=== PATIENT | male | born 1945 | race Caucasian/White ===

== ENCOUNTER → 2017-11-05 | Outpatient (CLI) | payer MEDICARE ==
[2017-11-05 09:14] LABS: Albumin 3.7 g/dL (3.5-5.0); Calcium 9.6 mg/dL (8.4-10.2); Potassium 4.8 mmol/L (3.5-5.1); Total Bilirubin 0.5 mg/dL (0.2-1.3); Total Protein 6.7 g/dL (6.3-8.2)
== END | disposition home or self-care (01) ==
LOC: LABWHC1 08:24
PROVIDERS: ATTEND Nurse Practitioner Family
DX: I50.9 Heart failure, unspecified (principal)
CPT/HCPCS: 36415; 80053; 83880

== ENCOUNTER → 2017-11-05 | Outpatient (CLI) | payer MEDICARE ==
[2017-11-05 09:05] LABS: Anisocytosis Slight; Basophils # (A) 0.1 k/uL (0-0.2); Basophils % (A) 1 %; Eosinophils # (A) 0.2 k/uL (0-0.7); Eosinophils % (A) 3 %; HCT 37.2 % (39.0-53.0); HGB 11.7 gm/dL (13.0-17.5); Hypochromasia Moderate; Lymphocytes # (A) 0.8 k/uL (1.0-4.8); Lymphocytes % (A) 13 %; MCH 28.3 pg (25.0-35.0); MCHC 31.3 g/dL (31.0-37.0); MCV 90.3 fL (80.0-100.0); Mean Platelet Volume 8.5; Monocytes # (A) 0.3 k/uL (0-1.0); Monocytes % (A) 6 %; Neutrophils # (A) 4.3 k/uL (1.3-7.7); Neutrophils % (A) 73 %; Platelet Count 254 k/uL (150-450); RBC 4.12 m/uL (4.30-5.90); RDW 17.9 % (11.5-15.5); WBC 5.8 k/uL (3.8-10.6)
== END | disposition home or self-care (01) ==
LOC: LABPAT 08:27
PROVIDERS: ATTEND Internal Medicine Cardiovascular Disease
DX: Z01.812 Encounter for preprocedural laboratory examination (principal); I50.9 Heart failure, unspecified; E78.2 Mixed hyperlipidemia
CPT/HCPCS: 85025

== ENCOUNTER 2017-11-09 07:42 | Day surgery (SDC) | payer MEDICARE ==
[2017-11-03 13:53] VITALS: BMI 24.0
[~2017-11-09 07:42] MED LIST: ALPRAZolam 0.25 MG TAB PO PRN; ASPIRIN 325 MG TAB PO ONE; SODIUM CHLORIDE 0.9% 1,000 ML in EMPTY BAG 1 BAG IV ONE
[2017-11-09 08:32] LABS: Glucose,Whole Blood 92 mg/dL (75-99)
[2017-11-09 08:34] VITALS: PULSE 94; RESP 20; TEMP 97.6
[2017-11-09] MEDS ORDERED: IV FLUID CONTINUATION 950 ML IV ONE (08:55)
[2017-11-09] MEDS ORDERED: MIDAZOLAM 2 MG/2 ML VIAL IVP ONE (09:20)
[2017-11-09] MEDS ORDERED: LIDOCAINE 1% INJ 10MG/ML (20 ML MDV) SQ ONE (09:21)
[2017-11-09] MEDS ORDERED: IOPAMIDOL-370 125ML BTL INJ ONE (09:39)
[2017-11-09] MEDS ORDERED: RX INFO: IV CONTRAST WAS GIVEN 1 EACH MISC MISCELLANE PRN (10:00)
[2017-11-09] MEDS ORDERED: FUROSEMIDE 10 MG/ML 4 ML VIAL IV STA (10:02)
--- NOTE | 2017-11-09 10:08 | CC ---
CARDIAC CATHETERIZATION REPORT DATE OF SERVICE: 11/09/2017. INDICATION: Ischemic cardiomyopathy with new onset congestive heart failure. PROCEDURE NOTE: After obtaining informed consent, left heart catheterization and coronary angiogram were performed via the right femoral artery using standard Esteban catheters. The patient tolerated the procedure well without any obvious immediate complications. A femoral angiogram was performed and decision was made for manual hemostasis. Patient received moderate conscious sedation and total sedation time was 15 minutes. FINDINGS: 1. HEMODYNAMICS: Left ventricular end-diastolic pressure is 31 mm. There is no significant gradient across the aortic valve. 2. LEFT VENTRICULOGRAM: Left ventriculogram is not performed. 3. ANGIOGRAPHIC DATA: Left main coronary artery: Left main coronary artery appears calcified. There is mild to moderate atherosclerotic plaque in the ostial portion. Divides into left anterior descending coronary artery and circumflex coronary artery. Circumflex coronary artery shows a 95% stenosis in the ostial portion. LAD is totally occluded just off to the origin of the large diagonal branch and the diagonal itself shows a 70% stenosis. Right coronary artery is a large dominant vessel that shows diffuse disease. As it bifurcates into PDA and PLV, there is a 70% stenosis and both the PDA and PLV have significant disease. All the vessels are irregular, ectatic, and in places aneurysmal. CONCLUSIONS: 1. Three-vessel coronary artery disease as described above. 2. Severe left ventricular systolic dysfunction based on the echocardiogram, and mitral regurgitation. PLAN: I am going to ask Dr. Borjas, the cardiothoracic surgeon, to evaluate the angiographic data and advise on bypass surgery. If he is a candidate for surgery, then I am going to perform a transesophageal echo to better evaluate the mitral valve. MMODL / IJN: [id number] /
[2017-11-09] MEDS ORDERED: SODIUM CHLORIDE 0.9% 1,000 ML IV SCH (10:45)
[2017-11-09] MEDS ORDERED: METOPROLOL SUCCINATE (ER) 50 MG TAB.ER.24H PO STA (11:04)
[2017-11-09 11:08] LABS: Glucose,Whole Blood 89 mg/dL (75-99)
[2017-11-09] MEDS ORDERED: ACETAMINOPHEN TAB 325 MG TAB PO STA (16:54)
[2017-11-09 17:41] VITALS: BP 124/82
== END 2017-11-09 17:10 | disposition home or self-care (01) ==
LOC: CATHCVL 07:42
PROVIDERS: ATTEND Internal Medicine Cardiovascular Disease
DX: I25.10 Atherosclerotic heart disease of native coronary artery without angina pectoris (principal); I25.84 Coronary atherosclerosis due to calcified coronary lesion; I25.82 Chronic total occlusion of coronary artery; I25.5 Ischemic cardiomyopathy; I34.0 Nonrheumatic mitral (valve) insufficiency; I50.20 Unspecified systolic (congestive) heart failure; Z87.891 Personal history of nicotine dependence; E78.2 Mixed hyperlipidemia; E13.319 Other specified diabetes mellitus with unspecified diabetic retinopathy without macular edema; H54.7 Unspecified visual loss; Z79.899 Other long term (current) drug therapy; Z88.1 Allergy status to other antibiotic agents
CPT/HCPCS: 93458; C1894; C1769; J2250; J1940; J2001; Q9967

== ENCOUNTER 2017-11-10 08:31 | Day surgery (SDC) | payer MEDICARE ==
[2017-11-10] MEDS ORDERED: IV FLUID CONTINUATION 400 ML IV ONE (09:48)
[2017-11-10] MEDS: BENZOCAINE SPRAY 1 CAN MUCOUS MEM ONE ×2 (09:49→09:54)
[2017-11-10] MEDS ORDERED: fentaNYL (PF) 50 MCG/ML 2 ML AMP IV ONE (09:54)
[2017-11-10] MEDS ORDERED: MIDAZOLAM 2 MG/2 ML VIAL IVP ONE (09:54)
[2017-11-10 10:00] LABS: Glucose,Whole Blood 121 mg/dL (75-99)
[2017-11-10] MEDS ORDERED: SODIUM CHLORIDE 0.9% 1,000 ML IV SCH (10:45)
--- NOTE | 2017-11-10 11:15 | ECHOT ---
TRANSESOPHAGEAL ECHOCARDIOGRAM INDICATION: Mitral regurgitation. PROCEDURE NOTE: After obtaining informed consent, transesophageal echocardiogram was performed in left lateral position using an Omni plane probe. Local and IV sedation were obtained, the Xylocaine spray and 1 mg of Versed and 50 mcg of fentanyl. Patient tolerated the procedure well without any obvious immediate complications. FINDINGS: 1. Mitral valve appears anatomically normal. Mitral anulus is dilated. There is poor coaptation of the mitral leaflets. There is moderate predominantly central mitral regurgitation. 2. Left atrium appears enlarged. 3. Right atrium and right ventricle appear mildly enlarged. 4. There is mild tricuspid regurgitation noted. 5. There is a moderate pulmonary hypertension noted. 6. Left ventricle appears dilated with aneurysmal basal inferior wall, severely hypokinetic inferior wall and the septum with mildly hypokinetic anterior wall, lateral wall is justus well. 7. Aorta shows moderate atherosclerotic changes. 8. Interatrial septum, there is no evidence of vsac-ex-ctmob shunt by color-flow Doppler or bemjq-kh-aymu shunt by agitated saline contrast study. CONCLUSION: 1. Ischemic cardiomyopathy with severe left ventricular systolic dysfunction. Inferior wall and the septum are akinetic. Anterior wall is hypokinetic. Lateral wall is justus normally. 2. Moderate central mitral regurgitation. 3. Moderate pulmonary hypertension. PLAN: I am going to ask Dr. Borajs to see the patient to decide on his bypass surgery with mitral valve repair. MMODL / IJN: [id number] /
[2017-11-10 12:21] VITALS: PULSE 84
[2017-11-10 14:52] LABS: Anisocytosis Slight; Basophils % (A) 0 %; Eosinophils % (A) 0 %; HCT 37.1 % (39.0-53.0); HGB 11.5 gm/dL (13.0-17.5); Hypochromasia Moderate; Lymphocytes # (A) 0.5 k/uL (1.0-4.8); Lymphocytes % (A) 6 %; MCH 27.7 pg (25.0-35.0); MCHC 30.9 g/dL (31.0-37.0); MCV 89.6 fL (80.0-100.0); Mean Platelet Volume 8.8; Monocytes # (A) 0.3 k/uL (0-1.0); Monocytes % (A) 4 %; Neutrophils # (A) 6.8 k/uL (1.3-7.7); Neutrophils % (A) 88 %; Platelet Count 218 k/uL (150-450); RBC 4.14 m/uL (4.30-5.90); RDW 17.8 % (11.5-15.5); WBC 7.8 k/uL (3.8-10.6)
[2017-11-10 14:59] LABS: INR 1.2 (<1.2); Partial Thromboplastin Time 25.2 sec (22.0-30.0); Prothrombin Time 11.4 sec (9.0-12.0)
[2017-11-10 15:10] LABS: ALT 28 U/L (21-72); AST 25 U/L (17-59); Albumin 3.6 g/dL (3.5-5.0); Alkaline Phosphatase 68 U/L (38-126); Anion Gap 9 mmol/L; Blood Urea Nitrogen 26 mg/dL (9-20); Carbon Dioxide 28 mmol/L (22-30); Chloride 103 mmol/L (98-107); Cholesterol 206 mg/dL (<200); Glucose 286 mg/dL (74-99); HDL Cholesterol 58 mg/dL (40-60); LDL Cholesterol,Calculated 136 mg/dL (0-99); Magnesium 1.6 mg/dL (1.6-2.3); Potassium 5.2 mmol/L (3.5-5.1); Sodium 140 mmol/L (137-145); Total Bilirubin 0.5 mg/dL (0.2-1.3); Total Protein 6.5 g/dL (6.3-8.2); Triglycerides 61 mg/dL (<150)
[2017-11-10 16:13] VITALS: BP 117/72
[2017-11-10 16:20] LABS: Appearance,Urine Clear (Clear); Bacteria,Urine Rare /hpf; Bilirubin,Urine Negative (Negative); Blood,Urine Small (Negative); Color,Urine Yellow; Glucose,Urine (UA) 3+ (Negative); Ketones,Urine Negative (Negative); Leukocyte Esterase,Urine Negative (Negative); Mucus,Urine Rare /hpf; Nitrite,Urine Negative (Negative); PH, Urine 5.5 (5.0-8.0); Protein,Urine 2+ (Negative); RBC,Urine 8 /hpf (0-5); Specific Gravity,Urine 1.026 (1.001-1.035); Urobilinogen,Urine <2.0 mg/dL (<2.0); WBC,Urine 2 /hpf (0-5)
--- NOTE | 2017-11-10 17:13 | P.GSCN ---
History of Present Illness Consult date: 11/10/17 Reason for Consult: Severe coronary artery disease, mitral regurgitation, surgical recommendations. Requesting physician: Billy Hogan History of present illness: This is a 72-year-old patient follows with Dr. Spann on an outpatient basis. He has a previous medical history of diabetes, hyperlipidemia, previous tobacco dependence and recent new onset congestive heart failure. He presented to his primary care physician's office with complaints of increasing shortness of breath with exertion which was relieved with rest as well as lower extremity edema. He denied any chest pain, palpitations, syncopal episodes, peripheral artery disease type symptoms, or stroke-like symptoms. This has been going on for approximately the last 6 months but has gotten progressively worse lately. Prior to this this patient was a very active gentleman. He was referred to Dr. Hogan from cardiology [facility] and was recommended to undergo heart catheterization and echocardiography. His catheterization completed yesterday demonstrated left anterior descending artery with total occlusion at the origin of the large diagonal branch with the diagonal artery demonstrating 70% stenosis , circumflex artery with 95% stenosis in the ostial portion, diffuse disease in the right coronary artery with 70% stenosis at the bifurcation of the PDA and PLV, both of which have significant disease. Transesophageal echocardiogram completed this morning demonstrated ischemic cardiomyopathy with severe left ventricular systolic dysfunction, akinetic inferior wall and septum, hypokinetic anterior wall, dilation the mitral annulus with poor coaptation of the mitral leaflets with moderate central mitral regurgitation, and moderate pulmonary hypertension. Due to the patient's symptoms and study results Dr. Borjas from cardiothoracic surgery was consulted regarding surgical recommendations. Review of Systems Review of systems was completed and was negative except as noted. - Cardiovascular Reports dyspnea on exertion, Reports leg edema, Reports paroxysmal nocturnal dyspnea, Reports shortness of breath Past Medical History Past Medical History: Coronary Artery Disease (CAD), Heart Failure, Diabetes Mellitus, Hyperlipidemia, Myocardial Infarction (CO) Last Myocardial Infarction Date:: PER ECHO POSS UNKNOWN DATE -CO History of Any Multi-Drug Resistant Organisms: None Reported Past Surgical History: Orthopedic Surgery Additional Past Surgical History / Comment(s): CORNEAL GRAFT LEFT EYE, LITHOTRIPSY , LEFT KNEE SURGERY-ARTHROSCOPIC Past Anesthesia/Blood Transfusion Reactions: No Reported Reaction Past Psychological History: No Psychological Hx Reported Smoking Status: Former smoker Past Alcohol Use History: None Reported Past Drug Use History: None Reported - Past Family History Mother Family Medical History: No Reported History Medications and Allergies Home Medications Medication Instructions Recorded Confirmed Type Atorvastatin [Lipitor] 10 mg PO DAILY 11/03/17 11/10/17 History Erythromycin Ophth Oint [Romycin 1 applic LEFT EYE HS 11/03/17 11/10/17 History Ophth Oint] Gatifloxacin/Prednisolone 1 drop LEFT EYE HS 11/03/17 11/10/17 History [prednisoLONE 1%-Gatiflox 0.5%] Glucosamine/MSM/Chrond/D3/Bosw 1 each PO DAILY 11/03/17 11/10/17 History [Xvobqspwxhp-Slnhoa-KJI-D3 Cplt] Lisinopril [Zestril] 5 mg PO 1500 11/03/17 11/10/17 History Multivitamin [Men's Multi-Vitamin] 1 each PO DAILY 11/03/17 11/10/17 History Naproxen Sodium [Aleve] 440 mg PO DAILY 11/03/17 11/10/17 History diphenhydrAMINE [Benadryl] 25 mg PO DAILY 11/03/17 11/10/17 History Furosemide [Lasix] 40 mg PO DAILY #30 tablet 11/09/17 11/10/17 Rx Metoprolol Succinate (ER) [Toprol 50 mg PO DAILY #30 tab 11/09/17 11/10/17 Rx Xl] glipiZIDE XL [Glucotrol Xl] 5 mg PO DAILY #2 tab 11/09/17 11/10/17 Rx Allergies Allergy/AdvReac Type Severity Reaction Status Date / Time clindamycin Allergy Rash/Hives Verified 11/03/17 13:27 Surgical - Exam Vital Signs Pulse BP Pulse Ox 97 150/89 95 11/10/17 09:30 11/10/17 09:30 11/10/17 09:30 - General well developed, well nourished, no distress, no pain - Eyes Right pupil round, reactive to light and accommodation. Left eye with corneal graft. normal ocular movement left: surgical pupil - ENT no hearing loss - Neck no masses, no bruits, trachea midline - Respiratory Lungs sounds clear bilaterally. Respirations even, nonlabored. Currently on room air with oxygen saturation 94%. No chest wall deformities. - Cardiovascular S1, S2 present. Regular rate and rhythm, sinus rhythm on telemetry. Palpable peripheral pulses bilaterally. No edema present. No calf pain or tenderness noted. No varicosities. - Abdomen Abdomen: soft, non tender, bowel sounds - Genitourinary Deferred - Rectum Deferred - Integumentary no rash, no growths - Neurologic normal coordination, normal sensation - Musculoskeletal normal gait, normal posture - Psychiatric oriented to time, oriented to person, oriented to place, speech is normal, memory intact Results - Labs 11/10/17 14:36 11/10/17 14:36 Abnormal Lab Results - Last 24 Hours (Table) 11/10/17 11/10/17 11/10/17 Range/Units 09:30 14:36 14:36 RBC 4.14 L (4.30-5.90) m/uL Hgb 11.5 L (13.0-17.5) gm/dL Hct 37.1 L (39.0-53.0) % MCHC 30.9 L (31.0-37.0) g/dL RDW 17.8 H (11.5-15.5) % Lymphocytes # 0.5 L (1.0-4.8) k/uL INR 1.2 H (<1.2) Potassium (3.5-5.1) mmol/L BUN (9-20) mg/dL Glucose (74-99) mg/dL POC Glucose (mg/dL) 121 H (75-99) mg/dL Cholesterol (<200) mg/dL LDL Cholesterol, Calc (0-99) mg/dL Urine Protein (Negative) Urine Glucose (UA) (Negative) Urine Blood (Negative) Urine RBC (0-5) /hpf Urine Bacteria (None) /hpf Urine Mucus (None) /hpf Crossmatch 11/10/17 11/10/17 11/10/17 Range/Units 14:36 14:36 16:00 RBC (4.30-5.90) m/uL Hgb (13.0-17.5) gm/dL Hct (39.0-53.0) % MCHC (31.0-37.0) g/dL RDW (11.5-15.5) % Lymphocytes # (1.0-4.8) k/uL INR (<1.2) Potassium 5.2 H (3.5-5.1) mmol/L BUN 26 H (9-20) mg/dL Glucose 286 H (74-99) mg/dL POC Glucose (mg/dL) (75-99) mg/dL Cholesterol 206 H (<200) mg/dL LDL Cholesterol, Calc 136 H (0-99) mg/dL Urine Protein 2+ H (Negative) Urine Glucose (UA) 3+ H (Negative) Urine Blood Small H (Negative) Urine RBC 8 H (0-5) /hpf Urine Bacteria Rare H (None) /hpf Urine Mucus Rare H (None) /hpf Crossmatch See Detail Diabetes panel 11/10/17 Range/Units 14:36 Sodium 140 (137-145) mmol/L Potassium 5.2 H (3.5-5.1) mmol/L Chloride 103 (98-107) mmol/L Carbon Dioxide 28 (22-30) mmol/L BUN 26 H (9-20) mg/dL Creatinine 0.90 (0.66-1.25) mg/dL Glucose 286 H (74-99) mg/dL Calcium 9.0 (8.4-10.2) mg/dL AST 25 (17-59) U/L ALT 28 (21-72) U/L Alkaline Phosphatase 68 (38-126) U/L Total Protein 6.5 (6.3-8.2) g/dL Albumin 3.6 (3.5-5.0) g/dL Triglycerides 61 (<150) mg/dL HDL Cholesterol 58 (40-60) mg/dL Thyroid panel 11/10/17 Range/Units 14:36 TSH 1.690 (0.465-4.680) mIU/L Calcium panel 11/10/17 Range/Units 14:36 Calcium 9.0 (8.4-10.2) mg/dL Albumin 3.6 (3.5-5.0) g/dL Pituitary panel 11/10/17 Range/Units 14:36 Sodium 140 (137-145) mmol/L Potassium 5.2 H (3.5-5.1) mmol/L Chloride 103 (98-107) mmol/L Carbon Dioxide 28 (22-30) mmol/L BUN 26 H (9-20) mg/dL Creatinine 0.90 (0.66-1.25) mg/dL Glucose 286 H (74-99) mg/dL Calcium 9.0 (8.4-10.2) mg/dL TSH 1.690 (0.465-4.680) mIU/L Adrenal panel 11/10/17 Range/Units 14:36 Sodium 140 (137-145) mmol/L Potassium 5.2 H (3.5-5.1) mmol/L Chloride 103 (98-107) mmol/L Carbon Dioxide 28 (22-30) mmol/L BUN 26 H (9-20) mg/dL Creatinine 0.90 (0.66-1.25) mg/dL Glucose 286 H (74-99) mg/dL Calcium 9.0 (8.4-10.2) mg/dL Total Bilirubin 0.5 (0.2-1.3) mg/dL AST 25 (17-59) U/L ALT 28 (21-72) U/L Alkaline Phosphatase 68 (38-126) U/L Total Protein 6.5 (6.3-8.2) g/dL Albumin 3.6 (3.5-5.0) g/dL - Imaging Chest x-ray: image reviewed Additional studies: Heart catheterization and echocardiogram films reviewed. Assessment and Plan (1) Diabetes mellitus Current Visit: Yes Status: Chronic Code(s): E11.9 - TYPE 2 DIABETES MELLITUS WITHOUT COMPLICATIONS SNOMED Code(s): 47036884 (2) Hyperlipidemia Current Visit: Yes Status: Chronic Code(s): E78.5 - HYPERLIPIDEMIA, UNSPECIFIED SNOMED Code(s): 66437525 (3) Tobacco dependence in remission Current Visit: No Status: Resolved Code(s): F17.201 - NICOTINE DEPENDENCE, UNSPECIFIED, IN REMISSION SNOMED Code(s): 178613791 (4) Coronary artery disease Current Visit: Yes Status: Chronic Code(s): I25.10 - ATHSCL HEART DISEASE OF TRIBE CORONARY ARTERY W/O ANG PCTRS SNOMED Code(s): 02028899 (5) History of myocardial infarction Current Visit: No Status: Resolved Code(s): I25.2 - OLD MYOCARDIAL INFARCTION SNOMED Code(s): 440172730 (6) Mitral regurgitation Current Visit: Yes Status: Chronic Code(s): I34.0 - NONRHEUMATIC MITRAL ( VALVE) INSUFFICIENCY SNOMED Code(s): 35364453 Plan: The patient was seen and examined at the bedside. Chart/diagnostics were reviewed. Heart catheterization films and echocardiogram films reviewed with Dr. Borjas. Preoperative teaching initiated. Preoperative testing initiated. We recommend aspirin, statin, beta michelle with an increase in his statin dose to 40 mg daily. He may to be discharged to home from the extended stay unit. If possible we would like him to obtain dental clearance. Our plan is for coronary artery bypass grafting surgery, mitral valve repair, and exclusion of the left atrial appendage on November 17 pending the outcome of preoperative testing. Patient will be admitted one day prior by cardiology for placement of preoperative intra-aortic balloon pump. This plan was discussed with the patient and his and they are in agreement. All risks and benefits were explained in detail, all questions were answered, and the patient did consent to surgery. Thank you Dr. Hogan for this consult. We look forward to working with you in the care of your patient. Time with Patient: Greater than 30
--- NOTE | 2017-11-10 17:18 | US ---
EXAMINATION TYPE: US carotid duplex BILAT DATE OF EXAM: 11/10/2017 COMPARISON: NONE CLINICAL HISTORY: 72-year-old male preop cardiac surgery. TECHNIQUE: Carotid duplex ultrasound examination. Indirect Doppler criteria is utilized. FINDINGS: EXAM MEASUREMENTS: RIGHT: Peak Systolic Velocity (PSV) cm/sec ----- Right CCA: 65.0 ----- Right ICA: 63.6 ----- Right ECA: 92.1 ICA/CCA ratio: 1.0 RIGHT: End Diastole cm/sec ----- Right CCA: 17.5 ----- Right ICA: 19.8 ----- Right ECA: 6.2 LEFT: Peak Systolic Velocity (PSV) cm/sec ----- Left CCA: 63.0 ----- Left ICA: 57.6 ----- Left ECA: 106.6 ICA/CCA ratio: 1.0 LEFT: End Diastole cm/sec ----- Left CCA: 14.9 ----- Left ICA: 24.5 ----- Left ECA:9.5 VERTEBRALS (direction of flow): Right Vertebral: to-fro flow Left Vertebral: Antegrade Rhythm: Normal Billing Assistant notes: Mild plaque, no significant velocity elevations. IMPRESSION: 1. No hemodynamically significant stenosis appreciated in either internal carotid artery. 2. Note, to and fro flow within the right vertebral artery. This finding has been described as a michela festation of subclavian steal physiology prior to continuous flow reversal. Consider further clinical workup. Criteria for Assigning % of Stenosis / Diameter reduction (Estimation based on the indirect measurements of the internal carotid artery velocities (ICA PSV). 1. Normal (no stenosis)=ICA PSV < 125 cm/s: ratio < 2.0: ICA EDV<40 cm/s. 2. Less than 50% stenosis=ICA PSV < 125 cm/s: ratio < 2.0: ICA EDV<40 cm/s. 3. 50 to 69% stenosis=ICA PSV of 125 to 230 cm/s: ration 2.0 ? 4.0: ICA EDV 40-100 cm/s. 4. Greater than 70% stenosis to near occlusion= ICA PSV > 230 cm/s: ratio > 4.0: ICA EDV > 100 cm/s. 5. Near occlusion= ICA PSV velocities may be low or undetectable: variable ratio and ICA EDV. 6. Total occlusion=unable to detect flow.
[2017-11-10 19:40] LABS: Hepatitis A Antibody IgM Non-Reactive (Non-Reactive); Hepatitis B Core IgM Non-Reactive (Non-Reactive)
[2017-11-10 20:15] LABS: Hemoglobin A1C 6.5 % (4.0-6.0)
[2017-11-10] MEDS ORDERED: MUPIROCIN 2% OINT 22 GM TUBE NASAL SCH (21:00)
--- NOTE | 2017-11-10 23:42 | XR ---
EXAMINATION TYPE: XR chest 2V DATE OF EXAM: 11/10/2017 COMPARISON: NONE HISTORY: Pre open cardiac surgery TECHNIQUE: Frontal and lateral views of the chest are obtained. FINDINGS: There are small to moderate-sized right greater than left pleural effusions with associate d compressive atelectasis. The cardiac silhouette size is difficult to assess due to silhouetting of heart borders but presumed mildly enlarged. The osseous structures are intact. IMPRESSION: Presumed mild cardiomegaly with small to moderate-sized right greater than left pleural effusions and associated compressive atelectasis.
--- NOTE | 2017-11-16 11:21 | P.VSCSTY ---
Greater Saphenous Vein Mapping This is bilateral lower extremity greater saphenous vein mapping. Date of service 11/10/2017 Vein quality and ultrasound appearance some intimal thickening seen throughout on the right. Also noted on the lower leg on the left.. Vein size groin right 6.5 x 5.2 groin left 7.0 x 4.2 High thigh right 5.0 x 3.6 high thigh left 4.8 x 3.4 Mid thigh right 4.7 x 3.4 mid thigh left 4.4 x 3.5 Above-knee right 3.9 x 2.5 above- knee left 4.8 x 3.0 Below knee right 3.2 x 2.3 below-knee left 4.7 x 3.2 Mid calf right 2.7 x 1.9 mid calf left 3.0 x 2.0 Ankle right 2.1 x 1.5 ankle left 2.8 x 2.2 Impression the right leg is usable at the knee and above. Some intimal thickening in both the lower leg on the left and the saphenous vein throughout on the right makes previous phlebitic changes an issue. Decisions will be made on the appearance of the vein at the time of surgery. We'll certainly preferentially use the left thigh..
== END 2017-11-10 17:00 | disposition home or self-care (01) ==
LOC: CATHCVL 08:31
PROVIDERS: ATTEND Internal Medicine Cardiovascular Disease
DX: I25.5 Ischemic cardiomyopathy (principal); I34.0 Nonrheumatic mitral (valve) insufficiency; I50.9 Heart failure, unspecified; I27.20 Pulmonary hypertension, unspecified; J90 Pleural effusion, not elsewhere classified; J98.11 Atelectasis; R06.02 Shortness of breath; I25.10 Atherosclerotic heart disease of native coronary artery without angina pectoris; E78.2 Mixed hyperlipidemia; E11.319 Type 2 diabetes mellitus with unspecified diabetic retinopathy without macular edema; H54.62 Unqualified visual loss, left eye, normal vision right eye; I25.2 Old myocardial infarction; Z79.84 Long term (current) use of oral hypoglycemic drugs; Z79.899 Other long term (current) drug therapy; Z79.1 Long term (current) use of non-steroidal anti-inflammatories (NSAID); Z88.1 Allergy status to other antibiotic agents; Z87.891 Personal history of nicotine dependence
CPT/HCPCS: 94150; 93312; 93320; 93325; 80061; 80053; 80074; 84443; 83735; 85025; 85610; 85730; 81001; 87070; 87086; 83036; 71046; 93970; 93880; J2250; J3010; 86850; 86900; 86901; 86920

== ENCOUNTER 2017-11-16 07:31 | Inpatient (IN) | payer MEDICARE ==
[~2017-11-16 07:31] MED LIST changes: +ALPRAZolam 0.5 MG TAB PO PRN; -ASPIRIN 325 MG TAB PO ONE; +ASPIRIN 325 MG TAB PO STA; +ATORVASTATIN 80 MG TAB PO STA; +NITROGLYCERIN SL TABS 0.4 MG TAB SUBLINGUAL PRN
[2017-11-16 08:00] LABS: Glucose,Whole Blood 83 mg/dL (75-99)
[2017-11-16] MEDS ORDERED: LIDOCAINE 1% INJ 10MG/ML (20 ML MDV) ONE ×2 (08:49→09:40)
[2017-11-16] MEDS ORDERED: MIDAZOLAM 2 MG/2 ML VIAL ONE (08:49)
[2017-11-16] MEDS ORDERED: MIDAZOLAM 2 MG/2 ML VIAL IVP ONE (09:16)
[2017-11-16] MEDS ORDERED: LIDOCAINE 1% INJ 10MG/ML (20 ML MDV) SQ ONE (09:16)
[2017-11-16] MEDS ORDERED: HEPARIN SODIUM 1,000 UN/ML (10ML VL) ONE (09:19)
[2017-11-16] MEDS ORDERED: HEPARIN SOD,PORK IN 0.45% NACL 25,000 UNIT in 0.45% NACL 1 500ML.BAG IV ONE (09:32)
[2017-11-16] MEDS ORDERED: RX INFO: IV CONTRAST WAS GIVEN 1 EACH MISC MISCELLANE PRN (09:49)
[2017-11-16] MEDS: HEPARIN SOD,PORK IN 0.45% NACL 25,000 UNIT in 0.45% NACL 1 500ML.BAG IV SCH (10:15)
[2017-11-16] MEDS ORDERED: HEPARIN SODIUM,PORCINE 5,000 UNIT/ML 1 ML VIAL IV PRN (10:25)
--- NOTE | 2017-11-16 10:47 | PCN ---
PROCEDURE NOTE INTRA-AORTIC BALLOON PUMP PROCEDURE: INDICATION: 1. Ischemic cardiomyopathy with severe LV dysfunction. 2. Three-vessel coronary artery disease, prior to bypass surgery. PROCEDURE NOTE: Patient initially presented to us with ischemic cardiomyopathy with congestive heart failure, underwent cardiac catheterization that revealed 3-vessel coronary artery disease and severe mitral regurgitation. He was evaluated by Dr. Borjas the cardiothoracic surgeon who wanted an intra-aortic balloon pump done electively prior to bypass surgery. The patient and his have been explained of risks, benefits and alternatives, including the risk of vascular injury, stroke, renal failure, and aortic dissection. They have understood and accepted. After obtaining informed consent, intra-aortic balloon pump was done via the right femoral artery. Initially the vascular access was obtained using modified Seldinger technique. We have used a 6-Indonesian and 7-Indonesian dilator and subsequently placed the sheath in. The intra-aortic balloon pump was floated retrogradely under fluoroscopic guidance. The proximal and distal ends of the balloon were appropriately placed under fluoro. Balloon was inflated and was set for one-to-one balloon support. The patient was anticoagulated with intravenous heparin. He will be admitted to ICU and will undergo bypass surgery tomorrow. Patient received moderate conscious sedation. The total sedation time was 19 minutes. KATH / IJN: [id number] /
[2017-11-16] MEDS ORDERED: MD COMMUNICATION TO PHARMACY 1 EACH MISC PO ONE ×4 (10:55)
[2017-11-16 11:15] LABS: INR 1.2 (<1.2); Partial Thromboplastin Time 86.9 sec (22.0-30.0); Prothrombin Time 11.7 sec (9.0-12.0)
[2017-11-16 11:41] LABS: Anisocytosis Slight; HCT 34.4 % (39.0-53.0); HGB 10.7 gm/dL (13.0-17.5); Hypochromasia Slight; MCH 27.9 pg (25.0-35.0); MCHC 31.3 g/dL (31.0-37.0); MCV 89.1 fL (80.0-100.0); Mean Platelet Volume 8.6; Platelet Count 213 k/uL (150-450); RBC 3.86 m/uL (4.30-5.90); RDW 17.3 % (11.5-15.5); WBC 5.2 k/uL (3.8-10.6)
[2017-11-16] MEDS: SODIUM CHLORIDE 0.9% 1,000 ML IV SCH (12:00)
[2017-11-16 12:33] LABS: Lymphocytes # (M) 0.62 k/uL (1.0-4.8); Monocytes # (M) 0.47 k/uL (0-1.0); Neutrophils % (M) 77 %; Nucleated Red Blood Cells 0 /100 WBC (0-0); Total Cells Counted 100
[2017-11-16 12:34] LABS: Ovalocytes Present
[2017-11-16 12:57] LABS: ALT 39 U/L (21-72); AST 37 U/L (17-59); Albumin 3.5 g/dL (3.5-5.0); Alkaline Phosphatase 110 U/L (38-126); Anion Gap 8 mmol/L; Blood Urea Nitrogen 26 mg/dL (9-20); Calcium 8.6 mg/dL (8.4-10.2); Carbon Dioxide 26 mmol/L (22-30); Chloride 108 mmol/L (98-107); Glucose 100 mg/dL (74-99); Potassium 4.4 mmol/L (3.5-5.1); Sodium 142 mmol/L (137-145); Total Bilirubin 0.5 mg/dL (0.2-1.3); Total Protein 6.4 g/dL (6.3-8.2)
[2017-11-16] MEDS: INSULIN ASPART 100 UNIT/ML 1 ML 10 ML VIAL SQ SCH ×3 (13:06→21:16)
[2017-11-16 13:27] LABS: Appearance,Urine Clear (Clear); Bilirubin,Urine Negative (Negative); Blood,Urine Trace (Negative); Color,Urine Yellow; Glucose,Urine (UA) Negative (Negative); Ketones,Urine Trace (Negative); Leukocyte Esterase,Urine Negative (Negative); Mucus,Urine Rare /hpf; Nitrite,Urine Negative (Negative); PH, Urine 6.5 (5.0-8.0); Protein,Urine 2+ (Negative); RBC,Urine 3 /hpf (0-5); Specific Gravity,Urine 1.016 (1.001-1.035); Urobilinogen,Urine <2.0 mg/dL (<2.0); WBC,Urine 2 /hpf (0-5)
[2017-11-16] MEDS: MUPIROCIN 2% OINT 22 GM TUBE NASAL SCH ×2 (14:46→21:14)
[2017-11-16] MEDS: METOPROLOL SUCCINATE (ER) 50 MG TAB.ER.24H PO SCH (14:47)
--- NOTE | 2017-11-16 14:53 | P.CNPUL ---
History of Present Illness Consult date: 11/16/17 Requesting physician: Lanie Borjas Reason for consult: dyspnea Chief complaint: Dyspnea, coronary artery disease, mitral valve regurgitation History of present illness: Mr. Silva is a 72-year-old white male patient of Dr. Wong, who presented today on 11/16/2017 for elective placement of intra-aortic balloon pump in preparation for three-vessel coronary artery bypass graft surgery and mitral valve repair for severe mitral valve insufficiency and ischemic cardiomyopathy with severely impaired systolic dysfunction. Surgery is scheduled for tomorrow 11/17/[address] Borjas. Patient has been having progressive exertional dyspnea for the last 2 years, and last 3 months patient started experiencing severe limitation of his exercise capacity, becoming quite dyspneic while climbing a flight of stairs. Patient denied any chest pain, palpitations, syncopal episodes. Patient started experiencing bilateral lower extremity edema , and he presented to his PCP for evaluation of his symptoms. Patient has been quite active in sports during his lifetime, in swimming and running. 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 Does not have any chronic pulmonary conditions, has a remote history of smoking, quit 40 years ago , smoked a pack a day for about 5 years. No marijuana use, no EtOH, or recreational drugs. 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 Patient had a heart catheterization on 11/09/2017 which showed calcification of left main coronary artery, with mild to moderate atherosclerotic plaque in the ostial portion, circumflex with a 95% stenosis, complete occlusion of the LAD just off to the origin of the large diagonal branch, and 70% stenosis of the diagonal branch. Diffuse disease in the RCA, with a 70% stenosis at the bifurcation into PDA and PLV, and significant disease in the PDA and PLV. All the vessels were noted to be irregular, ectatic and in places aneurysmal. LVEDP was 31 mm, without significant gradient across the aortic valve. PILAR on 11/10/2017 showed ischemic cardiomyopathy with severe left ventricular systolic dysfunction, akinetic inferior wall and the septum, hypokinetic anterior wall. Moderate pulmonary hypertension and moderate mitral regurgitation. Patient was recommended surgical intervention for his symptoms, and he opted for three- vessel coronary artery bypass grafting and mitral valve repair tomorrow. Bedside spirometry was reviewed and showed FEV1 of 1.35 L or 43% of predicted, FVC of 1.65 L or 38% of predicted, consistent with severe restriction. Preop chest x-ray from 11/10/2017 showed mild cardiomegaly with small to moderate- sized right greater than the left pleural effusions and associated compressive atelectasis. Patient is seen in the intensive care, resting in bed, room air pulse ox is 92-97%, he denies any dyspnea, he is afebrile, intra-aortic balloon pump is in place, via right femoral artery. He is currently on 1:1 IABP frequency, with augmented diastolic pressure of 131 mmHg. Distal pulses are intact, sensory status is intact. Fong catheter is in place, patient is nonoliguric. Radial pulses are intact. Patient is on heparin drip at 12 u/kg/ hr. No other drips. He is on oral Lasix at 40 mg daily. Currently resting in bed, in no acute distress. Review of Systems All systems: negative Constitutional: Denies chills, Denies fever Eyes: left decreased vision, denies blurred vision, denies pain Ears, nose, mouth and throat: Denies headache, Denies sore throat Cardiovascular: Denies chest pain, Denies shortness of breath Respiratory: Reports dyspnea, Denies cough Gastrointestinal: Denies abdominal pain, Denies diarrhea, Denies nausea, Denies vomiting Musculoskeletal: Denies myalgias Integumentary: Denies pruritus, Denies rash Neurological: Denies numbness, Denies weakness Psychiatric: Denies anxiety, Denies depression Endocrine: Denies fatigue, Denies weight change Past Medical History Past Medical History: Coronary Artery Disease (CAD), Heart Failure, Diabetes Mellitus, Hyperlipidemia, Myocardial Infarction ([place]) Additional Past Medical History / Comment(s): mitral valve regurgitation Last Myocardial Infarction Date:: PER ECHO POSS UNKNOWN DATE -NM History of Any Multi-Drug Resistant Organisms: None Reported Past Surgical History: Heart Catheterization, Orthopedic Surgery Additional Past Surgical History / Comment(s): CORNEAL GRAFT LEFT EYE, LITHOTRIPSY , LEFT KNEE SURGERY-ARTHROSCOPIC Past Anesthesia/Blood Transfusion Reactions: No Reported Reaction Additional Past Anesthesia/Blood Transfusion Reaction / Comment(s): no hx of blood transfusion Smoking Status: Former smoker - Past Family History Mother Family Medical History: No Reported History Medications and Allergies Home Medications Medication Instructions Recorded Confirmed Type Atorvastatin [Lipitor] 40 mg PO HS 11/03/17 11/16/17 History Erythromycin Ophth Oint [Romycin 1 applic LEFT EYE HS 11/03/17 11/16/17 History Ophth Oint] Gatifloxacin/Prednisolone 1 drop LEFT EYE HS 11/03/17 11/16/17 History [prednisoLONE 1%-Gatiflox 0.5%] Glucosamine/MSM/Chrond/D3/Bosw 1 tab PO DAILY 11/03/17 11/16/17 History [Pbtyjmftttm-Zjuyhz-XYR-D3 Cplt] Lisinopril [Zestril] 5 mg PO DAILY@1500 11/03/17 11/16/17 History Multivitamin [Men's Multi-Vitamin] 1 tab PO DAILY 11/03/17 11/16/17 History Naproxen Sodium [Aleve] 440 mg PO DAILY 11/03/17 11/16/17 History diphenhydrAMINE [Benadryl] 25 mg PO DAILY PRN 11/03/17 11/16/17 History Furosemide [Lasix] 40 mg PO DAILY #30 tablet 11/09/17 11/16/17 Rx Metoprolol Succinate (ER) [Toprol 50 mg PO DAILY@1500 11/15/17 11/16/17 History Xl] Mupirocin 2% Nasal Oint [Bactroban 1 applic NASAL BID 11/15/17 11/16/17 History 2% Nasal Oint] metFORMIN HCL 1,000 mg PO W/SUPPER 11/15/17 11/16/17 History metFORMIN HCL [Glucophage] 500 mg PO BID 11/15/17 11/16/17 History Allergies Allergy/AdvReac Type Severity Reaction Status Date / Time clindamycin Allergy Rash/Hives Verified 11/16/17 10:28 Physical Exam Vitals: Vital Signs Temp Pulse Pulse Pulse Resp BP BP 11/16/17 13:00 84 30 H 131/64 11/16/17 12:30 85 22 145/79 11/16/17 12:00 98.0 F 83 29 H 153/66 11/16/17 11:45 82 24 133/75 11/16/17 11:30 81 22 133/62 11/16/17 11:15 78 27 H 125/75 11/16/17 11:10 81 15 11/16/17 11:00 83 24 127/68 11/16/17 10:45 83 20 139/84 11/16/17 10:30 81 32 H 108/65 11/16/17 10:15 98.2 F 81 11/16/17 08:04 97.6 F 88 18 124/84 BP Pulse Ox 11/16/17 13:00 92 L 11/16/17 12:30 97 11/16/17 12:00 97 11/16/17 11:45 96 11/16/17 11:30 97 11/16/17 11:15 94 L 11/16/17 11:10 11/16/17 11:00 94 L 11/16/17 10:45 96 11/16/17 10:30 91 L 11/16/17 10:15 92 L 11/16/17 08:04 122/78 95 Intake and Output 11/15/17 11/16/17 11/16/17 22:59 06:59 14:59 Intake Total 289 Output Total 175 Balance 114 Intake: IV 289 Heparin Sod,Pork in 0.45% 54 NaCl 25,000 unit In 0.45 % NaCl 1 500ml.bag @ 12 UNITS/KG/HR 18.28 mls/hr IV .Q24H JANNA Rx#: [id number] Sodium Chloride 0.9% 1, 75 000 ml @ 75 mls/hr IV . [id number] JANNA Rx#: [id number] Output: Urine 175 Other: Voiding Method Indwelling Catheter Weight 76.2 kg - Constitutional Pleasant, 72-year-old white male, resting in bed in the intensive care, in no acute distress. General appearance: no acute distress, thin - EENT Eyes: PERRLA ENT: NA/AT, normal oropharynx Ears: bilateral: normal - Neck Neck: no lymphadenopathy, normal ROM Carotids: bilateral: upstroke normal Thyroid: bilateral: normal size - Respiratory Respiratory: bilateral: diminished (At the bases) - Cardiovascular Rhythm: regular Heart sounds: normal: S1, S2 Abnormal Heart Sounds: systolic murmur systolic murmur (1) Location: apex Results - Laboratory Findings CBC and BMP: 11/16/17 10:52 11/16/17 10:52 PT/INR, D-dimer PT 11.7 sec (9.0-12.0) 11/16/17 10:52 INR 1.2 (<1.2) H 11/16/17 10:52 Abnormal lab findings: Abnormal Labs 11/10/17 11/16/17 11/16/17 14:36 10:52 10:52 RBC 3.86 L Hgb 10.7 L Hct 34.4 L RDW 17.3 H Lymphocytes # (Manual) 0.62 L INR 1.2 H APTT 86.9 H Chloride BUN Glucose Urine Protein Urine Ketones Urine Blood Urine Mucus Crossmatch See Detail 11/16/17 11/16/17 10:52 13:00 RBC Hgb Hct RDW Lymphocytes # (Manual) INR APTT Chloride 108 H BUN 26 H Glucose 100 H Urine Protein 2+ H Urine Ketones Trace H Urine Blood Trace H Urine Mucus Rare H Crossmatch
--- NOTE | 2017-11-16 14:59 | P.CNPUL ---
History of Present Illness Consult date: 11/16/17 Requesting physician: Lanie Borjas Reason for consult: dyspnea Chief complaint: Dyspnea, coronary artery disease, mitral valve regurgitation History of present illness: Mr. Silva is a 72-year-old white male patient of Dr. Wong, who presented today on 11/16/2017 for elective placement of intra-aortic balloon pump in preparation for three-vessel coronary artery bypass graft surgery and mitral valve repair for severe mitral valve insufficiency and ischemic cardiomyopathy with severely impaired systolic dysfunction. Surgery is scheduled for tomorrow 11/17/[address] Borjas. Patient has been having progressive exertional dyspnea for the last 2 years, and last 3 months patient started experiencing severe limitation of his exercise capacity, becoming quite dyspneic while climbing a flight of stairs. Patient denied any chest pain, palpitations, syncopal episodes. Patient started experiencing bilateral lower extremity edema , and he presented to his PCP for evaluation of his symptoms. Patient has been quite active in sports during his lifetime, in swimming and running. 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 Does not have any chronic pulmonary conditions, has a remote history of smoking, quit 40 years ago , smoked a pack a day for about 5 years. No marijuana use, no EtOH, or recreational drugs. 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 Patient had a heart catheterization on 11/09/2017 which showed calcification of left main coronary artery, with mild to moderate atherosclerotic plaque in the ostial portion, circumflex with a 95% stenosis, complete occlusion of the LAD just off to the origin of the large diagonal branch, and 70% stenosis of the diagonal branch. Diffuse disease in the RCA, with a 70% stenosis at the bifurcation into PDA and PLV, and significant disease in the PDA and PLV. All the vessels were noted to be irregular, ectatic and in places aneurysmal. LVEDP was 31 mm, without significant gradient across the aortic valve. PILAR on 11/10/2017 showed ischemic cardiomyopathy with severe left ventricular systolic dysfunction, akinetic inferior wall and the septum, hypokinetic anterior wall. Moderate pulmonary hypertension and moderate mitral regurgitation. Patient was recommended surgical intervention for his symptoms, and he opted for three- vessel coronary artery bypass grafting and mitral valve repair tomorrow. Bedside spirometry was reviewed and showed FEV1 of 1.35 L or 43% of predicted, FVC of 1.65 L or 38% of predicted, consistent with severe restriction. Preop chest x-ray from 11/10/2017 showed mild cardiomegaly with small to moderate- sized right greater than the left pleural effusions and associated compressive atelectasis. Patient is seen in the intensive care, resting in bed, room air pulse ox is 92-97%, he denies any dyspnea, he is afebrile, intra-aortic balloon pump is in place, via right femoral artery. He is currently on 1:1 IABP frequency, with augmented diastolic pressure of 131 mmHg. Distal pulses are intact, sensory status is intact. Fong catheter is in place, patient is nonoliguric. Radial pulses are intact. Patient is on heparin drip at 12 u/kg/ hr. No other drips. He is on oral Lasix at 40 mg daily. Currently resting in bed, in no acute distress. Review of Systems All systems: negative Constitutional: Denies chills, Denies fever Eyes: denies blurred vision, denies pain Ears, nose, mouth and throat: Denies headache, Denies sore throat Cardiovascular: Denies chest pain, Denies shortness of breath Respiratory: Reports dyspnea, Denies cough Gastrointestinal: Denies abdominal pain, Denies diarrhea, Denies nausea, Denies vomiting Musculoskeletal: Denies myalgias Integumentary: Denies pruritus, Denies rash Neurological: Denies numbness, Denies weakness Psychiatric: Denies anxiety, Denies depression Endocrine: Denies fatigue, Denies weight change Past Medical History Past Medical History: Coronary Artery Disease (CAD), Heart Failure, Diabetes Mellitus, Hyperlipidemia, Myocardial Infarction ([place]) Additional Past Medical History / Comment(s): mitral valve regurgitation Last Myocardial Infarction Date:: PER ECHO POSS UNKNOWN DATE -IA History of Any Multi-Drug Resistant Organisms: None Reported Past Surgical History: Heart Catheterization, Orthopedic Surgery Additional Past Surgical History / Comment(s): CORNEAL GRAFT LEFT EYE, LITHOTRIPSY , LEFT KNEE SURGERY-ARTHROSCOPIC Past Anesthesia/Blood Transfusion Reactions: No Reported Reaction Additional Past Anesthesia/Blood Transfusion Reaction / Comment(s): no hx of blood transfusion Smoking Status: Former smoker - Past Family History Mother History Unknown: Yes ( at age 86 secondary to traumatic brain concussion bleed) Family Medical History: No Reported History Father Family Medical History: Coronary Artery Disease (CAD) ( at 83) Brother(s) Family Medical History: No Reported History Sister(s) Family Medical History: No Reported History (One brother one sister healthy no children) Medications and Allergies Home Medications Medication Instructions Recorded Confirmed Type Atorvastatin [Lipitor] 40 mg PO HS 11/03/17 11/16/17 History Erythromycin Ophth Oint [Romycin 1 applic LEFT EYE HS 11/03/17 11/16/17 History Ophth Oint] Gatifloxacin/Prednisolone 1 drop LEFT EYE HS 11/03/17 11/16/17 History [prednisoLONE 1%-Gatiflox 0.5%] Glucosamine/MSM/Chrond/D3/Bosw 1 tab PO DAILY 11/03/17 11/16/17 History [Icoospvkcfs-Vylctt-VYA-D3 Cplt] Lisinopril [Zestril] 5 mg PO DAILY@1500 11/03/17 11/16/17 History Multivitamin [Men's Multi-Vitamin] 1 tab PO DAILY 11/03/17 11/16/17 History Naproxen Sodium [Aleve] 440 mg PO DAILY 11/03/17 11/16/17 History diphenhydrAMINE [Benadryl] 25 mg PO DAILY PRN 11/03/17 11/16/17 History Furosemide [Lasix] 40 mg PO DAILY #30 tablet 11/09/17 11/16/17 Rx Metoprolol Succinate (ER) [Toprol 50 mg PO DAILY@1500 11/15/17 11/16/17 History Xl] Mupirocin 2% Nasal Oint [Bactroban 1 applic NASAL BID 11/15/17 11/16/17 History 2% Nasal Oint] metFORMIN HCL 1,000 mg PO W/SUPPER 11/15/17 11/16/17 History metFORMIN HCL [Glucophage] 500 mg PO BID 11/15/17 11/16/17 History Allergies Allergy/AdvReac Type Severity Reaction Status Date / Time clindamycin Allergy Rash/Hives Verified 11/16/17 10:28 Physical Exam Vitals: Vital Signs Temp Pulse Pulse Pulse Resp BP BP 11/16/17 14:30 82 41 H 119/64 11/16/17 14:00 83 21 119/64 11/16/17 13:30 80 25 H 131/64 11/16/17 13:00 84 30 H 131/64 11/16/17 12:30 85 22 145/79 11/16/17 12:00 98.0 F 83 29 H 153/66 11/16/17 11:45 82 24 133/75 11/16/17 11:30 81 22 133/62 11/16/17 11:15 78 27 H 125/75 11/16/17 11:10 81 15 11/16/17 11:00 83 24 127/68 11/16/17 10:45 83 20 139/84 11/16/17 10:30 81 32 H 108/65 11/16/17 10:15 98.2 F 81 11/16/17 08:04 97.6 F 88 18 124/84 BP Pulse Ox 11/16/17 14:30 99 11/16/17 14:00 99 11/16/17 13:30 100 11/16/17 13:00 92 L 11/16/17 12:30 97 11/16/17 12:00 97 11/16/17 11:45 96 11/16/17 11:30 97 11/16/17 11:15 94 L 11/16/17 11:10 11/16/17 11:00 94 L 11/16/17 10:45 96 11/16/17 10:30 91 L 11/16/17 10:15 92 L 11/16/17 08:04 122/78 95 Intake and Output 11/15/17 11/16/17 11/16/17 22:59 06:59 14:59 Intake Total 382 Output Total 425 Balance -43 Intake: IV 382 Heparin Sod,Pork in 0.45% 72 NaCl 25,000 unit In 0.45 % NaCl 1 500ml.bag @ 12 UNITS/KG/HR 18.28 mls/hr IV .Q24H JANNA Rx#: [id number] Sodium Chloride 0.9% 1, 150 000 ml @ 75 mls/hr IV . [id number] JANNA Rx#:[id number] Output: Urine 425 Other: Voiding Method Indwelling Catheter Weight 76.2 kg GENERAL EXAM: Alert, pleasant 72-year-old white male, resting in bed in the intensive care unit, comfortable in no apparent distress. HEAD: Normocephalic/atraumatic. EYES: Normal reaction of pupils, equal size. Conjunctiva pink, sclera white. NOSE: Clear with pink turbinates. THROAT: No erythema or exudates. NECK: No masses, no JVD, no thyroid enlargement, no adenopathy. CHEST: No chest wall deformity. Symmetrical expansion. LUNGS: Equal air entry with no crackles, wheeze, rhonchi or dullness. CVS: Regular rate and rhythm, normal S1 and S2, no gallops, no rubs, systolic murmur at the apex. IABP via right femoral approach present, 1:1 frequency, distal pulses and sensory status intact ABDOMEN: Soft, nontender. No hepatosplenomegaly, normal bowel sounds, no guarding or rigidity. EXTREMITIES: No clubbing, no edema, no cyanosis, 2+ pulses and upper and lower extremities. MUSCULOSKELETAL: Muscle strength and tone normal. SPINE: No scoliosis or deformity SKIN: No rashes CENTRAL NERVOUS SYSTEM: Alert and oriented -3. No focal deficits, tone is normal in all 4 extremities. PSYCHIATRIC: Alert and oriented -3. Appropriate affect. Intact judgment and insight. Results - Laboratory Findings CBC and BMP: 11/16/17 10:52 11/16/17 10:52 PT/INR, D-dimer PT 11.7 sec (9.0-12.0) 11/16/17 10:52 INR 1.2 (<1.2) H 11/16/17 10:52 Abnormal lab findings: Abnormal Labs 11/10/17 11/16/17 11/16/17 14:36 10:52 10:52 RBC 3.86 L Hgb 10.7 L Hct 34.4 L RDW 17.3 H Lymphocytes # (Manual) 0.62 L INR 1.2 H APTT 86.9 H Chloride BUN Glucose Urine Protein Urine Ketones Urine Blood Urine Mucus Crossmatch See Detail 11/16/17 11/16/17 10:52 13:00 RBC Hgb Hct RDW Lymphocytes # (Manual) INR APTT Chloride 108 H BUN 26 H Glucose 100 H Urine Protein 2+ H Urine Ketones Trace H Urine Blood Trace H Urine Mucus Rare H Crossmatch - Diagnostic Findings Chest x-ray: report reviewed, image reviewed Additional studies: PILAR, PFT, carotid Doppler results reviewed Assessment and Plan Plan: Assessment: #1. Symptomatic multivessel coronary artery disease, with total occlusion of the LAD, 70% stenosis of the diagonal artery, 95% stenosis of the circumflex, diffuse disease in the RCA with 70% stenosis at the bifurcation of the PDA and PLV. Patient is scheduled for coronary artery bypass grafting and mitral valve repair on 11/17/2017 #2. Mitral valve regurgitation #3. Ischemic cardiomyopathy, with severe left ventricular systolic dysfunction #4. Progressive dyspnea, with progressive limitation of exercise capacity due to the above #5. Diabetes mellitus type 2 #6. Remote history of nicotine dependence, patient quit 40 years ago, carries 5 -pack-year smoking history #7. History of myocardial infarction #8. Diabetic retinopathy #9. Small to moderate bilateral pleural effusions Plan: Preop bedside PFTs reviewed, shows severe restriction, likely related to small to moderate-sized pleural effusions. Patient denies any distress, denies any chest pain, denies any dyspnea. Currently on room air, the pulse ox at 99%. We 'll continue close hemodynamic monitoring, IABP is in place, currently at 1:1 frequency. Continue monitoring urine output, labs, cardiac rhythm. Patient is scheduled for three-vessel coronary artery bypass grafting and mitral valve repair tomorrow, nothing by mouth after midnight. I performed a history & physical examination of the patient and discussed their management with my nurse practitioner, Bailee Patrick. I reviewed the nurse practitioner's note and agree with the documented findings and plan of care. Lung sounds are clear diminished at bases. The findings and the impression was discussed with the patient. I attest to the documentation by the nurse practitioner. Time with Patient: Greater than 30
[2017-11-16] MEDS ORDERED: LISINOPRIL 5 MG TAB PO SCH (15:00)
--- NOTE | 2017-11-16 15:04 | P.CONS ---
History of Present Illness - Reason for Consult Consult date: 11/16/17 Medical management Requesting physician: Billy Hogan - Chief Complaint Dyspnea found to have triple-vessel disease and severe MR - History of Present Illness This is a pleasant gentleman patient of Dr. Spann, newly established to the office to evaluate shortness of breath, dyspnea on exertion, underwent cardiac cath and found to have ischemic cardiomyopathy with severe LV dysfunction, triple-vessel disease prior to bypass surgery, admitted for bypass surgery and valve repair. He has underlying history of diabetes mellitus type 2, hyperlipidemia, Cardiac cath performed 11/09/2017 shows left main coronary up was calcified, circumflex 95% stenosis in the ostial portion, LAD totally occluded just of to the origin of the large diagonal branch, diagonal branch from the percent stenosis, 70% stenosis in the PDA and PLV severe left ventricle systolic dysfunction and mitral regurgitation He is currently in ICU being prepped for CABG and mitral valve repair on 2017 and has intra-aortic balloon pump done through the right femoral artery. Review of Systems Constitutional: Reports as per HPI, Denies anorexia, Denies chills, Denies chronic headaches, Denies chronic pain, Denies daytime sleepiness, Denies fatigue, Denies fever, Denies lethargy, Denies malaise, Denies night sweats, Denies poor appetite, Denies sweats, Denies weakness, Denies weight gain, Denies weight loss Ears, nose, mouth and throat: Reports as per HPI, Denies ant. neck pain, Denies bleeding gums, Denies dental pain, Denies dysphagia, Denies epistaxis, Denies headache, Denies hoarseness, Denies mouth pain, Denies nasal congestion, Denies nasal discharge, Denies neck fullness/pressure, Denies neck lump, Denies nose pain, Denies odynophagia, Denies post-nasal drip, Denies sinus pain, Denies sinus pressure, Denies swelling in mouth, Denies swelling in throat, Denies sore throat, Denies vertigo, Denies voice changes Cardiovascular: Reports as per HPI, Reports decreased exercise tolerance, Reports dyspnea on exertion, Denies chest pain, Denies claudication, Denies edema, Denies high blood pressure, Denies irregular heart beat, Denies leg edema , Denies lightheadedness, Denies orthopnea, Denies palpitations, Denies paroxysmal nocturnal dyspnea, Denies phlebitis, Denies rapid heart beat, Denies shortness of breath, Denies syncope Respiratory: Reports as per HPI, Denies congestion, Denies cough, Denies cough with sputum, Denies dyspnea, Denies excessive sputum, Denies hemoptysis, Denies home oxygen, Denies pain, Denies pain on inspiration, Denies pleurisy, Denies respiratory infections, Denies sleep apnea, Denies snoring, Denies wheezing Gastrointestinal: Reports as per HPI, Denies abdominal pain, Denies belching, Denies bloating, Denies BRBPR, Denies change in bowel habits, Denies coffee ground emesis, Denies constipation, Denies diarrhea, Denies dyspepsia, Denies early satiety, Denies excessive gas, Denies heartburn, Denies hematemesis, Denies hematochezia, Denies indigestion, Denies jaundice, Denies lactose intolerance, Denies loss of appetite, Denies melena, Denies nausea, Denies vomiting Genitourinary: Reports as per HPI Musculoskeletal: Reports as per HPI Integumentary: Reports as per HPI, Denies acne, Denies boils, Denies brittle nails, Denies change in hair/nails, Denies color changes, Denies darkening of skin, Denies depigmentation, Denies dryness, Denies foot/leg ulcers, Denies growths, Denies hirsutism, Denies lesions, Denies onychomycosis, Denies pruritus , Denies rash, Denies sores, Denies striae, Denies unusual bruising, Denies wounds Neurological: Reports as per HPI, Denies aphasia, Denies ataxia, Denies balance difficulties, Denies burning pain, Denies change in mentation, Denies change in smell/taste, Denies change in speech, Denies confusion, Denies convulsions, Denies double vision, Denies gait dysfunction, Denies head injury, Denies headaches, Denies hearing difficulties, Denies lack of coordination, Denies loss of vision, Denies memory loss, Denies migraines, Denies motor disturbance, Denies numbness, Denies paralysis, Denies paresthesias, Denies seizures, Denies sensory deficit, Denies spasticity, Denies syncope, Denies tic, Denies tingling , Denies transient paralysis, Denies tremors, Denies vertigo, Denies weakness, Denies visual changes Psychiatric: Reports as per HPI, Denies anhedonia, Denies anxiety, Denies anxiety attacks, Denies change in appetite, Denies change in libido, Denies change in sleep habits, Denies confusion, Denies depression, Denies difficulty concentrating, Denies disorientation, Denies hallucinations, Denies hopelessness , Denies hypersomnia, Denies insomnia, Denies irritability, Denies memory loss, Denies mood swings, Denies paranoia, Denies sadness/tearfulness, Denies sleep disturbances, Denies suicidal ideation Endocrine: Reports as per HPI, Denies cold intolerance, Denies deepening of the voice, Denies excessive sweating, Denies excessive thirst, Denies fatigue, Denies flushing, Denies heat intolerance, Denies high blood sugars, Denies increase in ring/shoe/hat size, Denies low blood sugars, Denies nocturia, Denies palpitations, Denies polydipsia, Denies polyphagia, Denies polyuria, Denies proptosis, Denies recent glucocorticoid use, Denies thyroid mass, Denies weight change Hematologic/Lymphatic: Reports as per HPI, Denies easy bleeding, Denies easy bruising, Denies lymphadenopathy, Denies lymphedema, Denies thrombophilia Allergic/Immunologic: Reports as per HPI, Denies allergic rhinitis, Denies anaphylaxis, Denies angioedema, Denies gluten intolerance, Denies persistent infections, Denies seasonal allergies, Denies urticaria, Denies wheezing Past Medical History Past Medical History: Coronary Artery Disease (CAD), Heart Failure, Diabetes Mellitus, Hyperlipidemia, Myocardial Infarction ([place]) Additional Past Medical History / Comment(s): mitral valve regurgitation Last Myocardial Infarction Date:: PER ECHO POSS UNKNOWN DATE -GA History of Any Multi-Drug Resistant Organisms: None Reported Past Surgical History: Heart Catheterization, Orthopedic Surgery Additional Past Surgical History / Comment(s): CORNEAL GRAFT LEFT EYE, LITHOTRIPSY , LEFT KNEE SURGERY-ARTHROSCOPIC Past Anesthesia/Blood Transfusion Reactions: No Reported Reaction Additional Past Anesthesia/Blood Transfusion Reaction / Comm: no hx of blood transfusion Smoking Status: Former smoker - Past Family History Mother History Unknown: Yes ( at age 86 secondary to traumatic brain concussion bleed) Family Medical History: No Reported History Father Family Medical History: Coronary Artery Disease (CAD) ( at 83) Brother(s) Family Medical History: No Reported History Sister(s) Family Medical History: No Reported History (One brother one sister healthy no children) Medications and Allergies Home Medications Medication Instructions Recorded Confirmed Type Atorvastatin [Lipitor] 40 mg PO HS 11/03/17 11/16/17 History Erythromycin Ophth Oint [Romycin 1 applic LEFT EYE HS 11/03/17 11/16/17 History Ophth Oint] Gatifloxacin/Prednisolone 1 drop LEFT EYE HS 11/03/17 11/16/17 History [prednisoLONE 1%-Gatiflox 0.5%] Glucosamine/MSM/Chrond/D3/Bosw 1 tab PO DAILY 11/03/17 11/16/17 History [Raasyzqjkpc-Tzyzpz-HTU-D3 Cplt] Lisinopril [Zestril] 5 mg PO DAILY@1500 11/03/17 11/16/17 History Multivitamin [Men's Multi-Vitamin] 1 tab PO DAILY 11/03/17 11/16/17 History Naproxen Sodium [Aleve] 440 mg PO DAILY 11/03/17 11/16/17 History diphenhydrAMINE [Benadryl] 25 mg PO DAILY PRN 11/03/17 11/16/17 History Furosemide [Lasix] 40 mg PO DAILY #30 tablet 11/09/17 11/16/17 Rx Metoprolol Succinate (ER) [Toprol 50 mg PO DAILY@1500 11/15/17 11/16/17 History Xl] Mupirocin 2% Nasal Oint [Bactroban 1 applic NASAL BID 11/15/17 11/16/17 History 2% Nasal Oint] metFORMIN HCL 1,000 mg PO W/SUPPER 11/15/17 11/16/17 History metFORMIN HCL [Glucophage] 500 mg PO BID 11/15/17 11/16/17 History Allergies Allergy/AdvReac Type Severity Reaction Status Date / Time clindamycin Allergy Rash/Hives Verified 11/16/17 10:28 Physical Exam Vitals: Vital Signs Temp Pulse Pulse Pulse Resp BP BP 11/16/17 13:00 84 30 H 131/64 11/16/17 12:30 85 22 145/79 11/16/17 12:00 98.0 F 83 29 H 153/66 11/16/17 11:45 82 24 133/75 11/16/17 11:30 81 22 133/62 11/16/17 11:15 78 27 H 125/75 11/16/17 11:10 81 15 11/16/17 11:00 83 24 127/68 11/16/17 10:45 83 20 139/84 11/16/17 10:30 81 32 H 108/65 11/16/17 10:15 98.2 F 81 11/16/17 08:04 97.6 F 88 18 124/84 BP Pulse Ox 11/16/17 13:00 92 L 11/16/17 12:30 97 11/16/17 12:00 97 11/16/17 11:45 96 11/16/17 11:30 97 11/16/17 11:15 94 L 11/16/17 11:10 11/16/17 11:00 94 L 11/16/17 10:45 96 11/16/17 10:30 91 L 11/16/17 10:15 92 L 11/16/17 08:04 122/78 95 Intake and Output 11/15/17 11/16/17 11/16/17 22:59 06:59 14:59 Intake Total 289 Output Total 175 Balance 114 Intake: IV 289 Heparin Sod,Pork in 0.45% 54 NaCl 25,000 unit In 0.45 % NaCl 1 500ml.bag @ 12 UNITS/KG/HR 18.28 mls/hr IV .Q24H JANNA Rx#: [id number] Sodium Chloride 0.9% 1, 75 000 ml @ 75 mls/hr IV . [id number] [facility] Rx#: [id number] Output: Urine 175 Other: Voiding Method Indwelling Catheter Weight 76.2 kg - Constitutional General appearance: average body habitus, cooperative, no acute distress - EENT Eyes: anicteric sclerae, EOMI, PERRLA, dentition normal, normal appearance ENT: NA/AT, normal oropharynx - Respiratory Respiratory: bilateral: CTA, negative: diminished, dullness, rales, rhonchi, wheezing - Cardiovascular Rhythm: regular Heart sounds: normal: S1, S2 Abnormal Heart Sounds: no systolic murmur, no diastolic murmur, no rub, no S3 Gallop, no S4 Gallop, no click, no other - Gastrointestinal General gastrointestinal: normal bowel sounds, soft - Integumentary Integumentary: normal, normal turgor - Neurologic Neurologic: CNII-XII intact, focal deficits (None) - Musculoskeletal Musculoskeletal: gait normal, strength equal bilaterally Results CBC & Chem 7: 11/16/17 10:52 11/16/17 10:52 Labs: Abnormal Lab Results - Last 24 Hours (Table) 11/10/17 11/16/17 11/16/17 Range/Units 14:36 10:52 10:52 RBC 3.86 L (4.30-5.90) m/uL Hgb 10.7 L (13.0-17.5) gm/dL Hct 34.4 L (39.0-53.0) % RDW 17.3 H (11.5-15.5) % Lymphocytes # (Manual) 0.62 L (1.0-4.8) k/uL INR 1.2 H (<1.2) APTT 86.9 H (22.0-30.0) sec Chloride (98-107) mmol/L BUN (9-20) mg/dL Glucose (74-99) mg/dL Urine Protein (Negative) Urine Ketones (Negative) Urine Blood (Negative) Urine Mucus (None) /hpf Crossmatch See Detail 11/16/17 11/16/17 Range/Units 10:52 13:00 RBC (4.30-5.90) m/uL Hgb (13.0-17.5) gm/dL Hct (39.0-53.0) % RDW (11.5-15.5) % Lymphocytes # (Manual) (1.0-4.8) k/uL INR (<1.2) APTT (22.0-30.0) sec Chloride 108 H (98-107) mmol/L BUN 26 H (9-20) mg/dL Glucose 100 H (74-99) mg/dL Urine Protein 2+ H (Negative) Urine Ketones Trace H (Negative) Urine Blood Trace H (Negative) Urine Mucus Rare H (None) /hpf Crossmatch Laboratory Results WBC 5.2 k/uL (3.8-10.6) 11/16/17 10:52 RBC 3.86 m/uL (4.30-5.90) L 11/16/17 10:52 Hgb 10.7 gm/dL (13.0-17.5) L 11/16/17 10:52 Hct 34.4 % (39.0-53.0) L 11/16/17 10:52 MCV 89.1 fL (80.0-100.0) 11/16/17 10:52 MCH 27.9 pg (25.0-35.0) 11/16/17 10:52 MCHC 31.3 g/dL (31.0-37.0) 11/16/17 10:52 RDW 17.3 % (11.5-15.5) H 11/16/17 10:52 Plt Count 213 k/uL (150-450) 11/16/17 10:52 Neutrophils % (Manual) 77 % 11/16/17 10:52 Lymphocytes % (Manual) 12 % 11/16/17 10:52 Monocytes % (Manual) 9 % 11/16/17 10:52 Eosinophils % (Manual) 2 % 11/16/17 10:52 Neutrophils # (Manual) 4.00 k/uL (1.3-7.7) 11/16/17 10:52 Lymphocytes # (Manual) 0.62 k/uL (1.0-4.8) L 11/16/17 10:52 Monocytes # (Manual) 0.47 k/uL (0-1.0) 11/16/17 10:52 Eosinophils # (Manual) 0.10 k/uL (0-0.7) 11/16/17 10:52 Nucleated RBCs 0 /100 WBC (0-0) 11/16/17 10:52 Manual Slide Review Performed 11/16/17 10:52 Hypochromasia Slight 11/16/17 10:52 Anisocytosis Slight 11/16/17 10:52 Ovalocytes Present 11/16/17 10:52 PT 11.7 sec (9.0-12.0) 11/16/17 10:52 INR 1.2 (<1.2) H 11/16/17 10:52 APTT 86.9 sec (22.0-30.0) H 11/16/17 10:52 Sodium 142 mmol/L (137-145) 11/16/17 10:52 Potassium 4.4 mmol/L (3.5-5.1) 11/16/17 10:52 Chloride 108 mmol/L (98-107) H 11/16/17 10:52 Carbon Dioxide 26 mmol/L (22-30) 11/16/17 10:52 Anion Gap 8 mmol/L 11/16/17 10:52 BUN 26 mg/dL (9-20) H 11/16/17 10:52 Creatinine 0.96 mg/dL (0.66-1.25) 11/16/17 10:52 Est GFR (CKD-EPI)AfAm >90 (>60 ml/min/1.73 sqM) 11/16/17 10:52 Est GFR (CKD-EPI)NonAf 79 (>60 ml/min/1.73 sqM) 11/16/17 10:52 Glucose 100 mg/dL (74-99) H 11/16/17 10:52 POC Glucose (mg/dL) 83 mg/dL (75-99) 11/16/17 07:53 POC Glu Double Bottom Driver Peri Cameron 11/16/17 07:53 Calcium 8.6 mg/dL (8.4-10.2) 11/16/17 10:52 Total Bilirubin 0.5 mg/dL (0.2-1.3) 11/16/17 10:52 AST 37 U/L (17-59) 11/16/17 10:52 ALT 39 U/L (21-72) 11/16/17 10:52 Alkaline Phosphatase 110 U/L (38-126) 11/16/17 10:52 Total Protein 6.4 g/dL (6.3-8.2) 11/16/17 10:52 Albumin 3.5 g/dL (3.5-5.0) 11/16/17 10:52 TSH 2.410 mIU/L (0.465-4.680) 11/16/17 10:52 Urine Color Yellow 11/16/17 13:00 Urine Appearance Clear (Clear) 11/16/17 13:00 Urine pH 6.5 (5.0-8.0) 11/16/17 13:00 Ur Specific [place] 1.016 (1.001-1.035) 11/16/17 13:00 Urine Protein 2+ (Negative) H 11/16/17 13:00 Urine Glucose (UA) Negative (Negative) 11/16/17 13:00 Urine Ketones Trace (Negative) H 11/16/17 13:00 Urine Blood Trace (Negative) H 11/16/17 13:00 Urine Nitrite Negative (Negative) 11/16/17 13:00 Urine Bilirubin Negative (Negative) 11/16/17 13:00 Urine Urobilinogen <2.0 mg/dL (<2.0) 11/16/17 13:00 Ur Leukocyte Esterase Negative (Negative) 11/16/17 13:00 Urine RBC 3 /hpf (0-5) 11/16/17 13:00 Urine WBC 2 /hpf (0-5) 11/16/17 13:00 Urine Mucus Rare /hpf (None) H 11/16/17 13:00 Blood Type O Positive 11/10/17 14:36 Blood Type Recheck No 11/10/17 14:36 Antibody Screen NEGATIVE 11/10/17 14:36 Crossmatch See Detail 11/10/17 14:36 Transfuse Platelets 11/17/17 11/10/17 14:36 Spec Expiration Date 11/19/2017233511/10/17 14:36 Assessment and Plan (1) Coronary artery disease Narrative/Plan: Triple vessel disease noted on cardiac cath agent to undergo CABG on all 2017. Risk factors to be maximally modified, continue on statin beta blockers Lamine inhibitors and aspirin. Hemoglobin A1c to be obtained, insulin drip therapy. ICU sagger maker Dr. Fajardo consult Current Visit: No Status: Chronic Code(s): I25.10 - ATHSCL HEART DISEASE OF [place] CORONARY ARTERY W/O ANG PCTRS SNOMED Code(s): 03918178 (2) Ischemic cardiomyopathy Narrative/Plan: Has impaired ejection fraction of 38%, along with congestive heart failure, and this will be medically managed as well as surgical intervention for his CABG, a shunt is on aortic alone pump and is being closely followed by cardiology and cardiovascular surgery, anticipate CABG on 11/17/2017, continue on LAMINE inhibitor is in Lasix Current Visit: Yes Status: Acute Code(s): I25.5 - ISCHEMIC CARDIOMYOPATHY SNOMED Code(s): 819563332 (3) Congestive heart failure with cardiomyopathy Narrative/Plan: Mixed type CHF acute on chronic systolic and diastolic dysfunction, also accompanied by mitral valvular regurgitation, continue on Lasix, maximize medical treatment, anticipate CBG with possibility of mitral valve repair in the morning 11/17/2017 Current Visit: Yes Status: Acute Code(s): I50.9 - HEART FAILURE, UNSPECIFIED ; I42.9 - CARDIOMYOPATHY, UNSPECIFIED SNOMED Code(s): 45572598 (4) Hyperlipidemia Narrative/Plan: Patient currently is on statins, and will be titrated to goal of 70 currently on Lipitor 40 mg daily Current Visit: No Status: Chronic Code(s): E78.5 - HYPERLIPIDEMIA, UNSPECIFIED SNOMED Code(s): 29632935 (5) On esomeprazole prophylaxis Current Visit: Yes Status: Acute Code(s): Z79.899 - OTHER GROUP HOME (CURRENT ) DRUG THERAPY SNOMED Code(s): 789085766 (6) DVT prophylaxis Current Visit: Yes Status: Acute Code(s): BZW9761 - SNOMED Code(s): 042016612 (7) Steal syndrome, subclavian Narrative/Plan: Carotid Dopplers 11/10/2017 shows no carotid stenosis however there is to and fro flow within the right vertebral artery could reflect manifestation of subclavian steal physiology prior to with continuous flow reversal. Currently asymptomatic continue to monitor Current Visit: Yes Status: Acute Code(s): G45.8 - OTH TRANSIENT CEREBRAL ISCHEMIC ATTACKS AND RELATED SYND SNOMED Code(s): 86077121 (8) Pulmonary hypertension Narrative/Plan: PILAR on 11/10/2017, moderate pulmonary hypertension also shows intact atrial septum with no evidence of [id number] shunt physiology, unable to locate pressures for right ventricular systolic Current Visit: Yes Status: Acute Code(s): I27.20 - PULMONARY HYPERTENSION, UNSPECIFIED SNOMED Code(s): 17597702
[2017-11-16] MEDS ORDERED: Magnesium Replacement Protocol 1 EACH MISC MISCELLANE PRN (16:18)
[2017-11-16] MEDS: MAGNESIUM SULFATE-D5W PMX 1 GM in DEXTROSE/WATER 1 100ML.BAG IVPB SCH ×2 (17:16→18:30)
[2017-11-16 17:31] LABS: Glucose,Whole Blood 95 mg/dL (75-99)
[2017-11-16 19:33] LABS: Hemoglobin A1C 6.7 % (4.0-6.0)
[2017-11-16 20:32] LABS: Iron Saturation 8.87 (15.00-50.00)
[2017-11-16] MEDS ORDERED: PREDNISOLONE LEFT EYE SCH (21:00)
[2017-11-16] MEDS ORDERED: ATORVASTATIN 40 MG TAB PO SCH (21:00)
[2017-11-16] MEDS ORDERED: ERYTHROMYCIN 5 MG/GM OPHTH OINT 3.5 GM TUBE LEFT EYE SCH (21:00)
[2017-11-16] MEDS ORDERED: GATIFLOXACIN LEFT EYE SCH (21:00)
[2017-11-16 21:19] LABS: Glucose,Whole Blood 160 mg/dL (75-99)
[2017-11-17] MEDS: SODIUM CHLORIDE 0.9% 1,000 ML IV SCH ×2 (01:13→19:17)
[2017-11-17 04:16] LABS: Anisocytosis Slight; Basophils % (A) 1 %; Eosinophils # (A) 0.2 k/uL (0-0.7); Eosinophils % (A) 3 %; HCT 36.3 % (39.0-53.0); HGB 11.1 gm/dL (13.0-17.5); Hypochromasia Slight; Lymphocytes # (A) 0.7 k/uL (1.0-4.8); Lymphocytes % (A) 9 %; MCHC 30.6 g/dL (31.0-37.0); MCV 88.5 fL (80.0-100.0); Mean Platelet Volume 8.7; Monocytes # (A) 0.5 k/uL (0-1.0); Monocytes % (A) 7 %; Neutrophils # (A) 5.8 k/uL (1.3-7.7); Neutrophils % (A) 77 %; Platelet Count 209 k/uL (150-450); RDW 17.5 % (11.5-15.5); WBC 7.5 k/uL (3.8-10.6)
[2017-11-17 04:26] LABS: INR 1.2 (<1.2); Partial Thromboplastin Time 45.8 sec (22.0-30.0); Prothrombin Time 11.3 sec (9.0-12.0)
[2017-11-17 04:38] LABS: ALT 33 U/L (21-72); AST 27 U/L (17-59); Albumin 3.2 g/dL (3.5-5.0); Alkaline Phosphatase 94 U/L (38-126); Anion Gap 7 mmol/L; Blood Urea Nitrogen 19 mg/dL (9-20); Calcium 8.6 mg/dL (8.4-10.2); Carbon Dioxide 27 mmol/L (22-30); Chloride 106 mmol/L (98-107); Glucose 97 mg/dL (74-99); Magnesium 2.1 mg/dL (1.6-2.3); Potassium 4.6 mmol/L (3.5-5.1); Sodium 140 mmol/L (137-145); Total Bilirubin 0.6 mg/dL (0.2-1.3); Total Protein 6.1 g/dL (6.3-8.2)
[2017-11-17] MEDS ORDERED: PHENYLEPHRINE 40 MG in SODIUM CHLORIDE 0.9% 250 ML IV ONE (05:00)
[2017-11-17] MEDS ORDERED: HEPARIN SODIUM,PORCINE 5,000 UNIT in SODIUM CHLORIDE 0.9% 500 ML IV ONE (05:00)
[2017-11-17] MEDS ORDERED: ALBUMIN HUMAN 5% 500 ML in EMPTY BAG 1 BAG IVPB ONE ×6 (05:00)
[2017-11-17] MEDS ORDERED: PHENYLEPHRINE-0.9% NACL SYG 1 MG/10 ML SYRINGE IV ONE ×4 (05:00)
[2017-11-17] MEDS ORDERED: ceFAZolin 2,000 MG in SODIUM CHLORIDE 0.9% 30 ML IVPB ONE (05:00)
[2017-11-17] MEDS ORDERED: INSULIN REGULAR 100 UNIT in SODIUM CHLORIDE 0.9% 100 ML IV ONE (05:00)
[2017-11-17] MEDS ORDERED: TRANEXAMIC ACID 2,000 MG in SODIUM CHLORIDE 0.9% 180 ML IV ONE (05:00)
[2017-11-17] MEDS ORDERED: PROTAMINE SULFATE 250 MG in EMPTY BAG 1 BAG IV ONE (05:00)
[2017-11-17] MEDS ORDERED: PROTAMINE SULFATE 10 MG/ML 25 ML VIAL IV ONE ×2 (05:00→08:50)
[2017-11-17] MEDS ORDERED: MAGNESIUM SULFATE SYG 4.06 MEQ/ML SYRINGE IV ONE (05:00)
[2017-11-17] MEDS ORDERED: CLEVIDIPINE BUTYRATE 25 MG in EMPTY BAG 1 BAG IV ONE (05:00)
[2017-11-17] MEDS ORDERED: DEXTROSE 5% IN WATER 1,000 ML with POTASSIUM CHLORIDE 110 MEQ, MAGNESIUM SULFATE 16 MEQ... IV SCH ×5 (05:00)
[2017-11-17] MEDS ORDERED: ceFAZolin 2 GM in SODIUM CHLORIDE 0.9% 30 ML IVPB ONE (05:00)
[2017-11-17] MEDS ORDERED: CHLORHEXIDINE GLUCONATE 15 ML CUP MUCOUS MEM ONE (05:00)
[2017-11-17] MEDS ORDERED: ASPIRIN 325 MG TAB PO ONE (05:00)
[2017-11-17] MEDS ORDERED: NITROGLYCERIN-D5W PMX 25 MG/250 ML BTL IV ONE (05:00)
[2017-11-17] MEDS ORDERED: ceFAZolin 1,000 MG in SODIUM CHLORIDE 0.9% IRRIGATIO 1,000 ML IRRIGATION ONE (05:00)
[2017-11-17] MEDS ORDERED: NOREPINEPHRIN 4 MG-0.9% NS PMX 4 MG/250 ML ML IV SCH (05:00)
[2017-11-17] MEDS ORDERED: NITROGLYCERIN-D5W PMX 50 MG in DEXTROSE/WATER 1 250ML.BAG IV ONE (05:00)
[2017-11-17] MEDS ORDERED: LACTATED RINGERS 1,000 ML IV SCH (05:00)
[2017-11-17] MEDS ORDERED: ATORVASTATIN 10 MG TAB PO ONE (05:00)
[2017-11-17] MEDS ORDERED: ALBUMIN HUMAN 25% 50 ML in EMPTY BAG 1 BAG IVPB ONE (05:00)
[2017-11-17] MEDS ORDERED: PAPAVERINE 360 MG in SODIUM CHLORIDE 0.9% 90 ML IV ONE ×2 (05:00→11:29)
[2017-11-17] MEDS ORDERED: HEPARIN SODIUM 1,000 UN/ML (10ML VL) IV ONE (05:00)
[2017-11-17] MEDS ORDERED: PROPOFOL 1,000 MG in EMPTY BAG 1 BAG IV ONE (05:00)
[2017-11-17] MEDS ORDERED: MANNITOL 25% 12.5 GM/50 ML VIAL IV ONE ×2 (05:00)
[2017-11-17] MEDS ORDERED: CALCIUM CHLORIDE 100 MG/ML 10 ML SYRINGE IVP ONE (05:00)
[2017-11-17] MEDS ORDERED: METOPROLOL TARTRATE 12.5 MG TAB PO ONE (05:00)
[2017-11-17] MEDS ORDERED: DEXTROSE 5% IN WATER 1,000 ML with POTASSIUM CHLORIDE 25 MEQ, SODIUM CHLORIDE 2.5MEQ/ML... IV SCH ×6 (05:00)
[2017-11-17] MEDS ORDERED: SODIUM BICARB 8.4% 50 ML SYR (1 MEQ/ML) IV ONE (05:55)
--- NOTE | 2017-11-17 08:18 | PN ---
PROGRESS NOTE Mr. Silva is a 72-year-old male with history of coronary artery disease who presented to undergo coronary artery bypass grafting. An elective intra-aortic balloon pump placement was done yesterday by Dr. Hogan who has seen the patient preoperatively. He has not slept well during the night but otherwise denying any symptoms of chest pain. He denies any dizziness. He denies any palpitations. The patient has underwent transesophageal echocardiogram on the 06 of November that revealed evidence of ischemic cardiomyopathy with moderate mitral regurgitation and moderate pulmonary hypertension. His cardiac catheterization that was done on the revealed triple-vessel coronary artery disease. MEDICATIONS: His medications at home prior to admission included metformin, metoprolol succinate 50 mg daily, Zestril 5 mg daily, furosemide 40 mg daily, Lipitor 40 mg daily. PHYSICAL EXAMINATION: Patient has intra-aortic balloon pump and augmentation is 133/70 with the heart rate in the 80s. LUNGS: Clear anteriorly. HEART: Regular rate and rhythm. S1, S2. No S3 with a holosystolic murmur in the apex. ABDOMEN: Soft, nontender. Positive bowel sounds. No organomegaly. EXTREMITIES: No edema. Intra-aortic balloon pump noted in the right femoral artery and clean and dry. LAB DATA: Lab data revealed BUN and creatinine 19 and 0.83. Hemoglobin of 11.1. Potassium 4.6 IMPRESSION: 1. Severe triple-vessel coronary artery disease with ischemic cardiomyopathy and evidence of mitral regurgitation, scheduled for coronary artery bypass grafting and mitral valve repair. 2. Hypertension. 3. Hyperlipidemia. 4. Diabetes mellitus. RECOMMENDATION: We will proceed with the surgical intervention today and depending on his progress, further recommendation will be made. MMODL / IJN: [id number] /
[2017-11-17] MEDS ORDERED: ELECTROLYTE-R (PH 7.4) 1,000 ML IV.SOLN IV ONE (08:50)
[2017-11-17] MEDS ORDERED: PROPOFOL 10 MG/ML 20 ML VIAL IV ONE (08:50)
[2017-11-17] MEDS ORDERED: SODIUM CHLORIDE 0.9% 250 ML BAG ONE (08:50)
[2017-11-17] MEDS ORDERED: LIDOCAINE 1% INJ 10MG/ML (20 ML MDV) ONE (08:50)
[2017-11-17] MEDS ORDERED: TRANEXAMIC ACID 1,000 MG/10 ML VIAL ONE (08:50)
[2017-11-17] MEDS ORDERED: LIDOCAINE 2% SYG (PF) 100 MG/5 ML ONE (08:50)
[2017-11-17] MEDS ORDERED: MAGNESIUM SULFATE 4 MEQ/ML 2 ML VIAL ONE (08:50)
[2017-11-17] MEDS ORDERED: fentaNYL (PF) 50 MCG/ML 2 ML AMP ONE (08:50)
[2017-11-17] MEDS ORDERED: PHENYLEPHRINE-0.9% NACL SYG 1 MG/10 ML SYRINGE ONE (08:50)
[2017-11-17] MEDS ORDERED: CALCIUM CHLORIDE 100 MG/ML 10 ML SYRINGE ONE (08:50)
[2017-11-17] MEDS ORDERED: MIDAZOLAM 2 MG/2 ML VIAL ONE (08:50)
[2017-11-17] MEDS ORDERED: fentaNYL (PF) 50 MCG/ML 50 ML VIAL ONE (08:50)
[2017-11-17] MEDS ORDERED: HEPARIN SODIUM,PORCINE 10,000 UNIT/ML 1 ML VIAL ONE (08:50)
[2017-11-17] MEDS ORDERED: EPINEPHrine 10 ML SYRINGE (0.1 MG/ML) ONE (08:50)
[2017-11-17] MEDS ORDERED: SODIUM CHLORIDE 0.9% IRRIG 1,000 ML BTL IRRIGATION ONE (08:50)
[2017-11-17] MEDS ORDERED: VECURONIUM 10 MG VIAL IV ONE (08:50)
[2017-11-17] MEDS ORDERED: FUROSEMIDE 40 MG TAB PO SCH (09:00)
--- NOTE | 2017-11-17 09:07 | XR ---
EXAMINATION TYPE: XR chest 1V confirm line [facility] DATE OF EXAM: 11/17/2017 CLINICAL HISTORY: Central line placement, pre-cardiac surgery. Intra-aortic balloon pump. TECHNIQUE: Single AP portable upright view of the chest is obtained. COMPARISON: Chest x-ray from November 10, 2017 FINDINGS: There is new right internal jugular [place] catheter terminating centrally at level of t he pulmonary outflow tracts likely projecting into proximal right pulmonary artery. There is new intr a-aortic balloon pump overlying the inferior aspect aortic knob. Both felt satisfactory in position. There is stable cardiomegaly with atherosclerotic thoracic aorta. There is worsening moderate to larg e size right pleural effusion and associated right basilar atelectasis. There is stable smaller left pleural effusion. Mild central vascular congestion remains present. Osseous structures are intact. IMPRESSION: 1. New right internal jugular [place] catheter and intra-aortic balloon pump felt satisfactory in p osition. 2. Cardiomegaly with central vascular congestion and small bilateral pleural effusions all redemonstr ated, worsening moderate to large size right pleural effusion noted.
[2017-11-17 09:26] LABS: ABG Base Excess 0.1 mmol/L; ABG HCO3 24 mmol/L (21-25); ABG PCO2 33 mmHg (35-45); ABG PH 7.46 (7.35-7.45); ABG PO2 266 mmHg (83-108); ABG Potassium Whole Blood 4.3 mmol/L (3.4-4.5); ABG Sodium Whole Blood 139 mmol/L (135-146); ABG TCO2 25 mmol/L (19-24)
[2017-11-17] MEDS ORDERED: SODIUM CHLORIDE 0.9% 99 ML with VASOPRESSIN 20 UNIT IV ONE ×2 (10:00)
[2017-11-17] MEDS ORDERED: SODIUM CHLORIDE 0.9% 500 ML with HEPARIN SODIUM,PORCINE 5,000 UNIT IV ONE ×2 (11:28)
[2017-11-17] MEDS ORDERED: ceFAZolin 1,000 MG in SODIUM CHLORIDE 0.9% 1,000 ML IRRIGATION ONE (11:33)
[2017-11-17 11:40] LABS: ABG Base Excess -1.6 mmol/L; ABG HCO3 23 mmol/L (21-25); ABG Oxygen Saturation 99.9 % (94-97); ABG PCO2 40 mmHg (35-45); ABG PH 7.38 (7.35-7.45); ABG PO2 209 mmHg (83-108); ABG Potassium Whole Blood 4.1 mmol/L (3.4-4.5); ABG Sodium Whole Blood 139 mmol/L (135-146); ABG TCO2 25 mmol/L (19-24)
--- NOTE | 2017-11-17 11:54 | HP ---
HISTORY AND PHYSICAL DATE OF EVALUATION: 11/16/2017 Jerry is a 72-year-old gentleman who was electively brought into hospital for intra- aortic balloon pump prior to bypass surgery. He recently presented to me with new onset congestive heart failure and cardiac catheterization revealed severe [place] 3- vessel coronary artery disease. Patient has severe LV systolic dysfunction secondary to prior extensive inferior wall myocardial infarction. Patient has a 95% ostial stenosis in the circumflex coronary artery. LAD is totally occluded just off the origin of a large diagonal branch and right coronary artery has a 70% stenosis. A transesophageal echo on him showed moderate to severe mitral regurgitation. Patient was evaluated by Dr. Borjas and is to undergo bypass surgery tomorrow and I was asked to put a balloon pump are as a bridge to surgery as part of his surgical preparation given the severe LV dysfunction and congestive heart failure. PAST MEDICAL HISTORY: Significant for zss-eetfybg-kraphtjgn diabetes, hypertension, dyslipidemia, ischemic cardiomyopathy, and congestive heart failure. MEDICATIONS: At home included Glucophage 500 b.i.d., Toprol-XL 50 q. daily, Zestril 5 mg daily, Lasix 40 q. daily, and Lipitor 40 q. daily. ALLERGIES: CLINDAMYCIN. FAMILY HISTORY: Negative for premature coronary artery disease. SOCIAL HISTORY: Negative for current smoking, EtOH abuse, or drug abuse. REVIEW OF SYSTEMS: HEENT is unremarkable. CARDIAC: As described above. RESPIRATORY: Significant for shortness of breath/ GI: Negative. GENITOURINARY: Negative. MUSCULOSKELETAL: Significant for arthritis. PSYCHOSOCIAL: Negative. ENDOCRINE: Negative. HEMATOLOGIC: Negative. DERM: Negative. CONSTITUTIONAL: Negative. PHYSICAL EXAM: Patient is comfortable at rest. Vital signs are stable. Chest exam reveals diminished air entry at the bases. Heart exam reveals first and second heart sounds. Systolic murmur at the apex. Abdomen is soft. Exam of extremities did not reveal edema. Peripheral pulses are felt. LABS: Have been reviewed. ASSESSMENT: 1. [place] 3-vessel coronary artery disease. 2. Ischemic cardiomyopathy with severe left ventricular dysfunction. 3. Moderate to severe mitral regurgitation. 4. Chronic systolic heart failure. PLAN: Patient will undergo an intra-aortic balloon pump today and will undergo bypass surgery tomorrow. MMODL / IJN: [id number] /
[2017-11-17 12:25] LABS: ABG Base Excess -1.4 mmol/L; ABG HCO3 23 mmol/L (21-25); ABG PCO2 34 mmHg (35-45); ABG PH 7.43 (7.35-7.45); ABG Potassium Whole Blood 4.1 mmol/L (3.4-4.5); ABG Sodium Whole Blood 137 mmol/L (135-146); ABG TCO2 24 mmol/L (19-24)
[2017-11-17 13:04] LABS: ABG Base Excess -1.5 mmol/L; ABG HCO3 24 mmol/L (21-25); ABG PCO2 41 mmHg (35-45); ABG PH 7.37 (7.35-7.45); ABG PO2 291 mmHg (83-108); ABG Sodium Whole Blood 137 mmol/L (135-146); ABG TCO2 25 mmol/L (19-24)
[2017-11-17 13:47] LABS: ABG Base Excess -0.8 mmol/L; ABG HCO3 24 mmol/L (21-25); ABG PCO2 38 mmHg (35-45); ABG PH 7.41 (7.35-7.45); ABG PO2 279 mmHg (83-108); ABG Potassium Whole Blood 4.9 mmol/L (3.4-4.5); ABG Sodium Whole Blood 136 mmol/L (135-146); ABG TCO2 25 mmol/L (19-24)
--- NOTE | 2017-11-17 14:26 | P.PN ---
Subjective Progress Note Date: 11/17/17 This is a pleasant gentleman patient of Dr. Spann, newly established to the office to evaluate shortness of breath, dyspnea on exertion, underwent cardiac cath and found to have ischemic cardiomyopathy with severe LV dysfunction, triple-vessel disease prior to bypass surgery, admitted for bypass surgery and valve repair. He has underlying history of diabetes mellitus type 2, hyperlipidemia, Cardiac cath performed 11/09/2017 shows left main coronary up was calcified, circumflex 95% stenosis in the ostial portion, LAD totally occluded just of to the origin of the large diagonal branch, diagonal branch from the percent stenosis, 70% stenosis in the PDA and PLV severe left ventricle systolic dysfunction and mitral regurgitation He is currently in ICU being prepped for CABG and mitral valve repair on 2017 and has intra-aortic balloon pump done through the right femoral artery. 11/17: Patient is having open-heart surgery today. Objective - Vital Signs Vital signs: Vital Signs Temp 98.3 F 11/17/17 04:00 Pulse 84 11/17/17 07:00 Resp 20 11/17/17 07:00 BP 133/71 11/17/17 07:00 Pulse Ox 98 11/17/17 07:00 Intake & Output 11/16/17 11/17/17 11/17/17 18:59 06:59 18:59 Intake Total 3456.282 7278.83 Output Total 685 1200 Balance 795.385 169.83 Weight 76.2 kg 77.7 kg Intake: IV 957.3 1032 Heparin Sod,Pork in 0.45% 147.3 21 NaCl 25,000 unit In 0.45 % NaCl 1 500ml.bag @ 12 UNITS/KG/HR 18.28 mls/hr IV .Q24H [facility] Rx#: [id number] IABP pressure bag 36 Magnesium Sulfate-D5w Pmx 200 1 gm In Dextrose/Water 1 100ml.bag @ 100 mls/hr IVPB Q1H [facility]AN[facility] Rx#: [id number] Sodium Chloride 0.9% 1, 450 975 000 ml @ 75 mls/hr IV . [id number] [facility]ANNA Rx#:[id number] Intake, IV Titration 123.085 237.83 Amount Heparin Sod,Pork in 0.45% 123.085 237.83 NaCl 25,000 unit In 0.45 % NaCl 1 500ml.bag @ 12 UNITS/KG/HR 18.28 mls/hr IV .Q24H [facility] Rx#: [id number] Oral 400 100 Output: Urine 685 1200 Other: Voiding Method Indwelling Catheter Indwelling Catheter - Exam General appearance: average body habitus, cooperative, no acute distress - EENT Eyes: anicteric sclerae, EOMI, PERRLA, dentition normal, normal appearance ENT: NA/AT, normal oropharynx - Respiratory Respiratory: bilateral: CTA, negative: diminished, dullness, rales, rhonchi, wheezing - Cardiovascular Rhythm: regular Heart sounds: normal: S1, S2 Abnormal Heart Sounds: no systolic murmur, no diastolic murmur, no rub, no S3 Gallop, no S4 Gallop, no click, no other - Gastrointestinal General gastrointestinal: normal bowel sounds, soft - Integumentary Integumentary: normal, normal turgor - Neurologic Neurologic: CNII-XII intact, focal deficits (None) - Musculoskeletal Musculoskeletal: gait normal, strength equal bilaterally - Labs CBC & Chem 7: 11/17/17 04:00 11/17/17 04:00 Labs: Abnormal Lab Results - Last 24 Hours (Table) 11/10/17 11/16/17 11/16/17 Range/Units 14:36 10:52 10:52 RBC 3.86 L (4.30-5.90) m/uL Hgb 10.7 L (13.0-17.5) gm/dL Hct 34.4 L (39.0-53.0) % MCHC (31.0-37.0) g/dL RDW 17.3 H (11.5-15.5) % Lymphocytes # (1.0-4.8) k/uL Lymphocytes # (Manual) 0.62 L (1.0-4.8) k/uL INR 1.2 H (<1.2) APTT 86.9 H (22.0-30.0) sec Chloride (98-107) mmol/L BUN (9-20) mg/dL Glucose (74-99) mg/dL POC Glucose (mg/dL) (75-99) mg/dL Hemoglobin A1c (4.0-6.0) % Iron (65-175) ug/dL Iron Saturation (15.00-50.00) Total Protein (6.3-8.2) g/dL Albumin (3.5-5.0) g/dL Urine Protein (Negative) Urine Ketones (Negative) Urine Blood (Negative) Urine Mucus (None) /hpf Crossmatch See Detail 11/16/17 11/16/17 11/16/17 Range/Units 10:52 10:52 10:52 RBC (4.30-5.90) m/uL Hgb (13.0-17.5) gm/dL Hct (39.0-53.0) % MCHC (31.0-37.0) g/dL RDW (11.5-15.5) % Lymphocytes # (1.0-4.8) k/uL Lymphocytes # (Manual) (1.0-4.8) k/uL INR (<1.2) APTT (22.0-30.0) sec Chloride 108 H (98-107) mmol/L BUN 26 H (9-20) mg/dL Glucose 100 H (74-99) mg/dL POC Glucose (mg/dL) (75-99) mg/dL Hemoglobin A1c 6.7 H (4.0-6.0) % Iron 26 L (65-175) ug/dL Iron Saturation 8.87 L (15.00-50.00) Total Protein (6.3-8.2) g/dL Albumin (3.5-5.0) g/dL Urine Protein (Negative) Urine Ketones (Negative) Urine Blood (Negative) Urine Mucus (None) /hpf Crossmatch 11/16/17 11/16/17 11/16/17 Range/Units 13:00 16:22 21:16 RBC (4.30-5.90) m/uL Hgb (13.0-17.5) gm/dL Hct (39.0-53.0) % MCHC (31.0-37.0) g/dL RDW (11.5-15.5) % Lymphocytes # (1.0-4.8) k/uL Lymphocytes # (Manual) (1.0-4.8) k/uL INR (<1.2) APTT 44.0 H (22.0-30.0) sec Chloride (98-107) mmol/L BUN (9-20) mg/dL Glucose (74-99) mg/dL POC Glucose (mg/dL) 160 H (75-99) mg/dL Hemoglobin A1c (4.0-6.0) % Iron (65-175) ug/dL Iron Saturation (15.00-50.00) Total Protein (6.3-8.2) g/dL Albumin (3.5-5.0) g/dL Urine Protein 2+ H (Negative) Urine Ketones Trace H (Negative) Urine Blood Trace H (Negative) Urine Mucus Rare H (None) /hpf Crossmatch 11/16/17 11/17/17 11/17/17 Range/Units 22:56 04:00 04:00 RBC 4.10 L (4.30-5.90) m/uL Hgb 11.1 L (13.0-17.5) gm/dL Hct 36.3 L (39.0-53.0) % MCHC 30.6 L (31.0-37.0) g/dL RDW 17.5 H (11.5-15.5) % Lymphocytes # 0.7 L (1.0-4.8) k/uL Lymphocytes # (Manual) (1.0-4.8) k/uL INR 1.2 H (<1.2) APTT 48.5 H 45.8 H (22.0-30.0) sec Chloride (98-107) mmol/L BUN (9-20) mg/dL Glucose (74-99) mg/dL POC Glucose (mg/dL) (75-99) mg/dL Hemoglobin A1c (4.0-6.0) % Iron (65-175) ug/dL Iron Saturation (15.00-50.00) Total Protein (6.3-8.2) g/dL Albumin (3.5-5.0) g/dL Urine Protein (Negative) Urine Ketones (Negative) Urine Blood (Negative) Urine Mucus (None) /hpf Crossmatch 11/17/17 Range/Units 04:00 RBC (4.30-5.90) m/uL Hgb (13.0-17.5) gm/dL Hct (39.0-53.0) % MCHC (31.0-37.0) g/dL RDW (11.5-15.5) % Lymphocytes # (1.0-4.8) k/uL Lymphocytes # (Manual) (1.0-4.8) k/uL INR (<1.2) APTT (22.0-30.0) sec Chloride (98-107) mmol/L BUN (9-20) mg/dL Glucose (74-99) mg/dL POC Glucose (mg/dL) (75-99) mg/dL Hemoglobin A1c (4.0-6.0) % Iron (65-175) ug/dL Iron Saturation (15.00-50.00) Total Protein 6.1 L (6.3-8.2) g/dL Albumin 3.2 L (3.5-5.0) g/dL Urine Protein (Negative) Urine Ketones (Negative) Urine Blood (Negative) Urine Mucus (None) /hpf Crossmatch Assessment and Plan Plan: (1) Coronary artery disease Triple vessel disease noted on cardiac cath agent to undergo CABG on all 2017. Risk factors to be maximally modified, continue on statin beta blockers Lamine inhibitors and aspirin. Hemoglobin A1c to be obtained, insulin drip therapy. ICU ladies attendant Dr. Fajardo consult (2) Ischemic cardiomyopathy Has impaired ejection fraction of 38%, along with congestive heart failure, and this will be medically managed as well as surgical intervention for his CABG, a shunt is on aortic alone pump and is being closely followed by cardiology and cardiovascular surgery, anticipate CABG on 11/17/2017, continue on LAMINE inhibitor is in Lasix (3) Congestive heart failure with cardiomyopathy Mixed type CHF acute on chronic systolic and diastolic dysfunction, also accompanied by mitral valvular regurgitation, continue on Lasix, maximize medical treatment, anticipate CBG with possibility of mitral valve repair in the morning 11/17/2017 (4) Hyperlipidemia Patient currently is on statins, and will be titrated to goal of 70 currently on Lipitor 40 mg daily (5) On esomeprazole prophylaxis (6) DVT prophylaxis (7) Steal syndrome, subclavian Carotid Dopplers 11/10/2017 shows no carotid stenosis however there is to and fro flow within the right vertebral artery could reflect manifestation of subclavian steal physiology prior to with continuous flow reversal. Currently asymptomatic continue to monitor (8) Pulmonary hypertension PILAR on 11/10/2017, moderate pulmonary hypertension also shows intact atrial septum with no evidence of gwzg-go-wymps shunt physiology, unable to locate pressures for right ventricular systolic Discharge plan: To be determined Impression and plan of care have been directed as dictated by the signing physician. Amy Renteria nurse practitioner acting as scribe for signing physician.
[2017-11-17 14:42] LABS: ABG Base Excess -1.2 mmol/L; ABG HCO3 23 mmol/L (21-25); ABG PCO2 36 mmHg (35-45); ABG PH 7.42 (7.35-7.45); ABG PO2 393 mmHg (83-108); ABG Potassium Whole Blood 5.2 mmol/L (3.4-4.5); ABG Sodium Whole Blood 136 mmol/L (135-146); ABG TCO2 24 mmol/L (19-24)
[2017-11-17 15:15] LABS: ABG Base Excess -2.2 mmol/L; ABG HCO3 23 mmol/L (21-25); ABG PCO2 42 mmHg (35-45); ABG PH 7.35 (7.35-7.45); ABG PO2 327 mmHg (83-108); ABG Potassium Whole Blood 5.2 mmol/L (3.4-4.5); ABG Sodium Whole Blood 136 mmol/L (135-146); ABG TCO2 25 mmol/L (19-24)
[2017-11-17 16:05] LABS: ABG HCO3 20 mmol/L (21-25); ABG Oxygen Saturation 99.8 % (94-97); ABG PCO2 44 mmHg (35-45); ABG PH 7.28 (7.35-7.45); ABG PO2 284 mmHg (83-108); ABG Potassium Whole Blood 4.6 mmol/L (3.4-4.5); ABG Sodium Whole Blood 138 mmol/L (135-146); ABG TCO2 22 mmol/L (19-24)
[2017-11-17 16:23] LABS: ABG Base Excess -2.7 mmol/L; ABG HCO3 19 mmol/L (21-25); ABG Potassium Whole Blood 4.4 mmol/L (3.4-4.5); ABG Sodium Whole Blood 139 mmol/L (135-146); ABG TCO2 19 mmol/L (19-24)
[2017-11-17 16:26] LABS: ABG Base Excess -1.9 mmol/L; ABG HCO3 20 mmol/L (21-25); ABG Potassium Whole Blood 4.3 mmol/L (3.4-4.5); ABG Sodium Whole Blood 139 mmol/L (135-146); ABG TCO2 20 mmol/L (19-24)
[2017-11-17 17:22] LABS: ABG Base Excess -2.5 mmol/L; ABG HCO3 24 mmol/L (21-25); ABG Oxygen Saturation 99.9 % (94-97); ABG PCO2 47 mmHg (35-45); ABG PH 7.31 (7.35-7.45); ABG PO2 295 mmHg (83-108); ABG Potassium Whole Blood 3.8 mmol/L (3.4-4.5); ABG Sodium Whole Blood 142 mmol/L (135-146); ABG TCO2 25 mmol/L (19-24)
[2017-11-17 17:47] LABS: ABG PO2 >420 mmHg (83-108)
[2017-11-17 17:50] LABS: ABG HCO3 23 mmol/L (21-25); ABG Oxygen Saturation 99.4 % (94-97); ABG PCO2 37 mmHg (35-45); ABG PH 7.41 (7.35-7.45); ABG PO2 286 mmHg (83-108); ABG TCO2 2406 mmol/L (19-24)
[2017-11-17 17:51] LABS: ABG Potassium Whole Blood 5.5 mmol/L (3.4-4.5); ABG Sodium Whole Blood 143 mmol/L (135-146)
[2017-11-17 17:56] LABS: ABG PCO2 19 mmHg (35-45); ABG PO2 >420 mmHg (83-108)
[2017-11-17 17:57] LABS: ABG PCO2 20 mmHg (35-45)
[2017-11-17 17:58] LABS: ABG PO2 >420 mmHg (83-108)
[2017-11-17 18:10] LABS: ABG HCO3 22 mmol/L (21-25); ABG Oxygen Saturation 98.9 % (94-97); ABG PCO2 47 mmHg (35-45); ABG PH 7.29 (7.35-7.45); ABG PO2 124 mmHg (83-108); ABG Potassium Whole Blood 4.7 mmol/L (3.4-4.5); ABG Sodium Whole Blood 141 mmol/L (135-146); ABG TCO2 24 mmol/L (19-24)
[2017-11-17] MEDS ORDERED: Magnesium Replacement Protocol 1 EACH MISC MISCELLANE PRN (18:37)
[2017-11-17] MEDS ORDERED: BENZOCAINE/MENTHOL LOZENG 1 EACH LOZENGE MUCOUS MEM PRN (18:37)
[2017-11-17] MEDS ORDERED: METOCLOPRAMIDE 5 MG/ML 2 ML VIAL IVP PRN (18:37)
[2017-11-17] MEDS ORDERED: MORPHINE SULFATE 2 MG/ML SYRINGE IVP PRN (18:37)
[2017-11-17] MEDS ORDERED: Potassium Replacement Protocol 1 EACH MISC MISCELLANE PRN (18:37)
[2017-11-17] MEDS ORDERED: ALBUMIN HUMAN 5% 250 ML in EMPTY BAG 1 BAG IVPB PRN (18:37)
[2017-11-17] MEDS ORDERED: PROPOFOL 1,000 MG in EMPTY BAG 1 BAG IV SCH (18:37)
[2017-11-17] MEDS ORDERED: Phosphorus Replacement Protoco 1 EACH MISC MISCELLANE PRN (18:37)
[2017-11-17] MEDS: LACTATED RINGERS 1,000 ML IV SCH (18:45)
[2017-11-17] MEDS ORDERED: CALCIUM CHLORIDE 1,000 MG in SODIUM CHLORIDE 0.9% 100 ML IV PRN (19:00)
[2017-11-17] MEDS ORDERED: DOPamine DRIP 500 ML IV ONE (19:19)
[2017-11-17 19:20] LABS: Ionized Calcium 4.8 mg/dL (4.5-5.3)
[2017-11-17 19:20] LABS: Glucose,Whole Blood 179 mg/dL (75-99)
[2017-11-17 19:21] LABS: Anisocytosis Slight; Basophils % (A) 0 %; Eosinophils % (A) 0 %; HCT 24.9 % (39.0-53.0); Hypochromasia Slight; Lymphocytes # (A) 0.9 k/uL (1.0-4.8); Lymphocytes % (A) 9 %; MCHC 33.5 g/dL (31.0-37.0); MCV 89.4 fL (80.0-100.0); Mean Platelet Volume 9.1; Monocytes # (A) 0.7 k/uL (0-1.0); Monocytes % (A) 7 %; Neutrophils % (A) 81 %; Platelet Count 114 k/uL (150-450); RBC 2.78 m/uL (4.30-5.90); RDW 16.7 % (11.5-15.5); WBC 9.9 k/uL (3.8-10.6)
[2017-11-17 19:22] LABS: HGB 8.3 gm/dL (13.0-17.5)
[2017-11-17 19:28] LABS: ABG Base Excess -4.8 mmol/L; ABG HCO3 20 mmol/L (21-25); ABG PCO2 34 mmHg (35-45); ABG PH 7.38 (7.35-7.45); ABG PO2 >400 mmHg (83-108); ABG TCO2 21 mmol/L (19-24)
[2017-11-17 19:34] LABS: ALT 29 U/L (21-72); AST 50 U/L (17-59); Albumin 2.7 g/dL (3.5-5.0); Alkaline Phosphatase 48 U/L (38-126); Anion Gap 7 mmol/L; Blood Urea Nitrogen 16 mg/dL (9-20); Calcium 8.2 mg/dL (8.4-10.2); Carbon Dioxide 23 mmol/L (22-30); Chloride 109 mmol/L (98-107); Glucose 161 mg/dL (74-99); Magnesium 2.4 mg/dL (1.6-2.3); Potassium 4.5 mmol/L (3.5-5.1); Sodium 139 mmol/L (137-145); Total Bilirubin 1.6 mg/dL (0.2-1.3); Total Protein 4.4 g/dL (6.3-8.2)
--- NOTE | 2017-11-17 19:36 | XR ---
EXAMINATION: XR chest 1V portable, postoperative DATE AND TIME: 11/17/2017 7:22 PM ORDERING PROVIDER: Meli Malcolm CLINICAL INDICATION: Post Operative Cardiac Surgery TECHNIQUE: AP upright portable COMPARISON: 11/17/2017 at 8:29 AM SUPPORT TUBES, AND LINES, AND CATHETERS: ET tube tip superimposed over the mid trachea, at the level of the upper clavicular heads. NG tube present, with its port superimposed over the expected position of the esophagogastric junctio n with its tip superimposed over the gastric cardia. NG tube may be better placed 7 cm distally. Right IJ Marfa tip superimposed over the MPA. Right mediastinal drain is vertically oriented. Bilatera l chest tubes noted. Sternal sutures, aortic valve prosthesis, and mediastinal clips noted. CLINICAL FINDINGS: Small left-sided pneumothorax, scant right sided pneumothorax. Tiny left-sided pleural effusion is noted. No definite right-sided pleural effusion. The lungs are predominantly clear bilaterally with the exception of a 4 cm zone of groundglass opacit y which can be re-characterized on subsequent radiographs. Cardiac silhouette is moderately enlarged. IMPRESSION: POSTOPERATIVE CHEST X-RAY.
[2017-11-17 19:41] LABS: INR 1.5 (<1.2); Partial Thromboplastin Time 43.1 sec (22.0-30.0); Prothrombin Time 14.1 sec (9.0-12.0)
[2017-11-17] MEDS: SODIUM CHLORIDE 0.9% 99 ML with VASOPRESSIN 20 UNIT IV SCH ×2 (19:45)
[2017-11-17] MEDS ORDERED: IPRATROPIUM-ALBUTEROL 3 ML NEB INHALATION SCH (20:00)
[2017-11-17 20:08] LABS: Glucose,Whole Blood 175 mg/dL (75-99)
[2017-11-17] MEDS: INSULIN REGULAR 100 UNIT in SODIUM CHLORIDE 0.9% 100 ML IV SCH (20:10)
[2017-11-17] MEDS: CLEVIDIPINE BUTYRATE 25 MG in EMPTY BAG 1 BAG IV SCH (20:19)
[2017-11-17] MEDS: NITROGLYCERIN-D5W PMX 50 MG in DEXTROSE/WATER 1 250ML.BAG IV SCH (20:19)
[2017-11-17] MEDS: DOPamine DRIP 800 MG in DEXTROSE/WATER 1 500ML.BAG IV SCH (20:20)
[2017-11-17] MEDS: MILRINONE-D5W PMX 20 MG in DEXTROSE/WATER 1 100ML.BAG IV SCH (20:21)
[2017-11-17] MEDS: ACETAMINOPHEN IV (For NPO) 1,000 MG in EMPTY BAG 1 BAG IVPB SCH (20:22)
--- NOTE | 2017-11-17 20:27 | HP ---
HISTORY AND PHYSICAL DATE OF SURGERY: 11/17/2017. SURGEON: Dr. Lanie Borjas. ASSISTANTS: 1. Jonah Powell. 2. Jaden Tracy. PREOPERATIVE DIAGNOSES: 1. Triple-vessel coronary artery disease. 2. Severe ischemic cardiomyopathy. 3. Moderate mitral valve regurgitation. 4. Mild tricuspid valve regurgitation. 5. Diabetes mellitus. 6. Hyperlipidemia. 7. Moderate to severe restrictive lung disease. POSTOPERATIVE DIAGNOSES: 1. Triple-vessel coronary artery disease. 2. Severe ischemic cardiomyopathy. 3. Moderate mitral valve regurgitation. 4. Mild tricuspid valve regurgitation. 5. Diabetes mellitus. 6. Hyperlipidemia. 7. Moderate to severe restrictive lung disease. 8. Evidence of diffuse calcific coronary artery disease. 9. 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 PROCEDURES: 1. Quadruple coronary artery bypass grafting using the left internal mammary artery to the left anterior descending artery, reverse saphenous vein graft from the aorta to the diagonal artery, reverse saphenous vein graft from the aorta to the first obtuse marginal artery, reverse saphenous vein graft from the aorta to the posterior descending artery. 2. Mitral valve repair using a complete ring annuloplasty with a 30 mm Kapoor IMR ring. 3. Exclusion of the left atrial appendage using the 35 mm AtriClip. 4. Intraoperative transesophageal echocardiogram and epiaortic scanning. 5. Intraoperative graft flow measurements using the [employer] system. INDICATION FOR SURGERY: This patient is a 72-year-old gentleman, worked up for signs and symptoms of heart failure and found to have severe ischemic cardiomyopathy with moderate mitral valve regurgitation. He had evidence of an old inferior myocardial infarction on EKG. His echo showed severe left ventricular dysfunction with akinetic inferior posterior and septal luna and severely hypokinetic anterior wall with mild mitral valve regurgitation, moderate pulmonary hypertension. The patient was considered for high- risk coronary revascularization and mitral valve repair. He was brought into the hospital the day before surgery, where an intra-aortic balloon pump was inserted for procedural support. Plan was for coronary artery bypass grafting and mitral valve repair. The increased STS risk was discussed with him and his . They understood the risks and agreed to proceed. DESCRIPTION OF THE PROCEDURE: Patient in supine position. Right internal jugular Willow-Wendie catheter and right radial arterial line were placed. He subsequently was brought to the operating room. His cardiac index was 2 and PA pressure was 35/20. General endotracheal anesthesia was induced uneventfully. Fong catheter was exchanged to a temperature probe catheter. The patient received 2 grams of cefazolin. The chest, abdomen and both lower extremities were prepped and draped using ChloraPrep. Ioban was used to cover the skin. Transesophageal echocardiogram confirmed the preoperative finding of severe left ventricular dysfunction and moderate mitral valve regurgitation and mild tricuspid valve regurgitation without dilated tricuspid anulus. Midline sternotomy was performed and no bone wax was used. The left hemisternum was elevated and the left internal mammary artery was harvested in a semi- skeletonized fashion. I opened the left pleura and aspirated 1.5 L of a serous left pleural effusion and drained the pleura with a 28-Singaporean chest tube. The right pleura was also opened and I drained a total of 2.5 L of serous right pleural effusion and the cavity was drained with another 28-Singaporean chest tube. After administration of 5000 units of heparin, the mammary artery was clipped distally and transected. It had an excellent pulsatile flow in it and was around 1.75 mm in diameter. In the same setting, the left greater saphenous vein was harvested endoscopically between the groin and ankle level after administration of 1500 units of heparin. The patient's baseline ACT was elevated and his baseline PTT was 45 seconds. The leg incisions were closed over a drain. The vein was prepared and appeared to be of reasonable quality, around 4 mm in diameter. Mediastinal fat was transected between 2 ties and epiaortic scanning revealed concentric intimal thickening but no protruding atheroma in the ascending aorta. Pericardium was opened in an inverted T-fashion and a pericardial cradle was created. Findings included a normal-sized and soft aorta with an enlarged heart and evidence of diffuse calcific coronary artery disease. After placement of respective pledgeted pursestrings and systemic heparinization , aortic cannulation with a 21-[place]an Soft-Flow cannula, direct SVC cannulation with a right angle 28-Singaporean cannula and IVC cannulation at the junction with the right atrium with a 30-Sing[place]an venous cannula was performed. Antegrade as well as retrograde cardioplegia catheters were placed. Cardiopulmonary bypass was initiated, and with the heart empty, we looked at the target. The right coronary artery was totally calcified and the posterior descending artery had diffuse disease in it. There was one spot with soft anterior wall that we picked for bypass in its mid aspect. Looking at the left anterior descending artery, also it was diffusely diseased and we picked a spot in its mid aspect with an eccentric plaque for bypass. The diagonal artery also was diffusely diseased, and there was one soft spot that also was selected for bypass. Looking at the lateral wall, we were able to identify that totally occluded first obtuse marginal artery that appeared to be diffusely diseased, but it was the only potential target at that level, and we picked also a spot in the middle of it for potential bypass. The apical and inferoposterior luna showed umbilication reflecting thinned-out muscles from old myocardial infarction. Aorta was clamped and myocardial protection was achieved with an initial dose of antegrade cold blood cardioplegia followed by a dose of retrograde cold blood cardioplegia. All subsequent doses were given via the retrograde route and via the initially constructed vein graft to the obtuse marginal artery for optimal protection of the lateral wall. So the first distal anastomosis was between a segment of reverse saphenous vein graft and the diffusely diseased first obtuse marginal artery which was around 1.4 mm in diameter using Prolene 7-0 in continuous fashion. That vein was connected to a sidearm under retrograde cardioplegia delivery system. The second distal anastomosis was between another segment of reverse saphenous vein graft of good quality and the mid aspect of the posterior descending artery which was opened. It was large; however, it was diseased. This was accomplished using Prolene 7-0 in continuous fashion. The third distal anastomosis was between another segment of reverse saphenous vein graft and the diagonal artery, which was around 1.5 mm in diameter, diffusely diseased, using Prolene 7-0 in continuous fashion. The fourth and last distal anastomosis was between the left internal mammary artery and the 1.75 mm diffusely diseased left anterior descending artery using Prolene 7-0 in continuous fashion. At this point we excluded the left atrial appendage with a 35 mm AtriClip. Attention was moved to performing the mitral valve part. We used a Shona mitral retractor. Both cava had been encircled, but they were not snared. A standard left atriotomy was performed and exploration of the mitral valve revealed dilated anulus with some calcification at the level of the posterior anulus, but I still thought that the mitral was repairable. A total of 9 sutures of ticron 2-0 non-pledgeted were passed all along the perimeter of the anulus of the mitral valve. The anulus was measured at around 34 mm and I selected a 30 mm Kapoor IMR ETlogix ring, downsizing by 2 sizes. All the sutures were passed symmetrically into the ring, which was seated. The needles were cut and the sutures tied using the Cor-Knot device. Testing of the valve at this point revealed excellent seal. With that, the left atriotomy was closed using Prolene 3-0 pledgeted on each corner and meeting in the midline. CO2 was flowing over the field as long as the left-sided cavities were open. Rewarming was started and we punched out 3 buttons of the ascending aorta and completed the 3 proximal venous anastomoses using Prolene 6-0 in continuous fashion. The intraaortic balloon pump was kept on internal mode during bypass. The patient was loaded with Primacor and received lidocaine and magnesium before unclamping the aorta. He slowly regained spontaneous sinus rhythm and did not require any defibrillation. We started Levophed and low-dose vasopressin in view of his long- standing heart failure over several months. We eventually weaned off cardiopulmonary bypass. We added low-dose epinephrine for optimal hemodynamics, as the hemodynamics were borderline. De-airing was guided by IPLAR. PILAR showed improved right ventricular function and still moderate to severe left ventricular dysfunction. The anterior wall showed improvement in its contraction. There was no mitral valve regurgitation. At this point we proceeded with the graft flow measurements. The graft flow into the mammary artery was around 100 mL/minute, pulsatility index of 1.1, diastolic filling of 77%, showing an excellent graft. The flow into the vein going to the diagonal artery was also excellent at 83 mL/minute, pulsatility index of 2.2, diastolic filling of 62%, showing an excellent graft. The flow into the vein to the obtuse marginal artery was 24 mL/minute, pulsatility index 6.8, diastolic filling of 56%, which we thought is very acceptable in view of the quality of that target. The flow into the posterior descending artery was around 10 mL/minute with high pulsatility index. I was not sure if this was due to the poor target or to a technical problem. I made an opening about 2 cm from the anastomosis and passed a 1 mm probe into the anastomosis, and it went distally with no problem. However, the flow did not improve. For that reason I elected to repeat that distal anastomosis on an empty beating heart. I used the Acrobat stabilizer for that reason, took down the PDA anastomosis, inserted a 1.5 mm shunt and completed it again using Prolene 7-0 in continuous fashion. The vein was de- aired before completing the anastomosis. We weaned off cardiopulmonary bypass again, and measurements did not really improve much, proving that the parameters are due to again a severe coronary artery disease and limited outflow.. Test-dose and full-dose protamine was given. One 32-Singaporean chest tube was placed. A groove was made in the left pleuropericardial fat to accommodate the mammary artery medial to the lung and away from the posterior sternal table. There was not much of mediastinal or pericardial fat to close over the heart. After ensuring adequate hemostasis and hemodynamics and after correct sponge, instrument and needle counts, the sternum was closed using 5 [id number] Pionneer cables after interposing Fibrillar between the sternal edges. Thorough irrigation with cefazolin followed. The rest of the closure proceeded in layers. Skin glue was applied. The patient received 3 units of packed red blood cells, 2 units FFP and 6 units of platelets. He was transferred to the ICU on Primacor, epinephrine, Levophed, vasopressin, and intra-aortic balloon pump with a cardiac index of 3.2, PA pressure of 30/12, CVP of 12 and an EKG showing normal sinus rhythm at around 80. KATH / IJN: [id number] / MTDD
[2017-11-17 21:05] LABS: Glucose,Whole Blood 227 mg/dL (75-99)
[2017-11-17 21:31] LABS: Anisocytosis Slight; Basophils % (A) 0 %; Eosinophils % (A) 0 %; HCT 23.8 % (39.0-53.0); Hypochromasia Slight; Lymphocytes # (A) 0.3 k/uL (1.0-4.8); Lymphocytes % (A) 3 %; MCH 30.1 pg (25.0-35.0); MCHC 33.9 g/dL (31.0-37.0); Mean Platelet Volume 9.3; Monocytes # (A) 0.5 k/uL (0-1.0); Monocytes % (A) 6 %; Neutrophils # (A) 7.4 k/uL (1.3-7.7); Neutrophils % (A) 89 %; RBC 2.67 m/uL (4.30-5.90); RDW 16.7 % (11.5-15.5); WBC 8.4 k/uL (3.8-10.6)
[2017-11-17 21:32] LABS: Platelet Count 84 k/uL (150-450)
[2017-11-17 22:06] LABS: Glucose,Whole Blood 237 mg/dL (75-99)
[2017-11-17] MEDS: MUPIROCIN 2% OINT 22 GM TUBE NASAL SCH (22:30)
[2017-11-17] MEDS ORDERED: DESMOPRESSIN ACETATE 4 MCG/ML VIAL (MDV) IVPB STA (23:14)
[2017-11-17 23:25] LABS: Glucose,Whole Blood 209 mg/dL (75-99)
[2017-11-17] MEDS ORDERED: DESMOPRESSIN INJ 23 MCG in SODIUM CHLORIDE 0.9% 50 ML IVPB ONE (23:30)
[2017-11-18] LABS: Glucose,Whole Blood 197 mg/dL (75-99)
[2017-11-18] MEDS: ceFAZolin IN SWFI 2 GM/20 ML SYRINGE IVP SCH ×3 (00:11→15:56)
[2017-11-18] MEDS: ACETAMINOPHEN IV (For NPO) 1,000 MG in EMPTY BAG 1 BAG IVPB SCH ×4 (00:12→18:27)
[2017-11-18 00:16] LABS: Anisocytosis Slight; HCT 24.3 % (39.0-53.0); HGB 7.9 gm/dL (13.0-17.5); MCH 28.1 pg (25.0-35.0); MCHC 32.4 g/dL (31.0-37.0); MCV 86.8 fL (80.0-100.0); Mean Platelet Volume 8.7; Platelet Count 124 k/uL (150-450); Poikilocytosis Slight; RDW 16.3 % (11.5-15.5); WBC 9.1 k/uL (3.8-10.6)
[2017-11-18] MEDS: HEPARIN SODIUM,PORCINE 5,000 UNIT/ML 1 ML VIAL SQ SCH ×3 (00:19→15:53)
[2017-11-18 01:08] LABS: Glucose,Whole Blood 183 mg/dL (75-99)
[2017-11-18 02:19] LABS: Glucose,Whole Blood 175 mg/dL (75-99)
[2017-11-18] MEDS ORDERED: NOREPINEPHRIN 4 MG-0.9% NS PMX 4 MG/250 ML ML IV ONE (02:42)
[2017-11-18 02:55] LABS: Anisocytosis Slight; HCT 22.1 % (39.0-53.0); HGB 7.3 gm/dL (13.0-17.5); Hypochromasia Slight; MCH 28.8 pg (25.0-35.0); MCHC 32.9 g/dL (31.0-37.0); MCV 87.4 fL (80.0-100.0); Mean Platelet Volume 9.4; Platelet Count 110 k/uL (150-450); Poikilocytosis Slight; RBC 2.53 m/uL (4.30-5.90); RDW 16.4 % (11.5-15.5); WBC 8.8 k/uL (3.8-10.6)
[2017-11-18 03:08] LABS: Glucose,Whole Blood 160 mg/dL (75-99)
[2017-11-18] MEDS: NOREPINEPHRIN 16 MG-0.9%NS PMX 16 MG/250 ML ML IV SCH (03:11)
[2017-11-18] MEDS: IPRATROPIUM-ALBUTEROL 3 ML NEB INHALATION PRN ×2 (03:24→11:32)
[2017-11-18 04:06] LABS: Glucose,Whole Blood 156 mg/dL (75-99)
[2017-11-18] MEDS: MILRINONE-D5W PMX 20 MG in DEXTROSE/WATER 1 100ML.BAG IV SCH ×3 (04:59→21:00)
[2017-11-18 05:05] LABS: Glucose,Whole Blood 137 mg/dL (75-99)
[2017-11-18 05:21] LABS: Anisocytosis Slight; Basophils % (A) 0 %; Eosinophils % (A) 0 %; HCT 21.5 % (39.0-53.0); HGB 7.2 gm/dL (13.0-17.5); Hypochromasia Slight; Ionized Calcium 4.9 mg/dL (4.5-5.3); Lymphocytes # (A) 0.5 k/uL (1.0-4.8); Lymphocytes % (A) 7 %; MCH 29.2 pg (25.0-35.0); MCHC 33.4 g/dL (31.0-37.0); MCV 87.3 fL (80.0-100.0); Mean Platelet Volume 9.1; Monocytes # (A) 0.7 k/uL (0-1.0); Monocytes % (A) 8 %; Neutrophils # (A) 6.8 k/uL (1.3-7.7); Neutrophils % (A) 82 %; Platelet Count 122 k/uL (150-450); Poikilocytosis Slight; RBC 2.46 m/uL (4.30-5.90); RDW 16.6 % (11.5-15.5); WBC 8.3 k/uL (3.8-10.6)
[2017-11-18 05:29] LABS: INR 1.3 (<1.2); Partial Thromboplastin Time 33.4 sec (22.0-30.0); Prothrombin Time 12.2 sec (9.0-12.0)
[2017-11-18 05:30] LABS: ALT 29 U/L (21-72); AST 68 U/L (17-59); Albumin 2.9 g/dL (3.5-5.0); Alkaline Phosphatase 37 U/L (38-126); Anion Gap 7 mmol/L; Blood Urea Nitrogen 19 mg/dL (9-20); Carbon Dioxide 25 mmol/L (22-30); Chloride 107 mmol/L (98-107); Glucose 131 mg/dL (74-99); Magnesium 2.2 mg/dL (1.6-2.3); Potassium 4.2 mmol/L (3.5-5.1); Sodium 139 mmol/L (137-145); Total Bilirubin 0.7 mg/dL (0.2-1.3); Total Protein 4.7 g/dL (6.3-8.2)
[2017-11-18 05:34] LABS: ABG Base Excess -1.2 mmol/L; ABG HCO3 24 mmol/L (21-25); ABG PCO2 40 mmHg (35-45); ABG PH 7.39 (7.35-7.45); ABG PO2 217 mmHg (83-108); ABG TCO2 25 mmol/L (19-24)
[2017-11-18 06:46] LABS: Glucose,Whole Blood 131 mg/dL (75-99)
[2017-11-18 08:00] LABS: Glucose,Whole Blood 112 mg/dL (75-99)
[2017-11-18] MEDS: IPRATROPIUM-ALBUTEROL 3 ML NEB INHALATION SCH ×2 (08:38→20:53)
--- NOTE | 2017-11-18 08:40 | PN ---
PROGRESS NOTE Mr. Silva is a 72-year-old male with a history of ischemic cardiomyopathy, mitral regurgitation, severe triple-vessel coronary artery disease, who underwent coronary artery bypass grafting yesterday after placement of intra-aortic balloon pump. During the night, he had episode of hypotension requiring pressors. He continued to have the intra-aortic balloon pump. He has underwent a [place] to LAD, saphenous vein graft to diagonal branch, saphenous vein graft to the first obtuse marginal branch into the PDA with mitral valve repair and exclusion of the left atrial appendage. His urine output has been stable. He is in sinus mechanism. His sedation has been decreased and he is starting to wake up. He continues to be on Levophed, dopamine, vasopressin and Primacor. PHYSICAL EXAMINATION: Blood pressure 107/50 with a PA pressure systolic 33, pulse in the 80s. LUNGS: No wheezes anteriorly. HEART: Regular rate and rhythm. S1, S2. No rub appreciated. ABDOMEN: Soft. Hypoactive bowel sounds. No organomegaly. EXTREMITIES: No edema noted. LAB DATA: Revealed a hemoglobin of 7.2. His BUN and creatinine 19 and 0.8. His AST is 68, ALT of 29. His chest x-ray showed mild increased markings, but no infiltrates and a small effusion. IMPRESSION: 1. Status post coronary artery bypass grafting and mitral valve repair. 2. Cardiomyopathy. 3. Hyperlipidemia. 4. Hypotension, improving. 5. History of diabetes mellitus. RECOMMENDATION: From the cardiac standpoint, we will continue to wean his pressors gradually. I am hopeful that we can wean him and extubate him today. I will continue the intra-aortic pump to support until he is off his pressors. Depending on his progress, further recommendation will be made. MMODL / IJN: [id number] /
[2017-11-18] MEDS: ASPIRIN 325 MG TAB PO SCH (08:42)
[2017-11-18] MEDS: MUPIROCIN 2% OINT 22 GM TUBE NASAL SCH ×2 (08:42→20:59)
[2017-11-18] MEDS: ATORVASTATIN 40 MG TAB PO SCH (08:42)
[2017-11-18] MEDS: METOPROLOL TARTRATE 12.5 MG TAB PO SCH ×2 (08:42→20:31)
[2017-11-18] MEDS: CLOPIDOGREL 75 MG TAB PO SCH (08:42)
[2017-11-18] MEDS: PANTOPRAZOLE 40 MG/10 ML VIAL IVP SCH (08:43)
--- NOTE | 2017-11-18 08:49 | XR ---
EXAMINATION TYPE: XR chest 1V portable DATE OF EXAM: 11/18/2017 Comparison: 11/17/2017 Clinical History: 72-year-old male Post Operative Cardiac Surgery Findings: Satisfactory ET tube. NG tube courses below the diaphragm. Right IJ sheath is present with [place]-Wendie catheter at the main pulmonary outflow tract. Median sternotomy wires with post-CABG clips. Bilateral chest tubes are present. Suspected trace left apical pneumothorax. Prominent skin folds were present in this region on the prior study. Small pleural effusions with adjacent opacity. Retained epicardia l pacer leads and mediastinal drains. An annuloplasty ring is also noted. Impression: Trace left apical pneumothorax now demonstrated. Small bilateral pleural effusions with adjacent atel ectasis and/or consolidation persists.
[2017-11-18 09:02] LABS: Glucose,Whole Blood 111 mg/dL (75-99)
--- NOTE | 2017-11-18 09:36 | P.PN ---
Subjective Progress Note Date: 11/18/17 Mr. Silva is a 72-year-old white male patient of Dr. Wong, who presented today on 11/16/2017 for elective placement of intra-aortic balloon pump in preparation for three-vessel coronary artery bypass graft surgery and mitral valve repair for severe mitral valve insufficiency and ischemic cardiomyopathy with severely impaired systolic dysfunction. Surgery is scheduled for tomorrow 11/17/[address] Borjas. Patient has been having progressive exertional dyspnea for the last 2 years, and last 3 months patient started experiencing severe limitation of his exercise capacity, becoming quite dyspneic while climbing a flight of stairs. Patient denied any chest pain, palpitations, syncopal episodes. Patient started experiencing bilateral lower extremity edema , and he presented to his PCP for evaluation of his symptoms. Patient has been quite active in sports during his lifetime, in swimming and running. 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 Does not have any chronic pulmonary conditions, has a remote history of smoking, quit 40 years ago , smoked a pack a day for about 5 years. No marijuana use, no EtOH, or recreational drugs. 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 Patient had a heart catheterization on 11/09/2017 which showed calcification of left main coronary artery, with mild to moderate atherosclerotic plaque in the ostial portion, circumflex with a 95% stenosis, complete occlusion of the LAD just off to the origin of the large diagonal branch, and 70% stenosis of the diagonal branch. Diffuse disease in the RCA, with a 70% stenosis at the bifurcation into PDA and PLV, and significant disease in the PDA and PLV. All the vessels were noted to be irregular, ectatic and in places aneurysmal. LVEDP was 31 mm, without significant gradient across the aortic valve. PILAR on 11/10/2017 showed ischemic cardiomyopathy with severe left ventricular systolic dysfunction, akinetic inferior wall and the septum, hypokinetic anterior wall. Moderate pulmonary hypertension and moderate mitral regurgitation. Patient was recommended surgical intervention for his symptoms, and he opted for three- vessel coronary artery bypass grafting and mitral valve repair tomorrow. Bedside spirometry was reviewed and showed FEV1 of 1.35 L or 43% of predicted, FVC of 1.65 L or 38% of predicted, consistent with severe restriction. Preop chest x-ray from 11/10/2017 showed mild cardiomegaly with small to moderate- sized right greater than the left pleural effusions and associated compressive atelectasis. Patient is seen in the intensive care, resting in bed, room air pulse ox is 92-97%, he denies any dyspnea, he is afebrile, intra-aortic balloon pump is in place, via right femoral artery. He is currently on 1:1 IABP frequency, with augmented diastolic pressure of 131 mmHg. Distal pulses are intact, sensory status is intact. Fong catheter is in place, patient is nonoliguric. Radial pulses are intact. Patient is on heparin drip at 12 u/kg/ hr. No other drips. He is on oral Lasix at 40 mg daily. Currently resting in bed, in no acute distress. On 11/18/2017 the patient is being seen for a follow-up. Note that he had a prolonged surgery which involved a 4-vessel bypass surgery and mitral valve repair. The patient arrived to the intensive care unit around 7 PM in the evening. He was on an intra-aortic balloon pump. He was also inotropes. Chest x-ray was reviewed. The patient adequate expansion of both lungs. The patient a mediastinal chest tube in the right and left pleural chest tubes. Output from the chest as was considerably high especially from the mediastinal chest tube. Overnight the patient required a total of 4 units of packed RBCs and 4 units of 4 shows and plasma and 2 units of platelets and he also received DDAVP. He received also IV fluids in the form of crystalloids and colloids. The output from the sun chest gradually improved and earlier this morning it was only putting out 20 mL an hour and currently Dopplers somewhere between 20- 40 mL an hour. As for the right pleural chest tubes output initially was initially low and then picked up and it's up to 60-80 mL an hour. The left pleural chest tube is putting out 50 mL an hour. The patient is currently on norepinephrine infusion at 7 g per KG pigmented minutes. He is also on methadone at 0.3 g per KG pigmented minutes. He is also on vasopressin and dopamine. He is also on intra-aortic balloon pump with one-to-one augmentation. The augmented blood pressure is 91. Attempts to cut down the augmentation through the intra-aortic balloon pump has failed as the patient is pressure urine output. In terms of his respiratory status, the patient is a mechanical ventilator. He is currently on assist control mode of ventilation at the rate of 12 with an FiO2 of 4040% and a PEEP of 5 and FiO2 has been drop down to 40% and tidal volumes of 500. The morning blood gases showed a pH of 7.39 with a pCO2 of 40 and pO2 of 217, and note that this was done and FiO2 of 100%. His current FiO2 is down to 40%. Renal function stable with a creatinine of 0.8. Rest of the electrodes are all within normal limits. Correlation profile is within normal limits. Most recent hemoglobin is at 7.3. The patient was sedated with Diprivan and the patient is currently off Diprivan and when it parameters are being checked. Urine output is in order of 30-40 mL an hour over the past 2 hours. His most recent blood sugar is at 137. Objective - Vital Signs Vital signs: Vital Signs Temp 95.4 F L 11/17/17 22:23 Pulse 88 11/18/17 09:00 Resp 12 11/18/17 04:00 BP 94/43 11/17/17 22:23 Pulse Ox 100 11/18/17 09:00 Intake & Output 11/17/17 11/18/17 11/18/17 18:59 06:59 18:59 Intake Total 1673 3891.403 404.82 Output Total 3577 2828 465 Balance -1904 1063.403 -60.18 Weight 77.2 kg Intake: IV 4 1059.6 393.7 ACETAMINOPHEN IV (For NPO 200 100 ) 1,000 mg In Empty Bag 1 bag @ 400 mls/hr IVPB Q6HR JANNA Rx#:[id number] CO/CI 300 90 Desmopressin Inj 23 mcg 50 In Sodium Chloride 0.9% 50 ml @ 200 mls/hr IVPB ONCE ONE Rx#:[id number] IABP pressure bag 42 9 Lactated Ringers 1,000 ml 175 120 @ 50 mls/hr IV .Q20H JANNA Rx#:[id number] Milrinone-D5w Pmx 20 mg 127.6 20.7 In Dextrose/Water 1 100ml .bag @ 0.3 MCG/KG/MIN 6. 99 mls/hr IV .[id number] JANNA Rx#:[id number] Pressure Bags 90 27 Sodium Chloride 0.9% 99 75 27 ml @ 0.03 UNITS/MIN 9 mls /hr IV .Q11H7M ONE with Vasopressin 20 unit Rx#: [id number] Intake, IV Titration 139.803 11.12 Amount DOPamine DRIP 800 mg In 0.097 Dextrose/Water 1 500ml. bag @ 2 MCG/KG/MIN 5.82 mls/hr IV .Q24H [facility] Rx#: [id number] Insulin Regular 100 unit 39.706 11.12 In Sodium Chloride 0.9% 100 ml @ Per Protocol IV .Q0M [facility] Rx#:[id number] Milrinone-D5w Pmx 20 mg 100 In Dextrose/Water 1 100ml .bag @ 0.3 MCG/KG/MIN 6. 99 mls/hr IV .[id number] [facility] Rx#:[id number] Blood Product 3889 4592 Ffp 24 Cpd Unit 344 [id number] Ffp 24 Cpd Unit 317 [id number] Ffp 24 Cpda Unit 230 [id number] Ffp 24 Cpda Unit 200 [id number] Platelet Pheresis Acda 604 Unit [id number] Platelet Pheresis Acda2 195 Unit [id number] Rc As-1 Unit 310 [id number] Rc As-1 Unit 310 [id number] Rc As-1 Unit 310 [id number] Rc Irr As1 Unit 310 [id number] Output: Chest Tube Drainage 227 1919 360 Chest Tube Mediastinal 37 1054 80 left pleural 30 375 65 right pleural 160 490 215 Drainage 120 Left Calf 120 Urine 350 789 105 Estimated Blood Loss 3000 Other: Voiding Method Indwelling Catheter ABP, PAP, CO, CI - Last Documented Arterial Blood Pressure 109/52 Pulmonary Artery Pressure 36/20 Cardiac Output 5.9 Cardiac Index 3.0 - Exam GENERAL EXAM: Patient is currently intubated on a mechanical ventilator and his still sedated while off Diprivan. Orogastric and orotracheal tube are both in place. The patient is a right IJ Castlewood-Wendie catheter which is in place. HEAD: Normocephalic/atraumatic. The patient is intubated on a mechanical ventilator. EYES: Normal reaction of pupils, equal size. Conjunctiva pink, sclera white. NOSE: Clear with pink turbinates. THROAT: No erythema or exudates. NECK: No masses, no JVD, no thyroid enlargement, no adenopathy. The patient is a right IJ Castle[place]-Wendie catheter. CHEST: No chest wall deformity. Symmetrical expansion. Breath sounds are equal and symmetrical. Sternum stable clean and intact. All of the chest tubes are in place as the patient is a mediastinal chest tube and the right pleural and left pleural chest tube. LUNGS: Equal air entry with no crackles, wheeze, rhonchi or dullness. CVS: Regular rate and rhythm, normal S1 and S2, no gallops, no rubs, systolic murmur at the apex. IABP via right femoral approach present, 1:1 frequency, distal pulses and sensory status intact ABDOMEN: Soft, nontender. No hepatosplenomegaly, normal bowel sounds, no guarding or rigidity. EXTREMITIES: No clubbing, no edema, no cyanosis, 2+ pulses and upper and lower extremities. MUSCULOSKELETAL: Muscle strength and tone normal. SPINE: No scoliosis or deformity SKIN: No rashes CENTRAL NERVOUS SYSTEM: Arousable upon stimulation No focal deficits, tone is normal in all 4 extremities. PSYCHIATRIC: Cannot be assessed - Labs CBC & Chem 7: 11/18/17 05:00 11/18/17 05:00 Labs: Abnormal Lab Results - Last 24 Hours (Table) 11/10/17 11/17/17 11/17/17 Range/Units 14:36 09:28 11:42 RBC (4.30-5.90) m/uL Hgb (13.0-17.5) gm/dL Hct (39.0-53.0) % RDW (11.5-15.5) % Plt Count (150-450) k/uL Neutrophils # (1.3-7.7) k/uL Lymphocytes # (1.0-4.8) k/uL PT (9.0-12.0) sec INR (<1.2) APTT (22.0-30.0) sec ABG pH 7.46 H (7.35-7.45) ABG pCO2 33 L (35-45) mmHg ABG pO2 266 H 209 H (83-108) mmHg ABG HCO3 (21-25) mmol/L ABG Total CO2 25 H 25 H (19-24) mmol/L ABG O2 Saturation 100.0 H 99.9 H (94-97) % ABG Hematocrit 32 L 28 L (34.0-46.0) % ABG Potassium (3.4-4.5) mmol/L ABG Ionized Calcium (4.5-5.3) mg/dL ABG Glucose 100 H 125 H (75-99) mg/dL ABG Lactic Acid (0.5-1.6) mmol/L Hemoglobin 10.3 L 9.2 L (13.0-17.5) gm/dL Chloride (98-107) mmol/L Glucose (74-99) mg/dL POC Glucose (mg/dL) (75-99) mg/dL Calcium (8.4-10.2) mg/dL Magnesium (1.6-2.3) mg/dL Total Bilirubin (0.2-1.3) mg/dL AST (17-59) U/L Alkaline Phosphatase (38-126) U/L Total Protein (6.3-8.2) g/dL Albumin (3.5-5.0) g/dL Arterial Blood Potassium (3.4-4.5) mmol/L Arterial Blood Glucose 100 H 125 H (75-99) mg/dL Crossmatch See Detail 11/17/17 11/17/17 11/17/17 Range/Units 12:27 13:06 13:49 RBC (4.30-5.90) m/uL Hgb (13.0-17.5) gm/dL Hct (39.0-53.0) % RDW (11.5-15.5) % Plt Count (150-450) k/uL Neutrophils # (1.3-7.7) k/uL Lymphocytes # (1.0-4.8) k/uL PT (9.0-12.0) sec INR (<1.2) APTT (22.0-30.0) sec ABG pH (7.35-7.45) ABG pCO2 34 L (35-45) mmHg ABG pO2 >420 H 291 H 279 H (83-108) mmHg ABG HCO3 (21-25) mmol/L ABG Total CO2 25 H 25 H (19-24) mmol/L ABG O2 Saturation 100.0 H 100.0 H 100.0 H (94-97) % ABG Hematocrit 21 L 22 L 22 L (34.0-46.0) % ABG Potassium 5.0 H 4.9 H (3.4-4.5) mmol/L ABG Ionized Calcium 4.1 L 4.2 L 4.2 L (4.5-5.3) mg/dL ABG Glucose 120 H 168 H 180 H (75-99) mg/dL ABG Lactic Acid (0.5-1.6) mmol/L Hemoglobin 6.8 L* 7.1 L 7.0 L* (13.0-17.5) gm/dL Chloride (98-107) mmol/L Glucose (74-99) mg/dL POC Glucose (mg/dL) (75-99) mg/dL Calcium (8.4-10.2) mg/dL Magnesium (1.6-2.3) mg/dL Total Bilirubin (0.2-1.3) mg/dL AST (17-59) U/L Alkaline Phosphatase (38-126) U/L Total Protein (6.3-8.2) g/dL Albumin (3.5-5.0) g/dL Arterial Blood Potassium 5.0 H 4.9 H (3.4-4.5) mmol/L Arterial Blood Glucose 120 H 168 H 180 H (75-99) mg/dL Crossmatch 11/17/17 11/17/17 11/17/17 Range/Units 14:17 14:44 15:17 RBC (4.30-5.90) m/uL Hgb (13.0-17.5) gm/dL Hct (39.0-53.0) % RDW (11.5-15.5) % Plt Count (150-450) k/uL Neutrophils # (1.3-7.7) k/uL Lymphocytes # (1.0-4.8) k/uL PT (9.0-12.0) sec INR (<1.2) APTT (22.0-30.0) sec ABG pH (7.35-7.45) ABG pCO2 (35-45) mmHg ABG pO2 286 H 393 H 327 H (83-108) mmHg ABG HCO3 (21-25) mmol/L ABG Total CO2 2406 H 25 H (19-24) mmol/L ABG O2 Saturation 99.4 H 100.0 H 100.0 H (94-97) % ABG Hematocrit 22 L 21 L 20 L* (34.0-46.0) % ABG Potassium 5.5 H 5.2 H 5.2 H (3.4-4.5) mmol/L ABG Ionized Calcium 4.2 L 4.1 L 4.2 L (4.5-5.3) mg/dL ABG Glucose 190 H 197 H 196 H (75-99) mg/dL ABG Lactic Acid 2.0 H (0.5-1.6) mmol/L Hemoglobin 7.2 L 7.0 L* 6.6 L* (13.0-17.5) gm/dL Chloride (98-107) mmol/L Glucose (74-99) mg/dL POC Glucose (mg/dL) (75-99) mg/dL Calcium (8.4-10.2) mg/dL Magnesium (1.6-2.3) mg/dL Total Bilirubin (0.2-1.3) mg/dL AST (17-59) U/L Alkaline Phosphatase (38-126) U/L Total Protein (6.3-8.2) g/dL Albumin (3.5-5.0) g/dL Arterial Blood Potassium 5.5 H 5.2 H 5.2 H (3.4-4.5) mmol/L Arterial Blood Glucose 190 H 197 H 196 H (75-99) mg/dL Crossmatch 11/17/17 11/17/17 11/17/17 Range/Units 16:07 16:27 16:28 RBC (4.30-5.90) m/uL Hgb (13.0-17.5) gm/dL Hct (39.0-53.0) % RDW (11.5-15.5) % Plt Count (150-450) k/uL Neutrophils # (1.3-7.7) k/uL Lymphocytes # (1.0-4.8) k/uL PT (9.0-12.0) sec INR (<1.2) APTT (22.0-30.0) sec ABG pH 7.28 L 7.60 H* 7.60 H* (7.35-7.45) ABG pCO2 19 L* 20 L* (35-45) mmHg ABG pO2 284 H >420 H >420 H (83-108) mmHg ABG HCO3 20 L 19 L 20 L (21-25) mmol/L ABG Total CO2 (19-24) mmol/L ABG O2 Saturation 99.8 H 100.0 H 100.0 H (94-97) % ABG Hematocrit 23 L 19 L* 19 L* (34.0-46.0) % ABG Potassium 4.6 H (3.4-4.5) mmol/L ABG Ionized Calcium 4.0 L 3.5 L* 3.6 L (4.5-5.3) mg/dL ABG Glucose 198 H 144 H 147 H (75-99) mg/dL ABG Lactic Acid 3.3 H* 2.7 H* 2.8 H* (0.5-1.6) mmol/L Hemoglobin 7.6 L 6.2 L* 6.1 L* (13.0-17.5) gm/dL Chloride (98-107) mmol/L Glucose (74-99) mg/dL POC Glucose (mg/dL) (75-99) mg/dL Calcium (8.4-10.2) mg/dL Magnesium (1.6-2.3) mg/dL Total Bilirubin (0.2-1.3) mg/dL AST (17-59) U/L Alkaline Phosphatase (38-126) U/L Total Protein (6.3-8.2) g/dL Albumin (3.5-5.0) g/dL Arterial Blood Potassium 4.6 H (3.4-4.5) mmol/L Arterial Blood Glucose 198 H 144 H 147 H (75-99) mg/dL Crossmatch 11/17/17 11/17/17 11/17/17 Range/Units 17:23 18:12 19:00 RBC (4.30-5.90) m/uL Hgb (13.0-17.5) gm/dL Hct (39.0-53.0) % RDW (11.5-15.5) % Plt Count (150-450) k/uL Neutrophils # (1.3-7.7) k/uL Lymphocytes # (1.0-4.8) k/uL PT 14.1 H (9.0-12.0) sec INR 1.5 H (<1.2) APTT 43.1 H (22.0-30.0) sec ABG pH 7.31 L 7.29 L (7.35-7.45) ABG pCO2 47 H 47 H (35-45) mmHg ABG pO2 295 H 124 H (83-108) mmHg ABG HCO3 (21-25) mmol/L ABG Total CO2 25 H (19-24) mmol/L ABG O2 Saturation 99.9 H 98.9 H (94-97) % ABG Hematocrit 21 L 24 L (34.0-46.0) % ABG Potassium 4.7 H (3.4-4.5) mmol/L ABG Ionized Calcium 3.8 L (4.5-5.3) mg/dL ABG Glucose 158 H 165 H (75-99) mg/dL ABG Lactic Acid 3.1 H* 3.5 H* (0.5-1.6) mmol/L Hemoglobin 6.7 L* 7.7 L (13.0-17.5) gm/dL Chloride (98-107) mmol/L Glucose (74-99) mg/dL POC Glucose (mg/dL) (75-99) mg/dL Calcium (8.4-10.2) mg/dL Magnesium (1.6-2.3) mg/dL Total Bilirubin (0.2-1.3) mg/dL AST (17-59) U/L Alkaline Phosphatase (38-126) U/L Total Protein (6.3-8.2) g/dL Albumin (3.5-5.0) g/dL Arterial Blood Potassium 4.7 H (3.4-4.5) mmol/L Arterial Blood Glucose 158 H 165 H (75-99) mg/dL Crossmatch 11/17/17 11/17/17 11/17/17 Range/Units 19:00 19:00 19:02 RBC 2.78 L (4.30-5.90) m/uL Hgb 8.3 L D (13.0-17.5) gm/dL Hct 24.9 L (39.0-53.0) % RDW 16.7 H (11.5-15.5) % Plt Count 114 L (150-450) k/uL Neutrophils # 8.0 H (1.3-7.7) k/uL Lymphocytes # 0.9 L (1.0-4.8) k/uL PT (9.0-12.0) sec INR (<1.2) APTT (22.0-30.0) sec ABG pH (7.35-7.45) ABG pCO2 (35-45) mmHg ABG pO2 (83-108) mmHg ABG HCO3 (21-25) mmol/L ABG Total CO2 (19-24) mmol/L ABG O2 Saturation (94-97) % ABG Hematocrit (34.0-46.0) % ABG Potassium (3.4-4.5) mmol/L ABG Ionized Calcium (4.5-5.3) mg/dL ABG Glucose (75-99) mg/dL ABG Lactic Acid (0.5-1.6) mmol/L Hemoglobin (13.0-17.5) gm/dL Chloride 109 H (98-107) mmol/L Glucose 161 H (74-99) mg/dL POC Glucose (mg/dL) 179 H (75-99) mg/dL Calcium 8.2 L (8.4-10.2) mg/dL Magnesium 2.4 H (1.6-2.3) mg/dL Total Bilirubin 1.6 H (0.2-1.3) mg/dL AST (17-59) U/L Alkaline Phosphatase (38-126) U/L Total Protein 4.4 L (6.3-8.2) g/dL Albumin 2.7 L (3.5-5.0) g/dL Arterial Blood Potassium (3.4-4.5) mmol/L Arterial Blood Glucose (75-99) mg/dL Crossmatch 11/17/17 11/17/17 11/17/17 Range/Units 19:23 20:06 21:03 RBC (4.30-5.90) m/uL Hgb (13.0-17.5) gm/dL Hct (39.0-53.0) % RDW (11.5-15.5) % Plt Count (150-450) k/uL Neutrophils # (1.3-7.7) k/uL Lymphocytes # (1.0-4.8) k/uL PT (9.0-12.0) sec INR (<1.2) APTT (22.0-30.0) sec ABG pH (7.35-7.45) ABG pCO2 34 L (35-45) mmHg ABG pO2 >400 H (83-108) mmHg ABG HCO3 20 L (21-25) mmol/L ABG Total CO2 (19-24) mmol/L ABG O2 Saturation 100.0 H (94-97) % ABG Hematocrit (34.0-46.0) % ABG Potassium (3.4-4.5) mmol/L ABG Ionized Calcium (4.5-5.3) mg/dL ABG Glucose (75-99) mg/dL ABG Lactic Acid (0.5-1.6) mmol/L Hemoglobin (13.0-17.5) gm/dL Chloride (98-107) mmol/L Glucose (74-99) mg/dL POC Glucose (mg/dL) 175 H 227 H (75-99) mg/dL Calcium (8.4-10.2) mg/dL Magnesium (1.6-2.3) mg/dL Total Bilirubin (0.2-1.3) mg/dL AST (17-59) U/L Alkaline Phosphatase (38-126) U/L Total Protein (6.3-8.2) g/dL Albumin (3.5-5.0) g/dL Arterial Blood Potassium (3.4-4.5) mmol/L Arterial Blood Glucose (75-99) mg/dL Crossmatch 11/17/17 11/17/17 11/17/17 Range/Units 21:15 22:04 23:23 RBC 2.67 L (4.30-5.90) m/uL Hgb 8.0 L (13.0-17.5) gm/dL Hct 23.8 L (39.0-53.0) % RDW 16.7 H (11.5-15.5) % Plt Count 84 L (150-450) k/uL Neutrophils # (1.3-7.7) k/uL Lymphocytes # 0.3 L (1.0-4.8) k/uL PT (9.0-12.0) sec INR (<1.2) APTT (22.0-30.0) sec ABG pH (7.35-7.45) ABG pCO2 (35-45) mmHg ABG pO2 (83-108) mmHg ABG HCO3 (21-25) mmol/L ABG Total CO2 (19-24) mmol/L ABG O2 Saturation (94-97) % ABG Hematocrit (34.0-46.0) % ABG Potassium (3.4-4.5) mmol/L ABG Ionized Calcium (4.5-5.3) mg/dL ABG Glucose (75-99) mg/dL ABG Lactic Acid (0.5-1.6) mmol/L Hemoglobin (13.0-17.5) gm/dL Chloride (98-107) mmol/L Glucose (74-99) mg/dL POC Glucose (mg/dL) 237 H 209 H (75-99) mg/dL Calcium (8.4-10.2) mg/dL Magnesium (1.6-2.3) mg/dL Total Bilirubin (0.2-1.3) mg/dL AST (17-59) U/L Alkaline Phosphatase (38-126) U/L Total Protein (6.3-8.2) g/dL Albumin (3.5-5.0) g/dL Arterial Blood Potassium (3.4-4.5) mmol/L Arterial Blood Glucose (75-99) mg/dL Crossmatch 11/17/17 11/18/17 11/18/17 Range/Units 23:58 00:00 01:06 RBC 2.80 L (4.30-5.90) m/uL Hgb 7.9 L (13.0-17.5) gm/dL Hct 24.3 L (39.0-53.0) % RDW 16.3 H (11.5-15.5) % Plt Count 124 L (150-450) k/uL Neutrophils # (1.3-7.7) k/uL Lymphocytes # (1.0-4.8) k/uL PT (9.0-12.0) sec INR (<1.2) APTT (22.0-30.0) sec ABG pH (7.35-7.45) ABG pCO2 (35-45) mmHg ABG pO2 (83-108) mmHg ABG HCO3 (21-25) mmol/L ABG Total CO2 (19-24) mmol/L ABG O2 Saturation (94-97) % ABG Hematocrit (34.0-46.0) % ABG Potassium (3.4-4.5) mmol/L ABG Ionized Calcium (4.5-5.3) mg/dL ABG Glucose (75-99) mg/dL ABG Lactic Acid (0.5-1.6) mmol/L Hemoglobin (13.0-17.5) gm/dL Chloride (98-107) mmol/L Glucose (74-99) mg/dL POC Glucose (mg/dL) 197 H 183 H (75-99) mg/dL Calcium (8.4-10.2) mg/dL Magnesium (1.6-2.3) mg/dL Total Bilirubin (0.2-1.3) mg/dL AST (17-59) U/L Alkaline Phosphatase (38-126) U/L Total Protein (6.3-8.2) g/dL Albumin (3.5-5.0) g/dL Arterial Blood Potassium (3.4-4.5) mmol/L Arterial Blood Glucose (75-99) mg/dL Crossmatch 11/18/17 11/18/17 11/18/17 Range/Units 02:17 02:40 03:05 RBC 2.53 L (4.30-5.90) m/uL Hgb 7.3 L (13.0-17.5) gm/dL Hct 22.1 L (39.0-53.0) % RDW 16.4 H (11.5-15.5) % Plt Count 110 L (150-450) k/uL Neutrophils # (1.3-7.7) k/uL Lymphocytes # (1.0-4.8) k/uL PT (9.0-12.0) sec INR (<1.2) APTT (22.0-30.0) sec ABG pH (7.35-7.45) ABG pCO2 (35-45) mmHg ABG pO2 (83-108) mmHg ABG HCO3 (21-25) mmol/L ABG Total CO2 (19-24) mmol/L ABG O2 Saturation (94-97) % ABG Hematocrit (34.0-46.0) % ABG Potassium (3.4-4.5) mmol/L ABG Ionized Calcium (4.5-5.3) mg/dL ABG Glucose (75-99) mg/dL ABG Lactic Acid (0.5-1.6) mmol/L Hemoglobin (13.0-17.5) gm/dL Chloride (98-107) mmol/L Glucose (74-99) mg/dL POC Glucose (mg/dL) 175 H 160 H (75-99) mg/dL Calcium (8.4-10.2) mg/dL Magnesium (1.6-2.3) mg/dL Total Bilirubin (0.2-1.3) mg/dL AST (17-59) U/L Alkaline Phosphatase (38-126) U/L Total Protein (6.3-8.2) g/dL Albumin (3.5-5.0) g/dL Arterial Blood Potassium (3.4-4.5) mmol/L Arterial Blood Glucose (75-99) mg/dL Crossmatch 11/18/17 11/18/17 11/18/17 Range/Units 04:04 05:00 05:00 RBC 2.46 L (4.30-5.90) m/uL Hgb 7.2 L (13.0-17.5) gm/dL Hct 21.5 L (39.0-53.0) % RDW 16.6 H (11.5-15.5) % Plt Count 122 L (150-450) k/uL Neutrophils # (1.3-7.7) k/uL Lymphocytes # 0.5 L (1.0-4.8) k/uL PT 12.2 H (9.0-12.0) sec INR 1.3 H (<1.2) APTT 33.4 H (22.0-30.0) sec ABG pH (7.35-7.45) ABG pCO2 (35-45) mmHg ABG pO2 (83-108) mmHg ABG HCO3 (21-25) mmol/L ABG Total CO2 (19-24) mmol/L ABG O2 Saturation (94-97) % ABG Hematocrit (34.0-46.0) % ABG Potassium (3.4-4.5) mmol/L ABG Ionized Calcium (4.5-5.3) mg/dL ABG Glucose (75-99) mg/dL ABG Lactic Acid (0.5-1.6) mmol/L Hemoglobin (13.0-17.5) gm/dL Chloride (98-107) mmol/L Glucose (74-99) mg/dL POC Glucose (mg/dL) 156 H (75-99) mg/dL Calcium (8.4-10.2) mg/dL Magnesium (1.6-2.3) mg/dL Total Bilirubin (0.2-1.3) mg/dL AST (17-59) U/L Alkaline Phosphatase (38-126) U/L Total Protein (6.3-8.2) g/dL Albumin (3.5-5.0) g/dL Arterial Blood Potassium (3.4-4.5) mmol/L Arterial Blood Glucose (75-99) mg/dL Crossmatch 11/18/17 11/18/17 11/18/17 Range/Units 05:00 05:03 05:31 RBC (4.30-5.90) m/uL Hgb (13.0-17.5) gm/dL Hct (39.0-53.0) % RDW (11.5-15.5) % Plt Count (150-450) k/uL Neutrophils # (1.3-7.7) k/uL Lymphocytes # (1.0-4.8) k/uL PT (9.0-12.0) sec INR (<1.2) APTT (22.0-30.0) sec ABG pH (7.35-7.45) ABG pCO2 (35-45) mmHg ABG pO2 217 H (83-108) mmHg ABG HCO3 (21-25) mmol/L ABG Total CO2 25 H (19-24) mmol/L ABG O2 Saturation 100.0 H (94-97) % ABG Hematocrit (34.0-46.0) % ABG Potassium (3.4-4.5) mmol/L ABG Ionized Calcium (4.5-5.3) mg/dL ABG Glucose (75-99) mg/dL ABG Lactic Acid (0.5-1.6) mmol/L Hemoglobin (13.0-17.5) gm/dL Chloride (98-107) mmol/L Glucose 131 H (74-99) mg/dL POC Glucose (mg/dL) 137 H (75-99) mg/dL Calcium 8.0 L (8.4-10.2) mg/dL Magnesium (1.6-2.3) mg/dL Total Bilirubin (0.2-1.3) mg/dL AST 68 H (17-59) U/L Alkaline Phosphatase 37 L (38-126) U/L Total Protein 4.7 L (6.3-8.2) g/dL Albumin 2.9 L (3.5-5.0) g/dL Arterial Blood Potassium (3.4-4.5) mmol/L Arterial Blood Glucose (75-99) mg/dL Crossmatch 11/18/17 11/18/17 11/18/17 Range/Units 06:45 07:59 09:00 RBC (4.30-5.90) m/uL Hgb (13.0-17.5) gm/dL Hct (39.0-53.0) % RDW (11.5-15.5) % Plt Count (150-450) k/uL Neutrophils # (1.3-7.7) k/uL Lymphocytes # (1.0-4.8) k/uL PT (9.0-12.0) sec INR (<1.2) APTT (22.0-30.0) sec ABG pH (7.35-7.45) ABG pCO2 (35-45) mmHg ABG pO2 (83-108) mmHg ABG HCO3 (21-25) mmol/L ABG Total CO2 (19-24) mmol/L ABG O2 Saturation (94-97) % ABG Hematocrit (34.0-46.0) % ABG Potassium (3.4-4.5) mmol/L ABG Ionized Calcium (4.5-5.3) mg/dL ABG Glucose (75-99) mg/dL ABG Lactic Acid (0.5-1.6) mmol/L Hemoglobin (13.0-17.5) gm/dL Chloride (98-107) mmol/L Glucose (74-99) mg/dL POC Glucose (mg/dL) 131 H 112 H 111 H (75-99) mg/dL Calcium (8.4-10.2) mg/dL Magnesium (1.6-2.3) mg/dL Total Bilirubin (0.2-1.3) mg/dL AST (17-59) U/L Alkaline Phosphatase (38-126) U/L Total Protein (6.3-8.2) g/dL Albumin (3.5-5.0) g/dL Arterial Blood Potassium (3.4-4.5) mmol/L Arterial Blood Glucose (75-99) mg/dL Crossmatch Assessment and Plan Plan: Assessment: #1. Symptomatic multivessel coronary artery disease, with total occlusion of the LAD, 70% stenosis of the diagonal artery, 95% stenosis of the circumflex, diffuse disease in the RCA with 70% stenosis at the bifurcation of the PDA and PLV. Patient is scheduled for coronary artery bypass grafting and mitral valve repair on 11/17/2017 On 11/18/2017, the patient is postop day #1. The patient underwent coronary artery bypass surgery and mitral valve repair. The patient had an intra-aortic balloon pump inserted preoperatively and the balloon pump is still active with one-to-one augmentation. The patient is also on a combination of inotropes including vasopressin, norepinephrine, milrinone, and renal dose dopamine. The urine output is adequate and the blood pressure augmented is around 95. The patient is producing adequate amount of urine output. #2. Mitral valve regurgitation, post mitral valve repair #3. Ischemic cardiomyopathy, with severe left ventricular systolic dysfunction , with significantly impaired preoperative physical ejection fraction #4 postoperative bleeding via chest tubes. The patient was treated with a combination of fresh frozen plasma and platelets and he received packed RBC transfusion. Hemoglobin is stable for now. This is an expected outcome of prolonged bypass surgery. The output from the chest tubes has subsided and is being monitored throughout chest tubes are in place. Chest x-ray was reviewed. #5. Diabetes mellitus type 2, currently on insulin drip for blood sugar control. #6. Remote history of nicotine dependence, patient quit 40 years ago, carries 5 -pack-year smoking history #7. Postoperative anemia with a hemoglobin of 7.3, expected outcome of surgery. In addition to that the patient developed some mild degree of somewhat thrombocytopenia with a platelet count of 110, another expected outcome of surgery. #8. Diabetic retinopathy Plan We will stop the sedation and assess the patient's mental status and his readiness to wean. We'll give the patient sedation holiday. We'll check weaning parameters. If adequate., The patient will be given a spontaneous breathing trial in catheterization for extubation today. Continue the pressors. Continued intra-aortic balloon pump with one-to-one augmentation. Monitor hemoglobin. Monitor the output from the chest tubes. Condition is critical. We'll continue to follow make further recommendations based on his progress. Critically care evaluation, done more than 30 minutes. Time with Patient: Greater than 30
[2017-11-18 10:06] LABS: Glucose,Whole Blood 137 mg/dL (75-99)
--- NOTE | 2017-11-18 10:24 | P.PN ---
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 POD #1 quadruple coronary artery bypass grafting using the left internal mammary artery to the left anterior descending coronary artery, a reverse greater saphenous vein graft from the aorta to the diagonal coronary artery, reverse greater saphenous vein graft from the aorta to the first obtuse marginal coronary artery, a reverse greater saphenous vein graft from the aorta to the posterior descending coronary artery. A mitral valve repair using a complete annuloplasty with a 30 mm Kapoor IMR ring, exclusion of the left atrial appendage using a 35 mm Atriclip, intraoperative transesophageal echocardiogram and epi-aortic scanning, and intraoperative graft flow measurements using the [employer] system. POD #2 placement of intra-aortic balloon pump. Postoperative normochromic anemia, and expected outcome of surgery secondary to cardiopulmonary bypass and hemodilution. The patient remains intubated with mechanical ventilator support. Intra-aortic balloon pump remains in place to 1 and 1 setting. He is sedated on propofol drip at this time, and is following simple commands appropriately. He is moving all 4 extremities. He shakes his head no when asked if having any pain. The patient received 1 unit of PRBCs, 1 unit of platelets, and a dose of DDAVP throughout the night. Objective - Vital Signs Vital signs: Vital Signs Temp 95.4 F L 11/17/17 22:23 Pulse 88 11/18/17 09:00 Resp 12 11/18/17 04:00 BP 94/43 11/17/17 22:23 Pulse Ox 100 11/18/17 09:00 Intake & Output 11/17/17 11/18/17 11/18/17 18:59 06:59 18:59 Intake Total 1673 3891.403 566.271 Output Total 3577 2828 465 Balance -1904 1063.403 101.271 Weight 77.2 kg Intake: IV 4 1059.6 393.7 ACETAMINOPHEN IV (For NPO 200 100 ) 1,000 mg In Empty Bag 1 bag @ 400 mls/hr IVPB Q6HR [facility] Rx#:[id number] CO/CI 300 90 Desmopressin Inj 23 mcg 50 In Sodium Chloride 0.9% 50 ml @ 200 mls/hr IVPB ONCE ONE Rx#:[id number] IABP pressure bag 42 9 Lactated Ringers 1,000 ml 175 120 @ 50 mls/hr IV .Q20H [facility] Rx#:[id number] Milrinone-D5w Pmx 20 mg 127.6 20.7 In Dextrose/Water 1 100ml .bag @ 0.3 MCG/KG/MIN 6. 99 mls/hr IV .[id number] [facility] Rx#:[id number] Pressure Bags 90 27 Sodium Chloride 0.9% 99 75 27 ml @ 0.03 UNITS/MIN 9 mls /hr IV .Q11H7M ONE with Vasopressin 20 unit Rx#: [id number] Intake, IV Titration 139.803 172.571 Amount DOPamine DRIP 800 mg In 0.097 Dextrose/Water 1 500ml. bag @ 2 MCG/KG/MIN 5.82 mls/hr IV .Q24H [facility] Rx#: [id number] Insulin Regular 100 unit 39.706 13.696 In Sodium Chloride 0.9% 100 ml @ Per Protocol IV .Q0M [facility] Rx#:[id number] Milrinone-D5w Pmx 20 mg 100 In Dextrose/Water 1 100ml .bag @ 0.3 MCG/KG/MIN 6. 99 mls/hr IV .[id number] [facility] Rx#:[id number] Norepinephrin 16 mg-0.9% 58.875 Ns Pmx 16 mg In 250 ml @ Titrate IV .Q0M [facility] Rx#: [id number] Propofol 1,000 mg In 100 Empty Bag 1 bag @ Titrate IV .Q0M [facility] Rx#: [id number] Blood Product 0104 9542 Ffp 24 Cpd Unit 344 [id number] Ffp 24 Cpd Unit 317 [id number] Ffp 24 Cpda Unit 230 [id number] Ffp 24 Cpda Unit 200 [id number] Platelet Pheresis Acda 604 Unit [id number] Platelet Pheresis Acda2 195 Unit [id number] Rc As-1 Unit 310 [id number] As-1 Unit 310 [id number] Rc As-1 Unit 310 [id number] Irr As1 Unit 310 [id number] Output: Chest Tube Drainage 227 1919 360 Chest Tube Mediastinal 37 1054 80 left pleural 30 375 65 right pleural 160 490 215 Drainage 120 Left Calf 120 Urine 350 789 105 Estimated Blood Loss 3000 Other: Voiding Method Indwelling Catheter Indwelling Catheter ABP, PAP, CO, CI - Last Documented Arterial Blood Pressure 109/52 Pulmonary Artery Pressure 36/20 Cardiac Output 5.9 Cardiac Index 3.0 - Constitutional Constitutional Comment(s): Remains sedated on propofol drip at 25 mcg/kg/m. General appearance: Present: cooperative, no acute distress - Respiratory Details: Lung sounds essentially clear to his bilateral upper lobes, diminished to his bilateral bases. Respirations are symmetrical and nonlabored with mechanical ventilator support. Current ventilator settings are as follows: Assist control 12, tidal volume 500, FiO2 40%, PEEP of 5. Mediastinal and left and right pleural chest tubes remain in place to low continuous wall suction -20 cm H2O. Draining thin serosanguineous drainage. No air leaks are present. Mediastinal chest tube drained 540 mL output the last 8 hours, 1070 ml output since surgery , left pleural chest tube drained 80 mL in the last 8 hours, 430 mL output since surgery. Right pleural chest tube drained 120 mL in the last 8 hours, 750 mL since surgery. - Cardiovascular Details: Regular rhythm and rate. S1 and S2 present, negative for S3, gallop or murmurs. Sternum is stable. Bedside telemetry showing normal sinus rhythm heart rate 84. Intra-aortic balloon pump remains in place to a 1-1 setting. Current pressures are 74/42 blood pressure, map of 66, diastolic augmented pressure 91 mmHg. Right femoral insertion site clean dry and soft. Dorsalis pedis and posterior tibial pulses present and palpable. Atrial and ventricular epicardial pacemaker wires intact and connected to back up pacemaker generator. Knee-high MERLYN hose and sequential compression devices in place to his bilateral lower extremities. Current cardiac output 6.1, cardiac index 3.1, PA pressures 41/24, CVP 15. No edema present. - Gastrointestinal Gastrointestinal Comment(s): Abdomen is soft, nontender and nondistended. Hypoactive bowel sounds to all 4 abdominal quadrants. No guarding or rigidity. No Organomegaly. - Genitourinary Genitourinary Comment(s): Fong catheter for accurate I&O. Draining clear yellow urine. 300 mL output in the last 8 hours. - Integumentary Integumentary Comment(s): Skin is warm and dry. No clubbing or cyanosis present. No rashes or abnormal pigmentation present. Midline sternal incision clean and dry and approximated. No drainage or redness present. Left leg EVH sites clean dry and intact. No drainage or redness present. Left leg AARON drain intact and draining thin serosanguineous drainage. 80 mL output in the last 8 hours, 120 mL output since surgery. - Neurologic Neurologic Comment(s): Moving all 4 extremities to verbal stimuli. Following simple commands appropriately. - Musculoskeletal Musculoskeletal: Present: strength equal bilaterally - Psychiatric Psychiatric Comment(s): Remains sedated at this time on Diprivan drip at 25 mcg/kg/m. - Allied health notes Allied health notes reviewed: nursing - Labs CBC & Chem 7: 11/18/17 05:00 11/18/17 05:00 Labs: Abnormal Lab Results - Last 24 Hours (Table) 11/10/17 11/17/17 11/17/17 Range/Units 14:36 09:28 11:42 RBC (4.30-5.90) m/uL Hgb (13.0-17.5) gm/dL Hct (39.0-53.0) % RDW (11.5-15.5) % Plt Count (150-450) k/uL Neutrophils # (1.3-7.7) k/uL Lymphocytes # (1.0-4.8) k/uL PT (9.0-12.0) sec INR (<1.2) APTT (22.0-30.0) sec ABG pH 7.46 H (7.35-7.45) ABG pCO2 33 L (35-45) mmHg ABG pO2 266 H 209 H (83-108) mmHg ABG HCO3 (21-25) mmol/L ABG Total CO2 25 H 25 H (19-24) mmol/L ABG O2 Saturation 100.0 H 99.9 H (94-97) % ABG Hematocrit 32 L 28 L (34.0-46.0) % ABG Potassium (3.4-4.5) mmol/L ABG Ionized Calcium (4.5-5.3) mg/dL ABG Glucose 100 H 125 H (75-99) mg/dL ABG Lactic Acid (0.5-1.6) mmol/L Hemoglobin 10.3 L 9.2 L (13.0-17.5) gm/dL Chloride (98-107) mmol/L Glucose (74-99) mg/dL POC Glucose (mg/dL) (75-99) mg/dL Calcium (8.4-10.2) mg/dL Magnesium (1.6-2.3) mg/dL Total Bilirubin (0.2-1.3) mg/dL AST (17-59) U/L Alkaline Phosphatase (38-126) U/L Total Protein (6.3-8.2) g/dL Albumin (3.5-5.0) g/dL Arterial Blood Potassium (3.4-4.5) mmol/L Arterial Blood Glucose 100 H 125 H (75-99) mg/dL Crossmatch See Detail 11/17/17 11/17/17 11/17/17 Range/Units 12:27 13:06 13:49 RBC (4.30-5.90) m/uL Hgb (13.0-17.5) gm/dL Hct (39.0-53.0) % RDW (11.5-15.5) % Plt Count (150-450) k/uL Neutrophils # (1.3-7.7) k/uL Lymphocytes # (1.0-4.8) k/uL PT (9.0-12.0) sec INR (<1.2) APTT (22.0-30.0) sec ABG pH (7.35-7.45) ABG pCO2 34 L (35-45) mmHg ABG pO2 >420 H 291 H 279 H (83-108) mmHg ABG HCO3 (21-25) mmol/L ABG Total CO2 25 H 25 H (19-24) mmol/L ABG O2 Saturation 100.0 H 100.0 H 100.0 H (94-97) % ABG Hematocrit 21 L 22 L 22 L (34.0-46.0) % ABG Potassium 5.0 H 4.9 H (3.4-4.5) mmol/L ABG Ionized Calcium 4.1 L 4.2 L 4.2 L (4.5-5.3) mg/dL ABG Glucose 120 H 168 H 180 H (75-99) mg/dL ABG Lactic Acid (0.5-1.6) mmol/L Hemoglobin 6.8 L* 7.1 L 7.0 L* (13.0-17.5) gm/dL Chloride (98-107) mmol/L Glucose (74-99) mg/dL POC Glucose (mg/dL) (75-99) mg/dL Calcium (8.4-10.2) mg/dL Magnesium (1.6-2.3) mg/dL Total Bilirubin (0.2-1.3) mg/dL AST (17-59) U/L Alkaline Phosphatase (38-126) U/L Total Protein (6.3-8.2) g/dL Albumin (3.5-5.0) g/dL Arterial Blood Potassium 5.0 H 4.9 H (3.4-4.5) mmol/L Arterial Blood Glucose 120 H 168 H 180 H (75-99) mg/dL Crossmatch 11/17/17 11/17/17 11/17/17 Range/Units 14:17 14:44 15:17 RBC (4.30-5.90) m/uL Hgb (13.0-17.5) gm/dL Hct (39.0-53.0) % RDW (11.5-15.5) % Plt Count (150-450) k/uL Neutrophils # (1.3-7.7) k/uL Lymphocytes # (1.0-4.8) k/uL PT (9.0-12.0) sec INR (<1.2) APTT (22.0-30.0) sec ABG pH (7.35-7.45) ABG pCO2 (35-45) mmHg ABG pO2 286 H 393 H 327 H (83-108) mmHg ABG HCO3 (21-25) mmol/L ABG Total CO2 2406 H 25 H (19-24) mmol/L ABG O2 Saturation 99.4 H 100.0 H 100.0 H (94-97) % ABG Hematocrit 22 L 21 L 20 L* (34.0-46.0) % ABG Potassium 5.5 H 5.2 H 5.2 H (3.4-4.5) mmol/L ABG Ionized Calcium 4.2 L 4.1 L 4.2 L (4.5-5.3) mg/dL ABG Glucose 190 H 197 H 196 H (75-99) mg/dL ABG Lactic Acid 2.0 H (0.5-1.6) mmol/L Hemoglobin 7.2 L 7.0 L* 6.6 L* (13.0-17.5) gm/dL Chloride (98-107) mmol/L Glucose (74-99) mg/dL POC Glucose (mg/dL) (75-99) mg/dL Calcium (8.4-10.2) mg/dL Magnesium (1.6-2.3) mg/dL Total Bilirubin (0.2-1.3) mg/dL AST (17-59) U/L Alkaline Phosphatase (38-126) U/L Total Protein (6.3-8.2) g/dL Albumin (3.5-5.0) g/dL Arterial Blood Potassium 5.5 H 5.2 H 5.2 H (3.4-4.5) mmol/L Arterial Blood Glucose 190 H 197 H 196 H (75-99) mg/dL Crossmatch 11/17/17 11/17/17 11/17/17 Range/Units 16:07 16:27 16:28 RBC (4.30-5.90) m/uL Hgb (13.0-17.5) gm/dL Hct (39.0-53.0) % RDW (11.5-15.5) % Plt Count (150-450) k/uL Neutrophils # (1.3-7.7) k/uL Lymphocytes # (1.0-4.8) k/uL PT (9.0-12.0) sec INR (<1.2) APTT (22.0-30.0) sec ABG pH 7.28 L 7.60 H* 7.60 H* (7.35-7.45) ABG pCO2 19 L* 20 L* (35-45) mmHg ABG pO2 284 H >420 H >420 H (83-108) mmHg ABG HCO3 20 L 19 L 20 L (21-25) mmol/L ABG Total CO2 (19-24) mmol/L ABG O2 Saturation 99.8 H 100.0 H 100.0 H (94-97) % ABG Hematocrit 23 L 19 L* 19 L* (34.0-46.0) % ABG Potassium 4.6 H (3.4-4.5) mmol/L ABG Ionized Calcium 4.0 L 3.5 L* 3.6 L (4.5-5.3) mg/dL ABG Glucose 198 H 144 H 147 H (75-99) mg/dL ABG Lactic Acid 3.3 H* 2.7 H* 2.8 H* (0.5-1.6) mmol/L Hemoglobin 7.6 L 6.2 L* 6.1 L* (13.0-17.5) gm/dL Chloride (98-107) mmol/L Glucose (74-99) mg/dL POC Glucose (mg/dL) (75-99) mg/dL Calcium (8.4-10.2) mg/dL Magnesium (1.6-2.3) mg/dL Total Bilirubin (0.2-1.3) mg/dL AST (17-59) U/L Alkaline Phosphatase (38-126) U/L Total Protein (6.3-8.2) g/dL Albumin (3.5-5.0) g/dL Arterial Blood Potassium 4.6 H (3.4-4.5) mmol/L Arterial Blood Glucose 198 H 144 H 147 H (75-99) mg/dL Crossmatch 11/17/17 11/17/17 11/17/17 Range/Units 17:23 18:12 19:00 RBC (4.30-5.90) m/uL Hgb (13.0-17.5) gm/dL Hct (39.0-53.0) % RDW (11.5-15.5) % Plt Count (150-450) k/uL Neutrophils # (1.3-7.7) k/uL Lymphocytes # (1.0-4.8) k/uL PT 14.1 H (9.0-12.0) sec INR 1.5 H (<1.2) APTT 43.1 H (22.0-30.0) sec ABG pH 7.31 L 7.29 L (7.35-7.45) ABG pCO2 47 H 47 H (35-45) mmHg ABG pO2 295 H 124 H (83-108) mmHg ABG HCO3 (21-25) mmol/L ABG Total CO2 25 H (19-24) mmol/L ABG O2 Saturation 99.9 H 98.9 H (94-97) % ABG Hematocrit 21 L 24 L (34.0-46.0) % ABG Potassium 4.7 H (3.4-4.5) mmol/L ABG Ionized Calcium 3.8 L (4.5-5.3) mg/dL ABG Glucose 158 H 165 H (75-99) mg/dL ABG Lactic Acid 3.1 H* 3.5 H* (0.5-1.6) mmol/L Hemoglobin 6.7 L* 7.7 L (13.0-17.5) gm/dL Chloride (98-107) mmol/L Glucose (74-99) mg/dL POC Glucose (mg/dL) (75-99) mg/dL Calcium (8.4-10.2) mg/dL Magnesium (1.6-2.3) mg/dL Total Bilirubin (0.2-1.3) mg/dL AST (17-59) U/L Alkaline Phosphatase (38-126) U/L Total Protein (6.3-8.2) g/dL Albumin (3.5-5.0) g/dL Arterial Blood Potassium 4.7 H (3.4-4.5) mmol/L Arterial Blood Glucose 158 H 165 H (75-99) mg/dL Crossmatch 11/17/17 11/17/17 11/17/17 Range/Units 19:00 19:00 19:02 RBC 2.78 L (4.30-5.90) m/uL Hgb 8.3 L D (13.0-17.5) gm/dL Hct 24.9 L (39.0-53.0) % RDW 16.7 H (11.5-15.5) % Plt Count 114 L (150-450) k/uL Neutrophils # 8.0 H (1.3-7.7) k/uL Lymphocytes # 0.9 L (1.0-4.8) k/uL PT (9.0-12.0) sec INR (<1.2) APTT (22.0-30.0) sec ABG pH (7.35-7.45) ABG pCO2 (35-45) mmHg ABG pO2 (83-108) mmHg ABG HCO3 (21-25) mmol/L ABG Total CO2 (19-24) mmol/L ABG O2 Saturation (94-97) % ABG Hematocrit (34.0-46.0) % ABG Potassium (3.4-4.5) mmol/L ABG Ionized Calcium (4.5-5.3) mg/dL ABG Glucose (75-99) mg/dL ABG Lactic Acid (0.5-1.6) mmol/L Hemoglobin (13.0-17.5) gm/dL Chloride 109 H (98-107) mmol/L Glucose 161 H (74-99) mg/dL POC Glucose (mg/dL) 179 H (75-99) mg/dL Calcium 8.2 L (8.4-10.2) mg/dL Magnesium 2.4 H (1.6-2.3) mg/dL Total Bilirubin 1.6 H (0.2-1.3) mg/dL AST (17-59) U/L Alkaline Phosphatase (38-126) U/L Total Protein 4.4 L (6.3-8.2) g/dL Albumin 2.7 L (3.5-5.0) g/dL Arterial Blood Potassium (3.4-4.5) mmol/L Arterial Blood Glucose (75-99) mg/dL Crossmatch 11/17/17 11/17/17 11/17/17 Range/Units 19:23 20:06 21:03 RBC (4.30-5.90) m/uL Hgb (13.0-17.5) gm/dL Hct (39.0-53.0) % RDW (11.5-15.5) % Plt Count (150-450) k/uL Neutrophils # (1.3-7.7) k/uL Lymphocytes # (1.0-4.8) k/uL PT (9.0-12.0) sec INR (<1.2) APTT (22.0-30.0) sec ABG pH (7.35-7.45) ABG pCO2 34 L (35-45) mmHg ABG pO2 >400 H (83-108) mmHg ABG HCO3 20 L (21-25) mmol/L ABG Total CO2 (19-24) mmol/L ABG O2 Saturation 100.0 H (94-97) % ABG Hematocrit (34.0-46.0) % ABG Potassium (3.4-4.5) mmol/L ABG Ionized Calcium (4.5-5.3) mg/dL ABG Glucose (75-99) mg/dL ABG Lactic Acid (0.5-1.6) mmol/L Hemoglobin (13.0-17.5) gm/dL Chloride (98-107) mmol/L Glucose (74-99) mg/dL POC Glucose (mg/dL) 175 H 227 H (75-99) mg/dL Calcium (8.4-10.2) mg/dL Magnesium (1.6-2.3) mg/dL Total Bilirubin (0.2-1.3) mg/dL AST (17-59) U/L Alkaline Phosphatase (38-126) U/L Total Protein (6.3-8.2) g/dL Albumin (3.5-5.0) g/dL Arterial Blood Potassium (3.4-4.5) mmol/L Arterial Blood Glucose (75-99) mg/dL Crossmatch 11/17/17 11/17/17 11/17/17 Range/Units 21:15 22:04 23:23 RBC 2.67 L (4.30-5.90) m/uL Hgb 8.0 L (13.0-17.5) gm/dL Hct 23.8 L (39.0-53.0) % RDW 16.7 H (11.5-15.5) % Plt Count 84 L (150-450) k/uL Neutrophils # (1.3-7.7) k/uL Lymphocytes # 0.3 L (1.0-4.8) k/uL PT (9.0-12.0) sec INR (<1.2) APTT (22.0-30.0) sec ABG pH (7.35-7.45) ABG pCO2 (35-45) mmHg ABG pO2 (83-108) mmHg ABG HCO3 (21-25) mmol/L ABG Total CO2 (19-24) mmol/L ABG O2 Saturation (94-97) % ABG Hematocrit (34.0-46.0) % ABG Potassium (3.4-4.5) mmol/L ABG Ionized Calcium (4.5-5.3) mg/dL ABG Glucose (75-99) mg/dL ABG Lactic Acid (0.5-1.6) mmol/L Hemoglobin (13.0-17.5) gm/dL Chloride (98-107) mmol/L Glucose (74-99) mg/dL POC Glucose (mg/dL) 237 H 209 H (75-99) mg/dL Calcium (8.4-10.2) mg/dL Magnesium (1.6-2.3) mg/dL Total Bilirubin (0.2-1.3) mg/dL AST (17-59) U/L Alkaline Phosphatase (38-126) U/L Total Protein (6.3-8.2) g/dL Albumin (3.5-5.0) g/dL Arterial Blood Potassium (3.4-4.5) mmol/L Arterial Blood Glucose (75-99) mg/dL Crossmatch 11/17/17 11/18/17 11/18/17 Range/Units 23:58 00:00 01:06 RBC 2.80 L (4.30-5.90) m/uL Hgb 7.9 L (13.0-17.5) gm/dL Hct 24.3 L (39.0-53.0) % RDW 16.3 H (11.5-15.5) % Plt Count 124 L (150-450) k/uL Neutrophils # (1.3-7.7) k/uL Lymphocytes # (1.0-4.8) k/uL PT (9.0-12.0) sec INR (<1.2) APTT (22.0-30.0) sec ABG pH (7.35-7.45) ABG pCO2 (35-45) mmHg ABG pO2 (83-108) mmHg ABG HCO3 (21-25) mmol/L ABG Total CO2 (19-24) mmol/L ABG O2 Saturation (94-97) % ABG Hematocrit (34.0-46.0) % ABG Potassium (3.4-4.5) mmol/L ABG Ionized Calcium (4.5-5.3) mg/dL ABG Glucose (75-99) mg/dL ABG Lactic Acid (0.5-1.6) mmol/L Hemoglobin (13.0-17.5) gm/dL Chloride (98-107) mmol/L Glucose (74-99) mg/dL POC Glucose (mg/dL) 197 H 183 H (75-99) mg/dL Calcium (8.4-10.2) mg/dL Magnesium (1.6-2.3) mg/dL Total Bilirubin (0.2-1.3) mg/dL AST (17-59) U/L Alkaline Phosphatase (38-126) U/L Total Protein (6.3-8.2) g/dL Albumin (3.5-5.0) g/dL Arterial Blood Potassium (3.4-4.5) mmol/L Arterial Blood Glucose (75-99) mg/dL Crossmatch 11/18/17 11/18/17 11/18/17 Range/Units 02:17 02:40 03:05 RBC 2.53 L (4.30-5.90) m/uL Hgb 7.3 L (13.0-17.5) gm/dL Hct 22.1 L (39.0-53.0) % RDW 16.4 H (11.5-15.5) % Plt Count 110 L (150-450) k/uL Neutrophils # (1.3-7.7) k/uL Lymphocytes # (1.0-4.8) k/uL PT (9.0-12.0) sec INR (<1.2) APTT (22.0-30.0) sec ABG pH (7.35-7.45) ABG pCO2 (35-45) mmHg ABG pO2 (83-108) mmHg ABG HCO3 (21-25) mmol/L ABG Total CO2 (19-24) mmol/L ABG O2 Saturation (94-97) % ABG Hematocrit (34.0-46.0) % ABG Potassium (3.4-4.5) mmol/L ABG Ionized Calcium (4.5-5.3) mg/dL ABG Glucose (75-99) mg/dL ABG Lactic Acid (0.5-1.6) mmol/L Hemoglobin (13.0-17.5) gm/dL Chloride (98-107) mmol/L Glucose (74-99) mg/dL POC Glucose (mg/dL) 175 H 160 H (75-99) mg/dL Calcium (8.4-10.2) mg/dL Magnesium (1.6-2.3) mg/dL Total Bilirubin (0.2-1.3) mg/dL AST (17-59) U/L Alkaline Phosphatase (38-126) U/L Total Protein (6.3-8.2) g/dL Albumin (3.5-5.0) g/dL Arterial Blood Potassium (3.4-4.5) mmol/L Arterial Blood Glucose (75-99) mg/dL Crossmatch 11/18/17 11/18/17 11/18/17 Range/Units 04:04 05:00 05:00 RBC 2.46 L (4.30-5.90) m/uL Hgb 7.2 L (13.0-17.5) gm/dL Hct 21.5 L (39.0-53.0) % RDW 16.6 H (11.5-15.5) % Plt Count 122 L (150-450) k/uL Neutrophils # (1.3-7.7) k/uL Lymphocytes # 0.5 L (1.0-4.8) k/uL PT 12.2 H (9.0-12.0) sec INR 1.3 H (<1.2) APTT 33.4 H (22.0-30.0) sec ABG pH (7.35-7.45) ABG pCO2 (35-45) mmHg ABG pO2 (83-108) mmHg ABG HCO3 (21-25) mmol/L ABG Total CO2 (19-24) mmol/L ABG O2 Saturation (94-97) % ABG Hematocrit (34.0-46.0) % ABG Potassium (3.4-4.5) mmol/L ABG Ionized Calcium (4.5-5.3) mg/dL ABG Glucose (75-99) mg/dL ABG Lactic Acid (0.5-1.6) mmol/L Hemoglobin (13.0-17.5) gm/dL Chloride (98-107) mmol/L Glucose (74-99) mg/dL POC Glucose (mg/dL) 156 H (75-99) mg/dL Calcium (8.4-10.2) mg/dL Magnesium (1.6-2.3) mg/dL Total Bilirubin (0.2-1.3) mg/dL AST (17-59) U/L Alkaline Phosphatase (38-126) U/L Total Protein (6.3-8.2) g/dL Albumin (3.5-5.0) g/dL Arterial Blood Potassium (3.4-4.5) mmol/L Arterial Blood Glucose (75-99) mg/dL Crossmatch 11/18/17 11/18/17 11/18/17 Range/Units 05:00 05:03 05:31 RBC (4.30-5.90) m/uL Hgb (13.0-17.5) gm/dL Hct (39.0-53.0) % RDW (11.5-15.5) % Plt Count (150-450) k/uL Neutrophils # (1.3-7.7) k/uL Lymphocytes # (1.0-4.8) k/uL PT (9.0-12.0) sec INR (<1.2) APTT (22.0-30.0) sec ABG pH (7.35-7.45) ABG pCO2 (35-45) mmHg ABG pO2 217 H (83-108) mmHg ABG HCO3 (21-25) mmol/L ABG Total CO2 25 H (19-24) mmol/L ABG O2 Saturation 100.0 H (94-97) % ABG Hematocrit (34.0-46.0) % ABG Potassium (3.4-4.5) mmol/L ABG Ionized Calcium (4.5-5.3) mg/dL ABG Glucose (75-99) mg/dL ABG Lactic Acid (0.5-1.6) mmol/L Hemoglobin (13.0-17.5) gm/dL Chloride (98-107) mmol/L Glucose 131 H (74-99) mg/dL POC Glucose (mg/dL) 137 H (75-99) mg/dL Calcium 8.0 L (8.4-10.2) mg/dL Magnesium (1.6-2.3) mg/dL Total Bilirubin (0.2-1.3) mg/dL AST 68 H (17-59) U/L Alkaline Phosphatase 37 L (38-126) U/L Total Protein 4.7 L (6.3-8.2) g/dL Albumin 2.9 L (3.5-5.0) g/dL Arterial Blood Potassium (3.4-4.5) mmol/L Arterial Blood Glucose (75-99) mg/dL Crossmatch 11/18/17 11/18/17 11/18/17 Range/Units 06:45 07:59 09:00 RBC (4.30-5.90) m/uL Hgb (13.0-17.5) gm/dL Hct (39.0-53.0) % RDW (11.5-15.5) % Plt Count (150-450) k/uL Neutrophils # (1.3-7.7) k/uL Lymphocytes # (1.0-4.8) k/uL PT (9.0-12.0) sec INR (<1.2) APTT (22.0-30.0) sec ABG pH (7.35-7.45) ABG pCO2 (35-45) mmHg ABG pO2 (83-108) mmHg ABG HCO3 (21-25) mmol/L ABG Total CO2 (19-24) mmol/L ABG O2 Saturation (94-97) % ABG Hematocrit (34.0-46.0) % ABG Potassium (3.4-4.5) mmol/L ABG Ionized Calcium (4.5-5.3) mg/dL ABG Glucose (75-99) mg/dL ABG Lactic Acid (0.5-1.6) mmol/L Hemoglobin (13.0-17.5) gm/dL Chloride (98-107) mmol/L Glucose (74-99) mg/dL POC Glucose (mg/dL) 131 H 112 H 111 H (75-99) mg/dL Calcium (8.4-10.2) mg/dL Magnesium (1.6-2.3) mg/dL Total Bilirubin (0.2-1.3) mg/dL AST (17-59) U/L Alkaline Phosphatase (38-126) U/L Total Protein (6.3-8.2) g/dL Albumin (3.5-5.0) g/dL Arterial Blood Potassium (3.4-4.5) mmol/L Arterial Blood Glucose (75-99) mg/dL Crossmatch - Imaging and Cardiology Chest x-ray: report reviewed, image reviewed Assessment and Plan (1) DVT prophylaxis Current Visit: Yes Status: Acute Code(s): [id number] - SNOMED Code(s): 151672181 (2) Ischemic cardiomyopathy Current Visit: Yes Status: Acute Code(s): I25.5 - ISCHEMIC CARDIOMYOPATHY SNOMED Code(s): 419110404 (3) Coronary artery disease Current Visit: No Status: Chronic Code(s): I25.10 - ATHSCL HEART DISEASE OF [place] CORONARY ARTERY W/O ANG PCTRS SNOMED Code(s): 94226007 (4) Diabetes mellitus Current Visit: No Status: Chronic Code(s): E11.9 - TYPE 2 DIABETES MELLITUS WITHOUT COMPLICATIONS SNOMED Code(s): 03189575 (5) Hyperlipidemia Current Visit: No Status: Chronic Code(s): E78.5 - HYPERLIPIDEMIA, UNSPECIFIED SNOMED Code(s): 38814722 (6) Mitral regurgitation Current Visit: No Status: Chronic Code(s): I34.0 - NONRHEUMATIC MITRAL ( VALVE) INSUFFICIENCY SNOMED Code(s): 17042179 (7) History of myocardial infarction Current Visit: No Status: Resolved Code(s): I25.2 - OLD MYOCARDIAL INFARCTION SNOMED Code(s): 743452877 (8) Tobacco dependence in remission Current Visit: No Status: Resolved Code(s): F17.201 - NICOTINE DEPENDENCE, UNSPECIFIED, IN REMISSION SNOMED Code(s): 601642795 Plan: 1. Continue aspirin, statin, Plavix, and subcu heparin. We will hold beta michelle for now. 2. Continue intra-aortic balloon pump on current settings. 3. Decrease Primacor drip to 0.3 mcg/kg/m. We will start to wean the Primacor once extubated. 4. DVT and GI prophylaxis. 5. Pulmonary management recommendations per Dr. Paul. 6. Pain management per when necessary orders. 7. Insulin management per primary care service. 8. We will monitor daily labs and chest x-rays. 9. Maintain Fong catheter for accurate I&O's. 10. Further recommendations to follow based on patient's clinical course. Time with Patient: Greater than 30
[2017-11-18 11:47] LABS: Glucose,Whole Blood 129 mg/dL (75-99)
[2017-11-18 12:12] LABS: Glucose,Whole Blood 143 mg/dL (75-99)
[2017-11-18 12:39] LABS: ABG Base Excess -1.6 mmol/L; ABG HCO3 24 mmol/L (21-25); ABG Oxygen Saturation 99.9 % (94-97); ABG PCO2 42 mmHg (35-45); ABG PH 7.36 (7.35-7.45); ABG PO2 189 mmHg (83-108); ABG TCO2 25 mmol/L (19-24)
[2017-11-18 13:13] LABS: Glucose,Whole Blood 129 mg/dL (75-99)
--- NOTE | 2017-11-18 13:48 | P.PN ---
Subjective Progress Note Date: 11/18/17 This is a pleasant gentleman patient of Dr. Spann, newly established to the office to evaluate shortness of breath, dyspnea on exertion, underwent cardiac cath and found to have ischemic cardiomyopathy with severe LV dysfunction, triple-vessel disease prior to bypass surgery, admitted for bypass surgery and valve repair. He has underlying history of diabetes mellitus type 2, hyperlipidemia, Cardiac cath performed 11/09/2017 shows left main coronary up was calcified, circumflex 95% stenosis in the ostial portion, LAD totally occluded just of to the origin of the large diagonal branch, diagonal branch from the percent stenosis, 70% stenosis in the PDA and PLV severe left ventricle systolic dysfunction and mitral regurgitation He is currently in ICU being prepped for CABG and mitral valve repair on 2017 and has intra-aortic balloon pump done through the right femoral artery. 11/17: Patient is having open-heart surgery today. 11/18: Patient is status post quadruple coronary artery bypass grafting using the left internal mammary artery to the left anterior descending coronary artery, a reverse greater saphenous vein graft from the aorta to the diagonal coronary artery, reverse greater saphenous vein graft from the aorta to the first obtuse marginal coronary artery, a reverse greater saphenous vein graft from the aorta to the posterior descending coronary artery and mitral valve repair. Patient remains in the intensive care unit intubated and on mechanical ventilation currently on CPAP for weaning parameters. He continues to have intra-aortic balloon pump in place which is plan to keep for 1 more day. He has a right, left and mediastinal chest tubes in place draining serosanguineous fluid. Urine output is 50-60 mL per hour. He is also on vasopressors. Hemoglobin A1c is 6.7. Objective - Vital Signs Vital signs: Vital Signs Temp 95.4 F L 11/17/17 22:23 Pulse 91 11/18/17 11:53 Resp 12 11/18/17 04:00 BP 94/43 11/17/17 22:23 Pulse Ox 100 11/18/17 11:00 Intake & Output 11/17/17 11/18/17 11/18/17 18:59 06:59 18:59 Intake Total 1673 3891.403 723.071 Output Total 3577 2828 655 Balance -1904 1063.403 68.071 Weight 77.2 kg Intake: IV 4 1059.6 550.5 ACETAMINOPHEN IV (For NPO 200 100 ) 1,000 mg In Empty Bag 1 bag @ 400 mls/hr IVPB Q6HR [facility] Rx#:[id number] CO/CI 300 120 Desmopressin Inj 23 mcg 50 In Sodium Chloride 0.9% 50 ml @ 200 mls/hr IVPB ONCE ONE Rx#:[id number] IABP pressure bag 42 15 Lactated Ringers 1,000 ml 175 200 @ 50 mls/hr IV .Q20H [facility] Rx#:[id number] Milrinone-D5w Pmx 20 mg 127.6 34.5 In Dextrose/Water 1 100ml .bag @ 0.3 MCG/KG/MIN 6. 99 mls/hr IV .[id number] [facility] Rx#:[id number] Pressure Bags 90 45 Sodium Chloride 0.9% 99 75 36 ml @ 0.03 UNITS/MIN 9 mls /hr IV .Q11H7M ONE with Vasopressin 20 unit Rx#: [id number] Intake, IV Titration 139.803 172.571 Amount DOPamine DRIP 800 mg In 0.097 Dextrose/Water 1 500ml. bag @ 2 MCG/KG/MIN 5.82 mls/hr IV .Q24H [facility] Rx#: [id number] Insulin Regular 100 unit 39.706 13.696 In Sodium Chloride 0.9% 100 ml @ Per Protocol IV .Q0M [facility] Rx#:[id number] Milrinone-D5w Pmx 20 mg 100 In Dextrose/Water 1 100ml .bag @ 0.3 MCG/KG/MIN 6. 99 mls/hr IV .[id number] [facility] Rx#:[id number] Norepinephrin 16 mg-0.9% 58.875 Ns Pmx 16 mg In 250 ml @ Titrate IV .Q0M [facility] Rx#: [id number] Propofol 1,000 mg In 100 Empty Bag 1 bag @ Titrate IV .Q0M [facility] Rx#: [id number] Blood Product 8280 7017 Ffp 24 Cpd Unit 344 [id number] Ffp 24 Cpd Unit 317 [id number] Ffp 24 Cpda Unit 230 [id number] Ffp 24 Cpda Unit 200 [id number] Platelet Pheresis Acda 604 Unit [id number] Platelet Pheresis Acda2 195 Unit [id number] Rc As-1 Unit 310 [id number] Rc As-1 Unit 310 [id number] Rc As-1 Unit 310 [id number] Rc Irr As1 Unit 310 [id number] Output: Chest Tube Drainage 227 1919 440 Chest Tube Mediastinal 37 1054 80 left pleural 30 375 85 right pleural 160 490 275 Drainage 120 Left Calf 120 Urine 350 789 215 Estimated Blood Loss 3000 Other: Voiding Method Indwelling Catheter Indwelling Catheter ABP, PAP, CO, CI - Last Documented Arterial Blood Pressure 96/40 Pulmonary Artery Pressure 34/18 Cardiac Output 5.4 Cardiac Index 2.8 - Exam General appearance: average body habitus, cooperative, no acute distress - EENT Eyes: anicteric sclerae, EOMI, PERRLA, dentition normal, normal appearance ENT: NA/AT, normal oropharynx, oral ET tube - Respiratory Respiratory: bilateral: CTA, negative: diminished, dullness, rales, rhonchi, wheezing, right pleural, left pleural and mediastinal chest tubes in place. - Cardiovascular Rhythm: regular Heart sounds: normal: S1, S2 Abnormal Heart Sounds: no systolic murmur, no diastolic murmur, no rub, no S3 Gallop, no S4 Gallop, no click, no other - Gastrointestinal General gastrointestinal: normal bowel sounds, soft, Fong draining clear marta urine - Integumentary Integumentary: normal, normal turgor - Neurologic Neurologic: Awake, focal deficits (None) - Musculoskeletal Musculoskeletal: gait not assessed, strength equal bilaterally - Labs CBC & Chem 7: 11/18/17 05:00 11/18/17 05:00 Labs: Abnormal Lab Results - Last 24 Hours (Table) 11/10/17 11/17/17 11/17/17 Range/Units 14:36 11:42 12:27 RBC (4.30-5.90) m/uL Hgb (13.0-17.5) gm/dL Hct (39.0-53.0) % RDW (11.5-15.5) % Plt Count (150-450) k/uL Neutrophils # (1.3-7.7) k/uL Lymphocytes # (1.0-4.8) k/uL PT (9.0-12.0) sec INR (<1.2) APTT (22.0-30.0) sec ABG pH (7.35-7.45) ABG pCO2 34 L (35-45) mmHg ABG pO2 209 H >420 H (83-108) mmHg ABG HCO3 (21-25) mmol/L ABG Total CO2 25 H (19-24) mmol/L ABG O2 Saturation 99.9 H 100.0 H (94-97) % ABG Hematocrit 28 L 21 L (34.0-46.0) % ABG Potassium (3.4-4.5) mmol/L ABG Ionized Calcium 4.1 L (4.5-5.3) mg/dL ABG Glucose 125 H 120 H (75-99) mg/dL ABG Lactic Acid (0.5-1.6) mmol/L Hemoglobin 9.2 L 6.8 L* (13.0-17.5) gm/dL Chloride (98-107) mmol/L Glucose (74-99) mg/dL POC Glucose (mg/dL) (75-99) mg/dL Calcium (8.4-10.2) mg/dL Magnesium (1.6-2.3) mg/dL Total Bilirubin (0.2-1.3) mg/dL AST (17-59) U/L Alkaline Phosphatase (38-126) U/L Total Protein (6.3-8.2) g/dL Albumin (3.5-5.0) g/dL Arterial Blood Potassium (3.4-4.5) mmol/L Arterial Blood Glucose 125 H 120 H (75-99) mg/dL Crossmatch See Detail 11/17/17 11/17/17 11/17/17 Range/Units 13:06 13:49 14:17 RBC (4.30-5.90) m/uL Hgb (13.0-17.5) gm/dL Hct (39.0-53.0) % RDW (11.5-15.5) % Plt Count (150-450) k/uL Neutrophils # (1.3-7.7) k/uL Lymphocytes # (1.0-4.8) k/uL PT (9.0-12.0) sec INR (<1.2) APTT (22.0-30.0) sec ABG pH (7.35-7.45) ABG pCO2 (35-45) mmHg ABG pO2 291 H 279 H 286 H (83-108) mmHg ABG HCO3 (21-25) mmol/L ABG Total CO2 25 H 25 H 2406 H (19-24) mmol/L ABG O2 Saturation 100.0 H 100.0 H 99.4 H (94-97) % ABG Hematocrit 22 L 22 L 22 L (34.0-46.0) % ABG Potassium 5.0 H 4.9 H 5.5 H (3.4-4.5) mmol/L ABG Ionized Calcium 4.2 L 4.2 L 4.2 L (4.5-5.3) mg/dL ABG Glucose 168 H 180 H 190 H (75-99) mg/dL ABG Lactic Acid (0.5-1.6) mmol/L Hemoglobin 7.1 L 7.0 L* 7.2 L (13.0-17.5) gm/dL Chloride (98-107) mmol/L Glucose (74-99) mg/dL POC Glucose (mg/dL) (75-99) mg/dL Calcium (8.4-10.2) mg/dL Magnesium (1.6-2.3) mg/dL Total Bilirubin (0.2-1.3) mg/dL AST (17-59) U/L Alkaline Phosphatase (38-126) U/L Total Protein (6.3-8.2) g/dL Albumin (3.5-5.0) g/dL Arterial Blood Potassium 5.0 H 4.9 H 5.5 H (3.4-4.5) mmol/L Arterial Blood Glucose 168 H 180 H 190 H (75-99) mg/dL Crossmatch 11/17/17 11/17/17 11/17/17 Range/Units 14:44 15:17 16:07 RBC (4.30-5.90) m/uL Hgb (13.0-17.5) gm/dL Hct (39.0-53.0) % RDW (11.5-15.5) % Plt Count (150-450) k/uL Neutrophils # (1.3-7.7) k/uL Lymphocytes # (1.0-4.8) k/uL PT (9.0-12.0) sec INR (<1.2) APTT (22.0-30.0) sec ABG pH 7.28 L (7.35-7.45) ABG pCO2 (35-45) mmHg ABG pO2 393 H 327 H 284 H (83-108) mmHg ABG HCO3 20 L (21-25) mmol/L ABG Total CO2 25 H (19-24) mmol/L ABG O2 Saturation 100.0 H 100.0 H 99.8 H (94-97) % ABG Hematocrit 21 L 20 L* 23 L (34.0-46.0) % ABG Potassium 5.2 H 5.2 H 4.6 H (3.4-4.5) mmol/L ABG Ionized Calcium 4.1 L 4.2 L 4.0 L (4.5-5.3) mg/dL ABG Glucose 197 H 196 H 198 H (75-99) mg/dL ABG Lactic Acid 2.0 H 3.3 H* (0.5-1.6) mmol/L Hemoglobin 7.0 L* 6.6 L* 7.6 L (13.0-17.5) gm/dL Chloride (98-107) mmol/L Glucose (74-99) mg/dL POC Glucose (mg/dL) (75-99) mg/dL Calcium (8.4-10.2) mg/dL Magnesium (1.6-2.3) mg/dL Total Bilirubin (0.2-1.3) mg/dL AST (17-59) U/L Alkaline Phosphatase (38-126) U/L Total Protein (6.3-8.2) g/dL Albumin (3.5-5.0) g/dL Arterial Blood Potassium 5.2 H 5.2 H 4.6 H (3.4-4.5) mmol/L Arterial Blood Glucose 197 H 196 H 198 H (75-99) mg/dL Crossmatch 11/17/17 11/17/17 11/17/17 Range/Units 16:27 16:28 17:23 RBC (4.30-5.90) m/uL Hgb (13.0-17.5) gm/dL Hct (39.0-53.0) % RDW (11.5-15.5) % Plt Count (150-450) k/uL Neutrophils # (1.3-7.7) k/uL Lymphocytes # (1.0-4.8) k/uL PT (9.0-12.0) sec INR (<1.2) APTT (22.0-30.0) sec ABG pH 7.60 H* 7.60 H* 7.31 L (7.35-7.45) ABG pCO2 19 L* 20 L* 47 H (35-45) mmHg ABG pO2 >420 H >420 H 295 H (83-108) mmHg ABG HCO3 19 L 20 L (21-25) mmol/L ABG Total CO2 25 H (19-24) mmol/L ABG O2 Saturation 100.0 H 100.0 H 99.9 H (94-97) % ABG Hematocrit 19 L* 19 L* 21 L (34.0-46.0) % ABG Potassium (3.4-4.5) mmol/L ABG Ionized Calcium 3.5 L* 3.6 L 3.8 L (4.5-5.3) mg/dL ABG Glucose 144 H 147 H 158 H (75-99) mg/dL ABG Lactic Acid 2.7 H* 2.8 H* 3.1 H* (0.5-1.6) mmol/L Hemoglobin 6.2 L* 6.1 L* 6.7 L* (13.0-17.5) gm/dL Chloride (98-107) mmol/L Glucose (74-99) mg/dL POC Glucose (mg/dL) (75-99) mg/dL Calcium (8.4-10.2) mg/dL Magnesium (1.6-2.3) mg/dL Total Bilirubin (0.2-1.3) mg/dL AST (17-59) U/L Alkaline Phosphatase (38-126) U/L Total Protein (6.3-8.2) g/dL Albumin (3.5-5.0) g/dL Arterial Blood Potassium (3.4-4.5) mmol/L Arterial Blood Glucose 144 H 147 H 158 H (75-99) mg/dL Crossmatch 11/17/17 11/17/17 11/17/17 Range/Units 18:12 19:00 19:00 RBC 2.78 L (4.30-5.90) m/uL Hgb 8.3 L D (13.0-17.5) gm/dL Hct 24.9 L (39.0-53.0) % RDW 16.7 H (11.5-15.5) % Plt Count 114 L (150-450) k/uL Neutrophils # 8.0 H (1.3-7.7) k/uL Lymphocytes # 0.9 L (1.0-4.8) k/uL PT 14.1 H (9.0-12.0) sec INR 1.5 H (<1.2) APTT 43.1 H (22.0-30.0) sec ABG pH 7.29 L (7.35-7.45) ABG pCO2 47 H (35-45) mmHg ABG pO2 124 H (83-108) mmHg ABG HCO3 (21-25) mmol/L ABG Total CO2 (19-24) mmol/L ABG O2 Saturation 98.9 H (94-97) % ABG Hematocrit 24 L (34.0-46.0) % ABG Potassium 4.7 H (3.4-4.5) mmol/L ABG Ionized Calcium (4.5-5.3) mg/dL ABG Glucose 165 H (75-99) mg/dL ABG Lactic Acid 3.5 H* (0.5-1.6) mmol/L Hemoglobin 7.7 L (13.0-17.5) gm/dL Chloride (98-107) mmol/L Glucose (74-99) mg/dL POC Glucose (mg/dL) (75-99) mg/dL Calcium (8.4-10.2) mg/dL Magnesium (1.6-2.3) mg/dL Total Bilirubin (0.2-1.3) mg/dL AST (17-59) U/L Alkaline Phosphatase (38-126) U/L Total Protein (6.3-8.2) g/dL Albumin (3.5-5.0) g/dL Arterial Blood Potassium 4.7 H (3.4-4.5) mmol/L Arterial Blood Glucose 165 H (75-99) mg/dL Crossmatch 11/17/17 11/17/17 11/17/17 Range/Units 19:00 19:02 19:23 RBC (4.30-5.90) m/uL Hgb (13.0-17.5) gm/dL Hct (39.0-53.0) % RDW (11.5-15.5) % Plt Count (150-450) k/uL Neutrophils # (1.3-7.7) k/uL Lymphocytes # (1.0-4.8) k/uL PT (9.0-12.0) sec INR (<1.2) APTT (22.0-30.0) sec ABG pH (7.35-7.45) ABG pCO2 34 L (35-45) mmHg ABG pO2 >400 H (83-108) mmHg ABG HCO3 20 L (21-25) mmol/L ABG Total CO2 (19-24) mmol/L ABG O2 Saturation 100.0 H (94-97) % ABG Hematocrit (34.0-46.0) % ABG Potassium (3.4-4.5) mmol/L ABG Ionized Calcium (4.5-5.3) mg/dL ABG Glucose (75-99) mg/dL ABG Lactic Acid (0.5-1.6) mmol/L Hemoglobin (13.0-17.5) gm/dL Chloride 109 H (98-107) mmol/L Glucose 161 H (74-99) mg/dL POC Glucose (mg/dL) 179 H (75-99) mg/dL Calcium 8.2 L (8.4-10.2) mg/dL Magnesium 2.4 H (1.6-2.3) mg/dL Total Bilirubin 1.6 H (0.2-1.3) mg/dL AST (17-59) U/L Alkaline Phosphatase (38-126) U/L Total Protein 4.4 L (6.3-8.2) g/dL Albumin 2.7 L (3.5-5.0) g/dL Arterial Blood Potassium (3.4-4.5) mmol/L Arterial Blood Glucose (75-99) mg/dL Crossmatch 11/17/17 11/17/17 11/17/17 Range/Units 20:06 21:03 21:15 RBC 2.67 L (4.30-5.90) m/uL Hgb 8.0 L (13.0-17.5) gm/dL Hct 23.8 L (39.0-53.0) % RDW 16.7 H (11.5-15.5) % Plt Count 84 L (150-450) k/uL Neutrophils # (1.3-7.7) k/uL Lymphocytes # 0.3 L (1.0-4.8) k/uL PT (9.0-12.0) sec INR (<1.2) APTT (22.0-30.0) sec ABG pH (7.35-7.45) ABG pCO2 (35-45) mmHg ABG pO2 (83-108) mmHg ABG HCO3 (21-25) mmol/L ABG Total CO2 (19-24) mmol/L ABG O2 Saturation (94-97) % ABG Hematocrit (34.0-46.0) % ABG Potassium (3.4-4.5) mmol/L ABG Ionized Calcium (4.5-5.3) mg/dL ABG Glucose (75-99) mg/dL ABG Lactic Acid (0.5-1.6) mmol/L Hemoglobin (13.0-17.5) gm/dL Chloride (98-107) mmol/L Glucose (74-99) mg/dL POC Glucose (mg/dL) 175 H 227 H (75-99) mg/dL Calcium (8.4-10.2) mg/dL Magnesium (1.6-2.3) mg/dL Total Bilirubin (0.2-1.3) mg/dL AST (17-59) U/L Alkaline Phosphatase (38-126) U/L Total Protein (6.3-8.2) g/dL Albumin (3.5-5.0) g/dL Arterial Blood Potassium (3.4-4.5) mmol/L Arterial Blood Glucose (75-99) mg/dL Crossmatch 11/17/17 11/17/17 11/17/17 Range/Units 22:04 23:23 23:58 RBC (4.30-5.90) m/uL Hgb (13.0-17.5) gm/dL Hct (39.0-53.0) % RDW (11.5-15.5) % Plt Count (150-450) k/uL Neutrophils # (1.3-7.7) k/uL Lymphocytes # (1.0-4.8) k/uL PT (9.0-12.0) sec INR (<1.2) APTT (22.0-30.0) sec ABG pH (7.35-7.45) ABG pCO2 (35-45) mmHg ABG pO2 (83-108) mmHg ABG HCO3 (21-25) mmol/L ABG Total CO2 (19-24) mmol/L ABG O2 Saturation (94-97) % ABG Hematocrit (34.0-46.0) % ABG Potassium (3.4-4.5) mmol/L ABG Ionized Calcium (4.5-5.3) mg/dL ABG Glucose (75-99) mg/dL ABG Lactic Acid (0.5-1.6) mmol/L Hemoglobin (13.0-17.5) gm/dL Chloride (98-107) mmol/L Glucose (74-99) mg/dL POC Glucose (mg/dL) 237 H 209 H 197 H (75-99) mg/dL Calcium (8.4-10.2) mg/dL Magnesium (1.6-2.3) mg/dL Total Bilirubin (0.2-1.3) mg/dL AST (17-59) U/L Alkaline Phosphatase (38-126) U/L Total Protein (6.3-8.2) g/dL Albumin (3.5-5.0) g/dL Arterial Blood Potassium (3.4-4.5) mmol/L Arterial Blood Glucose (75-99) mg/dL Crossmatch 11/18/17 11/18/17 11/18/17 Range/Units 00:00 01:06 02:17 RBC 2.80 L (4.30-5.90) m/uL Hgb 7.9 L (13.0-17.5) gm/dL Hct 24.3 L (39.0-53.0) % RDW 16.3 H (11.5-15.5) % Plt Count 124 L (150-450) k/uL Neutrophils # (1.3-7.7) k/uL Lymphocytes # (1.0-4.8) k/uL PT (9.0-12.0) sec INR (<1.2) APTT (22.0-30.0) sec ABG pH (7.35-7.45) ABG pCO2 (35-45) mmHg ABG pO2 (83-108) mmHg ABG HCO3 (21-25) mmol/L ABG Total CO2 (19-24) mmol/L ABG O2 Saturation (94-97) % ABG Hematocrit (34.0-46.0) % ABG Potassium (3.4-4.5) mmol/L ABG Ionized Calcium (4.5-5.3) mg/dL ABG Glucose (75-99) mg/dL ABG Lactic Acid (0.5-1.6) mmol/L Hemoglobin (13.0-17.5) gm/dL Chloride (98-107) mmol/L Glucose (74-99) mg/dL POC Glucose (mg/dL) 183 H 175 H (75-99) mg/dL Calcium (8.4-10.2) mg/dL Magnesium (1.6-2.3) mg/dL Total Bilirubin (0.2-1.3) mg/dL AST (17-59) U/L Alkaline Phosphatase (38-126) U/L Total Protein (6.3-8.2) g/dL Albumin (3.5-5.0) g/dL Arterial Blood Potassium (3.4-4.5) mmol/L Arterial Blood Glucose (75-99) mg/dL Crossmatch 11/18/17 11/18/17 11/18/17 Range/Units 02:40 03:05 04:04 RBC 2.53 L (4.30-5.90) m/uL Hgb 7.3 L (13.0-17.5) gm/dL Hct 22.1 L (39.0-53.0) % RDW 16.4 H (11.5-15.5) % Plt Count 110 L (150-450) k/uL Neutrophils # (1.3-7.7) k/uL Lymphocytes # (1.0-4.8) k/uL PT (9.0-12.0) sec INR (<1.2) APTT (22.0-30.0) sec ABG pH (7.35-7.45) ABG pCO2 (35-45) mmHg ABG pO2 (83-108) mmHg ABG HCO3 (21-25) mmol/L ABG Total CO2 (19-24) mmol/L ABG O2 Saturation (94-97) % ABG Hematocrit (34.0-46.0) % ABG Potassium (3.4-4.5) mmol/L ABG Ionized Calcium (4.5-5.3) mg/dL ABG Glucose (75-99) mg/dL ABG Lactic Acid (0.5-1.6) mmol/L Hemoglobin (13.0-17.5) gm/dL Chloride (98-107) mmol/L Glucose (74-99) mg/dL POC Glucose (mg/dL) 160 H 156 H (75-99) mg/dL Calcium (8.4-10.2) mg/dL Magnesium (1.6-2.3) mg/dL Total Bilirubin (0.2-1.3) mg/dL AST (17-59) U/L Alkaline Phosphatase (38-126) U/L Total Protein (6.3-8.2) g/dL Albumin (3.5-5.0) g/dL Arterial Blood Potassium (3.4-4.5) mmol/L Arterial Blood Glucose (75-99) mg/dL Crossmatch 11/18/17 11/18/17 11/18/17 Range/Units 05:00 05:00 05:00 RBC 2.46 L (4.30-5.90) m/uL Hgb 7.2 L (13.0-17.5) gm/dL Hct 21.5 L (39.0-53.0) % RDW 16.6 H (11.5-15.5) % Plt Count 122 L (150-450) k/uL Neutrophils # (1.3-7.7) k/uL Lymphocytes # 0.5 L (1.0-4.8) k/uL PT 12.2 H (9.0-12.0) sec INR 1.3 H (<1.2) APTT 33.4 H (22.0-30.0) sec ABG pH (7.35-7.45) ABG pCO2 (35-45) mmHg ABG pO2 (83-108) mmHg ABG HCO3 (21-25) mmol/L ABG Total CO2 (19-24) mmol/L ABG O2 Saturation (94-97) % ABG Hematocrit (34.0-46.0) % ABG Potassium (3.4-4.5) mmol/L ABG Ionized Calcium (4.5-5.3) mg/dL ABG Glucose (75-99) mg/dL ABG Lactic Acid (0.5-1.6) mmol/L Hemoglobin (13.0-17.5) gm/dL Chloride (98-107) mmol/L Glucose 131 H (74-99) mg/dL POC Glucose (mg/dL) (75-99) mg/dL Calcium 8.0 L (8.4-10.2) mg/dL Magnesium (1.6-2.3) mg/dL Total Bilirubin (0.2-1.3) mg/dL AST 68 H (17-59) U/L Alkaline Phosphatase 37 L (38-126) U/L Total Protein 4.7 L (6.3-8.2) g/dL Albumin 2.9 L (3.5-5.0) g/dL Arterial Blood Potassium (3.4-4.5) mmol/L Arterial Blood Glucose (75-99) mg/dL Crossmatch 11/18/17 11/18/17 11/18/17 Range/Units 05:03 05:31 06:45 RBC (4.30-5.90) m/uL Hgb (13.0-17.5) gm/dL Hct (39.0-53.0) % RDW (11.5-15.5) % Plt Count (150-450) k/uL Neutrophils # (1.3-7.7) k/uL Lymphocytes # (1.0-4.8) k/uL PT (9.0-12.0) sec INR (<1.2) APTT (22.0-30.0) sec ABG pH (7.35-7.45) ABG pCO2 (35-45) mmHg ABG pO2 217 H (83-108) mmHg ABG HCO3 (21-25) mmol/L ABG Total CO2 25 H (19-24) mmol/L ABG O2 Saturation 100.0 H (94-97) % ABG Hematocrit (34.0-46.0) % ABG Potassium (3.4-4.5) mmol/L ABG Ionized Calcium (4.5-5.3) mg/dL ABG Glucose (75-99) mg/dL ABG Lactic Acid (0.5-1.6) mmol/L Hemoglobin (13.0-17.5) gm/dL Chloride (98-107) mmol/L Glucose (74-99) mg/dL POC Glucose (mg/dL) 137 H 131 H (75-99) mg/dL Calcium (8.4-10.2) mg/dL Magnesium (1.6-2.3) mg/dL Total Bilirubin (0.2-1.3) mg/dL AST (17-59) U/L Alkaline Phosphatase (38-126) U/L Total Protein (6.3-8.2) g/dL Albumin (3.5-5.0) g/dL Arterial Blood Potassium (3.4-4.5) mmol/L Arterial Blood Glucose (75-99) mg/dL Crossmatch 11/18/17 11/18/17 11/18/17 Range/Units 07:59 09:00 10:04 RBC (4.30-5.90) m/uL Hgb (13.0-17.5) gm/dL Hct (39.0-53.0) % RDW (11.5-15.5) % Plt Count (150-450) k/uL Neutrophils # (1.3-7.7) k/uL Lymphocytes # (1.0-4.8) k/uL PT (9.0-12.0) sec INR (<1.2) APTT (22.0-30.0) sec ABG pH (7.35-7.45) ABG pCO2 (35-45) mmHg ABG pO2 (83-108) mmHg ABG HCO3 (21-25) mmol/L ABG Total CO2 (19-24) mmol/L ABG O2 Saturation (94-97) % ABG Hematocrit (34.0-46.0) % ABG Potassium (3.4-4.5) mmol/L ABG Ionized Calcium (4.5-5.3) mg/dL ABG Glucose (75-99) mg/dL ABG Lactic Acid (0.5-1.6) mmol/L Hemoglobin (13.0-17.5) gm/dL Chloride (98-107) mmol/L Glucose (74-99) mg/dL POC Glucose (mg/dL) 112 H 111 H 137 H (75-99) mg/dL Calcium (8.4-10.2) mg/dL Magnesium (1.6-2.3) mg/dL Total Bilirubin (0.2-1.3) mg/dL AST (17-59) U/L Alkaline Phosphatase (38-126) U/L Total Protein (6.3-8.2) g/dL Albumin (3.5-5.0) g/dL Arterial Blood Potassium (3.4-4.5) mmol/L Arterial Blood Glucose (75-99) mg/dL Crossmatch 11/18/17 11/18/17 Range/Units 11:12 12:10 RBC (4.30-5.90) m/uL Hgb (13.0-17.5) gm/dL Hct (39.0-53.0) % RDW (11.5-15.5) % Plt Count (150-450) k/uL Neutrophils # (1.3-7.7) k/uL Lymphocytes # (1.0-4.8) k/uL PT (9.0-12.0) sec INR (<1.2) APTT (22.0-30.0) sec ABG pH (7.35-7.45) ABG pCO2 (35-45) mmHg ABG pO2 (83-108) mmHg ABG HCO3 (21-25) mmol/L ABG Total CO2 (19-24) mmol/L ABG O2 Saturation (94-97) % ABG Hematocrit (34.0-46.0) % ABG Potassium (3.4-4.5) mmol/L ABG Ionized Calcium (4.5-5.3) mg/dL ABG Glucose (75-99) mg/dL ABG Lactic Acid (0.5-1.6) mmol/L Hemoglobin (13.0-17.5) gm/dL Chloride (98-107) mmol/L Glucose (74-99) mg/dL POC Glucose (mg/dL) 129 H 143 H (75-99) mg/dL Calcium (8.4-10.2) mg/dL Magnesium (1.6-2.3) mg/dL Total Bilirubin (0.2-1.3) mg/dL AST (17-59) U/L Alkaline Phosphatase (38-126) U/L Total Protein (6.3-8.2) g/dL Albumin (3.5-5.0) g/dL Arterial Blood Potassium (3.4-4.5) mmol/L Arterial Blood Glucose (75-99) mg/dL Crossmatch Assessment and Plan Plan: (1) Coronary artery disease and moderate mitral valve regurgitation Triple vessel disease noted on cardiac cath agent status post CABG and mitral valve repair on all 11/17/2017. Continue on aspirin, Lipitor, metoprolol, Plavix, and aspirin. Hemoglobin A1c 6.7, insulin drip therapy. ICU campus recruiting intern Dr. Fajardo consult. 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, also accompanied by mitral valvular regurgitation, continue on Lasix, maximize medical treatment, anticipate CBG with possibility of mitral valve repair in the morning 11/17/2017 (4) Hyperlipidemia Patient currently is on statins, and will be titrated to goal of 70 currently on Lipitor 40 mg daily (5) On esomeprazole prophylaxis (6) DVT prophylaxis (7) Steal syndrome, subclavian Carotid Dopplers 11/10/2017 shows no carotid stenosis however there is to and fro flow within the right vertebral artery could reflect manifestation of subclavian steal physiology prior to with continuous flow reversal. Currently asymptomatic continue to monitor (8) Pulmonary hypertension PILAR on 11/10/2017, moderate pulmonary hypertension also shows intact atrial septum with no evidence of [id number] shunt physiology, unable to locate pressures for right ventricular systolic Discharge plan: To be determined Impression and plan of care have been directed as dictated by the signing physician. Amy Renteria nurse practitioner acting as scribe for signing physician.
[2017-11-18 14:52] LABS: Glucose,Whole Blood 116 mg/dL (75-99)
[2017-11-18] MEDS: LACTATED RINGERS 1,000 ML IV SCH (15:53)
[2017-11-18 16:02] LABS: Glucose,Whole Blood 115 mg/dL (75-99)
[2017-11-18] MEDS: SODIUM CHLORIDE 0.9% 99 ML with VASOPRESSIN 20 UNIT IV SCH ×2 (16:08)
[2017-11-18 16:20] LABS: Anisocytosis Slight; Basophils % (A) 0 %; Eosinophils % (A) 0 %; HCT 20.3 % (39.0-53.0); Lymphocytes # (A) 0.4 k/uL (1.0-4.8); Lymphocytes % (A) 5 %; MCH 27.6 pg (25.0-35.0); MCHC 32.2 g/dL (31.0-37.0); MCV 85.9 fL (80.0-100.0); Mean Platelet Volume 10.5; Monocytes # (A) 0.5 k/uL (0-1.0); Monocytes % (A) 6 %; Neutrophils # (A) 7.7 k/uL (1.3-7.7); Neutrophils % (A) 87 %; Poikilocytosis Slight; RBC 2.36 m/uL (4.30-5.90); RDW 16.8 % (11.5-15.5); WBC 8.8 k/uL (3.8-10.6)
[2017-11-18 16:22] LABS: HGB 6.5 gm/dL (13.0-17.5)
[2017-11-18 16:39] LABS: Hypochromasia (M) Present; Poikilocytosis (M) Present
[2017-11-18 16:40] LABS: Platelet Count 91 k/uL (150-450)
[2017-11-18 17:11] LABS: Glucose,Whole Blood 111 mg/dL (75-99)
[2017-11-18] MEDS ORDERED: BISACODYL 10 MG SUPP RECTAL PRN (17:12)
[2017-11-18] MEDS ORDERED: MAGNESIUM HYDROXIDE 2,400 MG/10 ML CUP PO PRN (17:12)
[2017-11-18] MEDS: NITROGLYCERIN-D5W PMX 50 MG in DEXTROSE/WATER 1 250ML.BAG IV SCH (17:56)
[2017-11-18] MEDS: CLEVIDIPINE BUTYRATE 25 MG in EMPTY BAG 1 BAG IV SCH (17:56)
[2017-11-18 18:18] LABS: Glucose,Whole Blood 123 mg/dL (75-99)
[2017-11-18] MEDS: HYDROcodone/APAP 5-325MG 1 EACH TAB PO PRN ×2 (18:52→23:12)
[2017-11-18 19:12] LABS: Glucose,Whole Blood 129 mg/dL (75-99)
[2017-11-18 20:10] LABS: Glucose,Whole Blood 121 mg/dL (75-99)
[2017-11-18] MEDS: SENNOSIDES-DOCUSATE SODIUM 1 EACH TAB PO SCH (20:58)
[2017-11-18 21:08] LABS: Glucose,Whole Blood 106 mg/dL (75-99)
[2017-11-18 22:02] LABS: Glucose,Whole Blood 122 mg/dL (75-99)
[2017-11-18 23:07] LABS: Glucose,Whole Blood 121 mg/dL (75-99)
[2017-11-19] MEDS: HEPARIN SODIUM,PORCINE 5,000 UNIT/ML 1 ML VIAL SQ SCH (00:05)
[2017-11-19 00:06] LABS: Glucose,Whole Blood 120 mg/dL (75-99)
[2017-11-19] MEDS: KETOROLAC 30 MG/ML 1 ML VIAL IVP SCH ×4 (00:06→18:28)
[2017-11-19 00:59] LABS: Glucose,Whole Blood 117 mg/dL (75-99)
[2017-11-19 02:09] LABS: Glucose,Whole Blood 109 mg/dL (75-99)
[2017-11-19 03:01] LABS: Glucose,Whole Blood 116 mg/dL (75-99)
[2017-11-19] MEDS: INSULIN REGULAR 100 UNIT in SODIUM CHLORIDE 0.9% 100 ML IV SCH (04:01)
[2017-11-19 04:04] LABS: Glucose,Whole Blood 127 mg/dL (75-99)
[2017-11-19 04:15] LABS: Anisocytosis Slight; Basophils % (A) 0 %; Eosinophils % (A) 0 %; HCT 22.8 % (39.0-53.0); HGB 7.3 gm/dL (13.0-17.5); Lymphocytes # (A) 0.5 k/uL (1.0-4.8); Lymphocytes % (A) 4 %; MCH 28.2 pg (25.0-35.0); MCHC 32.2 g/dL (31.0-37.0); MCV 87.4 fL (80.0-100.0); Mean Platelet Volume 10.5; Monocytes # (A) 0.6 k/uL (0-1.0); Monocytes % (A) 5 %; Neutrophils # (A) 9.2 k/uL (1.3-7.7); Neutrophils % (A) 87 %; Poikilocytosis Slight; RBC 2.61 m/uL (4.30-5.90); RDW 16.4 % (11.5-15.5); WBC 10.5 k/uL (3.8-10.6)
[2017-11-19 04:18] LABS: Platelet Count 76 k/uL (150-450)
[2017-11-19 04:22] LABS: Ionized Calcium 4.6 mg/dL (4.5-5.3)
[2017-11-19 04:34] LABS: ALT 29 U/L (21-72); AST 99 U/L (17-59); Albumin 2.8 g/dL (3.5-5.0); Alkaline Phosphatase 48 U/L (38-126); Anion Gap 7 mmol/L; Blood Urea Nitrogen 24 mg/dL (9-20); Calcium 7.9 mg/dL (8.4-10.2); Carbon Dioxide 25 mmol/L (22-30); Chloride 108 mmol/L (98-107); Glucose 116 mg/dL (74-99); Magnesium 2.2 mg/dL (1.6-2.3); Potassium 4.6 mmol/L (3.5-5.1); Sodium 140 mmol/L (137-145); Total Bilirubin 0.7 mg/dL (0.2-1.3); Total Protein 4.9 g/dL (6.3-8.2)
[2017-11-19 05:04] LABS: Glucose,Whole Blood 127 mg/dL (75-99)
[2017-11-19] MEDS: LACTATED RINGERS 1,000 ML IV SCH (05:15)
[2017-11-19 06:18] LABS: Glucose,Whole Blood 115 mg/dL (75-99)
[2017-11-19 06:58] LABS: Glucose,Whole Blood 104 mg/dL (75-99)
[2017-11-19] MEDS: MILRINONE-D5W PMX 20 MG in DEXTROSE/WATER 1 100ML.BAG IV SCH ×2 (07:02→19:03)
--- NOTE | 2017-11-19 07:17 | P.PN ---
Subjective Progress Note Date: 11/19/17 Mr. Silva is a 72-year-old white male patient of Dr. Wong, who presented today on 11/16/2017 for elective placement of intra-aortic balloon pump in preparation for three-vessel coronary artery bypass graft surgery and mitral valve repair for severe mitral valve insufficiency and ischemic cardiomyopathy with severely impaired systolic dysfunction. Surgery is scheduled for tomorrow 11/17/[address] Borjas. Patient has been having progressive exertional dyspnea for the last 2 years, and last 3 months patient started experiencing severe limitation of his exercise capacity, becoming quite dyspneic while climbing a flight of stairs. Patient denied any chest pain, palpitations, syncopal episodes. Patient started experiencing bilateral lower extremity edema , and he presented to his PCP for evaluation of his symptoms. Patient has been quite active in sports during his lifetime, in swimming and running. 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 Does not have any chronic pulmonary conditions, has a remote history of smoking, quit 40 years ago , smoked a pack a day for about 5 years. No marijuana use, no EtOH, or recreational drugs. 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 Patient had a heart catheterization on 11/09/2017 which showed calcification of left main coronary artery, with mild to moderate atherosclerotic plaque in the ostial portion, circumflex with a 95% stenosis, complete occlusion of the LAD just off to the origin of the large diagonal branch, and 70% stenosis of the diagonal branch. Diffuse disease in the RCA, with a 70% stenosis at the bifurcation into PDA and PLV, and significant disease in the PDA and PLV. All the vessels were noted to be irregular, ectatic and in places aneurysmal. LVEDP was 31 mm, without significant gradient across the aortic valve. PILAR on 11/10/2017 showed ischemic cardiomyopathy with severe left ventricular systolic dysfunction, akinetic inferior wall and the septum, hypokinetic anterior wall. Moderate pulmonary hypertension and moderate mitral regurgitation. Patient was recommended surgical intervention for his symptoms, and he opted for three- vessel coronary artery bypass grafting and mitral valve repair tomorrow. Bedside spirometry was reviewed and showed FEV1 of 1.35 L or 43% of predicted, FVC of 1.65 L or 38% of predicted, consistent with severe restriction. Preop chest x-ray from 11/10/2017 showed mild cardiomegaly with small to moderate- sized right greater than the left pleural effusions and associated compressive atelectasis. Patient is seen in the intensive care, resting in bed, room air pulse ox is 92-97%, he denies any dyspnea, he is afebrile, intra-aortic balloon pump is in place, via right femoral artery. He is currently on 1:1 IABP frequency, with augmented diastolic pressure of 131 mmHg. Distal pulses are intact, sensory status is intact. Fong catheter is in place, patient is nonoliguric. Radial pulses are intact. Patient is on heparin drip at 12 u/kg/ hr. No other drips. He is on oral Lasix at 40 mg daily. Currently resting in bed, in no acute distress. On 11/18/2017 the patient is being seen for a follow-up. Note that he had a prolonged surgery which involved a 4-vessel bypass surgery and mitral valve repair. The patient arrived to the intensive care unit around 7 PM in the evening. He was on an intra-aortic balloon pump. He was also inotropes. Chest x-ray was reviewed. The patient adequate expansion of both lungs. The patient a mediastinal chest tube in the right and left pleural chest tubes. Output from the chest as was considerably high especially from the mediastinal chest tube. Overnight the patient required a total of 4 units of packed RBCs and 4 units of 4 shows and plasma and 2 units of platelets and he also received DDAVP. He received also IV fluids in the form of crystalloids and colloids. The output from the sun chest gradually improved and earlier this morning it was only putting out 20 mL an hour and currently Dopplers somewhere between 20- 40 mL an hour. As for the right pleural chest tubes output initially was initially low and then picked up and it's up to 60-80 mL an hour. The left pleural chest tube is putting out 50 mL an hour. The patient is currently on norepinephrine infusion at 7 g per KG pigmented minutes. He is also on methadone at 0.3 g per KG pigmented minutes. He is also on vasopressin and dopamine. He is also on intra-aortic balloon pump with one-to-one augmentation. The augmented blood pressure is 91. Attempts to cut down the augmentation through the intra-aortic balloon pump has failed as the patient is pressure urine output. In terms of his respiratory status, the patient is a mechanical ventilator. He is currently on assist control mode of ventilation at the rate of 12 with an FiO2 of 4040% and a PEEP of 5 and FiO2 has been drop down to 40% and tidal volumes of 500. The morning blood gases showed a pH of 7.39 with a pCO2 of 40 and pO2 of 217, and note that this was done and FiO2 of 100%. His current FiO2 is down to 40%. Renal function stable with a creatinine of 0.8. Rest of the electrodes are all within normal limits. Correlation profile is within normal limits. Most recent hemoglobin is at 7.3. The patient was sedated with Diprivan and the patient is currently off Diprivan and when it parameters are being checked. Urine output is in order of 30-40 mL an hour over the past 2 hours. His most recent blood sugar is at 137. On 11/19/2017 and seeing this patient for a follow-up. This patient is status post four-vessel bypass surgery and mitral valve replacement. Is postop day # 2. Note that the patient was extubated yesterday without any major difficulties and currently is on oxygen by nasal cannula 2 L/m. The chest x- ray shows adequate expansion of both lungs. There is some pulmonary vessel congestion. The patient has all of these chest tubes in place. The [place] catheter is also in place. As far as his breathing status, is not having any respiratory difficulties. Sternum stable clean and intact. The chest tube output over the past 12 hours was 20 mL from the mediastinum, to 90 mL from the right pleural and for 90 mL from the left poor. His most recent hemodynamic parameters shows a cardiac output of 4.8 with an index of 2.5. He has elevated intra-aortic balloon pump was a one-to-one augmentation throughout the night and currently is down to 1-2 augmentation and his augmented mean arterial blood pressures around 72. He is producing adequate amount of urine output. As far as pressors, the patient is on a combination of Primacor at 0.2 g, norepinephrine which is ranging between 1 and 6 g, dopamine at 2.5 Pedro grams per KG pigmented, and vasopressin at physiologic dose of 0.02 units per hour. He is also on lactated Ringer at 40 mL an hour and the patient is currently off insulin drip. No significant events overnight. Is afebrile. He is awake and alert. Moving all 4 extremities and he has adequate pulses in 4 extremities. Objective - Vital Signs Vital signs: Vital Signs Temp 98.1 F 11/18/17 18:59 Pulse 97 11/19/17 06:00 Resp 23 11/19/17 06:00 BP 111/48 11/18/17 18:59 Pulse Ox 100 11/19/17 06:00 Intake & Output 11/18/17 11/19/17 11/19/17 18:59 06:59 18:59 Intake Total 1943.342 2322.726 6.127 Output Total 1390 1253 Balance 197.540 517.726 6.127 Weight 77.2 kg 76.8 kg Intake: IV 1246.6 1188.4 ACETAMINOPHEN IV (For NPO 200 100 ) 1,000 mg In Empty Bag 1 bag @ 400 mls/hr IVPB Q6HR JANNA Rx#:[id number] CO/CI 250 330 DOPamine DRIP 800 mg In 79.2 Dextrose/Water 1 500ml. bag @ 2 MCG/KG/MIN 5.82 mls/hr IV .Q24H JANNA Rx#: [id number] IABP pressure bag 36 36 Lactated Ringers 1,000 ml 480 480 @ 50 mls/hr IV .Q20H JANNA Rx#:[id number] Milrinone-D5W 32.2 Milrinone-D5w Pmx 20 mg 73.6 23.0 In Dextrose/Water 1 100ml .bag @ 0.2 MCG/KG/MIN 4. 66 mls/hr IV .[id number] JANNA Rx#:[id number] Pressure Bags 108 108 Sodium Chloride 0.9% 99 99 ml @ 0.03 UNITS/MIN 9 mls /hr IV .Q11H7M ONE with Vasopressin 20 unit Rx#: [id number] Intake, IV Titration 340.940 222.326 6.127 Amount Insulin Regular 100 unit 31.221 15.230 6.127 In Sodium Chloride 0.9% 100 ml @ Per Protocol IV .Q0M JANNA Rx#:[id number] Milrinone-D5w Pmx 20 mg 100 159.998 In Dextrose/Water 1 100ml .bag @ 0.2 MCG/KG/MIN 4. 66 mls/hr IV .[id number] JANNA Rx#:[id number] Norepinephrin 16 mg-0.9% 109.719 47.098 Ns Pmx 16 mg In 250 ml @ Titrate IV .Q0M JANNA Rx#: [id number] Propofol 1,000 mg In 100 Empty Bag 1 bag @ Titrate IV .Q0M JANNA Rx#: [id number] Oral 50 Blood Product 0 310 Rc Cpda-1 Unit 0 310 [id number] Output: Chest Tube Drainage 780 760 Chest Tube Mediastinal 100 20 left pleural 285 470 right pleural 395 270 Drainage 10 5 Left Calf 10 5 Urine 600 488 Other: Voiding Method Indwelling Catheter Indwelling Catheter ABP, PAP, CO, CI - Last Documented Arterial Blood Pressure 128/54 Pulmonary Artery Pressure 44/17 Cardiac Output 5.2 Cardiac Index 2.7 - Exam GENERAL EXAM: Patient is currently extubated and currently on 2 L of oxygen by nasal cannula. The patient is a right IJ [place]end[place] catheter which is in place. HEAD: Normocephalic/atraumatic. The patient is intubated on a mechanical ventilator. EYES: Normal reaction of pupils, equal size. Conjunctiva pink, sclera white. NOSE: Clear with pink turbinates. THROAT: No erythema or exudates. NECK: No masses, no JVD, no thyroid enlargement, no adenopathy. The patient is a right IJ [place] catheter. CHEST: No chest wall deformity. Symmetrical expansion. Breath sounds are equal and symmetrical. Sternum stable clean and intact. All of the chest tubes are in place as the patient is a mediastinal chest tube and the right pleural and left pleural chest tube. LUNGS: Equal air entry with no crackles, wheeze, rhonchi or dullness. CVS: Regular rate and rhythm, normal S1 and S2, no gallops, no rubs, systolic murmur at the apex. IABP via right femoral approach present, 1:2 frequency, distal pulses and sensory status intact ABDOMEN: Soft, nontender. No hepatosplenomegaly, normal bowel sounds, no guarding or rigidity. EXTREMITIES: No clubbing, no edema, no cyanosis, 1+ pulses and upper and lower extremities. MUSCULOSKELETAL: Muscle strength and tone normal. SPINE: No scoliosis or deformity SKIN: No rashes CENTRAL NERVOUS SYSTEM: Awake and alert and following commands and answer questions appropriately.. PSYCHIATRIC: Cannot be assessed - Labs CBC & Chem 7: 08/03/18 04:00 11/19/17 04:00 Labs: Abnormal Lab Results - Last 24 Hours (Table) 11/10/17 11/18/17 11/18/17 Range/Units 14:36 07:59 09:00 RBC (4.30-5.90) m/uL Hgb (13.0-17.5) gm/dL Hct (39.0-53.0) % RDW (11.5-15.5) % Plt Count (150-450) k/uL Neutrophils # (1.3-7.7) k/uL Lymphocytes # (1.0-4.8) k/uL ABG pO2 (83-108) mmHg ABG Total CO2 (19-24) mmol/L ABG O2 Saturation (94-97) % Chloride (98-107) mmol/L BUN (9-20) mg/dL Glucose (74-99) mg/dL POC Glucose (mg/dL) 112 H 111 H (75-99) mg/dL Calcium (8.4-10.2) mg/dL AST (17-59) U/L Total Protein (6.3-8.2) g/dL Albumin (3.5-5.0) g/dL Crossmatch See Detail 11/18/17 11/18/17 11/18/17 Range/Units 10:04 11:12 12:10 RBC (4.30-5.90) m/uL Hgb (13.0-17.5) gm/dL Hct (39.0-53.0) % RDW (11.5-15.5) % Plt Count (150-450) k/uL Neutrophils # (1.3-7.7) k/uL Lymphocytes # (1.0-4.8) k/uL ABG pO2 (83-108) mmHg ABG Total CO2 (19-24) mmol/L ABG O2 Saturation (94-97) % Chloride (98-107) mmol/L BUN (9-20) mg/dL Glucose (74-99) mg/dL POC Glucose (mg/dL) 137 H 129 H 143 H (75-99) mg/dL Calcium (8.4-10.2) mg/dL AST (17-59) U/L Total Protein (6.3-8.2) g/dL Albumin (3.5-5.0) g/dL Crossmatch 11/18/17 11/18/17 11/18/17 Range/Units 12:37 13:11 14:49 RBC (4.30-5.90) m/uL Hgb (13.0-17.5) gm/dL Hct (39.0-53.0) % RDW (11.5-15.5) % Plt Count (150-450) k/uL Neutrophils # (1.3-7.7) k/uL Lymphocytes # (1.0-4.8) k/uL ABG pO2 189 H (83-108) mmHg ABG Total CO2 25 H (19-24) mmol/L ABG O2 Saturation 99.9 H (94-97) % Chloride (98-107) mmol/L BUN (9-20) mg/dL Glucose (74-99) mg/dL POC Glucose (mg/dL) 129 H 116 H (75-99) mg/dL Calcium (8.4-10.2) mg/dL AST (17-59) U/L Total Protein (6.3-8.2) g/dL Albumin (3.5-5.0) g/dL Crossmatch 11/18/17 11/18/17 11/18/17 Range/Units 16:00 16:00 17:09 RBC 2.36 L (4.30-5.90) m/uL Hgb 6.5 L* (13.0-17.5) gm/dL Hct 20.3 L (39.0-53.0) % RDW 16.8 H (11.5-15.5) % Plt Count 91 L (150-450) k/uL Neutrophils # (1.3-7.7) k/uL Lymphocytes # 0.4 L (1.0-4.8) k/uL ABG pO2 (83-108) mmHg ABG Total CO2 (19-24) mmol/L ABG O2 Saturation (94-97) % Chloride (98-107) mmol/L BUN (9-20) mg/dL Glucose (74-99) mg/dL POC Glucose (mg/dL) 115 H 111 H (75-99) mg/dL Calcium (8.4-10.2) mg/dL AST (17-59) U/L Total Protein (6.3-8.2) g/dL Albumin (3.5-5.0) g/dL Crossmatch 11/18/17 11/18/17 11/18/17 Range/Units 18:16 19:10 20:08 RBC (4.30-5.90) m/uL Hgb (13.0-17.5) gm/dL Hct (39.0-53.0) % RDW (11.5-15.5) % Plt Count (150-450) k/uL Neutrophils # (1.3-7.7) k/uL Lymphocytes # (1.0-4.8) k/uL ABG pO2 (83-108) mmHg ABG Total CO2 (19-24) mmol/L ABG O2 Saturation (94-97) % Chloride (98-107) mmol/L BUN (9-20) mg/dL Glucose (74-99) mg/dL POC Glucose (mg/dL) 123 H 129 H 121 H (75-99) mg/dL Calcium (8.4-10.2) mg/dL AST (17-59) U/L Total Protein (6.3-8.2) g/dL Albumin (3.5-5.0) g/dL Crossmatch 11/18/17 11/18/17 11/18/17 Range/Units 21:06 21:57 23:01 RBC (4.30-5.90) m/uL Hgb (13.0-17.5) gm/dL Hct (39.0-53.0) % RDW (11.5-15.5) % Plt Count (150-450) k/uL Neutrophils # (1.3-7.7) k/uL Lymphocytes # (1.0-4.8) k/uL ABG pO2 (83-108) mmHg ABG Total CO2 (19-24) mmol/L ABG O2 Saturation (94-97) % Chloride (98-107) mmol/L BUN (9-20) mg/dL Glucose (74-99) mg/dL POC Glucose (mg/dL) 106 H 122 H 121 H (75-99) mg/dL Calcium (8.4-10.2) mg/dL AST (17-59) U/L Total Protein (6.3-8.2) g/dL Albumin (3.5-5.0) g/dL Crossmatch 11/19/17 11/19/17 11/19/17 Range/Units 00:04 00:58 02:07 RBC (4.30-5.90) m/uL Hgb (13.0-17.5) gm/dL Hct (39.0-53.0) % RDW (11.5-15.5) % Plt Count (150-450) k/uL Neutrophils # (1.3-7.7) k/uL Lymphocytes # (1.0-4.8) k/uL ABG pO2 (83-108) mmHg ABG Total CO2 (19-24) mmol/L ABG O2 Saturation (94-97) % Chloride (98-107) mmol/L BUN (9-20) mg/dL Glucose (74-99) mg/dL POC Glucose (mg/dL) 120 H 117 H 109 H (75-99) mg/dL Calcium (8.4-10.2) mg/dL AST (17-59) U/L Total Protein (6.3-8.2) g/dL Albumin (3.5-5.0) g/dL Crossmatch 11/19/17 11/19/17 11/19/17 Range/Units 02:58 03:57 04:00 RBC (4.30-5.90) m/uL Hgb (13.0-17.5) gm/dL Hct (39.0-53.0) % RDW (11.5-15.5) % Plt Count (150-450) k/uL Neutrophils # (1.3-7.7) k/uL Lymphocytes # (1.0-4.8) k/uL ABG pO2 (83-108) mmHg ABG Total CO2 (19-24) mmol/L ABG O2 Saturation (94-97) % Chloride 108 H (98-107) mmol/L BUN 24 H (9-20) mg/dL Glucose 116 H (74-99) mg/dL POC Glucose (mg/dL) 116 H 127 H (75-99) mg/dL Calcium 7.9 L (8.4-10.2) mg/dL AST 99 H (17-59) U/L Total Protein 4.9 L (6.3-8.2) g/dL Albumin 2.8 L (3.5-5.0) g/dL Crossmatch 11/19/17 11/19/17 11/19/17 Range/Units 04:00 05:02 05:58 RBC 2.61 L (4.30-5.90) m/uL Hgb 7.3 L (13.0-17.5) gm/dL Hct 22.8 L (39.0-53.0) % RDW 16.4 H (11.5-15.5) % Plt Count 76 L (150-450) k/uL Neutrophils # 9.2 H (1.3-7.7) k/uL Lymphocytes # 0.5 L (1.0-4.8) k/uL ABG pO2 (83-108) mmHg ABG Total CO2 (19-24) mmol/L ABG O2 Saturation (94-97) % Chloride (98-107) mmol/L BUN (9-20) mg/dL Glucose (74-99) mg/dL POC Glucose (mg/dL) 127 H 115 H (75-99) mg/dL Calcium (8.4-10.2) mg/dL AST (17-59) U/L Total Protein (6.3-8.2) g/dL Albumin (3.5-5.0) g/dL Crossmatch 11/19/17 Range/Units 06:55 RBC (4.30-5.90) m/uL Hgb (13.0-17.5) gm/dL Hct (39.0-53.0) % RDW (11.5-15.5) % Plt Count (150-450) k/uL Neutrophils # (1.3-7.7) k/uL Lymphocytes # (1.0-4.8) k/uL ABG pO2 (83-108) mmHg ABG Total CO2 (19-24) mmol/L ABG O2 Saturation (94-97) % Chloride (98-107) mmol/L BUN (9-20) mg/dL Glucose (74-99) mg/dL POC Glucose (mg/dL) 104 H (75-99) mg/dL Calcium (8.4-10.2) mg/dL AST (17-59) U/L Total Protein (6.3-8.2) g/dL Albumin (3.5-5.0) g/dL Crossmatch Assessment and Plan Plan: Assessment: #1. Symptomatic multivessel coronary artery disease, with total occlusion of the LAD, 70% stenosis of the diagonal artery, 95% stenosis of the circumflex, diffuse disease in the RCA with 70% stenosis at the bifurcation of the PDA and PLV. Patient is scheduled for coronary artery bypass grafting and mitral valve repair on 11/17/2017 On 11/18/2017, the patient is postop day #1. The patient underwent coronary artery bypass surgery and mitral valve repair. The patient had an intra-aortic balloon pump inserted preoperatively and the balloon pump is still active with one-to-one augmentation. The patient is also on a combination of inotropes including vasopressin, norepinephrine, milrinone, and renal dose dopamine. The urine output is adequate and the blood pressure augmented is around 95. The patient is producing adequate amount of urine output. On 11/19/2017, the patient is postop day #2. He has undergone coronary artery bypass surgery with 4 vessels and mitral valve repair. The patient is extubated he is currently on 2 L of oxygen by nasal cannula. Output from the chest tube has dropped considerably although the left pleural is still active. No evidence of any air leaks. Chest x-ray shows adequate expansion of both lungs with small pleural effusions. The patient is oxygenating well. The patient is hemodynamically doing better. Intra-aortic balloon pump is still in place with 1-2 augmentation. Pressors are being titrated and the current combination includes norepinephrine infusion, dopamine infusion, Primacor infusion and vasopressin. Note that the dopamine is at renal dose and there vasopressin is at physiologic dose. Norepinephrine infusion is running between 1 and 6 g per KG pigmented./min #2. Mitral valve regurgitation, post mitral valve repair #3. Ischemic cardiomyopathy, with severe left ventricular systolic dysfunction , with significantly impaired preoperative physical ejection fraction #4 postoperative bleeding via chest tubes. The patient was treated with a combination of fresh frozen plasma and platelets and he received packed RBC transfusion. Hemoglobin is stable for now. This is an expected outcome of prolonged bypass surgery. #5. Diabetes mellitus type 2, currently on insulin drip which is being titrated and this morning he was placed on hold for blood sugar of 104. #6. Remote history of nicotine dependence, patient quit 40 years ago, carries 5 -pack-year smoking history #7. Postoperative anemia with a hemoglobin of 7.3, expected outcome of surgery. In addition to that the patient developed some mild degree of somewhat thrombocytopenia with a platelet count of 76. The patient also dropped his hemoglobin down to 6.5 yesterday and he received a unit of packed RBC. #8. Diabetic retinopathy Plan The patient has good progress. He was extubated. Overall pulmonary status is stable. Hemodynamically still struggling although the augmentation through the intra-aortic balloon pump has been weaned down to 1-2. Continue pressors. Monitor the output from the chest tube. Monitored hemodynamics parameters. Monitor cardiac output and index. Monitor hemoglobin. We'll continue to follow and the goal for today will be weaning him off the intra-aortic balloon pump. He is awake and alert. No focal neurological deficit at this point. No signs of any respiratory distress. She'll be kept in intensive care unit. We' ll continue to follow. Evaluation was done in > 30 min, this is a critically care evaluation. Time with Patient: Greater than 30
[2017-11-19] MEDS ORDERED: CALCIUM CHLORIDE 500 MG in SODIUM CHLORIDE 0.9% 50 ML IVPB ONE (07:39)
[2017-11-19] MEDS: IPRATROPIUM-ALBUTEROL 3 ML NEB INHALATION SCH ×5 (07:58→20:36)
--- NOTE | 2017-11-19 08:14 | XR ---
EXAMINATION TYPE: XR chest 1V portable DATE OF EXAM: 11/19/2017 COMPARISON: 11/18/2017 HISTORY: Post cardiac surgery. Pneumothorax. Follow-up exam. TECHNIQUE: Single frontal view of the chest is obtained. FINDINGS: Endotracheal and enteric tubes have been removed in the interim. Cardiac valvular replacem ent, median sternotomy wires, mediastinal clips, mediastinal drain, and right internal jugular [place]-G anz catheters as well as bilateral thoracostomy tubes are similar to the prior and satisfactory. Left apical pneumothorax is decreased visualization in comparison to the prior given left apical pleural cap thickening from trace fluid or reactive thickening. There is continued blunting of the costophren ic angles and scattered linear opacities, likely multifocal atelectasis. Epicardial pacer lead is als o noted. IMPRESSION: Previously seen left apical pneumothorax is less well visualized due to adjacent left ap ical pleural thickening/pleural reaction or trace left apical pleural effusion. Otherwise the exam is unchanged from the prior trace pleural effusions, multifocal atelectasis and stable lines and tubes.
[2017-11-19 08:19] LABS: Glucose,Whole Blood 122 mg/dL (75-99)
[2017-11-19] MEDS: ATORVASTATIN 40 MG TAB PO SCH (08:38)
[2017-11-19] MEDS: CLOPIDOGREL 75 MG TAB PO SCH (08:38)
[2017-11-19] MEDS: PANTOPRAZOLE 40 MG/10 ML VIAL IVP SCH (08:38)
[2017-11-19] MEDS: MUPIROCIN 2% OINT 22 GM TUBE NASAL SCH ×2 (08:38→21:06)
[2017-11-19] MEDS: ASPIRIN 325 MG TAB PO SCH (08:38)
[2017-11-19] MEDS: FONDAPARINUX 2.5 MG/0.5 ML SYRINGE SQ SCH (08:38)
[2017-11-19] MEDS: DOPamine DRIP 800 MG in DEXTROSE/WATER 1 500ML.BAG IV SCH ×2 (08:51→19:26)
[2017-11-19 09:14] LABS: Glucose,Whole Blood 128 mg/dL (75-99)
[2017-11-19] MEDS: METOPROLOL TARTRATE 12.5 MG TAB PO SCH ×2 (09:38→22:00)
[2017-11-19 09:43] LABS: INR 1.5 (<1.2); Partial Thromboplastin Time 36.7 sec (22.0-30.0); Prothrombin Time 13.7 sec (9.0-12.0)
[2017-11-19 10:41] LABS: Glucose,Whole Blood 123 mg/dL (75-99)
[2017-11-19] MEDS: HYDROcodone/APAP 5-325MG 1 EACH TAB PO PRN ×2 (11:09→19:51)
[2017-11-19 11:33] LABS: Glucose,Whole Blood 127 mg/dL (75-99)
[2017-11-19 13:18] LABS: Glucose,Whole Blood 115 mg/dL (75-99)
--- NOTE | 2017-11-19 14:46 | CDI ---
Last Revision, March 2017 Documentation Clarification Form Date: 11/19/2017 2:34:00 PM From: Yolanda CalvertGARRET, CCDS Admit Date: 11/16/2017 7:31:00 AM Patient Name: Jerry Silva Visit Number: [id number] Discharge Date: ATTENTION: The Clinical Documentation Specialists (CDI) and [facility] Coding Staff appreciate your assistance in clarifying documentation. Please respond to the clarification below the line at the bottom and electronically sign. The CDI & [facility] Coding staff will review the response and follow-up if needed. Please note: Queries are made part of the Legal Health Record. If you have any questions, please contact the author of this message via ITS. Mick Obando MD 72 yo male, admitted for elective CABG with mitral valve repair. Per the Cardiology progress note on 11/18: "During the night, he had episode of hypotension requiring pressors." Patients Admitting Diagnosis: Multivessel CAD with mitral valve insufficiency & ischemic cardiomyopathy with severe left ventricular dysfunction. Post-Operative Diagnosis: Same Procedure performed: CABG x4 with Mitral Valve Repair. History/Risk Factors: Chronic systolic heart failure, DM II w/retinopathy & hyperlipidemia. Clinical Indicators: Admission BP 101/43, down to 92/39 postop requiring vasopressors. Treatment: IV Levophed, Routine postop CABG protocol, blood transfusion: FFP, Platelets & PRBCs. In order to accurately reflect this patients severity of illness, please clarify if the post-operative diagnosis is: An expected post-procedural or post-surgical condition; Integral to the procedure; Inherent to the procedure; An unexpected post-procedural or post-surgical condition related to surgical care; Other, please specify Unable to determine Please include the significance of the hypotension to the patient's postoperative treatment. Please continue to document in your progress notes and discharge summary in order to capture severity of illness and risk of mortality. Include clinical findings that support your diagnosis. MTDD
--- NOTE | 2017-11-19 15:10 | P.PN ---
Subjective Progress Note Date: 11/19/17 This is a pleasant gentleman patient of Dr. Spann, newly established to the office to evaluate shortness of breath, dyspnea on exertion, underwent cardiac cath and found to have ischemic cardiomyopathy with severe LV dysfunction, triple-vessel disease prior to bypass surgery, admitted for bypass surgery and valve repair. He has underlying history of diabetes mellitus type 2, hyperlipidemia, Cardiac cath performed 11/09/2017 shows left main coronary up was calcified, circumflex 95% stenosis in the ostial portion, LAD totally occluded just of to the origin of the large diagonal branch, diagonal branch from the percent stenosis, 70% stenosis in the PDA and PLV severe left ventricle systolic dysfunction and mitral regurgitation He is currently in ICU being prepped for CABG and mitral valve repair on 2017 and has intra-aortic balloon pump done through the right femoral artery. 11/17: Patient is having open-heart surgery today. 11/18: Patient is status post quadruple coronary artery bypass grafting using the left internal mammary artery to the left anterior descending coronary artery, a reverse greater saphenous vein graft from the aorta to the diagonal coronary artery, reverse greater saphenous vein graft from the aorta to the first obtuse marginal coronary artery, a reverse greater saphenous vein graft from the aorta to the posterior descending coronary artery and mitral valve repair. Patient remains in the intensive care unit intubated and on mechanical ventilation currently on CPAP for weaning parameters. He continues to have intra-aortic balloon pump in place which is plan to keep for 1 more day. He has a right, left and mediastinal chest tubes in place draining serosanguineous fluid. Urine output is 50-60 mL per hour. He is also on vasopressors. Hemoglobin A1c is 6.7. 8/3: Patient remains in the intensive care unit. He is currently off oxygen and pulse oxing. He continues to have all [address] Balloon pump was removed. Urine output has been adequate. White count is normal. Hemoglobin 7.3, INR 1.5, creatinine 0.93, blood sugars are running between 104 and 127. He has been afebrile. Heart rate running in the 90s. Blood pressure is stable with current vasopressors. Pulse ox is 9700% on room air. Patient denies having any chest pain. No abdominal pain. No nausea. Objective - Vital Signs Vital signs: Vital Signs Temp 98.1 F 11/18/17 18:59 Pulse 98 11/19/17 09:00 Resp 24 11/19/17 09:00 BP 111/48 11/18/17 18:59 Pulse Ox 98 11/19/17 09:00 Intake & Output 11/18/17 11/19/17 11/19/17 18:59 06:59 18:59 Intake Total 6452.492 0004.726 432.247 Output Total 1390 1253 330 Balance 197.540 517.726 102.247 Weight 77.2 kg 76.8 kg Intake: IV 1246.6 1188.4 160.4 ACETAMINOPHEN IV (For NPO 200 100 ) 1,000 mg In Empty Bag 1 bag @ 400 mls/hr IVPB Q6HR JANNA Rx#:[id number] CO/CI 250 330 80 DOPamine DRIP 800 mg In 79.2 7.2 Dextrose/Water 1 500ml. bag @ 2 MCG/KG/MIN 5.82 mls/hr IV .Q24H JANNA Rx#: [id number] IABP pressure bag 36 36 6 Lactated Ringers 1,000 ml 480 480 40 @ 50 mls/hr IV .Q20H JANNA Rx#:[id number] Milrinone-D5W 32.2 9.2 Milrinone-D5w Pmx 20 mg 73.6 23.0 In Dextrose/Water 1 100ml .bag @ 0.2 MCG/KG/MIN 4. 66 mls/hr IV .[id number] JANNA Rx#:[id number] Pressure Bags 108 108 18 Sodium Chloride 0.9% 99 99 ml @ 0.03 UNITS/MIN 9 mls /hr IV .Q11H7M ONE with Vasopressin 20 unit Rx#: [id number] Intake, IV Titration 340.940 222.326 271.847 Amount DOPamine DRIP 800 mg In 265.72 Dextrose/Water 1 500ml. bag @ 2 MCG/KG/MIN 5.82 mls/hr IV .Q24H JANNA Rx#: [id number] Insulin Regular 100 unit 31.221 15.230 6.127 In Sodium Chloride 0.9% 100 ml @ Per Protocol IV .Q0M JANNA Rx#:[id number] Milrinone-D5w Pmx 20 mg 100 159.998 In Dextrose/Water 1 100ml .bag @ 0.2 MCG/KG/MIN 4. 66 mls/hr IV .[id number] JANNA Rx#:[id number] Norepinephrin 16 mg-0.9% 109.719 47.098 Ns Pmx 16 mg In 250 ml @ Titrate IV .Q0M JANNA Rx#: [id number] Propofol 1,000 mg In 100 Empty Bag 1 bag @ Titrate IV .Q0M JANNA Rx#: [id number] Oral 50 Blood Product 0 310 Rc Cpda-1 Unit 0 310 [id number] Output: Chest Tube Drainage 780 760 240 Chest Tube Mediastinal 100 20 0 left pleural 285 470 170 right pleural 395 270 70 Drainage 10 5 0 Left Calf 10 5 0 Urine 600 488 90 Other: Voiding Method Indwelling Catheter Indwelling Catheter ABP, PAP, CO, CI - Last Documented Arterial Blood Pressure 107/41 Pulmonary Artery Pressure 38/14 Cardiac Output 5.2 Cardiac Index 2.7 - Exam General appearance: average body habitus, cooperative, no acute distress - EENT Eyes: anicteric sclerae, EOMI, PERRLA, dentition normal, normal appearance ENT: NA/AT, normal oropharynx, oral ET tube - Respiratory Respiratory: bilateral: CTA, negative: diminished, dullness, rales, rhonchi, wheezing, right pleural, left pleural and mediastinal chest tubes in place. - Cardiovascular Rhythm: regular Heart sounds: normal: S1, S2 Abnormal Heart Sounds: no systolic murmur, no diastolic murmur, no rub, no S3 Gallop, no S4 Gallop, no click, no other - Gastrointestinal General gastrointestinal: normal bowel sounds, soft, Fong draining clear marta urine - Integumentary Integumentary: normal, normal turgor - Neurologic Neurologic: Awake, focal deficits (None) - Musculoskeletal Musculoskeletal: gait not assessed, strength equal bilaterally - Labs CBC & Chem 7: 11/19/17 04:00 11/19/17 04:00 Labs: Abnormal Lab Results - Last 24 Hours (Table) 11/10/17 11/18/17 11/18/17 Range/Units 14:36 10:04 11:12 RBC (4.30-5.90) m/uL Hgb (13.0-17.5) gm/dL Hct (39.0-53.0) % RDW (11.5-15.5) % Plt Count (150-450) k/uL Neutrophils # (1.3-7.7) k/uL Lymphocytes # (1.0-4.8) k/uL ABG pO2 (83-108) mmHg ABG Total CO2 (19-24) mmol/L ABG O2 Saturation (94-97) % Chloride (98-107) mmol/L BUN (9-20) mg/dL Glucose (74-99) mg/dL POC Glucose (mg/dL) 137 H 129 H (75-99) mg/dL Calcium (8.4-10.2) mg/dL AST (17-59) U/L Total Protein (6.3-8.2) g/dL Albumin (3.5-5.0) g/dL Crossmatch See Detail 11/18/17 11/18/17 11/18/17 Range/Units 12:10 12:37 13:11 RBC (4.30-5.90) m/uL Hgb (13.0-17.5) gm/dL Hct (39.0-53.0) % RDW (11.5-15.5) % Plt Count (150-450) k/uL Neutrophils # (1.3-7.7) k/uL Lymphocytes # (1.0-4.8) k/uL ABG pO2 189 H (83-108) mmHg ABG Total CO2 25 H (19-24) mmol/L ABG O2 Saturation 99.9 H (94-97) % Chloride (98-107) mmol/L BUN (9-20) mg/dL Glucose (74-99) mg/dL POC Glucose (mg/dL) 143 H 129 H (75-99) mg/dL Calcium (8.4-10.2) mg/dL AST (17-59) U/L Total Protein (6.3-8.2) g/dL Albumin (3.5-5.0) g/dL Crossmatch 11/18/17 11/18/17 11/18/17 Range/Units 14:49 16:00 16:00 RBC 2.36 L (4.30-5.90) m/uL Hgb 6.5 L* (13.0-17.5) gm/dL Hct 20.3 L (39.0-53.0) % RDW 16.8 H (11.5-15.5) % Plt Count 91 L (150-450) k/uL Neutrophils # (1.3-7.7) k/uL Lymphocytes # 0.4 L (1.0-4.8) k/uL ABG pO2 (83-108) mmHg ABG Total CO2 (19-24) mmol/L ABG O2 Saturation (94-97) % Chloride (98-107) mmol/L BUN (9-20) mg/dL Glucose (74-99) mg/dL POC Glucose (mg/dL) 116 H 115 H (75-99) mg/dL Calcium (8.4-10.2) mg/dL AST (17-59) U/L Total Protein (6.3-8.2) g/dL Albumin (3.5-5.0) g/dL Crossmatch 11/18/17 11/18/17 11/18/17 Range/Units 17:09 18:16 19:10 RBC (4.30-5.90) m/uL Hgb (13.0-17.5) gm/dL Hct (39.0-53.0) % RDW (11.5-15.5) % Plt Count (150-450) k/uL Neutrophils # (1.3-7.7) k/uL Lymphocytes # (1.0-4.8) k/uL ABG pO2 (83-108) mmHg ABG Total CO2 (19-24) mmol/L ABG O2 Saturation (94-97) % Chloride (98-107) mmol/L BUN (9-20) mg/dL Glucose (74-99) mg/dL POC Glucose (mg/dL) 111 H 123 H 129 H (75-99) mg/dL Calcium (8.4-10.2) mg/dL AST (17-59) U/L Total Protein (6.3-8.2) g/dL Albumin (3.5-5.0) g/dL Crossmatch 11/18/17 11/18/17 11/18/17 Range/Units 20:08 21:06 21:57 RBC (4.30-5.90) m/uL Hgb (13.0-17.5) gm/dL Hct (39.0-53.0) % RDW (11.5-15.5) % Plt Count (150-450) k/uL Neutrophils # (1.3-7.7) k/uL Lymphocytes # (1.0-4.8) k/uL ABG pO2 (83-108) mmHg ABG Total CO2 (19-24) mmol/L ABG O2 Saturation (94-97) % Chloride (98-107) mmol/L BUN (9-20) mg/dL Glucose (74-99) mg/dL POC Glucose (mg/dL) 121 H 106 H 122 H (75-99) mg/dL Calcium (8.4-10.2) mg/dL AST (17-59) U/L Total Protein (6.3-8.2) g/dL Albumin (3.5-5.0) g/dL Crossmatch 11/18/17 11/19/17 11/19/17 Range/Units 23:01 00:04 00:58 RBC (4.30-5.90) m/uL Hgb (13.0-17.5) gm/dL Hct (39.0-53.0) % RDW (11.5-15.5) % Plt Count (150-450) k/uL Neutrophils # (1.3-7.7) k/uL Lymphocytes # (1.0-4.8) k/uL ABG pO2 (83-108) mmHg ABG Total CO2 (19-24) mmol/L ABG O2 Saturation (94-97) % Chloride (98-107) mmol/L BUN (9-20) mg/dL Glucose (74-99) mg/dL POC Glucose (mg/dL) 121 H 120 H 117 H (75-99) mg/dL Calcium (8.4-10.2) mg/dL AST (17-59) U/L Total Protein (6.3-8.2) g/dL Albumin (3.5-5.0) g/dL Crossmatch 11/19/17 11/19/17 11/19/17 Range/Units 02:07 02:58 03:57 RBC (4.30-5.90) m/uL Hgb (13.0-17.5) gm/dL Hct (39.0-53.0) % RDW (11.5-15.5) % Plt Count (150-450) k/uL Neutrophils # (1.3-7.7) k/uL Lymphocytes # (1.0-4.8) k/uL ABG pO2 (83-108) mmHg ABG Total CO2 (19-24) mmol/L ABG O2 Saturation (94-97) % Chloride (98-107) mmol/L BUN (9-20) mg/dL Glucose (74-99) mg/dL POC Glucose (mg/dL) 109 H 116 H 127 H (75-99) mg/dL Calcium (8.4-10.2) mg/dL AST (17-59) U/L Total Protein (6.3-8.2) g/dL Albumin (3.5-5.0) g/dL Crossmatch 11/19/17 11/19/17 11/19/17 Range/Units 04:00 04:00 05:02 RBC 2.61 L (4.30-5.90) m/uL Hgb 7.3 L (13.0-17.5) gm/dL Hct 22.8 L (39.0-53.0) % RDW 16.4 H (11.5-15.5) % Plt Count 76 L (150-450) k/uL Neutrophils # 9.2 H (1.3-7.7) k/uL Lymphocytes # 0.5 L (1.0-4.8) k/uL ABG pO2 (83-108) mmHg ABG Total CO2 (19-24) mmol/L ABG O2 Saturation (94-97) % Chloride 108 H (98-107) mmol/L BUN 24 H (9-20) mg/dL Glucose 116 H (74-99) mg/dL POC Glucose (mg/dL) 127 H (75-99) mg/dL Calcium 7.9 L (8.4-10.2) mg/dL AST 99 H (17-59) U/L Total Protein 4.9 L (6.3-8.2) g/dL Albumin 2.8 L (3.5-5.0) g/dL Crossmatch 11/19/17 11/19/17 11/19/17 Range/Units 05:58 06:55 08:17 RBC (4.30-5.90) m/uL Hgb (13.0-17.5) gm/dL Hct (39.0-53.0) % RDW (11.5-15.5) % Plt Count (150-450) k/uL Neutrophils # (1.3-7.7) k/uL Lymphocytes # (1.0-4.8) k/uL ABG pO2 (83-108) mmHg ABG Total CO2 (19-24) mmol/L ABG O2 Saturation (94-97) % Chloride (98-107) mmol/L BUN (9-20) mg/dL Glucose (74-99) mg/dL POC Glucose (mg/dL) 115 H 104 H 122 H (75-99) mg/dL Calcium (8.4-10.2) mg/dL AST (17-59) U/L Total Protein (6.3-8.2) g/dL Albumin (3.5-5.0) g/dL Crossmatch Assessment and Plan Plan: (1) Coronary artery disease and moderate mitral valve regurgitation Triple vessel disease noted on cardiac cath agent status post CABG and mitral valve repair on all 11/17/2017. Continue on aspirin, Lipitor, metoprolol, Plavix, and aspirin. Hemoglobin A1c 6.7, insulin drip therapy. 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, also accompanied by mitral valvular regurgitation, continue on Lasix, maximize medical treatment, anticipate CBG with possibility of mitral valve repair in the morning 11/17/2017 (4) Hyperlipidemia Patient currently is on statins, and will be titrated to goal of 70 currently on Lipitor 40 mg daily (5) On esomeprazole prophylaxis (6) DVT prophylaxis (7) Steal syndrome, subclavian Carotid Dopplers 11/10/2017 shows no carotid stenosis however there is to and fro flow within the right vertebral artery could reflect manifestation of subclavian steal physiology prior to with continuous flow reversal. Currently asymptomatic continue to monitor (8) Pulmonary hypertension PILAR on 11/10/2017, moderate pulmonary hypertension also shows intact atrial septum with no evidence of [id number] shunt physiology, unable to locate pressures for right ventricular systolic Discharge plan: To be determined Impression and plan of care have been directed as dictated by the signing physician. Amy Renteria nurse practitioner acting as scribe for signing physician.
[2017-11-19 15:20] LABS: Glucose,Whole Blood 112 mg/dL (75-99)
--- NOTE | 2017-11-19 16:15 | P.PCN ---
Date of Procedure: 11/19/17 Preoperative Diagnosis: coronary artery disease with severe ischemic cardiomyopathy, status post CABG with preoperative placement of intra-aortic balloon pump Postoperative Diagnosis: same Procedure(s) Performed: removal of intra-aortic balloon pump Surgeon: Meli Malcolm Indications for Procedure: This is a 72-year-old gentleman who was found to have multivessel coronary artery disease with severe ischemic cardiomyopathy. An intra-aortic balloon pump was placed in the [employer] by Dr. Hogan. He went for coronary artery bypass grafting surgery on November 17 and has done well. This morning he was hemodynamically stable and was no longer in need of intra-aortic balloon pump assistance. Removal of the device was recommended. The risks, benefits, alternatives to this procedure were discussed with the patient. All questions were answered. Consent was obtained. Description of Procedure: The right groin was examined. There was no evidence of hematoma. The balloon pump was turned off. The pre-existing sheath and balloon were removed en arin and the artery was allowed to bleed both antegrade and retrograde for several beats. Direct pressure was held over the site for 40 minutes. There was no residual bleeding or hematoma noted. The groin itself was soft. The right lower extremity appeared warm and well perfused. There were no immediate complications. He remained hemodynamically stable with a good follow-up cardiac index.
[2017-11-19 16:36] LABS: Glucose,Whole Blood 144 mg/dL (75-99)
--- NOTE | 2017-11-19 17:24 | P.PN ---
Subjective Progress Note Date: 11/19/17 Principal diagnosis: Triple-vessel coronary artery disease. Severe ischemic cardiomyopathy. Moderate mitral valve regurgitation. Mild tricuspid valve regurgitation. Diabetes mellitus with preoperative hemoglobin A1c 6.7%. Hyperlipidemia. Moderate to severe restrictive lung disease with preoperative FEV1 43% of predicted. Evidence of diffuse calcific coronary artery disease. 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 Previous tobacco dependence. POD #3 placement of preoperative intra-aortic balloon pump POD #2 quadruple coronary artery bypass grafting using the left internal mammary artery to the left anterior descending artery, reverse saphenous vein graft from the aorta to the diagonal artery, reverse saphenous vein graft from the aorta to the first obtuse marginal artery, reverse saphenous vein graft from the aorta to the posterior descending artery. Mitral valve repair using a complete ring annuloplasty with a 30 mm Kapoor IMR ring. Exclusion of the left atrial appendage using a 35 mm Atriclip. Intraoperative transesophageal echocardiogram and epi-aortic scanning. Intraoperative graft flow measurements using the [employer] system. Post operative normocytic, normochromic anemia, an expected outcome of surgery. Postoperative thrombocytopenia, an expected outcome of surgery. the patient is currently sitting up in a recliner in no acute distress. This morning he was still laying flat in bed with intra-aortic balloon pump in place which was discontinued earlier today. He denies pain or shortness of breath. No new complaints. Mediastinal chest tube was also discontinued earlier today. Objective - Vital Signs Vital signs: Vital Signs Temp 97.9 F 11/19/17 16:00 Pulse 97 11/19/17 16:43 Resp 16 11/19/17 16:00 BP 111/48 11/18/17 18:59 Pulse Ox 83 L 11/19/17 16:00 Intake & Output 11/18/17 11/19/17 11/19/17 18:59 06:59 18:59 Intake Total 3907.400 3987.726 1047.445 Output Total 1390 1253 1175 Balance 197.540 517.726 -127.555 Weight 77.2 kg 76.8 kg 76.8 kg Intake: IV 1246.6 1188.4 739.0 ACETAMINOPHEN IV (For NPO 200 100 ) 1,000 mg In Empty Bag 1 bag @ 400 mls/hr IVPB Q6HR [facility] Rx#:[id number] CO/CI 250 330 140 DOPamine DRIP 800 mg In 79.2 72.0 Dextrose/Water 1 500ml. bag @ 2 MCG/KG/MIN 5.82 mls/hr IV .Q24H [facility] Rx#: [id number] IABP pressure bag 36 36 15 Lactated Ringers 1,000 ml 480 480 400 @ 50 mls/hr IV .Q20H [facility] Rx#:[id number] Milrinone-D5W 32.2 46.0 Milrinone-D5w Pmx 20 mg 73.6 23.0 In Dextrose/Water 1 100ml .bag @ 0.2 MCG/KG/MIN 4. 66 mls/hr IV .[id number] [facility] Rx#:[id number] Pressure Bags 108 108 66 Sodium Chloride 0.9% 99 99 ml @ 0.03 UNITS/MIN 9 mls /hr IV .Q11H7M ONE with Vasopressin 20 unit Rx#: [id number] Intake, IV Titration 340.940 222.326 308.445 Amount DOPamine DRIP 800 mg In 265.72 Dextrose/Water 1 500ml. bag @ 2 MCG/KG/MIN 5.82 mls/hr IV .Q24H [facility] Rx#: [id number] Insulin Regular 100 unit 31.221 15.230 14.583 In Sodium Chloride 0.9% 100 ml @ Per Protocol IV .Q0M [facility] Rx#:[id number] Milrinone-D5w Pmx 20 mg 100 159.998 In Dextrose/Water 1 100ml .bag @ 0.2 MCG/KG/MIN 4. 66 mls/hr IV .[id number] [facility] Rx#:[id number] Norepinephrin 16 mg-0.9% 109.719 47.098 28.142 Ns Pmx 16 mg In 250 ml @ Titrate IV .Q0M [facility] Rx#: [id number] Propofol 1,000 mg In 100 Empty Bag 1 bag @ Titrate IV .Q0M [facility] Rx#: [id number] Oral 50 Blood Product 0 310 Rc Cpda-1 Unit 0 310 [id number] Output: Chest Tube Drainage 780 760 820 Chest Tube Mediastinal 100 20 0 left pleural 285 470 550 right pleural 395 270 270 Drainage 10 5 0 Left Calf 10 5 0 Urine 600 488 355 Other: Voiding Method Indwelling Catheter Indwelling Catheter Indwelling Catheter ABP, PAP, CO, CI - Last Documented Arterial Blood Pressure 107/48 Pulmonary Artery Pressure 41/18 Cardiac Output 4.5 Cardiac Index 2.3 - Constitutional General appearance: Present: cooperative, no acute distress - Respiratory Details: Lungs sounds clear but diminished bilaterally. Respirations even, nonlabored. Currently on room air with oxygen saturation 98%. Able to achieve 750 mL on his incentive spirometry. Mediastinal chest tube to continuous wall suction this morning with 20 mL serosanguineous drainage overnight, 100 mL in 24 hours. Left pleural chest tube to continuous wall suction, 310 mL serosanguineous drainage overnight, 750 mL in 24 hours. Right pleural chest tube to continuous wall suction, 170 mL serosanguineous drainage overnight, 700 mL in 24 hours. No air leaks present. - Cardiovascular Details: S1, S2 present. Regular rate and rhythm, sinus rhythm on monitor. Sternum stable. A/V epicardial pacemaker wires present, grounded. Palpable peripheral pulses bilaterally. No edema present. Right groin soft, nontender after balloon pump pulled earlier today. Right internal jugular [employer], right radial arterial line present. Last cardiac index 2.3 on a touch of levo, Vaso, Primacor, and dopamine. Levo and vaso being weaned as tolerated. Heart hugger in place with patient demonstrating appropriate use. Antiembolism stockings, SCDs present. - Gastrointestinal Gastrointestinal Comment(s): Abdomen soft, nontender, nondistended. Active bowel sounds present 4 quadrants. Tolerating diet. - Genitourinary Genitourinary Comment(s): Fong present draining clear, yellow urine. Urine output 30-40 mL/h overnight. - Integumentary Integumentary Comment(s): Skin warm and dry with evidence of good perfusion. Sternal incision well approximated and covered with dry intact dressing. Left lower extremity EVH site well approximated, AARON drain present with minimal drainage. - Neurologic Neurologic: Present: CNII-XII intact - Musculoskeletal Musculoskeletal: Present: gait normal, strength equal bilaterally - Psychiatric Psychiatric: Present: A&O x's 3, appropriate affect, intact judgment & insight - Allied health notes Allied health notes reviewed: nursing - Labs CBC & Chem 7: 11/19/17 04:00 11/19/17 04:00 Labs: Abnormal Lab Results - Last 24 Hours (Table) 11/10/17 11/18/17 11/18/17 Range/Units 14:36 17:09 18:16 RBC (4.30-5.90) m/uL Hgb (13.0-17.5) gm/dL Hct (39.0-53.0) % RDW (11.5-15.5) % Plt Count (150-450) k/uL Neutrophils # (1.3-7.7) k/uL Lymphocytes # (1.0-4.8) k/uL PT (9.0-12.0) sec INR (<1.2) APTT (22.0-30.0) sec Chloride (98-107) mmol/L BUN (9-20) mg/dL Glucose (74-99) mg/dL POC Glucose (mg/dL) 111 H 123 H (75-99) mg/dL Calcium (8.4-10.2) mg/dL AST (17-59) U/L Total Protein (6.3-8.2) g/dL Albumin (3.5-5.0) g/dL Crossmatch See Detail 11/18/17 11/18/17 11/18/17 Range/Units 19:10 20:08 21:06 RBC (4.30-5.90) m/uL Hgb (13.0-17.5) gm/dL Hct (39.0-53.0) % RDW (11.5-15.5) % Plt Count (150-450) k/uL Neutrophils # (1.3-7.7) k/uL Lymphocytes # (1.0-4.8) k/uL PT (9.0-12.0) sec INR (<1.2) APTT (22.0-30.0) sec Chloride (98-107) mmol/L BUN (9-20) mg/dL Glucose (74-99) mg/dL POC Glucose (mg/dL) 129 H 121 H 106 H (75-99) mg/dL Calcium (8.4-10.2) mg/dL AST (17-59) U/L Total Protein (6.3-8.2) g/dL Albumin (3.5-5.0) g/dL Crossmatch 11/18/17 11/18/17 11/19/17 Range/Units 21:57 23:01 00:04 RBC (4.30-5.90) m/uL Hgb (13.0-17.5) gm/dL Hct (39.0-53.0) % RDW (11.5-15.5) % Plt Count (150-450) k/uL Neutrophils # (1.3-7.7) k/uL Lymphocytes # (1.0-4.8) k/uL PT (9.0-12.0) sec INR (<1.2) APTT (22.0-30.0) sec Chloride (98-107) mmol/L BUN (9-20) mg/dL Glucose (74-99) mg/dL POC Glucose (mg/dL) 122 H 121 H 120 H (75-99) mg/dL Calcium (8.4-10.2) mg/dL AST (17-59) U/L Total Protein (6.3-8.2) g/dL Albumin (3.5-5.0) g/dL Crossmatch 11/19/17 11/19/17 11/19/17 Range/Units 00:58 02:07 02:58 RBC (4.30-5.90) m/uL Hgb (13.0-17.5) gm/dL Hct (39.0-53.0) % RDW (11.5-15.5) % Plt Count (150-450) k/uL Neutrophils # (1.3-7.7) k/uL Lymphocytes # (1.0-4.8) k/uL PT (9.0-12.0) sec INR (<1.2) APTT (22.0-30.0) sec Chloride (98-107) mmol/L BUN (9-20) mg/dL Glucose (74-99) mg/dL POC Glucose (mg/dL) 117 H 109 H 116 H (75-99) mg/dL Calcium (8.4-10.2) mg/dL AST (17-59) U/L Total Protein (6.3-8.2) g/dL Albumin (3.5-5.0) g/dL Crossmatch 11/19/17 11/19/17 11/19/17 Range/Units 03:57 04:00 04:00 RBC 2.61 L (4.30-5.90) m/uL Hgb 7.3 L (13.0-17.5) gm/dL Hct 22.8 L (39.0-53.0) % RDW 16.4 H (11.5-15.5) % Plt Count 76 L (150-450) k/uL Neutrophils # 9.2 H (1.3-7.7) k/uL Lymphocytes # 0.5 L (1.0-4.8) k/uL PT (9.0-12.0) sec INR (<1.2) APTT (22.0-30.0) sec Chloride 108 H (98-107) mmol/L BUN 24 H (9-20) mg/dL Glucose 116 H (74-99) mg/dL POC Glucose (mg/dL) 127 H (75-99) mg/dL Calcium 7.9 L (8.4-10.2) mg/dL AST 99 H (17-59) U/L Total Protein 4.9 L (6.3-8.2) g/dL Albumin 2.8 L (3.5-5.0) g/dL Crossmatch 11/19/17 11/19/17 11/19/17 Range/Units 05:02 05:58 06:55 RBC (4.30-5.90) m/uL Hgb (13.0-17.5) gm/dL Hct (39.0-53.0) % RDW (11.5-15.5) % Plt Count (150-450) k/uL Neutrophils # (1.3-7.7) k/uL Lymphocytes # (1.0-4.8) k/uL PT (9.0-12.0) sec INR (<1.2) APTT (22.0-30.0) sec Chloride (98-107) mmol/L BUN (9-20) mg/dL Glucose (74-99) mg/dL POC Glucose (mg/dL) 127 H 115 H 104 H (75-99) mg/dL Calcium (8.4-10.2) mg/dL AST (17-59) U/L Total Protein (6.3-8.2) g/dL Albumin (3.5-5.0) g/dL Crossmatch 0811/19/17 11/19/17 Range/Units 08:17 09:13 09:22 RBC (4.30-5.90) m/uL Hgb (13.0-17.5) gm/dL Hct (39.0-53.0) % RDW (11.5-15.5) % Plt Count (150-450) k/uL Neutrophils # (1.3-7.7) k/uL Lymphocytes # (1.0-4.8) k/uL PT 13.7 H (9.0-12.0) sec INR 1.5 H (<1.2) APTT 36.7 H (22.0-30.0) sec Chloride (98-107) mmol/L BUN (9-20) mg/dL Glucose (74-99) mg/dL POC Glucose (mg/dL) 122 H 128 H (75-99) mg/dL Calcium (8.4-10.2) mg/dL AST (17-59) U/L Total Protein (6.3-8.2) g/dL Albumin (3.5-5.0) g/dL Crossmatch 11/19/17 11/19/17 11/19/17 Range/Units 10:39 11:31 13:16 RBC (4.30-5.90) m/uL Hgb (13.0-17.5) gm/dL Hct (39.0-53.0) % RDW (11.5-15.5) % Plt Count (150-450) k/uL Neutrophils # (1.3-7.7) k/uL Lymphocytes # (1.0-4.8) k/uL PT (9.0-12.0) sec INR (<1.2) APTT (22.0-30.0) sec Chloride (98-107) mmol/L BUN (9-20) mg/dL Glucose (74-99) mg/dL POC Glucose (mg/dL) 123 H 127 H 115 H (75-99) mg/dL Calcium (8.4-10.2) mg/dL AST (17-59) U/L Total Protein (6.3-8.2) g/dL Albumin (3.5-5.0) g/dL Crossmatch 11/19/17 11/19/17 Range/Units 15:18 16:34 RBC (4.30-5.90) m/uL Hgb (13.0-17.5) gm/dL Hct (39.0-53.0) % RDW (11.5-15.5) % Plt Count (150-450) k/uL Neutrophils # (1.3-7.7) k/uL Lymphocytes # (1.0-4.8) k/uL PT (9.0-12.0) sec INR (<1.2) APTT (22.0-30.0) sec Chloride (98-107) mmol/L BUN (9-20) mg/dL Glucose (74-99) mg/dL POC Glucose (mg/dL) 112 H 144 H (75-99) mg/dL Calcium (8.4-10.2) mg/dL AST (17-59) U/L Total Protein (6.3-8.2) g/dL Albumin (3.5-5.0) g/dL Crossmatch - Imaging and Cardiology Chest x-ray: report reviewed, image reviewed Assessment and Plan (1) Congestive heart failure with cardiomyopathy Current Visit: Yes Status: Chronic Code(s): I50.9 - HEART FAILURE, UNSPECIFIED; I42.9 - CARDIOMYOPATHY, UNSPECIFIED SNOMED Code(s): 49367099 (2) Ischemic cardiomyopathy Current Visit: Yes Status: Chronic Code(s): I25.5 - ISCHEMIC CARDIOMYOPATHY SNOMED Code(s): 964604435 (3) Coronary artery disease Current Visit: Yes Status: Chronic Code(s): I25.10 - ATHSCL HEART DISEASE OF [place] CORONARY ARTERY W/O ANG PCTRS SNOMED Code(s): 41267719 (4) Diabetes mellitus Current Visit: Yes Status: Chronic Code(s): E11.9 - TYPE 2 DIABETES MELLITUS WITHOUT COMPLICATIONS SNOMED Code(s): 39833674 (5) Hyperlipidemia Current Visit: Yes Status: Chronic Code(s): E78.5 - HYPERLIPIDEMIA, UNSPECIFIED SNOMED Code(s): 21441820 (6) Mitral regurgitation Current Visit: Yes Status: Chronic Code(s): I34.0 - NONRHEUMATIC MITRAL ( VALVE) INSUFFICIENCY SNOMED Code(s): 07381653 (7) History of myocardial infarction Current Visit: No Status: Resolved Code(s): I25.2 - OLD MYOCARDIAL INFARCTION SNOMED Code(s): 146071728 (8) Tobacco dependence in remission Current Visit: No Status: Resolved Code(s): F17.201 - NICOTINE DEPENDENCE, UNSPECIFIED, IN REMISSION SNOMED Code(s): 623255918 Plan: 1. Continue aspirin, statin, Plavix, beta michelle. Discontinue subcu heparin, add Arixtra. Will increase beta michelle when able. RN instructed to give despite pressor use to prevent A. fib with RVR. 2. Wean levo, vaso as tolerated. 3. Encourage incentive spirometry use 10 times every hour while awake. 4. Will monitor daily labs and x-rays. No need for further blood products at this time. 5. Pain control with current medication regimen. 6. GI/DVT prophylaxis. 7. Mediastinal chest tube discontinued earlier, patient tolerated well. 8. Bronchodilators per pulmonology. 9. Patient is possibly a candidate for a LifeVest at discharge. Will discuss with cardiology. 10. Diabetic management per primary care service. 11. More recommendations to follow. Time with Patient: Greater than 30
--- NOTE | 2017-11-19 17:47 | PN ---
PROGRESS NOTE Mr. Silva is a 72-year-old male with history of ischemic cardiomyopathy, mitral regurgitation, who underwent coronary bypass grafting and mitral valve repair. He is extubated. The intra-aortic balloon pump is planned to be removed today. He continued to be on pressors. His blood pressure is stable. His urine output is stable. He continued to be in sinus mechanism. He had no evidence of tachycardia or bradycardia. He continues to be on norepinephrine, Milrinone, dopamine. His intra-aortic balloon pump is on 1:2 augmentation. He continues in addition to that on aspirin once a day, Plavix 75 mg daily, metoprolol tartrate 12.5 mg twice a day. PHYSICAL EXAMINATION: Blood pressure running in the 110s-120s with a heart in the 80s. LUNGS: Clear anteriorly. HEART: Regular rate and rhythm. S1, S2. No rub appreciated. ABDOMEN: Soft, nontender. EXTREMITIES: No significant edema. LAB DATA: Revealed BUN and creatinine 24 and 0.93, potassium 4.6. Hemoglobin of 7.3. IMPRESSION: 1. Status post coronary artery bypass grafting and mitral valve repair. 2. Severe ischemic cardiomyopathy. 3. History of hyperlipidemia. 4. History of hypertension. 5. Diabetes mellitus. RECOMMENDATION: Will hopefully remove the intra-aortic pump today, wean the pressors as tolerated. Will start on low-dose metoprolol and adjust the dose as he can tolerate and if he tolerates afterward, then I will add an DARA inhibitor. MMODL / IJN: [id number] /
[2017-11-19 18:26] LABS: Glucose,Whole Blood 129 mg/dL (75-99)
[2017-11-19] MEDS: SODIUM CHLORIDE 0.9% 99 ML with VASOPRESSIN 20 UNIT IV SCH ×4 (19:02→23:48)
[2017-11-19 19:09] LABS: Glucose,Whole Blood 130 mg/dL (75-99)
[2017-11-19] MEDS ORDERED: FUROSEMIDE 10 MG/ML 2 ML VIAL IV ONE (20:01)
[2017-11-19] MEDS: AMIODARONE 450 MG in DEXTROSE 5% IN WATER 250 ML IV SCH ×2 (20:23)
[2017-11-19] MEDS: CLEVIDIPINE BUTYRATE 25 MG in EMPTY BAG 1 BAG IV SCH (21:05)
[2017-11-19 21:20] LABS: Glucose,Whole Blood 128 mg/dL (75-99)
[2017-11-19 22:41] LABS: Glucose,Whole Blood 123 mg/dL (75-99)
[2017-11-19] MEDS: DEXTROSE 5% IN WATER 100 ML with AMIODARONE 150 MG IV PRN (23:24)
[2017-11-19] MEDS ORDERED: FUROSEMIDE 10 MG/ML 4 ML VIAL IV STA (23:25)
[2017-11-19] MEDS: SENNOSIDES-DOCUSATE SODIUM 1 EACH TAB PO SCH (23:48)
[2017-11-20] MEDS: MILRINONE-D5W PMX 20 MG in DEXTROSE/WATER 1 100ML.BAG IV SCH ×3 (00:04→13:50)
[2017-11-20 00:05] LABS: Glucose,Whole Blood 118 mg/dL (75-99)
[2017-11-20] MEDS: KETOROLAC 30 MG/ML 1 ML VIAL IVP SCH (00:13)
[2017-11-20 01:08] LABS: Glucose,Whole Blood 103 mg/dL (75-99)
[2017-11-20 02:32] LABS: Glucose,Whole Blood 119 mg/dL (75-99)
[2017-11-20 03:34] LABS: Glucose,Whole Blood 112 mg/dL (75-99)
[2017-11-20] MEDS: METOPROLOL SUCCINATE (ER) 50 MG TAB.ER.24H PO SCH (03:53)
[2017-11-20] MEDS: HEPARIN SOD,PORK IN 0.45% NACL 25,000 UNIT in 0.45% NACL 1 500ML.BAG IV SCH (03:53)
[2017-11-20] MEDS: INSULIN ASPART 100 UNIT/ML 1 ML 10 ML VIAL SQ SCH ×2 (03:53→03:54)
[2017-11-20] MEDS: MUPIROCIN 2% OINT 22 GM TUBE NASAL SCH ×3 (03:53→20:49)
[2017-11-20 05:12] LABS: Anisocytosis Slight; Basophils % (A) 0 %; Eosinophils % (A) 0 %; HCT 21.3 % (39.0-53.0); Lymphocytes # (A) 0.5 k/uL (1.0-4.8); Lymphocytes % (A) 4 %; MCH 29.3 pg (25.0-35.0); MCV 88.6 fL (80.0-100.0); Mean Platelet Volume 10.5; Monocytes # (A) 0.6 k/uL (0-1.0); Monocytes % (A) 5 %; Neutrophils # (A) 10.8 k/uL (1.3-7.7); Neutrophils % (A) 87 %; Poikilocytosis Slight; RDW 16.6 % (11.5-15.5); WBC 12.4 k/uL (3.8-10.6)
[2017-11-20 05:13] LABS: Platelet Count 76 k/uL (150-450)
[2017-11-20 05:18] LABS: Ionized Calcium 4.7 mg/dL (4.5-5.3)
[2017-11-20] MEDS: AMIODARONE 450 MG in DEXTROSE 5% IN WATER 250 ML IV SCH ×6 (05:19→21:03)
[2017-11-20] MEDS: NOREPINEPHRIN 16 MG-0.9%NS PMX 16 MG/250 ML ML IV SCH (05:21)
[2017-11-20 05:26] LABS: Albumin 2.8 g/dL (3.5-5.0); Calcium 8.1 mg/dL (8.4-10.2); Magnesium 2.3 mg/dL (1.6-2.3); Potassium 4.8 mmol/L (3.5-5.1); Total Bilirubin 1.3 mg/dL (0.2-1.3); Total Protein 4.9 g/dL (6.3-8.2)
[2017-11-20 05:33] LABS: Glucose,Whole Blood 134 mg/dL (75-99)
[2017-11-20] MEDS: IPRATROPIUM-ALBUTEROL 3 ML NEB INHALATION PRN (05:34)
[2017-11-20 06:12] LABS: Glucose,Whole Blood 136 mg/dL (75-99)
[2017-11-20] MEDS: LACTATED RINGERS 1,000 ML IV SCH (06:17)
[2017-11-20 07:00] LABS: Glucose,Whole Blood 133 mg/dL (75-99)
--- NOTE | 2017-11-20 07:05 | XR ---
EXAMINATION TYPE: XR chest 1V portable DATE OF EXAM: 11/20/2017 HISTORY: post cardiac surgery. REFERENCE: Previous study dated 11/19/2017. FINDINGS: There has been a midline sternotomy. There is a [place] catheter in place via a right int ernal jugular approach. Its tip is in the pulmonary outflow tract. There is a left pleural drain in p lace. There is a tiny, left apical pneumothorax. The heart is enlarged. There are small, bilateral ef fusions. There is bibasilar airspace disease. This has improved. IMPRESSION: 1. CARDIOMEGALY. 2. TINY LEFT APICAL PNEUMOTHORAX. 3. IMPROVED AERATION, BOTH LUNGS. 4. SMALL, BILATERAL EFFUSIONS.
[2017-11-20] MEDS: IPRATROPIUM-ALBUTEROL 3 ML NEB INHALATION SCH ×4 (08:03→20:23)
[2017-11-20 08:16] LABS: Glucose,Whole Blood 120 mg/dL (75-99)
[2017-11-20] MEDS: PANTOPRAZOLE 40 MG/10 ML VIAL IVP SCH (08:18)
[2017-11-20] MEDS: ASPIRIN 325 MG TAB PO SCH (08:18)
[2017-11-20] MEDS: METOPROLOL TARTRATE 12.5 MG TAB PO SCH ×2 (08:18→17:50)
[2017-11-20] MEDS: CLOPIDOGREL 75 MG TAB PO SCH (08:19)
[2017-11-20] MEDS: FONDAPARINUX 2.5 MG/0.5 ML SYRINGE SQ SCH (08:19)
--- NOTE | 2017-11-20 08:51 | P.PN ---
Subjective Progress Note Date: 11/20/17 Mr. Silva is a 72-year-old white male patient of Dr. Wong, who presented today on 11/16/2017 for elective placement of intra-aortic balloon pump in preparation for three-vessel coronary artery bypass graft surgery and mitral valve repair for severe mitral valve insufficiency and ischemic cardiomyopathy with severely impaired systolic dysfunction. Surgery is scheduled for tomorrow 11/17/[address] Borjas. Patient has been having progressive exertional dyspnea for the last 2 years, and last 3 months patient started experiencing severe limitation of his exercise capacity, becoming quite dyspneic while climbing a flight of stairs. Patient denied any chest pain, palpitations, syncopal episodes. Patient started experiencing bilateral lower extremity edema , and he presented to his PCP for evaluation of his symptoms. Patient has been quite active in sports during his lifetime, in swimming and running. 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 Does not have any chronic pulmonary conditions, has a remote history of smoking, quit 40 years ago , smoked a pack a day for about 5 years. No marijuana use, no EtOH, or recreational drugs. 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 Patient had a heart catheterization on 11/09/2017 which showed calcification of left main coronary artery, with mild to moderate atherosclerotic plaque in the ostial portion, circumflex with a 95% stenosis, complete occlusion of the LAD just off to the origin of the large diagonal branch, and 70% stenosis of the diagonal branch. Diffuse disease in the RCA, with a 70% stenosis at the bifurcation into PDA and PLV, and significant disease in the PDA and PLV. All the vessels were noted to be irregular, ectatic and in places aneurysmal. LVEDP was 31 mm, without significant gradient across the aortic valve. PILAR on 11/10/2017 showed ischemic cardiomyopathy with severe left ventricular systolic dysfunction, akinetic inferior wall and the septum, hypokinetic anterior wall. Moderate pulmonary hypertension and moderate mitral regurgitation. Patient was recommended surgical intervention for his symptoms, and he opted for three- vessel coronary artery bypass grafting and mitral valve repair tomorrow. Bedside spirometry was reviewed and showed FEV1 of 1.35 L or 43% of predicted, FVC of 1.65 L or 38% of predicted, consistent with severe restriction. Preop chest x-ray from 11/10/2017 showed mild cardiomegaly with small to moderate- sized right greater than the left pleural effusions and associated compressive atelectasis. Patient is seen in the intensive care, resting in bed, room air pulse ox is 92-97%, he denies any dyspnea, he is afebrile, intra-aortic balloon pump is in place, via right femoral artery. He is currently on 1:1 IABP frequency, with augmented diastolic pressure of 131 mmHg. Distal pulses are intact, sensory status is intact. Fong catheter is in place, patient is nonoliguric. Radial pulses are intact. Patient is on heparin drip at 12 u/kg/ hr. No other drips. He is on oral Lasix at 40 mg daily. Currently resting in bed, in no acute distress. On 11/18/2017 the patient is being seen for a follow-up. Note that he had a prolonged surgery which involved a 4-vessel bypass surgery and mitral valve repair. The patient arrived to the intensive care unit around 7 PM in the evening. He was on an intra-aortic balloon pump. He was also inotropes. Chest x-ray was reviewed. The patient adequate expansion of both lungs. The patient a mediastinal chest tube in the right and left pleural chest tubes. Output from the chest as was considerably high especially from the mediastinal chest tube. Overnight the patient required a total of 4 units of packed RBCs and 4 units of 4 shows and plasma and 2 units of platelets and he also received DDAVP. He received also IV fluids in the form of crystalloids and colloids. The output from the sun chest gradually improved and earlier this morning it was only putting out 20 mL an hour and currently Dopplers somewhere between 20- 40 mL an hour. As for the right pleural chest tubes output initially was initially low and then picked up and it's up to 60-80 mL an hour. The left pleural chest tube is putting out 50 mL an hour. The patient is currently on norepinephrine infusion at 7 g per KG pigmented minutes. He is also on methadone at 0.3 g per KG pigmented minutes. He is also on vasopressin and dopamine. He is also on intra-aortic balloon pump with one-to-one augmentation. The augmented blood pressure is 91. Attempts to cut down the augmentation through the intra-aortic balloon pump has failed as the patient is pressure urine output. In terms of his respiratory status, the patient is a mechanical ventilator. He is currently on assist control mode of ventilation at the rate of 12 with an FiO2 of 4040% and a PEEP of 5 and FiO2 has been drop down to 40% and tidal volumes of 500. The morning blood gases showed a pH of 7.39 with a pCO2 of 40 and pO2 of 217, and note that this was done and FiO2 of 100%. His current FiO2 is down to 40%. Renal function stable with a creatinine of 0.8. Rest of the electrodes are all within normal limits. Correlation profile is within normal limits. Most recent hemoglobin is at 7.3. The patient was sedated with Diprivan and the patient is currently off Diprivan and when it parameters are being checked. Urine output is in order of 30-40 mL an hour over the past 2 hours. His most recent blood sugar is at 137. On 11/19/2017 and seeing this patient for a follow-up. This patient is status post four-vessel bypass surgery and mitral valve replacement. Is postop day # 2. Note that the patient was extubated yesterday without any major difficulties and currently is on oxygen by nasal cannula 2 L/m. The chest x- ray shows adequate expansion of both lungs. There is some pulmonary vessel congestion. The patient has all of these chest tubes in place. The [place]end[place] catheter is also in place. As far as his breathing status, is not having any respiratory difficulties. Sternum stable clean and intact. The chest tube output over the past 12 hours was 20 mL from the mediastinum, to 90 mL from the right pleural and for 90 mL from the left poor. His most recent hemodynamic parameters shows a cardiac output of 4.8 with an index of 2.5. He has elevated intra-aortic balloon pump was a one-to-one augmentation throughout the night and currently is down to 1-2 augmentation and his augmented mean arterial blood pressures around 72. He is producing adequate amount of urine output. As far as pressors, the patient is on a combination of Primacor at 0.2 g, norepinephrine which is ranging between 1 and 6 g, dopamine at 2.5 Pedro grams per KG pigmented, and vasopressin at physiologic dose of 0.02 units per hour. He is also on lactated Ringer at 40 mL an hour and the patient is currently off insulin drip. No significant events overnight. Is afebrile. He is awake and alert. Moving all 4 extremities and he has adequate pulses in 4 extremities. On 11/20/2017, the patient is being seen in follow-up. The patient is still in the intensive care unit postop day #3. He has done very well post extubation. The intra-aortic balloon pump was discontinued. Hemodynamically, he still requiring pressors and currently the patient is on levo fed at around 5 g per KG pigmented. He is on milrinone at 0.2 micrograms per KG and he is also on vasopressin at physiologic dose of 0.03 units an hour. The patient is off dopamine. Overall cardiac index is somewhat between 2.2 and 2.3. PA diastolic pressures around 17. Urine output dropped over the past hour down to 50 mL an hour. The patient was receiving a unit of packed RBC. Output from the chest tube has been 700 mL on the left pleural over the past 24 hours is 700 mL on the left pleural 500 mL on the right pleural and there is no mediastinal chest tube that was pulled out yesterday. The patient is still on insulin drip for blood sugar control. He is awake and alert. He is feeling very weak and lethargic. He answers questions and follows commands. Trying to use incentive spirometer. The surgical wound site is dry clean and intact. Hemoglobin today is at 7.0. Rated count is at 76. Creatinine is stable at 1.2. Overnight the patient went into to establish with rapid ventricular response. The patient was given to loading dose of amiodarone. Currently is on a maintenance and eye doctor maintenance down to 0.5 mg/m. Around 1 AM this morning the patient converted back to normal sinus rhythm. Objective - Vital Signs Vital signs: Vital Signs Temp 98.1 F 11/20/17 08:38 Pulse 79 11/20/17 08:38 Resp 18 11/20/17 08:38 BP 93/41 11/19/17 22:30 Pulse Ox 98 11/20/17 08:38 Intake & Output 11/19/17 11/20/17 11/20/17 18:59 06:59 18:59 Intake Total 0327.412 9404.488 98 Output Total 1295 1115 50 Balance -119.384 178.488 48 Weight 76.8 kg 78.3 kg Intake: IV 854.6 720.4 98 CO/CI 140 60 30 DOPamine DRIP 800 mg In 86.4 Dextrose/Water 1 500ml. bag @ 2 MCG/KG/MIN 5.82 mls/hr IV .Q24H [facility] Rx#: [id number] Dextrose 5% in Water 100 200 ml @ 618 mls/hr IV .Q10M PRN with Amiodarone 150 mg Rx#:[id number] IABP pressure bag 15 Lactated Ringers 1,000 ml 480 320 50 @ 50 mls/hr IV .Q20H [facility] Rx#:[id number] Milrinone-D5W 55.2 41.4 Pressure Bags 78 99 9 Sodium Chloride 0.9% 99 9 ml @ 0.02 UNITS/MIN 6 mls /hr IV .[id number] JANNA with Vasopressin 20 unit Rx#: [id number] Intake, IV Titration 321.016 393.088 Amount Amiodarone 450 mg In 250 Dextrose 5% in Water 250 ml @ 1 MG/MIN 33.33 mls/ hr IV .Q7H31M [facility] Rx#: [id number] DOPamine DRIP 800 mg In 265.72 Dextrose/Water 1 500ml. bag @ 2 MCG/KG/MIN 5.82 mls/hr IV .Q24H [facility] Rx#: [id number] Insulin Regular 100 unit 17.175 23.690 In Sodium Chloride 0.9% 100 ml @ Per Protocol IV .Q0M [facility] Rx#:[id number] Milrinone-D5w Pmx 20 mg 79.143 In Dextrose/Water 1 100ml .bag @ 0.2 MCG/KG/MIN 4. 66 mls/hr IV .[id number] [facility] Rx#:[id number] Norepinephrin 16 mg-0.9% 38.121 40.255 Ns Pmx 16 mg In 250 ml @ Titrate IV .Q0M [facility] Rx#: [id number] Oral 180 Blood Product 0 Rc Cpda-1 Unit 0 [id number] Output: Chest Tube Drainage 900 810 40 Chest Tube Mediastinal 0 left pleural 610 360 30 right pleural 290 450 10 Drainage 0 10 Left Calf 0 10 Urine 395 295 10 Other: Voiding Method Indwelling Catheter Indwelling Catheter # Bowel Movements 0 ABP, PAP, CO, CI - Last Documented Arterial Blood Pressure 113/47 Pulmonary Artery Pressure 31/17 Cardiac Output 4.2 Cardiac Index 2.2 - Exam GENERAL EXAM: Patient is currently extubated and currently on 2 L of oxygen by nasal cannula. The patient is a right IJ [place]end[place] catheter which is in place. HEAD: Normocephalic/atraumatic. The patient is intubated on a mechanical ventilator. EYES: Normal reaction of pupils, equal size. Conjunctiva pink, sclera white. NOSE: Clear with pink turbinates. THROAT: No erythema or exudates. NECK: No masses, no JVD, no thyroid enlargement, no adenopathy. The patient is a right IJ [place] catheter. CHEST: No chest wall deformity. Symmetrical expansion. Breath sounds are equal and symmetrical. Sternum stable clean and intact. All of the chest tubes are in place , the mediastinal chest tube is removed and the right pleural and left pleural chest tube. LUNGS: Equal air entry with no crackles, wheeze, rhonchi or dullness. CVS: Regular rate and rhythm, normal S1 and S2, no gallops, no rubs, systolic murmur at the apex. Adequate pulses in the lower extremities bilaterally ABDOMEN: Soft, nontender. No hepatosplenomegaly, normal bowel sounds, no guarding or rigidity. EXTREMITIES: No clubbing, no edema, no cyanosis, 1+ pulses and upper and lower extremities. MUSCULOSKELETAL: Muscle strength and tone normal. SPINE: No scoliosis or deformity SKIN: No rashes CENTRAL NERVOUS SYSTEM: Awake and alert and following commands and answer questions appropriately.. PSYCHIATRIC: Cannot be assessed - Labs CBC & Chem 7: 11/20/17 05:00 11/20/17 05:00 Labs: Abnormal Lab Results - Last 24 Hours (Table) 11/19/17 11/19/17 11/19/17 Range/Units 09:13 09:22 10:39 WBC (3.8-10.6) k/uL RBC (4.30-5.90) m/uL Hgb (13.0-17.5) gm/dL Hct (39.0-53.0) % RDW (11.5-15.5) % Plt Count (150-450) k/uL Neutrophils # (1.3-7.7) k/uL Lymphocytes # (1.0-4.8) k/uL PT 13.7 H (9.0-12.0) sec INR 1.5 H (<1.2) APTT 36.7 H (22.0-30.0) sec BUN (9-20) mg/dL Glucose (74-99) mg/dL POC Glucose (mg/dL) 128 H 123 H (75-99) mg/dL Calcium (8.4-10.2) mg/dL AST (17-59) U/L ALT (21-72) U/L Total Protein (6.3-8.2) g/dL Albumin (3.5-5.0) g/dL Crossmatch 11/19/17 11/19/17 11/19/17 Range/Units 11:31 13:16 15:18 WBC (3.8-10.6) k/uL RBC (4.30-5.90) m/uL Hgb (13.0-17.5) gm/dL Hct (39.0-53.0) % RDW (11.5-15.5) % Plt Count (150-450) k/uL Neutrophils # (1.3-7.7) k/uL Lymphocytes # (1.0-4.8) k/uL PT (9.0-12.0) sec INR (<1.2) APTT (22.0-30.0) sec BUN (9-20) mg/dL Glucose (74-99) mg/dL POC Glucose (mg/dL) 127 H 115 H 112 H (75-99) mg/dL Calcium (8.4-10.2) mg/dL AST (17-59) U/L ALT (21-72) U/L Total Protein (6.3-8.2) g/dL Albumin (3.5-5.0) g/dL Crossmatch 11/19/17 11/19/17 11/19/17 Range/Units 16:34 18:25 19:08 WBC (3.8-10.6) k/uL RBC (4.30-5.90) m/uL Hgb (13.0-17.5) gm/dL Hct (39.0-53.0) % RDW (11.5-15.5) % Plt Count (150-450) k/uL Neutrophils # (1.3-7.7) k/uL Lymphocytes # (1.0-4.8) k/uL PT (9.0-12.0) sec INR (<1.2) APTT (22.0-30.0) sec BUN (9-20) mg/dL Glucose (74-99) mg/dL POC Glucose (mg/dL) 144 H 129 H 130 H (75-99) mg/dL Calcium (8.4-10.2) mg/dL AST (17-59) U/L ALT (21-72) U/L Total Protein (6.3-8.2) g/dL Albumin (3.5-5.0) g/dL Crossmatch 11/19/17 11/19/17 11/20/17 Range/Units 21:18 22:40 00:03 WBC (3.8-10.6) k/uL RBC (4.30-5.90) m/uL Hgb (13.0-17.5) gm/dL Hct (39.0-53.0) % RDW (11.5-15.5) % Plt Count (150-450) k/uL Neutrophils # (1.3-7.7) k/uL Lymphocytes # (1.0-4.8) k/uL PT (9.0-12.0) sec INR (<1.2) APTT (22.0-30.0) sec BUN (9-20) mg/dL Glucose (74-99) mg/dL POC Glucose (mg/dL) 128 H 123 H 118 H (75-99) mg/dL Calcium (8.4-10.2) mg/dL AST (17-59) U/L ALT (21-72) U/L Total Protein (6.3-8.2) g/dL Albumin (3.5-5.0) g/dL Crossmatch 11/20/17 11/20/17 11/20/17 Range/Units 01:06 02:31 03:32 WBC (3.8-10.6) k/uL RBC (4.30-5.90) m/uL Hgb (13.0-17.5) gm/dL Hct (39.0-53.0) % RDW (11.5-15.5) % Plt Count (150-450) k/uL Neutrophils # (1.3-7.7) k/uL Lymphocytes # (1.0-4.8) k/uL PT (9.0-12.0) sec INR (<1.2) APTT (22.0-30.0) sec BUN (9-20) mg/dL Glucose (74-99) mg/dL POC Glucose (mg/dL) 103 H 119 H 112 H (75-99) mg/dL Calcium (8.4-10.2) mg/dL AST (17-59) U/L ALT (21-72) U/L Total Protein (6.3-8.2) g/dL Albumin (3.5-5.0) g/dL Crossmatch 11/20/17 11/20/17 11/20/17 Range/Units 05:00 05:00 05:32 WBC 12.4 H (3.8-10.6) k/uL RBC 2.40 L (4.30-5.90) m/uL Hgb 7.0 L* (13.0-17.5) gm/dL Hct 21.3 L (39.0-53.0) % RDW 16.6 H (11.5-15.5) % Plt Count 76 L (150-450) k/uL Neutrophils # 10.8 H (1.3-7.7) k/uL Lymphocytes # 0.5 L (1.0-4.8) k/uL PT (9.0-12.0) sec INR (<1.2) APTT (22.0-30.0) sec BUN 38 H (9-20) mg/dL Glucose 121 H (74-99) mg/dL POC Glucose (mg/dL) 134 H (75-99) mg/dL Calcium 8.1 L (8.4-10.2) mg/dL AST 681 H (17-59) U/L ALT 245 H (21-72) U/L Total Protein 4.9 L (6.3-8.2) g/dL Albumin 2.8 L (3.5-5.0) g/dL Crossmatch 11/20/17 11/20/17 11/20/17 Range/Units 06:00 06:11 06:58 WBC (3.8-10.6) k/uL RBC (4.30-5.90) m/uL Hgb (13.0-17.5) gm/dL Hct (39.0-53.0) % RDW (11.5-15.5) % Plt Count (150-450) k/uL Neutrophils # (1.3-7.7) k/uL Lymphocytes # (1.0-4.8) k/uL PT (9.0-12.0) sec INR (<1.2) APTT (22.0-30.0) sec BUN (9-20) mg/dL Glucose (74-99) mg/dL POC Glucose (mg/dL) 136 H 133 H (75-99) mg/dL Calcium (8.4-10.2) mg/dL AST (17-59) U/L ALT (21-72) U/L Total Protein (6.3-8.2) g/dL Albumin (3.5-5.0) g/dL Crossmatch See Detail 11/20/17 Range/Units 08:14 WBC (3.8-10.6) k/uL RBC (4.30-5.90) m/uL Hgb (13.0-17.5) gm/dL Hct (39.0-53.0) % RDW (11.5-15.5) % Plt Count (150-450) k/uL Neutrophils # (1.3-7.7) k/uL Lymphocytes # (1.0-4.8) k/uL PT (9.0-12.0) sec INR (<1.2) APTT (22.0-30.0) sec BUN (9-20) mg/dL Glucose (74-99) mg/dL POC Glucose (mg/dL) 120 H (75-99) mg/dL Calcium (8.4-10.2) mg/dL AST (17-59) U/L ALT (21-72) U/L Total Protein (6.3-8.2) g/dL Albumin (3.5-5.0) g/dL Crossmatch Assessment and Plan Plan: Assessment: #1. Symptomatic multivessel coronary artery disease, with total occlusion of the LAD, 70% stenosis of the diagonal artery, 95% stenosis of the circumflex, diffuse disease in the RCA with 70% stenosis at the bifurcation of the PDA and PLV. Patient is scheduled for coronary artery bypass grafting and mitral valve repair on 11/17/2017 On 11/18/2017, the patient is postop day #1. The patient underwent coronary artery bypass surgery and mitral valve repair. The patient had an intra-aortic balloon pump inserted preoperatively and the balloon pump is still active with one-to-one augmentation. The patient is also on a combination of inotropes including vasopressin, norepinephrine, milrinone, and renal dose dopamine. The urine output is adequate and the blood pressure augmented is around 95. The patient is producing adequate amount of urine output. On 11/19/2017, the patient is postop day #2. He has undergone coronary artery bypass surgery with 4 vessels and mitral valve repair. The patient is extubated he is currently on 2 L of oxygen by nasal cannula. Output from the chest tube has dropped considerably although the left pleural is still active. No evidence of any air leaks. Chest x-ray shows adequate expansion of both lungs with small pleural effusions. The patient is oxygenating well. The patient is hemodynamically doing better. Intra-aortic balloon pump is still in place with 1-2 augmentation. Pressors are being titrated and the current combination includes norepinephrine infusion, dopamine infusion, Primacor infusion and vasopressin. Note that the dopamine is at renal dose and there vasopressin is at physiologic dose. Norepinephrine infusion is running between 1 and 6 g per KG pigmented./min On 11/20/2017 the patient is postop day #3. He is looking better. He is off the intra-aortic balloon pump. History requiring pressors. We will given a unit of packed RBC and manages pressors based on his hemodynamic parameters. One concern is a drop in urine output over going to monitor that and this will hopefully improve following the packed RBC transfusion. Continue the milrinone and continue the norepinephrine infusion for now. #2. Mitral valve regurgitation, post mitral valve repair #3. Ischemic cardiomyopathy, with severe left ventricular systolic dysfunction , with significantly impaired preoperative physical ejection fraction #4 postoperative bleeding via chest tubes. The mediastinal chest tube was removed and the patient has a pleural chest tubes in place #5. Diabetes mellitus type 2, currently on insulin drip #6. Remote history of nicotine dependence, patient quit 40 years ago, carries 5 -pack-year smoking history #7. Postoperative anemia with a hemoglobin of of 7.0 and the patient will be receiving units of packed RBC. There is an expected outcome of surgery #8. Diabetic retinopathy #9 new onset atrial fibrillation with rapid ventricular response. The patient was loaded a maintained on amiodarone and subsequently converted back to normal sinus rhythm. Plan The patient has good progress postop. He is extubated. Intra-aortic balloon pump has been removed. Chest x-ray from today shows adequate expansion of both lungs. No significant pleural effusions. Chest tubes are still in place. One concern is this still activity that was sitting in both of the chest tubes. Hemoglobin is down to 7. He'll be receiving units of packed RBC. We'll monitor urine output. Continue the amiodarone loading and subsequently the patient will placed on maintenance amiodarone. We'll continue to follow. He' ll be staying in IC from the 24 hours.
--- NOTE | 2017-11-20 09:06 | P.PN ---
Subjective Progress Note Date: 11/20/17 Principal diagnosis: Triple-vessel coronary artery disease. Severe ischemic cardiomyopathy. Moderate mitral valve regurgitation. Mild tricuspid valve regurgitation. Diabetes mellitus with preoperative hemoglobin A1c 6.7%. Hyperlipidemia. Moderate to severe restrictive lung disease with preoperative FEV1 43% of predicted. Evidence of diffuse calcific coronary artery disease. 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 Previous tobacco dependence. POD #4 placement of preoperative intra-aortic balloon pump POD #3 quadruple coronary artery bypass grafting using the left internal mammary artery to the left anterior descending artery, reverse saphenous vein graft from the aorta to the diagonal artery, reverse saphenous vein graft from the aorta to the first obtuse marginal artery, reverse saphenous vein graft from the aorta to the posterior descending artery. Mitral valve repair using a complete ring annuloplasty with a 30 mm Kapoor IMR ring. Exclusion of the left atrial appendage using a 35 mm Atriclip. Intraoperative transesophageal echocardiogram and epi-aortic scanning. Intraoperative graft flow measurements using the [employer] system. Post operative normocytic, normochromic anemia, an expected outcome of surgery. Postoperative thrombocytopenia, an expected outcome of surgery. Postoperative atrial fibrillation, an expected outcome of surgery. Patient is currently sitting up in bed in no acute distress. States pain is controlled on current medication regimen. Denies shortness of breath. Does complain of some fatigue. Intra-aortic balloon pump and mediastinal chest tubes were discontinued yesterday. Patient's hemoglobin this morning 7.0, urine output has dropped off, and patient still requiring pressor support, he is currently receiving 1 unit packed red blood cells. Objective - Vital Signs Vital signs: Vital Signs Temp 98.1 F 11/20/17 08:38 Pulse 79 11/20/17 08:38 Resp 18 11/20/17 08:38 BP 93/41 11/19/17 22:30 Pulse Ox 98 11/20/17 08:38 Intake & Output 11/19/17 11/20/17 11/20/17 18:59 06:59 18:59 Intake Total 0458.727 9241.488 212.989 Output Total 1295 1115 50 Balance -119.384 178.488 162.989 Weight 76.8 kg 78.3 kg Intake: IV 854.6 720.4 98 CO/CI 140 60 30 DOPamine DRIP 800 mg In 86.4 Dextrose/Water 1 500ml. bag @ 2 MCG/KG/MIN 5.82 mls/hr IV .Q24H [facility] Rx#: [id number] Dextrose 5% in Water 100 200 ml @ 618 mls/hr IV .Q10M PRN with Amiodarone 150 mg Rx#:[id number] IABP pressure bag 15 Lactated Ringers 1,000 ml 480 320 50 @ 50 mls/hr IV .Q20H [facility] Rx#:[id number] Milrinone-D5W 55.2 41.4 Pressure Bags 78 99 9 Sodium Chloride 0.9% 99 9 ml @ 0.02 UNITS/MIN 6 mls /hr IV .[id number] [facility] with Vasopressin 20 unit Rx#: [id number] Intake, IV Titration 321.016 393.088 114.989 Amount Amiodarone 450 mg In 250 114.989 Dextrose 5% in Water 250 ml @ 1 MG/MIN 33.33 mls/ hr IV .Q7H31M [facility] Rx#: [id number] DOPamine DRIP 800 mg In 265.72 Dextrose/Water 1 500ml. bag @ 2 MCG/KG/MIN 5.82 mls/hr IV .Q24H [facility] Rx#: [id number] Insulin Regular 100 unit 17.175 23.690 In Sodium Chloride 0.9% 100 ml @ Per Protocol IV .Q0M [facility] Rx#:[id number] Milrinone-D5w Pmx 20 mg 79.143 In Dextrose/Water 1 100ml .bag @ 0.2 MCG/KG/MIN 4. 66 mls/hr IV .[id number] [facility] Rx#:[id number] Norepinephrin 16 mg-0.9% 38.121 40.255 Ns Pmx 16 mg In 250 ml @ Titrate IV .Q0M [facility] Rx#: [id number] Oral 180 Blood Product 0 Rc Cpda-1 Unit 0 [id number] Output: Chest Tube Drainage 900 810 40 Chest Tube Mediastinal 0 left pleural 610 360 30 right pleural 290 450 10 Drainage 0 10 Left Calf 0 10 Urine 395 295 10 Other: Voiding Method Indwelling Catheter Indwelling Catheter # Bowel Movements 0 ABP, PAP, CO, CI - Last Documented Arterial Blood Pressure 113/47 Pulmonary Artery Pressure 31/17 Cardiac Output 4.2 Cardiac Index 2.2 - Constitutional General appearance: Present: cooperative, no acute distress - Respiratory Details: Lungs sounds clear but diminished bilaterally. Respirations even, nonlabored. Currently on 2 L nasal cannula with oxygen saturation 98%. Able to achieve 750 mL on his incentive spirometry. Left pleural chest tube to continuous wall suction, 160 mL serosanguineous drainage overnight, 700 mL in 24 hours. Right pleural chest tube to continuous wall suction, 170 mL serosanguineous drainage overnight, 500 mL in 24 hours. No air leaks present. - Cardiovascular Details: S1, S2 present. Regular rate and rhythm, sinus rhythm on monitor. Sternum stable. A/V epicardial pacemaker wires present, grounded. Palpable peripheral pulses bilaterally. No edema present. Right groin soft, nontender. Right internal jugular [place]is, right radial arterial line present. Last CO/CI 4.4/2.3 on levo, Vaso, and Primacor. Levo and vaso being weaned as tolerated. Heart hugger in place with patient demonstrating appropriate use. Antiembolism stockings, SCDs present. - Gastrointestinal Gastrointestinal Comment(s): Abdomen soft, nontender, nondistended. Active bowel sounds present 4 quadrants. Tolerating diet - Genitourinary Genitourinary Comment(s): Fong present draining clear, yellow urine. Urine output 20-35 mL/h overnight, with 15 mL output in the last hour. - Integumentary Integumentary Comment(s): Skin warm and dry with evidence of good perfusion. Sternal incision well approximated and covered with dry intact dressing. Left lower extremity EVH site well approximated, AARON drain present with minimal drainage. - Neurologic Neurologic: Present: CNII-XII intact - Musculoskeletal Musculoskeletal: Present: gait normal, generalized weakness, strength equal bilaterally - Psychiatric Psychiatric Comment(s): Patient is a bit impulsive and does attempt to get up without assistance. Psychiatric: Present: A&O x's 3, appropriate affect - Allied health notes Allied health notes reviewed: nursing - Labs CBC & Chem 7: 11/20/17 05:00 11/20/17 05:00 Labs: Abnormal Lab Results - Last 24 Hours (Table) 11/19/17 11/19/17 11/19/17 Range/Units 09:13 09:22 10:39 WBC (3.8-10.6) k/uL RBC (4.30-5.90) m/uL Hgb (13.0-17.5) gm/dL Hct (39.0-53.0) % RDW (11.5-15.5) % Plt Count (150-450) k/uL Neutrophils # (1.3-7.7) k/uL Lymphocytes # (1.0-4.8) k/uL PT 13.7 H (9.0-12.0) sec INR 1.5 H (<1.2) APTT 36.7 H (22.0-30.0) sec BUN (9-20) mg/dL Glucose (74-99) mg/dL POC Glucose (mg/dL) 128 H 123 H (75-99) mg/dL Calcium (8.4-10.2) mg/dL AST (17-59) U/L ALT (21-72) U/L Total Protein (6.3-8.2) g/dL Albumin (3.5-5.0) g/dL Crossmatch 11/19/17 11/19/17 11/19/17 Range/Units 11:31 13:16 15:18 WBC (3.8-10.6) k/uL RBC (4.30-5.90) m/uL Hgb (13.0-17.5) gm/dL Hct (39.0-53.0) % RDW (11.5-15.5) % Plt Count (150-450) k/uL Neutrophils # (1.3-7.7) k/uL Lymphocytes # (1.0-4.8) k/uL PT (9.0-12.0) sec INR (<1.2) APTT (22.0-30.0) sec BUN (9-20) mg/dL Glucose (74-99) mg/dL POC Glucose (mg/dL) 127 H 115 H 112 H (75-99) mg/dL Calcium (8.4-10.2) mg/dL AST (17-59) U/L ALT (21-72) U/L Total Protein (6.3-8.2) g/dL Albumin (3.5-5.0) g/dL Crossmatch 11/19/17 11/19/17 11/19/17 Range/Units 16:34 18:25 19:08 WBC (3.8-10.6) k/uL RBC (4.30-5.90) m/uL Hgb (13.0-17.5) gm/dL Hct (39.0-53.0) % RDW (11.5-15.5) % Plt Count (150-450) k/uL Neutrophils # (1.3-7.7) k/uL Lymphocytes # (1.0-4.8) k/uL PT (9.0-12.0) sec INR (<1.2) APTT (22.0-30.0) sec BUN (9-20) mg/dL Glucose (74-99) mg/dL POC Glucose (mg/dL) 144 H 129 H 130 H (75-99) mg/dL Calcium (8.4-10.2) mg/dL AST (17-59) U/L ALT (21-72) U/L Total Protein (6.3-8.2) g/dL Albumin (3.5-5.0) g/dL Crossmatch 11/19/17 11/19/17 11/20/17 Range/Units 21:18 22:40 00:03 WBC (3.8-10.6) k/uL RBC (4.30-5.90) m/uL Hgb (13.0-17.5) gm/dL Hct (39.0-53.0) % RDW (11.5-15.5) % Plt Count (150-450) k/uL Neutrophils # (1.3-7.7) k/uL Lymphocytes # (1.0-4.8) k/uL PT (9.0-12.0) sec INR (<1.2) APTT (22.0-30.0) sec BUN (9-20) mg/dL Glucose (74-99) mg/dL POC Glucose (mg/dL) 128 H 123 H 118 H (75-99) mg/dL Calcium (8.4-10.2) mg/dL AST (17-59) U/L ALT (21-72) U/L Total Protein (6.3-8.2) g/dL Albumin (3.5-5.0) g/dL Crossmatch 11/20/17 11/20/17 11/20/17 Range/Units 01:06 02:31 03:32 WBC (3.8-10.6) k/uL RBC (4.30-5.90) m/uL Hgb (13.0-17.5) gm/dL Hct (39.0-53.0) % RDW (11.5-15.5) % Plt Count (150-450) k/uL Neutrophils # (1.3-7.7) k/uL Lymphocytes # (1.0-4.8) k/uL PT (9.0-12.0) sec INR (<1.2) APTT (22.0-30.0) sec BUN (9-20) mg/dL Glucose (74-99) mg/dL POC Glucose (mg/dL) 103 H 119 H 112 H (75-99) mg/dL Calcium (8.4-10.2) mg/dL AST (17-59) U/L ALT (21-72) U/L Total Protein (6.3-8.2) g/dL Albumin (3.5-5.0) g/dL Crossmatch 11/20/17 11/20/17 11/20/17 Range/Units 05:00 05:00 05:32 WBC 12.4 H (3.8-10.6) k/uL RBC 2.40 L (4.30-5.90) m/uL Hgb 7.0 L* (13.0-17.5) gm/dL Hct 21.3 L (39.0-53.0) % RDW 16.6 H (11.5-15.5) % Plt Count 76 L (150-450) k/uL Neutrophils # 10.8 H (1.3-7.7) k/uL Lymphocytes # 0.5 L (1.0-4.8) k/uL PT (9.0-12.0) sec INR (<1.2) APTT (22.0-30.0) sec BUN 38 H (9-20) mg/dL Glucose 121 H (74-99) mg/dL POC Glucose (mg/dL) 134 H (75-99) mg/dL Calcium 8.1 L (8.4-10.2) mg/dL AST 681 H (17-59) U/L ALT 245 H (21-72) U/L Total Protein 4.9 L (6.3-8.2) g/dL Albumin 2.8 L (3.5-5.0) g/dL Crossmatch 11/20/17 11/20/17 11/20/17 Range/Units 06:00 06:11 06:58 WBC (3.8-10.6) k/uL RBC (4.30-5.90) m/uL Hgb (13.0-17.5) gm/dL Hct (39.0-53.0) % RDW (11.5-15.5) % Plt Count (150-450) k/uL Neutrophils # (1.3-7.7) k/uL Lymphocytes # (1.0-4.8) k/uL PT (9.0-12.0) sec INR (<1.2) APTT (22.0-30.0) sec BUN (9-20) mg/dL Glucose (74-99) mg/dL POC Glucose (mg/dL) 136 H 133 H (75-99) mg/dL Calcium (8.4-10.2) mg/dL AST (17-59) U/L ALT (21-72) U/L Total Protein (6.3-8.2) g/dL Albumin (3.5-5.0) g/dL Crossmatch See Detail 11/20/17 Range/Units 08:14 WBC (3.8-10.6) k/uL RBC (4.30-5.90) m/uL Hgb (13.0-17.5) gm/dL Hct (39.0-53.0) % RDW (11.5-15.5) % Plt Count (150-450) k/uL Neutrophils # (1.3-7.7) k/uL Lymphocytes # (1.0-4.8) k/uL PT (9.0-12.0) sec INR (<1.2) APTT (22.0-30.0) sec BUN (9-20) mg/dL Glucose (74-99) mg/dL POC Glucose (mg/dL) 120 H (75-99) mg/dL Calcium (8.4-10.2) mg/dL AST (17-59) U/L ALT (21-72) U/L Total Protein (6.3-8.2) g/dL Albumin (3.5-5.0) g/dL Crossmatch - Imaging and Cardiology Chest x-ray: report reviewed, image reviewed Assessment and Plan (1) Congestive heart failure with cardiomyopathy Current Visit: Yes Status: Chronic Code(s): I50.9 - HEART FAILURE, UNSPECIFIED; I42.9 - CARDIOMYOPATHY, UNSPECIFIED SNOMED Code(s): 86295534 (2) Ischemic cardiomyopathy Current Visit: Yes Status: Chronic Code(s): I25.5 - ISCHEMIC CARDIOMYOPATHY SNOMED Code(s): 031298331 (3) Coronary artery disease Current Visit: Yes Status: Chronic Code(s): I25.10 - ATHSCL HEART DISEASE OF [place] CORONARY ARTERY W/O ANG PCTRS SNOMED Code(s): 65363036 (4) Diabetes mellitus Current Visit: Yes Status: Chronic Code(s): E11.9 - TYPE 2 DIABETES MELLITUS WITHOUT COMPLICATIONS SNOMED Code(s): 30990437 (5) Hyperlipidemia Current Visit: Yes Status: Chronic Code(s): E78.5 - HYPERLIPIDEMIA, UNSPECIFIED SNOMED Code(s): 48727327 (6) Mitral regurgitation Current Visit: Yes Status: Chronic Code(s): I34.0 - NONRHEUMATIC MITRAL ( VALVE) INSUFFICIENCY SNOMED Code(s): 80425876 (7) History of myocardial infarction Current Visit: No Status: Resolved Code(s): I25.2 - OLD MYOCARDIAL INFARCTION SNOMED Code(s): 336706166 (8) Tobacco dependence in remission Current Visit: No Status: Resolved Code(s): F17.201 - NICOTINE DEPENDENCE, UNSPECIFIED, IN REMISSION SNOMED Code(s): 390311302 Plan: 1. Continue aspirin, Plavix, Arixtra, beta michelle. Will increase beta michelle when able. RN instructed to give despite pressor use. Statin discontinued secondary to elevated transaminases. Will restart when transaminases returned to normal. 2. Continue amiodarone for A. fib prophylaxis. Will transition to oral amiodarone. No need for anticoagulation unless patient is in atrial fibrillation for longer than 24 hours. 3. Wean levo, vaso as tolerated. 4. Keep Fong catheter for another 24 hours for strict accurate intake and output. 5. Wean O2 as tolerated. Encourage incentive spirometry use 10 times every hour while awake. 6. Will monitor daily labs and x-rays. Patient receiving 1 unit packed red blood cells this morning. 7. Pain control with current medication regimen. 8. GI/DVT prophylaxis. 9. Bronchodilators per pulmonology. 10. Patient is possibly a candidate for a LifeVest at discharge. Will defer to cardiology judgment. 11. Diabetic management per primary care service. 12. Patient to remain in the intensive care unit for another 24 hours. 13. More recommendations to follow. Time with Patient: Greater than 30
[2017-11-20] MEDS: FERROUS SULFATE 325 MG TAB PO SCH ×2 (09:22→17:21)
[2017-11-20] MEDS: ASCORBIC ACID 500 MG TAB PO SCH ×2 (09:22→17:21)
[2017-11-20] MEDS: AMIODARONE 200 MG TAB PO SCH ×2 (09:55→20:49)
[2017-11-20 10:04] LABS: Glucose,Whole Blood 107 mg/dL (75-99)
[2017-11-20] MEDS ORDERED: FUROSEMIDE 10 MG/ML 10 ML VIAL IV SCH (10:30)
[2017-11-20 12:09] LABS: Glucose,Whole Blood 114 mg/dL (75-99)
--- NOTE | 2017-11-20 14:03 | P.PN ---
Subjective Progress Note Date: 11/20/17 This is a pleasant gentleman patient of Dr. Spann, newly established to the office to evaluate shortness of breath, dyspnea on exertion, underwent cardiac cath and found to have ischemic cardiomyopathy with severe LV dysfunction, triple-vessel disease prior to bypass surgery, admitted for bypass surgery and valve repair. He has underlying history of diabetes mellitus type 2, hyperlipidemia, Cardiac cath performed 11/09/2017 shows left main coronary up was calcified, circumflex 95% stenosis in the ostial portion, LAD totally occluded just of to the origin of the large diagonal branch, diagonal branch from the percent stenosis, 70% stenosis in the PDA and PLV severe left ventricle systolic dysfunction and mitral regurgitation He is currently in ICU being prepped for CABG and mitral valve repair on 2017 and has intra-aortic balloon pump done through the right femoral artery. 11/17: Patient is having open-heart surgery today. 11/18: Patient is status post quadruple coronary artery bypass grafting using the left internal mammary artery to the left anterior descending coronary artery, a reverse greater saphenous vein graft from the aorta to the diagonal coronary artery, reverse greater saphenous vein graft from the aorta to the first obtuse marginal coronary artery, a reverse greater saphenous vein graft from the aorta to the posterior descending coronary artery and mitral valve repair. Patient remains in the intensive care unit intubated and on mechanical ventilation currently on CPAP for weaning parameters. He continues to have intra-aortic balloon pump in place which is plan to keep for 1 more day. He has a right, left and mediastinal chest tubes in place draining serosanguineous fluid. Urine output is 50-60 mL per hour. He is also on vasopressors. Hemoglobin A1c is 6.7. 83: Patient remains in the intensive care unit. He is currently off oxygen and pulse oxing. He continues to have all [address] Balloon pump was removed. Urine output has been adequate. White count is normal. Hemoglobin 7.3, INR 1.5, creatinine 0.93, blood sugars are running between 104 and 127. He has been afebrile. Heart rate running in the 90s. Blood pressure is stable with current vasopressors. Pulse ox is 9700% on room air. Patient denies having any chest pain. No abdominal pain. No nausea. H/4. Patient examined the bedside in the ICU. Currently off oxygen. He is not making enough urine output. Creatinine function has worsened from 0.8-1.2. Hemoglobin 7 this morning status post transfusion 1 unit PRBC. Patient is denies any chest pain, shortness of breath is resting comfortably in the chair. He still continues to have [address] with a AARON drain. Blood sugar between 100-125. Objective - Vital Signs Vital signs: Vital Signs Temp 98.2 F 11/20/17 09:21 Pulse 71 11/20/17 13:00 Resp 14 11/20/17 13:00 BP 99/49 11/20/17 12:00 Pulse Ox 99 11/20/17 13:00 Intake & Output 11/19/17 11/20/17 11/20/17 18:59 06:59 18:59 Intake Total 3922.162 1716.488 606.179 Output Total 1295 1115 250 Balance -119.384 178.488 356.179 Weight 76.8 kg 78.3 kg Intake: IV 854.6 720.4 278 CO/CI 140 60 50 DOPamine DRIP 800 mg In 86.4 Dextrose/Water 1 500ml. bag @ 2 MCG/KG/MIN 5.82 mls/hr IV .Q24H [facility] Rx#: [id number] Dextrose 5% in Water 100 200 ml @ 618 mls/hr IV .Q10M PRN with Amiodarone 150 mg Rx#:[id number] IABP pressure bag 15 Lactated Ringers 1,000 ml 480 320 150 @ 20 mls/hr IV .Q24H [facility] Rx#:[id number] Milrinone-D5W 55.2 41.4 Pressure Bags 78 99 54 Sodium Chloride 0.9% 99 24 ml @ 0.02 UNITS/MIN 6 mls /hr IV .[id number] [facility] with Vasopressin 20 unit Rx#: [id number] Intake, IV Titration 321.016 393.088 328.179 Amount Amiodarone 450 mg In 250 199.122 Dextrose 5% in Water 250 ml @ 1 MG/MIN 33.33 mls/ hr IV .Q7H31M [facility] Rx#: [id number] DOPamine DRIP 800 mg In 265.72 Dextrose/Water 1 500ml. bag @ 2 MCG/KG/MIN 5.82 mls/hr IV .Q24H [facility] Rx#: [id number] Insulin Regular 100 unit 17.175 23.690 10.416 In Sodium Chloride 0.9% 100 ml @ Per Protocol IV .Q0M [facility] Rx#:[id number] Milrinone-D5w Pmx 20 mg 79.143 64.153 In Dextrose/Water 1 100ml .bag @ 0.1 MCG/KG/MIN 2. 33 mls/hr IV .Q24H [facility] Rx #:[id number] Norepinephrin 16 mg-0.9% 38.121 40.255 54.488 Ns Pmx 16 mg In 250 ml @ Titrate IV .Q0M [facility] Rx#: [id number] Oral 180 Blood Product 0 Rc Cpda-1 Unit 0 [id number] Output: Chest Tube Drainage 900 810 185 Chest Tube Mediastinal 0 left pleural 610 360 120 right pleural 290 450 65 Drainage 0 10 Left Calf 0 10 Urine 395 295 65 Other: Voiding Method Indwelling Catheter Indwelling Catheter # Bowel Movements 0 ABP, PAP, CO, CI - Last Documented Arterial Blood Pressure 101/41 Pulmonary Artery Pressure 37/16 Cardiac Output 4.1 Cardiac Index 2.1 - Exam - Exam General appearance: average body habitus, cooperative, no acute distress - EENT Eyes: anicteric sclerae, EOMI, PERRLA, dentition normal, normal appearance no vision in the left eye blurring of the cornea with spelling ENT: NA/AT, normal oropharynx, extubated - Respiratory Respiratory: bilateral: CTA, negative: diminished, dullness, rales, rhonchi, wheezing, continues to have right pleural, left pleural chest tubes in place. - Cardiovascular Rhythm: Regularly irregular Heart sounds: normal: S1, S2 Abnormal Heart Sounds: no systolic murmur, no diastolic murmur, no rub, no S3 Gallop, no S4 Gallop, no click, no other - Gastrointestinal General gastrointestinal: normal bowel sounds, soft, Fong draining clear marta urine - Integumentary Integumentary: normal, normal turgor - Neurologic Neurologic: Awake, focal deficits (None) - Musculoskeletal Musculoskeletal: gait not assessed, strength equal bilaterally - Labs CBC & Chem 7: 11/20/17 05:00 11/20/17 05:00 Labs: Abnormal Lab Results - Last 24 Hours (Table) 11/19/17 11/19/17 11/19/17 Range/Units 15:18 16:34 18:25 WBC (3.8-10.6) k/uL RBC (4.30-5.90) m/uL Hgb (13.0-17.5) gm/dL Hct (39.0-53.0) % RDW (11.5-15.5) % Plt Count (150-450) k/uL Neutrophils # (1.3-7.7) k/uL Lymphocytes # (1.0-4.8) k/uL BUN (9-20) mg/dL Glucose (74-99) mg/dL POC Glucose (mg/dL) 112 H 144 H 129 H (75-99) mg/dL Calcium (8.4-10.2) mg/dL AST (17-59) U/L ALT (21-72) U/L Total Protein (6.3-8.2) g/dL Albumin (3.5-5.0) g/dL Crossmatch 11/19/17 11/19/17 11/19/17 Range/Units 19:08 21:18 22:40 WBC (3.8-10.6) k/uL RBC (4.30-5.90) m/uL Hgb (13.0-17.5) gm/dL Hct (39.0-53.0) % RDW (11.5-15.5) % Plt Count (150-450) k/uL Neutrophils # (1.3-7.7) k/uL Lymphocytes # (1.0-4.8) k/uL BUN (9-20) mg/dL Glucose (74-99) mg/dL POC Glucose (mg/dL) 130 H 128 H 123 H (75-99) mg/dL Calcium (8.4-10.2) mg/dL AST (17-59) U/L ALT (21-72) U/L Total Protein (6.3-8.2) g/dL Albumin (3.5-5.0) g/dL Crossmatch 11/20/17 11/20/17 11/20/17 Range/Units 00:03 01:06 02:31 WBC (3.8-10.6) k/uL RBC (4.30-5.90) m/uL Hgb (13.0-17.5) gm/dL Hct (39.0-53.0) % RDW (11.5-15.5) % Plt Count (150-450) k/uL Neutrophils # (1.3-7.7) k/uL Lymphocytes # (1.0-4.8) k/uL BUN (9-20) mg/dL Glucose (74-99) mg/dL POC Glucose (mg/dL) 118 H 103 H 119 H (75-99) mg/dL Calcium (8.4-10.2) mg/dL AST (17-59) U/L ALT (21-72) U/L Total Protein (6.3-8.2) g/dL Albumin (3.5-5.0) g/dL Crossmatch 11/20/17 11/20/17 11/20/17 Range/Units 03:32 05:00 05:00 WBC 12.4 H (3.8-10.6) k/uL RBC 2.40 L (4.30-5.90) m/uL Hgb 7.0 L* (13.0-17.5) gm/dL Hct 21.3 L (39.0-53.0) % RDW 16.6 H (11.5-15.5) % Plt Count 76 L (150-450) k/uL Neutrophils # 10.8 H (1.3-7.7) k/uL Lymphocytes # 0.5 L (1.0-4.8) k/uL BUN 38 H (9-20) mg/dL Glucose 121 H (74-99) mg/dL POC Glucose (mg/dL) 112 H (75-99) mg/dL Calcium 8.1 L (8.4-10.2) mg/dL AST 681 H (17-59) U/L ALT 245 H (21-72) U/L Total Protein 4.9 L (6.3-8.2) g/dL Albumin 2.8 L (3.5-5.0) g/dL Crossmatch 11/20/17 11/20/17 11/20/17 Range/Units 05:32 06:00 06:11 WBC (3.8-10.6) k/uL RBC (4.30-5.90) m/uL Hgb (13.0-17.5) gm/dL Hct (39.0-53.0) % RDW (11.5-15.5) % Plt Count (150-450) k/uL Neutrophils # (1.3-7.7) k/uL Lymphocytes # (1.0-4.8) k/uL BUN (9-20) mg/dL Glucose (74-99) mg/dL POC Glucose (mg/dL) 134 H 136 H (75-99) mg/dL Calcium (8.4-10.2) mg/dL AST (17-59) U/L ALT (21-72) U/L Total Protein (6.3-8.2) g/dL Albumin (3.5-5.0) g/dL Crossmatch See Detail 11/20/17 11/20/17 11/20/17 Range/Units 06:58 08:14 10:02 WBC (3.8-10.6) k/uL RBC (4.30-5.90) m/uL Hgb (13.0-17.5) gm/dL Hct (39.0-53.0) % RDW (11.5-15.5) % Plt Count (150-450) k/uL Neutrophils # (1.3-7.7) k/uL Lymphocytes # (1.0-4.8) k/uL BUN (9-20) mg/dL Glucose (74-99) mg/dL POC Glucose (mg/dL) 133 H 120 H 107 H (75-99) mg/dL Calcium (8.4-10.2) mg/dL AST (17-59) U/L ALT (21-72) U/L Total Protein (6.3-8.2) g/dL Albumin (3.5-5.0) g/dL Crossmatch 11/20/17 Range/Units 12:08 WBC (3.8-10.6) k/uL RBC (4.30-5.90) m/uL Hgb (13.0-17.5) gm/dL Hct (39.0-53.0) % RDW (11.5-15.5) % Plt Count (150-450) k/uL Neutrophils # (1.3-7.7) k/uL Lymphocytes # (1.0-4.8) k/uL BUN (9-20) mg/dL Glucose (74-99) mg/dL POC Glucose (mg/dL) 114 H (75-99) mg/dL Calcium (8.4-10.2) mg/dL AST (17-59) U/L ALT (21-72) U/L Total Protein (6.3-8.2) g/dL Albumin (3.5-5.0) g/dL Crossmatch Assessment and Plan Plan: (1) Coronary artery disease and moderate mitral valve regurgitation Triple vessel disease noted on cardiac cath agent status post CABG and mitral valve repair on all 11/17/2017. Continue on aspirin, Lipitor, metoprolol, Plavix, and aspirin. Hemoglobin A1c 6.7, insulin drip therapy. ICU supervisor metal fabricating Dr. Fajardo consult. 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, also accompanied by mitral valvular regurgitation, continue on Lasix, maximize medical treatment, anticipate CBG with possibility of mitral valve repair in the morning 11/17/2017 (4) Hyperlipidemia Patient currently is on statins, and will be titrated to goal of 70 currently on Lipitor 40 mg daily (5) On esomeprazole prophylaxis (6) DVT prophylaxis (7) Steal syndrome, subclavian Carotid Dopplers 11/10/2017 shows no carotid stenosis however there is to and fro flow within the right vertebral artery could reflect manifestation of subclavian steal physiology prior to with continuous flow reversal. Currently asymptomatic continue to monitor (8) Pulmonary hypertension PILAR on 11/10/2017, moderate pulmonary hypertension also shows intact atrial septum with no evidence of [id number] shunt physiology, unable to locate pressures for right ventricular systolic. (9) his urine output secondary to prerenal etiology. One dose of IV Lasix given urinalysis ordered for evaluation. Discharge plan: To be determined
[2017-11-20 14:15] LABS: Glucose,Whole Blood 137 mg/dL (75-99)
[2017-11-20] MEDS: INSULIN REGULAR 100 UNIT in SODIUM CHLORIDE 0.9% 100 ML IV SCH (14:18)
[2017-11-20 16:13] LABS: Glucose,Whole Blood 137 mg/dL (75-99)
[2017-11-20] MEDS ORDERED: SODIUM CHLORIDE 0.9% IVPB STA (17:16)
[2017-11-20] MEDS ORDERED: ALBUMIN HUMAN 5% 250 ML in EMPTY BAG 1 BAG IVPB STA (17:16)
[2017-11-20] MEDS ORDERED: CALCIUM CHLORIDE IVPB STA (17:16)
[2017-11-20] MEDS: CLEVIDIPINE BUTYRATE 25 MG in EMPTY BAG 1 BAG IV SCH (17:39)
[2017-11-20 17:59] LABS: Glucose,Whole Blood 143 mg/dL (75-99)
[2017-11-20 18:30] LABS: Magnesium 2.4 mg/dL (1.6-2.3); Potassium 4.5 mmol/L (3.5-5.1)
[2017-11-20 20:22] LABS: Glucose,Whole Blood 111 mg/dL (75-99)
[2017-11-20] MEDS: SENNOSIDES-DOCUSATE SODIUM 1 EACH TAB PO SCH (20:49)
--- NOTE | 2017-11-20 20:51 | PN ---
PROGRESS NOTE This patient is status post coronary artery bypass surgery and mitral wall repair. The patient is currently sitting in a reclining seat. He is not in any acute distress. The patient's intra-aortic balloon pump is removed. PHYSICAL EXAMINATION: At present revealed the patient's blood pressure is 100/70 mmHg, jugular venous pressure is elevated. First and second heart sounds are normal. Lungs reveal bilateral basilar rales. The patient's [place]-Wendie catheter shows . Her blood sugars are fairly well-controlled. Patient's hemoglobin is 7.0. Creatinine is 1.2. Patient had a significant rise in the liver enzymes with SGOT 681 and SGPT 245. Chest x-ray is suggestive of congestive cardiac failure. RECOMMENDATIONS: This patient is status post a colon to bypass surgery and mitral valve repair. The patient does have a systolic murmur at the left sternal border, which could be secondary to tricuspid regurgitation. The patient clinically does have evidence of congestive cardiac failure with volume overload. is elevated. Patient has abnormal liver enzymes which could be secondary to hepatic congestion. Patient is currently on hold for 1 week. The patient is getting Lasix 80 mg IV q.12 hourly. The patient was discussed with the nurse practitioner from [facility]. MMODL / IJN: [id number] /
[2017-11-20 22:02] LABS: Glucose,Whole Blood 95 mg/dL (75-99)
[2017-11-20] MEDS: HYDROcodone/APAP 5-325MG 1 EACH TAB PO PRN (23:18)
[2017-11-21 00:34] LABS: Glucose,Whole Blood 120 mg/dL (75-99)
[2017-11-21 01:13] LABS: Glucose,Whole Blood 122 mg/dL (75-99)
[2017-11-21 02:12] LABS: Ionized Calcium 4.7 mg/dL (4.5-5.3)
[2017-11-21 02:21] LABS: Potassium 4.8 mmol/L (3.5-5.1)
[2017-11-21] MEDS: LACTATED RINGERS 1,000 ML IV SCH ×2 (02:57→22:44)
[2017-11-21 02:58] LABS: Glucose,Whole Blood 126 mg/dL (75-99)
[2017-11-21] MEDS: ONDANSETRON 4 MG/2 ML VIAL IVP PRN (03:00)
[2017-11-21] MEDS: DEXTROSE 5% IN WATER 100 ML with AMIODARONE 150 MG IV PRN (03:29)
[2017-11-21] MEDS: HYDROcodone/APAP 5-325MG 1 EACH TAB PO PRN ×3 (04:07→17:34)
[2017-11-21 04:37] LABS: Glucose,Whole Blood 143 mg/dL (75-99)
[2017-11-21 04:52] LABS: Anisocytosis Slight; Basophils % (A) 0 %; Eosinophils % (A) 0 %; HGB 7.7 gm/dL (13.0-17.5); Lymphocytes # (A) 0.5 k/uL (1.0-4.8); Lymphocytes % (A) 4 %; MCH 29.6 pg (25.0-35.0); MCHC 33.5 g/dL (31.0-37.0); MCV 88.4 fL (80.0-100.0); Mean Platelet Volume 10.6; Monocytes # (A) 0.5 k/uL (0-1.0); Monocytes % (A) 4 %; Neutrophils # (A) 10.2 k/uL (1.3-7.7); Neutrophils % (A) 89 %; RDW 16.6 % (11.5-15.5); WBC 11.5 k/uL (3.8-10.6)
[2017-11-21 04:54] LABS: INR 1.7 (<1.2); Prothrombin Time 15.7 sec (9.0-12.0)
[2017-11-21 04:56] LABS: Platelet Count 47 k/uL (150-450)
[2017-11-21 05:07] LABS: Calcium 8.3 mg/dL (8.4-10.2); Magnesium 2.4 mg/dL (1.6-2.3); Phosphorus 4.5 mg/dL (2.5-4.5); Potassium 4.6 mmol/L (3.5-5.1); Total Bilirubin 2.1 mg/dL (0.2-1.3); Total Protein 5.2 g/dL (6.3-8.2)
[2017-11-21] MEDS: AMIODARONE 200 MG TAB PO SCH ×2 (06:13→20:15)
[2017-11-21] MEDS: METOPROLOL TARTRATE 12.5 MG TAB PO SCH ×2 (06:13→20:15)
[2017-11-21 06:27] LABS: Glucose,Whole Blood 129 mg/dL (75-99)
--- NOTE | 2017-11-21 06:41 | XR ---
EXAMINATION TYPE: XR chest 1V portable DATE OF EXAM: 11/21/2017 HISTORY: post cardiac surgery. REFERENCE: Previous study dated 11/20/2017. FINDINGS: There has been a midline sternotomy. A [place]-Wendie catheter remains in place. Its tip is in t he pulmonary outflow tract. Bilateral pleural drains are in place. No pneumothorax is evident on toda y's examination. There is bibasilar airspace disease which is mild. There are small, bilateral effusi ons.. IMPRESSION: RESOLUTION OF THE PATIENT'S LEFT APICAL PNEUMOTHORAX.
[2017-11-21 08:17] LABS: Glucose,Whole Blood 144 mg/dL (75-99)
[2017-11-21] MEDS: IPRATROPIUM-ALBUTEROL 3 ML NEB INHALATION SCH ×4 (08:36→19:52)
[2017-11-21] MEDS: FERROUS SULFATE 325 MG TAB PO SCH ×2 (08:38→17:34)
[2017-11-21] MEDS: FONDAPARINUX 2.5 MG/0.5 ML SYRINGE SQ SCH (08:38)
[2017-11-21] MEDS: PANTOPRAZOLE 40 MG TABLET PO SCH (08:38)
[2017-11-21] MEDS: ASCORBIC ACID 500 MG TAB PO SCH ×2 (08:38→17:34)
[2017-11-21] MEDS ORDERED: CALCIUM CHLORIDE 500 MG in SODIUM CHLORIDE 0.9% 50 ML IVPB ONE (09:12)
--- NOTE | 2017-11-21 09:22 | P.PN ---
Subjective Progress Note Date: 11/21/17 Principal diagnosis: Triple-vessel coronary artery disease. Severe ischemic cardiomyopathy. Moderate mitral valve regurgitation. Mild tricuspid valve regurgitation. Diabetes mellitus with preoperative hemoglobin A1c 6.7%. Hyperlipidemia. Moderate to severe restrictive lung disease with preoperative FEV1 43% of predicted. Evidence of diffuse calcific coronary artery disease. 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 Previous tobacco dependence. POD #5 placement of preoperative intra-aortic balloon pump POD #4 quadruple coronary artery bypass grafting using the left internal mammary artery to the left anterior descending artery, reverse saphenous vein graft from the aorta to the diagonal artery, reverse saphenous vein graft from the aorta to the first obtuse marginal artery, reverse saphenous vein graft from the aorta to the posterior descending artery. Mitral valve repair using a complete ring annuloplasty with a 30 mm Kapoor IMR ring. Exclusion of the left atrial appendage using a 35 mm Atriclip. Intraoperative transesophageal echocardiogram and epi-aortic scanning. Intraoperative graft flow measurements using the [employer] system. Post operative normocytic, normochromic anemia, an expected outcome of surgery. Postoperative thrombocytopenia, an expected outcome of surgery. Postoperative atrial fibrillation, an expected outcome of surgery. Postoperative elevated transaminases, an unexpected outcome of surgery, likely secondary to low flow state post surgery. Patient is currently sitting up in a recliner in no acute distress. States pain is controlled on current medication regimen. Denies shortness of breath. No new complaints. Currently is still on Primacor, and requiring levo for blood pressure support. Patient had IV Lasix yesterday without any increase in urine output, did receive albumin later in the day. He had another episode of A. fib last night and received a bolus of IV amiodarone, remains on oral amiodarone. He did receive 1 unit packed red blood cells just a for a hemoglobin of 7.0, this morning hemoglobin is 7.7. He did drop his platelet count from 76,000 to 47,000 this morning. Transaminases elevated again this morning. Objective - Vital Signs Vital signs: Vital Signs Temp 97.5 F L 11/21/17 04:00 Pulse 69 11/21/17 08:39 Resp 13 11/21/17 08:00 BP 99/49 11/20/17 12:00 Pulse Ox 100 11/21/17 08:00 Intake & Output 11/20/17 11/21/17 11/21/17 18:59 06:59 18:59 Intake Total 4064.976 4522.511 319.498 Output Total 570 762 105 Balance 1128.890 367.511 214.498 Weight 77.3 kg Intake: IV 483 508 78 CO/CI 110 60 20 Dextrose 5% in Water 100 100 ml @ 618 mls/hr IV .Q10M PRN with Amiodarone 150 mg Rx#:[id number] Lactated Ringers 1,000 ml 250 240 40 @ 20 mls/hr IV .Q24H JANNA Rx#:[id number] Pressure Bags 99 108 18 Sodium Chloride 0.9% 99 24 ml @ 0.02 UNITS/MIN 6 mls /hr IV .[id number] JANNA with Vasopressin 20 unit Rx#: [id number] Intake, IV Titration 665.890 81.511 1.498 Amount Albumin Human 5% 250 ml 250 In Empty Bag 1 bag @ 250 mls/hr IVPB ONCE STA Rx#: [id number] Amiodarone 450 mg In 199.122 Dextrose 5% in Water 250 ml @ 1 MG/MIN 33.33 mls/ hr IV .Q7H31M JANNA Rx#: [id number] Calcium Chloride 250 mg 50 In Sodium Chloride 0.9% 50 ml @ 200 mls/hr IVPB ONCE STA Rx#:[id number] Insulin Regular 100 unit 18.016 9.612 1.498 In Sodium Chloride 0.9% 100 ml @ Per Protocol IV .Q0M JANNA Rx#:[id number] Milrinone-D5w Pmx 20 mg 64.153 33.63 In Dextrose/Water 1 100ml .bag @ 0.1 MCG/KG/MIN 2. 33 mls/hr IV .Q24H JANNA Rx #:[id number] Norepinephrin 16 mg-0.9% 84.599 38.269 Ns Pmx 16 mg In 250 ml @ Titrate IV .Q0M JANNA Rx#: [id number] Oral 240 540 240 Blood Product 310 Rc Cpda-1 Unit 310 [id number] Output: Chest Tube Drainage 340 452 70 left pleural 195 272 40 right pleural 145 180 30 Drainage 20 0 Left Calf 20 0 Urine 230 290 35 Other: Voiding Method Indwelling Catheter Indwelling Catheter # Bowel Movements 0 ABP, PAP, CO, CI - Last Documented Arterial Blood Pressure 97/49 Pulmonary Artery Pressure 39/16 Cardiac Output 4.6 Cardiac Index 2.4 - Constitutional General appearance: Present: cooperative, no acute distress - Respiratory Details: Lungs sounds diminished bilaterally with fine crackles in the bases. Respirations even, nonlabored. Currently on 2 L nasal cannula with oxygen saturation 100%. Able to achieve 750-1000 mL on his incentive spirometry. Left pleural chest tube to continuous wall suction, 120 mL serosanguineous drainage overnight, 400 mL in 24 hours. Right pleural chest tube to continuous wall suction, 110 mL serosanguineous drainage overnight, 350 mL in 24 hours. No air leaks present. - Cardiovascular Details: S1, S2 present. Regular rate and rhythm, sinus rhythm on monitor. Sternum stable. A/V epicardial pacemaker wires present, grounded. Palpable peripheral pulses bilaterally. No edema present. Right groin soft, nontender. Right internal jugular Harriet/Cordis, right radial arterial line present. Last CO/CI 5.9/3.0 on levo and Primacor. Levo being weaned as tolerated. Heart hugger in place with patient demonstrating appropriate use. Antiembolism stockings, SCDs present. - Gastrointestinal Gastrointestinal Comment(s): Abdomen soft, nontender, nondistended. Active bowel sounds present 4 quadrants. Tolerating clear liquids. Positive flatus, negative bowel movement. - Genitourinary Genitourinary Comment(s): Fong present draining clear, yellow urine. Urine output 15-30 mL/h overnight, no increase in output with Lasix given yesterday. - Integumentary Integumentary Comment(s): Skin warm and dry with evidence of good perfusion. Sternal incision well approximated and covered with dry intact dressing. Left lower extremity EVH site well approximated, AARON drain present with no drainage overnight. - Neurologic Neurologic: Present: CNII-XII intact - Musculoskeletal Musculoskeletal: Present: generalized weakness, strength equal bilaterally - Psychiatric Psychiatric: Present: A&O x's 3, appropriate affect - Allied health notes Allied health notes reviewed: nursing - Labs CBC & Chem 7: 11/21/17 04:30 11/21/17 04:30 Labs: Abnormal Lab Results - Last 24 Hours (Table) 11/20/17 11/20/17 11/20/17 Range/Units 04:30 06:00 10:02 WBC (3.8-10.6) k/uL RBC (4.30-5.90) m/uL Hgb (13.0-17.5) gm/dL Hct (39.0-53.0) % RDW (11.5-15.5) % Plt Count (150-450) k/uL Neutrophils # (1.3-7.7) k/uL Lymphocytes # (1.0-4.8) k/uL PT 15.7 H (9.0-12.0) sec INR 1.7 H (<1.2) Carbon Dioxide (22-30) mmol/L BUN (9-20) mg/dL Creatinine (0.66-1.25) mg/dL Glucose (74-99) mg/dL POC Glucose (mg/dL) 107 H (75-99) mg/dL Calcium (8.4-10.2) mg/dL Magnesium (1.6-2.3) mg/dL Total Bilirubin (0.2-1.3) mg/dL AST (17-59) U/L ALT (21-72) U/L Total Protein (6.3-8.2) g/dL Albumin (3.5-5.0) g/dL Crossmatch See Detail 11/20/17 11/20/17 11/20/17 Range/Units 12:08 14:13 16:11 WBC (3.8-10.6) k/uL RBC (4.30-5.90) m/uL Hgb (13.0-17.5) gm/dL Hct (39.0-53.0) % RDW (11.5-15.5) % Plt Count (150-450) k/uL Neutrophils # (1.3-7.7) k/uL Lymphocytes # (1.0-4.8) k/uL PT (9.0-12.0) sec INR (<1.2) Carbon Dioxide (22-30) mmol/L BUN (9-20) mg/dL Creatinine (0.66-1.25) mg/dL Glucose (74-99) mg/dL POC Glucose (mg/dL) 114 H 137 H 137 H (75-99) mg/dL Calcium (8.4-10.2) mg/dL Magnesium (1.6-2.3) mg/dL Total Bilirubin (0.2-1.3) mg/dL AST (17-59) U/L ALT (21-72) U/L Total Protein (6.3-8.2) g/dL Albumin (3.5-5.0) g/dL Crossmatch 11/20/17 11/20/17 11/20/17 Range/Units 17:56 18:00 20:20 WBC (3.8-10.6) k/uL RBC (4.30-5.90) m/uL Hgb (13.0-17.5) gm/dL Hct (39.0-53.0) % RDW (11.5-15.5) % Plt Count (150-450) k/uL Neutrophils # (1.3-7.7) k/uL Lymphocytes # (1.0-4.8) k/uL PT (9.0-12.0) sec INR (<1.2) Carbon Dioxide (22-30) mmol/L BUN (9-20) mg/dL Creatinine (0.66-1.25) mg/dL Glucose (74-99) mg/dL POC Glucose (mg/dL) 143 H 111 H (75-99) mg/dL Calcium (8.4-10.2) mg/dL Magnesium 2.4 H (1.6-2.3) mg/dL Total Bilirubin (0.2-1.3) mg/dL AST (17-59) U/L ALT (21-72) U/L Total Protein (6.3-8.2) g/dL Albumin (3.5-5.0) g/dL Crossmatch 11/21/17 11/21/17 11/21/17 Range/Units 00:33 01:11 01:50 WBC (3.8-10.6) k/uL RBC (4.30-5.90) m/uL Hgb (13.0-17.5) gm/dL Hct (39.0-53.0) % RDW (11.5-15.5) % Plt Count (150-450) k/uL Neutrophils # (1.3-7.7) k/uL Lymphocytes # (1.0-4.8) k/uL PT (9.0-12.0) sec INR (<1.2) Carbon Dioxide 20 L (22-30) mmol/L BUN (9-20) mg/dL Creatinine (0.66-1.25) mg/dL Glucose (74-99) mg/dL POC Glucose (mg/dL) 120 H 122 H (75-99) mg/dL Calcium (8.4-10.2) mg/dL Magnesium (1.6-2.3) mg/dL Total Bilirubin (0.2-1.3) mg/dL AST (17-59) U/L ALT (21-72) U/L Total Protein (6.3-8.2) g/dL Albumin (3.5-5.0) g/dL Crossmatch 11/21/17 11/21/17 11/21/17 Range/Units 02:56 04:30 04:30 WBC 11.5 H (3.8-10.6) k/uL RBC 2.60 L (4.30-5.90) m/uL Hgb 7.7 L (13.0-17.5) gm/dL Hct 23.0 L (39.0-53.0) % RDW 16.6 H (11.5-15.5) % Plt Count 47 L* (150-450) k/uL Neutrophils # 10.2 H (1.3-7.7) k/uL Lymphocytes # 0.5 L (1.0-4.8) k/uL PT (9.0-12.0) sec INR (<1.2) Carbon Dioxide 21 L (22-30) mmol/L BUN 53 H (9-20) mg/dL Creatinine 1.80 H (0.66-1.25) mg/dL Glucose 128 H (74-99) mg/dL POC Glucose (mg/dL) 126 H (75-99) mg/dL Calcium 8.3 L (8.4-10.2) mg/dL Magnesium 2.4 H (1.6-2.3) mg/dL Total Bilirubin 2.1 H (0.2-1.3) mg/dL AST 3436 H (17-59) U/L ALT 975 H (21-72) U/L Total Protein 5.2 L (6.3-8.2) g/dL Albumin 3.0 L (3.5-5.0) g/dL Crossmatch 11/21/17 11/21/17 11/21/17 Range/Units 04:36 06:25 08:15 WBC (3.8-10.6) k/uL RBC (4.30-5.90) m/uL Hgb (13.0-17.5) gm/dL Hct (39.0-53.0) % RDW (11.5-15.5) % Plt Count (150-450) k/uL Neutrophils # (1.3-7.7) k/uL Lymphocytes # (1.0-4.8) k/uL PT (9.0-12.0) sec INR (<1.2) Carbon Dioxide (22-30) mmol/L BUN (9-20) mg/dL Creatinine (0.66-1.25) mg/dL Glucose (74-99) mg/dL POC Glucose (mg/dL) 143 H 129 H 144 H (75-99) mg/dL Calcium (8.4-10.2) mg/dL Magnesium (1.6-2.3) mg/dL Total Bilirubin (0.2-1.3) mg/dL AST (17-59) U/L ALT (21-72) U/L Total Protein (6.3-8.2) g/dL Albumin (3.5-5.0) g/dL Crossmatch - Imaging and Cardiology Chest x-ray: report reviewed, image reviewed Assessment and Plan (1) Congestive heart failure with cardiomyopathy Current Visit: Yes Status: Chronic Code(s): I50.9 - HEART FAILURE, UNSPECIFIED; I42.9 - CARDIOMYOPATHY, UNSPECIFIED SNOMED Code(s): 89549500 (2) Ischemic cardiomyopathy Current Visit: Yes Status: Chronic Code(s): I25.5 - ISCHEMIC CARDIOMYOPATHY SNOMED Code(s): 911002180 (3) Coronary artery disease Current Visit: Yes Status: Chronic Code(s): I25.10 - ATHSCL HEART DISEASE OF [place] CORONARY ARTERY W/O ANG PCTRS SNOMED Code(s): 63929857 (4) Diabetes mellitus Current Visit: Yes Status: Chronic Code(s): E11.9 - TYPE 2 DIABETES MELLITUS WITHOUT COMPLICATIONS SNOMED Code(s): 12534446 (5) Hyperlipidemia Current Visit: Yes Status: Chronic Code(s): E78.5 - HYPERLIPIDEMIA, UNSPECIFIED SNOMED Code(s): 28519019 (6) Mitral regurgitation Current Visit: Yes Status: Chronic Code(s): I34.0 - NONRHEUMATIC MITRAL ( VALVE) INSUFFICIENCY SNOMED Code(s): 24553744 (7) History of myocardial infarction Current Visit: No Status: Resolved Code(s): I25.2 - OLD MYOCARDIAL INFARCTION SNOMED Code(s): 946410803 (8) Tobacco dependence in remission Current Visit: No Status: Resolved Code(s): F17.201 - NICOTINE DEPENDENCE, UNSPECIFIED, IN REMISSION SNOMED Code(s): 856198854 Plan: 1. Continue low-dose aspirin, Plavix, Arixtra, beta michelle. Will increase beta michelle when able. RN instructed to give despite pressor use. Statin discontinued secondary to elevated transaminases. Will restart when transaminases returned to normal. 2. Continue amiodarone for A. fib prophylaxis. No need for anticoagulation unless patient is in atrial fibrillation for longer than 24 hours. 3. Wean levo as tolerated. Continue Primacor at 0.1 mcg/kg/min for another 24 hours. 4. Will give half amp calcium chloride today. 5. No Lasix today. 6. Keep Fong catheter for another 24 hours for strict accurate intake and output. 7. Wean O2 as tolerated. Encourage incentive spirometry use 10 times every hour while awake. 8. Will monitor daily labs and x-rays. No blood transfusion today. 9. Pain control with current medication regimen. 10. GI/DVT prophylaxis. 11. Bronchodilators per pulmonology. 12. Patient is possibly a candidate for a LifeVest at discharge. Will defer to cardiology judgment. 13. Diabetic management per primary care service. 14. Patient to remain in the intensive care unit for another 24 hours. 15. More recommendations to follow. Time with Patient: Greater than 30
--- NOTE | 2017-11-21 09:27 | P.PN ---
Subjective Progress Note Date: 11/21/17 Mr. Silva is a 72-year-old white male patient of Dr. Wong, who presented today on 11/16/2017 for elective placement of intra-aortic balloon pump in preparation for three-vessel coronary artery bypass graft surgery and mitral valve repair for severe mitral valve insufficiency and ischemic cardiomyopathy with severely impaired systolic dysfunction. Surgery is scheduled for tomorrow 11/17/[address] Borjas. Patient has been having progressive exertional dyspnea for the last 2 years, and last 3 months patient started experiencing severe limitation of his exercise capacity, becoming quite dyspneic while climbing a flight of stairs. Patient denied any chest pain, palpitations, syncopal episodes. Patient started experiencing bilateral lower extremity edema , and he presented to his PCP for evaluation of his symptoms. Patient has been quite active in sports during his lifetime, in swimming and running. 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 Does not have any chronic pulmonary conditions, has a remote history of smoking, quit 40 years ago , smoked a pack a day for about 5 years. No marijuana use, no EtOH, or recreational drugs. 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 Patient had a heart catheterization on 11/09/2017 which showed calcification of left main coronary artery, with mild to moderate atherosclerotic plaque in the ostial portion, circumflex with a 95% stenosis, complete occlusion of the LAD just off to the origin of the large diagonal branch, and 70% stenosis of the diagonal branch. Diffuse disease in the RCA, with a 70% stenosis at the bifurcation into PDA and PLV, and significant disease in the PDA and PLV. All the vessels were noted to be irregular, ectatic and in places aneurysmal. LVEDP was 31 mm, without significant gradient across the aortic valve. PILAR on 11/10/2017 showed ischemic cardiomyopathy with severe left ventricular systolic dysfunction, akinetic inferior wall and the septum, hypokinetic anterior wall. Moderate pulmonary hypertension and moderate mitral regurgitation. Patient was recommended surgical intervention for his symptoms, and he opted for three- vessel coronary artery bypass grafting and mitral valve repair tomorrow. Bedside spirometry was reviewed and showed FEV1 of 1.35 L or 43% of predicted, FVC of 1.65 L or 38% of predicted, consistent with severe restriction. Preop chest x-ray from 11/10/2017 showed mild cardiomegaly with small to moderate- sized right greater than the left pleural effusions and associated compressive atelectasis. Patient is seen in the intensive care, resting in bed, room air pulse ox is 92-97%, he denies any dyspnea, he is afebrile, intra-aortic balloon pump is in place, via right femoral artery. He is currently on 1:1 IABP frequency, with augmented diastolic pressure of 131 mmHg. Distal pulses are intact, sensory status is intact. Fong catheter is in place, patient is nonoliguric. Radial pulses are intact. Patient is on heparin drip at 12 u/kg/ hr. No other drips. He is on oral Lasix at 40 mg daily. Currently resting in bed, in no acute distress. On 11/18/2017 the patient is being seen for a follow-up. Note that he had a prolonged surgery which involved a 4-vessel bypass surgery and mitral valve repair. The patient arrived to the intensive care unit around 7 PM in the evening. He was on an intra-aortic balloon pump. He was also inotropes. Chest x-ray was reviewed. The patient adequate expansion of both lungs. The patient a mediastinal chest tube in the right and left pleural chest tubes. Output from the chest as was considerably high especially from the mediastinal chest tube. Overnight the patient required a total of 4 units of packed RBCs and 4 units of 4 shows and plasma and 2 units of platelets and he also received DDAVP. He received also IV fluids in the form of crystalloids and colloids. The output from the sun chest gradually improved and earlier this morning it was only putting out 20 mL an hour and currently Dopplers somewhere between 20- 40 mL an hour. As for the right pleural chest tubes output initially was initially low and then picked up and it's up to 60-80 mL an hour. The left pleural chest tube is putting out 50 mL an hour. The patient is currently on norepinephrine infusion at 7 g per KG pigmented minutes. He is also on methadone at 0.3 g per KG pigmented minutes. He is also on vasopressin and dopamine. He is also on intra-aortic balloon pump with one-to-one augmentation. The augmented blood pressure is 91. Attempts to cut down the augmentation through the intra-aortic balloon pump has failed as the patient is pressure urine output. In terms of his respiratory status, the patient is a mechanical ventilator. He is currently on assist control mode of ventilation at the rate of 12 with an FiO2 of 4040% and a PEEP of 5 and FiO2 has been drop down to 40% and tidal volumes of 500. The morning blood gases showed a pH of 7.39 with a pCO2 of 40 and pO2 of 217, and note that this was done and FiO2 of 100%. His current FiO2 is down to 40%. Renal function stable with a creatinine of 0.8. Rest of the electrodes are all within normal limits. Correlation profile is within normal limits. Most recent hemoglobin is at 7.3. The patient was sedated with Diprivan and the patient is currently off Diprivan and when it parameters are being checked. Urine output is in order of 30-40 mL an hour over the past 2 hours. His most recent blood sugar is at 137. On 11/19/2017 and seeing this patient for a follow-up. This patient is status post four-vessel bypass surgery and mitral valve replacement. Is postop day # 2. Note that the patient was extubated yesterday without any major difficulties and currently is on oxygen by nasal cannula 2 L/m. The chest x- ray shows adequate expansion of both lungs. There is some pulmonary vessel congestion. The patient has all of these chest tubes in place. The [place] catheter is also in place. As far as his breathing status, is not having any respiratory difficulties. Sternum stable clean and intact. The chest tube output over the past 12 hours was 20 mL from the mediastinum, to 90 mL from the right pleural and for 90 mL from the left poor. His most recent hemodynamic parameters shows a cardiac output of 4.8 with an index of 2.5. He has elevated intra-aortic balloon pump was a one-to-one augmentation throughout the night and currently is down to 1-2 augmentation and his augmented mean arterial blood pressures around 72. He is producing adequate amount of urine output. As far as pressors, the patient is on a combination of Primacor at 0.2 g, norepinephrine which is ranging between 1 and 6 g, dopamine at 2.5 Pedro grams per KG pigmented, and vasopressin at physiologic dose of 0.02 units per hour. He is also on lactated Ringer at 40 mL an hour and the patient is currently off insulin drip. No significant events overnight. Is afebrile. He is awake and alert. Moving all 4 extremities and he has adequate pulses in 4 extremities. On 11/20/2017, the patient is being seen in follow-up. The patient is still in the intensive care unit postop day #3. He has done very well post extubation. The intra-aortic balloon pump was discontinued. Hemodynamically, he still requiring pressors and currently the patient is on levo fed at around 5 g per KG pigmented. He is on milrinone at 0.2 micrograms per KG and he is also on vasopressin at physiologic dose of 0.03 units an hour. The patient is off dopamine. Overall cardiac index is somewhat between 2.2 and 2.3. PA diastolic pressures around 17. Urine output dropped over the past hour down to 50 mL an hour. The patient was receiving a unit of packed RBC. Output from the chest tube has been 700 mL on the left pleural over the past 24 hours is 700 mL on the left pleural 500 mL on the right pleural and there is no mediastinal chest tube that was pulled out yesterday. The patient is still on insulin drip for blood sugar control. He is awake and alert. He is feeling very weak and lethargic. He answers questions and follows commands. Trying to use incentive spirometer. The surgical wound site is dry clean and intact. Hemoglobin today is at 7.0. Rated count is at 76. Creatinine is stable at 1.2. Overnight the patient went into to establish with rapid ventricular response. The patient was given to loading dose of amiodarone. Currently is on a maintenance and eye doctor maintenance down to 0.5 mg/m. Around 1 AM this morning the patient converted back to normal sinus rhythm. On 11/21/2017, I'm seeing this patient for a follow-up. Is postop day #4. He remains extubated on 2 L of oxygen by nasal cannula. Intra-aortic balloon pump has been discontinued. The patient has the [place] catheter in place. PA pressures are 33/14. The cardiac index is at 2.4. The patient is on milrinone at 0.1. The patient is also on levo fed and the dose varies between 2-50 mics per KG per minute knowing that the patient is a very labile blood pressure. He is having occasional hypotension and subsequent hypertension and based on that the titration of the levo fed is being done. The patient has developed an acute kidney injury. Creatinine is up to 1.8. He also developed an acute liver injury, probably a shock liver due to low flow state. The patient was receiving diuretics yesterday and currently diuretics on hold. He received 2 units of packed RBC yesterday. He also received 5% albumin, 250 mL yesterday. Urine output is no other of 10 mL an hour. He has a pleural chest tube on the right and on the left, the output from the right is 350 over the past 24 hours unless put out 400 mL over the past 24 hours. Overnight, the patient has short runs of paroxysmal atrial fibrillation and current his rhythm is sinus. Amiodarone is at the maintenance of 400 mg by mouth twice a day. The hemoglobin is at 7.7. Chest x-ray shows some mild increase in pulmonary vascular markings. Chest tubes are in good location. There is no evidence of pneumothorax. Limited bibasilar infiltrates seen and small effusions. He is awake. He is alert. Aspirin was kept on 2 baby dose as the patient developed thrombocytopenia. He is still on Plavix. He is on Arixtra for DVT prophylaxis Objective - Vital Signs Vital signs: Vital Signs Temp 97.5 F L 11/21/17 04:00 Pulse 71 11/21/17 09:00 Resp 16 11/21/17 09:00 BP 99/49 11/20/17 12:00 Pulse Ox 99 11/21/17 09:00 Intake & Output 11/20/17 11/21/17 11/21/17 18:59 06:59 18:59 Intake Total 2986.976 4641.511 352.298 Output Total 570 762 155 Balance 1128.890 367.511 197.298 Weight 77.3 kg Intake: IV 483 508 107 CO/CI 110 60 20 Dextrose 5% in Water 100 100 ml @ 618 mls/hr IV .Q10M PRN with Amiodarone 150 mg Rx#:[id number] Lactated Ringers 1,000 ml 250 240 60 @ 20 mls/hr IV .Q24H JANNA Rx#:[id number] Pressure Bags 99 108 27 Sodium Chloride 0.9% 99 24 ml @ 0.02 UNITS/MIN 6 mls /hr IV .[id number] JANNA with Vasopressin 20 unit Rx#: [id number] Intake, IV Titration 665.890 81.511 5.298 Amount Albumin Human 5% 250 ml 250 In Empty Bag 1 bag @ 250 mls/hr IVPB ONCE STA Rx#: [id number] Amiodarone 450 mg In 199.122 Dextrose 5% in Water 250 ml @ 1 MG/MIN 33.33 mls/ hr IV .[id number] JANNA Rx#: [id number] Calcium Chloride 250 mg 50 In Sodium Chloride 0.9% 50 ml @ 200 mls/hr IVPB ONCE STA Rx#:[id number] Insulin Regular 100 unit 18.016 9.612 1.498 In Sodium Chloride 0.9% 100 ml @ Per Protocol IV .Q0M JANNA Rx#:[id number] Milrinone-D5w Pmx 20 mg 64.153 33.63 In Dextrose/Water 1 100ml .bag @ 0.1 MCG/KG/MIN 2. 33 mls/hr IV .Q24H JANNA Rx #:[id number] Norepinephrin 16 mg-0.9% 84.599 38.269 Ns Pmx 16 mg In 250 ml @ Titrate IV .Q0M JANNA Rx#: [id number] Norepinephrine 16 mg In 3.8 Dextrose 5% in Water 250 ml @ Titrate IV .Q0M JANNA Rx#:[id number] Oral 240 540 240 Blood Product 310 Rc Cpda-1 Unit 310 [id number] Output: Chest Tube Drainage 340 452 110 left pleural 195 272 70 right pleural 145 180 40 Drainage 20 0 Left Calf 20 0 Urine 230 290 45 Other: Voiding Method Indwelling Catheter Indwelling Catheter Indwelling Catheter # Bowel Movements 0 ABP, PAP, CO, CI - Last Documented Arterial Blood Pressure 85/41 Pulmonary Artery Pressure 32/14 Cardiac Output 4.6 Cardiac Index 2.4 - Exam GENERAL EXAM: Patient is currently extubated and currently on 2 L of oxygen by nasal cannula. The patient is a right IJ [place] catheter which is in place. HEAD: Normocephalic/atraumatic. The patient is intubated on a mechanical ventilator. EYES: Normal reaction of pupils, equal size. Conjunctiva pink, sclera white. NOSE: Clear with pink turbinates. THROAT: No erythema or exudates. NECK: No masses, no JVD, no thyroid enlargement, no adenopathy. The patient is a right IJ [place] catheter. CHEST: No chest wall deformity. Symmetrical expansion. Breath sounds are equal and symmetrical. Sternum stable clean and intact. All of the chest tubes are in place , the mediastinal chest tube is removed and the right pleural and left pleural chest tube. LUNGS: Equal air entry with no crackles, wheeze, rhonchi or dullness. CVS: Regular rate and rhythm, normal S1 and S2, no gallops, no rubs, systolic murmur at the apex. Adequate pulses in the lower extremities bilaterally ABDOMEN: Soft, nontender. No hepatosplenomegaly, normal bowel sounds, no guarding or rigidity. EXTREMITIES: No clubbing, no edema, no cyanosis, 1+ pulses and upper and lower extremities. MUSCULOSKELETAL: Muscle strength and tone normal. SPINE: No scoliosis or deformity SKIN: No rashes CENTRAL NERVOUS SYSTEM: Awake and alert and following commands and answer questions appropriately.. PSYCHIATRIC: Cannot be assessed - Labs CBC & Chem 7: 11/21/17 04:30 11/21/17 04:30 Labs: Abnormal Lab Results - Last 24 Hours (Table) 11/20/17 11/20/17 11/20/17 Range/Units 04:30 06:00 10:02 WBC (3.8-10.6) k/uL RBC (4.30-5.90) m/uL Hgb (13.0-17.5) gm/dL Hct (39.0-53.0) % RDW (11.5-15.5) % Plt Count (150-450) k/uL Neutrophils # (1.3-7.7) k/uL Lymphocytes # (1.0-4.8) k/uL PT 15.7 H (9.0-12.0) sec INR 1.7 H (<1.2) Carbon Dioxide (22-30) mmol/L BUN (9-20) mg/dL Creatinine (0.66-1.25) mg/dL Glucose (74-99) mg/dL POC Glucose (mg/dL) 107 H (75-99) mg/dL Calcium (8.4-10.2) mg/dL Magnesium (1.6-2.3) mg/dL Total Bilirubin (0.2-1.3) mg/dL AST (17-59) U/L ALT (21-72) U/L Total Protein (6.3-8.2) g/dL Albumin (3.5-5.0) g/dL Crossmatch See Detail 11/20/17 11/20/17 11/20/17 Range/Units 12:08 14:13 16:11 WBC (3.8-10.6) k/uL RBC (4.30-5.90) m/uL Hgb (13.0-17.5) gm/dL Hct (39.0-53.0) % RDW (11.5-15.5) % Plt Count (150-450) k/uL Neutrophils # (1.3-7.7) k/uL Lymphocytes # (1.0-4.8) k/uL PT (9.0-12.0) sec INR (<1.2) Carbon Dioxide (22-30) mmol/L BUN (9-20) mg/dL Creatinine (0.66-1.25) mg/dL Glucose (74-99) mg/dL POC Glucose (mg/dL) 114 H 137 H 137 H (75-99) mg/dL Calcium (8.4-10.2) mg/dL Magnesium (1.6-2.3) mg/dL Total Bilirubin (0.2-1.3) mg/dL AST (17-59) U/L ALT (21-72) U/L Total Protein (6.3-8.2) g/dL Albumin (3.5-5.0) g/dL Crossmatch 11/20/17 11/20/17 11/20/17 Range/Units 17:56 18:00 20:20 WBC (3.8-10.6) k/uL RBC (4.30-5.90) m/uL Hgb (13.0-17.5) gm/dL Hct (39.0-53.0) % RDW (11.5-15.5) % Plt Count (150-450) k/uL Neutrophils # (1.3-7.7) k/uL Lymphocytes # (1.0-4.8) k/uL PT (9.0-12.0) sec INR (<1.2) Carbon Dioxide (22-30) mmol/L BUN (9-20) mg/dL Creatinine (0.66-1.25) mg/dL Glucose (74-99) mg/dL POC Glucose (mg/dL) 143 H 111 H (75-99) mg/dL Calcium (8.4-10.2) mg/dL Magnesium 2.4 H (1.6-2.3) mg/dL Total Bilirubin (0.2-1.3) mg/dL AST (17-59) U/L ALT (21-72) U/L Total Protein (6.3-8.2) g/dL Albumin (3.5-5.0) g/dL Crossmatch 11/21/17 11/21/17 11/21/17 Range/Units 00:33 01:11 01:50 WBC (3.8-10.6) k/uL RBC (4.30-5.90) m/uL Hgb (13.0-17.5) gm/dL Hct (39.0-53.0) % RDW (11.5-15.5) % Plt Count (150-450) k/uL Neutrophils # (1.3-7.7) k/uL Lymphocytes # (1.0-4.8) k/uL PT (9.0-12.0) sec INR (<1.2) Carbon Dioxide 20 L (22-30) mmol/L BUN (9-20) mg/dL Creatinine (0.66-1.25) mg/dL Glucose (74-99) mg/dL POC Glucose (mg/dL) 120 H 122 H (75-99) mg/dL Calcium (8.4-10.2) mg/dL Magnesium (1.6-2.3) mg/dL Total Bilirubin (0.2-1.3) mg/dL AST (17-59) U/L ALT (21-72) U/L Total Protein (6.3-8.2) g/dL Albumin (3.5-5.0) g/dL Crossmatch 11/21/17 11/21/17 11/21/17 Range/Units 02:56 04:30 04:30 WBC 11.5 H (3.8-10.6) k/uL RBC 2.60 L (4.30-5.90) m/uL Hgb 7.7 L (13.0-17.5) gm/dL Hct 23.0 L (39.0-53.0) % RDW 16.6 H (11.5-15.5) % Plt Count 47 L* (150-450) k/uL Neutrophils # 10.2 H (1.3-7.7) k/uL Lymphocytes # 0.5 L (1.0-4.8) k/uL PT (9.0-12.0) sec INR (<1.2) Carbon Dioxide 21 L (22-30) mmol/L BUN 53 H (9-20) mg/dL Creatinine 1.80 H (0.66-1.25) mg/dL Glucose 128 H (74-99) mg/dL POC Glucose (mg/dL) 126 H (75-99) mg/dL Calcium 8.3 L (8.4-10.2) mg/dL Magnesium 2.4 H (1.6-2.3) mg/dL Total Bilirubin 2.1 H (0.2-1.3) mg/dL AST 3436 H (17-59) U/L ALT 975 H (21-72) U/L Total Protein 5.2 L (6.3-8.2) g/dL Albumin 3.0 L (3.5-5.0) g/dL Crossmatch 11/21/17 11/21/17 11/21/17 Range/Units 04:36 06:25 08:15 WBC (3.8-10.6) k/uL RBC (4.30-5.90) m/uL Hgb (13.0-17.5) gm/dL Hct (39.0-53.0) % RDW (11.5-15.5) % Plt Count (150-450) k/uL Neutrophils # (1.3-7.7) k/uL Lymphocytes # (1.0-4.8) k/uL PT (9.0-12.0) sec INR (<1.2) Carbon Dioxide (22-30) mmol/L BUN (9-20) mg/dL Creatinine (0.66-1.25) mg/dL Glucose (74-99) mg/dL POC Glucose (mg/dL) 143 H 129 H 144 H (75-99) mg/dL Calcium (8.4-10.2) mg/dL Magnesium (1.6-2.3) mg/dL Total Bilirubin (0.2-1.3) mg/dL AST (17-59) U/L ALT (21-72) U/L Total Protein (6.3-8.2) g/dL Albumin (3.5-5.0) g/dL Crossmatch Assessment and Plan Plan: Assessment: #1. Symptomatic multivessel coronary artery disease, with total occlusion of the LAD, 70% stenosis of the diagonal artery, 95% stenosis of the circumflex, diffuse disease in the RCA with 70% stenosis at the bifurcation of the PDA and PLV. Patient is scheduled for coronary artery bypass grafting and mitral valve repair on 11/17/2017 On 11/18/2017, the patient is postop day #1. The patient underwent coronary artery bypass surgery and mitral valve repair. The patient had an intra-aortic balloon pump inserted preoperatively and the balloon pump is still active with one-to-one augmentation. The patient is also on a combination of inotropes including vasopressin, norepinephrine, milrinone, and renal dose dopamine. The urine output is adequate and the blood pressure augmented is around 95. The patient is producing adequate amount of urine output. On 11/19/2017, the patient is postop day #2. He has undergone coronary artery bypass surgery with 4 vessels and mitral valve repair. The patient is extubated he is currently on 2 L of oxygen by nasal cannula. Output from the chest tube has dropped considerably although the left pleural is still active. No evidence of any air leaks. Chest x-ray shows adequate expansion of both lungs with small pleural effusions. The patient is oxygenating well. The patient is hemodynamically doing better. Intra-aortic balloon pump is still in place with 1-2 augmentation. Pressors are being titrated and the current combination includes norepinephrine infusion, dopamine infusion, Primacor infusion and vasopressin. Note that the dopamine is at renal dose and there vasopressin is at physiologic dose. Norepinephrine infusion is running between 1 and 6 g per KG pigmented./min On 11/20/2017 the patient is postop day #3. He is looking better. He is off the intra-aortic balloon pump. History requiring pressors. We will given a unit of packed RBC and manages pressors based on his hemodynamic parameters. One concern is a drop in urine output over going to monitor that and this will hopefully improve following the packed RBC transfusion. Continue the milrinone and continue the norepinephrine infusion for now. On 11/21/2017 the patient is postop day #4. He is extubated. He is still having issues with his hemodynamics. He is requiring pressors. There is a labile blood pressure. The patient was diuresed yesterday and currently he is in a low output state with diminished urine output and hypotension and he has also developed an acute kidney injury with acute shock liver type of picture. He is having paroxysmal atrial fibrillation currently on amiodarone maintenance and current rhythm is sinus mechanism. #2. Mitral valve regurgitation, post mitral valve repair #3. Ischemic cardiomyopathy, with severe left ventricular systolic dysfunction , with significantly impaired preoperative physical ejection fraction #4 postoperative bleeding via chest tubes. The mediastinal chest tube was removed and the patient has a pleural chest tubes in place #5. Diabetes mellitus type 2, currently on insulin drip #6. Remote history of nicotine dependence, patient quit 40 years ago, carries 5 -pack-year smoking history #7. Postoperative anemia with a hemoglobin of of 7.0 and the patient will be receiving units of packed RBC. There is an expected outcome of surgery #8. Diabetic retinopathy #9 new onset atrial fibrillation with rapid ventricular response. The patient was loaded a maintained on amiodarone and subsequently converted back to normal sinus rhythm. Plan Pulmonary status is stable however there is concern about his kidney function, liver function and hemodynamics in general. My opinion is that the patient would benefit from volume. His PA diastolic is low. His urine output is low. No signs of any fluid overload at this point in time. I would say he would easily handle more fluids to improve his urine output and renal function. I will discuss this with the surgeon and with cardiology. Hold diuretics. Monitor platelet count. Monitor renal function. Monitor the output from the chest tubes. Keep the chest tubes in place for today. Keep the patient ICU. We'll continue to follow. Monitor liver function tests and renal function tests. This is a critically care evaluation was done more than 30 minutes. Time with Patient: Greater than 30
[2017-11-21] MEDS: ASPIRIN 81 MG PO SCH (09:28)
[2017-11-21] MEDS: CLOPIDOGREL 75 MG TAB PO SCH (09:28)
[2017-11-21 09:50] LABS: INR 1.8 (<1.2); Partial Thromboplastin Time 34.3 sec (22.0-30.0); Prothrombin Time 16.3 sec (9.0-12.0)
[2017-11-21] MEDS: NOREPINEPHRINE 16 MG in DEXTROSE 5% IN WATER 250 ML IV SCH ×2 (10:28)
[2017-11-21 10:29] LABS: Glucose,Whole Blood 128 mg/dL (75-99)
[2017-11-21] MEDS ORDERED: ALBUMIN HUMAN 5% 250 ML IVPB ONE (11:10)
[2017-11-21] MEDS ORDERED: ALBUMIN HUMAN 5% 250 ML in EMPTY BAG 1 BAG IVPB ONE (11:55)
[2017-11-21 12:24] LABS: Glucose,Whole Blood 129 mg/dL (75-99)
[2017-11-21] MEDS: MIDODRINE 5 MG TAB PO SCH ×2 (12:27→17:34)
[2017-11-21] MEDS: MILRINONE-D5W PMX 20 MG in DEXTROSE/WATER 1 100ML.BAG IV SCH (13:15)
[2017-11-21] MEDS: INSULIN REGULAR 100 UNIT in SODIUM CHLORIDE 0.9% 100 ML IV SCH (14:10)
[2017-11-21 14:14] LABS: Glucose,Whole Blood 127 mg/dL (75-99)
--- NOTE | 2017-11-21 14:27 | P.PN ---
Subjective Progress Note Date: 11/21/17 This is a pleasant gentleman patient of Dr. Spann, newly established to the office to evaluate shortness of breath, dyspnea on exertion, underwent cardiac cath and found to have ischemic cardiomyopathy with severe LV dysfunction, triple-vessel disease prior to bypass surgery, admitted for bypass surgery and valve repair. He has underlying history of diabetes mellitus type 2, hyperlipidemia, Cardiac cath performed 11/09/2017 shows left main coronary up was calcified, circumflex 95% stenosis in the ostial portion, LAD totally occluded just of to the origin of the large diagonal branch, diagonal branch from the percent stenosis, 70% stenosis in the PDA and PLV severe left ventricle systolic dysfunction and mitral regurgitation He is currently in ICU being prepped for CABG and mitral valve repair on 2017 and has intra-aortic balloon pump done through the right femoral artery. 11/17: Patient is having open-heart surgery today. 11/18: Patient is status post quadruple coronary artery bypass grafting using the left internal mammary artery to the left anterior descending coronary artery, a reverse greater saphenous vein graft from the aorta to the diagonal coronary artery, reverse greater saphenous vein graft from the aorta to the first obtuse marginal coronary artery, a reverse greater saphenous vein graft from the aorta to the posterior descending coronary artery and mitral valve repair. Patient remains in the intensive care unit intubated and on mechanical ventilation currently on CPAP for weaning parameters. He continues to have intra-aortic balloon pump in place which is plan to keep for 1 more day. He has a right, left and mediastinal chest tubes in place draining serosanguineous fluid. Urine output is 50-60 mL per hour. He is also on vasopressors. Hemoglobin A1c is 6.7. 8: Patient remains in the intensive care unit. He is currently off oxygen and pulse oxing. He continues to have all [address] Balloon pump was removed. Urine output has been adequate. White count is normal. Hemoglobin 7.3, INR 1.5, creatinine 0.93, blood sugars are running between 104 and 127. He has been afebrile. Heart rate running in the 90s. Blood pressure is stable with current vasopressors. Pulse ox is 9700% on room air. Patient denies having any chest pain. No abdominal pain. No nausea. H/4. Patient examined the bedside in the ICU. Currently off oxygen. He is not making enough urine output. Creatinine function has worsened from 0.8-1.2. Hemoglobin 7 this morning status post transfusion 1 unit PRBC. Patient is denies any chest pain, shortness of breath is resting comfortably in the chair. He still continues to have [address] with a AARON drain. Blood sugar between 100-125. 8/5 patient examined bedside in the ICU. Brief episode of atrial fibrillation last night and one dose of IV amiodarone given followed by a maintenance dose Afinitor on 400 mg twice a day. Creatinine increased to 1.8 today. Patient is having minimal urine output with less than 10 mL per hour. Patient may benefit from IV fluids as he has minimal oral intake and has minimal urine output. One bag of 250 mg abdomen given today. Patient received 2 units of PRBCs C yesterday. No bowel movements for the past 3 days. Patient is passing gas. Continue with bowel regimen Objective - Vital Signs Vital signs: Vital Signs Temp 97.5 F L 11/21/17 04:00 Pulse 115 H 11/21/17 14:00 Resp 16 11/21/17 14:00 BP 99/49 11/20/17 12:00 Pulse Ox 100 11/21/17 14:00 Intake & Output 11/20/17 11/21/17 11/21/17 18:59 06:59 18:59 Intake Total 8758.855 0412.511 1142.996 Output Total 570 762 315 Balance 1128.890 367.511 827.996 Weight 77.3 kg Intake: IV 483 508 292 CO/CI 110 60 60 Dextrose 5% in Water 100 100 ml @ 618 mls/hr IV .Q10M PRN with Amiodarone 150 mg Rx#:[id number] Lactated Ringers 1,000 ml 250 240 160 @ 20 mls/hr IV .Q24H JANNA Rx#:[id number] Pressure Bags 99 108 72 Sodium Chloride 0.9% 99 24 ml @ 0.02 UNITS/MIN 6 mls /hr IV .[id number] JANNA with Vasopressin 20 unit Rx#: [id number] Intake, IV Titration 665.890 81.511 610.996 Amount Albumin Human 5% 250 ml 500 In Empty Bag 1 bag @ 250 mls/hr IVPB ONCE ONE Rx#: [id number] Albumin Human 5% 250 ml 250 In Empty Bag 1 bag @ 250 mls/hr IVPB ONCE STA Rx#: [id number] Amiodarone 450 mg In 199.122 Dextrose 5% in Water 250 ml @ 1 MG/MIN 33.33 mls/ hr IV .Q7H31M [facility] Rx#: [id number] Calcium Chloride 250 mg 50 In Sodium Chloride 0.9% 50 ml @ 200 mls/hr IVPB ONCE STA Rx#:[id number] Calcium Chloride 500 mg 50 In Sodium Chloride 0.9% 50 ml @ 200 mls/hr IVPB ONCE ONE Rx#:[id number] Insulin Regular 100 unit 18.016 9.612 8.462 In Sodium Chloride 0.9% 100 ml @ Per Protocol IV .Q0M [facility] Rx#:[id number] Milrinone-D5w Pmx 20 mg 64.153 33.63 37.746 In Dextrose/Water 1 100ml .bag @ 0.1 MCG/KG/MIN 2. 33 mls/hr IV .Q24H [facility] Rx #:[id number] Norepinephrin 16 mg-0.9% 84.599 38.269 Ns Pmx 16 mg In 250 ml @ Titrate IV .Q0M [facility] Rx#: [id number] Norepinephrine 16 mg In 14.788 Dextrose 5% in Water 250 ml @ Titrate IV .Q0M [facility] Rx#:[id number] Oral 240 540 240 Blood Product 310 Rc Cpda-1 Unit 310 [id number] Output: Chest Tube Drainage 340 452 220 left pleural 195 272 130 right pleural 145 180 90 Drainage 20 0 Left Calf 20 0 Urine 230 290 95 Other: Voiding Method Indwelling Catheter Indwelling Catheter Indwelling Catheter # Bowel Movements 0 ABP, PAP, CO, CI - Last Documented Arterial Blood Pressure 121/63 Pulmonary Artery Pressure 51/26 Cardiac Output 4.3 Cardiac Index 2.2 - Exam - Exam General appearance: average body habitus, cooperative, no acute distress - EENT Eyes: anicteric sclerae, EOMI, PERRLA, dentition normal, normal appearance no vision in the left eye blurring of the cornea with spelling ENT: NA/AT, normal oropharynx, extubated - Respiratory Respiratory: bilateral: CTA, negative: diminished, dullness, rales, rhonchi, wheezing, continues to have right pleural, left pleural chest tubes in place. - Cardiovascular Rhythm: Regularly irregular Heart sounds: normal: S1, S2 Abnormal Heart Sounds: no systolic murmur, no diastolic murmur, no rub, no S3 Gallop, no S4 Gallop, no click, no other - Gastrointestinal General gastrointestinal: normal bowel sounds, soft, Fong draining clear marta urine - Integumentary Integumentary: normal, normal turgor - Neurologic Neurologic: Awake, focal deficits (None) - Musculoskeletal Musculoskeletal: gait not assessed, strength equal bilaterally - Labs CBC & Chem 7: 11/21/17 04:30 11/21/17 04:30 Labs: Abnormal Lab Results - Last 24 Hours (Table) 11/20/17 11/20/17 11/20/17 Range/Units 04:30 06:00 16:11 WBC (3.8-10.6) k/uL RBC (4.30-5.90) m/uL Hgb (13.0-17.5) gm/dL Hct (39.0-53.0) % RDW (11.5-15.5) % Plt Count (150-450) k/uL Neutrophils # (1.3-7.7) k/uL Lymphocytes # (1.0-4.8) k/uL PT 15.7 H (9.0-12.0) sec INR 1.7 H (<1.2) APTT (22.0-30.0) sec Carbon Dioxide (22-30) mmol/L BUN (9-20) mg/dL Creatinine (0.66-1.25) mg/dL Glucose (74-99) mg/dL POC Glucose (mg/dL) 137 H (75-99) mg/dL Calcium (8.4-10.2) mg/dL Magnesium (1.6-2.3) mg/dL Total Bilirubin (0.2-1.3) mg/dL AST (17-59) U/L ALT (21-72) U/L Total Protein (6.3-8.2) g/dL Albumin (3.5-5.0) g/dL Crossmatch See Detail 11/20/17 11/20/17 11/20/17 Range/Units 17:56 18:00 20:20 WBC (3.8-10.6) k/uL RBC (4.30-5.90) m/uL Hgb (13.0-17.5) gm/dL Hct (39.0-53.0) % RDW (11.5-15.5) % Plt Count (150-450) k/uL Neutrophils # (1.3-7.7) k/uL Lymphocytes # (1.0-4.8) k/uL PT (9.0-12.0) sec INR (<1.2) APTT (22.0-30.0) sec Carbon Dioxide (22-30) mmol/L BUN (9-20) mg/dL Creatinine (0.66-1.25) mg/dL Glucose (74-99) mg/dL POC Glucose (mg/dL) 143 H 111 H (75-99) mg/dL Calcium (8.4-10.2) mg/dL Magnesium 2.4 H (1.6-2.3) mg/dL Total Bilirubin (0.2-1.3) mg/dL AST (17-59) U/L ALT (21-72) U/L Total Protein (6.3-8.2) g/dL Albumin (3.5-5.0) g/dL Crossmatch 11/21/17 11/21/17 11/21/17 Range/Units 00:33 01:11 01:50 WBC (3.8-10.6) k/uL RBC (4.30-5.90) m/uL Hgb (13.0-17.5) gm/dL Hct (39.0-53.0) % RDW (11.5-15.5) % Plt Count (150-450) k/uL Neutrophils # (1.3-7.7) k/uL Lymphocytes # (1.0-4.8) k/uL PT (9.0-12.0) sec INR (<1.2) APTT (22.0-30.0) sec Carbon Dioxide 20 L (22-30) mmol/L BUN (9-20) mg/dL Creatinine (0.66-1.25) mg/dL Glucose (74-99) mg/dL POC Glucose (mg/dL) 120 H 122 H (75-99) mg/dL Calcium (8.4-10.2) mg/dL Magnesium (1.6-2.3) mg/dL Total Bilirubin (0.2-1.3) mg/dL AST (17-59) U/L ALT (21-72) U/L Total Protein (6.3-8.2) g/dL Albumin (3.5-5.0) g/dL Crossmatch 11/21/17 11/21/17 11/21/17 Range/Units 02:56 04:30 04:30 WBC 11.5 H (3.8-10.6) k/uL RBC 2.60 L (4.30-5.90) m/uL Hgb 7.7 L (13.0-17.5) gm/dL Hct 23.0 L (39.0-53.0) % RDW 16.6 H (11.5-15.5) % Plt Count 47 L* (150-450) k/uL Neutrophils # 10.2 H (1.3-7.7) k/uL Lymphocytes # 0.5 L (1.0-4.8) k/uL PT (9.0-12.0) sec INR (<1.2) APTT (22.0-30.0) sec Carbon Dioxide 21 L (22-30) mmol/L BUN 53 H (9-20) mg/dL Creatinine 1.80 H (0.66-1.25) mg/dL Glucose 128 H (74-99) mg/dL POC Glucose (mg/dL) 126 H (75-99) mg/dL Calcium 8.3 L (8.4-10.2) mg/dL Magnesium 2.4 H (1.6-2.3) mg/dL Total Bilirubin 2.1 H (0.2-1.3) mg/dL AST 3436 H (17-59) U/L ALT 975 H (21-72) U/L Total Protein 5.2 L (6.3-8.2) g/dL Albumin 3.0 L (3.5-5.0) g/dL Crossmatch 11/21/17 11/21/17 11/21/17 Range/Units 04:36 06:25 08:15 WBC (3.8-10.6) k/uL RBC (4.30-5.90) m/uL Hgb (13.0-17.5) gm/dL Hct (39.0-53.0) % RDW (11.5-15.5) % Plt Count (150-450) k/uL Neutrophils # (1.3-7.7) k/uL Lymphocytes # (1.0-4.8) k/uL PT (9.0-12.0) sec INR (<1.2) APTT (22.0-30.0) sec Carbon Dioxide (22-30) mmol/L BUN (9-20) mg/dL Creatinine (0.66-1.25) mg/dL Glucose (74-99) mg/dL POC Glucose (mg/dL) 143 H 129 H 144 H (75-99) mg/dL Calcium (8.4-10.2) mg/dL Magnesium (1.6-2.3) mg/dL Total Bilirubin (0.2-1.3) mg/dL AST (17-59) U/L ALT (21-72) U/L Total Protein (6.3-8.2) g/dL Albumin (3.5-5.0) g/dL Crossmatch 11/21/17 11/21/17 11/21/17 Range/Units 09:30 10:25 12:22 WBC (3.8-10.6) k/uL RBC (4.30-5.90) m/uL Hgb (13.0-17.5) gm/dL Hct (39.0-53.0) % RDW (11.5-15.5) % Plt Count (150-450) k/uL Neutrophils # (1.3-7.7) k/uL Lymphocytes # (1.0-4.8) k/uL PT 16.3 H (9.0-12.0) sec INR 1.8 H (<1.2) APTT 34.3 H (22.0-30.0) sec Carbon Dioxide (22-30) mmol/L BUN (9-20) mg/dL Creatinine (0.66-1.25) mg/dL Glucose (74-99) mg/dL POC Glucose (mg/dL) 128 H 129 H (75-99) mg/dL Calcium (8.4-10.2) mg/dL Magnesium (1.6-2.3) mg/dL Total Bilirubin (0.2-1.3) mg/dL AST (17-59) U/L ALT (21-72) U/L Total Protein (6.3-8.2) g/dL Albumin (3.5-5.0) g/dL Crossmatch 11/21/17 Range/Units 14:12 WBC (3.8-10.6) k/uL RBC (4.30-5.90) m/uL Hgb (13.0-17.5) gm/dL Hct (39.0-53.0) % RDW (11.5-15.5) % Plt Count (150-450) k/uL Neutrophils # (1.3-7.7) k/uL Lymphocytes # (1.0-4.8) k/uL PT (9.0-12.0) sec INR (<1.2) APTT (22.0-30.0) sec Carbon Dioxide (22-30) mmol/L BUN (9-20) mg/dL Creatinine (0.66-1.25) mg/dL Glucose (74-99) mg/dL POC Glucose (mg/dL) 127 H (75-99) mg/dL Calcium (8.4-10.2) mg/dL Magnesium (1.6-2.3) mg/dL Total Bilirubin (0.2-1.3) mg/dL AST (17-59) U/L ALT (21-72) U/L Total Protein (6.3-8.2) g/dL Albumin (3.5-5.0) g/dL Crossmatch Assessment and Plan Plan: (1) Coronary artery disease and moderate mitral valve regurgitation Triple vessel disease noted on cardiac cath agent status post CABG and mitral valve repair on all 11/17/2017. Continue on aspirin, Lipitor, metoprolol, Plavix, and aspirin. Hemoglobin A1c 6.7, insulin drip therapy. ICU track walker Dr. Fajardo consult. 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, also accompanied by mitral valvular regurgitation, continue on Lasix, maximize medical treatment, anticipate CBG with possibility of mitral valve repair in the morning 11/17/2017 (4) Hyperlipidemia Patient currently is on statins, and will be titrated to goal of 70 currently on Lipitor 40 mg daily (5) On esomeprazole prophylaxis (6) DVT prophylaxis (7) Steal syndrome, subclavian Carotid Dopplers 11/10/2017 shows no carotid stenosis however there is to and fro flow within the right vertebral artery could reflect manifestation of subclavian steal physiology prior to with continuous flow reversal. Currently asymptomatic continue to monitor (8) Pulmonary hypertension PILAR on 11/10/2017, moderate pulmonary hypertension also shows intact atrial septum with no evidence of [id number] shunt physiology, unable to locate pressures for right ventricular systolic. (9) his urine output secondary to prerenal etiology. One dose of IV Lasix given urinalysis ordered for evaluation.avoid diuretics. Patient may benefit from IV fluids. Further decision will be made by surgeon. Discharge plan: To be determined
[2017-11-21 16:44] LABS: Glucose,Whole Blood 122 mg/dL (75-99)
[2017-11-21 17:28] LABS: Glucose,Whole Blood 112 mg/dL (75-99)
[2017-11-21 20:14] LABS: Glucose,Whole Blood 130 mg/dL (75-99)
[2017-11-21] MEDS: SENNOSIDES-DOCUSATE SODIUM 1 EACH TAB PO SCH (20:15)
[2017-11-21] MEDS ORDERED: ATORVASTATIN 40 MG TAB PO SCH (21:00)
[2017-11-21 22:10] LABS: Glucose,Whole Blood 139 mg/dL (75-99)
[2017-11-21 23:56] LABS: Glucose,Whole Blood 145 mg/dL (75-99)
[2017-11-22] MEDS: HYDROcodone/APAP 5-325MG 1 EACH TAB PO PRN ×2 (00:13→19:09)
[2017-11-22] MEDS: DEXTROSE 5% IN WATER 100 ML with AMIODARONE 150 MG IV PRN ×2 (00:51→23:25)
[2017-11-22 02:02] LABS: Glucose,Whole Blood 155 mg/dL (75-99)
[2017-11-22 04:17] LABS: Anisocytosis Slight; HGB 7.4 gm/dL (13.0-17.5); MCH 27.3 pg (25.0-35.0); MCV 88.1 fL (80.0-100.0); Mean Platelet Volume 11.7; RBC 2.72 m/uL (4.30-5.90); RDW 16.5 % (11.5-15.5); WBC 8.6 k/uL (3.8-10.6)
[2017-11-22 04:18] LABS: Glucose,Whole Blood 135 mg/dL (75-99); Platelet Count 27 k/uL (150-450)
[2017-11-22 04:32] LABS: Ionized Calcium 4.7 mg/dL (4.5-5.3)
[2017-11-22 04:42] LABS: Albumin 3.1 g/dL (3.5-5.0); Magnesium 2.5 mg/dL (1.6-2.3); Phosphorus 5.1 mg/dL (2.5-4.5); Total Bilirubin 2.5 mg/dL (0.2-1.3); Total Protein 5.4 g/dL (6.3-8.2)
[2017-11-22 05:18] LABS: Lymphocytes # (M) 0.77 k/uL (1.0-4.8); Monocytes # (M) 0.86 k/uL (0-1.0); Neutrophils # (M) 6.97 k/uL (1.3-7.7); Neutrophils % (M) 81 %; Nucleated Red Blood Cells 0 /100 WBC (0-0); Total Cells Counted 100
[2017-11-22 06:25] LABS: Glucose,Whole Blood 123 mg/dL (75-99)
[2017-11-22] MEDS: IPRATROPIUM-ALBUTEROL 3 ML NEB INHALATION SCH ×4 (07:23→19:45)
[2017-11-22] MEDS ORDERED: CALCIUM CHLORIDE 500 MG in SODIUM CHLORIDE 0.9% 50 ML IVPB ONE (07:33)
[2017-11-22] MEDS: FERROUS SULFATE 325 MG TAB PO SCH ×2 (08:25→17:35)
[2017-11-22] MEDS: ASCORBIC ACID 500 MG TAB PO SCH ×2 (08:25→17:35)
[2017-11-22] MEDS: PANTOPRAZOLE 40 MG TABLET PO SCH (08:25)
[2017-11-22] MEDS: AMIODARONE 200 MG TAB PO SCH ×2 (08:25→18:22)
[2017-11-22] MEDS: ASPIRIN 81 MG PO SCH (08:25)
[2017-11-22] MEDS: CLOPIDOGREL 75 MG TAB PO SCH (08:25)
[2017-11-22] MEDS: METOPROLOL TARTRATE 12.5 MG TAB PO SCH ×2 (08:26→18:22)
[2017-11-22] MEDS: FONDAPARINUX 2.5 MG/0.5 ML SYRINGE SQ SCH (08:26)
--- NOTE | 2017-11-22 08:32 | CONS ---
CONSULTATION This patient's medical records, vital signs, and the lab tests over the last 24 hours reviewed. This patient is status post coronary artery bypass surgery with a mitral valve repair. It is a postop day 4. The patient remains without any significant shortness of breath, orthopnea or PND. The patient is on Primacor and Levophed at present to maintain his blood pressure. The patient's hemodynamics Jefferson-Wendie catheter shows right atrial pressure was 15 and the pulmonary artery diastolic pressure is 16-18 mmHg. Chest x-ray does not show any significant congestive cardiac failure. Patient has received 2 units of packed cells yesterday and hemoglobin is 7.1. The patient's blood pressure at present is 99/49 mmHg, pulse is 70, temp is afebrile. HEENT examination is negative. Neck is supple. Jugular venous pressure is elevated. First and second heart sounds are normal. Lungs reveal bilateral diminished air entry at the bases. Abdomen is soft. Liver is palpable about 2 fingerbreadths below the right subcostal margin. The patient's creatinine is increased to 1.8. The hemoglobin is 7.7. The patient's liver enzymes have increased as compared to yesterday. FINAL IMPRESSION: This patient is status post coronary artery bypass surgery, mitral valve repair. Condition remains guarded. The patient requires supports without inotropic agents to maintain his blood pressure and urine output is borderline. Patient is developing acute on chronic renal failure and creatinine is increased to 1.8. The patient's right atrial pressure and PA diastolic pressure is 17 mmHg and it is not suggestive that the patient is significantly hypovolemic. The patient is currently getting albumin infusion to replace the volume. I would recommend to continue that. There is no significant improvement in urine output. We should consider giving the patient diuretic. The liver enzymes rise could be secondary to congested liver. We will repeat the echo and Doppler study tomorrow to assess the left ventricular systolic function as well as mitral regurgitation. MMODL / IJN: [id number] /
--- NOTE | 2017-11-22 08:38 | P.PN ---
Subjective Progress Note Date: 11/22/17 Principal diagnosis: Triple-vessel coronary artery disease. Severe ischemic cardiomyopathy. Moderate mitral valve regurgitation. Mild tricuspid valve regurgitation. Diabetes mellitus with preoperative hemoglobin A1c 6.7%. Hyperlipidemia. Moderate to severe restrictive lung disease with preoperative FEV1 43% of predicted. Evidence of diffuse calcific coronary artery disease. 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 Previous tobacco dependence. POD #6 placement of preoperative intra-aortic balloon pump POD #5 quadruple coronary artery bypass grafting using the left internal mammary artery to the left anterior descending artery, reverse saphenous vein graft from the aorta to the diagonal artery, reverse saphenous vein graft from the aorta to the first obtuse marginal artery, reverse saphenous vein graft from the aorta to the posterior descending artery. Mitral valve repair using a complete ring annuloplasty with a 30 mm Kapoor IMR ring. Exclusion of the left atrial appendage using a 35 mm Atriclip. Intraoperative transesophageal echocardiogram and epi-aortic scanning. Intraoperative graft flow measurements using the [id number] system. Post operative normocytic, normochromic anemia, an expected outcome of surgery. Postoperative thrombocytopenia, an expected outcome of surgery. Postoperative atrial fibrillation, an expected outcome of surgery. Postoperative elevated transaminases, an unexpected outcome of surgery, likely secondary to low flow state post surgery. Postoperative acute kidney injury, an unexpected outcome of surgery, likely secondary to low flow state post surgery. Patient is currently sitting up in a recliner in no acute distress. States pain is controlled on current medication regimen. Denies shortness of breath. No new complaints. Currently is still on Primacor, and requiring levo for blood pressure support. He had another episode of A. fib last night and received a fourth bolus of IV amiodarone, remains on oral amiodarone. His platelet count dropped even further this morning, kidney function is worsening, liver function has improved. Echo just completed at the bedside. Objective - Vital Signs Vital signs: Vital Signs Temp 97.2 F L 11/21/17 16:00 Pulse 77 11/22/17 07:36 Resp 20 11/22/17 07:00 BP 99/49 11/20/17 12:00 Pulse Ox 100 11/22/17 07:00 Intake & Output 11/21/17 11/22/17 11/22/17 18:59 06:59 18:59 Intake Total 1515.693 801.754 31.3 Output Total 540 590 82 Balance 975.693 211.754 -50.7 Weight 77.8 kg Intake: IV 410 544.3 31.3 CO/CI 80 180 Lactated Ringers 1,000 ml 240 240 20 @ 20 mls/hr IV .Q24H [facility] Rx#:[id number] Pressure Bags 90 99 9 Primacor 0.1 mcg/kg/min 25.3 2.3 Intake, IV Titration 625.693 57.454 Amount Albumin Human 5% 250 ml 500 In Empty Bag 1 bag @ 250 mls/hr IVPB ONCE ONE Rx#: [id number] Calcium Chloride 500 mg 50 In Sodium Chloride 0.9% 50 ml @ 200 mls/hr IVPB ONCE ONE Rx#:[id number] Insulin Regular 100 unit 11.845 9.616 In Sodium Chloride 0.9% 100 ml @ Per Protocol IV .Q0M [facility] Rx#:[id number] Milrinone-D5w Pmx 20 mg 37.746 In Dextrose/Water 1 100ml .bag @ 0.1 MCG/KG/MIN 2. 33 mls/hr IV .Q24H [facility] Rx #:[id number] Norepinephrine 16 mg In 26.102 47.838 Dextrose 5% in Water 250 ml @ Titrate IV .Q0M [facility] Rx#:[id number] Oral 480 200 Output: Chest Tube Drainage 370 390 60 left pleural 230 120 20 right pleural 140 270 40 Drainage 0 25 10 Left Calf 0 25 10 Urine 170 175 12 Other: Voiding Method Indwelling Catheter Indwelling Catheter ABP, PAP, CO, CI - Last Documented Arterial Blood Pressure 116/47 Pulmonary Artery Pressure 38/11 Cardiac Output 5.7 Cardiac Index 2.9 - Constitutional General appearance: Present: cooperative, no acute distress - Respiratory Details: Lungs sounds diminished bilaterally with fine crackles in the bases, left greater than right. Respirations even, nonlabored. Currently on 2 L nasal cannula with oxygen saturation 98%. Able to achieve 1000 mL on his incentive spirometry. Left pleural chest tube to continuous wall suction, 80 mL serosanguineous drainage overnight, 350 mL in 24 hours. Right pleural chest tube to continuous wall suction, 220 mL serosanguineous drainage overnight, 400 mL in 24 hours. No air leaks present. - Cardiovascular Details: S1, S2 present. Regular rate and rhythm, sinus rhythm on monitor, patient does have occasional short bursts of A. fib RVR but converts quickly. Sternum stable. A/V epicardial pacemaker wires present, grounded. Palpable peripheral pulses bilaterally. Bilateral thigh, scrotal edema present. Right internal jugular [place]/Cordis, right radial arterial line present. Last CO/CI 5.7/2.9 on levo and Primacor. Levo being weaned as tolerated, lift pressure very labile with levo dose anywhere from 2-14 g/kg. Heart hugger in place with patient demonstrating appropriate use. Antiembolism stockings, SCDs present. - Gastrointestinal Gastrointestinal Comment(s): Abdomen soft, nontender, nondistended. Active bowel sounds present 4 quadrants. Tolerating clear liquids. Positive flatus, negative bowel movement. - Genitourinary Genitourinary Comment(s): Fong present draining clear, yellow urine. Urine output 8-25 mL/h overnight, mostly around 10 mL/h. - Integumentary Integumentary Comment(s): Skin warm and dry with evidence of good perfusion. Sternal incision well approximated and covered with dry intact dressing. Left lower extremity EVH site well approximated, AARON drain present with no drainage overnight. - Neurologic Neurologic: Present: CNII-XII intact - Musculoskeletal Musculoskeletal: Present: generalized weakness, strength equal bilaterally - Psychiatric Psychiatric: Present: A&O x's 3, appropriate affect - Allied health notes Allied health notes reviewed: nursing - Labs CBC & Chem 7: 11/22/17 04:08 11/22/17 04:08 Labs: Abnormal Lab Results - Last 24 Hours (Table) 11/21/17 11/21/17 11/21/17 Range/Units 09:30 10:25 12:22 RBC (4.30-5.90) m/uL Hgb (13.0-17.5) gm/dL Hct (39.0-53.0) % RDW (11.5-15.5) % Plt Count (150-450) k/uL Lymphocytes # (Manual) (1.0-4.8) k/uL PT 16.3 H (9.0-12.0) sec INR 1.8 H (<1.2) APTT 34.3 H (22.0-30.0) sec Carbon Dioxide (22-30) mmol/L BUN (9-20) mg/dL Creatinine (0.66-1.25) mg/dL Glucose (74-99) mg/dL POC Glucose (mg/dL) 128 H 129 H (75-99) mg/dL Calcium (8.4-10.2) mg/dL Phosphorus (2.5-4.5) mg/dL Magnesium (1.6-2.3) mg/dL Total Bilirubin (0.2-1.3) mg/dL AST (17-59) U/L ALT (21-72) U/L Total Protein (6.3-8.2) g/dL Albumin (3.5-5.0) g/dL 11/21/17 11/21/17 11/21/17 Range/Units 14:12 16:43 17:26 RBC (4.30-5.90) m/uL Hgb (13.0-17.5) gm/dL Hct (39.0-53.0) % RDW (11.5-15.5) % Plt Count (150-450) k/uL Lymphocytes # (Manual) (1.0-4.8) k/uL PT (9.0-12.0) sec INR (<1.2) APTT (22.0-30.0) sec Carbon Dioxide (22-30) mmol/L BUN (9-20) mg/dL Creatinine (0.66-1.25) mg/dL Glucose (74-99) mg/dL POC Glucose (mg/dL) 127 H 122 H 112 H (75-99) mg/dL Calcium (8.4-10.2) mg/dL Phosphorus (2.5-4.5) mg/dL Magnesium (1.6-2.3) mg/dL Total Bilirubin (0.2-1.3) mg/dL AST (17-59) U/L ALT (21-72) U/L Total Protein (6.3-8.2) g/dL Albumin (3.5-5.0) g/dL 11/21/17 11/21/17 11/21/17 Range/Units 20:12 22:07 23:54 RBC (4.30-5.90) m/uL Hgb (13.0-17.5) gm/dL Hct (39.0-53.0) % RDW (11.5-15.5) % Plt Count (150-450) k/uL Lymphocytes # (Manual) (1.0-4.8) k/uL PT (9.0-12.0) sec INR (<1.2) APTT (22.0-30.0) sec Carbon Dioxide (22-30) mmol/L BUN (9-20) mg/dL Creatinine (0.66-1.25) mg/dL Glucose (74-99) mg/dL POC Glucose (mg/dL) 130 H 139 H 145 H (75-99) mg/dL Calcium (8.4-10.2) mg/dL Phosphorus (2.5-4.5) mg/dL Magnesium (1.6-2.3) mg/dL Total Bilirubin (0.2-1.3) mg/dL AST (17-59) U/L ALT (21-72) U/L Total Protein (6.3-8.2) g/dL Albumin (3.5-5.0) g/dL 11/22/17 11/22/17 11/22/17 Range/Units 01:58 04:08 04:08 RBC 2.72 L (4.30-5.90) m/uL Hgb 7.4 L (13.0-17.5) gm/dL Hct 24.0 L (39.0-53.0) % RDW 16.5 H (11.5-15.5) % Plt Count 27 L* (150-450) k/uL Lymphocytes # (Manual) 0.77 L (1.0-4.8) k/uL PT (9.0-12.0) sec INR (<1.2) APTT (22.0-30.0) sec Carbon Dioxide 21 L (22-30) mmol/L BUN 66 H (9-20) mg/dL Creatinine 2.22 H (0.66-1.25) mg/dL Glucose 118 H (74-99) mg/dL POC Glucose (mg/dL) 155 H (75-99) mg/dL Calcium 8.0 L (8.4-10.2) mg/dL Phosphorus 5.1 H (2.5-4.5) mg/dL Magnesium 2.5 H (1.6-2.3) mg/dL Total Bilirubin 2.5 H (0.2-1.3) mg/dL AST 2202 H (17-59) U/L ALT 751 H (21-72) U/L Total Protein 5.4 L (6.3-8.2) g/dL Albumin 3.1 L (3.5-5.0) g/dL 18 11/22/17 Range/Units 04:08 06:18 RBC (4.30-5.90) m/uL Hgb (13.0-17.5) gm/dL Hct (39.0-53.0) % RDW (11.5-15.5) % Plt Count (150-450) k/uL Lymphocytes # (Manual) (1.0-4.8) k/uL PT (9.0-12.0) sec INR (<1.2) APTT (22.0-30.0) sec Carbon Dioxide (22-30) mmol/L BUN (9-20) mg/dL Creatinine (0.66-1.25) mg/dL Glucose (74-99) mg/dL POC Glucose (mg/dL) 135 H 123 H (75-99) mg/dL Calcium (8.4-10.2) mg/dL Phosphorus (2.5-4.5) mg/dL Magnesium (1.6-2.3) mg/dL Total Bilirubin (0.2-1.3) mg/dL AST (17-59) U/L ALT (21-72) U/L Total Protein (6.3-8.2) g/dL Albumin (3.5-5.0) g/dL - Imaging and Cardiology Chest x-ray: image reviewed Assessment and Plan (1) Congestive heart failure with cardiomyopathy Current Visit: Yes Status: Chronic Code(s): I50.9 - HEART FAILURE, UNSPECIFIED; I42.9 - CARDIOMYOPATHY, UNSPECIFIED SNOMED Code(s): 64439174 (2) Ischemic cardiomyopathy Current Visit: Yes Status: Chronic Code(s): I25.5 - ISCHEMIC CARDIOMYOPATHY SNOMED Code(s): 870969825 (3) Coronary artery disease Current Visit: Yes Status: Chronic Code(s): I25.10 - ATHSCL HEART DISEASE OF [place] CORONARY ARTERY W/O ANG PCTRS SNOMED Code(s): 32816435 (4) Diabetes mellitus Current Visit: Yes Status: Chronic Code(s): E11.9 - TYPE 2 DIABETES MELLITUS WITHOUT COMPLICATIONS SNOMED Code(s): 83435185 (5) Hyperlipidemia Current Visit: Yes Status: Chronic Code(s): E78.5 - HYPERLIPIDEMIA, UNSPECIFIED SNOMED Code(s): 57487981 (6) Mitral regurgitation Current Visit: Yes Status: Chronic Code(s): I34.0 - NONRHEUMATIC MITRAL ( VALVE) INSUFFICIENCY SNOMED Code(s): 27789927 (7) History of myocardial infarction Current Visit: No Status: Resolved Code(s): I25.2 - OLD MYOCARDIAL INFARCTION SNOMED Code(s): 301941592 (8) Tobacco dependence in remission Current Visit: No Status: Resolved Code(s): F17.201 - NICOTINE DEPENDENCE, UNSPECIFIED, IN REMISSION SNOMED Code(s): 375454858 Plan: 1. Hold low-dose aspirin, Plavix, and Arixtra. Will obtain urgent hematology consult related to significant thrombocytopenia. Monitor patient for bleeding. 2. Continue beta michelle. Will increase beta michelle when able. RN instructed to give despite pressor use. 3. Statin discontinued secondary to elevated transaminases. Will restart when transaminases return to normal. 4. Continue amiodarone for A. fib prophylaxis. 5. Wean levo as tolerated. Continue Primacor at 0.1 mcg/kg/min. 6. Will give half amp calcium chloride today. 7. No Lasix. Nephrology consulted for acute kidney injury. Midodrin added yesterday and increased today. 8. Keep Fong catheter for strict accurate intake and output. 9. Wean O2 as tolerated. Encourage incentive spirometry use 10 times every hour while awake. 10. Will monitor daily labs and x-rays. HIT panel sent. 11. Pain control with current medication regimen. Will add Tylenol so patient doesn't have to take narcotics. 12. GI/DVT prophylaxis. 13. PICC line to be placed today. Will discontinue [place]/Cordis once PICC line obtained. 14. Bronchodilators per pulmonology. 15. Patient is possibly a candidate for a LifeVest at discharge. Will defer to cardiology judgment. 16. Diabetic management per primary care service. 17. Patient to remain in the intensive care unit. 18. More recommendations to follow. Time with Patient: Greater than 30
[2017-11-22] MEDS ORDERED: ACETAMINOPHEN TAB 325 MG TAB PO PRN (08:40)
--- NOTE | 2017-11-22 08:52 | XR ---
EXAMINATION TYPE: XR chest 1V portable DATE OF EXAM: 11/22/2017 COMPARISON: 11/21/2017 HISTORY: Status post cardiac surgery. Follow-up exam. TECHNIQUE: Single frontal view of the chest is obtained. FINDINGS: Again the previously seen left apical pneumothorax is no longer visualized. Bilateral thor acostomy tubes are similar in position to the prior. Right-sided internal jugular [place] catheter, cardiac valvular linear replacement, closure device, mediastinal clips, and median sternotomy wires as well as epicardial pacer leads are similar to the prior. There remains a trace right pleural effus ion blunting the right costophrenic angle and scattered bibasilar linear atelectasis. No overt pulmon josue vascular congestion. Mild generalized osseous demineralization is seen. Cardiomegaly persists. IMPRESSION: Stable lines and tubes. No residual pneumothorax. Scattered atelectasis with no new foca l consolidation.
--- NOTE | 2017-11-22 11:14 | ECHOF ---
Referral Reason:post open heart MEASUREMENTS -------- HEIGHT: 177.8 cm WEIGHT: 77.6 kg BP: 120/45 RVIDd: 3.7 cm (< 3.3) IVSd: 1.5 cm (0.6 - 1.1) LVIDd: 3.3 cm (3.9 - 5.3) LVPWd: 1.6 cm (0.6 - 1.1) IVSs: 1.9 cm LVIDs: 2.9 cm LVPWs: 2.2 cm LA Diam: 3.9 cm (2.7 - 3.8) Ao Diam: 3.4 cm (2.0 - 3.7) AV Cusp: 2.5 cm (1.5 - 2.6) MV EXCURSION: 15.618 mm (> 18.000) MV EF SLOPE: 57 mm/s (70 - 150) EPSS: 1.4 cm RAP: 5.00 mmHg RVSP: 37.58 mmHg FINDINGS -------- Sinus rhythm. This was a technically adequate study. The left ventricular size is normal. There is moderate concentric left ventricular hypertrophy. O verall left ventricular systolic function is moderate-severely impaired with, an EF between 30 - 35 % . Basal inferoseptal LV wall motion is hypokinetic. Mid inferoseptal LV wall motion is hypokinet ic. Apical septum LV wall motion is hypokinetic. The right ventricle is mild to moderately enlarged. The left atrial size is normal. The right atrium is normal in size. There is mild aortic valve sclerosis. The mitral valve leaflets are mildly thickened. Mild mitral annular calcification present. There is trace mitral regurgitation. Moderate to severe tricuspid regurgitation present. There is mild pulmonary hypertension. The rig ht ventricular systolic pressure, as measured by Doppler, is 37.58mmHg. There is no pulmonic regurgitation present. The aortic root size is normal. There is no pericardial effusion. CONCLUSIONS -------- 1. Sinus rhythm. 2. This was a technically adequate study. 3. The left ventricular size is normal. 4. There is moderate concentric left ventricular hypertrophy. 5. Overall left ventricular systolic function is moderate-severely impaired with, an EF between 30 - 35 %. 6. Basal inferoseptal LV wall motion is hypokinetic. 7. Mid inferoseptal LV wall motion is hypokinetic. 8. Apical septum LV wall motion is hypokinetic. 9. The right ventricle is mild to moderately enlarged. 10. The left atrial size is normal. 11. The right atrium is normal in size. 12. There is mild aortic valve sclerosis. 13. The mitral valve leaflets are mildly thickened. 14. Mild mitral annular calcification present. 15. There is trace mitral regurgitation. 16. Moderate to severe tricuspid regurgitation present. 17. There is mild pulmonary hypertension. 18. The right ventricular systolic pressure, as measured by Doppler, is 37.58mmHg. 19. There is no pulmonic regurgitation present. 20. The aortic root size is normal. 21. There is no pericardial effusion. STATE'S ATTORNEY: Shanelle Moss RDCS
[2017-11-22] MEDS ORDERED: PHYTONADIONE 5 MG in SODIUM CHLORIDE 0.9% 50 ML IVPB STA (11:46)
--- NOTE | 2017-11-22 12:33 | P.PN ---
Subjective Progress Note Date: 11/22/17 Principal diagnosis: Status post CABG and mitral valve repair, postoperative day #5 Mr. Silva is a 72-year-old white male patient of Dr. Wong, who presented today on 11/16/2017 for elective placement of intra-aortic balloon pump in preparation for three-vessel coronary artery bypass graft surgery and mitral valve repair for severe mitral valve insufficiency and ischemic cardiomyopathy with severely impaired systolic dysfunction. Surgery is scheduled for tomorrow 11/17/[address] Borjas. Patient has been having progressive exertional dyspnea for the last 2 years, and last 3 months patient started experiencing severe limitation of his exercise capacity, becoming quite dyspneic while climbing a flight of stairs. Patient denied any chest pain, palpitations, syncopal episodes. Patient started experiencing bilateral lower extremity edema , and he presented to his PCP for evaluation of his symptoms. Patient has been quite active in sports during his lifetime, in swimming and running. 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 Does not have any chronic pulmonary conditions, has a remote history of smoking, quit 40 years ago , smoked a pack a day for about 5 years. No marijuana use, no EtOH, or recreational drugs. 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 Patient had a heart catheterization on 11/09/2017 which showed calcification of left main coronary artery, with mild to moderate atherosclerotic plaque in the ostial portion, circumflex with a 95% stenosis, complete occlusion of the LAD just off to the origin of the large diagonal branch, and 70% stenosis of the diagonal branch. Diffuse disease in the RCA, with a 70% stenosis at the bifurcation into PDA and PLV, and significant disease in the PDA and PLV. All the vessels were noted to be irregular, ectatic and in places aneurysmal. LVEDP was 31 mm, without significant gradient across the aortic valve. PILAR on 11/10/2017 showed ischemic cardiomyopathy with severe left ventricular systolic dysfunction, akinetic inferior wall and the septum, hypokinetic anterior wall. Moderate pulmonary hypertension and moderate mitral regurgitation. Patient was recommended surgical intervention for his symptoms, and he opted for three- vessel coronary artery bypass grafting and mitral valve repair tomorrow. Bedside spirometry was reviewed and showed FEV1 of 1.35 L or 43% of predicted, FVC of 1.65 L or 38% of predicted, consistent with severe restriction. Preop chest x-ray from 11/10/2017 showed mild cardiomegaly with small to moderate- sized right greater than the left pleural effusions and associated compressive atelectasis. Patient is seen in the intensive care, resting in bed, room air pulse ox is 92-97%, he denies any dyspnea, he is afebrile, intra-aortic balloon pump is in place, via right femoral artery. He is currently on 1:1 IABP frequency, with augmented diastolic pressure of 131 mmHg. Distal pulses are intact, sensory status is intact. Fong catheter is in place, patient is nonoliguric. Radial pulses are intact. Patient is on heparin drip at 12 u/kg/ hr. No other drips. He is on oral Lasix at 40 mg daily. Currently resting in bed, in no acute distress. On 11/18/2017 the patient is being seen for a follow-up. Note that he had a prolonged surgery which involved a 4-vessel bypass surgery and mitral valve repair. The patient arrived to the intensive care unit around 7 PM in the evening. He was on an intra-aortic balloon pump. He was also inotropes. Chest x-ray was reviewed. The patient adequate expansion of both lungs. The patient a mediastinal chest tube in the right and left pleural chest tubes. Output from the chest as was considerably high especially from the mediastinal chest tube. Overnight the patient required a total of 4 units of packed RBCs and 4 units of 4 shows and plasma and 2 units of platelets and he also received DDAVP. He received also IV fluids in the form of crystalloids and colloids. The output from the sun chest gradually improved and earlier this morning it was only putting out 20 mL an hour and currently Dopplers somewhere between 20- 40 mL an hour. As for the right pleural chest tubes output initially was initially low and then picked up and it's up to 60-80 mL an hour. The left pleural chest tube is putting out 50 mL an hour. The patient is currently on norepinephrine infusion at 7 g per KG pigmented minutes. He is also on methadone at 0.3 g per KG pigmented minutes. He is also on vasopressin and dopamine. He is also on intra-aortic balloon pump with one-to-one augmentation. The augmented blood pressure is 91. Attempts to cut down the augmentation through the intra-aortic balloon pump has failed as the patient is pressure urine output. In terms of his respiratory status, the patient is a mechanical ventilator. He is currently on assist control mode of ventilation at the rate of 12 with an FiO2 of 4040% and a PEEP of 5 and FiO2 has been drop down to 40% and tidal volumes of 500. The morning blood gases showed a pH of 7.39 with a pCO2 of 40 and pO2 of 217, and note that this was done and FiO2 of 100%. His current FiO2 is down to 40%. Renal function stable with a creatinine of 0.8. Rest of the electrodes are all within normal limits. Correlation profile is within normal limits. Most recent hemoglobin is at 7.3. The patient was sedated with Diprivan and the patient is currently off Diprivan and when it parameters are being checked. Urine output is in order of 30-40 mL an hour over the past 2 hours. His most recent blood sugar is at 137. On 11/19/2017 and seeing this patient for a follow-up. This patient is status post four-vessel bypass surgery and mitral valve replacement. Is postop day # 2. Note that the patient was extubated yesterday without any major difficulties and currently is on oxygen by nasal cannula 2 L/m. The chest x- ray shows adequate expansion of both lungs. There is some pulmonary vessel congestion. The patient has all of these chest tubes in place. The [place] catheter is also in place. As far as his breathing status, is not having any respiratory difficulties. Sternum stable clean and intact. The chest tube output over the past 12 hours was 20 mL from the mediastinum, to 90 mL from the right pleural and for 90 mL from the left poor. His most recent hemodynamic parameters shows a cardiac output of 4.8 with an index of 2.5. He has elevated intra-aortic balloon pump was a one-to-one augmentation throughout the night and currently is down to 1-2 augmentation and his augmented mean arterial blood pressures around 72. He is producing adequate amount of urine output. As far as pressors, the patient is on a combination of Primacor at 0.2 g, norepinephrine which is ranging between 1 and 6 g, dopamine at 2.5 Pedro grams per KG pigmented, and vasopressin at physiologic dose of 0.02 units per hour. He is also on lactated Ringer at 40 mL an hour and the patient is currently off insulin drip. No significant events overnight. Is afebrile. He is awake and alert. Moving all 4 extremities and he has adequate pulses in 4 extremities. On 11/20/2017, the patient is being seen in follow-up. The patient is still in the intensive care unit postop day #3. He has done very well post extubation. The intra-aortic balloon pump was discontinued. Hemodynamically, he still requiring pressors and currently the patient is on levo fed at around 5 g per KG pigmented. He is on milrinone at 0.2 micrograms per KG and he is also on vasopressin at physiologic dose of 0.03 units an hour. The patient is off dopamine. Overall cardiac index is somewhat between 2.2 and 2.3. PA diastolic pressures around 17. Urine output dropped over the past hour down to 50 mL an hour. The patient was receiving a unit of packed RBC. Output from the chest tube has been 700 mL on the left pleural over the past 24 hours is 700 mL on the left pleural 500 mL on the right pleural and there is no mediastinal chest tube that was pulled out yesterday. The patient is still on insulin drip for blood sugar control. He is awake and alert. He is feeling very weak and lethargic. He answers questions and follows commands. Trying to use incentive spirometer. The surgical wound site is dry clean and intact. Hemoglobin today is at 7.0. Rated count is at 76. Creatinine is stable at 1.2. Overnight the patient went into to establish with rapid ventricular response. The patient was given to loading dose of amiodarone. Currently is on a maintenance and eye doctor maintenance down to 0.5 mg/m. Around 1 AM this morning the patient converted back to normal sinus rhythm. On 11/21/2017, I'm seeing this patient for a follow-up. Is postop day #4. He remains extubated on 2 L of oxygen by nasal cannula. Intra-aortic balloon pump has been discontinued. The patient has the [place] catheter in place. PA pressures are 33/14. The cardiac index is at 2.4. The patient is on milrinone at 0.1. The patient is also on levo fed and the dose varies between 2-50 mics per KG per minute knowing that the patient is a very labile blood pressure. He is having occasional hypotension and subsequent hypertension and based on that the titration of the levo fed is being done. The patient has developed an acute kidney injury. Creatinine is up to 1.8. He also developed an acute liver injury, probably a shock liver due to low flow state. The patient was receiving diuretics yesterday and currently diuretics on hold. He received 2 units of packed RBC yesterday. He also received 5% albumin, 250 mL yesterday. Urine output is no other of 10 mL an hour. He has a pleural chest tube on the right and on the left, the output from the right is 350 over the past 24 hours unless put out 400 mL over the past 24 hours. Overnight, the patient has short runs of paroxysmal atrial fibrillation and current his rhythm is sinus. Amiodarone is at the maintenance of 400 mg by mouth twice a day. The hemoglobin is at 7.7. Chest x-ray shows some mild increase in pulmonary vascular markings. Chest tubes are in good location. There is no evidence of pneumothorax. Limited bibasilar infiltrates seen and small effusions. He is awake. He is alert. Aspirin was kept on 2 baby dose as the patient developed thrombocytopenia. He is still on Plavix. He is on Arixtra for DVT prophylaxis Reevaluated on 11/22/2017, patient is postoperative day #5, remains on nasal cannula at 2 L, in atrial flutter, receiving amiodarone to control his atrial flutter and possibly convert him. patient is on norepinephrine, being titrated to possibly discontinue if possible. His blood pressure seems to be labile, but at least at present seems to be stable. Renal functioning is getting worse , patient is to be seen by nephrology on consultation. Labs today showed hemoglobin of 7.4 WBC count of 8.6 platelets are low at 27,000. BUN is 66 creatinine 2.22. Liver enzymes were also noted to be elevated, however improving in the last 24 hours but remain elevated. Chest x-ray showed minimal atelectasis no evidence of pneumothorax. Objective - Vital Signs Vital signs: Vital Signs Temp 97.2 F L 11/21/17 16:00 Pulse 78 11/22/17 11:17 Resp 16 11/22/17 11:00 BP 99/49 11/20/17 12:00 Pulse Ox 99 11/22/17 11:00 Intake & Output 11/21/17 11/22/17 11/22/17 18:59 06:59 18:59 Intake Total 1515.693 801.754 248.921 Output Total 540 590 197 Balance 975.693 211.754 51.921 Weight 77.8 kg Intake: IV 410 544.3 145.2 CO/CI 80 180 20 Lactated Ringers 1,000 ml 240 240 80 @ 20 mls/hr IV .Q24H [facility] Rx#:[id number] Pressure Bags 90 99 36 Primacor 0.1 mcg/kg/min 25.3 9.2 Intake, IV Titration 625.693 57.454 103.721 Amount Albumin Human 5% 250 ml 500 In Empty Bag 1 bag @ 250 mls/hr IVPB ONCE ONE Rx#: [id number] Calcium Chloride 500 mg 50 In Sodium Chloride 0.9% 50 ml @ 200 mls/hr IVPB ONCE ONE Rx#:[id number] Calcium Chloride 500 mg 50 In Sodium Chloride 0.9% 50 ml @ 200 mls/hr IVPB ONCE ONE Rx#:[id number] Insulin Regular 100 unit 11.845 9.616 In Sodium Chloride 0.9% 100 ml @ Per Protocol IV .Q0M [facility] Rx#:[id number] Milrinone-D5w Pmx 20 mg 37.746 In Dextrose/Water 1 100ml .bag @ 0.1 MCG/KG/MIN 2. 33 mls/hr IV .Q24H [facility] Rx #:[id number] Norepinephrine 16 mg In 26.102 47.838 53.721 Dextrose 5% in Water 250 ml @ Titrate IV .Q0M [facility] Rx#:[id number] Oral 480 200 Output: Chest Tube Drainage 370 390 80 left pleural 230 120 30 right pleural 140 270 50 Drainage 0 25 10 Left Calf 0 25 10 Urine 170 175 107 Other: Voiding Method Indwelling Catheter Indwelling Catheter Indwelling Catheter # Bowel Movements 0 ABP, PAP, CO, CI - Last Documented Arterial Blood Pressure 94/48 Pulmonary Artery Pressure 41/16 Cardiac Output 7.0 Cardiac Index 3.6 - Exam GENERAL EXAM: Revealed a 72-year-old white male in no distress. HEAD: Normocephalic/atraumatic. Presently on 2 L nasal cannula. EYES: Normal reaction of pupils, equal size. Conjunctiva pink, sclera white. NOSE: Clear with pink turbinates. THROAT: No erythema or exudates. NECK: No masses, no JVD, no thyroid enlargement, no adenopathy. CHEST: No chest wall deformity. Symmetrical expansion. Breath sounds are equal and symmetrical. Sternum stable clean and intact. All of the chest tubes are in place LUNGS: Equal air entry with no crackles, wheeze, rhonchi or dullness. CVS: Regular rate and rhythm, normal S1 and S2, no gallops, no rubs, systolic murmur at the apex. Adequate pulses in the lower extremities bilaterally ABDOMEN: Soft, nontender. No hepatosplenomegaly, normal bowel sounds, no guarding or rigidity. EXTREMITIES: No clubbing, no edema, no cyanosis, 1+ pulses and upper and lower extremities. MUSCULOSKELETAL: Muscle strength and tone normal. SPINE: No scoliosis or deformity SKIN: No rashes CENTRAL NERVOUS SYSTEM: Awake and alert and following commands and answer questions appropriately.. PSYCHIATRIC: Cannot be assessed - Labs CBC & Chem 7: 11/22/17 04:08 11/22/17 04:08 Labs: Abnormal Lab Results - Last 24 Hours (Table) 11/21/17 11/21/17 11/21/17 Range/Units 14:12 16:43 17:26 RBC (4.30-5.90) m/uL Hgb (13.0-17.5) gm/dL Hct (39.0-53.0) % RDW (11.5-15.5) % Plt Count (150-450) k/uL Lymphocytes # (Manual) (1.0-4.8) k/uL Carbon Dioxide (22-30) mmol/L BUN (9-20) mg/dL Creatinine (0.66-1.25) mg/dL Glucose (74-99) mg/dL POC Glucose (mg/dL) 127 H 122 H 112 H (75-99) mg/dL Calcium (8.4-10.2) mg/dL Phosphorus (2.5-4.5) mg/dL Magnesium (1.6-2.3) mg/dL Total Bilirubin (0.2-1.3) mg/dL AST (17-59) U/L ALT (21-72) U/L Total Protein (6.3-8.2) g/dL Albumin (3.5-5.0) g/dL 11/21/17 11/21/17 11/21/17 Range/Units 20:12 22:07 23:54 RBC (4.30-5.90) m/uL Hgb (13.0-17.5) gm/dL Hct (39.0-53.0) % RDW (11.5-15.5) % Plt Count (150-450) k/uL Lymphocytes # (Manual) (1.0-4.8) k/uL Carbon Dioxide (22-30) mmol/L BUN (9-20) mg/dL Creatinine (0.66-1.25) mg/dL Glucose (74-99) mg/dL POC Glucose (mg/dL) 130 H 139 H 145 H (75-99) mg/dL Calcium (8.4-10.2) mg/dL Phosphorus (2.5-4.5) mg/dL Magnesium (1.6-2.3) mg/dL Total Bilirubin (0.2-1.3) mg/dL AST (17-59) U/L ALT (21-72) U/L Total Protein (6.3-8.2) g/dL Albumin (3.5-5.0) g/dL 11/22/17 11/22/17 11/22/17 Range/Units 01:58 04:08 04:08 RBC 2.72 L (4.30-5.90) m/uL Hgb 7.4 L (13.0-17.5) gm/dL Hct 24.0 L (39.0-53.0) % RDW 16.5 H (11.5-15.5) % Plt Count 27 L* (150-450) k/uL Lymphocytes # (Manual) 0.77 L (1.0-4.8) k/uL Carbon Dioxide 21 L (22-30) mmol/L BUN 66 H (9-20) mg/dL Creatinine 2.22 H (0.66-1.25) mg/dL Glucose 118 H (74-99) mg/dL POC Glucose (mg/dL) 155 H (75-99) mg/dL Calcium 8.0 L (8.4-10.2) mg/dL Phosphorus 5.1 H (2.5-4.5) mg/dL Magnesium 2.5 H (1.6-2.3) mg/dL Total Bilirubin 2.5 H (0.2-1.3) mg/dL AST 2202 H (17-59) U/L ALT 751 H (21-72) U/L Total Protein 5.4 L (6.3-8.2) g/dL Albumin 3.1 L (3.5-5.0) g/dL 11/22/17 11/22/17 Range/Units 04:08 06:18 RBC (4.30-5.90) m/uL Hgb (13.0-17.5) gm/dL Hct (39.0-53.0) % RDW (11.5-15.5) % Plt Count (150-450) k/uL Lymphocytes # (Manual) (1.0-4.8) k/uL Carbon Dioxide (22-30) mmol/L BUN (9-20) mg/dL Creatinine (0.66-1.25) mg/dL Glucose (74-99) mg/dL POC Glucose (mg/dL) 135 H 123 H (75-99) mg/dL Calcium (8.4-10.2) mg/dL Phosphorus (2.5-4.5) mg/dL Magnesium (1.6-2.3) mg/dL Total Bilirubin (0.2-1.3) mg/dL AST (17-59) U/L ALT (21-72) U/L Total Protein (6.3-8.2) g/dL Albumin (3.5-5.0) g/dL Assessment and Plan Assessment: #1. Symptomatic multivessel coronary artery disease, with total occlusion of the LAD, 70% stenosis of the diagonal artery, 95% stenosis of the circumflex, diffuse disease in the RCA with 70% stenosis at the bifurcation of the PDA and PLV. Patient is scheduled for coronary artery bypass grafting and mitral valve repair on 11/17/2017 On 11/18/2017, the patient is postop day #1. The patient underwent coronary artery bypass surgery and mitral valve repair. The patient had an intra-aortic balloon pump inserted preoperatively and the balloon pump is still active with one-to-one augmentation. The patient is also on a combination of inotropes including vasopressin, norepinephrine, milrinone, and renal dose dopamine. The urine output is adequate and the blood pressure augmented is around 95. The patient is producing adequate amount of urine output. On 11/19/2017, the patient is postop day #2. He has undergone coronary artery bypass surgery with 4 vessels and mitral valve repair. The patient is extubated he is currently on 2 L of oxygen by nasal cannula. Output from the chest tube has dropped considerably although the left pleural is still active. No evidence of any air leaks. Chest x-ray shows adequate expansion of both lungs with small pleural effusions. The patient is oxygenating well. The patient is hemodynamically doing better. Intra-aortic balloon pump is still in place with 1-2 augmentation. Pressors are being titrated and the current combination includes norepinephrine infusion, dopamine infusion, Primacor infusion and vasopressin. Note that the dopamine is at renal dose and there vasopressin is at physiologic dose. Norepinephrine infusion is running between 1 and 6 g per KG pigmented./min On 11/20/2017 the patient is postop day #3. He is looking better. He is off the intra-aortic balloon pump. History requiring pressors. We will given a unit of packed RBC and manages pressors based on his hemodynamic parameters. One concern is a drop in urine output over going to monitor that and this will hopefully improve following the packed RBC transfusion. Continue the milrinone and continue the norepinephrine infusion for now. On 11/21/2017 the patient is postop day #4. He is extubated. He is still having issues with his hemodynamics. He is requiring pressors. There is a labile blood pressure. The patient was diuresed yesterday and currently he is in a low output state with diminished urine output and hypotension and he has also developed an acute kidney injury with acute shock liver type of picture. He is having paroxysmal atrial fibrillation currently on amiodarone maintenance and current rhythm is sinus mechanism. On 11/22/2017, patient is postoperative day #5, presently on nasal cannula, major issues include issues related to his atrial flutter, renal failure, elevated liver enzymes, acute shock liver, all being addressed accordingly. #2. Mitral valve regurgitation, post mitral valve repair #3. Ischemic cardiomyopathy, with severe left ventricular systolic dysfunction , with significantly impaired preoperative physical ejection fraction #4 postoperative bleeding via chest tubes. The mediastinal chest tube was removed and the patient has a pleural chest tubes in place #5. Diabetes mellitus type 2, currently on insulin drip #6. Remote history of nicotine dependence, patient quit 40 years ago, carries 5 -pack-year smoking history #7. Postoperative anemia with a hemoglobin of of 7.0 and the patient will be receiving units of packed RBC. There is an expected outcome of surgery #8. Diabetic retinopathy Plan: Continue present supportive care measures, will continue to monitor with all the different consultants on the case in the ICU. Continue to monitor platelets renal functioning, and fluid status. Time with Patient: Less than 30
[2017-11-22 12:38] LABS: Glucose,Whole Blood 132 mg/dL (75-99)
[2017-11-22] MEDS: MIDODRINE 5 MG TAB PO SCH ×2 (12:42→17:36)
[2017-11-22] MEDS ORDERED: SODIUM CHLORIDE 0.9% 250 ML IV ONE (13:30)
[2017-11-22] MEDS: INSULIN ASPART 100 UNIT/ML 1 ML 10 ML VIAL SQ SCH ×3 (13:59→21:08)
--- NOTE | 2017-11-22 14:20 | PN ---
PROGRESS NOTE This patient's medical records were reviewed. The patient comfortable and sitting bedside chair without any problems. Patient denies any cough with expectoration. Patient is afebrile. Heart rate is 76 per minute. The blood pressure is about 100 systolic. First and second heart sounds are normal. The patient's lungs reveal bilateral rales. Abdomen is soft. There is a trace leg edema. The patient's PA pressure shows PA diastolic pressure is 18-20 mmHg and right atrial pressure is 17 mmHg. Chest x-ray does not show significant failure. Patient's creatinine is 2.0 and SGOT is 2200. FINAL IMPRESSION: This patient is status post coronary artery bypass surgery, mitral valve repair. Echocardiogram done today again shows moderate to severely impaired left ventricular systolic function with ejection fraction of 30% to 35%. Moderate to severe tricuspid regurgitation is noted. Pulmonary artery pressures were calculated in the range of 40 mmHg. RECOMMENDATION: This patient remains hemodynamically unstable with progressive renal and liver failure. The progressive rise in the liver enzymes could be secondary to hepatic congestion. I think the patient needs to be diuresed. I do not think the patient is volume depleted at present. MMODL / IJN: [id number] /
[2017-11-22] MEDS ORDERED: IV FLUID CONTINUATION 1,000 ML IV ONE (14:41)
--- NOTE | 2017-11-22 14:56 | P.CONS ---
History of Present Illness - Reason for Consult Consult date: 11/22/17 thrombocytopenia and need for anticoagulation Requesting physician: Meli Malcolm - Chief Complaint Status Post CABG - History of Present Illness This is a pleasant 72 year old gentleman with known history of diabetes mellitus type 2, hyperlipidemia, who originally presented for evaluation of shortness of breath and progressive dyspnea on exertion. He subsequently underwent cardiac cath and was found to have ischemic cardiomyopathy with severe LV dysfunction, and triple vessel disease. He was originally admitted admitted on 11/16/17 for a cardiac bypass surgery and valve repair. Status Post CABG and Mitral Valve repair on 11/17/17. His Platlets were over 200 on admission and liver function within normal limits. Today 11/22/17 platlets are down to 26. He is currently in ICU under gunner mate care. On 11/19/17 his heparin was discontinued and changed to Arixtra. His platelets did not recover after this change. There are Heparin Induced Thrombocytopenia antibodies in progress. His PT/INR is also showing mild coagulopathy. He requires managment of anticoagulation with recent procedure, although withi his drop in platlet count and increase INR, hematology has been consulted. Durining initial assessment he is sitting up in chair and alert in no distress. He denies any bleeding from nose, mouth, rectum. He denies any acute complaints. Review of Systems A 14 point review of systems assessed and completed and all negative except HPI. Past Medical History Past Medical History: Coronary Artery Disease (CAD), Heart Failure, Diabetes Mellitus, Hyperlipidemia, Myocardial Infarction (OR) Additional Past Medical History / Comment(s): mitral valve regurgitation Last Myocardial Infarction Date:: PER ECHO POSS UNKNOWN DATE -OR History of Any Multi-Drug Resistant Organisms: None Reported Past Surgical History: Heart Catheterization, Orthopedic Surgery Additional Past Surgical History / Comment(s): CORNEAL GRAFT LEFT EYE, LITHOTRIPSY , LEFT KNEE SURGERY-ARTHROSCOPIC Past Anesthesia/Blood Transfusion Reactions: No Reported Reaction Additional Past Anesthesia/Blood Transfusion Reaction / Comm: no hx of blood transfusion Smoking Status: Former smoker - Past Family History Mother History Unknown: Yes ( at age 86 secondary to traumatic brain concussion bleed) Family Medical History: No Reported History Father Family Medical History: Coronary Artery Disease (CAD) ( at 83) Brother(s) Family Medical History: No Reported History Sister(s) Family Medical History: No Reported History (One brother one sister healthy no children) Medications and Allergies Home Medications Medication Instructions Recorded Confirmed Type Atorvastatin [Lipitor] 40 mg PO HS 11/03/17 11/16/17 History Erythromycin Ophth Oint [Romycin 1 applic LEFT EYE HS 11/03/17 11/16/17 History Ophth Oint] Gatifloxacin/Prednisolone 1 drop LEFT EYE HS 11/03/17 11/16/17 History [prednisoLONE 1%-Gatiflox 0.5%] Glucosamine/MSM/Chrond/D3/Bosw 1 tab PO DAILY 11/03/17 11/16/17 History [Qgeeacxduch-Ivrdel-GFF-D3 Cplt] Lisinopril [Zestril] 5 mg PO DAILY@1500 11/03/17 11/16/17 History Multivitamin [Men's Multi-Vitamin] 1 tab PO DAILY 11/03/17 11/16/17 History Naproxen Sodium [Aleve] 440 mg PO DAILY 11/03/17 11/16/17 History diphenhydrAMINE [Benadryl] 25 mg PO DAILY PRN 11/03/17 11/16/17 History Furosemide [Lasix] 40 mg PO DAILY #30 tablet 11/09/17 11/16/17 Rx Metoprolol Succinate (ER) [Toprol 50 mg PO DAILY@1500 11/15/17 11/16/17 History Xl] Mupirocin 2% Nasal Oint [Bactroban 1 applic NASAL BID 11/15/17 11/16/17 History 2% Nasal Oint] metFORMIN HCL 1,000 mg PO W/SUPPER 11/15/17 11/16/17 History metFORMIN HCL [Glucophage] 500 mg PO BID 11/15/17 11/16/17 History Allergies Allergy/AdvReac Type Severity Reaction Status Date / Time clindamycin Allergy Rash/Hives Verified 11/16/17 10:28 Physical Exam Vitals: Vital Signs Temp Pulse Resp Pulse Ox 11/22/17 14:00 101 H 16 98 11/22/17 13:00 76 13 97 11/22/17 12:00 79 16 98 11/22/17 11:17 78 11/22/17 11:05 79 11/22/17 11:00 78 16 99 11/22/17 10:00 83 24 98 11/22/17 09:00 113 H 13 100 11/22/17 08:00 80 16 100 11/22/17 07:36 77 11/22/17 07:24 75 11/22/17 07:00 78 20 100 11/22/17 06:00 82 20 97 11/22/17 05:00 80 13 97 11/22/17 04:00 79 12 96 11/22/17 03:00 80 16 99 11/22/17 02:00 77 11 L 99 11/22/17 01:00 75 15 96 11/22/17 00:00 116 H 12 97 11/21/17 23:00 79 11 L 99 11/21/17 22:00 77 16 93 L 11/21/17 21:00 102 H 20 99 11/21/17 20:06 111 H 11/21/17 20:00 100 19 99 11/21/17 19:52 99 11/21/17 19:00 102 H 16 11/21/17 18:00 80 22 100 11/21/17 17:00 117 H 16 98 11/21/17 16:23 73 11/21/17 16:18 73 11/21/17 16:00 97.2 F L 72 16 98 11/21/17 15:00 73 16 99 Intake and Output 11/21/17 11/22/17 11/22/17 22:59 06:59 14:59 Intake Total 754.411 420.040 773.956 Output Total 394 421 467 Balance 360.411 -0.960 306.956 Intake: IV 291.9 370.4 290.4 CO/CI 80 120 40 Lactated Ringers 1,000 ml 160 160 160 @ 20 mls/hr IV .Q24H [facility] Rx#:[id number] Pressure Bags 45 72 72 Primacor 0.1 mcg/kg/min 6.9 18.4 18.4 Intake, IV Titration 22.511 49.640 363.556 Amount Calcium Chloride 500 mg 50 In Sodium Chloride 0.9% 50 ml @ 200 mls/hr IVPB ONCE ONE Rx#:[id number] Insulin Regular 100 unit 3.383 9.616 In Sodium Chloride 0.9% 100 ml @ Per Protocol IV .Q0M [facility] Rx#:[id number] Norepinephrine 16 mg In 19.128 40.024 63.556 Dextrose 5% in Water 250 ml @ Titrate IV .Q0M [facility] Rx#:[id number] Phytonadione 5 mg In 50 Sodium Chloride 0.9% 50 ml @ 100 mls/hr IVPB ONCE STA Rx#:[id number] Sodium Chloride 0.9% 250 200 ml @ 999 mls/hr IV .Q16M ONE Rx#:[id number] Oral 440 120 Output: Chest Tube Drainage 240 300 270 left pleural 140 80 90 right pleural 100 220 180 Drainage 25 10 Left Calf 25 10 Urine 129 121 187 Other: Voiding Method Indwelling Catheter Indwelling Catheter Indwelling Catheter # Bowel Movements 0 Weight 77.8 kg 77.8 kg ABP, PAP, CO, CI - Last 8 Hours Arterial Blood Pressure 110/56 Arterial Blood Pressure 104/46 Arterial Blood Pressure 105/46 Arterial Blood Pressure 94/48 Arterial Blood Pressure 129/49 Arterial Blood Pressure 117/53 Arterial Blood Pressure 113/47 Arterial Blood Pressure 116/47 Pulmonary Artery Pressure 40/18 Pulmonary Artery Pressure 44/20 Pulmonary Artery Pressure 42/17 Pulmonary Artery Pressure 41/16 Pulmonary Artery Pressure 38/9 Pulmonary Artery Pressure 42/12 Pulmonary Artery Pressure 38/11 Pulmonary Artery Pressure 38/11 Cardiac Output 5.3 Cardiac Output 7.0 Cardiac Index 2.7 Cardiac Index 3.6 - Constitutional General appearance: cooperative, no acute distress - EENT Eyes: EOMI, dentition normal ENT: NA/AT, normal oropharynx - Neck supple, Right IJ line CDI Neck: normal ROM - Respiratory Respiratory: bilateral: CTA - Cardiovascular Rhythm: irregularly irregular Heart sounds: normal: S1, S2 - Gastrointestinal General gastrointestinal: normal bowel sounds, soft - Integumentary Integumentary: pale - Neurologic Neurologic: CNII-XII intact - Musculoskeletal Musculoskeletal: generalized weakness, strength equal bilaterally - Psychiatric Psychiatric: A&O x's 3, appropriate affect, intact judgment & insight Results CBC & Chem 7: 11/22/17 04:08 11/22/17 04:08 Labs: Abnormal Lab Results - Last 24 Hours (Table) 11/21/17 11/21/17 11/21/17 Range/Units 16:43 17:26 20:12 RBC (4.30-5.90) m/uL Hgb (13.0-17.5) gm/dL Hct (39.0-53.0) % RDW (11.5-15.5) % Plt Count (150-450) k/uL Lymphocytes # (Manual) (1.0-4.8) k/uL Carbon Dioxide (22-30) mmol/L BUN (9-20) mg/dL Creatinine (0.66-1.25) mg/dL Glucose (74-99) mg/dL POC Glucose (mg/dL) 122 H 112 H 130 H (75-99) mg/dL Calcium (8.4-10.2) mg/dL Phosphorus (2.5-4.5) mg/dL Magnesium (1.6-2.3) mg/dL Total Bilirubin (0.2-1.3) mg/dL AST (17-59) U/L ALT (21-72) U/L Total Protein (6.3-8.2) g/dL Albumin (3.5-5.0) g/dL 11/21/17 11/21/17 11/22/17 Range/Units 22:07 23:54 01:58 RBC (4.30-5.90) m/uL Hgb (13.0-17.5) gm/dL Hct (39.0-53.0) % RDW (11.5-15.5) % Plt Count (150-450) k/uL Lymphocytes # (Manual) (1.0-4.8) k/uL Carbon Dioxide (22-30) mmol/L BUN (9-20) mg/dL Creatinine (0.66-1.25) mg/dL Glucose (74-99) mg/dL POC Glucose (mg/dL) 139 H 145 H 155 H (75-99) mg/dL Calcium (8.4-10.2) mg/dL Phosphorus (2.5-4.5) mg/dL Magnesium (1.6-2.3) mg/dL Total Bilirubin (0.2-1.3) mg/dL AST (17-59) U/L ALT (21-72) U/L Total Protein (6.3-8.2) g/dL Albumin (3.5-5.0) g/dL 11/22/17 11/22/17 11/22/17 Range/Units 04:08 04:08 04:08 RBC 2.72 L (4.30-5.90) m/uL Hgb 7.4 L (13.0-17.5) gm/dL Hct 24.0 L (39.0-53.0) % RDW 16.5 H (11.5-15.5) % Plt Count 27 L* (150-450) k/uL Lymphocytes # (Manual) 0.77 L (1.0-4.8) k/uL Carbon Dioxide 21 L (22-30) mmol/L BUN 66 H (9-20) mg/dL Creatinine 2.22 H (0.66-1.25) mg/dL Glucose 118 H (74-99) mg/dL POC Glucose (mg/dL) 135 H (75-99) mg/dL Calcium 8.0 L (8.4-10.2) mg/dL Phosphorus 5.1 H (2.5-4.5) mg/dL Magnesium 2.5 H (1.6-2.3) mg/dL Total Bilirubin 2.5 H (0.2-1.3) mg/dL AST 2202 H (17-59) U/L ALT 751 H (21-72) U/L Total Protein 5.4 L (6.3-8.2) g/dL Albumin 3.1 L (3.5-5.0) g/dL 18 11/22/17 Range/Units 06:18 12:37 RBC (4.30-5.90) m/uL Hgb (13.0-17.5) gm/dL Hct (39.0-53.0) % RDW (11.5-15.5) % Plt Count (150-450) k/uL Lymphocytes # (Manual) (1.0-4.8) k/uL Carbon Dioxide (22-30) mmol/L BUN (9-20) mg/dL Creatinine (0.66-1.25) mg/dL Glucose (74-99) mg/dL POC Glucose (mg/dL) 123 H 132 H (75-99) mg/dL Calcium (8.4-10.2) mg/dL Phosphorus (2.5-4.5) mg/dL Magnesium (1.6-2.3) mg/dL Total Bilirubin (0.2-1.3) mg/dL AST (17-59) U/L ALT (21-72) U/L Total Protein (6.3-8.2) g/dL Albumin (3.5-5.0) g/dL Assessment and Plan Plan: Assessment and Recommendations: 1. THrombocytopenia: Prolonged INR/PT - coagulopathy - Likely secondary to Shock Liver and COnsumption, less likely Heparin exposure. - Will CHeck Fibrinogen to ensure no underlying DIC - Continue to monitor PT/INR and Daily CBC - Transfuse to attempt a platlet count of 50K for continued anti-platelet and anticoagulation needed post CABG and Valve Replacement - Will Give 5mg of VItamin K today for INR 1.8 2. Liver Transiminitis: - Likely secondary to shock liver. - Denies underlying liver disease - Continue to monitor liver per managment of primary team 3. Normocytic Anemia: - Monitor CBC, Transfuse for Hemoglobin less than 7 4. Mitral valve regurgitation, post mitral valve repair 5. Ischemic cardiomyopathy, with severe left ventricular systolic dysfunction, with significantly impaired preoperative physical ejection fraction 6. Diabetes mellitus type 2, currently on insulin drip Physician Attestation: I have completed the full history and physical of this patient and discussed and agree with above dictation by Archie Avina NP. DIctated as a scribe
[2017-11-22] MEDS ORDERED: LIDOCAINE 1% INJ 10MG/ML (20 ML MDV) SQ ONE (15:01)
--- NOTE | 2017-11-22 15:30 | XR ---
EXAMINATION TYPE: XR chest 1V confirm line [facility] DATE OF EXAM: 11/22/2017 COMPARISON: 11/22/2017 HISTORY: PICC line placement TECHNIQUE: Single frontal view of the chest is obtained. FINDINGS: New left-sided PICC line has been inserted in the interim with its distal tip in the high r ight atrium. This could be retracted approximately 3 cm for optimal placement. Remainder of the lines and tubes appear similar to the prior exam. Redemonstration of mild pulmonary vascular congestion, i nterstitial edema and trace right pleural effusion are seen with multifocal atelectasis and cardiomeg karina. IMPRESSION: Interval placement of a left-sided PICC terminating in the high right atrium. Retraction of approximately 3 cm could be performed for optimal placement. Otherwise similar exam to the prior earlier on the same date.
--- NOTE | 2017-11-22 15:42 | IR ---
EXAMINATION TYPE: IR cvc insert >=5 years DATE OF EXAM: 11/22/2017 COMPARISON: NONE HISTORY: Needs long-term intravenous access for total parenteral nutrition FINDINGS: Maximal barrier technique was utilized, ultrasound used with sterile technique. The skin o verlying the left basilic vein was localized with ultrasound and noted to be compressible and patent by ultrasound. An ultrasound image was obtained and submitted on patient's chart. Sterile technique utilized with the ultrasound machine. The skin overlying was prepped and draped and Lidocaine used fo r local anesthesia. A skin marcelino was made with a scalpel. Access was gained to the vein under direct ultrasound guidance with a 21-gauge needle and a 0.018 inch wire was advanced. Access site was dila elieser with a peel-away sheath and the catheter tailored to length. Catheter advanced centrally and a p ost procedure chest x-ray verified placement with the tip within the right atrium. Catheter was fixe d to the skin with suture and a sterile dressing placed. Hemostasis achieved and the catheter was as pirated and flushed with sterile saline. The patient remained in stable condition. IMPRESSION: STATUS POST ULTRASOUND GUIDED PICC LINE PLACEMENT, READY FOR USE. THIS PROCEDURE WAS PER FORMED BY THE UNDERSIGNED.
[2017-11-22] MEDS: ONDANSETRON 4 MG/2 ML VIAL IVP PRN (17:05)
[2017-11-22 17:33] LABS: Glucose,Whole Blood 140 mg/dL (75-99)
[2017-11-22] MEDS: MILRINONE-D5W PMX 20 MG in DEXTROSE/WATER 1 100ML.BAG IV SCH (17:34)
[2017-11-22] MEDS ORDERED: FUROSEMIDE 10 MG/ML 4 ML VIAL IV STA (19:36)
[2017-11-22 20:33] LABS: Glucose,Whole Blood 146 mg/dL (75-99)
[2017-11-22 20:45] LABS: Appearance,Urine Turbid (Clear); Bilirubin,Urine Negative (Negative); Blood,Urine Large (Negative); Color,Urine Yellow; Glucose,Urine (UA) Negative (Negative); Hyaline Casts,Urine 76 /lpf (0-2); Ketones,Urine Negative (Negative); Leukocyte Esterase,Urine Moderate (Negative); Mucus,Urine Moderate /hpf; Nitrite,Urine Negative (Negative); Protein,Urine 2+ (Negative); RBC,Urine >182 /hpf (0-5); Specific Gravity,Urine 1.017 (1.001-1.035); Sperm,Urine Many /hpf; Urobilinogen,Urine <2.0 mg/dL (<2.0); WBC,Urine 37 /hpf (0-5)
[2017-11-22] MEDS: prednisoLONE ACETATE 1% OPHTH DROPS 5 ML BTL LEFT EYE SCH (21:08)
[2017-11-22] MEDS: ERYTHROMYCIN 5 MG/GM OPHTH OINT 3.5 GM TUBE LEFT EYE SCH (21:08)
[2017-11-22] MEDS: LACTATED RINGERS 1,000 ML IV SCH (21:09)
[2017-11-22] MEDS: SENNOSIDES-DOCUSATE SODIUM 1 EACH TAB PO SCH (21:10)
--- NOTE | 2017-11-22 21:18 | XR ---
EXAMINATION: XR chest 1V portable DATE AND TIME: 11/22/2017 8:09 PM ORDERING PROVIDER: Piter Martel MD~[id number] CLINICAL INDICATION: shortness of breath TECHNIQUE: AP upright portable COMPARISON: 11/22/2017 at 3:15 PM DESCRIPTION: Since prior study a right IJ catheter is been removed. Bilateral chest tubes are in place. Left upper extremity PICC line tip superimposes over the right atrium. Sternal sutures and EKG leads and mediastinal clips noted. The lungs show a fine reticular pattern of increased density bilaterally throughout the lungs consist ent with interstitial phase pulmonary edema, appearing to be mild in degree. No focal lung consolidation although the lung bases are not well-visualized on this radiograph, parti cularly the left lower lobe. The pleural spaces are negative as seen. Moderately enlarged cardiac silhouette redemonstrated. IMPRESSION: INTERSTITIAL PHASE CARDIOGENIC PULMONARY EDEMA.
[2017-11-22] MEDS: FUROSEMIDE 250 MG in SODIUM CHLORIDE 0.9% 225 ML IVP SCH (22:01)
[2017-11-23 00:07] LABS: ABG Base Excess -8.3 mmol/L; ABG HCO3 17 mmol/L (21-25); ABG Oxygen Saturation 98.5 % (94-97); ABG PCO2 30 mmHg (35-45); ABG PH 7.36 (7.35-7.45); ABG PO2 102 mmHg (83-108); ABG TCO2 18 mmol/L (19-24)
[2017-11-23] MEDS: HYDROcodone/APAP 5-325MG 1 EACH TAB PO PRN ×2 (00:18→17:56)
[2017-11-23] MEDS ORDERED: LORazepam 2 MG/ML INJ IV PRN (00:33)
--- NOTE | 2017-11-23 01:59 | CONS ---
CONSULTATION DATE OF SERVICE: 11/22/2017. REASON FOR CONSULT: Renal failure. HISTORY OF PRESENT ILLNESS: Patient is a 72-year-old male who is status post coronary artery bypass surgery and mitral valve replacement. He is postop day #6. The patient has severe cardiomyopathy. His echocardiogram done this morning shows ejection fraction of 30% to 35%. His urine output has been at about 5 to 10 mL/hour for the last 2 to 3 days. The patient's blood pressure has been on the lower side. He had been on and off Levophed, ranging from 0 to 10 mcgs. Lasix was last administered about 2 days ago. Currently, patient is sitting up in a bedside chair. He is not in any acute distress. PAST MEDICAL HISTORY: Significant for coronary artery disease, ischemic cardiomyopathy, hypertension, type 2 diabetes, history of [place], mitral valve regurgitation, osteoarthritis. PAST SURGICAL HISTORY: Previous cardiac cath, corneal graft, lithotripsy, left knee arthroscopy. SOCIAL HISTORY: Patient is a former smoker. No history of drug abuse or alcohol abuse. MEDICATIONS: Currently patient is on Levophed, he is on Primacor, Cordarone, hydrocodone, Lopressor at 12.5 mg b.i.d. patient was also started on Midodrine. EXAMINATION: He is currently comfortable. He is not in any acute distress. Blood pressure this morning was 104/46, heart rate of about 97 per minute. Patient is afebrile. Examination of the heart S1, S2. Examination lungs decreased breath sounds at the bases. The abdomen is soft. Examination of lower extremities shows no significant edema in the right lower extremity. Left extremity is currently wrapped. DINNER COOK exam is grossly intact. Patient is blind in his left eye. LABS: Sodium 137, potassium 5.0, CO2 is 21, BUN 66, serum creatinine 2.2, phosphorus 5.1, magnesium 2.5, hemoglobin 7.4 g/dL, platelet count 27,000. ASSESSMENT: 1. Acute kidney injury, acute tubular necrosis, oliguric. There is most likely an element of cardiorenal syndrome as well. The patient is maintained on Milrinone. Repeat echocardiogram shows ejection fraction 30% to 35%. Hemoglobin is low, which is also contributing to the acute kidney injury. If his hemoglobin drops below 7.4, I would recommend transfusion of at least 1 unit packed RBCs given the underlying cardiomyopathy and renal failure. I will give a small fluid bolus. If urine output does not brain picker, we will diurese him. No nephrotoxic agents on board. I will continue with the midodrine for now. I will also check a random urine sodium. 2. Postop day #6 for coronary artery bypass surgery and mitral valve replacement. 3. Transaminitis secondary to hypoperfusion. 4. Thrombocytopenia. PLAN: Repeat urinalysis. Check random urine sodium. I will try 250 mL fluid bolus. If there is no improvement in the urine output, we will diurese the patient. If hemoglobin drops further, he should be transfused at least 1 unit packed RBCs. Continue with the Primacor and the midodrine. Thank you for this consultation. We will continue to follow the patient with you during his hospitalization. KATH / CLAUS: [id number] /
[2017-11-23 02:16] LABS: Glucose,Whole Blood 186 mg/dL (75-99)
[2017-11-23] MEDS: INSULIN ASPART 100 UNIT/ML 1 ML 10 ML VIAL SQ SCH ×5 (02:16→23:11)
[2017-11-23 04:31] LABS: Ionized Calcium 4.7 mg/dL (4.5-5.3)
[2017-11-23 04:32] LABS: Anisocytosis Slight; Basophils % (A) 0 %; Eosinophils % (A) 0 %; HCT 23.1 % (39.0-53.0); HGB 7.4 gm/dL (13.0-17.5); INR 2.5 (<1.2); Lymphocytes # (A) 0.6 k/uL (1.0-4.8); Lymphocytes % (A) 5 %; MCHC 31.9 g/dL (31.0-37.0); MCV 87.8 fL (80.0-100.0); Mean Platelet Volume 10.2; Monocytes # (A) 0.9 k/uL (0-1.0); Monocytes % (A) 8 %; Neutrophils % (A) 83 %; Prothrombin Time 22.5 sec (9.0-12.0); RBC 2.63 m/uL (4.30-5.90); RDW 16.4 % (11.5-15.5)
[2017-11-23 04:33] LABS: Platelet Count 41 k/uL (150-450)
[2017-11-23 04:46] LABS: Albumin 3.1 g/dL (3.5-5.0); Calcium 8.1 mg/dL (8.4-10.2); Magnesium 2.5 mg/dL (1.6-2.3); Phosphorus 5.6 mg/dL (2.5-4.5); Potassium 5.2 mmol/L (3.5-5.1); Total Protein 5.4 g/dL (6.3-8.2)
[2017-11-23] MEDS: NOREPINEPHRINE 16 MG in DEXTROSE 5% IN WATER 250 ML IV SCH ×2 (06:55)
[2017-11-23] MEDS: IPRATROPIUM-ALBUTEROL 3 ML NEB INHALATION SCH ×4 (07:07→20:01)
[2017-11-23 07:15] LABS: Glucose,Whole Blood 166 mg/dL (75-99)
--- NOTE | 2017-11-23 08:20 | CDI ---
Last Revision, March 2017 Documentation Clarification Form Date: 11/19/2017 2:34:00 PM From: Yolanda VelezCalvertGARRET, CCDS Admit Date: 11/16/2017 7:31:00 AM Patient Name: Jerry Silva Visit Number: [id number] Discharge Date: ATTENTION: The Clinical Documentation Specialists (CDI) and [facility] Coding Staff appreciate your assistance in clarifying documentation. Please respond to the clarification below the line at the bottom and electronically sign. The CDI & [facility] Coding staff will review the response and follow-up if needed. Please note: Queries are made part of the Legal Health Record. If you have any questions, please contact the author of this message via ITS. Dr. Piter Martel MD 72 yo male, admitted for elective CABG with mitral valve repair. Per the Cardiology progress note on 11/18: "During the night, he had episode of hypotension requiring pressors." Per the 11/22 Pulmonary/Critical Care progress note: "He is having occasional hypotension and subsequent hypertension and based on that the titration of the Levophed is being done." Patients Admitting Diagnosis: Multivessel CAD with mitral valve insufficiency & ischemic cardiomyopathy with severe left ventricular dysfunction. Post-Operative Diagnosis: Same Procedure performed: CABG x4 with Mitral Valve Repair. History/Risk Factors: Chronic systolic heart failure, DM II w/retinopathy & hyperlipidemia. Clinical Indicators: Admission BP 101/43, down to 92/39 postop requiring vasopressors. Treatment: IV Levophed, Routine postop CABG protocol, blood transfusion: FFP, Platelets & PRBCs. In order to accurately reflect this patients severity of illness, please clarify if the post-operative diagnosis of hypotension is: An expected post-procedural or post-surgical condition; Integral to the procedure; Inherent to the procedure; An unexpected post-procedural or post-surgical condition related to surgical care; Other, please specify Unable to determine Please include the significance of the hypotension to the patient's postoperative treatment. Please continue to document in your progress notes and discharge summary in order to capture severity of illness and risk of mortality. Include clinical findings that support your diagnosis. MTDD
[2017-11-23] MEDS ORDERED: METOCLOPRAMIDE 5 MG/ML 2 ML VIAL IVP STA (08:40)
--- NOTE | 2017-11-23 08:43 | XR ---
EXAMINATION TYPE: XR chest 1V portable DATE OF EXAM: 11/23/2017 Comparison: 11/22/2017 Clinical History: 72-year-old male post cardiac surgery Findings: Bilateral chest tubes are in place. Epicardial pacer leads. Median sternotomy wires with post-CABG cl ips and annuloplasty ring. Left PICC tip in the upper right atrium. Heart remains mildly enlarged are a continued diffuse interstitial densities. Small effusions slightly increased with increasing patchy bibasilar opacities. Impression: Cardiomegaly and CHF with worsening interstitial pulmonary edema, now more confluent pulmonary edema in the left greater than right lower lungs.
[2017-11-23] MEDS: SODIUM BICARB 8.4% 50 ML SYR (1 MEQ/ML) IV ONE (08:49)
[2017-11-23] MEDS ORDERED: CALCIUM CHLORIDE 500 MG in SODIUM CHLORIDE 0.9% 50 ML IVPB ONE (09:00)
--- NOTE | 2017-11-23 10:41 | P.PN ---
Subjective Progress Note Date: 11/22/17 This is a pleasant gentleman patient of Dr. Spann, newly established to the office to evaluate shortness of breath, dyspnea on exertion, underwent cardiac cath and found to have ischemic cardiomyopathy with severe LV dysfunction, triple-vessel disease prior to bypass surgery, admitted for bypass surgery and valve repair. He has underlying history of diabetes mellitus type 2, hyperlipidemia, Cardiac cath performed 11/09/2017 shows left main coronary up was calcified, circumflex 95% stenosis in the ostial portion, LAD totally occluded just of to the origin of the large diagonal branch, diagonal branch from the percent stenosis, 70% stenosis in the PDA and PLV severe left ventricle systolic dysfunction and mitral regurgitation He is currently in ICU being prepped for CABG and mitral valve repair on 2017 and has intra-aortic balloon pump done through the right femoral artery. 11/17: Patient is having open-heart surgery today. 11/18: Patient is status post quadruple coronary artery bypass grafting using the left internal mammary artery to the left anterior descending coronary artery, a reverse greater saphenous vein graft from the aorta to the diagonal coronary artery, reverse greater saphenous vein graft from the aorta to the first obtuse marginal coronary artery, a reverse greater saphenous vein graft from the aorta to the posterior descending coronary artery and mitral valve repair. Patient remains in the intensive care unit intubated and on mechanical ventilation currently on CPAP for weaning parameters. He continues to have intra-aortic balloon pump in place which is plan to keep for 1 more day. He has a right, left and mediastinal chest tubes in place draining serosanguineous fluid. Urine output is 50-60 mL per hour. He is also on vasopressors. Hemoglobin A1c is 6.7. 83: Patient remains in the intensive care unit. He is currently off oxygen and pulse oxing. He continues to have all [address] Balloon pump was removed. Urine output has been adequate. White count is normal. Hemoglobin 7.3, INR 1.5, creatinine 0.93, blood sugars are running between 104 and 127. He has been afebrile. Heart rate running in the 90s. Blood pressure is stable with current vasopressors. Pulse ox is 9700% on room air. Patient denies having any chest pain. No abdominal pain. No nausea. 8/4. Patient examined the bedside in the ICU. Currently off oxygen. He is not making enough urine output. Creatinine function has worsened from 0.8-1.2. Hemoglobin 7 this morning status post transfusion 1 unit PRBC. Patient is denies any chest pain, shortness of breath is resting comfortably in the chair. He still continues to have [address] with a AARON drain. Blood sugar between 100-125. 8/5 patient examined bedside in the ICU. Brief episode of atrial fibrillation last night and one dose of IV amiodarone given followed by a maintenance dose Afinitor on 400 mg twice a day. Creatinine increased to 1.8 today. Patient is having minimal urine output with less than 10 mL per hour. Patient may benefit from IV fluids as he has minimal oral intake and has minimal urine output. One bag of 250 mg abdomen given today. Patient received 2 units of PRBCs C yesterday. No bowel movements for the past 3 days. Patient is passing gas. Continue with bowel regimen 11/22: Patient hasn't been noted to have increasing renal numbers with BUN of 66 and creatinine 2.2 and nephrology has been consult did. Patient is also noted to have low urine output and dark urine. He is not eating very much. Patient is more lethargic today. He denies any abdominal pain. Heart rate is controlled in a sinus rhythm. He is currently on oral amiodarone and Lopressor for atrial fibrillation. No anticoagulation due to thrombocytopenia. He is currently off label fed but continued on Primacor. Objective - Vital Signs Vital signs: Vital Signs Temp 97.2 F L 11/21/17 16:00 Pulse 78 11/22/17 11:17 Resp 16 11/22/17 11:00 BP 99/49 11/20/17 12:00 Pulse Ox 99 11/22/17 11:00 Intake & Output 11/21/17 11/22/17 11/22/17 18:59 06:59 18:59 Intake Total 1515.693 801.754 248.921 Output Total 540 590 197 Balance 975.693 211.754 51.921 Weight 77.8 kg Intake: IV 410 544.3 145.2 CO/CI 80 180 20 Lactated Ringers 1,000 ml 240 240 80 @ 20 mls/hr IV .Q24H [facility] Rx#:[id number] Pressure Bags 90 99 36 Primacor 0.1 mcg/kg/min 25.3 9.2 Intake, IV Titration 625.693 57.454 103.721 Amount Albumin Human 5% 250 ml 500 In Empty Bag 1 bag @ 250 mls/hr IVPB ONCE ONE Rx#: [id number] Calcium Chloride 500 mg 50 In Sodium Chloride 0.9% 50 ml @ 200 mls/hr IVPB ONCE ONE Rx#:[id number] Calcium Chloride 500 mg 50 In Sodium Chloride 0.9% 50 ml @ 200 mls/hr IVPB ONCE ONE Rx#:[id number] Insulin Regular 100 unit 11.845 9.616 In Sodium Chloride 0.9% 100 ml @ Per Protocol IV .Q0M [facility] Rx#:[id number] Milrinone-D5w Pmx 20 mg 37.746 In Dextrose/Water 1 100ml .bag @ 0.1 MCG/KG/MIN 2. 33 mls/hr IV .Q24H [facility] Rx #:[id number] Norepinephrine 16 mg In 26.102 47.838 53.721 Dextrose 5% in Water 250 ml @ Titrate IV .Q0M [facility] Rx#:[id number] Oral 480 200 Output: Chest Tube Drainage 370 390 80 left pleural 230 120 30 right pleural 140 270 50 Drainage 0 25 10 Left Calf 0 25 10 Urine 170 175 107 Other: Voiding Method Indwelling Catheter Indwelling Catheter Indwelling Catheter # Bowel Movements 0 ABP, PAP, CO, CI - Last Documented Arterial Blood Pressure 94/48 Pulmonary Artery Pressure 41/16 Cardiac Output 7.0 Cardiac Index 3.6 - Exam General appearance: average body habitus, cooperative, no acute distress - EENT Eyes: anicteric sclerae, EOMI, PERRLA, dentition normal, normal appearance no vision in the left eye blurring of the cornea with spelling ENT: NA/AT, normal oropharynx, extubated - Respiratory Respiratory: bilateral: CTA, negative: diminished, dullness, rales, rhonchi, wheezing, continues to have right pleural, left pleural chest tubes in place. - Cardiovascular Rhythm: Regularly irregular Heart sounds: normal: S1, S2 Abnormal Heart Sounds: no systolic murmur, no diastolic murmur, no rub, no S3 Gallop, no S4 Gallop, no click, no other - Gastrointestinal General gastrointestinal: normal bowel sounds, soft, Fong draining clear marta urine - Integumentary Integumentary: normal, normal turgor - Neurologic Neurologic: Awake, focal deficits (None) - Musculoskeletal Musculoskeletal: gait not assessed, strength equal bilaterally - Labs CBC & Chem 7: 11/23/17 04:00 11/23/17 04:00 Labs: Abnormal Lab Results - Last 24 Hours (Table) 11/21/17 11/21/17 11/21/17 Range/Units 12:22 14:12 16:43 RBC (4.30-5.90) m/uL Hgb (13.0-17.5) gm/dL Hct (39.0-53.0) % RDW (11.5-15.5) % Plt Count (150-450) k/uL Lymphocytes # (Manual) (1.0-4.8) k/uL Carbon Dioxide (22-30) mmol/L BUN (9-20) mg/dL Creatinine (0.66-1.25) mg/dL Glucose (74-99) mg/dL POC Glucose (mg/dL) 129 H 127 H 122 H (75-99) mg/dL Calcium (8.4-10.2) mg/dL Phosphorus (2.5-4.5) mg/dL Magnesium (1.6-2.3) mg/dL Total Bilirubin (0.2-1.3) mg/dL AST (17-59) U/L ALT (21-72) U/L Total Protein (6.3-8.2) g/dL Albumin (3.5-5.0) g/dL 11/21/17 11/21/17 11/21/17 Range/Units 17:26 20:12 22:07 RBC (4.30-5.90) m/uL Hgb (13.0-17.5) gm/dL Hct (39.0-53.0) % RDW (11.5-15.5) % Plt Count (150-450) k/uL Lymphocytes # (Manual) (1.0-4.8) k/uL Carbon Dioxide (22-30) mmol/L BUN (9-20) mg/dL Creatinine (0.66-1.25) mg/dL Glucose (74-99) mg/dL POC Glucose (mg/dL) 112 H 130 H 139 H (75-99) mg/dL Calcium (8.4-10.2) mg/dL Phosphorus (2.5-4.5) mg/dL Magnesium (1.6-2.3) mg/dL Total Bilirubin (0.2-1.3) mg/dL AST (17-59) U/L ALT (21-72) U/L Total Protein (6.3-8.2) g/dL Albumin (3.5-5.0) g/dL 11/21/17 11/22/17 11/22/17 Range/Units 23:54 01:58 04:08 RBC 2.72 L (4.30-5.90) m/uL Hgb 7.4 L (13.0-17.5) gm/dL Hct 24.0 L (39.0-53.0) % RDW 16.5 H (11.5-15.5) % Plt Count 27 L* (150-450) k/uL Lymphocytes # (Manual) 0.77 L (1.0-4.8) k/uL Carbon Dioxide (22-30) mmol/L BUN (9-20) mg/dL Creatinine (0.66-1.25) mg/dL Glucose (74-99) mg/dL POC Glucose (mg/dL) 145 H 155 H (75-99) mg/dL Calcium (8.4-10.2) mg/dL Phosphorus (2.5-4.5) mg/dL Magnesium (1.6-2.3) mg/dL Total Bilirubin (0.2-1.3) mg/dL AST (17-59) U/L ALT (21-72) U/L Total Protein (6.3-8.2) g/dL Albumin (3.5-5.0) g/dL 11/22/17 11/22/17 11/22/17 Range/Units 04:08 04:08 06:18 RBC (4.30-5.90) m/uL Hgb (13.0-17.5) gm/dL Hct (39.0-53.0) % RDW (11.5-15.5) % Plt Count (150-450) k/uL Lymphocytes # (Manual) (1.0-4.8) k/uL Carbon Dioxide 21 L (22-30) mmol/L BUN 66 H (9-20) mg/dL Creatinine 2.22 H (0.66-1.25) mg/dL Glucose 118 H (74-99) mg/dL POC Glucose (mg/dL) 135 H 123 H (75-99) mg/dL Calcium 8.0 L (8.4-10.2) mg/dL Phosphorus 5.1 H (2.5-4.5) mg/dL Magnesium 2.5 H (1.6-2.3) mg/dL Total Bilirubin 2.5 H (0.2-1.3) mg/dL AST 2202 H (17-59) U/L ALT 751 H (21-72) U/L Total Protein 5.4 L (6.3-8.2) g/dL Albumin 3.1 L (3.5-5.0) g/dL Assessment and Plan Plan: (1) Coronary artery disease and moderate mitral valve regurgitation Triple vessel disease noted on cardiac cath agent status post CABG and mitral valve repair on all 11/17/2017. Continue on aspirin, Lipitor, metoprolol, Plavix, and aspirin. Hemoglobin A1c 6.7, insulin drip therapy. ICU commercial agent Dr. Fajardo consult. 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, also accompanied by mitral valvular regurgitation, continue on Lasix, maximize medical treatment, anticipate CBG with possibility of mitral valve repair in the morning 11/17/2017 (4) Hyperlipidemia Patient currently is on statins, and will be titrated to goal of 70 currently on Lipitor 40 mg daily (5) On esomeprazole prophylaxis (6) DVT prophylaxis (7) Steal syndrome, subclavian Carotid Dopplers 11/10/2017 shows no carotid stenosis however there is to and fro flow within the right vertebral artery could reflect manifestation of subclavian steal physiology prior to with continuous flow reversal. Currently asymptomatic continue to monitor (8) Pulmonary hypertension PILAR on 11/10/2017, moderate pulmonary hypertension also shows intact atrial septum with no evidence of [id number] shunt physiology, unable to locate pressures for right ventricular systolic 9. Thrombocytopenia which continues to worsen. Patient is off aspirin, Plavix and Arixtra. Consult with oncology. 10. Acute blood loss anemia with drop in hemoglobin from 10-6.5. Patient is status post multiple blood products. 11. Acute kidney injury. Consult with nephrology. 12. Post op atrial fibrillation, expected outcome of surgery. Patient has been on amiodarone. 13. Elevated liver function tests most likely secondary to hypotension. Continue to monitor closely. Statin is on hold. Discharge plan: To be determined Impression and plan of care have been directed as dictated by the signing physician. Amy Renteria nurse practitioner acting as scribe for signing physician.
--- NOTE | 2017-11-23 11:08 | P.PN ---
Subjective Progress Note Date: 11/23/17 Principal diagnosis: Triple-vessel coronary artery disease. Severe ischemic cardiomyopathy. Moderate mitral valve regurgitation. Mild tricuspid valve regurgitation. Diabetes mellitus with preoperative hemoglobin A1c 6.7%. Hyperlipidemia. Moderate to severe restrictive lung disease with preoperative FEV1 43% of predicted. Evidence of diffuse calcific coronary artery disease. 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 Previous tobacco dependence. POD #7 placement of preoperative intra-aortic balloon pump POD #6 quadruple coronary artery bypass grafting using the left internal mammary artery to the left anterior descending artery, reverse saphenous vein graft from the aorta to the diagonal artery, reverse saphenous vein graft from the aorta to the first obtuse marginal artery, reverse saphenous vein graft from the aorta to the posterior descending artery. Mitral valve repair using a complete ring annuloplasty with a 30 mm Kapoor IMR ring. Exclusion of the left atrial appendage using a 35 mm Atriclip. Intraoperative transesophageal echocardiogram and epi-aortic scanning. Intraoperative graft flow measurements using the Earnixstim system. Post operative normocytic, normochromic anemia, an expected outcome of surgery. Postoperative thrombocytopenia, an expected outcome of surgery. Postoperative atrial fibrillation, an expected outcome of surgery. Postoperative elevated transaminases, an unexpected outcome of surgery, likely secondary to low flow state post surgery. Postoperative acute kidney injury, an unexpected outcome of surgery, likely secondary to low flow state post surgery. Patient is currently sitting up in a recliner in no acute distress. Mentation minus he is not doing as well as he did yesterday. He was only able to tell me his name and that he is in the hospital after much coaxing this morning, he was unable to tell me the year or what procedure he had done. He is not following commands and is unwilling to do incentive spirometry. Currently is still on Primacor, and requiring levo for blood pressure support. His platelet count improved slightly this morning, kidney function is worsening, liver function has improved. Echo completed yesterday demonstrating EF 30-35%, moderate to severe TR, hypokinetic LV wall motion, mild to moderate enlargement of the right ventricle, and mild pulmonary hypertension. Nephrology was consulted yesterday and patient was initially given IV fluid bolus then given IV Lasix and placed on Lasix drip with improvement in urine output. Objective - Vital Signs Vital signs: Vital Signs Temp 97.7 F 11/23/17 08:00 Pulse 115 H 11/23/17 09:00 Resp 12 11/23/17 09:00 BP 95/48 11/23/17 02:00 Pulse Ox 99 11/23/17 09:00 Intake & Output 11/22/17 11/23/17 11/23/17 18:59 06:59 18:59 Intake Total 968.946 684.292 155.4 Output Total 632 517 280 Balance 336.946 167.292 -124.6 Weight 77.8 kg 79.1 kg Intake: IV 417.6 446 155.4 CO/CI 60 Calcium Chloride 500 mg 50 In Sodium Chloride 0.9% 50 ml @ 200 mls/hr IVPB ONCE ONE Rx#:[id number] Dextrose 5% in Water 100 100 ml @ 618 mls/hr IV .Q10M PRN with Amiodarone 150 mg Rx#:[id number] Furosemide 250 mg In 90 40 Sodium Chloride 0.9% 225 ml @ 10 MG/HR 10 mls/hr IVP .Q24H [facility] Rx#: [id number] Lactated Ringers 1,000 ml 240 220 50 @ 20 mls/hr IV .Q24H [facility] Rx#:[id number] Norepinephrine 16 mg In 9.4 Dextrose 5% in Water 250 ml @ Titrate IV .Q0M [facility] Rx#:[id number] Pressure Bags 90 36 6 Primacor 0.1 mcg/kg/min 27.6 Intake, IV Titration 431.346 118.292 Amount Calcium Chloride 500 mg 50 In Sodium Chloride 0.9% 50 ml @ 200 mls/hr IVPB ONCE ONE Rx#:[id number] Milrinone-D5w Pmx 20 mg 65.978 In Dextrose/Water 1 100ml .bag @ 0.1 MCG/KG/MIN 2. 33 mls/hr IV .Q24H [facility] Rx #:[id number] Norepinephrine 16 mg In 65.368 118.292 Dextrose 5% in Water 250 ml @ Titrate IV .Q0M [facility] Rx#:[id number] Phytonadione 5 mg In 50 Sodium Chloride 0.9% 50 ml @ 100 mls/hr IVPB ONCE STA Rx#:[id number] Sodium Chloride 0.9% 250 200 ml @ 999 mls/hr IV .Q16M [facility] Rx#:[id number] Oral 120 120 Output: Chest Tube Drainage 380 210 left pleural 140 100 right pleural 240 110 Drainage 10 Left Calf 10 Urine 242 307 280 Other: Voiding Method Indwelling Catheter Indwelling Catheter # Bowel Movements 0 ABP, PAP, CO, CI - Last Documented Arterial Blood Pressure 106/54 Pulmonary Artery Pressure 40/15 Cardiac Output 5.0 Cardiac Index 2.7 - Constitutional Constitutional Comment(s): Somewhat cooperative, no acute distress, denies pain General appearance: Present: no acute distress - Respiratory Details: Lungs sounds diminished bilaterally with fine crackles in the bases, left greater than right. Respirations even, nonlabored. Currently on 2 L nasal cannula with oxygen saturation 97%. Unable/unwilling to use incentive spirometry. Left pleural chest tube to continuous wall suction, 30 mL documented serosanguineous drainage overnight, 300 mL in 24 hours. Right pleural chest tube to continuous wall suction, 30 mL documented serosanguineous drainage overnight, 350 mL in 24 hours. No air leaks present. - Cardiovascular Details: S1, S2 present. Regular, tachycardic rate and rhythm, atrial flutter on monitor. Sternum stable. A/V epicardial pacemaker wires present, grounded. Palpable peripheral pulses bilaterally. Bilateral thigh, scrotal edema present. Right radial arterial line, left brachial PICC line present. Levo being weaned as tolerated, blood pressure very labile with levo dose anywhere from 2-14 g/kg. Heart hugger in place with patient demonstrating appropriate use. Antiembolism stockings, SCDs present. - Gastrointestinal Gastrointestinal Comment(s): Abdomen soft, nontender, nondistended. Active bowel sounds present 4 quadrants. Tolerating minimal clear liquids. Positive flatus, negative bowel movement. - Genitourinary Genitourinary Comment(s): Fong present draining clear, yellow urine. Urine output has picked up with Lasix IV, was 50-75 mL per hour on 10 mg IV Lasix, now 35 mg and hour on 5 mg IV Lasix. - Integumentary Integumentary Comment(s): Skin warm and dry with evidence of good perfusion. Sternal incision well approximated and covered with dry intact dressing. Left lower extremity EVH site well approximated. - Neurologic Neurologic: Present: CNII-XII intact - Musculoskeletal Musculoskeletal: Present: generalized weakness, strength equal bilaterally - Psychiatric Psychiatric Comment(s): Alert and oriented to person and place with much coaxing. Cannot or will not state the appropriate year. Patient has a very flat affect and is not following commands well. - Allied health notes Allied health notes reviewed: nursing - Labs CBC & Chem 7: 11/23/17 04:00 11/23/17 04:00 Labs: Abnormal Lab Results - Last 24 Hours (Table) 11/22/17 11/22/17 11/22/17 Range/Units 12:37 17:31 18:20 WBC (3.8-10.6) k/uL RBC (4.30-5.90) m/uL Hgb (13.0-17.5) gm/dL Hct (39.0-53.0) % RDW (11.5-15.5) % Plt Count (150-450) k/uL Neutrophils # (1.3-7.7) k/uL Lymphocytes # (1.0-4.8) k/uL PT (9.0-12.0) sec INR (<1.2) Fibrinogen 522 H (200-500) mg/dL ABG pCO2 (35-45) mmHg ABG HCO3 (21-25) mmol/L ABG Total CO2 (19-24) mmol/L ABG O2 Saturation (94-97) % Sodium (137-145) mmol/L Potassium (3.5-5.1) mmol/L Carbon Dioxide (22-30) mmol/L BUN (9-20) mg/dL Creatinine (0.66-1.25) mg/dL Glucose (74-99) mg/dL POC Glucose (mg/dL) 132 H 140 H (75-99) mg/dL Calcium (8.4-10.2) mg/dL Phosphorus (2.5-4.5) mg/dL Magnesium (1.6-2.3) mg/dL Total Bilirubin (0.2-1.3) mg/dL AST (17-59) U/L ALT (21-72) U/L Total Protein (6.3-8.2) g/dL Albumin (3.5-5.0) g/dL Urine Protein (Negative) Urine Blood (Negative) Ur Leukocyte Esterase (Negative) Urine RBC (0-5) /hpf Urine WBC (0-5) /hpf Hyaline Casts (0-2) /lpf Urine Mucus (None) /hpf Urine Sperm (None) /hpf 11/22/17 11/22/17 11/23/17 Range/Units 20:10 20:32 00:05 WBC (3.8-10.6) k/uL RBC (4.30-5.90) m/uL Hgb (13.0-17.5) gm/dL Hct (39.0-53.0) % RDW (11.5-15.5) % Plt Count (150-450) k/uL Neutrophils # (1.3-7.7) k/uL Lymphocytes # (1.0-4.8) k/uL PT (9.0-12.0) sec INR (<1.2) Fibrinogen (200-500) mg/dL ABG pCO2 30 L (35-45) mmHg ABG HCO3 17 L (21-25) mmol/L ABG Total CO2 18 L (19-24) mmol/L ABG O2 Saturation 98.5 H (94-97) % Sodium (137-145) mmol/L Potassium (3.5-5.1) mmol/L Carbon Dioxide (22-30) mmol/L BUN (9-20) mg/dL Creatinine (0.66-1.25) mg/dL Glucose (74-99) mg/dL POC Glucose (mg/dL) 146 H (75-99) mg/dL Calcium (8.4-10.2) mg/dL Phosphorus (2.5-4.5) mg/dL Magnesium (1.6-2.3) mg/dL Total Bilirubin (0.2-1.3) mg/dL AST (17-59) U/L ALT (21-72) U/L Total Protein (6.3-8.2) g/dL Albumin (3.5-5.0) g/dL Urine Protein 2+ H (Negative) Urine Blood Large H (Negative) Ur Leukocyte Esterase Moderate H (Negative) Urine RBC >182 H (0-5) /hpf Urine WBC 37 H (0-5) /hpf Hyaline Casts 76 H (0-2) /lpf Urine Mucus Moderate H (None) /hpf Urine Sperm Many H (None) /hpf 11/23/17 11/23/17 11/23/17 Range/Units 02:14 04:00 04:00 WBC 12.0 H (3.8-10.6) k/uL RBC 2.63 L (4.30-5.90) m/uL Hgb 7.4 L (13.0-17.5) gm/dL Hct 23.1 L (39.0-53.0) % RDW 16.4 H (11.5-15.5) % Plt Count 41 L* D (150-450) k/uL Neutrophils # 10.0 H (1.3-7.7) k/uL Lymphocytes # 0.6 L (1.0-4.8) k/uL PT (9.0-12.0) sec INR (<1.2) Fibrinogen (200-500) mg/dL ABG pCO2 (35-45) mmHg ABG HCO3 (21-25) mmol/L ABG Total CO2 (19-24) mmol/L ABG O2 Saturation (94-97) % Sodium 134 L (137-145) mmol/L Potassium 5.2 H (3.5-5.1) mmol/L Carbon Dioxide 19 L (22-30) mmol/L BUN 89 H* (9-20) mg/dL Creatinine 2.30 H (0.66-1.25) mg/dL Glucose 168 H (74-99) mg/dL POC Glucose (mg/dL) 186 H (75-99) mg/dL Calcium 8.1 L (8.4-10.2) mg/dL Phosphorus 5.6 H (2.5-4.5) mg/dL Magnesium 2.5 H (1.6-2.3) mg/dL Total Bilirubin 3.0 H (0.2-1.3) mg/dL AST 1470 H (17-59) U/L ALT 721 H (21-72) U/L Total Protein 5.4 L (6.3-8.2) g/dL Albumin 3.1 L (3.5-5.0) g/dL Urine Protein (Negative) Urine Blood (Negative) Ur Leukocyte Esterase (Negative) Urine RBC (0-5) /hpf Urine WBC (0-5) /hpf Hyaline Casts (0-2) /lpf Urine Mucus (None) /hpf Urine Sperm (None) /hpf 11/23/17 11/23/17 Range/Units 04:00 07:13 WBC (3.8-10.6) k/uL RBC (4.30-5.90) m/uL Hgb (13.0-17.5) gm/dL Hct (39.0-53.0) % RDW (11.5-15.5) % Plt Count (150-450) k/uL Neutrophils # (1.3-7.7) k/uL Lymphocytes # (1.0-4.8) k/uL PT 22.5 H (9.0-12.0) sec INR 2.5 H (<1.2) Fibrinogen (200-500) mg/dL ABG pCO2 (35-45) mmHg ABG HCO3 (21-25) mmol/L ABG Total CO2 (19-24) mmol/L ABG O2 Saturation (94-97) % Sodium (137-145) mmol/L Potassium (3.5-5.1) mmol/L Carbon Dioxide (22-30) mmol/L BUN (9-20) mg/dL Creatinine (0.66-1.25) mg/dL Glucose (74-99) mg/dL POC Glucose (mg/dL) 166 H (75-99) mg/dL Calcium (8.4-10.2) mg/dL Phosphorus (2.5-4.5) mg/dL Magnesium (1.6-2.3) mg/dL Total Bilirubin (0.2-1.3) mg/dL AST (17-59) U/L ALT (21-72) U/L Total Protein (6.3-8.2) g/dL Albumin (3.5-5.0) g/dL Urine Protein (Negative) Urine Blood (Negative) Ur Leukocyte Esterase (Negative) Urine RBC (0-5) /hpf Urine WBC (0-5) /hpf Hyaline Casts (0-2) /lpf Urine Mucus (None) /hpf Urine Sperm (None) /hpf - Imaging and Cardiology Chest x-ray: report reviewed, image reviewed Assessment and Plan (1) Congestive heart failure with cardiomyopathy Current Visit: Yes Status: Chronic Code(s): I50.9 - HEART FAILURE, UNSPECIFIED; I42.9 - CARDIOMYOPATHY, UNSPECIFIED SNOMED Code(s): 61534179 (2) Ischemic cardiomyopathy Current Visit: Yes Status: Chronic Code(s): I25.5 - ISCHEMIC CARDIOMYOPATHY SNOMED Code(s): 385729765 (3) Coronary artery disease Current Visit: Yes Status: Chronic Code(s): I25.10 - ATHSCL HEART DISEASE OF [place] CORONARY ARTERY W/O ANG PCTRS SNOMED Code(s): 32309491 (4) Diabetes mellitus Current Visit: Yes Status: Chronic Code(s): E11.9 - TYPE 2 DIABETES MELLITUS WITHOUT COMPLICATIONS SNOMED Code(s): 25223322 (5) Hyperlipidemia Current Visit: Yes Status: Chronic Code(s): E78.5 - HYPERLIPIDEMIA, UNSPECIFIED SNOMED Code(s): 40464638 (6) Mitral regurgitation Current Visit: Yes Status: Chronic Code(s): I34.0 - NONRHEUMATIC MITRAL ( VALVE) INSUFFICIENCY SNOMED Code(s): 36968873 (7) History of myocardial infarction Current Visit: No Status: Resolved Code(s): I25.2 - OLD MYOCARDIAL INFARCTION SNOMED Code(s): 069594462 (8) Tobacco dependence in remission Current Visit: No Status: Resolved Code(s): F17.201 - NICOTINE DEPENDENCE, UNSPECIFIED, IN REMISSION SNOMED Code(s): 729139880 Plan: 1. Reinstitute low-dose aspirin. Continue to hold Plavix, and Arixtra. Per hematology vitamin K 5 mg IV given yesterday, would give platelets to keep platelet count greater than 50,000 when restarting Plavix. Monitor patient for bleeding. 2. Continue beta michelle. Will increase beta michelle when able. RN instructed to give despite pressor use. 3. Statin discontinued secondary to elevated transaminases. Will restart when transaminases return to normal. 4. Continue amiodarone for A. fib prophylaxis. Decreased to 200 mg twice daily 5. Wean levo as tolerated. Continue Primacor at 0.1 mcg/kg/min. 6. Will give half amp calcium chloride, 1 amp sodium bicarb IV today. 7. Nephrology consulted for acute kidney injury. Patient currently on continuous IV Lasix, was on 10 mg/h but decreased to 5 mg/h this morning per Dr. Martel. Continue Midodrin for now. 8. Keep Fong catheter for strict accurate intake and output. 9. Wean O2 as tolerated. Encourage incentive spirometry use 10 times every hour while awake. 10. Will monitor daily labs and x-rays. HIT panel sent. Lactic acid sent, currently 1.5. Will repeat this afternoon. 11. Pain control with current medication regimen. 12. Ativan discontinued. No sedative medication. May use 1:1 sitter if necessary. 13. Zoloft added for depression. Reorient patient frequently. 14. GI/DVT prophylaxis. 15. Bronchodilators per pulmonology. 16. Diabetic management per primary care service. 17. Patient to remain in the intensive care unit. 18. More recommendations to follow. Time with Patient: Greater than 30
--- NOTE | 2017-11-23 11:21 | PN ---
PROGRESS NOTE This patient's medical records were reviewed. This patient is status post coronary artery bypass surgery and mitral valve repair. The patient's condition still remains critical. Patient was given bolus of fluid yesterday without any significant improvement and subsequently patient has been started on Lasix drip. At present, patient is putting out about 30 to 50 mL of urine per hour. He appears to be more lethargic today. Patient intermittently still requires Levophed and currently he is on 5 to 6 mcg of Levophed. Heart rate is 120. Patient appears to be in atrial flutter. Blood pressure is 99/50 mmHg. First and second heart sounds are heard. Jugular venous pressure remains elevated. Liver is palpable below the right costal margin. Patient's INR is 2.5 with hemoglobin 7.4, creatinine is 2.3, BUN is 89. Patient's AST and ALT are improving. Patient's echocardiogram reviewed which shows evidence of moderate to severely impaired left ventricular systolic function. The right ventricle is enlarged and it is the right ventricular function is also severely impaired. Patient has moderate to severe tricuspid regurgitation. ASSESSMENT AND PLAN: At present, patient appears to be in biventricular failure. Patient elevated liver enzymes are suggestive for hepatic congestion and elevated right-sided pressures I would recommend to continue the patient on Lasix drip as well as Primacor drip. MMODL / IJN: [id number] /
[2017-11-23 12:08] LABS: Glucose,Whole Blood 165 mg/dL (75-99)
--- NOTE | 2017-11-23 12:29 | P.PN ---
Subjective Progress Note Date: 11/23/17 Principal diagnosis: Symptomatic multivessel coronary artery disease, status post four-vessel coronary artery bypass grafting, and mitral valve repair, postop day 6 Mr. Silva is a 72-year-old white male patient of Dr. Wong, who presented today on 11/16/2017 for elective placement of intra-aortic balloon pump in preparation for three-vessel coronary artery bypass graft surgery and mitral valve repair for severe mitral valve insufficiency and ischemic cardiomyopathy with severely impaired systolic dysfunction. Surgery is scheduled for tomorrow 11/17/[address] Borjas. Patient has been having progressive exertional dyspnea for the last 2 years, and last 3 months patient started experiencing severe limitation of his exercise capacity, becoming quite dyspneic while climbing a flight of stairs. Patient denied any chest pain, palpitations, syncopal episodes. Patient started experiencing bilateral lower extremity edema , and he presented to his PCP for evaluation of his symptoms. Patient has been quite active in sports during his lifetime, in swimming and running. 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 Does not have any chronic pulmonary conditions, has a remote history of smoking, quit 40 years ago , smoked a pack a day for about 5 years. No marijuana use, no EtOH, or recreational drugs. 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 Patient had a heart catheterization on 11/09/2017 which showed calcification of left main coronary artery, with mild to moderate atherosclerotic plaque in the ostial portion, circumflex with a 95% stenosis, complete occlusion of the LAD just off to the origin of the large diagonal branch, and 70% stenosis of the diagonal branch. Diffuse disease in the RCA, with a 70% stenosis at the bifurcation into PDA and PLV, and significant disease in the PDA and PLV. All the vessels were noted to be irregular, ectatic and in places aneurysmal. LVEDP was 31 mm, without significant gradient across the aortic valve. PILAR on 11/10/2017 showed ischemic cardiomyopathy with severe left ventricular systolic dysfunction, akinetic inferior wall and the septum, hypokinetic anterior wall. Moderate pulmonary hypertension and moderate mitral regurgitation. Patient was recommended surgical intervention for his symptoms, and he opted for three- vessel coronary artery bypass grafting and mitral valve repair tomorrow. Bedside spirometry was reviewed and showed FEV1 of 1.35 L or 43% of predicted, FVC of 1.65 L or 38% of predicted, consistent with severe restriction. Preop chest x-ray from 11/10/2017 showed mild cardiomegaly with small to moderate- sized right greater than the left pleural effusions and associated compressive atelectasis. Patient is seen in the intensive care, resting in bed, room air pulse ox is 92-97%, he denies any dyspnea, he is afebrile, intra-aortic balloon pump is in place, via right femoral artery. He is currently on 1:1 IABP frequency, with augmented diastolic pressure of 131 mmHg. Distal pulses are intact, sensory status is intact. Fong catheter is in place, patient is nonoliguric. Radial pulses are intact. Patient is on heparin drip at 12 u/kg/ hr. No other drips. He is on oral Lasix at 40 mg daily. Currently resting in bed, in no acute distress. On 11/18/2017 the patient is being seen for a follow-up. Note that he had a prolonged surgery which involved a 4-vessel bypass surgery and mitral valve repair. The patient arrived to the intensive care unit around 7 PM in the evening. He was on an intra-aortic balloon pump. He was also inotropes. Chest x-ray was reviewed. The patient adequate expansion of both lungs. The patient a mediastinal chest tube in the right and left pleural chest tubes. Output from the chest as was considerably high especially from the mediastinal chest tube. Overnight the patient required a total of 4 units of packed RBCs and 4 units of 4 shows and plasma and 2 units of platelets and he also received DDAVP. He received also IV fluids in the form of crystalloids and colloids. The output from the sun chest gradually improved and earlier this morning it was only putting out 20 mL an hour and currently Dopplers somewhere between 20- 40 mL an hour. As for the right pleural chest tubes output initially was initially low and then picked up and it's up to 60-80 mL an hour. The left pleural chest tube is putting out 50 mL an hour. The patient is currently on norepinephrine infusion at 7 g per KG pigmented minutes. He is also on methadone at 0.3 g per KG pigmented minutes. He is also on vasopressin and dopamine. He is also on intra-aortic balloon pump with one-to-one augmentation. The augmented blood pressure is 91. Attempts to cut down the augmentation through the intra-aortic balloon pump has failed as the patient is pressure urine output. In terms of his respiratory status, the patient is a mechanical ventilator. He is currently on assist control mode of ventilation at the rate of 12 with an FiO2 of 4040% and a PEEP of 5 and FiO2 has been drop down to 40% and tidal volumes of 500. The morning blood gases showed a pH of 7.39 with a pCO2 of 40 and pO2 of 217, and note that this was done and FiO2 of 100%. His current FiO2 is down to 40%. Renal function stable with a creatinine of 0.8. Rest of the electrodes are all within normal limits. Correlation profile is within normal limits. Most recent hemoglobin is at 7.3. The patient was sedated with Diprivan and the patient is currently off Diprivan and when it parameters are being checked. Urine output is in order of 30-40 mL an hour over the past 2 hours. His most recent blood sugar is at 137. On 11/19/2017 and seeing this patient for a follow-up. This patient is status post four-vessel bypass surgery and mitral valve replacement. Is postop day # 2. Note that the patient was extubated yesterday without any major difficulties and currently is on oxygen by nasal cannula 2 L/m. The chest x- ray shows adequate expansion of both lungs. There is some pulmonary vessel congestion. The patient has all of these chest tubes in place. The [place]-Wendie catheter is also in place. As far as his breathing status, is not having any respiratory difficulties. Sternum stable clean and intact. The chest tube output over the past 12 hours was 20 mL from the mediastinum, to 90 mL from the right pleural and for 90 mL from the left poor. His most recent hemodynamic parameters shows a cardiac output of 4.8 with an index of 2.5. He has elevated intra-aortic balloon pump was a one-to-one augmentation throughout the night and currently is down to 1-2 augmentation and his augmented mean arterial blood pressures around 72. He is producing adequate amount of urine output. As far as pressors, the patient is on a combination of Primacor at 0.2 g, norepinephrine which is ranging between 1 and 6 g, dopamine at 2.5 Pedro grams per KG pigmented, and vasopressin at physiologic dose of 0.02 units per hour. He is also on lactated Ringer at 40 mL an hour and the patient is currently off insulin drip. No significant events overnight. Is afebrile. He is awake and alert. Moving all 4 extremities and he has adequate pulses in 4 extremities. On 11/20/2017, the patient is being seen in follow-up. The patient is still in the intensive care unit postop day #3. He has done very well post extubation. The intra-aortic balloon pump was discontinued. Hemodynamically, he still requiring pressors and currently the patient is on levo fed at around 5 g per KG pigmented. He is on milrinone at 0.2 micrograms per KG and he is also on vasopressin at physiologic dose of 0.03 units an hour. The patient is off dopamine. Overall cardiac index is somewhat between 2.2 and 2.3. PA diastolic pressures around 17. Urine output dropped over the past hour down to 50 mL an hour. The patient was receiving a unit of packed RBC. Output from the chest tube has been 700 mL on the left pleural over the past 24 hours is 700 mL on the left pleural 500 mL on the right pleural and there is no mediastinal chest tube that was pulled out yesterday. The patient is still on insulin drip for blood sugar control. He is awake and alert. He is feeling very weak and lethargic. He answers questions and follows commands. Trying to use incentive spirometer. The surgical wound site is dry clean and intact. Hemoglobin today is at 7.0. Rated count is at 76. Creatinine is stable at 1.2. Overnight the patient went into to establish with rapid ventricular response. The patient was given to loading dose of amiodarone. Currently is on a maintenance and eye doctor maintenance down to 0.5 mg/m. Around 1 AM this morning the patient converted back to normal sinus rhythm. On 11/21/2017, I'm seeing this patient for a follow-up. Is postop day #4. He remains extubated on 2 L of oxygen by nasal cannula. Intra-aortic balloon pump has been discontinued. The patient has the [place]-Wendie catheter in place. PA pressures are 33/14. The cardiac index is at 2.4. The patient is on milrinone at 0.1. The patient is also on levo fed and the dose varies between 2-50 mics per KG per minute knowing that the patient is a very labile blood pressure. He is having occasional hypotension and subsequent hypertension and based on that the titration of the levo fed is being done. The patient has developed an acute kidney injury. Creatinine is up to 1.8. He also developed an acute liver injury, probably a shock liver due to low flow state. The patient was receiving diuretics yesterday and currently diuretics on hold. He received 2 units of packed RBC yesterday. He also received 5% albumin, 250 mL yesterday. Urine output is no other of 10 mL an hour. He has a pleural chest tube on the right and on the left, the output from the right is 350 over the past 24 hours unless put out 400 mL over the past 24 hours. Overnight, the patient has short runs of paroxysmal atrial fibrillation and current his rhythm is sinus. Amiodarone is at the maintenance of 400 mg by mouth twice a day. The hemoglobin is at 7.7. Chest x-ray shows some mild increase in pulmonary vascular markings. Chest tubes are in good location. There is no evidence of pneumothorax. Limited bibasilar infiltrates seen and small effusions. He is awake. He is alert. Aspirin was kept on 2 baby dose as the patient developed thrombocytopenia. He is still on Plavix. He is on Arixtra for DVT prophylaxis Reevaluated on 11/22/2017, patient is postoperative day #5, remains on nasal cannula at 2 L, in atrial flutter, receiving amiodarone to control his atrial flutter and possibly convert him. patient is on norepinephrine, being titrated to possibly discontinue if possible. His blood pressure seems to be labile, but at least at present seems to be stable. Renal functioning is getting worse , patient is to be seen by nephrology on consultation. Labs today showed hemoglobin of 7.4 WBC count of 8.6 platelets are low at 27,000. BUN is 66 creatinine 2.22. Liver enzymes were also noted to be elevated, however improving in the last 24 hours but remain elevated. Chest x-ray showed minimal atelectasis no evidence of pneumothorax. On 11/23/2017 patient is seen again in the intensive care unit. His night he had episode of confusion, and agitation for which Ativan was given. Currently he sitting up in the chair, in no acute distress, pulse ox on 2 L per nasal cannula is 96%, vital signs are stable, patient is afebrile. Remains tachycardic in atrial flutter, has heart rate between 1:15 and 120 BPM. His chest x-ray has been reviewed by Dr. Harmon and shows a rotated film, but mostly atelectatic changes, no pulmonary edema, we disagree with the interpretation by radiologist. He remains on milrinone at 0.1 mics per kilo per minute, small dose levo fed at 5 mics per minute, and Lasix drip at 5 mg per hour. She received a small fluid bolus yesterday per nephrology with no significant improvement in urine output. This decision was made to start patient on IV Lasix, currently urine output is ranging from 35-75 ML per hour. No significant swelling in bilateral lower extremities, sounds are positive for minimal crackles over left posterior base, patient appears to be intravascularly dry. His labs were reviewed, shows the PVC of 12.0, hemoglobin 7.4, patient will receive 1 unit of packed red blood cells. INR of 2.5, sodium of 134, potassium is 5.2, B1 is 89 and creatinine is 2.3. LFTs are trending down. Patient's incentive spirometry use has been poor. Patient has left pleural chest tube to continuous wall suction, and there has been 30 mL of serosanguineous drainage overnight, 300 mL in the last 24 hours. Right pleural chest tube with 30 amount of serosanguineous drainage overnight and 350 ML in last 24 hours, no air leak present. Objective - Vital Signs Vital signs: Vital Signs Temp 97.7 F 11/23/17 08:00 Pulse 120 H 11/23/17 11:53 Resp 29 H 11/23/17 11:00 BP 95/48 11/23/17 02:00 Pulse Ox 98 11/23/17 11:00 Intake & Output 11/22/17 11/23/17 11/23/17 18:59 06:59 18:59 Intake Total 968.946 684.292 197.6 Output Total 632 517 415 Balance 336.946 167.292 -217.4 Weight 77.8 kg 79.1 kg 79.1 kg Intake: IV 417.6 446 197.6 CO/CI 60 Calcium Chloride 500 mg 50 In Sodium Chloride 0.9% 50 ml @ 200 mls/hr IVPB ONCE ONE Rx#:[id number] Dextrose 5% in Water 100 100 ml @ 618 mls/hr IV .Q10M PRN with Amiodarone 150 mg Rx#:[id number] Furosemide 250 mg In 90 50 Sodium Chloride 0.9% 225 ml @ 10 MG/HR 10 mls/hr IVP .Q24H [facility] Rx#: [id number] Lactated Ringers 1,000 ml 240 220 70 @ 20 mls/hr IV .Q24H [facility] Rx#:[id number] Norepinephrine 16 mg In 21.6 Dextrose 5% in Water 250 ml @ Titrate IV .Q0M [facility] Rx#:[id number] Pressure Bags 90 36 6 Primacor 0.1 mcg/kg/min 27.6 Intake, IV Titration 431.346 118.292 Amount Calcium Chloride 500 mg 50 In Sodium Chloride 0.9% 50 ml @ 200 mls/hr IVPB ONCE ONE Rx#:[id number] Milrinone-D5w Pmx 20 mg 65.978 In Dextrose/Water 1 100ml .bag @ 0.1 MCG/KG/MIN 2. 33 mls/hr IV .Q24H [facility] Rx #:[id number] Norepinephrine 16 mg In 65.368 118.292 Dextrose 5% in Water 250 ml @ Titrate IV .Q0M [facility] Rx#:[id number] Phytonadione 5 mg In 50 Sodium Chloride 0.9% 50 ml @ 100 mls/hr IVPB ONCE STA Rx#:[id number] Sodium Chloride 0.9% 250 200 ml @ 999 mls/hr IV .Q16M ONE Rx#:[id number] Oral 120 120 Output: Chest Tube Drainage 380 210 left pleural 140 100 right pleural 240 110 Drainage 10 Left Calf 10 Urine 242 307 415 Other: Voiding Method Indwelling Catheter Indwelling Catheter Indwelling Catheter # Bowel Movements 0 0 ABP, PAP, CO, CI - Last Documented Arterial Blood Pressure 132/65 Pulmonary Artery Pressure 40/15 Cardiac Output 5.0 Cardiac Index 2.7 - Exam GENERAL EXAM: Revealed a 72-year-old white male in no distress. HEAD: Normocephalic/atraumatic. Presently on 2 L nasal cannula. EYES: Normal reaction of pupils, equal size. Conjunctiva pink, sclera white. NOSE: Clear with pink turbinates. THROAT: No erythema or exudates. NECK: No masses, no JVD, no thyroid enlargement, no adenopathy. CHEST: No chest wall deformity. Symmetrical expansion. Breath sounds are equal and symmetrical. Sternum stable clean and intact. Left pleural and right pleural chest tubes with small amount of serosanguineous drainage. LUNGS: Equal air entry with minimal crackles at the left lower base, no rhonchi , no wheezes CVS: Irregular rate and rhythm, normal S1 and S2, no gallops, no rubs, systolic murmur at the apex. Adequate pulses in the lower extremities bilaterally ABDOMEN: Soft, nontender. No hepatosplenomegaly, normal bowel sounds, no guarding or rigidity. EXTREMITIES: No clubbing, no edema, no cyanosis, 1+ pulses and upper and lower extremities. MUSCULOSKELETAL: Muscle strength and tone normal. SPINE: No scoliosis or deformity SKIN: No rashes CENTRAL NERVOUS SYSTEM: Awake and alert and following commands and answer questions appropriately.. - Labs CBC & Chem 7: 11/23/17 04:00 11/23/17 04:00 Labs: Abnormal Lab Results - Last 24 Hours (Table) 11/20/17 11/22/17 11/22/17 Range/Units 06:00 12:37 17:31 WBC (3.8-10.6) k/uL RBC (4.30-5.90) m/uL Hgb (13.0-17.5) gm/dL Hct (39.0-53.0) % RDW (11.5-15.5) % Plt Count (150-450) k/uL Neutrophils # (1.3-7.7) k/uL Lymphocytes # (1.0-4.8) k/uL PT (9.0-12.0) sec INR (<1.2) Fibrinogen (200-500) mg/dL ABG pCO2 (35-45) mmHg ABG HCO3 (21-25) mmol/L ABG Total CO2 (19-24) mmol/L ABG O2 Saturation (94-97) % Sodium (137-145) mmol/L Potassium (3.5-5.1) mmol/L Carbon Dioxide (22-30) mmol/L BUN (9-20) mg/dL Creatinine (0.66-1.25) mg/dL Glucose (74-99) mg/dL POC Glucose (mg/dL) 132 H 140 H (75-99) mg/dL Calcium (8.4-10.2) mg/dL Phosphorus (2.5-4.5) mg/dL Magnesium (1.6-2.3) mg/dL Total Bilirubin (0.2-1.3) mg/dL AST (17-59) U/L ALT (21-72) U/L Total Protein (6.3-8.2) g/dL Albumin (3.5-5.0) g/dL Urine Protein (Negative) Urine Blood (Negative) Ur Leukocyte Esterase (Negative) Urine RBC (0-5) /hpf Urine WBC (0-5) /hpf Hyaline Casts (0-2) /lpf Urine Mucus (None) /hpf Urine Sperm (None) /hpf Crossmatch See Detail 11/22/17 11/22/17 11/22/17 Range/Units 18:20 20:10 20:32 WBC (3.8-10.6) k/uL RBC (4.30-5.90) m/uL Hgb (13.0-17.5) gm/dL Hct (39.0-53.0) % RDW (11.5-15.5) % Plt Count (150-450) k/uL Neutrophils # (1.3-7.7) k/uL Lymphocytes # (1.0-4.8) k/uL PT (9.0-12.0) sec INR (<1.2) Fibrinogen 522 H (200-500) mg/dL ABG pCO2 (35-45) mmHg ABG HCO3 (21-25) mmol/L ABG Total CO2 (19-24) mmol/L ABG O2 Saturation (94-97) % Sodium (137-145) mmol/L Potassium (3.5-5.1) mmol/L Carbon Dioxide (22-30) mmol/L BUN (9-20) mg/dL Creatinine (0.66-1.25) mg/dL Glucose (74-99) mg/dL POC Glucose (mg/dL) 146 H (75-99) mg/dL Calcium (8.4-10.2) mg/dL Phosphorus (2.5-4.5) mg/dL Magnesium (1.6-2.3) mg/dL Total Bilirubin (0.2-1.3) mg/dL AST (17-59) U/L ALT (21-72) U/L Total Protein (6.3-8.2) g/dL Albumin (3.5-5.0) g/dL Urine Protein 2+ H (Negative) Urine Blood Large H (Negative) Ur Leukocyte Esterase Moderate H (Negative) Urine RBC >182 H (0-5) /hpf Urine WBC 37 H (0-5) /hpf Hyaline Casts 76 H (0-2) /lpf Urine Mucus Moderate H (None) /hpf Urine Sperm Many H (None) /hpf Crossmatch 11/23/17 11/23/17 11/23/17 Range/Units 00:05 02:14 04:00 WBC 12.0 H (3.8-10.6) k/uL RBC 2.63 L (4.30-5.90) m/uL Hgb 7.4 L (13.0-17.5) gm/dL Hct 23.1 L (39.0-53.0) % RDW 16.4 H (11.5-15.5) % Plt Count 41 L* D (150-450) k/uL Neutrophils # 10.0 H (1.3-7.7) k/uL Lymphocytes # 0.6 L (1.0-4.8) k/uL PT (9.0-12.0) sec INR (<1.2) Fibrinogen (200-500) mg/dL ABG pCO2 30 L (35-45) mmHg ABG HCO3 17 L (21-25) mmol/L ABG Total CO2 18 L (19-24) mmol/L ABG O2 Saturation 98.5 H (94-97) % Sodium (137-145) mmol/L Potassium (3.5-5.1) mmol/L Carbon Dioxide (22-30) mmol/L BUN (9-20) mg/dL Creatinine (0.66-1.25) mg/dL Glucose (74-99) mg/dL POC Glucose (mg/dL) 186 H (75-99) mg/dL Calcium (8.4-10.2) mg/dL Phosphorus (2.5-4.5) mg/dL Magnesium (1.6-2.3) mg/dL Total Bilirubin (0.2-1.3) mg/dL AST (17-59) U/L ALT (21-72) U/L Total Protein (6.3-8.2) g/dL Albumin (3.5-5.0) g/dL Urine Protein (Negative) Urine Blood (Negative) Ur Leukocyte Esterase (Negative) Urine RBC (0-5) /hpf Urine WBC (0-5) /hpf Hyaline Casts (0-2) /lpf Urine Mucus (None) /hpf Urine Sperm (None) /hpf Crossmatch 11/23/17 11/23/17 11/23/17 Range/Units 04:00 04:00 07:13 WBC (3.8-10.6) k/uL RBC (4.30-5.90) m/uL Hgb (13.0-17.5) gm/dL Hct (39.0-53.0) % RDW (11.5-15.5) % Plt Count (150-450) k/uL Neutrophils # (1.3-7.7) k/uL Lymphocytes # (1.0-4.8) k/uL PT 22.5 H (9.0-12.0) sec INR 2.5 H (<1.2) Fibrinogen (200-500) mg/dL ABG pCO2 (35-45) mmHg ABG HCO3 (21-25) mmol/L ABG Total CO2 (19-24) mmol/L ABG O2 Saturation (94-97) % Sodium 134 L (137-145) mmol/L Potassium 5.2 H (3.5-5.1) mmol/L Carbon Dioxide 19 L (22-30) mmol/L BUN 89 H* (9-20) mg/dL Creatinine 2.30 H (0.66-1.25) mg/dL Glucose 168 H (74-99) mg/dL POC Glucose (mg/dL) 166 H (75-99) mg/dL Calcium 8.1 L (8.4-10.2) mg/dL Phosphorus 5.6 H (2.5-4.5) mg/dL Magnesium 2.5 H (1.6-2.3) mg/dL Total Bilirubin 3.0 H (0.2-1.3) mg/dL AST 1470 H (17-59) U/L ALT 721 H (21-72) U/L Total Protein 5.4 L (6.3-8.2) g/dL Albumin 3.1 L (3.5-5.0) g/dL Urine Protein (Negative) Urine Blood (Negative) Ur Leukocyte Esterase (Negative) Urine RBC (0-5) /hpf Urine WBC (0-5) /hpf Hyaline Casts (0-2) /lpf Urine Mucus (None) /hpf Urine Sperm (None) /hpf Crossmatch Assessment and Plan Plan: Assessment: #1. Symptomatic multivessel coronary artery disease, with total occlusion of the LAD, 70% stenosis of the diagonal artery, 95% stenosis of the circumflex, diffuse disease in the RCA with 70% stenosis at the bifurcation of the PDA and PLV. Patient is scheduled for coronary artery bypass grafting and mitral valve repair on 11/17/2017 On 11/18/2017, the patient is postop day #1. The patient underwent coronary artery bypass surgery and mitral valve repair. The patient had an intra-aortic balloon pump inserted preoperatively and the balloon pump is still active with one-to-one augmentation. The patient is also on a combination of inotropes including vasopressin, norepinephrine, milrinone, and renal dose dopamine. The urine output is adequate and the blood pressure augmented is around 95. The patient is producing adequate amount of urine output. On 11/19/2017, the patient is postop day #2. He has undergone coronary artery bypass surgery with 4 vessels and mitral valve repair. The patient is extubated he is currently on 2 L of oxygen by nasal cannula. Output from the chest tube has dropped considerably although the left pleural is still active. No evidence of any air leaks. Chest x-ray shows adequate expansion of both lungs with small pleural effusions. The patient is oxygenating well. The patient is hemodynamically doing better. Intra-aortic balloon pump is still in place with 1-2 augmentation. Pressors are being titrated and the current combination includes norepinephrine infusion, dopamine infusion, Primacor infusion and vasopressin. Note that the dopamine is at renal dose and there vasopressin is at physiologic dose. Norepinephrine infusion is running between 1 and 6 g per KG pigmented./min On 11/20/2017 the patient is postop day #3. He is looking better. He is off the intra-aortic balloon pump. History requiring pressors. We will given a unit of packed RBC and manages pressors based on his hemodynamic parameters. One concern is a drop in urine output over going to monitor that and this will hopefully improve following the packed RBC transfusion. Continue the milrinone and continue the norepinephrine infusion for now. On 11/21/2017 the patient is postop day #4. He is extubated. He is still having issues with his hemodynamics. He is requiring pressors. There is a labile blood pressure. The patient was diuresed yesterday and currently he is in a low output state with diminished urine output and hypotension and he has also developed an acute kidney injury with acute shock liver type of picture. He is having paroxysmal atrial fibrillation currently on amiodarone maintenance and current rhythm is sinus mechanism. On 11/22/2017, patient is postoperative day #5, presently on nasal cannula, major issues include issues related to his atrial flutter, renal failure, elevated liver enzymes, acute shock liver, all being addressed accordingly. On 11/23/2017 patient is postoperative day #6, continues on 2 L per nasal cannula, incentive spirometer effort remains poor, continues on milrinone, Lasix , and levo fed drip, urine output is improving, but patient appears to be clinically intravascularly dry, will receive a unit of blood. This was discussed with nephrology, and the inclination is to stop the Lasix drip after the infusion of the RBCs. Today's chest x-ray was reviewed by Dr. Harmon, and shows mostly atelectatic changes, no pulmonary edema #2. Mitral valve regurgitation, post mitral valve repair #3. Ischemic cardiomyopathy, with severe left ventricular systolic dysfunction , with significantly impaired preoperative physical ejection fraction #4 postoperative bleeding via chest tubes. The mediastinal chest tube was removed and the patient has a pleural chest tubes in place #5. Postoperative hypotension, likely hypovolemic, an unexpected outcome of surgery #6. Diabetes mellitus type 2, currently on insulin drip #7. Remote history of nicotine dependence, patient quit 40 years ago, carries 5 -pack-year smoking history #8. Postoperative anemia with a hemoglobin of of 7.0 and the patient will be receiving units of packed RBC. There is an expected outcome of surgery #9. Diabetic retinopathy Plan: Case was discussed with CT surgery and nephrology, chest x-ray films were reviewed by Dr. Harmon, changes on the chest x-ray are mostly related to atelectasis, no pulmonary edema, and patient appears to be intravascularly volume depleted, and hence the Lasix will likely be stopped after the infusion of packed red blood cells. LFTs are improving, renal profile is slightly worse , and nephrology is considering hemodialysis. Continue monitoring mental status changes, continue monitoring urine output, hemodynamics. Continue monitoring renal profile, electrolytes, cardiac rhythm and rate. Encourage incentive spirometry use, deep breathing and coughing. Maintain pain control. Daily chest x-rays, daily labs, mostly follow I performed a history & physical examination of the patient and discussed their management with my nurse practitioner, Bailee Patrick. I reviewed the nurse practitioner's note and agree with the documented findings and plan of care. Lung sounds are positive for crackles at the left lower base. The findings and the impression was discussed with the patient. I attest to the documentation by the nurse practitioner. Time with Patient: Greater than 30
[2017-11-23] MEDS ORDERED: PHYTONADIONE 10 MG in SODIUM CHLORIDE 0.9% 50 ML IVPB STA (12:47)
--- NOTE | 2017-11-23 13:09 | P.PN ---
Subjective Progress Note Date: 11/23/17 Principal diagnosis: Thrombocytopenia requiring Anticoagulation Sitting up in recliner this am, no distress. Appears to be mildly less alert than yesterday. He is alert to self. INR and continued to rise despite vitamin K yesterday, platlet count improved with transfusions. Objective - Vital Signs Vital signs: Vital Signs Temp 97.8 F 11/23/17 12:00 Pulse 119 H 11/23/17 12:00 Resp 22 11/23/17 12:00 BP 95/48 11/23/17 02:00 Pulse Ox 97 11/23/17 12:00 Intake & Output 11/22/17 11/23/17 11/23/17 18:59 06:59 18:59 Intake Total 968.946 684.292 222.6 Output Total 632 517 490 Balance 336.946 167.292 -267.4 Weight 77.8 kg 79.1 kg 79.1 kg Intake: IV 417.6 446 222.6 CO/CI 60 Calcium Chloride 500 mg 50 In Sodium Chloride 0.9% 50 ml @ 200 mls/hr IVPB ONCE ONE Rx#:[id number] Dextrose 5% in Water 100 100 ml @ 618 mls/hr IV .Q10M PRN with Amiodarone 150 mg Rx#:[id number] Furosemide 250 mg In 90 55 Sodium Chloride 0.9% 225 ml @ 5 MG/HR 5 mls/hr IVP .Q24H [facility] Rx#:[id number] Lactated Ringers 1,000 ml 240 220 90 @ 20 mls/hr IV .Q24H [facility] Rx#:[id number] Norepinephrine 16 mg In 21.6 Dextrose 5% in Water 250 ml @ Titrate IV .Q0M [facility] Rx#:[id number] Pressure Bags 90 36 6 Primacor 0.1 mcg/kg/min 27.6 Intake, IV Titration 431.346 118.292 Amount Calcium Chloride 500 mg 50 In Sodium Chloride 0.9% 50 ml @ 200 mls/hr IVPB ONCE ONE Rx#:[id number] Milrinone-D5w Pmx 20 mg 65.978 In Dextrose/Water 1 100ml .bag @ 0.1 MCG/KG/MIN 2. 33 mls/hr IV .Q24H [facility] Rx #:[id number] Norepinephrine 16 mg In 65.368 118.292 Dextrose 5% in Water 250 ml @ Titrate IV .Q0M [facility] Rx#:[id number] Phytonadione 5 mg In 50 Sodium Chloride 0.9% 50 ml @ 100 mls/hr IVPB ONCE ST[facility] Rx#:[id number] Sodium Chloride 0.9% 250 200 ml @ 999 mls/hr IV .Q16M [facility] Rx#:[id number] Oral 120 120 Output: Chest Tube Drainage 380 210 left pleural 140 100 right pleural 240 110 Drainage 10 Left Calf 10 Urine 242 307 490 Other: Voiding Method Indwelling Catheter Indwelling Catheter Indwelling Catheter # Bowel Movements 0 0 ABP, PAP, CO, CI - Last Documented Arterial Blood Pressure 110/53 Pulmonary Artery Pressure 40/15 Cardiac Output 5.0 Cardiac Index 2.7 - Constitutional General appearance: Present: cooperative, no acute distress - EENT Eyes: Present: EOMI, poor dentition, scleral icterus - Neck Details: supple, Right IJ catheter Neck: Present: normal ROM - Respiratory Respiratory: bilateral: CTA - Cardiovascular Rhythm: irregularly irregular - Gastrointestinal General gastrointestinal: Present: normal bowel sounds, soft - Integumentary Integumentary: Present: pale - Musculoskeletal Musculoskeletal: Present: generalized weakness - Psychiatric Psychiatric Comment(s): Alert to self, requires repetitive prompting to answer questions - Labs CBC & Chem 7: 11/23/17 04:00 11/23/17 04:00 Labs: Abnormal Lab Results - Last 24 Hours (Table) 11/20/17 11/22/17 11/22/17 Range/Units 06:00 17:31 18:20 WBC (3.8-10.6) k/uL RBC (4.30-5.90) m/uL Hgb (13.0-17.5) gm/dL Hct (39.0-53.0) % RDW (11.5-15.5) % Plt Count (150-450) k/uL Neutrophils # (1.3-7.7) k/uL Lymphocytes # (1.0-4.8) k/uL PT (9.0-12.0) sec INR (<1.2) Fibrinogen 522 H (200-500) mg/dL ABG pCO2 (35-45) mmHg ABG HCO3 (21-25) mmol/L ABG Total CO2 (19-24) mmol/L ABG O2 Saturation (94-97) % Sodium (137-145) mmol/L Potassium (3.5-5.1) mmol/L Carbon Dioxide (22-30) mmol/L BUN (9-20) mg/dL Creatinine (0.66-1.25) mg/dL Glucose (74-99) mg/dL POC Glucose (mg/dL) 140 H (75-99) mg/dL Calcium (8.4-10.2) mg/dL Phosphorus (2.5-4.5) mg/dL Magnesium (1.6-2.3) mg/dL Total Bilirubin (0.2-1.3) mg/dL AST (17-59) U/L ALT (21-72) U/L Total Protein (6.3-8.2) g/dL Albumin (3.5-5.0) g/dL Urine Protein (Negative) Urine Blood (Negative) Ur Leukocyte Esterase (Negative) Urine RBC (0-5) /hpf Urine WBC (0-5) /hpf Hyaline Casts (0-2) /lpf Urine Mucus (None) /hpf Urine Sperm (None) /hpf Crossmatch See Detail 11/22/17 11/22/17 11/23/17 Range/Units 20:10 20:32 00:05 WBC (3.8-10.6) k/uL RBC (4.30-5.90) m/uL Hgb (13.0-17.5) gm/dL Hct (39.0-53.0) % RDW (11.5-15.5) % Plt Count (150-450) k/uL Neutrophils # (1.3-7.7) k/uL Lymphocytes # (1.0-4.8) k/uL PT (9.0-12.0) sec INR (<1.2) Fibrinogen (200-500) mg/dL ABG pCO2 30 L (35-45) mmHg ABG HCO3 17 L (21-25) mmol/L ABG Total CO2 18 L (19-24) mmol/L ABG O2 Saturation 98.5 H (94-97) % Sodium (137-145) mmol/L Potassium (3.5-5.1) mmol/L Carbon Dioxide (22-30) mmol/L BUN (9-20) mg/dL Creatinine (0.66-1.25) mg/dL Glucose (74-99) mg/dL POC Glucose (mg/dL) 146 H (75-99) mg/dL Calcium (8.4-10.2) mg/dL Phosphorus (2.5-4.5) mg/dL Magnesium (1.6-2.3) mg/dL Total Bilirubin (0.2-1.3) mg/dL AST (17-59) U/L ALT (21-72) U/L Total Protein (6.3-8.2) g/dL Albumin (3.5-5.0) g/dL Urine Protein 2+ H (Negative) Urine Blood Large H (Negative) Ur Leukocyte Esterase Moderate H (Negative) Urine RBC >182 H (0-5) /hpf Urine WBC 37 H (0-5) /hpf Hyaline Casts 76 H (0-2) /lpf Urine Mucus Moderate H (None) /hpf Urine Sperm Many H (None) /hpf Crossmatch 11/23/17 11/23/17 11/23/17 Range/Units 02:14 04:00 04:00 WBC 12.0 H (3.8-10.6) k/uL RBC 2.63 L (4.30-5.90) m/uL Hgb 7.4 L (13.0-17.5) gm/dL Hct 23.1 L (39.0-53.0) % RDW 16.4 H (11.5-15.5) % Plt Count 41 L* D (150-450) k/uL Neutrophils # 10.0 H (1.3-7.7) k/uL Lymphocytes # 0.6 L (1.0-4.8) k/uL PT (9.0-12.0) sec INR (<1.2) Fibrinogen (200-500) mg/dL ABG pCO2 (35-45) mmHg ABG HCO3 (21-25) mmol/L ABG Total CO2 (19-24) mmol/L ABG O2 Saturation (94-97) % Sodium 134 L (137-145) mmol/L Potassium 5.2 H (3.5-5.1) mmol/L Carbon Dioxide 19 L (22-30) mmol/L BUN 89 H* (9-20) mg/dL Creatinine 2.30 H (0.66-1.25) mg/dL Glucose 168 H (74-99) mg/dL POC Glucose (mg/dL) 186 H (75-99) mg/dL Calcium 8.1 L (8.4-10.2) mg/dL Phosphorus 5.6 H (2.5-4.5) mg/dL Magnesium 2.5 H (1.6-2.3) mg/dL Total Bilirubin 3.0 H (0.2-1.3) mg/dL AST 1470 H (17-59) U/L ALT 721 H (21-72) U/L Total Protein 5.4 L (6.3-8.2) g/dL Albumin 3.1 L (3.5-5.0) g/dL Urine Protein (Negative) Urine Blood (Negative) Ur Leukocyte Esterase (Negative) Urine RBC (0-5) /hpf Urine WBC (0-5) /hpf Hyaline Casts (0-2) /lpf Urine Mucus (None) /hpf Urine Sperm (None) /hpf Crossmatch 11/23/17 11/23/17 11/23/17 Range/Units 04:00 07:13 12:07 WBC (3.8-10.6) k/uL RBC (4.30-5.90) m/uL Hgb (13.0-17.5) gm/dL Hct (39.0-53.0) % RDW (11.5-15.5) % Plt Count (150-450) k/uL Neutrophils # (1.3-7.7) k/uL Lymphocytes # (1.0-4.8) k/uL PT 22.5 H (9.0-12.0) sec INR 2.5 H (<1.2) Fibrinogen (200-500) mg/dL ABG pCO2 (35-45) mmHg ABG HCO3 (21-25) mmol/L ABG Total CO2 (19-24) mmol/L ABG O2 Saturation (94-97) % Sodium (137-145) mmol/L Potassium (3.5-5.1) mmol/L Carbon Dioxide (22-30) mmol/L BUN (9-20) mg/dL Creatinine (0.66-1.25) mg/dL Glucose (74-99) mg/dL POC Glucose (mg/dL) 166 H 165 H (75-99) mg/dL Calcium (8.4-10.2) mg/dL Phosphorus (2.5-4.5) mg/dL Magnesium (1.6-2.3) mg/dL Total Bilirubin (0.2-1.3) mg/dL AST (17-59) U/L ALT (21-72) U/L Total Protein (6.3-8.2) g/dL Albumin (3.5-5.0) g/dL Urine Protein (Negative) Urine Blood (Negative) Ur Leukocyte Esterase (Negative) Urine RBC (0-5) /hpf Urine WBC (0-5) /hpf Hyaline Casts (0-2) /lpf Urine Mucus (None) /hpf Urine Sperm (None) /hpf Crossmatch Assessment and Plan Plan: Assessment and Recommendations: 1. THrombocytopenia: - Likely secondary to Shock Liver and Consumption, less likely Heparin exposure. - fibrinogen 500, not consistent with a picture of DIC - Daily CBC - Transfuse to attempt a platelet count of 50K, 41 today transfuse another unit of platlets 2. Prolonged INR/PT - coagulopathy - Worsening - Monitor Daily and deliver Vitamin K 10mg IV today - INR = 2.5 today 2. Liver Transiminitis: - Likely secondary to shock liver. - No known history of underlying liver disease - Continue to monitor liver per management of primary team 3. Normocytic Anemia: - Monitor CBC, Transfuse for Hemoglobin less than 7 - Hemoglobin 7.4 today 4. Mitral valve regurgitation, post mitral valve repair 5. Ischemic cardiomyopathy, with severe left ventricular systolic dysfunction, with significantly impaired preoperative physical ejection fraction 6. Diabetes mellitus type 2, currently on insulin drip 7. Acute Renal Failure Physician Attestation: I have completed the full history and physical of this patient and discussed and agree with above dictation by Archie Avina NP. DIctated as a scribe
[2017-11-23] MEDS: METOPROLOL TARTRATE 12.5 MG TAB PO SCH ×2 (13:54→21:25)
[2017-11-23] MEDS: SERTRALINE 25 MG TAB PO SCH (13:54)
[2017-11-23] MEDS: ASCORBIC ACID 500 MG TAB PO SCH ×2 (13:54→17:53)
[2017-11-23] MEDS: FERROUS SULFATE 325 MG TAB PO SCH ×2 (13:55→17:52)
[2017-11-23] MEDS: MIDODRINE 5 MG TAB PO SCH ×3 (13:55→17:52)
[2017-11-23] MEDS: AMIODARONE 200 MG TAB PO SCH ×2 (13:56→21:25)
[2017-11-23] MEDS: PANTOPRAZOLE 40 MG TABLET PO SCH (13:56)
[2017-11-23] MEDS: ASPIRIN 81 MG PO SCH (14:10)
[2017-11-23 15:46] LABS: ABG Base Excess -6.3 mmol/L; ABG HCO3 18 mmol/L (21-25); ABG PCO2 29 mmHg (35-45); ABG PH 7.41 (7.35-7.45); ABG PO2 85 mmHg (83-108); ABG TCO2 19 mmol/L (19-24)
--- NOTE | 2017-11-23 15:56 | P.PN ---
Subjective Progress Note Date: 11/23/17 This is a pleasant gentleman patient of Dr. Spann, newly established to the office to evaluate shortness of breath, dyspnea on exertion, underwent cardiac cath and found to have ischemic cardiomyopathy with severe LV dysfunction, triple-vessel disease prior to bypass surgery, admitted for bypass surgery and valve repair. He has underlying history of diabetes mellitus type 2, hyperlipidemia, Cardiac cath performed 11/09/2017 shows left main coronary up was calcified, circumflex 95% stenosis in the ostial portion, LAD totally occluded just of to the origin of the large diagonal branch, diagonal branch from the percent stenosis, 70% stenosis in the PDA and PLV severe left ventricle systolic dysfunction and mitral regurgitation He is currently in ICU being prepped for CABG and mitral valve repair on 2017 and has intra-aortic balloon pump done through the right femoral artery. 11/17: Patient is having open-heart surgery today. 11/18: Patient is status post quadruple coronary artery bypass grafting using the left internal mammary artery to the left anterior descending coronary artery, a reverse greater saphenous vein graft from the aorta to the diagonal coronary artery, reverse greater saphenous vein graft from the aorta to the first obtuse marginal coronary artery, a reverse greater saphenous vein graft from the aorta to the posterior descending coronary artery and mitral valve repair. Patient remains in the intensive care unit intubated and on mechanical ventilation currently on CPAP for weaning parameters. He continues to have intra-aortic balloon pump in place which is plan to keep for 1 more day. He has a right, left and mediastinal chest tubes in place draining serosanguineous fluid. Urine output is 50-60 mL per hour. He is also on vasopressors. Hemoglobin A1c is 6.7. 83: Patient remains in the intensive care unit. He is currently off oxygen and pulse oxing. He continues to have all [address] Balloon pump was removed. Urine output has been adequate. White count is normal. Hemoglobin 7.3, INR 1.5, creatinine 0.93, blood sugars are running between 104 and 127. He has been afebrile. Heart rate running in the 90s. Blood pressure is stable with current vasopressors. Pulse ox is 9700% on room air. Patient denies having any chest pain. No abdominal pain. No nausea. 84. Patient examined the bedside in the ICU. Currently off oxygen. He is not making enough urine output. Creatinine function has worsened from 0.8-1.2. Hemoglobin 7 this morning status post transfusion 1 unit PRBC. Patient is denies any chest pain, shortness of breath is resting comfortably in the chair. He still continues to have [address] with a AARON drain. Blood sugar between 100-125. 11/21 patient examined bedside in the ICU. Brief episode of atrial fibrillation last night and one dose of IV amiodarone given followed by a maintenance dose Afinitor on 400 mg twice a day. Creatinine increased to 1.8 today. Patient is having minimal urine output with less than 10 mL per hour. Patient may benefit from IV fluids as he has minimal oral intake and has minimal urine output. One bag of 250 mg abdomen given today. Patient received 2 units of PRBCs C yesterday. No bowel movements for the past 3 days. Patient is passing gas. Continue with bowel regimen 11/22: Patient hasn't been noted to have increasing renal numbers with BUN of 66 and creatinine 2.2 and nephrology has been consult did. Patient is also noted to have low urine output and dark urine. He is not eating very much. Patient is more lethargic today. He denies any abdominal pain. Heart rate is controlled in a sinus rhythm. He is currently on oral amiodarone and Lopressor for atrial fibrillation. No anticoagulation due to thrombocytopenia. He is currently off label fed but continued on Primacor. 11/23: Patient has been seen by hematology for thrombocytopenia secondary to shock liver and consumption. Fibrinogen to be checked. Patient be transfused if platelet count is less than 50,000. One dose of vitamin K was given for INR of 1.8 yesterday. INR today is at 2.5, platelet count 41. BUN 89, creatinine 2.30, AST 1470, ALT 721. Urinalysis is turbid, leukoesterase moderate, RBCs greater than 182, wbc's 37, Patient has also been seen by nephrology for acute kidney injury, acute tubular necrosis, oliguria. Recommendations to transfuse if hemoglobin is falls below 7.4 fluid bolus was attempted without improvement and patient was started on Lasix drip. Patient is also continued on Primacor. Urine output has been 35-75 mL per hour. Heart rate has been elevated in the low 100s. Patient has received calcium chloride 1 dose yesterday and repeat today. He was started on Midodrine 10 mg 3 times daily yesterday. He is more lethargic today. He has failed a swallow eval and speech therapy added. Patient has been started on Zoloft for depression but patient appears to be more acute delirium. Patient has been on and off norepinephrine as his blood pressures dropping into the 80 systolic when he sleeps. Objective - Vital Signs Vital signs: Vital Signs Temp 97.7 F 11/23/17 08:00 Pulse 103 H 11/23/17 10:00 Resp 12 11/23/17 10:00 BP 95/48 11/23/17 02:00 Pulse Ox 96 11/23/17 10:00 Intake & Output 11/22/17 11/23/17 11/23/17 18:59 06:59 18:59 Intake Total 968.946 684.292 187.0 Output Total 632 517 350 Balance 336.946 167.292 -163.0 Weight 77.8 kg 79.1 kg 79.1 kg Intake: IV 417.6 446 187.0 CO/CI 60 Calcium Chloride 500 mg 50 In Sodium Chloride 0.9% 50 ml @ 200 mls/hr IVPB ONCE ONE Rx#:[id number] Dextrose 5% in Water 100 100 ml @ 618 mls/hr IV .Q10M PRN with Amiodarone 150 mg Rx#:[id number] Furosemide 250 mg In 90 45 Sodium Chloride 0.9% 225 ml @ 10 MG/HR 10 mls/hr IVP .Q24H [facility] Rx#: [id number] Lactated Ringers 1,000 ml 240 220 70 @ 20 mls/hr IV .Q24H [facility] Rx#:[id number] Norepinephrine 16 mg In 16.0 Dextrose 5% in Water 250 ml @ Titrate IV .Q0M [facility] Rx#:[id number] Pressure Bags 90 36 6 Primacor 0.1 mcg/kg/min 27.6 Intake, IV Titration 431.346 118.292 Amount Calcium Chloride 500 mg 50 In Sodium Chloride 0.9% 50 ml @ 200 mls/hr IVPB ONCE ONE Rx#:[id number] Milrinone-D5w Pmx 20 mg 65.978 In Dextrose/Water 1 100ml .bag @ 0.1 MCG/KG/MIN 2. 33 mls/hr IV .Q24H [facility] Rx #:[id number] Norepinephrine 16 mg In 65.368 118.292 Dextrose 5% in Water 250 ml @ Titrate IV .Q0M [facility] Rx#:[id number] Phytonadione 5 mg In 50 Sodium Chloride 0.9% 50 ml @ 100 mls/hr IVPB ONCE STA Rx#:[id number] Sodium Chloride 0.9% 250 200 ml @ 999 mls/hr IV .Q16M [facility] Rx#:[id number] Oral 120 120 Output: Chest Tube Drainage 380 210 left pleural 140 100 right pleural 240 110 Drainage 10 Left Calf 10 Urine 242 307 350 Other: Voiding Method Indwelling Catheter Indwelling Catheter Indwelling Catheter # Bowel Movements 0 0 ABP, PAP, CO, CI - Last Documented Arterial Blood Pressure 99/50 Pulmonary Artery Pressure 40/15 Cardiac Output 5.0 Cardiac Index 2.7 - Exam General appearance: average body habitus, cooperative, no acute distress - EENT Eyes: anicteric sclerae, EOMI, PERRLA, dentition normal, normal appearance no vision in the left eye blurring of the cornea with spelling ENT: NA/AT, normal oropharynx, extubated - Respiratory Respiratory: bilateral: CTA, negative: diminished, dullness, rales, rhonchi, wheezing, continues to have right pleural, left pleural chest tubes in place. - Cardiovascular Rhythm: Regularly irregular Heart sounds: normal: S1, S2 Abnormal Heart Sounds: no systolic murmur, no diastolic murmur, no rub, no S3 Gallop, no S4 Gallop, no click, no other - Gastrointestinal General gastrointestinal: normal bowel sounds, soft, Fong draining clear marta urine - Integumentary Integumentary: normal, normal turgor - Neurologic Neurologic: Awake, focal deficits (None) - Musculoskeletal Musculoskeletal: gait not assessed, strength equal bilaterally - Labs CBC & Chem 7: 11/23/17 04:00 11/23/17 04:00 Labs: Abnormal Lab Results - Last 24 Hours (Table) 11/22/17 11/22/17 11/22/17 Range/Units 12:37 17:31 18:20 WBC (3.8-10.6) k/uL RBC (4.30-5.90) m/uL Hgb (13.0-17.5) gm/dL Hct (39.0-53.0) % RDW (11.5-15.5) % Plt Count (150-450) k/uL Neutrophils # (1.3-7.7) k/uL Lymphocytes # (1.0-4.8) k/uL PT (9.0-12.0) sec INR (<1.2) Fibrinogen 522 H (200-500) mg/dL ABG pCO2 (35-45) mmHg ABG HCO3 (21-25) mmol/L ABG Total CO2 (19-24) mmol/L ABG O2 Saturation (94-97) % Sodium (137-145) mmol/L Potassium (3.5-5.1) mmol/L Carbon Dioxide (22-30) mmol/L BUN (9-20) mg/dL Creatinine (0.66-1.25) mg/dL Glucose (74-99) mg/dL POC Glucose (mg/dL) 132 H 140 H (75-99) mg/dL Calcium (8.4-10.2) mg/dL Phosphorus (2.5-4.5) mg/dL Magnesium (1.6-2.3) mg/dL Total Bilirubin (0.2-1.3) mg/dL AST (17-59) U/L ALT (21-72) U/L Total Protein (6.3-8.2) g/dL Albumin (3.5-5.0) g/dL Urine Protein (Negative) Urine Blood (Negative) Ur Leukocyte Esterase (Negative) Urine RBC (0-5) /hpf Urine WBC (0-5) /hpf Hyaline Casts (0-2) /lpf Urine Mucus (None) /hpf Urine Sperm (None) /hpf 11/22/17 11/22/17 11/23/17 Range/Units 20:10 20:32 00:05 WBC (3.8-10.6) k/uL RBC (4.30-5.90) m/uL Hgb (13.0-17.5) gm/dL Hct (39.0-53.0) % RDW (11.5-15.5) % Plt Count (150-450) k/uL Neutrophils # (1.3-7.7) k/uL Lymphocytes # (1.0-4.8) k/uL PT (9.0-12.0) sec INR (<1.2) Fibrinogen (200-500) mg/dL ABG pCO2 30 L (35-45) mmHg ABG HCO3 17 L (21-25) mmol/L ABG Total CO2 18 L (19-24) mmol/L ABG O2 Saturation 98.5 H (94-97) % Sodium (137-145) mmol/L Potassium (3.5-5.1) mmol/L Carbon Dioxide (22-30) mmol/L BUN (9-20) mg/dL Creatinine (0.66-1.25) mg/dL Glucose (74-99) mg/dL POC Glucose (mg/dL) 146 H (75-99) mg/dL Calcium (8.4-10.2) mg/dL Phosphorus (2.5-4.5) mg/dL Magnesium (1.6-2.3) mg/dL Total Bilirubin (0.2-1.3) mg/dL AST (17-59) U/L ALT (21-72) U/L Total Protein (6.3-8.2) g/dL Albumin (3.5-5.0) g/dL Urine Protein 2+ H (Negative) Urine Blood Large H (Negative) Ur Leukocyte Esterase Moderate H (Negative) Urine RBC >182 H (0-5) /hpf Urine WBC 37 H (0-5) /hpf Hyaline Casts 76 H (0-2) /lpf Urine Mucus Moderate H (None) /hpf Urine Sperm Many H (None) /hpf 11/23/17 11/23/17 11/23/17 Range/Units 02:14 04:00 04:00 WBC 12.0 H (3.8-10.6) k/uL RBC 2.63 L (4.30-5.90) m/uL Hgb 7.4 L (13.0-17.5) gm/dL Hct 23.1 L (39.0-53.0) % RDW 16.4 H (11.5-15.5) % Plt Count 41 L* D (150-450) k/uL Neutrophils # 10.0 H (1.3-7.7) k/uL Lymphocytes # 0.6 L (1.0-4.8) k/uL PT (9.0-12.0) sec INR (<1.2) Fibrinogen (200-500) mg/dL ABG pCO2 (35-45) mmHg ABG HCO3 (21-25) mmol/L ABG Total CO2 (19-24) mmol/L ABG O2 Saturation (94-97) % Sodium 134 L (137-145) mmol/L Potassium 5.2 H (3.5-5.1) mmol/L Carbon Dioxide 19 L (22-30) mmol/L BUN 89 H* (9-20) mg/dL Creatinine 2.30 H (0.66-1.25) mg/dL Glucose 168 H (74-99) mg/dL POC Glucose (mg/dL) 186 H (75-99) mg/dL Calcium 8.1 L (8.4-10.2) mg/dL Phosphorus 5.6 H (2.5-4.5) mg/dL Magnesium 2.5 H (1.6-2.3) mg/dL Total Bilirubin 3.0 H (0.2-1.3) mg/dL AST 1470 H (17-59) U/L ALT 721 H (21-72) U/L Total Protein 5.4 L (6.3-8.2) g/dL Albumin 3.1 L (3.5-5.0) g/dL Urine Protein (Negative) Urine Blood (Negative) Ur Leukocyte Esterase (Negative) Urine RBC (0-5) /hpf Urine WBC (0-5) /hpf Hyaline Casts (0-2) /lpf Urine Mucus (None) /hpf Urine Sperm (None) /hpf 11/23/17 11/23/17 Range/Units 04:00 07:13 WBC (3.8-10.6) k/uL RBC (4.30-5.90) m/uL Hgb (13.0-17.5) gm/dL Hct (39.0-53.0) % RDW (11.5-15.5) % Plt Count (150-450) k/uL Neutrophils # (1.3-7.7) k/uL Lymphocytes # (1.0-4.8) k/uL PT 22.5 H (9.0-12.0) sec INR 2.5 H (<1.2) Fibrinogen (200-500) mg/dL ABG pCO2 (35-45) mmHg ABG HCO3 (21-25) mmol/L ABG Total CO2 (19-24) mmol/L ABG O2 Saturation (94-97) % Sodium (137-145) mmol/L Potassium (3.5-5.1) mmol/L Carbon Dioxide (22-30) mmol/L BUN (9-20) mg/dL Creatinine (0.66-1.25) mg/dL Glucose (74-99) mg/dL POC Glucose (mg/dL) 166 H (75-99) mg/dL Calcium (8.4-10.2) mg/dL Phosphorus (2.5-4.5) mg/dL Magnesium (1.6-2.3) mg/dL Total Bilirubin (0.2-1.3) mg/dL AST (17-59) U/L ALT (21-72) U/L Total Protein (6.3-8.2) g/dL Albumin (3.5-5.0) g/dL Urine Protein (Negative) Urine Blood (Negative) Ur Leukocyte Esterase (Negative) Urine RBC (0-5) /hpf Urine WBC (0-5) /hpf Hyaline Casts (0-2) /lpf Urine Mucus (None) /hpf Urine Sperm (None) /hpf Assessment and Plan Plan: (1) Coronary artery disease and moderate mitral valve regurgitation Triple vessel disease noted on cardiac cath agent status post CABG and mitral valve repair on all 11/17/2017. Continue on aspirin, Lipitor, metoprolol, Plavix, and aspirin. Hemoglobin A1c 6.7, insulin drip therapy. ICU opthalmic tech Dr. Fajardo consult. 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, also accompanied by mitral valvular regurgitation, continue on Lasix, maximize medical treatment, anticipate CBG with possibility of mitral valve repair in the morning 11/17/2017 (4) Hyperlipidemia Patient currently is on statins, and will be titrated to goal of 70 currently on Lipitor 40 mg daily (5) On esomeprazole prophylaxis (6) DVT prophylaxis (7) Steal syndrome, subclavian Carotid Dopplers 11/10/2017 shows no carotid stenosis however there is to and fro flow within the right vertebral artery could reflect manifestation of subclavian steal physiology prior to with continuous flow reversal. Currently asymptomatic continue to monitor (8) Pulmonary hypertension PILAR on 11/10/2017, moderate pulmonary hypertension also shows intact atrial septum with no evidence of [id number] shunt physiology, unable to locate pressures for right ventricular systolic 9. Thrombocytopenia secondary to consumption. Fibrinogen ordered.. Patient is off aspirin, Plavix and Arixtra. Consult with oncology appreciated. Recommendations for platelet transfusion if less than 50,000. 10. Anemia, secondary to a combination of acute blood loss and renal failure with drop in hemoglobin from 10-6.5. Patient is status post multiple blood products. 11. Acute kidney injury, acute tubular necrosis, oliguric are surely due to cardiorenal syndrome. Consult with nephrology appreciated. Patient on Lasix drip. 12. Post op atrial fibrillation, expected outcome of surgery. Patient has been on amiodarone and Lopressor. 13. Liver transaminitis and coagulopathy secondary to shock liverg consult appreciated. Continue to monitor closely. Statin is on hold. 14. Depression, situational. Zoloft has been started 25 mg daily. 15. Acute delirium secondary to acute illness. Patient may be better suited for Remeron in the evening if no improvement is noted with Zoloft. Discharge plan: To be determined Impression and plan of care have been directed as dictated by the signing physician. Amy Renteria nurse practitioner acting as scribe for signing physician.
[2017-11-23 17:12] LABS: Glucose,Whole Blood 136 mg/dL (75-99)
[2017-11-23] MEDS: MILRINONE-D5W PMX 20 MG in DEXTROSE/WATER 1 100ML.BAG IV SCH (20:00)
[2017-11-23] MEDS ORDERED: HALOPERIDOL LACTATE 5 MG/ML 1 ML VIAL IVP PRN (21:05)
[2017-11-23 21:09] LABS: Glucose,Whole Blood 105 mg/dL (75-99)
[2017-11-23] MEDS: SENNOSIDES-DOCUSATE SODIUM 1 EACH TAB PO SCH (21:25)
[2017-11-23] MEDS: MELATONIN 5 MG TABLET PO SCH (21:25)
--- NOTE | 2017-11-23 22:21 | PN ---
PROGRESS NOTE Patient is seen for followup for acute kidney injury. Yesterday, patient did not respond to fluid bolus. He was started on Lasix drip overnight. Urine output did supervisor opening and picking to about 30-50 mL an hour with the Lasix drip. This morning on examination, blood pressure was 199/50 ranging from 99/50 to 110/53. Patient was afebrile, heart rate about 90 per minute. HEART: S1, S2. LUNGS: Decreased breath sounds at the bases. Abdomen is soft, nontender. Lower extremities show trace edema right lower extremity. There is scrotal edema noted. Left lower extremity is currently wrapped. LABS: Show sodium 134, potassium 5.2, BUN 89, serum creatinine 2.3. Platelet count was 41,000, hemoglobin 7.4. ASSESSMENT: 1. Acute kidney injury, acute tubular necrosis as well as component of cardiorenal syndrome. Continue with Primacor. Continue with the Lasix drip. Okay to continue with Lasix drip at 5 mg an hour. I would also transfuse 1 unit packed red blood cells, given his overall hypoperfusion state. 2. Status post coronary artery bypass surgery and mitral valve replacement. 3. Mild hyperkalemia associated with acute kidney injury. Need to rule out underlying gastrointestinal bleed. 4. Hypotension. Check random cortisol level. Continue with the Levophed as needed. 5. Cardiomyopathy, ejection fraction 30%-35%. Maintained on Milrinone. PLAN: Continue with Lasix drip. Okay to continue at 5 mg an hour. Transfuse 1 unit packed RBCs and check random cortisol level. MMODL / IJN: [id number] /
[2017-11-23] MEDS: FUROSEMIDE 250 MG in SODIUM CHLORIDE 0.9% 225 ML IVP SCH (23:10)
[2017-11-23] MEDS: prednisoLONE ACETATE 1% OPHTH DROPS 5 ML BTL LEFT EYE SCH (23:11)
[2017-11-23] MEDS: ERYTHROMYCIN 5 MG/GM OPHTH OINT 3.5 GM TUBE LEFT EYE SCH (23:12)
[2017-11-24] MEDS ORDERED: HALOPERIDOL LACTATE 5 MG/ML 1 ML VIAL IVP PRN (00:16)
[2017-11-24 04:35] LABS: Anisocytosis Slight; Basophils % (A) 0 %; Eosinophils % (A) 0 %; HCT 24.9 % (39.0-53.0); HGB 7.8 gm/dL (13.0-17.5); Hypochromasia Moderate; Lymphocytes # (A) 0.2 k/uL (1.0-4.8); Lymphocytes % (A) 2 %; MCH 29.1 pg (25.0-35.0); MCHC 31.5 g/dL (31.0-37.0); MCV 92.5 fL (80.0-100.0); Mean Platelet Volume 11.4; Monocytes % (A) 8 %; Neutrophils # (A) 11.8 k/uL (1.3-7.7); Neutrophils % (A) 87 %; RBC 2.69 m/uL (4.30-5.90); RDW 16.4 % (11.5-15.5); WBC 13.5 k/uL (3.8-10.6)
[2017-11-24 04:36] LABS: INR 2.9 (<1.2); Ionized Calcium 4.7 mg/dL (4.5-5.3); Platelet Count 47 k/uL (150-450); Prothrombin Time 25.6 sec (9.0-12.0)
[2017-11-24] MEDS ORDERED: PROPOFOL 100 ML IV ONE (04:40)
[2017-11-24] MEDS ORDERED: ETOMIDATE 2 MG/ML 10 ML VIAL ONE (04:45)
[2017-11-24] MEDS ORDERED: ROCURONIUM BROMIDE 10 MG/ML 10 ML VIAL IV ONE (04:45)
[2017-11-24 04:54] LABS: Albumin 3.3 g/dL (3.5-5.0); Calcium 8.3 mg/dL (8.4-10.2); Magnesium 2.7 mg/dL (1.6-2.3); Potassium 6.1 mmol/L (3.5-5.1); Total Bilirubin 5.6 mg/dL (0.2-1.3); Total Protein 5.7 g/dL (6.3-8.2)
[2017-11-24 05:00] LABS: Poikilocytosis (M) Present; Polychromasia Present
[2017-11-24] MEDS ORDERED: ALBUMIN HUMAN 5% 250 ML IVPB ONE (05:09)
[2017-11-24] MEDS ORDERED: ALBUMIN HUMAN 5% 250 ML in EMPTY BAG 1 BAG IVPB STA (05:10)
[2017-11-24] MEDS ORDERED: SODIUM BICARB 8.4% 50 ML SYR (1 MEQ/ML) IV STA (05:11)
[2017-11-24 05:14] LABS: ABG Base Excess -16.7 mmol/L; ABG HCO3 13 mmol/L (21-25); ABG Oxygen Saturation 99.9 % (94-97); ABG PCO2 41 mmHg (35-45); ABG PO2 >400 mmHg (83-108); ABG TCO2 14 mmol/L (19-24)
--- NOTE | 2017-11-24 05:23 | XR ---
EXAMINATION TYPE: XR chest 1V portable DATE OF EXAM: 11/24/2017 COMPARISON: Yesterday HISTORY: Check tube placement TECHNIQUE: Single frontal view of the chest is obtained. FINDINGS: There is endotracheal tube with the tip 5 cm from the daiana. There are bilateral chest tu bes. There is mild pulmonary congestion. There is nasogastric tube in good position. There is no sign of a pneumothorax. There is mild blunting of costophrenic angles. There is left subclavian catheter with the tip in the superior vena cava. IMPRESSION: Endotracheal tube is in fairly good position. There is decreased pulmonary vascular denise estion compared to yesterday.
[2017-11-24 05:26] LABS: Phosphorus 8.4 mg/dL (2.5-4.5)
[2017-11-24] MEDS: SODIUM CHLORIDE 0.9% 99 ML with VASOPRESSIN 20 UNIT IV SCH ×6 (05:29→16:35)
[2017-11-24] MEDS ORDERED: SODIUM BICARB 8.4% 50 ML SYR (1 MEQ/ML) IV ONE (05:33)
[2017-11-24] MEDS ORDERED: CALCIUM CHLORIDE 500 MG in SODIUM CHLORIDE 0.9% 50 ML IVPB ONE (05:33)
[2017-11-24] MEDS: PROPOFOL 1,000 MG in EMPTY BAG 1 BAG IV SCH ×2 (05:48→17:00)
[2017-11-24] MEDS: INSULIN ASPART 100 UNIT/ML 1 ML 10 ML VIAL SQ SCH ×2 (05:49→11:26)
[2017-11-24 06:21] LABS: ABG Base Excess -11.2 mmol/L; ABG HCO3 16 mmol/L (21-25); ABG Oxygen Saturation 99.7 % (94-97); ABG PCO2 39 mmHg (35-45); ABG PH 7.24 (7.35-7.45); ABG PO2 213 mmHg (83-108); ABG TCO2 18 mmol/L (19-24)
[2017-11-24] MEDS: SODIUM CHLORIDE 0.9% 1,000 ML IV SCH ×2 (06:48→09:46)
[2017-11-24] MEDS ORDERED: INSULIN REGULAR 100 UNIT/ML VIAL IV ONE (06:49)
[2017-11-24] MEDS ORDERED: DEXTROSE 50%-WATER 50 ML SYRINGE IVP ONE (06:49)
[2017-11-24] MEDS: NOREPINEPHRINE 16 MG in DEXTROSE 5% IN WATER 250 ML IV SCH ×4 (07:10→16:35)
[2017-11-24] MEDS: IPRATROPIUM-ALBUTEROL 3 ML NEB INHALATION SCH ×4 (07:12→20:19)
[2017-11-24] MEDS ORDERED: SODIUM CHLORIDE 0.9% 500 ML IV ONE ×2 (08:27→10:31)
[2017-11-24 08:34] LABS: ABG Base Excess -10.6 mmol/L; ABG HCO3 16 mmol/L (21-25); ABG Oxygen Saturation 98.9 % (94-97); ABG PCO2 35 mmHg (35-45); ABG PH 7.28 (7.35-7.45); ABG PO2 125 mmHg (83-108); ABG TCO2 17 mmol/L (19-24)
[2017-11-24 08:44] LABS: Anisocytosis Slight; Basophils % (A) 0 %; Eosinophils % (A) 0 %; HCT 22.9 % (39.0-53.0); HGB 7.4 gm/dL (13.0-17.5); Hypochromasia Slight; Lymphocytes # (A) 0.3 k/uL (1.0-4.8); Lymphocytes % (A) 2 %; MCHC 32.3 g/dL (31.0-37.0); MCV 89.6 fL (80.0-100.0); Monocytes # (A) 0.8 k/uL (0-1.0); Monocytes % (A) 5 %; Neutrophils # (A) 13.7 k/uL (1.3-7.7); Neutrophils % (A) 90 %; RBC 2.56 m/uL (4.30-5.90); RDW 16.8 % (11.5-15.5); WBC 15.2 k/uL (3.8-10.6)
[2017-11-24] MEDS: SODIUM BICARB 8.4% 50 ML SYR (1 MEQ/ML) IV ONE (08:44)
[2017-11-24 08:49] LABS: Platelet Count 52 k/uL (150-450)
[2017-11-24 08:55] LABS: Ionized Calcium 4.5 mg/dL (4.5-5.3)
[2017-11-24 09:06] LABS: Albumin 3.2 g/dL (3.5-5.0); Calcium 8.1 mg/dL (8.4-10.2); Phosphorus 7.5 mg/dL (2.5-4.5); Potassium 5.6 mmol/L (3.5-5.1); Total Bilirubin 5.8 mg/dL (0.2-1.3); Total Protein 5.3 g/dL (6.3-8.2)
[2017-11-24] MEDS: DEXTROSE 5% IN WATER 1,000 ML with SODIUM BICARB (1 MEQ/ML) 150 ML IV SCH ×2 (09:47→14:45)
--- NOTE | 2017-11-24 10:05 | P.PN ---
Subjective Progress Note Date: 11/24/17 Principal diagnosis: Triple-vessel coronary artery disease. Severe ischemic cardiomyopathy. Moderate mitral valve regurgitation. Mild tricuspid valve regurgitation. Diabetes mellitus with preoperative hemoglobin A1c 6.7%. Hyperlipidemia. Moderate to severe restrictive lung disease with preoperative FEV1 43% of predicted. Evidence of diffuse calcific coronary artery disease. 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 Previous tobacco dependence. POD #8 placement of preoperative intra-aortic balloon pump POD #7 quadruple coronary artery bypass grafting using the left internal mammary artery to the left anterior descending artery, reverse saphenous vein graft from the aorta to the diagonal artery, reverse saphenous vein graft from the aorta to the first obtuse marginal artery, reverse saphenous vein graft from the aorta to the posterior descending artery. Mitral valve repair using a complete ring annuloplasty with a 30 mm Kapoor IMR ring. Exclusion of the left atrial appendage using a 35 mm Atriclip. Intraoperative transesophageal echocardiogram and epi-aortic scanning. Intraoperative graft flow measurements using the Variablestim system. Post operative normocytic, normochromic anemia, an expected outcome of surgery. Postoperative thrombocytopenia, an expected outcome of surgery. Postoperative atrial fibrillation, an expected outcome of surgery. Postoperative elevated transaminases, an unexpected outcome of surgery, likely secondary to low flow state post surgery. Postoperative acute kidney injury, an unexpected outcome of surgery, likely secondary to low flow state post surgery. Postoperative acute metabolic acidosis, lactic acidosis, reintubation, an unexpected outcome. The patient was reintubated this morning. Through the evening he was very restless, confused, tracking with his eyes but not really following commands or verbalizing what was wrong. His pressor needs continued to increase. His Lasix drip was increased from 5 mg to 15 mg/h with very minimal urine output. ABG was drawn which demonstrated severe metabolic acidosis and the patient was reintubated, given a fluid bolus, 3 amps of IV bicarb, and calcium chloride. His potassium level was 6.1 and he was given IV insulin and dextrose. He continues to be coagulopathic with INR 2.9 this morning, was 2.5 yesterday after 2 days of vitamin K IV. HIT panel was negative. He continues to bounce between sinus rhythm and atrial fibrillation. He was restarted on vasopressin 0.02 units/min, Primacor was increased to 0.2 mcg/kg/min, and levo has been as high as 50 g/kg. Lactic acid this morning was 8.1, patient has been given fluid boluses and IV Lasix was stopped per pulmonology and nephrology. Vent changes being made per pulmonology. Random cortisol was > 123. Repeat echocardiogram ordered. The patient's has been updated and is in agreement with course of treatment. Objective - Vital Signs Vital signs: Vital Signs Temp 97.1 F L 11/24/17 05:00 Pulse 99 11/24/17 07:27 Resp 21 11/24/17 06:00 BP 119/54 11/24/17 06:00 Pulse Ox 100 11/24/17 06:00 Intake & Output 11/23/17 11/24/17 11/24/17 18:59 06:59 18:59 Intake Total 757.8 1049.590 135.012 Output Total 1135 375 15 Balance -377.2 674.590 120.012 Weight 79.1 kg Intake: IV 447.8 193 13 Calcium Chloride 500 mg 50 In Sodium Chloride 0.9% 50 ml @ 200 mls/hr IVPB ONCE ONE Rx#:[id number] Furosemide 250 mg In 85 Sodium Chloride 0.9% 225 ml @ 15 MG/HR 15 mls/hr IVP .[id number] [facility] Rx#: [id number] Lactated Ringers 1,000 ml 210 160 10 @ 20 mls/hr IV .Q24H [facility]ANNA Rx#:[id number] Norepinephrine 16 mg In 46.8 Dextrose 5% in Water 250 ml @ Titrate IV .Q0M JANNA Rx#:[id number] Phytonadione 10 mg In 50 Sodium Chloride 0.9% 50 ml @ 100 mls/hr IVPB ONCE [facility] Rx#:[id number] Pressure Bags 6 33 3 Intake, IV Titration 561.590 122.012 Amount Furosemide 250 mg In 250.000 93 Sodium Chloride 0.9% 225 ml @ 15 MG/HR 15 mls/hr IVP .[id number] [facility] Rx#: [id number] Milrinone-D5w Pmx 20 mg 61.59 In Dextrose/Water 1 100ml .bag @ 0.2 MCG/KG/MIN 4. 66 mls/hr IV .[id number] [facility]ANNA Rx#:[id number] Norepinephrine 16 mg In 250.000 29.012 Dextrose 5% in Water 250 ml @ Titrate IV .Q0M [facility]AN[facility] Rx#:[id number] Blood Product 310 295 Platelet Pheresis Acda2 295 Unit [id number] Rc As-1 Unit 310 [id number] Output: Chest Tube Drainage 280 260 10 left pleural 180 140 5 right pleural 100 120 5 Urine 855 115 5 Other: Voiding Method Indwelling Catheter Indwelling Catheter # Bowel Movements 0 0 ABP, PAP, CO, CI - Last Documented Arterial Blood Pressure 113/56 Pulmonary Artery Pressure 40/15 Cardiac Output 5.0 Cardiac Index 2.7 - Constitutional Constitutional Comment(s): Currently sedated on mechanical ventilation in no apparent distress - Respiratory Details: Lungs sounds diminished bilaterally. Respirations even, nonlabored on mechanical ventilation. Current ventilator settings assist control mode, FiO2 40%, tidal volume 450, respiratory rate 14, PEEP 5. 8.0 ET tube present, 25 at the lip after advancement this morning. Left pleural chest tube to continuous wall suction, 90 mL documented serosanguineous drainage overnight, 300 mL in 24 hours. Right pleural chest tube to continuous wall suction, 80 mL documented serosanguineous drainage overnight, 250 mL in 24 hours. No air leaks present. - Cardiovascular Details: S1, S2 present. Irregular, tachycardic rate and rhythm, atrial fibrillation on monitor. Sternum stable. A/V epicardial pacemaker wires present, grounded. Palpable peripheral pulses bilaterally. No edema present. Right radial arterial line, left brachial PICC line present. Levo being titrated as needed to keep MAP > 65, vasopressin currently infusing and 0.03 units per minute, Primacor currently at 0.02 mcg/kg/min. Heart hugger, antiembolism stockings, SCDs present. - Gastrointestinal Gastrointestinal Comment(s): Abdomen soft, nontender, nondistended. Active bowel sounds present 4 quadrants. OG tube present to low intermittent suction, minimal green drainage. Positive yellowish brown liquid stool, occult blood and C. diff sample sent. - Genitourinary Genitourinary Comment(s): Fong present draining concentrated urine. Output 5-10 mL/h overnight despite increase in Lasix drip from 5 mg/hr up to 15 mg/hr. - Integumentary Integumentary Comment(s): Skin warm and dry, right great toe, left baby toe starting to turn blue. Sternal incision well approximated and covered with dry intact dressing. Left lower extremity EVH site well approximated. - Neurologic Neurologic Comment(s): Currently sedated on mechanical ventilation. - Allied health notes Allied health notes reviewed: nursing - Labs CBC & Chem 7: 11/24/17 08:20 11/24/17 08:20 Labs: Abnormal Lab Results - Last 24 Hours (Table) 11/10/17 11/20/17 11/23/17 Range/Units 14:36 06:00 12:07 WBC (3.8-10.6) k/uL RBC (4.30-5.90) m/uL Hgb (13.0-17.5) gm/dL Hct (39.0-53.0) % RDW (11.5-15.5) % Plt Count (150-450) k/uL Neutrophils # (1.3-7.7) k/uL Lymphocytes # (1.0-4.8) k/uL PT (9.0-12.0) sec INR (<1.2) APTT (22.0-30.0) sec ABG pH (7.35-7.45) ABG pCO2 (35-45) mmHg ABG pO2 (83-108) mmHg ABG HCO3 (21-25) mmol/L ABG Total CO2 (19-24) mmol/L ABG O2 Saturation (94-97) % ABG Lactic Acid (0.5-1.6) mmol/L Sodium (137-145) mmol/L Potassium (3.5-5.1) mmol/L Carbon Dioxide (22-30) mmol/L BUN (9-20) mg/dL Creatinine (0.66-1.25) mg/dL Glucose (74-99) mg/dL POC Glucose (mg/dL) 165 H (75-99) mg/dL Calcium (8.4-10.2) mg/dL Phosphorus (2.5-4.5) mg/dL Magnesium (1.6-2.3) mg/dL Total Bilirubin (0.2-1.3) mg/dL AST (17-59) U/L ALT (21-72) U/L Total Protein (6.3-8.2) g/dL Albumin (3.5-5.0) g/dL Crossmatch See Detail See Detail 11/23/17 11/23/1718 Range/Units 15:44 17:10 21:08 WBC (3.8-10.6) k/uL RBC (4.30-5.90) m/uL Hgb (13.0-17.5) gm/dL Hct (39.0-53.0) % RDW (11.5-15.5) % Plt Count (150-450) k/uL Neutrophils # (1.3-7.7) k/uL Lymphocytes # (1.0-4.8) k/uL PT (9.0-12.0) sec INR (<1.2) APTT (22.0-30.0) sec ABG pH (7.35-7.45) ABG pCO2 29 L (35-45) mmHg ABG pO2 (83-108) mmHg ABG HCO3 18 L (21-25) mmol/L ABG Total CO2 (19-24) mmol/L ABG O2 Saturation (94-97) % ABG Lactic Acid (0.5-1.6) mmol/L Sodium (137-145) mmol/L Potassium (3.5-5.1) mmol/L Carbon Dioxide (22-30) mmol/L BUN (9-20) mg/dL Creatinine (0.66-1.25) mg/dL Glucose (74-99) mg/dL POC Glucose (mg/dL) 136 H 105 H (75-99) mg/dL Calcium (8.4-10.2) mg/dL Phosphorus (2.5-4.5) mg/dL Magnesium (1.6-2.3) mg/dL Total Bilirubin (0.2-1.3) mg/dL AST (17-59) U/L ALT (21-72) U/L Total Protein (6.3-8.2) g/dL Albumin (3.5-5.0) g/dL Crossmatch 11/24/17 11/24/17 11/24/17 Range/Units 04:15 04:15 04:15 WBC 13.5 H (3.8-10.6) k/uL RBC 2.69 L (4.30-5.90) m/uL Hgb 7.8 L (13.0-17.5) gm/dL Hct 24.9 L (39.0-53.0) % RDW 16.4 H (11.5-15.5) % Plt Count 47 L* (150-450) k/uL Neutrophils # 11.8 H (1.3-7.7) k/uL Lymphocytes # 0.2 L (1.0-4.8) k/uL PT 25.6 H (9.0-12.0) sec INR 2.9 H (<1.2) APTT (22.0-30.0) sec ABG pH (7.35-7.45) ABG pCO2 (35-45) mmHg ABG pO2 (83-108) mmHg ABG HCO3 (21-25) mmol/L ABG Total CO2 (19-24) mmol/L ABG O2 Saturation (94-97) % ABG Lactic Acid (0.5-1.6) mmol/L Sodium 136 L (137-145) mmol/L Potassium 6.1 H (3.5-5.1) mmol/L Carbon Dioxide 13 L (22-30) mmol/L BUN 101 H* (9-20) mg/dL Creatinine 3.00 H (0.66-1.25) mg/dL Glucose (74-99) mg/dL POC Glucose (mg/dL) (75-99) mg/dL Calcium 8.3 L (8.4-10.2) mg/dL Phosphorus 8.4 H* (2.5-4.5) mg/dL Magnesium 2.7 H (1.6-2.3) mg/dL Total Bilirubin 5.6 H (0.2-1.3) mg/dL AST 1047 H (17-59) U/L ALT 584 H (21-72) U/L Total Protein 5.7 L (6.3-8.2) g/dL Albumin 3.3 L (3.5-5.0) g/dL Crossmatch 11/24/17 11/24/17 11/24/17 Range/Units 04:15 05:11 06:18 WBC (3.8-10.6) k/uL RBC (4.30-5.90) m/uL Hgb (13.0-17.5) gm/dL Hct (39.0-53.0) % RDW (11.5-15.5) % Plt Count (150-450) k/uL Neutrophils # (1.3-7.7) k/uL Lymphocytes # (1.0-4.8) k/uL PT (9.0-12.0) sec INR (<1.2) APTT 31.5 H (22.0-30.0) sec ABG pH 7.10 L* 7.24 L (7.35-7.45) ABG pCO2 (35-45) mmHg ABG pO2 >400 H 213 H (83-108) mmHg ABG HCO3 13 L 16 L (21-25) mmol/L ABG Total CO2 14 L 18 L (19-24) mmol/L ABG O2 Saturation 99.9 H 99.7 H (94-97) % ABG Lactic Acid (0.5-1.6) mmol/L Sodium (137-145) mmol/L Potassium (3.5-5.1) mmol/L Carbon Dioxide (22-30) mmol/L BUN (9-20) mg/dL Creatinine (0.66-1.25) mg/dL Glucose (74-99) mg/dL POC Glucose (mg/dL) (75-99) mg/dL Calcium (8.4-10.2) mg/dL Phosphorus (2.5-4.5) mg/dL Magnesium (1.6-2.3) mg/dL Total Bilirubin (0.2-1.3) mg/dL AST (17-59) U/L ALT (21-72) U/L Total Protein (6.3-8.2) g/dL Albumin (3.5-5.0) g/dL Crossmatch 11/24/17 11/24/17 11/24/17 Range/Units 06:29 08:20 08:20 WBC 15.2 H (3.8-10.6) k/uL RBC 2.56 L (4.30-5.90) m/uL Hgb 7.4 L (13.0-17.5) gm/dL Hct 22.9 L (39.0-53.0) % RDW 16.8 H (11.5-15.5) % Plt Count 52 L (150-450) k/uL Neutrophils # 13.7 H (1.3-7.7) k/uL Lymphocytes # 0.3 L (1.0-4.8) k/uL PT (9.0-12.0) sec INR (<1.2) APTT (22.0-30.0) sec ABG pH (7.35-7.45) ABG pCO2 (35-45) mmHg ABG pO2 (83-108) mmHg ABG HCO3 (21-25) mmol/L ABG Total CO2 (19-24) mmol/L ABG O2 Saturation (94-97) % ABG Lactic Acid 8.1 H* (0.5-1.6) mmol/L Sodium (137-145) mmol/L Potassium 5.6 H (3.5-5.1) mmol/L Carbon Dioxide 16 L (22-30) mmol/L BUN 103 H* (9-20) mg/dL Creatinine 3.17 H (0.66-1.25) mg/dL Glucose 166 H (74-99) mg/dL POC Glucose (mg/dL) (75-99) mg/dL Calcium 8.1 L (8.4-10.2) mg/dL Phosphorus 7.5 H (2.5-4.5) mg/dL Magnesium (1.6-2.3) mg/dL Total Bilirubin 5.8 H (0.2-1.3) mg/dL AST 1301 H (17-59) U/L ALT 623 H (21-72) U/L Total Protein 5.3 L (6.3-8.2) g/dL Albumin 3.2 L (3.5-5.0) g/dL Crossmatch 11/24/17 Range/Units 08:33 WBC (3.8-10.6) k/uL RBC (4.30-5.90) m/uL Hgb (13.0-17.5) gm/dL Hct (39.0-53.0) % RDW (11.5-15.5) % Plt Count (150-450) k/uL Neutrophils # (1.3-7.7) k/uL Lymphocytes # (1.0-4.8) k/uL PT (9.0-12.0) sec INR (<1.2) APTT (22.0-30.0) sec ABG pH 7.28 L (7.35-7.45) ABG pCO2 (35-45) mmHg ABG pO2 125 H (83-108) mmHg ABG HCO3 16 L (21-25) mmol/L ABG Total CO2 17 L (19-24) mmol/L ABG O2 Saturation 98.9 H (94-97) % ABG Lactic Acid (0.5-1.6) mmol/L Sodium (137-145) mmol/L Potassium (3.5-5.1) mmol/L Carbon Dioxide (22-30) mmol/L BUN (9-20) mg/dL Creatinine (0.66-1.25) mg/dL Glucose (74-99) mg/dL POC Glucose (mg/dL) (75-99) mg/dL Calcium (8.4-10.2) mg/dL Phosphorus (2.5-4.5) mg/dL Magnesium (1.6-2.3) mg/dL Total Bilirubin (0.2-1.3) mg/dL AST (17-59) U/L ALT (21-72) U/L Total Protein (6.3-8.2) g/dL Albumin (3.5-5.0) g/dL Crossmatch - Imaging and Cardiology Chest x-ray: report reviewed, image reviewed Assessment and Plan (1) Congestive heart failure with cardiomyopathy Current Visit: Yes Status: Chronic Code(s): I50.9 - HEART FAILURE, UNSPECIFIED; I42.9 - CARDIOMYOPATHY, UNSPECIFIED SNOMED Code(s): 85597598 (2) Ischemic cardiomyopathy Current Visit: Yes Status: Chronic Code(s): I25.5 - ISCHEMIC CARDIOMYOPATHY SNOMED Code(s): 010327545 (3) Coronary artery disease Current Visit: Yes Status: Chronic Code(s): I25.10 - ATHSCL HEART DISEASE OF [place] CORONARY ARTERY W/O ANG PCTRS SNOMED Code(s): 25659832 (4) Diabetes mellitus Current Visit: Yes Status: Chronic Code(s): E11.9 - TYPE 2 DIABETES MELLITUS WITHOUT COMPLICATIONS SNOMED Code(s): 16873549 (5) Hyperlipidemia Current Visit: Yes Status: Chronic Code(s): E78.5 - HYPERLIPIDEMIA, UNSPECIFIED SNOMED Code(s): 61756627 (6) Mitral regurgitation Current Visit: Yes Status: Chronic Code(s): I34.0 - NONRHEUMATIC MITRAL ( VALVE) INSUFFICIENCY SNOMED Code(s): 68488056 (7) History of myocardial infarction Current Visit: No Status: Resolved Code(s): I25.2 - OLD MYOCARDIAL INFARCTION SNOMED Code(s): 617805343 (8) Tobacco dependence in remission Current Visit: No Status: Resolved Code(s): F17.201 - NICOTINE DEPENDENCE, UNSPECIFIED, IN REMISSION SNOMED Code(s): 947106078 Plan: 1. Continue low-dose aspirin. Continue to hold Plavix, and Arixtra. Per hematology vitamin K 5 mg IV given yesterday, would give another 5 mg IV today as well as FFP patient is to have invasive lines placed. Monitor patient for bleeding. 2. Continue beta michelle. Will increase beta michelle when able. RN instructed to give despite pressor use. 3. Statin discontinued secondary to elevated transaminases. Will restart when transaminases return to normal. 4. Continue amiodarone for A. fib prophylaxis. Decreased to 200 mg twice daily 5. Wean levo as tolerated. Primacor increased to 0.2 mcg/kg/min. vasopressin IV added. 6. Half amp calcium chloride, total 4 amp sodium bicarb IV given today. Patient to be started on bicarbonate drip per nephrology. 7. IV Lasix discontinued per pulmonology and nephrology. Fluid boluses given. 8. No nephrotoxic, hepatotoxic agents. 9. Keep Fong catheter for strict accurate intake and output. 10. Ventilator management, bronchodilators per pulmonology. 11. Will monitor daily labs and x-rays. Lactic acid this morning 8.1. Will repeat this afternoon. Will draw chahal-cultures. 12. Pain control with current medication regimen. 13. Stat echo completed, await cardiology read. 14. GI/DVT prophylaxis with Protonix and SCDs. 15. Stool sample sent for C. diff and occult blood. 16. Diabetic management per primary care service. 17. More recommendations to follow. Time with Patient: Greater than 30
[2017-11-24] MEDS: ASCORBIC ACID 500 MG TAB PO SCH ×2 (10:08→18:48)
[2017-11-24] MEDS: SERTRALINE 25 MG TAB PO SCH (10:08)
[2017-11-24] MEDS: MIDODRINE 5 MG TAB PO SCH ×4 (10:08→19:54)
[2017-11-24] MEDS: ASPIRIN 81 MG PO SCH (10:08)
[2017-11-24] MEDS: FERROUS SULFATE 325 MG TAB PO SCH ×2 (10:08→18:48)
[2017-11-24] MEDS: PANTOPRAZOLE 40 MG/10 ML VIAL IVP SCH (10:09)
[2017-11-24] MEDS: AMIODARONE 200 MG TAB PO SCH ×2 (10:09→21:29)
[2017-11-24] MEDS: CHLORHEXIDINE GLUCONATE 15 ML CUP MUCOUS MEM SCH ×2 (10:11→21:29)
[2017-11-24] MEDS ORDERED: PHYTONADIONE 10 MG in SODIUM CHLORIDE 0.9% 50 ML IVPB STA (10:30)
[2017-11-24] MEDS: MILRINONE-D5W PMX 20 MG in DEXTROSE/WATER 1 100ML.BAG IV SCH ×2 (10:38→10:39)
[2017-11-24 11:25] LABS: Glucose,Whole Blood 204 mg/dL (75-99)
--- NOTE | 2017-11-24 11:36 | ECHOF ---
Referral Reason:assess RV MEASUREMENTS -------- HEIGHT: 177.8 cm WEIGHT: 78.9 kg BP: 106/54 RVIDd: 3.7 cm (< 3.3) IVSd: 1.3 cm (0.6 - 1.1) LVIDd: 5.1 cm (3.9 - 5.3) LVPWd: 1.3 cm (0.6 - 1.1) IVSs: 1.6 cm LVIDs: 4.8 cm LVPWs: 1.7 cm LA Diam: 4.4 cm (2.7 - 3.8) LAESV Index (A-L): 35.61 ml/m Ao Diam: 3.4 cm (2.0 - 3.7) AV Cusp: 2.5 cm (1.5 - 2.6) MV EXCURSION: 15.271 mm (> 18.000) MV EF SLOPE: 48 mm/s (70 - 150) EPSS: 0.9 cm AV maxP.00 mmHg AV meanP.70 mmHg RAP: 15.00 mmHg RVSP: 42.48 mmHg FINDINGS -------- Resting tachycardia (HR>100bpm). This was a technically good study. The left ventricular size is normal. There is mild concentric left ventricular hypertrophy. Overa ll left ventricular systolic function is mild-moderately impaired with, an EF between 40 - 45 %. The right ventricle is mild to moderately enlarged. LA is moderately dilated 34-39 ml/m2 The right atrium is normal in size. Aortic valve is trileaflet and is mildly thickened. Peak/mean gradient across the Aortic Valve is 1 6.00mmHg / 8.70mmHg. The mitral valve leaflets are mildly thickened. Mild mitral annular calcification present. The p eak and mean MV gradients are 19.42mmHg 7.36mmHg as measured by doppler. [id number] mitral st enosis. Mild tricuspid regurgitation present. There is mild pulmonary hypertension. The right ventricular systolic pressure, as measured by Doppler, is 42.48mmHg. There is no pulmonic regurgitation present. The aortic root size is normal. The inferior vena cava is dilated with no significant inspiratory collapse which is consistent estima elieser right atrial pressure of >15 mmHg. There is no pericardial effusion. CONCLUSIONS -------- 1. Resting tachycardia (HR>100bpm). 2. This was a technically good study. 3. The left ventricular size is normal. 4. There is mild concentric left ventricular hypertrophy. 5. Overall left ventricular systolic function is mild-moderately impaired with, an EF between 40 - 45 %. 6. The right ventricle is mild to moderately enlarged. 7. LA is moderately dilated 34-39 ml/m2 8. The right atrium is normal in size. 9. Aortic valve is trileaflet and is mildly thickened. 10. Peak/mean gradient across the Aortic Valve is 16.00mmHg / 8.70mmHg. 11. The mitral valve leaflets are mildly thickened. 12. Mild mitral annular calcification present. 13. The peak and mean MV gradients are 19.42mmHg 7.36mmHg as measured by doppler. 14. Wbac-bg-zvkopgpw mitral stenosis. 15. Mild tricuspid regurgitation present. 16. There is mild pulmonary hypertension. 17. The right ventricular systolic pressure, as measured by Doppler, is 42.48mmHg. 18. There is no pulmonic regurgitation present. 19. The aortic root size is normal. 20. The inferior vena cava is dilated with no significant inspiratory collapse which is consistent es timated right atrial pressure of >15 mmHg. 21. There is no pericardial effusion. POULTRY DEBEAKER: Shanelle Moss RDCS
[2017-11-24] MEDS ORDERED: INSULIN ASPART 100 UNIT/ML 1 ML 10 ML VIAL SQ SCH (12:00)
[2017-11-24 12:17] LABS: ABG Base Excess -4.6 mmol/L; ABG HCO3 21 mmol/L (21-25); ABG Oxygen Saturation 99.1 % (94-97); ABG PCO2 35 mmHg (35-45); ABG PH 7.38 (7.35-7.45); ABG PO2 122 mmHg (83-108); ABG TCO2 22 mmol/L (19-24)
--- NOTE | 2017-11-24 13:04 | XR ---
EXAMINATION TYPE: XR chest 1V portable DATE OF EXAM: 11/24/2017 CLINICAL HISTORY: Central line placement TECHNIQUE: Single AP portable upright view of the chest is obtained. COMPARISON: Chest x-ray from earlier today and older studies FINDINGS: There is new left internal jugular central venous catheter terminating at cavoatrial junct ion. Endotracheal and orogastric tubes are stable. There is stable left-sided PICC line. There are stable bilateral chest tubes. There is redemonstration of epicardial pacer wires. Cardiac valvular ring and closure device are redemonstrated. Overlying sternal wires and mediastinal clips are redemonstrated. There is persistent cardiomegaly with small bilateral pleural effusions and mild interstitial edema b ilaterally. No new focal airspace opacity or pneumothorax is evident bilaterally. IMPRESSION: 1. New left internal jugular central venous catheter terminating at cavoatrial junction. No sizable p neumothorax. 2. Cardiomegaly with small bilateral pleural effusions and mild interstitial edema bilaterally redemo nstrated. No significant interval change.
--- NOTE | 2017-11-24 13:14 | P.PN ---
Subjective Progress Note Date: 11/24/17 Principal diagnosis: Thrombocytopenia requiring Anticoagulation on ventilator, Liver function and renal function worsening Objective - Vital Signs Vital signs: Vital Signs Temp 97.9 F 11/24/17 12:15 Pulse 118 H 11/24/17 12:15 Resp 10 L 11/24/17 12:15 BP 119/54 11/24/17 06:00 Pulse Ox 100 11/24/17 12:15 Intake & Output 11/23/17 11/24/17 11/24/17 18:59 06:59 18:59 Intake Total 757.8 1049.590 307.034 Output Total 1135 375 15 Balance -377.2 674.590 292.034 Weight 79.1 kg Intake: IV 447.8 193 13 Calcium Chloride 500 mg 50 In Sodium Chloride 0.9% 50 ml @ 200 mls/hr IVPB ONCE ONE Rx#:[id number] Furosemide 250 mg In 85 Sodium Chloride 0.9% 225 ml @ 15 MG/HR 15 mls/hr IVP .[id number] [facility] Rx#: [id number] Lactated Ringers 1,000 ml 210 160 10 @ 20 mls/hr IV .Q24H [facility] Rx#:[id number] Norepinephrine 16 mg In 46.8 Dextrose 5% in Water 250 ml @ Titrate IV .Q0M [facility] Rx#:[id number] Phytonadione 10 mg In 50 Sodium Chloride 0.9% 50 ml @ 100 mls/hr IVPB ONCE STA Rx#:[id number] Pressure Bags 6 33 3 Intake, IV Titration 561.590 294.034 Amount Furosemide 250 mg In 250.000 93 Sodium Chloride 0.9% 225 ml @ 15 MG/HR 15 mls/hr IVP .[id number] [facility] Rx#: [id number] Milrinone-D5w Pmx 20 mg 61.59 33.086 In Dextrose/Water 1 100ml .bag @ 0.2 MCG/KG/MIN 4. 66 mls/hr IV .[id number] [facility] Rx#:[id number] Norepinephrine 16 mg In 250.000 154.353 Dextrose 5% in Water 250 ml @ Titrate IV .Q0M [facility] Rx#:[id number] Propofol 1,000 mg In 13.595 Empty Bag 1 bag @ Titrate IV .Q0M [facility] Rx#: [id number] Blood Product 310 295 0 Ffp 24 Cpd Unit 0 [id number] Platelet Pheresis Acda2 295 Unit [id number] Rc As-1 Unit 310 [id number] Output: Chest Tube Drainage 280 260 10 left pleural 180 140 5 right pleural 100 120 5 Urine 855 115 5 Other: Voiding Method Indwelling Catheter Indwelling Catheter # Bowel Movements 0 0 ABP, PAP, CO, CI - Last Documented Arterial Blood Pressure 113/54 Pulmonary Artery Pressure 40/15 Cardiac Output 5.0 Cardiac Index 2.7 - Exam Ventilator, NAAD - Labs CBC & Chem 7: 11/24/17 08:20 11/24/17 08:20 Labs: Abnormal Lab Results - Last 24 Hours (Table) 11/10/17 11/20/17 11/23/17 Range/Units 14:36 06:00 15:44 WBC (3.8-10.6) k/uL RBC (4.30-5.90) m/uL Hgb (13.0-17.5) gm/dL Hct (39.0-53.0) % RDW (11.5-15.5) % Plt Count (150-450) k/uL Neutrophils # (1.3-7.7) k/uL Lymphocytes # (1.0-4.8) k/uL PT (9.0-12.0) sec INR (<1.2) APTT (22.0-30.0) sec ABG pH (7.35-7.45) ABG pCO2 29 L (35-45) mmHg ABG pO2 (83-108) mmHg ABG HCO3 18 L (21-25) mmol/L ABG Total CO2 (19-24) mmol/L ABG O2 Saturation (94-97) % ABG Lactic Acid (0.5-1.6) mmol/L Sodium (137-145) mmol/L Potassium (3.5-5.1) mmol/L Carbon Dioxide (22-30) mmol/L BUN (9-20) mg/dL Creatinine (0.66-1.25) mg/dL Glucose (74-99) mg/dL POC Glucose (mg/dL) (75-99) mg/dL Calcium (8.4-10.2) mg/dL Phosphorus (2.5-4.5) mg/dL Magnesium (1.6-2.3) mg/dL Total Bilirubin (0.2-1.3) mg/dL AST (17-59) U/L ALT (21-72) U/L Total Protein (6.3-8.2) g/dL Albumin (3.5-5.0) g/dL Crossmatch See Detail See Detail 11/23/17 11/23/17 11/24/17 Range/Units 17:10 21:08 04:15 WBC 13.5 H (3.8-10.6) k/uL RBC 2.69 L (4.30-5.90) m/uL Hgb 7.8 L (13.0-17.5) gm/dL Hct 24.9 L (39.0-53.0) % RDW 16.4 H (11.5-15.5) % Plt Count 47 L* (150-450) k/uL Neutrophils # 11.8 H (1.3-7.7) k/uL Lymphocytes # 0.2 L (1.0-4.8) k/uL PT (9.0-12.0) sec INR (<1.2) APTT (22.0-30.0) sec ABG pH (7.35-7.45) ABG pCO2 (35-45) mmHg ABG pO2 (83-108) mmHg ABG HCO3 (21-25) mmol/L ABG Total CO2 (19-24) mmol/L ABG O2 Saturation (94-97) % ABG Lactic Acid (0.5-1.6) mmol/L Sodium (137-145) mmol/L Potassium (3.5-5.1) mmol/L Carbon Dioxide (22-30) mmol/L BUN (9-20) mg/dL Creatinine (0.66-1.25) mg/dL Glucose (74-99) mg/dL POC Glucose (mg/dL) 136 H 105 H (75-99) mg/dL Calcium (8.4-10.2) mg/dL Phosphorus (2.5-4.5) mg/dL Magnesium (1.6-2.3) mg/dL Total Bilirubin (0.2-1.3) mg/dL AST (17-59) U/L ALT (21-72) U/L Total Protein (6.3-8.2) g/dL Albumin (3.5-5.0) g/dL Crossmatch 11/24/17 11/24/17 11/24/17 Range/Units 04:15 04:15 04:15 WBC (3.8-10.6) k/uL RBC (4.30-5.90) m/uL Hgb (13.0-17.5) gm/dL Hct (39.0-53.0) % RDW (11.5-15.5) % Plt Count (150-450) k/uL Neutrophils # (1.3-7.7) k/uL Lymphocytes # (1.0-4.8) k/uL PT 25.6 H (9.0-12.0) sec INR 2.9 H (<1.2) APTT 31.5 H (22.0-30.0) sec ABG pH (7.35-7.45) ABG pCO2 (35-45) mmHg ABG pO2 (83-108) mmHg ABG HCO3 (21-25) mmol/L ABG Total CO2 (19-24) mmol/L ABG O2 Saturation (94-97) % ABG Lactic Acid (0.5-1.6) mmol/L Sodium 136 L (137-145) mmol/L Potassium 6.1 H (3.5-5.1) mmol/L Carbon Dioxide 13 L (22-30) mmol/L BUN 101 H* (9-20) mg/dL Creatinine 3.00 H (0.66-1.25) mg/dL Glucose (74-99) mg/dL POC Glucose (mg/dL) (75-99) mg/dL Calcium 8.3 L (8.4-10.2) mg/dL Phosphorus 8.4 H* (2.5-4.5) mg/dL Magnesium 2.7 H (1.6-2.3) mg/dL Total Bilirubin 5.6 H (0.2-1.3) mg/dL AST 1047 H (17-59) U/L ALT 584 H (21-72) U/L Total Protein 5.7 L (6.3-8.2) g/dL Albumin 3.3 L (3.5-5.0) g/dL Crossmatch 11/24/17 11/24/17 11/24/17 Range/Units 05:11 06:18 06:29 WBC (3.8-10.6) k/uL RBC (4.30-5.90) m/uL Hgb (13.0-17.5) gm/dL Hct (39.0-53.0) % RDW (11.5-15.5) % Plt Count (150-450) k/uL Neutrophils # (1.3-7.7) k/uL Lymphocytes # (1.0-4.8) k/uL PT (9.0-12.0) sec INR (<1.2) APTT (22.0-30.0) sec ABG pH 7.10 L* 7.24 L (7.35-7.45) ABG pCO2 (35-45) mmHg ABG pO2 >400 H 213 H (83-108) mmHg ABG HCO3 13 L 16 L (21-25) mmol/L ABG Total CO2 14 L 18 L (19-24) mmol/L ABG O2 Saturation 99.9 H 99.7 H (94-97) % ABG Lactic Acid 8.1 H* (0.5-1.6) mmol/L Sodium (137-145) mmol/L Potassium (3.5-5.1) mmol/L Carbon Dioxide (22-30) mmol/L BUN (9-20) mg/dL Creatinine (0.66-1.25) mg/dL Glucose (74-99) mg/dL POC Glucose (mg/dL) (75-99) mg/dL Calcium (8.4-10.2) mg/dL Phosphorus (2.5-4.5) mg/dL Magnesium (1.6-2.3) mg/dL Total Bilirubin (0.2-1.3) mg/dL AST (17-59) U/L ALT (21-72) U/L Total Protein (6.3-8.2) g/dL Albumin (3.5-5.0) g/dL Crossmatch 11/24/17 11/24/17 11/24/17 Range/Units 08:20 08:20 08:33 WBC 15.2 H (3.8-10.6) k/uL RBC 2.56 L (4.30-5.90) m/uL Hgb 7.4 L (13.0-17.5) gm/dL Hct 22.9 L (39.0-53.0) % RDW 16.8 H (11.5-15.5) % Plt Count 52 L (150-450) k/uL Neutrophils # 13.7 H (1.3-7.7) k/uL Lymphocytes # 0.3 L (1.0-4.8) k/uL PT (9.0-12.0) sec INR (<1.2) APTT (22.0-30.0) sec ABG pH 7.28 L (7.35-7.45) ABG pCO2 (35-45) mmHg ABG pO2 125 H (83-108) mmHg ABG HCO3 16 L (21-25) mmol/L ABG Total CO2 17 L (19-24) mmol/L ABG O2 Saturation 98.9 H (94-97) % ABG Lactic Acid (0.5-1.6) mmol/L Sodium (137-145) mmol/L Potassium 5.6 H (3.5-5.1) mmol/L Carbon Dioxide 16 L (22-30) mmol/L BUN 103 H* (9-20) mg/dL Creatinine 3.17 H (0.66-1.25) mg/dL Glucose 166 H (74-99) mg/dL POC Glucose (mg/dL) (75-99) mg/dL Calcium 8.1 L (8.4-10.2) mg/dL Phosphorus 7.5 H (2.5-4.5) mg/dL Magnesium (1.6-2.3) mg/dL Total Bilirubin 5.8 H (0.2-1.3) mg/dL AST 1301 H (17-59) U/L ALT 623 H (21-72) U/L Total Protein 5.3 L (6.3-8.2) g/dL Albumin 3.2 L (3.5-5.0) g/dL Crossmatch 11/24/17 11/24/17 Range/Units 11:23 12:15 WBC (3.8-10.6) k/uL RBC (4.30-5.90) m/uL Hgb (13.0-17.5) gm/dL Hct (39.0-53.0) % RDW (11.5-15.5) % Plt Count (150-450) k/uL Neutrophils # (1.3-7.7) k/uL Lymphocytes # (1.0-4.8) k/uL PT (9.0-12.0) sec INR (<1.2) APTT (22.0-30.0) sec ABG pH (7.35-7.45) ABG pCO2 (35-45) mmHg ABG pO2 122 H (83-108) mmHg ABG HCO3 (21-25) mmol/L ABG Total CO2 (19-24) mmol/L ABG O2 Saturation 99.1 H (94-97) % ABG Lactic Acid (0.5-1.6) mmol/L Sodium (137-145) mmol/L Potassium (3.5-5.1) mmol/L Carbon Dioxide (22-30) mmol/L BUN (9-20) mg/dL Creatinine (0.66-1.25) mg/dL Glucose (74-99) mg/dL POC Glucose (mg/dL) 204 H (75-99) mg/dL Calcium (8.4-10.2) mg/dL Phosphorus (2.5-4.5) mg/dL Magnesium (1.6-2.3) mg/dL Total Bilirubin (0.2-1.3) mg/dL AST (17-59) U/L ALT (21-72) U/L Total Protein (6.3-8.2) g/dL Albumin (3.5-5.0) g/dL Crossmatch Assessment and Plan Plan: Assessment and Recommendations: 1. THrombocytopenia: - Likely secondary to Shock Liver and Consumption, less likely Heparin exposure. - fibrinogen 500, not consistent with a picture of DIC - Daily CBC - Transfuse to attempt a platelet count of 50K, 52 today 2. Prolonged INR/PT - coagulopathy - Worsening - Monitor Daily and deliver Vitamin K 10mg IV again today - INR = 2.9 today 2. Liver Transiminitis: - Likely secondary to shock liver. - No known history of underlying liver disease - Continue to monitor liver per management of primary team 3. Normocytic Anemia: - Monitor CBC, Transfuse for Hemoglobin less than 7 - Hemoglobin 7.4 today 4. Mitral valve regurgitation, post mitral valve repair 5. Ischemic cardiomyopathy, with severe left ventricular systolic dysfunction, with significantly impaired preoperative physical ejection fraction 6. Diabetes mellitus type 2, currently on insulin drip 7. Acute Renal Failure Physician Attestation: I have completed the full history and physical of this patient and discussed and agree with above dictation by Archie Avina NP. DIctated as a scribe
[2017-11-24] MEDS ORDERED: VANCOMYCIN IV PER PHARMACY 1 EACH MISC MISCELLANE PRN (13:27)
[2017-11-24 13:30] LABS: Anisocytosis Slight; HCT 20.4 % (39.0-53.0); HGB 7.1 gm/dL (13.0-17.5); MCH 30.9 pg (25.0-35.0); MCHC 34.9 g/dL (31.0-37.0); MCV 88.8 fL (80.0-100.0); Mean Platelet Volume 9.9; RDW 16.7 % (11.5-15.5); WBC 18.5 k/uL (3.8-10.6)
[2017-11-24 13:37] LABS: Calcium 7.9 mg/dL (8.4-10.2)
[2017-11-24 13:44] LABS: Platelet Count 48 k/uL (150-450)
[2017-11-24] MEDS ORDERED: VANCOMYCIN 1,250 MG in SODIUM CHLORIDE 0.9% 250 ML IVPB ONE (13:45)
[2017-11-24] MEDS: PIPERACILLIN-TAZOBACTAM 3.375 GM in DEXTROSE/WATER 1 50ML.BAG IVPB SCH ×2 (14:17→21:30)
[2017-11-24] MEDS: METOPROLOL TARTRATE 12.5 MG TAB PO SCH ×2 (14:28→21:29)
--- NOTE | 2017-11-24 14:38 | P.PN ---
Subjective Progress Note Date: 11/24/17 Principal diagnosis: Status post CABG and mitral valve repair, postoperative day #7 Mr. Silva is a 72-year-old white male patient of Dr. Wong, who presented today on 11/16/2017 for elective placement of intra-aortic balloon pump in preparation for three-vessel coronary artery bypass graft surgery and mitral valve repair for severe mitral valve insufficiency and ischemic cardiomyopathy with severely impaired systolic dysfunction. Surgery is scheduled for tomorrow 11/17/[address] Borjas. Patient has been having progressive exertional dyspnea for the last 2 years, and last 3 months patient started experiencing severe limitation of his exercise capacity, becoming quite dyspneic while climbing a flight of stairs. Patient denied any chest pain, palpitations, syncopal episodes. Patient started experiencing bilateral lower extremity edema , and he presented to his PCP for evaluation of his symptoms. Patient has been quite active in sports during his lifetime, in swimming and running. 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 Does not have any chronic pulmonary conditions, has a remote history of smoking, quit 40 years ago , smoked a pack a day for about 5 years. No marijuana use, no EtOH, or recreational drugs. 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 Patient had a heart catheterization on 11/09/2017 which showed calcification of left main coronary artery, with mild to moderate atherosclerotic plaque in the ostial portion, circumflex with a 95% stenosis, complete occlusion of the LAD just off to the origin of the large diagonal branch, and 70% stenosis of the diagonal branch. Diffuse disease in the RCA, with a 70% stenosis at the bifurcation into PDA and PLV, and significant disease in the PDA and PLV. All the vessels were noted to be irregular, ectatic and in places aneurysmal. LVEDP was 31 mm, without significant gradient across the aortic valve. PILAR on 11/10/2017 showed ischemic cardiomyopathy with severe left ventricular systolic dysfunction, akinetic inferior wall and the septum, hypokinetic anterior wall. Moderate pulmonary hypertension and moderate mitral regurgitation. Patient was recommended surgical intervention for his symptoms, and he opted for three- vessel coronary artery bypass grafting and mitral valve repair tomorrow. Bedside spirometry was reviewed and showed FEV1 of 1.35 L or 43% of predicted, FVC of 1.65 L or 38% of predicted, consistent with severe restriction. Preop chest x-ray from 11/10/2017 showed mild cardiomegaly with small to moderate- sized right greater than the left pleural effusions and associated compressive atelectasis. Patient is seen in the intensive care, resting in bed, room air pulse ox is 92-97%, he denies any dyspnea, he is afebrile, intra-aortic balloon pump is in place, via right femoral artery. He is currently on 1:1 IABP frequency, with augmented diastolic pressure of 131 mmHg. Distal pulses are intact, sensory status is intact. Fong catheter is in place, patient is nonoliguric. Radial pulses are intact. Patient is on heparin drip at 12 u/kg/ hr. No other drips. He is on oral Lasix at 40 mg daily. Currently resting in bed, in no acute distress. On 11/18/2017 the patient is being seen for a follow-up. Note that he had a prolonged surgery which involved a 4-vessel bypass surgery and mitral valve repair. The patient arrived to the intensive care unit around 7 PM in the evening. He was on an intra-aortic balloon pump. He was also inotropes. Chest x-ray was reviewed. The patient adequate expansion of both lungs. The patient a mediastinal chest tube in the right and left pleural chest tubes. Output from the chest as was considerably high especially from the mediastinal chest tube. Overnight the patient required a total of 4 units of packed RBCs and 4 units of 4 shows and plasma and 2 units of platelets and he also received DDAVP. He received also IV fluids in the form of crystalloids and colloids. The output from the sun chest gradually improved and earlier this morning it was only putting out 20 mL an hour and currently Dopplers somewhere between 20- 40 mL an hour. As for the right pleural chest tubes output initially was initially low and then picked up and it's up to 60-80 mL an hour. The left pleural chest tube is putting out 50 mL an hour. The patient is currently on norepinephrine infusion at 7 g per KG pigmented minutes. He is also on methadone at 0.3 g per KG pigmented minutes. He is also on vasopressin and dopamine. He is also on intra-aortic balloon pump with one-to-one augmentation. The augmented blood pressure is 91. Attempts to cut down the augmentation through the intra-aortic balloon pump has failed as the patient is pressure urine output. In terms of his respiratory status, the patient is a mechanical ventilator. He is currently on assist control mode of ventilation at the rate of 12 with an FiO2 of 4040% and a PEEP of 5 and FiO2 has been drop down to 40% and tidal volumes of 500. The morning blood gases showed a pH of 7.39 with a pCO2 of 40 and pO2 of 217, and note that this was done and FiO2 of 100%. His current FiO2 is down to 40%. Renal function stable with a creatinine of 0.8. Rest of the electrodes are all within normal limits. Correlation profile is within normal limits. Most recent hemoglobin is at 7.3. The patient was sedated with Diprivan and the patient is currently off Diprivan and when it parameters are being checked. Urine output is in order of 30-40 mL an hour over the past 2 hours. His most recent blood sugar is at 137. On 11/19/2017 and seeing this patient for a follow-up. This patient is status post four-vessel bypass surgery and mitral valve replacement. Is postop day # 2. Note that the patient was extubated yesterday without any major difficulties and currently is on oxygen by nasal cannula 2 L/m. The chest x- ray shows adequate expansion of both lungs. There is some pulmonary vessel congestion. The patient has all of these chest tubes in place. The [place] catheter is also in place. As far as his breathing status, is not having any respiratory difficulties. Sternum stable clean and intact. The chest tube output over the past 12 hours was 20 mL from the mediastinum, to 90 mL from the right pleural and for 90 mL from the left poor. His most recent hemodynamic parameters shows a cardiac output of 4.8 with an index of 2.5. He has elevated intra-aortic balloon pump was a one-to-one augmentation throughout the night and currently is down to 1-2 augmentation and his augmented mean arterial blood pressures around 72. He is producing adequate amount of urine output. As far as pressors, the patient is on a combination of Primacor at 0.2 g, norepinephrine which is ranging between 1 and 6 g, dopamine at 2.5 Pedro grams per KG pigmented, and vasopressin at physiologic dose of 0.02 units per hour. He is also on lactated Ringer at 40 mL an hour and the patient is currently off insulin drip. No significant events overnight. Is afebrile. He is awake and alert. Moving all 4 extremities and he has adequate pulses in 4 extremities. On 11/20/2017, the patient is being seen in follow-up. The patient is still in the intensive care unit postop day #3. He has done very well post extubation. The intra-aortic balloon pump was discontinued. Hemodynamically, he still requiring pressors and currently the patient is on levo fed at around 5 g per KG pigmented. He is on milrinone at 0.2 micrograms per KG and he is also on vasopressin at physiologic dose of 0.03 units an hour. The patient is off dopamine. Overall cardiac index is somewhat between 2.2 and 2.3. PA diastolic pressures around 17. Urine output dropped over the past hour down to 50 mL an hour. The patient was receiving a unit of packed RBC. Output from the chest tube has been 700 mL on the left pleural over the past 24 hours is 700 mL on the left pleural 500 mL on the right pleural and there is no mediastinal chest tube that was pulled out yesterday. The patient is still on insulin drip for blood sugar control. He is awake and alert. He is feeling very weak and lethargic. He answers questions and follows commands. Trying to use incentive spirometer. The surgical wound site is dry clean and intact. Hemoglobin today is at 7.0. Rated count is at 76. Creatinine is stable at 1.2. Overnight the patient went into to establish with rapid ventricular response. The patient was given to loading dose of amiodarone. Currently is on a maintenance and eye doctor maintenance down to 0.5 mg/m. Around 1 AM this morning the patient converted back to normal sinus rhythm. On 11/21/2017, I'm seeing this patient for a follow-up. Is postop day #4. He remains extubated on 2 L of oxygen by nasal cannula. Intra-aortic balloon pump has been discontinued. The patient has the [place] catheter in place. PA pressures are 33/14. The cardiac index is at 2.4. The patient is on milrinone at 0.1. The patient is also on levo fed and the dose varies between 2-50 mics per KG per minute knowing that the patient is a very labile blood pressure. He is having occasional hypotension and subsequent hypertension and based on that the titration of the levo fed is being done. The patient has developed an acute kidney injury. Creatinine is up to 1.8. He also developed an acute liver injury, probably a shock liver due to low flow state. The patient was receiving diuretics yesterday and currently diuretics on hold. He received 2 units of packed RBC yesterday. He also received 5% albumin, 250 mL yesterday. Urine output is no other of 10 mL an hour. He has a pleural chest tube on the right and on the left, the output from the right is 350 over the past 24 hours unless put out 400 mL over the past 24 hours. Overnight, the patient has short runs of paroxysmal atrial fibrillation and current his rhythm is sinus. Amiodarone is at the maintenance of 400 mg by mouth twice a day. The hemoglobin is at 7.7. Chest x-ray shows some mild increase in pulmonary vascular markings. Chest tubes are in good location. There is no evidence of pneumothorax. Limited bibasilar infiltrates seen and small effusions. He is awake. He is alert. Aspirin was kept on 2 baby dose as the patient developed thrombocytopenia. He is still on Plavix. He is on Arixtra for DVT prophylaxis Reevaluated on 11/22/2017, patient is postoperative day #5, remains on nasal cannula at 2 L, in atrial flutter, receiving amiodarone to control his atrial flutter and possibly convert him. patient is on norepinephrine, being titrated to possibly discontinue if possible. His blood pressure seems to be labile, but at least at present seems to be stable. Renal functioning is getting worse , patient is to be seen by nephrology on consultation. Labs today showed hemoglobin of 7.4 WBC count of 8.6 platelets are low at 27,000. BUN is 66 creatinine 2.22. Liver enzymes were also noted to be elevated, however improving in the last 24 hours but remain elevated. Chest x-ray showed minimal atelectasis no evidence of pneumothorax. On 11/23/2017 patient is seen again in the intensive care unit. His night he had episode of confusion, and agitation for which Ativan was given. Currently he sitting up in the chair, in no acute distress, pulse ox on 2 L per nasal cannula is 96%, vital signs are stable, patient is afebrile. Remains tachycardic in atrial flutter, has heart rate between 1:15 and 120 BPM. His chest x-ray has been reviewed by Dr. Harmon and shows a rotated film, but mostly atelectatic changes, no pulmonary edema, we disagree with the interpretation by radiologist. He remains on milrinone at 0.1 mics per kilo per minute, small dose levo fed at 5 mics per minute, and Lasix drip at 5 mg per hour. She received a small fluid bolus yesterday per nephrology with no significant improvement in urine output. This decision was made to start patient on IV Lasix, currently urine output is ranging from 35-75 ML per hour. No significant swelling in bilateral lower extremities, sounds are positive for minimal crackles over left posterior base, patient appears to be intravascularly dry. His labs were reviewed, shows the PVC of 12.0, hemoglobin 7.4, patient will receive 1 unit of packed red blood cells. INR of 2.5, sodium of 134, potassium is 5.2, B1 is 89 and creatinine is 2.3. LFTs are trending down. Patient's incentive spirometry use has been poor. Patient has left pleural chest tube to continuous wall suction, and there has been 30 mL of serosanguineous drainage overnight, 300 mL in the last 24 hours. Right pleural chest tube with 30 amount of serosanguineous drainage overnight and 350 ML in last 24 hours, no air leak present. On 11/24/2017, patient is back on mechanical ventilation, developed significant shortness of breath last night, he became quite restless confused agitated, and could not follow any verbal commands.. Urine output was minimal in spite of of Lasix at 15 mg per hour. All labs were noted to be abnormal, patient developed worsening metabolic acidosis, worsening anemia thrombocytopenia and INR was also noted to be elevated at 2.9. ABG this morning following intubation showed a pO2 of more than 400 pCO2 of 41 however his pH was 7.10. Patient received 3 Amps of sodium bicarb, follow-up ABG was done and we recommended placing the patient on sodium bicarb drip. Most recent ABG at 12:15 PM showed a pO2 of 122 pCO2 of 35 pH of 7.38 and now he is on 40% FiO2. Tidal volume of 450 assist- control rate of 14 and PEEP of 5. Lasix drip was discontinued, I recommended volume replacement, patient was given fluid boluses, and was also given fresh frozen plasma lactic acid this morning was noted to be 8.1. Hence I recommended empiric antibiotics in the form of vancomycin and Zosyn. I believe his lactic acidosis is mostly hypoperfusion in nature, sepsis is felt to be less likely but not entirely ruled out. Patient is now on norepinephrine is also on vasopressin both are being titrated accordingly. Left IJ central line was placed for pressors to be infused. Had a long discussion regarding this patient with cardiac surgery on the case. Also discussed his condition with the it quality analyst and we all in agreement to discontinue Lasix drip at this point. Chest x-ray showed evidence of cardiomegaly small bilateral pleural effusions, minimal interstitial changes bilaterally no significant pulmonary edema is noted. Objective - Vital Signs Vital signs: Vital Signs Temp 97.9 F 11/24/17 12:15 Pulse 118 H 11/24/17 12:15 Resp 10 L 11/24/17 12:15 BP 119/54 11/24/17 06:00 Pulse Ox 100 11/24/17 12:15 Intake & Output 11/23/17 11/24/17 11/24/17 18:59 06:59 18:59 Intake Total 757.8 1049.590 347.659 Output Total 1135 375 15 Balance -377.2 674.590 332.659 Weight 79.1 kg Intake: IV 447.8 193 13 Calcium Chloride 500 mg 50 In Sodium Chloride 0.9% 50 ml @ 200 mls/hr IVPB ONCE ONE Rx#:[id number] Furosemide 250 mg In 85 Sodium Chloride 0.9% 225 ml @ 15 MG/HR 15 mls/hr IVP .[id number] [facility] Rx#: [id number] Lactated Ringers 1,000 ml 210 160 10 @ 20 mls/hr IV .Q24H [facility] Rx#:[id number] Norepinephrine 16 mg In 46.8 Dextrose 5% in Water 250 ml @ Titrate IV .Q0M [facility] Rx#:[id number] Phytonadione 10 mg In 50 Sodium Chloride 0.9% 50 ml @ 100 mls/hr IVPB ONCE STA Rx#:[id number] Pressure Bags 6 33 3 Intake, IV Titration 561.590 334.659 Amount Furosemide 250 mg In 250.000 93 Sodium Chloride 0.9% 225 ml @ 15 MG/HR 15 mls/hr IVP .[id number] [facility] Rx#: [id number] Milrinone-D5w Pmx 20 mg 61.59 33.086 In Dextrose/Water 1 100ml .bag @ 0.2 MCG/KG/MIN 4. 66 mls/hr IV .[id number] [facility] Rx#:[id number] Norepinephrine 16 mg In 250.000 194.978 Dextrose 5% in Water 250 ml @ Titrate IV .Q0M [facility] Rx#:[id number] Propofol 1,000 mg In 13.595 Empty Bag 1 bag @ Titrate IV .Q0M [facility] Rx#: [id number] Blood Product 310 295 0 Ffp 24 Cpd Unit 0 [id number] Platelet Pheresis Acda2 295 Unit [id number] Rc As-1 Unit 310 [id number] Output: Chest Tube Drainage 280 260 10 left pleural 180 140 5 right pleural 100 120 5 Urine 855 115 5 Other: Voiding Method Indwelling Catheter Indwelling Catheter # Bowel Movements 0 0 ABP, PAP, CO, CI - Last Documented Arterial Blood Pressure 113/54 Pulmonary Artery Pressure 40/15 Cardiac Output 5.0 Cardiac Index 2.7 - Exam GENERAL EXAM: Revealed a 72-year-old white male, on mechanical ventilation, sedated, in no distress. Endotracheal tube is intact. HEAD: Normocephalic/atraumatic. Endotracheal tube is intact. EYES: Normal reaction of pupils, equal size. Conjunctiva pink, sclera white. NOSE: Clear with pink turbinates. THROAT: No erythema or exudates. NECK: No masses, no JVD, no thyroid enlargement, no adenopathy. CHEST: No chest wall deformity. Symmetrical expansion. Breath sounds are equal and symmetrical. Sternum stable clean and intact. All of the chest tubes are in place LUNGS: Equal air entry with no crackles, wheeze, rhonchi or dullness. CVS: Regular rate and rhythm, normal S1 and S2, no gallops, no rubs, systolic murmur at the apex. Adequate pulses in the lower extremities bilaterally ABDOMEN: Soft, nontender. No hepatosplenomegaly, normal bowel sounds, no guarding or rigidity. EXTREMITIES: No clubbing, no edema, no cyanosis, 1+ pulses and upper and lower extremities. MUSCULOSKELETAL: Muscle strength and tone normal. SPINE: No scoliosis or deformity SKIN: No rashes CENTRAL NERVOUS SYSTEM: Cannot be assessed, patient is sedated on mechanical ventilation. However the patient doesn't respond to pain. PSYCHIATRIC: Cannot be assessed - Labs CBC & Chem 7: 11/24/17 13:05 11/24/17 13:05 Labs: Abnormal Lab Results - Last 24 Hours (Table) 11/10/17 11/20/17 11/23/17 Range/Units 14:36 06:00 15:44 WBC (3.8-10.6) k/uL RBC (4.30-5.90) m/uL Hgb (13.0-17.5) gm/dL Hct (39.0-53.0) % RDW (11.5-15.5) % Plt Count (150-450) k/uL Neutrophils # (1.3-7.7) k/uL Lymphocytes # (1.0-4.8) k/uL PT (9.0-12.0) sec INR (<1.2) APTT (22.0-30.0) sec ABG pH (7.35-7.45) ABG pCO2 29 L (35-45) mmHg ABG pO2 (83-108) mmHg ABG HCO3 18 L (21-25) mmol/L ABG Total CO2 (19-24) mmol/L ABG O2 Saturation (94-97) % ABG Lactic Acid (0.5-1.6) mmol/L Sodium (137-145) mmol/L Potassium (3.5-5.1) mmol/L Carbon Dioxide (22-30) mmol/L BUN (9-20) mg/dL Creatinine (0.66-1.25) mg/dL Glucose (74-99) mg/dL POC Glucose (mg/dL) (75-99) mg/dL Calcium (8.4-10.2) mg/dL Phosphorus (2.5-4.5) mg/dL Magnesium (1.6-2.3) mg/dL Total Bilirubin (0.2-1.3) mg/dL AST (17-59) U/L ALT (21-72) U/L Total Protein (6.3-8.2) g/dL Albumin (3.5-5.0) g/dL Crossmatch See Detail See Detail 11/23/17 11/23/17 11/24/17 Range/Units 17:10 21:08 04:15 WBC 13.5 H (3.8-10.6) k/uL RBC 2.69 L (4.30-5.90) m/uL Hgb 7.8 L (13.0-17.5) gm/dL Hct 24.9 L (39.0-53.0) % RDW 16.4 H (11.5-15.5) % Plt Count 47 L* (150-450) k/uL Neutrophils # 11.8 H (1.3-7.7) k/uL Lymphocytes # 0.2 L (1.0-4.8) k/uL PT (9.0-12.0) sec INR (<1.2) APTT (22.0-30.0) sec ABG pH (7.35-7.45) ABG pCO2 (35-45) mmHg ABG pO2 (83-108) mmHg ABG HCO3 (21-25) mmol/L ABG Total CO2 (19-24) mmol/L ABG O2 Saturation (94-97) % ABG Lactic Acid (0.5-1.6) mmol/L Sodium (137-145) mmol/L Potassium (3.5-5.1) mmol/L Carbon Dioxide (22-30) mmol/L BUN (9-20) mg/dL Creatinine (0.66-1.25) mg/dL Glucose (74-99) mg/dL POC Glucose (mg/dL) 136 H 105 H (75-99) mg/dL Calcium (8.4-10.2) mg/dL Phosphorus (2.5-4.5) mg/dL Magnesium (1.6-2.3) mg/dL Total Bilirubin (0.2-1.3) mg/dL AST (17-59) U/L ALT (21-72) U/L Total Protein (6.3-8.2) g/dL Albumin (3.5-5.0) g/dL Crossmatch 11/24/17 11/24/17 11/24/17 Range/Units 04:15 04:15 04:15 WBC (3.8-10.6) k/uL RBC (4.30-5.90) m/uL Hgb (13.0-17.5) gm/dL Hct (39.0-53.0) % RDW (11.5-15.5) % Plt Count (150-450) k/uL Neutrophils # (1.3-7.7) k/uL Lymphocytes # (1.0-4.8) k/uL PT 25.6 H (9.0-12.0) sec INR 2.9 H (<1.2) APTT 31.5 H (22.0-30.0) sec ABG pH (7.35-7.45) ABG pCO2 (35-45) mmHg ABG pO2 (83-108) mmHg ABG HCO3 (21-25) mmol/L ABG Total CO2 (19-24) mmol/L ABG O2 Saturation (94-97) % ABG Lactic Acid (0.5-1.6) mmol/L Sodium 136 L (137-145) mmol/L Potassium 6.1 H (3.5-5.1) mmol/L Carbon Dioxide 13 L (22-30) mmol/L BUN 101 H* (9-20) mg/dL Creatinine 3.00 H (0.66-1.25) mg/dL Glucose (74-99) mg/dL POC Glucose (mg/dL) (75-99) mg/dL Calcium 8.3 L (8.4-10.2) mg/dL Phosphorus 8.4 H* (2.5-4.5) mg/dL Magnesium 2.7 H (1.6-2.3) mg/dL Total Bilirubin 5.6 H (0.2-1.3) mg/dL AST 1047 H (17-59) U/L ALT 584 H (21-72) U/L Total Protein 5.7 L (6.3-8.2) g/dL Albumin 3.3 L (3.5-5.0) g/dL Crossmatch 11/24/17 11/24/17 11/24/17 Range/Units 05:11 06:18 06:29 WBC (3.8-10.6) k/uL RBC (4.30-5.90) m/uL Hgb (13.0-17.5) gm/dL Hct (39.0-53.0) % RDW (11.5-15.5) % Plt Count (150-450) k/uL Neutrophils # (1.3-7.7) k/uL Lymphocytes # (1.0-4.8) k/uL PT (9.0-12.0) sec INR (<1.2) APTT (22.0-30.0) sec ABG pH 7.10 L* 7.24 L (7.35-7.45) ABG pCO2 (35-45) mmHg ABG pO2 >400 H 213 H (83-108) mmHg ABG HCO3 13 L 16 L (21-25) mmol/L ABG Total CO2 14 L 18 L (19-24) mmol/L ABG O2 Saturation 99.9 H 99.7 H (94-97) % ABG Lactic Acid 8.1 H* (0.5-1.6) mmol/L Sodium (137-145) mmol/L Potassium (3.5-5.1) mmol/L Carbon Dioxide (22-30) mmol/L BUN (9-20) mg/dL Creatinine (0.66-1.25) mg/dL Glucose (74-99) mg/dL POC Glucose (mg/dL) (75-99) mg/dL Calcium (8.4-10.2) mg/dL Phosphorus (2.5-4.5) mg/dL Magnesium (1.6-2.3) mg/dL Total Bilirubin (0.2-1.3) mg/dL AST (17-59) U/L ALT (21-72) U/L Total Protein (6.3-8.2) g/dL Albumin (3.5-5.0) g/dL Crossmatch 11/24/17 11/24/17 11/24/17 Range/Units 08:20 08:20 08:33 WBC 15.2 H (3.8-10.6) k/uL RBC 2.56 L (4.30-5.90) m/uL Hgb 7.4 L (13.0-17.5) gm/dL Hct 22.9 L (39.0-53.0) % RDW 16.8 H (11.5-15.5) % Plt Count 52 L (150-450) k/uL Neutrophils # 13.7 H (1.3-7.7) k/uL Lymphocytes # 0.3 L (1.0-4.8) k/uL PT (9.0-12.0) sec INR (<1.2) APTT (22.0-30.0) sec ABG pH 7.28 L (7.35-7.45) ABG pCO2 (35-45) mmHg ABG pO2 125 H (83-108) mmHg ABG HCO3 16 L (21-25) mmol/L ABG Total CO2 17 L (19-24) mmol/L ABG O2 Saturation 98.9 H (94-97) % ABG Lactic Acid (0.5-1.6) mmol/L Sodium (137-145) mmol/L Potassium 5.6 H (3.5-5.1) mmol/L Carbon Dioxide 16 L (22-30) mmol/L BUN 103 H* (9-20) mg/dL Creatinine 3.17 H (0.66-1.25) mg/dL Glucose 166 H (74-99) mg/dL POC Glucose (mg/dL) (75-99) mg/dL Calcium 8.1 L (8.4-10.2) mg/dL Phosphorus 7.5 H (2.5-4.5) mg/dL Magnesium (1.6-2.3) mg/dL Total Bilirubin 5.8 H (0.2-1.3) mg/dL AST 1301 H (17-59) U/L ALT 623 H (21-72) U/L Total Protein 5.3 L (6.3-8.2) g/dL Albumin 3.2 L (3.5-5.0) g/dL Crossmatch 11/24/17 11/24/17 11/24/17 Range/Units 11:23 12:15 13:05 WBC 18.5 H (3.8-10.6) k/uL RBC 2.30 L (4.30-5.90) m/uL Hgb 7.1 L (13.0-17.5) gm/dL Hct 20.4 L (39.0-53.0) % RDW 16.7 H (11.5-15.5) % Plt Count 48 L* (150-450) k/uL Neutrophils # (1.3-7.7) k/uL Lymphocytes # (1.0-4.8) k/uL PT (9.0-12.0) sec INR (<1.2) APTT (22.0-30.0) sec ABG pH (7.35-7.45) ABG pCO2 (35-45) mmHg ABG pO2 122 H (83-108) mmHg ABG HCO3 (21-25) mmol/L ABG Total CO2 (19-24) mmol/L ABG O2 Saturation 99.1 H (94-97) % ABG Lactic Acid (0.5-1.6) mmol/L Sodium (137-145) mmol/L Potassium (3.5-5.1) mmol/L Carbon Dioxide (22-30) mmol/L BUN (9-20) mg/dL Creatinine (0.66-1.25) mg/dL Glucose (74-99) mg/dL POC Glucose (mg/dL) 204 H (75-99) mg/dL Calcium (8.4-10.2) mg/dL Phosphorus (2.5-4.5) mg/dL Magnesium (1.6-2.3) mg/dL Total Bilirubin (0.2-1.3) mg/dL AST (17-59) U/L ALT (21-72) U/L Total Protein (6.3-8.2) g/dL Albumin (3.5-5.0) g/dL Crossmatch 11/24/17 Range/Units 13:05 WBC (3.8-10.6) k/uL RBC (4.30-5.90) m/uL Hgb (13.0-17.5) gm/dL Hct (39.0-53.0) % RDW (11.5-15.5) % Plt Count (150-450) k/uL Neutrophils # (1.3-7.7) k/uL Lymphocytes # (1.0-4.8) k/uL PT (9.0-12.0) sec INR (<1.2) APTT (22.0-30.0) sec ABG pH (7.35-7.45) ABG pCO2 (35-45) mmHg ABG pO2 (83-108) mmHg ABG HCO3 (21-25) mmol/L ABG Total CO2 (19-24) mmol/L ABG O2 Saturation (94-97) % ABG Lactic Acid (0.5-1.6) mmol/L Sodium (137-145) mmol/L Potassium (3.5-5.1) mmol/L Carbon Dioxide (22-30) mmol/L BUN 109 H* (9-20) mg/dL Creatinine 2.99 H (0.66-1.25) mg/dL Glucose 192 H (74-99) mg/dL POC Glucose (mg/dL) (75-99) mg/dL Calcium 7.9 L (8.4-10.2) mg/dL Phosphorus (2.5-4.5) mg/dL Magnesium (1.6-2.3) mg/dL Total Bilirubin (0.2-1.3) mg/dL AST (17-59) U/L ALT (21-72) U/L Total Protein (6.3-8.2) g/dL Albumin (3.5-5.0) g/dL Crossmatch Assessment and Plan Assessment: #1. Symptomatic multivessel coronary artery disease, with total occlusion of the LAD, 70% stenosis of the diagonal artery, 95% stenosis of the circumflex, diffuse disease in the RCA with 70% stenosis at the bifurcation of the PDA and PLV. Patient is scheduled for coronary artery bypass grafting and mitral valve repair on 11/17/2017 On 11/18/2017, the patient is postop day #1. The patient underwent coronary artery bypass surgery and mitral valve repair. The patient had an intra-aortic balloon pump inserted preoperatively and the balloon pump is still active with one-to-one augmentation. The patient is also on a combination of inotropes including vasopressin, norepinephrine, milrinone, and renal dose dopamine. The urine output is adequate and the blood pressure augmented is around 95. The patient is producing adequate amount of urine output. On 11/19/2017, the patient is postop day #2. He has undergone coronary artery bypass surgery with 4 vessels and mitral valve repair. The patient is extubated he is currently on 2 L of oxygen by nasal cannula. Output from the chest tube has dropped considerably although the left pleural is still active. No evidence of any air leaks. Chest x-ray shows adequate expansion of both lungs with small pleural effusions. The patient is oxygenating well. The patient is hemodynamically doing better. Intra-aortic balloon pump is still in place with 1-2 augmentation. Pressors are being titrated and the current combination includes norepinephrine infusion, dopamine infusion, Primacor infusion and vasopressin. Note that the dopamine is at renal dose and there vasopressin is at physiologic dose. Norepinephrine infusion is running between 1 and 6 g per KG pigmented./min On 11/20/2017 the patient is postop day #3. He is looking better. He is off the intra-aortic balloon pump. History requiring pressors. We will given a unit of packed RBC and manages pressors based on his hemodynamic parameters. One concern is a drop in urine output over going to monitor that and this will hopefully improve following the packed RBC transfusion. Continue the milrinone and continue the norepinephrine infusion for now. On 11/21/2017 the patient is postop day #4. He is extubated. He is still having issues with his hemodynamics. He is requiring pressors. There is a labile blood pressure. The patient was diuresed yesterday and currently he is in a low output state with diminished urine output and hypotension and he has also developed an acute kidney injury with acute shock liver type of picture. He is having paroxysmal atrial fibrillation currently on amiodarone maintenance and current rhythm is sinus mechanism. On 11/22/2017, patient is postoperative day #5, presently on nasal cannula, major issues include issues related to his atrial flutter, renal failure, elevated liver enzymes, acute shock liver, all being addressed accordingly. On 11/24/2017, patient is postoperative day #7, required reintubation and mechanical ventilation overnight presently on empiric antibiotics, pressors including norepinephrine and vasopressin is also on amiodarone, Lasix drip was discontinued. We will cautiously give the patient some volume. Will be receiving blood transfusion and fresh frozen plasma will have embedded case manager evaluate for enteral feeding. #2. Mitral valve regurgitation, post mitral valve repair #3. Ischemic cardiomyopathy, with severe left ventricular systolic dysfunction , with significantly impaired preoperative physical ejection fraction #4 postoperative bleeding via chest tubes. The mediastinal chest tube was removed and the patient has a pleural chest tubes in place #5. Diabetes mellitus type 2, currently on insulin drip #6. Remote history of nicotine dependence, patient quit 40 years ago, carries 5 -pack-year smoking history #7. Postoperative anemia with a hemoglobin of of 7.0 and the patient will be receiving units of packed RBC. There is an expected outcome of surgery #8. Diabetic retinopathy #9 hypovolemic hypotension, possibility of sepsis is not entirely ruled out, but felt to be less likely clinically. Patient will be given volume, would hold diuretics, and will empirically place on antibiotics. Plan: Continue present supportive care measures, discussed the patient's condition with the different consultants on the case. Left IJ central line was placed, will ask embedded case manager evaluate for enteral feeding. Prognosis is definitely guarded at this point. If his renal status does not improve much, and if his hemodynamic status improves, may have to seriously consider dialysis. Critical care time is 35 minutes not including the time placed on central line placement. Time with Patient: Greater than 30
[2017-11-24] MEDS ORDERED: CALCIUM CHLORIDE 1,000 MG in SODIUM CHLORIDE 0.9% 100 ML IVPB STA (14:58)
[2017-11-24 15:01] LABS: Glucose,Whole Blood 227 mg/dL (75-99)
[2017-11-24] MEDS ORDERED: INSULIN REGULAR BOLUS (FROM DRIP BAG) IV PRN (15:06)
[2017-11-24 15:13] LABS: ABG HCO3 24 mmol/L (21-25); ABG Oxygen Saturation 99.6 % (94-97); ABG PCO2 36 mmHg (35-45); ABG PH 7.42 (7.35-7.45); ABG PO2 139 mmHg (83-108); ABG TCO2 25 mmol/L (19-24)
--- NOTE | 2017-11-24 15:16 | PN ---
PROGRESS NOTE Patient is seen for followup for acute kidney injury. Overnight, patient's general condition worsened. He became more hypotensive and was also intubated secondary to worsening respiratory status. This morning, he was found to have elevated lactic acid levels. His stool for occult blood was positive. The patient was transfused 1 unit packed RBCs yesterday and hemoglobin today is at 7.1, it was at 7.4 g/dL yesterday. No active bleeding is noted. Currently, patient has since received a fluid bolus and continues to have no urine output. PHYSICAL EXAMINATION: On examination, patient is currently sedated. Heart rate 116 per minute. Blood pressure 115/52. He is afebrile. Examination of the heart, S1, S2. Examination of the lungs, bilateral breath sounds are heard. Abdomen is soft, nontender. Examination of the lower extremities shows no significant edema. LABS: Show sodium 138, potassium 5.0, BUN 109, serum creatinine 2.9. Hemoglobin was 7.1 g/dL. ASSESSMENT: 1. Acute kidney injury, acute tubular necrosis secondary to hypotension, hypoperfusion, currently oliguric. Initially patient responded to Lasix. However, he is currently much more hypotensive and in shock with the possibility of underlying infection. There is also ongoing gastrointestinal bleed. At this time, patient needs to be hydrated. I will start him on bicarb drip and continue with IV fluids in an attempt to try and wean down the pressors. He also has elevated lactic acid levels for which he needs to be hydrated. We may need to transfuse another unit packed RBCs depending on his repeat hemoglobin. 2. Ventilator-dependent respiratory failure. 3. Status post coronary artery bypass surgery and mitral valve replacement. 4. Congestive heart failure, ejection fraction has not worsened on repeat echocardiogram. 5. Hyperkalemia, associated with acute kidney injury and ongoing gastrointestinal bleed. PLAN: Start IV bicarb. Monitor hemoglobin. Continue to avoid nephrotoxic agents and repeat labs. Hold off on Lasix for now. MMODL / IJN: [id number] /
[2017-11-24] MEDS ORDERED: SODIUM CHLORIDE 0.9% 500 ML IV SCH (15:30)
--- NOTE | 2017-11-24 15:43 | CONS ---
CONSULTATION This patient's EMR was reviewed. The patient's condition has deteriorated over the last 24 hours and this morning patient was found to be have significant metabolic acidosis and lactic acidosis. Patient was intubated. The patient's urine output remained poor and he was tried on the Lasix drip up to 15 mg but since this morning, patient has a very poor urine output and patient is being considered for dialysis. The patient's heart rate is 100 to 110 per minute. Blood pressure is 90-100 systolic. First and second heart sounds are heard. Lungs examination reveals bilateral diminished air entry. The blood gases this morning showed pH of 7.10, pCO2 is 41, PO2 is 44, bicarb was 14 with a base excess of -16. Lactic acid was 8.1, hemoglobin is 7.4. Heart: First and second heart sounds are heard. Lungs: The lungs reveal bilateral diminished air entry. The patient's BUN is 103 and creatinine is 3.17. AST is 13.01. FINAL IMPRESSION: This patient is status post mitral valve repair and coronary artery bypass surgery. The patient is most in likely cardiogenic shock but the blood cultures can be obtained to rule out any underlying sepsis. Patient's condition remains very critical. Continue the supportive treatment. MMODL / IJN: [id number] /
[2017-11-24] MEDS: INSULIN REGULAR 100 UNIT in SODIUM CHLORIDE 0.9% 100 ML IV SCH (16:09)
[2017-11-24 16:10] LABS: Glucose,Whole Blood 217 mg/dL (75-99)
--- NOTE | 2017-11-24 16:51 | P.PN ---
Subjective Progress Note Date: 11/24/17 This is a pleasant gentleman patient of Dr. Spann, newly established to the office to evaluate shortness of breath, dyspnea on exertion, underwent cardiac cath and found to have ischemic cardiomyopathy with severe LV dysfunction, triple-vessel disease prior to bypass surgery, admitted for bypass surgery and valve repair. He has underlying history of diabetes mellitus type 2, hyperlipidemia, Cardiac cath performed 11/09/2017 shows left main coronary up was calcified, circumflex 95% stenosis in the ostial portion, LAD totally occluded just of to the origin of the large diagonal branch, diagonal branch from the percent stenosis, 70% stenosis in the PDA and PLV severe left ventricle systolic dysfunction and mitral regurgitation He is currently in ICU being prepped for CABG and mitral valve repair on 2017 and has intra-aortic balloon pump done through the right femoral artery. 11/17: Patient is having open-heart surgery today. 11/18: Patient is status post quadruple coronary artery bypass grafting using the left internal mammary artery to the left anterior descending coronary artery, a reverse greater saphenous vein graft from the aorta to the diagonal coronary artery, reverse greater saphenous vein graft from the aorta to the first obtuse marginal coronary artery, a reverse greater saphenous vein graft from the aorta to the posterior descending coronary artery and mitral valve repair. Patient remains in the intensive care unit intubated and on mechanical ventilation currently on CPAP for weaning parameters. He continues to have intra-aortic balloon pump in place which is plan to keep for 1 more day. He has a right, left and mediastinal chest tubes in place draining serosanguineous fluid. Urine output is 50-60 mL per hour. He is also on vasopressors. Hemoglobin A1c is 6.7. 8: Patient remains in the intensive care unit. He is currently off oxygen and pulse oxing. He continues to have all [address] Balloon pump was removed. Urine output has been adequate. White count is normal. Hemoglobin 7.3, INR 1.5, creatinine 0.93, blood sugars are running between 104 and 127. He has been afebrile. Heart rate running in the 90s. Blood pressure is stable with current vasopressors. Pulse ox is 9700% on room air. Patient denies having any chest pain. No abdominal pain. No nausea. 84. Patient examined the bedside in the ICU. Currently off oxygen. He is not making enough urine output. Creatinine function has worsened from 0.8-1.2. Hemoglobin 7 this morning status post transfusion 1 unit PRBC. Patient is denies any chest pain, shortness of breath is resting comfortably in the chair. He still continues to have [address] with a AARON drain. Blood sugar between 100-125. 11/21 patient examined bedside in the ICU. Brief episode of atrial fibrillation last night and one dose of IV amiodarone given followed by a maintenance dose Afinitor on 400 mg twice a day. Creatinine increased to 1.8 today. Patient is having minimal urine output with less than 10 mL per hour. Patient may benefit from IV fluids as he has minimal oral intake and has minimal urine output. One bag of 250 mg abdomen given today. Patient received 2 units of PRBCs C yesterday. No bowel movements for the past 3 days. Patient is passing gas. Continue with bowel regimen 11/22: Patient hasn't been noted to have increasing renal numbers with BUN of 66 and creatinine 2.2 and nephrology has been consult did. Patient is also noted to have low urine output and dark urine. He is not eating very much. Patient is more lethargic today. He denies any abdominal pain. Heart rate is controlled in a sinus rhythm. He is currently on oral amiodarone and Lopressor for atrial fibrillation. No anticoagulation due to thrombocytopenia. He is currently off label fed but continued on Primacor. 11/23: Patient has been seen by hematology for thrombocytopenia secondary to shock liver and consumption. Fibrinogen to be checked. Patient be transfused if platelet count is less than 50,000. One dose of vitamin K was given for INR of 1.8 yesterday. INR today is at 2.5, platelet count 41. BUN 89, creatinine 2.30, AST 1470, ALT 721. Urinalysis is turbid, leukoesterase moderate, RBCs greater than 182, wbc's 37, Patient has also been seen by nephrology for acute kidney injury, acute tubular necrosis, oliguria. Recommendations to transfuse if hemoglobin is falls below 7.4 fluid bolus was attempted without improvement and patient was started on Lasix drip. Patient is also continued on Primacor. Urine output has been 35-75 mL per hour. Heart rate has been elevated in the low 100s. Patient has received calcium chloride 1 dose yesterday and repeat today. He was started on Midodrine 10 mg 3 times daily yesterday. He is more lethargic today. He has failed a swallow eval and speech therapy added. Patient has been started on Zoloft for depression but patient appears to be more acute delirium. Patient has been on and off norepinephrine as his blood pressures dropping into the 80 systolic when he sleeps. 11/24: Lasix drip has been discontinued. Patient has received 4 A of bicarbonate is on a bicarb drip. Patient is on levothyroxine and vasopressin along with Primacor. He has received vitamin K and pressure frozen plasma. Urine output is 15-20 mL per hour. Central line was placed today requiring of fresh frozen plasma and vitamin K. There is concern for need of hemodialysis. Patient has diarrhea after having constipation and fecal management system has been placed. His mental status continued to decline yesterday and by this morning he was re -intubated. White count is increasing to 18.5, hemoglobin 7.1, platelet count 48. INR is 2.9, BUN 103, creatinine 3.17, phosphorus 7.5, magnesium 2.7, AST 1301, ALT 623. Total bilirubin is 5.8. Cortisol level was greater than 123. Patient will be resumed back on insulin drip due to hyperglycemia. Echocardiogram reveals EF of 40-45%, mild concentric left ventricular hypertrophy, and only mild gently dilated 34-39, moderate mitral stenosis, mild tricuspid regurgitation, mild pulmonary hypertension Objective - Vital Signs Vital signs: Vital Signs Temp 97.1 F L 11/24/17 05:00 Pulse 99 11/24/17 07:27 Resp 21 11/24/17 06:00 BP 119/54 11/24/17 06:00 Pulse Ox 100 11/24/17 06:00 Intake & Output 11/23/17 11/24/17 11/24/17 18:59 06:59 18:59 Intake Total 757.8 1049.590 168.098 Output Total 1135 375 15 Balance -377.2 674.590 153.098 Weight 79.1 kg Intake: IV 447.8 193 13 Calcium Chloride 500 mg 50 In Sodium Chloride 0.9% 50 ml @ 200 mls/hr IVPB ONCE ONE Rx#:[id number] Furosemide 250 mg In 85 Sodium Chloride 0.9% 225 ml @ 15 MG/HR 15 mls/hr IVP .[id number] [facility] Rx#: [id number] Lactated Ringers 1,000 ml 210 160 10 @ 20 mls/hr IV .Q24H [facility] Rx#:[id number] Norepinephrine 16 mg In 46.8 Dextrose 5% in Water 250 ml @ Titrate IV .Q0M [facility] Rx#:[id number] Phytonadione 10 mg In 50 Sodium Chloride 0.9% 50 ml @ 100 mls/hr IVPB ONCE [facility] Rx#:[id number] Pressure Bags 6 33 3 Intake, IV Titration 561.590 155.098 Amount Furosemide 250 mg In 250.000 93 Sodium Chloride 0.9% 225 ml @ 15 MG/HR 15 mls/hr IVP .[id number] [facility] Rx#: [id number] Milrinone-D5w Pmx 20 mg 61.59 33.086 In Dextrose/Water 1 100ml .bag @ 0.2 MCG/KG/MIN 4. 66 mls/hr IV .[id number] [facility] Rx#:[id number] Norepinephrine 16 mg In 250.000 29.012 Dextrose 5% in Water 250 ml @ Titrate IV .Q0M [facility] Rx#:[id number] Blood Product 310 295 Platelet Pheresis Acda2 295 Unit [id number] Rc As-1 Unit 310 [id number] Output: Chest Tube Drainage 280 260 10 left pleural 180 140 5 right pleural 100 120 5 Urine 855 115 5 Other: Voiding Method Indwelling Catheter Indwelling Catheter # Bowel Movements 0 0 ABP, PAP, CO, CI - Last Documented Arterial Blood Pressure 113/56 Pulmonary Artery Pressure 40/15 Cardiac Output 5.0 Cardiac Index 2.7 - Exam General appearance: average body habitus, cooperative, no acute distress - EENT Eyes: anicteric sclerae, EOMI, PERRLA, dentition normal, normal appearance no vision in the left eye blurring of the cornea with spelling ENT: NA/AT, normal oropharynx, intubated and on mechanical ventilation - Respiratory Respiratory: bilateral: CTA, negative: diminished, dullness, rales, rhonchi, wheezing, continues to have right pleural, left pleural chest tubes in place. - Cardiovascular Rhythm: Regularly irregular Heart sounds: normal: S1, S2 Abnormal Heart Sounds: no systolic murmur, no diastolic murmur, no rub, no S3 Gallop, no S4 Gallop, no click, no other - Gastrointestinal General gastrointestinal: normal bowel sounds, soft, Fong draining clear dark urine - Integumentary Integumentary: normal, normal turgor - Neurologic Neurologic: Sedated - Musculoskeletal Musculoskeletal: gait not assessed, strength equal bilaterally - Labs CBC & Chem 7: 11/24/17 13:05 11/24/17 13:05 Labs: Abnormal Lab Results - Last 24 Hours (Table) 11/10/17 11/20/17 11/23/17 Range/Units 14:36 06:00 12:07 WBC (3.8-10.6) k/uL RBC (4.30-5.90) m/uL Hgb (13.0-17.5) gm/dL Hct (39.0-53.0) % RDW (11.5-15.5) % Plt Count (150-450) k/uL Neutrophils # (1.3-7.7) k/uL Lymphocytes # (1.0-4.8) k/uL PT (9.0-12.0) sec INR (<1.2) APTT (22.0-30.0) sec ABG pH (7.35-7.45) ABG pCO2 (35-45) mmHg ABG pO2 (83-108) mmHg ABG HCO3 (21-25) mmol/L ABG Total CO2 (19-24) mmol/L ABG O2 Saturation (94-97) % ABG Lactic Acid (0.5-1.6) mmol/L Sodium (137-145) mmol/L Potassium (3.5-5.1) mmol/L Carbon Dioxide (22-30) mmol/L BUN (9-20) mg/dL Creatinine (0.66-1.25) mg/dL Glucose (74-99) mg/dL POC Glucose (mg/dL) 165 H (75-99) mg/dL Calcium (8.4-10.2) mg/dL Phosphorus (2.5-4.5) mg/dL Magnesium (1.6-2.3) mg/dL Total Bilirubin (0.2-1.3) mg/dL AST (17-59) U/L ALT (21-72) U/L Total Protein (6.3-8.2) g/dL Albumin (3.5-5.0) g/dL Crossmatch See Detail See Detail 11/23/17 11/23/17 11/23/17 Range/Units 15:44 17:10 21:08 WBC (3.8-10.6) k/uL RBC (4.30-5.90) m/uL Hgb (13.0-17.5) gm/dL Hct (39.0-53.0) % RDW (11.5-15.5) % Plt Count (150-450) k/uL Neutrophils # (1.3-7.7) k/uL Lymphocytes # (1.0-4.8) k/uL PT (9.0-12.0) sec INR (<1.2) APTT (22.0-30.0) sec ABG pH (7.35-7.45) ABG pCO2 29 L (35-45) mmHg ABG pO2 (83-108) mmHg ABG HCO3 18 L (21-25) mmol/L ABG Total CO2 (19-24) mmol/L ABG O2 Saturation (94-97) % ABG Lactic Acid (0.5-1.6) mmol/L Sodium (137-145) mmol/L Potassium (3.5-5.1) mmol/L Carbon Dioxide (22-30) mmol/L BUN (9-20) mg/dL Creatinine (0.66-1.25) mg/dL Glucose (74-99) mg/dL POC Glucose (mg/dL) 136 H 105 H (75-99) mg/dL Calcium (8.4-10.2) mg/dL Phosphorus (2.5-4.5) mg/dL Magnesium (1.6-2.3) mg/dL Total Bilirubin (0.2-1.3) mg/dL AST (17-59) U/L ALT (21-72) U/L Total Protein (6.3-8.2) g/dL Albumin (3.5-5.0) g/dL Crossmatch 11/24/17 11/24/17 11/24/17 Range/Units 04:15 04:15 04:15 WBC 13.5 H (3.8-10.6) k/uL RBC 2.69 L (4.30-5.90) m/uL Hgb 7.8 L (13.0-17.5) gm/dL Hct 24.9 L (39.0-53.0) % RDW 16.4 H (11.5-15.5) % Plt Count 47 L* (150-450) k/uL Neutrophils # 11.8 H (1.3-7.7) k/uL Lymphocytes # 0.2 L (1.0-4.8) k/uL PT 25.6 H (9.0-12.0) sec INR 2.9 H (<1.2) APTT (22.0-30.0) sec ABG pH (7.35-7.45) ABG pCO2 (35-45) mmHg ABG pO2 (83-108) mmHg ABG HCO3 (21-25) mmol/L ABG Total CO2 (19-24) mmol/L ABG O2 Saturation (94-97) % ABG Lactic Acid (0.5-1.6) mmol/L Sodium 136 L (137-145) mmol/L Potassium 6.1 H (3.5-5.1) mmol/L Carbon Dioxide 13 L (22-30) mmol/L BUN 101 H* (9-20) mg/dL Creatinine 3.00 H (0.66-1.25) mg/dL Glucose (74-99) mg/dL POC Glucose (mg/dL) (75-99) mg/dL Calcium 8.3 L (8.4-10.2) mg/dL Phosphorus 8.4 H* (2.5-4.5) mg/dL Magnesium 2.7 H (1.6-2.3) mg/dL Total Bilirubin 5.6 H (0.2-1.3) mg/dL AST 1047 H (17-59) U/L ALT 584 H (21-72) U/L Total Protein 5.7 L (6.3-8.2) g/dL Albumin 3.3 L (3.5-5.0) g/dL Crossmatch 11/24/17 11/24/17 11/24/17 Range/Units 04:15 05:11 06:18 WBC (3.8-10.6) k/uL RBC (4.30-5.90) m/uL Hgb (13.0-17.5) gm/dL Hct (39.0-53.0) % RDW (11.5-15.5) % Plt Count (150-450) k/uL Neutrophils # (1.3-7.7) k/uL Lymphocytes # (1.0-4.8) k/uL PT (9.0-12.0) sec INR (<1.2) APTT 31.5 H (22.0-30.0) sec ABG pH 7.10 L* 7.24 L (7.35-7.45) ABG pCO2 (35-45) mmHg ABG pO2 >400 H 213 H (83-108) mmHg ABG HCO3 13 L 16 L (21-25) mmol/L ABG Total CO2 14 L 18 L (19-24) mmol/L ABG O2 Saturation 99.9 H 99.7 H (94-97) % ABG Lactic Acid (0.5-1.6) mmol/L Sodium (137-145) mmol/L Potassium (3.5-5.1) mmol/L Carbon Dioxide (22-30) mmol/L BUN (9-20) mg/dL Creatinine (0.66-1.25) mg/dL Glucose (74-99) mg/dL POC Glucose (mg/dL) (75-99) mg/dL Calcium (8.4-10.2) mg/dL Phosphorus (2.5-4.5) mg/dL Magnesium (1.6-2.3) mg/dL Total Bilirubin (0.2-1.3) mg/dL AST (17-59) U/L ALT (21-72) U/L Total Protein (6.3-8.2) g/dL Albumin (3.5-5.0) g/dL Crossmatch 11/24/17 11/24/17 11/24/17 Range/Units 06:29 08:20 08:20 WBC 15.2 H (3.8-10.6) k/uL RBC 2.56 L (4.30-5.90) m/uL Hgb 7.4 L (13.0-17.5) gm/dL Hct 22.9 L (39.0-53.0) % RDW 16.8 H (11.5-15.5) % Plt Count 52 L (150-450) k/uL Neutrophils # 13.7 H (1.3-7.7) k/uL Lymphocytes # 0.3 L (1.0-4.8) k/uL PT (9.0-12.0) sec INR (<1.2) APTT (22.0-30.0) sec ABG pH (7.35-7.45) ABG pCO2 (35-45) mmHg ABG pO2 (83-108) mmHg ABG HCO3 (21-25) mmol/L ABG Total CO2 (19-24) mmol/L ABG O2 Saturation (94-97) % ABG Lactic Acid 8.1 H* (0.5-1.6) mmol/L Sodium (137-145) mmol/L Potassium 5.6 H (3.5-5.1) mmol/L Carbon Dioxide 16 L (22-30) mmol/L BUN 103 H* (9-20) mg/dL Creatinine 3.17 H (0.66-1.25) mg/dL Glucose 166 H (74-99) mg/dL POC Glucose (mg/dL) (75-99) mg/dL Calcium 8.1 L (8.4-10.2) mg/dL Phosphorus 7.5 H (2.5-4.5) mg/dL Magnesium (1.6-2.3) mg/dL Total Bilirubin 5.8 H (0.2-1.3) mg/dL AST 1301 H (17-59) U/L ALT 623 H (21-72) U/L Total Protein 5.3 L (6.3-8.2) g/dL Albumin 3.2 L (3.5-5.0) g/dL Crossmatch 11/24/17 Range/Units 08:33 WBC (3.8-10.6) k/uL RBC (4.30-5.90) m/uL Hgb (13.0-17.5) gm/dL Hct (39.0-53.0) % RDW (11.5-15.5) % Plt Count (150-450) k/uL Neutrophils # (1.3-7.7) k/uL Lymphocytes # (1.0-4.8) k/uL PT (9.0-12.0) sec INR (<1.2) APTT (22.0-30.0) sec ABG pH 7.28 L (7.35-7.45) ABG pCO2 (35-45) mmHg ABG pO2 125 H (83-108) mmHg ABG HCO3 16 L (21-25) mmol/L ABG Total CO2 17 L (19-24) mmol/L ABG O2 Saturation 98.9 H (94-97) % ABG Lactic Acid (0.5-1.6) mmol/L Sodium (137-145) mmol/L Potassium (3.5-5.1) mmol/L Carbon Dioxide (22-30) mmol/L BUN (9-20) mg/dL Creatinine (0.66-1.25) mg/dL Glucose (74-99) mg/dL POC Glucose (mg/dL) (75-99) mg/dL Calcium (8.4-10.2) mg/dL Phosphorus (2.5-4.5) mg/dL Magnesium (1.6-2.3) mg/dL Total Bilirubin (0.2-1.3) mg/dL AST (17-59) U/L ALT (21-72) U/L Total Protein (6.3-8.2) g/dL Albumin (3.5-5.0) g/dL Crossmatch Assessment and Plan Plan: (1) Coronary artery disease and moderate mitral valve regurgitation Triple vessel disease noted on cardiac cath agent status post CABG and mitral valve repair on all 11/17/2017. Continue on aspirin, metoprolol. ICU senior sharepoint developer Dr. Paul/Delonte on consult. Continue current management per cardio vascular surgery team (2) Ischemic cardiomyopathy Has impaired ejection fraction of 38%, along with congestive heart failure. (3) Congestive heart failure with cardiomyopathy Acute on chronic systolic and diastolic heart failure (4) Hyperlipidemia Patient currently not on statins (5) GI prophylaxis (6) DVT prophylaxis (7) Steal syndrome, subclavian Carotid Dopplers 11/10/2017 shows no carotid stenosis however there is to and fro flow within the right vertebral artery could reflect manifestation of subclavian steal physiology prior to with continuous flow reversal. Currently asymptomatic continue to monitor (8) Pulmonary hypertension PILAR on 11/10/2017, moderate pulmonary hypertension also shows intact atrial septum with no evidence of [id number] shunt physiology, unable to locate pressures for right ventricular systolic 9. Thrombocytopenia secondary to consumption. Fibrinogen ordered. Patient is off aspirin, Plavix and Arixtra. Consult with oncology appreciated. Recommendations for platelet transfusion if less than 50,000. 10. Anemia, secondary to a combination of acute blood loss and renal failure with drop in hemoglobin from 10-6.5. Patient is status post multiple blood products. 11. Acute kidney injury, acute tubular necrosis, oliguric secondary to hypotension, hypoperfusion. Consult with nephrology appreciated. Off Lasix drip. Status post IV bicarbonate and currently on a drip to repeat labs this afternoon. 12. Post op atrial fibrillation, expected outcome of surgery. Patient has been on amiodarone and Lopressor. 13. Liver transaminitis and coagulopathy secondary to shock liver oncology consult appreciated. Continue to monitor closely. Statin is on hold. 14. Depression, situational. Zoloft was subsequently discontinued. 15. Acute delirium secondary to acute illness. Patient is currently sedated. 16. Hyperglycemia without diabetes. Patient resumed on insulin drip. Hemoglobin A1c is 6.7. 17. Cardiorenal syndrome and cardiogenic shock requiring IV vasopressors. 18. Diarrhea with possible acute GI bleed with acute blood loss anemia. Fecal management system has been placed. Stool for occult blood is positive. The deficit toxin is negative Discharge plan: To be determined Impression and plan of care have been directed as dictated by the signing physician. Amy Renteria nurse practitioner acting as scribe for signing physician.
--- NOTE | 2017-11-24 17:04 | PCN ---
PROCEDURE NOTE PROCEDURE PERFORMED: Placement of the left internal jugular central triple-lumen catheter. PREOPERATIVE DIAGNOSIS: Acute respiratory failure, status post mitral valve repair hypotension requiring pressors. POSTOPERATIVE DIAGNOSIS: Acute respiratory failure, status post mitral valve repair, hypotension requiring pressors. ANESTHESIA USED: 2 mL of 1% lidocaine. DESCRIPTION OF THE PROCEDURE: Patient was placed in a supine position, the area of the left neck was prepared in a sterile fashion and drapes were applied. The area posterior to the posterior belly of the sternocleidomastoid was locally anesthetized. Then, using a standard central line kit, the needle was inserted using the posterior approach to cannulate the left internal jugular vein. It was easily cannulated with 1 stick, a guidewire was placed, the area was dilated around the guidewire, and then a triple-lumen catheter was inserted over the guidewire, the guidewire was removed. Good blood flow was noted in the 3 different ports of the triple-lumen catheter. The line was secured using 3.0 silk sutures. The chest x-ray postoperatively showed no evidence of any immediate complications. MMODL / IJN: [id number] /
[2017-11-24 17:11] LABS: Glucose,Whole Blood 187 mg/dL (75-99)
[2017-11-24 18:09] LABS: Glucose,Whole Blood 194 mg/dL (75-99)
[2017-11-24 19:06] LABS: Glucose,Whole Blood 178 mg/dL (75-99)
[2017-11-24 20:32] LABS: Glucose,Whole Blood 167 mg/dL (75-99)
[2017-11-24 21:15] LABS: Glucose,Whole Blood 151 mg/dL (75-99)
[2017-11-24] MEDS: MELATONIN 5 MG TABLET PO SCH (21:28)
[2017-11-24] MEDS: prednisoLONE ACETATE 1% OPHTH DROPS 5 ML BTL LEFT EYE SCH (21:29)
[2017-11-24] MEDS: SENNOSIDES-DOCUSATE SODIUM 1 EACH TAB PO SCH (21:29)
[2017-11-24] MEDS: ERYTHROMYCIN 5 MG/GM OPHTH OINT 3.5 GM TUBE LEFT EYE SCH (21:30)
[2017-11-24 22:13] LABS: Glucose,Whole Blood 143 mg/dL (75-99)
[2017-11-24 23:13] LABS: Glucose,Whole Blood 135 mg/dL (75-99)
[2017-11-25 01:04] LABS: Glucose,Whole Blood 133 mg/dL (75-99)
[2017-11-25] MEDS: PROPOFOL 1,000 MG in EMPTY BAG 1 BAG IV SCH ×3 (01:17→23:43)
[2017-11-25] MEDS: NOREPINEPHRINE 16 MG in DEXTROSE 5% IN WATER 250 ML IV SCH ×4 (01:18→12:12)
[2017-11-25 02:08] LABS: Glucose,Whole Blood 128 mg/dL (75-99)
[2017-11-25 04:14] LABS: Glucose,Whole Blood 130 mg/dL (75-99)
[2017-11-25 05:16] LABS: Glucose,Whole Blood 134 mg/dL (75-99)
[2017-11-25 05:31] LABS: Anisocytosis Slight; Basophils % (A) 0 %; Eosinophils # (A) 0.1 k/uL (0-0.7); Eosinophils % (A) 0 %; HCT 21.6 % (39.0-53.0); HGB 7.2 gm/dL (13.0-17.5); Ionized Calcium 4.5 mg/dL (4.5-5.3); Lymphocytes # (A) 0.8 k/uL (1.0-4.8); Lymphocytes % (A) 4 %; MCH 29.6 pg (25.0-35.0); MCHC 33.2 g/dL (31.0-37.0); MCV 88.9 fL (80.0-100.0); Mean Platelet Volume 9.7; Monocytes % (A) 6 %; Neutrophils # (A) 15.3 k/uL (1.3-7.7); Neutrophils % (A) 86 %; RBC 2.43 m/uL (4.30-5.90); RDW 17.1 % (11.5-15.5); WBC 17.8 k/uL (3.8-10.6)
[2017-11-25 05:34] LABS: Platelet Count 64 k/uL (150-450)
[2017-11-25 05:35] LABS: Partial Thromboplastin Time 32.1 sec (22.0-30.0); Prothrombin Time 18.5 sec (9.0-12.0)
[2017-11-25 05:38] LABS: Albumin 2.8 g/dL (3.5-5.0); Calcium 7.8 mg/dL (8.4-10.2); Magnesium 2.4 mg/dL (1.6-2.3); Potassium 4.3 mmol/L (3.5-5.1); Total Bilirubin 5.4 mg/dL (0.2-1.3); Total Protein 5.2 g/dL (6.3-8.2)
[2017-11-25 06:26] LABS: Glucose,Whole Blood 124 mg/dL (75-99)
[2017-11-25] MEDS: FERROUS SULFATE 325 MG TAB PO SCH ×2 (06:44→17:32)
[2017-11-25] MEDS: MILRINONE-D5W PMX 20 MG in DEXTROSE/WATER 1 100ML.BAG IV SCH (06:53)
[2017-11-25] MEDS: ASCORBIC ACID 500 MG TAB PO SCH ×2 (06:54→18:38)
[2017-11-25] MEDS: MIDODRINE 5 MG TAB PO SCH ×3 (06:54→18:38)
[2017-11-25 07:02] LABS: Glucose,Whole Blood 124 mg/dL (75-99)
[2017-11-25 07:14] LABS: ABG Base Excess 1.2 mmol/L; ABG HCO3 26 mmol/L (21-25); ABG Oxygen Saturation 98.8 % (94-97); ABG PCO2 42 mmHg (35-45); ABG PO2 117 mmHg (83-108); ABG TCO2 27 mmol/L (19-24)
[2017-11-25] MEDS: IPRATROPIUM-ALBUTEROL 3 ML NEB INHALATION SCH ×4 (07:17→20:04)
[2017-11-25] MEDS ORDERED: CALCIUM CHLORIDE 1,000 MG in SODIUM CHLORIDE 0.9% 100 ML IVPB STA (07:44)
[2017-11-25] MEDS ORDERED: VANCOMYCIN 1,250 MG in SODIUM CHLORIDE 0.9% 250 ML IVPB ONE (08:00)
[2017-11-25 08:04] LABS: Glucose,Whole Blood 124 mg/dL (75-99)
--- NOTE | 2017-11-25 08:27 | XR ---
EXAMINATION TYPE: XR chest 1V portable DATE OF EXAM: 11/25/2017 COMPARISON: 11/24/2017 HISTORY: Post cardiac surgery. Follow-up exam. TECHNIQUE: Single frontal view of the chest is obtained. FINDINGS: There are numerous overlying external leads obscuring visualization. Additionally the ente ray tube, endotracheal tube, bilateral thoracostomy tubes, left internal jugular central venous spencer ter, and postoperative changes the chest are similar in position with the prior as are epicardial pac ing leads and a left-sided PICC. There is redemonstration of cardiomegaly and trace pleural effusions blunting the costophrenic angles as well as mild interstitial pulmonary edema and left-sided Alonso B lines. No new focal consolidati on or pneumothorax is seen. IMPRESSION: Similar-appearing mild interstitial pulmonary edema and trace pleural effusions. Overall stable lines and tubes.
[2017-11-25] MEDS: CHLORHEXIDINE GLUCONATE 15 ML CUP MUCOUS MEM SCH ×2 (08:28→20:16)
[2017-11-25] MEDS: PANTOPRAZOLE 40 MG/10 ML VIAL IVP SCH (08:28)
[2017-11-25] MEDS: METOPROLOL TARTRATE 12.5 MG TAB PO SCH ×2 (08:28→20:18)
[2017-11-25] MEDS: SERTRALINE 25 MG TAB PO SCH (08:28)
[2017-11-25] MEDS: ASPIRIN 81 MG PO SCH (08:28)
[2017-11-25] MEDS: AMIODARONE 200 MG TAB PO SCH ×2 (08:28→20:17)
[2017-11-25] MEDS: PIPERACILLIN-TAZOBACTAM 3.375 GM in DEXTROSE/WATER 1 50ML.BAG IVPB SCH ×3 (08:31→23:42)
[2017-11-25 09:13] LABS: Glucose,Whole Blood 127 mg/dL (75-99)
[2017-11-25] MEDS: SODIUM CHLORIDE 0.9% 1,000 ML IV SCH (09:30)
[2017-11-25] MEDS ORDERED: SODIUM CHLORIDE 0.9% 1,000 ML IV SCH (09:45)
[2017-11-25] MEDS ORDERED: PHYTONADIONE 10 MG in SODIUM CHLORIDE 0.9% 50 ML IVPB STA (09:58)
[2017-11-25] MEDS: SODIUM CHLORIDE 0.9% 99 ML with VASOPRESSIN 20 UNIT IV SCH ×2 (09:59)
[2017-11-25 10:11] LABS: Glucose,Whole Blood 127 mg/dL (75-99)
--- NOTE | 2017-11-25 10:22 | P.PN ---
Subjective Progress Note Date: 11/25/17 Principal diagnosis: Triple-vessel coronary artery disease. Severe ischemic cardiomyopathy. Moderate mitral valve regurgitation. Mild tricuspid valve regurgitation. Diabetes mellitus with preoperative hemoglobin A1c 6.7%. Hyperlipidemia. Moderate to severe restrictive lung disease with preoperative FEV1 43% of predicted. Evidence of diffuse calcific coronary artery disease. 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 Previous tobacco dependence. POD #9 placement of preoperative intra-aortic balloon pump POD #8 quadruple coronary artery bypass grafting using the left internal mammary artery to the left anterior descending artery, reverse saphenous vein graft from the aorta to the diagonal artery, reverse saphenous vein graft from the aorta to the first obtuse marginal artery, reverse saphenous vein graft from the aorta to the posterior descending artery. Mitral valve repair using a complete ring annuloplasty with a 30 mm Kapoor IMR ring. Exclusion of the left atrial appendage using a 35 mm Atriclip. Intraoperative transesophageal echocardiogram and epi-aortic scanning. Intraoperative graft flow measurements using the [employer] system. Post operative normocytic, normochromic anemia, an expected outcome of surgery. Postoperative thrombocytopenia, an expected outcome of surgery. Postoperative atrial fibrillation, an expected outcome of surgery. Postoperative elevated transaminases, an unexpected outcome of surgery, likely secondary to low flow state post surgery. Postoperative acute kidney injury, an unexpected outcome of surgery, likely secondary to low flow state post surgery. Postoperative acute metabolic acidosis, lactic acidosis, reintubation, an unexpected outcome. Postoperative cardiogenic shock, an unexpected outcome. The patient remains intubated and sedated. He remains on Primacor at 0.2 mcg/kg /min, levo currently at 24 mcg/kg, vaso-a 0.02 units/min and insulin drip was reinitiated. He was given a liter of fluid yesterday as well as FFP and vitamin K. Triple lumen central line was placed in the right internal jugular and his CVP has ranged from 11-20, mostly 14-15. His urine output has picked up , anywhere from 115-200 mL/h overnight. IV bicarb drip was discontinued yesterday afternoon. His lactic acid has decreased to 1.7. His BUN has continued to climb, 113 which was 109 yesterday, but his creatinine is down to 2.64 from 3.17. Liver enzymes are slowly improving. Potassium level has returned to normal. White blood cell count has slightly decreased and platelet count has increased. Arterial blood gases have significantly improved. The patient does remain tachycardic with heart rate in the 1 teens to 120s. Objective - Vital Signs Vital signs: Vital Signs Temp 97.7 F 11/25/17 04:15 Pulse 130 H 11/25/17 07:31 Resp 14 11/25/17 07:00 BP 119/54 11/24/17 06:00 Pulse Ox 100 11/25/17 07:00 Intake & Output 11/24/17 11/25/17 11/25/17 18:59 06:59 18:59 Intake Total 2723.143 998.357 184.323 Output Total 1355 1785 120 Balance 1368.143 -786.643 64.323 Weight 82.6 kg 84.1 kg Intake: IV 1114 430.6 36.6 0.9 Bolus 1000 Lactated Ringers 1,000 ml 10 @ 20 mls/hr IV .Q24H [facility] Rx#:[id number] Milrinone-D5W 32.2 4.6 Milrinone-D5w Pmx 20 mg 18.4 In Dextrose/Water 1 100ml .bag @ 0.2 MCG/KG/MIN 4. 66 mls/hr IV .[id number] [facility] Rx#:[id number] Phytonadione 10 mg In 50 Sodium Chloride 0.9% 50 ml @ 100 mls/hr IVPB ONCE STA Rx#:[id number] Piperacillin-Tazobactam 3 50.0 .375 gm In Dextrose/Water 1 50ml.bag @ 12.5 mls/hr IVPB Q12HR [facility] Rx#: [id number] Pressure Bags 54 72 6 Sodium Chloride 0.9% 500 180 20 ml @ 20 mls/hr IV .Q24H [facility] Rx#:[id number] Sodium Chloride 0.9% 99 6 ml @ 0.02 UNITS/MIN 6 mls /hr IV .[id number] [facility] with Vasopressin 20 unit Rx#: [id number] Sodium Chloride 0.9% 99 6 ml @ 0.03 UNITS/MIN 9 mls /hr IV .Q11H7M ONE with Vasopressin 20 unit Rx#: [id number] Sodium Chloride 0.9% 99 66 6 ml @ 0.03 UNITS/MIN 9 mls /hr IV .[id number] [facility] with Vasopressin 20 unit Rx#: [id number] Intake, IV Titration 1171.143 567.757 117.723 Amount Calcium Chloride 1,000 mg 100 In Sodium Chloride 0.9% 100 ml @ 100 mls/hr IVPB ONCE STA Rx#:[id number] Dextrose 5% in Water 1, 315 000 ml @ 70 mls/hr IV . [id number] [facility] with Sodium Bicarb (1 Meq/ml) 150 ml Rx#:[id number] Furosemide 250 mg In 93 Sodium Chloride 0.9% 225 ml @ 15 MG/HR 15 mls/hr IVP .[id number] [facility] Rx#: [id number] Insulin Regular 100 unit 7.057 24.620 3.232 In Sodium Chloride 0.9% 100 ml @ Per Protocol IV .Q0M [facility] Rx#:[id number] Milrinone-D5w Pmx 20 mg 33.086 47.144 In Dextrose/Water 1 100ml .bag @ 0.2 MCG/KG/MIN 4. 66 mls/hr IV .[id number] [facility] Rx#:[id number] Norepinephrine 16 mg In 250.000 369.993 20.625 Dextrose 5% in Water 250 ml @ Titrate IV .Q0M [facility] Rx#:[id number] Piperacillin-Tazobactam 3 50 .375 gm In Dextrose/Water 1 50ml.bag @ 12.5 mls/hr IVPB Q12HR [facility] Rx#: [id number] Propofol 1,000 mg In 100.000 100 93.866 Empty Bag 1 bag @ Titrate IV .Q0M [facility] Rx#: [id number] Sodium Chloride 0.9% 1, 80 000 ml @ 40 mls/hr IV . Q24H [facility] Rx#:[id number] Sodium Chloride 0.9% 500 80 20 ml @ 20 mls/hr IV .Q24H [facility] Rx#:[id number] Sodium Chloride 0.9% 99 63 6 ml @ 0.03 UNITS/MIN 9 mls /hr IV .[id number] [facility] with Vasopressin 20 unit Rx#: [id number] Blood Product 288 Ffp 24 Cpd Unit 288 [id number] Other 150 30 Ffp 24 Cpd Unit 30 [id number] Output: Chest Tube Drainage 360 240 0 left pleural 185 120 0 right pleural 175 120 0 Gastric Drainage 700 150 Urine 295 1395 120 Other: Voiding Method Indwelling Catheter Indwelling Catheter Indwelling Catheter ABP, PAP, CO, CI - Last Documented Arterial Blood Pressure 106/51 Pulmonary Artery Pressure 40/15 Cardiac Output 5.0 Cardiac Index 2.7 - Constitutional Constitutional Comment(s): Currently in no distress, remains sedated on mechanical ventilation. - Respiratory Details: Lungs sounds diminished bilaterally. Respirations even, nonlabored on mechanical ventilation. Current ventilator settings assist control mode, FiO2 35%, tidal volume 450, respiratory rate 14, PEEP 5. 8.0 ET tube present, 25 at the lip. Left pleural chest tube to continuous wall suction, 90 mL serosanguineous drainage overnight, 250 mL in 24 hours. Right pleural chest tube to continuous wall suction, 90 mL serosanguineous drainage overnight, 230 mL in 24 hours. No air leaks present. - Cardiovascular Details: S1, S2 present. Regular, tachycardic rate and rhythm, sinus tach on monitor. Sternum stable. A/V epicardial pacemaker wires present, grounded. Palpable peripheral pulses bilaterally. Trace scrotal edema present. Right radial arterial line, left brachial PICC line, left internal jugular triple-lumen central line present. CVP ranging from 11-20, mostly 14-15. Levo being titrated as needed to keep MAP > 65, vasopressin currently infusing and 0.02 units/min, Primacor currently at 0.02 mcg/kg/min. Heart hugger, antiembolism stockings, SCDs present. - Gastrointestinal Gastrointestinal Comment(s): Abdomen soft, nontender, nondistended. Active bowel sounds present 4 quadrants. OG tube present to low intermittent suction, 750 mL drainage yesterday, 150 mL overnight. Fecal management system present, yellowish brown liquid stool, occult blood positive, C. diff negative. - Genitourinary Genitourinary Comment(s): Fong present draining concentrated urine. Output 115-220 mL/h overnight without diuretics. - Integumentary Integumentary Comment(s): Skin warm and dry, right great toe, left baby toe starting to turn blue likely from high-dose levo. Sternal incision well approximated and covered with dry intact dressing. Left lower extremity EVH site well approximated. - Neurologic Neurologic Comment(s): Currently sedated on mechanical ventilation. - Allied health notes Allied health notes reviewed: nursing - Labs CBC & Chem 7: 11/25/17 05:18 11/25/17 05:18 Labs: Abnormal Lab Results - Last 24 Hours (Table) 11/24/17 11/24/17 11/24/17 Range/Units 11:23 12:15 13:05 WBC 18.5 H (3.8-10.6) k/uL RBC 2.30 L (4.30-5.90) m/uL Hgb 7.1 L (13.0-17.5) gm/dL Hct 20.4 L (39.0-53.0) % RDW 16.7 H (11.5-15.5) % Plt Count 48 L* (150-450) k/uL Neutrophils # (1.3-7.7) k/uL Lymphocytes # (1.0-4.8) k/uL PT (9.0-12.0) sec INR (<1.2) APTT (22.0-30.0) sec ABG pO2 122 H (83-108) mmHg ABG HCO3 (21-25) mmol/L ABG Total CO2 (19-24) mmol/L ABG O2 Saturation 99.1 H (94-97) % ABG Lactic Acid (0.5-1.6) mmol/L BUN (9-20) mg/dL Creatinine (0.66-1.25) mg/dL Glucose (74-99) mg/dL POC Glucose (mg/dL) 204 H (75-99) mg/dL Calcium (8.4-10.2) mg/dL Phosphorus (2.5-4.5) mg/dL Magnesium (1.6-2.3) mg/dL Total Bilirubin (0.2-1.3) mg/dL AST (17-59) U/L ALT (21-72) U/L Total Protein (6.3-8.2) g/dL Albumin (3.5-5.0) g/dL 11/24/17 11/24/17 11/24/17 Range/Units 13:05 14:58 15:00 WBC (3.8-10.6) k/uL RBC (4.30-5.90) m/uL Hgb (13.0-17.5) gm/dL Hct (39.0-53.0) % RDW (11.5-15.5) % Plt Count (150-450) k/uL Neutrophils # (1.3-7.7) k/uL Lymphocytes # (1.0-4.8) k/uL PT (9.0-12.0) sec INR (<1.2) APTT (22.0-30.0) sec ABG pO2 (83-108) mmHg ABG HCO3 (21-25) mmol/L ABG Total CO2 (19-24) mmol/L ABG O2 Saturation (94-97) % ABG Lactic Acid 2.5 H* (0.5-1.6) mmol/L BUN 109 H* (9-20) mg/dL Creatinine 2.99 H (0.66-1.25) mg/dL Glucose 192 H (74-99) mg/dL POC Glucose (mg/dL) 227 H (75-99) mg/dL Calcium 7.9 L (8.4-10.2) mg/dL Phosphorus (2.5-4.5) mg/dL Magnesium (1.6-2.3) mg/dL Total Bilirubin (0.2-1.3) mg/dL AST (17-59) U/L ALT (21-72) U/L Total Protein (6.3-8.2) g/dL Albumin (3.5-5.0) g/dL 11/24/17 11/24/17 11/24/17 Range/Units 15:10 16:07 17:09 WBC (3.8-10.6) k/uL RBC (4.30-5.90) m/uL Hgb (13.0-17.5) gm/dL Hct (39.0-53.0) % RDW (11.5-15.5) % Plt Count (150-450) k/uL Neutrophils # (1.3-7.7) k/uL Lymphocytes # (1.0-4.8) k/uL PT (9.0-12.0) sec INR (<1.2) APTT (22.0-30.0) sec ABG pO2 139 H (83-108) mmHg ABG HCO3 (21-25) mmol/L ABG Total CO2 25 H (19-24) mmol/L ABG O2 Saturation 99.6 H (94-97) % ABG Lactic Acid (0.5-1.6) mmol/L BUN (9-20) mg/dL Creatinine (0.66-1.25) mg/dL Glucose (74-99) mg/dL POC Glucose (mg/dL) 217 H 187 H (75-99) mg/dL Calcium (8.4-10.2) mg/dL Phosphorus (2.5-4.5) mg/dL Magnesium (1.6-2.3) mg/dL Total Bilirubin (0.2-1.3) mg/dL AST (17-59) U/L ALT (21-72) U/L Total Protein (6.3-8.2) g/dL Albumin (3.5-5.0) g/dL 11/24/17 11/24/17 11/24/17 Range/Units 18:07 19:05 20:29 WBC (3.8-10.6) k/uL RBC (4.30-5.90) m/uL Hgb (13.0-17.5) gm/dL Hct (39.0-53.0) % RDW (11.5-15.5) % Plt Count (150-450) k/uL Neutrophils # (1.3-7.7) k/uL Lymphocytes # (1.0-4.8) k/uL PT (9.0-12.0) sec INR (<1.2) APTT (22.0-30.0) sec ABG pO2 (83-108) mmHg ABG HCO3 (21-25) mmol/L ABG Total CO2 (19-24) mmol/L ABG O2 Saturation (94-97) % ABG Lactic Acid (0.5-1.6) mmol/L BUN (9-20) mg/dL Creatinine (0.66-1.25) mg/dL Glucose (74-99) mg/dL POC Glucose (mg/dL) 194 H 178 H 167 H (75-99) mg/dL Calcium (8.4-10.2) mg/dL Phosphorus (2.5-4.5) mg/dL Magnesium (1.6-2.3) mg/dL Total Bilirubin (0.2-1.3) mg/dL AST (17-59) U/L ALT (21-72) U/L Total Protein (6.3-8.2) g/dL Albumin (3.5-5.0) g/dL 11/24/17 11/24/17 11/24/17 Range/Units 20:35 21:13 22:11 WBC (3.8-10.6) k/uL RBC (4.30-5.90) m/uL Hgb (13.0-17.5) gm/dL Hct (39.0-53.0) % RDW (11.5-15.5) % Plt Count (150-450) k/uL Neutrophils # (1.3-7.7) k/uL Lymphocytes # (1.0-4.8) k/uL PT (9.0-12.0) sec INR (<1.2) APTT (22.0-30.0) sec ABG pO2 (83-108) mmHg ABG HCO3 (21-25) mmol/L ABG Total CO2 (19-24) mmol/L ABG O2 Saturation (94-97) % ABG Lactic Acid 1.7 H (0.5-1.6) mmol/L BUN (9-20) mg/dL Creatinine (0.66-1.25) mg/dL Glucose (74-99) mg/dL POC Glucose (mg/dL) 151 H 143 H (75-99) mg/dL Calcium (8.4-10.2) mg/dL Phosphorus (2.5-4.5) mg/dL Magnesium (1.6-2.3) mg/dL Total Bilirubin (0.2-1.3) mg/dL AST (17-59) U/L ALT (21-72) U/L Total Protein (6.3-8.2) g/dL Albumin (3.5-5.0) g/dL 11/24/17 11/25/17 11/25/17 Range/Units 23:11 01:02 02:06 WBC (3.8-10.6) k/uL RBC (4.30-5.90) m/uL Hgb (13.0-17.5) gm/dL Hct (39.0-53.0) % RDW (11.5-15.5) % Plt Count (150-450) k/uL Neutrophils # (1.3-7.7) k/uL Lymphocytes # (1.0-4.8) k/uL PT (9.0-12.0) sec INR (<1.2) APTT (22.0-30.0) sec ABG pO2 (83-108) mmHg ABG HCO3 (21-25) mmol/L ABG Total CO2 (19-24) mmol/L ABG O2 Saturation (94-97) % ABG Lactic Acid (0.5-1.6) mmol/L BUN (9-20) mg/dL Creatinine (0.66-1.25) mg/dL Glucose (74-99) mg/dL POC Glucose (mg/dL) 135 H 133 H 128 H (75-99) mg/dL Calcium (8.4-10.2) mg/dL Phosphorus (2.5-4.5) mg/dL Magnesium (1.6-2.3) mg/dL Total Bilirubin (0.2-1.3) mg/dL AST (17-59) U/L ALT (21-72) U/L Total Protein (6.3-8.2) g/dL Albumin (3.5-5.0) g/dL 11/25/17 11/25/17 11/25/17 Range/Units 04:12 05:14 05:18 WBC 17.8 H (3.8-10.6) k/uL RBC 2.43 L (4.30-5.90) m/uL Hgb 7.2 L (13.0-17.5) gm/dL Hct 21.6 L (39.0-53.0) % RDW 17.1 H (11.5-15.5) % Plt Count 64 L (150-450) k/uL Neutrophils # 15.3 H (1.3-7.7) k/uL Lymphocytes # 0.8 L (1.0-4.8) k/uL PT (9.0-12.0) sec INR (<1.2) APTT (22.0-30.0) sec ABG pO2 (83-108) mmHg ABG HCO3 (21-25) mmol/L ABG Total CO2 (19-24) mmol/L ABG O2 Saturation (94-97) % ABG Lactic Acid (0.5-1.6) mmol/L BUN (9-20) mg/dL Creatinine (0.66-1.25) mg/dL Glucose (74-99) mg/dL POC Glucose (mg/dL) 130 H 134 H (75-99) mg/dL Calcium (8.4-10.2) mg/dL Phosphorus (2.5-4.5) mg/dL Magnesium (1.6-2.3) mg/dL Total Bilirubin (0.2-1.3) mg/dL AST (17-59) U/L ALT (21-72) U/L Total Protein (6.3-8.2) g/dL Albumin (3.5-5.0) g/dL 11/25/17 11/25/17 11/25/17 Range/Units 05:18 05:18 06:23 WBC (3.8-10.6) k/uL RBC (4.30-5.90) m/uL Hgb (13.0-17.5) gm/dL Hct (39.0-53.0) % RDW (11.5-15.5) % Plt Count (150-450) k/uL Neutrophils # (1.3-7.7) k/uL Lymphocytes # (1.0-4.8) k/uL PT 18.5 H (9.0-12.0) sec INR 2.0 H (<1.2) APTT 32.1 H (22.0-30.0) sec ABG pO2 (83-108) mmHg ABG HCO3 (21-25) mmol/L ABG Total CO2 (19-24) mmol/L ABG O2 Saturation (94-97) % ABG Lactic Acid (0.5-1.6) mmol/L BUN 113 H* (9-20) mg/dL Creatinine 2.64 H (0.66-1.25) mg/dL Glucose 114 H (74-99) mg/dL POC Glucose (mg/dL) 124 H (75-99) mg/dL Calcium 7.8 L (8.4-10.2) mg/dL Phosphorus 5.0 H (2.5-4.5) mg/dL Magnesium 2.4 H (1.6-2.3) mg/dL Total Bilirubin 5.4 H (0.2-1.3) mg/dL AST 1038 H (17-59) U/L ALT 567 H (21-72) U/L Total Protein 5.2 L (6.3-8.2) g/dL Albumin 2.8 L (3.5-5.0) g/dL 11/25/17 11/25/17 11/25/17 Range/Units 07:01 07:08 08:02 WBC (3.8-10.6) k/uL RBC (4.30-5.90) m/uL Hgb (13.0-17.5) gm/dL Hct (39.0-53.0) % RDW (11.5-15.5) % Plt Count (150-450) k/uL Neutrophils # (1.3-7.7) k/uL Lymphocytes # (1.0-4.8) k/uL PT (9.0-12.0) sec INR (<1.2) APTT (22.0-30.0) sec ABG pO2 117 H (83-108) mmHg ABG HCO3 26 H (21-25) mmol/L ABG Total CO2 27 H (19-24) mmol/L ABG O2 Saturation 98.8 H (94-97) % ABG Lactic Acid (0.5-1.6) mmol/L BUN (9-20) mg/dL Creatinine (0.66-1.25) mg/dL Glucose (74-99) mg/dL POC Glucose (mg/dL) 124 H 124 H (75-99) mg/dL Calcium (8.4-10.2) mg/dL Phosphorus (2.5-4.5) mg/dL Magnesium (1.6-2.3) mg/dL Total Bilirubin (0.2-1.3) mg/dL AST (17-59) U/L ALT (21-72) U/L Total Protein (6.3-8.2) g/dL Albumin (3.5-5.0) g/dL 11/25/17 Range/Units 09:10 WBC (3.8-10.6) k/uL RBC (4.30-5.90) m/uL Hgb (13.0-17.5) gm/dL Hct (39.0-53.0) % RDW (11.5-15.5) % Plt Count (150-450) k/uL Neutrophils # (1.3-7.7) k/uL Lymphocytes # (1.0-4.8) k/uL PT (9.0-12.0) sec INR (<1.2) APTT (22.0-30.0) sec ABG pO2 (83-108) mmHg ABG HCO3 (21-25) mmol/L ABG Total CO2 (19-24) mmol/L ABG O2 Saturation (94-97) % ABG Lactic Acid (0.5-1.6) mmol/L BUN (9-20) mg/dL Creatinine (0.66-1.25) mg/dL Glucose (74-99) mg/dL POC Glucose (mg/dL) 127 H (75-99) mg/dL Calcium (8.4-10.2) mg/dL Phosphorus (2.5-4.5) mg/dL Magnesium (1.6-2.3) mg/dL Total Bilirubin (0.2-1.3) mg/dL AST (17-59) U/L ALT (21-72) U/L Total Protein (6.3-8.2) g/dL Albumin (3.5-5.0) g/dL Microbiology - Last 24 Hours (Table) 11/24/17 20:30 Gram Stain - Preliminary Sputum Sputum Culture - Preliminary 11/24/17 10:20 Urine Culture - Preliminary Urine,Catheterized - Imaging and Cardiology Chest x-ray: report reviewed, image reviewed Assessment and Plan (1) Congestive heart failure with cardiomyopathy Current Visit: Yes Status: Chronic Code(s): I50.9 - HEART FAILURE, UNSPECIFIED; I42.9 - CARDIOMYOPATHY, UNSPECIFIED SNOMED Code(s): 33788530 (2) Ischemic cardiomyopathy Current Visit: Yes Status: Chronic Code(s): I25.5 - ISCHEMIC CARDIOMYOPATHY SNOMED Code(s): 053034152 (3) Coronary artery disease Current Visit: Yes Status: Chronic Code(s): I25.10 - ATHSCL HEART DISEASE OF [place] CORONARY ARTERY W/O ANG PCTRS SNOMED Code(s): 23103883 (4) Diabetes mellitus Current Visit: Yes Status: Chronic Code(s): E11.9 - TYPE 2 DIABETES MELLITUS WITHOUT COMPLICATIONS SNOMED Code(s): 88574337 (5) Hyperlipidemia Current Visit: Yes Status: Chronic Code(s): E78.5 - HYPERLIPIDEMIA, UNSPECIFIED SNOMED Code(s): 99894588 (6) Mitral regurgitation Current Visit: Yes Status: Chronic Code(s): I34.0 - NONRHEUMATIC MITRAL ( VALVE) INSUFFICIENCY SNOMED Code(s): 59193529 (7) History of myocardial infarction Current Visit: No Status: Resolved Code(s): I25.2 - OLD MYOCARDIAL INFARCTION SNOMED Code(s): 480288246 (8) Tobacco dependence in remission Current Visit: No Status: Resolved Code(s): F17.201 - NICOTINE DEPENDENCE, UNSPECIFIED, IN REMISSION SNOMED Code(s): 405562880 Plan: 1. Continue low-dose aspirin. Will re-add Plavix. Will restart subcu heparin tomorrow. Patient received another 5 mg of vitamin K and FFP yesterday with decrease in INR. Monitor patient for bleeding. More vitamin K to be given today per hematology. 2. Continue beta michelle. Will increase beta michelle when able. RN instructed to give despite pressor use. 3. Statin discontinued secondary to elevated transaminases. Will restart when transaminases return to normal. 4. Continue amiodarone for A. fib prophylaxis. 5. Wean levo as tolerated. Continue Primacor at 0.2 mcg/kg/min. Wean vasopressin as able. Goal to keep mean arterial pressure greater than 65. 6. Calcium chloride IV given. IV bicarb drip stopped yesterday. 7. Will start tube feedings today. Will monitor for gastric residual. 8. No nephrotoxic, hepatotoxic agents. 9. IV fluids to be added per nephrology. 10. Keep Fong catheter for strict accurate intake and output. 11. Ventilator management, bronchodilators per pulmonology. 12. Sedation holiday today to assess neurological status. 13. Will monitor daily labs and x-rays. 14. Lactic acid return to 1.7. Agree with adding Vancomycin and Zosyn per pulmonology for sepsis coverage, doubt sepsis, likely elevation in lactic acid secondary to hypoperfusion state. 15. Pain control with current medication regimen. 16. GI/DVT prophylaxis with Protonix and SCDs. 17. C. diff negative, occult blood positive, will continue to monitor. 18. Diabetic management per primary care service. Insulin drip restarted. 19. More recommendations to follow. Time with Patient: Greater than 30
[2017-11-25] MEDS: CLOPIDOGREL 75 MG TAB PO SCH (10:50)
--- NOTE | 2017-11-25 12:11 | CONS ---
CONSULTATION Mr. Silva is a 72-year-old gentleman with status post coronary artery bypass surgery, mitral valve repair, ischemic cardiomyopathy. Patient's course was complicated by cardiogenic shock and acute renal failure. Since yesterday, patient's condition has improved. Patient's acute kidney injury is resolving and the patient is probably into the diuretic phase and has been started putting out urine. Patient's overall condition is improving. The lactic acidosis has been cleared and the kidney function as well as liver functions are improving. Current vital signs are blood pressure is 119/54, heart rate is 120-130 per minute. The patient is afebrile. Urine output during the last shift was 1785. HEART: First and second heart sounds are normal. Lungs reveal bilateral diminished air entry. Patient's CVP was 20 yesterday, hemoglobin is 7.2 today. Creatinine is 2.6, BUN is of 113. Chest x-ray is suggestive of mild heart failure. FINAL IMPRESSION: This patient's condition is improved as compared to yesterday. Acute kidney injury is improving and patient is now in the diuretic phase. Improvement in the cardiogenic shock and lactic acidosis. Will continue the current medications. Patient currently is getting Levophed and milrinone. MMODL / IJN: [id number] /
[2017-11-25 12:12] LABS: Glucose,Whole Blood 125 mg/dL (75-99)
[2017-11-25 13:01] LABS: Glucose,Whole Blood 129 mg/dL (75-99)
--- NOTE | 2017-11-25 13:32 | P.PN ---
Subjective Progress Note Date: 11/25/17 Principal diagnosis: Thrombocytopenia requiring Anticoagulation on ventilator, Labs appear to be stabilizing, INR 2. He is status Post line placement 11/24/17. He received FFP and Vitamin K prior to procedure. Stool for OB positive but no noticeable or apparent bloody stool or bleeding able to be identified. Objective - Vital Signs Vital signs: Vital Signs Temp 98.7 F 11/25/17 08:00 Pulse 100 11/25/17 11:27 Resp 17 11/25/17 09:45 BP 119/54 11/24/17 06:00 Pulse Ox 100 11/25/17 09:45 Intake & Output 11/24/17 11/25/17 11/25/17 18:59 06:59 18:59 Intake Total 2723.143 998.357 744.443 Output Total 1355 1785 470 Balance 1368.143 -786.643 274.443 Weight 82.6 kg 84.1 kg Intake: IV 1114 430.6 150.6 0.9 Bolus 1000 Lactated Ringers 1,000 ml 10 @ 20 mls/hr IV .Q24H [facility] Rx#:[id number] Milrinone-D5W 32.2 4.6 Milrinone-D5w Pmx 20 mg 18.4 In Dextrose/Water 1 100ml .bag @ 0.2 MCG/KG/MIN 4. 66 mls/hr IV .[id number] [facility] Rx#:[id number] Phytonadione 10 mg In 50 Sodium Chloride 0.9% 50 ml @ 100 mls/hr IVPB ONCE STA Rx#:[id number] Piperacillin-Tazobactam 3 50.0 50 .375 gm In Dextrose/Water 1 50ml.bag @ 12.5 mls/hr IVPB Q12HR [facility] Rx#: [id number] Pressure Bags 54 72 18 Sodium Chloride 0.9% 500 180 60 ml @ 20 mls/hr IV .Q24H [facility] Rx#:[id number] Sodium Chloride 0.9% 99 6 ml @ 0.02 UNITS/MIN 6 mls /hr IV .[id number] [facility] with Vasopressin 20 unit Rx#: [id number] Sodium Chloride 0.9% 99 6 ml @ 0.03 UNITS/MIN 9 mls /hr IV .Q11H7M ONE with Vasopressin 20 unit Rx#: [id number] Sodium Chloride 0.9% 99 66 18 ml @ 0.03 UNITS/MIN 9 mls /hr IV .[id number] [facility]AN[facility] with Vasopressin 20 unit Rx#: [id number] Intake, IV Titration 1171.143 567.757 503.843 Amount Calcium Chloride 1,000 mg 100 In Sodium Chloride 0.9% 100 ml @ 100 mls/hr IVPB ONCE STA Rx#:[id number] Dextrose 5% in Water 1, 315 000 ml @ 70 mls/hr IV . [id number] [facility] with Sodium Bicarb (1 Meq/ml) 150 ml Rx#:[id number] Furosemide 250 mg In 93 Sodium Chloride 0.9% 225 ml @ 15 MG/HR 15 mls/hr IVP .[id number] [facility] Rx#: [id number] Insulin Regular 100 unit 7.057 24.620 7.907 In Sodium Chloride 0.9% 100 ml @ Per Protocol IV .Q0M [facility] Rx#:[id number] Milrinone-D5w Pmx 20 mg 33.086 47.144 In Dextrose/Water 1 100ml .bag @ 0.2 MCG/KG/MIN 4. 66 mls/hr IV .[id number] [facility] Rx#:[id number] Norepinephrine 16 mg In 250.000 369.993 117.070 Dextrose 5% in Water 250 ml @ Titrate IV .Q0M [facility] Rx#:[id number] Piperacillin-Tazobactam 3 50 .375 gm In Dextrose/Water 1 50ml.bag @ 12.5 mls/hr IVPB Q12HR [facility] Rx#: [id number] Propofol 1,000 mg In 100.000 100 93.866 Empty Bag 1 bag @ Titrate IV .Q0M [facility] Rx#: [id number] Sodium Chloride 0.9% 1, 80 000 ml @ 40 mls/hr IV . Q24H [facility] Rx#:[id number] Sodium Chloride 0.9% 1, 35 000 ml @ 70 mls/hr IV . [id number] [facility] Rx#:[id number] Sodium Chloride 0.9% 500 80 20 ml @ 20 mls/hr IV .Q24H [facility] Rx#:[id number] Sodium Chloride 0.9% 99 63 6 ml @ 0.03 UNITS/MIN 9 mls /hr IV .[id number] [facility] with Vasopressin 20 unit Rx#: [id number] Vancomycin 1,250 mg In 250 Sodium Chloride 0.9% 250 ml @ 125 mls/hr IVPB ONCE ONE Rx#:[id number] Blood Product 288 Ffp 24 Cpd Unit 288 [id number] Other 150 90 Ffp 24 Cpd Unit 30 [id number] Output: Chest Tube Drainage 360 240 50 left pleural 185 120 20 right pleural 175 120 30 Gastric Drainage 700 150 Urine 295 1395 420 Other: Voiding Method Indwelling Catheter Indwelling Catheter Indwelling Catheter ABP, PAP, CO, CI - Last Documented Arterial Blood Pressure 116/55 Pulmonary Artery Pressure 40/15 Cardiac Output 5.0 Cardiac Index 2.7 - Exam Ventilator, NAAD - Gastrointestinal General gastrointestinal: Present: soft - Integumentary Integumentary: Present: pale - Labs CBC & Chem 7: 11/25/17 05:18 11/25/17 05:18 Labs: Abnormal Lab Results - Last 24 Hours (Table) 11/24/17 11/24/17 11/24/17 Range/Units 13:05 13:05 14:58 WBC 18.5 H (3.8-10.6) k/uL RBC 2.30 L (4.30-5.90) m/uL Hgb 7.1 L (13.0-17.5) gm/dL Hct 20.4 L (39.0-53.0) % RDW 16.7 H (11.5-15.5) % Plt Count 48 L* (150-450) k/uL Neutrophils # (1.3-7.7) k/uL Lymphocytes # (1.0-4.8) k/uL PT (9.0-12.0) sec INR (<1.2) APTT (22.0-30.0) sec ABG pO2 (83-108) mmHg ABG HCO3 (21-25) mmol/L ABG Total CO2 (19-24) mmol/L ABG O2 Saturation (94-97) % ABG Lactic Acid (0.5-1.6) mmol/L BUN 109 H* (9-20) mg/dL Creatinine 2.99 H (0.66-1.25) mg/dL Glucose 192 H (74-99) mg/dL POC Glucose (mg/dL) 227 H (75-99) mg/dL Calcium 7.9 L (8.4-10.2) mg/dL Phosphorus (2.5-4.5) mg/dL Magnesium (1.6-2.3) mg/dL Total Bilirubin (0.2-1.3) mg/dL AST (17-59) U/L ALT (21-72) U/L Total Protein (6.3-8.2) g/dL Albumin (3.5-5.0) g/dL 11/24/17 11/24/17 11/24/17 Range/Units 15:00 15:10 16:07 WBC (3.8-10.6) k/uL RBC (4.30-5.90) m/uL Hgb (13.0-17.5) gm/dL Hct (39.0-53.0) % RDW (11.5-15.5) % Plt Count (150-450) k/uL Neutrophils # (1.3-7.7) k/uL Lymphocytes # (1.0-4.8) k/uL PT (9.0-12.0) sec INR (<1.2) APTT (22.0-30.0) sec ABG pO2 139 H (83-108) mmHg ABG HCO3 (21-25) mmol/L ABG Total CO2 25 H (19-24) mmol/L ABG O2 Saturation 99.6 H (94-97) % ABG Lactic Acid 2.5 H* (0.5-1.6) mmol/L BUN (9-20) mg/dL Creatinine (0.66-1.25) mg/dL Glucose (74-99) mg/dL POC Glucose (mg/dL) 217 H (75-99) mg/dL Calcium (8.4-10.2) mg/dL Phosphorus (2.5-4.5) mg/dL Magnesium (1.6-2.3) mg/dL Total Bilirubin (0.2-1.3) mg/dL AST (17-59) U/L ALT (21-72) U/L Total Protein (6.3-8.2) g/dL Albumin (3.5-5.0) g/dL 11/24/17 11/24/17 11/24/17 Range/Units 17:09 18:07 19:05 WBC (3.8-10.6) k/uL RBC (4.30-5.90) m/uL Hgb (13.0-17.5) gm/dL Hct (39.0-53.0) % RDW (11.5-15.5) % Plt Count (150-450) k/uL Neutrophils # (1.3-7.7) k/uL Lymphocytes # (1.0-4.8) k/uL PT (9.0-12.0) sec INR (<1.2) APTT (22.0-30.0) sec ABG pO2 (83-108) mmHg ABG HCO3 (21-25) mmol/L ABG Total CO2 (19-24) mmol/L ABG O2 Saturation (94-97) % ABG Lactic Acid (0.5-1.6) mmol/L BUN (9-20) mg/dL Creatinine (0.66-1.25) mg/dL Glucose (74-99) mg/dL POC Glucose (mg/dL) 187 H 194 H 178 H (75-99) mg/dL Calcium (8.4-10.2) mg/dL Phosphorus (2.5-4.5) mg/dL Magnesium (1.6-2.3) mg/dL Total Bilirubin (0.2-1.3) mg/dL AST (17-59) U/L ALT (21-72) U/L Total Protein (6.3-8.2) g/dL Albumin (3.5-5.0) g/dL 11/24/17 11/24/17 11/24/17 Range/Units 20:29 20:35 21:13 WBC (3.8-10.6) k/uL RBC (4.30-5.90) m/uL Hgb (13.0-17.5) gm/dL Hct (39.0-53.0) % RDW (11.5-15.5) % Plt Count (150-450) k/uL Neutrophils # (1.3-7.7) k/uL Lymphocytes # (1.0-4.8) k/uL PT (9.0-12.0) sec INR (<1.2) APTT (22.0-30.0) sec ABG pO2 (83-108) mmHg ABG HCO3 (21-25) mmol/L ABG Total CO2 (19-24) mmol/L ABG O2 Saturation (94-97) % ABG Lactic Acid 1.7 H (0.5-1.6) mmol/L BUN (9-20) mg/dL Creatinine (0.66-1.25) mg/dL Glucose (74-99) mg/dL POC Glucose (mg/dL) 167 H 151 H (75-99) mg/dL Calcium (8.4-10.2) mg/dL Phosphorus (2.5-4.5) mg/dL Magnesium (1.6-2.3) mg/dL Total Bilirubin (0.2-1.3) mg/dL AST (17-59) U/L ALT (21-72) U/L Total Protein (6.3-8.2) g/dL Albumin (3.5-5.0) g/dL 11/24/17 11/24/17 11/25/17 Range/Units 22:11 23:11 01:02 WBC (3.8-10.6) k/uL RBC (4.30-5.90) m/uL Hgb (13.0-17.5) gm/dL Hct (39.0-53.0) % RDW (11.5-15.5) % Plt Count (150-450) k/uL Neutrophils # (1.3-7.7) k/uL Lymphocytes # (1.0-4.8) k/uL PT (9.0-12.0) sec INR (<1.2) APTT (22.0-30.0) sec ABG pO2 (83-108) mmHg ABG HCO3 (21-25) mmol/L ABG Total CO2 (19-24) mmol/L ABG O2 Saturation (94-97) % ABG Lactic Acid (0.5-1.6) mmol/L BUN (9-20) mg/dL Creatinine (0.66-1.25) mg/dL Glucose (74-99) mg/dL POC Glucose (mg/dL) 143 H 135 H 133 H (75-99) mg/dL Calcium (8.4-10.2) mg/dL Phosphorus (2.5-4.5) mg/dL Magnesium (1.6-2.3) mg/dL Total Bilirubin (0.2-1.3) mg/dL AST (17-59) U/L ALT (21-72) U/L Total Protein (6.3-8.2) g/dL Albumin (3.5-5.0) g/dL 11/25/17 11/25/17 11/25/17 Range/Units 02:06 04:12 05:14 WBC (3.8-10.6) k/uL RBC (4.30-5.90) m/uL Hgb (13.0-17.5) gm/dL Hct (39.0-53.0) % RDW (11.5-15.5) % Plt Count (150-450) k/uL Neutrophils # (1.3-7.7) k/uL Lymphocytes # (1.0-4.8) k/uL PT (9.0-12.0) sec INR (<1.2) APTT (22.0-30.0) sec ABG pO2 (83-108) mmHg ABG HCO3 (21-25) mmol/L ABG Total CO2 (19-24) mmol/L ABG O2 Saturation (94-97) % ABG Lactic Acid (0.5-1.6) mmol/L BUN (9-20) mg/dL Creatinine (0.66-1.25) mg/dL Glucose (74-99) mg/dL POC Glucose (mg/dL) 128 H 130 H 134 H (75-99) mg/dL Calcium (8.4-10.2) mg/dL Phosphorus (2.5-4.5) mg/dL Magnesium (1.6-2.3) mg/dL Total Bilirubin (0.2-1.3) mg/dL AST (17-59) U/L ALT (21-72) U/L Total Protein (6.3-8.2) g/dL Albumin (3.5-5.0) g/dL 11/25/17 11/25/17 11/25/17 Range/Units 05:18 05:18 05:18 WBC 17.8 H (3.8-10.6) k/uL RBC 2.43 L (4.30-5.90) m/uL Hgb 7.2 L (13.0-17.5) gm/dL Hct 21.6 L (39.0-53.0) % RDW 17.1 H (11.5-15.5) % Plt Count 64 L (150-450) k/uL Neutrophils # 15.3 H (1.3-7.7) k/uL Lymphocytes # 0.8 L (1.0-4.8) k/uL PT 18.5 H (9.0-12.0) sec INR 2.0 H (<1.2) APTT 32.1 H (22.0-30.0) sec ABG pO2 (83-108) mmHg ABG HCO3 (21-25) mmol/L ABG Total CO2 (19-24) mmol/L ABG O2 Saturation (94-97) % ABG Lactic Acid (0.5-1.6) mmol/L BUN 113 H* (9-20) mg/dL Creatinine 2.64 H (0.66-1.25) mg/dL Glucose 114 H (74-99) mg/dL POC Glucose (mg/dL) (75-99) mg/dL Calcium 7.8 L (8.4-10.2) mg/dL Phosphorus 5.0 H (2.5-4.5) mg/dL Magnesium 2.4 H (1.6-2.3) mg/dL Total Bilirubin 5.4 H (0.2-1.3) mg/dL AST 1038 H (17-59) U/L ALT 567 H (21-72) U/L Total Protein 5.2 L (6.3-8.2) g/dL Albumin 2.8 L (3.5-5.0) g/dL 11/25/17 11/25/17 11/25/17 Range/Units 06:23 07:01 07:08 WBC (3.8-10.6) k/uL RBC (4.30-5.90) m/uL Hgb (13.0-17.5) gm/dL Hct (39.0-53.0) % RDW (11.5-15.5) % Plt Count (150-450) k/uL Neutrophils # (1.3-7.7) k/uL Lymphocytes # (1.0-4.8) k/uL PT (9.0-12.0) sec INR (<1.2) APTT (22.0-30.0) sec ABG pO2 117 H (83-108) mmHg ABG HCO3 26 H (21-25) mmol/L ABG Total CO2 27 H (19-24) mmol/L ABG O2 Saturation 98.8 H (94-97) % ABG Lactic Acid (0.5-1.6) mmol/L BUN (9-20) mg/dL Creatinine (0.66-1.25) mg/dL Glucose (74-99) mg/dL POC Glucose (mg/dL) 124 H 124 H (75-99) mg/dL Calcium (8.4-10.2) mg/dL Phosphorus (2.5-4.5) mg/dL Magnesium (1.6-2.3) mg/dL Total Bilirubin (0.2-1.3) mg/dL AST (17-59) U/L ALT (21-72) U/L Total Protein (6.3-8.2) g/dL Albumin (3.5-5.0) g/dL 11/25/17 11/25/17 11/25/17 Range/Units 08:02 09:10 10:09 WBC (3.8-10.6) k/uL RBC (4.30-5.90) m/uL Hgb (13.0-17.5) gm/dL Hct (39.0-53.0) % RDW (11.5-15.5) % Plt Count (150-450) k/uL Neutrophils # (1.3-7.7) k/uL Lymphocytes # (1.0-4.8) k/uL PT (9.0-12.0) sec INR (<1.2) APTT (22.0-30.0) sec ABG pO2 (83-108) mmHg ABG HCO3 (21-25) mmol/L ABG Total CO2 (19-24) mmol/L ABG O2 Saturation (94-97) % ABG Lactic Acid (0.5-1.6) mmol/L BUN (9-20) mg/dL Creatinine (0.66-1.25) mg/dL Glucose (74-99) mg/dL POC Glucose (mg/dL) 124 H 127 H 127 H (75-99) mg/dL Calcium (8.4-10.2) mg/dL Phosphorus (2.5-4.5) mg/dL Magnesium (1.6-2.3) mg/dL Total Bilirubin (0.2-1.3) mg/dL AST (17-59) U/L ALT (21-72) U/L Total Protein (6.3-8.2) g/dL Albumin (3.5-5.0) g/dL 11/25/17 11/25/17 Range/Units 12:10 12:59 WBC (3.8-10.6) k/uL RBC (4.30-5.90) m/uL Hgb (13.0-17.5) gm/dL Hct (39.0-53.0) % RDW (11.5-15.5) % Plt Count (150-450) k/uL Neutrophils # (1.3-7.7) k/uL Lymphocytes # (1.0-4.8) k/uL PT (9.0-12.0) sec INR (<1.2) APTT (22.0-30.0) sec ABG pO2 (83-108) mmHg ABG HCO3 (21-25) mmol/L ABG Total CO2 (19-24) mmol/L ABG O2 Saturation (94-97) % ABG Lactic Acid (0.5-1.6) mmol/L BUN (9-20) mg/dL Creatinine (0.66-1.25) mg/dL Glucose (74-99) mg/dL POC Glucose (mg/dL) 125 H 129 H (75-99) mg/dL Calcium (8.4-10.2) mg/dL Phosphorus (2.5-4.5) mg/dL Magnesium (1.6-2.3) mg/dL Total Bilirubin (0.2-1.3) mg/dL AST (17-59) U/L ALT (21-72) U/L Total Protein (6.3-8.2) g/dL Albumin (3.5-5.0) g/dL Microbiology - Last 24 Hours (Table) 11/24/17 10:51 Blood Culture - Preliminary Blood No Growth after 24 hours 11/24/17 20:30 Gram Stain - Preliminary Sputum Sputum Culture - Preliminary 11/24/17 10:20 Urine Culture - Preliminary Urine,Catheterized Assessment and Plan Plan: Assessment and Recommendations: 1. Thrombocytopenia: - Likely secondary to Shock Liver and Consumption, less likely Heparin exposure. - fibrinogen 500, not consistent with a picture of DIC - Daily CBC - Transfuse to attempt a platelet count of 50K, 2. Prolonged INR/PT - coagulopathy - Worsening - Monitor Daily - INR = 2.0 today - Vitamin K again today 11/25/17 2. Liver Transiminitis: - Likely secondary to shock liver. - No known history of underlying liver disease - Continue to monitor liver per management of primary team 3. Normocytic Anemia: - Monitor CBC, Transfuse for Hemoglobin less than 7 4. Mitral valve regurgitation, post mitral valve repair 5. Ischemic cardiomyopathy, with severe left ventricular systolic dysfunction, with significantly impaired preoperative physical ejection fraction 6. Diabetes mellitus type 2, currently on insulin drip 7. Acute Renal Failure 11/25/17 Discussed case with [employer] and RN today. SLow improvement overnight.
--- NOTE | 2017-11-25 14:51 | P.PN ---
Subjective Progress Note Date: 11/25/17 This is a pleasant gentleman patient of Dr. Spann, newly established to the office to evaluate shortness of breath, dyspnea on exertion, underwent cardiac cath and found to have ischemic cardiomyopathy with severe LV dysfunction, triple-vessel disease prior to bypass surgery, admitted for bypass surgery and valve repair. He has underlying history of diabetes mellitus type 2, hyperlipidemia, Cardiac cath performed 11/09/2017 shows left main coronary up was calcified, circumflex 95% stenosis in the ostial portion, LAD totally occluded just of to the origin of the large diagonal branch, diagonal branch from the percent stenosis, 70% stenosis in the PDA and PLV severe left ventricle systolic dysfunction and mitral regurgitation He is currently in ICU being prepped for CABG and mitral valve repair on 2017 and has intra-aortic balloon pump done through the right femoral artery. 11/17: Patient is having open-heart surgery today. 11/18: Patient is status post quadruple coronary artery bypass grafting using the left internal mammary artery to the left anterior descending coronary artery, a reverse greater saphenous vein graft from the aorta to the diagonal coronary artery, reverse greater saphenous vein graft from the aorta to the first obtuse marginal coronary artery, a reverse greater saphenous vein graft from the aorta to the posterior descending coronary artery and mitral valve repair. Patient remains in the intensive care unit intubated and on mechanical ventilation currently on CPAP for weaning parameters. He continues to have intra-aortic balloon pump in place which is plan to keep for 1 more day. He has a right, left and mediastinal chest tubes in place draining serosanguineous fluid. Urine output is 50-60 mL per hour. He is also on vasopressors. Hemoglobin A1c is 6.7. 8: Patient remains in the intensive care unit. He is currently off oxygen and pulse oxing. He continues to have all [address] Balloon pump was removed. Urine output has been adequate. White count is normal. Hemoglobin 7.3, INR 1.5, creatinine 0.93, blood sugars are running between 104 and 127. He has been afebrile. Heart rate running in the 90s. Blood pressure is stable with current vasopressors. Pulse ox is 9700% on room air. Patient denies having any chest pain. No abdominal pain. No nausea. 84. Patient examined the bedside in the ICU. Currently off oxygen. He is not making enough urine output. Creatinine function has worsened from 0.8-1.2. Hemoglobin 7 this morning status post transfusion 1 unit PRBC. Patient is denies any chest pain, shortness of breath is resting comfortably in the chair. He still continues to have [address] with a AARON drain. Blood sugar between 100-125. 11/21 patient examined bedside in the ICU. Brief episode of atrial fibrillation last night and one dose of IV amiodarone given followed by a maintenance dose Afinitor on 400 mg twice a day. Creatinine increased to 1.8 today. Patient is having minimal urine output with less than 10 mL per hour. Patient may benefit from IV fluids as he has minimal oral intake and has minimal urine output. One bag of 250 mg abdomen given today. Patient received 2 units of PRBCs C yesterday. No bowel movements for the past 3 days. Patient is passing gas. Continue with bowel regimen 11/22: Patient hasn't been noted to have increasing renal numbers with BUN of 66 and creatinine 2.2 and nephrology has been consult did. Patient is also noted to have low urine output and dark urine. He is not eating very much. Patient is more lethargic today. He denies any abdominal pain. Heart rate is controlled in a sinus rhythm. He is currently on oral amiodarone and Lopressor for atrial fibrillation. No anticoagulation due to thrombocytopenia. He is currently off label fed but continued on Primacor. 11/23: Patient has been seen by hematology for thrombocytopenia secondary to shock liver and consumption. Fibrinogen to be checked. Patient be transfused if platelet count is less than 50,000. One dose of vitamin K was given for INR of 1.8 yesterday. INR today is at 2.5, platelet count 41. BUN 89, creatinine 2.30, AST 1470, ALT 721. Urinalysis is turbid, leukoesterase moderate, RBCs greater than 182, wbc's 37, Patient has also been seen by nephrology for acute kidney injury, acute tubular necrosis, oliguria. Recommendations to transfuse if hemoglobin is falls below 7.4 fluid bolus was attempted without improvement and patient was started on Lasix drip. Patient is also continued on Primacor. Urine output has been 35-75 mL per hour. Heart rate has been elevated in the low 100s. Patient has received calcium chloride 1 dose yesterday and repeat today. He was started on Midodrine 10 mg 3 times daily yesterday. He is more lethargic today. He has failed a swallow eval and speech therapy added. Patient has been started on Zoloft for depression but patient appears to be more acute delirium. Patient has been on and off norepinephrine as his blood pressures dropping into the 80 systolic when he sleeps. 11/24: Lasix drip has been discontinued. Patient has received 4 A of bicarbonate is on a bicarb drip. Patient is on levofed and vasopressin along with Primacor. He has received vitamin K and fresh frozen plasma. Urine output is 15-20 mL per hour. Central line was placed today requiring of fresh frozen plasma and vitamin K. There is concern for need of hemodialysis. Patient has diarrhea after having constipation and fecal management system has been placed. His mental status continued to decline yesterday and by this morning he was re -intubated. White count is increasing to 18.5, hemoglobin 7.1, platelet count 48. INR is 2.9, BUN 103, creatinine 3.17, phosphorus 7.5, magnesium 2.7, AST 1301, ALT 623. Total bilirubin is 5.8. Cortisol level was greater than 123. Patient will be resumed back on insulin drip due to hyperglycemia. Echocardiogram reveals EF of 40-45%, mild concentric left ventricular hypertrophy, and only mild gently dilated 34-39, moderate mitral stenosis, mild tricuspid regurgitation, mild pulmonary hypertension 11/25: Patient remains intubated and on mechanical ventilation. We resumed insulin drip yesterday. He remains on Levophed and milrinone. Renal function remains poor with Objective - Vital Signs Vital signs: Vital Signs Temp 98.7 F 11/25/17 08:00 Pulse 100 11/25/17 11:27 Resp 17 11/25/17 09:45 BP 119/54 11/24/17 06:00 Pulse Ox 100 11/25/17 09:45 Intake & Output 11/24/17 11/25/17 11/25/17 18:59 06:59 18:59 Intake Total 2723.143 998.357 643.323 Output Total 1355 1785 470 Balance 1368.143 -786.643 173.323 Weight 82.6 kg 84.1 kg Intake: IV 1114 430.6 150.6 0.9 Bolus 1000 Lactated Ringers 1,000 ml 10 @ 20 mls/hr IV .Q24H JANNA Rx#:[id number] Milrinone-D5W 32.2 4.6 Milrinone-D5w Pmx 20 mg 18.4 In Dextrose/Water 1 100ml .bag @ 0.2 MCG/KG/MIN 4. 66 mls/hr IV .[id number] JANNA Rx#:[id number] Phytonadione 10 mg In 50 Sodium Chloride 0.9% 50 ml @ 100 mls/hr IVPB ONCE STA Rx#:[id number] Piperacillin-Tazobactam 3 50.0 50 .375 gm In Dextrose/Water 1 50ml.bag @ 12.5 mls/hr IVPB Q12HR JANNA Rx#: [id number] Pressure Bags 54 72 18 Sodium Chloride 0.9% 500 180 60 ml @ 20 mls/hr IV .Q24H JANNA Rx#:[id number] Sodium Chloride 0.9% 99 6 ml @ 0.02 UNITS/MIN 6 mls /hr IV .[id number] JANNA with Vasopressin 20 unit Rx#: [id number] Sodium Chloride 0.9% 99 6 ml @ 0.03 UNITS/MIN 9 mls /hr IV .Q11H7M ONE with Vasopressin 20 unit Rx#: [id number] Sodium Chloride 0.9% 99 66 18 ml @ 0.03 UNITS/MIN 9 mls /hr IV .Q11H7M JANNA with Vasopressin 20 unit Rx#: [id number] Intake, IV Titration 1171.143 567.757 402.723 Amount Calcium Chloride 1,000 mg 100 In Sodium Chloride 0.9% 100 ml @ 100 mls/hr IVPB ONCE STA Rx#:[id number] Dextrose 5% in Water 1, 315 000 ml @ 70 mls/hr IV . [id number] JANNA with Sodium Bicarb (1 Meq/ml) 150 ml Rx#:[id number] Furosemide 250 mg In 93 Sodium Chloride 0.9% 225 ml @ 15 MG/HR 15 mls/hr IVP .[id number] AJNNA Rx#: [id number] Insulin Regular 100 unit 7.057 24.620 3.232 In Sodium Chloride 0.9% 100 ml @ Per Protocol IV .Q0M JANNA Rx#:[id number] Milrinone-D5w Pmx 20 mg 33.086 47.144 In Dextrose/Water 1 100ml .bag @ 0.2 MCG/KG/MIN 4. 66 mls/hr IV .[id number] ON LICENSE OF [facility] Rx#:[id number] Norepinephrine 16 mg In 250.000 369.993 20.625 Dextrose 5% in Water 250 ml @ Titrate IV .Q0M ON LICENSE OF [facility] Rx#:[id number] Piperacillin-Tazobactam 3 50 .375 gm In Dextrose/Water 1 50ml.bag @ 12.5 mls/hr IVPB Q12HR ON LICENSE OF [facility] Rx#: [id number] Propofol 1,000 mg In 100.000 100 93.866 Empty Bag 1 bag @ Titrate IV .Q0M ON LICENSE OF [facility] Rx#: [id number] Sodium Chloride 0.9% 1, 80 000 ml @ 40 mls/hr IV . Q24H ON LICENSE OF [facility] Rx#:[id number] Sodium Chloride 0.9% 1, 35 000 ml @ 70 mls/hr IV . [id number] ON LICENSE OF [facility] Rx#:[id number] Sodium Chloride 0.9% 500 80 20 ml @ 20 mls/hr IV .Q24H ON LICENSE OF [facility] Rx#:[id number] Sodium Chloride 0.9% 99 63 6 ml @ 0.03 UNITS/MIN 9 mls /hr IV .Q11H7M ON LICENSE OF [facility] with Vasopressin 20 unit Rx#: [id number] Vancomycin 1,250 mg In 250 Sodium Chloride 0.9% 250 ml @ 125 mls/hr IVPB ONCE ONE Rx#:[id number] Blood Product 288 Ffp 24 Cpd Unit 288 [id number] Other 150 90 Ffp 24 Cpd Unit 30 [id number] Output: Chest Tube Drainage 360 240 50 left pleural 185 120 20 right pleural 175 120 30 Gastric Drainage 700 150 Urine 295 1395 420 Other: Voiding Method Indwelling Catheter Indwelling Catheter Indwelling Catheter ABP, PAP, CO, CI - Last Documented Arterial Blood Pressure 116/55 Pulmonary Artery Pressure 40/15 Cardiac Output 5.0 Cardiac Index 2.7 - Exam General appearance: average body habitus, cooperative, no acute distress - EENT Eyes: anicteric sclerae, EOMI, PERRLA, dentition normal, normal appearance no vision in the left eye blurring of the cornea with spelling ENT: NA/AT, normal oropharynx, intubated and on mechanical ventilation - Respiratory Respiratory: bilateral: CTA, negative: diminished, dullness, rales, rhonchi, wheezing, continues to have right pleural, left pleural chest tubes in place. - Cardiovascular Rhythm: Regularly irregular Heart sounds: normal: S1, S2 Abnormal Heart Sounds: no systolic murmur, no diastolic murmur, no rub, no S3 Gallop, no S4 Gallop, no click, no other - Gastrointestinal General gastrointestinal: normal bowel sounds, soft, Fong draining clear dark urine - Integumentary Integumentary: normal, normal turgor - Neurologic Neurologic: Sedated - Musculoskeletal Musculoskeletal: gait not assessed, strength equal bilaterally not assessed - Labs CBC & Chem 7: 11/25/17 05:18 11/25/17 05:18 Labs: Abnormal Lab Results - Last 24 Hours (Table) 11/24/17 11/24/17 11/24/17 Range/Units 12:15 13:05 13:05 WBC 18.5 H (3.8-10.6) k/uL RBC 2.30 L (4.30-5.90) m/uL Hgb 7.1 L (13.0-17.5) gm/dL Hct 20.4 L (39.0-53.0) % RDW 16.7 H (11.5-15.5) % Plt Count 48 L* (150-450) k/uL Neutrophils # (1.3-7.7) k/uL Lymphocytes # (1.0-4.8) k/uL PT (9.0-12.0) sec INR (<1.2) APTT (22.0-30.0) sec ABG pO2 122 H (83-108) mmHg ABG HCO3 (21-25) mmol/L ABG Total CO2 (19-24) mmol/L ABG O2 Saturation 99.1 H (94-97) % ABG Lactic Acid (0.5-1.6) mmol/L BUN 109 H* (9-20) mg/dL Creatinine 2.99 H (0.66-1.25) mg/dL Glucose 192 H (74-99) mg/dL POC Glucose (mg/dL) (75-99) mg/dL Calcium 7.9 L (8.4-10.2) mg/dL Phosphorus (2.5-4.5) mg/dL Magnesium (1.6-2.3) mg/dL Total Bilirubin (0.2-1.3) mg/dL AST (17-59) U/L ALT (21-72) U/L Total Protein (6.3-8.2) g/dL Albumin (3.5-5.0) g/dL 11/24/17 11/24/17 11/24/17 Range/Units 14:58 15:00 15:10 WBC (3.8-10.6) k/uL RBC (4.30-5.90) m/uL Hgb (13.0-17.5) gm/dL Hct (39.0-53.0) % RDW (11.5-15.5) % Plt Count (150-450) k/uL Neutrophils # (1.3-7.7) k/uL Lymphocytes # (1.0-4.8) k/uL PT (9.0-12.0) sec INR (<1.2) APTT (22.0-30.0) sec ABG pO2 139 H (83-108) mmHg ABG HCO3 (21-25) mmol/L ABG Total CO2 25 H (19-24) mmol/L ABG O2 Saturation 99.6 H (94-97) % ABG Lactic Acid 2.5 H* (0.5-1.6) mmol/L BUN (9-20) mg/dL Creatinine (0.66-1.25) mg/dL Glucose (74-99) mg/dL POC Glucose (mg/dL) 227 H (75-99) mg/dL Calcium (8.4-10.2) mg/dL Phosphorus (2.5-4.5) mg/dL Magnesium (1.6-2.3) mg/dL Total Bilirubin (0.2-1.3) mg/dL AST (17-59) U/L ALT (21-72) U/L Total Protein (6.3-8.2) g/dL Albumin (3.5-5.0) g/dL 11/24/17 11/24/17 11/24/17 Range/Units 16:07 17:09 18:07 WBC (3.8-10.6) k/uL RBC (4.30-5.90) m/uL Hgb (13.0-17.5) gm/dL Hct (39.0-53.0) % RDW (11.5-15.5) % Plt Count (150-450) k/uL Neutrophils # (1.3-7.7) k/uL Lymphocytes # (1.0-4.8) k/uL PT (9.0-12.0) sec INR (<1.2) APTT (22.0-30.0) sec ABG pO2 (83-108) mmHg ABG HCO3 (21-25) mmol/L ABG Total CO2 (19-24) mmol/L ABG O2 Saturation (94-97) % ABG Lactic Acid (0.5-1.6) mmol/L BUN (9-20) mg/dL Creatinine (0.66-1.25) mg/dL Glucose (74-99) mg/dL POC Glucose (mg/dL) 217 H 187 H 194 H (75-99) mg/dL Calcium (8.4-10.2) mg/dL Phosphorus (2.5-4.5) mg/dL Magnesium (1.6-2.3) mg/dL Total Bilirubin (0.2-1.3) mg/dL AST (17-59) U/L ALT (21-72) U/L Total Protein (6.3-8.2) g/dL Albumin (3.5-5.0) g/dL 11/24/17 11/24/17 11/24/17 Range/Units 19:05 20:29 20:35 WBC (3.8-10.6) k/uL RBC (4.30-5.90) m/uL Hgb (13.0-17.5) gm/dL Hct (39.0-53.0) % RDW (11.5-15.5) % Plt Count (150-450) k/uL Neutrophils # (1.3-7.7) k/uL Lymphocytes # (1.0-4.8) k/uL PT (9.0-12.0) sec INR (<1.2) APTT (22.0-30.0) sec ABG pO2 (83-108) mmHg ABG HCO3 (21-25) mmol/L ABG Total CO2 (19-24) mmol/L ABG O2 Saturation (94-97) % ABG Lactic Acid 1.7 H (0.5-1.6) mmol/L BUN (9-20) mg/dL Creatinine (0.66-1.25) mg/dL Glucose (74-99) mg/dL POC Glucose (mg/dL) 178 H 167 H (75-99) mg/dL Calcium (8.4-10.2) mg/dL Phosphorus (2.5-4.5) mg/dL Magnesium (1.6-2.3) mg/dL Total Bilirubin (0.2-1.3) mg/dL AST (17-59) U/L ALT (21-72) U/L Total Protein (6.3-8.2) g/dL Albumin (3.5-5.0) g/dL 11/24/17 11/24/17 11/24/17 Range/Units 21:13 22:11 23:11 WBC (3.8-10.6) k/uL RBC (4.30-5.90) m/uL Hgb (13.0-17.5) gm/dL Hct (39.0-53.0) % RDW (11.5-15.5) % Plt Count (150-450) k/uL Neutrophils # (1.3-7.7) k/uL Lymphocytes # (1.0-4.8) k/uL PT (9.0-12.0) sec INR (<1.2) APTT (22.0-30.0) sec ABG pO2 (83-108) mmHg ABG HCO3 (21-25) mmol/L ABG Total CO2 (19-24) mmol/L ABG O2 Saturation (94-97) % ABG Lactic Acid (0.5-1.6) mmol/L BUN (9-20) mg/dL Creatinine (0.66-1.25) mg/dL Glucose (74-99) mg/dL POC Glucose (mg/dL) 151 H 143 H 135 H (75-99) mg/dL Calcium (8.4-10.2) mg/dL Phosphorus (2.5-4.5) mg/dL Magnesium (1.6-2.3) mg/dL Total Bilirubin (0.2-1.3) mg/dL AST (17-59) U/L ALT (21-72) U/L Total Protein (6.3-8.2) g/dL Albumin (3.5-5.0) g/dL 11/25/17 11/25/17 11/25/17 Range/Units 01:02 02:06 04:12 WBC (3.8-10.6) k/uL RBC (4.30-5.90) m/uL Hgb (13.0-17.5) gm/dL Hct (39.0-53.0) % RDW (11.5-15.5) % Plt Count (150-450) k/uL Neutrophils # (1.3-7.7) k/uL Lymphocytes # (1.0-4.8) k/uL PT (9.0-12.0) sec INR (<1.2) APTT (22.0-30.0) sec ABG pO2 (83-108) mmHg ABG HCO3 (21-25) mmol/L ABG Total CO2 (19-24) mmol/L ABG O2 Saturation (94-97) % ABG Lactic Acid (0.5-1.6) mmol/L BUN (9-20) mg/dL Creatinine (0.66-1.25) mg/dL Glucose (74-99) mg/dL POC Glucose (mg/dL) 133 H 128 H 130 H (75-99) mg/dL Calcium (8.4-10.2) mg/dL Phosphorus (2.5-4.5) mg/dL Magnesium (1.6-2.3) mg/dL Total Bilirubin (0.2-1.3) mg/dL AST (17-59) U/L ALT (21-72) U/L Total Protein (6.3-8.2) g/dL Albumin (3.5-5.0) g/dL 11/25/1718 11/25/17 Range/Units 05:14 05:18 05:18 WBC 17.8 H (3.8-10.6) k/uL RBC 2.43 L (4.30-5.90) m/uL Hgb 7.2 L (13.0-17.5) gm/dL Hct 21.6 L (39.0-53.0) % RDW 17.1 H (11.5-15.5) % Plt Count 64 L (150-450) k/uL Neutrophils # 15.3 H (1.3-7.7) k/uL Lymphocytes # 0.8 L (1.0-4.8) k/uL PT (9.0-12.0) sec INR (<1.2) APTT (22.0-30.0) sec ABG pO2 (83-108) mmHg ABG HCO3 (21-25) mmol/L ABG Total CO2 (19-24) mmol/L ABG O2 Saturation (94-97) % ABG Lactic Acid (0.5-1.6) mmol/L BUN 113 H* (9-20) mg/dL Creatinine 2.64 H (0.66-1.25) mg/dL Glucose 114 H (74-99) mg/dL POC Glucose (mg/dL) 134 H (75-99) mg/dL Calcium 7.8 L (8.4-10.2) mg/dL Phosphorus 5.0 H (2.5-4.5) mg/dL Magnesium 2.4 H (1.6-2.3) mg/dL Total Bilirubin 5.4 H (0.2-1.3) mg/dL AST 1038 H (17-59) U/L ALT 567 H (21-72) U/L Total Protein 5.2 L (6.3-8.2) g/dL Albumin 2.8 L (3.5-5.0) g/dL 11/25/17 11/25/17 11/25/17 Range/Units 05:18 06:23 07:01 WBC (3.8-10.6) k/uL RBC (4.30-5.90) m/uL Hgb (13.0-17.5) gm/dL Hct (39.0-53.0) % RDW (11.5-15.5) % Plt Count (150-450) k/uL Neutrophils # (1.3-7.7) k/uL Lymphocytes # (1.0-4.8) k/uL PT 18.5 H (9.0-12.0) sec INR 2.0 H (<1.2) APTT 32.1 H (22.0-30.0) sec ABG pO2 (83-108) mmHg ABG HCO3 (21-25) mmol/L ABG Total CO2 (19-24) mmol/L ABG O2 Saturation (94-97) % ABG Lactic Acid (0.5-1.6) mmol/L BUN (9-20) mg/dL Creatinine (0.66-1.25) mg/dL Glucose (74-99) mg/dL POC Glucose (mg/dL) 124 H 124 H (75-99) mg/dL Calcium (8.4-10.2) mg/dL Phosphorus (2.5-4.5) mg/dL Magnesium (1.6-2.3) mg/dL Total Bilirubin (0.2-1.3) mg/dL AST (17-59) U/L ALT (21-72) U/L Total Protein (6.3-8.2) g/dL Albumin (3.5-5.0) g/dL 11/25/17 11/25/17 11/25/17 Range/Units 07:08 08:02 09:10 WBC (3.8-10.6) k/uL RBC (4.30-5.90) m/uL Hgb (13.0-17.5) gm/dL Hct (39.0-53.0) % RDW (11.5-15.5) % Plt Count (150-450) k/uL Neutrophils # (1.3-7.7) k/uL Lymphocytes # (1.0-4.8) k/uL PT (9.0-12.0) sec INR (<1.2) APTT (22.0-30.0) sec ABG pO2 117 H (83-108) mmHg ABG HCO3 26 H (21-25) mmol/L ABG Total CO2 27 H (19-24) mmol/L ABG O2 Saturation 98.8 H (94-97) % ABG Lactic Acid (0.5-1.6) mmol/L BUN (9-20) mg/dL Creatinine (0.66-1.25) mg/dL Glucose (74-99) mg/dL POC Glucose (mg/dL) 124 H 127 H (75-99) mg/dL Calcium (8.4-10.2) mg/dL Phosphorus (2.5-4.5) mg/dL Magnesium (1.6-2.3) mg/dL Total Bilirubin (0.2-1.3) mg/dL AST (17-59) U/L ALT (21-72) U/L Total Protein (6.3-8.2) g/dL Albumin (3.5-5.0) g/dL 11/25/17 Range/Units 10:09 WBC (3.8-10.6) k/uL RBC (4.30-5.90) m/uL Hgb (13.0-17.5) gm/dL Hct (39.0-53.0) % RDW (11.5-15.5) % Plt Count (150-450) k/uL Neutrophils # (1.3-7.7) k/uL Lymphocytes # (1.0-4.8) k/uL PT (9.0-12.0) sec INR (<1.2) APTT (22.0-30.0) sec ABG pO2 (83-108) mmHg ABG HCO3 (21-25) mmol/L ABG Total CO2 (19-24) mmol/L ABG O2 Saturation (94-97) % ABG Lactic Acid (0.5-1.6) mmol/L BUN (9-20) mg/dL Creatinine (0.66-1.25) mg/dL Glucose (74-99) mg/dL POC Glucose (mg/dL) 127 H (75-99) mg/dL Calcium (8.4-10.2) mg/dL Phosphorus (2.5-4.5) mg/dL Magnesium (1.6-2.3) mg/dL Total Bilirubin (0.2-1.3) mg/dL AST (17-59) U/L ALT (21-72) U/L Total Protein (6.3-8.2) g/dL Albumin (3.5-5.0) g/dL Microbiology - Last 24 Hours (Table) 11/24/17 20:30 Gram Stain - Preliminary Sputum Sputum Culture - Preliminary 11/24/17 10:20 Urine Culture - Preliminary Urine,Catheterized Assessment and Plan Plan: (1) Coronary artery disease and moderate mitral valve regurgitation Triple vessel disease noted on cardiac cath agent status post CABG and mitral valve repair on all 11/17/2017. Continue on aspirin, metoprolol. ICU die baker Dr. Paul/[place] on consult. Continue current management per cardio vascular surgery team (2) Ischemic cardiomyopathy Has impaired ejection fraction of 38%, along with congestive heart failure. (3) Congestive heart failure with cardiomyopathy Acute on chronic systolic and diastolic heart failure (4) Hyperlipidemia Patient currently not on statins (5) GI prophylaxis (6) DVT prophylaxis (7) Steal syndrome, subclavian Carotid Dopplers 11/10/2017 shows no carotid stenosis however there is to and fro flow within the right vertebral artery could reflect manifestation of subclavian steal physiology prior to with continuous flow reversal. Currently asymptomatic continue to monitor (8) Pulmonary hypertension PILAR on 11/10/2017, moderate pulmonary hypertension also shows intact atrial septum with no evidence of [id number] shunt physiology, unable to locate pressures for right ventricular systolic 9. Thrombocytopenia secondary to consumption. Fibrinogen ordered. Patient is off aspirin, Plavix and Arixtra. Consult with oncology appreciated. Recommendations for platelet transfusion if less than 50,000. 10. Anemia, secondary to a combination of acute blood loss and renal failure with drop in hemoglobin from 10-6.5. Patient is status post multiple blood products. 11. Acute kidney injury, acute tubular necrosis, oliguric secondary to hypotension, hypoperfusion. Consult with nephrology appreciated. Off Lasix drip. Status post IV bicarbonate and currently on a drip to repeat labs this afternoon. 12. Post op atrial fibrillation, expected outcome of surgery. Patient has been on amiodarone and Lopressor. 13. Liver transaminitis and coagulopathy secondary to shock liver oncology consult appreciated. Continue to monitor closely. Statin is on hold. 14. Depression, situational. Zoloft was subsequently discontinued. 15. Acute delirium secondary to acute illness. Patient is currently sedated. 16. Hyperglycemia without diabetes. Patient resumed on insulin drip. Hemoglobin A1c is 6.7. 17. Cardiorenal syndrome and cardiogenic shock requiring IV vasopressors. 18. Diarrhea with possible acute GI bleed with acute blood loss anemia. Fecal management system has been placed. Stool for occult blood is positive. The deficit toxin is negative Discharge plan: To be determined Impression and plan of care have been directed as dictated by the signing physician. Amy Renteria nurse practitioner acting as scribe for signing physician.
--- NOTE | 2017-11-25 15:34 | P.PN ---
Subjective Progress Note Date: 11/25/17 Mr. Silva is a 72-year-old white male patient of Dr. Wong, who presented today on 11/16/2017 for elective placement of intra-aortic balloon pump in preparation for three-vessel coronary artery bypass graft surgery and mitral valve repair for severe mitral valve insufficiency and ischemic cardiomyopathy with severely impaired systolic dysfunction. Surgery is scheduled for tomorrow 11/17/[address] Borjas. Patient has been having progressive exertional dyspnea for the last 2 years, and last 3 months patient started experiencing severe limitation of his exercise capacity, becoming quite dyspneic while climbing a flight of stairs. Patient denied any chest pain, palpitations, syncopal episodes. Patient started experiencing bilateral lower extremity edema , and he presented to his PCP for evaluation of his symptoms. Patient has been quite active in sports during his lifetime, in swimming and running. 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 Does not have any chronic pulmonary conditions, has a remote history of smoking, quit 40 years ago , smoked a pack a day for about 5 years. No marijuana use, no EtOH, or recreational drugs. 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 Patient had a heart catheterization on 11/09/2017 which showed calcification of left main coronary artery, with mild to moderate atherosclerotic plaque in the ostial portion, circumflex with a 95% stenosis, complete occlusion of the LAD just off to the origin of the large diagonal branch, and 70% stenosis of the diagonal branch. Diffuse disease in the RCA, with a 70% stenosis at the bifurcation into PDA and PLV, and significant disease in the PDA and PLV. All the vessels were noted to be irregular, ectatic and in places aneurysmal. LVEDP was 31 mm, without significant gradient across the aortic valve. PILAR on 11/10/2017 showed ischemic cardiomyopathy with severe left ventricular systolic dysfunction, akinetic inferior wall and the septum, hypokinetic anterior wall. Moderate pulmonary hypertension and moderate mitral regurgitation. Patient was recommended surgical intervention for his symptoms, and he opted for three- vessel coronary artery bypass grafting and mitral valve repair tomorrow. Bedside spirometry was reviewed and showed FEV1 of 1.35 L or 43% of predicted, FVC of 1.65 L or 38% of predicted, consistent with severe restriction. Preop chest x-ray from 11/10/2017 showed mild cardiomegaly with small to moderate- sized right greater than the left pleural effusions and associated compressive atelectasis. Patient is seen in the intensive care, resting in bed, room air pulse ox is 92-97%, he denies any dyspnea, he is afebrile, intra-aortic balloon pump is in place, via right femoral artery. He is currently on 1:1 IABP frequency, with augmented diastolic pressure of 131 mmHg. Distal pulses are intact, sensory status is intact. Fong catheter is in place, patient is nonoliguric. Radial pulses are intact. Patient is on heparin drip at 12 u/kg/ hr. No other drips. He is on oral Lasix at 40 mg daily. Currently resting in bed, in no acute distress. On 11/18/2017 the patient is being seen for a follow-up. Note that he had a prolonged surgery which involved a 4-vessel bypass surgery and mitral valve repair. The patient arrived to the intensive care unit around 7 PM in the evening. He was on an intra-aortic balloon pump. He was also inotropes. Chest x-ray was reviewed. The patient adequate expansion of both lungs. The patient a mediastinal chest tube in the right and left pleural chest tubes. Output from the chest as was considerably high especially from the mediastinal chest tube. Overnight the patient required a total of 4 units of packed RBCs and 4 units of 4 shows and plasma and 2 units of platelets and he also received DDAVP. He received also IV fluids in the form of crystalloids and colloids. The output from the sun chest gradually improved and earlier this morning it was only putting out 20 mL an hour and currently Dopplers somewhere between 20- 40 mL an hour. As for the right pleural chest tubes output initially was initially low and then picked up and it's up to 60-80 mL an hour. The left pleural chest tube is putting out 50 mL an hour. The patient is currently on norepinephrine infusion at 7 g per KG pigmented minutes. He is also on methadone at 0.3 g per KG pigmented minutes. He is also on vasopressin and dopamine. He is also on intra-aortic balloon pump with one-to-one augmentation. The augmented blood pressure is 91. Attempts to cut down the augmentation through the intra-aortic balloon pump has failed as the patient is pressure urine output. In terms of his respiratory status, the patient is a mechanical ventilator. He is currently on assist control mode of ventilation at the rate of 12 with an FiO2 of 4040% and a PEEP of 5 and FiO2 has been drop down to 40% and tidal volumes of 500. The morning blood gases showed a pH of 7.39 with a pCO2 of 40 and pO2 of 217, and note that this was done and FiO2 of 100%. His current FiO2 is down to 40%. Renal function stable with a creatinine of 0.8. Rest of the electrodes are all within normal limits. Correlation profile is within normal limits. Most recent hemoglobin is at 7.3. The patient was sedated with Diprivan and the patient is currently off Diprivan and when it parameters are being checked. Urine output is in order of 30-40 mL an hour over the past 2 hours. His most recent blood sugar is at 137. On 11/19/2017 and seeing this patient for a follow-up. This patient is status post four-vessel bypass surgery and mitral valve replacement. Is postop day # 2. Note that the patient was extubated yesterday without any major difficulties and currently is on oxygen by nasal cannula 2 L/m. The chest x- ray shows adequate expansion of both lungs. There is some pulmonary vessel congestion. The patient has all of these chest tubes in place. The Mesa-Wendie catheter is also in place. As far as his breathing status, is not having any respiratory difficulties. Sternum stable clean and intact. The chest tube output over the past 12 hours was 20 mL from the mediastinum, to 90 mL from the right pleural and for 90 mL from the left poor. His most recent hemodynamic parameters shows a cardiac output of 4.8 with an index of 2.5. He has elevated intra-aortic balloon pump was a one-to-one augmentation throughout the night and currently is down to 1-2 augmentation and his augmented mean arterial blood pressures around 72. He is producing adequate amount of urine output. As far as pressors, the patient is on a combination of Primacor at 0.2 g, norepinephrine which is ranging between 1 and 6 g, dopamine at 2.5 Pedro grams per KG pigmented, and vasopressin at physiologic dose of 0.02 units per hour. He is also on lactated Ringer at 40 mL an hour and the patient is currently off insulin drip. No significant events overnight. Is afebrile. He is awake and alert. Moving all 4 extremities and he has adequate pulses in 4 extremities. On 11/20/2017, the patient is being seen in follow-up. The patient is still in the intensive care unit postop day #3. He has done very well post extubation. The intra-aortic balloon pump was discontinued. Hemodynamically, he still requiring pressors and currently the patient is on levo fed at around 5 g per KG pigmented. He is on milrinone at 0.2 micrograms per KG and he is also on vasopressin at physiologic dose of 0.03 units an hour. The patient is off dopamine. Overall cardiac index is somewhat between 2.2 and 2.3. PA diastolic pressures around 17. Urine output dropped over the past hour down to 50 mL an hour. The patient was receiving a unit of packed RBC. Output from the chest tube has been 700 mL on the left pleural over the past 24 hours is 700 mL on the left pleural 500 mL on the right pleural and there is no mediastinal chest tube that was pulled out yesterday. The patient is still on insulin drip for blood sugar control. He is awake and alert. He is feeling very weak and lethargic. He answers questions and follows commands. Trying to use incentive spirometer. The surgical wound site is dry clean and intact. Hemoglobin today is at 7.0. Rated count is at 76. Creatinine is stable at 1.2. Overnight the patient went into to establish with rapid ventricular response. The patient was given to loading dose of amiodarone. Currently is on a maintenance and eye doctor maintenance down to 0.5 mg/m. Around 1 AM this morning the patient converted back to normal sinus rhythm. On 11/21/2017, I'm seeing this patient for a follow-up. Is postop day #4. He remains extubated on 2 L of oxygen by nasal cannula. Intra-aortic balloon pump has been discontinued. The patient has the Mesa-Wendie catheter in place. PA pressures are 33/14. The cardiac index is at 2.4. The patient is on milrinone at 0.1. The patient is also on levo fed and the dose varies between 2-50 mics per KG per minute knowing that the patient is a very labile blood pressure. He is having occasional hypotension and subsequent hypertension and based on that the titration of the levo fed is being done. The patient has developed an acute kidney injury. Creatinine is up to 1.8. He also developed an acute liver injury, probably a shock liver due to low flow state. The patient was receiving diuretics yesterday and currently diuretics on hold. He received 2 units of packed RBC yesterday. He also received 5% albumin, 250 mL yesterday. Urine output is no other of 10 mL an hour. He has a pleural chest tube on the right and on the left, the output from the right is 350 over the past 24 hours unless put out 400 mL over the past 24 hours. Overnight, the patient has short runs of paroxysmal atrial fibrillation and current his rhythm is sinus. Amiodarone is at the maintenance of 400 mg by mouth twice a day. The hemoglobin is at 7.7. Chest x-ray shows some mild increase in pulmonary vascular markings. Chest tubes are in good location. There is no evidence of pneumothorax. Limited bibasilar infiltrates seen and small effusions. He is awake. He is alert. Aspirin was kept on 2 baby dose as the patient developed thrombocytopenia. He is still on Plavix. He is on Arixtra for DVT prophylaxis Reevaluated on 11/22/2017, patient is postoperative day #5, remains on nasal cannula at 2 L, in atrial flutter, receiving amiodarone to control his atrial flutter and possibly convert him. patient is on norepinephrine, being titrated to possibly discontinue if possible. His blood pressure seems to be labile, but at least at present seems to be stable. Renal functioning is getting worse , patient is to be seen by nephrology on consultation. Labs today showed hemoglobin of 7.4 WBC count of 8.6 platelets are low at 27,000. BUN is 66 creatinine 2.22. Liver enzymes were also noted to be elevated, however improving in the last 24 hours but remain elevated. Chest x-ray showed minimal atelectasis no evidence of pneumothorax. On 11/23/2017 patient is seen again in the intensive care unit. His night he had episode of confusion, and agitation for which Ativan was given. Currently he sitting up in the chair, in no acute distress, pulse ox on 2 L per nasal cannula is 96%, vital signs are stable, patient is afebrile. Remains tachycardic in atrial flutter, has heart rate between 1:15 and 120 BPM. His chest x-ray has been reviewed by Dr. Harmon and shows a rotated film, but mostly atelectatic changes, no pulmonary edema, we disagree with the interpretation by radiologist. He remains on milrinone at 0.1 mics per kilo per minute, small dose levo fed at 5 mics per minute, and Lasix drip at 5 mg per hour. She received a small fluid bolus yesterday per nephrology with no significant improvement in urine output. This decision was made to start patient on IV Lasix, currently urine output is ranging from 35-75 ML per hour. No significant swelling in bilateral lower extremities, sounds are positive for minimal crackles over left posterior base, patient appears to be intravascularly dry. His labs were reviewed, shows the PVC of 12.0, hemoglobin 7.4, patient will receive 1 unit of packed red blood cells. INR of 2.5, sodium of 134, potassium is 5.2, B1 is 89 and creatinine is 2.3. LFTs are trending down. Patient's incentive spirometry use has been poor. Patient has left pleural chest tube to continuous wall suction, and there has been 30 mL of serosanguineous drainage overnight, 300 mL in the last 24 hours. Right pleural chest tube with 30 amount of serosanguineous drainage overnight and 350 ML in last 24 hours, no air leak present. On 11/24/2017, patient is back on mechanical ventilation, developed significant shortness of breath last night, he became quite restless confused agitated, and could not follow any verbal commands.. Urine output was minimal in spite of of Lasix at 15 mg per hour. All labs were noted to be abnormal, patient developed worsening metabolic acidosis, worsening anemia thrombocytopenia and INR was also noted to be elevated at 2.9. ABG this morning following intubation showed a pO2 of more than 400 pCO2 of 41 however his pH was 7.10. Patient received 3 Amps of sodium bicarb, follow-up ABG was done and we recommended placing the patient on sodium bicarb drip. Most recent ABG at 12:15 PM showed a pO2 of 122 pCO2 of 35 pH of 7.38 and now he is on 40% FiO2. Tidal volume of 450 assist- control rate of 14 and PEEP of 5. Lasix drip was discontinued, I recommended volume replacement, patient was given fluid boluses, and was also given fresh frozen plasma lactic acid this morning was noted to be 8.1. Hence I recommended empiric antibiotics in the form of vancomycin and Zosyn. I believe his lactic acidosis is mostly hypoperfusion in nature, sepsis is felt to be less likely but not entirely ruled out. Patient is now on norepinephrine is also on vasopressin both are being titrated accordingly. Left IJ central line was placed for pressors to be infused. Had a long discussion regarding this patient with cardiac surgery on the case. Also discussed his condition with the apparel sales leader and we all in agreement to discontinue Lasix drip at this point. Chest x-ray showed evidence of cardiomegaly small bilateral pleural effusions, minimal interstitial changes bilaterally no significant pulmonary edema is noted. On 11/25/2017, the patient is postop day #7 the patient is being seen in the follow-up. Remains intubated on a mechanical ventilator. Vent settings include assist control of 14, tidal volume of 450, FiO2 of 450 and a PEEP of 5. The patient is sedated with Diprivan and the patient is calm comfortable. The patient had a follow-up chest x-ray today and the chest x-ray showed stable findings with mild interstitial changes and trace pleural effusion. All of the tubes are in good location. The patient has still mediastinum and left pleural chest tube. She will also is in a good location. The blood gases from today showed a pH of 7.4 with a pCO2 of 42 and pO2 of 117 and this was done and FiO2 of 35%. Hemodynamically, the patient is still having issues with hypotension. First of all he remains in atrial fibrillation and the rate is tachycardic between 110 and 120. At the same time, the patient is a combination of present including vasopressin physiologic dose, Primacor at 0.3 g and norepinephrine infusion has been weaned down to 20 mics per KG per minutes. And output was in the order of 100 mL an hour. The patient is producing good amount of urine output. In fact for today is producing approximately 3 L of urine output and now. That fluid balance is slightly positive for today. As for the chest tube outputs, the patient is producing approximately 90 mL from the mediastinal chest tube and to 230 mL over the past 24 hours and from the left pleural chest tube the patient has produced 250 mL over the past 24 hours. As for the patient 's or G-tube, the patient has been placed on low intermittent suction and the patient has produced approximately 150 mL overnight. CVP is currently at 11 and ranges between 11 and 20. The patient is being weaned off the pressors. We managed to cut him down to 50 g per KG per minute. Having liquidy stool and the C. diff evaluation was negative. This is probably related to a component of ischemic colitis and the patient has no fever or chills. Lactic acidosis is also improved. The renal function is also improving and the creatinine is down to 2.6. LFTs are normal consistent with aycus-xibq-wyu of the numbers are gradually also improving. Objective - Vital Signs Vital signs: Vital Signs Temp 98 F 11/25/17 12:00 Pulse 97 11/25/17 14:30 Resp 18 11/25/17 14:30 BP 119/54 11/24/17 06:00 Pulse Ox 99 11/25/17 14:30 Intake & Output 11/24/17 11/25/17 11/25/17 18:59 06:59 18:59 Intake Total 2723.143 439.496 8527.443 Output Total 1355 1785 845 Balance 1368.143 -786.643 165.443 Weight 82.6 kg 84.1 kg Intake: IV 1114 430.6 186.6 0.9 Bolus 1000 Lactated Ringers 1,000 ml 10 @ 20 mls/hr IV .Q24H [facility] Rx#:[id number] Milrinone-D5W 32.2 4.6 Milrinone-D5w Pmx 20 mg 18.4 In Dextrose/Water 1 100ml .bag @ 0.2 MCG/KG/MIN 4. 66 mls/hr IV .[id number] [facility] Rx#:[id number] Phytonadione 10 mg In 50 Sodium Chloride 0.9% 50 ml @ 100 mls/hr IVPB [facility]CE [facility] Rx#:[id number] Piperacillin-Tazobactam 3 50.0 50 .375 gm In Dextrose/Water 1 50ml.bag @ 12.5 mls/hr IVPB Q12HR [facility] Rx#: [id number] Pressure Bags 54 72 36 Sodium Chloride 0.9% 500 180 60 ml @ 20 mls/hr IV .Q24H [facility] Rx#:[id number] Sodium Chloride 0.9% 99 6 ml @ 0.02 UNITS/MIN 6 mls /hr IV .[id number] [facility] with Vasopressin 20 unit Rx#: [id number] Sodium Chloride 0.9% 99 6 ml @ 0.03 UNITS/MIN 9 mls /hr IV .Q11H7M [facility] with Vasopressin 20 unit Rx#: [id number] Sodium Chloride 0.9% 99 66 36 ml @ 0.03 UNITS/MIN 9 mls /hr IV .Q11H7M [facility] with Vasopressin 20 unit Rx#: [id number] Intake, IV Titration 1171.143 567.757 713.843 Amount Calcium Chloride 1,000 mg 100 In Sodium Chloride 0.9% 100 ml @ 100 mls/hr IVPB [facility]CE [facility] Rx#:[id number] Dextrose 5% in Water 1, 315 000 ml @ 70 mls/hr IV . [id number] [facility] with Sodium Bicarb (1 Meq/ml) 150 ml Rx#:[id number] Furosemide 250 mg In 93 Sodium Chloride 0.9% 225 ml @ 15 MG/HR 15 mls/hr IVP .[id number] [facility] Rx#: [id number] Insulin Regular 100 unit 7.057 24.620 7.907 In Sodium Chloride 0.9% 100 ml @ Per Protocol IV .Q0M [facility] Rx#:[id number] Milrinone-D5w Pmx 20 mg 33.086 47.144 In Dextrose/Water 1 100ml .bag @ 0.2 MCG/KG/MIN 4. 66 mls/hr IV .[id number] [facility] Rx#:[id number] Norepinephrine 16 mg In 250.000 369.993 117.070 Dextrose 5% in Water 250 ml @ Titrate IV .Q0M [facility] Rx#:[id number] Piperacillin-Tazobactam 3 50 .375 gm In Dextrose/Water 1 50ml.bag @ 12.5 mls/hr IVPB Q12HR [facility] Rx#: [id number] Propofol 1,000 mg In 100.000 100 93.866 Empty Bag 1 bag @ Titrate IV .Q0M [facility] Rx#: [id number] Sodium Chloride 0.9% 1, 80 000 ml @ 40 mls/hr IV . Q24H [facility] Rx#:[id number] Sodium Chloride 0.9% 1, 35 000 ml @ 70 mls/hr IV . [id number] [facility] Rx#:[id number] Sodium Chloride 0.9% 1, 210 000 ml @ 70 mls/hr IV . [id number] [facility] Rx#:[id number] Sodium Chloride 0.9% 500 80 20 ml @ 20 mls/hr IV .Q24H [facility] Rx#:[id number] Sodium Chloride 0.9% 99 63 6 ml @ 0.03 UNITS/MIN 9 mls /hr IV .Q11H7M [facility] with Vasopressin 20 unit Rx#: [id number] Vancomycin 1,250 mg In 250 Sodium Chloride 0.9% 250 ml @ 125 mls/hr IVPB ONCE ONE Rx#:[id number] Tube Feeding 20 Blood Product 288 Ffp 24 Cpd Unit 288 [id number] Other 150 90 Ffp 24 Cpd Unit 30 [id number] Output: Chest Tube Drainage 360 240 100 left pleural 185 120 40 right pleural 175 120 60 Gastric Drainage 700 150 Urine 295 1395 745 Other: Voiding Method Indwelling Catheter Indwelling Catheter Indwelling Catheter ABP, PAP, CO, CI - Last Documented Arterial Blood Pressure 121/48 Pulmonary Artery Pressure 40/15 Cardiac Output 5.0 Cardiac Index 2.7 - Exam - Constitutional Constitutional Comment(s): Currently in no distress, remains sedated on mechanical ventilation. - Respiratory Details: Lungs sounds diminished bilaterally. Respirations even, nonlabored on mechanical ventilation. Current ventilator settings assist control mode, FiO2 35%, tidal volume 450, respiratory rate 14, PEEP 5. 8.0 ET tube present, 25 at the lip. Left pleural chest tube to continuous wall suction, 90 mL serosanguineous drainage overnight, 250 mL in 24 hours. Right pleural chest tube to continuous wall suction, 90 mL serosanguineous drainage overnight, 230 mL in 24 hours. No air leaks present. - Cardiovascular Details: S1, S2 present. Regular, tachycardic rate and rhythm, sinus tach on monitor. Sternum stable. A/V epicardial pacemaker wires present, grounded. Palpable peripheral pulses bilaterally. Trace scrotal edema present. Right radial arterial line, left brachial PICC line, left internal jugular triple-lumen central line present. CVP ranging from 11-20, mostly 14-15. Levo being titrated as needed to keep MAP > 65, vasopressin currently infusing and 0.02 units/min, Primacor currently at 0.02 mcg/kg/min. Heart hugger, antiembolism stockings, SCDs present. - Gastrointestinal Gastrointestinal Comment(s): Abdomen soft, nontender, nondistended. Active bowel sounds present 4 quadrants. OG tube present to low intermittent suction, 750 mL drainage yesterday, 150 mL overnight. Fecal management system present, yellowish brown liquid stool, occult blood positive, C. diff negative. - Genitourinary Genitourinary Comment(s): Fong present draining concentrated urine. Output 115-220 mL/h overnight without diuretics. - Integumentary Integumentary Comment(s): Skin warm and dry, right great toe, left baby toe starting to turn blue likely from high-dose levo. Sternal incision well approximated and covered with dry intact dressing. Left lower extremity EVH site well approximated. - Neurologic Neurologic Comment(s): Currently sedated on mechanical ventilation. - Allied health notes Allied health notes reviewed: nursing - Labs CBC & Chem 7: 11/25/17 05:18 11/25/17 05:18 Labs: Abnormal Lab Results - Last 24 Hours (Table) 11/24/17 11/24/17 11/24/17 Range/Units 16:07 17:09 18:07 WBC (3.8-10.6) k/uL RBC (4.30-5.90) m/uL Hgb (13.0-17.5) gm/dL Hct (39.0-53.0) % RDW (11.5-15.5) % Plt Count (150-450) k/uL Neutrophils # (1.3-7.7) k/uL Lymphocytes # (1.0-4.8) k/uL PT (9.0-12.0) sec INR (<1.2) APTT (22.0-30.0) sec ABG pO2 (83-108) mmHg ABG HCO3 (21-25) mmol/L ABG Total CO2 (19-24) mmol/L ABG O2 Saturation (94-97) % ABG Lactic Acid (0.5-1.6) mmol/L BUN (9-20) mg/dL Creatinine (0.66-1.25) mg/dL Glucose (74-99) mg/dL POC Glucose (mg/dL) 217 H 187 H 194 H (75-99) mg/dL Calcium (8.4-10.2) mg/dL Phosphorus (2.5-4.5) mg/dL Magnesium (1.6-2.3) mg/dL Total Bilirubin (0.2-1.3) mg/dL AST (17-59) U/L ALT (21-72) U/L Total Protein (6.3-8.2) g/dL Albumin (3.5-5.0) g/dL 11/24/17 11/24/17 11/24/17 Range/Units 19:05 20:29 20:35 WBC (3.8-10.6) k/uL RBC (4.30-5.90) m/uL Hgb (13.0-17.5) gm/dL Hct (39.0-53.0) % RDW (11.5-15.5) % Plt Count (150-450) k/uL Neutrophils # (1.3-7.7) k/uL Lymphocytes # (1.0-4.8) k/uL PT (9.0-12.0) sec INR (<1.2) APTT (22.0-30.0) sec ABG pO2 (83-108) mmHg ABG HCO3 (21-25) mmol/L ABG Total CO2 (19-24) mmol/L ABG O2 Saturation (94-97) % ABG Lactic Acid 1.7 H (0.5-1.6) mmol/L BUN (9-20) mg/dL Creatinine (0.66-1.25) mg/dL Glucose (74-99) mg/dL POC Glucose (mg/dL) 178 H 167 H (75-99) mg/dL Calcium (8.4-10.2) mg/dL Phosphorus (2.5-4.5) mg/dL Magnesium (1.6-2.3) mg/dL Total Bilirubin (0.2-1.3) mg/dL AST (17-59) U/L ALT (21-72) U/L Total Protein (6.3-8.2) g/dL Albumin (3.5-5.0) g/dL 11/24/17 11/24/17 11/24/17 Range/Units 21:13 22:11 23:11 WBC (3.8-10.6) k/uL RBC (4.30-5.90) m/uL Hgb (13.0-17.5) gm/dL Hct (39.0-53.0) % RDW (11.5-15.5) % Plt Count (150-450) k/uL Neutrophils # (1.3-7.7) k/uL Lymphocytes # (1.0-4.8) k/uL PT (9.0-12.0) sec INR (<1.2) APTT (22.0-30.0) sec ABG pO2 (83-108) mmHg ABG HCO3 (21-25) mmol/L ABG Total CO2 (19-24) mmol/L ABG O2 Saturation (94-97) % ABG Lactic Acid (0.5-1.6) mmol/L BUN (9-20) mg/dL Creatinine (0.66-1.25) mg/dL Glucose (74-99) mg/dL POC Glucose (mg/dL) 151 H 143 H 135 H (75-99) mg/dL Calcium (8.4-10.2) mg/dL Phosphorus (2.5-4.5) mg/dL Magnesium (1.6-2.3) mg/dL Total Bilirubin (0.2-1.3) mg/dL AST (17-59) U/L ALT (21-72) U/L Total Protein (6.3-8.2) g/dL Albumin (3.5-5.0) g/dL 11/25/17 11/25/17 11/25/17 Range/Units 01:02 02:06 04:12 WBC (3.8-10.6) k/uL RBC (4.30-5.90) m/uL Hgb (13.0-17.5) gm/dL Hct (39.0-53.0) % RDW (11.5-15.5) % Plt Count (150-450) k/uL Neutrophils # (1.3-7.7) k/uL Lymphocytes # (1.0-4.8) k/uL PT (9.0-12.0) sec INR (<1.2) APTT (22.0-30.0) sec ABG pO2 (83-108) mmHg ABG HCO3 (21-25) mmol/L ABG Total CO2 (19-24) mmol/L ABG O2 Saturation (94-97) % ABG Lactic Acid (0.5-1.6) mmol/L BUN (9-20) mg/dL Creatinine (0.66-1.25) mg/dL Glucose (74-99) mg/dL POC Glucose (mg/dL) 133 H 128 H 130 H (75-99) mg/dL Calcium (8.4-10.2) mg/dL Phosphorus (2.5-4.5) mg/dL Magnesium (1.6-2.3) mg/dL Total Bilirubin (0.2-1.3) mg/dL AST (17-59) U/L ALT (21-72) U/L Total Protein (6.3-8.2) g/dL Albumin (3.5-5.0) g/dL 11/25/1718 11/25/17 Range/Units 05:14 05:18 05:18 WBC 17.8 H (3.8-10.6) k/uL RBC 2.43 L (4.30-5.90) m/uL Hgb 7.2 L (13.0-17.5) gm/dL Hct 21.6 L (39.0-53.0) % RDW 17.1 H (11.5-15.5) % Plt Count 64 L (150-450) k/uL Neutrophils # 15.3 H (1.3-7.7) k/uL Lymphocytes # 0.8 L (1.0-4.8) k/uL PT (9.0-12.0) sec INR (<1.2) APTT (22.0-30.0) sec ABG pO2 (83-108) mmHg ABG HCO3 (21-25) mmol/L ABG Total CO2 (19-24) mmol/L ABG O2 Saturation (94-97) % ABG Lactic Acid (0.5-1.6) mmol/L BUN 113 H* (9-20) mg/dL Creatinine 2.64 H (0.66-1.25) mg/dL Glucose 114 H (74-99) mg/dL POC Glucose (mg/dL) 134 H (75-99) mg/dL Calcium 7.8 L (8.4-10.2) mg/dL Phosphorus 5.0 H (2.5-4.5) mg/dL Magnesium 2.4 H (1.6-2.3) mg/dL Total Bilirubin 5.4 H (0.2-1.3) mg/dL AST 1038 H (17-59) U/L ALT 567 H (21-72) U/L Total Protein 5.2 L (6.3-8.2) g/dL Albumin 2.8 L (3.5-5.0) g/dL 11/25/17 11/25/17 11/25/17 Range/Units 05:18 06:23 07:01 WBC (3.8-10.6) k/uL RBC (4.30-5.90) m/uL Hgb (13.0-17.5) gm/dL Hct (39.0-53.0) % RDW (11.5-15.5) % Plt Count (150-450) k/uL Neutrophils # (1.3-7.7) k/uL Lymphocytes # (1.0-4.8) k/uL PT 18.5 H (9.0-12.0) sec INR 2.0 H (<1.2) APTT 32.1 H (22.0-30.0) sec ABG pO2 (83-108) mmHg ABG HCO3 (21-25) mmol/L ABG Total CO2 (19-24) mmol/L ABG O2 Saturation (94-97) % ABG Lactic Acid (0.5-1.6) mmol/L BUN (9-20) mg/dL Creatinine (0.66-1.25) mg/dL Glucose (74-99) mg/dL POC Glucose (mg/dL) 124 H 124 H (75-99) mg/dL Calcium (8.4-10.2) mg/dL Phosphorus (2.5-4.5) mg/dL Magnesium (1.6-2.3) mg/dL Total Bilirubin (0.2-1.3) mg/dL AST (17-59) U/L ALT (21-72) U/L Total Protein (6.3-8.2) g/dL Albumin (3.5-5.0) g/dL 11/25/17 11/25/17 11/25/17 Range/Units 07:08 08:02 09:10 WBC (3.8-10.6) k/uL RBC (4.30-5.90) m/uL Hgb (13.0-17.5) gm/dL Hct (39.0-53.0) % RDW (11.5-15.5) % Plt Count (150-450) k/uL Neutrophils # (1.3-7.7) k/uL Lymphocytes # (1.0-4.8) k/uL PT (9.0-12.0) sec INR (<1.2) APTT (22.0-30.0) sec ABG pO2 117 H (83-108) mmHg ABG HCO3 26 H (21-25) mmol/L ABG Total CO2 27 H (19-24) mmol/L ABG O2 Saturation 98.8 H (94-97) % ABG Lactic Acid (0.5-1.6) mmol/L BUN (9-20) mg/dL Creatinine (0.66-1.25) mg/dL Glucose (74-99) mg/dL POC Glucose (mg/dL) 124 H 127 H (75-99) mg/dL Calcium (8.4-10.2) mg/dL Phosphorus (2.5-4.5) mg/dL Magnesium (1.6-2.3) mg/dL Total Bilirubin (0.2-1.3) mg/dL AST (17-59) U/L ALT (21-72) U/L Total Protein (6.3-8.2) g/dL Albumin (3.5-5.0) g/dL 11/25/17 11/25/17 11/25/17 Range/Units 10:09 12:10 12:59 WBC (3.8-10.6) k/uL RBC (4.30-5.90) m/uL Hgb (13.0-17.5) gm/dL Hct (39.0-53.0) % RDW (11.5-15.5) % Plt Count (150-450) k/uL Neutrophils # (1.3-7.7) k/uL Lymphocytes # (1.0-4.8) k/uL PT (9.0-12.0) sec INR (<1.2) APTT (22.0-30.0) sec ABG pO2 (83-108) mmHg ABG HCO3 (21-25) mmol/L ABG Total CO2 (19-24) mmol/L ABG O2 Saturation (94-97) % ABG Lactic Acid (0.5-1.6) mmol/L BUN (9-20) mg/dL Creatinine (0.66-1.25) mg/dL Glucose (74-99) mg/dL POC Glucose (mg/dL) 127 H 125 H 129 H (75-99) mg/dL Calcium (8.4-10.2) mg/dL Phosphorus (2.5-4.5) mg/dL Magnesium (1.6-2.3) mg/dL Total Bilirubin (0.2-1.3) mg/dL AST (17-59) U/L ALT (21-72) U/L Total Protein (6.3-8.2) g/dL Albumin (3.5-5.0) g/dL Microbiology - Last 24 Hours (Table) 11/24/17 10:20 Urine Culture - Final Urine,Catheterized 11/24/17 10:25 Blood Culture - Preliminary Blood No Growth after 24 hours 11/24/17 10:51 Blood Culture - Preliminary Blood No Growth after 24 hours 11/24/17 20:30 Gram Stain - Preliminary Sputum Sputum Culture - Preliminary Assessment and Plan Plan: #1. Symptomatic multivessel coronary artery disease, with total occlusion of the LAD, 70% stenosis of the diagonal artery, 95% stenosis of the circumflex, diffuse disease in the RCA with 70% stenosis at the bifurcation of the PDA and PLV. Patient is scheduled for coronary artery bypass grafting and mitral valve repair on 11/17/2017 #2. Mitral valve regurgitation, post mitral valve repair #3 shock with ongoing difficulties with hypotension. This is predominantly of a cardiogenic in nature. There may be also some right ventricular dysfunction contiguity to the patient's overall cardiogenic shock. The patient has developed acute shock liver, acute kidney injury and probably some ischemic colitis with secondary diarrhea. Currently on pressors on 15 g of norepinephrine infusion in addition to Primacor and vasopressin. Note that immediately postop the patient had an intra-aortic balloon pump which was subsequently removed. #4 Ischemic cardiomyopathy, with severe left ventricular systolic dysfunction, with significantly impaired preoperative physical ejection fraction #5. Diabetes mellitus type 2, #6. Remote history of nicotine dependence, patient quit 40 years ago, carries 5 -pack-year smoking history #7. Postoperative anemia with a hemoglobin of of 7.0 and the patient will be receiving units of packed RBC. There is an expected outcome of surgery #8. Diabetic retinopathy #9 acute hepatocellular injury/shock liver secondary to above #10 acute kidney injury on top of chronic renal failure, improving and the creatinine is on the decline and the patient is improving his urine output #11 ischemic colitis with secondary diarrhea #12 thrombocytopenia, improving, and expected outcome of cardiac surgery #13 chronic atrial fibrillation him a still on amiodarone for rate control and the patient is on no anticoagulants for now. This is an inherent coagulopathy secondary to liver disease Plan Keep the patient sedated and given a sedation holiday to assess his underlying neurologic functions. Continue pressors. Wean off norepinephrine infusion as tolerated. Monitor hemoglobin. Monitor output from the chest tubes. Continue amiodarone maintenance. Monitor renal function. Monitor liver function. Monitor correlation profile. Monitor platelet counts. Initiate vital 1.5 enteral feeding for nutritional support. Not candidate for further weaning off the mechanical ventilator and extubation for today. We'll continue to follow a. Critically care evaluation, 32 minutes Time with Patient: Greater than 30
[2017-11-25 16:10] LABS: Glucose,Whole Blood 152 mg/dL (75-99)
[2017-11-25 17:20] LABS: Glucose,Whole Blood 149 mg/dL (75-99)
--- NOTE | 2017-11-25 18:20 | PN ---
PROGRESS NOTE Patient is seen for followup for acute kidney injury. Overnight patient's urine output has picked up. He was maintained on a bicarb drip, which was discontinued. There has been no significant ongoing bleeding. Hemoglobin is staying at about 7.2 g/dL. Renal function is improving, with creatinine down to 2.6 today. Patient is maintained on empiric antibiotics. On examination today, he is sedated. Patient is on the vent. Blood pressure this morning was 116/55, heart rate of 99 per minute. Patient is afebrile. EXAMINATION OF THE HEART: S1, S2. EXAMINATION OF LUNGS: Bilateral breath sounds are heard. ABDOMEN: Soft, non-tender. Examination of lower extremities shows no evidence of edema. S[employer] exam cannot be performed. Labs show sodium 141, potassium 4.3, BUN 113, serum creatinine 2.64, hemoglobin 7.2 g/dL, AST 1038 and ALT of 567. ASSESSMENT: 1. Acute kidney injury secondary to hypotension, hypoperfusion, cardiorenal syndrome, initially oliguric, currently nonoliguric. Given his recent elevated lactic acid levels and worsening hypotension which required large doses of pressors, I will continue with the IV fluids at about 60-70 mL/hour. 2. Status post coronary artery bypass surgery and mitral valve replacement. 3. Underlying gastrointestinal bleed, currently not actively bleeding. 4. Transaminitis secondary to hypoperfusion. 5. Vent-dependent respiratory failure. PLAN: Maintain saline at about 70 mL/hour. Repeat labs in a.m. Continue to try and wean off Levophed. Continue empiric antibiotics. MMODL / IJN: [id number] /
[2017-11-25 18:28] LABS: Glucose,Whole Blood 149 mg/dL (75-99)
[2017-11-25 19:12] LABS: Glucose,Whole Blood 152 mg/dL (75-99)
[2017-11-25 19:33] LABS: Albumin 2.5 g/dL (3.5-5.0); Calcium 7.8 mg/dL (8.4-10.2); Magnesium 2.3 mg/dL (1.6-2.3); Potassium 4.2 mmol/L (3.5-5.1); Total Bilirubin 5.5 mg/dL (0.2-1.3)
[2017-11-25 20:14] LABS: Glucose,Whole Blood 167 mg/dL (75-99)
[2017-11-25] MEDS: ERYTHROMYCIN 5 MG/GM OPHTH OINT 3.5 GM TUBE LEFT EYE SCH (20:17)
[2017-11-25] MEDS: MELATONIN 5 MG TABLET PO SCH (20:17)
[2017-11-25] MEDS: prednisoLONE ACETATE 1% OPHTH DROPS 5 ML BTL LEFT EYE SCH (20:18)
[2017-11-25] MEDS: SENNOSIDES-DOCUSATE SODIUM 1 EACH TAB PO SCH (20:19)
[2017-11-25 21:09] LABS: Glucose,Whole Blood 167 mg/dL (75-99)
[2017-11-25 22:12] LABS: Glucose,Whole Blood 156 mg/dL (75-99)
[2017-11-25 23:03] LABS: Glucose,Whole Blood 143 mg/dL (75-99)
[2017-11-26 00:26] LABS: Glucose,Whole Blood 157 mg/dL (75-99)
[2017-11-26 02:15] LABS: Glucose,Whole Blood 166 mg/dL (75-99)
[2017-11-26 03:07] LABS: Glucose,Whole Blood 156 mg/dL (75-99)
[2017-11-26 03:16] LABS: Anisocytosis Slight; Basophils % (A) 0 %; Eosinophils # (A) 0.2 k/uL (0-0.7); Eosinophils % (A) 1 %; HCT 20.6 % (39.0-53.0); Lymphocytes # (A) 0.6 k/uL (1.0-4.8); Lymphocytes % (A) 4 %; MCH 30.4 pg (25.0-35.0); MCV 89.4 fL (80.0-100.0); Mean Platelet Volume 10.2; Monocytes # (A) 0.9 k/uL (0-1.0); Monocytes % (A) 6 %; Neutrophils # (A) 12.3 k/uL (1.3-7.7); Neutrophils % (A) 85 %; RBC 2.31 m/uL (4.30-5.90); RDW 17.8 % (11.5-15.5); WBC 14.6 k/uL (3.8-10.6)
[2017-11-26 03:19] LABS: INR 1.7 (<1.2); Prothrombin Time 15.5 sec (9.0-12.0)
[2017-11-26 03:27] LABS: Ionized Calcium 4.5 mg/dL (4.5-5.3)
[2017-11-26 03:35] LABS: Albumin 2.4 g/dL (3.5-5.0); Calcium 7.7 mg/dL (8.4-10.2); Magnesium 2.3 mg/dL (1.6-2.3); Phosphorus 4.5 mg/dL (2.5-4.5); Potassium 3.9 mmol/L (3.5-5.1); Total Bilirubin 5.6 mg/dL (0.2-1.3); Total Protein 4.9 g/dL (6.3-8.2)
[2017-11-26 03:40] LABS: Vancomycin,Random 14.4 ug/mL
[2017-11-26 03:45] LABS: Platelet Count 67 k/uL (150-450)
[2017-11-26 03:46] LABS: Hypochromasia (M) Present; Poikilocytosis (M) Present
[2017-11-26 05:10] LABS: ABG Base Excess 1.5 mmol/L; ABG HCO3 26 mmol/L (21-25); ABG Oxygen Saturation 99.3 % (94-97); ABG PCO2 38 mmHg (35-45); ABG PH 7.44 (7.35-7.45); ABG PO2 121 mmHg (83-108); ABG TCO2 27 mmol/L (19-24)
[2017-11-26 05:56] LABS: Glucose,Whole Blood 193 mg/dL (75-99)
[2017-11-26] MEDS: MILRINONE-D5W PMX 20 MG in DEXTROSE/WATER 1 100ML.BAG IV SCH (06:15)
[2017-11-26] MEDS: PROPOFOL 1,000 MG in EMPTY BAG 1 BAG IV SCH ×3 (06:16→17:51)
[2017-11-26] MEDS: NOREPINEPHRINE 16 MG in DEXTROSE 5% IN WATER 250 ML IV SCH ×2 (06:20)
[2017-11-26 07:16] LABS: Glucose,Whole Blood 191 mg/dL (75-99)
[2017-11-26] MEDS ORDERED: CALCIUM CHLORIDE 1,000 MG in SODIUM CHLORIDE 0.9% 100 ML IVPB STA (07:45)
[2017-11-26] MEDS: IPRATROPIUM-ALBUTEROL 3 ML NEB INHALATION SCH ×4 (08:17→19:48)
[2017-11-26 08:22] LABS: Glucose,Whole Blood 200 mg/dL (75-99)
--- NOTE | 2017-11-26 08:23 | P.PN ---
Subjective Progress Note Date: 11/26/17 Mr. Silva is a 72-year-old white male patient of Dr. Wong, who presented today on 11/16/2017 for elective placement of intra-aortic balloon pump in preparation for three-vessel coronary artery bypass graft surgery and mitral valve repair for severe mitral valve insufficiency and ischemic cardiomyopathy with severely impaired systolic dysfunction. Surgery is scheduled for tomorrow 11/17/[address] Borjas. Patient has been having progressive exertional dyspnea for the last 2 years, and last 3 months patient started experiencing severe limitation of his exercise capacity, becoming quite dyspneic while climbing a flight of stairs. Patient denied any chest pain, palpitations, syncopal episodes. Patient started experiencing bilateral lower extremity edema , and he presented to his PCP for evaluation of his symptoms. Patient has been quite active in sports during his lifetime, in swimming and running. 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 Does not have any chronic pulmonary conditions, has a remote history of smoking, quit 40 years ago , smoked a pack a day for about 5 years. No marijuana use, no EtOH, or recreational drugs. 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 Patient had a heart catheterization on 11/09/2017 which showed calcification of left main coronary artery, with mild to moderate atherosclerotic plaque in the ostial portion, circumflex with a 95% stenosis, complete occlusion of the LAD just off to the origin of the large diagonal branch, and 70% stenosis of the diagonal branch. Diffuse disease in the RCA, with a 70% stenosis at the bifurcation into PDA and PLV, and significant disease in the PDA and PLV. All the vessels were noted to be irregular, ectatic and in places aneurysmal. LVEDP was 31 mm, without significant gradient across the aortic valve. PILAR on 11/10/2017 showed ischemic cardiomyopathy with severe left ventricular systolic dysfunction, akinetic inferior wall and the septum, hypokinetic anterior wall. Moderate pulmonary hypertension and moderate mitral regurgitation. Patient was recommended surgical intervention for his symptoms, and he opted for three- vessel coronary artery bypass grafting and mitral valve repair tomorrow. Bedside spirometry was reviewed and showed FEV1 of 1.35 L or 43% of predicted, FVC of 1.65 L or 38% of predicted, consistent with severe restriction. Preop chest x-ray from 11/10/2017 showed mild cardiomegaly with small to moderate- sized right greater than the left pleural effusions and associated compressive atelectasis. Patient is seen in the intensive care, resting in bed, room air pulse ox is 92-97%, he denies any dyspnea, he is afebrile, intra-aortic balloon pump is in place, via right femoral artery. He is currently on 1:1 IABP frequency, with augmented diastolic pressure of 131 mmHg. Distal pulses are intact, sensory status is intact. Fong catheter is in place, patient is nonoliguric. Radial pulses are intact. Patient is on heparin drip at 12 u/kg/ hr. No other drips. He is on oral Lasix at 40 mg daily. Currently resting in bed, in no acute distress. On 11/18/2017 the patient is being seen for a follow-up. Note that he had a prolonged surgery which involved a 4-vessel bypass surgery and mitral valve repair. The patient arrived to the intensive care unit around 7 PM in the evening. He was on an intra-aortic balloon pump. He was also inotropes. Chest x-ray was reviewed. The patient adequate expansion of both lungs. The patient a mediastinal chest tube in the right and left pleural chest tubes. Output from the chest as was considerably high especially from the mediastinal chest tube. Overnight the patient required a total of 4 units of packed RBCs and 4 units of 4 shows and plasma and 2 units of platelets and he also received DDAVP. He received also IV fluids in the form of crystalloids and colloids. The output from the sun chest gradually improved and earlier this morning it was only putting out 20 mL an hour and currently Dopplers somewhere between 20- 40 mL an hour. As for the right pleural chest tubes output initially was initially low and then picked up and it's up to 60-80 mL an hour. The left pleural chest tube is putting out 50 mL an hour. The patient is currently on norepinephrine infusion at 7 g per KG pigmented minutes. He is also on methadone at 0.3 g per KG pigmented minutes. He is also on vasopressin and dopamine. He is also on intra-aortic balloon pump with one-to-one augmentation. The augmented blood pressure is 91. Attempts to cut down the augmentation through the intra-aortic balloon pump has failed as the patient is pressure urine output. In terms of his respiratory status, the patient is a mechanical ventilator. He is currently on assist control mode of ventilation at the rate of 12 with an FiO2 of 4040% and a PEEP of 5 and FiO2 has been drop down to 40% and tidal volumes of 500. The morning blood gases showed a pH of 7.39 with a pCO2 of 40 and pO2 of 217, and note that this was done and FiO2 of 100%. His current FiO2 is down to 40%. Renal function stable with a creatinine of 0.8. Rest of the electrodes are all within normal limits. Correlation profile is within normal limits. Most recent hemoglobin is at 7.3. The patient was sedated with Diprivan and the patient is currently off Diprivan and when it parameters are being checked. Urine output is in order of 30-40 mL an hour over the past 2 hours. His most recent blood sugar is at 137. On 11/19/2017 and seeing this patient for a follow-up. This patient is status post four-vessel bypass surgery and mitral valve replacement. Is postop day # 2. Note that the patient was extubated yesterday without any major difficulties and currently is on oxygen by nasal cannula 2 L/m. The chest x- ray shows adequate expansion of both lungs. There is some pulmonary vessel congestion. The patient has all of these chest tubes in place. The Jasper-Wendie catheter is also in place. As far as his breathing status, is not having any respiratory difficulties. Sternum stable clean and intact. The chest tube output over the past 12 hours was 20 mL from the mediastinum, to 90 mL from the right pleural and for 90 mL from the left poor. His most recent hemodynamic parameters shows a cardiac output of 4.8 with an index of 2.5. He has elevated intra-aortic balloon pump was a one-to-one augmentation throughout the night and currently is down to 1-2 augmentation and his augmented mean arterial blood pressures around 72. He is producing adequate amount of urine output. As far as pressors, the patient is on a combination of Primacor at 0.2 g, norepinephrine which is ranging between 1 and 6 g, dopamine at 2.5 Pedro grams per KG pigmented, and vasopressin at physiologic dose of 0.02 units per hour. He is also on lactated Ringer at 40 mL an hour and the patient is currently off insulin drip. No significant events overnight. Is afebrile. He is awake and alert. Moving all 4 extremities and he has adequate pulses in 4 extremities. On 11/20/2017, the patient is being seen in follow-up. The patient is still in the intensive care unit postop day #3. He has done very well post extubation. The intra-aortic balloon pump was discontinued. Hemodynamically, he still requiring pressors and currently the patient is on levo fed at around 5 g per KG pigmented. He is on milrinone at 0.2 micrograms per KG and he is also on vasopressin at physiologic dose of 0.03 units an hour. The patient is off dopamine. Overall cardiac index is somewhat between 2.2 and 2.3. PA diastolic pressures around 17. Urine output dropped over the past hour down to 50 mL an hour. The patient was receiving a unit of packed RBC. Output from the chest tube has been 700 mL on the left pleural over the past 24 hours is 700 mL on the left pleural 500 mL on the right pleural and there is no mediastinal chest tube that was pulled out yesterday. The patient is still on insulin drip for blood sugar control. He is awake and alert. He is feeling very weak and lethargic. He answers questions and follows commands. Trying to use incentive spirometer. The surgical wound site is dry clean and intact. Hemoglobin today is at 7.0. Rated count is at 76. Creatinine is stable at 1.2. Overnight the patient went into to establish with rapid ventricular response. The patient was given to loading dose of amiodarone. Currently is on a maintenance and eye doctor maintenance down to 0.5 mg/m. Around 1 AM this morning the patient converted back to normal sinus rhythm. On 11/21/2017, I'm seeing this patient for a follow-up. Is postop day #4. He remains extubated on 2 L of oxygen by nasal cannula. Intra-aortic balloon pump has been discontinued. The patient has the Jasper-Wendie catheter in place. PA pressures are 33/14. The cardiac index is at 2.4. The patient is on milrinone at 0.1. The patient is also on levo fed and the dose varies between 2-50 mics per KG per minute knowing that the patient is a very labile blood pressure. He is having occasional hypotension and subsequent hypertension and based on that the titration of the levo fed is being done. The patient has developed an acute kidney injury. Creatinine is up to 1.8. He also developed an acute liver injury, probably a shock liver due to low flow state. The patient was receiving diuretics yesterday and currently diuretics on hold. He received 2 units of packed RBC yesterday. He also received 5% albumin, 250 mL yesterday. Urine output is no other of 10 mL an hour. He has a pleural chest tube on the right and on the left, the output from the right is 350 over the past 24 hours unless put out 400 mL over the past 24 hours. Overnight, the patient has short runs of paroxysmal atrial fibrillation and current his rhythm is sinus. Amiodarone is at the maintenance of 400 mg by mouth twice a day. The hemoglobin is at 7.7. Chest x-ray shows some mild increase in pulmonary vascular markings. Chest tubes are in good location. There is no evidence of pneumothorax. Limited bibasilar infiltrates seen and small effusions. He is awake. He is alert. Aspirin was kept on 2 baby dose as the patient developed thrombocytopenia. He is still on Plavix. He is on Arixtra for DVT prophylaxis Reevaluated on 11/22/2017, patient is postoperative day #5, remains on nasal cannula at 2 L, in atrial flutter, receiving amiodarone to control his atrial flutter and possibly convert him. patient is on norepinephrine, being titrated to possibly discontinue if possible. His blood pressure seems to be labile, but at least at present seems to be stable. Renal functioning is getting worse , patient is to be seen by nephrology on consultation. Labs today showed hemoglobin of 7.4 WBC count of 8.6 platelets are low at 27,000. BUN is 66 creatinine 2.22. Liver enzymes were also noted to be elevated, however improving in the last 24 hours but remain elevated. Chest x-ray showed minimal atelectasis no evidence of pneumothorax. On 11/23/2017 patient is seen again in the intensive care unit. His night he had episode of confusion, and agitation for which Ativan was given. Currently he sitting up in the chair, in no acute distress, pulse ox on 2 L per nasal cannula is 96%, vital signs are stable, patient is afebrile. Remains tachycardic in atrial flutter, has heart rate between 1:15 and 120 BPM. His chest x-ray has been reviewed by Dr. Harmon and shows a rotated film, but mostly atelectatic changes, no pulmonary edema, we disagree with the interpretation by radiologist. He remains on milrinone at 0.1 mics per kilo per minute, small dose levo fed at 5 mics per minute, and Lasix drip at 5 mg per hour. She received a small fluid bolus yesterday per nephrology with no significant improvement in urine output. This decision was made to start patient on IV Lasix, currently urine output is ranging from 35-75 ML per hour. No significant swelling in bilateral lower extremities, sounds are positive for minimal crackles over left posterior base, patient appears to be intravascularly dry. His labs were reviewed, shows the PVC of 12.0, hemoglobin 7.4, patient will receive 1 unit of packed red blood cells. INR of 2.5, sodium of 134, potassium is 5.2, B1 is 89 and creatinine is 2.3. LFTs are trending down. Patient's incentive spirometry use has been poor. Patient has left pleural chest tube to continuous wall suction, and there has been 30 mL of serosanguineous drainage overnight, 300 mL in the last 24 hours. Right pleural chest tube with 30 amount of serosanguineous drainage overnight and 350 ML in last 24 hours, no air leak present. On 11/24/2017, patient is back on mechanical ventilation, developed significant shortness of breath last night, he became quite restless confused agitated, and could not follow any verbal commands.. Urine output was minimal in spite of of Lasix at 15 mg per hour. All labs were noted to be abnormal, patient developed worsening metabolic acidosis, worsening anemia thrombocytopenia and INR was also noted to be elevated at 2.9. ABG this morning following intubation showed a pO2 of more than 400 pCO2 of 41 however his pH was 7.10. Patient received 3 Amps of sodium bicarb, follow-up ABG was done and we recommended placing the patient on sodium bicarb drip. Most recent ABG at 12:15 PM showed a pO2 of 122 pCO2 of 35 pH of 7.38 and now he is on 40% FiO2. Tidal volume of 450 assist- control rate of 14 and PEEP of 5. Lasix drip was discontinued, I recommended volume replacement, patient was given fluid boluses, and was also given fresh frozen plasma lactic acid this morning was noted to be 8.1. Hence I recommended empiric antibiotics in the form of vancomycin and Zosyn. I believe his lactic acidosis is mostly hypoperfusion in nature, sepsis is felt to be less likely but not entirely ruled out. Patient is now on norepinephrine is also on vasopressin both are being titrated accordingly. Left IJ central line was placed for pressors to be infused. Had a long discussion regarding this patient with cardiac surgery on the case. Also discussed his condition with the coke drawer and we all in agreement to discontinue Lasix drip at this point. Chest x-ray showed evidence of cardiomegaly small bilateral pleural effusions, minimal interstitial changes bilaterally no significant pulmonary edema is noted. On 11/25/2017, the patient is postop day #7 the patient is being seen in the follow-up. Remains intubated on a mechanical ventilator. Vent settings include assist control of 14, tidal volume of 450, FiO2 of 450 and a PEEP of 5. The patient is sedated with Diprivan and the patient is calm comfortable. The patient had a follow-up chest x-ray today and the chest x-ray showed stable findings with mild interstitial changes and trace pleural effusion. All of the tubes are in good location. The patient has still mediastinum and left pleural chest tube. She will also is in a good location. The blood gases from today showed a pH of 7.4 with a pCO2 of 42 and pO2 of 117 and this was done and FiO2 of 35%. Hemodynamically, the patient is still having issues with hypotension. First of all he remains in atrial fibrillation and the rate is tachycardic between 110 and 120. At the same time, the patient is a combination of present including vasopressin physiologic dose, Primacor at 0.3 g and norepinephrine infusion has been weaned down to 20 mics per KG per minutes. And output was in the order of 100 mL an hour. The patient is producing good amount of urine output. In fact for today is producing approximately 3 L of urine output and now. That fluid balance is slightly positive for today. As for the chest tube outputs, the patient is producing approximately 90 mL from the mediastinal chest tube and to 230 mL over the past 24 hours and from the left pleural chest tube the patient has produced 250 mL over the past 24 hours. As for the patient 's or G-tube, the patient has been placed on low intermittent suction and the patient has produced approximately 150 mL overnight. CVP is currently at 11 and ranges between 11 and 20. The patient is being weaned off the pressors. We managed to cut him down to 50 g per KG per minute. Having liquidy stool and the C. diff evaluation was negative. This is probably related to a component of ischemic colitis and the patient has no fever or chills. Lactic acidosis is also improved. The renal function is also improving and the creatinine is down to 2.6. LFTs are normal consistent with [id number] of the numbers are gradually also improving. On 11/26/2017, patient is postop day #8. Remains intubated. On a mechanical ventilator. Essentially same vent settings with assist control of 14 with tidal volume of 450 and a PEEP of 5 and FiO2 of 35%. Chest x-ray findings are typical postsurgical changes with increased atelectatic changes in lung bases and some subpulmonic pleural effusion and increased interstitial markings. ET tube is in a good location. Chest tubes are also in good location. The patient had a pH of 7.4 with a pCO2 of 38 and pO2 121 based on today's blood gases. Hemodynamically, he is essentially the same. He still requiring Primacor at 0.2 and he is also on norepinephrine infusion at 15 mics and addition to vasopressin physiologic dose. Urine output is noted of 20-30 mL an hour. Net fluid balance over the past 24 hours is +581 mL. Output from the chest tubes of a minimal and we are considering removal of the chest tubes today. His cardiac rhythm is sinus. No fever. No chills. Empiric recovered and is a combination of Zosyn and vancomycin. Tolerating his tube feeds is currently at goal with vital high protein. FMS output is minimal at this point in time. White cell count is at 14.6. Hemoglobin stable at 7.0. Liver function tests are improving and the renal function is stable with a creatinine of 2.2. Insulin is running at 4 units an hour and the patient adequate blood sugar control. Sedation is on Diprivan at 30 mics and the patient is easily arousable and he withdraws to painful semination all 4 extremities. Objective - Vital Signs Vital signs: Vital Signs Temp 98.0 F 11/26/17 04:00 Pulse 94 11/26/17 07:00 Resp 21 11/26/17 07:00 BP 119/54 11/24/17 06:00 Pulse Ox 100 11/26/17 07:00 Intake & Output 11/25/17 11/26/17 11/26/17 18:59 06:59 18:59 Intake Total 0514.765 2301.155 132.248 Output Total 1640 1045 290 Balance 251.023 922.155 -157.752 Weight 84.1 kg 85.4 kg Intake: IV 308.6 874.6 86.6 Milrinone-D5W 4.6 50.6 4.6 Piperacillin-Tazobactam 3 100 50.0 .375 gm In Dextrose/Water 1 50ml.bag @ 12.5 mls/hr IVPB Q12HR [facility] Rx#: [id number] Pressure Bags 72 72 6 Sodium Chloride 0.9% 1, 630 70 000 ml @ 70 mls/hr IV . [id number] [facility] Rx#:[id number] Sodium Chloride 0.9% 500 60 ml @ 20 mls/hr IV .Q24H [facility] Rx#:[id number] Sodium Chloride 0.9% 99 72 72 6 ml @ 0.03 UNITS/MIN 9 mls /hr IV .[id number] [facility] with Vasopressin 20 unit Rx#: [id number] Intake, IV Titration 1322.423 534.555 3.648 Amount Insulin Regular 100 unit 12.607 31.102 3.648 In Sodium Chloride 0.9% 100 ml @ Per Protocol IV .Q0M [facility] Rx#:[id number] Milrinone-D5w Pmx 20 mg 100 In Dextrose/Water 1 100ml .bag @ 0.2 MCG/KG/MIN 4. 66 mls/hr IV .[id number] [facility] Rx#:[id number] Norepinephrine 16 mg In 200.950 166.120 Dextrose 5% in Water 250 ml @ Titrate IV .Q0M [facility] Rx#:[id number] Propofol 1,000 mg In 193.866 97.333 Empty Bag 1 bag @ Titrate IV .Q0M [facility] Rx#: [id number] Sodium Chloride 0.9% 1, 35 000 ml @ 70 mls/hr IV . [id number] [facility] Rx#:[id number] Sodium Chloride 0.9% 1, 630 140 000 ml @ 70 mls/hr IV . [id number] [facility] Rx#:[id number] Vancomycin 1,250 mg In 250 Sodium Chloride 0.9% 250 ml @ 125 mls/hr IVPB ONCE ONE Rx#:[id number] Tube Feeding 140 468 42 Other 120 90 Output: Chest Tube Drainage 210 170 40 left pleural 110 80 20 right pleural 100 90 20 Urine 1430 875 250 Other: Voiding Method Indwelling Catheter Indwelling Catheter ABP, PAP, CO, CI - Last Documented Arterial Blood Pressure 114/41 Pulmonary Artery Pressure 40/15 Cardiac Output 5.0 Cardiac Index 2.7 - Exam - Constitutional Constitutional Comment(s): Currently in no distress, remains sedated on mechanical ventilation. - Respiratory Details: Lungs sounds diminished bilaterally. Respirations even, nonlabored on mechanical ventilation. Current ventilator settings assist control mode, FiO2 35%, tidal volume 450, respiratory rate 14, PEEP 5. 8.0 ET tube present, 25 at the lip. Left pleural chest tube to continuous wall suction, 90 mL serosanguineous drainage overnight, 250 mL in 24 hours. Right pleural chest tube to continuous wall suction, 90 mL serosanguineous drainage overnight, 230 mL in 24 hours. No air leaks present. - Cardiovascular Details: S1, S2 present. Regular, tachycardic rate and rhythm, sinus tach on monitor. Sternum stable. A/V epicardial pacemaker wires present, grounded. Palpable peripheral pulses bilaterally. Trace scrotal edema present. Right radial arterial line, left brachial PICC line, left internal jugular triple-lumen central line present. CVP ranging from 11-20, mostly 14-15. Levo being titrated as needed to keep MAP > 65, vasopressin currently infusing and 0.02 units/min, Primacor currently at 0.02 mcg/kg/min. Heart hugger, antiembolism stockings, SCDs present. - Gastrointestinal Gastrointestinal Comment(s): Abdomen soft, nontender, nondistended. Active bowel sounds present 4 quadrants. OG tube present to low intermittent suction, 750 mL drainage yesterday, 150 mL overnight. Fecal management system present, yellowish brown liquid stool, occult blood positive, C. diff negative. - Genitourinary Genitourinary Comment(s): Fong present draining concentrated urine. Output 115-220 mL/h overnight without diuretics. - Integumentary Integumentary Comment(s): Skin warm and dry, right great toe, left baby toe starting to turn blue likely from high-dose levo. Sternal incision well approximated and covered with dry intact dressing. Left lower extremity EVH site well approximated. - Neurologic Neurologic Comment(s): Currently sedated on mechanical ventilation. - Allied health notes Allied health notes reviewed: nursing - Labs CBC & Chem 7: 11/26/17 03:05 11/26/17 03:05 Labs: Abnormal Lab Results - Last 24 Hours (Table) 11/25/17 11/25/17 11/25/17 Range/Units 09:10 10:09 12:10 WBC (3.8-10.6) k/uL RBC (4.30-5.90) m/uL Hgb (13.0-17.5) gm/dL Hct (39.0-53.0) % RDW (11.5-15.5) % Plt Count (150-450) k/uL Neutrophils # (1.3-7.7) k/uL Lymphocytes # (1.0-4.8) k/uL PT (9.0-12.0) sec INR (<1.2) APTT (22.0-30.0) sec ABG pO2 (83-108) mmHg ABG HCO3 (21-25) mmol/L ABG Total CO2 (19-24) mmol/L ABG O2 Saturation (94-97) % BUN (9-20) mg/dL Creatinine (0.66-1.25) mg/dL Glucose (74-99) mg/dL POC Glucose (mg/dL) 127 H 127 H 125 H (75-99) mg/dL Calcium (8.4-10.2) mg/dL Total Bilirubin (0.2-1.3) mg/dL AST (17-59) U/L ALT (21-72) U/L Total Protein (6.3-8.2) g/dL Albumin (3.5-5.0) g/dL 11/25/17 11/25/17 11/25/17 Range/Units 12:59 16:06 17:17 WBC (3.8-10.6) k/uL RBC (4.30-5.90) m/uL Hgb (13.0-17.5) gm/dL Hct (39.0-53.0) % RDW (11.5-15.5) % Plt Count (150-450) k/uL Neutrophils # (1.3-7.7) k/uL Lymphocytes # (1.0-4.8) k/uL PT (9.0-12.0) sec INR (<1.2) APTT (22.0-30.0) sec ABG pO2 (83-108) mmHg ABG HCO3 (21-25) mmol/L ABG Total CO2 (19-24) mmol/L ABG O2 Saturation (94-97) % BUN (9-20) mg/dL Creatinine (0.66-1.25) mg/dL Glucose (74-99) mg/dL POC Glucose (mg/dL) 129 H 152 H 149 H (75-99) mg/dL Calcium (8.4-10.2) mg/dL Total Bilirubin (0.2-1.3) mg/dL AST (17-59) U/L ALT (21-72) U/L Total Protein (6.3-8.2) g/dL Albumin (3.5-5.0) g/dL 11/25/17 11/25/17 11/25/17 Range/Units 18:26 19:08 19:10 WBC (3.8-10.6) k/uL RBC (4.30-5.90) m/uL Hgb (13.0-17.5) gm/dL Hct (39.0-53.0) % RDW (11.5-15.5) % Plt Count (150-450) k/uL Neutrophils # (1.3-7.7) k/uL Lymphocytes # (1.0-4.8) k/uL PT (9.0-12.0) sec INR (<1.2) APTT (22.0-30.0) sec ABG pO2 (83-108) mmHg ABG HCO3 (21-25) mmol/L ABG Total CO2 (19-24) mmol/L ABG O2 Saturation (94-97) % BUN 116 H* (9-20) mg/dL Creatinine 2.20 H (0.66-1.25) mg/dL Glucose 137 H (74-99) mg/dL POC Glucose (mg/dL) 149 H 152 H (75-99) mg/dL Calcium 7.8 L (8.4-10.2) mg/dL Total Bilirubin 5.5 H (0.2-1.3) mg/dL AST 649 H (17-59) U/L ALT 484 H (21-72) U/L Total Protein 5.0 L (6.3-8.2) g/dL Albumin 2.5 L (3.5-5.0) g/dL 11/25/17 11/25/17 11/25/17 Range/Units 20:13 21:08 22:10 WBC (3.8-10.6) k/uL RBC (4.30-5.90) m/uL Hgb (13.0-17.5) gm/dL Hct (39.0-53.0) % RDW (11.5-15.5) % Plt Count (150-450) k/uL Neutrophils # (1.3-7.7) k/uL Lymphocytes # (1.0-4.8) k/uL PT (9.0-12.0) sec INR (<1.2) APTT (22.0-30.0) sec ABG pO2 (83-108) mmHg ABG HCO3 (21-25) mmol/L ABG Total CO2 (19-24) mmol/L ABG O2 Saturation (94-97) % BUN (9-20) mg/dL Creatinine (0.66-1.25) mg/dL Glucose (74-99) mg/dL POC Glucose (mg/dL) 167 H 167 H 156 H (75-99) mg/dL Calcium (8.4-10.2) mg/dL Total Bilirubin (0.2-1.3) mg/dL AST (17-59) U/L ALT (21-72) U/L Total Protein (6.3-8.2) g/dL Albumin (3.5-5.0) g/dL 11/25/17 11/26/17 11/26/17 Range/Units 23:01 00:24 02:13 WBC (3.8-10.6) k/uL RBC (4.30-5.90) m/uL Hgb (13.0-17.5) gm/dL Hct (39.0-53.0) % RDW (11.5-15.5) % Plt Count (150-450) k/uL Neutrophils # (1.3-7.7) k/uL Lymphocytes # (1.0-4.8) k/uL PT (9.0-12.0) sec INR (<1.2) APTT (22.0-30.0) sec ABG pO2 (83-108) mmHg ABG HCO3 (21-25) mmol/L ABG Total CO2 (19-24) mmol/L ABG O2 Saturation (94-97) % BUN (9-20) mg/dL Creatinine (0.66-1.25) mg/dL Glucose (74-99) mg/dL POC Glucose (mg/dL) 143 H 157 H 166 H (75-99) mg/dL Calcium (8.4-10.2) mg/dL Total Bilirubin (0.2-1.3) mg/dL AST (17-59) U/L ALT (21-72) U/L Total Protein (6.3-8.2) g/dL Albumin (3.5-5.0) g/dL 11/26/17 11/26/17 11/26/17 Range/Units 03:02 03:05 03:05 WBC 14.6 H (3.8-10.6) k/uL RBC 2.31 L (4.30-5.90) m/uL Hgb 7.0 L* (13.0-17.5) gm/dL Hct 20.6 L (39.0-53.0) % RDW 17.8 H (11.5-15.5) % Plt Count 67 L (150-450) k/uL Neutrophils # 12.3 H (1.3-7.7) k/uL Lymphocytes # 0.6 L (1.0-4.8) k/uL PT 15.5 H (9.0-12.0) sec INR 1.7 H (<1.2) APTT 32.0 H (22.0-30.0) sec ABG pO2 (83-108) mmHg ABG HCO3 (21-25) mmol/L ABG Total CO2 (19-24) mmol/L ABG O2 Saturation (94-97) % BUN (9-20) mg/dL Creatinine (0.66-1.25) mg/dL Glucose (74-99) mg/dL POC Glucose (mg/dL) 156 H (75-99) mg/dL Calcium (8.4-10.2) mg/dL Total Bilirubin (0.2-1.3) mg/dL AST (17-59) U/L ALT (21-72) U/L Total Protein (6.3-8.2) g/dL Albumin (3.5-5.0) g/dL 11/26/17 11/26/17 11/26/17 Range/Units 03:05 05:08 05:55 WBC (3.8-10.6) k/uL RBC (4.30-5.90) m/uL Hgb (13.0-17.5) gm/dL Hct (39.0-53.0) % RDW (11.5-15.5) % Plt Count (150-450) k/uL Neutrophils # (1.3-7.7) k/uL Lymphocytes # (1.0-4.8) k/uL PT (9.0-12.0) sec INR (<1.2) APTT (22.0-30.0) sec ABG pO2 121 H (83-108) mmHg ABG HCO3 26 H (21-25) mmol/L ABG Total CO2 27 H (19-24) mmol/L ABG O2 Saturation 99.3 H (94-97) % BUN 114 H* (9-20) mg/dL Creatinine 2.20 H (0.66-1.25) mg/dL Glucose 160 H (74-99) mg/dL POC Glucose (mg/dL) 193 H (75-99) mg/dL Calcium 7.7 L (8.4-10.2) mg/dL Total Bilirubin 5.6 H (0.2-1.3) mg/dL AST 514 H (17-59) U/L ALT 440 H (21-72) U/L Total Protein 4.9 L (6.3-8.2) g/dL Albumin 2.4 L (3.5-5.0) g/dL 11/26/17 Range/Units 07:14 WBC (3.8-10.6) k/uL RBC (4.30-5.90) m/uL Hgb (13.0-17.5) gm/dL Hct (39.0-53.0) % RDW (11.5-15.5) % Plt Count (150-450) k/uL Neutrophils # (1.3-7.7) k/uL Lymphocytes # (1.0-4.8) k/uL PT (9.0-12.0) sec INR (<1.2) APTT (22.0-30.0) sec ABG pO2 (83-108) mmHg ABG HCO3 (21-25) mmol/L ABG Total CO2 (19-24) mmol/L ABG O2 Saturation (94-97) % BUN (9-20) mg/dL Creatinine (0.66-1.25) mg/dL Glucose (74-99) mg/dL POC Glucose (mg/dL) 191 H (75-99) mg/dL Calcium (8.4-10.2) mg/dL Total Bilirubin (0.2-1.3) mg/dL AST (17-59) U/L ALT (21-72) U/L Total Protein (6.3-8.2) g/dL Albumin (3.5-5.0) g/dL Microbiology - Last 24 Hours (Table) 11/24/17 10:20 Urine Culture - Final Urine,Catheterized 11/24/17 10:25 Blood Culture - Preliminary Blood No Growth after 24 hours 11/24/17 10:51 Blood Culture - Preliminary Blood No Growth after 24 hours 11/24/17 20:30 Gram Stain - Preliminary Sputum Sputum Culture - Preliminary Assessment and Plan Plan: #1. Symptomatic multivessel coronary artery disease, with total occlusion of the LAD, 70% stenosis of the diagonal artery, 95% stenosis of the circumflex, diffuse disease in the RCA with 70% stenosis at the bifurcation of the PDA and PLV. Patient is scheduled for coronary artery bypass grafting and mitral valve repair on 11/17/2017. The patient is postop day #8 #2. Mitral valve regurgitation, post mitral valve repair, patient postop day #8 #3 shock with ongoing difficulties with hypotension. This is predominantly of a cardiogenic in nature. There may be also some right ventricular dysfunction contiguity to the patient's overall cardiogenic shock. The patient has developed acute shock liver, acute kidney injury and probably some ischemic colitis with secondary diarrhea. Currently on pressors on 15 g of norepinephrine infusion in addition to Primacor and vasopressin. Not much of an improvement in terms of his hemodynamics compared to yesterday. Nevertheless shock liver is improving. The renal function is stable and the patient is producing adequate amount of urine output. Mean arterial pressures around 60 this morning. Following her cardiac rhythm was noted. #4 Ischemic cardiomyopathy, with severe left ventricular systolic dysfunction, with significantly impaired preoperative physical ejection fraction #5. Diabetes mellitus type 2, the patient is on insulin drip at 40 units an hour #6. Remote history of nicotine dependence, patient quit 40 years ago, carries 5 -pack-year smoking history #7. Postoperative anemia with a hemoglobin of of 7.0 and the patient will be receiving units of packed RBC. There is an expected outcome of surgery #8. Diabetic retinopathy #9 acute hepatocellular injury/shock liver secondary to above, improving #10 acute kidney injury on top of chronic renal failure, stable renal function for now #11 ischemic colitis with secondary diarrhea #12 thrombocytopenia, improving, and expected outcome of cardiac surgery #13 chronic atrial fibrillation him a still on amiodarone for rate control and the patient is on no anticoagulants for now. This is an inherent coagulopathy secondary to liver disease. This morning, the patient's cardiac rhythm is back to normal sinus #14 acute hypoxic respiratory failure secondary to above-mentioned comorbidities. The patient is intubated on mechanical ventilator. Plan Continue vent support. Not ready for weaning based on the ongoing hemodynamic instability on high-dose pressors. Awaiting further improvement in function and shock liver. Cardiac rhythm is sinus. Continue vent support. Discontinue the vancomycin. Continue enteral feeding for nutritional support. Check a baseline cortisol level. Consider hydrocortisone supplementation the patient is relatively adrenal insufficient. Wean off pressors if possible with primary attention on the norepinephrine infusion. We'll continue to follow. Critically care evaluation. 31 minutes.
[2017-11-26] MEDS: SODIUM CHLORIDE 0.9% 99 ML with VASOPRESSIN 20 UNIT IV SCH ×4 (08:24→09:45)
[2017-11-26] MEDS: MIDODRINE 5 MG TAB PO SCH ×3 (08:25→16:45)
--- NOTE | 2017-11-26 08:28 | XR ---
EXAMINATION TYPE: XR chest 1V portable DATE OF EXAM: 11/26/2017 Comparison: 11/25/2017 Clinical History: 72-year-old male Tube placement Findings: ET tube is satisfactory. NG tube courses below the diaphragm. Median sternotomy wires are present wit h post-CABG clips in the mediastinum and annuloplasty ring in the heart. Heart remains moderately enl arged. Diffuse interstitial densities persist. Patchy opacities are increased in the lower lungs with continued small bilateral pleural effusions. Bilateral chest tubes remain without appreciable pneumo thorax. Multiple overlying lines and tubes limited assessment. Left PICC tip at the cavoatrial juncti on. Left IJ CVC tip also at the cavoatrial junction. Impression: 1. Continued interstitial pulmonary edema. Aeration slightly worsening at the lung bases. 2. Continued small effusions with adjacent atelectasis and/or consolidation.
[2017-11-26] MEDS: SODIUM CHLORIDE 0.9% 1,000 ML IV SCH ×2 (08:29→16:14)
[2017-11-26] MEDS: INSULIN REGULAR 100 UNIT in SODIUM CHLORIDE 0.9% 100 ML IV SCH (08:30)
[2017-11-26] MEDS: ASCORBIC ACID 500 MG TAB PO SCH ×2 (08:36→16:45)
[2017-11-26] MEDS: CHLORHEXIDINE GLUCONATE 15 ML CUP MUCOUS MEM SCH ×2 (08:37→20:29)
[2017-11-26] MEDS: FERROUS SULFATE 325 MG TAB PO SCH ×2 (08:37→16:15)
[2017-11-26] MEDS: HEPARIN SODIUM,PORCINE 5,000 UNIT/ML 1 ML VIAL SQ SCH ×3 (08:37→23:58)
[2017-11-26] MEDS: AMIODARONE 200 MG TAB PO SCH ×2 (08:37→20:29)
[2017-11-26] MEDS: PIPERACILLIN-TAZOBACTAM 3.375 GM in DEXTROSE/WATER 1 50ML.BAG IVPB SCH ×3 (08:37→23:59)
[2017-11-26] MEDS: METOPROLOL TARTRATE 12.5 MG TAB PO SCH ×2 (08:37→20:42)
[2017-11-26] MEDS: ASPIRIN 81 MG PO SCH (08:37)
[2017-11-26] MEDS: CLOPIDOGREL 75 MG TAB PO SCH (08:37)
[2017-11-26] MEDS: SERTRALINE 25 MG TAB PO SCH (08:37)
[2017-11-26] MEDS: PANTOPRAZOLE 40 MG/10 ML VIAL IVP SCH (08:38)
--- NOTE | 2017-11-26 09:09 | P.PN ---
Subjective Progress Note Date: 11/26/17 Principal diagnosis: Triple-vessel coronary artery disease. Severe ischemic cardiomyopathy. Moderate mitral valve regurgitation. Mild tricuspid valve regurgitation. Diabetes mellitus with preoperative hemoglobin A1c 6.7%. Hyperlipidemia. Moderate to severe restrictive lung disease with preoperative FEV1 43% of predicted. Evidence of diffuse calcific coronary artery disease. 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 Previous tobacco dependence. POD #10 placement of preoperative intra-aortic balloon pump POD #9 quadruple coronary artery bypass grafting using the left internal mammary artery to the left anterior descending artery, reverse saphenous vein graft from the aorta to the diagonal artery, reverse saphenous vein graft from the aorta to the first obtuse marginal artery, reverse saphenous vein graft from the aorta to the posterior descending artery. Mitral valve repair using a complete ring annuloplasty with a 30 mm Kapoor IMR ring. Exclusion of the left atrial appendage using a 35 mm Atriclip. Intraoperative transesophageal echocardiogram and epi-aortic scanning. Intraoperative graft flow measurements using the Voxxterstim system. Post operative normocytic, normochromic anemia, an expected outcome of surgery. Postoperative thrombocytopenia, an expected outcome of surgery. Postoperative atrial fibrillation, an expected outcome of surgery. Postoperative elevated transaminases, an unexpected outcome of surgery, likely secondary to low flow state post surgery. Postoperative acute kidney injury, an unexpected outcome of surgery, likely secondary to low flow state post surgery. Postoperative acute metabolic acidosis, lactic acidosis, reintubation, an unexpected outcome. Postoperative cardiogenic shock, an unexpected outcome. The patient remains intubated and sedated on 30 mics propofol. He does withdraw to painful stimuli. He remains on Primacor at 0.2 mcg/kg/min, levo currently at 15 mcg/kg, vaso @ 0.02 units/min and insulin drip. CVP has ranged from 9-12. His urine output ranged from 40-130 mL/h overnight. His BUN this morning is 114, creatinine is down to 2.2. Liver enzymes continue to improve. Hemaglobin this morning is 7.0 from 7.2 yesterday, possibly dilutional from fluid volume given over the last 2 days. White blood cell count has slightly decreased, platelet count has increased. Arterial blood gases have significantly improved. He is currently in NSR with heart rate in the 90s. He was started on tube feeding yesterday. He remains critical but his clinical picture is slightly better than yesterday. Objective - Vital Signs Vital signs: Vital Signs Temp 98.0 F 11/26/17 04:00 Pulse 93 11/26/17 08:20 Resp 21 11/26/17 07:00 BP 119/54 11/24/17 06:00 Pulse Ox 100 11/26/17 07:00 Intake & Output 11/25/17 11/26/17 11/26/17 18:59 06:59 18:59 Intake Total 1719.432 6391.155 165.887 Output Total 1640 1045 290 Balance 251.023 922.155 -124.113 Weight 84.1 kg 85.4 kg Intake: IV 308.6 874.6 86.6 Milrinone-D5W 4.6 50.6 4.6 Piperacillin-Tazobactam 3 100 50.0 .375 gm In Dextrose/Water 1 50ml.bag @ 12.5 mls/hr IVPB Q12HR JNANA Rx#: [id number] Pressure Bags 72 72 6 Sodium Chloride 0.9% 1, 630 70 000 ml @ 70 mls/hr IV . [id number] JANNA Rx#:[id number] Sodium Chloride 0.9% 500 60 ml @ 20 mls/hr IV .Q24H JANNA Rx#:[id number] Sodium Chloride 0.9% 99 72 72 6 ml @ 0.03 UNITS/MIN 9 mls /hr IV .[id number] JANNA with Vasopressin 20 unit Rx#: [id number] Intake, IV Titration 1322.423 534.555 37.287 Amount Insulin Regular 100 unit 12.607 31.102 8.698 In Sodium Chloride 0.9% 100 ml @ Per Protocol IV .Q0M JANNA Rx#:[id number] Milrinone-D5w Pmx 20 mg 100 In Dextrose/Water 1 100ml .bag @ 0.2 MCG/KG/MIN 4. 66 mls/hr IV .[id number] JANNA Rx#:[id number] Norepinephrine 16 mg In 200.950 166.120 28.589 Dextrose 5% in Water 250 ml @ Titrate IV .Q0M JANNA Rx#:[id number] Propofol 1,000 mg In 193.866 97.333 Empty Bag 1 bag @ Titrate IV .Q0M JANNA Rx#: [id number] Sodium Chloride 0.9% 1, 35 000 ml @ 70 mls/hr IV . [id number] [facility] Rx#:[id number] Sodium Chloride 0.9% 1, 630 140 000 ml @ 70 mls/hr IV . [id number] [facility] Rx#:[id number] Vancomycin 1,250 mg In 250 Sodium Chloride 0.9% 250 ml @ 125 mls/hr IVPB ONCE ONE Rx#:[id number] Tube Feeding 140 468 42 Other 120 90 Output: Chest Tube Drainage 210 170 40 left pleural 110 80 20 right pleural 100 90 20 Urine 1430 875 250 Other: Voiding Method Indwelling Catheter Indwelling Catheter ABP, PAP, CO, CI - Last Documented Arterial Blood Pressure 114/41 Pulmonary Artery Pressure 40/15 Cardiac Output 5.0 Cardiac Index 2.7 - Constitutional Constitutional Comment(s): Remains sedated and intubated. General appearance: Present: no acute distress - Respiratory Details: Lungs sounds diminished bilaterally. Respirations even, nonlabored on mechanical ventilation. Current ventilator settings assist control mode, FiO2 35%, tidal volume 450, respiratory rate 14, PEEP 5. 8.0 ET tube present, 25 at the lip. Left pleural chest tube to continuous wall suction, 70 mL serosanguineous drainage overnight, 200 mL in 24 hours. Right pleural chest tube to continuous wall suction, 80 mL serosanguineous drainage overnight, 150 mL in 24 hours. No air leaks present. - Cardiovascular Details: S1, S2 present. Regular rate and rhythm, sinus rhythm on monitor. Sternum stable. A/V epicardial pacemaker wires present, grounded. Palpable peripheral pulses bilaterally. Trace bilateral thighs, scrotal edema present. Right radial arterial line, left brachial PICC line, left internal jugular triple- lumen central line present. CVP ranging from 9-12. Levo being titrated as needed to keep MAP > 65, currently at 15 mcg/kg, vasopressin currently infusing and 0.02 units/min, Primacor currently at 0.02 mcg/kg/min. Heart hugger, antiembolism stockings, SCDs present. - Gastrointestinal Gastrointestinal Comment(s): Abdomen soft, nontender, nondistended. Active bowel sounds present 4 quadrants. OG tube present, vital tube feedings infusing at 42 mL/h with minimal residual per nursing. Fecal management system present, yellowish brown liquid stool, occult blood positive, C. diff negative. - Genitourinary Genitourinary Comment(s): Fong present draining concentrated urine. Output 40-130 mL/h overnight without diuretics. - Integumentary Integumentary Comment(s): Skin warm and dry, right great toe with blue spot likely from high-dose levo. Sternal incision well approximated and covered with dry intact dressing. Left lower extremity EVH site well approximated. - Neurologic Neurologic Comment(s): Continues to be sedated with propofol on mechanical ventilation. Does withdraw to painful stimuli times all 4 extremities. - Allied health notes Allied health notes reviewed: nursing - Labs CBC & Chem 7: 11/26/17 03:05 11/26/17 03:05 Labs: Abnormal Lab Results - Last 24 Hours (Table) 11/25/17 11/25/17 11/25/17 Range/Units 09:10 10:09 12:10 WBC (3.8-10.6) k/uL RBC (4.30-5.90) m/uL Hgb (13.0-17.5) gm/dL Hct (39.0-53.0) % RDW (11.5-15.5) % Plt Count (150-450) k/uL Neutrophils # (1.3-7.7) k/uL Lymphocytes # (1.0-4.8) k/uL PT (9.0-12.0) sec INR (<1.2) APTT (22.0-30.0) sec ABG pO2 (83-108) mmHg ABG HCO3 (21-25) mmol/L ABG Total CO2 (19-24) mmol/L ABG O2 Saturation (94-97) % BUN (9-20) mg/dL Creatinine (0.66-1.25) mg/dL Glucose (74-99) mg/dL POC Glucose (mg/dL) 127 H 127 H 125 H (75-99) mg/dL Calcium (8.4-10.2) mg/dL Total Bilirubin (0.2-1.3) mg/dL AST (17-59) U/L ALT (21-72) U/L Total Protein (6.3-8.2) g/dL Albumin (3.5-5.0) g/dL 11/25/17 11/25/17 11/25/17 Range/Units 12:59 16:06 17:17 WBC (3.8-10.6) k/uL RBC (4.30-5.90) m/uL Hgb (13.0-17.5) gm/dL Hct (39.0-53.0) % RDW (11.5-15.5) % Plt Count (150-450) k/uL Neutrophils # (1.3-7.7) k/uL Lymphocytes # (1.0-4.8) k/uL PT (9.0-12.0) sec INR (<1.2) APTT (22.0-30.0) sec ABG pO2 (83-108) mmHg ABG HCO3 (21-25) mmol/L ABG Total CO2 (19-24) mmol/L ABG O2 Saturation (94-97) % BUN (9-20) mg/dL Creatinine (0.66-1.25) mg/dL Glucose (74-99) mg/dL POC Glucose (mg/dL) 129 H 152 H 149 H (75-99) mg/dL Calcium (8.4-10.2) mg/dL Total Bilirubin (0.2-1.3) mg/dL AST (17-59) U/L ALT (21-72) U/L Total Protein (6.3-8.2) g/dL Albumin (3.5-5.0) g/dL 18 11/25/17 11/25/17 Range/Units 18:26 19:08 19:10 WBC (3.8-10.6) k/uL RBC (4.30-5.90) m/uL Hgb (13.0-17.5) gm/dL Hct (39.0-53.0) % RDW (11.5-15.5) % Plt Count (150-450) k/uL Neutrophils # (1.3-7.7) k/uL Lymphocytes # (1.0-4.8) k/uL PT (9.0-12.0) sec INR (<1.2) APTT (22.0-30.0) sec ABG pO2 (83-108) mmHg ABG HCO3 (21-25) mmol/L ABG Total CO2 (19-24) mmol/L ABG O2 Saturation (94-97) % BUN 116 H* (9-20) mg/dL Creatinine 2.20 H (0.66-1.25) mg/dL Glucose 137 H (74-99) mg/dL POC Glucose (mg/dL) 149 H 152 H (75-99) mg/dL Calcium 7.8 L (8.4-10.2) mg/dL Total Bilirubin 5.5 H (0.2-1.3) mg/dL AST 649 H (17-59) U/L ALT 484 H (21-72) U/L Total Protein 5.0 L (6.3-8.2) g/dL Albumin 2.5 L (3.5-5.0) g/dL 11/25/17 11/25/17 11/25/17 Range/Units 20:13 21:08 22:10 WBC (3.8-10.6) k/uL RBC (4.30-5.90) m/uL Hgb (13.0-17.5) gm/dL Hct (39.0-53.0) % RDW (11.5-15.5) % Plt Count (150-450) k/uL Neutrophils # (1.3-7.7) k/uL Lymphocytes # (1.0-4.8) k/uL PT (9.0-12.0) sec INR (<1.2) APTT (22.0-30.0) sec ABG pO2 (83-108) mmHg ABG HCO3 (21-25) mmol/L ABG Total CO2 (19-24) mmol/L ABG O2 Saturation (94-97) % BUN (9-20) mg/dL Creatinine (0.66-1.25) mg/dL Glucose (74-99) mg/dL POC Glucose (mg/dL) 167 H 167 H 156 H (75-99) mg/dL Calcium (8.4-10.2) mg/dL Total Bilirubin (0.2-1.3) mg/dL AST (17-59) U/L ALT (21-72) U/L Total Protein (6.3-8.2) g/dL Albumin (3.5-5.0) g/dL 11/25/17 11/26/17 11/26/17 Range/Units 23:01 00:24 02:13 WBC (3.8-10.6) k/uL RBC (4.30-5.90) m/uL Hgb (13.0-17.5) gm/dL Hct (39.0-53.0) % RDW (11.5-15.5) % Plt Count (150-450) k/uL Neutrophils # (1.3-7.7) k/uL Lymphocytes # (1.0-4.8) k/uL PT (9.0-12.0) sec INR (<1.2) APTT (22.0-30.0) sec ABG pO2 (83-108) mmHg ABG HCO3 (21-25) mmol/L ABG Total CO2 (19-24) mmol/L ABG O2 Saturation (94-97) % BUN (9-20) mg/dL Creatinine (0.66-1.25) mg/dL Glucose (74-99) mg/dL POC Glucose (mg/dL) 143 H 157 H 166 H (75-99) mg/dL Calcium (8.4-10.2) mg/dL Total Bilirubin (0.2-1.3) mg/dL AST (17-59) U/L ALT (21-72) U/L Total Protein (6.3-8.2) g/dL Albumin (3.5-5.0) g/dL 11/26/17 11/26/17 11/26/17 Range/Units 03:02 03:05 03:05 WBC 14.6 H (3.8-10.6) k/uL RBC 2.31 L (4.30-5.90) m/uL Hgb 7.0 L* (13.0-17.5) gm/dL Hct 20.6 L (39.0-53.0) % RDW 17.8 H (11.5-15.5) % Plt Count 67 L (150-450) k/uL Neutrophils # 12.3 H (1.3-7.7) k/uL Lymphocytes # 0.6 L (1.0-4.8) k/uL PT 15.5 H (9.0-12.0) sec INR 1.7 H (<1.2) APTT 32.0 H (22.0-30.0) sec ABG pO2 (83-108) mmHg ABG HCO3 (21-25) mmol/L ABG Total CO2 (19-24) mmol/L ABG O2 Saturation (94-97) % BUN (9-20) mg/dL Creatinine (0.66-1.25) mg/dL Glucose (74-99) mg/dL POC Glucose (mg/dL) 156 H (75-99) mg/dL Calcium (8.4-10.2) mg/dL Total Bilirubin (0.2-1.3) mg/dL AST (17-59) U/L ALT (21-72) U/L Total Protein (6.3-8.2) g/dL Albumin (3.5-5.0) g/dL 11/26/17 11/26/17 11/26/17 Range/Units 03:05 05:08 05:55 WBC (3.8-10.6) k/uL RBC (4.30-5.90) m/uL Hgb (13.0-17.5) gm/dL Hct (39.0-53.0) % RDW (11.5-15.5) % Plt Count (150-450) k/uL Neutrophils # (1.3-7.7) k/uL Lymphocytes # (1.0-4.8) k/uL PT (9.0-12.0) sec INR (<1.2) APTT (22.0-30.0) sec ABG pO2 121 H (83-108) mmHg ABG HCO3 26 H (21-25) mmol/L ABG Total CO2 27 H (19-24) mmol/L ABG O2 Saturation 99.3 H (94-97) % BUN 114 H* (9-20) mg/dL Creatinine 2.20 H (0.66-1.25) mg/dL Glucose 160 H (74-99) mg/dL POC Glucose (mg/dL) 193 H (75-99) mg/dL Calcium 7.7 L (8.4-10.2) mg/dL Total Bilirubin 5.6 H (0.2-1.3) mg/dL AST 514 H (17-59) U/L ALT 440 H (21-72) U/L Total Protein 4.9 L (6.3-8.2) g/dL Albumin 2.4 L (3.5-5.0) g/dL 11/26/17 11/26/17 Range/Units 07:14 08:21 WBC (3.8-10.6) k/uL RBC (4.30-5.90) m/uL Hgb (13.0-17.5) gm/dL Hct (39.0-53.0) % RDW (11.5-15.5) % Plt Count (150-450) k/uL Neutrophils # (1.3-7.7) k/uL Lymphocytes # (1.0-4.8) k/uL PT (9.0-12.0) sec INR (<1.2) APTT (22.0-30.0) sec ABG pO2 (83-108) mmHg ABG HCO3 (21-25) mmol/L ABG Total CO2 (19-24) mmol/L ABG O2 Saturation (94-97) % BUN (9-20) mg/dL Creatinine (0.66-1.25) mg/dL Glucose (74-99) mg/dL POC Glucose (mg/dL) 191 H 200 H (75-99) mg/dL Calcium (8.4-10.2) mg/dL Total Bilirubin (0.2-1.3) mg/dL AST (17-59) U/L ALT (21-72) U/L Total Protein (6.3-8.2) g/dL Albumin (3.5-5.0) g/dL Microbiology - Last 24 Hours (Table) 11/24/17 10:20 Urine Culture - Final Urine,Catheterized 11/24/17 10:25 Blood Culture - Preliminary Blood No Growth after 24 hours 11/24/17 10:51 Blood Culture - Preliminary Blood No Growth after 24 hours 11/24/17 20:30 Gram Stain - Preliminary Sputum Sputum Culture - Preliminary - Imaging and Cardiology Chest x-ray: report reviewed, image reviewed Assessment and Plan (1) Congestive heart failure with cardiomyopathy Current Visit: Yes Status: Chronic Code(s): I50.9 - HEART FAILURE, UNSPECIFIED; I42.9 - CARDIOMYOPATHY, UNSPECIFIED SNOMED Code(s): 55742925 (2) Ischemic cardiomyopathy Current Visit: Yes Status: Chronic Code(s): I25.5 - ISCHEMIC CARDIOMYOPATHY SNOMED Code(s): 316155519 (3) Coronary artery disease Current Visit: Yes Status: Chronic Code(s): I25.10 - ATHSCL HEART DISEASE OF [place] CORONARY ARTERY W/O ANG PCTRS SNOMED Code(s): 31105573 (4) Diabetes mellitus Current Visit: Yes Status: Chronic Code(s): E11.9 - TYPE 2 DIABETES MELLITUS WITHOUT COMPLICATIONS SNOMED Code(s): 82361376 (5) Hyperlipidemia Current Visit: Yes Status: Chronic Code(s): E78.5 - HYPERLIPIDEMIA, UNSPECIFIED SNOMED Code(s): 58940521 (6) Mitral regurgitation Current Visit: Yes Status: Chronic Code(s): I34.0 - NONRHEUMATIC MITRAL ( VALVE) INSUFFICIENCY SNOMED Code(s): 46281815 (7) History of myocardial infarction Current Visit: No Status: Resolved Code(s): I25.2 - OLD MYOCARDIAL INFARCTION SNOMED Code(s): 293103421 (8) Tobacco dependence in remission Current Visit: No Status: Resolved Code(s): F17.201 - NICOTINE DEPENDENCE, UNSPECIFIED, IN REMISSION SNOMED Code(s): 428501752 Plan: 1. Continue low-dose aspirin, Plavix. Will restart subcu heparin today. Patient received another 5 mg of vitamin K and FFP yesterday with decrease in INR. Monitor patient for bleeding. 2. Continue beta michelle. Will increase beta michelle when able. RN instructed to give despite pressor use. 3. Statin discontinued secondary to elevated transaminases. Will restart when transaminases return to normal. 4. Continue amiodarone for A. fib prophylaxis. Will decrease to 200 mg daily on 11/30/17. 5. Wean levo as tolerated. Continue Primacor at 0.2 mcg/kg/min. Wean vasopressin as able. Goal to keep mean arterial pressure greater than 65. 6. Calcium chloride IV ordered. 7. Continue tube feedings. Monitor for gastric residual. 8. No nephrotoxic, hepatotoxic agents. 9. Continue IV fluids per nephrology. 10. Keep Fong catheter for strict accurate intake and output. Change out Fong catheter. 11. Likely will discontinue chest tube soon. 12. Ventilator management, bronchodilators per pulmonology. 13. Sedation holiday daily to assess neurological status. 14. Will monitor daily labs and x-rays. 15. Agree with discontinuing Vancomycin, continue Zosyn per pulmonology, doubt sepsis, likely elevation in lactic acid was secondary to hypoperfusion state. 16. Pain control with current medication regimen. 17. GI/DVT prophylaxis with Protonix and SCDs. 18. C. diff negative, occult blood positive, will continue to monitor. 19. Diabetic management per primary care service. Insulin drip restarted. 20. Continued recommendations based on patient's progress. Time with Patient: Greater than 30
[2017-11-26 09:38] LABS: Glucose,Whole Blood 185 mg/dL (75-99)
[2017-11-26 10:11] LABS: Glucose,Whole Blood 175 mg/dL (75-99)
[2017-11-26 11:00] LABS: Glucose,Whole Blood 160 mg/dL (75-99)
--- NOTE | 2017-11-26 11:54 | PN ---
PROGRESS NOTE Patient is seen for followup for acute kidney injury. The patient remains on the vent. He continues to have good urine output. Levophed is at about mcg. He is maintained on IV fluids at 70 mL an hour. PHYSICAL EXAMINATION: On examination, blood pressure was 114/41, heart rate is about 94 per minute. Patient is afebrile. He is currently on the vent. FiO2 is at 35%. EXAMINATION OF THE HEART: S1, S2. EXAMINATION OF THE LUNGS: Bilateral breath sounds are heard. Abdomen is soft, nontender. Examination of the lower extremities shows edema 1+ bilaterally. TILE INSPECTOR exam cannot be performed. LABS: Labs show hemoglobin 7.0, white cell count 14.6, sodium 140, potassium 3.9, BUN 114, serum creatinine 2.2, phosphorus 4.5. ASSESSMENT: 1. Acute kidney injury secondary to hypotension hypoperfusion and cardiorenal syndrome. Currently, patient is nonoliguric with improvement in renal function. I will continue with fluids for now. We will decrease the rate to about 50 mL an hour in a.m. Continue to try and wean off the pressors. 2. Status post coronary artery bypass surgery. 3. Cardiomyopathy, ejection fraction 30% to 35%. 4. Anemia with possible underlying gastrointestinal bleed. Stool for occult blood was positive. Patient has received 1 unit packed RBCs. 5. Hypoxic respiratory failure, currently on mechanical ventilation. 6. Elevated lactic acid levels secondary to hypoperfusion. 7. Mild hyperkalemia, currently improved. Etiology progressive renal failure and possible underlying gastrointestinal bleed. PLAN: Continue with IV fluids at 70 mL an hour. Decrease rate to 50 mL in a.m. Continue to avoid nephrotoxic agents. Avoid further use of vancomycin. MMODL / IJN: [id number] /
[2017-11-26 12:00] LABS: Glucose,Whole Blood 168 mg/dL (75-99)
--- NOTE | 2017-11-26 12:21 | PN ---
PROGRESS NOTE This patient is status post coronary artery bypass surgery and mitral valve repair. Patient remains hemodynamically stable. Patient currently remains intubated and he is on Levophed drip. Blood pressure is 114/41 mmHg. First and second heart sounds are heard. Lungs reveal bilateral scattered wheezes. The patient's urine output remains good and creatinine is 2.0. INR is 1.7. This morning patient currently is being maintained in normal sinus rhythm. The patient's chest x-ray is suggestive possibly of mild fluid overload. ASSESSMENT AND PLAN: This patient has remained hemodynamically stable. The patient is showing clinical improvement. The patient's acute oliguric renal failure is improving. Currently patient is being maintained on normal sinus rhythm. We will continue the current treatment. MMODL / IJN: [id number] /
[2017-11-26 13:07] LABS: Glucose,Whole Blood 170 mg/dL (75-99)
[2017-11-26] MEDS ORDERED: PHYTONADIONE 10 MG in SODIUM CHLORIDE 0.9% 50 ML IVPB STA (13:51)
--- NOTE | 2017-11-26 14:47 | P.PN ---
Subjective Progress Note Date: 11/26/17 This is a pleasant gentleman patient of Dr. Spann, newly established to the office to evaluate shortness of breath, dyspnea on exertion, underwent cardiac cath and found to have ischemic cardiomyopathy with severe LV dysfunction, triple-vessel disease prior to bypass surgery, admitted for bypass surgery and valve repair. He has underlying history of diabetes mellitus type 2, hyperlipidemia, Cardiac cath performed 11/09/2017 shows left main coronary up was calcified, circumflex 95% stenosis in the ostial portion, LAD totally occluded just of to the origin of the large diagonal branch, diagonal branch from the percent stenosis, 70% stenosis in the PDA and PLV severe left ventricle systolic dysfunction and mitral regurgitation He is currently in ICU being prepped for CABG and mitral valve repair on 2017 and has intra-aortic balloon pump done through the right femoral artery. 11/17: Patient is having open-heart surgery today. 11/18: Patient is status post quadruple coronary artery bypass grafting using the left internal mammary artery to the left anterior descending coronary artery, a reverse greater saphenous vein graft from the aorta to the diagonal coronary artery, reverse greater saphenous vein graft from the aorta to the first obtuse marginal coronary artery, a reverse greater saphenous vein graft from the aorta to the posterior descending coronary artery and mitral valve repair. Patient remains in the intensive care unit intubated and on mechanical ventilation currently on CPAP for weaning parameters. He continues to have intra-aortic balloon pump in place which is plan to keep for 1 more day. He has a right, left and mediastinal chest tubes in place draining serosanguineous fluid. Urine output is 50-60 mL per hour. He is also on vasopressors. Hemoglobin A1c is 6.7. 8: Patient remains in the intensive care unit. He is currently off oxygen and pulse oxing. He continues to have all [address] Balloon pump was removed. Urine output has been adequate. White count is normal. Hemoglobin 7.3, INR 1.5, creatinine 0.93, blood sugars are running between 104 and 127. He has been afebrile. Heart rate running in the 90s. Blood pressure is stable with current vasopressors. Pulse ox is 9700% on room air. Patient denies having any chest pain. No abdominal pain. No nausea. 84. Patient examined the bedside in the ICU. Currently off oxygen. He is not making enough urine output. Creatinine function has worsened from 0.8-1.2. Hemoglobin 7 this morning status post transfusion 1 unit PRBC. Patient is denies any chest pain, shortness of breath is resting comfortably in the chair. He still continues to have [address] with a AARON drain. Blood sugar between 100-125. 11/21 patient examined bedside in the ICU. Brief episode of atrial fibrillation last night and one dose of IV amiodarone given followed by a maintenance dose Afinitor on 400 mg twice a day. Creatinine increased to 1.8 today. Patient is having minimal urine output with less than 10 mL per hour. Patient may benefit from IV fluids as he has minimal oral intake and has minimal urine output. One bag of 250 mg abdomen given today. Patient received 2 units of PRBCs C yesterday. No bowel movements for the past 3 days. Patient is passing gas. Continue with bowel regimen 11/22: Patient hasn't been noted to have increasing renal numbers with BUN of 66 and creatinine 2.2 and nephrology has been consult did. Patient is also noted to have low urine output and dark urine. He is not eating very much. Patient is more lethargic today. He denies any abdominal pain. Heart rate is controlled in a sinus rhythm. He is currently on oral amiodarone and Lopressor for atrial fibrillation. No anticoagulation due to thrombocytopenia. He is currently off label fed but continued on Primacor. 11/23: Patient has been seen by hematology for thrombocytopenia secondary to shock liver and consumption. Fibrinogen to be checked. Patient be transfused if platelet count is less than 50,000. One dose of vitamin K was given for INR of 1.8 yesterday. INR today is at 2.5, platelet count 41. BUN 89, creatinine 2.30, AST 1470, ALT 721. Urinalysis is turbid, leukoesterase moderate, RBCs greater than 182, wbc's 37, Patient has also been seen by nephrology for acute kidney injury, acute tubular necrosis, oliguria. Recommendations to transfuse if hemoglobin is falls below 7.4 fluid bolus was attempted without improvement and patient was started on Lasix drip. Patient is also continued on Primacor. Urine output has been 35-75 mL per hour. Heart rate has been elevated in the low 100s. Patient has received calcium chloride 1 dose yesterday and repeat today. He was started on Midodrine 10 mg 3 times daily yesterday. He is more lethargic today. He has failed a swallow eval and speech therapy added. Patient has been started on Zoloft for depression but patient appears to be more acute delirium. Patient has been on and off norepinephrine as his blood pressures dropping into the 80 systolic when he sleeps. 11/24: Lasix drip has been discontinued. Patient has received 4 A of bicarbonate is on a bicarb drip. Patient is on levofed and vasopressin along with Primacor. He has received vitamin K and fresh frozen plasma. Urine output is 15-20 mL per hour. Central line was placed today requiring of fresh frozen plasma and vitamin K. There is concern for need of hemodialysis. Patient has diarrhea after having constipation and fecal management system has been placed. His mental status continued to decline yesterday and by this morning he was re -intubated. White count is increasing to 18.5, hemoglobin 7.1, platelet count 48. INR is 2.9, BUN 103, creatinine 3.17, phosphorus 7.5, magnesium 2.7, AST 1301, ALT 623. Total bilirubin is 5.8. Cortisol level was greater than 123. Patient will be resumed back on insulin drip due to hyperglycemia. Echocardiogram reveals EF of 40-45%, mild concentric left ventricular hypertrophy, and only mild gently dilated 34-39, moderate mitral stenosis, mild tricuspid regurgitation, mild pulmonary hypertension 11/25: Patient remains intubated and on mechanical ventilation. We resumed insulin drip yesterday. He remains on Levophed and milrinone. Renal function remains poor. 11/26: Patient remains in the intensive care unit, intubated and on mechanical ventilation. Patient has had good urine output. He remains on vasopressin, norepinephrine, insulin drip. BUN is 114 and creatinine 2.2, phosphorus 4.5, white count 14.6. Hemoglobin is 7. There are no orders for transfusion. INR is 1.7. Liver function tests are improving. Sputum culture showing gram- negative bacilli. Objective - Vital Signs Vital signs: Vital Signs Temp 98.0 F 11/26/17 04:00 Pulse 97 11/26/17 08:35 Resp 21 11/26/17 07:00 BP 119/54 11/24/17 06:00 Pulse Ox 100 11/26/17 07:00 Intake & Output 11/25/17 11/26/17 11/26/17 18:59 06:59 18:59 Intake Total 2053.385 2073.155 165.887 Output Total 1640 1045 290 Balance 251.023 922.155 -124.113 Weight 84.1 kg 85.4 kg Intake: IV 308.6 874.6 86.6 Milrinone-D5W 4.6 50.6 4.6 Piperacillin-Tazobactam 3 100 50.0 .375 gm In Dextrose/Water 1 50ml.bag @ 12.5 mls/hr IVPB Q12HR [facility] Rx#: [id number] Pressure Bags 72 72 6 Sodium Chloride 0.9% 1, 630 70 000 ml @ 70 mls/hr IV . [id number] [facility] Rx#:[id number] Sodium Chloride 0.9% 500 60 ml @ 20 mls/hr IV .Q24H [facility] Rx#:[id number] Sodium Chloride 0.9% 99 72 72 6 ml @ 0.03 UNITS/MIN 9 mls /hr IV .[id number] [facility] with Vasopressin 20 unit Rx#: [id number] Intake, IV Titration 1322.423 534.555 37.287 Amount Insulin Regular 100 unit 12.607 31.102 8.698 In Sodium Chloride 0.9% 100 ml @ Per Protocol IV .Q0M [facility] Rx#:[id number] Milrinone-D5w Pmx 20 mg 100 In Dextrose/Water 1 100ml .bag @ 0.2 MCG/KG/MIN 4. 66 mls/hr IV .[id number] [facility] Rx#:[id number] Norepinephrine 16 mg In 200.950 166.120 28.589 Dextrose 5% in Water 250 ml @ Titrate IV .Q0M [facility] Rx#:[id number] Propofol 1,000 mg In 193.866 97.333 Empty Bag 1 bag @ Titrate IV .Q0M [facility] Rx#: [id number] Sodium Chloride 0.9% 1, 35 000 ml @ 70 mls/hr IV . [id number] [facility] Rx#:[id number] Sodium Chloride 0.9% 1, 630 140 000 ml @ 70 mls/hr IV . [id number] [facility] Rx#:[id number] Vancomycin 1,250 mg In 250 Sodium Chloride 0.9% 250 ml @ 125 mls/hr IVPB ONCE ONE Rx#:[id number] Tube Feeding 140 468 42 Other 120 90 Output: Chest Tube Drainage 210 170 40 left pleural 110 80 20 right pleural 100 90 20 Urine 1430 875 250 Other: Voiding Method Indwelling Catheter Indwelling Catheter ABP, PAP, CO, CI - Last Documented Arterial Blood Pressure 114/41 Pulmonary Artery Pressure 40/15 Cardiac Output 5.0 Cardiac Index 2.7 - Exam General appearance: average body habitus, cooperative, no acute distress - EENT Eyes: anicteric sclerae, EOMI, PERRLA, dentition normal, normal appearance no vision in the left eye blurring of the cornea with spelling ENT: NA/AT, normal oropharynx, intubated and on mechanical ventilation - Respiratory Respiratory: bilateral: CTA, negative: diminished, dullness, rales, rhonchi, wheezing, continues to have right pleural, left pleural chest tubes in place. - Cardiovascular Rhythm: Regularly irregular Heart sounds: normal: S1, S2 Abnormal Heart Sounds: no systolic murmur, no diastolic murmur, no rub, no S3 Gallop, no S4 Gallop, no click, no other - Gastrointestinal General gastrointestinal: normal bowel sounds, soft, Fong draining clear dark urine - Integumentary Integumentary: normal, normal turgor - Neurologic Neurologic: Sedated - Musculoskeletal Musculoskeletal: gait not assessed, strength equal bilaterally not assessed - Labs CBC & Chem 7: 11/26/17 03:05 11/26/17 03:05 Labs: Abnormal Lab Results - Last 24 Hours (Table) 11/25/17 11/25/17 11/25/17 Range/Units 10:09 12:10 12:59 WBC (3.8-10.6) k/uL RBC (4.30-5.90) m/uL Hgb (13.0-17.5) gm/dL Hct (39.0-53.0) % RDW (11.5-15.5) % Plt Count (150-450) k/uL Neutrophils # (1.3-7.7) k/uL Lymphocytes # (1.0-4.8) k/uL PT (9.0-12.0) sec INR (<1.2) APTT (22.0-30.0) sec ABG pO2 (83-108) mmHg ABG HCO3 (21-25) mmol/L ABG Total CO2 (19-24) mmol/L ABG O2 Saturation (94-97) % BUN (9-20) mg/dL Creatinine (0.66-1.25) mg/dL Glucose (74-99) mg/dL POC Glucose (mg/dL) 127 H 125 H 129 H (75-99) mg/dL Calcium (8.4-10.2) mg/dL Total Bilirubin (0.2-1.3) mg/dL AST (17-59) U/L ALT (21-72) U/L Total Protein (6.3-8.2) g/dL Albumin (3.5-5.0) g/dL 11/25/17 11/25/17 11/25/17 Range/Units 16:06 17:17 18:26 WBC (3.8-10.6) k/uL RBC (4.30-5.90) m/uL Hgb (13.0-17.5) gm/dL Hct (39.0-53.0) % RDW (11.5-15.5) % Plt Count (150-450) k/uL Neutrophils # (1.3-7.7) k/uL Lymphocytes # (1.0-4.8) k/uL PT (9.0-12.0) sec INR (<1.2) APTT (22.0-30.0) sec ABG pO2 (83-108) mmHg ABG HCO3 (21-25) mmol/L ABG Total CO2 (19-24) mmol/L ABG O2 Saturation (94-97) % BUN (9-20) mg/dL Creatinine (0.66-1.25) mg/dL Glucose (74-99) mg/dL POC Glucose (mg/dL) 152 H 149 H 149 H (75-99) mg/dL Calcium (8.4-10.2) mg/dL Total Bilirubin (0.2-1.3) mg/dL AST (17-59) U/L ALT (21-72) U/L Total Protein (6.3-8.2) g/dL Albumin (3.5-5.0) g/dL 0811/25/17 11/25/17 Range/Units 19:08 19:10 20:13 WBC (3.8-10.6) k/uL RBC (4.30-5.90) m/uL Hgb (13.0-17.5) gm/dL Hct (39.0-53.0) % RDW (11.5-15.5) % Plt Count (150-450) k/uL Neutrophils # (1.3-7.7) k/uL Lymphocytes # (1.0-4.8) k/uL PT (9.0-12.0) sec INR (<1.2) APTT (22.0-30.0) sec ABG pO2 (83-108) mmHg ABG HCO3 (21-25) mmol/L ABG Total CO2 (19-24) mmol/L ABG O2 Saturation (94-97) % BUN 116 H* (9-20) mg/dL Creatinine 2.20 H (0.66-1.25) mg/dL Glucose 137 H (74-99) mg/dL POC Glucose (mg/dL) 152 H 167 H (75-99) mg/dL Calcium 7.8 L (8.4-10.2) mg/dL Total Bilirubin 5.5 H (0.2-1.3) mg/dL AST 649 H (17-59) U/L ALT 484 H (21-72) U/L Total Protein 5.0 L (6.3-8.2) g/dL Albumin 2.5 L (3.5-5.0) g/dL 11/25/17 11/25/17 11/25/17 Range/Units 21:08 22:10 23:01 WBC (3.8-10.6) k/uL RBC (4.30-5.90) m/uL Hgb (13.0-17.5) gm/dL Hct (39.0-53.0) % RDW (11.5-15.5) % Plt Count (150-450) k/uL Neutrophils # (1.3-7.7) k/uL Lymphocytes # (1.0-4.8) k/uL PT (9.0-12.0) sec INR (<1.2) APTT (22.0-30.0) sec ABG pO2 (83-108) mmHg ABG HCO3 (21-25) mmol/L ABG Total CO2 (19-24) mmol/L ABG O2 Saturation (94-97) % BUN (9-20) mg/dL Creatinine (0.66-1.25) mg/dL Glucose (74-99) mg/dL POC Glucose (mg/dL) 167 H 156 H 143 H (75-99) mg/dL Calcium (8.4-10.2) mg/dL Total Bilirubin (0.2-1.3) mg/dL AST (17-59) U/L ALT (21-72) U/L Total Protein (6.3-8.2) g/dL Albumin (3.5-5.0) g/dL 11/26/17 11/26/17 11/26/17 Range/Units 00:24 02:13 03:02 WBC (3.8-10.6) k/uL RBC (4.30-5.90) m/uL Hgb (13.0-17.5) gm/dL Hct (39.0-53.0) % RDW (11.5-15.5) % Plt Count (150-450) k/uL Neutrophils # (1.3-7.7) k/uL Lymphocytes # (1.0-4.8) k/uL PT (9.0-12.0) sec INR (<1.2) APTT (22.0-30.0) sec ABG pO2 (83-108) mmHg ABG HCO3 (21-25) mmol/L ABG Total CO2 (19-24) mmol/L ABG O2 Saturation (94-97) % BUN (9-20) mg/dL Creatinine (0.66-1.25) mg/dL Glucose (74-99) mg/dL POC Glucose (mg/dL) 157 H 166 H 156 H (75-99) mg/dL Calcium (8.4-10.2) mg/dL Total Bilirubin (0.2-1.3) mg/dL AST (17-59) U/L ALT (21-72) U/L Total Protein (6.3-8.2) g/dL Albumin (3.5-5.0) g/dL 11/26/17 11/26/17 11/26/17 Range/Units 03:05 03:05 03:05 WBC 14.6 H (3.8-10.6) k/uL RBC 2.31 L (4.30-5.90) m/uL Hgb 7.0 L* (13.0-17.5) gm/dL Hct 20.6 L (39.0-53.0) % RDW 17.8 H (11.5-15.5) % Plt Count 67 L (150-450) k/uL Neutrophils # 12.3 H (1.3-7.7) k/uL Lymphocytes # 0.6 L (1.0-4.8) k/uL PT 15.5 H (9.0-12.0) sec INR 1.7 H (<1.2) APTT 32.0 H (22.0-30.0) sec ABG pO2 (83-108) mmHg ABG HCO3 (21-25) mmol/L ABG Total CO2 (19-24) mmol/L ABG O2 Saturation (94-97) % BUN 114 H* (9-20) mg/dL Creatinine 2.20 H (0.66-1.25) mg/dL Glucose 160 H (74-99) mg/dL POC Glucose (mg/dL) (75-99) mg/dL Calcium 7.7 L (8.4-10.2) mg/dL Total Bilirubin 5.6 H (0.2-1.3) mg/dL AST 514 H (17-59) U/L ALT 440 H (21-72) U/L Total Protein 4.9 L (6.3-8.2) g/dL Albumin 2.4 L (3.5-5.0) g/dL 11/26/17 11/26/17 11/26/17 Range/Units 05:08 05:55 07:14 WBC (3.8-10.6) k/uL RBC (4.30-5.90) m/uL Hgb (13.0-17.5) gm/dL Hct (39.0-53.0) % RDW (11.5-15.5) % Plt Count (150-450) k/uL Neutrophils # (1.3-7.7) k/uL Lymphocytes # (1.0-4.8) k/uL PT (9.0-12.0) sec INR (<1.2) APTT (22.0-30.0) sec ABG pO2 121 H (83-108) mmHg ABG HCO3 26 H (21-25) mmol/L ABG Total CO2 27 H (19-24) mmol/L ABG O2 Saturation 99.3 H (94-97) % BUN (9-20) mg/dL Creatinine (0.66-1.25) mg/dL Glucose (74-99) mg/dL POC Glucose (mg/dL) 193 H 191 H (75-99) mg/dL Calcium (8.4-10.2) mg/dL Total Bilirubin (0.2-1.3) mg/dL AST (17-59) U/L ALT (21-72) U/L Total Protein (6.3-8.2) g/dL Albumin (3.5-5.0) g/dL 11/26/17 11/26/17 Range/Units 08:21 09:37 WBC (3.8-10.6) k/uL RBC (4.30-5.90) m/uL Hgb (13.0-17.5) gm/dL Hct (39.0-53.0) % RDW (11.5-15.5) % Plt Count (150-450) k/uL Neutrophils # (1.3-7.7) k/uL Lymphocytes # (1.0-4.8) k/uL PT (9.0-12.0) sec INR (<1.2) APTT (22.0-30.0) sec ABG pO2 (83-108) mmHg ABG HCO3 (21-25) mmol/L ABG Total CO2 (19-24) mmol/L ABG O2 Saturation (94-97) % BUN (9-20) mg/dL Creatinine (0.66-1.25) mg/dL Glucose (74-99) mg/dL POC Glucose (mg/dL) 200 H 185 H (75-99) mg/dL Calcium (8.4-10.2) mg/dL Total Bilirubin (0.2-1.3) mg/dL AST (17-59) U/L ALT (21-72) U/L Total Protein (6.3-8.2) g/dL Albumin (3.5-5.0) g/dL Microbiology - Last 24 Hours (Table) 11/24/17 10:20 Urine Culture - Final Urine,Catheterized 11/24/17 10:25 Blood Culture - Preliminary Blood No Growth after 24 hours 11/24/17 10:51 Blood Culture - Preliminary Blood No Growth after 24 hours 11/24/17 20:30 Gram Stain - Preliminary Sputum Sputum Culture - Preliminary Assessment and Plan Plan: (1) Coronary artery disease and moderate mitral valve regurgitation Triple vessel disease noted on cardiac cath agent status post CABG and mitral valve repair on all 11/17/2017. Continue on aspirin, metoprolol. ICU community marketing manager Dr. Paul/Delonte on consult. Continue current management per cardio vascular surgery team (2) Ischemic cardiomyopathy Has impaired ejection fraction of 38%, along with congestive heart failure. (3) Congestive heart failure with cardiomyopathy Acute on chronic systolic and diastolic heart failure (4) Hyperlipidemia Patient currently not on statins (5) GI prophylaxis (6) DVT prophylaxis (7) Steal syndrome, subclavian Carotid Dopplers 11/10/2017 shows no carotid stenosis however there is to and fro flow within the right vertebral artery could reflect manifestation of subclavian steal physiology prior to with continuous flow reversal. Currently asymptomatic continue to monitor (8) Pulmonary hypertension PILAR on 11/10/2017, moderate pulmonary hypertension also shows intact atrial septum with no evidence of [id number] shunt physiology, unable to locate pressures for right ventricular systolic 9. Thrombocytopenia secondary to consumption. Fibrinogen ordered. Patient is off aspirin, Plavix and Arixtra. Consult with oncology appreciated. Recommendations for platelet transfusion if less than 50,000. 10. Anemia, secondary to a combination of acute blood loss and renal failure with drop in hemoglobin from 10-6.5. Patient is status post multiple blood products. 11. Acute kidney injury, acute tubular necrosis, oliguric secondary to hypotension, hypoperfusion. Consult with nephrology appreciated. Off Lasix drip. Status post IV bicarbonate and currently on a drip to repeat labs this afternoon. 12. Post op atrial fibrillation, expected outcome of surgery. Patient has been on amiodarone and Lopressor. 13. Liver transaminitis and coagulopathy secondary to shock liver oncology consult appreciated. Continue to monitor closely. Statin is on hold. 14. Depression, situational. Zoloft was subsequently discontinued. 15. Acute delirium secondary to acute illness. Patient is currently sedated. 16. Hyperglycemia without diabetes. Patient resumed on insulin drip. Hemoglobin A1c is 6.7. 17. Cardiorenal syndrome and cardiogenic shock requiring IV vasopressors. 18. Diarrhea with possible acute GI bleed with acute blood loss anemia. Fecal management system has been placed. Stool for occult blood is positive. C diff toxin is negative Discharge plan: To be determined Impression and plan of care have been directed as dictated by the signing physician. Amy Renteria nurse practitioner acting as scribe for signing physician.
[2017-11-26 16:10] LABS: Glucose,Whole Blood 145 mg/dL (75-99)
[2017-11-26 16:55] LABS: Glucose,Whole Blood 148 mg/dL (75-99)
[2017-11-26 18:02] LABS: Glucose,Whole Blood 156 mg/dL (75-99)
--- NOTE | 2017-11-26 18:42 | P.PN ---
Subjective Progress Note Date: 11/26/17 Principal diagnosis: Thrombocytopenia requiring Anticoagulation on ventilator, Labs appear to be stabilizing, INR 1.7. He is status Post line placement 11/24/17. He received FFP and Vitamin K prior to procedure. Stool for OB positive but no noticeable or apparent bloody stool or bleeding able to be identified. Objective - Vital Signs Vital signs: Vital Signs Temp 97.5 F L 11/26/17 16:00 Pulse 81 11/26/17 18:00 Resp 20 11/26/17 18:00 BP 119/54 11/24/17 06:00 Pulse Ox 100 11/26/17 18:00 Intake & Output 11/25/17 11/26/17 11/26/17 18:59 06:59 18:59 Intake Total 3175.748 6974.155 1061.860 Output Total 1640 1045 1010 Balance 251.023 922.155 51.860 Weight 84.1 kg 85.4 kg Intake: IV 308.6 874.6 209.2 Milrinone-D5W 4.6 50.6 55.2 Piperacillin-Tazobactam 3 100 50.0 .375 gm In Dextrose/Water 1 50ml.bag @ 12.5 mls/hr IVPB Q12HR [facility] Rx#: [id number] Pressure Bags 72 72 72 Sodium Chloride 0.9% 1, 630 70 000 ml @ 70 mls/hr IV . [id number] [facility] Rx#:[id number] Sodium Chloride 0.9% 500 60 ml @ 20 mls/hr IV .Q24H [facility] Rx#:[id number] Sodium Chloride 0.9% 99 72 72 12 ml @ 0.03 UNITS/MIN 9 mls /hr IV .Q11H7M [facility] with Vasopressin 20 unit Rx#: [id number] Intake, IV Titration 1322.423 534.555 336.660 Amount Insulin Regular 100 unit 12.607 31.102 37.036 In Sodium Chloride 0.9% 100 ml @ Per Protocol IV .Q0M [facility] Rx#:[id number] Milrinone-D5w Pmx 20 mg 100 In Dextrose/Water 1 100ml .bag @ 0.2 MCG/KG/MIN 4. 66 mls/hr IV .[id number] [facility] Rx#:[id number] Norepinephrine 16 mg In 200.950 166.120 127.495 Dextrose 5% in Water 250 ml @ Titrate IV .Q0M [facility] Rx#:[id number] Propofol 1,000 mg In 193.866 97.333 172.129 Empty Bag 1 bag @ Titrate IV .Q0M [facility] Rx#: [id number] Sodium Chloride 0.9% 1, 35 000 ml @ 70 mls/hr IV . [id number] [facility] Rx#:[id number] Sodium Chloride 0.9% 1, 630 140 000 ml @ 70 mls/hr IV . [id number] [facility] Rx#:[id number] Vancomycin 1,250 mg In 250 Sodium Chloride 0.9% 250 ml @ 125 mls/hr IVPB ONCE ONE Rx#:[id number] Tube Feeding 140 468 336 Other 120 90 180 Output: Chest Tube Drainage 210 170 120 left pleural 110 80 40 right pleural 100 90 80 Urine 1430 875 890 Other: Voiding Method Indwelling Catheter Indwelling Catheter Indwelling Catheter ABP, PAP, CO, CI - Last Documented Arterial Blood Pressure 134/49 Pulmonary Artery Pressure 40/15 Cardiac Output 5.0 Cardiac Index 2.7 - Constitutional General appearance: Present: no acute distress - Respiratory Respiratory: bilateral: CTA - Labs CBC & Chem 7: 11/26/17 03:05 11/26/17 03:05 Labs: Abnormal Lab Results - Last 24 Hours (Table) 11/25/17 11/25/17 11/25/17 Range/Units 19:08 19:10 20:13 WBC (3.8-10.6) k/uL RBC (4.30-5.90) m/uL Hgb (13.0-17.5) gm/dL Hct (39.0-53.0) % RDW (11.5-15.5) % Plt Count (150-450) k/uL Neutrophils # (1.3-7.7) k/uL Lymphocytes # (1.0-4.8) k/uL PT (9.0-12.0) sec INR (<1.2) APTT (22.0-30.0) sec ABG pO2 (83-108) mmHg ABG HCO3 (21-25) mmol/L ABG Total CO2 (19-24) mmol/L ABG O2 Saturation (94-97) % BUN 116 H* (9-20) mg/dL Creatinine 2.20 H (0.66-1.25) mg/dL Glucose 137 H (74-99) mg/dL POC Glucose (mg/dL) 152 H 167 H (75-99) mg/dL Calcium 7.8 L (8.4-10.2) mg/dL Total Bilirubin 5.5 H (0.2-1.3) mg/dL AST 649 H (17-59) U/L ALT 484 H (21-72) U/L Total Protein 5.0 L (6.3-8.2) g/dL Albumin 2.5 L (3.5-5.0) g/dL 11/25/17 11/25/17 11/25/17 Range/Units 21:08 22:10 23:01 WBC (3.8-10.6) k/uL RBC (4.30-5.90) m/uL Hgb (13.0-17.5) gm/dL Hct (39.0-53.0) % RDW (11.5-15.5) % Plt Count (150-450) k/uL Neutrophils # (1.3-7.7) k/uL Lymphocytes # (1.0-4.8) k/uL PT (9.0-12.0) sec INR (<1.2) APTT (22.0-30.0) sec ABG pO2 (83-108) mmHg ABG HCO3 (21-25) mmol/L ABG Total CO2 (19-24) mmol/L ABG O2 Saturation (94-97) % BUN (9-20) mg/dL Creatinine (0.66-1.25) mg/dL Glucose (74-99) mg/dL POC Glucose (mg/dL) 167 H 156 H 143 H (75-99) mg/dL Calcium (8.4-10.2) mg/dL Total Bilirubin (0.2-1.3) mg/dL AST (17-59) U/L ALT (21-72) U/L Total Protein (6.3-8.2) g/dL Albumin (3.5-5.0) g/dL 11/26/17 11/26/17 11/26/17 Range/Units 00:24 02:13 03:02 WBC (3.8-10.6) k/uL RBC (4.30-5.90) m/uL Hgb (13.0-17.5) gm/dL Hct (39.0-53.0) % RDW (11.5-15.5) % Plt Count (150-450) k/uL Neutrophils # (1.3-7.7) k/uL Lymphocytes # (1.0-4.8) k/uL PT (9.0-12.0) sec INR (<1.2) APTT (22.0-30.0) sec ABG pO2 (83-108) mmHg ABG HCO3 (21-25) mmol/L ABG Total CO2 (19-24) mmol/L ABG O2 Saturation (94-97) % BUN (9-20) mg/dL Creatinine (0.66-1.25) mg/dL Glucose (74-99) mg/dL POC Glucose (mg/dL) 157 H 166 H 156 H (75-99) mg/dL Calcium (8.4-10.2) mg/dL Total Bilirubin (0.2-1.3) mg/dL AST (17-59) U/L ALT (21-72) U/L Total Protein (6.3-8.2) g/dL Albumin (3.5-5.0) g/dL 11/26/17 11/26/17 11/26/17 Range/Units 03:05 03:05 03:05 WBC 14.6 H (3.8-10.6) k/uL RBC 2.31 L (4.30-5.90) m/uL Hgb 7.0 L* (13.0-17.5) gm/dL Hct 20.6 L (39.0-53.0) % RDW 17.8 H (11.5-15.5) % Plt Count 67 L (150-450) k/uL Neutrophils # 12.3 H (1.3-7.7) k/uL Lymphocytes # 0.6 L (1.0-4.8) k/uL PT 15.5 H (9.0-12.0) sec INR 1.7 H (<1.2) APTT 32.0 H (22.0-30.0) sec ABG pO2 (83-108) mmHg ABG HCO3 (21-25) mmol/L ABG Total CO2 (19-24) mmol/L ABG O2 Saturation (94-97) % BUN 114 H* (9-20) mg/dL Creatinine 2.20 H (0.66-1.25) mg/dL Glucose 160 H (74-99) mg/dL POC Glucose (mg/dL) (75-99) mg/dL Calcium 7.7 L (8.4-10.2) mg/dL Total Bilirubin 5.6 H (0.2-1.3) mg/dL AST 514 H (17-59) U/L ALT 440 H (21-72) U/L Total Protein 4.9 L (6.3-8.2) g/dL Albumin 2.4 L (3.5-5.0) g/dL 11/26/17 11/26/17 11/26/17 Range/Units 05:08 05:55 07:14 WBC (3.8-10.6) k/uL RBC (4.30-5.90) m/uL Hgb (13.0-17.5) gm/dL Hct (39.0-53.0) % RDW (11.5-15.5) % Plt Count (150-450) k/uL Neutrophils # (1.3-7.7) k/uL Lymphocytes # (1.0-4.8) k/uL PT (9.0-12.0) sec INR (<1.2) APTT (22.0-30.0) sec ABG pO2 121 H (83-108) mmHg ABG HCO3 26 H (21-25) mmol/L ABG Total CO2 27 H (19-24) mmol/L ABG O2 Saturation 99.3 H (94-97) % BUN (9-20) mg/dL Creatinine (0.66-1.25) mg/dL Glucose (74-99) mg/dL POC Glucose (mg/dL) 193 H 191 H (75-99) mg/dL Calcium (8.4-10.2) mg/dL Total Bilirubin (0.2-1.3) mg/dL AST (17-59) U/L ALT (21-72) U/L Total Protein (6.3-8.2) g/dL Albumin (3.5-5.0) g/dL 11/26/17 11/26/17 11/26/17 Range/Units 08:21 09:37 10:09 WBC (3.8-10.6) k/uL RBC (4.30-5.90) m/uL Hgb (13.0-17.5) gm/dL Hct (39.0-53.0) % RDW (11.5-15.5) % Plt Count (150-450) k/uL Neutrophils # (1.3-7.7) k/uL Lymphocytes # (1.0-4.8) k/uL PT (9.0-12.0) sec INR (<1.2) APTT (22.0-30.0) sec ABG pO2 (83-108) mmHg ABG HCO3 (21-25) mmol/L ABG Total CO2 (19-24) mmol/L ABG O2 Saturation (94-97) % BUN (9-20) mg/dL Creatinine (0.66-1.25) mg/dL Glucose (74-99) mg/dL POC Glucose (mg/dL) 200 H 185 H 175 H (75-99) mg/dL Calcium (8.4-10.2) mg/dL Total Bilirubin (0.2-1.3) mg/dL AST (17-59) U/L ALT (21-72) U/L Total Protein (6.3-8.2) g/dL Albumin (3.5-5.0) g/dL 11/26/17 11/26/17 11/26/17 Range/Units 10:59 11:59 13:06 WBC (3.8-10.6) k/uL RBC (4.30-5.90) m/uL Hgb (13.0-17.5) gm/dL Hct (39.0-53.0) % RDW (11.5-15.5) % Plt Count (150-450) k/uL Neutrophils # (1.3-7.7) k/uL Lymphocytes # (1.0-4.8) k/uL PT (9.0-12.0) sec INR (<1.2) APTT (22.0-30.0) sec ABG pO2 (83-108) mmHg ABG HCO3 (21-25) mmol/L ABG Total CO2 (19-24) mmol/L ABG O2 Saturation (94-97) % BUN (9-20) mg/dL Creatinine (0.66-1.25) mg/dL Glucose (74-99) mg/dL POC Glucose (mg/dL) 160 H 168 H 170 H (75-99) mg/dL Calcium (8.4-10.2) mg/dL Total Bilirubin (0.2-1.3) mg/dL AST (17-59) U/L ALT (21-72) U/L Total Protein (6.3-8.2) g/dL Albumin (3.5-5.0) g/dL 11/26/17 11/26/17 11/26/17 Range/Units 16:08 16:53 18:01 WBC (3.8-10.6) k/uL RBC (4.30-5.90) m/uL Hgb (13.0-17.5) gm/dL Hct (39.0-53.0) % RDW (11.5-15.5) % Plt Count (150-450) k/uL Neutrophils # (1.3-7.7) k/uL Lymphocytes # (1.0-4.8) k/uL PT (9.0-12.0) sec INR (<1.2) APTT (22.0-30.0) sec ABG pO2 (83-108) mmHg ABG HCO3 (21-25) mmol/L ABG Total CO2 (19-24) mmol/L ABG O2 Saturation (94-97) % BUN (9-20) mg/dL Creatinine (0.66-1.25) mg/dL Glucose (74-99) mg/dL POC Glucose (mg/dL) 145 H 148 H 156 H (75-99) mg/dL Calcium (8.4-10.2) mg/dL Total Bilirubin (0.2-1.3) mg/dL AST (17-59) U/L ALT (21-72) U/L Total Protein (6.3-8.2) g/dL Albumin (3.5-5.0) g/dL Microbiology - Last 24 Hours (Table) 11/24/17 20:30 Gram Stain - Preliminary Sputum Sputum Culture - Preliminary Gram Neg Bacilli 11/24/17 10:25 Blood Culture - Preliminary Blood No Growth after 48 hours 11/24/17 10:51 Blood Culture - Preliminary Blood No Growth after 48 hours 11/24/17 10:20 Urine Culture - Final Urine,Catheterized Assessment and Plan Plan: Assessment and Recommendations: 1. Thrombocytopenia: - Likely secondary to Shock Liver and Consumption, less likely Heparin exposure. - fibrinogen 500, not consistent with a picture of DIC - Daily CBC - Transfuse to attempt a platelet count of 50K, - plt 67 2. Prolonged INR/PT - coagulopathy - Worsening - Monitor Daily - INR = 1.7 - Vitamin K again today 11/26/17 2. Liver Transiminitis: - Likely secondary to shock liver. - No known history of underlying liver disease - Continue to monitor liver per management of primary team 3. Normocytic Anemia: - Monitor CBC, Transfuse for Hemoglobin less than 7 4. Mitral valve regurgitation, post mitral valve repair 5. Ischemic cardiomyopathy, with severe left ventricular systolic dysfunction, with significantly impaired preoperative physical ejection fraction 6. Diabetes mellitus type 2, currently on insulin drip 7. Acute Renal Failure 11/25/17 Discussed case with P[employer]INEER and RN today. SLow improvement overnight.
[2017-11-26 18:52] LABS: Glucose,Whole Blood 174 mg/dL (75-99)
[2017-11-26 19:57] LABS: Glucose,Whole Blood 162 mg/dL (75-99)
[2017-11-26] MEDS: MELATONIN 5 MG TABLET PO SCH (20:30)
[2017-11-26] MEDS: prednisoLONE ACETATE 1% OPHTH DROPS 5 ML BTL LEFT EYE SCH (20:30)
[2017-11-26] MEDS: ERYTHROMYCIN 5 MG/GM OPHTH OINT 3.5 GM TUBE LEFT EYE SCH (20:30)
[2017-11-26] MEDS: SENNOSIDES-DOCUSATE SODIUM 1 EACH TAB PO SCH (21:10)
[2017-11-26 21:11] LABS: Glucose,Whole Blood 149 mg/dL (75-99)
[2017-11-26 21:55] LABS: Glucose,Whole Blood 137 mg/dL (75-99)
[2017-11-26 23:08] LABS: Glucose,Whole Blood 129 mg/dL (75-99)
[2017-11-26 23:54] LABS: Glucose,Whole Blood 129 mg/dL (75-99)
[2017-11-27 01:13] LABS: Glucose,Whole Blood 142 mg/dL (75-99)
[2017-11-27 02:02] LABS: Glucose,Whole Blood 151 mg/dL (75-99)
[2017-11-27 02:47] LABS: Glucose,Whole Blood 136 mg/dL (75-99)
[2017-11-27] MEDS: SODIUM CHLORIDE 0.9% 99 ML with VASOPRESSIN 20 UNIT IV SCH ×2 (02:48)
[2017-11-27 04:18] LABS: Anisocytosis Slight; Basophils % (A) 0 %; Eosinophils # (A) 0.1 k/uL (0-0.7); Eosinophils % (A) 0 %; HCT 22.6 % (39.0-53.0); HGB 7.3 gm/dL (13.0-17.5); Hypochromasia Slight; Lymphocytes # (A) 0.4 k/uL (1.0-4.8); Lymphocytes % (A) 2 %; MCV 90.6 fL (80.0-100.0); Mean Platelet Volume 10.4; Monocytes # (A) 1.1 k/uL (0-1.0); Monocytes % (A) 6 %; Neutrophils % (A) 90 %; RDW 17.9 % (11.5-15.5); WBC 20.1 k/uL (3.8-10.6)
[2017-11-27 04:21] LABS: Platelet Count 79 k/uL (150-450)
[2017-11-27 04:21] LABS: Glucose,Whole Blood 197 mg/dL (75-99)
[2017-11-27] MEDS: MILRINONE-D5W PMX 20 MG in DEXTROSE/WATER 1 100ML.BAG IV SCH (04:22)
[2017-11-27 04:27] LABS: INR 1.4 (<1.2); Ionized Calcium 4.6 mg/dL (4.5-5.3); Partial Thromboplastin Time 31.6 sec (22.0-30.0); Prothrombin Time 13.1 sec (9.0-12.0)
[2017-11-27 04:35] LABS: Albumin 2.4 g/dL (3.5-5.0); Calcium 7.8 mg/dL (8.4-10.2); Magnesium 2.2 mg/dL (1.6-2.3); Phosphorus 4.7 mg/dL (2.5-4.5); Potassium 4.1 mmol/L (3.5-5.1); Total Bilirubin 5.6 mg/dL (0.2-1.3); Total Protein 5.1 g/dL (6.3-8.2)
[2017-11-27 04:38] LABS: ABG Base Excess -0.7 mmol/L; ABG HCO3 25 mmol/L (21-25); ABG Oxygen Saturation 99.2 % (94-97); ABG PCO2 43 mmHg (35-45); ABG PH 7.37 (7.35-7.45); ABG PO2 125 mmHg (83-108); ABG TCO2 26 mmol/L (19-24)
[2017-11-27 04:47] LABS: Glucose,Whole Blood 193 mg/dL (75-99)
[2017-11-27] MEDS: PROPOFOL 1,000 MG in EMPTY BAG 1 BAG IV SCH ×2 (05:34→20:54)
[2017-11-27 06:03] LABS: Glucose,Whole Blood 195 mg/dL (75-99)
[2017-11-27] MEDS: SODIUM CHLORIDE 0.9% 1,000 ML IV SCH ×2 (06:08→20:22)
[2017-11-27 06:54] LABS: Glucose,Whole Blood 172 mg/dL (75-99)
--- NOTE | 2017-11-27 06:56 | XR ---
EXAMINATION TYPE: XR chest 1V portable DATE OF EXAM: 11/27/2017 HISTORY: Tube placement. REFERENCE: Previous study dated 11/26/2017. FINDINGS: There has been a midline sternotomy. The patient is ET tube and NG tube remain in place, un changed in appearance. There is a left and right pleural drain in place. The heart is enlarged. There is bibasilar atelectasis. There are small, bilateral effusions. Intersti tial change has improved. IMPRESSION: CONTINUING POSTOPERATIVE CHANGE.
[2017-11-27] MEDS: IPRATROPIUM-ALBUTEROL 3 ML NEB INHALATION SCH ×4 (07:40→19:11)
[2017-11-27] MEDS ORDERED: CALCIUM CHLORIDE 1,000 MG in SODIUM CHLORIDE 0.9% 100 ML IVPB STA (07:49)
[2017-11-27 08:11] LABS: Glucose,Whole Blood 167 mg/dL (75-99)
[2017-11-27] MEDS: MIDODRINE 5 MG TAB PO SCH ×3 (08:28→16:38)
[2017-11-27] MEDS: ASCORBIC ACID 500 MG TAB PO SCH ×2 (08:28→16:38)
[2017-11-27] MEDS: AMIODARONE 200 MG TAB PO SCH ×2 (08:29→20:21)
[2017-11-27] MEDS: PANTOPRAZOLE 40 MG/10 ML VIAL IVP SCH (08:29)
[2017-11-27] MEDS: ASPIRIN 81 MG PO SCH (08:29)
[2017-11-27] MEDS: SERTRALINE 25 MG TAB PO SCH (08:29)
[2017-11-27] MEDS: METOPROLOL TARTRATE 12.5 MG TAB PO SCH ×2 (08:29→20:23)
[2017-11-27] MEDS: CLOPIDOGREL 75 MG TAB PO SCH (08:29)
[2017-11-27] MEDS: HEPARIN SODIUM,PORCINE 5,000 UNIT/ML 1 ML VIAL SQ SCH ×3 (08:29→23:20)
[2017-11-27] MEDS: CHLORHEXIDINE GLUCONATE 15 ML CUP MUCOUS MEM SCH ×2 (08:29→20:22)
[2017-11-27] MEDS: FERROUS SULFATE 325 MG TAB PO SCH ×2 (08:52→16:38)
--- NOTE | 2017-11-27 08:52 | P.PN ---
Subjective Progress Note Date: 11/27/17 Principal diagnosis: Triple-vessel coronary artery disease. Severe ischemic cardiomyopathy. Moderate mitral valve regurgitation. Mild tricuspid valve regurgitation. Diabetes mellitus with preoperative hemoglobin A1c 6.7%. Hyperlipidemia. Moderate to severe restrictive lung disease with preoperative FEV1 43% of predicted. Evidence of diffuse calcific coronary artery disease. 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 Previous tobacco dependence. POD #11 placement of preoperative intra-aortic balloon pump POD #10 quadruple coronary artery bypass grafting using the left internal mammary artery to the left anterior descending artery, reverse saphenous vein graft from the aorta to the diagonal artery, reverse saphenous vein graft from the aorta to the first obtuse marginal artery, reverse saphenous vein graft from the aorta to the posterior descending artery. Mitral valve repair using a complete ring annuloplasty with a 30 mm Kapoor IMR ring. Exclusion of the left atrial appendage using a 35 mm Atriclip. Intraoperative transesophageal echocardiogram and epi-aortic scanning. Intraoperative graft flow measurements using the [employer] system. Post operative normocytic, normochromic anemia, an expected outcome of surgery. Postoperative thrombocytopenia, an expected outcome of surgery. Postoperative atrial fibrillation, an expected outcome of surgery. Postoperative elevated transaminases, an unexpected outcome of surgery, likely secondary to low flow state post surgery. Postoperative acute kidney injury, an unexpected outcome of surgery, likely secondary to low flow state post surgery. Postoperative acute metabolic acidosis, lactic acidosis, reintubation, an unexpected outcome. Postoperative cardiogenic shock, an unexpected outcome. The patient remains intubated, sedation on hold. He is not currently withdrawing to painful stimuli. He remains on Primacor at 0.2 mcg/kg/min, levo currently at 10 mcg/kg, vaso @ 0.02 units/min and insulin drip. CVP has ranged from 12-14. His urine output ranged from 50-120 mL/h overnight. His BUN this morning is 119, creatinine is down to 1.9. Liver enzymes continue to improve. Hemaglobin this morning is 7.3 from 7.0. White blood cell count has increased from 20.1 from 14.6, currently on zosyn with preliminary sputum culture growing gram negative bacilli, platelet count has increased. Arterial blood gases are stable. He is currently in afib with heart rate in the low 100s. Cortisol level 29, was > 123 on 11/23. He is tolerating tube feedings. He remains critical but his clinical picture shows some improvement. Objective - Vital Signs Vital signs: Vital Signs Temp 98.1 F 11/27/17 04:00 Pulse 108 H 11/27/17 08:18 Resp 20 11/27/17 07:00 BP 96/53 11/26/17 19:00 Pulse Ox 100 11/27/17 07:00 Intake & Output 11/26/17 11/27/17 11/27/17 18:59 06:59 18:59 Intake Total 0626.095 2580.219 23.19 Output Total 1010 1185 Balance 58.664 937.219 23.19 Weight 85.4 kg 85.9 kg Intake: IV 209.2 977.8 Milrinone-D5W 55.2 59.8 Pressure Bags 72 78 Sodium Chloride 0.9% 1, 70 000 ml @ 70 mls/hr IV . [id number] JANNA Rx#:[id number] Sodium Chloride 0.9% 1, 840 000 ml @ 70 mls/hr IV . [id number] JANNA Rx#:[id number] Sodium Chloride 0.9% 99 12 ml @ 0.03 UNITS/MIN 9 mls /hr IV .[id number] JANNA with Vasopressin 20 unit Rx#: [id number] Intake, IV Titration 343.464 340.419 23.19 Amount Insulin Regular 100 unit 43.840 29.245 In Sodium Chloride 0.9% 100 ml @ Per Protocol IV .Q0M JANNA Rx#:[id number] Milrinone-D5w Pmx 20 mg 100 In Dextrose/Water 1 100ml .bag @ 0.2 MCG/KG/MIN 4. 66 mls/hr IV .[id number] JANNA Rx#:[id number] Norepinephrine 16 mg In 127.495 86.928 Dextrose 5% in Water 250 ml @ Titrate IV .Q0M JANNA Rx#:[id number] Propofol 1,000 mg In 172.129 124.246 23.19 Empty Bag 1 bag @ Titrate IV .Q0M JANNA Rx#: [id number] Tube Feeding 336 714 Other 180 90 Output: Chest Tube Drainage 120 290 left pleural 40 140 right pleural 80 150 Urine 890 895 Other: Voiding Method Indwelling Catheter Indwelling Catheter ABP, PAP, CO, CI - Last Documented Arterial Blood Pressure 115/50 Pulmonary Artery Pressure 40/15 Cardiac Output 5.0 Cardiac Index 2.7 - Constitutional Constitutional Comment(s): Remains sedated on mechanical ventilation. General appearance: Present: no acute distress - Respiratory Details: Lungs sounds diminished bilaterally. Respirations even, nonlabored on mechanical ventilation. Current ventilator settings assist control mode, FiO2 35%, tidal volume 450, respiratory rate 14, PEEP 5. 8.0 ET tube present, 25 at the lip. Left pleural chest tube to continuous wall suction, 160 mL serosanguineous drainage in the last 12 hours, 200 mL in 24 hours. Right pleural chest tube to continuous wall suction, 140 mL serosanguineous drainage in the last 12 hours, 450 mL in 24 hours. No air leaks present. - Cardiovascular Details: S1, S2 present. Irregular rate and rhythm, atrial fibrillation on telemetry. Sternum stable. A/V epicardial pacemaker wires present, grounded. Palpable peripheral pulses bilaterally. Bilateral lower extremity, scrotal edema present. Right radial arterial line, left brachial PICC line, left internal jugular triple-lumen central line present. CVP ranging from 12-14. Levo being titrated as needed to keep MAP > 65, currently at 10 mcg/kg, vasopressin currently infusing and 0.02 units/min, Primacor currently at 0.02 mcg/kg/min. Heart hugger, antiembolism stockings, SCDs present. - Gastrointestinal Gastrointestinal Comment(s): Abdomen soft, nontender, nondistended. Active bowel sounds present 4 quadrants. OG tube present, vital tube feedings infusing at 42 mL/h with minimal residual per nursing. Fecal management system present, yellowish brown liquid stool, occult blood positive, C. diff negative. - Genitourinary Genitourinary Comment(s): Fong present draining clear yellow urine. Output 50-120 mL/h overnight without diuretics. - Integumentary Integumentary Comment(s): Skin warm and dry, right great toe with blue spot likely from high-dose levo. Sternal incision well approximated and covered with dry intact dressing. Left lower extremity EVH site well approximated. - Neurologic Neurologic Comment(s): Sedation turned off to assess mental status. Patient not following commands or withdrawing from painful stimuli at this point. - Allied health notes Allied health notes reviewed: nursing - Labs CBC & Chem 7: 11/27/17 04:05 11/27/17 04:05 Labs: Abnormal Lab Results - Last 24 Hours (Table) 11/26/17 11/26/17 11/26/17 Range/Units 09:37 10:09 10:59 WBC (3.8-10.6) k/uL RBC (4.30-5.90) m/uL Hgb (13.0-17.5) gm/dL Hct (39.0-53.0) % RDW (11.5-15.5) % Plt Count (150-450) k/uL Neutrophils # (1.3-7.7) k/uL Lymphocytes # (1.0-4.8) k/uL Monocytes # (0-1.0) k/uL PT (9.0-12.0) sec INR (<1.2) APTT (22.0-30.0) sec ABG pO2 (83-108) mmHg ABG Total CO2 (19-24) mmol/L ABG O2 Saturation (94-97) % Chloride (98-107) mmol/L BUN (9-20) mg/dL Creatinine (0.66-1.25) mg/dL Glucose (74-99) mg/dL POC Glucose (mg/dL) 185 H 175 H 160 H (75-99) mg/dL Calcium (8.4-10.2) mg/dL Phosphorus (2.5-4.5) mg/dL Total Bilirubin (0.2-1.3) mg/dL AST (17-59) U/L ALT (21-72) U/L Alkaline Phosphatase (38-126) U/L Total Protein (6.3-8.2) g/dL Albumin (3.5-5.0) g/dL 11/26/17 11/26/17 11/26/17 Range/Units 11:59 13:06 16:08 WBC (3.8-10.6) k/uL RBC (4.30-5.90) m/uL Hgb (13.0-17.5) gm/dL Hct (39.0-53.0) % RDW (11.5-15.5) % Plt Count (150-450) k/uL Neutrophils # (1.3-7.7) k/uL Lymphocytes # (1.0-4.8) k/uL Monocytes # (0-1.0) k/uL PT (9.0-12.0) sec INR (<1.2) APTT (22.0-30.0) sec ABG pO2 (83-108) mmHg ABG Total CO2 (19-24) mmol/L ABG O2 Saturation (94-97) % Chloride (98-107) mmol/L BUN (9-20) mg/dL Creatinine (0.66-1.25) mg/dL Glucose (74-99) mg/dL POC Glucose (mg/dL) 168 H 170 H 145 H (75-99) mg/dL Calcium (8.4-10.2) mg/dL Phosphorus (2.5-4.5) mg/dL Total Bilirubin (0.2-1.3) mg/dL AST (17-59) U/L ALT (21-72) U/L Alkaline Phosphatase (38-126) U/L Total Protein (6.3-8.2) g/dL Albumin (3.5-5.0) g/dL 11/26/17 11/26/17 11/26/17 Range/Units 16:53 18:01 18:50 WBC (3.8-10.6) k/uL RBC (4.30-5.90) m/uL Hgb (13.0-17.5) gm/dL Hct (39.0-53.0) % RDW (11.5-15.5) % Plt Count (150-450) k/uL Neutrophils # (1.3-7.7) k/uL Lymphocytes # (1.0-4.8) k/uL Monocytes # (0-1.0) k/uL PT (9.0-12.0) sec INR (<1.2) APTT (22.0-30.0) sec ABG pO2 (83-108) mmHg ABG Total CO2 (19-24) mmol/L ABG O2 Saturation (94-97) % Chloride (98-107) mmol/L BUN (9-20) mg/dL Creatinine (0.66-1.25) mg/dL Glucose (74-99) mg/dL POC Glucose (mg/dL) 148 H 156 H 174 H (75-99) mg/dL Calcium (8.4-10.2) mg/dL Phosphorus (2.5-4.5) mg/dL Total Bilirubin (0.2-1.3) mg/dL AST (17-59) U/L ALT (21-72) U/L Alkaline Phosphatase (38-126) U/L Total Protein (6.3-8.2) g/dL Albumin (3.5-5.0) g/dL 11/26/17 11/26/17 11/26/17 Range/Units 19:55 21:08 21:53 WBC (3.8-10.6) k/uL RBC (4.30-5.90) m/uL Hgb (13.0-17.5) gm/dL Hct (39.0-53.0) % RDW (11.5-15.5) % Plt Count (150-450) k/uL Neutrophils # (1.3-7.7) k/uL Lymphocytes # (1.0-4.8) k/uL Monocytes # (0-1.0) k/uL PT (9.0-12.0) sec INR (<1.2) APTT (22.0-30.0) sec ABG pO2 (83-108) mmHg ABG Total CO2 (19-24) mmol/L ABG O2 Saturation (94-97) % Chloride (98-107) mmol/L BUN (9-20) mg/dL Creatinine (0.66-1.25) mg/dL Glucose (74-99) mg/dL POC Glucose (mg/dL) 162 H 149 H 137 H (75-99) mg/dL Calcium (8.4-10.2) mg/dL Phosphorus (2.5-4.5) mg/dL Total Bilirubin (0.2-1.3) mg/dL AST (17-59) U/L ALT (21-72) U/L Alkaline Phosphatase (38-126) U/L Total Protein (6.3-8.2) g/dL Albumin (3.5-5.0) g/dL 11/26/17 11/26/17 11/27/17 Range/Units 23:06 23:53 01:08 WBC (3.8-10.6) k/uL RBC (4.30-5.90) m/uL Hgb (13.0-17.5) gm/dL Hct (39.0-53.0) % RDW (11.5-15.5) % Plt Count (150-450) k/uL Neutrophils # (1.3-7.7) k/uL Lymphocytes # (1.0-4.8) k/uL Monocytes # (0-1.0) k/uL PT (9.0-12.0) sec INR (<1.2) APTT (22.0-30.0) sec ABG pO2 (83-108) mmHg ABG Total CO2 (19-24) mmol/L ABG O2 Saturation (94-97) % Chloride (98-107) mmol/L BUN (9-20) mg/dL Creatinine (0.66-1.25) mg/dL Glucose (74-99) mg/dL POC Glucose (mg/dL) 129 H 129 H 142 H (75-99) mg/dL Calcium (8.4-10.2) mg/dL Phosphorus (2.5-4.5) mg/dL Total Bilirubin (0.2-1.3) mg/dL AST (17-59) U/L ALT (21-72) U/L Alkaline Phosphatase (38-126) U/L Total Protein (6.3-8.2) g/dL Albumin (3.5-5.0) g/dL 11/27/17 11/27/17 11/27/17 Range/Units 01:59 02:45 04:05 WBC 20.1 H (3.8-10.6) k/uL RBC 2.50 L (4.30-5.90) m/uL Hgb 7.3 L (13.0-17.5) gm/dL Hct 22.6 L (39.0-53.0) % RDW 17.9 H (11.5-15.5) % Plt Count 79 L (150-450) k/uL Neutrophils # 18.0 H (1.3-7.7) k/uL Lymphocytes # 0.4 L (1.0-4.8) k/uL Monocytes # 1.1 H (0-1.0) k/uL PT (9.0-12.0) sec INR (<1.2) APTT (22.0-30.0) sec ABG pO2 (83-108) mmHg ABG Total CO2 (19-24) mmol/L ABG O2 Saturation (94-97) % Chloride (98-107) mmol/L BUN (9-20) mg/dL Creatinine (0.66-1.25) mg/dL Glucose (74-99) mg/dL POC Glucose (mg/dL) 151 H 136 H (75-99) mg/dL Calcium (8.4-10.2) mg/dL Phosphorus (2.5-4.5) mg/dL Total Bilirubin (0.2-1.3) mg/dL AST (17-59) U/L ALT (21-72) U/L Alkaline Phosphatase (38-126) U/L Total Protein (6.3-8.2) g/dL Albumin (3.5-5.0) g/dL 11/27/17 11/27/17 11/27/17 Range/Units 04:05 04:05 04:19 WBC (3.8-10.6) k/uL RBC (4.30-5.90) m/uL Hgb (13.0-17.5) gm/dL Hct (39.0-53.0) % RDW (11.5-15.5) % Plt Count (150-450) k/uL Neutrophils # (1.3-7.7) k/uL Lymphocytes # (1.0-4.8) k/uL Monocytes # (0-1.0) k/uL PT 13.1 H (9.0-12.0) sec INR 1.4 H (<1.2) APTT 31.6 H (22.0-30.0) sec ABG pO2 (83-108) mmHg ABG Total CO2 (19-24) mmol/L ABG O2 Saturation (94-97) % Chloride 108 H (98-107) mmol/L BUN 119 H* (9-20) mg/dL Creatinine 1.90 H (0.66-1.25) mg/dL Glucose 165 H (74-99) mg/dL POC Glucose (mg/dL) 197 H (75-99) mg/dL Calcium 7.8 L (8.4-10.2) mg/dL Phosphorus 4.7 H (2.5-4.5) mg/dL Total Bilirubin 5.6 H (0.2-1.3) mg/dL AST 285 H (17-59) U/L ALT 357 H (21-72) U/L Alkaline Phosphatase 137 H (38-126) U/L Total Protein 5.1 L (6.3-8.2) g/dL Albumin 2.4 L (3.5-5.0) g/dL 11/27/17 11/27/17 11/27/17 Range/Units 04:36 04:45 06:00 WBC (3.8-10.6) k/uL RBC (4.30-5.90) m/uL Hgb (13.0-17.5) gm/dL Hct (39.0-53.0) % RDW (11.5-15.5) % Plt Count (150-450) k/uL Neutrophils # (1.3-7.7) k/uL Lymphocytes # (1.0-4.8) k/uL Monocytes # (0-1.0) k/uL PT (9.0-12.0) sec INR (<1.2) APTT (22.0-30.0) sec ABG pO2 125 H (83-108) mmHg ABG Total CO2 26 H (19-24) mmol/L ABG O2 Saturation 99.2 H (94-97) % Chloride (98-107) mmol/L BUN (9-20) mg/dL Creatinine (0.66-1.25) mg/dL Glucose (74-99) mg/dL POC Glucose (mg/dL) 193 H 195 H (75-99) mg/dL Calcium (8.4-10.2) mg/dL Phosphorus (2.5-4.5) mg/dL Total Bilirubin (0.2-1.3) mg/dL AST (17-59) U/L ALT (21-72) U/L Alkaline Phosphatase (38-126) U/L Total Protein (6.3-8.2) g/dL Albumin (3.5-5.0) g/dL 11/27/17 11/27/17 Range/Units 06:50 08:10 WBC (3.8-10.6) k/uL RBC (4.30-5.90) m/uL Hgb (13.0-17.5) gm/dL Hct (39.0-53.0) % RDW (11.5-15.5) % Plt Count (150-450) k/uL Neutrophils # (1.3-7.7) k/uL Lymphocytes # (1.0-4.8) k/uL Monocytes # (0-1.0) k/uL PT (9.0-12.0) sec INR (<1.2) APTT (22.0-30.0) sec ABG pO2 (83-108) mmHg ABG Total CO2 (19-24) mmol/L ABG O2 Saturation (94-97) % Chloride (98-107) mmol/L BUN (9-20) mg/dL Creatinine (0.66-1.25) mg/dL Glucose (74-99) mg/dL POC Glucose (mg/dL) 172 H 167 H (75-99) mg/dL Calcium (8.4-10.2) mg/dL Phosphorus (2.5-4.5) mg/dL Total Bilirubin (0.2-1.3) mg/dL AST (17-59) U/L ALT (21-72) U/L Alkaline Phosphatase (38-126) U/L Total Protein (6.3-8.2) g/dL Albumin (3.5-5.0) g/dL Microbiology - Last 24 Hours (Table) 11/24/17 20:30 Gram Stain - Preliminary Sputum Sputum Culture - Preliminary Gram Neg Bacilli 11/24/17 10:25 Blood Culture - Preliminary Blood No Growth after 48 hours 11/24/17 10:51 Blood Culture - Preliminary Blood No Growth after 48 hours - Imaging and Cardiology Chest x-ray: report reviewed, image reviewed Assessment and Plan (1) Congestive heart failure with cardiomyopathy Current Visit: Yes Status: Chronic Code(s): I50.9 - HEART FAILURE, UNSPECIFIED; I42.9 - CARDIOMYOPATHY, UNSPECIFIED SNOMED Code(s): 95560868 (2) Ischemic cardiomyopathy Current Visit: Yes Status: Chronic Code(s): I25.5 - ISCHEMIC CARDIOMYOPATHY SNOMED Code(s): 357297408 (3) Coronary artery disease Current Visit: Yes Status: Chronic Code(s): I25.10 - ATHSCL HEART DISEASE OF [place] CORONARY ARTERY W/O ANG PCTRS SNOMED Code(s): 86084655 (4) Diabetes mellitus Current Visit: Yes Status: Chronic Code(s): E11.9 - TYPE 2 DIABETES MELLITUS WITHOUT COMPLICATIONS SNOMED Code(s): 24443579 (5) Hyperlipidemia Current Visit: Yes Status: Chronic Code(s): E78.5 - HYPERLIPIDEMIA, UNSPECIFIED SNOMED Code(s): 56645419 (6) Mitral regurgitation Current Visit: Yes Status: Chronic Code(s): I34.0 - NONRHEUMATIC MITRAL ( VALVE) INSUFFICIENCY SNOMED Code(s): 20408207 (7) History of myocardial infarction Current Visit: No Status: Resolved Code(s): I25.2 - OLD MYOCARDIAL INFARCTION SNOMED Code(s): 927748368 (8) Tobacco dependence in remission Current Visit: No Status: Resolved Code(s): F17.201 - NICOTINE DEPENDENCE, UNSPECIFIED, IN REMISSION SNOMED Code(s): 143984534 Plan: 1. Continue low-dose aspirin, Plavix, subcu heparin. Patient received vitamin K yesterday with decrease in INR. Monitor patient for bleeding. 2. Continue beta michelle. Will increase beta michelle when able. RN instructed to give despite pressor use. 3. Statin discontinued secondary to elevated transaminases. Will restart when transaminases return to normal. 4. Continue amiodarone for A. fib prophylaxis. Will decrease to 200 mg daily on 11/30/17. 5. Wean levo as tolerated. Continue Primacor at 0.2 mcg/kg/min. Wean vasopressin as able. Goal to keep mean arterial pressure greater than 65. 6. Calcium chloride IV ordered. 7. Continue tube feedings. Monitor for gastric residual. 8. No nephrotoxic, hepatotoxic agents. 9. Continue IV fluids per nephrology. Likely will decrease today per nephrology note. 10. Keep Fong catheter for strict accurate intake and output. Change out Fong catheter. 11. Likely will discontinue chest tube soon. 12. Ventilator management, bronchodilators per pulmonology. 13. Sedation holiday daily to assess neurological status. 14. Will monitor daily labs and x-rays. 15. Agree with Zosyn per pulmonology, preliminary sputum culture with gram- negative bacilli. Blood culture negative 48 hours, urine culture negative. 16. Pain control with current medication regimen. 17. GI/DVT prophylaxis. 18. C. diff negative, occult blood positive, will continue to monitor. 19. Diabetic management per primary care service. Insulin drip restarted. 20. Continued recommendations based on patient's progress. Time with Patient: Greater than 30
[2017-11-27 08:57] LABS: Glucose,Whole Blood 202 mg/dL (75-99)
--- NOTE | 2017-11-27 09:43 | P.PN ---
Subjective Patient is seen in follow-up for acute kidney injury. Creatinine was greater than 3 on admission and is down to 1.9 today. Patient underwent CABG and mitral valve repair this admission. Ejection fraction is 30-35%. Hemoglobin 7.3 today. He is currently on 10 mics of Levophed. Also maintained on tube feeds. Propofol has been discontinued. Vital signs are stable. General: The patient appeared well nourished and normally developed. HEENT: Head exam is unremarkable. Neck is without jugular venous distension. LUNGS: Breath sounds decreased. HEART: Rate and Rhythm are regular. First and second heart sounds normal. No murmurs, rubs or gallops. ABDOMEN: Abdominal exam reveals normal bowel sounds. Non-tender and non- distended. No evidence of peritonitis. EXTREMITITES: Trace edema. Objective - Vital Signs Vital signs: Vital Signs Temp 98.1 F 11/27/17 04:00 Pulse 108 H 11/27/17 08:18 Resp 20 11/27/17 07:00 BP 96/53 11/26/17 19:00 Pulse Ox 100 11/27/17 07:00 Intake & Output 11/26/17 11/27/17 11/27/17 18:59 06:59 18:59 Intake Total 6494.429 8519.219 23.19 Output Total 1010 1185 Balance 58.664 937.219 23.19 Weight 85.4 kg 85.9 kg Intake: IV 209.2 977.8 Milrinone-D5W 55.2 59.8 Pressure Bags 72 78 Sodium Chloride 0.9% 1, 70 000 ml @ 70 mls/hr IV . [id number] JANNA Rx#:[id number] Sodium Chloride 0.9% 1, 840 000 ml @ 70 mls/hr IV . [id number] JANNA Rx#:[id number] Sodium Chloride 0.9% 99 12 ml @ 0.03 UNITS/MIN 9 mls /hr IV .[id number] JANNA with Vasopressin 20 unit Rx#: [id number] Intake, IV Titration 343.464 340.419 23.19 Amount Insulin Regular 100 unit 43.840 29.245 In Sodium Chloride 0.9% 100 ml @ Per Protocol IV .Q0M JANNA Rx#:[id number] Milrinone-D5w Pmx 20 mg 100 In Dextrose/Water 1 100ml .bag @ 0.2 MCG/KG/MIN 4. 66 mls/hr IV .[id number] JANNA Rx#:[id number] Norepinephrine 16 mg In 127.495 86.928 Dextrose 5% in Water 250 ml @ Titrate IV .Q0M JANNA Rx#:[id number] Propofol 1,000 mg In 172.129 124.246 23.19 Empty Bag 1 bag @ Titrate IV .Q0M JANNA Rx#: [id number] Tube Feeding 336 714 Other 180 90 Output: Chest Tube Drainage 120 290 left pleural 40 140 right pleural 80 150 Urine 890 895 Other: Voiding Method Indwelling Catheter Indwelling Catheter ABP, PAP, CO, CI - Last Documented Arterial Blood Pressure 115/50 Pulmonary Artery Pressure 40/15 Cardiac Output 5.0 Cardiac Index 2.7 - Labs CBC & Chem 7: 11/27/17 04:05 11/27/17 04:05 Labs: Abnormal Lab Results - Last 24 Hours (Table) 11/26/17 11/26/17 11/26/17 Range/Units 09:37 10:09 10:59 WBC (3.8-10.6) k/uL RBC (4.30-5.90) m/uL Hgb (13.0-17.5) gm/dL Hct (39.0-53.0) % RDW (11.5-15.5) % Plt Count (150-450) k/uL Neutrophils # (1.3-7.7) k/uL Lymphocytes # (1.0-4.8) k/uL Monocytes # (0-1.0) k/uL PT (9.0-12.0) sec INR (<1.2) APTT (22.0-30.0) sec ABG pO2 (83-108) mmHg ABG Total CO2 (19-24) mmol/L ABG O2 Saturation (94-97) % Chloride (98-107) mmol/L BUN (9-20) mg/dL Creatinine (0.66-1.25) mg/dL Glucose (74-99) mg/dL POC Glucose (mg/dL) 185 H 175 H 160 H (75-99) mg/dL Calcium (8.4-10.2) mg/dL Phosphorus (2.5-4.5) mg/dL Total Bilirubin (0.2-1.3) mg/dL AST (17-59) U/L ALT (21-72) U/L Alkaline Phosphatase (38-126) U/L Total Protein (6.3-8.2) g/dL Albumin (3.5-5.0) g/dL 11/26/17 11/26/17 11/26/17 Range/Units 11:59 13:06 16:08 WBC (3.8-10.6) k/uL RBC (4.30-5.90) m/uL Hgb (13.0-17.5) gm/dL Hct (39.0-53.0) % RDW (11.5-15.5) % Plt Count (150-450) k/uL Neutrophils # (1.3-7.7) k/uL Lymphocytes # (1.0-4.8) k/uL Monocytes # (0-1.0) k/uL PT (9.0-12.0) sec INR (<1.2) APTT (22.0-30.0) sec ABG pO2 (83-108) mmHg ABG Total CO2 (19-24) mmol/L ABG O2 Saturation (94-97) % Chloride (98-107) mmol/L BUN (9-20) mg/dL Creatinine (0.66-1.25) mg/dL Glucose (74-99) mg/dL POC Glucose (mg/dL) 168 H 170 H 145 H (75-99) mg/dL Calcium (8.4-10.2) mg/dL Phosphorus (2.5-4.5) mg/dL Total Bilirubin (0.2-1.3) mg/dL AST (17-59) U/L ALT (21-72) U/L Alkaline Phosphatase (38-126) U/L Total Protein (6.3-8.2) g/dL Albumin (3.5-5.0) g/dL 11/26/17 11/26/17 11/26/17 Range/Units 16:53 18:01 18:50 WBC (3.8-10.6) k/uL RBC (4.30-5.90) m/uL Hgb (13.0-17.5) gm/dL Hct (39.0-53.0) % RDW (11.5-15.5) % Plt Count (150-450) k/uL Neutrophils # (1.3-7.7) k/uL Lymphocytes # (1.0-4.8) k/uL Monocytes # (0-1.0) k/uL PT (9.0-12.0) sec INR (<1.2) APTT (22.0-30.0) sec ABG pO2 (83-108) mmHg ABG Total CO2 (19-24) mmol/L ABG O2 Saturation (94-97) % Chloride (98-107) mmol/L BUN (9-20) mg/dL Creatinine (0.66-1.25) mg/dL Glucose (74-99) mg/dL POC Glucose (mg/dL) 148 H 156 H 174 H (75-99) mg/dL Calcium (8.4-10.2) mg/dL Phosphorus (2.5-4.5) mg/dL Total Bilirubin (0.2-1.3) mg/dL AST (17-59) U/L ALT (21-72) U/L Alkaline Phosphatase (38-126) U/L Total Protein (6.3-8.2) g/dL Albumin (3.5-5.0) g/dL 11/26/17 11/26/17 11/26/17 Range/Units 19:55 21:08 21:53 WBC (3.8-10.6) k/uL RBC (4.30-5.90) m/uL Hgb (13.0-17.5) gm/dL Hct (39.0-53.0) % RDW (11.5-15.5) % Plt Count (150-450) k/uL Neutrophils # (1.3-7.7) k/uL Lymphocytes # (1.0-4.8) k/uL Monocytes # (0-1.0) k/uL PT (9.0-12.0) sec INR (<1.2) APTT (22.0-30.0) sec ABG pO2 (83-108) mmHg ABG Total CO2 (19-24) mmol/L ABG O2 Saturation (94-97) % Chloride (98-107) mmol/L BUN (9-20) mg/dL Creatinine (0.66-1.25) mg/dL Glucose (74-99) mg/dL POC Glucose (mg/dL) 162 H 149 H 137 H (75-99) mg/dL Calcium (8.4-10.2) mg/dL Phosphorus (2.5-4.5) mg/dL Total Bilirubin (0.2-1.3) mg/dL AST (17-59) U/L ALT (21-72) U/L Alkaline Phosphatase (38-126) U/L Total Protein (6.3-8.2) g/dL Albumin (3.5-5.0) g/dL 11/26/17 11/26/17 11/27/17 Range/Units 23:06 23:53 01:08 WBC (3.8-10.6) k/uL RBC (4.30-5.90) m/uL Hgb (13.0-17.5) gm/dL Hct (39.0-53.0) % RDW (11.5-15.5) % Plt Count (150-450) k/uL Neutrophils # (1.3-7.7) k/uL Lymphocytes # (1.0-4.8) k/uL Monocytes # (0-1.0) k/uL PT (9.0-12.0) sec INR (<1.2) APTT (22.0-30.0) sec ABG pO2 (83-108) mmHg ABG Total CO2 (19-24) mmol/L ABG O2 Saturation (94-97) % Chloride (98-107) mmol/L BUN (9-20) mg/dL Creatinine (0.66-1.25) mg/dL Glucose (74-99) mg/dL POC Glucose (mg/dL) 129 H 129 H 142 H (75-99) mg/dL Calcium (8.4-10.2) mg/dL Phosphorus (2.5-4.5) mg/dL Total Bilirubin (0.2-1.3) mg/dL AST (17-59) U/L ALT (21-72) U/L Alkaline Phosphatase (38-126) U/L Total Protein (6.3-8.2) g/dL Albumin (3.5-5.0) g/dL 08/03/0611/27/17 11/27/17 Range/Units 01:59 02:45 04:05 WBC 20.1 H (3.8-10.6) k/uL RBC 2.50 L (4.30-5.90) m/uL Hgb 7.3 L (13.0-17.5) gm/dL Hct 22.6 L (39.0-53.0) % RDW 17.9 H (11.5-15.5) % Plt Count 79 L (150-450) k/uL Neutrophils # 18.0 H (1.3-7.7) k/uL Lymphocytes # 0.4 L (1.0-4.8) k/uL Monocytes # 1.1 H (0-1.0) k/uL PT (9.0-12.0) sec INR (<1.2) APTT (22.0-30.0) sec ABG pO2 (83-108) mmHg ABG Total CO2 (19-24) mmol/L ABG O2 Saturation (94-97) % Chloride (98-107) mmol/L BUN (9-20) mg/dL Creatinine (0.66-1.25) mg/dL Glucose (74-99) mg/dL POC Glucose (mg/dL) 151 H 136 H (75-99) mg/dL Calcium (8.4-10.2) mg/dL Phosphorus (2.5-4.5) mg/dL Total Bilirubin (0.2-1.3) mg/dL AST (17-59) U/L ALT (21-72) U/L Alkaline Phosphatase (38-126) U/L Total Protein (6.3-8.2) g/dL Albumin (3.5-5.0) g/dL 11/27/17 11/27/17 11/27/17 Range/Units 04:05 04:05 04:19 WBC (3.8-10.6) k/uL RBC (4.30-5.90) m/uL Hgb (13.0-17.5) gm/dL Hct (39.0-53.0) % RDW (11.5-15.5) % Plt Count (150-450) k/uL Neutrophils # (1.3-7.7) k/uL Lymphocytes # (1.0-4.8) k/uL Monocytes # (0-1.0) k/uL PT 13.1 H (9.0-12.0) sec INR 1.4 H (<1.2) APTT 31.6 H (22.0-30.0) sec ABG pO2 (83-108) mmHg ABG Total CO2 (19-24) mmol/L ABG O2 Saturation (94-97) % Chloride 108 H (98-107) mmol/L BUN 119 H* (9-20) mg/dL Creatinine 1.90 H (0.66-1.25) mg/dL Glucose 165 H (74-99) mg/dL POC Glucose (mg/dL) 197 H (75-99) mg/dL Calcium 7.8 L (8.4-10.2) mg/dL Phosphorus 4.7 H (2.5-4.5) mg/dL Total Bilirubin 5.6 H (0.2-1.3) mg/dL AST 285 H (17-59) U/L ALT 357 H (21-72) U/L Alkaline Phosphatase 137 H (38-126) U/L Total Protein 5.1 L (6.3-8.2) g/dL Albumin 2.4 L (3.5-5.0) g/dL 11/27/17 11/27/17 11/27/17 Range/Units 04:36 04:45 06:00 WBC (3.8-10.6) k/uL RBC (4.30-5.90) m/uL Hgb (13.0-17.5) gm/dL Hct (39.0-53.0) % RDW (11.5-15.5) % Plt Count (150-450) k/uL Neutrophils # (1.3-7.7) k/uL Lymphocytes # (1.0-4.8) k/uL Monocytes # (0-1.0) k/uL PT (9.0-12.0) sec INR (<1.2) APTT (22.0-30.0) sec ABG pO2 125 H (83-108) mmHg ABG Total CO2 26 H (19-24) mmol/L ABG O2 Saturation 99.2 H (94-97) % Chloride (98-107) mmol/L BUN (9-20) mg/dL Creatinine (0.66-1.25) mg/dL Glucose (74-99) mg/dL POC Glucose (mg/dL) 193 H 195 H (75-99) mg/dL Calcium (8.4-10.2) mg/dL Phosphorus (2.5-4.5) mg/dL Total Bilirubin (0.2-1.3) mg/dL AST (17-59) U/L ALT (21-72) U/L Alkaline Phosphatase (38-126) U/L Total Protein (6.3-8.2) g/dL Albumin (3.5-5.0) g/dL 11/27/17 11/27/17 11/27/17 Range/Units 06:50 08:10 08:56 WBC (3.8-10.6) k/uL RBC (4.30-5.90) m/uL Hgb (13.0-17.5) gm/dL Hct (39.0-53.0) % RDW (11.5-15.5) % Plt Count (150-450) k/uL Neutrophils # (1.3-7.7) k/uL Lymphocytes # (1.0-4.8) k/uL Monocytes # (0-1.0) k/uL PT (9.0-12.0) sec INR (<1.2) APTT (22.0-30.0) sec ABG pO2 (83-108) mmHg ABG Total CO2 (19-24) mmol/L ABG O2 Saturation (94-97) % Chloride (98-107) mmol/L BUN (9-20) mg/dL Creatinine (0.66-1.25) mg/dL Glucose (74-99) mg/dL POC Glucose (mg/dL) 172 H 167 H 202 H (75-99) mg/dL Calcium (8.4-10.2) mg/dL Phosphorus (2.5-4.5) mg/dL Total Bilirubin (0.2-1.3) mg/dL AST (17-59) U/L ALT (21-72) U/L Alkaline Phosphatase (38-126) U/L Total Protein (6.3-8.2) g/dL Albumin (3.5-5.0) g/dL Microbiology - Last 24 Hours (Table) 11/24/17 20:30 Gram Stain - Preliminary Sputum Sputum Culture - Preliminary Gram Neg Bacilli 11/24/17 10:25 Blood Culture - Preliminary Blood No Growth after 48 hours 11/24/17 10:51 Blood Culture - Preliminary Blood No Growth after 48 hours Assessment and Plan Plan: Assessment: 1. Nonoliguric acute kidney injury secondary to ATN secondary to hemodynamic instability/post CABG. Renal function improving with creatinine down to 1.9 today. Baseline creatinine is 1. 2. Status post CABG and mitral valve repair. 3. Systolic CHF with ejection fraction of 30-35%. 4. Anemia status post blood transfusion this admission. Hemoglobin stable. 5. Hypotension maintained on 10 mics of Levophed. Plan: Maintain tube feeds. Decrease rate of normal saline to 40 mL an hour. Wean vasopressors. Avoid nephrotoxins. Continue to monitor renal function and urine output.
[2017-11-27] MEDS: PIPERACILLIN-TAZOBACTAM 3.375 GM in DEXTROSE/WATER 1 50ML.BAG IVPB SCH ×3 (09:44→23:20)
[2017-11-27 09:51] LABS: Glucose,Whole Blood 190 mg/dL (75-99)
[2017-11-27 10:04] LABS: Cholesterol 68 mg/dL (<200); HDL Cholesterol 12 mg/dL (40-60); LDL Cholesterol,Calculated 36 mg/dL (0-99); Triglycerides 100 mg/dL (<150)
[2017-11-27 10:59] LABS: Glucose,Whole Blood 193 mg/dL (75-99)
[2017-11-27] MEDS: NOREPINEPHRINE 16 MG in DEXTROSE 5% IN WATER 250 ML IV SCH ×2 (11:06)
[2017-11-27] MEDS: ARTIFICIAL TEARS OINTMENT 3.5 GM TUBE BOTH EYES PRN (11:44)
--- NOTE | 2017-11-27 11:46 | P.PN ---
Subjective Progress Note Date: 11/27/17 Mr. Silva is a 72-year-old white male patient of Dr. Wong, who presented today on 11/16/2017 for elective placement of intra-aortic balloon pump in preparation for three-vessel coronary artery bypass graft surgery and mitral valve repair for severe mitral valve insufficiency and ischemic cardiomyopathy with severely impaired systolic dysfunction. Surgery is scheduled for tomorrow 11/17/[address] Borjas. Patient has been having progressive exertional dyspnea for the last 2 years, and last 3 months patient started experiencing severe limitation of his exercise capacity, becoming quite dyspneic while climbing a flight of stairs. Patient denied any chest pain, palpitations, syncopal episodes. Patient started experiencing bilateral lower extremity edema , and he presented to his PCP for evaluation of his symptoms. Patient has been quite active in sports during his lifetime, in swimming and running. 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 Does not have any chronic pulmonary conditions, has a remote history of smoking, quit 40 years ago , smoked a pack a day for about 5 years. No marijuana use, no EtOH, or recreational drugs. 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 Patient had a heart catheterization on 11/09/2017 which showed calcification of left main coronary artery, with mild to moderate atherosclerotic plaque in the ostial portion, circumflex with a 95% stenosis, complete occlusion of the LAD just off to the origin of the large diagonal branch, and 70% stenosis of the diagonal branch. Diffuse disease in the RCA, with a 70% stenosis at the bifurcation into PDA and PLV, and significant disease in the PDA and PLV. All the vessels were noted to be irregular, ectatic and in places aneurysmal. LVEDP was 31 mm, without significant gradient across the aortic valve. PILAR on 11/10/2017 showed ischemic cardiomyopathy with severe left ventricular systolic dysfunction, akinetic inferior wall and the septum, hypokinetic anterior wall. Moderate pulmonary hypertension and moderate mitral regurgitation. Patient was recommended surgical intervention for his symptoms, and he opted for three- vessel coronary artery bypass grafting and mitral valve repair tomorrow. Bedside spirometry was reviewed and showed FEV1 of 1.35 L or 43% of predicted, FVC of 1.65 L or 38% of predicted, consistent with severe restriction. Preop chest x-ray from 11/10/2017 showed mild cardiomegaly with small to moderate- sized right greater than the left pleural effusions and associated compressive atelectasis. Patient is seen in the intensive care, resting in bed, room air pulse ox is 92-97%, he denies any dyspnea, he is afebrile, intra-aortic balloon pump is in place, via right femoral artery. He is currently on 1:1 IABP frequency, with augmented diastolic pressure of 131 mmHg. Distal pulses are intact, sensory status is intact. Fong catheter is in place, patient is nonoliguric. Radial pulses are intact. Patient is on heparin drip at 12 u/kg/ hr. No other drips. He is on oral Lasix at 40 mg daily. Currently resting in bed, in no acute distress. On 11/18/2017 the patient is being seen for a follow-up. Note that he had a prolonged surgery which involved a 4-vessel bypass surgery and mitral valve repair. The patient arrived to the intensive care unit around 7 PM in the evening. He was on an intra-aortic balloon pump. He was also inotropes. Chest x-ray was reviewed. The patient adequate expansion of both lungs. The patient a mediastinal chest tube in the right and left pleural chest tubes. Output from the chest as was considerably high especially from the mediastinal chest tube. Overnight the patient required a total of 4 units of packed RBCs and 4 units of 4 shows and plasma and 2 units of platelets and he also received DDAVP. He received also IV fluids in the form of crystalloids and colloids. The output from the sun chest gradually improved and earlier this morning it was only putting out 20 mL an hour and currently Dopplers somewhere between 20- 40 mL an hour. As for the right pleural chest tubes output initially was initially low and then picked up and it's up to 60-80 mL an hour. The left pleural chest tube is putting out 50 mL an hour. The patient is currently on norepinephrine infusion at 7 g per KG pigmented minutes. He is also on methadone at 0.3 g per KG pigmented minutes. He is also on vasopressin and dopamine. He is also on intra-aortic balloon pump with one-to-one augmentation. The augmented blood pressure is 91. Attempts to cut down the augmentation through the intra-aortic balloon pump has failed as the patient is pressure urine output. In terms of his respiratory status, the patient is a mechanical ventilator. He is currently on assist control mode of ventilation at the rate of 12 with an FiO2 of 4040% and a PEEP of 5 and FiO2 has been drop down to 40% and tidal volumes of 500. The morning blood gases showed a pH of 7.39 with a pCO2 of 40 and pO2 of 217, and note that this was done and FiO2 of 100%. His current FiO2 is down to 40%. Renal function stable with a creatinine of 0.8. Rest of the electrodes are all within normal limits. Correlation profile is within normal limits. Most recent hemoglobin is at 7.3. The patient was sedated with Diprivan and the patient is currently off Diprivan and when it parameters are being checked. Urine output is in order of 30-40 mL an hour over the past 2 hours. His most recent blood sugar is at 137. On 11/19/2017 and seeing this patient for a follow-up. This patient is status post four-vessel bypass surgery and mitral valve replacement. Is postop day # 2. Note that the patient was extubated yesterday without any major difficulties and currently is on oxygen by nasal cannula 2 L/m. The chest x- ray shows adequate expansion of both lungs. There is some pulmonary vessel congestion. The patient has all of these chest tubes in place. The Eek-Wendie catheter is also in place. As far as his breathing status, is not having any respiratory difficulties. Sternum stable clean and intact. The chest tube output over the past 12 hours was 20 mL from the mediastinum, to 90 mL from the right pleural and for 90 mL from the left poor. His most recent hemodynamic parameters shows a cardiac output of 4.8 with an index of 2.5. He has elevated intra-aortic balloon pump was a one-to-one augmentation throughout the night and currently is down to 1-2 augmentation and his augmented mean arterial blood pressures around 72. He is producing adequate amount of urine output. As far as pressors, the patient is on a combination of Primacor at 0.2 g, norepinephrine which is ranging between 1 and 6 g, dopamine at 2.5 Pedro grams per KG pigmented, and vasopressin at physiologic dose of 0.02 units per hour. He is also on lactated Ringer at 40 mL an hour and the patient is currently off insulin drip. No significant events overnight. Is afebrile. He is awake and alert. Moving all 4 extremities and he has adequate pulses in 4 extremities. On 11/20/2017, the patient is being seen in follow-up. The patient is still in the intensive care unit postop day #3. He has done very well post extubation. The intra-aortic balloon pump was discontinued. Hemodynamically, he still requiring pressors and currently the patient is on levo fed at around 5 g per KG pigmented. He is on milrinone at 0.2 micrograms per KG and he is also on vasopressin at physiologic dose of 0.03 units an hour. The patient is off dopamine. Overall cardiac index is somewhat between 2.2 and 2.3. PA diastolic pressures around 17. Urine output dropped over the past hour down to 50 mL an hour. The patient was receiving a unit of packed RBC. Output from the chest tube has been 700 mL on the left pleural over the past 24 hours is 700 mL on the left pleural 500 mL on the right pleural and there is no mediastinal chest tube that was pulled out yesterday. The patient is still on insulin drip for blood sugar control. He is awake and alert. He is feeling very weak and lethargic. He answers questions and follows commands. Trying to use incentive spirometer. The surgical wound site is dry clean and intact. Hemoglobin today is at 7.0. Rated count is at 76. Creatinine is stable at 1.2. Overnight the patient went into to establish with rapid ventricular response. The patient was given to loading dose of amiodarone. Currently is on a maintenance and eye doctor maintenance down to 0.5 mg/m. Around 1 AM this morning the patient converted back to normal sinus rhythm. On 11/21/2017, I'm seeing this patient for a follow-up. Is postop day #4. He remains extubated on 2 L of oxygen by nasal cannula. Intra-aortic balloon pump has been discontinued. The patient has the Eek-Wendie catheter in place. PA pressures are 33/14. The cardiac index is at 2.4. The patient is on milrinone at 0.1. The patient is also on levo fed and the dose varies between 2-50 mics per KG per minute knowing that the patient is a very labile blood pressure. He is having occasional hypotension and subsequent hypertension and based on that the titration of the levo fed is being done. The patient has developed an acute kidney injury. Creatinine is up to 1.8. He also developed an acute liver injury, probably a shock liver due to low flow state. The patient was receiving diuretics yesterday and currently diuretics on hold. He received 2 units of packed RBC yesterday. He also received 5% albumin, 250 mL yesterday. Urine output is no other of 10 mL an hour. He has a pleural chest tube on the right and on the left, the output from the right is 350 over the past 24 hours unless put out 400 mL over the past 24 hours. Overnight, the patient has short runs of paroxysmal atrial fibrillation and current his rhythm is sinus. Amiodarone is at the maintenance of 400 mg by mouth twice a day. The hemoglobin is at 7.7. Chest x-ray shows some mild increase in pulmonary vascular markings. Chest tubes are in good location. There is no evidence of pneumothorax. Limited bibasilar infiltrates seen and small effusions. He is awake. He is alert. Aspirin was kept on 2 baby dose as the patient developed thrombocytopenia. He is still on Plavix. He is on Arixtra for DVT prophylaxis Reevaluated on 11/22/2017, patient is postoperative day #5, remains on nasal cannula at 2 L, in atrial flutter, receiving amiodarone to control his atrial flutter and possibly convert him. patient is on norepinephrine, being titrated to possibly discontinue if possible. His blood pressure seems to be labile, but at least at present seems to be stable. Renal functioning is getting worse , patient is to be seen by nephrology on consultation. Labs today showed hemoglobin of 7.4 WBC count of 8.6 platelets are low at 27,000. BUN is 66 creatinine 2.22. Liver enzymes were also noted to be elevated, however improving in the last 24 hours but remain elevated. Chest x-ray showed minimal atelectasis no evidence of pneumothorax. On 11/23/2017 patient is seen again in the intensive care unit. His night he had episode of confusion, and agitation for which Ativan was given. Currently he sitting up in the chair, in no acute distress, pulse ox on 2 L per nasal cannula is 96%, vital signs are stable, patient is afebrile. Remains tachycardic in atrial flutter, has heart rate between 1:15 and 120 BPM. His chest x-ray has been reviewed by Dr. Harmon and shows a rotated film, but mostly atelectatic changes, no pulmonary edema, we disagree with the interpretation by radiologist. He remains on milrinone at 0.1 mics per kilo per minute, small dose levo fed at 5 mics per minute, and Lasix drip at 5 mg per hour. She received a small fluid bolus yesterday per nephrology with no significant improvement in urine output. This decision was made to start patient on IV Lasix, currently urine output is ranging from 35-75 ML per hour. No significant swelling in bilateral lower extremities, sounds are positive for minimal crackles over left posterior base, patient appears to be intravascularly dry. His labs were reviewed, shows the PVC of 12.0, hemoglobin 7.4, patient will receive 1 unit of packed red blood cells. INR of 2.5, sodium of 134, potassium is 5.2, B1 is 89 and creatinine is 2.3. LFTs are trending down. Patient's incentive spirometry use has been poor. Patient has left pleural chest tube to continuous wall suction, and there has been 30 mL of serosanguineous drainage overnight, 300 mL in the last 24 hours. Right pleural chest tube with 30 amount of serosanguineous drainage overnight and 350 ML in last 24 hours, no air leak present. On 11/24/2017, patient is back on mechanical ventilation, developed significant shortness of breath last night, he became quite restless confused agitated, and could not follow any verbal commands.. Urine output was minimal in spite of of Lasix at 15 mg per hour. All labs were noted to be abnormal, patient developed worsening metabolic acidosis, worsening anemia thrombocytopenia and INR was also noted to be elevated at 2.9. ABG this morning following intubation showed a pO2 of more than 400 pCO2 of 41 however his pH was 7.10. Patient received 3 Amps of sodium bicarb, follow-up ABG was done and we recommended placing the patient on sodium bicarb drip. Most recent ABG at 12:15 PM showed a pO2 of 122 pCO2 of 35 pH of 7.38 and now he is on 40% FiO2. Tidal volume of 450 assist- control rate of 14 and PEEP of 5. Lasix drip was discontinued, I recommended volume replacement, patient was given fluid boluses, and was also given fresh frozen plasma lactic acid this morning was noted to be 8.1. Hence I recommended empiric antibiotics in the form of vancomycin and Zosyn. I believe his lactic acidosis is mostly hypoperfusion in nature, sepsis is felt to be less likely but not entirely ruled out. Patient is now on norepinephrine is also on vasopressin both are being titrated accordingly. Left IJ central line was placed for pressors to be infused. Had a long discussion regarding this patient with cardiac surgery on the case. Also discussed his condition with the funeral service apprentice and we all in agreement to discontinue Lasix drip at this point. Chest x-ray showed evidence of cardiomegaly small bilateral pleural effusions, minimal interstitial changes bilaterally no significant pulmonary edema is noted. On 11/25/2017, the patient is postop day #7 the patient is being seen in the follow-up. Remains intubated on a mechanical ventilator. Vent settings include assist control of 14, tidal volume of 450, FiO2 of 450 and a PEEP of 5. The patient is sedated with Diprivan and the patient is calm comfortable. The patient had a follow-up chest x-ray today and the chest x-ray showed stable findings with mild interstitial changes and trace pleural effusion. All of the tubes are in good location. The patient has still mediastinum and left pleural chest tube. She will also is in a good location. The blood gases from today showed a pH of 7.4 with a pCO2 of 42 and pO2 of 117 and this was done and FiO2 of 35%. Hemodynamically, the patient is still having issues with hypotension. First of all he remains in atrial fibrillation and the rate is tachycardic between 110 and 120. At the same time, the patient is a combination of present including vasopressin physiologic dose, Primacor at 0.3 g and norepinephrine infusion has been weaned down to 20 mics per KG per minutes. And output was in the order of 100 mL an hour. The patient is producing good amount of urine output. In fact for today is producing approximately 3 L of urine output and now. That fluid balance is slightly positive for today. As for the chest tube outputs, the patient is producing approximately 90 mL from the mediastinal chest tube and to 230 mL over the past 24 hours and from the left pleural chest tube the patient has produced 250 mL over the past 24 hours. As for the patient 's or G-tube, the patient has been placed on low intermittent suction and the patient has produced approximately 150 mL overnight. CVP is currently at 11 and ranges between 11 and 20. The patient is being weaned off the pressors. We managed to cut him down to 50 g per KG per minute. Having liquidy stool and the C. diff evaluation was negative. This is probably related to a component of ischemic colitis and the patient has no fever or chills. Lactic acidosis is also improved. The renal function is also improving and the creatinine is down to 2.6. LFTs are normal consistent with [id number] of the numbers are gradually also improving. On 11/26/2017, patient is postop day #8. Remains intubated. On a mechanical ventilator. Essentially same vent settings with assist control of 14 with tidal volume of 450 and a PEEP of 5 and FiO2 of 35%. Chest x-ray findings are typical postsurgical changes with increased atelectatic changes in lung bases and some subpulmonic pleural effusion and increased interstitial markings. ET tube is in a good location. Chest tubes are also in good location. The patient had a pH of 7.4 with a pCO2 of 38 and pO2 121 based on today's blood gases. Hemodynamically, he is essentially the same. He still requiring Primacor at 0.2 and he is also on norepinephrine infusion at 15 mics and addition to vasopressin physiologic dose. Urine output is noted of 20-30 mL an hour. Net fluid balance over the past 24 hours is +581 mL. Output from the chest tubes of a minimal and we are considering removal of the chest tubes today. His cardiac rhythm is sinus. No fever. No chills. Empiric recovered and is a combination of Zosyn and vancomycin. Tolerating his tube feeds is currently at goal with vital high protein. FMS output is minimal at this point in time. White cell count is at 14.6. Hemoglobin stable at 7.0. Liver function tests are improving and the renal function is stable with a creatinine of 2.2. Insulin is running at 4 units an hour and the patient adequate blood sugar control. Sedation is on Diprivan at 30 mics and the patient is easily arousable and he withdraws to painful semination all 4 extremities. On 11/27/2017 the patient is postop day #9. The patient is intubated on a mechanical ventilator. Receiving a sedation holiday and we have noted that he is slowly recovering in terms of his mentation. He remains on the same vent settings. He is on a tidal volume of 450 with an FiO2 of 35% and PEEP of 5. Sputum showing gram-negative bacillus. Is on IV Zosyn. No indication for any pneumonia or respiratory infection and this is probably a colonizer. Vancomycin was discontinued. He was dynamically stable pressor requirement and he is on 10 mics of norepinephrine infusion. He is also on Primacor. Shock liver is improving. Renal function is also stable with a creatinine of 1.9 which is improved compared to yesterday. He is producing adequate amount of urine output. His splitting between atrial fibrillation and normal sinus rhythm. This morning he is in atrial fibrillation with a controlled rate. He is INR is down to 1.4. Chest tubes are in place. Output from the chest tubes considerably high and that she will be kept in place. FMS is in place. The patient is less in terms of his stool output. He is tolerating tube feeds and enteral nutrition for nutritional support. Hemoglobin stable at 7.3. Platelet counts are improving with topical 79,000. No other significant events otherwise for now. Objective - Vital Signs Vital signs: Vital Signs Temp 97.8 F 11/27/17 08:00 Pulse 104 H 11/27/17 10:00 Resp 30 H 11/27/17 10:00 BP 96/53 11/26/17 19:00 Pulse Ox 97 11/27/17 10:00 Intake & Output 11/26/17 11/27/17 11/27/17 18:59 06:59 18:59 Intake Total 4096.584 2450.219 103.79 Output Total 1010 1185 280 Balance 58.664 937.219 -176.21 Weight 85.4 kg 85.9 kg 85.9 kg Intake: IV 209.2 977.8 80.6 Milrinone-D5W 55.2 59.8 4.6 Pressure Bags 72 78 6 Sodium Chloride 0.9% 1, 840 70 000 ml @ 40 mls/hr IV . Q24H [facility] Rx#:[id number] Sodium Chloride 0.9% 1, 70 000 ml @ 70 mls/hr IV . [id number] [facility] Rx#:[id number] Sodium Chloride 0.9% 99 12 ml @ 0.03 UNITS/MIN 9 mls /hr IV .[id number] [facility] with Vasopressin 20 unit Rx#: [id number] Intake, IV Titration 343.464 340.419 23.19 Amount Insulin Regular 100 unit 43.840 29.245 In Sodium Chloride 0.9% 100 ml @ Per Protocol IV .Q0M [facility] Rx#:[id number] Milrinone-D5w Pmx 20 mg 100 In Dextrose/Water 1 100ml .bag @ 0.2 MCG/KG/MIN 4. 66 mls/hr IV .[id number] [facility] Rx#:[id number] Norepinephrine 16 mg In 127.495 86.928 Dextrose 5% in Water 250 ml @ Titrate IV .Q0M [facility] Rx#:[id number] Propofol 1,000 mg In 172.129 124.246 23.19 Empty Bag 1 bag @ Titrate IV .Q0M [facility] Rx#: [id number] Tube Feeding 336 714 Other 180 90 Output: Chest Tube Drainage 120 290 60 left pleural 40 140 20 right pleural 80 150 40 Urine 890 895 220 Other: Voiding Method Indwelling Catheter Indwelling Catheter Indwelling Catheter ABP, PAP, CO, CI - Last Documented Arterial Blood Pressure 144/58 Pulmonary Artery Pressure 40/15 Cardiac Output 5.0 Cardiac Index 2.7 - Exam - Constitutional Constitutional Comment(s): Currently in no distress, remains sedated on mechanical ventilation. - Respiratory Details: Lungs sounds diminished bilaterally. Respirations even, nonlabored on mechanical ventilation. Current ventilator settings assist control mode, FiO2 35%, tidal volume 450, respiratory rate 14, PEEP 5. 8.0 ET tube present, 25 at the lip. Left pleural chest tube to continuous wall suction, 90 mL serosanguineous drainage overnight, 250 mL in 24 hours. Right pleural chest tube to continuous wall suction, 90 mL serosanguineous drainage overnight, 230 mL in 24 hours. No air leaks present. - Cardiovascular Details: S1, S2 present. Regular, tachycardic rate and rhythm, sinus tach on monitor. Sternum stable. A/V epicardial pacemaker wires present, grounded. Palpable peripheral pulses bilaterally. Trace scrotal edema present. Right radial arterial line, left brachial PICC line, left internal jugular triple-lumen central line present. CVP ranging from 11-20, mostly 14-15. Levo being titrated as needed to keep MAP > 65, vasopressin currently infusing and 0.02 units/min, Primacor currently at 0.02 mcg/kg/min. Heart hugger, antiembolism stockings, SCDs present. - Gastrointestinal Gastrointestinal Comment(s): Abdomen soft, nontender, nondistended. Active bowel sounds present 4 quadrants. OG tube present to low intermittent suction, 750 mL drainage yesterday, 150 mL overnight. Fecal management system present, yellowish brown liquid stool, occult blood positive, C. diff negative. - Genitourinary Genitourinary Comment(s): Fong present draining concentrated urine. Output 115-220 mL/h overnight without diuretics. - Integumentary Integumentary Comment(s): Skin warm and dry, right great toe, left baby toe starting to turn blue likely from high-dose levo. Sternal incision well approximated and covered with dry intact dressing. Left lower extremity EVH site well approximated. - Neurologic Neurologic Comment(s): Currently sedated on mechanical ventilation. - Allied health notes Allied health notes reviewed: nursing - Labs CBC & Chem 7: 11/27/17 04:05 11/27/17 04:05 Labs: Abnormal Lab Results - Last 24 Hours (Table) 11/26/17 11/26/17 11/26/17 Range/Units 11:59 13:06 16:08 WBC (3.8-10.6) k/uL RBC (4.30-5.90) m/uL Hgb (13.0-17.5) gm/dL Hct (39.0-53.0) % RDW (11.5-15.5) % Plt Count (150-450) k/uL Neutrophils # (1.3-7.7) k/uL Lymphocytes # (1.0-4.8) k/uL Monocytes # (0-1.0) k/uL PT (9.0-12.0) sec INR (<1.2) APTT (22.0-30.0) sec ABG pO2 (83-108) mmHg ABG Total CO2 (19-24) mmol/L ABG O2 Saturation (94-97) % Chloride (98-107) mmol/L BUN (9-20) mg/dL Creatinine (0.66-1.25) mg/dL Glucose (74-99) mg/dL POC Glucose (mg/dL) 168 H 170 H 145 H (75-99) mg/dL Calcium (8.4-10.2) mg/dL Phosphorus (2.5-4.5) mg/dL Total Bilirubin (0.2-1.3) mg/dL AST (17-59) U/L ALT (21-72) U/L Alkaline Phosphatase (38-126) U/L CK-MB (CK-2) (0.0-2.4) ng/mL Total Protein (6.3-8.2) g/dL Albumin (3.5-5.0) g/dL HDL Cholesterol (40-60) mg/dL 11/26/17 11/26/17 11/26/17 Range/Units 16:53 18:01 18:50 WBC (3.8-10.6) k/uL RBC (4.30-5.90) m/uL Hgb (13.0-17.5) gm/dL Hct (39.0-53.0) % RDW (11.5-15.5) % Plt Count (150-450) k/uL Neutrophils # (1.3-7.7) k/uL Lymphocytes # (1.0-4.8) k/uL Monocytes # (0-1.0) k/uL PT (9.0-12.0) sec INR (<1.2) APTT (22.0-30.0) sec ABG pO2 (83-108) mmHg ABG Total CO2 (19-24) mmol/L ABG O2 Saturation (94-97) % Chloride (98-107) mmol/L BUN (9-20) mg/dL Creatinine (0.66-1.25) mg/dL Glucose (74-99) mg/dL POC Glucose (mg/dL) 148 H 156 H 174 H (75-99) mg/dL Calcium (8.4-10.2) mg/dL Phosphorus (2.5-4.5) mg/dL Total Bilirubin (0.2-1.3) mg/dL AST (17-59) U/L ALT (21-72) U/L Alkaline Phosphatase (38-126) U/L CK-MB (CK-2) (0.0-2.4) ng/mL Total Protein (6.3-8.2) g/dL Albumin (3.5-5.0) g/dL HDL Cholesterol (40-60) mg/dL 11/26/17 11/26/17 11/26/17 Range/Units 19:55 21:08 21:53 WBC (3.8-10.6) k/uL RBC (4.30-5.90) m/uL Hgb (13.0-17.5) gm/dL Hct (39.0-53.0) % RDW (11.5-15.5) % Plt Count (150-450) k/uL Neutrophils # (1.3-7.7) k/uL Lymphocytes # (1.0-4.8) k/uL Monocytes # (0-1.0) k/uL PT (9.0-12.0) sec INR (<1.2) APTT (22.0-30.0) sec ABG pO2 (83-108) mmHg ABG Total CO2 (19-24) mmol/L ABG O2 Saturation (94-97) % Chloride (98-107) mmol/L BUN (9-20) mg/dL Creatinine (0.66-1.25) mg/dL Glucose (74-99) mg/dL POC Glucose (mg/dL) 162 H 149 H 137 H (75-99) mg/dL Calcium (8.4-10.2) mg/dL Phosphorus (2.5-4.5) mg/dL Total Bilirubin (0.2-1.3) mg/dL AST (17-59) U/L ALT (21-72) U/L Alkaline Phosphatase (38-126) U/L CK-MB (CK-2) (0.0-2.4) ng/mL Total Protein (6.3-8.2) g/dL Albumin (3.5-5.0) g/dL HDL Cholesterol (40-60) mg/dL 11/26/17 11/26/17 11/27/17 Range/Units 23:06 23:53 01:08 WBC (3.8-10.6) k/uL RBC (4.30-5.90) m/uL Hgb (13.0-17.5) gm/dL Hct (39.0-53.0) % RDW (11.5-15.5) % Plt Count (150-450) k/uL Neutrophils # (1.3-7.7) k/uL Lymphocytes # (1.0-4.8) k/uL Monocytes # (0-1.0) k/uL PT (9.0-12.0) sec INR (<1.2) APTT (22.0-30.0) sec ABG pO2 (83-108) mmHg ABG Total CO2 (19-24) mmol/L ABG O2 Saturation (94-97) % Chloride (98-107) mmol/L BUN (9-20) mg/dL Creatinine (0.66-1.25) mg/dL Glucose (74-99) mg/dL POC Glucose (mg/dL) 129 H 129 H 142 H (75-99) mg/dL Calcium (8.4-10.2) mg/dL Phosphorus (2.5-4.5) mg/dL Total Bilirubin (0.2-1.3) mg/dL AST (17-59) U/L ALT (21-72) U/L Alkaline Phosphatase (38-126) U/L CK-MB (CK-2) (0.0-2.4) ng/mL Total Protein (6.3-8.2) g/dL Albumin (3.5-5.0) g/dL HDL Cholesterol (40-60) mg/dL 11/27/17 11/27/17 11/27/17 Range/Units 01:59 02:45 04:05 WBC 20.1 H (3.8-10.6) k/uL RBC 2.50 L (4.30-5.90) m/uL Hgb 7.3 L (13.0-17.5) gm/dL Hct 22.6 L (39.0-53.0) % RDW 17.9 H (11.5-15.5) % Plt Count 79 L (150-450) k/uL Neutrophils # 18.0 H (1.3-7.7) k/uL Lymphocytes # 0.4 L (1.0-4.8) k/uL Monocytes # 1.1 H (0-1.0) k/uL PT (9.0-12.0) sec INR (<1.2) APTT (22.0-30.0) sec ABG pO2 (83-108) mmHg ABG Total CO2 (19-24) mmol/L ABG O2 Saturation (94-97) % Chloride (98-107) mmol/L BUN (9-20) mg/dL Creatinine (0.66-1.25) mg/dL Glucose (74-99) mg/dL POC Glucose (mg/dL) 151 H 136 H (75-99) mg/dL Calcium (8.4-10.2) mg/dL Phosphorus (2.5-4.5) mg/dL Total Bilirubin (0.2-1.3) mg/dL AST (17-59) U/L ALT (21-72) U/L Alkaline Phosphatase (38-126) U/L CK-MB (CK-2) (0.0-2.4) ng/mL Total Protein (6.3-8.2) g/dL Albumin (3.5-5.0) g/dL HDL Cholesterol (40-60) mg/dL 11/27/17 11/27/17 11/27/17 Range/Units 04:05 04:05 04:05 WBC (3.8-10.6) k/uL RBC (4.30-5.90) m/uL Hgb (13.0-17.5) gm/dL Hct (39.0-53.0) % RDW (11.5-15.5) % Plt Count (150-450) k/uL Neutrophils # (1.3-7.7) k/uL Lymphocytes # (1.0-4.8) k/uL Monocytes # (0-1.0) k/uL PT 13.1 H (9.0-12.0) sec INR 1.4 H (<1.2) APTT 31.6 H (22.0-30.0) sec ABG pO2 (83-108) mmHg ABG Total CO2 (19-24) mmol/L ABG O2 Saturation (94-97) % Chloride 108 H (98-107) mmol/L BUN 119 H* (9-20) mg/dL Creatinine 1.90 H (0.66-1.25) mg/dL Glucose 165 H (74-99) mg/dL POC Glucose (mg/dL) (75-99) mg/dL Calcium 7.8 L (8.4-10.2) mg/dL Phosphorus 4.7 H (2.5-4.5) mg/dL Total Bilirubin 5.6 H (0.2-1.3) mg/dL AST 285 H (17-59) U/L ALT 357 H (21-72) U/L Alkaline Phosphatase 137 H (38-126) U/L CK-MB (CK-2) 8.4 H* (0.0-2.4) ng/mL Total Protein 5.1 L (6.3-8.2) g/dL Albumin 2.4 L (3.5-5.0) g/dL HDL Cholesterol (40-60) mg/dL 11/27/17 11/27/17 11/27/17 Range/Units 04:05 04:19 04:36 WBC (3.8-10.6) k/uL RBC (4.30-5.90) m/uL Hgb (13.0-17.5) gm/dL Hct (39.0-53.0) % RDW (11.5-15.5) % Plt Count (150-450) k/uL Neutrophils # (1.3-7.7) k/uL Lymphocytes # (1.0-4.8) k/uL Monocytes # (0-1.0) k/uL PT (9.0-12.0) sec INR (<1.2) APTT (22.0-30.0) sec ABG pO2 125 H (83-108) mmHg ABG Total CO2 26 H (19-24) mmol/L ABG O2 Saturation 99.2 H (94-97) % Chloride (98-107) mmol/L BUN (9-20) mg/dL Creatinine (0.66-1.25) mg/dL Glucose (74-99) mg/dL POC Glucose (mg/dL) 197 H (75-99) mg/dL Calcium (8.4-10.2) mg/dL Phosphorus (2.5-4.5) mg/dL Total Bilirubin (0.2-1.3) mg/dL AST (17-59) U/L ALT (21-72) U/L Alkaline Phosphatase (38-126) U/L CK-MB (CK-2) (0.0-2.4) ng/mL Total Protein (6.3-8.2) g/dL Albumin (3.5-5.0) g/dL HDL Cholesterol 12 L (40-60) mg/dL 11/27/17 11/27/17 11/27/17 Range/Units 04:45 06:00 06:50 WBC (3.8-10.6) k/uL RBC (4.30-5.90) m/uL Hgb (13.0-17.5) gm/dL Hct (39.0-53.0) % RDW (11.5-15.5) % Plt Count (150-450) k/uL Neutrophils # (1.3-7.7) k/uL Lymphocytes # (1.0-4.8) k/uL Monocytes # (0-1.0) k/uL PT (9.0-12.0) sec INR (<1.2) APTT (22.0-30.0) sec ABG pO2 (83-108) mmHg ABG Total CO2 (19-24) mmol/L ABG O2 Saturation (94-97) % Chloride (98-107) mmol/L BUN (9-20) mg/dL Creatinine (0.66-1.25) mg/dL Glucose (74-99) mg/dL POC Glucose (mg/dL) 193 H 195 H 172 H (75-99) mg/dL Calcium (8.4-10.2) mg/dL Phosphorus (2.5-4.5) mg/dL Total Bilirubin (0.2-1.3) mg/dL AST (17-59) U/L ALT (21-72) U/L Alkaline Phosphatase (38-126) U/L CK-MB (CK-2) (0.0-2.4) ng/mL Total Protein (6.3-8.2) g/dL Albumin (3.5-5.0) g/dL HDL Cholesterol (40-60) mg/dL 11/27/17 11/27/17 11/27/17 Range/Units 08:10 08:56 09:50 WBC (3.8-10.6) k/uL RBC (4.30-5.90) m/uL Hgb (13.0-17.5) gm/dL Hct (39.0-53.0) % RDW (11.5-15.5) % Plt Count (150-450) k/uL Neutrophils # (1.3-7.7) k/uL Lymphocytes # (1.0-4.8) k/uL Monocytes # (0-1.0) k/uL PT (9.0-12.0) sec INR (<1.2) APTT (22.0-30.0) sec ABG pO2 (83-108) mmHg ABG Total CO2 (19-24) mmol/L ABG O2 Saturation (94-97) % Chloride (98-107) mmol/L BUN (9-20) mg/dL Creatinine (0.66-1.25) mg/dL Glucose (74-99) mg/dL POC Glucose (mg/dL) 167 H 202 H 190 H (75-99) mg/dL Calcium (8.4-10.2) mg/dL Phosphorus (2.5-4.5) mg/dL Total Bilirubin (0.2-1.3) mg/dL AST (17-59) U/L ALT (21-72) U/L Alkaline Phosphatase (38-126) U/L CK-MB (CK-2) (0.0-2.4) ng/mL Total Protein (6.3-8.2) g/dL Albumin (3.5-5.0) g/dL HDL Cholesterol (40-60) mg/dL 11/27/17 Range/Units 10:57 WBC (3.8-10.6) k/uL RBC (4.30-5.90) m/uL Hgb (13.0-17.5) gm/dL Hct (39.0-53.0) % RDW (11.5-15.5) % Plt Count (150-450) k/uL Neutrophils # (1.3-7.7) k/uL Lymphocytes # (1.0-4.8) k/uL Monocytes # (0-1.0) k/uL PT (9.0-12.0) sec INR (<1.2) APTT (22.0-30.0) sec ABG pO2 (83-108) mmHg ABG Total CO2 (19-24) mmol/L ABG O2 Saturation (94-97) % Chloride (98-107) mmol/L BUN (9-20) mg/dL Creatinine (0.66-1.25) mg/dL Glucose (74-99) mg/dL POC Glucose (mg/dL) 193 H (75-99) mg/dL Calcium (8.4-10.2) mg/dL Phosphorus (2.5-4.5) mg/dL Total Bilirubin (0.2-1.3) mg/dL AST (17-59) U/L ALT (21-72) U/L Alkaline Phosphatase (38-126) U/L CK-MB (CK-2) (0.0-2.4) ng/mL Total Protein (6.3-8.2) g/dL Albumin (3.5-5.0) g/dL HDL Cholesterol (40-60) mg/dL Microbiology - Last 24 Hours (Table) 11/24/17 20:30 Gram Stain - Preliminary Sputum Sputum Culture - Preliminary Klebsiella oxytoca 11/24/17 10:25 Blood Culture - Preliminary Blood No Growth after 48 hours 11/24/17 10:51 Blood Culture - Preliminary Blood No Growth after 48 hours Assessment and Plan Plan: #1. Symptomatic multivessel coronary artery disease, with total occlusion of the LAD, 70% stenosis of the diagonal artery, 95% stenosis of the circumflex, diffuse disease in the RCA with 70% stenosis at the bifurcation of the PDA and PLV. Patient is scheduled for coronary artery bypass grafting and mitral valve repair on 11/17/2017. The patient is postop day #9 #2. Mitral valve regurgitation, post mitral valve repair, patient postop day #9 #3 shock with ongoing difficulties with hypotension. This is predominantly of a cardiogenic in nature. The patient developed multisystem organ injury including shock liver, and acute kidney injury from which is improving. Pressor carotids have gone down gradually yet not completely off pressors and started on a combination of Primacor and norepinephrine infusion. Chest tubes are still in place. #4 Ischemic cardiomyopathy, with severe left ventricular systolic dysfunction, with significantly impaired preoperative physical ejection fraction #5. Diabetes mellitus type 2, the patient is on insulin drip #6. Remote history of nicotine dependence, patient quit 40 years ago, carries 5 -pack-year smoking history #7. Postoperative anemia with a hemoglobin of of 7.3 and the patient will be receiving units of packed RBC. There is an expected outcome of surgery #8. Diabetic retinopathy #9 acute hepatocellular injury/shock liver secondary to above, improving #10 acute kidney injury on top of chronic renal failure, improving #11 ischemic colitis with secondary diarrhea #12 thrombocytopenia, improving, and expected outcome of cardiac surgery #13 chronic atrial fibrillation him a still on amiodarone and the patient is having episodes of A. fib in addition to occasional sinus rhythm. #14 acute hypoxic respiratory failure secondary to above-mentioned comorbidities. The patient is intubated on mechanical ventilator. Plan Hold sedation and assess mental status. There may be a component of metabolic encephalopathy from shock liver and same time the patient has received significant sedation. Keep the chest tube in place. Wean pressors. Monitor renal function. Monitor LFTs. Check ammonia level. Check lipid profile looking for triglyceride levels. Check CPK. Gram-negative in the sputum is most likely a colonizer. No signs of any pneumonia. Keep chest tubes in place. We'll continue to follow. Critical care evaluation, 31 minutes.
--- NOTE | 2017-11-27 11:57 | P.PN ---
Subjective Progress Note Date: 11/27/17 Principal diagnosis: Status post mitral valve repair Patient continued to be distended does not follow commands. Patient has developed atrial fibrillation and heart rate is currently controlled. Patient continued to require levo fed infusion at 6 mics per Per minute Objective - Vital Signs Vital signs: Vital Signs Temp 97.8 F 11/27/17 08:00 Pulse 110 H 11/27/17 11:42 Resp 30 H 11/27/17 10:00 BP 96/53 11/26/17 19:00 Pulse Ox 97 11/27/17 10:00 Intake & Output 11/26/17 11/27/17 11/27/17 18:59 06:59 18:59 Intake Total 0064.334 2746.219 103.79 Output Total 1010 1185 280 Balance 58.664 937.219 -176.21 Weight 85.4 kg 85.9 kg 85.9 kg Intake: IV 209.2 977.8 80.6 Milrinone-D5W 55.2 59.8 4.6 Pressure Bags 72 78 6 Sodium Chloride 0.9% 1, 840 70 000 ml @ 40 mls/hr IV . Q24H JANNA Rx#:[id number] Sodium Chloride 0.9% 1, 70 000 ml @ 70 mls/hr IV . [id number] JANNA Rx#:[id number] Sodium Chloride 0.9% 99 12 ml @ 0.03 UNITS/MIN 9 mls /hr IV .[id number] JANNA with Vasopressin 20 unit Rx#: [id number] Intake, IV Titration 343.464 340.419 23.19 Amount Insulin Regular 100 unit 43.840 29.245 In Sodium Chloride 0.9% 100 ml @ Per Protocol IV .Q0M JANNA Rx#:[id number] Milrinone-D5w Pmx 20 mg 100 In Dextrose/Water 1 100ml .bag @ 0.2 MCG/KG/MIN 4. 66 mls/hr IV .[id number] JANNA Rx#:[id number] Norepinephrine 16 mg In 127.495 86.928 Dextrose 5% in Water 250 ml @ Titrate IV .Q0M JANNA Rx#:[id number] Propofol 1,000 mg In 172.129 124.246 23.19 Empty Bag 1 bag @ Titrate IV .Q0M JANNA Rx#: [id number] Tube Feeding 336 714 Other 180 90 Output: Chest Tube Drainage 120 290 60 left pleural 40 140 20 right pleural 80 150 40 Urine 890 895 220 Other: Voiding Method Indwelling Catheter Indwelling Catheter Indwelling Catheter ABP, PAP, CO, CI - Last Documented Arterial Blood Pressure 144/58 Pulmonary Artery Pressure 40/15 Cardiac Output 5.0 Cardiac Index 2.7 - Exam Gen.: Does not follow commands Heart: Normal S1-S2 Lungs: Coarse breathing sounds bilaterally Abdomen: Soft, no tenderness, positive bowel sounds in all 4 quadrant no guarding or rebound Skin: No new rash Psych: Alert and oriented 0 Neuro: Unable to assess due to patient's condition - Labs CBC & Chem 7: 11/27/17 04:05 11/27/17 04:05 Labs: Abnormal Lab Results - Last 24 Hours (Table) 11/26/17 11/26/17 11/26/17 Range/Units 11:59 13:06 16:08 WBC (3.8-10.6) k/uL RBC (4.30-5.90) m/uL Hgb (13.0-17.5) gm/dL Hct (39.0-53.0) % RDW (11.5-15.5) % Plt Count (150-450) k/uL Neutrophils # (1.3-7.7) k/uL Lymphocytes # (1.0-4.8) k/uL Monocytes # (0-1.0) k/uL PT (9.0-12.0) sec INR (<1.2) APTT (22.0-30.0) sec ABG pO2 (83-108) mmHg ABG Total CO2 (19-24) mmol/L ABG O2 Saturation (94-97) % Chloride (98-107) mmol/L BUN (9-20) mg/dL Creatinine (0.66-1.25) mg/dL Glucose (74-99) mg/dL POC Glucose (mg/dL) 168 H 170 H 145 H (75-99) mg/dL Calcium (8.4-10.2) mg/dL Phosphorus (2.5-4.5) mg/dL Total Bilirubin (0.2-1.3) mg/dL AST (17-59) U/L ALT (21-72) U/L Alkaline Phosphatase (38-126) U/L CK-MB (CK-2) (0.0-2.4) ng/mL Total Protein (6.3-8.2) g/dL Albumin (3.5-5.0) g/dL HDL Cholesterol (40-60) mg/dL 11/26/17 11/26/17 11/26/17 Range/Units 16:53 18:01 18:50 WBC (3.8-10.6) k/uL RBC (4.30-5.90) m/uL Hgb (13.0-17.5) gm/dL Hct (39.0-53.0) % RDW (11.5-15.5) % Plt Count (150-450) k/uL Neutrophils # (1.3-7.7) k/uL Lymphocytes # (1.0-4.8) k/uL Monocytes # (0-1.0) k/uL PT (9.0-12.0) sec INR (<1.2) APTT (22.0-30.0) sec ABG pO2 (83-108) mmHg ABG Total CO2 (19-24) mmol/L ABG O2 Saturation (94-97) % Chloride (98-107) mmol/L BUN (9-20) mg/dL Creatinine (0.66-1.25) mg/dL Glucose (74-99) mg/dL POC Glucose (mg/dL) 148 H 156 H 174 H (75-99) mg/dL Calcium (8.4-10.2) mg/dL Phosphorus (2.5-4.5) mg/dL Total Bilirubin (0.2-1.3) mg/dL AST (17-59) U/L ALT (21-72) U/L Alkaline Phosphatase (38-126) U/L CK-MB (CK-2) (0.0-2.4) ng/mL Total Protein (6.3-8.2) g/dL Albumin (3.5-5.0) g/dL HDL Cholesterol (40-60) mg/dL 11/26/17 11/26/17 11/26/17 Range/Units 19:55 21:08 21:53 WBC (3.8-10.6) k/uL RBC (4.30-5.90) m/uL Hgb (13.0-17.5) gm/dL Hct (39.0-53.0) % RDW (11.5-15.5) % Plt Count (150-450) k/uL Neutrophils # (1.3-7.7) k/uL Lymphocytes # (1.0-4.8) k/uL Monocytes # (0-1.0) k/uL PT (9.0-12.0) sec INR (<1.2) APTT (22.0-30.0) sec ABG pO2 (83-108) mmHg ABG Total CO2 (19-24) mmol/L ABG O2 Saturation (94-97) % Chloride (98-107) mmol/L BUN (9-20) mg/dL Creatinine (0.66-1.25) mg/dL Glucose (74-99) mg/dL POC Glucose (mg/dL) 162 H 149 H 137 H (75-99) mg/dL Calcium (8.4-10.2) mg/dL Phosphorus (2.5-4.5) mg/dL Total Bilirubin (0.2-1.3) mg/dL AST (17-59) U/L ALT (21-72) U/L Alkaline Phosphatase (38-126) U/L CK-MB (CK-2) (0.0-2.4) ng/mL Total Protein (6.3-8.2) g/dL Albumin (3.5-5.0) g/dL HDL Cholesterol (40-60) mg/dL 11/26/17 11/26/17 11/27/17 Range/Units 23:06 23:53 01:08 WBC (3.8-10.6) k/uL RBC (4.30-5.90) m/uL Hgb (13.0-17.5) gm/dL Hct (39.0-53.0) % RDW (11.5-15.5) % Plt Count (150-450) k/uL Neutrophils # (1.3-7.7) k/uL Lymphocytes # (1.0-4.8) k/uL Monocytes # (0-1.0) k/uL PT (9.0-12.0) sec INR (<1.2) APTT (22.0-30.0) sec ABG pO2 (83-108) mmHg ABG Total CO2 (19-24) mmol/L ABG O2 Saturation (94-97) % Chloride (98-107) mmol/L BUN (9-20) mg/dL Creatinine (0.66-1.25) mg/dL Glucose (74-99) mg/dL POC Glucose (mg/dL) 129 H 129 H 142 H (75-99) mg/dL Calcium (8.4-10.2) mg/dL Phosphorus (2.5-4.5) mg/dL Total Bilirubin (0.2-1.3) mg/dL AST (17-59) U/L ALT (21-72) U/L Alkaline Phosphatase (38-126) U/L CK-MB (CK-2) (0.0-2.4) ng/mL Total Protein (6.3-8.2) g/dL Albumin (3.5-5.0) g/dL HDL Cholesterol (40-60) mg/dL 11/27/17 11/27/17 11/27/17 Range/Units 01:59 02:45 04:05 WBC 20.1 H (3.8-10.6) k/uL RBC 2.50 L (4.30-5.90) m/uL Hgb 7.3 L (13.0-17.5) gm/dL Hct 22.6 L (39.0-53.0) % RDW 17.9 H (11.5-15.5) % Plt Count 79 L (150-450) k/uL Neutrophils # 18.0 H (1.3-7.7) k/uL Lymphocytes # 0.4 L (1.0-4.8) k/uL Monocytes # 1.1 H (0-1.0) k/uL PT (9.0-12.0) sec INR (<1.2) APTT (22.0-30.0) sec ABG pO2 (83-108) mmHg ABG Total CO2 (19-24) mmol/L ABG O2 Saturation (94-97) % Chloride (98-107) mmol/L BUN (9-20) mg/dL Creatinine (0.66-1.25) mg/dL Glucose (74-99) mg/dL POC Glucose (mg/dL) 151 H 136 H (75-99) mg/dL Calcium (8.4-10.2) mg/dL Phosphorus (2.5-4.5) mg/dL Total Bilirubin (0.2-1.3) mg/dL AST (17-59) U/L ALT (21-72) U/L Alkaline Phosphatase (38-126) U/L CK-MB (CK-2) (0.0-2.4) ng/mL Total Protein (6.3-8.2) g/dL Albumin (3.5-5.0) g/dL HDL Cholesterol (40-60) mg/dL 11/27/17 11/27/17 11/27/17 Range/Units 04:05 04:05 04:05 WBC (3.8-10.6) k/uL RBC (4.30-5.90) m/uL Hgb (13.0-17.5) gm/dL Hct (39.0-53.0) % RDW (11.5-15.5) % Plt Count (150-450) k/uL Neutrophils # (1.3-7.7) k/uL Lymphocytes # (1.0-4.8) k/uL Monocytes # (0-1.0) k/uL PT 13.1 H (9.0-12.0) sec INR 1.4 H (<1.2) APTT 31.6 H (22.0-30.0) sec ABG pO2 (83-108) mmHg ABG Total CO2 (19-24) mmol/L ABG O2 Saturation (94-97) % Chloride 108 H (98-107) mmol/L BUN 119 H* (9-20) mg/dL Creatinine 1.90 H (0.66-1.25) mg/dL Glucose 165 H (74-99) mg/dL POC Glucose (mg/dL) (75-99) mg/dL Calcium 7.8 L (8.4-10.2) mg/dL Phosphorus 4.7 H (2.5-4.5) mg/dL Total Bilirubin 5.6 H (0.2-1.3) mg/dL AST 285 H (17-59) U/L ALT 357 H (21-72) U/L Alkaline Phosphatase 137 H (38-126) U/L CK-MB (CK-2) 8.4 H* (0.0-2.4) ng/mL Total Protein 5.1 L (6.3-8.2) g/dL Albumin 2.4 L (3.5-5.0) g/dL HDL Cholesterol (40-60) mg/dL 11/27/17 11/27/17 11/27/17 Range/Units 04:05 04:19 04:36 WBC (3.8-10.6) k/uL RBC (4.30-5.90) m/uL Hgb (13.0-17.5) gm/dL Hct (39.0-53.0) % RDW (11.5-15.5) % Plt Count (150-450) k/uL Neutrophils # (1.3-7.7) k/uL Lymphocytes # (1.0-4.8) k/uL Monocytes # (0-1.0) k/uL PT (9.0-12.0) sec INR (<1.2) APTT (22.0-30.0) sec ABG pO2 125 H (83-108) mmHg ABG Total CO2 26 H (19-24) mmol/L ABG O2 Saturation 99.2 H (94-97) % Chloride (98-107) mmol/L BUN (9-20) mg/dL Creatinine (0.66-1.25) mg/dL Glucose (74-99) mg/dL POC Glucose (mg/dL) 197 H (75-99) mg/dL Calcium (8.4-10.2) mg/dL Phosphorus (2.5-4.5) mg/dL Total Bilirubin (0.2-1.3) mg/dL AST (17-59) U/L ALT (21-72) U/L Alkaline Phosphatase (38-126) U/L CK-MB (CK-2) (0.0-2.4) ng/mL Total Protein (6.3-8.2) g/dL Albumin (3.5-5.0) g/dL HDL Cholesterol 12 L (40-60) mg/dL 11/27/17 11/27/17 11/27/17 Range/Units 04:45 06:00 06:50 WBC (3.8-10.6) k/uL RBC (4.30-5.90) m/uL Hgb (13.0-17.5) gm/dL Hct (39.0-53.0) % RDW (11.5-15.5) % Plt Count (150-450) k/uL Neutrophils # (1.3-7.7) k/uL Lymphocytes # (1.0-4.8) k/uL Monocytes # (0-1.0) k/uL PT (9.0-12.0) sec INR (<1.2) APTT (22.0-30.0) sec ABG pO2 (83-108) mmHg ABG Total CO2 (19-24) mmol/L ABG O2 Saturation (94-97) % Chloride (98-107) mmol/L BUN (9-20) mg/dL Creatinine (0.66-1.25) mg/dL Glucose (74-99) mg/dL POC Glucose (mg/dL) 193 H 195 H 172 H (75-99) mg/dL Calcium (8.4-10.2) mg/dL Phosphorus (2.5-4.5) mg/dL Total Bilirubin (0.2-1.3) mg/dL AST (17-59) U/L ALT (21-72) U/L Alkaline Phosphatase (38-126) U/L CK-MB (CK-2) (0.0-2.4) ng/mL Total Protein (6.3-8.2) g/dL Albumin (3.5-5.0) g/dL HDL Cholesterol (40-60) mg/dL 11/27/17 11/27/17 11/27/17 Range/Units 08:10 08:56 09:50 WBC (3.8-10.6) k/uL RBC (4.30-5.90) m/uL Hgb (13.0-17.5) gm/dL Hct (39.0-53.0) % RDW (11.5-15.5) % Plt Count (150-450) k/uL Neutrophils # (1.3-7.7) k/uL Lymphocytes # (1.0-4.8) k/uL Monocytes # (0-1.0) k/uL PT (9.0-12.0) sec INR (<1.2) APTT (22.0-30.0) sec ABG pO2 (83-108) mmHg ABG Total CO2 (19-24) mmol/L ABG O2 Saturation (94-97) % Chloride (98-107) mmol/L BUN (9-20) mg/dL Creatinine (0.66-1.25) mg/dL Glucose (74-99) mg/dL POC Glucose (mg/dL) 167 H 202 H 190 H (75-99) mg/dL Calcium (8.4-10.2) mg/dL Phosphorus (2.5-4.5) mg/dL Total Bilirubin (0.2-1.3) mg/dL AST (17-59) U/L ALT (21-72) U/L Alkaline Phosphatase (38-126) U/L CK-MB (CK-2) (0.0-2.4) ng/mL Total Protein (6.3-8.2) g/dL Albumin (3.5-5.0) g/dL HDL Cholesterol (40-60) mg/dL 11/27/17 Range/Units 10:57 WBC (3.8-10.6) k/uL RBC (4.30-5.90) m/uL Hgb (13.0-17.5) gm/dL Hct (39.0-53.0) % RDW (11.5-15.5) % Plt Count (150-450) k/uL Neutrophils # (1.3-7.7) k/uL Lymphocytes # (1.0-4.8) k/uL Monocytes # (0-1.0) k/uL PT (9.0-12.0) sec INR (<1.2) APTT (22.0-30.0) sec ABG pO2 (83-108) mmHg ABG Total CO2 (19-24) mmol/L ABG O2 Saturation (94-97) % Chloride (98-107) mmol/L BUN (9-20) mg/dL Creatinine (0.66-1.25) mg/dL Glucose (74-99) mg/dL POC Glucose (mg/dL) 193 H (75-99) mg/dL Calcium (8.4-10.2) mg/dL Phosphorus (2.5-4.5) mg/dL Total Bilirubin (0.2-1.3) mg/dL AST (17-59) U/L ALT (21-72) U/L Alkaline Phosphatase (38-126) U/L CK-MB (CK-2) (0.0-2.4) ng/mL Total Protein (6.3-8.2) g/dL Albumin (3.5-5.0) g/dL HDL Cholesterol (40-60) mg/dL Microbiology - Last 24 Hours (Table) 11/24/17 20:30 Gram Stain - Preliminary Sputum Sputum Culture - Preliminary Klebsiella oxytoca 11/24/17 10:25 Blood Culture - Preliminary Blood No Growth after 48 hours 11/24/17 10:51 Blood Culture - Preliminary Blood No Growth after 48 hours Assessment and Plan Assessment: 1. Status post mitral valve repair. 2. Acute respiratory failure with hypoxia. 3. Acute encephalopathy. 4. Leukocytosis. 5. Profound hypotension requiring vasopressors. 6. Ischemic cardiomyopathy. 7. Uncontrolled diabetes. 8. Shock liver. 9. Acute kidney injury on chronic kidney disease. 10. Thrombocytopenia. 11. Atrial fibrillation Would continue supportive care wean off ventilator when appropriate by critical care we will continue following up on cultures and we will discuss CODE STATUS with family.
[2017-11-27 11:58] LABS: Glucose,Whole Blood 181 mg/dL (75-99)
[2017-11-27 12:54] LABS: Glucose,Whole Blood 145 mg/dL (75-99)
[2017-11-27] MEDS: INSULIN REGULAR 100 UNIT in SODIUM CHLORIDE 0.9% 100 ML IV SCH (12:57)
[2017-11-27 14:12] LABS: Glucose,Whole Blood 142 mg/dL (75-99)
[2017-11-27 15:10] LABS: Glucose,Whole Blood 142 mg/dL (75-99)
[2017-11-27 16:07] LABS: Glucose,Whole Blood 128 mg/dL (75-99)
--- NOTE | 2017-11-27 16:42 | P.PN ---
Subjective Progress Note Date: 11/27/17 Principal diagnosis: Thrombocytopenia, shock liver, CAD Plt and INR slowly improving. LFT's also slowly downtrending. No bleeding. Not responsive. Off sedation. Objective - Vital Signs Vital signs: Vital Signs Temp 97.8 F 11/27/17 08:00 Pulse 120 H 11/27/17 12:14 Resp 30 H 11/27/17 10:00 BP 96/53 11/26/17 19:00 Pulse Ox 97 11/27/17 10:00 Intake & Output 11/26/17 11/27/17 11/27/17 18:59 06:59 18:59 Intake Total 7308.437 8342.219 449.046 Output Total 1010 1185 675 Balance 58.664 937.219 -225.954 Weight 85.4 kg 85.9 kg 85.9 kg Intake: IV 209.2 977.8 232.4 Milrinone-D5W 55.2 59.8 18.4 Pressure Bags 72 78 24 Sodium Chloride 0.9% 1, 840 190 000 ml @ 40 mls/hr IV . Q24H JANNA Rx#:[id number] Sodium Chloride 0.9% 1, 70 000 ml @ 70 mls/hr IV . [id number] JANNA Rx#:[id number] Sodium Chloride 0.9% 99 12 ml @ 0.03 UNITS/MIN 9 mls /hr IV .[id number] JANNA with Vasopressin 20 unit Rx#: [id number] Intake, IV Titration 343.464 340.419 90.646 Amount Insulin Regular 100 unit 43.840 29.245 23.362 In Sodium Chloride 0.9% 100 ml @ Per Protocol IV .Q0M JANNA Rx#:[id number] Milrinone-D5w Pmx 20 mg 100 In Dextrose/Water 1 100ml .bag @ 0.2 MCG/KG/MIN 4. 66 mls/hr IV .[id number] JANNA Rx#:[id number] Norepinephrine 16 mg In 127.495 86.928 44.094 Dextrose 5% in Water 250 ml @ Titrate IV .Q0M JANNA Rx#:[id number] Propofol 1,000 mg In 172.129 124.246 23.19 Empty Bag 1 bag @ Titrate IV .Q0M JANNA Rx#: [id number] Tube Feeding 336 714 126 Other 180 90 Output: Chest Tube Drainage 120 290 130 left pleural 40 140 30 right pleural 80 150 100 Urine 890 895 545 Other: Voiding Method Indwelling Catheter Indwelling Catheter Indwelling Catheter ABP, PAP, CO, CI - Last Documented Arterial Blood Pressure 144/58 Pulmonary Artery Pressure 40/15 Cardiac Output 5.0 Cardiac Index 2.7 - Exam General: In no acute distress. Not responsive. Intubated, off sedation. Anasarca. HEENT: Scleral icterus. Mucosa moist. Neck: Neck supple. Lungs: Intubated. Heart: Regular rate. Bilateral 3+ LE pitting edema. Abdomen: Soft, nontender. MSK: Not resonding. Neuro: Not responding to stimuli. Opening eyes spontaneously although without purpose. Skin: No jaundice or rash. Psych: Unresponsive. - Labs CBC & Chem 7: 11/27/17 04:05 11/27/17 04:05 Labs: Abnormal Lab Results - Last 24 Hours (Table) 11/26/17 11/26/17 11/26/17 Range/Units 16:08 16:53 18:01 WBC (3.8-10.6) k/uL RBC (4.30-5.90) m/uL Hgb (13.0-17.5) gm/dL Hct (39.0-53.0) % RDW (11.5-15.5) % Plt Count (150-450) k/uL Neutrophils # (1.3-7.7) k/uL Lymphocytes # (1.0-4.8) k/uL Monocytes # (0-1.0) k/uL PT (9.0-12.0) sec INR (<1.2) APTT (22.0-30.0) sec ABG pO2 (83-108) mmHg ABG Total CO2 (19-24) mmol/L ABG O2 Saturation (94-97) % Chloride (98-107) mmol/L BUN (9-20) mg/dL Creatinine (0.66-1.25) mg/dL Glucose (74-99) mg/dL POC Glucose (mg/dL) 145 H 148 H 156 H (75-99) mg/dL Calcium (8.4-10.2) mg/dL Phosphorus (2.5-4.5) mg/dL Total Bilirubin (0.2-1.3) mg/dL AST (17-59) U/L ALT (21-72) U/L Alkaline Phosphatase (38-126) U/L Ammonia (<30) umol/L CK-MB (CK-2) (0.0-2.4) ng/mL Total Protein (6.3-8.2) g/dL Albumin (3.5-5.0) g/dL HDL Cholesterol (40-60) mg/dL 11/26/17 11/26/17 11/26/17 Range/Units 18:50 19:55 21:08 WBC (3.8-10.6) k/uL RBC (4.30-5.90) m/uL Hgb (13.0-17.5) gm/dL Hct (39.0-53.0) % RDW (11.5-15.5) % Plt Count (150-450) k/uL Neutrophils # (1.3-7.7) k/uL Lymphocytes # (1.0-4.8) k/uL Monocytes # (0-1.0) k/uL PT (9.0-12.0) sec INR (<1.2) APTT (22.0-30.0) sec ABG pO2 (83-108) mmHg ABG Total CO2 (19-24) mmol/L ABG O2 Saturation (94-97) % Chloride (98-107) mmol/L BUN (9-20) mg/dL Creatinine (0.66-1.25) mg/dL Glucose (74-99) mg/dL POC Glucose (mg/dL) 174 H 162 H 149 H (75-99) mg/dL Calcium (8.4-10.2) mg/dL Phosphorus (2.5-4.5) mg/dL Total Bilirubin (0.2-1.3) mg/dL AST (17-59) U/L ALT (21-72) U/L Alkaline Phosphatase (38-126) U/L Ammonia (<30) umol/L CK-MB (CK-2) (0.0-2.4) ng/mL Total Protein (6.3-8.2) g/dL Albumin (3.5-5.0) g/dL HDL Cholesterol (40-60) mg/dL 11/26/17 11/26/17 11/26/17 Range/Units 21:53 23:06 23:53 WBC (3.8-10.6) k/uL RBC (4.30-5.90) m/uL Hgb (13.0-17.5) gm/dL Hct (39.0-53.0) % RDW (11.5-15.5) % Plt Count (150-450) k/uL Neutrophils # (1.3-7.7) k/uL Lymphocytes # (1.0-4.8) k/uL Monocytes # (0-1.0) k/uL PT (9.0-12.0) sec INR (<1.2) APTT (22.0-30.0) sec ABG pO2 (83-108) mmHg ABG Total CO2 (19-24) mmol/L ABG O2 Saturation (94-97) % Chloride (98-107) mmol/L BUN (9-20) mg/dL Creatinine (0.66-1.25) mg/dL Glucose (74-99) mg/dL POC Glucose (mg/dL) 137 H 129 H 129 H (75-99) mg/dL Calcium (8.4-10.2) mg/dL Phosphorus (2.5-4.5) mg/dL Total Bilirubin (0.2-1.3) mg/dL AST (17-59) U/L ALT (21-72) U/L Alkaline Phosphatase (38-126) U/L Ammonia (<30) umol/L CK-MB (CK-2) (0.0-2.4) ng/mL Total Protein (6.3-8.2) g/dL Albumin (3.5-5.0) g/dL HDL Cholesterol (40-60) mg/dL 11/27/17 11/27/17 11/27/17 Range/Units 01:08 01:59 02:45 WBC (3.8-10.6) k/uL RBC (4.30-5.90) m/uL Hgb (13.0-17.5) gm/dL Hct (39.0-53.0) % RDW (11.5-15.5) % Plt Count (150-450) k/uL Neutrophils # (1.3-7.7) k/uL Lymphocytes # (1.0-4.8) k/uL Monocytes # (0-1.0) k/uL PT (9.0-12.0) sec INR (<1.2) APTT (22.0-30.0) sec ABG pO2 (83-108) mmHg ABG Total CO2 (19-24) mmol/L ABG O2 Saturation (94-97) % Chloride (98-107) mmol/L BUN (9-20) mg/dL Creatinine (0.66-1.25) mg/dL Glucose (74-99) mg/dL POC Glucose (mg/dL) 142 H 151 H 136 H (75-99) mg/dL Calcium (8.4-10.2) mg/dL Phosphorus (2.5-4.5) mg/dL Total Bilirubin (0.2-1.3) mg/dL AST (17-59) U/L ALT (21-72) U/L Alkaline Phosphatase (38-126) U/L Ammonia (<30) umol/L CK-MB (CK-2) (0.0-2.4) ng/mL Total Protein (6.3-8.2) g/dL Albumin (3.5-5.0) g/dL HDL Cholesterol (40-60) mg/dL 11/27/17 11/27/17 11/27/17 Range/Units 04:05 04:05 04:05 WBC 20.1 H (3.8-10.6) k/uL RBC 2.50 L (4.30-5.90) m/uL Hgb 7.3 L (13.0-17.5) gm/dL Hct 22.6 L (39.0-53.0) % RDW 17.9 H (11.5-15.5) % Plt Count 79 L (150-450) k/uL Neutrophils # 18.0 H (1.3-7.7) k/uL Lymphocytes # 0.4 L (1.0-4.8) k/uL Monocytes # 1.1 H (0-1.0) k/uL PT 13.1 H (9.0-12.0) sec INR 1.4 H (<1.2) APTT 31.6 H (22.0-30.0) sec ABG pO2 (83-108) mmHg ABG Total CO2 (19-24) mmol/L ABG O2 Saturation (94-97) % Chloride 108 H (98-107) mmol/L BUN 119 H* (9-20) mg/dL Creatinine 1.90 H (0.66-1.25) mg/dL Glucose 165 H (74-99) mg/dL POC Glucose (mg/dL) (75-99) mg/dL Calcium 7.8 L (8.4-10.2) mg/dL Phosphorus 4.7 H (2.5-4.5) mg/dL Total Bilirubin 5.6 H (0.2-1.3) mg/dL AST 285 H (17-59) U/L ALT 357 H (21-72) U/L Alkaline Phosphatase 137 H (38-126) U/L Ammonia (<30) umol/L CK-MB (CK-2) (0.0-2.4) ng/mL Total Protein 5.1 L (6.3-8.2) g/dL Albumin 2.4 L (3.5-5.0) g/dL HDL Cholesterol (40-60) mg/dL 11/27/17 11/27/17 11/27/17 Range/Units 04:05 04:05 04:19 WBC (3.8-10.6) k/uL RBC (4.30-5.90) m/uL Hgb (13.0-17.5) gm/dL Hct (39.0-53.0) % RDW (11.5-15.5) % Plt Count (150-450) k/uL Neutrophils # (1.3-7.7) k/uL Lymphocytes # (1.0-4.8) k/uL Monocytes # (0-1.0) k/uL PT (9.0-12.0) sec INR (<1.2) APTT (22.0-30.0) sec ABG pO2 (83-108) mmHg ABG Total CO2 (19-24) mmol/L ABG O2 Saturation (94-97) % Chloride (98-107) mmol/L BUN (9-20) mg/dL Creatinine (0.66-1.25) mg/dL Glucose (74-99) mg/dL POC Glucose (mg/dL) 197 H (75-99) mg/dL Calcium (8.4-10.2) mg/dL Phosphorus (2.5-4.5) mg/dL Total Bilirubin (0.2-1.3) mg/dL AST (17-59) U/L ALT (21-72) U/L Alkaline Phosphatase (38-126) U/L Ammonia (<30) umol/L CK-MB (CK-2) 8.4 H* (0.0-2.4) ng/mL Total Protein (6.3-8.2) g/dL Albumin (3.5-5.0) g/dL HDL Cholesterol 12 L (40-60) mg/dL 11/27/17 11/27/17 11/27/17 Range/Units 04:36 04:45 06:00 WBC (3.8-10.6) k/uL RBC (4.30-5.90) m/uL Hgb (13.0-17.5) gm/dL Hct (39.0-53.0) % RDW (11.5-15.5) % Plt Count (150-450) k/uL Neutrophils # (1.3-7.7) k/uL Lymphocytes # (1.0-4.8) k/uL Monocytes # (0-1.0) k/uL PT (9.0-12.0) sec INR (<1.2) APTT (22.0-30.0) sec ABG pO2 125 H (83-108) mmHg ABG Total CO2 26 H (19-24) mmol/L ABG O2 Saturation 99.2 H (94-97) % Chloride (98-107) mmol/L BUN (9-20) mg/dL Creatinine (0.66-1.25) mg/dL Glucose (74-99) mg/dL POC Glucose (mg/dL) 193 H 195 H (75-99) mg/dL Calcium (8.4-10.2) mg/dL Phosphorus (2.5-4.5) mg/dL Total Bilirubin (0.2-1.3) mg/dL AST (17-59) U/L ALT (21-72) U/L Alkaline Phosphatase (38-126) U/L Ammonia (<30) umol/L CK-MB (CK-2) (0.0-2.4) ng/mL Total Protein (6.3-8.2) g/dL Albumin (3.5-5.0) g/dL HDL Cholesterol (40-60) mg/dL 11/27/17 11/27/17 11/27/17 Range/Units 06:50 08:10 08:56 WBC (3.8-10.6) k/uL RBC (4.30-5.90) m/uL Hgb (13.0-17.5) gm/dL Hct (39.0-53.0) % RDW (11.5-15.5) % Plt Count (150-450) k/uL Neutrophils # (1.3-7.7) k/uL Lymphocytes # (1.0-4.8) k/uL Monocytes # (0-1.0) k/uL PT (9.0-12.0) sec INR (<1.2) APTT (22.0-30.0) sec ABG pO2 (83-108) mmHg ABG Total CO2 (19-24) mmol/L ABG O2 Saturation (94-97) % Chloride (98-107) mmol/L BUN (9-20) mg/dL Creatinine (0.66-1.25) mg/dL Glucose (74-99) mg/dL POC Glucose (mg/dL) 172 H 167 H 202 H (75-99) mg/dL Calcium (8.4-10.2) mg/dL Phosphorus (2.5-4.5) mg/dL Total Bilirubin (0.2-1.3) mg/dL AST (17-59) U/L ALT (21-72) U/L Alkaline Phosphatase (38-126) U/L Ammonia (<30) umol/L CK-MB (CK-2) (0.0-2.4) ng/mL Total Protein (6.3-8.2) g/dL Albumin (3.5-5.0) g/dL HDL Cholesterol (40-60) mg/dL 11/27/17 11/27/17 11/27/17 Range/Units 09:50 10:57 11:55 WBC (3.8-10.6) k/uL RBC (4.30-5.90) m/uL Hgb (13.0-17.5) gm/dL Hct (39.0-53.0) % RDW (11.5-15.5) % Plt Count (150-450) k/uL Neutrophils # (1.3-7.7) k/uL Lymphocytes # (1.0-4.8) k/uL Monocytes # (0-1.0) k/uL PT (9.0-12.0) sec INR (<1.2) APTT (22.0-30.0) sec ABG pO2 (83-108) mmHg ABG Total CO2 (19-24) mmol/L ABG O2 Saturation (94-97) % Chloride (98-107) mmol/L BUN (9-20) mg/dL Creatinine (0.66-1.25) mg/dL Glucose (74-99) mg/dL POC Glucose (mg/dL) 190 H 193 H 181 H (75-99) mg/dL Calcium (8.4-10.2) mg/dL Phosphorus (2.5-4.5) mg/dL Total Bilirubin (0.2-1.3) mg/dL AST (17-59) U/L ALT (21-72) U/L Alkaline Phosphatase (38-126) U/L Ammonia (<30) umol/L CK-MB (CK-2) (0.0-2.4) ng/mL Total Protein (6.3-8.2) g/dL Albumin (3.5-5.0) g/dL HDL Cholesterol (40-60) mg/dL 11/27/17 11/27/17 11/27/17 Range/Units 12:00 12:54 14:09 WBC (3.8-10.6) k/uL RBC (4.30-5.90) m/uL Hgb (13.0-17.5) gm/dL Hct (39.0-53.0) % RDW (11.5-15.5) % Plt Count (150-450) k/uL Neutrophils # (1.3-7.7) k/uL Lymphocytes # (1.0-4.8) k/uL Monocytes # (0-1.0) k/uL PT (9.0-12.0) sec INR (<1.2) APTT (22.0-30.0) sec ABG pO2 (83-108) mmHg ABG Total CO2 (19-24) mmol/L ABG O2 Saturation (94-97) % Chloride (98-107) mmol/L BUN (9-20) mg/dL Creatinine (0.66-1.25) mg/dL Glucose (74-99) mg/dL POC Glucose (mg/dL) 145 H 142 H (75-99) mg/dL Calcium (8.4-10.2) mg/dL Phosphorus (2.5-4.5) mg/dL Total Bilirubin (0.2-1.3) mg/dL AST (17-59) U/L ALT (21-72) U/L Alkaline Phosphatase (38-126) U/L Ammonia 37 H (<30) umol/L CK-MB (CK-2) (0.0-2.4) ng/mL Total Protein (6.3-8.2) g/dL Albumin (3.5-5.0) g/dL HDL Cholesterol (40-60) mg/dL Microbiology - Last 24 Hours (Table) 11/24/17 10:25 Blood Culture - Preliminary Blood No Growth after 72 hours 11/24/17 10:51 Blood Culture - Preliminary Blood No Growth after 72 hours 11/24/17 20:30 Gram Stain - Preliminary Sputum Sputum Culture - Preliminary Klebsiella oxytoca Assessment and Plan Assessment: 1. Thrombocytopenia, due to shock liver and consumption 2. Normocytic anemia 3. Coagulopathy, due to shock liver 4. Shock liver with improving transaminitis 5. Cardiogenic shock 6. Ischemic cardiomyopathy 7. MARIAA Plan: Mr. Silva is a 72 yo male who presents for intra-aortic balloon pump in preparation for CABG, s/p CABG and MV repair, currently in shock, on pressors, with slowly improving shock liver and MARIAA. Coagulopathy and cytopenia's, likely due to liver dysfunction and consumption. s/p Vit K. On antiplatelet therapy without active bleeding. Plt slowly improving, currently 79. INR also improved, at 1.4 today. Continue to monitor CBC and coag's daily. Continue anticoagulation/antiplatelet therapy as per cardiology and transfuse to maintain platelets >50. No vitamin K today as PT and PTT improved. No active bleeding. Transfuse pRBC for Hgb <7. Continue management of other comorbidities as per other teams.
[2017-11-27 17:04] LABS: Glucose,Whole Blood 121 mg/dL (75-99)
[2017-11-27 18:21] LABS: Glucose,Whole Blood 135 mg/dL (75-99)
[2017-11-27 18:55] LABS: Glucose,Whole Blood 137 mg/dL (75-99)
[2017-11-27 20:14] LABS: Glucose,Whole Blood 149 mg/dL (75-99)
[2017-11-27] MEDS: ATORVASTATIN 40 MG TAB PO SCH (20:22)
[2017-11-27] MEDS: ERYTHROMYCIN 5 MG/GM OPHTH OINT 3.5 GM TUBE LEFT EYE SCH (20:22)
[2017-11-27] MEDS: prednisoLONE ACETATE 1% OPHTH DROPS 5 ML BTL LEFT EYE SCH (20:23)
[2017-11-27] MEDS: MELATONIN 5 MG TABLET PO SCH (20:23)
[2017-11-27] MEDS: SENNOSIDES-DOCUSATE SODIUM 1 EACH TAB PO SCH (20:24)
[2017-11-27 21:19] LABS: Glucose,Whole Blood 148 mg/dL (75-99)
--- NOTE | 2017-11-27 22:16 | PN ---
PROGRESS NOTE This patient's vital signs and laboratory data over the last 24 hours reviewed. The patient remains intubated, but hemodynamically stable. The patient now appears to be in atrial flutter/fibrillation. Heart rate is 100-120 per minute. The temperature is 98.1, respiratory rate is 25. First and second heart sounds are normal. Lungs reveal bilateral basal crackles. The patient's urine output was 1375 mL during the night. The patient's hemoglobin is 7.3, white count remains elevated. The patient's creatinine is 1.90. We will continue the patient on current medical treatment. Patient's prognosis still remains guarded. Sputum cultures show evidence of gram-negative organisms. We will get a procalcitonin to rule out any significant sepsis. MMODL / IJN: [id number] /
[2017-11-27 22:34] LABS: Glucose,Whole Blood 133 mg/dL (75-99)
[2017-11-27 23:19] LABS: Glucose,Whole Blood 139 mg/dL (75-99)
[2017-11-28 00:18] LABS: Glucose,Whole Blood 148 mg/dL (75-99)
[2017-11-28 01:05] LABS: Glucose,Whole Blood 150 mg/dL (75-99)
[2017-11-28 03:15] LABS: Glucose,Whole Blood 149 mg/dL (75-99)
[2017-11-28 04:42] LABS: Anisocytosis Slight; Basophils % (A) 0 %; Eosinophils % (A) 0 %; HGB 7.4 gm/dL (13.0-17.5); Hypochromasia Slight; Lymphocytes # (A) 0.4 k/uL (1.0-4.8); Lymphocytes % (A) 2 %; MCH 29.3 pg (25.0-35.0); MCV 91.5 fL (80.0-100.0); Mean Platelet Volume 10.1; Monocytes # (A) 0.7 k/uL (0-1.0); Monocytes % (A) 3 %; Neutrophils # (A) 18.6 k/uL (1.3-7.7); Neutrophils % (A) 91 %; RBC 2.52 m/uL (4.30-5.90); RDW 19.6 % (11.5-15.5); WBC 20.4 k/uL (3.8-10.6)
[2017-11-28 04:46] LABS: INR 1.3 (<1.2); Partial Thromboplastin Time 36.6 sec (22.0-30.0); Prothrombin Time 12.2 sec (9.0-12.0)
[2017-11-28 04:47] LABS: Platelet Count 95 k/uL (150-450)
[2017-11-28 04:59] LABS: Albumin 2.3 g/dL (3.5-5.0); Calcium 7.8 mg/dL (8.4-10.2); Magnesium 2.2 mg/dL (1.6-2.3); Phosphorus 4.1 mg/dL (2.5-4.5); Potassium 3.8 mmol/L (3.5-5.1); Total Bilirubin 4.3 mg/dL (0.2-1.3); Total Protein 5.1 g/dL (6.3-8.2)
[2017-11-28 05:00] LABS: Glucose,Whole Blood 144 mg/dL (75-99)
[2017-11-28] MEDS: MILRINONE-D5W PMX 20 MG in DEXTROSE/WATER 1 100ML.BAG IV SCH (05:00)
[2017-11-28 05:35] LABS: ABG HCO3 25 mmol/L (21-25); ABG Oxygen Saturation 98.9 % (94-97); ABG PCO2 39 mmHg (35-45); ABG PH 7.42 (7.35-7.45); ABG PO2 152 mmHg (83-108)
[2017-11-28] MEDS ORDERED: POTASSIUM BICARBONATE/CIT AC 20 MEQ TABLET.EFF NG-TUBE SCH (06:00)
[2017-11-28 06:12] LABS: Ionized Calcium 4.7 mg/dL (4.5-5.3)
--- NOTE | 2017-11-28 07:01 | XR ---
EXAMINATION TYPE: XR chest 1V portable DATE OF EXAM: 11/28/2017 HISTORY: Tube placement. REFERENCE: Previous study dated 11/27/2017. FINDINGS: There has been a midline sternotomy. The patient is ET tube, NG tube and left internal jugu lar catheter remain in place, unchanged in appearance. There is a right and left pleural drain in luis ce. The heart is enlarged. There is left basilar airspace disease. There are small, bilateral effusions. IMPRESSION: CONTINUING POSTOPERATIVE CHANGE.
[2017-11-28 07:03] LABS: Glucose,Whole Blood 149 mg/dL (75-99)
[2017-11-28] MEDS: IPRATROPIUM-ALBUTEROL 3 ML NEB INHALATION SCH ×4 (07:19→20:08)
[2017-11-28] MEDS ORDERED: CALCIUM CHLORIDE 1,000 MG in SODIUM CHLORIDE 0.9% 100 ML IVPB STA (07:54)
[2017-11-28] MEDS: ASCORBIC ACID 500 MG TAB PO SCH ×2 (08:06→16:30)
[2017-11-28] MEDS: FERROUS SULFATE 325 MG TAB PO SCH ×2 (08:06→16:33)
[2017-11-28] MEDS: MIDODRINE 5 MG TAB PO SCH ×3 (08:07→16:30)
[2017-11-28] MEDS: SERTRALINE 25 MG TAB PO SCH (08:07)
[2017-11-28] MEDS: HEPARIN SODIUM,PORCINE 5,000 UNIT/ML 1 ML VIAL SQ SCH ×2 (08:07→15:15)
[2017-11-28] MEDS: PIPERACILLIN-TAZOBACTAM 3.375 GM in DEXTROSE/WATER 1 50ML.BAG IVPB SCH ×2 (08:07→15:15)
[2017-11-28] MEDS: AMIODARONE 200 MG TAB PO SCH ×2 (08:07→21:48)
[2017-11-28] MEDS: METOPROLOL TARTRATE 12.5 MG TAB PO SCH ×2 (08:07→21:48)
[2017-11-28] MEDS: ASPIRIN 81 MG PO SCH (08:07)
[2017-11-28 08:11] LABS: Glucose,Whole Blood 152 mg/dL (75-99)
[2017-11-28] MEDS: CHLORHEXIDINE GLUCONATE 15 ML CUP MUCOUS MEM SCH ×2 (08:12→21:49)
[2017-11-28] MEDS: PANTOPRAZOLE 40 MG/10 ML VIAL IVP SCH (08:12)
[2017-11-28] MEDS: CLOPIDOGREL 75 MG TAB PO SCH (08:13)
--- NOTE | 2017-11-28 09:24 | P.PN ---
Subjective Progress Note Date: 11/28/17 Principal diagnosis: Triple-vessel coronary artery disease. Severe ischemic cardiomyopathy. Moderate mitral valve regurgitation. Mild tricuspid valve regurgitation. Diabetes mellitus with preoperative hemoglobin A1c 6.7%. Hyperlipidemia. Moderate to severe restrictive lung disease with preoperative FEV1 43% of predicted. Evidence of diffuse calcific coronary artery disease. 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 Previous tobacco dependence. POD #12 placement of preoperative intra-aortic balloon pump POD #11 quadruple coronary artery bypass grafting using the left internal mammary artery to the left anterior descending artery, reverse saphenous vein graft from the aorta to the diagonal artery, reverse saphenous vein graft from the aorta to the first obtuse marginal artery, reverse saphenous vein graft from the aorta to the posterior descending artery. Mitral valve repair using a complete ring annuloplasty with a 30 mm Kapoor IMR ring. Exclusion of the left atrial appendage using a 35 mm Atriclip. Intraoperative transesophageal echocardiogram and epi-aortic scanning. Intraoperative graft flow measurements using the [employer] system. Post operative normocytic, normochromic anemia, an expected outcome of surgery. Postoperative thrombocytopenia, an expected outcome of surgery. Postoperative atrial fibrillation, an expected outcome of surgery. Postoperative elevated transaminases, an unexpected outcome of surgery, likely secondary to low flow state post surgery. Postoperative acute kidney injury, an unexpected outcome of surgery, likely secondary to low flow state post surgery. Postoperative acute metabolic acidosis, lactic acidosis, reintubation, an unexpected outcome. Postoperative cardiogenic shock, an unexpected outcome. The patient remains intubated, sedation put back last night on minimum dose secondary to increased respiratory rate in the 30s and 40s. He is withdrawing to painful stimuli, and this morning minimally nodded his head yes to questions appropriately as well as attempted to wiggle his toes to command. He remains on Primacor at 0.2 mcg/kg/min, levo currently at 2 mcg/kg, vaso has been off since yesterday evening and insulin drip. CVP has been 15. His urine output ranged from 50-100 mL/h overnight. His BUN this morning is 125, creatinine is down to 1.82. Liver enzymes continue to improve. Hemaglobin this morning is 7.4 from 7.3. White blood cell count has increased 20.4 from 20.1, currently on zosyn with sputum culture growing Klebsiella oxytoca, platelet count has increased. Arterial blood gases are stable. He is currently in afib with heart rate in the 1 teens to 120s. Cortisol level 29, was > 123 on 11/23, triglycerides 100, CK-MB 8.4, ammonia level 37. He is tolerating tube feedings with no residual. He remains critical but his clinical picture shows some improvement. Objective - Vital Signs Vital signs: Vital Signs Temp 97.7 F 11/28/17 04:00 Pulse 130 H 11/28/17 07:41 Resp 27 H 11/28/17 07:00 BP 101/58 11/28/17 06:15 Pulse Ox 99 11/28/17 07:00 Intake & Output 11/27/17 11/28/17 11/28/17 18:59 06:59 18:59 Intake Total 087.924 8702.585 461.065 Output Total 1105 1209 215 Balance -223.159 321.585 246.065 Weight 85.9 kg 84.8 kg Intake: IV 485.4 657.2 151.2 Milrinone-D5W 41.4 55.2 9.2 Piperacillin-Tazobactam 3 50 50 .375 gm In Dextrose/Water 1 50ml.bag @ 12.5 mls/hr IVPB Q8HR [facility] Rx#: [id number] Pressure Bags 54 72 12 Sodium Chloride 0.9% 1, 390 480 80 000 ml @ 40 mls/hr IV . Q24H [facility]AN[facility] Rx#:[id number] Intake, IV Titration 102.441 153.385 145.865 Amount Calcium Chloride 1,000 mg 100 In Sodium Chloride 0.9% 100 ml @ 100 mls/hr IVPB ONCE STA Rx#:[id number] Insulin Regular 100 unit 35.157 15.126 In Sodium Chloride 0.9% 100 ml @ Per Protocol IV .Q0M [facility] Rx#:[id number] Milrinone-D5w Pmx 20 mg 100 In Dextrose/Water 1 100ml .bag @ 0.2 MCG/KG/MIN 4. 66 mls/hr IV .[id number] [facility]ANNA Rx#:[id number] Norepinephrine 16 mg In 44.094 18.823 Dextrose 5% in Water 250 ml @ Titrate IV .Q0M [facility] Rx#:[id number] Propofol 1,000 mg In 23.19 19.436 45.865 Empty Bag 1 bag @ Titrate IV .Q0M [facility] Rx#: [id number] Tube Feeding 294 630 84 Other 90 80 Output: Chest Tube Drainage 210 344 75 left pleural 60 134 35 right pleural 150 210 40 Urine 895 865 140 Other: Voiding Method Indwelling Catheter Indwelling Catheter ABP, PAP, CO, CI - Last Documented Arterial Blood Pressure 98/52 Pulmonary Artery Pressure 40/15 Cardiac Output 5.0 Cardiac Index 2.7 - Constitutional Constitutional Comment(s): Remains minimally sedated on mechanical ventilation. General appearance: Present: no acute distress - Respiratory Details: Lungs sounds diminished bilaterally. Respirations even, nonlabored on mechanical ventilation. Current ventilator settings assist control mode, FiO2 35%, tidal volume 450, respiratory rate 14, PEEP 5. ABGs this morning 7.42/39/ 152/25/99%/1.0. 8.0 ET tube present, 25 at the lip. Left pleural chest tube to continuous wall suction, 100 mL serous drainage in the last 8 hours, 165 mL in 24 hours. Right pleural chest tube to continuous wall suction, 190 mL serous drainage in the last 8 hours, 430 mL in 24 hours. No air leaks present. - Cardiovascular Details: S1, S2 present. Irregular rate and rhythm, atrial fibrillation on telemetry. Sternum stable. A/V epicardial pacemaker wires present, grounded. Palpable peripheral pulses bilaterally. Bilateral lower extremity, scrotal edema present. Right radial arterial line, left brachial PICC line, left internal jugular triple-lumen central line present. CVP 15. Levo being titrated as needed to keep MAP > 65, currently at 2 mcg/kg, vasopressin has been off since yesterday evening, Primacor currently at 0.02 mcg/kg/min. Heart hugger, antiembolism stockings, SCDs present. - Gastrointestinal Gastrointestinal Comment(s): Abdomen soft, nontender, nondistended. Active bowel sounds present 4 quadrants. OG tube present, vital tube feedings infusing at 42 mL/h with no residual per nursing. Fecal management system present, yellowish brown liquid stool, occult blood positive, C. diff negative. - Genitourinary Genitourinary Comment(s): Fong present draining clear yellow urine. Output 50-100 mL/h overnight without diuretics. - Integumentary Integumentary Comment(s): Skin warm and dry, right great toe with blue spot likely from high-dose levo. Sternal incision well approximated and covered with dry intact dressing. Left lower extremity EVH site well approximated. Stage II pressure ulcer to coccyx, covered by Optisol foam dressing. - Neurologic Neurologic Comment(s): Remains on minimal sedation on mechanical ventilation. This morning did attempt to nod his head and wiggle his toes to command. - Musculoskeletal Musculoskeletal: Present: generalized weakness - Allied health notes Allied health notes reviewed: nursing - Labs CBC & Chem 7: 11/28/17 04:20 11/28/17 04:20 Labs: Abnormal Lab Results - Last 24 Hours (Table) 11/27/17 11/27/17 11/27/17 Range/Units 04:05 04:05 09:50 WBC (3.8-10.6) k/uL RBC (4.30-5.90) m/uL Hgb (13.0-17.5) gm/dL Hct (39.0-53.0) % RDW (11.5-15.5) % Plt Count (150-450) k/uL Neutrophils # (1.3-7.7) k/uL Lymphocytes # (1.0-4.8) k/uL PT (9.0-12.0) sec INR (<1.2) APTT (22.0-30.0) sec ABG pO2 (83-108) mmHg ABG O2 Saturation (94-97) % Chloride (98-107) mmol/L BUN (9-20) mg/dL Creatinine (0.66-1.25) mg/dL Glucose (74-99) mg/dL POC Glucose (mg/dL) 190 H (75-99) mg/dL Calcium (8.4-10.2) mg/dL Total Bilirubin (0.2-1.3) mg/dL AST (17-59) U/L ALT (21-72) U/L Alkaline Phosphatase (38-126) U/L Ammonia (<30) umol/L CK-MB (CK-2) 8.4 H* (0.0-2.4) ng/mL Total Protein (6.3-8.2) g/dL Albumin (3.5-5.0) g/dL HDL Cholesterol 12 L (40-60) mg/dL 11/27/17 11/27/17 11/27/17 Range/Units 10:57 11:55 12:00 WBC (3.8-10.6) k/uL RBC (4.30-5.90) m/uL Hgb (13.0-17.5) gm/dL Hct (39.0-53.0) % RDW (11.5-15.5) % Plt Count (150-450) k/uL Neutrophils # (1.3-7.7) k/uL Lymphocytes # (1.0-4.8) k/uL PT (9.0-12.0) sec INR (<1.2) APTT (22.0-30.0) sec ABG pO2 (83-108) mmHg ABG O2 Saturation (94-97) % Chloride (98-107) mmol/L BUN (9-20) mg/dL Creatinine (0.66-1.25) mg/dL Glucose (74-99) mg/dL POC Glucose (mg/dL) 193 H 181 H (75-99) mg/dL Calcium (8.4-10.2) mg/dL Total Bilirubin (0.2-1.3) mg/dL AST (17-59) U/L ALT (21-72) U/L Alkaline Phosphatase (38-126) U/L Ammonia 37 H (<30) umol/L CK-MB (CK-2) (0.0-2.4) ng/mL Total Protein (6.3-8.2) g/dL Albumin (3.5-5.0) g/dL HDL Cholesterol (40-60) mg/dL 11/27/17 11/27/17 11/27/17 Range/Units 12:54 14:09 15:09 WBC (3.8-10.6) k/uL RBC (4.30-5.90) m/uL Hgb (13.0-17.5) gm/dL Hct (39.0-53.0) % RDW (11.5-15.5) % Plt Count (150-450) k/uL Neutrophils # (1.3-7.7) k/uL Lymphocytes # (1.0-4.8) k/uL PT (9.0-12.0) sec INR (<1.2) APTT (22.0-30.0) sec ABG pO2 (83-108) mmHg ABG O2 Saturation (94-97) % Chloride (98-107) mmol/L BUN (9-20) mg/dL Creatinine (0.66-1.25) mg/dL Glucose (74-99) mg/dL POC Glucose (mg/dL) 145 H 142 H 142 H (75-99) mg/dL Calcium (8.4-10.2) mg/dL Total Bilirubin (0.2-1.3) mg/dL AST (17-59) U/L ALT (21-72) U/L Alkaline Phosphatase (38-126) U/L Ammonia (<30) umol/L CK-MB (CK-2) (0.0-2.4) ng/mL Total Protein (6.3-8.2) g/dL Albumin (3.5-5.0) g/dL HDL Cholesterol (40-60) mg/dL 11/27/17 11/27/17 11/27/17 Range/Units 16:05 17:03 18:19 WBC (3.8-10.6) k/uL RBC (4.30-5.90) m/uL Hgb (13.0-17.5) gm/dL Hct (39.0-53.0) % RDW (11.5-15.5) % Plt Count (150-450) k/uL Neutrophils # (1.3-7.7) k/uL Lymphocytes # (1.0-4.8) k/uL PT (9.0-12.0) sec INR (<1.2) APTT (22.0-30.0) sec ABG pO2 (83-108) mmHg ABG O2 Saturation (94-97) % Chloride (98-107) mmol/L BUN (9-20) mg/dL Creatinine (0.66-1.25) mg/dL Glucose (74-99) mg/dL POC Glucose (mg/dL) 128 H 121 H 135 H (75-99) mg/dL Calcium (8.4-10.2) mg/dL Total Bilirubin (0.2-1.3) mg/dL AST (17-59) U/L ALT (21-72) U/L Alkaline Phosphatase (38-126) U/L Ammonia (<30) umol/L CK-MB (CK-2) (0.0-2.4) ng/mL Total Protein (6.3-8.2) g/dL Albumin (3.5-5.0) g/dL HDL Cholesterol (40-60) mg/dL 11/27/17 11/27/17 11/27/17 Range/Units 18:51 20:12 21:17 WBC (3.8-10.6) k/uL RBC (4.30-5.90) m/uL Hgb (13.0-17.5) gm/dL Hct (39.0-53.0) % RDW (11.5-15.5) % Plt Count (150-450) k/uL Neutrophils # (1.3-7.7) k/uL Lymphocytes # (1.0-4.8) k/uL PT (9.0-12.0) sec INR (<1.2) APTT (22.0-30.0) sec ABG pO2 (83-108) mmHg ABG O2 Saturation (94-97) % Chloride (98-107) mmol/L BUN (9-20) mg/dL Creatinine (0.66-1.25) mg/dL Glucose (74-99) mg/dL POC Glucose (mg/dL) 137 H 149 H 148 H (75-99) mg/dL Calcium (8.4-10.2) mg/dL Total Bilirubin (0.2-1.3) mg/dL AST (17-59) U/L ALT (21-72) U/L Alkaline Phosphatase (38-126) U/L Ammonia (<30) umol/L CK-MB (CK-2) (0.0-2.4) ng/mL Total Protein (6.3-8.2) g/dL Albumin (3.5-5.0) g/dL HDL Cholesterol (40-60) mg/dL 11/27/17 11/27/17 11/28/17 Range/Units 22:32 23:17 00:15 WBC (3.8-10.6) k/uL RBC (4.30-5.90) m/uL Hgb (13.0-17.5) gm/dL Hct (39.0-53.0) % RDW (11.5-15.5) % Plt Count (150-450) k/uL Neutrophils # (1.3-7.7) k/uL Lymphocytes # (1.0-4.8) k/uL PT (9.0-12.0) sec INR (<1.2) APTT (22.0-30.0) sec ABG pO2 (83-108) mmHg ABG O2 Saturation (94-97) % Chloride (98-107) mmol/L BUN (9-20) mg/dL Creatinine (0.66-1.25) mg/dL Glucose (74-99) mg/dL POC Glucose (mg/dL) 133 H 139 H 148 H (75-99) mg/dL Calcium (8.4-10.2) mg/dL Total Bilirubin (0.2-1.3) mg/dL AST (17-59) U/L ALT (21-72) U/L Alkaline Phosphatase (38-126) U/L Ammonia (<30) umol/L CK-MB (CK-2) (0.0-2.4) ng/mL Total Protein (6.3-8.2) g/dL Albumin (3.5-5.0) g/dL HDL Cholesterol (40-60) mg/dL 11/28/17 11/28/17 11/28/17 Range/Units 01:02 03:13 04:20 WBC 20.4 H (3.8-10.6) k/uL RBC 2.52 L (4.30-5.90) m/uL Hgb 7.4 L (13.0-17.5) gm/dL Hct 23.0 L (39.0-53.0) % RDW 19.6 H (11.5-15.5) % Plt Count 95 L (150-450) k/uL Neutrophils # 18.6 H (1.3-7.7) k/uL Lymphocytes # 0.4 L (1.0-4.8) k/uL PT (9.0-12.0) sec INR (<1.2) APTT (22.0-30.0) sec ABG pO2 (83-108) mmHg ABG O2 Saturation (94-97) % Chloride (98-107) mmol/L BUN (9-20) mg/dL Creatinine (0.66-1.25) mg/dL Glucose (74-99) mg/dL POC Glucose (mg/dL) 150 H 149 H (75-99) mg/dL Calcium (8.4-10.2) mg/dL Total Bilirubin (0.2-1.3) mg/dL AST (17-59) U/L ALT (21-72) U/L Alkaline Phosphatase (38-126) U/L Ammonia (<30) umol/L CK-MB (CK-2) (0.0-2.4) ng/mL Total Protein (6.3-8.2) g/dL Albumin (3.5-5.0) g/dL HDL Cholesterol (40-60) mg/dL 11/28/17 11/28/17 11/28/17 Range/Units 04:20 04:20 04:58 WBC (3.8-10.6) k/uL RBC (4.30-5.90) m/uL Hgb (13.0-17.5) gm/dL Hct (39.0-53.0) % RDW (11.5-15.5) % Plt Count (150-450) k/uL Neutrophils # (1.3-7.7) k/uL Lymphocytes # (1.0-4.8) k/uL PT 12.2 H (9.0-12.0) sec INR 1.3 H (<1.2) APTT 36.6 H (22.0-30.0) sec ABG pO2 (83-108) mmHg ABG O2 Saturation (94-97) % Chloride 110 H (98-107) mmol/L BUN 125 H* (9-20) mg/dL Creatinine 1.82 H (0.66-1.25) mg/dL Glucose 131 H (74-99) mg/dL POC Glucose (mg/dL) 144 H (75-99) mg/dL Calcium 7.8 L (8.4-10.2) mg/dL Total Bilirubin 4.3 H (0.2-1.3) mg/dL AST 165 H (17-59) U/L ALT 269 H (21-72) U/L Alkaline Phosphatase 179 H (38-126) U/L Ammonia (<30) umol/L CK-MB (CK-2) (0.0-2.4) ng/mL Total Protein 5.1 L (6.3-8.2) g/dL Albumin 2.3 L (3.5-5.0) g/dL HDL Cholesterol (40-60) mg/dL 11/28/17 11/28/17 11/28/17 Range/Units 05:04 07:02 08:09 WBC (3.8-10.6) k/uL RBC (4.30-5.90) m/uL Hgb (13.0-17.5) gm/dL Hct (39.0-53.0) % RDW (11.5-15.5) % Plt Count (150-450) k/uL Neutrophils # (1.3-7.7) k/uL Lymphocytes # (1.0-4.8) k/uL PT (9.0-12.0) sec INR (<1.2) APTT (22.0-30.0) sec ABG pO2 152 H (83-108) mmHg ABG O2 Saturation 98.9 H (94-97) % Chloride (98-107) mmol/L BUN (9-20) mg/dL Creatinine (0.66-1.25) mg/dL Glucose (74-99) mg/dL POC Glucose (mg/dL) 149 H 152 H (75-99) mg/dL Calcium (8.4-10.2) mg/dL Total Bilirubin (0.2-1.3) mg/dL AST (17-59) U/L ALT (21-72) U/L Alkaline Phosphatase (38-126) U/L Ammonia (<30) umol/L CK-MB (CK-2) (0.0-2.4) ng/mL Total Protein (6.3-8.2) g/dL Albumin (3.5-5.0) g/dL HDL Cholesterol (40-60) mg/dL Microbiology - Last 24 Hours (Table) 11/24/17 20:30 Gram Stain - Final Sputum Sputum Culture - Final Klebsiella oxytoca 11/24/17 10:25 Blood Culture - Preliminary Blood No Growth after 72 hours 11/24/17 10:51 Blood Culture - Preliminary Blood No Growth after 72 hours - Imaging and Cardiology Chest x-ray: report reviewed, image reviewed Assessment and Plan (1) Congestive heart failure with cardiomyopathy Current Visit: Yes Status: Chronic Code(s): I50.9 - HEART FAILURE, UNSPECIFIED; I42.9 - CARDIOMYOPATHY, UNSPECIFIED SNOMED Code(s): 88598178 (2) Ischemic cardiomyopathy Current Visit: Yes Status: Chronic Code(s): I25.5 - ISCHEMIC CARDIOMYOPATHY SNOMED Code(s): 481356402 (3) Coronary artery disease Current Visit: Yes Status: Chronic Code(s): I25.10 - ATHSCL HEART DISEASE OF [place] CORONARY ARTERY W/O ANG PCTRS SNOMED Code(s): 94450464 (4) Diabetes mellitus Current Visit: Yes Status: Chronic Code(s): E11.9 - TYPE 2 DIABETES MELLITUS WITHOUT COMPLICATIONS SNOMED Code(s): 37277360 (5) Hyperlipidemia Current Visit: Yes Status: Chronic Code(s): E78.5 - HYPERLIPIDEMIA, UNSPECIFIED SNOMED Code(s): 95103756 (6) Mitral regurgitation Current Visit: Yes Status: Chronic Code(s): I34.0 - NONRHEUMATIC MITRAL ( VALVE) INSUFFICIENCY SNOMED Code(s): 38873839 (7) History of myocardial infarction Current Visit: No Status: Resolved Code(s): I25.2 - OLD MYOCARDIAL INFARCTION SNOMED Code(s): 857902892 (8) Tobacco dependence in remission Current Visit: No Status: Resolved Code(s): F17.201 - NICOTINE DEPENDENCE, UNSPECIFIED, IN REMISSION SNOMED Code(s): 092061155 Plan: 1. Continue low-dose aspirin, Plavix, subcu heparin. Monitor patient for bleeding. 2. Continue beta michelle. Will increase beta michelle when able. RN instructed to give despite pressor use. 3. Statin restarted as transaminases continued to decrease. 4. Continue amiodarone for A. fib prophylaxis. Will decrease to 200 mg daily on 11/30/17. 5. Wean levo as tolerated. Continue Primacor at 0.2 mcg/kg/min. Goal to keep mean arterial pressure greater than 65. 6. Calcium chloride IV ordered. 7. Continue tube feedings. Monitor for gastric residual. 8. No nephrotoxic, hepatotoxic agents. 9. Minimal IV fluids per nephrology. 10. Keep Fong catheter for strict accurate intake and output. Fong catheter changed yesterday. 11. Likely will discontinue left chest tube today. 12. Ventilator management, bronchodilators per pulmonology. 13. Minimal to no sedation today. Continue to assess neuro status. 14. Will monitor daily labs and x-rays. 15. Agree with Zosyn per pulmonology, sputum culture positive for Klebsiella oxytoca. Blood culture negative 48 hours, urine culture negative. 16. Pain control with current medication regimen. 17. GI/DVT prophylaxis. 18. C. diff negative, occult blood positive, will continue to monitor. Not safe to take off of aspirin, Plavix for any kind of endoscopy at this time. 19. Insulin drip/diabetic management per primary care service. 20. Continue full CODE STATUS. 21. Continued recommendations based on patient's progress. Time with Patient: Greater than 30
--- NOTE | 2017-11-28 09:42 | P.PN ---
Subjective Patient is seen in follow-up for acute kidney injury. Creatinine was greater than 3 on admission and is down to 1.82 today. Patient underwent CABG and mitral valve repair this admission. Ejection fraction is 30-35%. Hemoglobin 7.4 today. He is currently on 2 mics of Levophed. Also maintained on tube feeds. He is nonoliguric. Vital signs are stable. General: The patient appeared well nourished and normally developed. HEENT: Head exam is unremarkable. Neck is without jugular venous distension. LUNGS: Breath sounds decreased. HEART: Rate and Rhythm are regular. First and second heart sounds normal. No murmurs, rubs or gallops. ABDOMEN: Abdominal exam reveals normal bowel sounds. Non-tender and non- distended. No evidence of peritonitis. EXTREMITITES: Trace edema. Objective - Vital Signs Vital signs: Vital Signs Temp 97.7 F 11/28/17 04:00 Pulse 130 H 11/28/17 07:41 Resp 27 H 11/28/17 07:00 BP 101/58 11/28/17 06:15 Pulse Ox 99 11/28/17 07:00 Intake & Output 11/27/17 11/28/17 11/28/17 18:59 06:59 18:59 Intake Total 420.918 9184.585 461.065 Output Total 1105 1209 215 Balance -223.159 321.585 246.065 Weight 85.9 kg 84.8 kg Intake: IV 485.4 657.2 151.2 Milrinone-D5W 41.4 55.2 9.2 Piperacillin-Tazobactam 3 50 50 .375 gm In Dextrose/Water 1 50ml.bag @ 12.5 mls/hr IVPB Q8HR JANNA Rx#: [id number] Pressure Bags 54 72 12 Sodium Chloride 0.9% 1, 390 480 80 000 ml @ 40 mls/hr IV . Q24H JANNA Rx#:[id number] Intake, IV Titration 102.441 153.385 145.865 Amount Calcium Chloride 1,000 mg 100 In Sodium Chloride 0.9% 100 ml @ 100 mls/hr IVPB ONCE STA Rx#:[id number] Insulin Regular 100 unit 35.157 15.126 In Sodium Chloride 0.9% 100 ml @ Per Protocol IV .Q0M JANNA Rx#:[id number] Milrinone-D5w Pmx 20 mg 100 In Dextrose/Water 1 100ml .bag @ 0.2 MCG/KG/MIN 4. 66 mls/hr IV .[id number] JANNA Rx#:[id number] Norepinephrine 16 mg In 44.094 18.823 Dextrose 5% in Water 250 ml @ Titrate IV .Q0M JANNA Rx#:[id number] Propofol 1,000 mg In 23.19 19.436 45.865 Empty Bag 1 bag @ Titrate IV .Q0M JANNA Rx#: [id number] Tube Feeding 294 630 84 Other 90 80 Output: Chest Tube Drainage 210 344 75 left pleural 60 134 35 right pleural 150 210 40 Urine 895 865 140 Other: Voiding Method Indwelling Catheter Indwelling Catheter ABP, PAP, CO, CI - Last Documented Arterial Blood Pressure 98/52 Pulmonary Artery Pressure 40/15 Cardiac Output 5.0 Cardiac Index 2.7 - Labs CBC & Chem 7: 11/28/17 04:20 11/28/17 04:20 Labs: Abnormal Lab Results - Last 24 Hours (Table) 11/27/17 11/27/17 11/27/17 Range/Units 04:05 04:05 09:50 WBC (3.8-10.6) k/uL RBC (4.30-5.90) m/uL Hgb (13.0-17.5) gm/dL Hct (39.0-53.0) % RDW (11.5-15.5) % Plt Count (150-450) k/uL Neutrophils # (1.3-7.7) k/uL Lymphocytes # (1.0-4.8) k/uL PT (9.0-12.0) sec INR (<1.2) APTT (22.0-30.0) sec ABG pO2 (83-108) mmHg ABG O2 Saturation (94-97) % Chloride (98-107) mmol/L BUN (9-20) mg/dL Creatinine (0.66-1.25) mg/dL Glucose (74-99) mg/dL POC Glucose (mg/dL) 190 H (75-99) mg/dL Calcium (8.4-10.2) mg/dL Total Bilirubin (0.2-1.3) mg/dL AST (17-59) U/L ALT (21-72) U/L Alkaline Phosphatase (38-126) U/L Ammonia (<30) umol/L CK-MB (CK-2) 8.4 H* (0.0-2.4) ng/mL Total Protein (6.3-8.2) g/dL Albumin (3.5-5.0) g/dL HDL Cholesterol 12 L (40-60) mg/dL Procalcitonin (0.02-0.09) ng/mL 11/27/17 11/27/17 11/27/17 Range/Units 09:50 10:57 11:55 WBC (3.8-10.6) k/uL RBC (4.30-5.90) m/uL Hgb (13.0-17.5) gm/dL Hct (39.0-53.0) % RDW (11.5-15.5) % Plt Count (150-450) k/uL Neutrophils # (1.3-7.7) k/uL Lymphocytes # (1.0-4.8) k/uL PT (9.0-12.0) sec INR (<1.2) APTT (22.0-30.0) sec ABG pO2 (83-108) mmHg ABG O2 Saturation (94-97) % Chloride (98-107) mmol/L BUN (9-20) mg/dL Creatinine (0.66-1.25) mg/dL Glucose (74-99) mg/dL POC Glucose (mg/dL) 193 H 181 H (75-99) mg/dL Calcium (8.4-10.2) mg/dL Total Bilirubin (0.2-1.3) mg/dL AST (17-59) U/L ALT (21-72) U/L Alkaline Phosphatase (38-126) U/L Ammonia (<30) umol/L CK-MB (CK-2) (0.0-2.4) ng/mL Total Protein (6.3-8.2) g/dL Albumin (3.5-5.0) g/dL HDL Cholesterol (40-60) mg/dL Procalcitonin 1.79 H (0.02-0.09) ng/mL 11/27/17 11/27/17 11/27/17 Range/Units 12:00 12:54 14:09 WBC (3.8-10.6) k/uL RBC (4.30-5.90) m/uL Hgb (13.0-17.5) gm/dL Hct (39.0-53.0) % RDW (11.5-15.5) % Plt Count (150-450) k/uL Neutrophils # (1.3-7.7) k/uL Lymphocytes # (1.0-4.8) k/uL PT (9.0-12.0) sec INR (<1.2) APTT (22.0-30.0) sec ABG pO2 (83-108) mmHg ABG O2 Saturation (94-97) % Chloride (98-107) mmol/L BUN (9-20) mg/dL Creatinine (0.66-1.25) mg/dL Glucose (74-99) mg/dL POC Glucose (mg/dL) 145 H 142 H (75-99) mg/dL Calcium (8.4-10.2) mg/dL Total Bilirubin (0.2-1.3) mg/dL AST (17-59) U/L ALT (21-72) U/L Alkaline Phosphatase (38-126) U/L Ammonia 37 H (<30) umol/L CK-MB (CK-2) (0.0-2.4) ng/mL Total Protein (6.3-8.2) g/dL Albumin (3.5-5.0) g/dL HDL Cholesterol (40-60) mg/dL Procalcitonin (0.02-0.09) ng/mL 11/27/17 11/27/17 11/27/17 Range/Units 15:09 16:05 17:03 WBC (3.8-10.6) k/uL RBC (4.30-5.90) m/uL Hgb (13.0-17.5) gm/dL Hct (39.0-53.0) % RDW (11.5-15.5) % Plt Count (150-450) k/uL Neutrophils # (1.3-7.7) k/uL Lymphocytes # (1.0-4.8) k/uL PT (9.0-12.0) sec INR (<1.2) APTT (22.0-30.0) sec ABG pO2 (83-108) mmHg ABG O2 Saturation (94-97) % Chloride (98-107) mmol/L BUN (9-20) mg/dL Creatinine (0.66-1.25) mg/dL Glucose (74-99) mg/dL POC Glucose (mg/dL) 142 H 128 H 121 H (75-99) mg/dL Calcium (8.4-10.2) mg/dL Total Bilirubin (0.2-1.3) mg/dL AST (17-59) U/L ALT (21-72) U/L Alkaline Phosphatase (38-126) U/L Ammonia (<30) umol/L CK-MB (CK-2) (0.0-2.4) ng/mL Total Protein (6.3-8.2) g/dL Albumin (3.5-5.0) g/dL HDL Cholesterol (40-60) mg/dL Procalcitonin (0.02-0.09) ng/mL 11/27/17 11/27/17 11/27/17 Range/Units 18:19 18:51 20:12 WBC (3.8-10.6) k/uL RBC (4.30-5.90) m/uL Hgb (13.0-17.5) gm/dL Hct (39.0-53.0) % RDW (11.5-15.5) % Plt Count (150-450) k/uL Neutrophils # (1.3-7.7) k/uL Lymphocytes # (1.0-4.8) k/uL PT (9.0-12.0) sec INR (<1.2) APTT (22.0-30.0) sec ABG pO2 (83-108) mmHg ABG O2 Saturation (94-97) % Chloride (98-107) mmol/L BUN (9-20) mg/dL Creatinine (0.66-1.25) mg/dL Glucose (74-99) mg/dL POC Glucose (mg/dL) 135 H 137 H 149 H (75-99) mg/dL Calcium (8.4-10.2) mg/dL Total Bilirubin (0.2-1.3) mg/dL AST (17-59) U/L ALT (21-72) U/L Alkaline Phosphatase (38-126) U/L Ammonia (<30) umol/L CK-MB (CK-2) (0.0-2.4) ng/mL Total Protein (6.3-8.2) g/dL Albumin (3.5-5.0) g/dL HDL Cholesterol (40-60) mg/dL Procalcitonin (0.02-0.09) ng/mL 11/27/17 11/27/17 11/27/17 Range/Units 21:17 22:32 23:17 WBC (3.8-10.6) k/uL RBC (4.30-5.90) m/uL Hgb (13.0-17.5) gm/dL Hct (39.0-53.0) % RDW (11.5-15.5) % Plt Count (150-450) k/uL Neutrophils # (1.3-7.7) k/uL Lymphocytes # (1.0-4.8) k/uL PT (9.0-12.0) sec INR (<1.2) APTT (22.0-30.0) sec ABG pO2 (83-108) mmHg ABG O2 Saturation (94-97) % Chloride (98-107) mmol/L BUN (9-20) mg/dL Creatinine (0.66-1.25) mg/dL Glucose (74-99) mg/dL POC Glucose (mg/dL) 148 H 133 H 139 H (75-99) mg/dL Calcium (8.4-10.2) mg/dL Total Bilirubin (0.2-1.3) mg/dL AST (17-59) U/L ALT (21-72) U/L Alkaline Phosphatase (38-126) U/L Ammonia (<30) umol/L CK-MB (CK-2) (0.0-2.4) ng/mL Total Protein (6.3-8.2) g/dL Albumin (3.5-5.0) g/dL HDL Cholesterol (40-60) mg/dL Procalcitonin (0.02-0.09) ng/mL 11/28/17 11/28/17 11/28/17 Range/Units 00:15 01:02 03:13 WBC (3.8-10.6) k/uL RBC (4.30-5.90) m/uL Hgb (13.0-17.5) gm/dL Hct (39.0-53.0) % RDW (11.5-15.5) % Plt Count (150-450) k/uL Neutrophils # (1.3-7.7) k/uL Lymphocytes # (1.0-4.8) k/uL PT (9.0-12.0) sec INR (<1.2) APTT (22.0-30.0) sec ABG pO2 (83-108) mmHg ABG O2 Saturation (94-97) % Chloride (98-107) mmol/L BUN (9-20) mg/dL Creatinine (0.66-1.25) mg/dL Glucose (74-99) mg/dL POC Glucose (mg/dL) 148 H 150 H 149 H (75-99) mg/dL Calcium (8.4-10.2) mg/dL Total Bilirubin (0.2-1.3) mg/dL AST (17-59) U/L ALT (21-72) U/L Alkaline Phosphatase (38-126) U/L Ammonia (<30) umol/L CK-MB (CK-2) (0.0-2.4) ng/mL Total Protein (6.3-8.2) g/dL Albumin (3.5-5.0) g/dL HDL Cholesterol (40-60) mg/dL Procalcitonin (0.02-0.09) ng/mL 11/28/17 11/28/17 11/28/17 Range/Units 04:20 04:20 04:20 WBC 20.4 H (3.8-10.6) k/uL RBC 2.52 L (4.30-5.90) m/uL Hgb 7.4 L (13.0-17.5) gm/dL Hct 23.0 L (39.0-53.0) % RDW 19.6 H (11.5-15.5) % Plt Count 95 L (150-450) k/uL Neutrophils # 18.6 H (1.3-7.7) k/uL Lymphocytes # 0.4 L (1.0-4.8) k/uL PT 12.2 H (9.0-12.0) sec INR 1.3 H (<1.2) APTT 36.6 H (22.0-30.0) sec ABG pO2 (83-108) mmHg ABG O2 Saturation (94-97) % Chloride 110 H (98-107) mmol/L BUN 125 H* (9-20) mg/dL Creatinine 1.82 H (0.66-1.25) mg/dL Glucose 131 H (74-99) mg/dL POC Glucose (mg/dL) (75-99) mg/dL Calcium 7.8 L (8.4-10.2) mg/dL Total Bilirubin 4.3 H (0.2-1.3) mg/dL AST 165 H (17-59) U/L ALT 269 H (21-72) U/L Alkaline Phosphatase 179 H (38-126) U/L Ammonia (<30) umol/L CK-MB (CK-2) (0.0-2.4) ng/mL Total Protein 5.1 L (6.3-8.2) g/dL Albumin 2.3 L (3.5-5.0) g/dL HDL Cholesterol (40-60) mg/dL Procalcitonin (0.02-0.09) ng/mL 11/28/17 11/28/17 11/28/17 Range/Units 04:58 05:04 07:02 WBC (3.8-10.6) k/uL RBC (4.30-5.90) m/uL Hgb (13.0-17.5) gm/dL Hct (39.0-53.0) % RDW (11.5-15.5) % Plt Count (150-450) k/uL Neutrophils # (1.3-7.7) k/uL Lymphocytes # (1.0-4.8) k/uL PT (9.0-12.0) sec INR (<1.2) APTT (22.0-30.0) sec ABG pO2 152 H (83-108) mmHg ABG O2 Saturation 98.9 H (94-97) % Chloride (98-107) mmol/L BUN (9-20) mg/dL Creatinine (0.66-1.25) mg/dL Glucose (74-99) mg/dL POC Glucose (mg/dL) 144 H 149 H (75-99) mg/dL Calcium (8.4-10.2) mg/dL Total Bilirubin (0.2-1.3) mg/dL AST (17-59) U/L ALT (21-72) U/L Alkaline Phosphatase (38-126) U/L Ammonia (<30) umol/L CK-MB (CK-2) (0.0-2.4) ng/mL Total Protein (6.3-8.2) g/dL Albumin (3.5-5.0) g/dL HDL Cholesterol (40-60) mg/dL Procalcitonin (0.02-0.09) ng/mL 11/28/17 Range/Units 08:09 WBC (3.8-10.6) k/uL RBC (4.30-5.90) m/uL Hgb (13.0-17.5) gm/dL Hct (39.0-53.0) % RDW (11.5-15.5) % Plt Count (150-450) k/uL Neutrophils # (1.3-7.7) k/uL Lymphocytes # (1.0-4.8) k/uL PT (9.0-12.0) sec INR (<1.2) APTT (22.0-30.0) sec ABG pO2 (83-108) mmHg ABG O2 Saturation (94-97) % Chloride (98-107) mmol/L BUN (9-20) mg/dL Creatinine (0.66-1.25) mg/dL Glucose (74-99) mg/dL POC Glucose (mg/dL) 152 H (75-99) mg/dL Calcium (8.4-10.2) mg/dL Total Bilirubin (0.2-1.3) mg/dL AST (17-59) U/L ALT (21-72) U/L Alkaline Phosphatase (38-126) U/L Ammonia (<30) umol/L CK-MB (CK-2) (0.0-2.4) ng/mL Total Protein (6.3-8.2) g/dL Albumin (3.5-5.0) g/dL HDL Cholesterol (40-60) mg/dL Procalcitonin (0.02-0.09) ng/mL Microbiology - Last 24 Hours (Table) 11/24/17 20:30 Gram Stain - Final Sputum Sputum Culture - Final Klebsiella oxytoca 11/24/17 10:25 Blood Culture - Preliminary Blood No Growth after 72 hours 11/24/17 10:51 Blood Culture - Preliminary Blood No Growth after 72 hours Assessment and Plan Plan: Assessment: 1. Nonoliguric acute kidney injury secondary to ATN secondary to hemodynamic instability/post CABG. Renal function improving with creatinine down to 1.82 today. Baseline creatinine is 1. 2. Status post CABG and mitral valve repair. 3. Systolic CHF with ejection fraction of 30-35%. 4. Anemia status post blood transfusion this admission. Hemoglobin stable. 5. Hypotension maintained on 2 mics of Levophed. Cortisol level 29. Plan: Maintain tube feeds. Hep-Lock IV fluids. Avoid nephrotoxins. Continue to monitor renal function and urine output. Check iron studies.
[2017-11-28 10:20] LABS: Glucose,Whole Blood 139 mg/dL (75-99)
[2017-11-28 12:20] LABS: Glucose,Whole Blood 130 mg/dL (75-99)
--- NOTE | 2017-11-28 14:05 | P.PN ---
Subjective Progress Note Date: 11/28/17 Mr. Silva is a 72-year-old white male patient of Dr. Wong, who presented today on 11/16/2017 for elective placement of intra-aortic balloon pump in preparation for three-vessel coronary artery bypass graft surgery and mitral valve repair for severe mitral valve insufficiency and ischemic cardiomyopathy with severely impaired systolic dysfunction. Surgery is scheduled for tomorrow 11/17/[address] Borjas. Patient has been having progressive exertional dyspnea for the last 2 years, and last 3 months patient started experiencing severe limitation of his exercise capacity, becoming quite dyspneic while climbing a flight of stairs. Patient denied any chest pain, palpitations, syncopal episodes. Patient started experiencing bilateral lower extremity edema , and he presented to his PCP for evaluation of his symptoms. Patient has been quite active in sports during his lifetime, in swimming and running. 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 Does not have any chronic pulmonary conditions, has a remote history of smoking, quit 40 years ago , smoked a pack a day for about 5 years. No marijuana use, no EtOH, or recreational drugs. 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 Patient had a heart catheterization on 11/09/2017 which showed calcification of left main coronary artery, with mild to moderate atherosclerotic plaque in the ostial portion, circumflex with a 95% stenosis, complete occlusion of the LAD just off to the origin of the large diagonal branch, and 70% stenosis of the diagonal branch. Diffuse disease in the RCA, with a 70% stenosis at the bifurcation into PDA and PLV, and significant disease in the PDA and PLV. All the vessels were noted to be irregular, ectatic and in places aneurysmal. LVEDP was 31 mm, without significant gradient across the aortic valve. PILAR on 11/10/2017 showed ischemic cardiomyopathy with severe left ventricular systolic dysfunction, akinetic inferior wall and the septum, hypokinetic anterior wall. Moderate pulmonary hypertension and moderate mitral regurgitation. Patient was recommended surgical intervention for his symptoms, and he opted for three- vessel coronary artery bypass grafting and mitral valve repair tomorrow. Bedside spirometry was reviewed and showed FEV1 of 1.35 L or 43% of predicted, FVC of 1.65 L or 38% of predicted, consistent with severe restriction. Preop chest x-ray from 11/10/2017 showed mild cardiomegaly with small to moderate- sized right greater than the left pleural effusions and associated compressive atelectasis. Patient is seen in the intensive care, resting in bed, room air pulse ox is 92-97%, he denies any dyspnea, he is afebrile, intra-aortic balloon pump is in place, via right femoral artery. He is currently on 1:1 IABP frequency, with augmented diastolic pressure of 131 mmHg. Distal pulses are intact, sensory status is intact. Fong catheter is in place, patient is nonoliguric. Radial pulses are intact. Patient is on heparin drip at 12 u/kg/ hr. No other drips. He is on oral Lasix at 40 mg daily. Currently resting in bed, in no acute distress. On 11/18/2017 the patient is being seen for a follow-up. Note that he had a prolonged surgery which involved a 4-vessel bypass surgery and mitral valve repair. The patient arrived to the intensive care unit around 7 PM in the evening. He was on an intra-aortic balloon pump. He was also inotropes. Chest x-ray was reviewed. The patient adequate expansion of both lungs. The patient a mediastinal chest tube in the right and left pleural chest tubes. Output from the chest as was considerably high especially from the mediastinal chest tube. Overnight the patient required a total of 4 units of packed RBCs and 4 units of 4 shows and plasma and 2 units of platelets and he also received DDAVP. He received also IV fluids in the form of crystalloids and colloids. The output from the sun chest gradually improved and earlier this morning it was only putting out 20 mL an hour and currently Dopplers somewhere between 20- 40 mL an hour. As for the right pleural chest tubes output initially was initially low and then picked up and it's up to 60-80 mL an hour. The left pleural chest tube is putting out 50 mL an hour. The patient is currently on norepinephrine infusion at 7 g per KG pigmented minutes. He is also on methadone at 0.3 g per KG pigmented minutes. He is also on vasopressin and dopamine. He is also on intra-aortic balloon pump with one-to-one augmentation. The augmented blood pressure is 91. Attempts to cut down the augmentation through the intra-aortic balloon pump has failed as the patient is pressure urine output. In terms of his respiratory status, the patient is a mechanical ventilator. He is currently on assist control mode of ventilation at the rate of 12 with an FiO2 of 4040% and a PEEP of 5 and FiO2 has been drop down to 40% and tidal volumes of 500. The morning blood gases showed a pH of 7.39 with a pCO2 of 40 and pO2 of 217, and note that this was done and FiO2 of 100%. His current FiO2 is down to 40%. Renal function stable with a creatinine of 0.8. Rest of the electrodes are all within normal limits. Correlation profile is within normal limits. Most recent hemoglobin is at 7.3. The patient was sedated with Diprivan and the patient is currently off Diprivan and when it parameters are being checked. Urine output is in order of 30-40 mL an hour over the past 2 hours. His most recent blood sugar is at 137. On 11/19/2017 and seeing this patient for a follow-up. This patient is status post four-vessel bypass surgery and mitral valve replacement. Is postop day # 2. Note that the patient was extubated yesterday without any major difficulties and currently is on oxygen by nasal cannula 2 L/m. The chest x- ray shows adequate expansion of both lungs. There is some pulmonary vessel congestion. The patient has all of these chest tubes in place. The Gladwin-Wendie catheter is also in place. As far as his breathing status, is not having any respiratory difficulties. Sternum stable clean and intact. The chest tube output over the past 12 hours was 20 mL from the mediastinum, to 90 mL from the right pleural and for 90 mL from the left poor. His most recent hemodynamic parameters shows a cardiac output of 4.8 with an index of 2.5. He has elevated intra-aortic balloon pump was a one-to-one augmentation throughout the night and currently is down to 1-2 augmentation and his augmented mean arterial blood pressures around 72. He is producing adequate amount of urine output. As far as pressors, the patient is on a combination of Primacor at 0.2 g, norepinephrine which is ranging between 1 and 6 g, dopamine at 2.5 Pedro grams per KG pigmented, and vasopressin at physiologic dose of 0.02 units per hour. He is also on lactated Ringer at 40 mL an hour and the patient is currently off insulin drip. No significant events overnight. Is afebrile. He is awake and alert. Moving all 4 extremities and he has adequate pulses in 4 extremities. On 11/20/2017, the patient is being seen in follow-up. The patient is still in the intensive care unit postop day #3. He has done very well post extubation. The intra-aortic balloon pump was discontinued. Hemodynamically, he still requiring pressors and currently the patient is on levo fed at around 5 g per KG pigmented. He is on milrinone at 0.2 micrograms per KG and he is also on vasopressin at physiologic dose of 0.03 units an hour. The patient is off dopamine. Overall cardiac index is somewhat between 2.2 and 2.3. PA diastolic pressures around 17. Urine output dropped over the past hour down to 50 mL an hour. The patient was receiving a unit of packed RBC. Output from the chest tube has been 700 mL on the left pleural over the past 24 hours is 700 mL on the left pleural 500 mL on the right pleural and there is no mediastinal chest tube that was pulled out yesterday. The patient is still on insulin drip for blood sugar control. He is awake and alert. He is feeling very weak and lethargic. He answers questions and follows commands. Trying to use incentive spirometer. The surgical wound site is dry clean and intact. Hemoglobin today is at 7.0. Rated count is at 76. Creatinine is stable at 1.2. Overnight the patient went into to establish with rapid ventricular response. The patient was given to loading dose of amiodarone. Currently is on a maintenance and eye doctor maintenance down to 0.5 mg/m. Around 1 AM this morning the patient converted back to normal sinus rhythm. On 11/21/2017, I'm seeing this patient for a follow-up. Is postop day #4. He remains extubated on 2 L of oxygen by nasal cannula. Intra-aortic balloon pump has been discontinued. The patient has the Gladwin-Wendie catheter in place. PA pressures are 33/14. The cardiac index is at 2.4. The patient is on milrinone at 0.1. The patient is also on levo fed and the dose varies between 2-50 mics per KG per minute knowing that the patient is a very labile blood pressure. He is having occasional hypotension and subsequent hypertension and based on that the titration of the levo fed is being done. The patient has developed an acute kidney injury. Creatinine is up to 1.8. He also developed an acute liver injury, probably a shock liver due to low flow state. The patient was receiving diuretics yesterday and currently diuretics on hold. He received 2 units of packed RBC yesterday. He also received 5% albumin, 250 mL yesterday. Urine output is no other of 10 mL an hour. He has a pleural chest tube on the right and on the left, the output from the right is 350 over the past 24 hours unless put out 400 mL over the past 24 hours. Overnight, the patient has short runs of paroxysmal atrial fibrillation and current his rhythm is sinus. Amiodarone is at the maintenance of 400 mg by mouth twice a day. The hemoglobin is at 7.7. Chest x-ray shows some mild increase in pulmonary vascular markings. Chest tubes are in good location. There is no evidence of pneumothorax. Limited bibasilar infiltrates seen and small effusions. He is awake. He is alert. Aspirin was kept on 2 baby dose as the patient developed thrombocytopenia. He is still on Plavix. He is on Arixtra for DVT prophylaxis Reevaluated on 11/22/2017, patient is postoperative day #5, remains on nasal cannula at 2 L, in atrial flutter, receiving amiodarone to control his atrial flutter and possibly convert him. patient is on norepinephrine, being titrated to possibly discontinue if possible. His blood pressure seems to be labile, but at least at present seems to be stable. Renal functioning is getting worse , patient is to be seen by nephrology on consultation. Labs today showed hemoglobin of 7.4 WBC count of 8.6 platelets are low at 27,000. BUN is 66 creatinine 2.22. Liver enzymes were also noted to be elevated, however improving in the last 24 hours but remain elevated. Chest x-ray showed minimal atelectasis no evidence of pneumothorax. On 11/23/2017 patient is seen again in the intensive care unit. His night he had episode of confusion, and agitation for which Ativan was given. Currently he sitting up in the chair, in no acute distress, pulse ox on 2 L per nasal cannula is 96%, vital signs are stable, patient is afebrile. Remains tachycardic in atrial flutter, has heart rate between 1:15 and 120 BPM. His chest x-ray has been reviewed by Dr. Harmon and shows a rotated film, but mostly atelectatic changes, no pulmonary edema, we disagree with the interpretation by radiologist. He remains on milrinone at 0.1 mics per kilo per minute, small dose levo fed at 5 mics per minute, and Lasix drip at 5 mg per hour. She received a small fluid bolus yesterday per nephrology with no significant improvement in urine output. This decision was made to start patient on IV Lasix, currently urine output is ranging from 35-75 ML per hour. No significant swelling in bilateral lower extremities, sounds are positive for minimal crackles over left posterior base, patient appears to be intravascularly dry. His labs were reviewed, shows the PVC of 12.0, hemoglobin 7.4, patient will receive 1 unit of packed red blood cells. INR of 2.5, sodium of 134, potassium is 5.2, B1 is 89 and creatinine is 2.3. LFTs are trending down. Patient's incentive spirometry use has been poor. Patient has left pleural chest tube to continuous wall suction, and there has been 30 mL of serosanguineous drainage overnight, 300 mL in the last 24 hours. Right pleural chest tube with 30 amount of serosanguineous drainage overnight and 350 ML in last 24 hours, no air leak present. On 11/24/2017, patient is back on mechanical ventilation, developed significant shortness of breath last night, he became quite restless confused agitated, and could not follow any verbal commands.. Urine output was minimal in spite of of Lasix at 15 mg per hour. All labs were noted to be abnormal, patient developed worsening metabolic acidosis, worsening anemia thrombocytopenia and INR was also noted to be elevated at 2.9. ABG this morning following intubation showed a pO2 of more than 400 pCO2 of 41 however his pH was 7.10. Patient received 3 Amps of sodium bicarb, follow-up ABG was done and we recommended placing the patient on sodium bicarb drip. Most recent ABG at 12:15 PM showed a pO2 of 122 pCO2 of 35 pH of 7.38 and now he is on 40% FiO2. Tidal volume of 450 assist- control rate of 14 and PEEP of 5. Lasix drip was discontinued, I recommended volume replacement, patient was given fluid boluses, and was also given fresh frozen plasma lactic acid this morning was noted to be 8.1. Hence I recommended empiric antibiotics in the form of vancomycin and Zosyn. I believe his lactic acidosis is mostly hypoperfusion in nature, sepsis is felt to be less likely but not entirely ruled out. Patient is now on norepinephrine is also on vasopressin both are being titrated accordingly. Left IJ central line was placed for pressors to be infused. Had a long discussion regarding this patient with cardiac surgery on the case. Also discussed his condition with the bariatric nurse and we all in agreement to discontinue Lasix drip at this point. Chest x-ray showed evidence of cardiomegaly small bilateral pleural effusions, minimal interstitial changes bilaterally no significant pulmonary edema is noted. On 11/25/2017, the patient is postop day #7 the patient is being seen in the follow-up. Remains intubated on a mechanical ventilator. Vent settings include assist control of 14, tidal volume of 450, FiO2 of 450 and a PEEP of 5. The patient is sedated with Diprivan and the patient is calm comfortable. The patient had a follow-up chest x-ray today and the chest x-ray showed stable findings with mild interstitial changes and trace pleural effusion. All of the tubes are in good location. The patient has still mediastinum and left pleural chest tube. She will also is in a good location. The blood gases from today showed a pH of 7.4 with a pCO2 of 42 and pO2 of 117 and this was done and FiO2 of 35%. Hemodynamically, the patient is still having issues with hypotension. First of all he remains in atrial fibrillation and the rate is tachycardic between 110 and 120. At the same time, the patient is a combination of present including vasopressin physiologic dose, Primacor at 0.3 g and norepinephrine infusion has been weaned down to 20 mics per KG per minutes. And output was in the order of 100 mL an hour. The patient is producing good amount of urine output. In fact for today is producing approximately 3 L of urine output and now. That fluid balance is slightly positive for today. As for the chest tube outputs, the patient is producing approximately 90 mL from the mediastinal chest tube and to 230 mL over the past 24 hours and from the left pleural chest tube the patient has produced 250 mL over the past 24 hours. As for the patient 's or G-tube, the patient has been placed on low intermittent suction and the patient has produced approximately 150 mL overnight. CVP is currently at 11 and ranges between 11 and 20. The patient is being weaned off the pressors. We managed to cut him down to 50 g per KG per minute. Having liquidy stool and the C. diff evaluation was negative. This is probably related to a component of ischemic colitis and the patient has no fever or chills. Lactic acidosis is also improved. The renal function is also improving and the creatinine is down to 2.6. LFTs are normal consistent with [id number] of the numbers are gradually also improving. On 11/26/2017, patient is postop day #8. Remains intubated. On a mechanical ventilator. Essentially same vent settings with assist control of 14 with tidal volume of 450 and a PEEP of 5 and FiO2 of 35%. Chest x-ray findings are typical postsurgical changes with increased atelectatic changes in lung bases and some subpulmonic pleural effusion and increased interstitial markings. ET tube is in a good location. Chest tubes are also in good location. The patient had a pH of 7.4 with a pCO2 of 38 and pO2 121 based on today's blood gases. Hemodynamically, he is essentially the same. He still requiring Primacor at 0.2 and he is also on norepinephrine infusion at 15 mics and addition to vasopressin physiologic dose. Urine output is noted of 20-30 mL an hour. Net fluid balance over the past 24 hours is +581 mL. Output from the chest tubes of a minimal and we are considering removal of the chest tubes today. His cardiac rhythm is sinus. No fever. No chills. Empiric recovered and is a combination of Zosyn and vancomycin. Tolerating his tube feeds is currently at goal with vital high protein. FMS output is minimal at this point in time. White cell count is at 14.6. Hemoglobin stable at 7.0. Liver function tests are improving and the renal function is stable with a creatinine of 2.2. Insulin is running at 4 units an hour and the patient adequate blood sugar control. Sedation is on Diprivan at 30 mics and the patient is easily arousable and he withdraws to painful semination all 4 extremities. On 11/27/2017 the patient is postop day #9. The patient is intubated on a mechanical ventilator. Receiving a sedation holiday and we have noted that he is slowly recovering in terms of his mentation. He remains on the same vent settings. He is on a tidal volume of 450 with an FiO2 of 35% and PEEP of 5. Sputum showing gram-negative bacillus. Is on IV Zosyn. No indication for any pneumonia or respiratory infection and this is probably a colonizer. Vancomycin was discontinued. He was dynamically stable pressor requirement and he is on 10 mics of norepinephrine infusion. He is also on Primacor. Shock liver is improving. Renal function is also stable with a creatinine of 1.9 which is improved compared to yesterday. He is producing adequate amount of urine output. His splitting between atrial fibrillation and normal sinus rhythm. This morning he is in atrial fibrillation with a controlled rate. He is INR is down to 1.4. Chest tubes are in place. Output from the chest tubes considerably high and that she will be kept in place. FMS is in place. The patient is less in terms of his stool output. He is tolerating tube feeds and enteral nutrition for nutritional support. Hemoglobin stable at 7.3. Platelet counts are improving with topical 79,000. No other significant events otherwise for now. On today's evaluation of 11/28/2017, the patient is postop day #10. The patient is looking well and improved compared to yesterday. Note that the patient was taken off sedation and taken an extended period of time to gradually recover from his underlying sedation. Around early evening the patient became tachypneic and tachycardic while off sedation. He continued to be very sluggish and he was not following simple commands. At that point I put him back on low-dose Diprivan at 10 mics. This morning he was taken off the Diprivan again and he is waking up slowly. He is extremely sluggish and lethargic and he is able to follow some simple commands. He is profoundly weak. His assist-control mode of ventilation. I noted that the patient is trying to overcome the mechanical ventilator and he is been somewhat asynchronous. Based on that I switch this patient a VC plus mode at a tidal volume of 500 with a rate of 20 and FiO2 of 35% and a PEEP of 5. He seems to be much more comfortable and is generating is on flow. Chest x-ray findings of the same. Klebsiella was cultured from the sputum which is probably colonized and the patient on IV Zosyn. Hemodynamically improved and the patient is currently on 2-3 mics of norepinephrine infusion and is producing adequate amount of urine output. No signs of any significant fluid overload. Tolerating tube feeds. Afebrile. Hemoglobin stable at 7.4. The blood gases showed a pH of 7.42 with a pCO2 of 39 and pO2 of 152 based on the morning blood gases. His underlying rhythm is atrial fibrillation. The patient is on no anti -coagulant for now. INR is down to 1.3. Objective - Vital Signs Vital signs: Vital Signs Temp 98.3 F 11/28/17 12:00 Pulse 129 H 11/28/17 12:45 Resp 25 H 11/28/17 12:45 BP 100/61 11/28/17 12:00 Pulse Ox 98 11/28/17 12:45 Intake & Output 11/27/17 11/28/17 11/28/17 18:59 06:59 18:59 Intake Total 938.774 2930.585 650.797 Output Total 1105 1209 715 Balance -223.159 321.585 -64.203 Weight 85.9 kg 84.8 kg Intake: IV 485.4 657.2 304.2 Milrinone-D5W 41.4 55.2 32.2 Piperacillin-Tazobactam 3 50 50 .375 gm In Dextrose/Water 1 50ml.bag @ 12.5 mls/hr IVPB Q8HR [facility] Rx#: [id number] Pressure Bags 54 72 42 Sodium Chloride 0.9% 1, 390 480 180 000 ml @ 40 mls/hr IV . Q24H [facility] Rx#:[id number] Intake, IV Titration 102.441 153.385 182.597 Amount Calcium Chloride 1,000 mg 100 In Sodium Chloride 0.9% 100 ml @ 100 mls/hr IVPB ONCE [facility] Rx#:[id number] Insulin Regular 100 unit 35.157 15.126 28.35 In Sodium Chloride 0.9% 100 ml @ Per Protocol IV .Q0M [facility] Rx#:[id number] Milrinone-D5w Pmx 20 mg 100 In Dextrose/Water 1 100ml .bag @ 0.2 MCG/KG/MIN 4. 66 mls/hr IV .[id number] [facility] Rx#:[id number] Norepinephrine 16 mg In 44.094 18.823 Dextrose 5% in Water 250 ml @ Titrate IV .Q0M [facility] Rx#:[id number] Propofol 1,000 mg In 23.19 19.436 54.247 Empty Bag 1 bag @ Titrate IV .Q0M [facility] Rx#: [id number] Tube Feeding 294 630 84 Other 90 80 Output: Chest Tube Drainage 210 344 75 left pleural 60 134 35 right pleural 150 210 40 Urine 895 865 640 Other: Voiding Method Indwelling Catheter Indwelling Catheter ABP, PAP, CO, CI - Last Documented Arterial Blood Pressure 136/64 Pulmonary Artery Pressure 40/15 Cardiac Output 5.0 Cardiac Index 2.7 - Exam Remains minimally sedated on mechanical ventilation. General appearance: Present: no acute distress, the patient is currently off sedation. He is extremely lethargic and he follows up some simple commands. - Respiratory Details: Lungs sounds diminished bilaterally. Respirations even, nonlabored on mechanical ventilation. Current ventilator settings assist control mode, sternum stable clean and intact and the chest tubes are still in place. - Cardiovascular Details: S1, S2 present. Irregular rate and rhythm, atrial fibrillation on telemetry. Sternum stable. A/V epicardial pacemaker wires present, grounded. Palpable peripheral pulses bilaterally. Bilateral lower extremity, scrotal edema present. Right radial arterial line, left brachial PICC line, left internal jugular triple-lumen central line present. CVP 15. Levo being titrated as needed to keep MAP > 65, currently at 2 mcg/kg, vasopressin has been off since yesterday evening, Primacor currently at 0.02 mcg/kg/min. Heart hugger, antiembolism stockings, SCDs present. - Gastrointestinal Gastrointestinal Comment(s): Abdomen soft, nontender, nondistended. Active bowel sounds present 4 quadrants. OG tube present, vital tube feedings infusing at 42 mL/h with no residual per nursing. Fecal management system present, yellowish brown liquid stool, occult blood positive, C. diff negative. - Genitourinary Genitourinary Comment(s): Fong present draining clear yellow urine. Output 50-100 mL/h overnight without diuretics. - Integumentary Integumentary Comment(s): Skin warm and dry, right great toe with blue spot likely from high-dose levo. Sternal incision well approximated and covered with dry intact dressing. Left lower extremity EVH site well approximated. Stage II pressure ulcer to coccyx, covered by Optisol foam dressing. - Neurologic Neurologic Comment(s): Remains on minimal sedation on mechanical ventilation. This morning did attempt to nod his head and wiggle his toes to command. - Musculoskeletal Musculoskeletal: Present: generalized weakness - Allied health notes Allied health notes reviewed: nursing - Labs CBC & Chem 7: 11/28/17 04:20 11/28/17 04:20 Labs: Abnormal Lab Results - Last 24 Hours (Table) 11/27/17 11/27/17 11/27/17 Range/Units 09:50 14:09 15:09 WBC (3.8-10.6) k/uL RBC (4.30-5.90) m/uL Hgb (13.0-17.5) gm/dL Hct (39.0-53.0) % RDW (11.5-15.5) % Plt Count (150-450) k/uL Neutrophils # (1.3-7.7) k/uL Lymphocytes # (1.0-4.8) k/uL PT (9.0-12.0) sec INR (<1.2) APTT (22.0-30.0) sec ABG pO2 (83-108) mmHg ABG O2 Saturation (94-97) % Chloride (98-107) mmol/L BUN (9-20) mg/dL Creatinine (0.66-1.25) mg/dL Glucose (74-99) mg/dL POC Glucose (mg/dL) 142 H 142 H (75-99) mg/dL Calcium (8.4-10.2) mg/dL Total Bilirubin (0.2-1.3) mg/dL AST (17-59) U/L ALT (21-72) U/L Alkaline Phosphatase (38-126) U/L Total Protein (6.3-8.2) g/dL Albumin (3.5-5.0) g/dL Procalcitonin 1.79 H (0.02-0.09) ng/mL 11/27/17 11/27/17 11/27/17 Range/Units 16:05 17:03 18:19 WBC (3.8-10.6) k/uL RBC (4.30-5.90) m/uL Hgb (13.0-17.5) gm/dL Hct (39.0-53.0) % RDW (11.5-15.5) % Plt Count (150-450) k/uL Neutrophils # (1.3-7.7) k/uL Lymphocytes # (1.0-4.8) k/uL PT (9.0-12.0) sec INR (<1.2) APTT (22.0-30.0) sec ABG pO2 (83-108) mmHg ABG O2 Saturation (94-97) % Chloride (98-107) mmol/L BUN (9-20) mg/dL Creatinine (0.66-1.25) mg/dL Glucose (74-99) mg/dL POC Glucose (mg/dL) 128 H 121 H 135 H (75-99) mg/dL Calcium (8.4-10.2) mg/dL Total Bilirubin (0.2-1.3) mg/dL AST (17-59) U/L ALT (21-72) U/L Alkaline Phosphatase (38-126) U/L Total Protein (6.3-8.2) g/dL Albumin (3.5-5.0) g/dL Procalcitonin (0.02-0.09) ng/mL 11/27/17 11/27/17 11/27/17 Range/Units 18:51 20:12 21:17 WBC (3.8-10.6) k/uL RBC (4.30-5.90) m/uL Hgb (13.0-17.5) gm/dL Hct (39.0-53.0) % RDW (11.5-15.5) % Plt Count (150-450) k/uL Neutrophils # (1.3-7.7) k/uL Lymphocytes # (1.0-4.8) k/uL PT (9.0-12.0) sec INR (<1.2) APTT (22.0-30.0) sec ABG pO2 (83-108) mmHg ABG O2 Saturation (94-97) % Chloride (98-107) mmol/L BUN (9-20) mg/dL Creatinine (0.66-1.25) mg/dL Glucose (74-99) mg/dL POC Glucose (mg/dL) 137 H 149 H 148 H (75-99) mg/dL Calcium (8.4-10.2) mg/dL Total Bilirubin (0.2-1.3) mg/dL AST (17-59) U/L ALT (21-72) U/L Alkaline Phosphatase (38-126) U/L Total Protein (6.3-8.2) g/dL Albumin (3.5-5.0) g/dL Procalcitonin (0.02-0.09) ng/mL 11/27/17 11/27/17 11/28/17 Range/Units 22:32 23:17 00:15 WBC (3.8-10.6) k/uL RBC (4.30-5.90) m/uL Hgb (13.0-17.5) gm/dL Hct (39.0-53.0) % RDW (11.5-15.5) % Plt Count (150-450) k/uL Neutrophils # (1.3-7.7) k/uL Lymphocytes # (1.0-4.8) k/uL PT (9.0-12.0) sec INR (<1.2) APTT (22.0-30.0) sec ABG pO2 (83-108) mmHg ABG O2 Saturation (94-97) % Chloride (98-107) mmol/L BUN (9-20) mg/dL Creatinine (0.66-1.25) mg/dL Glucose (74-99) mg/dL POC Glucose (mg/dL) 133 H 139 H 148 H (75-99) mg/dL Calcium (8.4-10.2) mg/dL Total Bilirubin (0.2-1.3) mg/dL AST (17-59) U/L ALT (21-72) U/L Alkaline Phosphatase (38-126) U/L Total Protein (6.3-8.2) g/dL Albumin (3.5-5.0) g/dL Procalcitonin (0.02-0.09) ng/mL 11/28/17 11/28/17 11/28/17 Range/Units 01:02 03:13 04:20 WBC 20.4 H (3.8-10.6) k/uL RBC 2.52 L (4.30-5.90) m/uL Hgb 7.4 L (13.0-17.5) gm/dL Hct 23.0 L (39.0-53.0) % RDW 19.6 H (11.5-15.5) % Plt Count 95 L (150-450) k/uL Neutrophils # 18.6 H (1.3-7.7) k/uL Lymphocytes # 0.4 L (1.0-4.8) k/uL PT (9.0-12.0) sec INR (<1.2) APTT (22.0-30.0) sec ABG pO2 (83-108) mmHg ABG O2 Saturation (94-97) % Chloride (98-107) mmol/L BUN (9-20) mg/dL Creatinine (0.66-1.25) mg/dL Glucose (74-99) mg/dL POC Glucose (mg/dL) 150 H 149 H (75-99) mg/dL Calcium (8.4-10.2) mg/dL Total Bilirubin (0.2-1.3) mg/dL AST (17-59) U/L ALT (21-72) U/L Alkaline Phosphatase (38-126) U/L Total Protein (6.3-8.2) g/dL Albumin (3.5-5.0) g/dL Procalcitonin (0.02-0.09) ng/mL 11/28/17 11/28/17 11/28/17 Range/Units 04:20 04:20 04:58 WBC (3.8-10.6) k/uL RBC (4.30-5.90) m/uL Hgb (13.0-17.5) gm/dL Hct (39.0-53.0) % RDW (11.5-15.5) % Plt Count (150-450) k/uL Neutrophils # (1.3-7.7) k/uL Lymphocytes # (1.0-4.8) k/uL PT 12.2 H (9.0-12.0) sec INR 1.3 H (<1.2) APTT 36.6 H (22.0-30.0) sec ABG pO2 (83-108) mmHg ABG O2 Saturation (94-97) % Chloride 110 H (98-107) mmol/L BUN 125 H* (9-20) mg/dL Creatinine 1.82 H (0.66-1.25) mg/dL Glucose 131 H (74-99) mg/dL POC Glucose (mg/dL) 144 H (75-99) mg/dL Calcium 7.8 L (8.4-10.2) mg/dL Total Bilirubin 4.3 H (0.2-1.3) mg/dL AST 165 H (17-59) U/L ALT 269 H (21-72) U/L Alkaline Phosphatase 179 H (38-126) U/L Total Protein 5.1 L (6.3-8.2) g/dL Albumin 2.3 L (3.5-5.0) g/dL Procalcitonin (0.02-0.09) ng/mL 11/28/17 11/28/17 11/28/17 Range/Units 05:04 07:02 08:09 WBC (3.8-10.6) k/uL RBC (4.30-5.90) m/uL Hgb (13.0-17.5) gm/dL Hct (39.0-53.0) % RDW (11.5-15.5) % Plt Count (150-450) k/uL Neutrophils # (1.3-7.7) k/uL Lymphocytes # (1.0-4.8) k/uL PT (9.0-12.0) sec INR (<1.2) APTT (22.0-30.0) sec ABG pO2 152 H (83-108) mmHg ABG O2 Saturation 98.9 H (94-97) % Chloride (98-107) mmol/L BUN (9-20) mg/dL Creatinine (0.66-1.25) mg/dL Glucose (74-99) mg/dL POC Glucose (mg/dL) 149 H 152 H (75-99) mg/dL Calcium (8.4-10.2) mg/dL Total Bilirubin (0.2-1.3) mg/dL AST (17-59) U/L ALT (21-72) U/L Alkaline Phosphatase (38-126) U/L Total Protein (6.3-8.2) g/dL Albumin (3.5-5.0) g/dL Procalcitonin (0.02-0.09) ng/mL 11/28/17 11/28/17 Range/Units 10:18 12:19 WBC (3.8-10.6) k/uL RBC (4.30-5.90) m/uL Hgb (13.0-17.5) gm/dL Hct (39.0-53.0) % RDW (11.5-15.5) % Plt Count (150-450) k/uL Neutrophils # (1.3-7.7) k/uL Lymphocytes # (1.0-4.8) k/uL PT (9.0-12.0) sec INR (<1.2) APTT (22.0-30.0) sec ABG pO2 (83-108) mmHg ABG O2 Saturation (94-97) % Chloride (98-107) mmol/L BUN (9-20) mg/dL Creatinine (0.66-1.25) mg/dL Glucose (74-99) mg/dL POC Glucose (mg/dL) 139 H 130 H (75-99) mg/dL Calcium (8.4-10.2) mg/dL Total Bilirubin (0.2-1.3) mg/dL AST (17-59) U/L ALT (21-72) U/L Alkaline Phosphatase (38-126) U/L Total Protein (6.3-8.2) g/dL Albumin (3.5-5.0) g/dL Procalcitonin (0.02-0.09) ng/mL Microbiology - Last 24 Hours (Table) 11/24/17 10:25 Blood Culture - Preliminary Blood No Growth after 96 hours 11/24/17 10:51 Blood Culture - Preliminary Blood No Growth after 96 hours 11/24/17 20:30 Gram Stain - Final Sputum Sputum Culture - Final Klebsiella oxytoca Assessment and Plan Plan: #1. Symptomatic multivessel coronary artery disease, with total occlusion of the LAD, 70% stenosis of the diagonal artery, 95% stenosis of the circumflex, diffuse disease in the RCA with 70% stenosis at the bifurcation of the PDA and PLV. Patient is scheduled for coronary artery bypass grafting and mitral valve repair on 11/17/2017. The patient is postop day #10 #2. Mitral valve regurgitation, post mitral valve repair, patient postop day # 10 #3 shock with ongoing difficulties with hypotension. Norepinephrine infusion for blood pressure control. #4 Ischemic cardiomyopathy, with severe left ventricular systolic dysfunction, with significantly impaired preoperative left ventricular ejection fraction #5. Diabetes mellitus type 2, the patient is on insulin drip #6. Remote history of nicotine dependence, patient quit 40 years ago, carries 5 -pack-year smoking history #7. Postoperative anemia with a hemoglobin of of 7.4 and the patient will be receiving units of packed RBC. There is an expected outcome of surgery #8. Diabetic retinopathy #9 acute hepatocellular injury/shock liver secondary to above, improving #10 acute kidney injury on top of chronic renal failure, improving #11 ischemic colitis with secondary diarrhea #12 thrombocytopenia, improving, and expected outcome of cardiac surgery #13 chronic atrial fibrillation him a still on amiodarone and the patient is having episodes of A. fib in addition to occasional sinus rhythm. #14 acute hypoxic respiratory failure secondary to above-mentioned comorbidities. The patient is intubated on mechanical ventilator. The patient has a Klebsiella in his sputum which is a colonizer. He is on IV Zosyn. No signs or pneumonias. Plan The patient off sedation. This is very ventilator changes were done. Monitor hemodynamics and wean off pressors as tolerated. Continue tube feeds. Extremely lethargic and has significant motor weakness as such she is not ready for further weaning or extubation at this point in time. Continue enteral feeding for nutritional support. May consider removal of the chest tube on the left which is showed diminished output. Continue amiodarone for rate control. Metoprolol once blood pressure allows. Aspirin. Plavix. No anticoagulation yet. Likely removed left-sided chest tube today. We'll continue to follow make further recommendations based on his progress. 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 There is a critically care evaluation was done and 35 minutes. Time with Patient: Greater than 30
[2017-11-28 14:18] LABS: Glucose,Whole Blood 138 mg/dL (75-99)
[2017-11-28 16:18] LABS: Glucose,Whole Blood 131 mg/dL (75-99)
[2017-11-28 18:07] LABS: Glucose,Whole Blood 145 mg/dL (75-99)
--- NOTE | 2017-11-28 18:45 | P.PN ---
Subjective Progress Note Date: 11/28/17 Principal diagnosis: Status post mitral valve repair Patient continued to be distended does not follow commands. Patient has developed atrial fibrillation and heart rate is currently controlled. Patient was following commands by squeezing his hand this morning but currently is off sedation but still not following commands patient is moving his head to the right than to the left spontaneously and currently still on full vent support Objective - Vital Signs Vital signs: Vital Signs Temp 98.3 F 11/28/17 12:00 Pulse 118 H 11/28/17 18:00 Resp 22 11/28/17 18:00 BP 103/61 11/28/17 18:00 Pulse Ox 98 11/28/17 18:00 Intake & Output 11/27/17 11/28/17 11/28/17 18:59 06:59 18:59 Intake Total 051.196 8707.585 949.513 Output Total 1105 1209 1720 Balance -223.159 321.585 -770.487 Weight 85.9 kg 84.8 kg Intake: IV 485.4 657.2 507.2 Milrinone-D5W 41.4 55.2 55.2 Piperacillin-Tazobactam 3 50 100 .375 gm In Dextrose/Water 1 50ml.bag @ 12.5 mls/hr IVPB Q8HR JANNA Rx#: [id number] Pressure Bags 54 72 72 Sodium Chloride 0.9% 1, 390 480 280 000 ml @ 40 mls/hr IV . Q24H JANNA Rx#:[id number] Intake, IV Titration 102.441 153.385 194.313 Amount Calcium Chloride 1,000 mg 100 In Sodium Chloride 0.9% 100 ml @ 100 mls/hr IVPB ONCE STA Rx#:[id number] Insulin Regular 100 unit 35.157 15.126 40.066 In Sodium Chloride 0.9% 100 ml @ Per Protocol IV .Q0M JANNA Rx#:[id number] Milrinone-D5w Pmx 20 mg 100 In Dextrose/Water 1 100ml .bag @ 0.2 MCG/KG/MIN 4. 66 mls/hr IV .[id number] JANNA Rx#:[id number] Norepinephrine 16 mg In 44.094 18.823 Dextrose 5% in Water 250 ml @ Titrate IV .Q0M JANNA Rx#:[id number] Propofol 1,000 mg In 23.19 19.436 54.247 Empty Bag 1 bag @ Titrate IV .Q0M JANNA Rx#: [id number] Tube Feeding 294 630 168 Other 90 80 Output: Chest Tube Drainage 210 344 255 left pleural 60 134 75 right pleural 150 210 180 Urine 940 353 5277 Other: Voiding Method Indwelling Catheter Indwelling Catheter Indwelling Catheter ABP, PAP, CO, CI - Last Documented Arterial Blood Pressure 130/66 Pulmonary Artery Pressure 40/15 Cardiac Output 5.0 Cardiac Index 2.7 - Exam Gen.: Does not follow commands Heart: Normal S1-S2 Lungs: Coarse breathing sounds bilaterally Abdomen: Soft, no tenderness, positive bowel sounds in all 4 quadrant no guarding or rebound Skin: No new rash Psych: Alert and oriented 0 Neuro: Unable to assess due to patient's condition - Labs CBC & Chem 7: 11/28/17 04:20 11/28/17 04:20 Labs: Abnormal Lab Results - Last 24 Hours (Table) 11/27/17 11/27/17 11/27/17 Range/Units 09:50 18:51 20:12 WBC (3.8-10.6) k/uL RBC (4.30-5.90) m/uL Hgb (13.0-17.5) gm/dL Hct (39.0-53.0) % RDW (11.5-15.5) % Plt Count (150-450) k/uL Neutrophils # (1.3-7.7) k/uL Lymphocytes # (1.0-4.8) k/uL PT (9.0-12.0) sec INR (<1.2) APTT (22.0-30.0) sec ABG pO2 (83-108) mmHg ABG O2 Saturation (94-97) % Chloride (98-107) mmol/L BUN (9-20) mg/dL Creatinine (0.66-1.25) mg/dL Glucose (74-99) mg/dL POC Glucose (mg/dL) 137 H 149 H (75-99) mg/dL Calcium (8.4-10.2) mg/dL Total Bilirubin (0.2-1.3) mg/dL AST (17-59) U/L ALT (21-72) U/L Alkaline Phosphatase (38-126) U/L Total Protein (6.3-8.2) g/dL Albumin (3.5-5.0) g/dL Procalcitonin 1.79 H (0.02-0.09) ng/mL 11/27/17 11/27/17 11/27/17 Range/Units 21:17 22:32 23:17 WBC (3.8-10.6) k/uL RBC (4.30-5.90) m/uL Hgb (13.0-17.5) gm/dL Hct (39.0-53.0) % RDW (11.5-15.5) % Plt Count (150-450) k/uL Neutrophils # (1.3-7.7) k/uL Lymphocytes # (1.0-4.8) k/uL PT (9.0-12.0) sec INR (<1.2) APTT (22.0-30.0) sec ABG pO2 (83-108) mmHg ABG O2 Saturation (94-97) % Chloride (98-107) mmol/L BUN (9-20) mg/dL Creatinine (0.66-1.25) mg/dL Glucose (74-99) mg/dL POC Glucose (mg/dL) 148 H 133 H 139 H (75-99) mg/dL Calcium (8.4-10.2) mg/dL Total Bilirubin (0.2-1.3) mg/dL AST (17-59) U/L ALT (21-72) U/L Alkaline Phosphatase (38-126) U/L Total Protein (6.3-8.2) g/dL Albumin (3.5-5.0) g/dL Procalcitonin (0.02-0.09) ng/mL 11/28/17 11/28/17 11/28/17 Range/Units 00:15 01:02 03:13 WBC (3.8-10.6) k/uL RBC (4.30-5.90) m/uL Hgb (13.0-17.5) gm/dL Hct (39.0-53.0) % RDW (11.5-15.5) % Plt Count (150-450) k/uL Neutrophils # (1.3-7.7) k/uL Lymphocytes # (1.0-4.8) k/uL PT (9.0-12.0) sec INR (<1.2) APTT (22.0-30.0) sec ABG pO2 (83-108) mmHg ABG O2 Saturation (94-97) % Chloride (98-107) mmol/L BUN (9-20) mg/dL Creatinine (0.66-1.25) mg/dL Glucose (74-99) mg/dL POC Glucose (mg/dL) 148 H 150 H 149 H (75-99) mg/dL Calcium (8.4-10.2) mg/dL Total Bilirubin (0.2-1.3) mg/dL AST (17-59) U/L ALT (21-72) U/L Alkaline Phosphatase (38-126) U/L Total Protein (6.3-8.2) g/dL Albumin (3.5-5.0) g/dL Procalcitonin (0.02-0.09) ng/mL 11/28/17 11/28/17 11/28/17 Range/Units 04:20 04:20 04:20 WBC 20.4 H (3.8-10.6) k/uL RBC 2.52 L (4.30-5.90) m/uL Hgb 7.4 L (13.0-17.5) gm/dL Hct 23.0 L (39.0-53.0) % RDW 19.6 H (11.5-15.5) % Plt Count 95 L (150-450) k/uL Neutrophils # 18.6 H (1.3-7.7) k/uL Lymphocytes # 0.4 L (1.0-4.8) k/uL PT 12.2 H (9.0-12.0) sec INR 1.3 H (<1.2) APTT 36.6 H (22.0-30.0) sec ABG pO2 (83-108) mmHg ABG O2 Saturation (94-97) % Chloride 110 H (98-107) mmol/L BUN 125 H* (9-20) mg/dL Creatinine 1.82 H (0.66-1.25) mg/dL Glucose 131 H (74-99) mg/dL POC Glucose (mg/dL) (75-99) mg/dL Calcium 7.8 L (8.4-10.2) mg/dL Total Bilirubin 4.3 H (0.2-1.3) mg/dL AST 165 H (17-59) U/L ALT 269 H (21-72) U/L Alkaline Phosphatase 179 H (38-126) U/L Total Protein 5.1 L (6.3-8.2) g/dL Albumin 2.3 L (3.5-5.0) g/dL Procalcitonin (0.02-0.09) ng/mL 11/28/17 11/28/17 11/28/17 Range/Units 04:58 05:04 07:02 WBC (3.8-10.6) k/uL RBC (4.30-5.90) m/uL Hgb (13.0-17.5) gm/dL Hct (39.0-53.0) % RDW (11.5-15.5) % Plt Count (150-450) k/uL Neutrophils # (1.3-7.7) k/uL Lymphocytes # (1.0-4.8) k/uL PT (9.0-12.0) sec INR (<1.2) APTT (22.0-30.0) sec ABG pO2 152 H (83-108) mmHg ABG O2 Saturation 98.9 H (94-97) % Chloride (98-107) mmol/L BUN (9-20) mg/dL Creatinine (0.66-1.25) mg/dL Glucose (74-99) mg/dL POC Glucose (mg/dL) 144 H 149 H (75-99) mg/dL Calcium (8.4-10.2) mg/dL Total Bilirubin (0.2-1.3) mg/dL AST (17-59) U/L ALT (21-72) U/L Alkaline Phosphatase (38-126) U/L Total Protein (6.3-8.2) g/dL Albumin (3.5-5.0) g/dL Procalcitonin (0.02-0.09) ng/mL 11/28/17 11/28/17 11/28/17 Range/Units 08:09 10:18 12:19 WBC (3.8-10.6) k/uL RBC (4.30-5.90) m/uL Hgb (13.0-17.5) gm/dL Hct (39.0-53.0) % RDW (11.5-15.5) % Plt Count (150-450) k/uL Neutrophils # (1.3-7.7) k/uL Lymphocytes # (1.0-4.8) k/uL PT (9.0-12.0) sec INR (<1.2) APTT (22.0-30.0) sec ABG pO2 (83-108) mmHg ABG O2 Saturation (94-97) % Chloride (98-107) mmol/L BUN (9-20) mg/dL Creatinine (0.66-1.25) mg/dL Glucose (74-99) mg/dL POC Glucose (mg/dL) 152 H 139 H 130 H (75-99) mg/dL Calcium (8.4-10.2) mg/dL Total Bilirubin (0.2-1.3) mg/dL AST (17-59) U/L ALT (21-72) U/L Alkaline Phosphatase (38-126) U/L Total Protein (6.3-8.2) g/dL Albumin (3.5-5.0) g/dL Procalcitonin (0.02-0.09) ng/mL 11/28/17 11/28/17 11/28/17 Range/Units 14:17 16:16 18:05 WBC (3.8-10.6) k/uL RBC (4.30-5.90) m/uL Hgb (13.0-17.5) gm/dL Hct (39.0-53.0) % RDW (11.5-15.5) % Plt Count (150-450) k/uL Neutrophils # (1.3-7.7) k/uL Lymphocytes # (1.0-4.8) k/uL PT (9.0-12.0) sec INR (<1.2) APTT (22.0-30.0) sec ABG pO2 (83-108) mmHg ABG O2 Saturation (94-97) % Chloride (98-107) mmol/L BUN (9-20) mg/dL Creatinine (0.66-1.25) mg/dL Glucose (74-99) mg/dL POC Glucose (mg/dL) 138 H 131 H 145 H (75-99) mg/dL Calcium (8.4-10.2) mg/dL Total Bilirubin (0.2-1.3) mg/dL AST (17-59) U/L ALT (21-72) U/L Alkaline Phosphatase (38-126) U/L Total Protein (6.3-8.2) g/dL Albumin (3.5-5.0) g/dL Procalcitonin (0.02-0.09) ng/mL Microbiology - Last 24 Hours (Table) 11/24/17 10:25 Blood Culture - Preliminary Blood No Growth after 96 hours 11/24/17 10:51 Blood Culture - Preliminary Blood No Growth after 96 hours 11/24/17 20:30 Gram Stain - Final Sputum Sputum Culture - Final Klebsiella oxytoca Assessment and Plan Assessment: 1. Status post mitral valve repair. 2. Acute respiratory failure with hypoxia. 3. Acute encephalopathy. 4. Leukocytosis. 5. Profound hypotension requiring vasopressors. 6. Ischemic cardiomyopathy. 7. Uncontrolled diabetes. 8. Shock liver. 9. Acute kidney injury on chronic kidney disease. 10. Thrombocytopenia. 11. Atrial fibrillation Would continue supportive care wean off ventilator when appropriate by critical care we will continue following up on cultures and we will discuss CODE STATUS with family. Patient would benefit from CT scan of the head and EEG and we will follow up with neurology recommendation and that regard. We'll continue monitoring vital signs closely lipid blood work in the morning and continue supportive care
[2017-11-28 21:29] LABS: Glucose,Whole Blood 141 mg/dL (75-99)
[2017-11-28] MEDS: MELATONIN 5 MG TABLET PO SCH (21:48)
[2017-11-28] MEDS: ATORVASTATIN 40 MG TAB PO SCH (21:48)
[2017-11-28] MEDS: prednisoLONE ACETATE 1% OPHTH DROPS 5 ML BTL LEFT EYE SCH (21:49)
[2017-11-28] MEDS: ERYTHROMYCIN 5 MG/GM OPHTH OINT 3.5 GM TUBE LEFT EYE SCH (21:49)
[2017-11-28] MEDS: SENNOSIDES-DOCUSATE SODIUM 1 EACH TAB PO SCH (22:13)
[2017-11-29 00:21] LABS: Glucose,Whole Blood 120 mg/dL (75-99)
[2017-11-29] MEDS: HEPARIN SODIUM,PORCINE 5,000 UNIT/ML 1 ML VIAL SQ SCH ×3 (00:25→15:47)
[2017-11-29] MEDS: PIPERACILLIN-TAZOBACTAM 3.375 GM in DEXTROSE/WATER 1 50ML.BAG IVPB SCH ×3 (00:26→16:51)
[2017-11-29] MEDS: MILRINONE-D5W PMX 20 MG in DEXTROSE/WATER 1 100ML.BAG IV SCH ×3 (00:33→13:23)
[2017-11-29 02:11] LABS: Glucose,Whole Blood 120 mg/dL (75-99)
[2017-11-29 05:25] LABS: Ionized Calcium 4.8 mg/dL (4.5-5.3)
[2017-11-29 05:28] LABS: INR 1.2 (<1.2); Partial Thromboplastin Time 30.7 sec (22.0-30.0); Prothrombin Time 11.8 sec (9.0-12.0)
[2017-11-29 05:34] LABS: Albumin 2.3 g/dL (3.5-5.0); Calcium 8.2 mg/dL (8.4-10.2); Magnesium 2.3 mg/dL (1.6-2.3); Phosphorus 4.3 mg/dL (2.5-4.5); Potassium 3.8 mmol/L (3.5-5.1); Total Bilirubin 3.7 mg/dL (0.2-1.3); Total Protein 5.1 g/dL (6.3-8.2)
[2017-11-29 05:36] LABS: Anisocytosis Slight; Hypochromasia Slight; MCH 28.6 pg (25.0-35.0); MCHC 31.5 g/dL (31.0-37.0); MCV 90.7 fL (80.0-100.0); Mean Platelet Volume 10.2; Platelet Count 106 k/uL (150-450); Poikilocytosis Slight; RBC 2.42 m/uL (4.30-5.90); RDW 19.7 % (11.5-15.5); WBC 17.4 k/uL (3.8-10.6)
[2017-11-29 05:40] LABS: HGB 6.9 gm/dL (13.0-17.5)
[2017-11-29 06:00] LABS: ABG HCO3 26 mmol/L (21-25); ABG PCO2 37 mmHg (35-45); ABG PH 7.46 (7.35-7.45); ABG PO2 149 mmHg (83-108); ABG TCO2 27 mmol/L (19-24)
[2017-11-29 06:09] LABS: Glucose,Whole Blood 140 mg/dL (75-99)
[2017-11-29] MEDS ORDERED: Potassium Replacement Protocol 1 EACH MISC MISCELLANE PRN (06:43)
[2017-11-29] MEDS: IPRATROPIUM-ALBUTEROL 3 ML NEB INHALATION SCH ×4 (07:04→19:11)
[2017-11-29 07:42] LABS: Lymphocytes # (M) 0.52 k/uL (1.0-4.8); Monocytes # (M) 0.52 k/uL (0-1.0); Neutrophils # (M) 16.36 k/uL (1.3-7.7); Neutrophils % (M) 94 %; Nucleated Red Blood Cells 0 /100 WBC (0-0); Poikilocytosis (M) Present; Polychromasia Present; Target Cells Present; Total Cells Counted 100
[2017-11-29 07:43] LABS: Large Platelets Present
[2017-11-29 07:44] LABS: Crenated RBC Present
--- NOTE | 2017-11-29 08:09 | XR ---
EXAMINATION TYPE: XR chest 1V portable DATE OF EXAM: 11/29/2017 COMPARISON: November 28, 2017 HISTORY: SOB, Follow Up FINDINGS: Indwelling tubes and catheters are unchanged with the exception of removal left-sided chest tube. No evidence for pneumothorax. No change in bibasilar opacities. Stable appearance of the cardio-mediastinal structures at this time. Pleural effusion unchanged. IMPRESSION: 1. Stable portable chest. Clinical correlation and follow up until resolution is recommended.
[2017-11-29 08:13] LABS: Glucose,Whole Blood 136 mg/dL (75-99)
--- NOTE | 2017-11-29 08:26 | P.PN ---
Subjective Progress Note Date: 11/29/17 Principal diagnosis: Respiratory failure status post bypass grafting postop day #11 status post mitral valve repair, postop day #11 Progress note dated 11/29/2017 72-year-old male who is postop day #11, status post bypass grafting and mitral valve repair. He also has a history of shock, cardiomyopathy, diabetes mellitus , mitral regurgitation, history of remote nicotine dependence postoperative anemia diabetic retinopathy acute hepatocellular injury acute kidney injury ischemic colitis thrombocytopenia, chronic atrial fibrillation and hypoxemic respiratory failure. The patient currently is on the ventilator and the volume control plus mode. Vent settings include the assist control mode rate of 14, tidal volume 500 FiO2 35% PEEP of 5. PO2 was 149 pCO2 was 37 and pH of 7.46. The patient's currently not on any sedation. I switch him over to PSV of 13 CPAP of 5. Currently he is on IV Primacor 0.2 mics per kilogram per minute, insulin at 2.5 units an hour saline IV KVO and vital high protein at 42 with a goal of 42 mL an hour. The patient was admitted on the had a surgery on November 17 was extubated initially on the and reintubated on November 24. We did drop his FiO2 from 35-30% given a PaO2 of 149. Chest x-ray shows possible changes as well as a right-sided pleural effusion. Relatively small. Objective - Vital Signs Vital signs: Vital Signs Temp 97.7 F 11/29/17 04:00 Pulse 89 11/29/17 07:05 Resp 23 11/29/17 07:00 BP 119/61 11/29/17 07:00 Pulse Ox 98 11/29/17 07:00 Intake & Output 11/28/17 11/29/17 11/29/17 18:59 06:59 18:59 Intake Total 365.419 7079.464 Output Total 1720 1130 Balance -770.487 32.464 Weight 84.8 kg 85 kg Intake: IV 507.2 326.6 KVO 260 Milrinone-D5W 55.2 4.6 Piperacillin-Tazobactam 3 100 50 .375 gm In Dextrose/Water 1 50ml.bag @ 12.5 mls/hr IVPB Q8HR [facility] Rx#: [id number] Pressure Bags 72 12 Sodium Chloride 0.9% 1, 280 000 ml @ 40 mls/hr IV . Q24H [facility] Rx#:[id number] Intake, IV Titration 194.313 115.864 Amount Calcium Chloride 1,000 mg 100 In Sodium Chloride 0.9% 100 ml @ 100 mls/hr IVPB ONCE [facility] Rx#:[id number] Insulin Regular 100 unit 40.066 24.761 In Sodium Chloride 0.9% 100 ml @ Per Protocol IV .Q0M [facility] Rx#:[id number] Milrinone-D5w Pmx 20 mg 91.103 In Dextrose/Water 1 100ml .bag @ 0.2 MCG/KG/MIN 4. 66 mls/hr IV .[id number] [facility] Rx#:[id number] Propofol 1,000 mg In 54.247 Empty Bag 1 bag @ Titrate IV .Q0M [facility] Rx#: [id number] Tube Feeding 168 630 Other 80 90 Output: Chest Tube Drainage 255 210 left pleural 75 right pleural 180 210 Urine 1465 920 Other: Voiding Method Indwelling Catheter Indwelling Catheter # Bowel Movements 1 ABP, PAP, CO, CI - Last Documented Arterial Blood Pressure 135/57 Pulmonary Artery Pressure 40/15 Cardiac Output 5.0 Cardiac Index 2.7 - Exam No acute distress, intubated, with an oral endotracheal tube in place. NG tube also noted. HEENT examination is grossly unremarkable. Mucous membranes are moist. Neck supple. Full range of motion. No adenopathy thyromegaly or neck vein distention. Cardiovascular examination reveals regular rhythm rate. S1-S2 normal. No S3 or S4. No discernible murmur noted. Heart sounds are distant. Lungs reveal scattered diffuse rhonchi. Breath sounds equal. No crackles. No wheezes. Abdomen soft, bowel sounds are heard. No masses or tenderness. Extremities are intact. No cyanosis clubbing or edema. Skin is without rash or lesion. Neurologic examination is difficult to assess. - Labs CBC & Chem 7: 11/29/17 05:00 11/29/17 05:00 Labs: Abnormal Lab Results - Last 24 Hours (Table) 11/27/17 11/28/17 11/28/17 Range/Units 09:50 10:18 12:19 WBC (3.8-10.6) k/uL RBC (4.30-5.90) m/uL Hgb (13.0-17.5) gm/dL Hct (39.0-53.0) % RDW (11.5-15.5) % Plt Count (150-450) k/uL Neutrophils # (Manual) (1.3-7.7) k/uL Lymphocytes # (Manual) (1.0-4.8) k/uL INR (<1.2) APTT (22.0-30.0) sec ABG pH (7.35-7.45) ABG pO2 (83-108) mmHg ABG HCO3 (21-25) mmol/L ABG Total CO2 (19-24) mmol/L ABG O2 Saturation (94-97) % Sodium (137-145) mmol/L Chloride (98-107) mmol/L BUN (9-20) mg/dL Creatinine (0.66-1.25) mg/dL Glucose (74-99) mg/dL POC Glucose (mg/dL) 139 H 130 H (75-99) mg/dL Calcium (8.4-10.2) mg/dL Total Bilirubin (0.2-1.3) mg/dL AST (17-59) U/L ALT (21-72) U/L Alkaline Phosphatase (38-126) U/L Total Protein (6.3-8.2) g/dL Albumin (3.5-5.0) g/dL Procalcitonin 1.79 H (0.02-0.09) ng/mL 11/28/17 11/28/17 11/28/17 Range/Units 14:17 16:16 18:05 WBC (3.8-10.6) k/uL RBC (4.30-5.90) m/uL Hgb (13.0-17.5) gm/dL Hct (39.0-53.0) % RDW (11.5-15.5) % Plt Count (150-450) k/uL Neutrophils # (Manual) (1.3-7.7) k/uL Lymphocytes # (Manual) (1.0-4.8) k/uL INR (<1.2) APTT (22.0-30.0) sec ABG pH (7.35-7.45) ABG pO2 (83-108) mmHg ABG HCO3 (21-25) mmol/L ABG Total CO2 (19-24) mmol/L ABG O2 Saturation (94-97) % Sodium (137-145) mmol/L Chloride (98-107) mmol/L BUN (9-20) mg/dL Creatinine (0.66-1.25) mg/dL Glucose (74-99) mg/dL POC Glucose (mg/dL) 138 H 131 H 145 H (75-99) mg/dL Calcium (8.4-10.2) mg/dL Total Bilirubin (0.2-1.3) mg/dL AST (17-59) U/L ALT (21-72) U/L Alkaline Phosphatase (38-126) U/L Total Protein (6.3-8.2) g/dL Albumin (3.5-5.0) g/dL Procalcitonin (0.02-0.09) ng/mL 11/28/17 11/29/17 11/29/17 Range/Units 21:27 00:18 02:10 WBC (3.8-10.6) k/uL RBC (4.30-5.90) m/uL Hgb (13.0-17.5) gm/dL Hct (39.0-53.0) % RDW (11.5-15.5) % Plt Count (150-450) k/uL Neutrophils # (Manual) (1.3-7.7) k/uL Lymphocytes # (Manual) (1.0-4.8) k/uL INR (<1.2) APTT (22.0-30.0) sec ABG pH (7.35-7.45) ABG pO2 (83-108) mmHg ABG HCO3 (21-25) mmol/L ABG Total CO2 (19-24) mmol/L ABG O2 Saturation (94-97) % Sodium (137-145) mmol/L Chloride (98-107) mmol/L BUN (9-20) mg/dL Creatinine (0.66-1.25) mg/dL Glucose (74-99) mg/dL POC Glucose (mg/dL) 141 H 120 H 120 H (75-99) mg/dL Calcium (8.4-10.2) mg/dL Total Bilirubin (0.2-1.3) mg/dL AST (17-59) U/L ALT (21-72) U/L Alkaline Phosphatase (38-126) U/L Total Protein (6.3-8.2) g/dL Albumin (3.5-5.0) g/dL Procalcitonin (0.02-0.09) ng/mL 11/29/17 11/29/17 11/29/17 Range/Units 05:00 05:00 05:00 WBC 17.4 H (3.8-10.6) k/uL RBC 2.42 L (4.30-5.90) m/uL Hgb 6.9 L* (13.0-17.5) gm/dL Hct 22.0 L (39.0-53.0) % RDW 19.7 H (11.5-15.5) % Plt Count 106 L (150-450) k/uL Neutrophils # (Manual) 16.36 H (1.3-7.7) k/uL Lymphocytes # (Manual) 0.52 L (1.0-4.8) k/uL INR 1.2 H (<1.2) APTT 30.7 H (22.0-30.0) sec ABG pH (7.35-7.45) ABG pO2 (83-108) mmHg ABG HCO3 (21-25) mmol/L ABG Total CO2 (19-24) mmol/L ABG O2 Saturation (94-97) % Sodium 147 H (137-145) mmol/L Chloride 113 H (98-107) mmol/L BUN 131 H* (9-20) mg/dL Creatinine 1.60 H (0.66-1.25) mg/dL Glucose 127 H (74-99) mg/dL POC Glucose (mg/dL) (75-99) mg/dL Calcium 8.2 L (8.4-10.2) mg/dL Total Bilirubin 3.7 H (0.2-1.3) mg/dL AST 123 H (17-59) U/L ALT 212 H (21-72) U/L Alkaline Phosphatase 204 H (38-126) U/L Total Protein 5.1 L (6.3-8.2) g/dL Albumin 2.3 L (3.5-5.0) g/dL Procalcitonin (0.02-0.09) ng/mL 11/29/17 11/29/17 11/29/17 Range/Units 05:19 06:08 08:09 WBC (3.8-10.6) k/uL RBC (4.30-5.90) m/uL Hgb (13.0-17.5) gm/dL Hct (39.0-53.0) % RDW (11.5-15.5) % Plt Count (150-450) k/uL Neutrophils # (Manual) (1.3-7.7) k/uL Lymphocytes # (Manual) (1.0-4.8) k/uL INR (<1.2) APTT (22.0-30.0) sec ABG pH 7.46 H (7.35-7.45) ABG pO2 149 H (83-108) mmHg ABG HCO3 26 H (21-25) mmol/L ABG Total CO2 27 H (19-24) mmol/L ABG O2 Saturation 100.0 H (94-97) % Sodium (137-145) mmol/L Chloride (98-107) mmol/L BUN (9-20) mg/dL Creatinine (0.66-1.25) mg/dL Glucose (74-99) mg/dL POC Glucose (mg/dL) 140 H 136 H (75-99) mg/dL Calcium (8.4-10.2) mg/dL Total Bilirubin (0.2-1.3) mg/dL AST (17-59) U/L ALT (21-72) U/L Alkaline Phosphatase (38-126) U/L Total Protein (6.3-8.2) g/dL Albumin (3.5-5.0) g/dL Procalcitonin (0.02-0.09) ng/mL Microbiology - Last 24 Hours (Table) 11/24/17 10:25 Blood Culture - Preliminary Blood No Growth after 96 hours 11/24/17 10:51 Blood Culture - Preliminary Blood No Growth after 96 hours 11/24/17 20:30 Gram Stain - Final Sputum Sputum Culture - Final Klebsiella oxytoca Assessment and Plan Assessment: Assessment Status post bypass grafting, postop day #11 Postoperative ventilator management. Status post initial extubation on November 18 and reintubation on November 24. Postop day #11, status post mitral valve repair for mitral regurgitation Ischemic cardiomyopathy Type 2 diabetes mellitus History of kidney nicotine dependence Postoperative anemia Diabetic retinopathy Shock liver Acute kidney injury Ischemic colitis Thrombocytopenia Chronic atrial fibrillation Acute hypoxemic respiratory failure Plan: Plan dated 11/29/2017 The patient's labs and x-rays are all reviewed. Medications are reviewed. The patient will be switched over to pressure support of 13 and CPAP of 5. We'll drop the FiO2 down to 30%. I'll repeat a blood gas in one hour. The patient's chest x-ray shows a right-sided pleural effusion. The patient was initially extubated on November 18 and reintubated on November 24. The patient remains on IV Primacor insulin drip at KVO fluids and is being nourished vital high protein at goal. Blood gases are reasonable. PaO2 of 149 PaCO2 37 and a pH of 7.46. The patient's currently not on any sedation. We'll attempt to wean him if possible. White count is 17.4 hemoglobin 6.9 hematocrit 22.0 platelet count 106 ,000. Sodium is 147 potassium 3.8 chloride is 113 and CO2 is 26 BUN and creatinine are 131 and 1.0. AST 123 ALT 212 alkaline phosphatase 204. Total bilirubin is 3.7. Sputum from November showed Klebsiella oxytoca. Arterial blood gases will be repeated in one hour. The patient needs additional water flushes given the increasing sodium and chloride levels. Prognosis is guarded. Critical care time 38 minutes Time with Patient: Greater than 30
[2017-11-29] MEDS: SENNOSIDES-DOCUSATE SODIUM 1 EACH TAB PO SCH (08:45)
[2017-11-29] MEDS ORDERED: amLODIPine 5 MG TAB PO SCH (09:00)
--- NOTE | 2017-11-29 09:12 | P.PN ---
Subjective Progress Note Date: 11/29/17 Principal diagnosis: Triple-vessel coronary artery disease. Severe ischemic cardiomyopathy. Moderate mitral valve regurgitation. Mild tricuspid valve regurgitation. Diabetes mellitus with preoperative hemoglobin A1c 6.7%. Hyperlipidemia. Moderate to severe restrictive lung disease with preoperative FEV1 43% of predicted. Evidence of diffuse calcific coronary artery disease. 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 Previous tobacco dependence. POD #13 placement of preoperative intra-aortic balloon pump POD #12 quadruple coronary artery bypass grafting using the left internal mammary artery to the left anterior descending artery, reverse saphenous vein graft from the aorta to the diagonal artery, reverse saphenous vein graft from the aorta to the first obtuse marginal artery, reverse saphenous vein graft from the aorta to the posterior descending artery. Mitral valve repair using a complete ring annuloplasty with a 30 mm Kapoor IMR ring. Exclusion of the left atrial appendage using a 35 mm Atriclip. Intraoperative transesophageal echocardiogram and epi-aortic scanning. Intraoperative graft flow measurements using the [employer] system. Post operative normocytic, normochromic anemia, an expected outcome of surgery. Postoperative thrombocytopenia, an expected outcome of surgery. Postoperative atrial fibrillation, an expected outcome of surgery. Postoperative elevated transaminases, an unexpected outcome of surgery, likely secondary to low flow state post surgery. Postoperative acute kidney injury, an unexpected outcome of surgery, likely secondary to low flow state post surgery. Postoperative acute metabolic acidosis, lactic acidosis, reintubation, an unexpected outcome. Postoperative cardiogenic shock, an unexpected outcome. The patient remains intubated, off sedation since yesterday morning. He is alert, nods his head yes appropriately, and squeezes hands. He remains on Primacor at 0.2 mcg/kg/min, levo has been off since last night, vaso has been off greater than 24 hours and insulin drip. CVP has been 15-22. His urine output was 600 mL overnight. His BUN this morning is 131, creatinine is down to 1.6. Liver enzymes continue to improve. Hemaglobin this morning is 6.9 from 7.4. White blood cell count has decreased 17.4 from 20.4, currently on zosyn with sputum culture growing Klebsiella oxytoca, platelet count has increased. Arterial blood gases are stable. He is currently in normal sinus rhythm with heart rate in the 80s. Cortisol level 29, was > 123 on 11/23, triglycerides 100, CK-MB 8.4, ammonia level 37. He is tolerating tube feedings with no residual. He is currently on CPAP trial. Left pleural chest tube was discontinued yesterday. He remains critical but his clinical picture shows improvement. Objective - Vital Signs Vital signs: Vital Signs Temp 97.7 F 11/29/17 04:00 Pulse 89 11/29/17 07:05 Resp 23 11/29/17 07:00 BP 119/61 11/29/17 07:00 Pulse Ox 98 11/29/17 07:00 Intake & Output 11/28/17 11/29/17 11/29/17 18:59 06:59 18:59 Intake Total 008.476 0467.464 Output Total 1720 1130 Balance -770.487 32.464 Weight 84.8 kg 85 kg Intake: IV 507.2 326.6 KVO 260 Milrinone-D5W 55.2 4.6 Piperacillin-Tazobactam 3 100 50 .375 gm In Dextrose/Water 1 50ml.bag @ 12.5 mls/hr IVPB Q8HR [facility] Rx#: [id number] Pressure Bags 72 12 Sodium Chloride 0.9% 1, 280 000 ml @ 40 mls/hr IV . Q24H [facility] Rx#:[id number] Intake, IV Titration 194.313 115.864 Amount Calcium Chloride 1,000 mg 100 In Sodium Chloride 0.9% 100 ml @ 100 mls/hr IVPB ONCE [facility] Rx#:[id number] Insulin Regular 100 unit 40.066 24.761 In Sodium Chloride 0.9% 100 ml @ Per Protocol IV .Q0M [facility] Rx#:[id number] Milrinone-D5w Pmx 20 mg 91.103 In Dextrose/Water 1 100ml .bag @ 0.2 MCG/KG/MIN 4. 66 mls/hr IV .[id number] [facility] Rx#:[id number] Propofol 1,000 mg In 54.247 Empty Bag 1 bag @ Titrate IV .Q0M [facility] Rx#: [id number] Tube Feeding 168 630 Other 80 90 Output: Chest Tube Drainage 255 210 left pleural 75 right pleural 180 210 Urine 1465 920 Other: Voiding Method Indwelling Catheter Indwelling Catheter # Bowel Movements 1 ABP, PAP, CO, CI - Last Documented Arterial Blood Pressure 135/57 Pulmonary Artery Pressure 40/15 Cardiac Output 5.0 Cardiac Index 2.7 - Constitutional General appearance: Present: cooperative, no acute distress - Respiratory Details: Lungs sounds diminished bilaterally. Respirations even, nonlabored on mechanical ventilation. Ventilator settings assist control mode, FiO2 35%, tidal volume 500, respiratory rate 14, PEEP 5, currently on CPAP mode. ABGs this morning 7.46/37/149/26/100%/2.0. 8.0 ET tube present, 25 at the lip. Right pleural chest tube to continuous wall suction, 140 mL serous drainage in the last 8 hours, 300 mL in 24 hours. No air leaks present. - Cardiovascular Details: S1, S2 present. Regular rate and rhythm, sinus rhythm on telemetry. Sternum stable. A/V epicardial pacemaker wires present, grounded. Palpable peripheral pulses bilaterally. Bilateral lower extremity, scrotal edema present. Right radial arterial line, left brachial PICC line, left internal jugular triple- lumen central line present. CVP 15-22. Levo has been off since last night, vasopressin has been off greater than 24 hours, Primacor currently at 0.02 mcg/ kg/min. Heart hugger, antiembolism stockings, SCDs present. - Gastrointestinal Gastrointestinal Comment(s): Abdomen soft, nontender, nondistended. Active bowel sounds present 4 quadrants. OG tube present, vital tube feedings infusing at 42 mL/h with no residual per nursing. Fecal management system present, yellowish brown liquid stool, occult blood positive, C. diff negative. - Genitourinary Genitourinary Comment(s): Fong present draining clear yellow urine. Output 650 mL overnight without diuretics. - Integumentary Integumentary Comment(s): Skin warm and dry, right great toe with blue spot likely from high-dose levo. Sternal incision well approximated and covered with dry intact dressing. Left lower extremity EVH site well approximated. Stage II pressure ulcer to coccyx, covered by Optisol foam dressing. - Neurologic Neurologic Comment(s): Currently on mechanical ventilation with no sedation. Does open eyes, nods head yes appropriately, squeezes bilateral hands. - Musculoskeletal Musculoskeletal: Present: generalized weakness - Allied health notes Allied health notes reviewed: nursing - Labs CBC & Chem 7: 11/29/17 05:00 11/29/17 05:00 Labs: Abnormal Lab Results - Last 24 Hours (Table) 11/27/17 11/28/17 11/28/17 Range/Units 09:50 10:18 12:19 WBC (3.8-10.6) k/uL RBC (4.30-5.90) m/uL Hgb (13.0-17.5) gm/dL Hct (39.0-53.0) % RDW (11.5-15.5) % Plt Count (150-450) k/uL Neutrophils # (Manual) (1.3-7.7) k/uL Lymphocytes # (Manual) (1.0-4.8) k/uL INR (<1.2) APTT (22.0-30.0) sec ABG pH (7.35-7.45) ABG pO2 (83-108) mmHg ABG HCO3 (21-25) mmol/L ABG Total CO2 (19-24) mmol/L ABG O2 Saturation (94-97) % Sodium (137-145) mmol/L Chloride (98-107) mmol/L BUN (9-20) mg/dL Creatinine (0.66-1.25) mg/dL Glucose (74-99) mg/dL POC Glucose (mg/dL) 139 H 130 H (75-99) mg/dL Calcium (8.4-10.2) mg/dL Total Bilirubin (0.2-1.3) mg/dL AST (17-59) U/L ALT (21-72) U/L Alkaline Phosphatase (38-126) U/L Total Protein (6.3-8.2) g/dL Albumin (3.5-5.0) g/dL Procalcitonin 1.79 H (0.02-0.09) ng/mL 11/28/17 11/28/17 11/28/17 Range/Units 14:17 16:16 18:05 WBC (3.8-10.6) k/uL RBC (4.30-5.90) m/uL Hgb (13.0-17.5) gm/dL Hct (39.0-53.0) % RDW (11.5-15.5) % Plt Count (150-450) k/uL Neutrophils # (Manual) (1.3-7.7) k/uL Lymphocytes # (Manual) (1.0-4.8) k/uL INR (<1.2) APTT (22.0-30.0) sec ABG pH (7.35-7.45) ABG pO2 (83-108) mmHg ABG HCO3 (21-25) mmol/L ABG Total CO2 (19-24) mmol/L ABG O2 Saturation (94-97) % Sodium (137-145) mmol/L Chloride (98-107) mmol/L BUN (9-20) mg/dL Creatinine (0.66-1.25) mg/dL Glucose (74-99) mg/dL POC Glucose (mg/dL) 138 H 131 H 145 H (75-99) mg/dL Calcium (8.4-10.2) mg/dL Total Bilirubin (0.2-1.3) mg/dL AST (17-59) U/L ALT (21-72) U/L Alkaline Phosphatase (38-126) U/L Total Protein (6.3-8.2) g/dL Albumin (3.5-5.0) g/dL Procalcitonin (0.02-0.09) ng/mL 11/28/17 11/29/17 11/29/17 Range/Units 21:27 00:18 02:10 WBC (3.8-10.6) k/uL RBC (4.30-5.90) m/uL Hgb (13.0-17.5) gm/dL Hct (39.0-53.0) % RDW (11.5-15.5) % Plt Count (150-450) k/uL Neutrophils # (Manual) (1.3-7.7) k/uL Lymphocytes # (Manual) (1.0-4.8) k/uL INR (<1.2) APTT (22.0-30.0) sec ABG pH (7.35-7.45) ABG pO2 (83-108) mmHg ABG HCO3 (21-25) mmol/L ABG Total CO2 (19-24) mmol/L ABG O2 Saturation (94-97) % Sodium (137-145) mmol/L Chloride (98-107) mmol/L BUN (9-20) mg/dL Creatinine (0.66-1.25) mg/dL Glucose (74-99) mg/dL POC Glucose (mg/dL) 141 H 120 H 120 H (75-99) mg/dL Calcium (8.4-10.2) mg/dL Total Bilirubin (0.2-1.3) mg/dL AST (17-59) U/L ALT (21-72) U/L Alkaline Phosphatase (38-126) U/L Total Protein (6.3-8.2) g/dL Albumin (3.5-5.0) g/dL Procalcitonin (0.02-0.09) ng/mL 11/29/17 11/29/17 11/29/17 Range/Units 05:00 05:00 05:00 WBC 17.4 H (3.8-10.6) k/uL RBC 2.42 L (4.30-5.90) m/uL Hgb 6.9 L* (13.0-17.5) gm/dL Hct 22.0 L (39.0-53.0) % RDW 19.7 H (11.5-15.5) % Plt Count 106 L (150-450) k/uL Neutrophils # (Manual) 16.36 H (1.3-7.7) k/uL Lymphocytes # (Manual) 0.52 L (1.0-4.8) k/uL INR 1.2 H (<1.2) APTT 30.7 H (22.0-30.0) sec ABG pH (7.35-7.45) ABG pO2 (83-108) mmHg ABG HCO3 (21-25) mmol/L ABG Total CO2 (19-24) mmol/L ABG O2 Saturation (94-97) % Sodium 147 H (137-145) mmol/L Chloride 113 H (98-107) mmol/L BUN 131 H* (9-20) mg/dL Creatinine 1.60 H (0.66-1.25) mg/dL Glucose 127 H (74-99) mg/dL POC Glucose (mg/dL) (75-99) mg/dL Calcium 8.2 L (8.4-10.2) mg/dL Total Bilirubin 3.7 H (0.2-1.3) mg/dL AST 123 H (17-59) U/L ALT 212 H (21-72) U/L Alkaline Phosphatase 204 H (38-126) U/L Total Protein 5.1 L (6.3-8.2) g/dL Albumin 2.3 L (3.5-5.0) g/dL Procalcitonin (0.02-0.09) ng/mL 11/29/17 11/29/17 11/29/17 Range/Units 05:19 06:08 08:09 WBC (3.8-10.6) k/uL RBC (4.30-5.90) m/uL Hgb (13.0-17.5) gm/dL Hct (39.0-53.0) % RDW (11.5-15.5) % Plt Count (150-450) k/uL Neutrophils # (Manual) (1.3-7.7) k/uL Lymphocytes # (Manual) (1.0-4.8) k/uL INR (<1.2) APTT (22.0-30.0) sec ABG pH 7.46 H (7.35-7.45) ABG pO2 149 H (83-108) mmHg ABG HCO3 26 H (21-25) mmol/L ABG Total CO2 27 H (19-24) mmol/L ABG O2 Saturation 100.0 H (94-97) % Sodium (137-145) mmol/L Chloride (98-107) mmol/L BUN (9-20) mg/dL Creatinine (0.66-1.25) mg/dL Glucose (74-99) mg/dL POC Glucose (mg/dL) 140 H 136 H (75-99) mg/dL Calcium (8.4-10.2) mg/dL Total Bilirubin (0.2-1.3) mg/dL AST (17-59) U/L ALT (21-72) U/L Alkaline Phosphatase (38-126) U/L Total Protein (6.3-8.2) g/dL Albumin (3.5-5.0) g/dL Procalcitonin (0.02-0.09) ng/mL Microbiology - Last 24 Hours (Table) 11/24/17 10:25 Blood Culture - Preliminary Blood No Growth after 96 hours 11/24/17 10:51 Blood Culture - Preliminary Blood No Growth after 96 hours 11/24/17 20:30 Gram Stain - Final Sputum Sputum Culture - Final Klebsiella oxytoca - Imaging and Cardiology Chest x-ray: report reviewed, image reviewed Assessment and Plan (1) Congestive heart failure with cardiomyopathy Current Visit: Yes Status: Chronic Code(s): I50.9 - HEART FAILURE, UNSPECIFIED; I42.9 - CARDIOMYOPATHY, UNSPECIFIED SNOMED Code(s): 15027677 (2) Ischemic cardiomyopathy Current Visit: Yes Status: Chronic Code(s): I25.5 - ISCHEMIC CARDIOMYOPATHY SNOMED Code(s): 688265052 (3) Coronary artery disease Current Visit: Yes Status: Chronic Code(s): I25.10 - ATHSCL HEART DISEASE OF [place] CORONARY ARTERY W/O ANG PCTRS SNOMED Code(s): 68359744 (4) Diabetes mellitus Current Visit: Yes Status: Chronic Code(s): E11.9 - TYPE 2 DIABETES MELLITUS WITHOUT COMPLICATIONS SNOMED Code(s): 44074046 (5) Hyperlipidemia Current Visit: Yes Status: Chronic Code(s): E78.5 - HYPERLIPIDEMIA, UNSPECIFIED SNOMED Code(s): 49665143 (6) Mitral regurgitation Current Visit: Yes Status: Chronic Code(s): I34.0 - NONRHEUMATIC MITRAL ( VALVE) INSUFFICIENCY SNOMED Code(s): 80923128 (7) History of myocardial infarction Current Visit: No Status: Resolved Code(s): I25.2 - OLD MYOCARDIAL INFARCTION SNOMED Code(s): 940063231 (8) Tobacco dependence in remission Current Visit: No Status: Resolved Code(s): F17.201 - NICOTINE DEPENDENCE, UNSPECIFIED, IN REMISSION SNOMED Code(s): 284500044 Plan: 1. Continue low-dose aspirin, Plavix, subcu heparin. Monitor patient for bleeding. 2. Patient will receive 1 unit packed red blood cells followed by IV Lasix. 3. Continue beta michelle. Will increase beta michelle when able. Will add afterload reduction with Norvasc today. 4. Continue Statin. 5. Continue amiodarone for A. fib prophylaxis. Will decrease to 200 mg daily tomorrow. 6. Continue Primacor at 0.2 mcg/kg/min. 7. Continue tube feedings. Monitor for gastric residual. 8. No nephrotoxic, hepatotoxic agents. 9. Minimal IV fluids per nephrology. 10. Keep Fong catheter for strict accurate intake and output. Fong catheter changed 11/27/17. 11. Will keep right pleural chest tube for another 24 hours secondary to continued high output. 12. Ventilator management, bronchodilators per pulmonology. 13. No sedation today. Continue to assess neuro status. 14. Will monitor daily labs and x-rays. 15. Agree with Zosyn per pulmonology, sputum culture positive for Klebsiella oxytoca. Blood culture negative 96 hours, urine culture negative. 16. Pain control with current medication regimen. 17. GI/DVT prophylaxis. 18. C. diff negative, occult blood positive, will continue to monitor. Not safe to take off of aspirin, Plavix for any kind of endoscopy at this time. 19. Insulin drip/diabetic management per primary care service. 20. Continue full CODE STATUS. 21. Continued recommendations based on patient's progress. Time with Patient: Greater than 30
[2017-11-29 09:19] LABS: ABG PCO2 38 mmHg (35-45); ABG PH 7.43 (7.35-7.45); ABG PO2 119 mmHg (83-108)
[2017-11-29 09:20] LABS: ABG Base Excess 1.1 mmol/L; ABG HCO3 25 mmol/L (21-25)
[2017-11-29] MEDS: CHLORHEXIDINE GLUCONATE 15 ML CUP MUCOUS MEM SCH ×2 (09:29→20:40)
[2017-11-29] MEDS: AMIODARONE 200 MG TAB PO SCH ×2 (09:29→21:32)
[2017-11-29] MEDS: ARTIFICIAL TEARS OINTMENT 3.5 GM TUBE BOTH EYES PRN (09:29)
[2017-11-29] MEDS: CLOPIDOGREL 75 MG TAB PO SCH (09:29)
[2017-11-29] MEDS: ASCORBIC ACID 500 MG TAB PO SCH ×2 (09:29→16:51)
[2017-11-29] MEDS: ASPIRIN 81 MG PO SCH (09:29)
[2017-11-29] MEDS: PANTOPRAZOLE 40 MG/10 ML VIAL IVP SCH (09:30)
[2017-11-29] MEDS: POTASSIUM BICARBONATE/CIT AC 20 MEQ TABLET.EFF NG-TUBE SCH ×2 (09:30→11:53)
[2017-11-29] MEDS: METOPROLOL TARTRATE 12.5 MG TAB PO SCH ×2 (09:30→18:23)
[2017-11-29] MEDS: SERTRALINE 25 MG TAB PO SCH (09:31)
[2017-11-29 10:06] LABS: Glucose,Whole Blood 124 mg/dL (75-99)
--- NOTE | 2017-11-29 10:27 | CDI ---
Last Revision, March 2017 Documentation Clarification Form Date: 11/29/2017 10:10:25 AM From: Yolanda CalvertGARRET, CCDS Admit Date: 11/16/2017 7:31:00 AM Patient Name: Jerry Silva Visit Number: [id number] Discharge Date: ATTENTION: The Clinical Documentation Specialists (CDI) and [facility] Coding Staff appreciate your assistance in clarifying documentation. Please respond to the clarification below the line at the bottom and electronically sign. The CDI & [facility] Coding staff will review the response and follow-up if needed. Please note: Queries are made part of the Legal Health Record. If you have any questions, please contact the author of this message via ITS. Joyce Ruelas MD, Elijah Eason DO or Pan Agustin: Per your 11/22 consult: MARIAA, ATN, oliguric. Most likely an element of cardiorenal syndrome as well. Per the 11/21 Cardiology consult: "Patient is developing acute on chronic renal failure & Creatinine is increased to 1.8." Per the 11/25 Pulmonary consult: "MARIAA on top of chronic renal failure, improving...". History/Risk Factors: CAD, CHF, DM, Hyperlipidemia, [place], former smoker. 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 Admission BUN: 26, Current 131 Admission Creatinine: 0.96, Current: 1.60 Admission GFR: 79, Current: 42 Treatment: Routine postop CABG & MVR protocol, re-intubated on 11/24 for Acute Respiratory Failure, now in Acute Kidney Injury with ATN. Currently: IV Jose Cl/ Na Cl 100, NGT, IV Vasopressin, Heparin sq, IV Zosyn, IV Vancomycin, IV Lasix drip discontinued, IV Insuliin. Considering dialysis if renal function does not improve. In order to capture the severity of condition, please clarify if the condition signifies: CKD Stage 1 (GFR > 90) CKD Stage 2 (GFR 60-89) CKD Stage 3 (GFR 30-59) CKD Stage 4 (GFR 15-29) CKD Stage 5 (GFR <15) ESRD Other, please specify Unable to determine Please continue to document in your progress notes and discharge summary in order to capture severity of illness and risk of mortality. Include clinical findings that support your diagnosis. MTDD
[2017-11-29 10:48] LABS: Iron Saturation 7.69 (15.00-50.00)
[2017-11-29 12:01] LABS: Glucose,Whole Blood 135 mg/dL (75-99)
[2017-11-29] MEDS: INSULIN REGULAR 100 UNIT in SODIUM CHLORIDE 0.9% 100 ML IV SCH (12:01)
[2017-11-29] MEDS ORDERED: FUROSEMIDE 10 MG/ML 4 ML VIAL IV STA (12:12)
[2017-11-29] MEDS: DEXAMETHASONE SOD PHOSPHATE 4 MG/ML 1 ML VIAL IV SCH ×2 (12:48→18:07)
[2017-11-29] MEDS: FERROUS SULFATE 325 MG TAB PO SCH ×2 (13:04→18:27)
[2017-11-29] MEDS: MIDODRINE 5 MG TAB PO SCH ×2 (13:04→15:47)
[2017-11-29 13:59] LABS: Glucose,Whole Blood 140 mg/dL (75-99)
[2017-11-29] MEDS ORDERED: SODIUM FERRIC GLUCONAT-SUCROSE 125 MG in SODIUM CHLORIDE 0.9% 100 ML IVPB ONE (14:32)
--- NOTE | 2017-11-29 14:32 | P.PN ---
Subjective Patient is seen in follow-up for acute kidney injury. Creatinine was greater than 3 on admission and is down to 1.6 today. Patient underwent CABG and mitral valve repair this admission. Ejection fraction is 30-35%. Hemoglobin 6.9 today - currently receiving 1 units pRBC transfusion. He is off vasopressors. Maintained on tube feeds. He is nonoliguric. Vital signs are stable. General: The patient appeared well nourished and normally developed. HEENT: Head exam is unremarkable. Neck is without jugular venous distension. LUNGS: Breath sounds decreased. HEART: Rate and Rhythm are regular. First and second heart sounds normal. No murmurs, rubs or gallops. ABDOMEN: Abdominal exam reveals normal bowel sounds. Non-tender and non- distended. No evidence of peritonitis. EXTREMITITES: Trace edema. Objective - Vital Signs Vital signs: Vital Signs Temp 98.4 F 11/29/17 13:45 Pulse 89 11/29/17 14:00 Resp 24 11/29/17 14:00 BP 121/59 11/29/17 11:00 Pulse Ox 96 11/29/17 14:00 Intake & Output 11/28/17 11/29/17 11/29/17 18:59 06:59 18:59 Intake Total 359.315 4245.464 1131.152 Output Total 1720 1130 645 Balance -770.487 32.464 486.152 Weight 84.8 kg 85 kg 85 kg Intake: IV 507.2 326.6 156.0 KVO 260 70 Milrinone-D5W 55.2 4.6 Piperacillin-Tazobactam 3 100 50 50.0 .375 gm In Dextrose/Water 1 50ml.bag @ 12.5 mls/hr IVPB Q8HR JANNA Rx#: [id number] Pressure Bags 72 12 36 Sodium Chloride 0.9% 1, 280 000 ml @ 40 mls/hr IV . Q24H JANNA Rx#:[id number] Intake, IV Titration 194.313 115.864 13.152 Amount Calcium Chloride 1,000 mg 100 In Sodium Chloride 0.9% 100 ml @ 100 mls/hr IVPB ONCE [facility] Rx#:[id number] Insulin Regular 100 unit 40.066 24.761 13.152 In Sodium Chloride 0.9% 100 ml @ Per Protocol IV .Q0M JANNA Rx#:[id number] Milrinone-D5w Pmx 20 mg 91.103 In Dextrose/Water 1 100ml .bag @ 0.2 MCG/KG/MIN 4. 66 mls/hr IV .[id number] JANNA Rx#:[id number] Propofol 1,000 mg In 54.247 Empty Bag 1 bag @ Titrate IV .Q0M JANNA Rx#: [id number] Tube Feeding 168 630 252 Blood Product 495 Rc As-1 Unit 310 [id number] Other 80 90 215 Rc As-1 Unit 50 [id number] Output: Chest Tube Drainage 255 210 120 left pleural 75 right pleural 180 210 120 Urine 1465 920 525 Other: Voiding Method Indwelling Catheter Indwelling Catheter Indwelling Catheter # Bowel Movements 1 ABP, PAP, CO, CI - Last Documented Arterial Blood Pressure 142/53 Pulmonary Artery Pressure 40/15 Cardiac Output 5.0 Cardiac Index 2.7 - Labs CBC & Chem 7: 11/29/17 05:00 11/29/17 05:00 Labs: Abnormal Lab Results - Last 24 Hours (Table) 11/28/17 11/28/17 11/28/17 Range/Units 04:20 16:16 18:05 WBC (3.8-10.6) k/uL RBC (4.30-5.90) m/uL Hgb (13.0-17.5) gm/dL Hct (39.0-53.0) % RDW (11.5-15.5) % Plt Count (150-450) k/uL Neutrophils # (Manual) (1.3-7.7) k/uL Lymphocytes # (Manual) (1.0-4.8) k/uL INR (<1.2) APTT (22.0-30.0) sec ABG pH (7.35-7.45) ABG pO2 (83-108) mmHg ABG HCO3 (21-25) mmol/L ABG Total CO2 (19-24) mmol/L ABG O2 Saturation (94-97) % Sodium (137-145) mmol/L Chloride (98-107) mmol/L BUN (9-20) mg/dL Creatinine (0.66-1.25) mg/dL Glucose (74-99) mg/dL POC Glucose (mg/dL) 131 H 145 H (75-99) mg/dL Calcium (8.4-10.2) mg/dL Iron 16 L (65-175) ug/dL TIBC 208 L (228-460) ug/dL Iron Saturation 7.69 L (15.00-50.00) Ferritin 679.6 H (22.0-322.0) ng/mL Total Bilirubin (0.2-1.3) mg/dL AST (17-59) U/L ALT (21-72) U/L Alkaline Phosphatase (38-126) U/L Total Protein (6.3-8.2) g/dL Albumin (3.5-5.0) g/dL Crossmatch 11/28/17 11/29/17 11/29/17 Range/Units 21:27 00:18 02:10 WBC (3.8-10.6) k/uL RBC (4.30-5.90) m/uL Hgb (13.0-17.5) gm/dL Hct (39.0-53.0) % RDW (11.5-15.5) % Plt Count (150-450) k/uL Neutrophils # (Manual) (1.3-7.7) k/uL Lymphocytes # (Manual) (1.0-4.8) k/uL INR (<1.2) APTT (22.0-30.0) sec ABG pH (7.35-7.45) ABG pO2 (83-108) mmHg ABG HCO3 (21-25) mmol/L ABG Total CO2 (19-24) mmol/L ABG O2 Saturation (94-97) % Sodium (137-145) mmol/L Chloride (98-107) mmol/L BUN (9-20) mg/dL Creatinine (0.66-1.25) mg/dL Glucose (74-99) mg/dL POC Glucose (mg/dL) 141 H 120 H 120 H (75-99) mg/dL Calcium (8.4-10.2) mg/dL Iron (65-175) ug/dL TIBC (228-460) ug/dL Iron Saturation (15.00-50.00) Ferritin (22.0-322.0) ng/mL Total Bilirubin (0.2-1.3) mg/dL AST (17-59) U/L ALT (21-72) U/L Alkaline Phosphatase (38-126) U/L Total Protein (6.3-8.2) g/dL Albumin (3.5-5.0) g/dL Crossmatch 11/29/17 11/29/17 11/29/17 Range/Units 05:00 05:00 05:00 WBC 17.4 H (3.8-10.6) k/uL RBC 2.42 L (4.30-5.90) m/uL Hgb 6.9 L* (13.0-17.5) gm/dL Hct 22.0 L (39.0-53.0) % RDW 19.7 H (11.5-15.5) % Plt Count 106 L (150-450) k/uL Neutrophils # (Manual) 16.36 H (1.3-7.7) k/uL Lymphocytes # (Manual) 0.52 L (1.0-4.8) k/uL INR 1.2 H (<1.2) APTT 30.7 H (22.0-30.0) sec ABG pH (7.35-7.45) ABG pO2 (83-108) mmHg ABG HCO3 (21-25) mmol/L ABG Total CO2 (19-24) mmol/L ABG O2 Saturation (94-97) % Sodium 147 H (137-145) mmol/L Chloride 113 H (98-107) mmol/L BUN 131 H* (9-20) mg/dL Creatinine 1.60 H (0.66-1.25) mg/dL Glucose 127 H (74-99) mg/dL POC Glucose (mg/dL) (75-99) mg/dL Calcium 8.2 L (8.4-10.2) mg/dL Iron (65-175) ug/dL TIBC (228-460) ug/dL Iron Saturation (15.00-50.00) Ferritin (22.0-322.0) ng/mL Total Bilirubin 3.7 H (0.2-1.3) mg/dL AST 123 H (17-59) U/L ALT 212 H (21-72) U/L Alkaline Phosphatase 204 H (38-126) U/L Total Protein 5.1 L (6.3-8.2) g/dL Albumin 2.3 L (3.5-5.0) g/dL Crossmatch 11/29/17 11/29/17 11/29/17 Range/Units 05:19 06:08 08:09 WBC (3.8-10.6) k/uL RBC (4.30-5.90) m/uL Hgb (13.0-17.5) gm/dL Hct (39.0-53.0) % RDW (11.5-15.5) % Plt Count (150-450) k/uL Neutrophils # (Manual) (1.3-7.7) k/uL Lymphocytes # (Manual) (1.0-4.8) k/uL INR (<1.2) APTT (22.0-30.0) sec ABG pH 7.46 H (7.35-7.45) ABG pO2 149 H (83-108) mmHg ABG HCO3 26 H (21-25) mmol/L ABG Total CO2 27 H (19-24) mmol/L ABG O2 Saturation 100.0 H (94-97) % Sodium (137-145) mmol/L Chloride (98-107) mmol/L BUN (9-20) mg/dL Creatinine (0.66-1.25) mg/dL Glucose (74-99) mg/dL POC Glucose (mg/dL) 140 H 136 H (75-99) mg/dL Calcium (8.4-10.2) mg/dL Iron (65-175) ug/dL TIBC (228-460) ug/dL Iron Saturation (15.00-50.00) Ferritin (22.0-322.0) ng/mL Total Bilirubin (0.2-1.3) mg/dL AST (17-59) U/L ALT (21-72) U/L Alkaline Phosphatase (38-126) U/L Total Protein (6.3-8.2) g/dL Albumin (3.5-5.0) g/dL Crossmatch 11/29/17 11/29/17 11/29/17 Range/Units 08:15 08:57 10:03 WBC (3.8-10.6) k/uL RBC (4.30-5.90) m/uL Hgb (13.0-17.5) gm/dL Hct (39.0-53.0) % RDW (11.5-15.5) % Plt Count (150-450) k/uL Neutrophils # (Manual) (1.3-7.7) k/uL Lymphocytes # (Manual) (1.0-4.8) k/uL INR (<1.2) APTT (22.0-30.0) sec ABG pH (7.35-7.45) ABG pO2 119 H (83-108) mmHg ABG HCO3 (21-25) mmol/L ABG Total CO2 (19-24) mmol/L ABG O2 Saturation 99.0 H (94-97) % Sodium (137-145) mmol/L Chloride (98-107) mmol/L BUN (9-20) mg/dL Creatinine (0.66-1.25) mg/dL Glucose (74-99) mg/dL POC Glucose (mg/dL) 124 H (75-99) mg/dL Calcium (8.4-10.2) mg/dL Iron (65-175) ug/dL TIBC (228-460) ug/dL Iron Saturation (15.00-50.00) Ferritin (22.0-322.0) ng/mL Total Bilirubin (0.2-1.3) mg/dL AST (17-59) U/L ALT (21-72) U/L Alkaline Phosphatase (38-126) U/L Total Protein (6.3-8.2) g/dL Albumin (3.5-5.0) g/dL Crossmatch See Detail 11/29/17 11/29/17 Range/Units 12:00 13:57 WBC (3.8-10.6) k/uL RBC (4.30-5.90) m/uL Hgb (13.0-17.5) gm/dL Hct (39.0-53.0) % RDW (11.5-15.5) % Plt Count (150-450) k/uL Neutrophils # (Manual) (1.3-7.7) k/uL Lymphocytes # (Manual) (1.0-4.8) k/uL INR (<1.2) APTT (22.0-30.0) sec ABG pH (7.35-7.45) ABG pO2 (83-108) mmHg ABG HCO3 (21-25) mmol/L ABG Total CO2 (19-24) mmol/L ABG O2 Saturation (94-97) % Sodium (137-145) mmol/L Chloride (98-107) mmol/L BUN (9-20) mg/dL Creatinine (0.66-1.25) mg/dL Glucose (74-99) mg/dL POC Glucose (mg/dL) 135 H 140 H (75-99) mg/dL Calcium (8.4-10.2) mg/dL Iron (65-175) ug/dL TIBC (228-460) ug/dL Iron Saturation (15.00-50.00) Ferritin (22.0-322.0) ng/mL Total Bilirubin (0.2-1.3) mg/dL AST (17-59) U/L ALT (21-72) U/L Alkaline Phosphatase (38-126) U/L Total Protein (6.3-8.2) g/dL Albumin (3.5-5.0) g/dL Crossmatch Microbiology - Last 24 Hours (Table) 11/24/17 10:25 Blood Culture - Preliminary Blood No Growth after 120 hours 11/24/17 10:51 Blood Culture - Preliminary Blood No Growth after 120 hours Assessment and Plan Plan: Assessment: 1. Nonoliguric acute kidney injury secondary to ATN secondary to hemodynamic instability/post CABG. Renal function improving with creatinine down to 1.6 today. Baseline creatinine is 1. 2. Status post CABG and mitral valve repair. 3. Systolic CHF with ejection fraction of 30-35%. 4. Anemia status post blood transfusion this admission. Hgb 6.9 today. Severe iron deficiency noted. 5. Hypotension maintained on 2 mics of Levophed. Cortisol level 29. Plan: Maintain tube feeds. Remains off IV fluids. Avoid nephrotoxins. Continue to monitor renal function and urine output. Lasix 40 mg IV once after blood transfusion complete. Ferrlecit 125 mg IV today - this will be his first dose.
--- NOTE | 2017-11-29 14:45 | PN ---
PROGRESS NOTE DATE OF SERVICE: 11/29/2017. HISTORY: This patient is status post coronary artery bypass surgery and mitral valve repair. Patient is making slow progress. He is responding to the verbal commands. Respiratory rate is 24 to 26. Blood pressure now is 140/54 mmHg. Heart S1 and S2 normal. Lungs reveal bilateral scattered wheezes. Chest x-ray does not show any significant failure. Patient's hemoglobin is 6.9. The patient is going to get 1 unit of packed cells as well as IV Lasix. Creatinine is 1.6. PLAN: The patient is just off the Levophed drip this morning, if the patient's blood pressure remains stable over next 24 hours, I would rather recommend to start the patient on hydralazine than the Norvasc as afterload reducing agent. MMODL / IJN: [id number] /
[2017-11-29 16:03] LABS: Glucose,Whole Blood 119 mg/dL (75-99)
[2017-11-29] MEDS: hydrALAZINE HCL 25 MG TAB PO SCH ×2 (16:51→23:59)
[2017-11-29 18:09] LABS: Glucose,Whole Blood 165 mg/dL (75-99)
[2017-11-29 20:14] LABS: Glucose,Whole Blood 184 mg/dL (75-99)
[2017-11-29 20:25] LABS: Anisocytosis Slight; HCT 23.9 % (39.0-53.0); HGB 7.8 gm/dL (13.0-17.5); Hypochromasia Slight; MCH 29.7 pg (25.0-35.0); MCHC 32.8 g/dL (31.0-37.0); MCV 90.6 fL (80.0-100.0); Mean Platelet Volume 10.1; Platelet Count 130 k/uL (150-450); Poikilocytosis Slight; RBC 2.63 m/uL (4.30-5.90); RDW 18.6 % (11.5-15.5); WBC 14.7 k/uL (3.8-10.6)
[2017-11-29] MEDS: ERYTHROMYCIN 5 MG/GM OPHTH OINT 3.5 GM TUBE LEFT EYE SCH (20:40)
[2017-11-29] MEDS: ATORVASTATIN 40 MG TAB PO SCH (20:40)
[2017-11-29] MEDS: prednisoLONE ACETATE 1% OPHTH DROPS 5 ML BTL LEFT EYE SCH (20:41)
[2017-11-29] MEDS: MELATONIN 5 MG TABLET PO SCH (20:41)
[2017-11-29 22:32] LABS: Glucose,Whole Blood 166 mg/dL (75-99)
[2017-11-30 00:14] LABS: Glucose,Whole Blood 161 mg/dL (75-99)
[2017-11-30] MEDS: PIPERACILLIN-TAZOBACTAM 3.375 GM in DEXTROSE/WATER 1 50ML.BAG IVPB SCH ×3 (00:30→17:10)
[2017-11-30] MEDS: HEPARIN SODIUM,PORCINE 5,000 UNIT/ML 1 ML VIAL SQ SCH ×3 (00:31→17:11)
[2017-11-30] MEDS: DEXAMETHASONE SOD PHOSPHATE 4 MG/ML 1 ML VIAL IV SCH ×2 (00:31→06:29)
[2017-11-30] MEDS: MILRINONE-D5W PMX 20 MG in DEXTROSE/WATER 1 100ML.BAG IV SCH ×2 (01:49→21:56)
[2017-11-30 02:15] LABS: Glucose,Whole Blood 161 mg/dL (75-99)
[2017-11-30 03:52] LABS: Glucose,Whole Blood 164 mg/dL (75-99)
[2017-11-30 04:23] LABS: Anisocytosis Slight; HCT 24.2 % (39.0-53.0); Hypochromasia Slight; MCH 30.1 pg (25.0-35.0); MCHC 32.9 g/dL (31.0-37.0); MCV 91.3 fL (80.0-100.0); Mean Platelet Volume 9.6; Platelet Count 136 k/uL (150-450); Poikilocytosis Slight; RBC 2.65 m/uL (4.30-5.90); WBC 12.8 k/uL (3.8-10.6)
[2017-11-30 04:30] LABS: Ionized Calcium 4.7 mg/dL (4.5-5.3)
[2017-11-30 04:42] LABS: Albumin 2.2 g/dL (3.5-5.0); Calcium 7.9 mg/dL (8.4-10.2); Magnesium 2.3 mg/dL (1.6-2.3); Phosphorus 3.9 mg/dL (2.5-4.5); Potassium 3.8 mmol/L (3.5-5.1); Total Bilirubin 3.2 mg/dL (0.2-1.3); Total Protein 5.3 g/dL (6.3-8.2)
[2017-11-30 04:54] LABS: Lymphocytes # (M) 0.13 k/uL (1.0-4.8); Monocytes # (M) 0.26 k/uL (0-1.0); Neutrophils # (M) 12.42 k/uL (1.3-7.7); Neutrophils % (M) 97 %; Nucleated Red Blood Cells 0 /100 WBC (0-0); Total Cells Counted 100
[2017-11-30 05:58] LABS: ABG Base Excess 2.1 mmol/L; ABG HCO3 25 mmol/L (21-25); ABG Oxygen Saturation 98.3 % (94-97); ABG PCO2 34 mmHg (35-45); ABG PH 7.49 (7.35-7.45); ABG PO2 107 mmHg (83-108)
[2017-11-30] MEDS ORDERED: POTASSIUM CHLORIDE ER 20 MEQ TAB.ER PO SCH (06:25)
[2017-11-30 06:28] LABS: Glucose,Whole Blood 162 mg/dL (75-99)
[2017-11-30] MEDS: FERROUS SULFATE 325 MG TAB PO SCH ×2 (06:46→17:13)
[2017-11-30] MEDS: ASCORBIC ACID 500 MG TAB PO SCH ×2 (06:46→17:13)
[2017-11-30] MEDS: hydrALAZINE HCL 25 MG TAB PO SCH ×2 (07:09→20:54)
--- NOTE | 2017-11-30 07:42 | XR ---
EXAMINATION TYPE: XR chest 1V portable DATE OF EXAM: 11/30/2017 CLINICAL HISTORY: Difficulty breathing progress study. TECHNIQUE: Single AP portable semiupright view of the chest is obtained. COMPARISON: Chest x-ray from one day earlier and older studies. FINDINGS: An endotracheal tube and orogastric tube are stable in appearance. A left-sided PICC line and left-sided internal jugular central venous catheter are stable in appearance. There is persistent right-sided chest tube. There are sternal wires and mediastinal clips as well as cardiac valvular ri ng and closure device all redemonstrated. There is persistent cardiomegaly with small bilateral pleural effusions and associated left basilar a telectasis and/or infiltrate. No sizable pneumothorax is evident bilaterally. IMPRESSION: Overall stable findings, cardiomegaly with small bilateral pleural effusions and associ ated left basilar atelectasis and/or infiltrate all redemonstrated.
[2017-11-30] MEDS: IPRATROPIUM-ALBUTEROL 3 ML NEB INHALATION SCH ×4 (07:44→19:11)
[2017-11-30] MEDS: METOPROLOL TARTRATE 12.5 MG TAB PO SCH (08:08)
[2017-11-30] MEDS: ASPIRIN 81 MG PO SCH (08:09)
[2017-11-30] MEDS: AMIODARONE 200 MG TAB PO SCH (08:09)
[2017-11-30] MEDS: SERTRALINE 25 MG TAB PO SCH (08:10)
[2017-11-30] MEDS: CLOPIDOGREL 75 MG TAB PO SCH (08:10)
[2017-11-30 08:20] LABS: Glucose,Whole Blood 162 mg/dL (75-99)
--- NOTE | 2017-11-30 08:53 | P.PN ---
Subjective Progress Note Date: 11/30/17 Principal diagnosis: Respiratory failure status post bypass grafting postop day #11 status post mitral valve repair, postop day #11 Progress note dated 11/29/2017 72-year-old male who is postop day #11, status post bypass grafting and mitral valve repair. He also has a history of shock, cardiomyopathy, diabetes mellitus , mitral regurgitation, history of remote nicotine dependence postoperative anemia diabetic retinopathy acute hepatocellular injury acute kidney injury ischemic colitis thrombocytopenia, chronic atrial fibrillation and hypoxemic respiratory failure. The patient currently is on the ventilator and the volume control plus mode. Vent settings include the assist control mode rate of 14, tidal volume 500 FiO2 35% PEEP of 5. PO2 was 149 pCO2 was 37 and pH of 7.46. The patient's currently not on any sedation. I switch him over to PSV of 13 CPAP of 5. Currently he is on IV Primacor 0.2 mics per kilogram per minute, insulin at 2.5 units an hour saline IV KVO and vital high protein at 42 with a goal of 42 mL an hour. The patient was admitted on the had a surgery on November 17 was extubated initially on the and reintubated on November 24. We did drop his FiO2 from 35-30% given a PaO2 of 149. Chest x-ray shows possible changes as well as a right-sided pleural effusion. Relatively small. Progress note dated 11/30/2017 72-year-old male postop day #12, status post bypass grafting and mitral valve repair. The patient also has a history of shock, cardiomyopathy, diabetes mellitus, mitral regurgitation, remote nicotine dependence, postoperative anemia , diabetic retinopathy, hepatocellular injury, acute kidney injury, ischemic colitis, thrombocytopenia, chronic atrial fibrillation and hypoxemic respiratory failure. The patient currently is on the ventilator. The mode is volume assist control with a rate of 14, tidal volume 500, FiO2 30% and PEEP of 5. On those settings, the blood gases show a PaO2 of 107 pCO2 of 34 and a pH of 7.49. The patient is receiving a saline IV at 10 mL an hour Primacor 0.2 g insulin at 3.5 units an hour and vital 1.2 at 62 with a goal of 62 mL an hour. The patient spent about 7 hours on PSV 13 and CPAP of 5 yesterday. We cannot extubate him because the patient had did not have a cuff leak. We did add Decadron to the regimen at 6 mg every 6 hours 4 doses. The chest x-ray stable. Her labs are stable. White count is 12.8 hemoglobin 8 hematocrit 24.2 platelet count 136,000. Sodium 146 potassium 3.8 chloride is 113 CO2 26 anion gap normal BUN and creatinine are 131 and 1.6. His mental status is still not great. He has open his eyes. His stare is blank. Doesn't really follow commands well. This may be the limiting factor in terms of him being extubated. Objective - Vital Signs Vital signs: Vital Signs Temp 97.8 F 11/30/17 04:00 Pulse 115 H 11/30/17 08:00 Resp 24 11/30/17 07:00 BP 121/59 11/29/17 11:00 Pulse Ox 98 11/30/17 07:00 Intake & Output 11/29/17 11/30/17 11/30/17 18:59 06:59 18:59 Intake Total 7269.261 1082.893 34.123 Output Total 1715 1385 Balance 222.460 185.893 34.123 Weight 85 kg 86.1 kg Intake: IV 302.0 242 KVO 130 120 Piperacillin-Tazobactam 3 100.0 50 .375 gm In Dextrose/Water 1 50ml.bag @ 12.5 mls/hr IVPB Q8HR [facility] Rx#: [id number] Pressure Bags 72 72 Intake, IV Titration 121.460 116.893 34.123 Amount Insulin Regular 100 unit 21.460 16.893 34.123 In Sodium Chloride 0.9% 100 ml @ Per Protocol IV .Q0M [facility] Rx#:[id number] Milrinone-D5w Pmx 20 mg 100 In Dextrose/Water 1 100ml .bag @ 0.2 MCG/KG/MIN 4. 66 mls/hr IV .[id number] [facility] Rx#:[id number] Sodium Ferric Gluconat- 100 Sucrose 125 mg In Sodium Chloride 0.9% 100 ml @ 100 mls/hr IVPB ONCE ONE Rx#:[id number] Tube Feeding 544 912 Blood Product 495 Rc As-1 Unit 310 [id number] Other 475 300 Rc As-1 Unit 50 [id number] Output: Chest Tube Drainage 160 155 right pleural 160 155 Urine 1555 1230 Other: Voiding Method Indwelling Catheter Indwelling Catheter # Bowel Movements 1 ABP, PAP, CO, CI - Last Documented Arterial Blood Pressure 135/57 Pulmonary Artery Pressure 40/15 Cardiac Output 5.0 Cardiac Index 2.7 - Exam No acute distress, intubated, with an oral endotracheal tube in place. NG tube also noted. His mental status is unchanged. HEENT examination is grossly unremarkable. Mucous membranes are moist. Neck supple. Full range of motion. No adenopathy thyromegaly or neck vein distention. Cardiovascular examination reveals regular rhythm rate. S1-S2 normal. No S3 or S4. No discernible murmur noted. Heart sounds are distant. Lungs reveal scattered diffuse rhonchi. Breath sounds equal. No crackles. No wheezes. Abdomen soft, bowel sounds are heard. No masses or tenderness. Extremities are intact. No cyanosis clubbing or edema. Skin is without rash or lesion. Neurologic examination is difficult to assess. - Labs CBC & Chem 7: 11/30/17 03:51 11/30/17 03:51 Labs: Abnormal Lab Results - Last 24 Hours (Table) 11/28/17 11/29/17 11/29/17 Range/Units 04:20 08:15 08:57 WBC (3.8-10.6) k/uL RBC (4.30-5.90) m/uL Hgb (13.0-17.5) gm/dL Hct (39.0-53.0) % RDW (11.5-15.5) % Plt Count (150-450) k/uL Neutrophils # (Manual) (1.3-7.7) k/uL Lymphocytes # (Manual) (1.0-4.8) k/uL ABG pH (7.35-7.45) ABG pCO2 (35-45) mmHg ABG pO2 119 H (83-108) mmHg ABG O2 Saturation 99.0 H (94-97) % Sodium (137-145) mmol/L Chloride (98-107) mmol/L BUN (9-20) mg/dL Creatinine (0.66-1.25) mg/dL Glucose (74-99) mg/dL POC Glucose (mg/dL) (75-99) mg/dL Calcium (8.4-10.2) mg/dL Iron 16 L (65-175) ug/dL TIBC 208 L (228-460) ug/dL Iron Saturation 7.69 L (15.00-50.00) Ferritin 679.6 H (22.0-322.0) ng/mL Total Bilirubin (0.2-1.3) mg/dL AST (17-59) U/L ALT (21-72) U/L Alkaline Phosphatase (38-126) U/L Total Protein (6.3-8.2) g/dL Albumin (3.5-5.0) g/dL Crossmatch See Detail 11/29/17 11/29/17 11/29/17 Range/Units 10:03 12:00 13:57 WBC (3.8-10.6) k/uL RBC (4.30-5.90) m/uL Hgb (13.0-17.5) gm/dL Hct (39.0-53.0) % RDW (11.5-15.5) % Plt Count (150-450) k/uL Neutrophils # (Manual) (1.3-7.7) k/uL Lymphocytes # (Manual) (1.0-4.8) k/uL ABG pH (7.35-7.45) ABG pCO2 (35-45) mmHg ABG pO2 (83-108) mmHg ABG O2 Saturation (94-97) % Sodium (137-145) mmol/L Chloride (98-107) mmol/L BUN (9-20) mg/dL Creatinine (0.66-1.25) mg/dL Glucose (74-99) mg/dL POC Glucose (mg/dL) 124 H 135 H 140 H (75-99) mg/dL Calcium (8.4-10.2) mg/dL Iron (65-175) ug/dL TIBC (228-460) ug/dL Iron Saturation (15.00-50.00) Ferritin (22.0-322.0) ng/mL Total Bilirubin (0.2-1.3) mg/dL AST (17-59) U/L ALT (21-72) U/L Alkaline Phosphatase (38-126) U/L Total Protein (6.3-8.2) g/dL Albumin (3.5-5.0) g/dL Crossmatch 11/29/17 11/29/17 11/29/17 Range/Units 16:02 18:06 20:11 WBC (3.8-10.6) k/uL RBC (4.30-5.90) m/uL Hgb (13.0-17.5) gm/dL Hct (39.0-53.0) % RDW (11.5-15.5) % Plt Count (150-450) k/uL Neutrophils # (Manual) (1.3-7.7) k/uL Lymphocytes # (Manual) (1.0-4.8) k/uL ABG pH (7.35-7.45) ABG pCO2 (35-45) mmHg ABG pO2 (83-108) mmHg ABG O2 Saturation (94-97) % Sodium (137-145) mmol/L Chloride (98-107) mmol/L BUN (9-20) mg/dL Creatinine (0.66-1.25) mg/dL Glucose (74-99) mg/dL POC Glucose (mg/dL) 119 H 165 H 184 H (75-99) mg/dL Calcium (8.4-10.2) mg/dL Iron (65-175) ug/dL TIBC (228-460) ug/dL Iron Saturation (15.00-50.00) Ferritin (22.0-322.0) ng/mL Total Bilirubin (0.2-1.3) mg/dL AST (17-59) U/L ALT (21-72) U/L Alkaline Phosphatase (38-126) U/L Total Protein (6.3-8.2) g/dL Albumin (3.5-5.0) g/dL Crossmatch 11/29/17 11/29/17 11/30/17 Range/Units 20:14 22:27 00:12 WBC 14.7 H (3.8-10.6) k/uL RBC 2.63 L (4.30-5.90) m/uL Hgb 7.8 L (13.0-17.5) gm/dL Hct 23.9 L (39.0-53.0) % RDW 18.6 H (11.5-15.5) % Plt Count 130 L (150-450) k/uL Neutrophils # (Manual) (1.3-7.7) k/uL Lymphocytes # (Manual) (1.0-4.8) k/uL ABG pH (7.35-7.45) ABG pCO2 (35-45) mmHg ABG pO2 (83-108) mmHg ABG O2 Saturation (94-97) % Sodium (137-145) mmol/L Chloride (98-107) mmol/L BUN (9-20) mg/dL Creatinine (0.66-1.25) mg/dL Glucose (74-99) mg/dL POC Glucose (mg/dL) 166 H 161 H (75-99) mg/dL Calcium (8.4-10.2) mg/dL Iron (65-175) ug/dL TIBC (228-460) ug/dL Iron Saturation (15.00-50.00) Ferritin (22.0-322.0) ng/mL Total Bilirubin (0.2-1.3) mg/dL AST (17-59) U/L ALT (21-72) U/L Alkaline Phosphatase (38-126) U/L Total Protein (6.3-8.2) g/dL Albumin (3.5-5.0) g/dL Crossmatch 11/30/17 11/30/17 11/30/17 Range/Units 02:11 03:49 03:51 WBC 12.8 H (3.8-10.6) k/uL RBC 2.65 L (4.30-5.90) m/uL Hgb 8.0 L (13.0-17.5) gm/dL Hct 24.2 L (39.0-53.0) % RDW 19.0 H (11.5-15.5) % Plt Count 136 L (150-450) k/uL Neutrophils # (Manual) 12.42 H (1.3-7.7) k/uL Lymphocytes # (Manual) 0.13 L (1.0-4.8) k/uL ABG pH (7.35-7.45) ABG pCO2 (35-45) mmHg ABG pO2 (83-108) mmHg ABG O2 Saturation (94-97) % Sodium (137-145) mmol/L Chloride (98-107) mmol/L BUN (9-20) mg/dL Creatinine (0.66-1.25) mg/dL Glucose (74-99) mg/dL POC Glucose (mg/dL) 161 H 164 H (75-99) mg/dL Calcium (8.4-10.2) mg/dL Iron (65-175) ug/dL TIBC (228-460) ug/dL Iron Saturation (15.00-50.00) Ferritin (22.0-322.0) ng/mL Total Bilirubin (0.2-1.3) mg/dL AST (17-59) U/L ALT (21-72) U/L Alkaline Phosphatase (38-126) U/L Total Protein (6.3-8.2) g/dL Albumin (3.5-5.0) g/dL Crossmatch 11/30/17 11/30/17 11/30/17 Range/Units 03:51 05:47 06:27 WBC (3.8-10.6) k/uL RBC (4.30-5.90) m/uL Hgb (13.0-17.5) gm/dL Hct (39.0-53.0) % RDW (11.5-15.5) % Plt Count (150-450) k/uL Neutrophils # (Manual) (1.3-7.7) k/uL Lymphocytes # (Manual) (1.0-4.8) k/uL ABG pH 7.49 H (7.35-7.45) ABG pCO2 34 L (35-45) mmHg ABG pO2 (83-108) mmHg ABG O2 Saturation 98.3 H (94-97) % Sodium 146 H (137-145) mmol/L Chloride 113 H (98-107) mmol/L BUN 131 H* (9-20) mg/dL Creatinine 1.60 H (0.66-1.25) mg/dL Glucose 156 H (74-99) mg/dL POC Glucose (mg/dL) 162 H (75-99) mg/dL Calcium 7.9 L (8.4-10.2) mg/dL Iron (65-175) ug/dL TIBC (228-460) ug/dL Iron Saturation (15.00-50.00) Ferritin (22.0-322.0) ng/mL Total Bilirubin 3.2 H (0.2-1.3) mg/dL AST 117 H (17-59) U/L ALT 183 H (21-72) U/L Alkaline Phosphatase 250 H (38-126) U/L Total Protein 5.3 L (6.3-8.2) g/dL Albumin 2.2 L (3.5-5.0) g/dL Crossmatch 11/30/17 Range/Units 08:19 WBC (3.8-10.6) k/uL RBC (4.30-5.90) m/uL Hgb (13.0-17.5) gm/dL Hct (39.0-53.0) % RDW (11.5-15.5) % Plt Count (150-450) k/uL Neutrophils # (Manual) (1.3-7.7) k/uL Lymphocytes # (Manual) (1.0-4.8) k/uL ABG pH (7.35-7.45) ABG pCO2 (35-45) mmHg ABG pO2 (83-108) mmHg ABG O2 Saturation (94-97) % Sodium (137-145) mmol/L Chloride (98-107) mmol/L BUN (9-20) mg/dL Creatinine (0.66-1.25) mg/dL Glucose (74-99) mg/dL POC Glucose (mg/dL) 162 H (75-99) mg/dL Calcium (8.4-10.2) mg/dL Iron (65-175) ug/dL TIBC (228-460) ug/dL Iron Saturation (15.00-50.00) Ferritin (22.0-322.0) ng/mL Total Bilirubin (0.2-1.3) mg/dL AST (17-59) U/L ALT (21-72) U/L Alkaline Phosphatase (38-126) U/L Total Protein (6.3-8.2) g/dL Albumin (3.5-5.0) g/dL Crossmatch Microbiology - Last 24 Hours (Table) 11/24/17 10:25 Blood Culture - Preliminary Blood No Growth after 120 hours 11/24/17 10:51 Blood Culture - Preliminary Blood No Growth after 120 hours Assessment and Plan Assessment: Assessment Status post bypass grafting, postop day #12 Postoperative ventilator management, with failure to wean. Status post initial extubation on November 18 and reintubation on November 24. Postop day #12, status post mitral valve repair for mitral regurgitation Ischemic cardiomyopathy Type 2 diabetes mellitus History of kidney nicotine dependence Postoperative anemia Diabetic retinopathy Shock liver Acute kidney injury Ischemic colitis Thrombocytopenia Chronic atrial fibrillation Acute hypoxemic respiratory failure Plan: Plan dated 11/29/2017 The patient's labs and x-rays are all reviewed. Medications are reviewed. The patient will be switched over to pressure support of 13 and CPAP of 5. We'll drop the FiO2 down to 30%. I'll repeat a blood gas in one hour. The patient's chest x-ray shows a right-sided pleural effusion. The patient was initially extubated on November 18 and reintubated on November 24. The patient remains on IV Primacor insulin drip at KVO fluids and is being nourished vital high protein at goal. Blood gases are reasonable. PaO2 of 149 PaCO2 37 and a pH of 7.46. The patient's currently not on any sedation. We'll attempt to wean him if possible. White count is 17.4 hemoglobin 6.9 hematocrit 22.0 platelet count 106 ,000. Sodium is 147 potassium 3.8 chloride is 113 and CO2 is 26 BUN and creatinine are 131 and 1.0. AST 123 ALT 212 alkaline phosphatase 204. Total bilirubin is 3.7. Sputum from November showed Klebsiella oxytoca. Arterial blood gases will be repeated in one hour. The patient needs additional water flushes given the increasing sodium and chloride levels. Prognosis is guarded. Critical care time 38 minutes Plan dated 11/30/2017 The patient's labs and x-rays are reviewed. Chest x-ray remains very similar to yesterday's chest x-ray. The patient will be placed back on pressure support and CPAP. Would consider weaning parameters blood gas and a cuff leak. Yesterday, the patient did not have a cuff leak. We added Decadron 6 mg every 6 hours for 4 doses. The patient's medications are reviewed. I'm hoping that we can get the patient towards extubation here in either today or tomorrow. Additional recommendations and suggestions are forthcoming. Prognosis is guarded. The patient remains on appropriate medications. The case was discussed with cardiothoracic surgery. Critical care time 33 minutes Time with Patient: Greater than 30
[2017-11-30 08:58] LABS: ABG Base Excess 1.4 mmol/L; ABG HCO3 25 mmol/L (21-25); ABG Oxygen Saturation 97.9 % (94-97); ABG PCO2 35 mmHg (35-45); ABG PH 7.46 (7.35-7.45); ABG PO2 102 mmHg (83-108)
--- NOTE | 2017-11-30 08:58 | P.PN ---
Subjective Progress Note Date: 11/30/17 Principal diagnosis: Triple-vessel coronary artery disease. Severe ischemic cardiomyopathy. Moderate mitral valve regurgitation. Mild tricuspid valve regurgitation. Diabetes mellitus with preoperative hemoglobin A1c 6.7%. Hyperlipidemia. Moderate to severe restrictive lung disease with preoperative FEV1 43% of predicted. Evidence of diffuse calcific coronary artery disease. 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 Previous tobacco dependence. POD #14 placement of preoperative intra-aortic balloon pump POD #13 quadruple coronary artery bypass grafting using the left internal mammary artery to the left anterior descending artery, reverse saphenous vein graft from the aorta to the diagonal artery, reverse saphenous vein graft from the aorta to the first obtuse marginal artery, reverse saphenous vein graft from the aorta to the posterior descending artery. Mitral valve repair using a complete ring annuloplasty with a 30 mm Kapoor IMR ring. Exclusion of the left atrial appendage using a 35 mm Atriclip. Intraoperative transesophageal echocardiogram and epi-aortic scanning. Intraoperative graft flow measurements using the [employer] system. Post operative normocytic, normochromic anemia, an expected outcome of surgery. Postoperative thrombocytopenia, an expected outcome of surgery. Postoperative atrial fibrillation, an expected outcome of surgery. Postoperative elevated transaminases, an unexpected outcome of surgery, likely secondary to low flow state post surgery. Postoperative acute kidney injury, an unexpected outcome of surgery, likely secondary to low flow state post surgery. Postoperative acute metabolic acidosis, lactic acidosis, reintubation, an unexpected outcome. Postoperative cardiogenic shock, an unexpected outcome. The patient remains intubated, off sedation greater than 24 hours. He is alert , nods his head yes appropriately, squeezes hands, and moves his legs. He was on CPAP yesterday for 7 hours but had no air leak so no extubation. He remains on Primacor at 0.2 mcg/kg/min, levo and vaso have been off for 2 days. CVP has been 10-14. His urine output was 45-150 ml/hr overnight. His BUN this morning is 131, creatinine is 1.6. Liver enzymes continue to improve. Hemaglobin this morning is 8.0 from 6.9 after he 1 unit packed red blood cells given yesterday. White blood cell count has decreased 12.8 from 17.4, currently on zosyn with sputum culture growing Klebsiella oxytoca, platelet count has increased. Arterial blood gases are stable. He is currently in atrial fibrillation with heart rate in the 1 teens to 120s. He is tolerating tube feedings with minimal residual. He is currently on CPAP trial. He remains critical but his clinical picture shows improvement. Objective - Vital Signs Vital signs: Vital Signs Temp 97.8 F 11/30/17 04:00 Pulse 115 H 11/30/17 08:00 Resp 24 11/30/17 07:00 BP 121/59 11/29/17 11:00 Pulse Ox 98 11/30/17 07:00 Intake & Output 11/29/17 11/30/17 11/30/17 18:59 06:59 18:59 Intake Total 4696.529 1504.893 Output Total 1715 1385 Balance 222.460 185.893 Weight 85 kg 86.1 kg Intake: IV 302.0 242 KVO 130 120 Piperacillin-Tazobactam 3 100.0 50 .375 gm In Dextrose/Water 1 50ml.bag @ 12.5 mls/hr IVPB Q8HR PENDING SALE TO [facility] Rx#: [id number] Pressure Bags 72 72 Intake, IV Titration 121.460 116.893 Amount Insulin Regular 100 unit 21.460 16.893 In Sodium Chloride 0.9% 100 ml @ Per Protocol IV .Q0M PENDING SALE TO [facility] Rx#:[id number] Milrinone-D5w Pmx 20 mg 100 In Dextrose/Water 1 100ml .bag @ 0.2 MCG/KG/MIN 4. 66 mls/hr IV .[id number] PENDING SALE TO [facility] Rx#:[id number] Sodium Ferric Gluconat- 100 Sucrose 125 mg In Sodium Chloride 0.9% 100 ml @ 100 mls/hr IVPB ONCE ONE Rx#:[id number] Tube Feeding 544 912 Blood Product 495 Rc As-1 Unit 310 [id number] Other 475 300 Rc As-1 Unit 50 [id number] Output: Chest Tube Drainage 160 155 right pleural 160 155 Urine 1555 1230 Other: Voiding Method Indwelling Catheter Indwelling Catheter # Bowel Movements 1 ABP, PAP, CO, CI - Last Documented Arterial Blood Pressure 135/57 Pulmonary Artery Pressure 40/15 Cardiac Output 5.0 Cardiac Index 2.7 - Constitutional General appearance: Present: cooperative, no acute distress - Respiratory Details: Lungs sounds diminished bilaterally. Respirations even, nonlabored on mechanical ventilation. Ventilator settings assist control mode, FiO2 30%, tidal volume 500, respiratory rate 14, PEEP 5, currently on CPAP mode. ABGs this morning 7.49/34/107/25/98%/2.1. 8.0 ET tube present, 25 at the lip. Right pleural chest tube to continuous wall suction, 45 mL serous drainage in the last 8 hours, 150 mL in 24 hours. No air leaks present. - Cardiovascular Details: S1, S2 present. Irregular rate and rhythm, atrial fibrillation on telemetry. Sternum stable. A/V epicardial pacemaker wires present, grounded. Palpable peripheral pulses bilaterally. Bilateral lower extremity, scrotal edema present. Right radial arterial line, left brachial PICC line, left internal jugular triple-lumen central line present. CVP 10-14. Levo, vasopressin have been off, Primacor continues at 0.02 mcg/kg/min. Heart hugger, antiembolism stockings, SCDs present. - Gastrointestinal Gastrointestinal Comment(s): Abdomen soft, nontender, nondistended. Active bowel sounds present 4 quadrants. OG tube present, vital tube feedings infusing at 62 mL/h with minimal residual per nursing. - Genitourinary Genitourinary Comment(s): Fong present draining clear yellow urine. Output 45-150 ml/hr overnight, 900 mL output after IV Lasix given yesterday. - Integumentary Integumentary Comment(s): Skin warm and dry, right great toe with blue spot likely from high-dose levo. Sternal incision well approximated and covered with dry intact dressing. Left lower extremity EVH site well approximated. Stage II pressure ulcer to coccyx, covered by Optisol foam dressing. - Neurologic Neurologic: Present: CNII-XII intact - Musculoskeletal Musculoskeletal: Present: generalized weakness - Psychiatric Psychiatric Comment(s): Alert and oriented and following commands. - Allied health notes Allied health notes reviewed: nursing - Labs CBC & Chem 7: 11/30/17 03:51 11/30/17 03:51 Labs: Abnormal Lab Results - Last 24 Hours (Table) 11/28/17 11/29/17 11/29/17 Range/Units 04:20 08:09 08:15 WBC (3.8-10.6) k/uL RBC (4.30-5.90) m/uL Hgb (13.0-17.5) gm/dL Hct (39.0-53.0) % RDW (11.5-15.5) % Plt Count (150-450) k/uL Neutrophils # (Manual) (1.3-7.7) k/uL Lymphocytes # (Manual) (1.0-4.8) k/uL ABG pH (7.35-7.45) ABG pCO2 (35-45) mmHg ABG pO2 (83-108) mmHg ABG O2 Saturation (94-97) % Sodium (137-145) mmol/L Chloride (98-107) mmol/L BUN (9-20) mg/dL Creatinine (0.66-1.25) mg/dL Glucose (74-99) mg/dL POC Glucose (mg/dL) 136 H (75-99) mg/dL Calcium (8.4-10.2) mg/dL Iron 16 L (65-175) ug/dL TIBC 208 L (228-460) ug/dL Iron Saturation 7.69 L (15.00-50.00) Ferritin 679.6 H (22.0-322.0) ng/mL Total Bilirubin (0.2-1.3) mg/dL AST (17-59) U/L ALT (21-72) U/L Alkaline Phosphatase (38-126) U/L Total Protein (6.3-8.2) g/dL Albumin (3.5-5.0) g/dL Crossmatch See Detail 11/29/17 11/29/17 11/29/17 Range/Units 08:57 10:03 12:00 WBC (3.8-10.6) k/uL RBC (4.30-5.90) m/uL Hgb (13.0-17.5) gm/dL Hct (39.0-53.0) % RDW (11.5-15.5) % Plt Count (150-450) k/uL Neutrophils # (Manual) (1.3-7.7) k/uL Lymphocytes # (Manual) (1.0-4.8) k/uL ABG pH (7.35-7.45) ABG pCO2 (35-45) mmHg ABG pO2 119 H (83-108) mmHg ABG O2 Saturation 99.0 H (94-97) % Sodium (137-145) mmol/L Chloride (98-107) mmol/L BUN (9-20) mg/dL Creatinine (0.66-1.25) mg/dL Glucose (74-99) mg/dL POC Glucose (mg/dL) 124 H 135 H (75-99) mg/dL Calcium (8.4-10.2) mg/dL Iron (65-175) ug/dL TIBC (228-460) ug/dL Iron Saturation (15.00-50.00) Ferritin (22.0-322.0) ng/mL Total Bilirubin (0.2-1.3) mg/dL AST (17-59) U/L ALT (21-72) U/L Alkaline Phosphatase (38-126) U/L Total Protein (6.3-8.2) g/dL Albumin (3.5-5.0) g/dL Crossmatch 11/29/17 11/29/17 11/29/17 Range/Units 13:57 16:02 18:06 WBC (3.8-10.6) k/uL RBC (4.30-5.90) m/uL Hgb (13.0-17.5) gm/dL Hct (39.0-53.0) % RDW (11.5-15.5) % Plt Count (150-450) k/uL Neutrophils # (Manual) (1.3-7.7) k/uL Lymphocytes # (Manual) (1.0-4.8) k/uL ABG pH (7.35-7.45) ABG pCO2 (35-45) mmHg ABG pO2 (83-108) mmHg ABG O2 Saturation (94-97) % Sodium (137-145) mmol/L Chloride (98-107) mmol/L BUN (9-20) mg/dL Creatinine (0.66-1.25) mg/dL Glucose (74-99) mg/dL POC Glucose (mg/dL) 140 H 119 H 165 H (75-99) mg/dL Calcium (8.4-10.2) mg/dL Iron (65-175) ug/dL TIBC (228-460) ug/dL Iron Saturation (15.00-50.00) Ferritin (22.0-322.0) ng/mL Total Bilirubin (0.2-1.3) mg/dL AST (17-59) U/L ALT (21-72) U/L Alkaline Phosphatase (38-126) U/L Total Protein (6.3-8.2) g/dL Albumin (3.5-5.0) g/dL Crossmatch 11/29/17 11/29/17 11/29/17 Range/Units 20:11 20:14 22:27 WBC 14.7 H (3.8-10.6) k/uL RBC 2.63 L (4.30-5.90) m/uL Hgb 7.8 L (13.0-17.5) gm/dL Hct 23.9 L (39.0-53.0) % RDW 18.6 H (11.5-15.5) % Plt Count 130 L (150-450) k/uL Neutrophils # (Manual) (1.3-7.7) k/uL Lymphocytes # (Manual) (1.0-4.8) k/uL ABG pH (7.35-7.45) ABG pCO2 (35-45) mmHg ABG pO2 (83-108) mmHg ABG O2 Saturation (94-97) % Sodium (137-145) mmol/L Chloride (98-107) mmol/L BUN (9-20) mg/dL Creatinine (0.66-1.25) mg/dL Glucose (74-99) mg/dL POC Glucose (mg/dL) 184 H 166 H (75-99) mg/dL Calcium (8.4-10.2) mg/dL Iron (65-175) ug/dL TIBC (228-460) ug/dL Iron Saturation (15.00-50.00) Ferritin (22.0-322.0) ng/mL Total Bilirubin (0.2-1.3) mg/dL AST (17-59) U/L ALT (21-72) U/L Alkaline Phosphatase (38-126) U/L Total Protein (6.3-8.2) g/dL Albumin (3.5-5.0) g/dL Crossmatch 11/30/17 11/30/17 11/30/17 Range/Units 00:12 02:11 03:49 WBC (3.8-10.6) k/uL RBC (4.30-5.90) m/uL Hgb (13.0-17.5) gm/dL Hct (39.0-53.0) % RDW (11.5-15.5) % Plt Count (150-450) k/uL Neutrophils # (Manual) (1.3-7.7) k/uL Lymphocytes # (Manual) (1.0-4.8) k/uL ABG pH (7.35-7.45) ABG pCO2 (35-45) mmHg ABG pO2 (83-108) mmHg ABG O2 Saturation (94-97) % Sodium (137-145) mmol/L Chloride (98-107) mmol/L BUN (9-20) mg/dL Creatinine (0.66-1.25) mg/dL Glucose (74-99) mg/dL POC Glucose (mg/dL) 161 H 161 H 164 H (75-99) mg/dL Calcium (8.4-10.2) mg/dL Iron (65-175) ug/dL TIBC (228-460) ug/dL Iron Saturation (15.00-50.00) Ferritin (22.0-322.0) ng/mL Total Bilirubin (0.2-1.3) mg/dL AST (17-59) U/L ALT (21-72) U/L Alkaline Phosphatase (38-126) U/L Total Protein (6.3-8.2) g/dL Albumin (3.5-5.0) g/dL Crossmatch 11/30/17 11/30/17 11/30/17 Range/Units 03:51 03:51 05:47 WBC 12.8 H (3.8-10.6) k/uL RBC 2.65 L (4.30-5.90) m/uL Hgb 8.0 L (13.0-17.5) gm/dL Hct 24.2 L (39.0-53.0) % RDW 19.0 H (11.5-15.5) % Plt Count 136 L (150-450) k/uL Neutrophils # (Manual) 12.42 H (1.3-7.7) k/uL Lymphocytes # (Manual) 0.13 L (1.0-4.8) k/uL ABG pH 7.49 H (7.35-7.45) ABG pCO2 34 L (35-45) mmHg ABG pO2 (83-108) mmHg ABG O2 Saturation 98.3 H (94-97) % Sodium 146 H (137-145) mmol/L Chloride 113 H (98-107) mmol/L BUN 131 H* (9-20) mg/dL Creatinine 1.60 H (0.66-1.25) mg/dL Glucose 156 H (74-99) mg/dL POC Glucose (mg/dL) (75-99) mg/dL Calcium 7.9 L (8.4-10.2) mg/dL Iron (65-175) ug/dL TIBC (228-460) ug/dL Iron Saturation (15.00-50.00) Ferritin (22.0-322.0) ng/mL Total Bilirubin 3.2 H (0.2-1.3) mg/dL AST 117 H (17-59) U/L ALT 183 H (21-72) U/L Alkaline Phosphatase 250 H (38-126) U/L Total Protein 5.3 L (6.3-8.2) g/dL Albumin 2.2 L (3.5-5.0) g/dL Crossmatch 11/30/17 Range/Units 06:27 WBC (3.8-10.6) k/uL RBC (4.30-5.90) m/uL Hgb (13.0-17.5) gm/dL Hct (39.0-53.0) % RDW (11.5-15.5) % Plt Count (150-450) k/uL Neutrophils # (Manual) (1.3-7.7) k/uL Lymphocytes # (Manual) (1.0-4.8) k/uL ABG pH (7.35-7.45) ABG pCO2 (35-45) mmHg ABG pO2 (83-108) mmHg ABG O2 Saturation (94-97) % Sodium (137-145) mmol/L Chloride (98-107) mmol/L BUN (9-20) mg/dL Creatinine (0.66-1.25) mg/dL Glucose (74-99) mg/dL POC Glucose (mg/dL) 162 H (75-99) mg/dL Calcium (8.4-10.2) mg/dL Iron (65-175) ug/dL TIBC (228-460) ug/dL Iron Saturation (15.00-50.00) Ferritin (22.0-322.0) ng/mL Total Bilirubin (0.2-1.3) mg/dL AST (17-59) U/L ALT (21-72) U/L Alkaline Phosphatase (38-126) U/L Total Protein (6.3-8.2) g/dL Albumin (3.5-5.0) g/dL Crossmatch Microbiology - Last 24 Hours (Table) 11/24/17 10:25 Blood Culture - Preliminary Blood No Growth after 120 hours 11/24/17 10:51 Blood Culture - Preliminary Blood No Growth after 120 hours - Imaging and Cardiology Chest x-ray: report reviewed, image reviewed Assessment and Plan (1) Congestive heart failure with cardiomyopathy Current Visit: Yes Status: Chronic Code(s): I50.9 - HEART FAILURE, UNSPECIFIED; I42.9 - CARDIOMYOPATHY, UNSPECIFIED SNOMED Code(s): 08996607 (2) Ischemic cardiomyopathy Current Visit: Yes Status: Chronic Code(s): I25.5 - ISCHEMIC CARDIOMYOPATHY SNOMED Code(s): 243932240 (3) Coronary artery disease Current Visit: Yes Status: Chronic Code(s): I25.10 - ATHSCL HEART DISEASE OF [place] CORONARY ARTERY W/O ANG PCTRS SNOMED Code(s): 01894599 (4) Diabetes mellitus Current Visit: Yes Status: Chronic Code(s): E11.9 - TYPE 2 DIABETES MELLITUS WITHOUT COMPLICATIONS SNOMED Code(s): 48671969 (5) Hyperlipidemia Current Visit: Yes Status: Chronic Code(s): E78.5 - HYPERLIPIDEMIA, UNSPECIFIED SNOMED Code(s): 61787252 (6) Mitral regurgitation Current Visit: Yes Status: Chronic Code(s): I34.0 - NONRHEUMATIC MITRAL ( VALVE) INSUFFICIENCY SNOMED Code(s): 44792120 (7) History of myocardial infarction Current Visit: No Status: Resolved Code(s): I25.2 - OLD MYOCARDIAL INFARCTION SNOMED Code(s): 410048567 (8) Tobacco dependence in remission Current Visit: No Status: Resolved Code(s): F17.201 - NICOTINE DEPENDENCE, UNSPECIFIED, IN REMISSION SNOMED Code(s): 065860729 Plan: 1. Continue low-dose aspirin, Plavix, subcu heparin. Monitor patient for bleeding. 2. Hydralazine 25 mg twice daily added last night. Midodrin stopped. 3. Continue beta michelle. Lopressor increased to 25 mg twice daily. Will increase beta michelle when able. 4. Continue Statin. 5. Continue amiodarone for A. fib prophylaxis. Decreased to 200 mg daily today. 6. Continue Primacor at 0.2 mcg/kg/min. 7. Continue tube feedings. Monitor for gastric residual. 8. No nephrotoxic, hepatotoxic agents. 9. Minimal IV fluids per nephrology. 10. Keep Fong catheter for strict accurate intake and output. Fong catheter changed 11/27/17. 11. Will keep right pleural chest tube for another 24 hours. 12. Ventilator management, bronchodilators per pulmonology. 13. No sedation today. Continue to assess neuro status. 14. Will monitor daily labs and x-rays. No further blood transfusion at this point. 15. Agree with Zosyn per pulmonology, sputum culture positive for Klebsiella oxytoca. Blood culture negative 120 hours, urine culture negative. 16. Pain control with current medication regimen. 17. GI/DVT prophylaxis. 18. C. diff negative, occult blood positive, will continue to monitor. Not safe to take off of aspirin, Plavix for any kind of endoscopy at this time. 19. Insulin drip/diabetic management per primary care service. 20. Continue full CODE STATUS. 21. Continued recommendations based on patient's progress. Time with Patient: Greater than 30
[2017-11-30] MEDS: CHLORHEXIDINE GLUCONATE 15 ML CUP MUCOUS MEM SCH (09:30)
[2017-11-30] MEDS: PANTOPRAZOLE 40 MG/10 ML VIAL IVP SCH (10:14)
[2017-11-30 10:47] LABS: Glucose,Whole Blood 151 mg/dL (75-99)
--- NOTE | 2017-11-30 11:10 | P.PN ---
Subjective Patient is seen in follow-up for acute kidney injury. Creatinine was greater than 3 on admission and is stable 1.6 today. Patient underwent CABG and mitral valve repair this admission. Ejection fraction is 30-35%. Hemoglobin 6.9 on s/p pRBC transfusion - hgb 8.0 today. He is off vasopressors. He is nonoliguric. Extubated 11/29. Vital signs are stable. General: The patient appeared well nourished and normally developed. HEENT: Head exam is unremarkable. Neck is without jugular venous distension. LUNGS: Breath sounds decreased. HEART: Rate and Rhythm are regular. First and second heart sounds normal. No murmurs, rubs or gallops. ABDOMEN: Abdominal exam reveals normal bowel sounds. Non-tender and non- distended. No evidence of peritonitis. EXTREMITITES: Trace edema. Objective - Vital Signs Vital signs: Vital Signs Temp 97.9 F 11/30/17 08:00 Pulse 122 H 11/30/17 10:30 Resp 30 H 11/30/17 10:30 BP 121/59 11/29/17 11:00 Pulse Ox 98 11/30/17 10:30 Intake & Output 11/29/17 11/30/17 11/30/17 18:59 06:59 18:59 Intake Total 1211.793 1250.893 124.772 Output Total 1715 1385 470 Balance 222.460 185.893 -345.228 Weight 85 kg 86.1 kg Intake: IV 302.0 242 82 KVO 130 120 20 Piperacillin-Tazobactam 3 100.0 50 50 .375 gm In Dextrose/Water 1 50ml.bag @ 12.5 mls/hr IVPB Q8HR [facility] Rx#: [id number] Pressure Bags 72 72 12 Intake, IV Titration 121.460 116.893 42.772 Amount Insulin Regular 100 unit 21.460 16.893 42.772 In Sodium Chloride 0.9% 100 ml @ Per Protocol IV .Q0M [facility] Rx#:[id number] Milrinone-D5w Pmx 20 mg 100 In Dextrose/Water 1 100ml .bag @ 0.2 MCG/KG/MIN 4. 66 mls/hr IV .[id number] [facility] Rx#:[id number] Sodium Ferric Gluconat- 100 Sucrose 125 mg In Sodium Chloride 0.9% 100 ml @ 100 mls/hr IVPB ONCE ONE Rx#:[id number] Tube Feeding 544 912 Blood Product 495 Rc As-1 Unit 310 [id number] Other 475 300 Rc As-1 Unit 50 [id number] Output: Chest Tube Drainage 160 155 70 right pleural 160 155 70 Urine 1555 1230 400 Other: Voiding Method Indwelling Catheter Indwelling Catheter Indwelling Catheter # Bowel Movements 1 ABP, PAP, CO, CI - Last Documented Arterial Blood Pressure 119/51 Pulmonary Artery Pressure 40/15 Cardiac Output 5.0 Cardiac Index 2.7 - Labs CBC & Chem 7: 11/30/17 03:51 11/30/17 03:51 Labs: Abnormal Lab Results - Last 24 Hours (Table) 11/28/17 11/29/17 11/29/17 Range/Units 04:20 08:15 12:00 WBC (3.8-10.6) k/uL RBC (4.30-5.90) m/uL Hgb (13.0-17.5) gm/dL Hct (39.0-53.0) % RDW (11.5-15.5) % Plt Count (150-450) k/uL Neutrophils # (Manual) (1.3-7.7) k/uL Lymphocytes # (Manual) (1.0-4.8) k/uL ABG pH (7.35-7.45) ABG pCO2 (35-45) mmHg ABG O2 Saturation (94-97) % Sodium (137-145) mmol/L Chloride (98-107) mmol/L BUN (9-20) mg/dL Creatinine (0.66-1.25) mg/dL Glucose (74-99) mg/dL POC Glucose (mg/dL) 135 H (75-99) mg/dL Calcium (8.4-10.2) mg/dL Iron 16 L (65-175) ug/dL TIBC 208 L (228-460) ug/dL Iron Saturation 7.69 L (15.00-50.00) Ferritin 679.6 H (22.0-322.0) ng/mL Total Bilirubin (0.2-1.3) mg/dL AST (17-59) U/L ALT (21-72) U/L Alkaline Phosphatase (38-126) U/L Total Protein (6.3-8.2) g/dL Albumin (3.5-5.0) g/dL Crossmatch See Detail 11/29/17 11/29/17 11/29/17 Range/Units 13:57 16:02 18:06 WBC (3.8-10.6) k/uL RBC (4.30-5.90) m/uL Hgb (13.0-17.5) gm/dL Hct (39.0-53.0) % RDW (11.5-15.5) % Plt Count (150-450) k/uL Neutrophils # (Manual) (1.3-7.7) k/uL Lymphocytes # (Manual) (1.0-4.8) k/uL ABG pH (7.35-7.45) ABG pCO2 (35-45) mmHg ABG O2 Saturation (94-97) % Sodium (137-145) mmol/L Chloride (98-107) mmol/L BUN (9-20) mg/dL Creatinine (0.66-1.25) mg/dL Glucose (74-99) mg/dL POC Glucose (mg/dL) 140 H 119 H 165 H (75-99) mg/dL Calcium (8.4-10.2) mg/dL Iron (65-175) ug/dL TIBC (228-460) ug/dL Iron Saturation (15.00-50.00) Ferritin (22.0-322.0) ng/mL Total Bilirubin (0.2-1.3) mg/dL AST (17-59) U/L ALT (21-72) U/L Alkaline Phosphatase (38-126) U/L Total Protein (6.3-8.2) g/dL Albumin (3.5-5.0) g/dL Crossmatch 11/29/17 11/29/17 11/29/17 Range/Units 20:11 20:14 22:27 WBC 14.7 H (3.8-10.6) k/uL RBC 2.63 L (4.30-5.90) m/uL Hgb 7.8 L (13.0-17.5) gm/dL Hct 23.9 L (39.0-53.0) % RDW 18.6 H (11.5-15.5) % Plt Count 130 L (150-450) k/uL Neutrophils # (Manual) (1.3-7.7) k/uL Lymphocytes # (Manual) (1.0-4.8) k/uL ABG pH (7.35-7.45) ABG pCO2 (35-45) mmHg ABG O2 Saturation (94-97) % Sodium (137-145) mmol/L Chloride (98-107) mmol/L BUN (9-20) mg/dL Creatinine (0.66-1.25) mg/dL Glucose (74-99) mg/dL POC Glucose (mg/dL) 184 H 166 H (75-99) mg/dL Calcium (8.4-10.2) mg/dL Iron (65-175) ug/dL TIBC (228-460) ug/dL Iron Saturation (15.00-50.00) Ferritin (22.0-322.0) ng/mL Total Bilirubin (0.2-1.3) mg/dL AST (17-59) U/L ALT (21-72) U/L Alkaline Phosphatase (38-126) U/L Total Protein (6.3-8.2) g/dL Albumin (3.5-5.0) g/dL Crossmatch 11/30/17 11/30/17 11/30/17 Range/Units 00:12 02:11 03:49 WBC (3.8-10.6) k/uL RBC (4.30-5.90) m/uL Hgb (13.0-17.5) gm/dL Hct (39.0-53.0) % RDW (11.5-15.5) % Plt Count (150-450) k/uL Neutrophils # (Manual) (1.3-7.7) k/uL Lymphocytes # (Manual) (1.0-4.8) k/uL ABG pH (7.35-7.45) ABG pCO2 (35-45) mmHg ABG O2 Saturation (94-97) % Sodium (137-145) mmol/L Chloride (98-107) mmol/L BUN (9-20) mg/dL Creatinine (0.66-1.25) mg/dL Glucose (74-99) mg/dL POC Glucose (mg/dL) 161 H 161 H 164 H (75-99) mg/dL Calcium (8.4-10.2) mg/dL Iron (65-175) ug/dL TIBC (228-460) ug/dL Iron Saturation (15.00-50.00) Ferritin (22.0-322.0) ng/mL Total Bilirubin (0.2-1.3) mg/dL AST (17-59) U/L ALT (21-72) U/L Alkaline Phosphatase (38-126) U/L Total Protein (6.3-8.2) g/dL Albumin (3.5-5.0) g/dL Crossmatch 11/30/17 11/30/17 11/30/17 Range/Units 03:51 03:51 05:47 WBC 12.8 H (3.8-10.6) k/uL RBC 2.65 L (4.30-5.90) m/uL Hgb 8.0 L (13.0-17.5) gm/dL Hct 24.2 L (39.0-53.0) % RDW 19.0 H (11.5-15.5) % Plt Count 136 L (150-450) k/uL Neutrophils # (Manual) 12.42 H (1.3-7.7) k/uL Lymphocytes # (Manual) 0.13 L (1.0-4.8) k/uL ABG pH 7.49 H (7.35-7.45) ABG pCO2 34 L (35-45) mmHg ABG O2 Saturation 98.3 H (94-97) % Sodium 146 H (137-145) mmol/L Chloride 113 H (98-107) mmol/L BUN 131 H* (9-20) mg/dL Creatinine 1.60 H (0.66-1.25) mg/dL Glucose 156 H (74-99) mg/dL POC Glucose (mg/dL) (75-99) mg/dL Calcium 7.9 L (8.4-10.2) mg/dL Iron (65-175) ug/dL TIBC (228-460) ug/dL Iron Saturation (15.00-50.00) Ferritin (22.0-322.0) ng/mL Total Bilirubin 3.2 H (0.2-1.3) mg/dL AST 117 H (17-59) U/L ALT 183 H (21-72) U/L Alkaline Phosphatase 250 H (38-126) U/L Total Protein 5.3 L (6.3-8.2) g/dL Albumin 2.2 L (3.5-5.0) g/dL Crossmatch 11/30/17 11/30/17 11/30/17 Range/Units 06:27 08:19 08:51 WBC (3.8-10.6) k/uL RBC (4.30-5.90) m/uL Hgb (13.0-17.5) gm/dL Hct (39.0-53.0) % RDW (11.5-15.5) % Plt Count (150-450) k/uL Neutrophils # (Manual) (1.3-7.7) k/uL Lymphocytes # (Manual) (1.0-4.8) k/uL ABG pH 7.46 H (7.35-7.45) ABG pCO2 (35-45) mmHg ABG O2 Saturation 97.9 H (94-97) % Sodium (137-145) mmol/L Chloride (98-107) mmol/L BUN (9-20) mg/dL Creatinine (0.66-1.25) mg/dL Glucose (74-99) mg/dL POC Glucose (mg/dL) 162 H 162 H (75-99) mg/dL Calcium (8.4-10.2) mg/dL Iron (65-175) ug/dL TIBC (228-460) ug/dL Iron Saturation (15.00-50.00) Ferritin (22.0-322.0) ng/mL Total Bilirubin (0.2-1.3) mg/dL AST (17-59) U/L ALT (21-72) U/L Alkaline Phosphatase (38-126) U/L Total Protein (6.3-8.2) g/dL Albumin (3.5-5.0) g/dL Crossmatch 11/30/17 Range/Units 10:46 WBC (3.8-10.6) k/uL RBC (4.30-5.90) m/uL Hgb (13.0-17.5) gm/dL Hct (39.0-53.0) % RDW (11.5-15.5) % Plt Count (150-450) k/uL Neutrophils # (Manual) (1.3-7.7) k/uL Lymphocytes # (Manual) (1.0-4.8) k/uL ABG pH (7.35-7.45) ABG pCO2 (35-45) mmHg ABG O2 Saturation (94-97) % Sodium (137-145) mmol/L Chloride (98-107) mmol/L BUN (9-20) mg/dL Creatinine (0.66-1.25) mg/dL Glucose (74-99) mg/dL POC Glucose (mg/dL) 151 H (75-99) mg/dL Calcium (8.4-10.2) mg/dL Iron (65-175) ug/dL TIBC (228-460) ug/dL Iron Saturation (15.00-50.00) Ferritin (22.0-322.0) ng/mL Total Bilirubin (0.2-1.3) mg/dL AST (17-59) U/L ALT (21-72) U/L Alkaline Phosphatase (38-126) U/L Total Protein (6.3-8.2) g/dL Albumin (3.5-5.0) g/dL Crossmatch Microbiology - Last 24 Hours (Table) 11/24/17 10:25 Blood Culture - Preliminary Blood No Growth after 120 hours 11/24/17 10:51 Blood Culture - Preliminary Blood No Growth after 120 hours Assessment and Plan Plan: Assessment: 1. Nonoliguric acute kidney injury secondary to ATN secondary to hemodynamic instability/post CABG. Renal function improved since admission with creatinine stable at 1.6 today. Baseline creatinine is 1. 2. Status post CABG and mitral valve repair. 3. Systolic CHF with ejection fraction of 30-35%. 4. Anemia status post blood transfusion this admission. Hgb 8 today. Severe iron deficiency noted. 5. Hypotension now off Levophed. Cortisol level 29. 6. Mild hypernatremia from lack of oral water intake. Expect improvement once oral intake initiated. Plan: Remains off IV fluids. Avoid nephrotoxins. Continue to monitor renal function and urine output. Ferrlecit 125 mg IV today - this will be his second dose.
[2017-11-30 12:39] LABS: Glucose,Whole Blood 118 mg/dL (75-99)
--- NOTE | 2017-11-30 12:43 | P.PN ---
<MyarAmy A - Last Filed: 11/30/17 12:28> Subjective Progress Note Date: 11/29/17 This is a pleasant gentleman patient of Dr. Spann, newly established to the office to evaluate shortness of breath, dyspnea on exertion, underwent cardiac cath and found to have ischemic cardiomyopathy with severe LV dysfunction, triple-vessel disease prior to bypass surgery, admitted for bypass surgery and valve repair. He has underlying history of diabetes mellitus type 2, hyperlipidemia, Cardiac cath performed 11/09/2017 shows left main coronary up was calcified, circumflex 95% stenosis in the ostial portion, LAD totally occluded just of to the origin of the large diagonal branch, diagonal branch from the percent stenosis, 70% stenosis in the PDA and PLV severe left ventricle systolic dysfunction and mitral regurgitation He is currently in ICU being prepped for CABG and mitral valve repair on 2017 and has intra-aortic balloon pump done through the right femoral artery. 11/17: Patient is having open-heart surgery today. 11/18: Patient is status post quadruple coronary artery bypass grafting using the left internal mammary artery to the left anterior descending coronary artery, a reverse greater saphenous vein graft from the aorta to the diagonal coronary artery, reverse greater saphenous vein graft from the aorta to the first obtuse marginal coronary artery, a reverse greater saphenous vein graft from the aorta to the posterior descending coronary artery and mitral valve repair. Patient remains in the intensive care unit intubated and on mechanical ventilation currently on CPAP for weaning parameters. He continues to have intra-aortic balloon pump in place which is plan to keep for 1 more day. He has a right, left and mediastinal chest tubes in place draining serosanguineous fluid. Urine output is 50-60 mL per hour. He is also on vasopressors. Hemoglobin A1c is 6.7. 8: Patient remains in the intensive care unit. He is currently off oxygen and pulse oxing. He continues to have all [address] Balloon pump was removed. Urine output has been adequate. White count is normal. Hemoglobin 7.3, INR 1.5, creatinine 0.93, blood sugars are running between 104 and 127. He has been afebrile. Heart rate running in the 90s. Blood pressure is stable with current vasopressors. Pulse ox is 9700% on room air. Patient denies having any chest pain. No abdominal pain. No nausea. 8. Patient examined the bedside in the ICU. Currently off oxygen. He is not making enough urine output. Creatinine function has worsened from 0.8-1.2. Hemoglobin 7 this morning status post transfusion 1 unit PRBC. Patient is denies any chest pain, shortness of breath is resting comfortably in the chair. He still continues to have [address] with a AARON drain. Blood sugar between 100-125. 11/21 patient examined bedside in the ICU. Brief episode of atrial fibrillation last night and one dose of IV amiodarone given followed by a maintenance dose Afinitor on 400 mg twice a day. Creatinine increased to 1.8 today. Patient is having minimal urine output with less than 10 mL per hour. Patient may benefit from IV fluids as he has minimal oral intake and has minimal urine output. One bag of 250 mg abdomen given today. Patient received 2 units of PRBCs C yesterday. No bowel movements for the past 3 days. Patient is passing gas. Continue with bowel regimen 11/22: Patient hasn't been noted to have increasing renal numbers with BUN of 66 and creatinine 2.2 and nephrology has been consult did. Patient is also noted to have low urine output and dark urine. He is not eating very much. Patient is more lethargic today. He denies any abdominal pain. Heart rate is controlled in a sinus rhythm. He is currently on oral amiodarone and Lopressor for atrial fibrillation. No anticoagulation due to thrombocytopenia. He is currently off label fed but continued on Primacor. 11/23: Patient has been seen by hematology for thrombocytopenia secondary to shock liver and consumption. Fibrinogen to be checked. Patient be transfused if platelet count is less than 50,000. One dose of vitamin K was given for INR of 1.8 yesterday. INR today is at 2.5, platelet count 41. BUN 89, creatinine 2.30, AST 1470, ALT 721. Urinalysis is turbid, leukoesterase moderate, RBCs greater than 182, wbc's 37, Patient has also been seen by nephrology for acute kidney injury, acute tubular necrosis, oliguria. Recommendations to transfuse if hemoglobin is falls below 7.4 fluid bolus was attempted without improvement and patient was started on Lasix drip. Patient is also continued on Primacor. Urine output has been 35-75 mL per hour. Heart rate has been elevated in the low 100s. Patient has received calcium chloride 1 dose yesterday and repeat today. He was started on Midodrine 10 mg 3 times daily yesterday. He is more lethargic today. He has failed a swallow eval and speech therapy added. Patient has been started on Zoloft for depression but patient appears to be more acute delirium. Patient has been on and off norepinephrine as his blood pressures dropping into the 80 systolic when he sleeps. 11/24: Lasix drip has been discontinued. Patient has received 4 A of bicarbonate is on a bicarb drip. Patient is on levofed and vasopressin along with Primacor. He has received vitamin K and fresh frozen plasma. Urine output is 15-20 mL per hour. Central line was placed today requiring of fresh frozen plasma and vitamin K. There is concern for need of hemodialysis. Patient has diarrhea after having constipation and fecal management system has been placed. His mental status continued to decline yesterday and by this morning he was re -intubated. White count is increasing to 18.5, hemoglobin 7.1, platelet count 48. INR is 2.9, BUN 103, creatinine 3.17, phosphorus 7.5, magnesium 2.7, AST 1301, ALT 623. Total bilirubin is 5.8. Cortisol level was greater than 123. Patient will be resumed back on insulin drip due to hyperglycemia. Echocardiogram reveals EF of 40-45%, mild concentric left ventricular hypertrophy, and only mild gently dilated 34-39, moderate mitral stenosis, mild tricuspid regurgitation, mild pulmonary hypertension 11/25: Patient remains intubated and on mechanical ventilation. We resumed insulin drip yesterday. He remains on Levophed and milrinone. Renal function remains poor. 11/26: Patient remains in the intensive care unit, intubated and on mechanical ventilation. Patient has had good urine output. He remains on vasopressin, norepinephrine, insulin drip. BUN is 114 and creatinine 2.2, phosphorus 4.5, white count 14.6. Hemoglobin is 7. There are no orders for transfusion. INR is 1.7. Liver function tests are improving. Sputum culture showing gram- negative bacilli. 11/27: Patient continued to be intubated does not follow commands. Patient has developed atrial fibrillation and heart rate is currently controlled. Patient continued to require levo fed infusion at 6 mics per Per minute 11/28:Patient continued to be intubated does not follow commands. Patient has developed atrial fibrillation and heart rate is currently controlled. Patient was following commands by squeezing his hand this morning but currently is off sedation but still not following commands patient is moving his head to the right than to the left spontaneously and currently still on full vent support 11/29: Patient remains intubated and on mechanical ventilation. He is currently being CPAP. He has been off vasopressors since over the weekend. He is also off midodrine. Patient started on hydralazine. He is more alert and able to squeeze his hands with direction. Left is noted to be stronger than the right. He has continued on Primacor and insulin. We have ordered one dose of Ferrlecit and he is scheduled for transfusion 1 unit of packed RBCs for hemoglobin of 6.9. Liver function tests are improving. BUN is 131 and creatinine 1.6. Objective - Vital Signs Vital signs: Vital Signs Temp 98.3 F 11/28/17 12:00 Pulse 117 H 11/28/17 14:30 Resp 21 11/28/17 14:30 BP 106/59 11/28/17 14:30 Pulse Ox 98 11/28/17 14:30 Intake & Output 11/27/17 11/28/17 11/28/17 18:59 06:59 18:59 Intake Total 549.199 6054.585 681.397 Output Total 1105 1209 1020 Balance -223.159 321.585 -338.603 Weight 85.9 kg 84.8 kg Intake: IV 485.4 657.2 334.8 Milrinone-D5W 41.4 55.2 36.8 Piperacillin-Tazobactam 3 50 50 .375 gm In Dextrose/Water 1 50ml.bag @ 12.5 mls/hr IVPB Q8HR JANNA Rx#: [id number] Pressure Bags 54 72 48 Sodium Chloride 0.9% 1, 390 480 200 000 ml @ 40 mls/hr IV . Q24H JANNA Rx#:[id number] Intake, IV Titration 102.441 153.385 182.597 Amount Calcium Chloride 1,000 mg 100 In Sodium Chloride 0.9% 100 ml @ 100 mls/hr IVPB ONCE [facility] Rx#:[id number] Insulin Regular 100 unit 35.157 15.126 28.35 In Sodium Chloride 0.9% 100 ml @ Per Protocol IV .Q0M JANNA Rx#:[id number] Milrinone-D5w Pmx 20 mg 100 In Dextrose/Water 1 100ml .bag @ 0.2 MCG/KG/MIN 4. 66 mls/hr IV .[id number] JANNA Rx#:[id number] Norepinephrine 16 mg In 44.094 18.823 Dextrose 5% in Water 250 ml @ Titrate IV .Q0M JANNA Rx#:[id number] Propofol 1,000 mg In 23.19 19.436 54.247 Empty Bag 1 bag @ Titrate IV .Q0M JANNA Rx#: [id number] Tube Feeding 294 630 84 Other 90 80 Output: Chest Tube Drainage 210 344 155 left pleural 60 134 75 right pleural 150 210 80 Urine 895 865 865 Other: Voiding Method Indwelling Catheter Indwelling Catheter ABP, PAP, CO, CI - Last Documented Arterial Blood Pressure 114/58 Pulmonary Artery Pressure 40/15 Cardiac Output 5.0 Cardiac Index 2.7 - Exam General appearance: average body habitus, cooperative, no acute distress - EENT Eyes: anicteric sclerae, EOMI, PERRLA, dentition normal, normal appearance no vision in the left eye blurring of the cornea with spelling ENT: NA/AT, normal oropharynx, intubated and on mechanical ventilation - Respiratory Respiratory: bilateral: CTA, negative: diminished, dullness, rales, rhonchi, wheezing, continues to have right pleural, left pleural chest tubes in place. - Cardiovascular Rhythm: Regularly irregular Heart sounds: normal: S1, S2 Abnormal Heart Sounds: no systolic murmur, no diastolic murmur, no rub, no S3 Gallop, no S4 Gallop, no click, no other - Gastrointestinal General gastrointestinal: normal bowel sounds, soft, Fong draining clear dark urine - Integumentary Integumentary: normal, normal turgor - Neurologic Neurologic: He will follow a few simple commands - Musculoskeletal Musculoskeletal: gait not assessed - Labs CBC & Chem 7: 11/30/17 03:51 11/30/17 03:51 Labs: Abnormal Lab Results - Last 24 Hours (Table) 11/27/17 11/27/17 11/27/17 Range/Units 09:50 16:05 17:03 WBC (3.8-10.6) k/uL RBC (4.30-5.90) m/uL Hgb (13.0-17.5) gm/dL Hct (39.0-53.0) % RDW (11.5-15.5) % Plt Count (150-450) k/uL Neutrophils # (1.3-7.7) k/uL Lymphocytes # (1.0-4.8) k/uL PT (9.0-12.0) sec INR (<1.2) APTT (22.0-30.0) sec ABG pO2 (83-108) mmHg ABG O2 Saturation (94-97) % Chloride (98-107) mmol/L BUN (9-20) mg/dL Creatinine (0.66-1.25) mg/dL Glucose (74-99) mg/dL POC Glucose (mg/dL) 128 H 121 H (75-99) mg/dL Calcium (8.4-10.2) mg/dL Total Bilirubin (0.2-1.3) mg/dL AST (17-59) U/L ALT (21-72) U/L Alkaline Phosphatase (38-126) U/L Total Protein (6.3-8.2) g/dL Albumin (3.5-5.0) g/dL Procalcitonin 1.79 H (0.02-0.09) ng/mL 11/27/17 11/27/17 11/27/17 Range/Units 18:19 18:51 20:12 WBC (3.8-10.6) k/uL RBC (4.30-5.90) m/uL Hgb (13.0-17.5) gm/dL Hct (39.0-53.0) % RDW (11.5-15.5) % Plt Count (150-450) k/uL Neutrophils # (1.3-7.7) k/uL Lymphocytes # (1.0-4.8) k/uL PT (9.0-12.0) sec INR (<1.2) APTT (22.0-30.0) sec ABG pO2 (83-108) mmHg ABG O2 Saturation (94-97) % Chloride (98-107) mmol/L BUN (9-20) mg/dL Creatinine (0.66-1.25) mg/dL Glucose (74-99) mg/dL POC Glucose (mg/dL) 135 H 137 H 149 H (75-99) mg/dL Calcium (8.4-10.2) mg/dL Total Bilirubin (0.2-1.3) mg/dL AST (17-59) U/L ALT (21-72) U/L Alkaline Phosphatase (38-126) U/L Total Protein (6.3-8.2) g/dL Albumin (3.5-5.0) g/dL Procalcitonin (0.02-0.09) ng/mL 11/27/17 11/27/17 11/27/17 Range/Units 21:17 22:32 23:17 WBC (3.8-10.6) k/uL RBC (4.30-5.90) m/uL Hgb (13.0-17.5) gm/dL Hct (39.0-53.0) % RDW (11.5-15.5) % Plt Count (150-450) k/uL Neutrophils # (1.3-7.7) k/uL Lymphocytes # (1.0-4.8) k/uL PT (9.0-12.0) sec INR (<1.2) APTT (22.0-30.0) sec ABG pO2 (83-108) mmHg ABG O2 Saturation (94-97) % Chloride (98-107) mmol/L BUN (9-20) mg/dL Creatinine (0.66-1.25) mg/dL Glucose (74-99) mg/dL POC Glucose (mg/dL) 148 H 133 H 139 H (75-99) mg/dL Calcium (8.4-10.2) mg/dL Total Bilirubin (0.2-1.3) mg/dL AST (17-59) U/L ALT (21-72) U/L Alkaline Phosphatase (38-126) U/L Total Protein (6.3-8.2) g/dL Albumin (3.5-5.0) g/dL Procalcitonin (0.02-0.09) ng/mL 11/28/17 11/28/17 11/28/17 Range/Units 00:15 01:02 03:13 WBC (3.8-10.6) k/uL RBC (4.30-5.90) m/uL Hgb (13.0-17.5) gm/dL Hct (39.0-53.0) % RDW (11.5-15.5) % Plt Count (150-450) k/uL Neutrophils # (1.3-7.7) k/uL Lymphocytes # (1.0-4.8) k/uL PT (9.0-12.0) sec INR (<1.2) APTT (22.0-30.0) sec ABG pO2 (83-108) mmHg ABG O2 Saturation (94-97) % Chloride (98-107) mmol/L BUN (9-20) mg/dL Creatinine (0.66-1.25) mg/dL Glucose (74-99) mg/dL POC Glucose (mg/dL) 148 H 150 H 149 H (75-99) mg/dL Calcium (8.4-10.2) mg/dL Total Bilirubin (0.2-1.3) mg/dL AST (17-59) U/L ALT (21-72) U/L Alkaline Phosphatase (38-126) U/L Total Protein (6.3-8.2) g/dL Albumin (3.5-5.0) g/dL Procalcitonin (0.02-0.09) ng/mL 11/28/1718 11/28/17 Range/Units 04:20 04:20 04:20 WBC 20.4 H (3.8-10.6) k/uL RBC 2.52 L (4.30-5.90) m/uL Hgb 7.4 L (13.0-17.5) gm/dL Hct 23.0 L (39.0-53.0) % RDW 19.6 H (11.5-15.5) % Plt Count 95 L (150-450) k/uL Neutrophils # 18.6 H (1.3-7.7) k/uL Lymphocytes # 0.4 L (1.0-4.8) k/uL PT 12.2 H (9.0-12.0) sec INR 1.3 H (<1.2) APTT 36.6 H (22.0-30.0) sec ABG pO2 (83-108) mmHg ABG O2 Saturation (94-97) % Chloride 110 H (98-107) mmol/L BUN 125 H* (9-20) mg/dL Creatinine 1.82 H (0.66-1.25) mg/dL Glucose 131 H (74-99) mg/dL POC Glucose (mg/dL) (75-99) mg/dL Calcium 7.8 L (8.4-10.2) mg/dL Total Bilirubin 4.3 H (0.2-1.3) mg/dL AST 165 H (17-59) U/L ALT 269 H (21-72) U/L Alkaline Phosphatase 179 H (38-126) U/L Total Protein 5.1 L (6.3-8.2) g/dL Albumin 2.3 L (3.5-5.0) g/dL Procalcitonin (0.02-0.09) ng/mL 11/28/17 11/28/17 11/28/17 Range/Units 04:58 05:04 07:02 WBC (3.8-10.6) k/uL RBC (4.30-5.90) m/uL Hgb (13.0-17.5) gm/dL Hct (39.0-53.0) % RDW (11.5-15.5) % Plt Count (150-450) k/uL Neutrophils # (1.3-7.7) k/uL Lymphocytes # (1.0-4.8) k/uL PT (9.0-12.0) sec INR (<1.2) APTT (22.0-30.0) sec ABG pO2 152 H (83-108) mmHg ABG O2 Saturation 98.9 H (94-97) % Chloride (98-107) mmol/L BUN (9-20) mg/dL Creatinine (0.66-1.25) mg/dL Glucose (74-99) mg/dL POC Glucose (mg/dL) 144 H 149 H (75-99) mg/dL Calcium (8.4-10.2) mg/dL Total Bilirubin (0.2-1.3) mg/dL AST (17-59) U/L ALT (21-72) U/L Alkaline Phosphatase (38-126) U/L Total Protein (6.3-8.2) g/dL Albumin (3.5-5.0) g/dL Procalcitonin (0.02-0.09) ng/mL 11/28/17 11/28/17 11/28/17 Range/Units 08:09 10:18 12:19 WBC (3.8-10.6) k/uL RBC (4.30-5.90) m/uL Hgb (13.0-17.5) gm/dL Hct (39.0-53.0) % RDW (11.5-15.5) % Plt Count (150-450) k/uL Neutrophils # (1.3-7.7) k/uL Lymphocytes # (1.0-4.8) k/uL PT (9.0-12.0) sec INR (<1.2) APTT (22.0-30.0) sec ABG pO2 (83-108) mmHg ABG O2 Saturation (94-97) % Chloride (98-107) mmol/L BUN (9-20) mg/dL Creatinine (0.66-1.25) mg/dL Glucose (74-99) mg/dL POC Glucose (mg/dL) 152 H 139 H 130 H (75-99) mg/dL Calcium (8.4-10.2) mg/dL Total Bilirubin (0.2-1.3) mg/dL AST (17-59) U/L ALT (21-72) U/L Alkaline Phosphatase (38-126) U/L Total Protein (6.3-8.2) g/dL Albumin (3.5-5.0) g/dL Procalcitonin (0.02-0.09) ng/mL 11/28/17 Range/Units 14:17 WBC (3.8-10.6) k/uL RBC (4.30-5.90) m/uL Hgb (13.0-17.5) gm/dL Hct (39.0-53.0) % RDW (11.5-15.5) % Plt Count (150-450) k/uL Neutrophils # (1.3-7.7) k/uL Lymphocytes # (1.0-4.8) k/uL PT (9.0-12.0) sec INR (<1.2) APTT (22.0-30.0) sec ABG pO2 (83-108) mmHg ABG O2 Saturation (94-97) % Chloride (98-107) mmol/L BUN (9-20) mg/dL Creatinine (0.66-1.25) mg/dL Glucose (74-99) mg/dL POC Glucose (mg/dL) 138 H (75-99) mg/dL Calcium (8.4-10.2) mg/dL Total Bilirubin (0.2-1.3) mg/dL AST (17-59) U/L ALT (21-72) U/L Alkaline Phosphatase (38-126) U/L Total Protein (6.3-8.2) g/dL Albumin (3.5-5.0) g/dL Procalcitonin (0.02-0.09) ng/mL Microbiology - Last 24 Hours (Table) 11/24/17 10:25 Blood Culture - Preliminary Blood No Growth after 96 hours 11/24/17 10:51 Blood Culture - Preliminary Blood No Growth after 96 hours 11/24/17 20:30 Gram Stain - Final Sputum Sputum Culture - Final Klebsiella oxytoca Assessment and Plan Plan: (1) Coronary artery disease and moderate mitral valve regurgitation Triple vessel disease noted on cardiac cath agent status post CABG and mitral valve repair on all 11/17/2017. Continue on aspirin, metoprolol. ICU lay out maker Dr. Paul/Delonte on consult. Continue current management per cardio vascular surgery team (2) Ischemic cardiomyopathy Has impaired ejection fraction of 38%, along with congestive heart failure. (3) Congestive heart failure with cardiomyopathy Acute on chronic systolic and diastolic heart failure (4) Hyperlipidemia Patient currently not on statins (5) GI prophylaxis (6) DVT prophylaxis (7) Steal syndrome, subclavian Carotid Dopplers 11/10/2017 shows no carotid stenosis however there is to and fro flow within the right vertebral artery could reflect manifestation of subclavian steal physiology prior to with continuous flow reversal. Currently asymptomatic continue to monitor (8) Pulmonary hypertension PILAR on 11/10/2017, moderate pulmonary hypertension also shows intact atrial septum with no evidence of [id number] shunt physiology, unable to locate pressures for right ventricular systolic 9. Thrombocytopenia secondary to consumption. Fibrinogen ordered. Numbers improved and patient has been resumed back on aspirin, Plavix. Consult with oncology appreciated. Recommendations for platelet transfusion if less than 50, 000. 10. Anemia, secondary to a combination of acute blood loss and renal failure with drop in hemoglobin from 10-6.5. Patient is status post multiple blood products. Ferrlecit infusion. 11. Acute kidney injury, acute tubular necrosis, oliguric secondary to hypotension, hypoperfusion. Consult with nephrology appreciated. Off Lasix drip. Status post IV sodium bicarb and. 12. Post op atrial fibrillation, expected outcome of surgery. Patient has been on amiodarone and Lopressor. 13. Liver transaminitis and coagulopathy secondary to shock liver oncology consult appreciated. Continue to monitor closely. Statin resumed. 14. Depression, situational. Zoloft was subsequently discontinued. 15. Acute delirium secondary to acute illness. 16. Hyperglycemia without diabetes. Patient resumed on insulin drip. Hemoglobin A1c is 6.7. 17. Cardiorenal syndrome and cardiogenic shock requiring IV vasopressors. Vasopressors have been discontinued. 18. Diarrhea with possible acute GI bleed with acute blood loss anemia. Fecal management system was required. Stool for occult blood is positive. C diff toxin is negative Discharge plan: To be determined Impression and plan of care have been directed as dictated by the signing physician. Amy Renteria nurse practitioner acting as scribe for signing physician. <Naa Ambrosio - Last Filed: 12/15/17 08:59> Objective - Vital Signs Vital signs: Vital Signs Temp 98.0 F 12/09/17 12:00 Pulse 81 12/09/17 18:30 Resp 24 12/09/17 18:30 BP 121/50 12/09/17 18:30 Pulse Ox 98 12/09/17 18:30 ABP, PAP, CO, CI - Last Documented Arterial Blood Pressure 112/37 Pulmonary Artery Pressure 40/15 Cardiac Output 5.0 Cardiac Index 2.7 - Labs CBC & Chem 7: 12/09/17 05:20 12/09/17 05:20 Labs: Microbiology - Last 24 Hours (Table) 12/06/17 22:12 Stool Culture - Final Stool
--- NOTE | 2017-11-30 12:49 | P.PN ---
Subjective Progress Note Date: 11/30/17 This is a pleasant gentleman patient of Dr. Spann, newly established to the office to evaluate shortness of breath, dyspnea on exertion, underwent cardiac cath and found to have ischemic cardiomyopathy with severe LV dysfunction, triple-vessel disease prior to bypass surgery, admitted for bypass surgery and valve repair. He has underlying history of diabetes mellitus type 2, hyperlipidemia, Cardiac cath performed 11/09/2017 shows left main coronary up was calcified, circumflex 95% stenosis in the ostial portion, LAD totally occluded just of to the origin of the large diagonal branch, diagonal branch from the percent stenosis, 70% stenosis in the PDA and PLV severe left ventricle systolic dysfunction and mitral regurgitation He is currently in ICU being prepped for CABG and mitral valve repair on 2017 and has intra-aortic balloon pump done through the right femoral artery. 11/17: Patient is having open-heart surgery today. 11/18: Patient is status post quadruple coronary artery bypass grafting using the left internal mammary artery to the left anterior descending coronary artery, a reverse greater saphenous vein graft from the aorta to the diagonal coronary artery, reverse greater saphenous vein graft from the aorta to the first obtuse marginal coronary artery, a reverse greater saphenous vein graft from the aorta to the posterior descending coronary artery and mitral valve repair. Patient remains in the intensive care unit intubated and on mechanical ventilation currently on CPAP for weaning parameters. He continues to have intra-aortic balloon pump in place which is plan to keep for 1 more day. He has a right, left and mediastinal chest tubes in place draining serosanguineous fluid. Urine output is 50-60 mL per hour. He is also on vasopressors. Hemoglobin A1c is 6.7. 83: Patient remains in the intensive care unit. He is currently off oxygen and pulse oxing. He continues to have all [address] Balloon pump was removed. Urine output has been adequate. White count is normal. Hemoglobin 7.3, INR 1.5, creatinine 0.93, blood sugars are running between 104 and 127. He has been afebrile. Heart rate running in the 90s. Blood pressure is stable with current vasopressors. Pulse ox is 9700% on room air. Patient denies having any chest pain. No abdominal pain. No nausea. 8/4. Patient examined the bedside in the ICU. Currently off oxygen. He is not making enough urine output. Creatinine function has worsened from 0.8-1.2. Hemoglobin 7 this morning status post transfusion 1 unit PRBC. Patient is denies any chest pain, shortness of breath is resting comfortably in the chair. He still continues to have [address] with a AARON drain. Blood sugar between 100-125. 11/21 patient examined bedside in the ICU. Brief episode of atrial fibrillation last night and one dose of IV amiodarone given followed by a maintenance dose Afinitor on 400 mg twice a day. Creatinine increased to 1.8 today. Patient is having minimal urine output with less than 10 mL per hour. Patient may benefit from IV fluids as he has minimal oral intake and has minimal urine output. One bag of 250 mg abdomen given today. Patient received 2 units of PRBCs C yesterday. No bowel movements for the past 3 days. Patient is passing gas. Continue with bowel regimen 11/22: Patient hasn't been noted to have increasing renal numbers with BUN of 66 and creatinine 2.2 and nephrology has been consult did. Patient is also noted to have low urine output and dark urine. He is not eating very much. Patient is more lethargic today. He denies any abdominal pain. Heart rate is controlled in a sinus rhythm. He is currently on oral amiodarone and Lopressor for atrial fibrillation. No anticoagulation due to thrombocytopenia. He is currently off label fed but continued on Primacor. 11/23: Patient has been seen by hematology for thrombocytopenia secondary to shock liver and consumption. Fibrinogen to be checked. Patient be transfused if platelet count is less than 50,000. One dose of vitamin K was given for INR of 1.8 yesterday. INR today is at 2.5, platelet count 41. BUN 89, creatinine 2.30, AST 1470, ALT 721. Urinalysis is turbid, leukoesterase moderate, RBCs greater than 182, wbc's 37, Patient has also been seen by nephrology for acute kidney injury, acute tubular necrosis, oliguria. Recommendations to transfuse if hemoglobin is falls below 7.4 fluid bolus was attempted without improvement and patient was started on Lasix drip. Patient is also continued on Primacor. Urine output has been 35-75 mL per hour. Heart rate has been elevated in the low 100s. Patient has received calcium chloride 1 dose yesterday and repeat today. He was started on Midodrine 10 mg 3 times daily yesterday. He is more lethargic today. He has failed a swallow eval and speech therapy added. Patient has been started on Zoloft for depression but patient appears to be more acute delirium. Patient has been on and off norepinephrine as his blood pressures dropping into the 80 systolic when he sleeps. 11/24: Lasix drip has been discontinued. Patient has received 4 A of bicarbonate is on a bicarb drip. Patient is on levofed and vasopressin along with Primacor. He has received vitamin K and fresh frozen plasma. Urine output is 15-20 mL per hour. Central line was placed today requiring of fresh frozen plasma and vitamin K. There is concern for need of hemodialysis. Patient has diarrhea after having constipation and fecal management system has been placed. His mental status continued to decline yesterday and by this morning he was re -intubated. White count is increasing to 18.5, hemoglobin 7.1, platelet count 48. INR is 2.9, BUN 103, creatinine 3.17, phosphorus 7.5, magnesium 2.7, AST 1301, ALT 623. Total bilirubin is 5.8. Cortisol level was greater than 123. Patient will be resumed back on insulin drip due to hyperglycemia. Echocardiogram reveals EF of 40-45%, mild concentric left ventricular hypertrophy, and only mild gently dilated 34-39, moderate mitral stenosis, mild tricuspid regurgitation, mild pulmonary hypertension 11/25: Patient remains intubated and on mechanical ventilation. We resumed insulin drip yesterday. He remains on Levophed and milrinone. Renal function remains poor. 11/26: Patient remains in the intensive care unit, intubated and on mechanical ventilation. Patient has had good urine output. He remains on vasopressin, norepinephrine, insulin drip. BUN is 114 and creatinine 2.2, phosphorus 4.5, white count 14.6. Hemoglobin is 7. There are no orders for transfusion. INR is 1.7. Liver function tests are improving. Sputum culture showing gram- negative bacilli. 11/27: Patient continued to be intubated does not follow commands. Patient has developed atrial fibrillation and heart rate is currently controlled. Patient continued to require levo fed infusion at 6 mics per Per minute 11/28:Patient continued to be distended does not follow commands. Patient has developed atrial fibrillation and heart rate is currently controlled. Patient was following commands by squeezing his hand this morning but currently is off sedation but still not following commands patient is moving his head to the right than to the left spontaneously and currently still on full vent support 11/29: Patient remains intubated and on mechanical ventilation. He is currently being CPAP. He has been off vasopressors since over the weekend. He is also off midodrine. Patient started on hydralazine. He is more alert and able to squeeze his hands with direction. Left is noted to be stronger than the right. He has continued on Primacor and insulin. We have ordered one dose of Ferrlecit and he is scheduled for transfusion 1 unit of packed RBCs for hemoglobin of 6.9. Liver function tests are improving. BUN is 131 and creatinine 1.6. 11/30: Patient remains in intensive care unit intubated and on mechanical ventilation. He continues to be off vasopressors. He remains on Primacor. Urine output has been between 45 and 150 mL per hour. BUN 131 and creatinine 1.6. White count is down to 12.8, hemoglobin is now 8 after 1 unit of packed RBCs and he received Ferrlecit yesterday. White blood count is recovering now at 136. Liver function tests are all improving as well. Overall, patient is showing slow gradual improvement. Another dose of Ferrlecit has been ordered by nephrology. Objective - Vital Signs Vital signs: Vital Signs Temp 97.9 F 11/30/17 08:00 Pulse 113 H 11/30/17 09:15 Resp 26 H 11/30/17 09:15 BP 121/59 11/29/17 11:00 Pulse Ox 99 11/30/17 09:15 Intake & Output 11/29/17 11/30/17 11/30/17 18:59 06:59 18:59 Intake Total 9613.201 0392.893 50.123 Output Total 1715 1385 385 Balance 222.460 185.893 -334.877 Weight 85 kg 86.1 kg Intake: IV 302.0 242 16 KVO 130 120 10 Piperacillin-Tazobactam 3 100.0 50 .375 gm In Dextrose/Water 1 50ml.bag @ 12.5 mls/hr IVPB Q8HR [facility] Rx#: [id number] Pressure Bags 72 72 6 Intake, IV Titration 121.460 116.893 34.123 Amount Insulin Regular 100 unit 21.460 16.893 34.123 In Sodium Chloride 0.9% 100 ml @ Per Protocol IV .Q0M [facility] Rx#:[id number] Milrinone-D5w Pmx 20 mg 100 In Dextrose/Water 1 100ml .bag @ 0.2 MCG/KG/MIN 4. 66 mls/hr IV .[id number] [facility] Rx#:[id number] Sodium Ferric Gluconat- 100 Sucrose 125 mg In Sodium Chloride 0.9% 100 ml @ 100 mls/hr IVPB ONCE ONE Rx#:[id number] Tube Feeding 544 912 Blood Product 495 Rc As-1 Unit 310 [id number] Other 475 300 Rc As-1 Unit 50 [id number] Output: Chest Tube Drainage 160 155 60 right pleural 160 155 60 Urine 1555 1230 325 Other: Voiding Method Indwelling Catheter Indwelling Catheter Indwelling Catheter # Bowel Movements 1 ABP, PAP, CO, CI - Last Documented Arterial Blood Pressure 131/58 Pulmonary Artery Pressure 40/15 Cardiac Output 5.0 Cardiac Index 2.7 - Exam General appearance: average body habitus, cooperative, no acute distress - EENT Eyes: anicteric sclerae, EOMI, PERRLA, dentition normal, normal appearance no vision in the left eye blurring of the cornea with spelling ENT: NA/AT, normal oropharynx, intubated and on mechanical ventilation - Respiratory Respiratory: bilateral: CTA, negative: diminished, dullness, rales, rhonchi, wheezing, continues to have right pleural, left pleural chest tubes in place. - Cardiovascular Rhythm: Regularly irregular Heart sounds: normal: S1, S2 Abnormal Heart Sounds: no systolic murmur, no diastolic murmur, no rub, no S3 Gallop, no S4 Gallop, no click, no other - Gastrointestinal General gastrointestinal: normal bowel sounds, soft, Fogn draining clear dark urine - Integumentary Integumentary: normal, normal turgor - Neurologic Neurologic: He will follow a few simple commands - Musculoskeletal Musculoskeletal: gait not assessed - Labs CBC & Chem 7: 11/30/17 03:51 11/30/17 03:51 Labs: Abnormal Lab Results - Last 24 Hours (Table) 11/28/17 11/29/17 11/29/17 Range/Units 04:20 08:15 12:00 WBC (3.8-10.6) k/uL RBC (4.30-5.90) m/uL Hgb (13.0-17.5) gm/dL Hct (39.0-53.0) % RDW (11.5-15.5) % Plt Count (150-450) k/uL Neutrophils # (Manual) (1.3-7.7) k/uL Lymphocytes # (Manual) (1.0-4.8) k/uL ABG pH (7.35-7.45) ABG pCO2 (35-45) mmHg ABG O2 Saturation (94-97) % Sodium (137-145) mmol/L Chloride (98-107) mmol/L BUN (9-20) mg/dL Creatinine (0.66-1.25) mg/dL Glucose (74-99) mg/dL POC Glucose (mg/dL) 135 H (75-99) mg/dL Calcium (8.4-10.2) mg/dL Iron 16 L (65-175) ug/dL TIBC 208 L (228-460) ug/dL Iron Saturation 7.69 L (15.00-50.00) Ferritin 679.6 H (22.0-322.0) ng/mL Total Bilirubin (0.2-1.3) mg/dL AST (17-59) U/L ALT (21-72) U/L Alkaline Phosphatase (38-126) U/L Total Protein (6.3-8.2) g/dL Albumin (3.5-5.0) g/dL Crossmatch See Detail 11/29/17 11/29/17 11/29/17 Range/Units 13:57 16:02 18:06 WBC (3.8-10.6) k/uL RBC (4.30-5.90) m/uL Hgb (13.0-17.5) gm/dL Hct (39.0-53.0) % RDW (11.5-15.5) % Plt Count (150-450) k/uL Neutrophils # (Manual) (1.3-7.7) k/uL Lymphocytes # (Manual) (1.0-4.8) k/uL ABG pH (7.35-7.45) ABG pCO2 (35-45) mmHg ABG O2 Saturation (94-97) % Sodium (137-145) mmol/L Chloride (98-107) mmol/L BUN (9-20) mg/dL Creatinine (0.66-1.25) mg/dL Glucose (74-99) mg/dL POC Glucose (mg/dL) 140 H 119 H 165 H (75-99) mg/dL Calcium (8.4-10.2) mg/dL Iron (65-175) ug/dL TIBC (228-460) ug/dL Iron Saturation (15.00-50.00) Ferritin (22.0-322.0) ng/mL Total Bilirubin (0.2-1.3) mg/dL AST (17-59) U/L ALT (21-72) U/L Alkaline Phosphatase (38-126) U/L Total Protein (6.3-8.2) g/dL Albumin (3.5-5.0) g/dL Crossmatch 11/29/17 11/29/17 11/29/17 Range/Units 20:11 20:14 22:27 WBC 14.7 H (3.8-10.6) k/uL RBC 2.63 L (4.30-5.90) m/uL Hgb 7.8 L (13.0-17.5) gm/dL Hct 23.9 L (39.0-53.0) % RDW 18.6 H (11.5-15.5) % Plt Count 130 L (150-450) k/uL Neutrophils # (Manual) (1.3-7.7) k/uL Lymphocytes # (Manual) (1.0-4.8) k/uL ABG pH (7.35-7.45) ABG pCO2 (35-45) mmHg ABG O2 Saturation (94-97) % Sodium (137-145) mmol/L Chloride (98-107) mmol/L BUN (9-20) mg/dL Creatinine (0.66-1.25) mg/dL Glucose (74-99) mg/dL POC Glucose (mg/dL) 184 H 166 H (75-99) mg/dL Calcium (8.4-10.2) mg/dL Iron (65-175) ug/dL TIBC (228-460) ug/dL Iron Saturation (15.00-50.00) Ferritin (22.0-322.0) ng/mL Total Bilirubin (0.2-1.3) mg/dL AST (17-59) U/L ALT (21-72) U/L Alkaline Phosphatase (38-126) U/L Total Protein (6.3-8.2) g/dL Albumin (3.5-5.0) g/dL Crossmatch 11/30/17 11/30/17 11/30/17 Range/Units 00:12 02:11 03:49 WBC (3.8-10.6) k/uL RBC (4.30-5.90) m/uL Hgb (13.0-17.5) gm/dL Hct (39.0-53.0) % RDW (11.5-15.5) % Plt Count (150-450) k/uL Neutrophils # (Manual) (1.3-7.7) k/uL Lymphocytes # (Manual) (1.0-4.8) k/uL ABG pH (7.35-7.45) ABG pCO2 (35-45) mmHg ABG O2 Saturation (94-97) % Sodium (137-145) mmol/L Chloride (98-107) mmol/L BUN (9-20) mg/dL Creatinine (0.66-1.25) mg/dL Glucose (74-99) mg/dL POC Glucose (mg/dL) 161 H 161 H 164 H (75-99) mg/dL Calcium (8.4-10.2) mg/dL Iron (65-175) ug/dL TIBC (228-460) ug/dL Iron Saturation (15.00-50.00) Ferritin (22.0-322.0) ng/mL Total Bilirubin (0.2-1.3) mg/dL AST (17-59) U/L ALT (21-72) U/L Alkaline Phosphatase (38-126) U/L Total Protein (6.3-8.2) g/dL Albumin (3.5-5.0) g/dL Crossmatch 11/30/17 11/30/17 11/30/17 Range/Units 03:51 03:51 05:47 WBC 12.8 H (3.8-10.6) k/uL RBC 2.65 L (4.30-5.90) m/uL Hgb 8.0 L (13.0-17.5) gm/dL Hct 24.2 L (39.0-53.0) % RDW 19.0 H (11.5-15.5) % Plt Count 136 L (150-450) k/uL Neutrophils # (Manual) 12.42 H (1.3-7.7) k/uL Lymphocytes # (Manual) 0.13 L (1.0-4.8) k/uL ABG pH 7.49 H (7.35-7.45) ABG pCO2 34 L (35-45) mmHg ABG O2 Saturation 98.3 H (94-97) % Sodium 146 H (137-145) mmol/L Chloride 113 H (98-107) mmol/L BUN 131 H* (9-20) mg/dL Creatinine 1.60 H (0.66-1.25) mg/dL Glucose 156 H (74-99) mg/dL POC Glucose (mg/dL) (75-99) mg/dL Calcium 7.9 L (8.4-10.2) mg/dL Iron (65-175) ug/dL TIBC (228-460) ug/dL Iron Saturation (15.00-50.00) Ferritin (22.0-322.0) ng/mL Total Bilirubin 3.2 H (0.2-1.3) mg/dL AST 117 H (17-59) U/L ALT 183 H (21-72) U/L Alkaline Phosphatase 250 H (38-126) U/L Total Protein 5.3 L (6.3-8.2) g/dL Albumin 2.2 L (3.5-5.0) g/dL Crossmatch 11/30/17 11/30/17 11/30/17 Range/Units 06:27 08:19 08:51 WBC (3.8-10.6) k/uL RBC (4.30-5.90) m/uL Hgb (13.0-17.5) gm/dL Hct (39.0-53.0) % RDW (11.5-15.5) % Plt Count (150-450) k/uL Neutrophils # (Manual) (1.3-7.7) k/uL Lymphocytes # (Manual) (1.0-4.8) k/uL ABG pH 7.46 H (7.35-7.45) ABG pCO2 (35-45) mmHg ABG O2 Saturation 97.9 H (94-97) % Sodium (137-145) mmol/L Chloride (98-107) mmol/L BUN (9-20) mg/dL Creatinine (0.66-1.25) mg/dL Glucose (74-99) mg/dL POC Glucose (mg/dL) 162 H 162 H (75-99) mg/dL Calcium (8.4-10.2) mg/dL Iron (65-175) ug/dL TIBC (228-460) ug/dL Iron Saturation (15.00-50.00) Ferritin (22.0-322.0) ng/mL Total Bilirubin (0.2-1.3) mg/dL AST (17-59) U/L ALT (21-72) U/L Alkaline Phosphatase (38-126) U/L Total Protein (6.3-8.2) g/dL Albumin (3.5-5.0) g/dL Crossmatch Microbiology - Last 24 Hours (Table) 11/24/17 10:25 Blood Culture - Preliminary Blood No Growth after 120 hours 11/24/17 10:51 Blood Culture - Preliminary Blood No Growth after 120 hours Assessment and Plan Plan: (1) Coronary artery disease and moderate mitral valve regurgitation Triple vessel disease noted on cardiac cath agent status post CABG and mitral valve repair on all 11/17/2017. Continue on aspirin, metoprolol. ICU cnc set up operator Dr. Paul/Delonte on consult. Continue current management per cardio vascular surgery team (2) Ischemic cardiomyopathy Has impaired ejection fraction of 38%, along with congestive heart failure. (3) Congestive heart failure with cardiomyopathy Acute on chronic systolic and diastolic heart failure (4) Hyperlipidemia Patient currently not on statins (5) GI prophylaxis (6) DVT prophylaxis (7) Steal syndrome, subclavian Carotid Dopplers 11/10/2017 shows no carotid stenosis however there is to and fro flow within the right vertebral artery could reflect manifestation of subclavian steal physiology prior to with continuous flow reversal. Currently asymptomatic continue to monitor (8) Pulmonary hypertension PILAR on 11/10/2017, moderate pulmonary hypertension also shows intact atrial septum with no evidence of [id number] shunt physiology, unable to locate pressures for right ventricular systolic 9. Thrombocytopenia secondary to consumption. Fibrinogen ordered. Numbers improved and patient has been resumed back on aspirin, Plavix. Consult with oncology appreciated. Recommendations for platelet transfusion if less than 50, 000. 10. Anemia, secondary to a combination of acute blood loss and renal failure with drop in hemoglobin from 10-6.5. Patient is status post multiple blood products. Ferrlecit infusion. 11. Acute kidney injury, acute tubular necrosis, oliguric secondary to hypotension, hypoperfusion. Consult with nephrology appreciated. Off Lasix drip. Status post IV sodium bicarb and. 12. Post op atrial fibrillation, expected outcome of surgery. Patient has been on amiodarone and Lopressor. 13. Liver transaminitis and coagulopathy secondary to shock liver oncology consult appreciated. Continue to monitor closely. Statin resumed. 14. Depression, situational. Zoloft was subsequently discontinued. 15. Acute delirium secondary to acute illness. 16. Hyperglycemia without diabetes. Patient resumed on insulin drip. Hemoglobin A1c is 6.7. 17. Cardiorenal syndrome and cardiogenic shock requiring IV vasopressors. Vasopressors have been discontinued. 18. Diarrhea with possible acute GI bleed with acute blood loss anemia. Fecal management system was required. Stool for occult blood is positive. C diff toxin is negative Discharge plan: To be determined Impression and plan of care have been directed as dictated by the signing physician. Amy Renteria nurse practitioner acting as scribe for signing physician.
[2017-11-30] MEDS ORDERED: SODIUM FERRIC GLUCONAT-SUCROSE 125 MG in SODIUM CHLORIDE 0.9% 100 ML IVPB ONE (13:00)
--- NOTE | 2017-11-30 13:13 | PN ---
PROGRESS NOTE This patient is status post coronary artery bypass surgery. Patient is extubated this morning. He is comfortable. No respiratory distress is noted. The patient, however, congested and is not able to bring up, cough up, any secretions. Patient's respiratory rate is 24. Patient is afebrile. Blood pressure is 122/48 mmHg. First and second heart sounds are normal. Lungs reveal bilateral scattered wheezes. The patient's urine output remains good. Arterial blood gases are satisfactory and the patient has a creatinine is 1.6. The patient is started on hydralazine 25 mg b.i.d. We will continue the rest of the medications. Patient is currently is in normal sinus rhythm. MMODL / IJN: [id number] /
[2017-11-30 13:28] LABS: Glucose,Whole Blood 129 mg/dL (75-99)
[2017-11-30 14:21] LABS: Glucose,Whole Blood 148 mg/dL (75-99)
[2017-11-30 14:53] LABS: Glucose,Whole Blood 156 mg/dL (75-99)
[2017-11-30] MEDS: ACETYLCYSTEINE 800 MG/4 ML VIAL INHALATION SCH ×3 (15:15→19:11)
[2017-11-30 16:03] LABS: Glucose,Whole Blood 153 mg/dL (75-99)
[2017-11-30] MEDS: DEXMEDETOMIDINE/0.9% NACL(PMX) 400 MCG in EMPTY BAG 1 BAG IV SCH (16:21)
[2017-11-30 17:03] LABS: ABG HCO3 27 mmol/L (21-25); ABG Oxygen Saturation 99.1 % (94-97); ABG PCO2 36 mmHg (35-45); ABG PH 7.47 (7.35-7.45); ABG PO2 112 mmHg (83-108); ABG TCO2 28 mmol/L (19-24)
[2017-11-30] MEDS ORDERED: DEXTROSE 5%-0.45% NACL 1,000 ML IV SCH (17:15)
[2017-11-30 18:15] LABS: Glucose,Whole Blood 143 mg/dL (75-99)
[2017-11-30] MEDS: METOPROLOL TARTRATE 5 MG/5 ML VIAL IVP SCH (18:28)
[2017-11-30] MEDS ORDERED: NOREPINEPHRIN 16 MG-0.9%NS PMX 16 MG/250 ML ML IV SCH (19:00)
[2017-11-30 19:59] LABS: Glucose,Whole Blood 136 mg/dL (75-99)
[2017-11-30] MEDS: ATORVASTATIN 40 MG TAB PO SCH (20:53)
[2017-11-30] MEDS: SENNOSIDES-DOCUSATE SODIUM 1 EACH TAB PO SCH (20:54)
[2017-11-30] MEDS: MELATONIN 5 MG TABLET PO SCH (20:54)
[2017-11-30] MEDS: METOPROLOL TARTRATE 25 MG TAB PO SCH (20:54)
[2017-11-30] MEDS: prednisoLONE ACETATE 1% OPHTH DROPS 5 ML BTL LEFT EYE SCH (21:07)
[2017-11-30] MEDS: ERYTHROMYCIN 5 MG/GM OPHTH OINT 3.5 GM TUBE LEFT EYE SCH (21:08)
[2017-11-30 22:02] LABS: Glucose,Whole Blood 134 mg/dL (75-99)
[2017-12-01] MEDS: PIPERACILLIN-TAZOBACTAM 3.375 GM in DEXTROSE/WATER 1 50ML.BAG IVPB SCH ×4 (00:05→23:00)
[2017-12-01] MEDS: METOPROLOL TARTRATE 5 MG/5 ML VIAL IVP SCH ×5 (00:05→22:59)
[2017-12-01] MEDS: HEPARIN SODIUM,PORCINE 5,000 UNIT/ML 1 ML VIAL SQ SCH ×4 (00:06→23:00)
[2017-12-01 01:00] LABS: Glucose,Whole Blood 136 mg/dL (75-99)
[2017-12-01 02:12] LABS: Glucose,Whole Blood 149 mg/dL (75-99)
[2017-12-01 04:13] LABS: Glucose,Whole Blood 146 mg/dL (75-99)
[2017-12-01 05:16] LABS: Anisocytosis Slight; Basophils % (A) 0 %; Eosinophils % (A) 0 %; HGB 8.1 gm/dL (13.0-17.5); Hypochromasia Slight; Lymphocytes # (A) 0.3 k/uL (1.0-4.8); Lymphocytes % (A) 2 %; MCH 29.4 pg (25.0-35.0); MCHC 32.3 g/dL (31.0-37.0); MCV 91.1 fL (80.0-100.0); Mean Platelet Volume 11.5; Monocytes # (A) 0.8 k/uL (0-1.0); Monocytes % (A) 6 %; Neutrophils # (A) 12.4 k/uL (1.3-7.7); Neutrophils % (A) 90 %; Platelet Count 138 k/uL (150-450); Poikilocytosis Slight; RBC 2.75 m/uL (4.30-5.90); RDW 18.4 % (11.5-15.5); WBC 13.7 k/uL (3.8-10.6)
[2017-12-01 05:33] LABS: Ionized Calcium 4.7 mg/dL (4.5-5.3)
[2017-12-01 05:41] LABS: Albumin 2.3 g/dL (3.5-5.0); Calcium 7.9 mg/dL (8.4-10.2); Magnesium 2.5 mg/dL (1.6-2.3); Phosphorus 4.9 mg/dL (2.5-4.5); Potassium 3.5 mmol/L (3.5-5.1); Total Bilirubin 3.5 mg/dL (0.2-1.3); Total Protein 5.3 g/dL (6.3-8.2)
[2017-12-01 06:05] LABS: Glucose,Whole Blood 132 mg/dL (75-99)
[2017-12-01] MEDS ORDERED: Potassium Replacement Protocol 1 EACH MISC MISCELLANE PRN (06:49)
[2017-12-01] MEDS: ACETYLCYSTEINE 800 MG/4 ML VIAL INHALATION SCH ×4 (07:23→20:11)
[2017-12-01] MEDS: IPRATROPIUM-ALBUTEROL 3 ML NEB INHALATION SCH ×4 (07:23→20:11)
[2017-12-01] MEDS ORDERED: CALCIUM CHLORIDE 1,000 MG in SODIUM CHLORIDE 0.9% 100 ML IVPB STA (07:37)
--- NOTE | 2017-12-01 07:59 | P.PN ---
Subjective Progress Note Date: 12/01/17 Principal diagnosis: Respiratory failure status post bypass grafting postop day #11 status post mitral valve repair, postop day #11 Progress note dated 11/29/2017 72-year-old male who is postop day #11, status post bypass grafting and mitral valve repair. He also has a history of shock, cardiomyopathy, diabetes mellitus , mitral regurgitation, history of remote nicotine dependence postoperative anemia diabetic retinopathy acute hepatocellular injury acute kidney injury ischemic colitis thrombocytopenia, chronic atrial fibrillation and hypoxemic respiratory failure. The patient currently is on the ventilator and the volume control plus mode. Vent settings include the assist control mode rate of 14, tidal volume 500 FiO2 35% PEEP of 5. PO2 was 149 pCO2 was 37 and pH of 7.46. The patient's currently not on any sedation. I switch him over to PSV of 13 CPAP of 5. Currently he is on IV Primacor 0.2 mics per kilogram per minute, insulin at 2.5 units an hour saline IV KVO and vital high protein at 42 with a goal of 42 mL an hour. The patient was admitted on the had a surgery on November 17 was extubated initially on the and reintubated on November 24. We did drop his FiO2 from 35-30% given a PaO2 of 149. Chest x-ray shows possible changes as well as a right-sided pleural effusion. Relatively small. Progress note dated 11/30/2017 72-year-old male postop day #12, status post bypass grafting and mitral valve repair. The patient also has a history of shock, cardiomyopathy, diabetes mellitus, mitral regurgitation, remote nicotine dependence, postoperative anemia , diabetic retinopathy, hepatocellular injury, acute kidney injury, ischemic colitis, thrombocytopenia, chronic atrial fibrillation and hypoxemic respiratory failure. The patient currently is on the ventilator. The mode is volume assist control with a rate of 14, tidal volume 500, FiO2 30% and PEEP of 5. On those settings, the blood gases show a PaO2 of 107 pCO2 of 34 and a pH of 7.49. The patient is receiving a saline IV at 10 mL an hour Primacor 0.2 g insulin at 3.5 units an hour and vital 1.2 at 62 with a goal of 62 mL an hour. The patient spent about 7 hours on PSV 13 and CPAP of 5 yesterday. We cannot extubate him because the patient had did not have a cuff leak. We did add Decadron to the regimen at 6 mg every 6 hours 4 doses. The chest x-ray stable. Her labs are stable. White count is 12.8 hemoglobin 8 hematocrit 24.2 platelet count 136,000. Sodium 146 potassium 3.8 chloride is 113 CO2 26 anion gap normal BUN and creatinine are 131 and 1.6. His mental status is still not great. He has open his eyes. His stare is blank. Doesn't really follow commands well. This may be the limiting factor in terms of him being extubated. Progress note dated 12/01/2017 72-year-old male, postoperative day #13, is post bypass grafting and mitral valve repair. The patient has a history of cardiomyopathy shock liver diabetes mellitus mitral regurgitation remote nicotine dependence postoperative anemia that retinopathy acute kidney injury ischemic colitis thrombocytopenia chronic atrial fibrillation and hypoxemic respiratory failure. I was able to extubate the patient yesterday. We had to extubate him to BiPAP therapy. In addition, the patient needed sedation in the form of dexmedetomidine. Subsequently, the patient developed hypotension. He had some fluid boluses and then he required norepinephrine at 3 mcg/m. Remains on Primacor 0.2 g, dexmedetomidine 0.6, and insulin at 1 unit per hour. His IV is dextrose half-normal saline at 50 mL an hour. His BiPAP settings included IPAP of 12, EPAP of 5 and 40%. He is still not really with it mentally. He does have a blank stare on his face. Seemed to respond minimally. I don't think this is she changed that much. Chest x-ray and Lyme panel shows a touch of fluid overload with some bibasilar atelectasis and small effusions. Objective - Vital Signs Vital signs: Vital Signs Temp 98.8 F 12/01/17 04:00 Pulse 78 12/01/17 07:38 Resp 23 12/01/17 07:00 BP 98/61 12/01/17 07:00 Pulse Ox 98 12/01/17 07:00 Intake & Output 11/30/17 12/01/17 12/01/17 18:59 06:59 18:59 Intake Total 559.461 527.357 Output Total 1010 1145 100 Balance -450.539 -617.643 -100 Weight 82.1 kg Intake: IV 336.6 293.5 KVO 270 275 Piperacillin-Tazobactam 3 50 12.5 .375 gm In Dextrose/Water 1 50ml.bag @ 12.5 mls/hr IVPB Q8HR [facility] Rx#: [id number] Pressure Bags 16.6 6 Intake, IV Titration 222.861 233.857 Amount Dexmedetomidine/0.9% NaCl 69.015 47.517 (Pmx) 400 mcg In Empty Bag 1 bag @ Titrate IV . Q0M [facility] Rx#:[id number] Dextrose 5%-0.45% NaCl 1, 50 000 ml @ 50 mls/hr IV . Q20H [facility] Rx#:[id number] Insulin Regular 100 unit 53.533 15.235 In Sodium Chloride 0.9% 100 ml @ Per Protocol IV .Q0M [facility] Rx#:[id number] Milrinone-D5w Pmx 20 mg 93.744 In Dextrose/Water 1 100ml .bag @ 0.2 MCG/KG/MIN 4. 66 mls/hr IV .[id number] [facility] Rx#:[id number] Norepinephrin 16 mg-0.9% 0.313 7.361 Ns Pmx 16 mg In 250 ml @ Titrate IV .Q0M [facility] Rx#: [id number] Sodium Chloride 0.9% 99 20 ml @ Per Protocol IV .Q0M JANNA with Vasopressin 20 unit Rx#:[id number] Sodium Ferric Gluconat- 100 Sucrose 125 mg In Sodium Chloride 0.9% 100 ml @ 100 mls/hr IVPB ONCE ONE Rx#:[id number] Output: Chest Tube Drainage 150 80 right pleural 150 80 Urine 860 1065 100 Other: Voiding Method Indwelling Catheter Indwelling Catheter ABP, PAP, CO, CI - Last Documented Arterial Blood Pressure 121/60 Pulmonary Artery Pressure 40/15 Cardiac Output 5.0 Cardiac Index 2.7 - Exam No acute distress, extubated, currently on BiPAP therapy. Mental status is still poor and my opinion. HEENT examination is grossly unremarkable. Mucous membranes are moist. Neck supple. Full range of motion. No adenopathy thyromegaly or neck vein distention. Cardiovascular examination reveals irregular rhythm rate. S1-S2 normal. No S3 or S4. No discernible murmur noted. Heart sounds are distant. Lungs reveal scattered diffuse rhonchi. Breath sounds equal. No crackles. No wheezes. Difficult to assess breath sounds is patient does not take deep breaths. Abdomen soft, bowel sounds are heard. No masses or tenderness. Extremities are intact. No cyanosis clubbing or edema. Skin is without rash or lesion. Neurologic examination is difficult to assess. - Labs CBC & Chem 7: 12/01/17 05:00 12/01/17 05:00 Labs: Abnormal Lab Results - Last 24 Hours (Table) 11/30/17 11/30/17 11/30/17 Range/Units 08:19 08:51 10:46 WBC (3.8-10.6) k/uL RBC (4.30-5.90) m/uL Hgb (13.0-17.5) gm/dL Hct (39.0-53.0) % RDW (11.5-15.5) % Plt Count (150-450) k/uL Neutrophils # (1.3-7.7) k/uL Lymphocytes # (1.0-4.8) k/uL ABG pH 7.46 H (7.35-7.45) ABG pO2 (83-108) mmHg ABG HCO3 (21-25) mmol/L ABG Total CO2 (19-24) mmol/L ABG O2 Saturation 97.9 H (94-97) % Sodium (137-145) mmol/L Chloride (98-107) mmol/L BUN (9-20) mg/dL Creatinine (0.66-1.25) mg/dL Glucose (74-99) mg/dL POC Glucose (mg/dL) 162 H 151 H (75-99) mg/dL Calcium (8.4-10.2) mg/dL Phosphorus (2.5-4.5) mg/dL Magnesium (1.6-2.3) mg/dL Total Bilirubin (0.2-1.3) mg/dL AST (17-59) U/L ALT (21-72) U/L Alkaline Phosphatase (38-126) U/L Total Protein (6.3-8.2) g/dL Albumin (3.5-5.0) g/dL 11/30/17 11/30/17 11/30/17 Range/Units 12:38 13:26 14:15 WBC (3.8-10.6) k/uL RBC (4.30-5.90) m/uL Hgb (13.0-17.5) gm/dL Hct (39.0-53.0) % RDW (11.5-15.5) % Plt Count (150-450) k/uL Neutrophils # (1.3-7.7) k/uL Lymphocytes # (1.0-4.8) k/uL ABG pH (7.35-7.45) ABG pO2 (83-108) mmHg ABG HCO3 (21-25) mmol/L ABG Total CO2 (19-24) mmol/L ABG O2 Saturation (94-97) % Sodium (137-145) mmol/L Chloride (98-107) mmol/L BUN (9-20) mg/dL Creatinine (0.66-1.25) mg/dL Glucose (74-99) mg/dL POC Glucose (mg/dL) 118 H 129 H 148 H (75-99) mg/dL Calcium (8.4-10.2) mg/dL Phosphorus (2.5-4.5) mg/dL Magnesium (1.6-2.3) mg/dL Total Bilirubin (0.2-1.3) mg/dL AST (17-59) U/L ALT (21-72) U/L Alkaline Phosphatase (38-126) U/L Total Protein (6.3-8.2) g/dL Albumin (3.5-5.0) g/dL 11/30/17 11/30/17 11/30/17 Range/Units 14:51 16:01 17:01 WBC (3.8-10.6) k/uL RBC (4.30-5.90) m/uL Hgb (13.0-17.5) gm/dL Hct (39.0-53.0) % RDW (11.5-15.5) % Plt Count (150-450) k/uL Neutrophils # (1.3-7.7) k/uL Lymphocytes # (1.0-4.8) k/uL ABG pH 7.47 H (7.35-7.45) ABG pO2 112 H (83-108) mmHg ABG HCO3 27 H (21-25) mmol/L ABG Total CO2 28 H (19-24) mmol/L ABG O2 Saturation 99.1 H (94-97) % Sodium (137-145) mmol/L Chloride (98-107) mmol/L BUN (9-20) mg/dL Creatinine (0.66-1.25) mg/dL Glucose (74-99) mg/dL POC Glucose (mg/dL) 156 H 153 H (75-99) mg/dL Calcium (8.4-10.2) mg/dL Phosphorus (2.5-4.5) mg/dL Magnesium (1.6-2.3) mg/dL Total Bilirubin (0.2-1.3) mg/dL AST (17-59) U/L ALT (21-72) U/L Alkaline Phosphatase (38-126) U/L Total Protein (6.3-8.2) g/dL Albumin (3.5-5.0) g/dL 11/30/17 11/30/17 11/30/17 Range/Units 18:14 19:56 22:00 WBC (3.8-10.6) k/uL RBC (4.30-5.90) m/uL Hgb (13.0-17.5) gm/dL Hct (39.0-53.0) % RDW (11.5-15.5) % Plt Count (150-450) k/uL Neutrophils # (1.3-7.7) k/uL Lymphocytes # (1.0-4.8) k/uL ABG pH (7.35-7.45) ABG pO2 (83-108) mmHg ABG HCO3 (21-25) mmol/L ABG Total CO2 (19-24) mmol/L ABG O2 Saturation (94-97) % Sodium (137-145) mmol/L Chloride (98-107) mmol/L BUN (9-20) mg/dL Creatinine (0.66-1.25) mg/dL Glucose (74-99) mg/dL POC Glucose (mg/dL) 143 H 136 H 134 H (75-99) mg/dL Calcium (8.4-10.2) mg/dL Phosphorus (2.5-4.5) mg/dL Magnesium (1.6-2.3) mg/dL Total Bilirubin (0.2-1.3) mg/dL AST (17-59) U/L ALT (21-72) U/L Alkaline Phosphatase (38-126) U/L Total Protein (6.3-8.2) g/dL Albumin (3.5-5.0) g/dL 12/01/17 12/01/17 12/01/17 Range/Units 00:57 02:11 04:12 WBC (3.8-10.6) k/uL RBC (4.30-5.90) m/uL Hgb (13.0-17.5) gm/dL Hct (39.0-53.0) % RDW (11.5-15.5) % Plt Count (150-450) k/uL Neutrophils # (1.3-7.7) k/uL Lymphocytes # (1.0-4.8) k/uL ABG pH (7.35-7.45) ABG pO2 (83-108) mmHg ABG HCO3 (21-25) mmol/L ABG Total CO2 (19-24) mmol/L ABG O2 Saturation (94-97) % Sodium (137-145) mmol/L Chloride (98-107) mmol/L BUN (9-20) mg/dL Creatinine (0.66-1.25) mg/dL Glucose (74-99) mg/dL POC Glucose (mg/dL) 136 H 149 H 146 H (75-99) mg/dL Calcium (8.4-10.2) mg/dL Phosphorus (2.5-4.5) mg/dL Magnesium (1.6-2.3) mg/dL Total Bilirubin (0.2-1.3) mg/dL AST (17-59) U/L ALT (21-72) U/L Alkaline Phosphatase (38-126) U/L Total Protein (6.3-8.2) g/dL Albumin (3.5-5.0) g/dL 12/01/17 12/01/17 12/01/17 Range/Units 05:00 05:00 06:04 WBC 13.7 H (3.8-10.6) k/uL RBC 2.75 L (4.30-5.90) m/uL Hgb 8.1 L (13.0-17.5) gm/dL Hct 25.0 L (39.0-53.0) % RDW 18.4 H (11.5-15.5) % Plt Count 138 L (150-450) k/uL Neutrophils # 12.4 H (1.3-7.7) k/uL Lymphocytes # 0.3 L (1.0-4.8) k/uL ABG pH (7.35-7.45) ABG pO2 (83-108) mmHg ABG HCO3 (21-25) mmol/L ABG Total CO2 (19-24) mmol/L ABG O2 Saturation (94-97) % Sodium 149 H (137-145) mmol/L Chloride 117 H (98-107) mmol/L BUN 126 H* (9-20) mg/dL Creatinine 1.60 H (0.66-1.25) mg/dL Glucose 133 H (74-99) mg/dL POC Glucose (mg/dL) 132 H (75-99) mg/dL Calcium 7.9 L (8.4-10.2) mg/dL Phosphorus 4.9 H (2.5-4.5) mg/dL Magnesium 2.5 H (1.6-2.3) mg/dL Total Bilirubin 3.5 H (0.2-1.3) mg/dL AST 93 H (17-59) U/L ALT 161 H (21-72) U/L Alkaline Phosphatase 183 H (38-126) U/L Total Protein 5.3 L (6.3-8.2) g/dL Albumin 2.3 L (3.5-5.0) g/dL Microbiology - Last 24 Hours (Table) 11/24/17 10:25 Blood Culture - Final Blood No Growth after 144 hours 11/24/17 10:51 Blood Culture - Final Blood No Growth after 144 hours Assessment and Plan Assessment: Assessment Status post bypass grafting, postop day #13 Postoperative ventilator management, with failure to wean, status post extubation to BiPAP therapy on 11/30/2017 Status post initial extubation on November 18 and reintubation on November 24. Postop day #13, status post mitral valve repair for mitral regurgitation Ischemic cardiomyopathy Type 2 diabetes mellitus History of kidney nicotine dependence Postoperative anemia Diabetic retinopathy Shock liver Acute kidney injury Ischemic colitis Thrombocytopenia Chronic atrial fibrillation Acute hypoxemic respiratory failure Plan: Plan dated 11/29/2017 The patient's labs and x-rays are all reviewed. Medications are reviewed. The patient will be switched over to pressure support of 13 and CPAP of 5. We'll drop the FiO2 down to 30%. I'll repeat a blood gas in one hour. The patient's chest x-ray shows a right-sided pleural effusion. The patient was initially extubated on November 18 and reintubated on November 24. The patient remains on IV Primacor insulin drip at KVO fluids and is being nourished vital high protein at goal. Blood gases are reasonable. PaO2 of 149 PaCO2 37 and a pH of 7.46. The patient's currently not on any sedation. We'll attempt to wean him if possible. White count is 17.4 hemoglobin 6.9 hematocrit 22.0 platelet count 106 ,000. Sodium is 147 potassium 3.8 chloride is 113 and CO2 is 26 BUN and creatinine are 131 and 1.0. AST 123 ALT 212 alkaline phosphatase 204. Total bilirubin is 3.7. Sputum from November showed Klebsiella oxytoca. Arterial blood gases will be repeated in one hour. The patient needs additional water flushes given the increasing sodium and chloride levels. Prognosis is guarded. Critical care time 38 minutes Plan dated 11/30/2017 The patient's labs and x-rays are reviewed. Chest x-ray remains very similar to yesterday's chest x-ray. The patient will be placed back on pressure support and CPAP. Would consider weaning parameters blood gas and a cuff leak. Yesterday, the patient did not have a cuff leak. We added Decadron 6 mg every 6 hours for 4 doses. The patient's medications are reviewed. I'm hoping that we can get the patient towards extubation here in either today or tomorrow. Additional recommendations and suggestions are forthcoming. Prognosis is guarded. The patient remains on appropriate medications. The case was discussed with cardiothoracic surgery. Critical care time 33 minutes Plan dated 12/01/2017 The patient's labs x-rays a medications are reviewed. Chest x-ray my opinion shows just some mild fluid overload with some bibasilar atelectasis and small effusions. The patient remains on a number of medications including Primacor, norepinephrine, Precedex, and insulin. The patient's mental status in my opinion is still poor. His white count is 13.7 hemoglobin 8.1 hematocrit 25.0 platelet count 138,000. Sodium 149 potassium 3.5 chloride 117 CO2 is 26 BUN and creatinine were 126 and 1.60. His liver enzymes are elevated at 93 and 161 respectively. This was for the AST and ALT. Bilirubin 3.5. Albumin 2.3. Sputum was positive back on November 24 for Klebsiella oxytoca medications are reviewed. Prognosis is guarded. Critical care time 34 minutes Time with Patient: Greater than 30
--- NOTE | 2017-12-01 08:05 | XR ---
EXAMINATION TYPE: XR chest 1V portable DATE OF EXAM: 12/01/2017 COMPARISON: 11/30/2017 INDICATION: Post cardiac surgery TECHNIQUE: Single frontal view of the chest is obtained. FINDINGS: The heart size is upper limits of normal. The pulmonary vasculature is normal. Mild infiltrate is at the left base, worsening from comparison. Some platelike atelectasis may be at the right base. Minimal effusions are not excluded. Endotracheal tube and nasogastric tube is been removed. Left central venous catheter remains in posit ion with the tip in the distal superior vena cava region. Right-sided chest tube remains present. No pneumothorax is evident. PICC line enters on the left tip in the distal superior vena cava region. IMPRESSION: 1. Developing left lower lobe infiltrate. Correlate for atypical pulmonary edema, pneumonia or atelec tasis. 2. Minimal effusions are not excluded. 3. Lines and catheters discussed above.
[2017-12-01] MEDS: POTASSIUM CHLORIDE 20 MEQ in WATER FOR INJECTION 1 100ML.BAG IVPB SCH ×2 (08:14→09:25)
[2017-12-01] MEDS: DEXTROSE 5% IN WATER 1,000 ML IV SCH (08:50)
[2017-12-01 09:15] LABS: Glucose,Whole Blood 131 mg/dL (75-99)
[2017-12-01] MEDS: DEXMEDETOMIDINE/0.9% NACL(PMX) 400 MCG in EMPTY BAG 1 BAG IV SCH (09:58)
--- NOTE | 2017-12-01 10:01 | P.PN ---
Subjective Patient is seen in follow-up for acute kidney injury. Creatinine was greater than 3 on admission and is stable 1.6 today. Patient underwent CABG and mitral valve repair this admission. Ejection fraction is 30-35%. Hemoglobin 6.9 on s/p pRBC transfusion - hgb 8.1 today. He is off vasopressors at this time. He is nonoliguric. Extubated 11/29. Sodium level 149 today. Vital signs are stable. General: The patient appeared well nourished and normally developed. HEENT: Head exam is unremarkable. Neck is without jugular venous distension. LUNGS: Breath sounds decreased. HEART: Rate and Rhythm are regular. First and second heart sounds normal. No murmurs, rubs or gallops. ABDOMEN: Abdominal exam reveals normal bowel sounds. Non-tender and non- distended. No evidence of peritonitis. EXTREMITITES: Trace edema. Objective - Vital Signs Vital signs: Vital Signs Temp 97.1 F L 12/01/17 08:00 Pulse 77 12/01/17 09:00 Resp 23 12/01/17 09:00 BP 96/52 12/01/17 09:00 Pulse Ox 98 12/01/17 09:00 Intake & Output 11/30/17 12/01/17 12/01/17 18:59 06:59 18:59 Intake Total 559.461 527.357 346 Output Total 1010 1145 365 Balance -450.539 -617.643 -19 Weight 82.1 kg Intake: IV 336.6 293.5 346 Calcium Chloride 1,000 mg 100 In Sodium Chloride 0.9% 100 ml @ 100 mls/hr IVPB ONCE [facility] Rx#:[id number] Dextrose 5% in Water 1, 50 000 ml @ 50 mls/hr IV . Q20H [facility] Rx#:[id number] KVO 270 275 40 Piperacillin-Tazobactam 3 50 12.5 50 .375 gm In Dextrose/Water 1 50ml.bag @ 12.5 mls/hr IVPB Q8HR [facility] Rx#: [id number] Potassium Chloride 20 meq 100 In Water For Injection 1 100ml.bag @ 50 mls/hr IVPB Q2H [facility] Rx#: [id number] Pressure Bags 16.6 6 6 Intake, IV Titration 222.861 233.857 Amount Dexmedetomidine/0.9% NaCl 69.015 47.517 (Pmx) 400 mcg In Empty Bag 1 bag @ Titrate IV . Q0M [facility] Rx#:[id number] Dextrose 5%-0.45% NaCl 1, 50 000 ml @ 50 mls/hr IV . Q20H [facility] Rx#:[id number] Insulin Regular 100 unit 53.533 15.235 In Sodium Chloride 0.9% 100 ml @ Per Protocol IV .Q0M [facility] Rx#:[id number] Milrinone-D5w Pmx 20 mg 93.744 In Dextrose/Water 1 100ml .bag @ 0.2 MCG/KG/MIN 4. 66 mls/hr IV .[id number] [facility] Rx#:[id number] Norepinephrin 16 mg-0.9% 0.313 7.361 Ns Pmx 16 mg In 250 ml @ Titrate IV .Q0M [facility] Rx#: [id number] Sodium Chloride 0.9% 99 20 ml @ Per Protocol IV .Q0M [facility] with Vasopressin 20 unit Rx#:[id number] Sodium Ferric Gluconat- 100 Sucrose 125 mg In Sodium Chloride 0.9% 100 ml @ 100 mls/hr IVPB ONCE ONE Rx#:[id number] Output: Chest Tube Drainage 150 80 0 right pleural 150 80 0 Urine 860 1065 365 Other: Voiding Method Indwelling Catheter Indwelling Catheter ABP, PAP, CO, CI - Last Documented Arterial Blood Pressure 120/53 Pulmonary Artery Pressure 40/15 Cardiac Output 5.0 Cardiac Index 2.7 - Labs CBC & Chem 7: 12/01/17 05:00 12/01/17 05:00 Labs: Abnormal Lab Results - Last 24 Hours (Table) 11/30/17 11/30/17 11/30/17 Range/Units 10:46 12:38 13:26 WBC (3.8-10.6) k/uL RBC (4.30-5.90) m/uL Hgb (13.0-17.5) gm/dL Hct (39.0-53.0) % RDW (11.5-15.5) % Plt Count (150-450) k/uL Neutrophils # (1.3-7.7) k/uL Lymphocytes # (1.0-4.8) k/uL ABG pH (7.35-7.45) ABG pO2 (83-108) mmHg ABG HCO3 (21-25) mmol/L ABG Total CO2 (19-24) mmol/L ABG O2 Saturation (94-97) % Sodium (137-145) mmol/L Chloride (98-107) mmol/L BUN (9-20) mg/dL Creatinine (0.66-1.25) mg/dL Glucose (74-99) mg/dL POC Glucose (mg/dL) 151 H 118 H 129 H (75-99) mg/dL Calcium (8.4-10.2) mg/dL Phosphorus (2.5-4.5) mg/dL Magnesium (1.6-2.3) mg/dL Total Bilirubin (0.2-1.3) mg/dL AST (17-59) U/L ALT (21-72) U/L Alkaline Phosphatase (38-126) U/L Total Protein (6.3-8.2) g/dL Albumin (3.5-5.0) g/dL 11/30/17 11/30/17 11/30/17 Range/Units 14:15 14:51 16:01 WBC (3.8-10.6) k/uL RBC (4.30-5.90) m/uL Hgb (13.0-17.5) gm/dL Hct (39.0-53.0) % RDW (11.5-15.5) % Plt Count (150-450) k/uL Neutrophils # (1.3-7.7) k/uL Lymphocytes # (1.0-4.8) k/uL ABG pH (7.35-7.45) ABG pO2 (83-108) mmHg ABG HCO3 (21-25) mmol/L ABG Total CO2 (19-24) mmol/L ABG O2 Saturation (94-97) % Sodium (137-145) mmol/L Chloride (98-107) mmol/L BUN (9-20) mg/dL Creatinine (0.66-1.25) mg/dL Glucose (74-99) mg/dL POC Glucose (mg/dL) 148 H 156 H 153 H (75-99) mg/dL Calcium (8.4-10.2) mg/dL Phosphorus (2.5-4.5) mg/dL Magnesium (1.6-2.3) mg/dL Total Bilirubin (0.2-1.3) mg/dL AST (17-59) U/L ALT (21-72) U/L Alkaline Phosphatase (38-126) U/L Total Protein (6.3-8.2) g/dL Albumin (3.5-5.0) g/dL 11/30/17 11/30/17 11/30/17 Range/Units 17:01 18:14 19:56 WBC (3.8-10.6) k/uL RBC (4.30-5.90) m/uL Hgb (13.0-17.5) gm/dL Hct (39.0-53.0) % RDW (11.5-15.5) % Plt Count (150-450) k/uL Neutrophils # (1.3-7.7) k/uL Lymphocytes # (1.0-4.8) k/uL ABG pH 7.47 H (7.35-7.45) ABG pO2 112 H (83-108) mmHg ABG HCO3 27 H (21-25) mmol/L ABG Total CO2 28 H (19-24) mmol/L ABG O2 Saturation 99.1 H (94-97) % Sodium (137-145) mmol/L Chloride (98-107) mmol/L BUN (9-20) mg/dL Creatinine (0.66-1.25) mg/dL Glucose (74-99) mg/dL POC Glucose (mg/dL) 143 H 136 H (75-99) mg/dL Calcium (8.4-10.2) mg/dL Phosphorus (2.5-4.5) mg/dL Magnesium (1.6-2.3) mg/dL Total Bilirubin (0.2-1.3) mg/dL AST (17-59) U/L ALT (21-72) U/L Alkaline Phosphatase (38-126) U/L Total Protein (6.3-8.2) g/dL Albumin (3.5-5.0) g/dL 11/30/17 12/01/17 12/01/17 Range/Units 22:00 00:57 02:11 WBC (3.8-10.6) k/uL RBC (4.30-5.90) m/uL Hgb (13.0-17.5) gm/dL Hct (39.0-53.0) % RDW (11.5-15.5) % Plt Count (150-450) k/uL Neutrophils # (1.3-7.7) k/uL Lymphocytes # (1.0-4.8) k/uL ABG pH (7.35-7.45) ABG pO2 (83-108) mmHg ABG HCO3 (21-25) mmol/L ABG Total CO2 (19-24) mmol/L ABG O2 Saturation (94-97) % Sodium (137-145) mmol/L Chloride (98-107) mmol/L BUN (9-20) mg/dL Creatinine (0.66-1.25) mg/dL Glucose (74-99) mg/dL POC Glucose (mg/dL) 134 H 136 H 149 H (75-99) mg/dL Calcium (8.4-10.2) mg/dL Phosphorus (2.5-4.5) mg/dL Magnesium (1.6-2.3) mg/dL Total Bilirubin (0.2-1.3) mg/dL AST (17-59) U/L ALT (21-72) U/L Alkaline Phosphatase (38-126) U/L Total Protein (6.3-8.2) g/dL Albumin (3.5-5.0) g/dL 12/01/17 12/01/17 12/01/17 Range/Units 04:12 05:00 05:00 WBC 13.7 H (3.8-10.6) k/uL RBC 2.75 L (4.30-5.90) m/uL Hgb 8.1 L (13.0-17.5) gm/dL Hct 25.0 L (39.0-53.0) % RDW 18.4 H (11.5-15.5) % Plt Count 138 L (150-450) k/uL Neutrophils # 12.4 H (1.3-7.7) k/uL Lymphocytes # 0.3 L (1.0-4.8) k/uL ABG pH (7.35-7.45) ABG pO2 (83-108) mmHg ABG HCO3 (21-25) mmol/L ABG Total CO2 (19-24) mmol/L ABG O2 Saturation (94-97) % Sodium 149 H (137-145) mmol/L Chloride 117 H (98-107) mmol/L BUN 126 H* (9-20) mg/dL Creatinine 1.60 H (0.66-1.25) mg/dL Glucose 133 H (74-99) mg/dL POC Glucose (mg/dL) 146 H (75-99) mg/dL Calcium 7.9 L (8.4-10.2) mg/dL Phosphorus 4.9 H (2.5-4.5) mg/dL Magnesium 2.5 H (1.6-2.3) mg/dL Total Bilirubin 3.5 H (0.2-1.3) mg/dL AST 93 H (17-59) U/L ALT 161 H (21-72) U/L Alkaline Phosphatase 183 H (38-126) U/L Total Protein 5.3 L (6.3-8.2) g/dL Albumin 2.3 L (3.5-5.0) g/dL 12/01/17 12/01/17 Range/Units 06:04 09:04 WBC (3.8-10.6) k/uL RBC (4.30-5.90) m/uL Hgb (13.0-17.5) gm/dL Hct (39.0-53.0) % RDW (11.5-15.5) % Plt Count (150-450) k/uL Neutrophils # (1.3-7.7) k/uL Lymphocytes # (1.0-4.8) k/uL ABG pH (7.35-7.45) ABG pO2 (83-108) mmHg ABG HCO3 (21-25) mmol/L ABG Total CO2 (19-24) mmol/L ABG O2 Saturation (94-97) % Sodium (137-145) mmol/L Chloride (98-107) mmol/L BUN (9-20) mg/dL Creatinine (0.66-1.25) mg/dL Glucose (74-99) mg/dL POC Glucose (mg/dL) 132 H 131 H (75-99) mg/dL Calcium (8.4-10.2) mg/dL Phosphorus (2.5-4.5) mg/dL Magnesium (1.6-2.3) mg/dL Total Bilirubin (0.2-1.3) mg/dL AST (17-59) U/L ALT (21-72) U/L Alkaline Phosphatase (38-126) U/L Total Protein (6.3-8.2) g/dL Albumin (3.5-5.0) g/dL Microbiology - Last 24 Hours (Table) 11/24/17 10:25 Blood Culture - Final Blood No Growth after 144 hours 11/24/17 10:51 Blood Culture - Final Blood No Growth after 144 hours Assessment and Plan Plan: Assessment: 1. Nonoliguric acute kidney injury secondary to ATN secondary to hemodynamic instability/post CABG. Renal function improved since admission with creatinine stable at 1.6 today. Baseline creatinine is 1. 2. Status post CABG and mitral valve repair. 3. Systolic CHF with ejection fraction of 30-35%. 4. Anemia status post blood transfusion this admission. Hgb 8.1 today. Severe iron deficiency noted. Status post 2 doses of IV iron. 5. Hypotension now off Levophed. Cortisol level 29. 6. Hypernatremia from lack of oral water intake. Expect improvement once oral intake initiated. Plan: Continue D5W at 50 mL an hour. Repeat sodium level this evening. Avoid nephrotoxins. Continue to monitor renal function and urine output.
--- NOTE | 2017-12-01 10:03 | P.PN ---
Subjective Progress Note Date: 12/01/17 Principal diagnosis: Triple-vessel coronary artery disease. Severe ischemic cardiomyopathy. Moderate mitral valve regurgitation. Mild tricuspid valve regurgitation. Diabetes mellitus with preoperative hemoglobin A1c 6.7%. Hyperlipidemia. Moderate to severe restrictive lung disease with preoperative FEV1 43% of predicted. Evidence of diffuse calcific coronary artery disease. 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 Previous tobacco dependence. POD #15 placement of preoperative intra-aortic balloon pump POD #14 quadruple coronary artery bypass grafting using the left internal mammary artery to the left anterior descending artery, reverse saphenous vein graft from the aorta to the diagonal artery, reverse saphenous vein graft from the aorta to the first obtuse marginal artery, reverse saphenous vein graft from the aorta to the posterior descending artery. Mitral valve repair using a complete ring annuloplasty with a 30 mm Kapoor IMR ring. Exclusion of the left atrial appendage using a 35 mm Atriclip. Intraoperative transesophageal echocardiogram and epi-aortic scanning. Intraoperative graft flow measurements using the Q.MEstim system. Post operative normocytic, normochromic anemia, an expected outcome of surgery. Postoperative thrombocytopenia, an expected outcome of surgery. Postoperative atrial fibrillation, an expected outcome of surgery. Postoperative elevated transaminases, an unexpected outcome of surgery, likely secondary to low flow state post surgery. Postoperative acute kidney injury, an unexpected outcome of surgery, likely secondary to low flow state post surgery. Postoperative acute metabolic acidosis, lactic acidosis, reintubation, an unexpected outcome. Postoperative cardiogenic shock, an unexpected outcome. The patient was extubated to BiPAP yesterday, currently on Precedex for sedation to keep him synchronous with the BiPAP. He is alert with a flat affect , he does follow some commands but becomes very to keep neck with much stimulation. He remains on Primacor at 0.2 mcg/kg/min, levo was restarted yesterday for hypotension but remains at a low-dose and is currently being weaned. CVP has been 11-17. His urine output was 95-290 ml/hr overnight. His BUN this morning is 126, creatinine has been 1.6 for the last 3 days. Liver enzymes continue to improve. Hemaglobin this morning is 8.1 from 8.0 transfusion of 1 unit packed red blood cells Wednesday. White blood cell count has increased 13.7 from 12.8, currently on zosyn with sputum culture growing Klebsiella oxytoca, platelet count has increased. Arterial blood gases are stable. He is currently in sinus rhythm with occasional PVCs with heart rate in the 70-80s. He remains critical, prognosis is guarded. His has been updated daily. Objective - Vital Signs Vital signs: Vital Signs Temp 98.8 F 12/01/17 04:00 Pulse 78 12/01/17 07:38 Resp 23 12/01/17 07:00 BP 98/61 12/01/17 07:00 Pulse Ox 98 12/01/17 07:00 Intake & Output 11/30/17 12/01/17 12/01/17 18:59 06:59 18:59 Intake Total 559.461 527.357 26 Output Total 1010 1145 300 Balance -450.539 -617.643 -274 Weight 82.1 kg Intake: IV 336.6 293.5 26 KVO 270 275 20 Piperacillin-Tazobactam 3 50 12.5 .375 gm In Dextrose/Water 1 50ml.bag @ 12.5 mls/hr IVPB Q8HR [facility] Rx#: [id number] Pressure Bags 16.6 6 6 Intake, IV Titration 222.861 233.857 Amount Dexmedetomidine/0.9% NaCl 69.015 47.517 (Pmx) 400 mcg In Empty Bag 1 bag @ Titrate IV . Q0M [facility] Rx#:[id number] Dextrose 5%-0.45% NaCl 1, 50 000 ml @ 50 mls/hr IV . Q20H [facility] Rx#:[id number] Insulin Regular 100 unit 53.533 15.235 In Sodium Chloride 0.9% 100 ml @ Per Protocol IV .Q0M [facility] Rx#:[id number] Milrinone-D5w Pmx 20 mg 93.744 In Dextrose/Water 1 100ml .bag @ 0.2 MCG/KG/MIN 4. 66 mls/hr IV .[id number] [facility] Rx#:[id number] Norepinephrin 16 mg-0.9% 0.313 7.361 Ns Pmx 16 mg In 250 ml @ Titrate IV .Q0M [facility] Rx#: [id number] Sodium Chloride 0.9% 99 20 ml @ Per Protocol IV .Q0M [facility] with Vasopressin 20 unit Rx#:[id number] Sodium Ferric Gluconat- 100 Sucrose 125 mg In Sodium Chloride 0.9% 100 ml @ 100 mls/hr IVPB ONCE ONE Rx#:[id number] Output: Chest Tube Drainage 150 80 right pleural 150 80 Urine 860 1065 300 Other: Voiding Method Indwelling Catheter Indwelling Catheter ABP, PAP, CO, CI - Last Documented Arterial Blood Pressure 121/60 Pulmonary Artery Pressure 40/15 Cardiac Output 5.0 Cardiac Index 2.7 - Constitutional General appearance: Present: no acute distress - Respiratory Details: Lungs sounds diminished bilaterally with scattered rhonchi. Respirations even, nonlabored on BiPAP, although patient does get tachypneic with a lot of stimulation. BiPAP settings FiO2 40%, IPAP 12, EPAP 5. Right pleural chest tube to continuous wall suction, 20 mL serous drainage in the last 8 hours, 200 mL in 24 hours. No air leaks present. - Cardiovascular Details: S1, S2 present. Regular rate and rhythm, sinus rhythm with occasional PVCs on telemetry. Sternum stable. A/V epicardial pacemaker wires present, grounded. Palpable peripheral pulses bilaterally. Bilateral lower extremity, scrotal edema present. Right radial arterial line, left brachial PICC line, left internal jugular triple-lumen central line present. CVP 11-17. Levo was restarted at a low-dose, currently off, Primacor continues at 0.02 mcg/kg/min. Heart hugger, antiembolism stockings, SCDs present. - Gastrointestinal Gastrointestinal Comment(s): Abdomen soft, nontender, nondistended. Active bowel sounds present 4 quadrants. - Genitourinary Genitourinary Comment(s): Fong present draining clear yellow urine. Output 95-290 ml/hr overnight. - Integumentary Integumentary Comment(s): Skin warm and dry. Sternal incision well approximated and covered with dry intact dressing. Left lower extremity EVH site well approximated. Stage II pressure ulcer to coccyx, covered by Optisol foam dressing. - Neurologic Neurologic Comment(s): Alert but with flat affect. Does follow some commands. - Musculoskeletal Musculoskeletal: Present: generalized weakness - Psychiatric Psychiatric Comment(s): Flat affect, not really participating in his care. Psychiatric: Present: A&O x's 3 - Allied health notes Allied health notes reviewed: nursing - Labs CBC & Chem 7: 12/01/17 05:00 12/01/17 05:00 Labs: Abnormal Lab Results - Last 24 Hours (Table) 11/30/17 11/30/17 11/30/17 Range/Units 08:51 10:46 12:38 WBC (3.8-10.6) k/uL RBC (4.30-5.90) m/uL Hgb (13.0-17.5) gm/dL Hct (39.0-53.0) % RDW (11.5-15.5) % Plt Count (150-450) k/uL Neutrophils # (1.3-7.7) k/uL Lymphocytes # (1.0-4.8) k/uL ABG pH 7.46 H (7.35-7.45) ABG pO2 (83-108) mmHg ABG HCO3 (21-25) mmol/L ABG Total CO2 (19-24) mmol/L ABG O2 Saturation 97.9 H (94-97) % Sodium (137-145) mmol/L Chloride (98-107) mmol/L BUN (9-20) mg/dL Creatinine (0.66-1.25) mg/dL Glucose (74-99) mg/dL POC Glucose (mg/dL) 151 H 118 H (75-99) mg/dL Calcium (8.4-10.2) mg/dL Phosphorus (2.5-4.5) mg/dL Magnesium (1.6-2.3) mg/dL Total Bilirubin (0.2-1.3) mg/dL AST (17-59) U/L ALT (21-72) U/L Alkaline Phosphatase (38-126) U/L Total Protein (6.3-8.2) g/dL Albumin (3.5-5.0) g/dL 11/30/17 11/30/17 11/30/17 Range/Units 13:26 14:15 14:51 WBC (3.8-10.6) k/uL RBC (4.30-5.90) m/uL Hgb (13.0-17.5) gm/dL Hct (39.0-53.0) % RDW (11.5-15.5) % Plt Count (150-450) k/uL Neutrophils # (1.3-7.7) k/uL Lymphocytes # (1.0-4.8) k/uL ABG pH (7.35-7.45) ABG pO2 (83-108) mmHg ABG HCO3 (21-25) mmol/L ABG Total CO2 (19-24) mmol/L ABG O2 Saturation (94-97) % Sodium (137-145) mmol/L Chloride (98-107) mmol/L BUN (9-20) mg/dL Creatinine (0.66-1.25) mg/dL Glucose (74-99) mg/dL POC Glucose (mg/dL) 129 H 148 H 156 H (75-99) mg/dL Calcium (8.4-10.2) mg/dL Phosphorus (2.5-4.5) mg/dL Magnesium (1.6-2.3) mg/dL Total Bilirubin (0.2-1.3) mg/dL AST (17-59) U/L ALT (21-72) U/L Alkaline Phosphatase (38-126) U/L Total Protein (6.3-8.2) g/dL Albumin (3.5-5.0) g/dL 11/30/17 11/30/17 11/30/17 Range/Units 16:01 17:01 18:14 WBC (3.8-10.6) k/uL RBC (4.30-5.90) m/uL Hgb (13.0-17.5) gm/dL Hct (39.0-53.0) % RDW (11.5-15.5) % Plt Count (150-450) k/uL Neutrophils # (1.3-7.7) k/uL Lymphocytes # (1.0-4.8) k/uL ABG pH 7.47 H (7.35-7.45) ABG pO2 112 H (83-108) mmHg ABG HCO3 27 H (21-25) mmol/L ABG Total CO2 28 H (19-24) mmol/L ABG O2 Saturation 99.1 H (94-97) % Sodium (137-145) mmol/L Chloride (98-107) mmol/L BUN (9-20) mg/dL Creatinine (0.66-1.25) mg/dL Glucose (74-99) mg/dL POC Glucose (mg/dL) 153 H 143 H (75-99) mg/dL Calcium (8.4-10.2) mg/dL Phosphorus (2.5-4.5) mg/dL Magnesium (1.6-2.3) mg/dL Total Bilirubin (0.2-1.3) mg/dL AST (17-59) U/L ALT (21-72) U/L Alkaline Phosphatase (38-126) U/L Total Protein (6.3-8.2) g/dL Albumin (3.5-5.0) g/dL 11/30/17 11/30/17 12/01/17 Range/Units 19:56 22:00 00:57 WBC (3.8-10.6) k/uL RBC (4.30-5.90) m/uL Hgb (13.0-17.5) gm/dL Hct (39.0-53.0) % RDW (11.5-15.5) % Plt Count (150-450) k/uL Neutrophils # (1.3-7.7) k/uL Lymphocytes # (1.0-4.8) k/uL ABG pH (7.35-7.45) ABG pO2 (83-108) mmHg ABG HCO3 (21-25) mmol/L ABG Total CO2 (19-24) mmol/L ABG O2 Saturation (94-97) % Sodium (137-145) mmol/L Chloride (98-107) mmol/L BUN (9-20) mg/dL Creatinine (0.66-1.25) mg/dL Glucose (74-99) mg/dL POC Glucose (mg/dL) 136 H 134 H 136 H (75-99) mg/dL Calcium (8.4-10.2) mg/dL Phosphorus (2.5-4.5) mg/dL Magnesium (1.6-2.3) mg/dL Total Bilirubin (0.2-1.3) mg/dL AST (17-59) U/L ALT (21-72) U/L Alkaline Phosphatase (38-126) U/L Total Protein (6.3-8.2) g/dL Albumin (3.5-5.0) g/dL 12/01/17 12/01/17 12/01/17 Range/Units 02:11 04:12 05:00 WBC 13.7 H (3.8-10.6) k/uL RBC 2.75 L (4.30-5.90) m/uL Hgb 8.1 L (13.0-17.5) gm/dL Hct 25.0 L (39.0-53.0) % RDW 18.4 H (11.5-15.5) % Plt Count 138 L (150-450) k/uL Neutrophils # 12.4 H (1.3-7.7) k/uL Lymphocytes # 0.3 L (1.0-4.8) k/uL ABG pH (7.35-7.45) ABG pO2 (83-108) mmHg ABG HCO3 (21-25) mmol/L ABG Total CO2 (19-24) mmol/L ABG O2 Saturation (94-97) % Sodium (137-145) mmol/L Chloride (98-107) mmol/L BUN (9-20) mg/dL Creatinine (0.66-1.25) mg/dL Glucose (74-99) mg/dL POC Glucose (mg/dL) 149 H 146 H (75-99) mg/dL Calcium (8.4-10.2) mg/dL Phosphorus (2.5-4.5) mg/dL Magnesium (1.6-2.3) mg/dL Total Bilirubin (0.2-1.3) mg/dL AST (17-59) U/L ALT (21-72) U/L Alkaline Phosphatase (38-126) U/L Total Protein (6.3-8.2) g/dL Albumin (3.5-5.0) g/dL 12/01/17 12/01/17 Range/Units 05:00 06:04 WBC (3.8-10.6) k/uL RBC (4.30-5.90) m/uL Hgb (13.0-17.5) gm/dL Hct (39.0-53.0) % RDW (11.5-15.5) % Plt Count (150-450) k/uL Neutrophils # (1.3-7.7) k/uL Lymphocytes # (1.0-4.8) k/uL ABG pH (7.35-7.45) ABG pO2 (83-108) mmHg ABG HCO3 (21-25) mmol/L ABG Total CO2 (19-24) mmol/L ABG O2 Saturation (94-97) % Sodium 149 H (137-145) mmol/L Chloride 117 H (98-107) mmol/L BUN 126 H* (9-20) mg/dL Creatinine 1.60 H (0.66-1.25) mg/dL Glucose 133 H (74-99) mg/dL POC Glucose (mg/dL) 132 H (75-99) mg/dL Calcium 7.9 L (8.4-10.2) mg/dL Phosphorus 4.9 H (2.5-4.5) mg/dL Magnesium 2.5 H (1.6-2.3) mg/dL Total Bilirubin 3.5 H (0.2-1.3) mg/dL AST 93 H (17-59) U/L ALT 161 H (21-72) U/L Alkaline Phosphatase 183 H (38-126) U/L Total Protein 5.3 L (6.3-8.2) g/dL Albumin 2.3 L (3.5-5.0) g/dL Microbiology - Last 24 Hours (Table) 11/24/17 10:25 Blood Culture - Final Blood No Growth after 144 hours 11/24/17 10:51 Blood Culture - Final Blood No Growth after 144 hours - Imaging and Cardiology Chest x-ray: report reviewed, image reviewed Assessment and Plan (1) Congestive heart failure with cardiomyopathy Current Visit: Yes Status: Chronic Code(s): I50.9 - HEART FAILURE, UNSPECIFIED; I42.9 - CARDIOMYOPATHY, UNSPECIFIED SNOMED Code(s): 00085028 (2) Ischemic cardiomyopathy Current Visit: Yes Status: Chronic Code(s): I25.5 - ISCHEMIC CARDIOMYOPATHY SNOMED Code(s): 841039029 (3) Coronary artery disease Current Visit: Yes Status: Chronic Code(s): I25.10 - ATHSCL HEART DISEASE OF [place] CORONARY ARTERY W/O ANG PCTRS SNOMED Code(s): 51373377 (4) Diabetes mellitus Current Visit: Yes Status: Chronic Code(s): E11.9 - TYPE 2 DIABETES MELLITUS WITHOUT COMPLICATIONS SNOMED Code(s): 67671327 (5) Hyperlipidemia Current Visit: Yes Status: Chronic Code(s): E78.5 - HYPERLIPIDEMIA, UNSPECIFIED SNOMED Code(s): 06474702 (6) Mitral regurgitation Current Visit: Yes Status: Chronic Code(s): I34.0 - NONRHEUMATIC MITRAL ( VALVE) INSUFFICIENCY SNOMED Code(s): 55298159 (7) History of myocardial infarction Current Visit: No Status: Resolved Code(s): I25.2 - OLD MYOCARDIAL INFARCTION SNOMED Code(s): 155883349 (8) Tobacco dependence in remission Current Visit: No Status: Resolved Code(s): F17.201 - NICOTINE DEPENDENCE, UNSPECIFIED, IN REMISSION SNOMED Code(s): 103012692 Plan: 1. Continue low-dose aspirin, Plavix, statin, subcu heparin. 2. No oral meds being given right now as patient is on BiPAP and not swallowing. We will attempt to place Dobbhoff tube. 3. Continue beta michelle. Lopressor being given IV push as patient is not swallowing oral meds. Will transition back to oral once Dobbhoff is placed. 4. Continue amiodarone for A. fib prophylaxis. 5. Continue Primacor at 0.2 mcg/kg/min. 6. Will restart tube feedings, with free water flushes once Dobbhoff was placed. 7. No nephrotoxic, hepatotoxic agents. 8. Keep Fong catheter for strict accurate intake and output. Fong catheter changed 11/27/17. 9. Will discontinue right pleural chest tube. 10. Will obtain peripheral IV access, discontinue triple-lumen central line. 11. BiPAP management, bronchodilators per pulmonology. 12. Continue Precedex to keep patient synchronous with the BiPAP. 13. Will monitor daily labs and x-rays. No further blood transfusion at this point. 14. Agree with Zosyn per pulmonology, sputum culture positive for Klebsiella oxytoca. Blood cultures, urine culture negative. 15. Pain control with current medication regimen. 16. GI/DVT prophylaxis. 17. Insulin drip/diabetic management per primary care service. 18. Continue full CODE STATUS. 19. Continued recommendations based on patient's progress. Time with Patient: Greater than 30
[2017-12-01] MEDS: hydrALAZINE HCL 25 MG TAB PO SCH ×2 (10:22→21:49)
[2017-12-01 10:54] LABS: Glucose,Whole Blood 138 mg/dL (75-99)
[2017-12-01] MEDS: PANTOPRAZOLE 40 MG/10 ML VIAL IVP SCH (12:21)
[2017-12-01 12:40] LABS: Glucose,Whole Blood 152 mg/dL (75-99)
--- NOTE | 2017-12-01 12:46 | P.PN ---
Subjective Progress Note Date: 12/01/17 This is a pleasant gentleman patient of Dr. Spann, newly established to the office to evaluate shortness of breath, dyspnea on exertion, underwent cardiac cath and found to have ischemic cardiomyopathy with severe LV dysfunction, triple-vessel disease prior to bypass surgery, admitted for bypass surgery and valve repair. He has underlying history of diabetes mellitus type 2, hyperlipidemia, Cardiac cath performed 11/09/2017 shows left main coronary up was calcified, circumflex 95% stenosis in the ostial portion, LAD totally occluded just of to the origin of the large diagonal branch, diagonal branch from the percent stenosis, 70% stenosis in the PDA and PLV severe left ventricle systolic dysfunction and mitral regurgitation He is currently in ICU being prepped for CABG and mitral valve repair on 2017 and has intra-aortic balloon pump done through the right femoral artery. 11/17: Patient is having open-heart surgery today. 11/18: Patient is status post quadruple coronary artery bypass grafting using the left internal mammary artery to the left anterior descending coronary artery, a reverse greater saphenous vein graft from the aorta to the diagonal coronary artery, reverse greater saphenous vein graft from the aorta to the first obtuse marginal coronary artery, a reverse greater saphenous vein graft from the aorta to the posterior descending coronary artery and mitral valve repair. Patient remains in the intensive care unit intubated and on mechanical ventilation currently on CPAP for weaning parameters. He continues to have intra-aortic balloon pump in place which is plan to keep for 1 more day. He has a right, left and mediastinal chest tubes in place draining serosanguineous fluid. Urine output is 50-60 mL per hour. He is also on vasopressors. Hemoglobin A1c is 6.7. 8: Patient remains in the intensive care unit. He is currently off oxygen and pulse oxing. He continues to have all [address] Balloon pump was removed. Urine output has been adequate. White count is normal. Hemoglobin 7.3, INR 1.5, creatinine 0.93, blood sugars are running between 104 and 127. He has been afebrile. Heart rate running in the 90s. Blood pressure is stable with current vasopressors. Pulse ox is 9700% on room air. Patient denies having any chest pain. No abdominal pain. No nausea. 8/4. Patient examined the bedside in the ICU. Currently off oxygen. He is not making enough urine output. Creatinine function has worsened from 0.8-1.2. Hemoglobin 7 this morning status post transfusion 1 unit PRBC. Patient is denies any chest pain, shortness of breath is resting comfortably in the chair. He still continues to have [address] with a AARON drain. Blood sugar between 100-125. 11/21 patient examined bedside in the ICU. Brief episode of atrial fibrillation last night and one dose of IV amiodarone given followed by a maintenance dose Afinitor on 400 mg twice a day. Creatinine increased to 1.8 today. Patient is having minimal urine output with less than 10 mL per hour. Patient may benefit from IV fluids as he has minimal oral intake and has minimal urine output. One bag of 250 mg abdomen given today. Patient received 2 units of PRBCs C yesterday. No bowel movements for the past 3 days. Patient is passing gas. Continue with bowel regimen 11/22: Patient hasn't been noted to have increasing renal numbers with BUN of 66 and creatinine 2.2 and nephrology has been consult did. Patient is also noted to have low urine output and dark urine. He is not eating very much. Patient is more lethargic today. He denies any abdominal pain. Heart rate is controlled in a sinus rhythm. He is currently on oral amiodarone and Lopressor for atrial fibrillation. No anticoagulation due to thrombocytopenia. He is currently off label fed but continued on Primacor. 11/23: Patient has been seen by hematology for thrombocytopenia secondary to shock liver and consumption. Fibrinogen to be checked. Patient be transfused if platelet count is less than 50,000. One dose of vitamin K was given for INR of 1.8 yesterday. INR today is at 2.5, platelet count 41. BUN 89, creatinine 2.30, AST 1470, ALT 721. Urinalysis is turbid, leukoesterase moderate, RBCs greater than 182, wbc's 37, Patient has also been seen by nephrology for acute kidney injury, acute tubular necrosis, oliguria. Recommendations to transfuse if hemoglobin is falls below 7.4 fluid bolus was attempted without improvement and patient was started on Lasix drip. Patient is also continued on Primacor. Urine output has been 35-75 mL per hour. Heart rate has been elevated in the low 100s. Patient has received calcium chloride 1 dose yesterday and repeat today. He was started on Midodrine 10 mg 3 times daily yesterday. He is more lethargic today. He has failed a swallow eval and speech therapy added. Patient has been started on Zoloft for depression but patient appears to be more acute delirium. Patient has been on and off norepinephrine as his blood pressures dropping into the 80 systolic when he sleeps. 11/24: Lasix drip has been discontinued. Patient has received 4 A of bicarbonate is on a bicarb drip. Patient is on levofed and vasopressin along with Primacor. He has received vitamin K and fresh frozen plasma. Urine output is 15-20 mL per hour. Central line was placed today requiring of fresh frozen plasma and vitamin K. There is concern for need of hemodialysis. Patient has diarrhea after having constipation and fecal management system has been placed. His mental status continued to decline yesterday and by this morning he was re -intubated. White count is increasing to 18.5, hemoglobin 7.1, platelet count 48. INR is 2.9, BUN 103, creatinine 3.17, phosphorus 7.5, magnesium 2.7, AST 1301, ALT 623. Total bilirubin is 5.8. Cortisol level was greater than 123. Patient will be resumed back on insulin drip due to hyperglycemia. Echocardiogram reveals EF of 40-45%, mild concentric left ventricular hypertrophy, and only mild gently dilated 34-39, moderate mitral stenosis, mild tricuspid regurgitation, mild pulmonary hypertension 11/25: Patient remains intubated and on mechanical ventilation. We resumed insulin drip yesterday. He remains on Levophed and milrinone. Renal function remains poor. 11/26: Patient remains in the intensive care unit, intubated and on mechanical ventilation. Patient has had good urine output. He remains on vasopressin, norepinephrine, insulin drip. BUN is 114 and creatinine 2.2, phosphorus 4.5, white count 14.6. Hemoglobin is 7. There are no orders for transfusion. INR is 1.7. Liver function tests are improving. Sputum culture showing gram- negative bacilli. 11/27: Patient continued to be intubated does not follow commands. Patient has developed atrial fibrillation and heart rate is currently controlled. Patient continued to require levo fed infusion at 6 mics per Per minute 11/28:Patient continued to be distended does not follow commands. Patient has developed atrial fibrillation and heart rate is currently controlled. Patient was following commands by squeezing his hand this morning but currently is off sedation but still not following commands patient is moving his head to the right than to the left spontaneously and currently still on full vent support 11/29: Patient remains intubated and on mechanical ventilation. He is currently being CPAP. He has been off vasopressors since over the weekend. He is also off midodrine. Patient started on hydralazine. He is more alert and able to squeeze his hands with direction. Left is noted to be stronger than the right. He has continued on Primacor and insulin. We have ordered one dose of Ferrlecit and he is scheduled for transfusion 1 unit of packed RBCs for hemoglobin of 6.9. Liver function tests are improving. BUN is 131 and creatinine 1.6. 11/30: Patient remains in intensive care unit intubated and on mechanical ventilation. He continues to be off vasopressors. He remains on Primacor. Urine output has been between 45 and 150 mL per hour. BUN 131 and creatinine 1.6. White count is down to 12.8, hemoglobin is now 8 after 1 unit of packed RBCs and he received Ferrlecit yesterday. White blood count is recovering now at 136. Liver function tests are all improving as well. Overall, patient is showing slow gradual improvement. Another dose of Ferrlecit has been ordered by nephrology. 12/01: Patient has been successfully extubated yesterday and now on BiPAP. Patient is currently on Precedex. He was placed on low-dose label fed and is currently being weaned. Central line and chest tube on the right to be removed today. White count is 13.7, hemoglobin 8.1, BUN 126 and creatinine 1.6. Capillary blood glucose running between 132 and 152. Her function tests continue to improve. Objective - Vital Signs Vital signs: Vital Signs Temp 98.8 F 12/01/17 04:00 Pulse 78 12/01/17 07:38 Resp 23 12/01/17 07:00 BP 98/61 12/01/17 07:00 Pulse Ox 98 12/01/17 07:00 Intake & Output 11/30/17 12/01/17 12/01/17 18:59 06:59 18:59 Intake Total 559.461 527.357 26 Output Total 1010 1145 300 Balance -450.539 -617.643 -274 Weight 82.1 kg Intake: IV 336.6 293.5 26 KVO 270 275 20 Piperacillin-Tazobactam 3 50 12.5 .375 gm In Dextrose/Water 1 50ml.bag @ 12.5 mls/hr IVPB Q8HR [facility] Rx#: [id number] Pressure Bags 16.6 6 6 Intake, IV Titration 222.861 233.857 Amount Dexmedetomidine/0.9% NaCl 69.015 47.517 (Pmx) 400 mcg In Empty Bag 1 bag @ Titrate IV . Q0M [facility] Rx#:[id number] Dextrose 5%-0.45% NaCl 1, 50 000 ml @ 50 mls/hr IV . Q20H [facility] Rx#:[id number] Insulin Regular 100 unit 53.533 15.235 In Sodium Chloride 0.9% 100 ml @ Per Protocol IV .Q0M [facility] Rx#:[id number] Milrinone-D5w Pmx 20 mg 93.744 In Dextrose/Water 1 100ml .bag @ 0.2 MCG/KG/MIN 4. 66 mls/hr IV .[id number] [facility] Rx#:[id number] Norepinephrin 16 mg-0.9% 0.313 7.361 Ns Pmx 16 mg In 250 ml @ Titrate IV .Q0M [facility] Rx#: [id number] Sodium Chloride 0.9% 99 20 ml @ Per Protocol IV .Q0M [facility] with Vasopressin 20 unit Rx#:[id number] Sodium Ferric Gluconat- 100 Sucrose 125 mg In Sodium Chloride 0.9% 100 ml @ 100 mls/hr IVPB ONCE ONE Rx#:[id number] Output: Chest Tube Drainage 150 80 right pleural 150 80 Urine 860 1065 300 Other: Voiding Method Indwelling Catheter Indwelling Catheter ABP, PAP, CO, CI - Last Documented Arterial Blood Pressure 121/60 Pulmonary Artery Pressure 40/15 Cardiac Output 5.0 Cardiac Index 2.7 - Exam General appearance: average body habitus, cooperative, no acute distress - EENT Eyes: anicteric sclerae, EOMI, PERRLA, dentition normal, normal appearance no vision in the left eye blurring of the cornea with spelling ENT: NA/AT, normal oropharynx, intubated and on mechanical ventilation - Respiratory Respiratory: bilateral: CTA, negative: diminished, dullness, rales, rhonchi, wheezing, continues to have right pleural, left pleural chest tubes in place. - Cardiovascular Rhythm: Regularly irregular Heart sounds: normal: S1, S2 Abnormal Heart Sounds: no systolic murmur, no diastolic murmur, no rub, no S3 Gallop, no S4 Gallop, no click, no other - Gastrointestinal General gastrointestinal: normal bowel sounds, soft, Fong draining clear dark urine - Integumentary Integumentary: normal, normal turgor - Neurologic Neurologic: He will follow a few simple commands - Musculoskeletal Musculoskeletal: gait not assessed - Labs CBC & Chem 7: 12/01/17 05:00 12/01/17 05:00 Labs: Abnormal Lab Results - Last 24 Hours (Table) 11/30/17 11/30/17 11/30/17 Range/Units 10:46 12:38 13:26 WBC (3.8-10.6) k/uL RBC (4.30-5.90) m/uL Hgb (13.0-17.5) gm/dL Hct (39.0-53.0) % RDW (11.5-15.5) % Plt Count (150-450) k/uL Neutrophils # (1.3-7.7) k/uL Lymphocytes # (1.0-4.8) k/uL ABG pH (7.35-7.45) ABG pO2 (83-108) mmHg ABG HCO3 (21-25) mmol/L ABG Total CO2 (19-24) mmol/L ABG O2 Saturation (94-97) % Sodium (137-145) mmol/L Chloride (98-107) mmol/L BUN (9-20) mg/dL Creatinine (0.66-1.25) mg/dL Glucose (74-99) mg/dL POC Glucose (mg/dL) 151 H 118 H 129 H (75-99) mg/dL Calcium (8.4-10.2) mg/dL Phosphorus (2.5-4.5) mg/dL Magnesium (1.6-2.3) mg/dL Total Bilirubin (0.2-1.3) mg/dL AST (17-59) U/L ALT (21-72) U/L Alkaline Phosphatase (38-126) U/L Total Protein (6.3-8.2) g/dL Albumin (3.5-5.0) g/dL 11/30/17 11/30/17 11/30/17 Range/Units 14:15 14:51 16:01 WBC (3.8-10.6) k/uL RBC (4.30-5.90) m/uL Hgb (13.0-17.5) gm/dL Hct (39.0-53.0) % RDW (11.5-15.5) % Plt Count (150-450) k/uL Neutrophils # (1.3-7.7) k/uL Lymphocytes # (1.0-4.8) k/uL ABG pH (7.35-7.45) ABG pO2 (83-108) mmHg ABG HCO3 (21-25) mmol/L ABG Total CO2 (19-24) mmol/L ABG O2 Saturation (94-97) % Sodium (137-145) mmol/L Chloride (98-107) mmol/L BUN (9-20) mg/dL Creatinine (0.66-1.25) mg/dL Glucose (74-99) mg/dL POC Glucose (mg/dL) 148 H 156 H 153 H (75-99) mg/dL Calcium (8.4-10.2) mg/dL Phosphorus (2.5-4.5) mg/dL Magnesium (1.6-2.3) mg/dL Total Bilirubin (0.2-1.3) mg/dL AST (17-59) U/L ALT (21-72) U/L Alkaline Phosphatase (38-126) U/L Total Protein (6.3-8.2) g/dL Albumin (3.5-5.0) g/dL 11/30/17 11/30/17 11/30/17 Range/Units 17:01 18:14 19:56 WBC (3.8-10.6) k/uL RBC (4.30-5.90) m/uL Hgb (13.0-17.5) gm/dL Hct (39.0-53.0) % RDW (11.5-15.5) % Plt Count (150-450) k/uL Neutrophils # (1.3-7.7) k/uL Lymphocytes # (1.0-4.8) k/uL ABG pH 7.47 H (7.35-7.45) ABG pO2 112 H (83-108) mmHg ABG HCO3 27 H (21-25) mmol/L ABG Total CO2 28 H (19-24) mmol/L ABG O2 Saturation 99.1 H (94-97) % Sodium (137-145) mmol/L Chloride (98-107) mmol/L BUN (9-20) mg/dL Creatinine (0.66-1.25) mg/dL Glucose (74-99) mg/dL POC Glucose (mg/dL) 143 H 136 H (75-99) mg/dL Calcium (8.4-10.2) mg/dL Phosphorus (2.5-4.5) mg/dL Magnesium (1.6-2.3) mg/dL Total Bilirubin (0.2-1.3) mg/dL AST (17-59) U/L ALT (21-72) U/L Alkaline Phosphatase (38-126) U/L Total Protein (6.3-8.2) g/dL Albumin (3.5-5.0) g/dL 11/30/17 12/01/17 12/01/17 Range/Units 22:00 00:57 02:11 WBC (3.8-10.6) k/uL RBC (4.30-5.90) m/uL Hgb (13.0-17.5) gm/dL Hct (39.0-53.0) % RDW (11.5-15.5) % Plt Count (150-450) k/uL Neutrophils # (1.3-7.7) k/uL Lymphocytes # (1.0-4.8) k/uL ABG pH (7.35-7.45) ABG pO2 (83-108) mmHg ABG HCO3 (21-25) mmol/L ABG Total CO2 (19-24) mmol/L ABG O2 Saturation (94-97) % Sodium (137-145) mmol/L Chloride (98-107) mmol/L BUN (9-20) mg/dL Creatinine (0.66-1.25) mg/dL Glucose (74-99) mg/dL POC Glucose (mg/dL) 134 H 136 H 149 H (75-99) mg/dL Calcium (8.4-10.2) mg/dL Phosphorus (2.5-4.5) mg/dL Magnesium (1.6-2.3) mg/dL Total Bilirubin (0.2-1.3) mg/dL AST (17-59) U/L ALT (21-72) U/L Alkaline Phosphatase (38-126) U/L Total Protein (6.3-8.2) g/dL Albumin (3.5-5.0) g/dL 12/01/17 12/01/17 12/01/17 Range/Units 04:12 05:00 05:00 WBC 13.7 H (3.8-10.6) k/uL RBC 2.75 L (4.30-5.90) m/uL Hgb 8.1 L (13.0-17.5) gm/dL Hct 25.0 L (39.0-53.0) % RDW 18.4 H (11.5-15.5) % Plt Count 138 L (150-450) k/uL Neutrophils # 12.4 H (1.3-7.7) k/uL Lymphocytes # 0.3 L (1.0-4.8) k/uL ABG pH (7.35-7.45) ABG pO2 (83-108) mmHg ABG HCO3 (21-25) mmol/L ABG Total CO2 (19-24) mmol/L ABG O2 Saturation (94-97) % Sodium 149 H (137-145) mmol/L Chloride 117 H (98-107) mmol/L BUN 126 H* (9-20) mg/dL Creatinine 1.60 H (0.66-1.25) mg/dL Glucose 133 H (74-99) mg/dL POC Glucose (mg/dL) 146 H (75-99) mg/dL Calcium 7.9 L (8.4-10.2) mg/dL Phosphorus 4.9 H (2.5-4.5) mg/dL Magnesium 2.5 H (1.6-2.3) mg/dL Total Bilirubin 3.5 H (0.2-1.3) mg/dL AST 93 H (17-59) U/L ALT 161 H (21-72) U/L Alkaline Phosphatase 183 H (38-126) U/L Total Protein 5.3 L (6.3-8.2) g/dL Albumin 2.3 L (3.5-5.0) g/dL 12/01/17 Range/Units 06:04 WBC (3.8-10.6) k/uL RBC (4.30-5.90) m/uL Hgb (13.0-17.5) gm/dL Hct (39.0-53.0) % RDW (11.5-15.5) % Plt Count (150-450) k/uL Neutrophils # (1.3-7.7) k/uL Lymphocytes # (1.0-4.8) k/uL ABG pH (7.35-7.45) ABG pO2 (83-108) mmHg ABG HCO3 (21-25) mmol/L ABG Total CO2 (19-24) mmol/L ABG O2 Saturation (94-97) % Sodium (137-145) mmol/L Chloride (98-107) mmol/L BUN (9-20) mg/dL Creatinine (0.66-1.25) mg/dL Glucose (74-99) mg/dL POC Glucose (mg/dL) 132 H (75-99) mg/dL Calcium (8.4-10.2) mg/dL Phosphorus (2.5-4.5) mg/dL Magnesium (1.6-2.3) mg/dL Total Bilirubin (0.2-1.3) mg/dL AST (17-59) U/L ALT (21-72) U/L Alkaline Phosphatase (38-126) U/L Total Protein (6.3-8.2) g/dL Albumin (3.5-5.0) g/dL Microbiology - Last 24 Hours (Table) 11/24/17 10:25 Blood Culture - Final Blood No Growth after 144 hours 11/24/17 10:51 Blood Culture - Final Blood No Growth after 144 hours Assessment and Plan Plan: (1) Coronary artery disease and moderate mitral valve regurgitation Triple vessel disease noted on cardiac cath agent status post CABG and mitral valve repair on all 11/17/2017. Continue on aspirin, metoprolol. ICU palletizer Dr. Paul/Delonte on consult. Continue current management per cardio vascular surgery team (2) Ischemic cardiomyopathy Has impaired ejection fraction of 38%, along with congestive heart failure. (3) Congestive heart failure with cardiomyopathy Acute on chronic systolic and diastolic heart failure (4) Hyperlipidemia Patient currently not on statins (5) GI prophylaxis (6) DVT prophylaxis (7) Steal syndrome, subclavian Carotid Dopplers 11/10/2017 shows no carotid stenosis however there is to and fro flow within the right vertebral artery could reflect manifestation of subclavian steal physiology prior to with continuous flow reversal. Currently asymptomatic continue to monitor (8) Pulmonary hypertension PILAR on 11/10/2017, moderate pulmonary hypertension also shows intact atrial septum with no evidence of [id number] shunt physiology, unable to locate pressures for right ventricular systolic 9. Thrombocytopenia secondary to consumption. Numbers improved and patient has been resumed back on aspirin, Plavix. Consult with oncology appreciated. Recommendations for platelet transfusion if less than 50,000. 10. Anemia, secondary to a combination of acute blood loss and renal failure with drop in hemoglobin from 10-6.5. Patient is status post multiple blood products. Ferrlecit infusion. 11. Acute kidney injury, acute tubular necrosis, oliguric secondary to hypotension, hypoperfusion. Consult with nephrology appreciated. Off Lasix drip. Status post IV sodium bicarb and. 12. Post op atrial fibrillation, expected outcome of surgery. Patient has been on amiodarone and Lopressor. 13. Liver transaminitis and coagulopathy secondary to shock liver oncology consult appreciated. Continue to monitor closely. Statin resumed. 14. Depression, situational. Zoloft was subsequently discontinued. 15. Acute delirium secondary to acute illness. 16. Hyperglycemia without diabetes. Patient resumed on insulin drip. Hemoglobin A1c is 6.7. 17. Cardiorenal syndrome and cardiogenic shock requiring IV vasopressors. Vasopressors have been discontinued. 18. Diarrhea with possible acute GI bleed with acute blood loss anemia. Fecal management system was required. Stool for occult blood is positive. C diff toxin is negative 19. Acute hypoxic respiratory failure requiring reintubation and mechanical ventilation subsequently extubated. Discharge plan: To be determined Impression and plan of care have been directed as dictated by the signing physician. Amy Renteria nurse practitioner acting as scribe for signing physician.
--- NOTE | 2017-12-01 13:09 | P.CONS ---
History of Present Illness - Reason for Consult Consult date: 12/01/17 Endoscopic insertion of Dobbhoff nasoduodenal feeding tube Requesting physician: Jacob Rae - History of Present Illness 72-year-old gentleman status post CABG x4, mitral valve repair postoperative day #15 with underlying history of severe ischemic cardiomyopathy, triple- vessel CAD, diabetes, postoperative ischemic hepatitis thrombocytopenia, and atrial fibrillation. Consult requested for endoscopic placement of Dobbhoff feeding tube. Patient has been intubated and extubated twice; last extubation 2 days ago. Patient is unable to tolerate diet on his own; unable to meet his nutritional needs. There was concern for respiratory decompensation if Dobbhoff was inserted at bedside therefore GI was consulted for endoscopic placement. Presently off pressors receiving Primacor. White count 13.7. Hemoglobin 8.1. Platelet 138. INR 1.2. Review of Systems Unable to assess secondary to patient's poor mental status. Medical records reviewed.Constitutional: Denies fever, chills, sweats, weight gain, or loss. HEENT: Negative for migraines, blurred vision or loss, earaches, drainage, tinnitus, oral mucosal lesions, dysphagia, or odynophagia. Cardiac: Negative for chest pain, arrhythmias, or palpitation. Respiratory: Admitted with shortness of breath, denies hemoptysis, cough, or sputum production. Gastrointestinal: See HPI for pertinent findings. Genitourinary: Negative for hematuria, urgency, frequency, polyuria, dysuria, or penile discharge. Musculoskeletal: Negative for muscle aches, swelling, arthritis, and arthralgias. Neurologic: Negative for stroke or TIA. Endocrine: Negative for thyroid problems. Skin: Negative for rash or itching. Psychiatric: Negative history for depression and anxiety Past Medical History Past Medical History: Coronary Artery Disease (CAD), Heart Failure, Diabetes Mellitus, Hyperlipidemia, Myocardial Infarction ([place]) Additional Past Medical History / Comment(s): mitral valve regurgitation Last Myocardial Infarction Date:: PER ECHO POSS UNKNOWN DATE -[place] History of Any Multi-Drug Resistant Organisms: None Reported Past Surgical History: Heart Catheterization, Orthopedic Surgery Additional Past Surgical History / Comment(s): CORNEAL GRAFT LEFT EYE, LITHOTRIPSY , LEFT KNEE SURGERY-ARTHROSCOPIC Past Anesthesia/Blood Transfusion Reactions: No Reported Reaction Additional Past Anesthesia/Blood Transfusion Reaction / Comm: no hx of blood transfusion Smoking Status: Former smoker - Past Family History Mother History Unknown: Yes ( at age 86 secondary to traumatic brain concussion bleed) Family Medical History: No Reported History Father Family Medical History: Coronary Artery Disease (CAD) ( at 83) Brother(s) Family Medical History: No Reported History Sister(s) Family Medical History: No Reported History (One brother one sister healthy no children) Medications and Allergies Home Medications Medication Instructions Recorded Confirmed Type Atorvastatin [Lipitor] 40 mg PO HS 11/03/17 11/16/17 History Erythromycin Ophth Oint [Romycin 1 applic LEFT EYE HS 11/03/17 11/16/17 History Ophth Oint] Gatifloxacin/Prednisolone 1 drop LEFT EYE HS 11/03/17 11/16/17 History [prednisoLONE 1%-Gatiflox 0.5%] Glucosamine/MSM/Chrond/D3/Bosw 1 tab PO DAILY 11/03/17 11/16/17 History [Brlhtsitzjp-Brsftn-JBT-D3 Cplt] Lisinopril [Zestril] 5 mg PO DAILY@1500 11/03/17 11/16/17 History Multivitamin [Men's Multi-Vitamin] 1 tab PO DAILY 11/03/17 11/16/17 History Naproxen Sodium [Aleve] 440 mg PO DAILY 11/03/17 11/16/17 History diphenhydrAMINE [Benadryl] 25 mg PO DAILY PRN 11/03/17 11/16/17 History Furosemide [Lasix] 40 mg PO DAILY #30 tablet 11/09/17 11/16/17 Rx Metoprolol Succinate (ER) [Toprol 50 mg PO DAILY@1500 11/15/17 11/16/17 History Xl] Mupirocin 2% Nasal Oint [Bactroban 1 applic NASAL BID 11/15/17 11/16/17 History 2% Nasal Oint] metFORMIN HCL 1,000 mg PO W/SUPPER 11/15/17 11/16/17 History metFORMIN HCL [Glucophage] 500 mg PO BID 11/15/17 11/16/17 History Allergies Allergy/AdvReac Type Severity Reaction Status Date / Time clindamycin Allergy Rash/Hives Verified 11/16/17 10:28 Physical Exam Vitals: Vital Signs Temp Pulse Resp BP Pulse Ox 12/01/17 12:00 96.8 F L 79 24 98/52 99 12/01/17 11:02 74 12/01/17 11:00 75 24 98/53 99 12/01/17 10:48 72 12/01/17 10:00 77 24 98/53 97 12/01/17 09:00 77 23 96/52 98 12/01/17 08:00 97.1 F L 79 24 119/72 99 12/01/17 07:38 78 12/01/17 07:24 77 12/01/17 07:00 77 23 98/61 98 12/01/17 06:00 78 22 112/62 99 12/01/17 05:00 80 23 108/60 99 12/01/17 04:00 98.8 F 81 23 105/61 98 12/01/17 03:00 81 23 97/52 98 12/01/17 02:00 79 23 104/57 97 12/01/17 01:00 87 33 H 103/62 99 12/01/17 00:00 97.9 F 87 21 106/56 98 11/30/17 23:22 87 22 104/57 98 11/30/17 23:00 87 24 96/51 98 11/30/17 22:30 88 24 113/58 98 11/30/17 22:00 94 25 H 129/63 99 11/30/17 21:30 90 24 99/49 98 11/30/17 21:00 87 24 96/53 98 11/30/17 20:30 89 25 H 104/55 97 11/30/17 20:00 85 28 H 93/50 97 11/30/17 19:30 98.4 F 98 25 H 148/86 99 18 19:27 99 11/30/17 19:12 114 H 11/30/17 19:00 99 24 91/50 99 11/30/17 18:30 98 25 H 83/45 99 11/30/17 18:00 101 H 25 H 80/44 98 11/30/17 17:30 127 H 37 H 92/50 99 11/30/17 17:00 115 H 23 97 11/30/17 16:30 130 H 36 H 96 11/30/17 16:00 98.1 F 131 H 29 H 100 11/30/17 15:45 128 H 1418 15:30 130 H 29 H 96 08/14/18 15:22 128 H 11/30/17 15:00 119 H 42 H 93 L 11/30/17 14:30 94 38 H 97 11/30/17 14:00 96 33 H 95 11/30/17 13:30 95 22 98 11/30/17 13:00 96 28 H 100 Intake and Output 11/30/17 12/01/17 12/01/17 22:59 06:59 14:59 Intake Total 610.736 293.701 674 Output Total 580 825 560 Balance 30.736 -531.299 114 Intake: IV 348.1 200 674 Calcium Chloride 1,000 mg 100 In Sodium Chloride 0.9% 100 ml @ 100 mls/hr IVPB ONCE STA Rx#:[id number] Dextrose 5% in Water 1, 200 000 ml @ 50 mls/hr IV . Q20H JANNA Rx#:[id number] KVO 325 200 100 Piperacillin-Tazobactam 3 12.5 50 .375 gm In Dextrose/Water 1 50ml.bag @ 12.5 mls/hr IVPB Q8HR JANNA Rx#: [id number] Potassium Chloride 20 meq 200 In Water For Injection 1 100ml.bag @ 50 mls/hr IVPB Q2H JANNA Rx#: [id number] Pressure Bags 10.6 24 Intake, IV Titration 262.636 93.701 Amount Dexmedetomidine/0.9% NaCl 82.058 82.442 (Pmx) 400 mcg In Empty Bag 1 bag @ Titrate IV . Q0M JANNA Rx#:[id number] Dextrose 5%-0.45% NaCl 1, 50 000 ml @ 50 mls/hr IV . Q20H JANNA Rx#:[id number] Insulin Regular 100 unit 9.160 11.259 In Sodium Chloride 0.9% 100 ml @ Per Protocol IV .Q0M JANNA Rx#:[id number] Milrinone-D5w Pmx 20 mg 93.744 In Dextrose/Water 1 100ml .bag @ 0.2 MCG/KG/MIN 4. 66 mls/hr IV .[id number] JANNA Rx#:[id number] Norepinephrin 16 mg-0.9% 7.674 Ns Pmx 16 mg In 250 ml @ Titrate IV .Q0M JANNA Rx#: [id number] Sodium Chloride 0.9% 99 20 ml @ Per Protocol IV .Q0M JANNA with Vasopressin 20 unit Rx#:[id number] Output: Chest Tube Drainage 80 40 10 right pleural 80 40 10 Urine 500 785 550 Other: Voiding Method Indwelling Catheter Indwelling Catheter Indwelling Catheter Weight 82.1 kg ABP, PAP, CO, CI - Last 8 Hours Arterial Blood Pressure 111/48 Arterial Blood Pressure 118/54 Arterial Blood Pressure 110/50 Arterial Blood Pressure 120/53 Arterial Blood Pressure 131/61 Arterial Blood Pressure 121/60 Arterial Blood Pressure 136/66 Arterial Blood Pressure 126/55 General appearance: The patient is awake overall appearance pale weak does not converse well not his head in no acute distress. HET: Head is normocephalic and atraumatic. Pupils are equal and reactive. Oropharynx is clear without lesions. Neck: Supple without lymphadenopathy. Trachea midline. Central line without erythema or drainage Heart: S1 S2. Lungs: No crackles or wheezes are heard. Poor inspiratory effort diminished in bases bilaterally. Abdomen: Soft, nontender, nondistended with bowel sounds. No peritoneal signs. No palpable organomegaly or masses. Extremities: Trace bilateral lower extremity edema. Fong with clear he marta urine. Neurological: No focal deficits. Squeeze his hands appropriately. Nods head. Results CBC & Chem 7: 12/01/17 05:00 12/01/17 05:00 Labs: Abnormal Lab Results - Last 24 Hours (Table) 11/30/17 11/30/17 11/30/17 Range/Units 13:26 14:15 14:51 WBC (3.8-10.6) k/uL RBC (4.30-5.90) m/uL Hgb (13.0-17.5) gm/dL Hct (39.0-53.0) % RDW (11.5-15.5) % Plt Count (150-450) k/uL Neutrophils # (1.3-7.7) k/uL Lymphocytes # (1.0-4.8) k/uL ABG pH (7.35-7.45) ABG pO2 (83-108) mmHg ABG HCO3 (21-25) mmol/L ABG Total CO2 (19-24) mmol/L ABG O2 Saturation (94-97) % Sodium (137-145) mmol/L Chloride (98-107) mmol/L BUN (9-20) mg/dL Creatinine (0.66-1.25) mg/dL Glucose (74-99) mg/dL POC Glucose (mg/dL) 129 H 148 H 156 H (75-99) mg/dL Calcium (8.4-10.2) mg/dL Phosphorus (2.5-4.5) mg/dL Magnesium (1.6-2.3) mg/dL Total Bilirubin (0.2-1.3) mg/dL AST (17-59) U/L ALT (21-72) U/L Alkaline Phosphatase (38-126) U/L Total Protein (6.3-8.2) g/dL Albumin (3.5-5.0) g/dL 11/30/17 11/30/17 11/30/17 Range/Units 16:01 17:01 18:14 WBC (3.8-10.6) k/uL RBC (4.30-5.90) m/uL Hgb (13.0-17.5) gm/dL Hct (39.0-53.0) % RDW (11.5-15.5) % Plt Count (150-450) k/uL Neutrophils # (1.3-7.7) k/uL Lymphocytes # (1.0-4.8) k/uL ABG pH 7.47 H (7.35-7.45) ABG pO2 112 H (83-108) mmHg ABG HCO3 27 H (21-25) mmol/L ABG Total CO2 28 H (19-24) mmol/L ABG O2 Saturation 99.1 H (94-97) % Sodium (137-145) mmol/L Chloride (98-107) mmol/L BUN (9-20) mg/dL Creatinine (0.66-1.25) mg/dL Glucose (74-99) mg/dL POC Glucose (mg/dL) 153 H 143 H (75-99) mg/dL Calcium (8.4-10.2) mg/dL Phosphorus (2.5-4.5) mg/dL Magnesium (1.6-2.3) mg/dL Total Bilirubin (0.2-1.3) mg/dL AST (17-59) U/L ALT (21-72) U/L Alkaline Phosphatase (38-126) U/L Total Protein (6.3-8.2) g/dL Albumin (3.5-5.0) g/dL 11/30/17 11/30/17 12/01/17 Range/Units 19:56 22:00 00:57 WBC (3.8-10.6) k/uL RBC (4.30-5.90) m/uL Hgb (13.0-17.5) gm/dL Hct (39.0-53.0) % RDW (11.5-15.5) % Plt Count (150-450) k/uL Neutrophils # (1.3-7.7) k/uL Lymphocytes # (1.0-4.8) k/uL ABG pH (7.35-7.45) ABG pO2 (83-108) mmHg ABG HCO3 (21-25) mmol/L ABG Total CO2 (19-24) mmol/L ABG O2 Saturation (94-97) % Sodium (137-145) mmol/L Chloride (98-107) mmol/L BUN (9-20) mg/dL Creatinine (0.66-1.25) mg/dL Glucose (74-99) mg/dL POC Glucose (mg/dL) 136 H 134 H 136 H (75-99) mg/dL Calcium (8.4-10.2) mg/dL Phosphorus (2.5-4.5) mg/dL Magnesium (1.6-2.3) mg/dL Total Bilirubin (0.2-1.3) mg/dL AST (17-59) U/L ALT (21-72) U/L Alkaline Phosphatase (38-126) U/L Total Protein (6.3-8.2) g/dL Albumin (3.5-5.0) g/dL 12/01/17 12/01/17 12/01/17 Range/Units 02:11 04:12 05:00 WBC 13.7 H (3.8-10.6) k/uL RBC 2.75 L (4.30-5.90) m/uL Hgb 8.1 L (13.0-17.5) gm/dL Hct 25.0 L (39.0-53.0) % RDW 18.4 H (11.5-15.5) % Plt Count 138 L (150-450) k/uL Neutrophils # 12.4 H (1.3-7.7) k/uL Lymphocytes # 0.3 L (1.0-4.8) k/uL ABG pH (7.35-7.45) ABG pO2 (83-108) mmHg ABG HCO3 (21-25) mmol/L ABG Total CO2 (19-24) mmol/L ABG O2 Saturation (94-97) % Sodium (137-145) mmol/L Chloride (98-107) mmol/L BUN (9-20) mg/dL Creatinine (0.66-1.25) mg/dL Glucose (74-99) mg/dL POC Glucose (mg/dL) 149 H 146 H (75-99) mg/dL Calcium (8.4-10.2) mg/dL Phosphorus (2.5-4.5) mg/dL Magnesium (1.6-2.3) mg/dL Total Bilirubin (0.2-1.3) mg/dL AST (17-59) U/L ALT (21-72) U/L Alkaline Phosphatase (38-126) U/L Total Protein (6.3-8.2) g/dL Albumin (3.5-5.0) g/dL 12/01/17 12/01/17 12/01/17 Range/Units 05:00 06:04 09:04 WBC (3.8-10.6) k/uL RBC (4.30-5.90) m/uL Hgb (13.0-17.5) gm/dL Hct (39.0-53.0) % RDW (11.5-15.5) % Plt Count (150-450) k/uL Neutrophils # (1.3-7.7) k/uL Lymphocytes # (1.0-4.8) k/uL ABG pH (7.35-7.45) ABG pO2 (83-108) mmHg ABG HCO3 (21-25) mmol/L ABG Total CO2 (19-24) mmol/L ABG O2 Saturation (94-97) % Sodium 149 H (137-145) mmol/L Chloride 117 H (98-107) mmol/L BUN 126 H* (9-20) mg/dL Creatinine 1.60 H (0.66-1.25) mg/dL Glucose 133 H (74-99) mg/dL POC Glucose (mg/dL) 132 H 131 H (75-99) mg/dL Calcium 7.9 L (8.4-10.2) mg/dL Phosphorus 4.9 H (2.5-4.5) mg/dL Magnesium 2.5 H (1.6-2.3) mg/dL Total Bilirubin 3.5 H (0.2-1.3) mg/dL AST 93 H (17-59) U/L ALT 161 H (21-72) U/L Alkaline Phosphatase 183 H (38-126) U/L Total Protein 5.3 L (6.3-8.2) g/dL Albumin 2.3 L (3.5-5.0) g/dL 12/01/17 12/01/17 Range/Units 10:52 12:38 WBC (3.8-10.6) k/uL RBC (4.30-5.90) m/uL Hgb (13.0-17.5) gm/dL Hct (39.0-53.0) % RDW (11.5-15.5) % Plt Count (150-450) k/uL Neutrophils # (1.3-7.7) k/uL Lymphocytes # (1.0-4.8) k/uL ABG pH (7.35-7.45) ABG pO2 (83-108) mmHg ABG HCO3 (21-25) mmol/L ABG Total CO2 (19-24) mmol/L ABG O2 Saturation (94-97) % Sodium (137-145) mmol/L Chloride (98-107) mmol/L BUN (9-20) mg/dL Creatinine (0.66-1.25) mg/dL Glucose (74-99) mg/dL POC Glucose (mg/dL) 138 H 152 H (75-99) mg/dL Calcium (8.4-10.2) mg/dL Phosphorus (2.5-4.5) mg/dL Magnesium (1.6-2.3) mg/dL Total Bilirubin (0.2-1.3) mg/dL AST (17-59) U/L ALT (21-72) U/L Alkaline Phosphatase (38-126) U/L Total Protein (6.3-8.2) g/dL Albumin (3.5-5.0) g/dL Microbiology - Last 24 Hours (Table) 11/24/17 10:25 Blood Culture - Final Blood No Growth after 144 hours 11/24/17 10:51 Blood Culture - Final Blood No Growth after 144 hours Assessment and Plan (1) Failure to thrive Narrative/Plan: Mild protein calorie malnutrition Current Visit: Yes Status: Acute Code(s): VCC7584 - SNOMED Code(s): 81182363 (2) S/P CABG x 4 Current Visit: Yes Status: Acute Code(s): Z95.1 - PRESENCE OF AORTOCORONARY BYPASS GRAFT SNOMED Code(s): 761549920 (3) S/P mitral valve repair Current Visit: Yes Status: Acute Code(s): Z98.890 - OTHER SPECIFIED POSTPROCEDURAL STATES SNOMED Code(s): 297082743 (4) Congestive heart failure with cardiomyopathy Current Visit: Yes Status: Chronic Code(s): I50.9 - HEART FAILURE, UNSPECIFIED; I42.9 - CARDIOMYOPATHY, UNSPECIFIED SNOMED Code(s): 80605525 (5) Coronary artery disease Current Visit: Yes Status: Chronic Code(s): I25.10 - ATHSCL HEART DISEASE OF [place] CORONARY ARTERY W/O ANG PCTRS SNOMED Code(s): 46283266 (6) Ischemic cardiomyopathy Current Visit: Yes Status: Chronic Code(s): I25.5 - ISCHEMIC CARDIOMYOPATHY SNOMED Code(s): 036150776 Plan: 1. We'll proceed with endoscopic placement of Dobbhoff tube. 2. Dietary consultation for tube feeding assessment. Prealbumin. The biomathematician has discussed the risks, benefits and alternative therapies for the above-mentioned procedure and for both sedation/analgesia as well as necessary blood product administration, if indicated, as they pertain to this patient. The patient's advocate has indicated understanding and acceptance of the risks and procedures discussed. Thank you for this kind referral and the opportunity to participate in the care of your patient. This consultation was discussed with Dr. Wright. The impression and plan of care have been directed as dictated.
[2017-12-01] MEDS: MILRINONE-D5W PMX 20 MG in DEXTROSE/WATER 1 100ML.BAG IV SCH (14:31)
--- NOTE | 2017-12-01 16:13 | XR ---
EXAMINATION TYPE: XR chest 1V portable DATE OF EXAM: 12/01/2017 COMPARISON: 12/01/2017 earlier exam INDICATION: Feeding tube placement TECHNIQUE: Single frontal view of the chest is obtained. FINDINGS: The heart size is enlarged. The pulmonary vasculature is normal. There is a left lower lobe infiltrate. Correlate for pneumonia. Sternotomy wires are present from a c ardiac valve surgery. Small right pleural effusion may be present. Left central venous catheter is p resent with the tip in the superior vena cava region. PICC line enters on the left with tip in superi or vena cava region. Epicardial leads are present. There is a feeding tube present which extends to the daiana and extends towards the left. Findings ap pear suggestive for placement into the left lower lobe bronchus. Report was called to Dexter, the [facility]'s nurse, by Dr. Cam by telephone at the time of interpretation 1610 hours 12/01/2017. IMPRESSION: 1. Left lower lobe infiltrate. Correlate for pneumonia. 2. Dobbhoff feeding tube appears to be in the left lower lobe bronchus.
[2017-12-01 16:23] LABS: Glucose,Whole Blood 157 mg/dL (75-99)
[2017-12-01] MEDS: ASCORBIC ACID 500 MG TAB PO SCH ×2 (17:01→17:37)
[2017-12-01] MEDS: FERROUS SULFATE 325 MG TAB PO SCH ×2 (17:01→17:37)
[2017-12-01] MEDS: CLOPIDOGREL 75 MG TAB PO SCH (17:02)
[2017-12-01] MEDS: AMIODARONE 200 MG TAB PO SCH (17:02)
[2017-12-01] MEDS: ASPIRIN 81 MG PO SCH (17:02)
[2017-12-01] MEDS: SERTRALINE 25 MG TAB PO SCH (17:03)
[2017-12-01] MEDS: METOPROLOL TARTRATE 25 MG TAB PO SCH ×2 (17:03→21:50)
[2017-12-01] MEDS: INSULIN REGULAR 100 UNIT in SODIUM CHLORIDE 0.9% 100 ML IV SCH (17:35)
[2017-12-01 17:36] LABS: Glucose,Whole Blood 162 mg/dL (75-99)
[2017-12-01 18:31] LABS: Glucose,Whole Blood 163 mg/dL (75-99)
[2017-12-01] MEDS ORDERED: DEXMEDETOMIDINE/0.9% NACL(PMX) 400 MCG in EMPTY BAG 1 BAG IV SCH (19:15)
[2017-12-01] MEDS ORDERED: DEXMEDETOMIDINE 400 MCG in SODIUM CHLORIDE 0.9% 100 ML IV SCH (19:30)
[2017-12-01] MEDS: ERYTHROMYCIN 5 MG/GM OPHTH OINT 3.5 GM TUBE LEFT EYE SCH (20:23)
[2017-12-01] MEDS: prednisoLONE ACETATE 1% OPHTH DROPS 5 ML BTL LEFT EYE SCH (20:24)
[2017-12-01 20:46] LABS: Glucose,Whole Blood 142 mg/dL (75-99)
--- NOTE | 2017-12-01 20:46 | PN ---
PROGRESS NOTE Mr. Silva is seen for followup for cardiac evaluation. Patient is status post coronary artery bypass surgery and mitral valve repair. The patient remains a little bit lethargic and minimally responsive to the comments. He is afebrile. Hemodynamically remains stable. Blood pressure is 96/52 mmHg. Oxygen saturation is 98%. First and second heart sounds are normal. Lungs examination reveals bilateral diminished air entry. Patient's sodium is 149 and chloride is 117. BUN is 126 and creatinine is 1.6. IMPRESSION: The patient hemodynamically remains stable. However he has been developing hyponatremia which could be responsible for the patient's mental status changes. Patient is going to be started with D5W at 50 mL an hour and the patient is also going to start on parenteral nutrition.. MMODL / IJN: [id number] /
[2017-12-01] MEDS: ATORVASTATIN 40 MG TAB PO SCH (21:49)
[2017-12-01] MEDS: SENNOSIDES-DOCUSATE SODIUM 1 EACH TAB PO SCH (21:50)
[2017-12-01] MEDS: MELATONIN 5 MG TABLET PO SCH (21:50)
[2017-12-01 22:37] LABS: Glucose,Whole Blood 128 mg/dL (75-99)
[2017-12-01 23:47] LABS: Glucose,Whole Blood 112 mg/dL (75-99)
[2017-12-02 00:21] LABS: Glucose,Whole Blood 98 mg/dL (75-99)
[2017-12-02 01:14] LABS: Glucose,Whole Blood 114 mg/dL (75-99)
[2017-12-02 02:24] LABS: Glucose,Whole Blood 124 mg/dL (75-99)
[2017-12-02 04:23] LABS: Glucose,Whole Blood 150 mg/dL (75-99)
[2017-12-02 04:31] LABS: Anisocytosis Slight; HCT 24.6 % (39.0-53.0); HGB 7.8 gm/dL (13.0-17.5); Hypochromasia Moderate; MCH 29.1 pg (25.0-35.0); MCHC 31.9 g/dL (31.0-37.0); MCV 91.4 fL (80.0-100.0); Mean Platelet Volume 11.7; Platelet Count 123 k/uL (150-450); Poikilocytosis Slight; RBC 2.69 m/uL (4.30-5.90); RDW 18.6 % (11.5-15.5); WBC 12.4 k/uL (3.8-10.6)
[2017-12-02 04:54] LABS: Ionized Calcium 4.9 mg/dL (4.5-5.3)
[2017-12-02 05:04] LABS: Albumin 2.1 g/dL (3.5-5.0); Calcium 7.8 mg/dL (8.4-10.2); Magnesium 2.4 mg/dL (1.6-2.3); Phosphorus 4.7 mg/dL (2.5-4.5); Potassium 3.5 mmol/L (3.5-5.1); Total Bilirubin 3.9 mg/dL (0.2-1.3)
[2017-12-02 05:27] LABS: Crenated RBC Present; Lymphocytes # (M) 0.25 k/uL (1.0-4.8); Monocytes # (M) 0.62 k/uL (0-1.0); Neutrophils # (M) 11.53 k/uL (1.3-7.7); Neutrophils % (M) 93 %; Nucleated Red Blood Cells 0 /100 WBC (0-0); Total Cells Counted 100
[2017-12-02] MEDS: DEXTROSE 5% IN WATER 1,000 ML IV SCH ×3 (05:28→16:52)
[2017-12-02] MEDS: POTASSIUM CHLORIDE 20 MEQ in WATER FOR INJECTION 1 100ML.BAG IVPB SCH ×2 (06:46→08:15)
[2017-12-02] MEDS: METOPROLOL TARTRATE 5 MG/5 ML VIAL IVP SCH ×2 (06:47→11:17)
[2017-12-02 06:54] LABS: Glucose,Whole Blood 166 mg/dL (75-99)
[2017-12-02] MEDS: IPRATROPIUM-ALBUTEROL 3 ML NEB INHALATION SCH ×4 (07:32→19:32)
[2017-12-02] MEDS: ACETYLCYSTEINE 800 MG/4 ML VIAL INHALATION SCH ×4 (07:32→19:31)
[2017-12-02] MEDS: PIPERACILLIN-TAZOBACTAM 3.375 GM in DEXTROSE/WATER 1 50ML.BAG IVPB SCH ×2 (07:44→15:23)
[2017-12-02] MEDS: PANTOPRAZOLE 40 MG/10 ML VIAL IVP SCH (07:52)
[2017-12-02] MEDS ORDERED: CALCIUM CHLORIDE 1,000 MG in SODIUM CHLORIDE 0.9% 100 ML IVPB STA (07:57)
[2017-12-02] MEDS: HEPARIN SODIUM,PORCINE 5,000 UNIT/ML 1 ML VIAL SQ SCH ×2 (07:59→17:31)
[2017-12-02] MEDS: NOREPINEPHRINE 16 MG in DEXTROSE 5% IN WATER 250 ML IV SCH ×2 (08:10)
[2017-12-02 08:21] LABS: Glucose,Whole Blood 151 mg/dL (75-99)
--- NOTE | 2017-12-02 08:21 | XR ---
EXAMINATION TYPE: XR chest 1V portable DATE OF EXAM: 12/02/2017 HISTORY: Shortness of breath. COMPARISON: December 01, 2017 TECHNIQUE: Single view of the chest is submitted. FINDINGS: Left-sided PICC line remains. Remaining catheters have been removed. No evidence of pneumothorax. Demonstrated are scattered senescent parenchymal change. Patchy density left lower lobe. Small bilateral pleural effusions with pulmonary venous congestion. The heart is stable. Hilar and mediastinal structures are within normal limits. Degenerative changes are seen of the dorsal spine. IMPRESSION: 1. Stable chest
[2017-12-02] MEDS: SENNOSIDES-DOCUSATE SODIUM 1 EACH TAB PO SCH (08:41)
[2017-12-02] MEDS ORDERED: ASPIRIN 300 MG SUPP RECTAL SCH (09:00)
--- NOTE | 2017-12-02 09:06 | P.PN ---
Subjective Patient is seen in follow-up for acute kidney injury. Creatinine was greater than 3 on admission and is stable 1.6 today. Patient underwent CABG and mitral valve repair this admission. Ejection fraction is 30-35%. Hemoglobin 6.9 on s/p pRBC transfusion - hgb 7.8 today. He is off vasopressors at this time. He is nonoliguric. Extubated 11/29. Sodium level 151 today. Vital signs are stable. General: The patient appeared well nourished and normally developed. HEENT: Head exam is unremarkable. Neck is without jugular venous distension. LUNGS: Breath sounds decreased. HEART: Rate and Rhythm are regular. First and second heart sounds normal. No murmurs, rubs or gallops. ABDOMEN: Abdominal exam reveals normal bowel sounds. Non-tender and non- distended. No evidence of peritonitis. EXTREMITITES: Trace edema. Objective - Vital Signs Vital signs: Vital Signs Temp 97.9 F 12/02/17 08:00 Pulse 105 H 12/02/17 08:00 Resp 32 H 12/02/17 08:00 BP 101/58 12/01/17 16:00 Pulse Ox 97 12/02/17 08:00 Intake & Output 12/01/17 12/02/17 12/02/17 18:59 06:59 18:59 Intake Total 4009.557 5646.952 206 Output Total 1035 845 95 Balance 251.327 256.952 111 Weight 82.1 kg 84.2 kg Intake: IV 1180 1082 206 Calcium Chloride 1,000 mg 100 In Sodium Chloride 0.9% 100 ml @ 100 mls/hr IVPB ONCE [facility] Rx#:[id number] Dextrose 5% in Water 1, 500 650 50 000 ml @ 50 mls/hr IV . Q20H [facility] Rx#:[id number] KVO 220 260 Piperacillin-Tazobactam 3 100 50 .375 gm In Dextrose/Water 1 50ml.bag @ 12.5 mls/hr IVPB Q8HR [facility] Rx#: [id number] Potassium Chloride 20 meq 200 100 100 In Water For Injection 1 100ml.bag @ 50 mls/hr IVPB Q2H [facility] Rx#: [id number] Pressure Bags 60 72 6 Intake, IV Titration 106.327 19.952 Amount Dexmedetomidine 400 mcg 8.781 In Sodium Chloride 0.9% 100 ml @ 0.1 MCG/KG/HR 2. 05 mls/hr IV .Q24H [facility] Rx #:[id number] Insulin Regular 100 unit 5.218 11.171 In Sodium Chloride 0.9% 100 ml @ Per Protocol IV .Q0M [facility] Rx#:[id number] Milrinone-D5w Pmx 20 mg 77.278 In Dextrose/Water 1 100ml .bag @ 0.2 MCG/KG/MIN 4. 66 mls/hr IV .[id number] [facility] Rx#:[id number] Norepinephrin 16 mg-0.9% 23.831 0 Ns Pmx 16 mg In 250 ml @ Titrate IV .Q0M [facility] Rx#: [id number] Output: Chest Tube Drainage 10 right pleural 10 Urine 1025 845 95 Other: Voiding Method Indwelling Catheter Indwelling Catheter Indwelling Catheter ABP, PAP, CO, CI - Last Documented Arterial Blood Pressure 108/53 Pulmonary Artery Pressure 40/15 Cardiac Output 5.0 Cardiac Index 2.7 - Labs CBC & Chem 7: 12/02/17 04:26 12/02/17 04:26 Labs: Abnormal Lab Results - Last 24 Hours (Table) 12/01/17 12/01/17 12/01/17 Range/Units 05:00 09:04 10:52 WBC (3.8-10.6) k/uL RBC (4.30-5.90) m/uL Hgb (13.0-17.5) gm/dL Hct (39.0-53.0) % RDW (11.5-15.5) % Plt Count (150-450) k/uL Neutrophils # (Manual) (1.3-7.7) k/uL Lymphocytes # (Manual) (1.0-4.8) k/uL Sodium (137-145) mmol/L Chloride (98-107) mmol/L BUN (9-20) mg/dL Creatinine (0.66-1.25) mg/dL Glucose (74-99) mg/dL POC Glucose (mg/dL) 131 H 138 H (75-99) mg/dL Calcium (8.4-10.2) mg/dL Phosphorus (2.5-4.5) mg/dL Magnesium (1.6-2.3) mg/dL Total Bilirubin (0.2-1.3) mg/dL AST (17-59) U/L ALT (21-72) U/L Alkaline Phosphatase (38-126) U/L Total Protein (6.3-8.2) g/dL Albumin (3.5-5.0) g/dL Prealbumin <5.0 L (18.0-42.0) mg/dL 12/01/17 12/01/17 12/01/17 Range/Units 12:38 16:10 17:34 WBC (3.8-10.6) k/uL RBC (4.30-5.90) m/uL Hgb (13.0-17.5) gm/dL Hct (39.0-53.0) % RDW (11.5-15.5) % Plt Count (150-450) k/uL Neutrophils # (Manual) (1.3-7.7) k/uL Lymphocytes # (Manual) (1.0-4.8) k/uL Sodium (137-145) mmol/L Chloride (98-107) mmol/L BUN (9-20) mg/dL Creatinine (0.66-1.25) mg/dL Glucose (74-99) mg/dL POC Glucose (mg/dL) 152 H 157 H 162 H (75-99) mg/dL Calcium (8.4-10.2) mg/dL Phosphorus (2.5-4.5) mg/dL Magnesium (1.6-2.3) mg/dL Total Bilirubin (0.2-1.3) mg/dL AST (17-59) U/L ALT (21-72) U/L Alkaline Phosphatase (38-126) U/L Total Protein (6.3-8.2) g/dL Albumin (3.5-5.0) g/dL Prealbumin (18.0-42.0) mg/dL 12/01/17 12/01/17 12/01/17 Range/Units 18:28 18:30 20:45 WBC (3.8-10.6) k/uL RBC (4.30-5.90) m/uL Hgb (13.0-17.5) gm/dL Hct (39.0-53.0) % RDW (11.5-15.5) % Plt Count (150-450) k/uL Neutrophils # (Manual) (1.3-7.7) k/uL Lymphocytes # (Manual) (1.0-4.8) k/uL Sodium 152 H (137-145) mmol/L Chloride (98-107) mmol/L BUN (9-20) mg/dL Creatinine (0.66-1.25) mg/dL Glucose (74-99) mg/dL POC Glucose (mg/dL) 163 H 142 H (75-99) mg/dL Calcium (8.4-10.2) mg/dL Phosphorus (2.5-4.5) mg/dL Magnesium (1.6-2.3) mg/dL Total Bilirubin (0.2-1.3) mg/dL AST (17-59) U/L ALT (21-72) U/L Alkaline Phosphatase (38-126) U/L Total Protein (6.3-8.2) g/dL Albumin (3.5-5.0) g/dL Prealbumin (18.0-42.0) mg/dL 12/01/17 12/01/17 12/02/17 Range/Units 22:35 23:44 01:12 WBC (3.8-10.6) k/uL RBC (4.30-5.90) m/uL Hgb (13.0-17.5) gm/dL Hct (39.0-53.0) % RDW (11.5-15.5) % Plt Count (150-450) k/uL Neutrophils # (Manual) (1.3-7.7) k/uL Lymphocytes # (Manual) (1.0-4.8) k/uL Sodium (137-145) mmol/L Chloride (98-107) mmol/L BUN (9-20) mg/dL Creatinine (0.66-1.25) mg/dL Glucose (74-99) mg/dL POC Glucose (mg/dL) 128 H 112 H 114 H (75-99) mg/dL Calcium (8.4-10.2) mg/dL Phosphorus (2.5-4.5) mg/dL Magnesium (1.6-2.3) mg/dL Total Bilirubin (0.2-1.3) mg/dL AST (17-59) U/L ALT (21-72) U/L Alkaline Phosphatase (38-126) U/L Total Protein (6.3-8.2) g/dL Albumin (3.5-5.0) g/dL Prealbumin (18.0-42.0) mg/dL 12/02/17 12/02/17 12/02/17 Range/Units 02:22 04:19 04:26 WBC (3.8-10.6) k/uL RBC (4.30-5.90) m/uL Hgb (13.0-17.5) gm/dL Hct (39.0-53.0) % RDW (11.5-15.5) % Plt Count (150-450) k/uL Neutrophils # (Manual) (1.3-7.7) k/uL Lymphocytes # (Manual) (1.0-4.8) k/uL Sodium 151 H (137-145) mmol/L Chloride 119 H (98-107) mmol/L BUN 118 H* (9-20) mg/dL Creatinine 1.60 H (0.66-1.25) mg/dL Glucose 139 H (74-99) mg/dL POC Glucose (mg/dL) 124 H 150 H (75-99) mg/dL Calcium 7.8 L (8.4-10.2) mg/dL Phosphorus 4.7 H (2.5-4.5) mg/dL Magnesium 2.4 H (1.6-2.3) mg/dL Total Bilirubin 3.9 H (0.2-1.3) mg/dL AST 63 H (17-59) U/L ALT 131 H (21-72) U/L Alkaline Phosphatase 141 H (38-126) U/L Total Protein 5.0 L (6.3-8.2) g/dL Albumin 2.1 L (3.5-5.0) g/dL Prealbumin (18.0-42.0) mg/dL 12/02/17 12/02/17 12/02/17 Range/Units 04:26 06:53 08:20 WBC 12.4 H (3.8-10.6) k/uL RBC 2.69 L (4.30-5.90) m/uL Hgb 7.8 L (13.0-17.5) gm/dL Hct 24.6 L (39.0-53.0) % RDW 18.6 H (11.5-15.5) % Plt Count 123 L (150-450) k/uL Neutrophils # (Manual) 11.53 H (1.3-7.7) k/uL Lymphocytes # (Manual) 0.25 L (1.0-4.8) k/uL Sodium (137-145) mmol/L Chloride (98-107) mmol/L BUN (9-20) mg/dL Creatinine (0.66-1.25) mg/dL Glucose (74-99) mg/dL POC Glucose (mg/dL) 166 H 151 H (75-99) mg/dL Calcium (8.4-10.2) mg/dL Phosphorus (2.5-4.5) mg/dL Magnesium (1.6-2.3) mg/dL Total Bilirubin (0.2-1.3) mg/dL AST (17-59) U/L ALT (21-72) U/L Alkaline Phosphatase (38-126) U/L Total Protein (6.3-8.2) g/dL Albumin (3.5-5.0) g/dL Prealbumin (18.0-42.0) mg/dL Assessment and Plan Plan: Assessment: 1. Nonoliguric acute kidney injury secondary to ATN secondary to hemodynamic instability/post CABG. Renal function improved since admission with creatinine stable at 1.6 today. Baseline creatinine is 1. 2. Status post CABG and mitral valve repair. 3. Systolic CHF with ejection fraction of 30-35%. 4. Anemia status post blood transfusion this admission. Hgb 7.8 today. Severe iron deficiency noted. Status post 2 doses of IV iron. 5. Hypotension now off Levophed. Cortisol level 29. 6. Hypernatremia from lack of oral water intake. Expect improvement once oral intake initiated. Plan: Increase D5W to 80 mL an hour. Once he has a feeding tube, will start free water flushes 300 mL every 6 hours and heplock IVFs. Repeat sodium level this evening. Avoid nephrotoxins. Continue to monitor renal function and urine output.
[2017-12-02] MEDS ORDERED: LORazepam 2 MG/ML INJ IV STA (09:09)
--- NOTE | 2017-12-02 09:11 | P.PN ---
Subjective Progress Note Date: 12/02/17 Principal diagnosis: Respiratory failure status post bypass grafting postop day #11 status post mitral valve repair, postop day #11 Progress note dated 11/29/2017 72-year-old male who is postop day #11, status post bypass grafting and mitral valve repair. He also has a history of shock, cardiomyopathy, diabetes mellitus , mitral regurgitation, history of remote nicotine dependence postoperative anemia diabetic retinopathy acute hepatocellular injury acute kidney injury ischemic colitis thrombocytopenia, chronic atrial fibrillation and hypoxemic respiratory failure. The patient currently is on the ventilator and the volume control plus mode. Vent settings include the assist control mode rate of 14, tidal volume 500 FiO2 35% PEEP of 5. PO2 was 149 pCO2 was 37 and pH of 7.46. The patient's currently not on any sedation. I switch him over to PSV of 13 CPAP of 5. Currently he is on IV Primacor 0.2 mics per kilogram per minute, insulin at 2.5 units an hour saline IV KVO and vital high protein at 42 with a goal of 42 mL an hour. The patient was admitted on the had a surgery on November 17 was extubated initially on the and reintubated on November 24. We did drop his FiO2 from 35-30% given a PaO2 of 149. Chest x-ray shows possible changes as well as a right-sided pleural effusion. Relatively small. Progress note dated 11/30/2017 72-year-old male postop day #12, status post bypass grafting and mitral valve repair. The patient also has a history of shock, cardiomyopathy, diabetes mellitus, mitral regurgitation, remote nicotine dependence, postoperative anemia , diabetic retinopathy, hepatocellular injury, acute kidney injury, ischemic colitis, thrombocytopenia, chronic atrial fibrillation and hypoxemic respiratory failure. The patient currently is on the ventilator. The mode is volume assist control with a rate of 14, tidal volume 500, FiO2 30% and PEEP of 5. On those settings, the blood gases show a PaO2 of 107 pCO2 of 34 and a pH of 7.49. The patient is receiving a saline IV at 10 mL an hour Primacor 0.2 g insulin at 3.5 units an hour and vital 1.2 at 62 with a goal of 62 mL an hour. The patient spent about 7 hours on PSV 13 and CPAP of 5 yesterday. We cannot extubate him because the patient had did not have a cuff leak. We did add Decadron to the regimen at 6 mg every 6 hours 4 doses. The chest x-ray stable. Her labs are stable. White count is 12.8 hemoglobin 8 hematocrit 24.2 platelet count 136,000. Sodium 146 potassium 3.8 chloride is 113 CO2 26 anion gap normal BUN and creatinine are 131 and 1.6. His mental status is still not great. He has open his eyes. His stare is blank. Doesn't really follow commands well. This may be the limiting factor in terms of him being extubated. Progress note dated 12/01/2017 72-year-old male, postoperative day #13, is post bypass grafting and mitral valve repair. The patient has a history of cardiomyopathy shock liver diabetes mellitus mitral regurgitation remote nicotine dependence postoperative anemia that retinopathy acute kidney injury ischemic colitis thrombocytopenia chronic atrial fibrillation and hypoxemic respiratory failure. I was able to extubate the patient yesterday. We had to extubate him to BiPAP therapy. In addition, the patient needed sedation in the form of dexmedetomidine. Subsequently, the patient developed hypotension. He had some fluid boluses and then he required norepinephrine at 3 mcg/m. Remains on Primacor 0.2 g, dexmedetomidine 0.6, and insulin at 1 unit per hour. His IV is dextrose half-normal saline at 50 mL an hour. His BiPAP settings included IPAP of 12, EPAP of 5 and 40%. He is still not really with it mentally. He does have a blank stare on his face. Seemed to respond minimally. I don't think this is she changed that much. Chest x-ray and Lyme panel shows a touch of fluid overload with some bibasilar atelectasis and small effusions. Progress note dated 12/02/2017 72-year-old male, postop day #14, status post bypass grafting and mitral valve repair. The patient has a history of cardiomyopathy shock liver diabetes mitral regurgitation remote nicotine dependence postoperative anemia acute kidney injury ischemic colitis thrombocytopenia chronic atrial fibrillation and hypoxemic respiratory failure. The patient has recently had a difficult time being extubated. I was able to extubate him on November 30. The patient currently remains on BiPAP with an EPAP of 5 and an IPAP of 12. The FiO2 is 40% . Currently, the norepinephrine has been turned off. It was previously running at 2 mcg/m. He remains on Primacor at 0.2 mics dexmedetomidine at 0.4 g insulin at 1.5 units an hour dextrose at 50 mL an hour and a saline IV at 20 mL an hour. Attempts at placing a Dobbhoff tube yesterday were unsuccessful. The patient's mental status remains poor. He does not is set up and down the seems to understand when you speak to him but does have a blank stare on his face. Objective - Vital Signs Vital signs: Vital Signs Temp 97.9 F 12/02/17 08:00 Pulse 105 H 12/02/17 08:00 Resp 32 H 12/02/17 08:00 BP 101/58 12/01/17 16:00 Pulse Ox 97 12/02/17 08:00 Intake & Output 12/01/17 12/02/17 12/02/17 18:59 06:59 18:59 Intake Total 7327.741 2330.952 206 Output Total 1035 845 95 Balance 251.327 256.952 111 Weight 82.1 kg 84.2 kg Intake: IV 1180 1082 206 Calcium Chloride 1,000 mg 100 In Sodium Chloride 0.9% 100 ml @ 100 mls/hr IVPB ONCE STA Rx#:[id number] Dextrose 5% in Water 1, 500 650 50 000 ml @ 50 mls/hr IV . Q20H [facility] Rx#:[id number] KVO 220 260 Piperacillin-Tazobactam 3 100 50 .375 gm In Dextrose/Water 1 50ml.bag @ 12.5 mls/hr IVPB Q8HR [facility] Rx#: [id number] Potassium Chloride 20 meq 200 100 100 In Water For Injection 1 100ml.bag @ 50 mls/hr IVPB Q2H [facility] Rx#: [id number] Pressure Bags 60 72 6 Intake, IV Titration 106.327 19.952 Amount Dexmedetomidine 400 mcg 8.781 In Sodium Chloride 0.9% 100 ml @ 0.1 MCG/KG/HR 2. 05 mls/hr IV .Q24H [facility] Rx #:[id number] Insulin Regular 100 unit 5.218 11.171 In Sodium Chloride 0.9% 100 ml @ Per Protocol IV .Q0M [facility] Rx#:[id number] Milrinone-D5w Pmx 20 mg 77.278 In Dextrose/Water 1 100ml .bag @ 0.2 MCG/KG/MIN 4. 66 mls/hr IV .[id number] [facility] Rx#:[id number] Norepinephrin 16 mg-0.9% 23.831 0 Ns Pmx 16 mg In 250 ml @ Titrate IV .Q0M [facility] Rx#: [id number] Output: Chest Tube Drainage 10 right pleural 10 Urine 1025 845 95 Other: Voiding Method Indwelling Catheter Indwelling Catheter Indwelling Catheter ABP, PAP, CO, CI - Last Documented Arterial Blood Pressure 108/53 Pulmonary Artery Pressure 40/15 Cardiac Output 5.0 Cardiac Index 2.7 - Exam No acute distress, extubated, currently on BiPAP therapy. Mental status is still poor and my opinion. HEENT examination is grossly unremarkable. Mucous membranes are moist. Neck supple. Full range of motion. No adenopathy thyromegaly or neck vein distention. Cardiovascular examination reveals irregular rhythm rate. S1-S2 normal. No S3 or S4. No discernible murmur noted. Heart sounds are distant. Heart sounds are very distant. Lungs reveal scattered diffuse rhonchi. Breath sounds equal. No crackles. No wheezes. Difficult to assess breath sounds is patient does not take deep breaths. Abdomen soft, bowel sounds are heard. No masses or tenderness. Extremities are intact. No cyanosis clubbing or edema. Skin is without rash or lesion. Neurologic examination is difficult to assess. - Labs CBC & Chem 7: 12/02/17 04:26 12/02/17 04:26 Labs: Abnormal Lab Results - Last 24 Hours (Table) 12/01/17 12/01/17 12/01/17 Range/Units 05:00 09:04 10:52 WBC (3.8-10.6) k/uL RBC (4.30-5.90) m/uL Hgb (13.0-17.5) gm/dL Hct (39.0-53.0) % RDW (11.5-15.5) % Plt Count (150-450) k/uL Neutrophils # (Manual) (1.3-7.7) k/uL Lymphocytes # (Manual) (1.0-4.8) k/uL Sodium (137-145) mmol/L Chloride (98-107) mmol/L BUN (9-20) mg/dL Creatinine (0.66-1.25) mg/dL Glucose (74-99) mg/dL POC Glucose (mg/dL) 131 H 138 H (75-99) mg/dL Calcium (8.4-10.2) mg/dL Phosphorus (2.5-4.5) mg/dL Magnesium (1.6-2.3) mg/dL Total Bilirubin (0.2-1.3) mg/dL AST (17-59) U/L ALT (21-72) U/L Alkaline Phosphatase (38-126) U/L Total Protein (6.3-8.2) g/dL Albumin (3.5-5.0) g/dL Prealbumin <5.0 L (18.0-42.0) mg/dL 12/01/17 12/01/17 12/01/17 Range/Units 12:38 16:10 17:34 WBC (3.8-10.6) k/uL RBC (4.30-5.90) m/uL Hgb (13.0-17.5) gm/dL Hct (39.0-53.0) % RDW (11.5-15.5) % Plt Count (150-450) k/uL Neutrophils # (Manual) (1.3-7.7) k/uL Lymphocytes # (Manual) (1.0-4.8) k/uL Sodium (137-145) mmol/L Chloride (98-107) mmol/L BUN (9-20) mg/dL Creatinine (0.66-1.25) mg/dL Glucose (74-99) mg/dL POC Glucose (mg/dL) 152 H 157 H 162 H (75-99) mg/dL Calcium (8.4-10.2) mg/dL Phosphorus (2.5-4.5) mg/dL Magnesium (1.6-2.3) mg/dL Total Bilirubin (0.2-1.3) mg/dL AST (17-59) U/L ALT (21-72) U/L Alkaline Phosphatase (38-126) U/L Total Protein (6.3-8.2) g/dL Albumin (3.5-5.0) g/dL Prealbumin (18.0-42.0) mg/dL 12/01/17 12/01/17 12/01/17 Range/Units 18:28 18:30 20:45 WBC (3.8-10.6) k/uL RBC (4.30-5.90) m/uL Hgb (13.0-17.5) gm/dL Hct (39.0-53.0) % RDW (11.5-15.5) % Plt Count (150-450) k/uL Neutrophils # (Manual) (1.3-7.7) k/uL Lymphocytes # (Manual) (1.0-4.8) k/uL Sodium 152 H (137-145) mmol/L Chloride (98-107) mmol/L BUN (9-20) mg/dL Creatinine (0.66-1.25) mg/dL Glucose (74-99) mg/dL POC Glucose (mg/dL) 163 H 142 H (75-99) mg/dL Calcium (8.4-10.2) mg/dL Phosphorus (2.5-4.5) mg/dL Magnesium (1.6-2.3) mg/dL Total Bilirubin (0.2-1.3) mg/dL AST (17-59) U/L ALT (21-72) U/L Alkaline Phosphatase (38-126) U/L Total Protein (6.3-8.2) g/dL Albumin (3.5-5.0) g/dL Prealbumin (18.0-42.0) mg/dL 12/01/17 12/01/17 12/02/17 Range/Units 22:35 23:44 01:12 WBC (3.8-10.6) k/uL RBC (4.30-5.90) m/uL Hgb (13.0-17.5) gm/dL Hct (39.0-53.0) % RDW (11.5-15.5) % Plt Count (150-450) k/uL Neutrophils # (Manual) (1.3-7.7) k/uL Lymphocytes # (Manual) (1.0-4.8) k/uL Sodium (137-145) mmol/L Chloride (98-107) mmol/L BUN (9-20) mg/dL Creatinine (0.66-1.25) mg/dL Glucose (74-99) mg/dL POC Glucose (mg/dL) 128 H 112 H 114 H (75-99) mg/dL Calcium (8.4-10.2) mg/dL Phosphorus (2.5-4.5) mg/dL Magnesium (1.6-2.3) mg/dL Total Bilirubin (0.2-1.3) mg/dL AST (17-59) U/L ALT (21-72) U/L Alkaline Phosphatase (38-126) U/L Total Protein (6.3-8.2) g/dL Albumin (3.5-5.0) g/dL Prealbumin (18.0-42.0) mg/dL 12/02/17 12/02/17 12/02/17 Range/Units 02:22 04:19 04:26 WBC (3.8-10.6) k/uL RBC (4.30-5.90) m/uL Hgb (13.0-17.5) gm/dL Hct (39.0-53.0) % RDW (11.5-15.5) % Plt Count (150-450) k/uL Neutrophils # (Manual) (1.3-7.7) k/uL Lymphocytes # (Manual) (1.0-4.8) k/uL Sodium 151 H (137-145) mmol/L Chloride 119 H (98-107) mmol/L BUN 118 H* (9-20) mg/dL Creatinine 1.60 H (0.66-1.25) mg/dL Glucose 139 H (74-99) mg/dL POC Glucose (mg/dL) 124 H 150 H (75-99) mg/dL Calcium 7.8 L (8.4-10.2) mg/dL Phosphorus 4.7 H (2.5-4.5) mg/dL Magnesium 2.4 H (1.6-2.3) mg/dL Total Bilirubin 3.9 H (0.2-1.3) mg/dL AST 63 H (17-59) U/L ALT 131 H (21-72) U/L Alkaline Phosphatase 141 H (38-126) U/L Total Protein 5.0 L (6.3-8.2) g/dL Albumin 2.1 L (3.5-5.0) g/dL Prealbumin (18.0-42.0) mg/dL 12/02/17 12/02/1712/02/18 Range/Units 04:26 06:53 08:20 WBC 12.4 H (3.8-10.6) k/uL RBC 2.69 L (4.30-5.90) m/uL Hgb 7.8 L (13.0-17.5) gm/dL Hct 24.6 L (39.0-53.0) % RDW 18.6 H (11.5-15.5) % Plt Count 123 L (150-450) k/uL Neutrophils # (Manual) 11.53 H (1.3-7.7) k/uL Lymphocytes # (Manual) 0.25 L (1.0-4.8) k/uL Sodium (137-145) mmol/L Chloride (98-107) mmol/L BUN (9-20) mg/dL Creatinine (0.66-1.25) mg/dL Glucose (74-99) mg/dL POC Glucose (mg/dL) 166 H 151 H (75-99) mg/dL Calcium (8.4-10.2) mg/dL Phosphorus (2.5-4.5) mg/dL Magnesium (1.6-2.3) mg/dL Total Bilirubin (0.2-1.3) mg/dL AST (17-59) U/L ALT (21-72) U/L Alkaline Phosphatase (38-126) U/L Total Protein (6.3-8.2) g/dL Albumin (3.5-5.0) g/dL Prealbumin (18.0-42.0) mg/dL Assessment and Plan Assessment: Assessment Status post bypass grafting, postop day #14 Postoperative ventilator management, with failure to wean, status post extubation to BiPAP therapy on 11/30/2017 Status post initial extubation on November 18 and reintubation on November 24. Postop day #14, status post mitral valve repair for mitral regurgitation Ischemic cardiomyopathy Type 2 diabetes mellitus History of kidney nicotine dependence Postoperative anemia Diabetic retinopathy Shock liver Acute kidney injury Ischemic colitis Thrombocytopenia Chronic atrial fibrillation Acute hypoxemic respiratory failure Plan: Plan dated 11/29/2017 The patient's labs and x-rays are all reviewed. Medications are reviewed. The patient will be switched over to pressure support of 13 and CPAP of 5. We'll drop the FiO2 down to 30%. I'll repeat a blood gas in one hour. The patient's chest x-ray shows a right-sided pleural effusion. The patient was initially extubated on November 18 and reintubated on November 24. The patient remains on IV Primacor insulin drip at KVO fluids and is being nourished vital high protein at goal. Blood gases are reasonable. PaO2 of 149 PaCO2 37 and a pH of 7.46. The patient's currently not on any sedation. We'll attempt to wean him if possible. White count is 17.4 hemoglobin 6.9 hematocrit 22.0 platelet count 106 ,000. Sodium is 147 potassium 3.8 chloride is 113 and CO2 is 26 BUN and creatinine are 131 and 1.0. AST 123 ALT 212 alkaline phosphatase 204. Total bilirubin is 3.7. Sputum from November showed Klebsiella oxytoca. Arterial blood gases will be repeated in one hour. The patient needs additional water flushes given the increasing sodium and chloride levels. Prognosis is guarded. Critical care time 38 minutes Plan dated 11/30/2017 The patient's labs and x-rays are reviewed. Chest x-ray remains very similar to yesterday's chest x-ray. The patient will be placed back on pressure support and CPAP. Would consider weaning parameters blood gas and a cuff leak. Yesterday, the patient did not have a cuff leak. We added Decadron 6 mg every 6 hours for 4 doses. The patient's medications are reviewed. I'm hoping that we can get the patient towards extubation here in either today or tomorrow. Additional recommendations and suggestions are forthcoming. Prognosis is guarded. The patient remains on appropriate medications. The case was discussed with cardiothoracic surgery. Critical care time 33 minutes Plan dated 12/01/2017 The patient's labs x-rays a medications are reviewed. Chest x-ray my opinion shows just some mild fluid overload with some bibasilar atelectasis and small effusions. The patient remains on a number of medications including Primacor, norepinephrine, Precedex, and insulin. The patient's mental status in my opinion is still poor. His white count is 13.7 hemoglobin 8.1 hematocrit 25.0 platelet count 138,000. Sodium 149 potassium 3.5 chloride 117 CO2 is 26 BUN and creatinine were 126 and 1.60. His liver enzymes are elevated at 93 and 161 respectively. This was for the AST and ALT. Bilirubin 3.5. Albumin 2.3. Sputum was positive back on November 24 for Klebsiella oxytoca medications are reviewed. Prognosis is guarded. Critical care time 34 minutes Plan dated 12/02/2017 The patient's labs x-rays a medications are all reviewed. The chest x-ray my opinion continues to show a fluid overload. There was small effusions and some bibasilar atelectasis. The patient remains on BiPAP at 12 and 5 and 40%. Norepinephrine has been weaned off. The patient remains on Primacor and Precedex. I like to be able to wean the Precedex off. The patient remains on an insulin drip at 1.5 units an hour. The patient is also getting some basic IV fluids. The patient's overall prognosis remains extremely poor. White count is 12.4, hemoglobin 7.8, hematocrit 24.6 and platelet count 123,000. Sodium 151 potassium 3.5 chloride is 119 CO2 24 anion gap is normal and BUN and creatinine is 118 and 1.60. The rest of the comprehensive metabolic profile is evaluated. Critical care time is 34 minutes. Time with Patient: Greater than 30
--- NOTE | 2017-12-02 10:29 | P.PN ---
Subjective Progress Note Date: 12/02/17 Principal diagnosis: Triple-vessel coronary artery disease. Severe ischemic cardiomyopathy. Moderate mitral valve regurgitation. Mild tricuspid valve regurgitation. Diabetes mellitus with preoperative hemoglobin A1c 6.7%. Hyperlipidemia. Moderate to severe restrictive lung disease with preoperative FEV1 43% of predicted. Evidence of diffuse calcific coronary artery disease. 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 Previous tobacco dependence. POD #16 placement of preoperative intra-aortic balloon pump POD #15 quadruple coronary artery bypass grafting using the left internal mammary artery to the left anterior descending artery, reverse saphenous vein graft from the aorta to the diagonal artery, reverse saphenous vein graft from the aorta to the first obtuse marginal artery, reverse saphenous vein graft from the aorta to the posterior descending artery. Mitral valve repair using a complete ring annuloplasty with a 30 mm Kapoor IMR ring. Exclusion of the left atrial appendage using a 35 mm Atriclip. Intraoperative transesophageal echocardiogram and epi-aortic scanning. Intraoperative graft flow measurements using the Enlikenstim system. Post operative normocytic, normochromic anemia, an expected outcome of surgery. Postoperative thrombocytopenia, an expected outcome of surgery. Postoperative atrial fibrillation, an expected outcome of surgery. Postoperative elevated transaminases, an unexpected outcome of surgery, likely secondary to low flow state post surgery. Postoperative acute kidney injury, an unexpected outcome of surgery, likely secondary to low flow state post surgery. Postoperative acute metabolic acidosis, lactic acidosis, reintubation, an unexpected outcome. Postoperative cardiogenic shock, an unexpected outcome. Postoperative hypernatremia, an unexpected outcome. The patient was extubated to BiPAP November 30, currently on Precedex for sedation to keep him synchronous with the BiPAP. He is alert with a flat affect , he does follow some commands but becomes very tacchypneic with much stimulation, he does appear depressed without any motivation to improve. He remains on Primacor at 0.2 mcg/kg/min, levo has been off and on at a low dose of 2 mcg. His urine output was 40-75 ml/hr overnight. His BUN this morning is 118 from 126, creatinine has been 1.6 for the last 4 days. Sodium level is elevated to 151 from 149 yesterday. Liver enzymes continue to improve. Hemaglobin this morning is 7.8 from 8.1, transfusion of 1 unit packed red blood cells Wednesday. White blood cell count has decreased 12.4 from 13.7, currently on zosyn with sputum culture growing Klebsiella oxytoca, platelet count has decreased today to 123 from 138. He is was in controlled atrial fibrillation this morning, currently in sinus rhythm with occasional PVCs with heart rate in the 70-80s. GI attempted to place a Dobbhoff yesterday but was unsuccessful with the distal end in the left lower lobe of the lung, it was removed, will be attempted again today in order to provide nutrition and oral medication. Right pleural chest, triple lumen central line discontinued yesterday. He remains critical, prognosis is guarded. His has been updated daily. Objective - Vital Signs Vital signs: Vital Signs Temp 97.9 F 12/02/17 08:00 Pulse 104 H 12/02/17 09:00 Resp 22 12/02/17 09:00 BP 101/58 12/01/17 16:00 Pulse Ox 95 12/02/17 09:00 Intake & Output 12/01/17 12/02/17 12/02/17 18:59 06:59 18:59 Intake Total 1695.640 8966.952 383.219 Output Total 1035 845 160 Balance 251.327 256.952 223.219 Weight 82.1 kg 84.2 kg Intake: IV 1180 1082 292 Calcium Chloride 1,000 mg 100 In Sodium Chloride 0.9% 100 ml @ 100 mls/hr IVPB ONCE STA Rx#:[id number] Dextrose 5% in Water 1, 500 650 130 000 ml @ 80 mls/hr IV . [id number] [facility] Rx#:[id number] KVO 220 260 Piperacillin-Tazobactam 3 100 50 .375 gm In Dextrose/Water 1 50ml.bag @ 12.5 mls/hr IVPB Q8HR [facility] Rx#: [id number] Potassium Chloride 20 meq 200 100 100 In Water For Injection 1 100ml.bag @ 50 mls/hr IVPB Q2H [facility] Rx#: [id number] Pressure Bags 60 72 12 Intake, IV Titration 106.327 19.952 91.219 Amount Dexmedetomidine 400 mcg 8.781 91.219 In Sodium Chloride 0.9% 100 ml @ 0.1 MCG/KG/HR 2. 05 mls/hr IV .Q24H [facility] Rx #:[id number] Insulin Regular 100 unit 5.218 11.171 In Sodium Chloride 0.9% 100 ml @ Per Protocol IV .Q0M [facility] Rx#:[id number] Milrinone-D5w Pmx 20 mg 77.278 In Dextrose/Water 1 100ml .bag @ 0.2 MCG/KG/MIN 4. 66 mls/hr IV .[id number] [facility] Rx#:[id number] Norepinephrin 16 mg-0.9% 23.831 0 Ns Pmx 16 mg In 250 ml @ Titrate IV .Q0M [facility] Rx#: [id number] Output: Chest Tube Drainage 10 right pleural 10 Urine 1025 845 160 Other: Voiding Method Indwelling Catheter Indwelling Catheter Indwelling Catheter ABP, PAP, CO, CI - Last Documented Arterial Blood Pressure 95/45 Pulmonary Artery Pressure 40/15 Cardiac Output 5.0 Cardiac Index 2.7 - Constitutional General appearance: Present: cooperative, no acute distress - Respiratory Details: Lungs sounds diminished bilaterally with scattered rhonchi. Respirations even, nonlabored on BiPAP, although patient does get tachypneic with a lot of stimulation. BiPAP settings FiO2 30%, IPAP 12, EPAP 5. Right pleural chest tube removed yesterday. - Cardiovascular Details: S1, S2 present. Regular rate and rhythm, sinus rhythm on telemetry. Sternum stable. A/V epicardial pacemaker wires present, grounded. Palpable peripheral pulses bilaterally. Bilateral lower extremity, scrotal edema present. Right radial arterial line, left brachial PICC line present. Levo on and off at 2 mcg, Primacor continues at 0.02 mcg/kg/min. Heart hugger, antiembolism stockings, SCDs present. - Gastrointestinal Gastrointestinal Comment(s): Abdomen soft, nontender, nondistended. Active bowel sounds present 4 quadrants. - Genitourinary Genitourinary Comment(s): Fong present draining clear yellow urine. Output 40-75 ml/hr overnight. - Integumentary Integumentary Comment(s): Skin warm and dry. Sternal incision well approximated and covered with dry intact dressing. Left lower extremity EVH site well approximated. Stage II pressure ulcer to coccyx, covered by Optisol foam dressing. - Neurologic Neurologic: Present: CNII-XII intact - Musculoskeletal Musculoskeletal: Present: generalized weakness - Psychiatric Psychiatric Comment(s): Patient with very flat affect, does appear depressed. Psychiatric: Present: A&O x's 3 - Allied health notes Allied health notes reviewed: nursing - Labs CBC & Chem 7: 12/02/17 04:26 12/02/17 04:26 Labs: Abnormal Lab Results - Last 24 Hours (Table) 12/01/17 12/01/17 12/01/17 Range/Units 05:00 10:52 12:38 WBC (3.8-10.6) k/uL RBC (4.30-5.90) m/uL Hgb (13.0-17.5) gm/dL Hct (39.0-53.0) % RDW (11.5-15.5) % Plt Count (150-450) k/uL Neutrophils # (Manual) (1.3-7.7) k/uL Lymphocytes # (Manual) (1.0-4.8) k/uL Sodium (137-145) mmol/L Chloride (98-107) mmol/L BUN (9-20) mg/dL Creatinine (0.66-1.25) mg/dL Glucose (74-99) mg/dL POC Glucose (mg/dL) 138 H 152 H (75-99) mg/dL Calcium (8.4-10.2) mg/dL Phosphorus (2.5-4.5) mg/dL Magnesium (1.6-2.3) mg/dL Total Bilirubin (0.2-1.3) mg/dL AST (17-59) U/L ALT (21-72) U/L Alkaline Phosphatase (38-126) U/L Total Protein (6.3-8.2) g/dL Albumin (3.5-5.0) g/dL Prealbumin <5.0 L (18.0-42.0) mg/dL 12/01/17 12/01/17 12/01/17 Range/Units 16:10 17:34 18:28 WBC (3.8-10.6) k/uL RBC (4.30-5.90) m/uL Hgb (13.0-17.5) gm/dL Hct (39.0-53.0) % RDW (11.5-15.5) % Plt Count (150-450) k/uL Neutrophils # (Manual) (1.3-7.7) k/uL Lymphocytes # (Manual) (1.0-4.8) k/uL Sodium (137-145) mmol/L Chloride (98-107) mmol/L BUN (9-20) mg/dL Creatinine (0.66-1.25) mg/dL Glucose (74-99) mg/dL POC Glucose (mg/dL) 157 H 162 H 163 H (75-99) mg/dL Calcium (8.4-10.2) mg/dL Phosphorus (2.5-4.5) mg/dL Magnesium (1.6-2.3) mg/dL Total Bilirubin (0.2-1.3) mg/dL AST (17-59) U/L ALT (21-72) U/L Alkaline Phosphatase (38-126) U/L Total Protein (6.3-8.2) g/dL Albumin (3.5-5.0) g/dL Prealbumin (18.0-42.0) mg/dL 12/01/17 12/01/17 12/01/17 Range/Units 18:30 20:45 22:35 WBC (3.8-10.6) k/uL RBC (4.30-5.90) m/uL Hgb (13.0-17.5) gm/dL Hct (39.0-53.0) % RDW (11.5-15.5) % Plt Count (150-450) k/uL Neutrophils # (Manual) (1.3-7.7) k/uL Lymphocytes # (Manual) (1.0-4.8) k/uL Sodium 152 H (137-145) mmol/L Chloride (98-107) mmol/L BUN (9-20) mg/dL Creatinine (0.66-1.25) mg/dL Glucose (74-99) mg/dL POC Glucose (mg/dL) 142 H 128 H (75-99) mg/dL Calcium (8.4-10.2) mg/dL Phosphorus (2.5-4.5) mg/dL Magnesium (1.6-2.3) mg/dL Total Bilirubin (0.2-1.3) mg/dL AST (17-59) U/L ALT (21-72) U/L Alkaline Phosphatase (38-126) U/L Total Protein (6.3-8.2) g/dL Albumin (3.5-5.0) g/dL Prealbumin (18.0-42.0) mg/dL 12/01/17 12/02/17 12/02/17 Range/Units 23:44 01:12 02:22 WBC (3.8-10.6) k/uL RBC (4.30-5.90) m/uL Hgb (13.0-17.5) gm/dL Hct (39.0-53.0) % RDW (11.5-15.5) % Plt Count (150-450) k/uL Neutrophils # (Manual) (1.3-7.7) k/uL Lymphocytes # (Manual) (1.0-4.8) k/uL Sodium (137-145) mmol/L Chloride (98-107) mmol/L BUN (9-20) mg/dL Creatinine (0.66-1.25) mg/dL Glucose (74-99) mg/dL POC Glucose (mg/dL) 112 H 114 H 124 H (75-99) mg/dL Calcium (8.4-10.2) mg/dL Phosphorus (2.5-4.5) mg/dL Magnesium (1.6-2.3) mg/dL Total Bilirubin (0.2-1.3) mg/dL AST (17-59) U/L ALT (21-72) U/L Alkaline Phosphatase (38-126) U/L Total Protein (6.3-8.2) g/dL Albumin (3.5-5.0) g/dL Prealbumin (18.0-42.0) mg/dL 12/02/17 12/02/17 12/02/17 Range/Units 04:19 04:26 04:26 WBC 12.4 H (3.8-10.6) k/uL RBC 2.69 L (4.30-5.90) m/uL Hgb 7.8 L (13.0-17.5) gm/dL Hct 24.6 L (39.0-53.0) % RDW 18.6 H (11.5-15.5) % Plt Count 123 L (150-450) k/uL Neutrophils # (Manual) 11.53 H (1.3-7.7) k/uL Lymphocytes # (Manual) 0.25 L (1.0-4.8) k/uL Sodium 151 H (137-145) mmol/L Chloride 119 H (98-107) mmol/L BUN 118 H* (9-20) mg/dL Creatinine 1.60 H (0.66-1.25) mg/dL Glucose 139 H (74-99) mg/dL POC Glucose (mg/dL) 150 H (75-99) mg/dL Calcium 7.8 L (8.4-10.2) mg/dL Phosphorus 4.7 H (2.5-4.5) mg/dL Magnesium 2.4 H (1.6-2.3) mg/dL Total Bilirubin 3.9 H (0.2-1.3) mg/dL AST 63 H (17-59) U/L ALT 131 H (21-72) U/L Alkaline Phosphatase 141 H (38-126) U/L Total Protein 5.0 L (6.3-8.2) g/dL Albumin 2.1 L (3.5-5.0) g/dL Prealbumin (18.0-42.0) mg/dL 12/02/17 12/02/17 Range/Units 06:53 08:20 WBC (3.8-10.6) k/uL RBC (4.30-5.90) m/uL Hgb (13.0-17.5) gm/dL Hct (39.0-53.0) % RDW (11.5-15.5) % Plt Count (150-450) k/uL Neutrophils # (Manual) (1.3-7.7) k/uL Lymphocytes # (Manual) (1.0-4.8) k/uL Sodium (137-145) mmol/L Chloride (98-107) mmol/L BUN (9-20) mg/dL Creatinine (0.66-1.25) mg/dL Glucose (74-99) mg/dL POC Glucose (mg/dL) 166 H 151 H (75-99) mg/dL Calcium (8.4-10.2) mg/dL Phosphorus (2.5-4.5) mg/dL Magnesium (1.6-2.3) mg/dL Total Bilirubin (0.2-1.3) mg/dL AST (17-59) U/L ALT (21-72) U/L Alkaline Phosphatase (38-126) U/L Total Protein (6.3-8.2) g/dL Albumin (3.5-5.0) g/dL Prealbumin (18.0-42.0) mg/dL - Imaging and Cardiology Chest x-ray: report reviewed, image reviewed Assessment and Plan (1) Congestive heart failure with cardiomyopathy Current Visit: Yes Status: Chronic Code(s): I50.9 - HEART FAILURE, UNSPECIFIED; I42.9 - CARDIOMYOPATHY, UNSPECIFIED SNOMED Code(s): 65652172 (2) Ischemic cardiomyopathy Current Visit: Yes Status: Chronic Code(s): I25.5 - ISCHEMIC CARDIOMYOPATHY SNOMED Code(s): 166835179 (3) Coronary artery disease Current Visit: Yes Status: Chronic Code(s): I25.10 - ATHSCL HEART DISEASE OF [place] CORONARY ARTERY W/O ANG PCTRS SNOMED Code(s): 19171507 (4) Diabetes mellitus Current Visit: Yes Status: Chronic Code(s): E11.9 - TYPE 2 DIABETES MELLITUS WITHOUT COMPLICATIONS SNOMED Code(s): 63678644 (5) Hyperlipidemia Current Visit: Yes Status: Chronic Code(s): E78.5 - HYPERLIPIDEMIA, UNSPECIFIED SNOMED Code(s): 60203667 (6) Mitral regurgitation Current Visit: Yes Status: Chronic Code(s): I34.0 - NONRHEUMATIC MITRAL ( VALVE) INSUFFICIENCY SNOMED Code(s): 26615660 (7) History of myocardial infarction Current Visit: No Status: Resolved Code(s): I25.2 - OLD MYOCARDIAL INFARCTION SNOMED Code(s): 461438991 (8) Tobacco dependence in remission Current Visit: No Status: Resolved Code(s): F17.201 - NICOTINE DEPENDENCE, UNSPECIFIED, IN REMISSION SNOMED Code(s): 947939416 Plan: 1. Continue low-dose aspirin, Plavix, statin, subcu heparin. 2. No oral meds being given right now as patient is on BiPAP and not swallowing. Dobbhoff placement attempted yesterday under endoscopy and unsuccessful. GI we will try again today under endoscopy. 3. Continue beta michelle. Lopressor being given IV push as patient is not swallowing oral meds. Will transition back to oral once Dobbhoff is placed. 4. Continue amiodarone for A. fib prophylaxis. 5. Continue Primacor at 0.2 mcg/kg/min. 6. Will restart tube feedings once Dobbhoff placed. D5W increased per nephrology. 7. D5W increased per nephrology. Will KVO and start free water flushes once Dobbhoff placed. 8. No nephrotoxic, hepatotoxic agents. 9. Keep Fong catheter for strict accurate intake and output. Fong catheter changed 11/27/17. 10. BiPAP management, bronchodilators per pulmonology. 11. Discontinue Precedex. 12. Will monitor daily labs and x-rays. No further blood transfusion at this point. 13. Agree with Kerri per pulmonology, sputum culture positive for Klebsiella oxytoca. Blood cultures, urine culture negative. 14. Pain control with current medication regimen. 15. GI/DVT prophylaxis. 16. Insulin drip/diabetic management per primary care service. 17. Continue full CODE STATUS. Primary care wishes to discuss the option of tracheostomy and PEG tube placement with the . 18. Continued recommendations based on patient's progress. Time with Patient: Greater than 30
[2017-12-02 10:39] LABS: Glucose,Whole Blood 164 mg/dL (75-99)
[2017-12-02] MEDS: MILRINONE-D5W PMX 20 MG in DEXTROSE/WATER 1 100ML.BAG IV SCH (10:40)
--- NOTE | 2017-12-02 11:30 | PN ---
PROGRESS NOTE This patient's electronic medical records were reviewed. The condition discussed with the cardiac nurse practitioner as well as the patient's nurse. Hemodynamically the patient remains stable. He is still on sedation because of the intermittent agitations and tachypnea. Heart rate is 90 to 100 per minute. Patient is in sinus rhythm. Respiratory rate is 36. Blood pressure is 100/60 mmHg. HEART: S1 and S2 heard. Lungs reveal bilateral diminished air entry. Chest x-ray does not show any significant left-sided heart failure. The patient's urine output was 1880 mL during the night. The patient's sodium is 151. Patient is now getting D5W at 80 mL/hour. Patient's overall prognosis still remains guarded. MMODL / IJN: [id number] /
[2017-12-02 12:10] LABS: Glucose,Whole Blood 148 mg/dL (75-99)
[2017-12-02] MEDS: INSULIN REGULAR 100 UNIT in SODIUM CHLORIDE 0.9% 100 ML IV SCH (12:10)
[2017-12-02 13:34] LABS: Glucose,Whole Blood 136 mg/dL (75-99)
[2017-12-02] MEDS ORDERED: Potassium Replacement Protocol 1 EACH MISC MISCELLANE PRN (13:42)
[2017-12-02 14:49] LABS: Glucose,Whole Blood 149 mg/dL (75-99)
[2017-12-02] MEDS ORDERED: POTASSIUM CHLORIDE 20 MEQ in WATER FOR INJECTION 1 100ML.BAG IVPB ONE (15:00)
--- NOTE | 2017-12-02 15:11 | P.PN ---
Subjective Progress Note Date: 12/02/17 This is a pleasant gentleman patient of Dr. Spann, newly established to the office to evaluate shortness of breath, dyspnea on exertion, underwent cardiac cath and found to have ischemic cardiomyopathy with severe LV dysfunction, triple-vessel disease prior to bypass surgery, admitted for bypass surgery and valve repair. He has underlying history of diabetes mellitus type 2, hyperlipidemia, Cardiac cath performed 11/09/2017 shows left main coronary up was calcified, circumflex 95% stenosis in the ostial portion, LAD totally occluded just of to the origin of the large diagonal branch, diagonal branch from the percent stenosis, 70% stenosis in the PDA and PLV severe left ventricle systolic dysfunction and mitral regurgitation He is currently in ICU being prepped for CABG and mitral valve repair on 2017 and has intra-aortic balloon pump done through the right femoral artery. 11/17: Patient is having open-heart surgery today. 11/18: Patient is status post quadruple coronary artery bypass grafting using the left internal mammary artery to the left anterior descending coronary artery, a reverse greater saphenous vein graft from the aorta to the diagonal coronary artery, reverse greater saphenous vein graft from the aorta to the first obtuse marginal coronary artery, a reverse greater saphenous vein graft from the aorta to the posterior descending coronary artery and mitral valve repair. Patient remains in the intensive care unit intubated and on mechanical ventilation currently on CPAP for weaning parameters. He continues to have intra-aortic balloon pump in place which is plan to keep for 1 more day. He has a right, left and mediastinal chest tubes in place draining serosanguineous fluid. Urine output is 50-60 mL per hour. He is also on vasopressors. Hemoglobin A1c is 6.7. 8: Patient remains in the intensive care unit. He is currently off oxygen and pulse oxing. He continues to have all [address] Balloon pump was removed. Urine output has been adequate. White count is normal. Hemoglobin 7.3, INR 1.5, creatinine 0.93, blood sugars are running between 104 and 127. He has been afebrile. Heart rate running in the 90s. Blood pressure is stable with current vasopressors. Pulse ox is 9700% on room air. Patient denies having any chest pain. No abdominal pain. No nausea. 84. Patient examined the bedside in the ICU. Currently off oxygen. He is not making enough urine output. Creatinine function has worsened from 0.8-1.2. Hemoglobin 7 this morning status post transfusion 1 unit PRBC. Patient is denies any chest pain, shortness of breath is resting comfortably in the chair. He still continues to have [address] with a AARON drain. Blood sugar between 100-125. 11/21 patient examined bedside in the ICU. Brief episode of atrial fibrillation last night and one dose of IV amiodarone given followed by a maintenance dose Afinitor on 400 mg twice a day. Creatinine increased to 1.8 today. Patient is having minimal urine output with less than 10 mL per hour. Patient may benefit from IV fluids as he has minimal oral intake and has minimal urine output. One bag of 250 mg abdomen given today. Patient received 2 units of PRBCs C yesterday. No bowel movements for the past 3 days. Patient is passing gas. Continue with bowel regimen 11/22: Patient hasn't been noted to have increasing renal numbers with BUN of 66 and creatinine 2.2 and nephrology has been consult did. Patient is also noted to have low urine output and dark urine. He is not eating very much. Patient is more lethargic today. He denies any abdominal pain. Heart rate is controlled in a sinus rhythm. He is currently on oral amiodarone and Lopressor for atrial fibrillation. No anticoagulation due to thrombocytopenia. He is currently off label fed but continued on Primacor. 11/23: Patient has been seen by hematology for thrombocytopenia secondary to shock liver and consumption. Fibrinogen to be checked. Patient be transfused if platelet count is less than 50,000. One dose of vitamin K was given for INR of 1.8 yesterday. INR today is at 2.5, platelet count 41. BUN 89, creatinine 2.30, AST 1470, ALT 721. Urinalysis is turbid, leukoesterase moderate, RBCs greater than 182, wbc's 37, Patient has also been seen by nephrology for acute kidney injury, acute tubular necrosis, oliguria. Recommendations to transfuse if hemoglobin is falls below 7.4 fluid bolus was attempted without improvement and patient was started on Lasix drip. Patient is also continued on Primacor. Urine output has been 35-75 mL per hour. Heart rate has been elevated in the low 100s. Patient has received calcium chloride 1 dose yesterday and repeat today. He was started on Midodrine 10 mg 3 times daily yesterday. He is more lethargic today. He has failed a swallow eval and speech therapy added. Patient has been started on Zoloft for depression but patient appears to be more acute delirium. Patient has been on and off norepinephrine as his blood pressures dropping into the 80 systolic when he sleeps. 11/24: Lasix drip has been discontinued. Patient has received 4 A of bicarbonate is on a bicarb drip. Patient is on levofed and vasopressin along with Primacor. He has received vitamin K and fresh frozen plasma. Urine output is 15-20 mL per hour. Central line was placed today requiring of fresh frozen plasma and vitamin K. There is concern for need of hemodialysis. Patient has diarrhea after having constipation and fecal management system has been placed. His mental status continued to decline yesterday and by this morning he was re -intubated. White count is increasing to 18.5, hemoglobin 7.1, platelet count 48. INR is 2.9, BUN 103, creatinine 3.17, phosphorus 7.5, magnesium 2.7, AST 1301, ALT 623. Total bilirubin is 5.8. Cortisol level was greater than 123. Patient will be resumed back on insulin drip due to hyperglycemia. Echocardiogram reveals EF of 40-45%, mild concentric left ventricular hypertrophy, and only mild gently dilated 34-39, moderate mitral stenosis, mild tricuspid regurgitation, mild pulmonary hypertension 11/25: Patient remains intubated and on mechanical ventilation. We resumed insulin drip yesterday. He remains on Levophed and milrinone. Renal function remains poor. 11/26: Patient remains in the intensive care unit, intubated and on mechanical ventilation. Patient has had good urine output. He remains on vasopressin, norepinephrine, insulin drip. BUN is 114 and creatinine 2.2, phosphorus 4.5, white count 14.6. Hemoglobin is 7. There are no orders for transfusion. INR is 1.7. Liver function tests are improving. Sputum culture showing gram- negative bacilli. 11/27: Patient continued to be intubated does not follow commands. Patient has developed atrial fibrillation and heart rate is currently controlled. Patient continued to require levo fed infusion at 6 mics per Per minute 11/28:Patient continued to be distended does not follow commands. Patient has developed atrial fibrillation and heart rate is currently controlled. Patient was following commands by squeezing his hand this morning but currently is off sedation but still not following commands patient is moving his head to the right than to the left spontaneously and currently still on full vent support 11/29: Patient remains intubated and on mechanical ventilation. He is currently being CPAP. He has been off vasopressors since over the weekend. He is also off midodrine. Patient started on hydralazine. He is more alert and able to squeeze his hands with direction. Left is noted to be stronger than the right. He has continued on Primacor and insulin. We have ordered one dose of Ferrlecit and he is scheduled for transfusion 1 unit of packed RBCs for hemoglobin of 6.9. Liver function tests are improving. BUN is 131 and creatinine 1.6. 11/30: Patient remains in intensive care unit intubated and on mechanical ventilation. He continues to be off vasopressors. He remains on Primacor. Urine output has been between 45 and 150 mL per hour. BUN 131 and creatinine 1.6. White count is down to 12.8, hemoglobin is now 8 after 1 unit of packed RBCs and he received Ferrlecit yesterday. White blood count is recovering now at 136. Liver function tests are all improving as well. Overall, patient is showing slow gradual improvement. Another dose of Ferrlecit has been ordered by nephrology. 12/01: Patient has been successfully extubated yesterday and now on BiPAP. Patient is currently on Precedex. He was placed on low-dose label fed and is currently being weaned. Central line and chest tube on the right to be removed today. White count is 13.7, hemoglobin 8.1, BUN 126 and creatinine 1.6. Capillary blood glucose running between 132 and 152. Her function tests continue to improve. 12/02: Patient remains in the intensive care unit. A Dobbhoff was attempted yesterday but was unsuccessful and to be retry today. Capillary blood glucose running between 149 and 164. White count is down to 12.4, hemoglobin is at 7.8. Renal function shows a BUN of 118 and creatinine 1.6. Liver function tests continue to improve slowly but are not back to normal range. Objective - Vital Signs Vital signs: Vital Signs Temp 97.9 F 12/02/17 08:00 Pulse 104 H 12/02/17 09:00 Resp 22 12/02/17 09:00 BP 101/58 12/01/17 16:00 Pulse Ox 95 12/02/17 09:00 Intake & Output 12/01/17 12/02/17 12/02/17 18:59 06:59 18:59 Intake Total 3253.391 6036.952 383.219 Output Total 1035 845 160 Balance 251.327 256.952 223.219 Weight 82.1 kg 84.2 kg Intake: IV 1180 1082 292 Calcium Chloride 1,000 mg 100 In Sodium Chloride 0.9% 100 ml @ 100 mls/hr IVPB ONCE STA Rx#:[id number] Dextrose 5% in Water 1, 500 650 130 000 ml @ 80 mls/hr IV . [id number] [facility] Rx#:[id number] KVO 220 260 Piperacillin-Tazobactam 3 100 50 .375 gm In Dextrose/Water 1 50ml.bag @ 12.5 mls/hr IVPB Q8HR [facility] Rx#: [id number] Potassium Chloride 20 meq 200 100 100 In Water For Injection 1 100ml.bag @ 50 mls/hr IVPB Q2H [facility] Rx#: [id number] Pressure Bags 60 72 12 Intake, IV Titration 106.327 19.952 91.219 Amount Dexmedetomidine 400 mcg 8.781 91.219 In Sodium Chloride 0.9% 100 ml @ 0.1 MCG/KG/HR 2. 05 mls/hr IV .Q24H [facility] Rx #:[id number] Insulin Regular 100 unit 5.218 11.171 In Sodium Chloride 0.9% 100 ml @ Per Protocol IV .Q0M [facility] Rx#:[id number] Milrinone-D5w Pmx 20 mg 77.278 In Dextrose/Water 1 100ml .bag @ 0.2 MCG/KG/MIN 4. 66 mls/hr IV .[id number] [facility] Rx#:[id number] Norepinephrin 16 mg-0.9% 23.831 0 Ns Pmx 16 mg In 250 ml @ Titrate IV .Q0M [facility] Rx#: [id number] Output: Chest Tube Drainage 10 right pleural 10 Urine 1025 845 160 Other: Voiding Method Indwelling Catheter Indwelling Catheter Indwelling Catheter ABP, PAP, CO, CI - Last Documented Arterial Blood Pressure 95/45 Pulmonary Artery Pressure 40/15 Cardiac Output 5.0 Cardiac Index 2.7 - Exam General appearance: average body habitus, cooperative, no acute distress - EENT Eyes: anicteric sclerae, EOMI, PERRLA, dentition normal, normal appearance no vision in the left eye blurring of the cornea with spelling ENT: NA/AT, normal oropharynx, intubated and on mechanical ventilation - Respiratory Respiratory: bilateral: CTA, negative: diminished, dullness, rales, rhonchi, wheezing, continues to have right pleural, left pleural chest tubes in place. - Cardiovascular Rhythm: Regularly irregular Heart sounds: normal: S1, S2 Abnormal Heart Sounds: no systolic murmur, no diastolic murmur, no rub, no S3 Gallop, no S4 Gallop, no click, no other - Gastrointestinal General gastrointestinal: normal bowel sounds, soft, Fong draining clear dark urine - Integumentary Integumentary: normal, normal turgor - Neurologic Neurologic: He will follow a few simple commands - Musculoskeletal Musculoskeletal: gait not assessed - Labs CBC & Chem 7: 12/02/17 04:26 12/02/17 12:00 Labs: Abnormal Lab Results - Last 24 Hours (Table) 12/01/17 12/01/17 12/01/17 Range/Units 05:00 10:52 12:38 WBC (3.8-10.6) k/uL RBC (4.30-5.90) m/uL Hgb (13.0-17.5) gm/dL Hct (39.0-53.0) % RDW (11.5-15.5) % Plt Count (150-450) k/uL Neutrophils # (Manual) (1.3-7.7) k/uL Lymphocytes # (Manual) (1.0-4.8) k/uL Sodium (137-145) mmol/L Chloride (98-107) mmol/L BUN (9-20) mg/dL Creatinine (0.66-1.25) mg/dL Glucose (74-99) mg/dL POC Glucose (mg/dL) 138 H 152 H (75-99) mg/dL Calcium (8.4-10.2) mg/dL Phosphorus (2.5-4.5) mg/dL Magnesium (1.6-2.3) mg/dL Total Bilirubin (0.2-1.3) mg/dL AST (17-59) U/L ALT (21-72) U/L Alkaline Phosphatase (38-126) U/L Total Protein (6.3-8.2) g/dL Albumin (3.5-5.0) g/dL Prealbumin <5.0 L (18.0-42.0) mg/dL 12/01/17 12/01/17 12/01/17 Range/Units 16:10 17:34 18:28 WBC (3.8-10.6) k/uL RBC (4.30-5.90) m/uL Hgb (13.0-17.5) gm/dL Hct (39.0-53.0) % RDW (11.5-15.5) % Plt Count (150-450) k/uL Neutrophils # (Manual) (1.3-7.7) k/uL Lymphocytes # (Manual) (1.0-4.8) k/uL Sodium (137-145) mmol/L Chloride (98-107) mmol/L BUN (9-20) mg/dL Creatinine (0.66-1.25) mg/dL Glucose (74-99) mg/dL POC Glucose (mg/dL) 157 H 162 H 163 H (75-99) mg/dL Calcium (8.4-10.2) mg/dL Phosphorus (2.5-4.5) mg/dL Magnesium (1.6-2.3) mg/dL Total Bilirubin (0.2-1.3) mg/dL AST (17-59) U/L ALT (21-72) U/L Alkaline Phosphatase (38-126) U/L Total Protein (6.3-8.2) g/dL Albumin (3.5-5.0) g/dL Prealbumin (18.0-42.0) mg/dL 12/01/17 12/01/17 12/01/17 Range/Units 18:30 20:45 22:35 WBC (3.8-10.6) k/uL RBC (4.30-5.90) m/uL Hgb (13.0-17.5) gm/dL Hct (39.0-53.0) % RDW (11.5-15.5) % Plt Count (150-450) k/uL Neutrophils # (Manual) (1.3-7.7) k/uL Lymphocytes # (Manual) (1.0-4.8) k/uL Sodium 152 H (137-145) mmol/L Chloride (98-107) mmol/L BUN (9-20) mg/dL Creatinine (0.66-1.25) mg/dL Glucose (74-99) mg/dL POC Glucose (mg/dL) 142 H 128 H (75-99) mg/dL Calcium (8.4-10.2) mg/dL Phosphorus (2.5-4.5) mg/dL Magnesium (1.6-2.3) mg/dL Total Bilirubin (0.2-1.3) mg/dL AST (17-59) U/L ALT (21-72) U/L Alkaline Phosphatase (38-126) U/L Total Protein (6.3-8.2) g/dL Albumin (3.5-5.0) g/dL Prealbumin (18.0-42.0) mg/dL 12/01/17 12/02/17 12/02/17 Range/Units 23:44 01:12 02:22 WBC (3.8-10.6) k/uL RBC (4.30-5.90) m/uL Hgb (13.0-17.5) gm/dL Hct (39.0-53.0) % RDW (11.5-15.5) % Plt Count (150-450) k/uL Neutrophils # (Manual) (1.3-7.7) k/uL Lymphocytes # (Manual) (1.0-4.8) k/uL Sodium (137-145) mmol/L Chloride (98-107) mmol/L BUN (9-20) mg/dL Creatinine (0.66-1.25) mg/dL Glucose (74-99) mg/dL POC Glucose (mg/dL) 112 H 114 H 124 H (75-99) mg/dL Calcium (8.4-10.2) mg/dL Phosphorus (2.5-4.5) mg/dL Magnesium (1.6-2.3) mg/dL Total Bilirubin (0.2-1.3) mg/dL AST (17-59) U/L ALT (21-72) U/L Alkaline Phosphatase (38-126) U/L Total Protein (6.3-8.2) g/dL Albumin (3.5-5.0) g/dL Prealbumin (18.0-42.0) mg/dL 12/02/17 12/02/17 12/02/17 Range/Units 04:19 04:26 04:26 WBC 12.4 H (3.8-10.6) k/uL RBC 2.69 L (4.30-5.90) m/uL Hgb 7.8 L (13.0-17.5) gm/dL Hct 24.6 L (39.0-53.0) % RDW 18.6 H (11.5-15.5) % Plt Count 123 L (150-450) k/uL Neutrophils # (Manual) 11.53 H (1.3-7.7) k/uL Lymphocytes # (Manual) 0.25 L (1.0-4.8) k/uL Sodium 151 H (137-145) mmol/L Chloride 119 H (98-107) mmol/L BUN 118 H* (9-20) mg/dL Creatinine 1.60 H (0.66-1.25) mg/dL Glucose 139 H (74-99) mg/dL POC Glucose (mg/dL) 150 H (75-99) mg/dL Calcium 7.8 L (8.4-10.2) mg/dL Phosphorus 4.7 H (2.5-4.5) mg/dL Magnesium 2.4 H (1.6-2.3) mg/dL Total Bilirubin 3.9 H (0.2-1.3) mg/dL AST 63 H (17-59) U/L ALT 131 H (21-72) U/L Alkaline Phosphatase 141 H (38-126) U/L Total Protein 5.0 L (6.3-8.2) g/dL Albumin 2.1 L (3.5-5.0) g/dL Prealbumin (18.0-42.0) mg/dL 12/02/17 12/02/17 Range/Units 06:53 08:20 WBC (3.8-10.6) k/uL RBC (4.30-5.90) m/uL Hgb (13.0-17.5) gm/dL Hct (39.0-53.0) % RDW (11.5-15.5) % Plt Count (150-450) k/uL Neutrophils # (Manual) (1.3-7.7) k/uL Lymphocytes # (Manual) (1.0-4.8) k/uL Sodium (137-145) mmol/L Chloride (98-107) mmol/L BUN (9-20) mg/dL Creatinine (0.66-1.25) mg/dL Glucose (74-99) mg/dL POC Glucose (mg/dL) 166 H 151 H (75-99) mg/dL Calcium (8.4-10.2) mg/dL Phosphorus (2.5-4.5) mg/dL Magnesium (1.6-2.3) mg/dL Total Bilirubin (0.2-1.3) mg/dL AST (17-59) U/L ALT (21-72) U/L Alkaline Phosphatase (38-126) U/L Total Protein (6.3-8.2) g/dL Albumin (3.5-5.0) g/dL Prealbumin (18.0-42.0) mg/dL Assessment and Plan Plan: (1) Coronary artery disease and moderate mitral valve regurgitation Triple vessel disease noted on cardiac cath agent status post CABG and mitral valve repair on all 11/17/2017. Continue on aspirin, metoprolol. ICU substance abuse technician Dr. Paul/Delonte on consult. Continue current management per cardio vascular surgery team (2) Ischemic cardiomyopathy Has impaired ejection fraction of 38%, along with congestive heart failure. (3) Congestive heart failure with cardiomyopathy Acute on chronic systolic and diastolic heart failure (4) Hyperlipidemia Patient currently not on statins (5) GI prophylaxis (6) DVT prophylaxis (7) Steal syndrome, subclavian Carotid Dopplers 11/10/2017 shows no carotid stenosis however there is to and fro flow within the right vertebral artery could reflect manifestation of subclavian steal physiology prior to with continuous flow reversal. Currently asymptomatic continue to monitor (8) Pulmonary hypertension PILAR on 11/10/2017, moderate pulmonary hypertension also shows intact atrial septum with no evidence of [id number] shunt physiology, unable to locate pressures for right ventricular systolic 9. Thrombocytopenia secondary to consumption. Numbers improved and patient has been resumed back on aspirin, Plavix. Consult with oncology appreciated. Recommendations for platelet transfusion if less than 50,000. 10. Anemia, secondary to a combination of acute blood loss and renal failure with drop in hemoglobin from 10-6.5. Patient is status post multiple blood products. Ferrlecit infusion. 11. Acute kidney injury, acute tubular necrosis, oliguric secondary to hypotension, hypoperfusion. Consult with nephrology appreciated. Off Lasix drip. Status post IV sodium bicarb and. 12. Post op atrial fibrillation, expected outcome of surgery. Patient has been on amiodarone and Lopressor. 13. Liver transaminitis and coagulopathy secondary to shock liver oncology consult appreciated. Continue to monitor closely. Statin resumed. 14. Depression, situational. Zoloft was subsequently discontinued. 15. Acute delirium secondary to acute illness. 16. Hyperglycemia without diabetes. Patient resumed on insulin drip. Hemoglobin A1c is 6.7. 17. Cardiorenal syndrome and cardiogenic shock requiring IV vasopressors. Vasopressors have been discontinued. 18. Diarrhea with possible acute GI bleed with acute blood loss anemia. Fecal management system was required. Stool for occult blood is positive. C diff toxin is negative 19. Acute hypoxic respiratory failure requiring reintubation and mechanical ventilation subsequently extubated. Heart no cyst guarded. Discharge plan: To be determined Impression and plan of care have been directed as dictated by the signing physician. Amy Renteria nurse practitioner acting as scribe for signing physician.
[2017-12-02] MEDS ORDERED: KETAMINE 10 MG/ML 20 ML VIAL ONE (15:30)
[2017-12-02] MEDS ORDERED: BENZOCAINE SPRAY 1 CAN TOPICAL STA (15:38)
[2017-12-02] MEDS ORDERED: PROPOFOL 100 ML IV ONE (15:55)
--- NOTE | 2017-12-02 16:34 | XR ---
EXAMINATION TYPE: XR chest 1V portable DATE OF EXAM: 12/02/2017 COMPARISON: December 02, 2017 HISTORY: SOB, Follow Up FINDINGS: Interval placement of endotracheal and NG tubes appropriately position. Progression of the perihilar and basilar infiltrates. Increasing pleural effusions left greater than right. Underlying cardiomegaly. IMPRESSION: 1. Progression of the perihilar and basilar infiltrates. Increasing pleural effusions left greater t merritt right.
--- NOTE | 2017-12-02 16:35 | XR ---
EXAMINATION TYPE: XR chest 1V portable DATE OF EXAM: 12/02/2017 COMPARISON: Today HISTORY: Intubation TECHNIQUE: Single frontal view of the chest is obtained. FINDINGS: Endotracheal tube is 5 cm from the daiana. Left-sided central venous catheter has tip over the right atrium. There is extensive opacification of the left hemithorax. There is blunting of righ t costophrenic angle. There are sternal wires. There are chest leads. IMPRESSION: Increasing pleural fluid and consolidation in the left lung compared to exam this mornin g. Endotracheal tube is in fairly good position. No heart failure.
[2017-12-02] MEDS ORDERED: DEXTROSE 5% IN WATER 100 ML with AMIODARONE 150 MG IV ONE (16:39)
[2017-12-02] MEDS: PROPOFOL 1,000 MG in EMPTY BAG 1 BAG IV SCH (16:41)
[2017-12-02 16:50] LABS: Glucose,Whole Blood 155 mg/dL (75-99)
--- NOTE | 2017-12-02 16:52 | P.PCN ---
Date of Procedure: 12/02/17 Description of Procedure: BRIEF HISTORY: Patient is a 72-year-old [id number], who has had a complicated medical course after recent cardiac surgery. The patient is currently in the ICU and the gastroenterology service was consulted to see the patient for placement of a Dobbhoff tube given concern over the patient's nutritional status as he had been unable to obtain adequate caloric intake. PROCEDURE PERFORMED: Esophagogastroduodenoscopy with attempted Dobbhoff placement PREOPERATIVE DIAGNOSIS: Severe protein calorie malnutrition, dysphagia IV sedation per anesthesia. PROCEDURE: After informed consent was obtained, the patient was brought into the endoscopy unit. IV sedation was administered by Anesthesia under continuous monitoring. Initially the Olympus GIF-180 video endoscope was inserted into the mouth. Esophagus intubated without any difficulty. It was gradually advanced into the stomach and duodenum and carefully examined. The bulb and the second part of the duodenum appeared normal. The scope at this time was withdrawn to the stomach, adequately insufflated with air, and upon careful examination, mucosa of the antrum, body, cardia and the fundus appeared normal. The scope was then withdrawn into the esophagus. The GE junction appeared unremarkable. There was significant bilious secretions noted throughout the examined portion of the GI tract which were suctioned vigorously to minimize chance of aspiration. The esophagus appeared normal. There were no erosions or ulcerations seen and the patient tolerated the procedure well. Dobbhoff placement was then attempted with tube advanced through the patient's left nare under endoscopic visualization. However during the procedure the patient's oxygen saturation began to fall and it was decided by the anesthesia team to intubate the patient. At this point the procedure was completed with the anesthesia staff indicating that they would place a Dobbhoff tube while the patient was intubated at a later time. IMPRESSION: 1. No abnormalities seen in the esophagus stomach or duodenum during EGD. 2. Dobbhoff placement not completed secondary to hypoxemia and subsequent intubation.. RECOMMENDATIONS: The findings of this examination were discussed with the medical team, and the patient will have placement of the Dobbhoff tube by the ICU staff at a later time. The gastroenterology team will stand by in the other questions or concerns arise please feel free to call us.
[2017-12-02 17:02] LABS: ABG HCO3 25 mmol/L (21-25); ABG PCO2 34 mmHg (35-45); ABG PH 7.47 (7.35-7.45); ABG PO2 211 mmHg (83-108); ABG TCO2 26 mmol/L (19-24)
[2017-12-02] MEDS: hydrALAZINE HCL 25 MG TAB PO SCH ×2 (17:34→21:59)
[2017-12-02] MEDS: AMIODARONE 200 MG TAB PO SCH (17:35)
[2017-12-02 18:19] LABS: Glucose,Whole Blood 157 mg/dL (75-99)
[2017-12-02] MEDS: SERTRALINE 25 MG TAB PO SCH (18:20)
[2017-12-02] MEDS: CLOPIDOGREL 75 MG TAB PO SCH (18:20)
[2017-12-02] MEDS: ASCORBIC ACID 500 MG TAB PO SCH ×2 (18:20→18:22)
[2017-12-02] MEDS: FERROUS SULFATE ORAL ELIXIR 300 MG/5 ML CUP PO SCH (18:21)
[2017-12-02 19:53] LABS: Glucose,Whole Blood 153 mg/dL (75-99)
[2017-12-02 20:37] LABS: Potassium 3.8 mmol/L (3.5-5.1)
[2017-12-02] MEDS: ERYTHROMYCIN 5 MG/GM OPHTH OINT 3.5 GM TUBE LEFT EYE SCH (20:38)
[2017-12-02] MEDS: prednisoLONE ACETATE 1% OPHTH DROPS 5 ML BTL LEFT EYE SCH (20:38)
[2017-12-02] MEDS: CHLORHEXIDINE GLUCONATE 15 ML CUP MUCOUS MEM SCH (20:38)
[2017-12-02] MEDS: ATORVASTATIN 40 MG TAB PO SCH (20:39)
[2017-12-02] MEDS: METOPROLOL TARTRATE 25 MG TAB PO SCH (20:40)
[2017-12-02] MEDS ORDERED: POTASSIUM BICARBONATE/CIT AC 20 MEQ TABLET.EFF NG-TUBE SCH (21:00)
[2017-12-02 21:53] LABS: Glucose,Whole Blood 151 mg/dL (75-99)
[2017-12-02 23:39] LABS: Glucose,Whole Blood 134 mg/dL (75-99)
[2017-12-03] MEDS: HEPARIN SODIUM,PORCINE 5,000 UNIT/ML 1 ML VIAL SQ SCH ×4 (00:05→23:08)
[2017-12-03] MEDS ORDERED: POTASSIUM BICARBONATE/CIT AC 20 MEQ TABLET.EFF NG-TUBE SCH (01:00)
[2017-12-03 02:04] LABS: Glucose,Whole Blood 177 mg/dL (75-99)
--- NOTE | 2017-12-03 02:38 | XR ---
EXAMINATION TYPE: XR chest 1V portable DATE OF EXAM: 12/03/2017 COMPARISON: Yesterday HISTORY: Check tube placement TECHNIQUE: Single frontal view of the chest is obtained. FINDINGS: Endotracheal tube is more than 11 cm from the daiana. There is pulmonary vascular congesti on. There is blunting of costophrenic angles. There are sternal wires. There is nasogastric tube note d. There is left-sided central venous catheter with tip over the mediastinum. IMPRESSION: Congestive heart failure with pleural effusions. Heart failure is unchanged. Endotrachea l tube is high and needs to be advanced 5 cm.
--- NOTE | 2017-12-03 02:40 | XR ---
EXAMINATION TYPE: XR chest 1V portable DATE OF EXAM: 12/03/2017 COMPARISON: Today HISTORY: Check tube placement TECHNIQUE: Single frontal view of the chest is obtained. FINDINGS: Endotracheal tube is 6 cm from the daiana. There is congestive heart failure without don e compared to last exam. Left subclavian catheter has tip in the superior vena cava. Nasogastric tube is in good position. IMPRESSION: Endotracheal tube is in fairly good position.
[2017-12-03 03:50] LABS: Glucose,Whole Blood 197 mg/dL (75-99)
[2017-12-03 04:07] LABS: Ionized Calcium 5.1 mg/dL (4.5-5.3)
[2017-12-03 04:16] LABS: Calcium 7.9 mg/dL (8.4-10.2); Magnesium 2.5 mg/dL (1.6-2.3); Phosphorus 4.1 mg/dL (2.5-4.5); Total Bilirubin 4.5 mg/dL (0.2-1.3)
[2017-12-03 04:18] LABS: Anisocytosis Slight; Basophils % (A) 0 %; Eosinophils % (A) 0 %; HCT 25.1 % (39.0-53.0); HGB 7.9 gm/dL (13.0-17.5); Hypochromasia Moderate; Lymphocytes # (A) 0.3 k/uL (1.0-4.8); Lymphocytes % (A) 2 %; MCH 29.2 pg (25.0-35.0); MCHC 31.5 g/dL (31.0-37.0); MCV 92.6 fL (80.0-100.0); Mean Platelet Volume 11.2; Monocytes # (A) 0.4 k/uL (0-1.0); Monocytes % (A) 2 %; Neutrophils % (A) 95 %; Platelet Count 144 k/uL (150-450); Poikilocytosis Slight; RBC 2.71 m/uL (4.30-5.90); WBC 16.9 k/uL (3.8-10.6)
[2017-12-03 04:37] LABS: ABG Base Excess 0.5 mmol/L; ABG HCO3 24 mmol/L (21-25); ABG Oxygen Saturation 96.4 % (94-97); ABG PCO2 32 mmHg (35-45); ABG PH 7.48 (7.35-7.45); ABG PO2 76 mmHg (83-108); ABG TCO2 25 mmol/L (19-24)
[2017-12-03] MEDS: PROPOFOL 1,000 MG in EMPTY BAG 1 BAG IV SCH ×2 (05:38→15:28)
[2017-12-03 05:49] LABS: Glucose,Whole Blood 228 mg/dL (75-99)
[2017-12-03] MEDS: IPRATROPIUM-ALBUTEROL 3 ML NEB INHALATION SCH ×4 (07:34→19:16)
[2017-12-03] MEDS: PIPERACILLIN-TAZOBACTAM 3.375 GM in DEXTROSE/WATER 1 50ML.BAG IVPB SCH ×4 (07:37→23:07)
--- NOTE | 2017-12-03 07:43 | P.PN ---
Subjective Progress Note Date: 18 Principal diagnosis: Triple-vessel coronary artery disease. Severe ischemic cardiomyopathy. Moderate mitral valve regurgitation. Mild tricuspid valve regurgitation. Diabetes mellitus with preoperative hemoglobin A1c 6.7%. Hyperlipidemia. Moderate to severe restrictive lung disease with preoperative FEV1 43% of predicted. Evidence of diffuse calcific coronary artery disease. 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 Previous tobacco dependence. POD #17 placement of preoperative intra-aortic balloon pump POD #16 quadruple coronary artery bypass grafting using the left internal mammary artery to the left anterior descending artery, reverse saphenous vein graft from the aorta to the diagonal artery, reverse saphenous vein graft from the aorta to the first obtuse marginal artery, reverse saphenous vein graft from the aorta to the posterior descending artery. Mitral valve repair using a complete ring annuloplasty with a 30 mm Kapoor IMR ring. Exclusion of the left atrial appendage using a 35 mm Atriclip. Intraoperative transesophageal echocardiogram and epi-aortic scanning. Intraoperative graft flow measurements using the [employer] system. Post operative normocytic, normochromic anemia, an expected outcome of surgery. Postoperative thrombocytopenia, an expected outcome of surgery. Postoperative atrial fibrillation, an expected outcome of surgery. Postoperative elevated transaminases, an unexpected outcome of surgery, likely secondary to low flow state post surgery. Postoperative acute kidney injury, an unexpected outcome of surgery, likely secondary to low flow state post surgery. Postoperative acute metabolic acidosis, lactic acidosis, reintubation, an unexpected outcome. Postoperative cardiogenic shock, an unexpected outcome. Postoperative hypernatremia, an unexpected outcome. Acute hypoxemic respiratory failure requiring a second reintubation, an unexpected outcome. Last night GI attempted to place a Dobbhoff for a second time without success. The patient became hypoxic and was reintubated urgently. Later that evening he did have an episode of significant hypotension, tachycardia, and hypoxemia. Medications were adjusted including levo being titrated as well as adjustment of the ET tube, currently patient is more hemodynamically stable with levo being weaned down. He is sedated with propofol. He remains on Primacor at 0.2 mcg/kg/min, levo is currently being weaned. His urine output was 30-60 ml/hr overnight. His BUN this morning is 111 from 118, creatinine is 1.71 up from 1.6 for the last 4 days. Sodium level is elevated to 152 from 151 yesterday, chloride is 121 from 119 yesterday. He is being tube fed at goal of 70 mL per hour with free water flushes of 300 mL every 6 hours. Liver enzymes continue to improve. Hemaglobin this morning is 7.9 from 7.8, transfusion of 1 unit packed red blood cells Wednesday. White blood cell count has increased 16.9 from 12.4, currently on zosyn with sputum culture growing Klebsiella oxytoca, platelet count has increased today to 144 from 123. He is sinus tach on telemetry with heart rate in the low 100s. He remains critical, prognosis is guarded. His has been updated daily. Objective - Vital Signs Vital signs: Vital Signs Temp 99.9 F H 12/03/17 00:15 Pulse 104 H 12/03/17 06:45 Resp 28 H 12/03/17 06:45 BP 100/61 12/02/17 17:00 Pulse Ox 100 12/03/17 06:45 Intake & Output 12/02/17 12/03/17 12/03/17 18:59 06:59 18:59 Intake Total 9972.354 7801.804 Output Total 830 735 Balance 910.816 2532.804 Weight 83.3 kg Intake: IV 906 282 Dextrose 5% in Water 1, 640 190 000 ml @ 40 mls/hr IV . Q24H JANNA Rx#:[id number] KVO 6 Piperacillin-Tazobactam 3 100 50 .375 gm In Dextrose/Water 1 50ml.bag @ 12.5 mls/hr IVPB Q8HR JANNA Rx#: [id number] Potassium Chloride 20 meq 100 In Water For Injection 1 100ml.bag @ 50 mls/hr IVPB Q2H JANNA Rx#: [id number] Pressure Bags 60 42 Intake, IV Titration 217.186 206.804 Amount Dexmedetomidine 400 mcg 91.219 In Sodium Chloride 0.9% 100 ml @ 0.1 MCG/KG/HR 2. 05 mls/hr IV .Q24H JANNA Rx #:[id number] Insulin Regular 100 unit 10.871 16.124 In Sodium Chloride 0.9% 100 ml @ Per Protocol IV .Q0M JANNA Rx#:[id number] Milrinone-D5w Pmx 20 mg 93.899 In Dextrose/Water 1 100ml .bag @ 0.2 MCG/KG/MIN 4. 66 mls/hr IV .[id number] JANNA Rx#:[id number] Norepinephrine 16 mg In 19.514 92.363 Dextrose 5% in Water 250 ml @ Titrate IV .Q0M JANNA Rx#:[id number] Propofol 1,000 mg In 1.683 98.317 Empty Bag 1 bag @ Titrate IV .Q0M JANNA Rx#: [id number] Oral 60 Tube Feeding 20 710 Other 600 Output: Urine 830 735 Other: Voiding Method Indwelling Catheter Indwelling Catheter # Bowel Movements 2 ABP, PAP, CO, CI - Last Documented Arterial Blood Pressure 132/45 Pulmonary Artery Pressure 40/15 Cardiac Output 5.0 Cardiac Index 2.7 - Constitutional Constitutional Comment(s): Currently intubated and sedated. General appearance: Present: no acute distress - Respiratory Details: Lungs sounds diminished bilaterally with scattered rhonchi. Respirations even, nonlabored on mechanical ventilation. Current settings assist control mode, FiO2 50%, tidal volume 500, respiratory rate 14, PEEP 5. ABGs this morning 7.48 /32/76/24/96%/0.5. 8.0 ET tube present, 24 at the lip. - Cardiovascular Details: S1, S2 present. Tachy but regular rate and rhythm, sinus tach on telemetry. Sternum stable. A/V epicardial pacemaker wires present, grounded. Palpable peripheral pulses bilaterally. Bilateral lower extremity, scrotal edema present. Right radial arterial line, left brachial PICC line present. Levo being titrated off, Primacor continues at 0.02 mcg/kg/min. Heart hugger, antiembolism stockings, SCDs present. - Gastrointestinal Gastrointestinal Comment(s): Abdomen soft, nontender, nondistended. Active bowel sounds present 4 quadrants. OG tube present. Vital tube feedings infusing at goal of 70 mL per hour with minimal residual. Positive bowel movement this morning. - Genitourinary Genitourinary Comment(s): Fong present draining clear yellow urine. Output 35-60 ml/hr overnight. - Integumentary Integumentary Comment(s): Skin warm and dry. Sternal incision well approximated and covered with dry intact dressing. Left lower extremity EVH site well approximated. Stage II pressure ulcer to coccyx, covered by Optisol foam dressing. - Neurologic Neurologic Comment(s): Currently sedated with propofol on mechanical ventilation. - Musculoskeletal Musculoskeletal: Present: generalized weakness - Allied health notes Allied health notes reviewed: nursing - Labs CBC & Chem 7: 12/03/17 03:53 12/03/17 03:53 Labs: Abnormal Lab Results - Last 24 Hours (Table) 12/01/17 12/02/17 12/02/17 Range/Units 05:00 08:20 10:38 WBC (3.8-10.6) k/uL RBC (4.30-5.90) m/uL Hgb (13.0-17.5) gm/dL Hct (39.0-53.0) % RDW (11.5-15.5) % Plt Count (150-450) k/uL Neutrophils # (1.3-7.7) k/uL Lymphocytes # (1.0-4.8) k/uL ABG pH (7.35-7.45) ABG pCO2 (35-45) mmHg ABG pO2 (83-108) mmHg ABG Total CO2 (19-24) mmol/L ABG O2 Saturation (94-97) % Sodium (137-145) mmol/L Chloride (98-107) mmol/L BUN (9-20) mg/dL Creatinine (0.66-1.25) mg/dL Glucose (74-99) mg/dL POC Glucose (mg/dL) 151 H 164 H (75-99) mg/dL Calcium (8.4-10.2) mg/dL Magnesium (1.6-2.3) mg/dL Total Bilirubin (0.2-1.3) mg/dL AST (17-59) U/L ALT (21-72) U/L Alkaline Phosphatase (38-126) U/L Total Protein (6.3-8.2) g/dL Albumin (3.5-5.0) g/dL Prealbumin <5.0 L (18.0-42.0) mg/dL 12/02/17 12/02/17 12/02/17 Range/Units 12:01 13:33 14:47 WBC (3.8-10.6) k/uL RBC (4.30-5.90) m/uL Hgb (13.0-17.5) gm/dL Hct (39.0-53.0) % RDW (11.5-15.5) % Plt Count (150-450) k/uL Neutrophils # (1.3-7.7) k/uL Lymphocytes # (1.0-4.8) k/uL ABG pH (7.35-7.45) ABG pCO2 (35-45) mmHg ABG pO2 (83-108) mmHg ABG Total CO2 (19-24) mmol/L ABG O2 Saturation (94-97) % Sodium (137-145) mmol/L Chloride (98-107) mmol/L BUN (9-20) mg/dL Creatinine (0.66-1.25) mg/dL Glucose (74-99) mg/dL POC Glucose (mg/dL) 148 H 136 H 149 H (75-99) mg/dL Calcium (8.4-10.2) mg/dL Magnesium (1.6-2.3) mg/dL Total Bilirubin (0.2-1.3) mg/dL AST (17-59) U/L ALT (21-72) U/L Alkaline Phosphatase (38-126) U/L Total Protein (6.3-8.2) g/dL Albumin (3.5-5.0) g/dL Prealbumin (18.0-42.0) mg/dL 12/02/17 12/02/17 12/02/17 Range/Units 16:38 17:00 18:17 WBC (3.8-10.6) k/uL RBC (4.30-5.90) m/uL Hgb (13.0-17.5) gm/dL Hct (39.0-53.0) % RDW (11.5-15.5) % Plt Count (150-450) k/uL Neutrophils # (1.3-7.7) k/uL Lymphocytes # (1.0-4.8) k/uL ABG pH 7.47 H (7.35-7.45) ABG pCO2 34 L (35-45) mmHg ABG pO2 211 H (83-108) mmHg ABG Total CO2 26 H (19-24) mmol/L ABG O2 Saturation 100.0 H (94-97) % Sodium (137-145) mmol/L Chloride (98-107) mmol/L BUN (9-20) mg/dL Creatinine (0.66-1.25) mg/dL Glucose (74-99) mg/dL POC Glucose (mg/dL) 155 H 157 H (75-99) mg/dL Calcium (8.4-10.2) mg/dL Magnesium (1.6-2.3) mg/dL Total Bilirubin (0.2-1.3) mg/dL AST (17-59) U/L ALT (21-72) U/L Alkaline Phosphatase (38-126) U/L Total Protein (6.3-8.2) g/dL Albumin (3.5-5.0) g/dL Prealbumin (18.0-42.0) mg/dL 12/02/17 12/02/17 12/02/17 Range/Units 19:49 19:52 21:51 WBC (3.8-10.6) k/uL RBC (4.30-5.90) m/uL Hgb (13.0-17.5) gm/dL Hct (39.0-53.0) % RDW (11.5-15.5) % Plt Count (150-450) k/uL Neutrophils # (1.3-7.7) k/uL Lymphocytes # (1.0-4.8) k/uL ABG pH (7.35-7.45) ABG pCO2 (35-45) mmHg ABG pO2 (83-108) mmHg ABG Total CO2 (19-24) mmol/L ABG O2 Saturation (94-97) % Sodium 151 H (137-145) mmol/L Chloride (98-107) mmol/L BUN (9-20) mg/dL Creatinine (0.66-1.25) mg/dL Glucose (74-99) mg/dL POC Glucose (mg/dL) 153 H 151 H (75-99) mg/dL Calcium (8.4-10.2) mg/dL Magnesium (1.6-2.3) mg/dL Total Bilirubin (0.2-1.3) mg/dL AST (17-59) U/L ALT (21-72) U/L Alkaline Phosphatase (38-126) U/L Total Protein (6.3-8.2) g/dL Albumin (3.5-5.0) g/dL Prealbumin (18.0-42.0) mg/dL 12/02/17 12/03/17 12/03/17 Range/Units 23:35 02:01 03:47 WBC (3.8-10.6) k/uL RBC (4.30-5.90) m/uL Hgb (13.0-17.5) gm/dL Hct (39.0-53.0) % RDW (11.5-15.5) % Plt Count (150-450) k/uL Neutrophils # (1.3-7.7) k/uL Lymphocytes # (1.0-4.8) k/uL ABG pH (7.35-7.45) ABG pCO2 (35-45) mmHg ABG pO2 (83-108) mmHg ABG Total CO2 (19-24) mmol/L ABG O2 Saturation (94-97) % Sodium (137-145) mmol/L Chloride (98-107) mmol/L BUN (9-20) mg/dL Creatinine (0.66-1.25) mg/dL Glucose (74-99) mg/dL POC Glucose (mg/dL) 134 H 177 H 197 H (75-99) mg/dL Calcium (8.4-10.2) mg/dL Magnesium (1.6-2.3) mg/dL Total Bilirubin (0.2-1.3) mg/dL AST (17-59) U/L ALT (21-72) U/L Alkaline Phosphatase (38-126) U/L Total Protein (6.3-8.2) g/dL Albumin (3.5-5.0) g/dL Prealbumin (18.0-42.0) mg/dL 12/03/17 12/03/17 12/03/17 Range/Units 03:53 03:53 04:34 WBC 16.9 H (3.8-10.6) k/uL RBC 2.71 L (4.30-5.90) m/uL Hgb 7.9 L (13.0-17.5) gm/dL Hct 25.1 L (39.0-53.0) % RDW 19.0 H (11.5-15.5) % Plt Count 144 L (150-450) k/uL Neutrophils # 16.0 H (1.3-7.7) k/uL Lymphocytes # 0.3 L (1.0-4.8) k/uL ABG pH 7.48 H (7.35-7.45) ABG pCO2 32 L (35-45) mmHg ABG pO2 76 L (83-108) mmHg ABG Total CO2 25 H (19-24) mmol/L ABG O2 Saturation (94-97) % Sodium 152 H (137-145) mmol/L Chloride 121 H* (98-107) mmol/L BUN 111 H* (9-20) mg/dL Creatinine 1.71 H (0.66-1.25) mg/dL Glucose 187 H (74-99) mg/dL POC Glucose (mg/dL) (75-99) mg/dL Calcium 7.9 L (8.4-10.2) mg/dL Magnesium 2.5 H (1.6-2.3) mg/dL Total Bilirubin 4.5 H (0.2-1.3) mg/dL AST 71 H (17-59) U/L ALT 115 H (21-72) U/L Alkaline Phosphatase 158 H (38-126) U/L Total Protein 5.0 L (6.3-8.2) g/dL Albumin 2.0 L (3.5-5.0) g/dL Prealbumin (18.0-42.0) mg/dL 12/03/17 Range/Units 05:47 WBC (3.8-10.6) k/uL RBC (4.30-5.90) m/uL Hgb (13.0-17.5) gm/dL Hct (39.0-53.0) % RDW (11.5-15.5) % Plt Count (150-450) k/uL Neutrophils # (1.3-7.7) k/uL Lymphocytes # (1.0-4.8) k/uL ABG pH (7.35-7.45) ABG pCO2 (35-45) mmHg ABG pO2 (83-108) mmHg ABG Total CO2 (19-24) mmol/L ABG O2 Saturation (94-97) % Sodium (137-145) mmol/L Chloride (98-107) mmol/L BUN (9-20) mg/dL Creatinine (0.66-1.25) mg/dL Glucose (74-99) mg/dL POC Glucose (mg/dL) 228 H (75-99) mg/dL Calcium (8.4-10.2) mg/dL Magnesium (1.6-2.3) mg/dL Total Bilirubin (0.2-1.3) mg/dL AST (17-59) U/L ALT (21-72) U/L Alkaline Phosphatase (38-126) U/L Total Protein (6.3-8.2) g/dL Albumin (3.5-5.0) g/dL Prealbumin (18.0-42.0) mg/dL - Imaging and Cardiology Chest x-ray: report reviewed, image reviewed Assessment and Plan (1) Congestive heart failure with cardiomyopathy Current Visit: Yes Status: Chronic Code(s): I50.9 - HEART FAILURE, UNSPECIFIED; I42.9 - CARDIOMYOPATHY, UNSPECIFIED SNOMED Code(s): 28258316 (2) Ischemic cardiomyopathy Current Visit: Yes Status: Chronic Code(s): I25.5 - ISCHEMIC CARDIOMYOPATHY SNOMED Code(s): 156446819 (3) Coronary artery disease Current Visit: Yes Status: Chronic Code(s): I25.10 - ATHSCL HEART DISEASE OF [place] CORONARY ARTERY W/O ANG PCTRS SNOMED Code(s): 40701578 (4) Diabetes mellitus Current Visit: Yes Status: Chronic Code(s): E11.9 - TYPE 2 DIABETES MELLITUS WITHOUT COMPLICATIONS SNOMED Code(s): 26422031 (5) Hyperlipidemia Current Visit: Yes Status: Chronic Code(s): E78.5 - HYPERLIPIDEMIA, UNSPECIFIED SNOMED Code(s): 17640442 (6) Mitral regurgitation Current Visit: Yes Status: Chronic Code(s): I34.0 - NONRHEUMATIC MITRAL ( VALVE) INSUFFICIENCY SNOMED Code(s): 05632310 (7) History of myocardial infarction Current Visit: No Status: Resolved Code(s): I25.2 - OLD MYOCARDIAL INFARCTION SNOMED Code(s): 354477832 (8) Tobacco dependence in remission Current Visit: No Status: Resolved Code(s): F17.201 - NICOTINE DEPENDENCE, UNSPECIFIED, IN REMISSION SNOMED Code(s): 966359733 Plan: 1. Continue low-dose aspirin, Plavix, statin, subcu heparin, beta michelle. 2. Continue amiodarone for A. fib prophylaxis. 3. Continue Primacor at 0.2 mcg/kg/min. 4. Continue to feedings per dietitian's recommendations. Monitor for residuals. 5. D5W increased. Continue free water flushes 300 mL every 6 hours per nephrology recommendations. 6. Wean levo as tolerated. Wean propofol as tolerated. Patient had no sedation and tolerated well the last 2 days he was on a ventilator. 7. No nephrotoxic, hepatotoxic agents. 8. Keep Fong catheter for strict accurate intake and output. Fong catheter changed 11/27/17. 9. Ventilator management, bronchodilators per pulmonology. 10. Will monitor daily labs and x-rays. No further blood transfusion at this point. 11. Agree with Gabriellan per pulmonology, sputum culture positive for Klebsiella oxytoca. Blood cultures, urine culture negative. 12. Pain control with current medication regimen. 13. GI/DVT prophylaxis. 14. Insulin drip/diabetic management per primary care service. 15. Will add infectious disease consult for continued leukocytosis, hypotension with new onset low grade fever. 16. Continue full CODE STATUS. 17. Continued recommendations based on patient's progress. Time with Patient: Greater than 30
[2017-12-03] MEDS ORDERED: CALCIUM CHLORIDE 1,000 MG in SODIUM CHLORIDE 0.9% 100 ML IVPB STA (07:45)
[2017-12-03 07:50] LABS: Glucose,Whole Blood 240 mg/dL (75-99)
[2017-12-03] MEDS: ASCORBIC ACID 500 MG TAB PO SCH ×2 (07:57→16:38)
[2017-12-03] MEDS: FERROUS SULFATE ORAL ELIXIR 300 MG/5 ML CUP PO SCH ×2 (07:57→16:38)
[2017-12-03] MEDS: AMIODARONE 200 MG TAB PO SCH (07:58)
[2017-12-03] MEDS: ASPIRIN 325 MG TAB PO SCH (07:59)
[2017-12-03] MEDS: CHLORHEXIDINE GLUCONATE 15 ML CUP MUCOUS MEM SCH ×2 (07:59→20:30)
[2017-12-03] MEDS: hydrALAZINE HCL 25 MG TAB PO SCH ×2 (08:00→20:31)
[2017-12-03] MEDS: METOPROLOL TARTRATE 25 MG TAB PO SCH ×2 (08:00→19:17)
[2017-12-03] MEDS: CLOPIDOGREL 75 MG TAB PO SCH (08:00)
[2017-12-03] MEDS: PANTOPRAZOLE 40 MG/10 ML VIAL IVP SCH (08:01)
[2017-12-03] MEDS: SERTRALINE 25 MG TAB PO SCH (08:01)
--- NOTE | 2017-12-03 09:51 | P.PN ---
Subjective Progress Note Date: 12/03/17 Principal diagnosis: Respiratory failure status post bypass grafting postop day #11 status post mitral valve repair, postop day #11 Progress note dated 11/29/2017 72-year-old male who is postop day #11, status post bypass grafting and mitral valve repair. He also has a history of shock, cardiomyopathy, diabetes mellitus , mitral regurgitation, history of remote nicotine dependence postoperative anemia diabetic retinopathy acute hepatocellular injury acute kidney injury ischemic colitis thrombocytopenia, chronic atrial fibrillation and hypoxemic respiratory failure. The patient currently is on the ventilator and the volume control plus mode. Vent settings include the assist control mode rate of 14, tidal volume 500 FiO2 35% PEEP of 5. PO2 was 149 pCO2 was 37 and pH of 7.46. The patient's currently not on any sedation. I switch him over to PSV of 13 CPAP of 5. Currently he is on IV Primacor 0.2 mics per kilogram per minute, insulin at 2.5 units an hour saline IV KVO and vital high protein at 42 with a goal of 42 mL an hour. The patient was admitted on the had a surgery on November 17 was extubated initially on the and reintubated on November 24. We did drop his FiO2 from 35-30% given a PaO2 of 149. Chest x-ray shows possible changes as well as a right-sided pleural effusion. Relatively small. Progress note dated 11/30/2017 72-year-old male postop day #12, status post bypass grafting and mitral valve repair. The patient also has a history of shock, cardiomyopathy, diabetes mellitus, mitral regurgitation, remote nicotine dependence, postoperative anemia , diabetic retinopathy, hepatocellular injury, acute kidney injury, ischemic colitis, thrombocytopenia, chronic atrial fibrillation and hypoxemic respiratory failure. The patient currently is on the ventilator. The mode is volume assist control with a rate of 14, tidal volume 500, FiO2 30% and PEEP of 5. On those settings, the blood gases show a PaO2 of 107 pCO2 of 34 and a pH of 7.49. The patient is receiving a saline IV at 10 mL an hour Primacor 0.2 g insulin at 3.5 units an hour and vital 1.2 at 62 with a goal of 62 mL an hour. The patient spent about 7 hours on PSV 13 and CPAP of 5 yesterday. We cannot extubate him because the patient had did not have a cuff leak. We did add Decadron to the regimen at 6 mg every 6 hours 4 doses. The chest x-ray stable. Her labs are stable. White count is 12.8 hemoglobin 8 hematocrit 24.2 platelet count 136,000. Sodium 146 potassium 3.8 chloride is 113 CO2 26 anion gap normal BUN and creatinine are 131 and 1.6. His mental status is still not great. He has open his eyes. His stare is blank. Doesn't really follow commands well. This may be the limiting factor in terms of him being extubated. Progress note dated 12/01/2017 72-year-old male, postoperative day #13, is post bypass grafting and mitral valve repair. The patient has a history of cardiomyopathy shock liver diabetes mellitus mitral regurgitation remote nicotine dependence postoperative anemia that retinopathy acute kidney injury ischemic colitis thrombocytopenia chronic atrial fibrillation and hypoxemic respiratory failure. I was able to extubate the patient yesterday. We had to extubate him to BiPAP therapy. In addition, the patient needed sedation in the form of dexmedetomidine. Subsequently, the patient developed hypotension. He had some fluid boluses and then he required norepinephrine at 3 mcg/m. Remains on Primacor 0.2 g, dexmedetomidine 0.6, and insulin at 1 unit per hour. His IV is dextrose half-normal saline at 50 mL an hour. His BiPAP settings included IPAP of 12, EPAP of 5 and 40%. He is still not really with it mentally. He does have a blank stare on his face. Seemed to respond minimally. I don't think this is she changed that much. Chest x-ray and Lyme panel shows a touch of fluid overload with some bibasilar atelectasis and small effusions. Progress note dated 12/02/2017 72-year-old male, postop day #14, status post bypass grafting and mitral valve repair. The patient has a history of cardiomyopathy shock liver diabetes mitral regurgitation remote nicotine dependence postoperative anemia acute kidney injury ischemic colitis thrombocytopenia chronic atrial fibrillation and hypoxemic respiratory failure. The patient has recently had a difficult time being extubated. I was able to extubate him on November 30. The patient currently remains on BiPAP with an EPAP of 5 and an IPAP of 12. The FiO2 is 40% . Currently, the norepinephrine has been turned off. It was previously running at 2 mcg/m. He remains on Primacor at 0.2 mics dexmedetomidine at 0.4 g insulin at 1.5 units an hour dextrose at 50 mL an hour and a saline IV at 20 mL an hour. Attempts at placing a Dobbhoff tube yesterday were unsuccessful. The patient's mental status remains poor. He does not is set up and down the seems to understand when you speak to him but does have a blank stare on his face. Progress note dated 12/03/2017 72-year-old male, postoperative day #15, status post bypass grafting and mitral valve repair. The patient has a history of multiple medical problems. Recently , he was extubated and doing reasonably well. Unfortunately, yesterday, while attempting to place a Dobbhoff tube, the tube ended up in the lung and the patient developed acute respiratory failure and had to be reintubated at about 4 :30 PM yesterday. The tube was attempted to be placed by gastroenterology. Anyway, the patient back on the volume assist control mode with a rate of 22 tidal volume of 450. FiO2 is 50% and PEEP of 5. Arterial blood gases show a PaO2 of 76 a PaCO2 of 32 and a pH 7.48. Gases consistent with a relative hypoxemia and a respiratory alkalosis. The patient is on Primacor at 0.2 mcg/kg /m, propofol at 15 mcg/kg/m, norepinephrine at 2.5 mcg/m dextrose at 40 mL an hour insulin drip at 2.5 units per hour vital high protein 1.2 at 70 with a goal of 70 mL an hour. Apparently, the patient and the family has decided against tracheostomy and PEG tube in my plan for this patient would be to get him to the point of improvement and hopefully extubation again with the idea that he would not be reintubated. I believe he was reintubated again yesterday only because of the complication from the Dobbhoff tube being placed in the right lung. Objective - Vital Signs Vital signs: Vital Signs Temp 99.9 F H 12/03/17 00:15 Pulse 100 12/03/17 08:04 Resp 28 H 12/03/17 06:45 BP 100/61 12/02/17 17:00 Pulse Ox 100 12/03/17 06:45 Intake & Output 12/02/17 12/03/17 12/03/17 18:59 06:59 18:59 Intake Total 3338.742 3421.804 65.688 Output Total 830 735 Balance 991.160 5610.804 65.688 Weight 83.3 kg Intake: IV 906 282 Dextrose 5% in Water 1, 640 190 000 ml @ 40 mls/hr IV . Q24H JANNA Rx#:[id number] KVO 6 Piperacillin-Tazobactam 3 100 50 .375 gm In Dextrose/Water 1 50ml.bag @ 12.5 mls/hr IVPB Q8HR JANNA Rx#: [id number] Potassium Chloride 20 meq 100 In Water For Injection 1 100ml.bag @ 50 mls/hr IVPB Q2H JANNA Rx#: [id number] Pressure Bags 60 42 Intake, IV Titration 217.186 206.804 65.688 Amount Dexmedetomidine 400 mcg 91.219 In Sodium Chloride 0.9% 100 ml @ 0.1 MCG/KG/HR 2. 05 mls/hr IV .Q24H JANNA Rx #:[id number] Insulin Regular 100 unit 10.871 16.124 5.082 In Sodium Chloride 0.9% 100 ml @ Per Protocol IV .Q0M JANNA Rx#:[id number] Milrinone-D5w Pmx 20 mg 93.899 In Dextrose/Water 1 100ml .bag @ 0.2 MCG/KG/MIN 4. 66 mls/hr IV .[id number] JANNA Rx#:[id number] Norepinephrine 16 mg In 19.514 92.363 22.822 Dextrose 5% in Water 250 ml @ Titrate IV .Q0M JANNA Rx#:[id number] Propofol 1,000 mg In 1.683 98.317 37.784 Empty Bag 1 bag @ Titrate IV .Q0M JANNA Rx#: [id number] Oral 60 Tube Feeding 20 710 Other 600 Output: Urine 830 735 Other: Voiding Method Indwelling Catheter Indwelling Catheter # Bowel Movements 2 ABP, PAP, CO, CI - Last Documented Arterial Blood Pressure 132/45 Pulmonary Artery Pressure 40/15 Cardiac Output 5.0 Cardiac Index 2.7 - Exam No acute distress, sedated with propofol, intubated, with an NG tube in place also. HEENT examination is grossly unremarkable. Mucous membranes are moist. Neck supple. Full range of motion. No adenopathy thyromegaly or neck vein distention. Cardiovascular examination reveals irregular rhythm rate. S1-S2 normal. No S3 or S4. No discernible murmur noted. Heart sounds are distant. Heart sounds are very distant. Lungs reveal scattered diffuse rhonchi. Breath sounds equal. No crackles. No wheezes. Difficult to assess breath sounds is patient does not take deep breaths. Abdomen soft, bowel sounds are heard. No masses or tenderness. Extremities are intact. No cyanosis clubbing or edema. Skin is without rash or lesion. Neurologic examination is difficult to assess. - Labs CBC & Chem 7: 12/03/17 03:53 12/03/17 03:53 Labs: Abnormal Lab Results - Last 24 Hours (Table) 12/02/17 12/02/17 12/02/17 Range/Units 10:38 12:01 13:33 WBC (3.8-10.6) k/uL RBC (4.30-5.90) m/uL Hgb (13.0-17.5) gm/dL Hct (39.0-53.0) % RDW (11.5-15.5) % Plt Count (150-450) k/uL Neutrophils # (1.3-7.7) k/uL Lymphocytes # (1.0-4.8) k/uL ABG pH (7.35-7.45) ABG pCO2 (35-45) mmHg ABG pO2 (83-108) mmHg ABG Total CO2 (19-24) mmol/L ABG O2 Saturation (94-97) % Sodium (137-145) mmol/L Chloride (98-107) mmol/L BUN (9-20) mg/dL Creatinine (0.66-1.25) mg/dL Glucose (74-99) mg/dL POC Glucose (mg/dL) 164 H 148 H 136 H (75-99) mg/dL Calcium (8.4-10.2) mg/dL Magnesium (1.6-2.3) mg/dL Total Bilirubin (0.2-1.3) mg/dL AST (17-59) U/L ALT (21-72) U/L Alkaline Phosphatase (38-126) U/L Total Protein (6.3-8.2) g/dL Albumin (3.5-5.0) g/dL 12/02/17 12/02/17 12/02/17 Range/Units 14:47 16:38 17:00 WBC (3.8-10.6) k/uL RBC (4.30-5.90) m/uL Hgb (13.0-17.5) gm/dL Hct (39.0-53.0) % RDW (11.5-15.5) % Plt Count (150-450) k/uL Neutrophils # (1.3-7.7) k/uL Lymphocytes # (1.0-4.8) k/uL ABG pH 7.47 H (7.35-7.45) ABG pCO2 34 L (35-45) mmHg ABG pO2 211 H (83-108) mmHg ABG Total CO2 26 H (19-24) mmol/L ABG O2 Saturation 100.0 H (94-97) % Sodium (137-145) mmol/L Chloride (98-107) mmol/L BUN (9-20) mg/dL Creatinine (0.66-1.25) mg/dL Glucose (74-99) mg/dL POC Glucose (mg/dL) 149 H 155 H (75-99) mg/dL Calcium (8.4-10.2) mg/dL Magnesium (1.6-2.3) mg/dL Total Bilirubin (0.2-1.3) mg/dL AST (17-59) U/L ALT (21-72) U/L Alkaline Phosphatase (38-126) U/L Total Protein (6.3-8.2) g/dL Albumin (3.5-5.0) g/dL 12/02/17 12/02/17 12/02/17 Range/Units 18:17 19:49 19:52 WBC (3.8-10.6) k/uL RBC (4.30-5.90) m/uL Hgb (13.0-17.5) gm/dL Hct (39.0-53.0) % RDW (11.5-15.5) % Plt Count (150-450) k/uL Neutrophils # (1.3-7.7) k/uL Lymphocytes # (1.0-4.8) k/uL ABG pH (7.35-7.45) ABG pCO2 (35-45) mmHg ABG pO2 (83-108) mmHg ABG Total CO2 (19-24) mmol/L ABG O2 Saturation (94-97) % Sodium 151 H (137-145) mmol/L Chloride (98-107) mmol/L BUN (9-20) mg/dL Creatinine (0.66-1.25) mg/dL Glucose (74-99) mg/dL POC Glucose (mg/dL) 157 H 153 H (75-99) mg/dL Calcium (8.4-10.2) mg/dL Magnesium (1.6-2.3) mg/dL Total Bilirubin (0.2-1.3) mg/dL AST (17-59) U/L ALT (21-72) U/L Alkaline Phosphatase (38-126) U/L Total Protein (6.3-8.2) g/dL Albumin (3.5-5.0) g/dL 12/02/17 12/02/17 12/03/17 Range/Units 21:51 23:35 02:01 WBC (3.8-10.6) k/uL RBC (4.30-5.90) m/uL Hgb (13.0-17.5) gm/dL Hct (39.0-53.0) % RDW (11.5-15.5) % Plt Count (150-450) k/uL Neutrophils # (1.3-7.7) k/uL Lymphocytes # (1.0-4.8) k/uL ABG pH (7.35-7.45) ABG pCO2 (35-45) mmHg ABG pO2 (83-108) mmHg ABG Total CO2 (19-24) mmol/L ABG O2 Saturation (94-97) % Sodium (137-145) mmol/L Chloride (98-107) mmol/L BUN (9-20) mg/dL Creatinine (0.66-1.25) mg/dL Glucose (74-99) mg/dL POC Glucose (mg/dL) 151 H 134 H 177 H (75-99) mg/dL Calcium (8.4-10.2) mg/dL Magnesium (1.6-2.3) mg/dL Total Bilirubin (0.2-1.3) mg/dL AST (17-59) U/L ALT (21-72) U/L Alkaline Phosphatase (38-126) U/L Total Protein (6.3-8.2) g/dL Albumin (3.5-5.0) g/dL 12/03/17 12/03/17 12/03/17 Range/Units 03:47 03:53 03:53 WBC 16.9 H (3.8-10.6) k/uL RBC 2.71 L (4.30-5.90) m/uL Hgb 7.9 L (13.0-17.5) gm/dL Hct 25.1 L (39.0-53.0) % RDW 19.0 H (11.5-15.5) % Plt Count 144 L (150-450) k/uL Neutrophils # 16.0 H (1.3-7.7) k/uL Lymphocytes # 0.3 L (1.0-4.8) k/uL ABG pH (7.35-7.45) ABG pCO2 (35-45) mmHg ABG pO2 (83-108) mmHg ABG Total CO2 (19-24) mmol/L ABG O2 Saturation (94-97) % Sodium 152 H (137-145) mmol/L Chloride 121 H* (98-107) mmol/L BUN 111 H* (9-20) mg/dL Creatinine 1.71 H (0.66-1.25) mg/dL Glucose 187 H (74-99) mg/dL POC Glucose (mg/dL) 197 H (75-99) mg/dL Calcium 7.9 L (8.4-10.2) mg/dL Magnesium 2.5 H (1.6-2.3) mg/dL Total Bilirubin 4.5 H (0.2-1.3) mg/dL AST 71 H (17-59) U/L ALT 115 H (21-72) U/L Alkaline Phosphatase 158 H (38-126) U/L Total Protein 5.0 L (6.3-8.2) g/dL Albumin 2.0 L (3.5-5.0) g/dL 12/03/17 12/03/17 12/03/17 Range/Units 04:34 05:47 07:48 WBC (3.8-10.6) k/uL RBC (4.30-5.90) m/uL Hgb (13.0-17.5) gm/dL Hct (39.0-53.0) % RDW (11.5-15.5) % Plt Count (150-450) k/uL Neutrophils # (1.3-7.7) k/uL Lymphocytes # (1.0-4.8) k/uL ABG pH 7.48 H (7.35-7.45) ABG pCO2 32 L (35-45) mmHg ABG pO2 76 L (83-108) mmHg ABG Total CO2 25 H (19-24) mmol/L ABG O2 Saturation (94-97) % Sodium (137-145) mmol/L Chloride (98-107) mmol/L BUN (9-20) mg/dL Creatinine (0.66-1.25) mg/dL Glucose (74-99) mg/dL POC Glucose (mg/dL) 228 H 240 H (75-99) mg/dL Calcium (8.4-10.2) mg/dL Magnesium (1.6-2.3) mg/dL Total Bilirubin (0.2-1.3) mg/dL AST (17-59) U/L ALT (21-72) U/L Alkaline Phosphatase (38-126) U/L Total Protein (6.3-8.2) g/dL Albumin (3.5-5.0) g/dL Assessment and Plan Assessment: Assessment Status post bypass grafting, postop day #15 Status post reintubation on December 02 secondary to misplacement of Dobbhoff feeding tube. Postoperative ventilator management, with failure to wean, status post extubation to BiPAP therapy on 11/30/2017 Status post initial extubation on November 18 and reintubation on November 24. Postop day #15, status post mitral valve repair for mitral regurgitation Ischemic cardiomyopathy Type 2 diabetes mellitus History of kidney nicotine dependence Postoperative anemia Diabetic retinopathy Shock liver Acute kidney injury Ischemic colitis Thrombocytopenia Chronic atrial fibrillation Acute hypoxemic respiratory failure Plan: Plan dated 11/29/2017 The patient's labs and x-rays are all reviewed. Medications are reviewed. The patient will be switched over to pressure support of 13 and CPAP of 5. We'll drop the FiO2 down to 30%. I'll repeat a blood gas in one hour. The patient's chest x-ray shows a right-sided pleural effusion. The patient was initially extubated on November 18 and reintubated on November 24. The patient remains on IV Primacor insulin drip at [facility] fluids and is being nourished vital high protein at goal. Blood gases are reasonable. PaO2 of 149 PaCO2 37 and a pH of 7.46. The patient's currently not on any sedation. We'll attempt to wean him if possible. White count is 17.4 hemoglobin 6.9 hematocrit 22.0 platelet count 106 ,000. Sodium is 147 potassium 3.8 chloride is 113 and CO2 is 26 BUN and creatinine are 131 and 1.0. AST 123 ALT 212 alkaline phosphatase 204. Total bilirubin is 3.7. Sputum from November showed Klebsiella oxytoca. Arterial blood gases will be repeated in one hour. The patient needs additional water flushes given the increasing sodium and chloride levels. Prognosis is guarded. Critical care time 38 minutes Plan dated 11/30/2017 The patient's labs and x-rays are reviewed. Chest x-ray remains very similar to yesterday's chest x-ray. The patient will be placed back on pressure support and CPAP. Would consider weaning parameters blood gas and a cuff leak. Yesterday, the patient did not have a cuff leak. We added Decadron 6 mg every 6 hours for 4 doses. The patient's medications are reviewed. I'm hoping that we can get the patient towards extubation here in either today or tomorrow. Additional recommendations and suggestions are forthcoming. Prognosis is guarded. The patient remains on appropriate medications. The case was discussed with cardiothoracic surgery. Critical care time 33 minutes Plan dated 12/01/2017 The patient's labs x-rays a medications are reviewed. Chest x-ray my opinion shows just some mild fluid overload with some bibasilar atelectasis and small effusions. The patient remains on a number of medications including Primacor, norepinephrine, Precedex, and insulin. The patient's mental status in my opinion is still poor. His white count is 13.7 hemoglobin 8.1 hematocrit 25.0 platelet count 138,000. Sodium 149 potassium 3.5 chloride 117 CO2 is 26 BUN and creatinine were 126 and 1.60. His liver enzymes are elevated at 93 and 161 respectively. This was for the AST and ALT. Bilirubin 3.5. Albumin 2.3. Sputum was positive back on November 24 for Klebsiella oxytoca medications are reviewed. Prognosis is guarded. Critical care time 34 minutes Plan dated 12/02/2017 The patient's labs x-rays a medications are all reviewed. The chest x-ray my opinion continues to show a fluid overload. There was small effusions and some bibasilar atelectasis. The patient remains on BiPAP at 12 and 5 and 40%. Norepinephrine has been weaned off. The patient remains on Primacor and Precedex. I like to be able to wean the Precedex off. The patient remains on an insulin drip at 1.5 units an hour. The patient is also getting some basic IV fluids. The patient's overall prognosis remains extremely poor. White count is 12.4, hemoglobin 7.8, hematocrit 24.6 and platelet count 123,000. Sodium 151 potassium 3.5 chloride is 119 CO2 24 anion gap is normal and BUN and creatinine is 118 and 1.60. The rest of the comprehensive metabolic profile is evaluated. Critical care time is 34 minutes. Plan dated 12/03/2017 The patient remains on Primacor, propofol, norepinephrine, insulin, and dextrose IV. The patient is being nourished enterally. The patient patient's vent settings were changed slightly. Rate was increased to 22 and tidal volume was dropped to 450. Arterial blood gases show a relative hypoxemia and a mild respiratory alkalosis. White count of 16.9 hemoglobin 7.9 hematocrit 25.1 and platelet count 144,000. Sodium 152 potassium 4 chloride 121 CO2 23 BUN and creatinine of 111 and 1.71. The rest of the labs are reviewed. Chest x-ray shows diffuse bilateral infiltrates with small effusions. Medications are reviewed. Prognosis is very guarded. Apparently, the patient did not want a tracheostomy or a feeding tube done prior to surgery. Critical care time 32 minutes Time with Patient: Greater than 30
[2017-12-03 10:26] LABS: Glucose,Whole Blood 236 mg/dL (75-99)
[2017-12-03] MEDS: MILRINONE-D5W PMX 20 MG in DEXTROSE/WATER 1 100ML.BAG IV SCH (10:28)
--- NOTE | 2017-12-03 11:20 | P.PN ---
Subjective Patient is seen in follow-up for acute kidney injury. Creatinine was greater than 3 on admission and has been stable at 1.6 past 3 days - 1.7 today. Patient underwent CABG and mitral valve repair this admission. Ejection fraction is 30-35%. Hemoglobin 6.9 on 11/29 s/p pRBC transfusion - hgb 7.9 today. He is off vasopressors at this time. He is nonoliguric. Patient went into respiratory distress after attempted Dobbhoff placement yesterday and had to be reintubated. Vital signs are stable. General: The patient appeared well nourished and normally developed. HEENT: Head exam is unremarkable. Neck is without jugular venous distension. LUNGS: Breath sounds decreased. HEART: Rate and Rhythm are regular. First and second heart sounds normal. No murmurs, rubs or gallops. ABDOMEN: Abdominal exam reveals normal bowel sounds. Non-tender and non- distended. No evidence of peritonitis. EXTREMITITES: Trace edema. Objective - Vital Signs Vital signs: Vital Signs Temp 99.4 F 12/03/17 08:00 Pulse 85 12/03/17 10:30 Resp 33 H 12/03/17 10:30 BP 100/61 12/02/17 17:00 Pulse Ox 99 12/03/17 10:30 Intake & Output 12/02/17 12/03/17 12/03/17 18:59 06:59 18:59 Intake Total 4159.259 7480.804 864.292 Output Total 830 735 325 Balance 274.608 4926.804 539.292 Weight 83.3 kg 83.3 kg Intake: IV 906 282 179 Dextrose 5% in Water 1, 640 190 120 000 ml @ 40 mls/hr IV . Q24H [facility] Rx#:[id number] KVO 6 Piperacillin-Tazobactam 3 100 50 50 .375 gm In Dextrose/Water 1 50ml.bag @ 12.5 mls/hr IVPB Q8HR [facility] Rx#: [id number] Potassium Chloride 20 meq 100 In Water For Injection 1 100ml.bag @ 50 mls/hr IVPB Q2H [facility] Rx#: [id number] Pressure Bags 60 42 9 Intake, IV Titration 217.186 206.804 295.292 Amount Calcium Chloride 1,000 mg 100 In Sodium Chloride 0.9% 100 ml @ 100 mls/hr IVPB ONCE STA Rx#:[id number] Dexmedetomidine 400 mcg 91.219 In Sodium Chloride 0.9% 100 ml @ 0.1 MCG/KG/HR 2. 05 mls/hr IV .Q24H [facility] Rx #:[id number] Insulin Regular 100 unit 10.871 16.124 17.037 In Sodium Chloride 0.9% 100 ml @ Per Protocol IV .Q0M [facility] Rx#:[id number] Milrinone-D5w Pmx 20 mg 93.899 100 In Dextrose/Water 1 100ml .bag @ 0.2 MCG/KG/MIN 4. 66 mls/hr IV .[id number] [facility] Rx#:[id number] Norepinephrine 16 mg In 19.514 92.363 22.822 Dextrose 5% in Water 250 ml @ Titrate IV .Q0M [facility] Rx#:[id number] Propofol 1,000 mg In 1.683 98.317 55.433 Empty Bag 1 bag @ Titrate IV .Q0M [facility] Rx#: [id number] Oral 60 180 Tube Feeding 20 710 210 Other 600 Output: Urine 830 735 325 Other: Voiding Method Indwelling Catheter Indwelling Catheter Indwelling Catheter # Bowel Movements 2 1 ABP, PAP, CO, CI - Last Documented Arterial Blood Pressure 107/40 Pulmonary Artery Pressure 40/15 Cardiac Output 5.0 Cardiac Index 2.7 - Labs CBC & Chem 7: 12/03/17 03:53 12/03/17 03:53 Labs: Abnormal Lab Results - Last 24 Hours (Table) 12/02/17 12/02/17 12/02/17 Range/Units 12:01 13:33 14:47 WBC (3.8-10.6) k/uL RBC (4.30-5.90) m/uL Hgb (13.0-17.5) gm/dL Hct (39.0-53.0) % RDW (11.5-15.5) % Plt Count (150-450) k/uL Neutrophils # (1.3-7.7) k/uL Lymphocytes # (1.0-4.8) k/uL ABG pH (7.35-7.45) ABG pCO2 (35-45) mmHg ABG pO2 (83-108) mmHg ABG Total CO2 (19-24) mmol/L ABG O2 Saturation (94-97) % Sodium (137-145) mmol/L Chloride (98-107) mmol/L BUN (9-20) mg/dL Creatinine (0.66-1.25) mg/dL Glucose (74-99) mg/dL POC Glucose (mg/dL) 148 H 136 H 149 H (75-99) mg/dL Calcium (8.4-10.2) mg/dL Magnesium (1.6-2.3) mg/dL Total Bilirubin (0.2-1.3) mg/dL AST (17-59) U/L ALT (21-72) U/L Alkaline Phosphatase (38-126) U/L Total Protein (6.3-8.2) g/dL Albumin (3.5-5.0) g/dL 12/02/17 12/02/17 12/02/17 Range/Units 16:38 17:00 18:17 WBC (3.8-10.6) k/uL RBC (4.30-5.90) m/uL Hgb (13.0-17.5) gm/dL Hct (39.0-53.0) % RDW (11.5-15.5) % Plt Count (150-450) k/uL Neutrophils # (1.3-7.7) k/uL Lymphocytes # (1.0-4.8) k/uL ABG pH 7.47 H (7.35-7.45) ABG pCO2 34 L (35-45) mmHg ABG pO2 211 H (83-108) mmHg ABG Total CO2 26 H (19-24) mmol/L ABG O2 Saturation 100.0 H (94-97) % Sodium (137-145) mmol/L Chloride (98-107) mmol/L BUN (9-20) mg/dL Creatinine (0.66-1.25) mg/dL Glucose (74-99) mg/dL POC Glucose (mg/dL) 155 H 157 H (75-99) mg/dL Calcium (8.4-10.2) mg/dL Magnesium (1.6-2.3) mg/dL Total Bilirubin (0.2-1.3) mg/dL AST (17-59) U/L ALT (21-72) U/L Alkaline Phosphatase (38-126) U/L Total Protein (6.3-8.2) g/dL Albumin (3.5-5.0) g/dL 12/02/17 12/02/17 12/02/17 Range/Units 19:49 19:52 21:51 WBC (3.8-10.6) k/uL RBC (4.30-5.90) m/uL Hgb (13.0-17.5) gm/dL Hct (39.0-53.0) % RDW (11.5-15.5) % Plt Count (150-450) k/uL Neutrophils # (1.3-7.7) k/uL Lymphocytes # (1.0-4.8) k/uL ABG pH (7.35-7.45) ABG pCO2 (35-45) mmHg ABG pO2 (83-108) mmHg ABG Total CO2 (19-24) mmol/L ABG O2 Saturation (94-97) % Sodium 151 H (137-145) mmol/L Chloride (98-107) mmol/L BUN (9-20) mg/dL Creatinine (0.66-1.25) mg/dL Glucose (74-99) mg/dL POC Glucose (mg/dL) 153 H 151 H (75-99) mg/dL Calcium (8.4-10.2) mg/dL Magnesium (1.6-2.3) mg/dL Total Bilirubin (0.2-1.3) mg/dL AST (17-59) U/L ALT (21-72) U/L Alkaline Phosphatase (38-126) U/L Total Protein (6.3-8.2) g/dL Albumin (3.5-5.0) g/dL 12/02/17 12/03/17 12/03/17 Range/Units 23:35 02:01 03:47 WBC (3.8-10.6) k/uL RBC (4.30-5.90) m/uL Hgb (13.0-17.5) gm/dL Hct (39.0-53.0) % RDW (11.5-15.5) % Plt Count (150-450) k/uL Neutrophils # (1.3-7.7) k/uL Lymphocytes # (1.0-4.8) k/uL ABG pH (7.35-7.45) ABG pCO2 (35-45) mmHg ABG pO2 (83-108) mmHg ABG Total CO2 (19-24) mmol/L ABG O2 Saturation (94-97) % Sodium (137-145) mmol/L Chloride (98-107) mmol/L BUN (9-20) mg/dL Creatinine (0.66-1.25) mg/dL Glucose (74-99) mg/dL POC Glucose (mg/dL) 134 H 177 H 197 H (75-99) mg/dL Calcium (8.4-10.2) mg/dL Magnesium (1.6-2.3) mg/dL Total Bilirubin (0.2-1.3) mg/dL AST (17-59) U/L ALT (21-72) U/L Alkaline Phosphatase (38-126) U/L Total Protein (6.3-8.2) g/dL Albumin (3.5-5.0) g/dL 12/03/17 12/03/17 12/03/17 Range/Units 03:53 03:53 04:34 WBC 16.9 H (3.8-10.6) k/uL RBC 2.71 L (4.30-5.90) m/uL Hgb 7.9 L (13.0-17.5) gm/dL Hct 25.1 L (39.0-53.0) % RDW 19.0 H (11.5-15.5) % Plt Count 144 L (150-450) k/uL Neutrophils # 16.0 H (1.3-7.7) k/uL Lymphocytes # 0.3 L (1.0-4.8) k/uL ABG pH 7.48 H (7.35-7.45) ABG pCO2 32 L (35-45) mmHg ABG pO2 76 L (83-108) mmHg ABG Total CO2 25 H (19-24) mmol/L ABG O2 Saturation (94-97) % Sodium 152 H (137-145) mmol/L Chloride 121 H* (98-107) mmol/L BUN 111 H* (9-20) mg/dL Creatinine 1.71 H (0.66-1.25) mg/dL Glucose 187 H (74-99) mg/dL POC Glucose (mg/dL) (75-99) mg/dL Calcium 7.9 L (8.4-10.2) mg/dL Magnesium 2.5 H (1.6-2.3) mg/dL Total Bilirubin 4.5 H (0.2-1.3) mg/dL AST 71 H (17-59) U/L ALT 115 H (21-72) U/L Alkaline Phosphatase 158 H (38-126) U/L Total Protein 5.0 L (6.3-8.2) g/dL Albumin 2.0 L (3.5-5.0) g/dL 12/03/17 12/03/17 12/03/17 Range/Units 05:47 07:48 10:24 WBC (3.8-10.6) k/uL RBC (4.30-5.90) m/uL Hgb (13.0-17.5) gm/dL Hct (39.0-53.0) % RDW (11.5-15.5) % Plt Count (150-450) k/uL Neutrophils # (1.3-7.7) k/uL Lymphocytes # (1.0-4.8) k/uL ABG pH (7.35-7.45) ABG pCO2 (35-45) mmHg ABG pO2 (83-108) mmHg ABG Total CO2 (19-24) mmol/L ABG O2 Saturation (94-97) % Sodium (137-145) mmol/L Chloride (98-107) mmol/L BUN (9-20) mg/dL Creatinine (0.66-1.25) mg/dL Glucose (74-99) mg/dL POC Glucose (mg/dL) 228 H 240 H 236 H (75-99) mg/dL Calcium (8.4-10.2) mg/dL Magnesium (1.6-2.3) mg/dL Total Bilirubin (0.2-1.3) mg/dL AST (17-59) U/L ALT (21-72) U/L Alkaline Phosphatase (38-126) U/L Total Protein (6.3-8.2) g/dL Albumin (3.5-5.0) g/dL Assessment and Plan Plan: Assessment: 1. Nonoliguric acute kidney injury secondary to ATN secondary to hemodynamic instability/post CABG. Renal function improved since admission with creatinine stable at 1.6 past few days - 1.71 today. Baseline creatinine is 1. 2. Status post CABG and mitral valve repair. 3. Systolic CHF with ejection fraction of 30-35%. 4. Anemia status post blood transfusion this admission. Hgb 7.9 today. Severe iron deficiency noted. Status post 2 doses of IV iron. 5. Hypotension now off Levophed. Cortisol level 29. 6. Hypernatremia from lack of oral water intake. Sodium 152 today. 7. Acute hypoxic respiratory failure currently on ventilator support. Plan: Discontinue D5W. Increase free water flushes to 400 mL every 4 hours with tube feeds. Repeat sodium level this evening. Avoid nephrotoxins. Continue to monitor renal function and urine output.
[2017-12-03 12:04] LABS: Glucose,Whole Blood 250 mg/dL (75-99)
--- NOTE | 2017-12-03 12:34 | PN ---
PROGRESS NOTE This patient's electronic medical records and the hemodynamics and vital signs over the last 24 hours were reviewed. The patient became hypoxic yesterday while attempt was placed to put the feeding tube in. The patient needed to be intubated. Patient currently remains intubated. The patient is in the normal sinus rhythm. Heart rate is 85 per minute. Respiratory rate is 28 to 32. Blood pressure is 107/52 mmHg. First and second heart sounds are normal. Lungs reveal bilateral scattered wheezes. FINAL IMPRESSION: This patient remains stable cardiac sneed without any significant problem with arrhythmia. Blood pressure has been maintained. We will recommend to continue the current medications and now follow p.r.n. Please call us if patient has any significant cardiology problem. MMODL / IJN: [id number] /
--- NOTE | 2017-12-03 12:39 | P.PCN ---
Date of Procedure: 12/03/17 Preoperative Diagnosis: ventilator dependency Postoperative Diagnosis: same Procedure(s) Performed: Insertion of a Dobhoff tube Implants: dobhoff Anesthesia: none Surgeon: Lanie Borjas Pathology: none sent Disposition: no change Indications for Procedure: ventilator dependency. needs nutritional support Operative Findings: none Description of Procedure: The Dobhoff tube was advanced after lubrication via the R nare into the stomach without difficulty. Extra slack was left. Air test confirmed gastric position. CXR showed an intra-gastric tube with extra-slack.
--- NOTE | 2017-12-03 12:48 | XR ---
EXAMINATION TYPE: XR abdomen 1V DATE OF EXAM: 12/03/2017 COMPARISON: NONE HISTORY: Dobbhoff tube placement TECHNIQUE: One view abdominal series. Exam is limited due to only the upper margin of the abdomen dem onstrated on the image. FINDINGS: The osseous structures are intact. The bowel gas pattern is nonspecific. Bilateral consolidation and pleural effusion seen. There are 2 tube seen extending into the abdomen overlying the body of the st omach. Suggestion of epicardial lead. IMPRESSION: 1. Dobbhoff tube is seen with the tip overlying the region of the gastric body.
[2017-12-03] MEDS: MIDODRINE 5 MG TAB PO SCH ×2 (13:19→16:37)
[2017-12-03 13:24] LABS: Glucose,Whole Blood 216 mg/dL (75-99)
[2017-12-03 14:02] LABS: Glucose,Whole Blood 208 mg/dL (75-99)
--- NOTE | 2017-12-03 14:16 | P.PN ---
Subjective Progress Note Date: 12/03/17 This is a pleasant gentleman patient of Dr. Spann, newly established to the office to evaluate shortness of breath, dyspnea on exertion, underwent cardiac cath and found to have ischemic cardiomyopathy with severe LV dysfunction, triple-vessel disease prior to bypass surgery, admitted for bypass surgery and valve repair. He has underlying history of diabetes mellitus type 2, hyperlipidemia, Cardiac cath performed 11/09/2017 shows left main coronary up was calcified, circumflex 95% stenosis in the ostial portion, LAD totally occluded just of to the origin of the large diagonal branch, diagonal branch from the percent stenosis, 70% stenosis in the PDA and PLV severe left ventricle systolic dysfunction and mitral regurgitation He is currently in ICU being prepped for CABG and mitral valve repair on 2017 and has intra-aortic balloon pump done through the right femoral artery. 11/17: Patient is having open-heart surgery today. 11/18: Patient is status post quadruple coronary artery bypass grafting using the left internal mammary artery to the left anterior descending coronary artery, a reverse greater saphenous vein graft from the aorta to the diagonal coronary artery, reverse greater saphenous vein graft from the aorta to the first obtuse marginal coronary artery, a reverse greater saphenous vein graft from the aorta to the posterior descending coronary artery and mitral valve repair. Patient remains in the intensive care unit intubated and on mechanical ventilation currently on CPAP for weaning parameters. He continues to have intra-aortic balloon pump in place which is plan to keep for 1 more day. He has a right, left and mediastinal chest tubes in place draining serosanguineous fluid. Urine output is 50-60 mL per hour. He is also on vasopressors. Hemoglobin A1c is 6.7. 8: Patient remains in the intensive care unit. He is currently off oxygen and pulse oxing. He continues to have all [address] Balloon pump was removed. Urine output has been adequate. White count is normal. Hemoglobin 7.3, INR 1.5, creatinine 0.93, blood sugars are running between 104 and 127. He has been afebrile. Heart rate running in the 90s. Blood pressure is stable with current vasopressors. Pulse ox is 9700% on room air. Patient denies having any chest pain. No abdominal pain. No nausea. 84. Patient examined the bedside in the ICU. Currently off oxygen. He is not making enough urine output. Creatinine function has worsened from 0.8-1.2. Hemoglobin 7 this morning status post transfusion 1 unit PRBC. Patient is denies any chest pain, shortness of breath is resting comfortably in the chair. He still continues to have [address] with a AARON drain. Blood sugar between 100-125. 11/21 patient examined bedside in the ICU. Brief episode of atrial fibrillation last night and one dose of IV amiodarone given followed by a maintenance dose Afinitor on 400 mg twice a day. Creatinine increased to 1.8 today. Patient is having minimal urine output with less than 10 mL per hour. Patient may benefit from IV fluids as he has minimal oral intake and has minimal urine output. One bag of 250 mg abdomen given today. Patient received 2 units of PRBCs C yesterday. No bowel movements for the past 3 days. Patient is passing gas. Continue with bowel regimen 11/22: Patient hasn't been noted to have increasing renal numbers with BUN of 66 and creatinine 2.2 and nephrology has been consult did. Patient is also noted to have low urine output and dark urine. He is not eating very much. Patient is more lethargic today. He denies any abdominal pain. Heart rate is controlled in a sinus rhythm. He is currently on oral amiodarone and Lopressor for atrial fibrillation. No anticoagulation due to thrombocytopenia. He is currently off label fed but continued on Primacor. 11/23: Patient has been seen by hematology for thrombocytopenia secondary to shock liver and consumption. Fibrinogen to be checked. Patient be transfused if platelet count is less than 50,000. One dose of vitamin K was given for INR of 1.8 yesterday. INR today is at 2.5, platelet count 41. BUN 89, creatinine 2.30, AST 1470, ALT 721. Urinalysis is turbid, leukoesterase moderate, RBCs greater than 182, wbc's 37, Patient has also been seen by nephrology for acute kidney injury, acute tubular necrosis, oliguria. Recommendations to transfuse if hemoglobin is falls below 7.4 fluid bolus was attempted without improvement and patient was started on Lasix drip. Patient is also continued on Primacor. Urine output has been 35-75 mL per hour. Heart rate has been elevated in the low 100s. Patient has received calcium chloride 1 dose yesterday and repeat today. He was started on Midodrine 10 mg 3 times daily yesterday. He is more lethargic today. He has failed a swallow eval and speech therapy added. Patient has been started on Zoloft for depression but patient appears to be more acute delirium. Patient has been on and off norepinephrine as his blood pressures dropping into the 80 systolic when he sleeps. 11/24: Lasix drip has been discontinued. Patient has received 4 A of bicarbonate is on a bicarb drip. Patient is on levofed and vasopressin along with Primacor. He has received vitamin K and fresh frozen plasma. Urine output is 15-20 mL per hour. Central line was placed today requiring of fresh frozen plasma and vitamin K. There is concern for need of hemodialysis. Patient has diarrhea after having constipation and fecal management system has been placed. His mental status continued to decline yesterday and by this morning he was re -intubated. White count is increasing to 18.5, hemoglobin 7.1, platelet count 48. INR is 2.9, BUN 103, creatinine 3.17, phosphorus 7.5, magnesium 2.7, AST 1301, ALT 623. Total bilirubin is 5.8. Cortisol level was greater than 123. Patient will be resumed back on insulin drip due to hyperglycemia. Echocardiogram reveals EF of 40-45%, mild concentric left ventricular hypertrophy, and only mild gently dilated 34-39, moderate mitral stenosis, mild tricuspid regurgitation, mild pulmonary hypertension 11/25: Patient remains intubated and on mechanical ventilation. We resumed insulin drip yesterday. He remains on Levophed and milrinone. Renal function remains poor. 11/26: Patient remains in the intensive care unit, intubated and on mechanical ventilation. Patient has had good urine output. He remains on vasopressin, norepinephrine, insulin drip. BUN is 114 and creatinine 2.2, phosphorus 4.5, white count 14.6. Hemoglobin is 7. There are no orders for transfusion. INR is 1.7. Liver function tests are improving. Sputum culture showing gram- negative bacilli. 11/27: Patient continued to be intubated does not follow commands. Patient has developed atrial fibrillation and heart rate is currently controlled. Patient continued to require levo fed infusion at 6 mics per Per minute 11/28:Patient continued to be distended does not follow commands. Patient has developed atrial fibrillation and heart rate is currently controlled. Patient was following commands by squeezing his hand this morning but currently is off sedation but still not following commands patient is moving his head to the right than to the left spontaneously and currently still on full vent support 11/29: Patient remains intubated and on mechanical ventilation. He is currently being CPAP. He has been off vasopressors since over the weekend. He is also off midodrine. Patient started on hydralazine. He is more alert and able to squeeze his hands with direction. Left is noted to be stronger than the right. He has continued on Primacor and insulin. We have ordered one dose of Ferrlecit and he is scheduled for transfusion 1 unit of packed RBCs for hemoglobin of 6.9. Liver function tests are improving. BUN is 131 and creatinine 1.6. 11/30: Patient remains in intensive care unit intubated and on mechanical ventilation. He continues to be off vasopressors. He remains on Primacor. Urine output has been between 45 and 150 mL per hour. BUN 131 and creatinine 1.6. White count is down to 12.8, hemoglobin is now 8 after 1 unit of packed RBCs and he received Ferrlecit yesterday. White blood count is recovering now at 136. Liver function tests are all improving as well. Overall, patient is showing slow gradual improvement. Another dose of Ferrlecit has been ordered by nephrology. 12/01: Patient has been successfully extubated yesterday and now on BiPAP. Patient is currently on Precedex. He was placed on low-dose label fed and is currently being weaned. Central line and chest tube on the right to be removed today. White count is 13.7, hemoglobin 8.1, BUN 126 and creatinine 1.6. Capillary blood glucose running between 132 and 152. Her function tests continue to improve. 12/02: Patient remains in the intensive care unit. A Dobbhoff was attempted yesterday but was unsuccessful and to be retry today. Capillary blood glucose running between 149 and 164. White count is down to 12.4, hemoglobin is at 7.8. Renal function shows a BUN of 118 and creatinine 1.6. Liver function tests continue to improve slowly but are not back to normal range. 12/03: Patient remains in intensive care unit. Attempted Dobbhoff tube was attempted by STEVEN yesterday but second attempt was also unsuccessful and patient required reintubation for acute respiratory failure. Patient is on Primacor and propofol, low dose norepinephrine. Asians does not wish for tracheostomy and PEG tube as those were the patient's wishes. Patient has had diarrhea starting a urine specimen to be sent for C. difficile toxin. Objective - Vital Signs Vital signs: Vital Signs Temp 99.9 F H 12/03/17 00:15 Pulse 100 12/03/17 08:04 Resp 28 H 12/03/17 06:45 BP 100/61 12/02/17 17:00 Pulse Ox 100 12/03/17 06:45 Intake & Output 12/02/17 12/03/17 12/03/17 18:59 06:59 18:59 Intake Total 8420.765 6472.804 65.688 Output Total 830 735 Balance 315.488 8006.804 65.688 Weight 83.3 kg Intake: IV 906 282 Dextrose 5% in Water 1, 640 190 000 ml @ 40 mls/hr IV . Q24H [facility]AN[facility] Rx#:[id number] KVO 6 Piperacillin-Tazobactam 3 100 50 .375 gm In Dextrose/Water 1 50ml.bag @ 12.5 mls/hr IVPB Q8HR JANNA Rx#: [id number] Potassium Chloride 20 meq 100 In Water For Injection 1 100ml.bag @ 50 mls/hr IVPB Q2H [facility]ANNA Rx#: [id number] Pressure Bags 60 42 Intake, IV Titration 217.186 206.804 65.688 Amount Dexmedetomidine 400 mcg 91.219 In Sodium Chloride 0.9% 100 ml @ 0.1 MCG/KG/HR 2. 05 mls/hr IV .Q24H [facility]AN[facility] Rx #:[id number] Insulin Regular 100 unit 10.871 16.124 5.082 In Sodium Chloride 0.9% 100 ml @ Per Protocol IV .Q0M [facility] Rx#:[id number] Milrinone-D5w Pmx 20 mg 93.899 In Dextrose/Water 1 100ml .bag @ 0.2 MCG/KG/MIN 4. 66 mls/hr IV .[id number] [facility]ANNA Rx#:[id number] Norepinephrine 16 mg In 19.514 92.363 22.822 Dextrose 5% in Water 250 ml @ Titrate IV .Q0M [facility] Rx#:[id number] Propofol 1,000 mg In 1.683 98.317 37.784 Empty Bag 1 bag @ Titrate IV .Q0M [facility] Rx#: [id number] Oral 60 Tube Feeding 20 710 Other 600 Output: Urine 830 735 Other: Voiding Method Indwelling Catheter Indwelling Catheter # Bowel Movements 2 ABP, PAP, CO, CI - Last Documented Arterial Blood Pressure 132/45 Pulmonary Artery Pressure 40/15 Cardiac Output 5.0 Cardiac Index 2.7 - Exam General appearance: average body habitus, cooperative, no acute distress - EENT Eyes: anicteric sclerae, EOMI, PERRLA, dentition normal, normal appearance no vision in the left eye blurring of the cornea ENT: NA/AT, normal oropharynx, intubated and on mechanical ventilation - Respiratory Respiratory: bilateral: Scattered rhonchi, negative: diminished, dullness, rales , wheezing, - Cardiovascular Rhythm: Regularly irregular Heart sounds: normal: S1, S2 Abnormal Heart Sounds: no systolic murmur, no diastolic murmur, no rub, no S3 Gallop, no S4 Gallop, no click, no other - Gastrointestinal General gastrointestinal: normal bowel sounds, soft, Fong draining clear dark urine - Integumentary Integumentary: normal, normal turgor - Neurologic Neurologic: Patient sedated - Musculoskeletal Musculoskeletal: gait not assessed, patient sedated - Labs CBC & Chem 7: 12/03/17 03:53 12/03/17 03:53 Labs: Abnormal Lab Results - Last 24 Hours (Table) 12/02/17 12/02/17 12/02/17 Range/Units 10:38 12:01 13:33 WBC (3.8-10.6) k/uL RBC (4.30-5.90) m/uL Hgb (13.0-17.5) gm/dL Hct (39.0-53.0) % RDW (11.5-15.5) % Plt Count (150-450) k/uL Neutrophils # (1.3-7.7) k/uL Lymphocytes # (1.0-4.8) k/uL ABG pH (7.35-7.45) ABG pCO2 (35-45) mmHg ABG pO2 (83-108) mmHg ABG Total CO2 (19-24) mmol/L ABG O2 Saturation (94-97) % Sodium (137-145) mmol/L Chloride (98-107) mmol/L BUN (9-20) mg/dL Creatinine (0.66-1.25) mg/dL Glucose (74-99) mg/dL POC Glucose (mg/dL) 164 H 148 H 136 H (75-99) mg/dL Calcium (8.4-10.2) mg/dL Magnesium (1.6-2.3) mg/dL Total Bilirubin (0.2-1.3) mg/dL AST (17-59) U/L ALT (21-72) U/L Alkaline Phosphatase (38-126) U/L Total Protein (6.3-8.2) g/dL Albumin (3.5-5.0) g/dL 12/02/17 12/02/17 12/02/17 Range/Units 14:47 16:38 17:00 WBC (3.8-10.6) k/uL RBC (4.30-5.90) m/uL Hgb (13.0-17.5) gm/dL Hct (39.0-53.0) % RDW (11.5-15.5) % Plt Count (150-450) k/uL Neutrophils # (1.3-7.7) k/uL Lymphocytes # (1.0-4.8) k/uL ABG pH 7.47 H (7.35-7.45) ABG pCO2 34 L (35-45) mmHg ABG pO2 211 H (83-108) mmHg ABG Total CO2 26 H (19-24) mmol/L ABG O2 Saturation 100.0 H (94-97) % Sodium (137-145) mmol/L Chloride (98-107) mmol/L BUN (9-20) mg/dL Creatinine (0.66-1.25) mg/dL Glucose (74-99) mg/dL POC Glucose (mg/dL) 149 H 155 H (75-99) mg/dL Calcium (8.4-10.2) mg/dL Magnesium (1.6-2.3) mg/dL Total Bilirubin (0.2-1.3) mg/dL AST (17-59) U/L ALT (21-72) U/L Alkaline Phosphatase (38-126) U/L Total Protein (6.3-8.2) g/dL Albumin (3.5-5.0) g/dL 12/02/17 12/02/17 12/02/17 Range/Units 18:17 19:49 19:52 WBC (3.8-10.6) k/uL RBC (4.30-5.90) m/uL Hgb (13.0-17.5) gm/dL Hct (39.0-53.0) % RDW (11.5-15.5) % Plt Count (150-450) k/uL Neutrophils # (1.3-7.7) k/uL Lymphocytes # (1.0-4.8) k/uL ABG pH (7.35-7.45) ABG pCO2 (35-45) mmHg ABG pO2 (83-108) mmHg ABG Total CO2 (19-24) mmol/L ABG O2 Saturation (94-97) % Sodium 151 H (137-145) mmol/L Chloride (98-107) mmol/L BUN (9-20) mg/dL Creatinine (0.66-1.25) mg/dL Glucose (74-99) mg/dL POC Glucose (mg/dL) 157 H 153 H (75-99) mg/dL Calcium (8.4-10.2) mg/dL Magnesium (1.6-2.3) mg/dL Total Bilirubin (0.2-1.3) mg/dL AST (17-59) U/L ALT (21-72) U/L Alkaline Phosphatase (38-126) U/L Total Protein (6.3-8.2) g/dL Albumin (3.5-5.0) g/dL 12/02/17 12/02/17 12/03/17 Range/Units 21:51 23:35 02:01 WBC (3.8-10.6) k/uL RBC (4.30-5.90) m/uL Hgb (13.0-17.5) gm/dL Hct (39.0-53.0) % RDW (11.5-15.5) % Plt Count (150-450) k/uL Neutrophils # (1.3-7.7) k/uL Lymphocytes # (1.0-4.8) k/uL ABG pH (7.35-7.45) ABG pCO2 (35-45) mmHg ABG pO2 (83-108) mmHg ABG Total CO2 (19-24) mmol/L ABG O2 Saturation (94-97) % Sodium (137-145) mmol/L Chloride (98-107) mmol/L BUN (9-20) mg/dL Creatinine (0.66-1.25) mg/dL Glucose (74-99) mg/dL POC Glucose (mg/dL) 151 H 134 H 177 H (75-99) mg/dL Calcium (8.4-10.2) mg/dL Magnesium (1.6-2.3) mg/dL Total Bilirubin (0.2-1.3) mg/dL AST (17-59) U/L ALT (21-72) U/L Alkaline Phosphatase (38-126) U/L Total Protein (6.3-8.2) g/dL Albumin (3.5-5.0) g/dL 12/03/17 12/03/17 12/03/17 Range/Units 03:47 03:53 03:53 WBC 16.9 H (3.8-10.6) k/uL RBC 2.71 L (4.30-5.90) m/uL Hgb 7.9 L (13.0-17.5) gm/dL Hct 25.1 L (39.0-53.0) % RDW 19.0 H (11.5-15.5) % Plt Count 144 L (150-450) k/uL Neutrophils # 16.0 H (1.3-7.7) k/uL Lymphocytes # 0.3 L (1.0-4.8) k/uL ABG pH (7.35-7.45) ABG pCO2 (35-45) mmHg ABG pO2 (83-108) mmHg ABG Total CO2 (19-24) mmol/L ABG O2 Saturation (94-97) % Sodium 152 H (137-145) mmol/L Chloride 121 H* (98-107) mmol/L BUN 111 H* (9-20) mg/dL Creatinine 1.71 H (0.66-1.25) mg/dL Glucose 187 H (74-99) mg/dL POC Glucose (mg/dL) 197 H (75-99) mg/dL Calcium 7.9 L (8.4-10.2) mg/dL Magnesium 2.5 H (1.6-2.3) mg/dL Total Bilirubin 4.5 H (0.2-1.3) mg/dL AST 71 H (17-59) U/L ALT 115 H (21-72) U/L Alkaline Phosphatase 158 H (38-126) U/L Total Protein 5.0 L (6.3-8.2) g/dL Albumin 2.0 L (3.5-5.0) g/dL 12/03/17 12/03/17 12/03/17 Range/Units 04:34 05:47 07:48 WBC (3.8-10.6) k/uL RBC (4.30-5.90) m/uL Hgb (13.0-17.5) gm/dL Hct (39.0-53.0) % RDW (11.5-15.5) % Plt Count (150-450) k/uL Neutrophils # (1.3-7.7) k/uL Lymphocytes # (1.0-4.8) k/uL ABG pH 7.48 H (7.35-7.45) ABG pCO2 32 L (35-45) mmHg ABG pO2 76 L (83-108) mmHg ABG Total CO2 25 H (19-24) mmol/L ABG O2 Saturation (94-97) % Sodium (137-145) mmol/L Chloride (98-107) mmol/L BUN (9-20) mg/dL Creatinine (0.66-1.25) mg/dL Glucose (74-99) mg/dL POC Glucose (mg/dL) 228 H 240 H (75-99) mg/dL Calcium (8.4-10.2) mg/dL Magnesium (1.6-2.3) mg/dL Total Bilirubin (0.2-1.3) mg/dL AST (17-59) U/L ALT (21-72) U/L Alkaline Phosphatase (38-126) U/L Total Protein (6.3-8.2) g/dL Albumin (3.5-5.0) g/dL Assessment and Plan Plan: (1) Coronary artery disease and moderate mitral valve regurgitation Triple vessel disease noted on cardiac cath agent status post CABG and mitral valve repair on all 11/17/2017. Continue on aspirin, metoprolol. ICU gyroscopic instrument mechanic Dr. Paul/Delonte on consult. Continue current management per cardio vascular surgery team (2) Ischemic cardiomyopathy Has impaired ejection fraction of 38%, along with congestive heart failure. (3) Congestive heart failure with cardiomyopathy Acute on chronic systolic and diastolic heart failure (4) Hyperlipidemia Patient currently not on statins (5) GI prophylaxis (6) DVT prophylaxis (7) Steal syndrome, subclavian Carotid Dopplers 11/10/2017 shows no carotid stenosis however there is to and fro flow within the right vertebral artery could reflect manifestation of subclavian steal physiology prior to with continuous flow reversal. Currently asymptomatic continue to monitor (8) Pulmonary hypertension PILAR on 11/10/2017, moderate pulmonary hypertension also shows intact atrial septum with no evidence of [id number] shunt physiology, unable to locate pressures for right ventricular systolic 9. Thrombocytopenia secondary to consumption. Numbers improved and patient has been resumed back on aspirin, Plavix. Consult with oncology appreciated. Recommendations for platelet transfusion if less than 50,000. 10. Anemia, secondary to a combination of acute blood loss and renal failure with drop in hemoglobin from 10-6.5. Patient is status post multiple blood products. Ferrlecit infusion. 11. Acute kidney injury, acute tubular necrosis, oliguric secondary to hypotension, hypoperfusion. Consult with nephrology appreciated. Off Lasix drip. Status post IV sodium bicarb. 12. Post op atrial fibrillation, expected outcome of surgery. Patient has been on amiodarone and Lopressor. 13. Liver transaminitis and coagulopathy secondary to shock liver oncology consult appreciated. Continue to monitor closely. 14. Depression, situational. Zoloft was subsequently discontinued. 15. Acute delirium secondary to acute illness. 16. Hyperglycemia without diabetes. Patient resumed on insulin drip. Hemoglobin A1c is 6.7. 17. Cardiorenal syndrome and cardiogenic shock requiring IV vasopressors. 18. Diarrhea with possible acute GI bleed with acute blood loss anemia. Fecal management system was required. Stool for occult blood is positive. C diff toxin is negative on first specimen. C. difficile toxin to be rechecked. Patient may need fecal management system replaced. 19. Acute hypoxic respiratory failure requiring reintubation and mechanical ventilation subsequently extubated. Prognosis guarded. Discharge plan: To be determined Impression and plan of care have been directed as dictated by the signing physician. Amy Renteria nurse practitioner acting as scribe for signing physician.
[2017-12-03 15:20] LABS: Glucose,Whole Blood 198 mg/dL (75-99)
[2017-12-03 16:02] LABS: Glucose,Whole Blood 180 mg/dL (75-99)
[2017-12-03 17:27] LABS: Glucose,Whole Blood 185 mg/dL (75-99)
[2017-12-03 18:05] LABS: Glucose,Whole Blood 170 mg/dL (75-99)
[2017-12-03 18:55] LABS: Glucose,Whole Blood 166 mg/dL (75-99)
[2017-12-03] MEDS: INSULIN REGULAR 100 UNIT in SODIUM CHLORIDE 0.9% 100 ML IV SCH (18:55)
--- NOTE | 2017-12-03 19:07 | P.PN ---
Subjective Progress Note Date: 12/03/17 Principal diagnosis: Thrombocytopenia requiring Anticoagulation on ventilator, platlet count and Coag Factors have resolved. Objective - Vital Signs Vital signs: Vital Signs Temp 97.5 F L 12/03/17 16:00 Pulse 89 12/03/17 18:30 Resp 23 12/03/17 18:30 BP 100/61 12/02/17 17:00 Pulse Ox 99 12/03/17 18:30 Intake & Output 12/03/17 12/03/17 12/04/17 06:59 18:59 06:59 Intake Total 2574.571 4987.729 Output Total 735 1275 Balance 1063.804 422.729 Weight 83.3 kg 83.3 kg Intake: IV 282 206 Dextrose 5% in Water 1, 190 120 000 ml @ 40 mls/hr IV . Q24H [facility] Rx#:[id number] Piperacillin-Tazobactam 3 50 50 .375 gm In Dextrose/Water 1 50ml.bag @ 12.5 mls/hr IVPB Q8HR [facility] Rx#: [id number] Pressure Bags 42 36 Intake, IV Titration 206.804 401.729 Amount Calcium Chloride 1,000 mg 100 In Sodium Chloride 0.9% 100 ml @ 100 mls/hr IVPB ONCE [facility] Rx#:[id number] Insulin Regular 100 unit 16.124 61.407 In Sodium Chloride 0.9% 100 ml @ Per Protocol IV .Q0M [facility] Rx#:[id number] Milrinone-D5w Pmx 20 mg 100 In Dextrose/Water 1 100ml .bag @ 0.2 MCG/KG/MIN 4. 66 mls/hr IV .[id number] [facility] Rx#:[id number] Norepinephrine 16 mg In 92.363 40.322 Dextrose 5% in Water 250 ml @ Titrate IV .Q0M [facility] Rx#:[id number] Propofol 1,000 mg In 98.317 100.000 Empty Bag 1 bag @ Titrate IV .Q0M [facility] Rx#: [id number] Oral 180 Tube Feeding 710 910 Other 600 Output: Urine 735 1075 Stool 200 Other: Voiding Method Indwelling Catheter Indwelling Catheter # Bowel Movements 2 1 ABP, PAP, CO, CI - Last Documented Arterial Blood Pressure 119/44 Pulmonary Artery Pressure 40/15 Cardiac Output 5.0 Cardiac Index 2.7 - Exam Ventilator, NAAD Agitated Pale - Neck Details: Supple - Cardiovascular Rhythm: regular - Labs CBC & Chem 7: 12/03/17 03:53 12/03/17 18:25 Labs: Abnormal Lab Results - Last 24 Hours (Table) 12/02/17 12/02/17 12/02/17 Range/Units 19:49 19:52 21:51 WBC (3.8-10.6) k/uL RBC (4.30-5.90) m/uL Hgb (13.0-17.5) gm/dL Hct (39.0-53.0) % RDW (11.5-15.5) % Plt Count (150-450) k/uL Neutrophils # (1.3-7.7) k/uL Lymphocytes # (1.0-4.8) k/uL ABG pH (7.35-7.45) ABG pCO2 (35-45) mmHg ABG pO2 (83-108) mmHg ABG Total CO2 (19-24) mmol/L Sodium 151 H (137-145) mmol/L Chloride (98-107) mmol/L BUN (9-20) mg/dL Creatinine (0.66-1.25) mg/dL Glucose (74-99) mg/dL POC Glucose (mg/dL) 153 H 151 H (75-99) mg/dL Calcium (8.4-10.2) mg/dL Magnesium (1.6-2.3) mg/dL Total Bilirubin (0.2-1.3) mg/dL AST (17-59) U/L ALT (21-72) U/L Alkaline Phosphatase (38-126) U/L Total Protein (6.3-8.2) g/dL Albumin (3.5-5.0) g/dL 12/02/17 12/03/17 12/03/17 Range/Units 23:35 02:01 03:47 WBC (3.8-10.6) k/uL RBC (4.30-5.90) m/uL Hgb (13.0-17.5) gm/dL Hct (39.0-53.0) % RDW (11.5-15.5) % Plt Count (150-450) k/uL Neutrophils # (1.3-7.7) k/uL Lymphocytes # (1.0-4.8) k/uL ABG pH (7.35-7.45) ABG pCO2 (35-45) mmHg ABG pO2 (83-108) mmHg ABG Total CO2 (19-24) mmol/L Sodium (137-145) mmol/L Chloride (98-107) mmol/L BUN (9-20) mg/dL Creatinine (0.66-1.25) mg/dL Glucose (74-99) mg/dL POC Glucose (mg/dL) 134 H 177 H 197 H (75-99) mg/dL Calcium (8.4-10.2) mg/dL Magnesium (1.6-2.3) mg/dL Total Bilirubin (0.2-1.3) mg/dL AST (17-59) U/L ALT (21-72) U/L Alkaline Phosphatase (38-126) U/L Total Protein (6.3-8.2) g/dL Albumin (3.5-5.0) g/dL 12/03/17 12/03/17 12/03/17 Range/Units 03:53 03:53 04:34 WBC 16.9 H (3.8-10.6) k/uL RBC 2.71 L (4.30-5.90) m/uL Hgb 7.9 L (13.0-17.5) gm/dL Hct 25.1 L (39.0-53.0) % RDW 19.0 H (11.5-15.5) % Plt Count 144 L (150-450) k/uL Neutrophils # 16.0 H (1.3-7.7) k/uL Lymphocytes # 0.3 L (1.0-4.8) k/uL ABG pH 7.48 H (7.35-7.45) ABG pCO2 32 L (35-45) mmHg ABG pO2 76 L (83-108) mmHg ABG Total CO2 25 H (19-24) mmol/L Sodium 152 H (137-145) mmol/L Chloride 121 H* (98-107) mmol/L BUN 111 H* (9-20) mg/dL Creatinine 1.71 H (0.66-1.25) mg/dL Glucose 187 H (74-99) mg/dL POC Glucose (mg/dL) (75-99) mg/dL Calcium 7.9 L (8.4-10.2) mg/dL Magnesium 2.5 H (1.6-2.3) mg/dL Total Bilirubin 4.5 H (0.2-1.3) mg/dL AST 71 H (17-59) U/L ALT 115 H (21-72) U/L Alkaline Phosphatase 158 H (38-126) U/L Total Protein 5.0 L (6.3-8.2) g/dL Albumin 2.0 L (3.5-5.0) g/dL 12/03/17 12/03/17 12/03/17 Range/Units 05:47 07:48 10:24 WBC (3.8-10.6) k/uL RBC (4.30-5.90) m/uL Hgb (13.0-17.5) gm/dL Hct (39.0-53.0) % RDW (11.5-15.5) % Plt Count (150-450) k/uL Neutrophils # (1.3-7.7) k/uL Lymphocytes # (1.0-4.8) k/uL ABG pH (7.35-7.45) ABG pCO2 (35-45) mmHg ABG pO2 (83-108) mmHg ABG Total CO2 (19-24) mmol/L Sodium (137-145) mmol/L Chloride (98-107) mmol/L BUN (9-20) mg/dL Creatinine (0.66-1.25) mg/dL Glucose (74-99) mg/dL POC Glucose (mg/dL) 228 H 240 H 236 H (75-99) mg/dL Calcium (8.4-10.2) mg/dL Magnesium (1.6-2.3) mg/dL Total Bilirubin (0.2-1.3) mg/dL AST (17-59) U/L ALT (21-72) U/L Alkaline Phosphatase (38-126) U/L Total Protein (6.3-8.2) g/dL Albumin (3.5-5.0) g/dL 12/03/17 12/03/17 12/03/17 Range/Units 12:03 13:22 14:00 WBC (3.8-10.6) k/uL RBC (4.30-5.90) m/uL Hgb (13.0-17.5) gm/dL Hct (39.0-53.0) % RDW (11.5-15.5) % Plt Count (150-450) k/uL Neutrophils # (1.3-7.7) k/uL Lymphocytes # (1.0-4.8) k/uL ABG pH (7.35-7.45) ABG pCO2 (35-45) mmHg ABG pO2 (83-108) mmHg ABG Total CO2 (19-24) mmol/L Sodium (137-145) mmol/L Chloride (98-107) mmol/L BUN (9-20) mg/dL Creatinine (0.66-1.25) mg/dL Glucose (74-99) mg/dL POC Glucose (mg/dL) 250 H 216 H 208 H (75-99) mg/dL Calcium (8.4-10.2) mg/dL Magnesium (1.6-2.3) mg/dL Total Bilirubin (0.2-1.3) mg/dL AST (17-59) U/L ALT (21-72) U/L Alkaline Phosphatase (38-126) U/L Total Protein (6.3-8.2) g/dL Albumin (3.5-5.0) g/dL 12/03/17 12/03/17 12/03/17 Range/Units 15:19 16:01 17:25 WBC (3.8-10.6) k/uL RBC (4.30-5.90) m/uL Hgb (13.0-17.5) gm/dL Hct (39.0-53.0) % RDW (11.5-15.5) % Plt Count (150-450) k/uL Neutrophils # (1.3-7.7) k/uL Lymphocytes # (1.0-4.8) k/uL ABG pH (7.35-7.45) ABG pCO2 (35-45) mmHg ABG pO2 (83-108) mmHg ABG Total CO2 (19-24) mmol/L Sodium (137-145) mmol/L Chloride (98-107) mmol/L BUN (9-20) mg/dL Creatinine (0.66-1.25) mg/dL Glucose (74-99) mg/dL POC Glucose (mg/dL) 198 H 180 H 185 H (75-99) mg/dL Calcium (8.4-10.2) mg/dL Magnesium (1.6-2.3) mg/dL Total Bilirubin (0.2-1.3) mg/dL AST (17-59) U/L ALT (21-72) U/L Alkaline Phosphatase (38-126) U/L Total Protein (6.3-8.2) g/dL Albumin (3.5-5.0) g/dL 12/03/17 12/03/17 12/03/17 Range/Units 18:03 18:25 18:54 WBC (3.8-10.6) k/uL RBC (4.30-5.90) m/uL Hgb (13.0-17.5) gm/dL Hct (39.0-53.0) % RDW (11.5-15.5) % Plt Count (150-450) k/uL Neutrophils # (1.3-7.7) k/uL Lymphocytes # (1.0-4.8) k/uL ABG pH (7.35-7.45) ABG pCO2 (35-45) mmHg ABG pO2 (83-108) mmHg ABG Total CO2 (19-24) mmol/L Sodium 151 H (137-145) mmol/L Chloride (98-107) mmol/L BUN (9-20) mg/dL Creatinine (0.66-1.25) mg/dL Glucose (74-99) mg/dL POC Glucose (mg/dL) 170 H 166 H (75-99) mg/dL Calcium (8.4-10.2) mg/dL Magnesium (1.6-2.3) mg/dL Total Bilirubin (0.2-1.3) mg/dL AST (17-59) U/L ALT (21-72) U/L Alkaline Phosphatase (38-126) U/L Total Protein (6.3-8.2) g/dL Albumin (3.5-5.0) g/dL Assessment and Plan Plan: Assessment and Recommendations: 1. Thrombocytopenia: - Likely secondary to Shock Liver and Consumption, less likely Heparin exposure. - This has resolved 2. Prolonged INR/PT - coagulopathy - Resolved 3. Liver Transiminitis: - Likely secondary to shock liver. - No known history of underlying liver disease - Continue to monitor liver per management of primary team 4. Normocytic Anemia: - Monitor CBC, Transfuse for Hemoglobin less than 7 5. Mitral valve regurgitation, post mitral valve repair 6. Ischemic cardiomyopathy, with severe left ventricular systolic dysfunction, with significantly impaired preoperative physical ejection fraction 7. Diabetes mellitus type 2, currently on insulin drip 8. Acute Renal Failure
[2017-12-03] MEDS ORDERED: DEXTROSE 5% IN WATER 100 ML with AMIODARONE 150 MG IV STA (19:46)
[2017-12-03 20:30] LABS: Glucose,Whole Blood 178 mg/dL (75-99)
[2017-12-03] MEDS: ATORVASTATIN 40 MG TAB PO SCH (20:30)
[2017-12-03] MEDS: prednisoLONE ACETATE 1% OPHTH DROPS 5 ML BTL LEFT EYE SCH (20:30)
[2017-12-03] MEDS: ERYTHROMYCIN 5 MG/GM OPHTH OINT 3.5 GM TUBE LEFT EYE SCH (20:31)
[2017-12-03] MEDS: SENNOSIDES-DOCUSATE SODIUM 1 EACH TAB PO SCH (20:31)
--- NOTE | 2017-12-03 21:51 | P.CONS ---
History of Present Illness - Reason for Consult Consult date: 12/03/17 - Chief Complaint Shortness of breath and exertion of admission - History of Present Illness 72-year-old male presented to Hospital now 17 days ago with significant increase in shortness of breath, dyspnea on exertion as well as significant mitral valve regurgitation.. There was evidence of three-vessel coronary disease with severe ischemic cardiomyopathy with the patient on 2017 was taken to the operating room for the coronary artery bypass grafting procedure, and mitral valve repair. Atrial appendage was also repaired. The patient has had a complex hospital stay with extubation and reintubation now on 2 events. This had persistent respiratory failure. There was difficulties with feeding, the family does not want tracheostomy and PEG tube placement. Gastroenterology was consulted and they failed placement of Dobbhoff tube, per thoracic surgery was able to place the tube for nutritional support. Infectious diseases consultation is requested regarding the Klebsiella oxytoca isolated from his sputum several days prior, is being treated with piperacillin tazobactam. The patient has persistent respiratory failure requiring mechanical ventilation as well as significant leukocytosis that has worsened over the last day. Patient also on the 16 and a low-grade fever which increased the concerns. At this time. Information will be coming from the chart the patient is intubated and unable to communicate with the observer. The patient had attempts for feeding tube placement developed respiratory compromise and did require reintubation and mechanical ventilation Review of Systems ROS unobtainable: due to endotracheal tube Past Medical History Past Medical History: Coronary Artery Disease (CAD), Heart Failure, Diabetes Mellitus, Hyperlipidemia, Myocardial Infarction (NM) Additional Past Medical History / Comment(s): mitral valve regurgitation Last Myocardial Infarction Date:: PER ECHO POSS UNKNOWN DATE -NM History of Any Multi-Drug Resistant Organisms: None Reported Past Surgical History: Heart Catheterization, Orthopedic Surgery Additional Past Surgical History / Comment(s): CORNEAL GRAFT LEFT EYE, LITHOTRIPSY , LEFT KNEE SURGERY-ARTHROSCOPIC Past Anesthesia/Blood Transfusion Reactions: No Reported Reaction Additional Past Anesthesia/Blood Transfusion Reaction / Comm: no hx of blood transfusion Smoking Status: Former smoker - Past Family History Mother History Unknown: Yes ( at age 86 secondary to traumatic brain concussion bleed) Family Medical History: No Reported History Father Family Medical History: Coronary Artery Disease (CAD) ( at 83) Brother(s) Family Medical History: No Reported History Sister(s) Family Medical History: No Reported History (One brother one sister healthy no children) Medications and Allergies Home Medications and Allergies Comment(s): Current Medications Acetaminophen (Tylenol Tab) 650 mg PO Q4HR PRN PRN Reason: Fever and/ or MILD Pain Last Admin: 12/03/17 00:00 Dose: 650 mg Albuterol/Ipratropium (Duoneb 0.5 Mg-3 Mg/3 Ml Soln) 3 ml INHALATION RT-Q2H PRN PRN Reason: Shortness Of Breath Or Wheezing Last Admin: 11/20/17 05:34 Dose: 3 ml Albuterol/Ipratropium (Duoneb 0.5 Mg-3 Mg/3 Ml Soln) 3 ml INHALATION RT-QID [facility] Last Admin: 12/03/17 19:16 Dose: 3 ml Amiodarone HCl (Cordarone) 200 mg PO DAILY [facility] Last Admin: 12/03/17 07:58 Dose: 200 mg Ascorbic Acid (Vitamin C) 500 mg PO BID-W/MEALS [facility] Last Admin: 12/03/17 16:38 Dose: 500 mg Aspirin (Aspirin) 325 mg PO DAILY [facility] Last Admin: 12/03/17 07:59 Dose: 325 mg Atorvastatin Calcium (Lipitor) 40 mg PO HS [facility] Last Admin: 12/03/17 20:30 Dose: 40 mg Benzocaine/Menthol (Cepacol Lozenge) 1 each MUCOUS MEM Q2H PRN PRN Reason: Sore Throat Bisacodyl (Dulcolax) 10 mg RECTAL DAILY PRN PRN Reason: Constipation Last Admin: 11/23/17 15:26 Dose: 10 mg Chlorhexidine Gluconate (Peridex) 15 ml MUCOUS MEM BID [facility] Last Admin: 12/03/17 20:30 Dose: 15 ml Clopidogrel Bisulfate (Plavix) 75 mg PO DAILY [facility] Last Admin: 12/03/17 08:00 Dose: 75 mg Erythromycin (Romycin Ophth Oint) 1 applic LEFT EYE HS [facility] Last Admin: 12/03/17 20:31 Dose: 1 applic Ferrous Sulfate (Feosol) 300 mg PO BID-W/MEALS [facility] Last Admin: 12/03/17 16:38 Dose: 300 mg Heparin Sodium (Porcine) (Heparin) 5,000 unit SQ Q8HR [facility] Last Admin: 08/17/18 15:28 Dose: 5,000 unit Hydralazine HCl (Apresoline) 25 mg PO BID [facility] Last Admin: 12/03/17 20:31 Dose: Not Given Milrinone Lactate/Dextrose 20 (mg/ IV Solution) 100 mls @ 4.66 mls/hr IV .[id number] [facility] Last Admin: 12/03/17 10:28 Dose: 0.2 mcg/kg/min, 4.66 mls/hr Insulin Human Regular 100 unit (/ Sodium Chloride) 101 mls @ 0 mls/hr IV .Q0M [facility]; Protocol Last Titration: 12/03/17 20:29 Dose: 4.5 units/hr, 4.54 mls/hr Piperacillin/Tazobactam/ (Dextrose 3.375 gm/ IV Solution) 50 mls @ 12.5 mls/hr IVPB Q8HR [facility] Last Admin: 12/03/17 15:26 Dose: 12.5 mls/hr Norepinephrine Bitartrate 16 (mg/ Dextrose/Water) 250 mls @ 0 mls/hr IV .Q0M [facility]; Protocol Last Titration: 12/03/17 13:20 Dose: 0 mcg/min, 0 mls/hr Propofol 1,000 mg/ IV Solution 100 mls @ 0 mls/hr IV .Q0M [facility]; Protocol Last Titration: 12/03/17 20:41 Dose: 20 mcg/kg/min, 9.99 mls/hr Insulin Human Regular (Humulin R Bolus From Bag) 7.9 unit 0.1 unit/kg (7.9 unit ) IV ONCE PRN PRN Reason: Blood Sugar - High Stop: 12/24/17 15:07 Magnesium Hydroxide (Milk Of Magnesia) 2,400 mg PO BID PRN PRN Reason: Constipation Last Admin: 11/20/17 09:22 Dose: 2,400 mg Metoprolol Tartrate (Lopressor) 25 mg PO BID [facility] Last Admin: 12/03/17 19:17 Dose: 25 mg Midodrine (Proamatine) 5 mg PO AC-TID [facility] Last Admin: 12/03/17 16:37 Dose: 5 mg Miscellaneous Information (Magnesium Per Protocol) 1 each MISCELLANE DAILY PRN ; Protocol PRN Reason: Per Protocol Miscellaneous Information (Phosphorus Per Protocol) 1 each MISCELLANE DAILY PRN ; Protocol PRN Reason: Per Protocol Miscellaneous Information (Potassium Per Protocol) 1 each MISCELLANE DAILY PRN ; Protocol PRN Reason: Per Protocol Multi-Ingred Cream/Lotion/Oil/Oint (Lubrifresh Pm Ointment) 1 applic BOTH EYES QID PRN PRN Reason: Dry Eye(s) Last Admin: 11/29/17 09:29 Dose: 1 applic Ondansetron HCl (Zofran) 4 mg IVP Q6HR PRN PRN Reason: Nausea And Vomiting Last Admin: 11/22/17 17:05 Dose: 4 mg Pantoprazole Sodium (Protonix) 40 mg IVP DAILY [facility] Last Admin: 12/03/17 08:01 Dose: 40 mg Prednisolone Acetate (Pred Forte 1%) 1 drops LEFT EYE [facility] Last Admin: 12/03/17 20:30 Dose: 1 drops Senna/Docusate Sodium (Senokot-S) 2 each PO HS [facility] Last Admin: 12/03/17 20:31 Dose: Not Given Sertraline HCl (Zoloft) 25 mg PO DAILY [facility] Last Admin: 12/03/17 08:01 Dose: 25 mg Sodium Chloride (Saline Flush) 10 ml IV Q4HR PRN PRN Reason: PICC Line Home Medications Medication Instructions Recorded Confirmed Type Atorvastatin [Lipitor] 40 mg PO HS 11/03/17 11/16/17 History Erythromycin Ophth Oint [Romycin 1 applic LEFT EYE HS 11/03/17 11/16/17 History Ophth Oint] Gatifloxacin/Prednisolone 1 drop LEFT EYE HS 11/03/17 11/16/17 History [prednisoLONE 1%-Gatiflox 0.5%] Glucosamine/MSM/Chrond/D3/Bosw 1 tab PO DAILY 11/03/17 11/16/17 History [Lnatytyyztw-Mouwge-KVO-D3 Cplt] Lisinopril [Zestril] 5 mg PO DAILY@1500 11/03/17 11/16/17 History Multivitamin [Men's Multi-Vitamin] 1 tab PO DAILY 11/03/17 11/16/17 History Naproxen Sodium [Aleve] 440 mg PO DAILY 11/03/17 11/16/17 History diphenhydrAMINE [Benadryl] 25 mg PO DAILY PRN 11/03/17 11/16/17 History Furosemide [Lasix] 40 mg PO DAILY #30 tablet 11/09/17 11/16/17 Rx Metoprolol Succinate (ER) [Toprol 50 mg PO DAILY@1500 11/15/17 11/16/17 History Xl] Mupirocin 2% Nasal Oint [Bactroban 1 applic NASAL BID 11/15/17 11/16/17 History 2% Nasal Oint] metFORMIN HCL 1,000 mg PO W/SUPPER 11/15/17 11/16/17 History metFORMIN HCL [Glucophage] 500 mg PO BID 11/15/17 11/16/17 History Allergies Allergy/AdvReac Type Severity Reaction Status Date / Time clindamycin Allergy Rash/Hives Verified 11/16/17 10:28 Physical Exam Vitals: Vital Signs Temp Pulse Resp Pulse Ox 12/03/17 20:00 97.8 F 95 22 98 12/03/17 19:31 117 H 12/03/17 19:30 118 H 23 98 12/03/17 19:16 117 H 12/03/17 19:00 88 23 98 12/03/17 18:30 89 23 99 12/03/17 18:00 89 33 H 99 12/03/17 17:30 89 30 H 98 12/03/17 17:00 88 31 H 98 12/03/17 16:30 87 24 98 12/03/17 16:00 97.5 F L 87 30 H 99 12/03/17 15:40 88 12/03/17 15:30 85 24 99 12/03/17 15:23 84 12/03/17 15:00 82 26 H 98 12/03/17 14:30 85 33 H 99 12/03/17 14:00 84 31 H 98 12/03/17 13:30 85 33 H 99 12/03/17 13:00 88 35 H 98 12/03/17 12:30 89 29 H 99 12/03/17 12:00 98.3 F 87 32 H 98 12/03/17 11:50 91 12/03/17 11:32 89 12/03/17 11:30 89 33 H 100 12/03/17 11:00 87 33 H 99 12/03/17 10:30 85 33 H 99 12/03/17 10:00 86 38 H 99 12/03/17 09:30 85 27 H 100 12/03/17 09:00 89 32 H 100 12/03/17 08:30 97 37 H 97 12/03/17 08:04 100 12/03/17 08:00 99.4 F 100 31 H 99 12/03/17 07:38 100 12/03/17 07:30 101 H 31 H 100 12/03/17 07:00 104 H 28 H 100 12/03/17 06:45 104 H 28 H 100 12/03/17 06:30 103 H 28 H 100 12/03/17 06:15 107 H 25 H 100 12/03/17 06:00 107 H 26 H 100 12/03/17 05:45 110 H 31 H 99 12/03/17 05:30 111 H 31 H 98 12/03/17 05:15 110 H 29 H 97 12/03/17 05:00 111 H 26 H 96 12/03/17 04:45 112 H 26 H 96 12/03/17 04:30 112 H 20 96 12/03/17 04:15 112 H 22 94 L 12/03/17 04:00 108 H 27 H 94 L 12/03/17 03:45 105 H 22 97 12/03/17 03:30 105 H 28 H 97 12/03/17 03:15 104 H 28 H 97 12/03/17 03:00 105 H 20 99 12/03/17 02:45 105 H 24 98 12/03/17 02:30 106 H 23 98 12/03/17 02:15 105 H 30 H 99 12/03/17 02:00 100 29 H 99 12/03/17 01:45 99 32 H 98 12/03/17 01:30 98 29 H 98 12/03/17 01:15 100 25 H 98 12/03/17 01:00 100 30 H 98 12/03/17 00:45 97 29 H 98 12/03/17 00:30 98 28 H 99 12/03/17 00:15 99.9 F H 100 32 H 100 12/03/17 00:00 96 30 H 99 12/02/17 23:45 96 27 H 98 12/02/17 23:30 97 31 H 96 12/02/17 23:26 97 30 H 96 12/02/17 23:15 100.4 F H 96 32 H 95 12/02/17 23:00 95 30 H 98 12/02/17 22:45 94 30 H 99 12/02/17 22:30 92 30 H 99 12/02/17 22:15 91 30 H 99 12/02/17 22:00 89 30 H 98 12/02/17 21:45 89 30 H 98 12/02/17 21:30 91 31 H 98 Intake and Output 12/03/17 12/03/17 12/03/17 06:59 14:59 22:59 Intake Total 4636.470 0045.986 1180.828 Output Total 515 700 690 Balance 938.544 535.986 490.828 Intake: IV 227 191 22.6 Dextrose 5% in Water 1, 150 120 000 ml @ 40 mls/hr IV . Q24H [facility] Rx#:[id number] Milrinone-D5w Pmx 20 mg 4.6 In Dextrose/Water 1 100ml .bag @ 0.2 MCG/KG/MIN 4. 66 mls/hr IV .[id number] [facility] Rx#:[id number] Piperacillin-Tazobactam 3 50 50 .375 gm In Dextrose/Water 1 50ml.bag @ 12.5 mls/hr IVPB Q8HR [facility] Rx#: [id number] Pressure Bags 27 21 18 Intake, IV Titration 96.544 374.986 98.228 Amount Calcium Chloride 1,000 mg 100 In Sodium Chloride 0.9% 100 ml @ 100 mls/hr IVPB ONCE [facility] Rx#:[id number] Insulin Regular 100 unit 16.124 34.664 33.072 In Sodium Chloride 0.9% 100 ml @ Per Protocol IV .Q0M [facility] Rx#:[id number] Milrinone-D5w Pmx 20 mg 100 In Dextrose/Water 1 100ml .bag @ 0.2 MCG/KG/MIN 4. 66 mls/hr IV .[id number] [facility] Rx#:[id number] Norepinephrine 16 mg In 80.420 40.322 Dextrose 5% in Water 250 ml @ Titrate IV .Q0M [facility] Rx#:[id number] Propofol 1,000 mg In 100.000 65.156 Empty Bag 1 bag @ Titrate IV .Q0M [facility] Rx#: [id number] Oral 180 Tube Feeding 530 490 560 Other 600 500 Output: Urine 515 700 490 Stool 200 Other: Voiding Method Indwelling Catheter Indwelling Catheter Indwelling Catheter # Bowel Movements 2 1 Weight 83.3 kg 83.3 kg 83.3 kg ABP, PAP, CO, CI - Last 8 Hours Arterial Blood Pressure 105/46 Arterial Blood Pressure 108/46 Arterial Blood Pressure 117/44 Arterial Blood Pressure 119/44 Arterial Blood Pressure 129/50 Arterial Blood Pressure 120/47 Arterial Blood Pressure 112/47 Arterial Blood Pressure 118/43 Arterial Blood Pressure 115/45 Arterial Blood Pressure 121/46 Arterial Blood Pressure 108/41 Arterial Blood Pressure 128/44 Arterial Blood Pressure 120/43 Arterial Blood Pressure 117/48 72-year-old male who is of an appropriate build is intubated, mechanically ventilated and sedated. Dobbhoff has been placed. HEENT: Anicteric conjunctiva are pink and moist nasal mucosa grossly intact without significant lesions, there is no thrush that he be seen around the oral endotracheal and Dobbhoff tube Neck: The neck is supple without significant lymphadenopathy or thyromegaly. Lungs: There is symmetrical air entry. There are bibasilar crackles there is not significant wheezing being noted Heart: Regular rate and rhythm with an audible S1-S2, soft S4 no severe murmur click or rubs audible Abdomen: Positive bowel sounds soft and nontender without palpable masses or organomegaly. There was no guarding or rebound. Extremities: The extremities have some generalized edema but no significant open lesions are seen her some minimal oozing from the right brachial arterial line Skin patient has minimal oozing from the multiple sites from the anterior chest wall from the surgery and the tubes nothing is purulent and no associated erythema around any of these sites. Neuro: Awake alert oriented to person place and time. There are no acute new gross focal sensory motor deficits. Results CBC & Chem 7: 12/03/17 03:53 12/03/17 18:25 Labs: Abnormal Lab Results - Last 24 Hours (Table) 12/02/17 12/02/17 12/03/17 Range/Units 21:51 23:35 02:01 WBC (3.8-10.6) k/uL RBC (4.30-5.90) m/uL Hgb (13.0-17.5) gm/dL Hct (39.0-53.0) % RDW (11.5-15.5) % Plt Count (150-450) k/uL Neutrophils # (1.3-7.7) k/uL Lymphocytes # (1.0-4.8) k/uL ABG pH (7.35-7.45) ABG pCO2 (35-45) mmHg ABG pO2 (83-108) mmHg ABG Total CO2 (19-24) mmol/L Sodium (137-145) mmol/L Chloride (98-107) mmol/L BUN (9-20) mg/dL Creatinine (0.66-1.25) mg/dL Glucose (74-99) mg/dL POC Glucose (mg/dL) 151 H 134 H 177 H (75-99) mg/dL Calcium (8.4-10.2) mg/dL Magnesium (1.6-2.3) mg/dL Total Bilirubin (0.2-1.3) mg/dL AST (17-59) U/L ALT (21-72) U/L Alkaline Phosphatase (38-126) U/L Total Protein (6.3-8.2) g/dL Albumin (3.5-5.0) g/dL 12/03/17 12/03/17 12/03/17 Range/Units 03:47 03:53 03:53 WBC 16.9 H (3.8-10.6) k/uL RBC 2.71 L (4.30-5.90) m/uL Hgb 7.9 L (13.0-17.5) gm/dL Hct 25.1 L (39.0-53.0) % RDW 19.0 H (11.5-15.5) % Plt Count 144 L (150-450) k/uL Neutrophils # 16.0 H (1.3-7.7) k/uL Lymphocytes # 0.3 L (1.0-4.8) k/uL ABG pH (7.35-7.45) ABG pCO2 (35-45) mmHg ABG pO2 (83-108) mmHg ABG Total CO2 (19-24) mmol/L Sodium 152 H (137-145) mmol/L Chloride 121 H* (98-107) mmol/L BUN 111 H* (9-20) mg/dL Creatinine 1.71 H (0.66-1.25) mg/dL Glucose 187 H (74-99) mg/dL POC Glucose (mg/dL) 197 H (75-99) mg/dL Calcium 7.9 L (8.4-10.2) mg/dL Magnesium 2.5 H (1.6-2.3) mg/dL Total Bilirubin 4.5 H (0.2-1.3) mg/dL AST 71 H (17-59) U/L ALT 115 H (21-72) U/L Alkaline Phosphatase 158 H (38-126) U/L Total Protein 5.0 L (6.3-8.2) g/dL Albumin 2.0 L (3.5-5.0) g/dL 12/03/17 12/03/17 12/03/17 Range/Units 04:34 05:47 07:48 WBC (3.8-10.6) k/uL RBC (4.30-5.90) m/uL Hgb (13.0-17.5) gm/dL Hct (39.0-53.0) % RDW (11.5-15.5) % Plt Count (150-450) k/uL Neutrophils # (1.3-7.7) k/uL Lymphocytes # (1.0-4.8) k/uL ABG pH 7.48 H (7.35-7.45) ABG pCO2 32 L (35-45) mmHg ABG pO2 76 L (83-108) mmHg ABG Total CO2 25 H (19-24) mmol/L Sodium (137-145) mmol/L Chloride (98-107) mmol/L BUN (9-20) mg/dL Creatinine (0.66-1.25) mg/dL Glucose (74-99) mg/dL POC Glucose (mg/dL) 228 H 240 H (75-99) mg/dL Calcium (8.4-10.2) mg/dL Magnesium (1.6-2.3) mg/dL Total Bilirubin (0.2-1.3) mg/dL AST (17-59) U/L ALT (21-72) U/L Alkaline Phosphatase (38-126) U/L Total Protein (6.3-8.2) g/dL Albumin (3.5-5.0) g/dL 12/03/17 12/03/17 12/03/17 Range/Units 10:24 12:03 13:22 WBC (3.8-10.6) k/uL RBC (4.30-5.90) m/uL Hgb (13.0-17.5) gm/dL Hct (39.0-53.0) % RDW (11.5-15.5) % Plt Count (150-450) k/uL Neutrophils # (1.3-7.7) k/uL Lymphocytes # (1.0-4.8) k/uL ABG pH (7.35-7.45) ABG pCO2 (35-45) mmHg ABG pO2 (83-108) mmHg ABG Total CO2 (19-24) mmol/L Sodium (137-145) mmol/L Chloride (98-107) mmol/L BUN (9-20) mg/dL Creatinine (0.66-1.25) mg/dL Glucose (74-99) mg/dL POC Glucose (mg/dL) 236 H 250 H 216 H (75-99) mg/dL Calcium (8.4-10.2) mg/dL Magnesium (1.6-2.3) mg/dL Total Bilirubin (0.2-1.3) mg/dL AST (17-59) U/L ALT (21-72) U/L Alkaline Phosphatase (38-126) U/L Total Protein (6.3-8.2) g/dL Albumin (3.5-5.0) g/dL 12/03/17 12/03/17 12/03/17 Range/Units 14:00 15:19 16:01 WBC (3.8-10.6) k/uL RBC (4.30-5.90) m/uL Hgb (13.0-17.5) gm/dL Hct (39.0-53.0) % RDW (11.5-15.5) % Plt Count (150-450) k/uL Neutrophils # (1.3-7.7) k/uL Lymphocytes # (1.0-4.8) k/uL ABG pH (7.35-7.45) ABG pCO2 (35-45) mmHg ABG pO2 (83-108) mmHg ABG Total CO2 (19-24) mmol/L Sodium (137-145) mmol/L Chloride (98-107) mmol/L BUN (9-20) mg/dL Creatinine (0.66-1.25) mg/dL Glucose (74-99) mg/dL POC Glucose (mg/dL) 208 H 198 H 180 H (75-99) mg/dL Calcium (8.4-10.2) mg/dL Magnesium (1.6-2.3) mg/dL Total Bilirubin (0.2-1.3) mg/dL AST (17-59) U/L ALT (21-72) U/L Alkaline Phosphatase (38-126) U/L Total Protein (6.3-8.2) g/dL Albumin (3.5-5.0) g/dL 12/03/17 12/03/17 12/03/17 Range/Units 17:25 18:03 18:25 WBC (3.8-10.6) k/uL RBC (4.30-5.90) m/uL Hgb (13.0-17.5) gm/dL Hct (39.0-53.0) % RDW (11.5-15.5) % Plt Count (150-450) k/uL Neutrophils # (1.3-7.7) k/uL Lymphocytes # (1.0-4.8) k/uL ABG pH (7.35-7.45) ABG pCO2 (35-45) mmHg ABG pO2 (83-108) mmHg ABG Total CO2 (19-24) mmol/L Sodium 151 H (137-145) mmol/L Chloride (98-107) mmol/L BUN (9-20) mg/dL Creatinine (0.66-1.25) mg/dL Glucose (74-99) mg/dL POC Glucose (mg/dL) 185 H 170 H (75-99) mg/dL Calcium (8.4-10.2) mg/dL Magnesium (1.6-2.3) mg/dL Total Bilirubin (0.2-1.3) mg/dL AST (17-59) U/L ALT (21-72) U/L Alkaline Phosphatase (38-126) U/L Total Protein (6.3-8.2) g/dL Albumin (3.5-5.0) g/dL 12/03/17 12/03/17 Range/Units 18:54 20:28 WBC (3.8-10.6) k/uL RBC (4.30-5.90) m/uL Hgb (13.0-17.5) gm/dL Hct (39.0-53.0) % RDW (11.5-15.5) % Plt Count (150-450) k/uL Neutrophils # (1.3-7.7) k/uL Lymphocytes # (1.0-4.8) k/uL ABG pH (7.35-7.45) ABG pCO2 (35-45) mmHg ABG pO2 (83-108) mmHg ABG Total CO2 (19-24) mmol/L Sodium (137-145) mmol/L Chloride (98-107) mmol/L BUN (9-20) mg/dL Creatinine (0.66-1.25) mg/dL Glucose (74-99) mg/dL POC Glucose (mg/dL) 166 H 178 H (75-99) mg/dL Calcium (8.4-10.2) mg/dL Magnesium (1.6-2.3) mg/dL Total Bilirubin (0.2-1.3) mg/dL AST (17-59) U/L ALT (21-72) U/L Alkaline Phosphatase (38-126) U/L Total Protein (6.3-8.2) g/dL Albumin (3.5-5.0) g/dL Laboratory Results WBC 16.9 k/uL (3.8-10.6) H 12/03/17 03:53 RBC 2.71 m/uL (4.30-5.90) L 12/03/17 03:53 Hgb 7.9 gm/dL (13.0-17.5) L 12/03/17 03:53 Hct 25.1 % (39.0-53.0) L 12/03/17 03:53 MCV 92.6 fL (80.0-100.0) 12/03/17 03:53 MCH 29.2 pg (25.0-35.0) 12/03/17 03:53 MCHC 31.5 g/dL (31.0-37.0) 12/03/17 03:53 RDW 19.0 % (11.5-15.5) H 12/03/17 03:53 Plt Count 144 k/uL (150-450) L 12/03/17 03:53 Neutrophils % 95 % 12/03/17 03:53 Neutrophils % (Manual) 93 % 12/02/17 04:26 Lymphocytes % 2 % 12/03/17 03:53 Lymphocytes % (Manual) 2 % 12/02/17 04:26 Monocytes % 2 % 12/03/17 03:53 Monocytes % (Manual) 5 % 12/02/17 04:26 Eosinophils % 0 % 12/03/17 03:53 Eosinophils % (Manual) 2 % 11/16/17 10:52 Basophils % 0 % 12/03/17 03:53 Neutrophils # 16.0 k/uL (1.3-7.7) H 12/03/17 03:53 Neutrophils # (Manual) 11.53 k/uL (1.3-7.7) H 12/02/17 04:26 Lymphocytes # 0.3 k/uL (1.0-4.8) L 12/03/17 03:53 Lymphocytes # (Manual) 0.25 k/uL (1.0-4.8) L 12/02/17 04:26 Monocytes # 0.4 k/uL (0-1.0) 12/03/17 03:53 Monocytes # (Manual) 0.62 k/uL (0-1.0) 12/02/17 04:26 Eosinophils # 0.0 k/uL (0-0.7) 12/03/17 03:53 Eosinophils # (Manual) 0.10 k/uL (0-0.7) 11/16/17 10:52 Basophils # 0.0 k/uL (0-0.2) 12/03/17 03:53 Nucleated RBCs 0 /100 WBC (0-0) 12/02/17 04:26 Manual Slide Review Performed 12/02/17 04:26 Large Platelets Present 11/29/17 05:00 Polychromasia Present 11/29/17 05:00 Hypochromasia Moderate 12/03/17 03:53 Hypochromasia (manual) Present 11/26/17 03:05 Poikilocytosis Slight 12/03/17 03:53 Poikilocytosis (manual Present 11/29/17 05:00 Anisocytosis Slight 12/03/17 03:53 Target Cells Present 11/29/17 05:00 Ovalocytes Present 11/16/17 10:52 Crenated Cell Present 12/02/17 04:26 PT 11.8 sec (9.0-12.0) 11/29/17 05:00 INR 1.2 (<1.2) H 11/29/17 05:00 APTT 30.7 sec (22.0-30.0) H 11/29/17 05:00 Fibrinogen 522 mg/dL (200-500) H 11/22/17 18:20 Sample Site nida 12/03/17 04:34 ABG pH 7.48 (7.35-7.45) H 12/03/17 04:34 ABG pCO2 32 mmHg (35-45) L 12/03/17 04:34 ABG pO2 76 mmHg (83-108) L 12/03/17 04:34 ABG HCO3 24 mmol/L (21-25) 12/03/17 04:34 ABG Total CO2 25 mmol/L (19-24) H 12/03/17 04:34 ABG O2 Saturation 96.4 % (94-97) 12/03/17 04:34 ABG Base Excess 0.5 mmol/L 12/03/17 04:34 ABG Hematocrit 24 % (34.0-46.0) L 11/17/17 18:12 Joseluis Test Yes 12/03/17 04:34 ABG Sodium 141 mmol/L (135-146) 11/17/17 18:12 ABG Potassium 4.7 mmol/L (3.4-4.5) H 11/17/17 18:12 ABG Ionized Calcium 5.1 mg/dL (4.5-5.3) 11/17/17 18:12 ABG Glucose 165 mg/dL (75-99) H 11/17/17 18:12 ABG Lactic Acid 1.7 mmol/L (0.5-1.6) H 11/24/17 20:35 Hemoglobin 7.7 gm/dL (13.0-17.5) L 11/17/17 18:12 FiO2 50 % 12/03/17 04:34 Sodium 151 mmol/L (137-145) H 12/03/17 18:25 Potassium 4.0 mmol/L (3.5-5.1) 12/03/17 03:53 Chloride 121 mmol/L (98-107) H* 12/03/17 03:53 Carbon Dioxide 23 mmol/L (22-30) 12/03/17 03:53 Anion Gap 8 mmol/L 12/03/17 03:53 BUN 111 mg/dL (9-20) H* 12/03/17 03:53 Creatinine 1.71 mg/dL (0.66-1.25) H 12/03/17 03:53 Est GFR (CKD-EPI)AfAm 45 (>60 ml/min/1.73 sqM) 12/03/17 03:53 Est GFR (CKD-EPI)NonAf 39 (>60 ml/min/1.73 sqM) 12/03/17 03:53 Glucose 187 mg/dL (74-99) H 12/03/17 03:53 POC Glucose (mg/dL) 178 mg/dL (75-99) H 12/03/17 20:28 POC Glu Furniture [employer] ID Javan Mario 12/03/17 20:[address] Glu mg/dL 146 11/16/17 10:52 Hemoglobin A1c 6.7 % (4.0-6.0) H 11/16/17 10:52 Calcium 7.9 mg/dL (8.4-10.2) L 12/03/17 03:53 Ionized Calcium Leighann 5.1 mg/dL (4.5-5.3) 12/03/17 03:53 Phosphorus 4.1 mg/dL (2.5-4.5) 12/03/17 03:53 Magnesium 2.5 mg/dL (1.6-2.3) H 12/03/17 03:53 Iron 16 ug/dL (65-175) L 11/28/17 04:20 TIBC 208 ug/dL (228-460) L 11/28/17 04:20 Iron Saturation 7.69 (15.00-50.00) L 11/28/17 04:20 Ferritin 679.6 ng/mL (22.0-322.0) H 11/28/17 04:20 Total Bilirubin 4.5 mg/dL (0.2-1.3) H 12/03/17 03:53 AST 71 U/L (17-59) H 12/03/17 03:53 ALT 115 U/L (21-72) H 12/03/17 03:53 Alkaline Phosphatase 158 U/L (38-126) H 12/03/17 03:53 Ammonia 37 umol/L (<30) H 11/27/17 12:00 CK-MB (CK-2) 8.4 ng/mL (0.0-2.4) H* 11/27/17 04:05 Total Protein 5.0 g/dL (6.3-8.2) L 12/03/17 03:53 Albumin 2.0 g/dL (3.5-5.0) L 12/03/17 03:53 Prealbumin <5.0 mg/dL (18.0-42.0) L 12/01/17 05:00 Triglycerides 100 mg/dL (<150) 11/27/17 04:05 Cholesterol 68 mg/dL (<200) 11/27/17 04:05 LDL Cholesterol, Calc 36 mg/dL (0-99) 11/27/17 04:05 HDL Cholesterol 12 mg/dL (40-60) L 11/27/17 04:05 Procalcitonin 1.79 ng/mL (0.02-0.09) H 11/27/17 09:50 TSH 2.410 mIU/L (0.465-4.680) 11/16/17 10:52 Cortisol 29 ug/dL 11/26/17 03:05 Arterial Blood Potassium 4.7 mmol/L (3.4-4.5) H 11/17/17 18:12 Arterial Blood Glucose 165 mg/dL (75-99) H 11/17/17 18:12 Urine Color Yellow 11/22/17 20:10 Urine Appearance Turbid (Clear) 11/22/17 20:10 Urine pH 5.0 (5.0-8.0) 11/22/17 20:10 Ur Specific [place] 1.017 (1.001-1.035) 11/22/17 20:10 Urine Protein 2+ (Negative) H 11/22/17 20:10 Urine Glucose (UA) Negative (Negative) 11/22/17 20:10 Urine Ketones Negative (Negative) 11/22/17 20:10 Urine Blood Large (Negative) H 11/22/17 20:10 Urine Nitrite Negative (Negative) 11/22/17 20:10 Urine Bilirubin Negative (Negative) 11/22/17 20:10 Urine Urobilinogen <2.0 mg/dL (<2.0) 11/22/17 20:10 Ur Leukocyte Esterase Moderate (Negative) H 11/22/17 20:10 Urine RBC >182 /hpf (0-5) H 11/22/17 20:10 Urine WBC 37 /hpf (0-5) H 11/22/17 20:10 Hyaline Casts 76 /lpf (0-2) H 11/22/17 20:10 Urine Mucus Moderate /hpf (None) H 11/22/17 20:10 Urine Sperm Many /hpf (None) H 11/22/17 20:10 Ur Random Sodium 12 mmol/L 11/22/17 20:09 Stool Occult Blood Positive (Negative) 11/24/17 09:10 Random Vancomycin 14.4 ug/mL 11/26/17 03:05 Heparin-Ind Plt Ab Scrn 0.129 OD (<0.4) 11/22/17 04:08 C. difficile (EIA) Intrp Negative (Negative) 12/03/17 14:41 Blood Type O Positive 11/29/17 08:15 Blood Type Recheck No 11/29/17 08:15 Antibody Screen NEGATIVE 11/29/17 08:15 Crossmatch See Detail 11/29/17 08:15 Transfuse Plasma 11/24/17 11/24/17 11:19 Transfuse Platelets 11/23/17 11/23/17 12:54 Spec Expiration Date 12/02/2017 - 231411/29/17 08:15 Microbiology 11/24/17 10:25 Blood Blood Culture - Final No Growth after 144 hours 11/24/17 10:51 Blood Blood Culture - Final No Growth after 144 hours 11/24/17 20:30 Sputum Gram Stain - Final 11/24/17 20:30 Sputum Sputum Culture - Final Klebsiella oxytoca 11/24/17 10:20 Urine,Catheterized Urine Culture - Final Assessment and Plan (1) Gram-negative pneumonia Narrative/Plan: 72-year-old male presents to Hospital with progressive shortness of breath is evidence of extensive cardiomyopathy, coronary artery disease and mitral valve disease. He subsequently was taken to the operating room for coronary artery bypass grafting procedure as well as repair of the mitral valve. Is a difficult postoperative course in that he has had recurrent respiratory failure requiring reintubation now on the second event. The patient was not evidence of Klebsiella oxytoca pneumonia and treatment was begun with Zosyn which is an excellent choice for this isolated pathogen. The patient however is now had worsening of his respiratory status required reintubation and there has been some slight worsening of his leukocytosis that has been somewhat persistent. The this time it appears that the respiratory failure was related to attempts for feeding tube placement, and after intubation has had successful feeding tube placement. Hopefully with enhance nutrition there will be some further improvement of his status. The leukocytosis is likely reactionary at this time given the difficulties of reintubation. Would maintain current antibiotic therapy given that he is not having other acute changes. If leukocytosis worsens , or oxygenation declined with then consider change of antimicrobial therapy. Patient is developed diarrhea possibly related to his tube feeds, C. diff was sent and is negative at this time. Patient on specialty ICU bedfor the stage II on the buttocks are being treated with the optifoam dressings Current Visit: Yes Status: Acute Code(s): J15.6 - PNEUMONIA DUE TO OTHER GRAM-NEGATIVE BACTERIA SNOMED Code(s): 126057094 (2) Congestive heart failure with cardiomyopathy and cardiomegaly Current Visit: Yes Status: Acute Code(s): I50.9 - HEART FAILURE, UNSPECIFIED ; I42.9 - CARDIOMYOPATHY, UNSPECIFIED; I51.7 - CARDIOMEGALY SNOMED Code(s): 882649916558432 (3) S/P mitral valve repair Current Visit: Yes Status: Acute Code(s): Z98.890 - OTHER SPECIFIED POSTPROCEDURAL STATES SNOMED Code(s): 583591141 (4) S/P CABG x 4 Current Visit: Yes Status: Acute Code(s): Z95.1 - PRESENCE OF AORTOCORONARY BYPASS GRAFT SNOMED Code(s): 513163112
[2017-12-03 22:17] LABS: Glucose,Whole Blood 166 mg/dL (75-99)
[2017-12-03 23:34] LABS: Glucose,Whole Blood 152 mg/dL (75-99)
[2017-12-04] MEDS: PROPOFOL 1,000 MG in EMPTY BAG 1 BAG IV SCH ×3 (01:08→16:49)
[2017-12-04 02:15] LABS: Glucose,Whole Blood 111 mg/dL (75-99)
[2017-12-04 04:17] LABS: Glucose,Whole Blood 128 mg/dL (75-99)
[2017-12-04 04:20] LABS: ABG Base Excess 1.3 mmol/L; ABG HCO3 25 mmol/L (21-25); ABG Oxygen Saturation 95.4 % (94-97); ABG PCO2 36 mmHg (35-45); ABG PH 7.45 (7.35-7.45); ABG PO2 71 mmHg (83-108); ABG TCO2 26 mmol/L (19-24)
[2017-12-04 04:35] LABS: Anisocytosis Slight; Basophils # (A) 0.1 k/uL (0-0.2); Basophils % (A) 0 %; Eosinophils # (A) 0.1 k/uL (0-0.7); Eosinophils % (A) 1 %; HCT 22.9 % (39.0-53.0); HGB 7.5 gm/dL (13.0-17.5); Hypochromasia Moderate; Lymphocytes # (A) 0.3 k/uL (1.0-4.8); Lymphocytes % (A) 2 %; MCH 30.6 pg (25.0-35.0); MCHC 32.8 g/dL (31.0-37.0); MCV 93.4 fL (80.0-100.0); Macrocytosis Slight; Mean Platelet Volume 11.3; Monocytes # (A) 0.4 k/uL (0-1.0); Monocytes % (A) 3 %; Neutrophils # (A) 12.9 k/uL (1.3-7.7); Neutrophils % (A) 93 %; Platelet Count 112 k/uL (150-450); Poikilocytosis Slight; RBC 2.45 m/uL (4.30-5.90); RDW 19.4 % (11.5-15.5); WBC 13.9 k/uL (3.8-10.6)
[2017-12-04 04:55] LABS: Albumin 1.8 g/dL (3.5-5.0); Magnesium 2.4 mg/dL (1.6-2.3); Phosphorus 3.6 mg/dL (2.5-4.5); Potassium 3.6 mmol/L (3.5-5.1); Total Protein 4.8 g/dL (6.3-8.2)
[2017-12-04 05:58] LABS: Glucose,Whole Blood 128 mg/dL (75-99)
[2017-12-04] MEDS ORDERED: POTASSIUM BICARBONATE/CIT AC 20 MEQ TABLET.EFF NG-TUBE SCH ×3 (06:00→20:00)
--- NOTE | 2017-12-04 06:15 | XR ---
EXAMINATION TYPE: XR chest 1V portable DATE OF EXAM: 12/04/2017 HISTORY: post cardiac surgery, post intubation. REFERENCE: Previous study dated 12/03/2017. FINDINGS: There has been a midline sternotomy and valvular replacement. The patient is ET tube is been advanced and is now 2.3 cm above the daiana. The patient is NG tube is not identified and presumably been removed. Additional tubing projects adjacent to the ET tube. I'm uncertain of the nature of this. The heart is enlarged. There is worsening left basilar infiltrate. There are bilateral effusions. IMPRESSION: 1. CARDIOMEGALY. 2. WORSENING LEFT BASILAR INFILTRATE. 3. BILATERAL EFFUSIONS, GREATER ON THE LEFT THAN THE RIGHT.
[2017-12-04] MEDS: IPRATROPIUM-ALBUTEROL 3 ML NEB INHALATION SCH ×5 (07:31→23:08)
[2017-12-04 08:33] LABS: Glucose,Whole Blood 115 mg/dL (75-99)
--- NOTE | 2017-12-04 08:53 | P.PN ---
Subjective Progress Note Date: 12/04/17 Principal diagnosis: Respiratory failure status post bypass grafting postop day #11 status post mitral valve repair, postop day #11 Progress note dated 11/29/2017 72-year-old male who is postop day #11, status post bypass grafting and mitral valve repair. He also has a history of shock, cardiomyopathy, diabetes mellitus , mitral regurgitation, history of remote nicotine dependence postoperative anemia diabetic retinopathy acute hepatocellular injury acute kidney injury ischemic colitis thrombocytopenia, chronic atrial fibrillation and hypoxemic respiratory failure. The patient currently is on the ventilator and the volume control plus mode. Vent settings include the assist control mode rate of 14, tidal volume 500 FiO2 35% PEEP of 5. PO2 was 149 pCO2 was 37 and pH of 7.46. The patient's currently not on any sedation. I switch him over to PSV of 13 CPAP of 5. Currently he is on IV Primacor 0.2 mics per kilogram per minute, insulin at 2.5 units an hour saline IV KVO and vital high protein at 42 with a goal of 42 mL an hour. The patient was admitted on the had a surgery on November 17 was extubated initially on the and reintubated on November 24. We did drop his FiO2 from 35-30% given a PaO2 of 149. Chest x-ray shows possible changes as well as a right-sided pleural effusion. Relatively small. Progress note dated 11/30/2017 72-year-old male postop day #12, status post bypass grafting and mitral valve repair. The patient also has a history of shock, cardiomyopathy, diabetes mellitus, mitral regurgitation, remote nicotine dependence, postoperative anemia , diabetic retinopathy, hepatocellular injury, acute kidney injury, ischemic colitis, thrombocytopenia, chronic atrial fibrillation and hypoxemic respiratory failure. The patient currently is on the ventilator. The mode is volume assist control with a rate of 14, tidal volume 500, FiO2 30% and PEEP of 5. On those settings, the blood gases show a PaO2 of 107 pCO2 of 34 and a pH of 7.49. The patient is receiving a saline IV at 10 mL an hour Primacor 0.2 g insulin at 3.5 units an hour and vital 1.2 at 62 with a goal of 62 mL an hour. The patient spent about 7 hours on PSV 13 and CPAP of 5 yesterday. We cannot extubate him because the patient had did not have a cuff leak. We did add Decadron to the regimen at 6 mg every 6 hours 4 doses. The chest x-ray stable. Her labs are stable. White count is 12.8 hemoglobin 8 hematocrit 24.2 platelet count 136,000. Sodium 146 potassium 3.8 chloride is 113 CO2 26 anion gap normal BUN and creatinine are 131 and 1.6. His mental status is still not great. He has open his eyes. His stare is blank. Doesn't really follow commands well. This may be the limiting factor in terms of him being extubated. Progress note dated 12/01/2017 72-year-old male, postoperative day #13, is post bypass grafting and mitral valve repair. The patient has a history of cardiomyopathy shock liver diabetes mellitus mitral regurgitation remote nicotine dependence postoperative anemia that retinopathy acute kidney injury ischemic colitis thrombocytopenia chronic atrial fibrillation and hypoxemic respiratory failure. I was able to extubate the patient yesterday. We had to extubate him to BiPAP therapy. In addition, the patient needed sedation in the form of dexmedetomidine. Subsequently, the patient developed hypotension. He had some fluid boluses and then he required norepinephrine at 3 mcg/m. Remains on Primacor 0.2 g, dexmedetomidine 0.6, and insulin at 1 unit per hour. His IV is dextrose half-normal saline at 50 mL an hour. His BiPAP settings included IPAP of 12, EPAP of 5 and 40%. He is still not really with it mentally. He does have a blank stare on his face. Seemed to respond minimally. I don't think this is she changed that much. Chest x-ray and Lyme panel shows a touch of fluid overload with some bibasilar atelectasis and small effusions. Progress note dated 12/02/2017 72-year-old male, postop day #14, status post bypass grafting and mitral valve repair. The patient has a history of cardiomyopathy shock liver diabetes mitral regurgitation remote nicotine dependence postoperative anemia acute kidney injury ischemic colitis thrombocytopenia chronic atrial fibrillation and hypoxemic respiratory failure. The patient has recently had a difficult time being extubated. I was able to extubate him on November 30. The patient currently remains on BiPAP with an EPAP of 5 and an IPAP of 12. The FiO2 is 40% . Currently, the norepinephrine has been turned off. It was previously running at 2 mcg/m. He remains on Primacor at 0.2 mics dexmedetomidine at 0.4 g insulin at 1.5 units an hour dextrose at 50 mL an hour and a saline IV at 20 mL an hour. Attempts at placing a Dobbhoff tube yesterday were unsuccessful. The patient's mental status remains poor. He does not is set up and down the seems to understand when you speak to him but does have a blank stare on his face. Progress note dated 12/03/2017 72-year-old male, postoperative day #15, status post bypass grafting and mitral valve repair. The patient has a history of multiple medical problems. Recently , he was extubated and doing reasonably well. Unfortunately, yesterday, while attempting to place a Dobbhoff tube, the tube ended up in the lung and the patient developed acute respiratory failure and had to be reintubated at about 4 :30 PM yesterday. The tube was attempted to be placed by gastroenterology. Anyway, the patient back on the volume assist control mode with a rate of 22 tidal volume of 450. FiO2 is 50% and PEEP of 5. Arterial blood gases show a PaO2 of 76 a PaCO2 of 32 and a pH 7.48. Gases consistent with a relative hypoxemia and a respiratory alkalosis. The patient is on Primacor at 0.2 mcg/kg /m, propofol at 15 mcg/kg/m, norepinephrine at 2.5 mcg/m dextrose at 40 mL an hour insulin drip at 2.5 units per hour vital high protein 1.2 at 70 with a goal of 70 mL an hour. Apparently, the patient and the family has decided against tracheostomy and PEG tube in my plan for this patient would be to get him to the point of improvement and hopefully extubation again with the idea that he would not be reintubated. I believe he was reintubated again yesterday only because of the complication from the Dobbhoff tube being placed in the right lung. Progress note dated 12/04/2017 72-year-old male, postop day #16, status post bypass grafting along with mitral valve repair. The patient has a history of multiple medical problems and has had a very aryan postoperative course. More recently, the patient needed to be reintubated when he developed respiratory distress following the attempted placement of a Dobbhoff feeding tube. Currently, the patient on the volume assist control mode, rate 22 with a spontaneous rate of 28 tidal volume 450 FiO2 50% PEEP of 5. The patient's arterial blood gases show a PaO2 of 71 a PaCO2 of 36 and a pH of 7.45. This is consistent with a mild respiratory alkalosis. The patient's on an insulin drip at 3.5 units per hour, Primacor 0.2 mics per kilogram per minute, propofol at 20 mics per kilogram per minute norepinephrine is currently off these receiving vital 1.2 at a rate of 70 with a goal of 70 mL an hour. The patient is also receiving water flushes. Chest x- ray shows bilateral infiltrates left greater than right and small pleural effusions. According to the nurses, the patient has had a pretty much stable overnight. Apparently, the family is absolutely against tracheostomy and PEG tube placement. Objective - Vital Signs Vital signs: Vital Signs Temp 98.3 F 12/04/17 04:00 Pulse 93 12/04/17 07:37 Resp 26 H 12/04/17 07:00 BP 97/56 12/04/17 07:00 Pulse Ox 97 12/04/17 07:00 Intake & Output 12/03/17 12/04/17 12/04/17 18:59 06:59 18:59 Intake Total 2989.880 6625.408 127.976 Output Total 1275 885 75 Balance 262.655 1290.408 52.976 Weight 83.3 kg 83.4 kg Intake: IV 206 108.6 7.6 Dextrose 5% in Water 1, 120 000 ml @ 40 mls/hr IV . Q24H [facility]AN[facility] Rx#:[id number] Milrinone-D5w Pmx 20 mg 50.6 4.6 In Dextrose/Water 1 100ml .bag @ 0.2 MCG/KG/MIN 4. 66 mls/hr IV .[id number] JANNA Rx#:[id number] Piperacillin-Tazobactam 3 25.0 .375 gm In Dextrose/Water 1 50ml.bag @ 12.5 mls/hr IVPB Q12HR [facility]ANNA Rx#: [id number] Piperacillin-Tazobactam 3 50 .375 gm In Dextrose/Water 1 50ml.bag @ 12.5 mls/hr IVPB Q8HR JANNA Rx#: [id number] Pressure Bags 36 33 3 Intake, IV Titration 401.729 149.808 50.376 Amount Calcium Chloride 1,000 mg 100 In Sodium Chloride 0.9% 100 ml @ 100 mls/hr IVPB ONCE STA Rx#:[id number] Insulin Regular 100 unit 61.407 31.160 In Sodium Chloride 0.9% 100 ml @ Per Protocol IV .Q0M [facility] Rx#:[id number] Milrinone-D5w Pmx 20 mg 100 In Dextrose/Water 1 100ml .bag @ 0.2 MCG/KG/MIN 4. 66 mls/hr IV .[id number] JANNA Rx#:[id number] Norepinephrine 16 mg In 40.322 Dextrose 5% in Water 250 ml @ Titrate IV .Q0M [facility] Rx#:[id number] Propofol 1,000 mg In 100.000 118.648 50.376 Empty Bag 1 bag @ Titrate IV .Q0M [facility] Rx#: [id number] Oral 180 Tube Feeding 910 1050 70 Other 1500 Output: Urine 1075 750 75 Stool 200 135 Other: Voiding Method Indwelling Catheter Indwelling Catheter # Bowel Movements 1 ABP, PAP, CO, CI - Last Documented Arterial Blood Pressure 104/43 Pulmonary Artery Pressure 40/15 Cardiac Output 5.0 Cardiac Index 2.7 - Exam No acute distress, sedated with propofol, intubated, with an NG tube in place also. HEENT examination is grossly unremarkable. Mucous membranes are moist. Neck supple. Full range of motion. No adenopathy thyromegaly or neck vein distention. Cardiovascular examination reveals irregular rhythm rate. S1-S2 normal. No S3 or S4. No discernible murmur noted. Heart sounds are distant. Heart sounds are very distant. Lungs reveal scattered diffuse rhonchi. Breath sounds equal. A few scattered crackles and wheezes are noted. Abdomen soft, bowel sounds are heard. No masses or tenderness. Extremities are intact. Minimal edema is noted. No cyanosis or clubbing. Skin is without rash or lesion. Neurologic examination is difficult to assess. - Labs CBC & Chem 7: 12/04/17 04:28 12/04/17 04:28 Labs: Abnormal Lab Results - Last 24 Hours (Table) 12/03/17 12/03/17 12/03/17 Range/Units 10:24 12:03 13:22 WBC (3.8-10.6) k/uL RBC (4.30-5.90) m/uL Hgb (13.0-17.5) gm/dL Hct (39.0-53.0) % RDW (11.5-15.5) % Plt Count (150-450) k/uL Neutrophils # (1.3-7.7) k/uL Lymphocytes # (1.0-4.8) k/uL ABG pO2 (83-108) mmHg ABG Total CO2 (19-24) mmol/L Sodium (137-145) mmol/L Chloride (98-107) mmol/L BUN (9-20) mg/dL Creatinine (0.66-1.25) mg/dL Glucose (74-99) mg/dL POC Glucose (mg/dL) 236 H 250 H 216 H (75-99) mg/dL Calcium (8.4-10.2) mg/dL Magnesium (1.6-2.3) mg/dL Total Bilirubin (0.2-1.3) mg/dL AST (17-59) U/L ALT (21-72) U/L Alkaline Phosphatase (38-126) U/L Total Protein (6.3-8.2) g/dL Albumin (3.5-5.0) g/dL 12/03/17 12/03/17 12/03/17 Range/Units 14:00 15:19 16:01 WBC (3.8-10.6) k/uL RBC (4.30-5.90) m/uL Hgb (13.0-17.5) gm/dL Hct (39.0-53.0) % RDW (11.5-15.5) % Plt Count (150-450) k/uL Neutrophils # (1.3-7.7) k/uL Lymphocytes # (1.0-4.8) k/uL ABG pO2 (83-108) mmHg ABG Total CO2 (19-24) mmol/L Sodium (137-145) mmol/L Chloride (98-107) mmol/L BUN (9-20) mg/dL Creatinine (0.66-1.25) mg/dL Glucose (74-99) mg/dL POC Glucose (mg/dL) 208 H 198 H 180 H (75-99) mg/dL Calcium (8.4-10.2) mg/dL Magnesium (1.6-2.3) mg/dL Total Bilirubin (0.2-1.3) mg/dL AST (17-59) U/L ALT (21-72) U/L Alkaline Phosphatase (38-126) U/L Total Protein (6.3-8.2) g/dL Albumin (3.5-5.0) g/dL 12/03/17 12/03/17 12/03/17 Range/Units 17:25 18:03 18:25 WBC (3.8-10.6) k/uL RBC (4.30-5.90) m/uL Hgb (13.0-17.5) gm/dL Hct (39.0-53.0) % RDW (11.5-15.5) % Plt Count (150-450) k/uL Neutrophils # (1.3-7.7) k/uL Lymphocytes # (1.0-4.8) k/uL ABG pO2 (83-108) mmHg ABG Total CO2 (19-24) mmol/L Sodium 151 H (137-145) mmol/L Chloride (98-107) mmol/L BUN (9-20) mg/dL Creatinine (0.66-1.25) mg/dL Glucose (74-99) mg/dL POC Glucose (mg/dL) 185 H 170 H (75-99) mg/dL Calcium (8.4-10.2) mg/dL Magnesium (1.6-2.3) mg/dL Total Bilirubin (0.2-1.3) mg/dL AST (17-59) U/L ALT (21-72) U/L Alkaline Phosphatase (38-126) U/L Total Protein (6.3-8.2) g/dL Albumin (3.5-5.0) g/dL 12/03/17 12/03/17 12/03/17 Range/Units 18:54 20:28 22:15 WBC (3.8-10.6) k/uL RBC (4.30-5.90) m/uL Hgb (13.0-17.5) gm/dL Hct (39.0-53.0) % RDW (11.5-15.5) % Plt Count (150-450) k/uL Neutrophils # (1.3-7.7) k/uL Lymphocytes # (1.0-4.8) k/uL ABG pO2 (83-108) mmHg ABG Total CO2 (19-24) mmol/L Sodium (137-145) mmol/L Chloride (98-107) mmol/L BUN (9-20) mg/dL Creatinine (0.66-1.25) mg/dL Glucose (74-99) mg/dL POC Glucose (mg/dL) 166 H 178 H 166 H (75-99) mg/dL Calcium (8.4-10.2) mg/dL Magnesium (1.6-2.3) mg/dL Total Bilirubin (0.2-1.3) mg/dL AST (17-59) U/L ALT (21-72) U/L Alkaline Phosphatase (38-126) U/L Total Protein (6.3-8.2) g/dL Albumin (3.5-5.0) g/dL 12/03/17 12/04/17 12/04/17 Range/Units 23:32 02:14 04:16 WBC (3.8-10.6) k/uL RBC (4.30-5.90) m/uL Hgb (13.0-17.5) gm/dL Hct (39.0-53.0) % RDW (11.5-15.5) % Plt Count (150-450) k/uL Neutrophils # (1.3-7.7) k/uL Lymphocytes # (1.0-4.8) k/uL ABG pO2 (83-108) mmHg ABG Total CO2 (19-24) mmol/L Sodium (137-145) mmol/L Chloride (98-107) mmol/L BUN (9-20) mg/dL Creatinine (0.66-1.25) mg/dL Glucose (74-99) mg/dL POC Glucose (mg/dL) 152 H 111 H 128 H (75-99) mg/dL Calcium (8.4-10.2) mg/dL Magnesium (1.6-2.3) mg/dL Total Bilirubin (0.2-1.3) mg/dL AST (17-59) U/L ALT (21-72) U/L Alkaline Phosphatase (38-126) U/L Total Protein (6.3-8.2) g/dL Albumin (3.5-5.0) g/dL 12/04/17 12/04/17 12/04/17 Range/Units 04:19 04:28 04:28 WBC 13.9 H (3.8-10.6) k/uL RBC 2.45 L (4.30-5.90) m/uL Hgb 7.5 L (13.0-17.5) gm/dL Hct 22.9 L (39.0-53.0) % RDW 19.4 H (11.5-15.5) % Plt Count 112 L (150-450) k/uL Neutrophils # 12.9 H (1.3-7.7) k/uL Lymphocytes # 0.3 L (1.0-4.8) k/uL ABG pO2 71 L (83-108) mmHg ABG Total CO2 26 H (19-24) mmol/L Sodium 150 H (137-145) mmol/L Chloride 120 H* (98-107) mmol/L BUN 107 H* (9-20) mg/dL Creatinine 1.50 H (0.66-1.25) mg/dL Glucose 122 H (74-99) mg/dL POC Glucose (mg/dL) (75-99) mg/dL Calcium 8.0 L (8.4-10.2) mg/dL Magnesium 2.4 H (1.6-2.3) mg/dL Total Bilirubin 3.0 H (0.2-1.3) mg/dL AST 68 H (17-59) U/L ALT 102 H (21-72) U/L Alkaline Phosphatase 162 H (38-126) U/L Total Protein 4.8 L (6.3-8.2) g/dL Albumin 1.8 L (3.5-5.0) g/dL 12/04/17 12/04/17 Range/Units 05:57 08:31 WBC (3.8-10.6) k/uL RBC (4.30-5.90) m/uL Hgb (13.0-17.5) gm/dL Hct (39.0-53.0) % RDW (11.5-15.5) % Plt Count (150-450) k/uL Neutrophils # (1.3-7.7) k/uL Lymphocytes # (1.0-4.8) k/uL ABG pO2 (83-108) mmHg ABG Total CO2 (19-24) mmol/L Sodium (137-145) mmol/L Chloride (98-107) mmol/L BUN (9-20) mg/dL Creatinine (0.66-1.25) mg/dL Glucose (74-99) mg/dL POC Glucose (mg/dL) 128 H 115 H (75-99) mg/dL Calcium (8.4-10.2) mg/dL Magnesium (1.6-2.3) mg/dL Total Bilirubin (0.2-1.3) mg/dL AST (17-59) U/L ALT (21-72) U/L Alkaline Phosphatase (38-126) U/L Total Protein (6.3-8.2) g/dL Albumin (3.5-5.0) g/dL Assessment and Plan Assessment: Assessment Status post bypass grafting, postop day #16 Status post reintubation on December 02 secondary to misplacement of Dobbhoff feeding tube. Postoperative ventilator management, with failure to wean, status post extubation to BiPAP therapy on 11/30/2017 Status post initial extubation on November 18 and reintubation on November 24. Postop day #16, status post mitral valve repair for mitral regurgitation Ischemic cardiomyopathy Type 2 diabetes mellitus History of kidney nicotine dependence Postoperative anemia Diabetic retinopathy Shock liver Acute kidney injury Ischemic colitis Thrombocytopenia Chronic atrial fibrillation Acute hypoxemic respiratory failure Plan: Plan dated 11/29/2017 The patient's labs and x-rays are all reviewed. Medications are reviewed. The patient will be switched over to pressure support of 13 and CPAP of 5. We'll drop the FiO2 down to 30%. I'll repeat a blood gas in one hour. The patient's chest x-ray shows a right-sided pleural effusion. The patient was initially extubated on November 18 and reintubated on November 24. The patient remains on IV Primacor insulin drip at KVO fluids and is being nourished vital high protein at goal. Blood gases are reasonable. PaO2 of 149 PaCO2 37 and a pH of 7.46. The patient's currently not on any sedation. We'll attempt to wean him if possible. White count is 17.4 hemoglobin 6.9 hematocrit 22.0 platelet count 106 ,000. Sodium is 147 potassium 3.8 chloride is 113 and CO2 is 26 BUN and creatinine are 131 and 1.0. AST 123 ALT 212 alkaline phosphatase 204. Total bilirubin is 3.7. Sputum from November showed Klebsiella oxytoca. Arterial blood gases will be repeated in one hour. The patient needs additional water flushes given the increasing sodium and chloride levels. Prognosis is guarded. Critical care time 38 minutes Plan dated 11/30/2017 The patient's labs and x-rays are reviewed. Chest x-ray remains very similar to yesterday's chest x-ray. The patient will be placed back on pressure support and CPAP. Would consider weaning parameters blood gas and a cuff leak. Yesterday, the patient did not have a cuff leak. We added Decadron 6 mg every 6 hours for 4 doses. The patient's medications are reviewed. I'm hoping that we can get the patient towards extubation here in either today or tomorrow. Additional recommendations and suggestions are forthcoming. Prognosis is guarded. The patient remains on appropriate medications. The case was discussed with cardiothoracic surgery. Critical care time 33 minutes Plan dated 12/01/2017 The patient's labs x-rays a medications are reviewed. Chest x-ray my opinion shows just some mild fluid overload with some bibasilar atelectasis and small effusions. The patient remains on a number of medications including Primacor, norepinephrine, Precedex, and insulin. The patient's mental status in my opinion is still poor. His white count is 13.7 hemoglobin 8.1 hematocrit 25.0 platelet count 138,000. Sodium 149 potassium 3.5 chloride 117 CO2 is 26 BUN and creatinine were 126 and 1.60. His liver enzymes are elevated at 93 and 161 respectively. This was for the AST and ALT. Bilirubin 3.5. Albumin 2.3. Sputum was positive back on November 24 for Klebsiella oxytoca medications are reviewed. Prognosis is guarded. Critical care time 34 minutes Plan dated 12/02/2017 The patient's labs x-rays a medications are all reviewed. The chest x-ray my opinion continues to show a fluid overload. There was small effusions and some bibasilar atelectasis. The patient remains on BiPAP at 12 and 5 and 40%. Norepinephrine has been weaned off. The patient remains on Primacor and Precedex. I like to be able to wean the Precedex off. The patient remains on an insulin drip at 1.5 units an hour. The patient is also getting some basic IV fluids. The patient's overall prognosis remains extremely poor. White count is 12.4, hemoglobin 7.8, hematocrit 24.6 and platelet count 123,000. Sodium 151 potassium 3.5 chloride is 119 CO2 24 anion gap is normal and BUN and creatinine is 118 and 1.60. The rest of the comprehensive metabolic profile is evaluated. Critical care time is 34 minutes. Plan dated 12/03/2017 The patient remains on Primacor, propofol, norepinephrine, insulin, and dextrose IV. The patient is being nourished enterally. The patient patient's vent settings were changed slightly. Rate was increased to 22 and tidal volume was dropped to 450. Arterial blood gases show a relative hypoxemia and a mild respiratory alkalosis. White count of 16.9 hemoglobin 7.9 hematocrit 25.1 and platelet count 144,000. Sodium 152 potassium 4 chloride 121 CO2 23 BUN and creatinine of 111 and 1.71. The rest of the labs are reviewed. Chest x-ray shows diffuse bilateral infiltrates with small effusions. Medications are reviewed. Prognosis is very guarded. Apparently, the patient did not want a tracheostomy or a feeding tube done prior to surgery. Critical care time 32 minutes Plan dated 12/04/2017 The chest x-rays reviewed. White count 13.9 hemoglobin 7.5 hematocrit 22.9 and platelet count 112,000. Sodium 150 potassium 3.6 chloride 120 CO2 26 with a BUN and creatinine of 107 and 1.50. Microbiology is unchanged. Chest x-ray was reviewed. That settings are appropriate. The plan would be to get the patient back to where we think we could extubate him with the idea that once extubated, he would not be reintubated. Apparently the family is adamant against tracheostomy and PEG tube placement. We'll continue to talk to the family. His overall situation is quite complex. His prognosis is guarded. He is getting nurse via the Dobbhoff tube. Critical care time is 33 minutes Time with Patient: Greater than 30
[2017-12-04] MEDS: METOPROLOL TARTRATE 25 MG TAB PO SCH ×2 (09:12→21:54)
[2017-12-04] MEDS: MIDODRINE 5 MG TAB PO SCH ×3 (09:12→16:49)
[2017-12-04] MEDS: SERTRALINE 25 MG TAB PO SCH (09:12)
[2017-12-04] MEDS: ASCORBIC ACID 500 MG TAB PO SCH ×2 (09:12→16:49)
[2017-12-04] MEDS: CLOPIDOGREL 75 MG TAB PO SCH (09:12)
[2017-12-04] MEDS: ASPIRIN 325 MG TAB PO SCH (09:12)
[2017-12-04] MEDS: HEPARIN SODIUM,PORCINE 5,000 UNIT/ML 1 ML VIAL SQ SCH ×2 (09:12→16:00)
[2017-12-04] MEDS: CHLORHEXIDINE GLUCONATE 15 ML CUP MUCOUS MEM SCH ×2 (09:12→21:54)
[2017-12-04] MEDS: PANTOPRAZOLE 40 MG/10 ML VIAL IVP SCH (09:12)
[2017-12-04] MEDS: AMIODARONE 200 MG TAB PO SCH (09:12)
[2017-12-04] MEDS: FERROUS SULFATE ORAL ELIXIR 300 MG/5 ML CUP PO SCH ×2 (09:12→16:49)
[2017-12-04] MEDS: PIPERACILLIN-TAZOBACTAM 3.375 GM in DEXTROSE/WATER 1 50ML.BAG IVPB SCH ×2 (10:30→16:49)
[2017-12-04] MEDS: hydrALAZINE HCL 25 MG TAB PO SCH ×2 (10:30→21:51)
--- NOTE | 2017-12-04 10:31 | P.PN ---
Subjective Progress Note Date: 12/04/17 Principal diagnosis: Triple-vessel coronary artery disease, severe ischemic cardiomyopathy with a preoperative ejection fraction of 25-30%, moderate mitral valve regurgitation, mild tricuspid valve regurgitation, diabetes mellitus type 2, hyperlipidemia, moderate to severe restrictive lung disease with a preoperative FEV1 of 43% of predicted value, preoperative bilateral small to moderate pleural effusions, evidence of diffuse calcific coronary artery disease, and evidence of old inferior posterior, apical myocardial infarction and remote history of tobacco dependence. POD #18 placement of intra-aortic balloon pump. POD #17 quadruple coronary artery bypass grafting using the left internal mammary artery to the left anterior descending coronary artery, a reverse greater saphenous vein graft from the aorta to the diagonal coronary artery, reverse greater saphenous vein graft from the aorta to the first obtuse marginal coronary artery, a reverse greater saphenous vein graft from the aorta to the posterior descending coronary artery. A mitral valve repair using a complete annuloplasty with a 30 mm Kapoor IMR ring, exclusion of the left atrial appendage using a 35 mm Atriclip, intraoperative transesophageal echocardiogram and epi-aortic scanning, and intraoperative graft flow measurements using the mycirQleim system. Postoperative normochromic anemia, and expected outcome of surgery secondary to cardiopulmonary bypass and hemodilution. Postoperative thrombocytopenia, an expected outcome of surgery. Postoperative atrial fibrillation, an expected outcome of surgery. Postoperative elevated transaminases, an unexpected outcome of surgery, likely secondary to low flow state post surgery. Postoperative acute kidney injury, an unexpected outcome of surgery, likely secondary to low flow state post surgery. Postoperative acute metabolic acidosis, lactic acidosis, reintubation, an unexpected outcome. Postoperative cardiogenic shock, an unexpected outcome. Postoperative hypernatremia, an unexpected outcome. Acute hypoxemic respiratory failure requiring a second reintubation, an unexpected outcome. The patient remains intubated with mechanical ventilator support. Sedation remains with propofol at 20 mcg/kg/m. A Dobbhoff tube was successfully placed by Dr. Borjas yesterday and 2 feedings were initiated at 70 mL an hour of vital AF with automatic water flushes. Levothyroid drip is on hold at this time and he is hemodynamically stable. Primacor drip remains at 0.2 mcg/kg/m. WBC count remains trending down yesterday was 16.9 and today is 13.9. Bedside monitor is showing episodes of atrial fibrillation, heart rate currently 115. Remains on Zosyn for positive sputum culture growing Klebsiella oxytoca. Objective - Vital Signs Vital signs: Vital Signs Temp 98.3 F 12/04/17 04:00 Pulse 93 12/04/17 07:37 Resp 26 H 12/04/17 07:00 BP 97/56 12/04/17 07:00 Pulse Ox 97 12/04/17 07:00 Intake & Output 12/03/17 12/04/17 12/04/17 18:59 06:59 18:59 Intake Total 2967.229 1009.408 139.143 Output Total 1275 885 75 Balance 071.927 6823.408 64.143 Weight 83.3 kg 83.4 kg Intake: IV 206 108.6 7.6 Dextrose 5% in Water 1, 120 000 ml @ 40 mls/hr IV . Q24H [facility] Rx#:[id number] Milrinone-D5w Pmx 20 mg 50.6 4.6 In Dextrose/Water 1 100ml .bag @ 0.2 MCG/KG/MIN 4. 66 mls/hr IV .[id number] [facility] Rx#:[id number] Piperacillin-Tazobactam 3 25.0 .375 gm In Dextrose/Water 1 50ml.bag @ 12.5 mls/hr IVPB Q12HR [facility] Rx#: [id number] Piperacillin-Tazobactam 3 50 .375 gm In Dextrose/Water 1 50ml.bag @ 12.5 mls/hr IVPB Q8HR [facility] Rx#: [id number] Pressure Bags 36 33 3 Intake, IV Titration 401.729 149.808 61.543 Amount Calcium Chloride 1,000 mg 100 In Sodium Chloride 0.9% 100 ml @ 100 mls/hr IVPB ONCE [facility] Rx#:[id number] Insulin Regular 100 unit 61.407 31.160 In Sodium Chloride 0.9% 100 ml @ Per Protocol IV .Q0M [facility] Rx#:[id number] Milrinone-D5w Pmx 20 mg 100 In Dextrose/Water 1 100ml .bag @ 0.2 MCG/KG/MIN 4. 66 mls/hr IV .[id number] [facility] Rx#:[id number] Norepinephrine 16 mg In 40.322 Dextrose 5% in Water 250 ml @ Titrate IV .Q0M [facility] Rx#:[id number] Propofol 1,000 mg In 100.000 118.648 61.543 Empty Bag 1 bag @ Titrate IV .Q0M [facility] Rx#: [id number] Oral 180 Tube Feeding 910 1050 70 Other 1500 Output: Urine 1075 750 75 Stool 200 135 Other: Voiding Method Indwelling Catheter Indwelling Catheter # Bowel Movements 1 ABP, PAP, CO, CI - Last Documented Arterial Blood Pressure 104/43 Pulmonary Artery Pressure 40/15 Cardiac Output 5.0 Cardiac Index 2.7 - Constitutional Constitutional Comment(s): Remains intubated with mechanical ventilator support. He is sedated with propofol drip at 20 mcg/kg/m. Not following any verbal commands at this time. General appearance: Present: no acute distress - Respiratory Details: Lung sounds with few scattered rhonchi throughout, diminished to his bilateral bases. Respirations are symmetrical and nonlabored with mechanical ventilator support. Current ventilator settings are as follows: Assist control 22, VC + 450 and 0.85, FiO2 50% and a PEEP of 5. ABG results this morning show a pH of 7.45, pCO2 36, pO2 71, HCO3 25, oxygen saturation 95.4, base excess 1.3. #[address] and secured at 24 cm at the lip. - Cardiovascular Details: Irregular rhythm with tachycardic rate. S1 and S2 present, negative for S3, gallop or murmur. Sternum is stable. Bedside telemetry showing atrial fibrillation heart rate 115. Atrial and ventricular epicardial pacemaker wires in place and grounded. Knee-high MERLYN hose and sequential compression devices in place was bilateral lower extremities. Right radial arterial line in place and functioning. Left brachial PICC line in place and functioning. Primacor drip remains at 0.2 mcg/kg/m. Heart hugger is in place. - Gastrointestinal Gastrointestinal Comment(s): Abdomen is soft, nontender and nondistended. Active bowel sounds all 4 quadrants. Right near Dobbhoff tube in place with vital AF tube feeding infusing at goal rate of 70 mL per hour with automatic water flushes at 500 mL every 4 hours. FMS system in place with liquid brown stool. - Genitourinary Genitourinary Comment(s): Fong catheter for accurate I&O. Draining clear marta urine. 460 mL output in the last 8 hours. - Integumentary Integumentary Comment(s): Skin is warm and dry. No clubbing or cyanosis present. Midline sternal incision clean and dry and approximated. No drainage or redness present. Left leg EVH site clean dry and approximated. No drainage or redness present. Stage II pressure ulcer to his coccyx, Optifoam dressing secured and intact. - Neurologic Neurologic Comment(s): Remain sedated with propofol drip. - Musculoskeletal Musculoskeletal: Present: generalized weakness - Allied health notes Allied health notes reviewed: nursing - Labs CBC & Chem 7: 12/04/17 04:28 12/04/17 04:28 Labs: Abnormal Lab Results - Last 24 Hours (Table) 12/03/17 12/03/17 12/03/17 Range/Units 10:24 12:03 13:22 WBC (3.8-10.6) k/uL RBC (4.30-5.90) m/uL Hgb (13.0-17.5) gm/dL Hct (39.0-53.0) % RDW (11.5-15.5) % Plt Count (150-450) k/uL Neutrophils # (1.3-7.7) k/uL Lymphocytes # (1.0-4.8) k/uL ABG pO2 (83-108) mmHg ABG Total CO2 (19-24) mmol/L Sodium (137-145) mmol/L Chloride (98-107) mmol/L BUN (9-20) mg/dL Creatinine (0.66-1.25) mg/dL Glucose (74-99) mg/dL POC Glucose (mg/dL) 236 H 250 H 216 H (75-99) mg/dL Calcium (8.4-10.2) mg/dL Magnesium (1.6-2.3) mg/dL Total Bilirubin (0.2-1.3) mg/dL AST (17-59) U/L ALT (21-72) U/L Alkaline Phosphatase (38-126) U/L Total Protein (6.3-8.2) g/dL Albumin (3.5-5.0) g/dL 12/03/17 12/03/17 12/03/17 Range/Units 14:00 15:19 16:01 WBC (3.8-10.6) k/uL RBC (4.30-5.90) m/uL Hgb (13.0-17.5) gm/dL Hct (39.0-53.0) % RDW (11.5-15.5) % Plt Count (150-450) k/uL Neutrophils # (1.3-7.7) k/uL Lymphocytes # (1.0-4.8) k/uL ABG pO2 (83-108) mmHg ABG Total CO2 (19-24) mmol/L Sodium (137-145) mmol/L Chloride (98-107) mmol/L BUN (9-20) mg/dL Creatinine (0.66-1.25) mg/dL Glucose (74-99) mg/dL POC Glucose (mg/dL) 208 H 198 H 180 H (75-99) mg/dL Calcium (8.4-10.2) mg/dL Magnesium (1.6-2.3) mg/dL Total Bilirubin (0.2-1.3) mg/dL AST (17-59) U/L ALT (21-72) U/L Alkaline Phosphatase (38-126) U/L Total Protein (6.3-8.2) g/dL Albumin (3.5-5.0) g/dL 12/03/17 12/03/17 12/03/17 Range/Units 17:25 18:03 18:25 WBC (3.8-10.6) k/uL RBC (4.30-5.90) m/uL Hgb (13.0-17.5) gm/dL Hct (39.0-53.0) % RDW (11.5-15.5) % Plt Count (150-450) k/uL Neutrophils # (1.3-7.7) k/uL Lymphocytes # (1.0-4.8) k/uL ABG pO2 (83-108) mmHg ABG Total CO2 (19-24) mmol/L Sodium 151 H (137-145) mmol/L Chloride (98-107) mmol/L BUN (9-20) mg/dL Creatinine (0.66-1.25) mg/dL Glucose (74-99) mg/dL POC Glucose (mg/dL) 185 H 170 H (75-99) mg/dL Calcium (8.4-10.2) mg/dL Magnesium (1.6-2.3) mg/dL Total Bilirubin (0.2-1.3) mg/dL AST (17-59) U/L ALT (21-72) U/L Alkaline Phosphatase (38-126) U/L Total Protein (6.3-8.2) g/dL Albumin (3.5-5.0) g/dL 12/03/17 12/03/17 12/03/17 Range/Units 18:54 20:28 22:15 WBC (3.8-10.6) k/uL RBC (4.30-5.90) m/uL Hgb (13.0-17.5) gm/dL Hct (39.0-53.0) % RDW (11.5-15.5) % Plt Count (150-450) k/uL Neutrophils # (1.3-7.7) k/uL Lymphocytes # (1.0-4.8) k/uL ABG pO2 (83-108) mmHg ABG Total CO2 (19-24) mmol/L Sodium (137-145) mmol/L Chloride (98-107) mmol/L BUN (9-20) mg/dL Creatinine (0.66-1.25) mg/dL Glucose (74-99) mg/dL POC Glucose (mg/dL) 166 H 178 H 166 H (75-99) mg/dL Calcium (8.4-10.2) mg/dL Magnesium (1.6-2.3) mg/dL Total Bilirubin (0.2-1.3) mg/dL AST (17-59) U/L ALT (21-72) U/L Alkaline Phosphatase (38-126) U/L Total Protein (6.3-8.2) g/dL Albumin (3.5-5.0) g/dL 12/03/17 12/04/17 12/04/17 Range/Units 23:32 02:14 04:16 WBC (3.8-10.6) k/uL RBC (4.30-5.90) m/uL Hgb (13.0-17.5) gm/dL Hct (39.0-53.0) % RDW (11.5-15.5) % Plt Count (150-450) k/uL Neutrophils # (1.3-7.7) k/uL Lymphocytes # (1.0-4.8) k/uL ABG pO2 (83-108) mmHg ABG Total CO2 (19-24) mmol/L Sodium (137-145) mmol/L Chloride (98-107) mmol/L BUN (9-20) mg/dL Creatinine (0.66-1.25) mg/dL Glucose (74-99) mg/dL POC Glucose (mg/dL) 152 H 111 H 128 H (75-99) mg/dL Calcium (8.4-10.2) mg/dL Magnesium (1.6-2.3) mg/dL Total Bilirubin (0.2-1.3) mg/dL AST (17-59) U/L ALT (21-72) U/L Alkaline Phosphatase (38-126) U/L Total Protein (6.3-8.2) g/dL Albumin (3.5-5.0) g/dL 12/04/17 12/04/17 12/04/17 Range/Units 04:19 04:28 04:28 WBC 13.9 H (3.8-10.6) k/uL RBC 2.45 L (4.30-5.90) m/uL Hgb 7.5 L (13.0-17.5) gm/dL Hct 22.9 L (39.0-53.0) % RDW 19.4 H (11.5-15.5) % Plt Count 112 L (150-450) k/uL Neutrophils # 12.9 H (1.3-7.7) k/uL Lymphocytes # 0.3 L (1.0-4.8) k/uL ABG pO2 71 L (83-108) mmHg ABG Total CO2 26 H (19-24) mmol/L Sodium 150 H (137-145) mmol/L Chloride 120 H* (98-107) mmol/L BUN 107 H* (9-20) mg/dL Creatinine 1.50 H (0.66-1.25) mg/dL Glucose 122 H (74-99) mg/dL POC Glucose (mg/dL) (75-99) mg/dL Calcium 8.0 L (8.4-10.2) mg/dL Magnesium 2.4 H (1.6-2.3) mg/dL Total Bilirubin 3.0 H (0.2-1.3) mg/dL AST 68 H (17-59) U/L ALT 102 H (21-72) U/L Alkaline Phosphatase 162 H (38-126) U/L Total Protein 4.8 L (6.3-8.2) g/dL Albumin 1.8 L (3.5-5.0) g/dL 12/04/17 12/04/17 Range/Units 05:57 08:31 WBC (3.8-10.6) k/uL RBC (4.30-5.90) m/uL Hgb (13.0-17.5) gm/dL Hct (39.0-53.0) % RDW (11.5-15.5) % Plt Count (150-450) k/uL Neutrophils # (1.3-7.7) k/uL Lymphocytes # (1.0-4.8) k/uL ABG pO2 (83-108) mmHg ABG Total CO2 (19-24) mmol/L Sodium (137-145) mmol/L Chloride (98-107) mmol/L BUN (9-20) mg/dL Creatinine (0.66-1.25) mg/dL Glucose (74-99) mg/dL POC Glucose (mg/dL) 128 H 115 H (75-99) mg/dL Calcium (8.4-10.2) mg/dL Magnesium (1.6-2.3) mg/dL Total Bilirubin (0.2-1.3) mg/dL AST (17-59) U/L ALT (21-72) U/L Alkaline Phosphatase (38-126) U/L Total Protein (6.3-8.2) g/dL Albumin (3.5-5.0) g/dL - Imaging and Cardiology Chest x-ray: report reviewed, image reviewed Assessment and Plan (1) DVT prophylaxis Current Visit: Yes Status: Acute Code(s): KJF9638 - SNOMED Code(s): 795139423 (2) Ischemic cardiomyopathy Current Visit: Yes Status: Acute Code(s): I25.5 - ISCHEMIC CARDIOMYOPATHY SNOMED Code(s): 921522099 (3) Coronary artery disease Current Visit: Yes Status: Chronic Code(s): I25.10 - ATHSCL HEART DISEASE OF [place] CORONARY ARTERY W/O ANG PCTRS SNOMED Code(s): 12697441 (4) Diabetes mellitus Current Visit: Yes Status: Chronic Code(s): E11.9 - TYPE 2 DIABETES MELLITUS WITHOUT COMPLICATIONS SNOMED Code(s): 68785293 (5) Hyperlipidemia Current Visit: Yes Status: Chronic Code(s): E78.5 - HYPERLIPIDEMIA, UNSPECIFIED SNOMED Code(s): 06963398 (6) Mitral regurgitation Current Visit: Yes Status: Chronic Code(s): I34.0 - NONRHEUMATIC MITRAL ( VALVE) INSUFFICIENCY SNOMED Code(s): 01409896 (7) History of myocardial infarction Current Visit: No Status: Resolved Code(s): I25.2 - OLD MYOCARDIAL INFARCTION SNOMED Code(s): 853030013 (8) Tobacco dependence in remission Current Visit: No Status: Resolved Code(s): F17.201 - NICOTINE DEPENDENCE, UNSPECIFIED, IN REMISSION SNOMED Code(s): 283544425 (9) Congestive heart failure with cardiomyopathy and cardiomegaly Current Visit: Yes Status: Acute Code(s): I50.9 - HEART FAILURE, UNSPECIFIED ; I42.9 - CARDIOMYOPATHY, UNSPECIFIED; I51.7 - CARDIOMEGALY SNOMED Code(s): 226032581435075 (10) S/P CABG x 4 Current Visit: Yes Status: Acute Code(s): Z95.1 - PRESENCE OF AORTOCORONARY BYPASS GRAFT SNOMED Code(s): 001210169 (11) S/P mitral valve repair Current Visit: Yes Status: Acute Code(s): Z98.890 - OTHER SPECIFIED POSTPROCEDURAL STATES SNOMED Code(s): 675724621 (12) Gram-negative pneumonia Current Visit: Yes Status: Acute Code(s): J15.6 - PNEUMONIA DUE TO OTHER GRAM-NEGATIVE BACTERIA SNOMED Code(s): 574214029 Plan: 1. Continue low-dose aspirin, Plavix, statin, subcu heparin, beta michelle. 2. Continue amiodarone for A. fib prophylaxis. 3. Continue Primacor at 0.2 mcg/kg/min. 4. Continue to feedings per dietitian's recommendations. Monitor for residuals. Continue automatic water flushes 500 mL every 4 hours. 5. Continue FMS for liquid stools. 6. Wean propofol as tolerated. 7. No nephrotoxic, hepatotoxic agents. 8. Keep Fong catheter for strict accurate intake and output. Fong catheter changed 11/27/17. 9. Ventilator management, bronchodilators per pulmonology. 10. Will monitor daily labs and x-rays. No further blood transfusion at this point. Continue ferrous sulfate. 11. Antibiotic management per pulmonology, sputum culture positive for Klebsiella oxytoca. Blood cultures, urine culture negative. 12. Pain control with current medication regimen. 13. GI/DVT prophylaxis. 14. Insulin drip/diabetic management per primary care service. 15. Dr. Pool consult noted and appreciated. 16. Continue full CODE STATUS. 17. Further recommendations to follow based on patient's clinical course. Time with Patient: Greater than 30
[2017-12-04 10:36] LABS: Glucose,Whole Blood 100 mg/dL (75-99)
[2017-12-04 10:36] LABS: Glucose,Whole Blood 90 mg/dL (75-99)
[2017-12-04 10:36] LABS: Glucose,Whole Blood 84 mg/dL (75-99)
--- NOTE | 2017-12-04 11:44 | P.PN ---
Subjective Progress Note Date: 12/04/17 Principal diagnosis: This is a 72-year-old male followed up for acute kidney injury, post CABG. He was reintubated because of decompensation on 12/02/2017 2 days ago. Currently he is obtunded sedated on the vent at 50%. His creatinine is better at 1.5, urine output is 21 60 mL last 24 hours. Blood pressures in the 100 range on milrinone and Midrin. His hydralazine was on hold but he is on metoprolol because of the atrial fibrillation. He remains in atrial fibrillation currently. Is on 50% FiO2. Objective - Vital Signs Vital signs: Vital Signs Temp 98.1 F 12/04/17 08:00 Pulse 106 H 12/04/17 11:15 Resp 26 H 12/04/17 10:30 BP 112/66 12/04/17 10:30 Pulse Ox 98 12/04/17 10:30 Intake & Output 12/03/17 12/04/17 12/04/17 18:59 06:59 18:59 Intake Total 9871.932 3392.408 940.382 Output Total 1275 885 259 Balance 435.585 8486.408 681.382 Weight 83.3 kg 83.4 kg Intake: IV 206 108.6 16.6 Dextrose 5% in Water 1, 120 000 ml @ 40 mls/hr IV . Q24H [facility] Rx#:[id number] Milrinone-D5w Pmx 20 mg 50.6 4.6 In Dextrose/Water 1 100ml .bag @ 0.2 MCG/KG/MIN 4. 66 mls/hr IV .[id number] [facility] Rx#:[id number] Piperacillin-Tazobactam 3 25.0 .375 gm In Dextrose/Water 1 50ml.bag @ 12.5 mls/hr IVPB Q12HR [facility] Rx#: [id number] Piperacillin-Tazobactam 3 50 .375 gm In Dextrose/Water 1 50ml.bag @ 12.5 mls/hr IVPB Q8HR [facility] Rx#: [id number] Pressure Bags 36 33 12 Intake, IV Titration 401.729 149.808 83.782 Amount Calcium Chloride 1,000 mg 100 In Sodium Chloride 0.9% 100 ml @ 100 mls/hr IVPB ONCE [facility] Rx#:[id number] Insulin Regular 100 unit 61.407 31.160 22.239 In Sodium Chloride 0.9% 100 ml @ Per Protocol IV .Q0M [facility] Rx#:[id number] Milrinone-D5w Pmx 20 mg 100 In Dextrose/Water 1 100ml .bag @ 0.2 MCG/KG/MIN 4. 66 mls/hr IV .[id number] [facility] Rx#:[id number] Norepinephrine 16 mg In 40.322 Dextrose 5% in Water 250 ml @ Titrate IV .Q0M [facility] Rx#:[id number] Propofol 1,000 mg In 100.000 118.648 61.543 Empty Bag 1 bag @ Titrate IV .Q0M [facility] Rx#: [id number] Oral 180 Tube Feeding 910 1050 280 Other 1500 560 Output: Urine 1075 750 259 Stool 200 135 Other: Voiding Method Indwelling Catheter Indwelling Catheter Indwelling Catheter # Bowel Movements 1 ABP, PAP, CO, CI - Last Documented Arterial Blood Pressure 105/49 Pulmonary Artery Pressure 40/15 Cardiac Output 5.0 Cardiac Index 2.7 On examination his obtunded sedated on 50% FiO2. HEENT exam no JVP neck supple no facial asymmetry pupils are equally ask for haziness on both sides. Lungs are significant and occasional coarse crackles. Chest x-ray shows slight worsening with suggestion of congestive heart failure. Heart sounds are unremarkable for any murmur rub gallop he is in atrial fibrillation. Abdomen is soft nondistended Extremity exam was moderate edema. Neurologically obtunded - Labs CBC & Chem 7: 12/04/17 04:28 12/04/17 04:28 Labs: Abnormal Lab Results - Last 24 Hours (Table) 12/03/17 12/03/17 12/03/17 Range/Units 12:03 13:22 14:00 WBC (3.8-10.6) k/uL RBC (4.30-5.90) m/uL Hgb (13.0-17.5) gm/dL Hct (39.0-53.0) % RDW (11.5-15.5) % Plt Count (150-450) k/uL Neutrophils # (1.3-7.7) k/uL Lymphocytes # (1.0-4.8) k/uL ABG pO2 (83-108) mmHg ABG Total CO2 (19-24) mmol/L Sodium (137-145) mmol/L Chloride (98-107) mmol/L BUN (9-20) mg/dL Creatinine (0.66-1.25) mg/dL Glucose (74-99) mg/dL POC Glucose (mg/dL) 250 H 216 H 208 H (75-99) mg/dL Calcium (8.4-10.2) mg/dL Magnesium (1.6-2.3) mg/dL Total Bilirubin (0.2-1.3) mg/dL AST (17-59) U/L ALT (21-72) U/L Alkaline Phosphatase (38-126) U/L Total Protein (6.3-8.2) g/dL Albumin (3.5-5.0) g/dL 12/03/17 12/03/17 12/03/17 Range/Units 15:19 16:01 17:25 WBC (3.8-10.6) k/uL RBC (4.30-5.90) m/uL Hgb (13.0-17.5) gm/dL Hct (39.0-53.0) % RDW (11.5-15.5) % Plt Count (150-450) k/uL Neutrophils # (1.3-7.7) k/uL Lymphocytes # (1.0-4.8) k/uL ABG pO2 (83-108) mmHg ABG Total CO2 (19-24) mmol/L Sodium (137-145) mmol/L Chloride (98-107) mmol/L BUN (9-20) mg/dL Creatinine (0.66-1.25) mg/dL Glucose (74-99) mg/dL POC Glucose (mg/dL) 198 H 180 H 185 H (75-99) mg/dL Calcium (8.4-10.2) mg/dL Magnesium (1.6-2.3) mg/dL Total Bilirubin (0.2-1.3) mg/dL AST (17-59) U/L ALT (21-72) U/L Alkaline Phosphatase (38-126) U/L Total Protein (6.3-8.2) g/dL Albumin (3.5-5.0) g/dL 12/03/17 12/03/17 12/03/17 Range/Units 18:03 18:25 18:54 WBC (3.8-10.6) k/uL RBC (4.30-5.90) m/uL Hgb (13.0-17.5) gm/dL Hct (39.0-53.0) % RDW (11.5-15.5) % Plt Count (150-450) k/uL Neutrophils # (1.3-7.7) k/uL Lymphocytes # (1.0-4.8) k/uL ABG pO2 (83-108) mmHg ABG Total CO2 (19-24) mmol/L Sodium 151 H (137-145) mmol/L Chloride (98-107) mmol/L BUN (9-20) mg/dL Creatinine (0.66-1.25) mg/dL Glucose (74-99) mg/dL POC Glucose (mg/dL) 170 H 166 H (75-99) mg/dL Calcium (8.4-10.2) mg/dL Magnesium (1.6-2.3) mg/dL Total Bilirubin (0.2-1.3) mg/dL AST (17-59) U/L ALT (21-72) U/L Alkaline Phosphatase (38-126) U/L Total Protein (6.3-8.2) g/dL Albumin (3.5-5.0) g/dL 12/03/17 12/03/17 12/03/17 Range/Units 20:28 22:15 23:32 WBC (3.8-10.6) k/uL RBC (4.30-5.90) m/uL Hgb (13.0-17.5) gm/dL Hct (39.0-53.0) % RDW (11.5-15.5) % Plt Count (150-450) k/uL Neutrophils # (1.3-7.7) k/uL Lymphocytes # (1.0-4.8) k/uL ABG pO2 (83-108) mmHg ABG Total CO2 (19-24) mmol/L Sodium (137-145) mmol/L Chloride (98-107) mmol/L BUN (9-20) mg/dL Creatinine (0.66-1.25) mg/dL Glucose (74-99) mg/dL POC Glucose (mg/dL) 178 H 166 H 152 H (75-99) mg/dL Calcium (8.4-10.2) mg/dL Magnesium (1.6-2.3) mg/dL Total Bilirubin (0.2-1.3) mg/dL AST (17-59) U/L ALT (21-72) U/L Alkaline Phosphatase (38-126) U/L Total Protein (6.3-8.2) g/dL Albumin (3.5-5.0) g/dL 12/04/17 12/04/17 12/04/17 Range/Units 02:14 04:16 04:19 WBC (3.8-10.6) k/uL RBC (4.30-5.90) m/uL Hgb (13.0-17.5) gm/dL Hct (39.0-53.0) % RDW (11.5-15.5) % Plt Count (150-450) k/uL Neutrophils # (1.3-7.7) k/uL Lymphocytes # (1.0-4.8) k/uL ABG pO2 71 L (83-108) mmHg ABG Total CO2 26 H (19-24) mmol/L Sodium (137-145) mmol/L Chloride (98-107) mmol/L BUN (9-20) mg/dL Creatinine (0.66-1.25) mg/dL Glucose (74-99) mg/dL POC Glucose (mg/dL) 111 H 128 H (75-99) mg/dL Calcium (8.4-10.2) mg/dL Magnesium (1.6-2.3) mg/dL Total Bilirubin (0.2-1.3) mg/dL AST (17-59) U/L ALT (21-72) U/L Alkaline Phosphatase (38-126) U/L Total Protein (6.3-8.2) g/dL Albumin (3.5-5.0) g/dL 12/04/17 12/04/17 12/04/17 Range/Units 04:28 04:28 05:57 WBC 13.9 H (3.8-10.6) k/uL RBC 2.45 L (4.30-5.90) m/uL Hgb 7.5 L (13.0-17.5) gm/dL Hct 22.9 L (39.0-53.0) % RDW 19.4 H (11.5-15.5) % Plt Count 112 L (150-450) k/uL Neutrophils # 12.9 H (1.3-7.7) k/uL Lymphocytes # 0.3 L (1.0-4.8) k/uL ABG pO2 (83-108) mmHg ABG Total CO2 (19-24) mmol/L Sodium 150 H (137-145) mmol/L Chloride 120 H* (98-107) mmol/L BUN 107 H* (9-20) mg/dL Creatinine 1.50 H (0.66-1.25) mg/dL Glucose 122 H (74-99) mg/dL POC Glucose (mg/dL) 128 H (75-99) mg/dL Calcium 8.0 L (8.4-10.2) mg/dL Magnesium 2.4 H (1.6-2.3) mg/dL Total Bilirubin 3.0 H (0.2-1.3) mg/dL AST 68 H (17-59) U/L ALT 102 H (21-72) U/L Alkaline Phosphatase 162 H (38-126) U/L Total Protein 4.8 L (6.3-8.2) g/dL Albumin 1.8 L (3.5-5.0) g/dL 18 12/04/17 Range/Units 08:31 10:34 WBC (3.8-10.6) k/uL RBC (4.30-5.90) m/uL Hgb (13.0-17.5) gm/dL Hct (39.0-53.0) % RDW (11.5-15.5) % Plt Count (150-450) k/uL Neutrophils # (1.3-7.7) k/uL Lymphocytes # (1.0-4.8) k/uL ABG pO2 (83-108) mmHg ABG Total CO2 (19-24) mmol/L Sodium (137-145) mmol/L Chloride (98-107) mmol/L BUN (9-20) mg/dL Creatinine (0.66-1.25) mg/dL Glucose (74-99) mg/dL POC Glucose (mg/dL) 115 H 100 H (75-99) mg/dL Calcium (8.4-10.2) mg/dL Magnesium (1.6-2.3) mg/dL Total Bilirubin (0.2-1.3) mg/dL AST (17-59) U/L ALT (21-72) U/L Alkaline Phosphatase (38-126) U/L Total Protein (6.3-8.2) g/dL Albumin (3.5-5.0) g/dL Assessment and Plan Assessment: Impression 1. 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 Appetite is somewhat marginal. Creatinine is improved to 1.5 urine output is adequate. 2. Chest x-ray shows some minimal deterioration suggestive of fluid overload. Also has mild to moderate edema, ejection fraction is 30%. Blood gases show pO2 of 71 3. Is post CABG reintubated on the vent 50% FiO2. 4. Blood pressure marginal on milrinone. 5. Hyponatremia secondary to combination of acute kidney injury and failure to excrete free water. On 3 L of free water via NG tube. Sodium improved from 151 mEq 2to 150. 6. Anemia hemoglobin 7.5, slowly worsening. Recommendation 1. Discussed with cardiovascular surgery regarding addition of Lasix 20 mg to gently diurese and see how his creatinine sodium low both of them should improve if we offload the ventricle. 2. Agree with holding the hydralazine. 3. Consider transfusion if hemoglobin continues to go down 4. Consider increasing the FiO2
[2017-12-04] MEDS ORDERED: FUROSEMIDE 10 MG/ML 2 ML VIAL IV ONE (12:00)
[2017-12-04 12:13] LABS: Glucose,Whole Blood 131 mg/dL (75-99)
[2017-12-04] MEDS: NOREPINEPHRINE 16 MG in DEXTROSE 5% IN WATER 250 ML IV SCH ×2 (12:35)
[2017-12-04] MEDS: POTASSIUM CHLORIDE 10 MEQ in WATER FOR INJECTION 1 100ML.BAG IVPB SCH ×2 (12:57→12:58)
[2017-12-04] MEDS: FERROUS SULFATE 325 MG TAB PO SCH (12:57)
[2017-12-04] MEDS: ARTIFICIAL TEARS OINTMENT 3.5 GM TUBE BOTH EYES PRN (14:17)
[2017-12-04 14:32] LABS: Glucose,Whole Blood 147 mg/dL (75-99)
--- NOTE | 2017-12-04 16:16 | P.PN ---
Subjective Progress Note Date: 12/04/17 his is a pleasant gentleman patient of Dr. Spann, newly established to the office to evaluate shortness of breath, dyspnea on exertion, underwent cardiac cath and found to have ischemic cardiomyopathy with severe LV dysfunction, triple-vessel disease prior to bypass surgery, admitted for bypass surgery and valve repair. He has underlying history of diabetes mellitus type 2, hyperlipidemia, Cardiac cath performed 11/09/2017 shows left main coronary up was calcified, circumflex 95% stenosis in the ostial portion, LAD totally occluded just of to the origin of the large diagonal branch, diagonal branch from the percent stenosis, 70% stenosis in the PDA and PLV severe left ventricle systolic dysfunction and mitral regurgitation He is currently in ICU being prepped for CABG and mitral valve repair on 2017 and has intra-aortic balloon pump done through the right femoral artery. 11/17: Patient is having open-heart surgery today. 11/18: Patient is status post quadruple coronary artery bypass grafting using the left internal mammary artery to the left anterior descending coronary artery, a reverse greater saphenous vein graft from the aorta to the diagonal coronary artery, reverse greater saphenous vein graft from the aorta to the first obtuse marginal coronary artery, a reverse greater saphenous vein graft from the aorta to the posterior descending coronary artery and mitral valve repair. Patient remains in the intensive care unit intubated and on mechanical ventilation currently on CPAP for weaning parameters. He continues to have intra-aortic balloon pump in place which is plan to keep for 1 more day. He has a right, left and mediastinal chest tubes in place draining serosanguineous fluid. Urine output is 50-60 mL per hour. He is also on vasopressors. Hemoglobin A1c is 6.7. 8: Patient remains in the intensive care unit. He is currently off oxygen and pulse oxing. He continues to have all [address] Balloon pump was removed. Urine output has been adequate. White count is normal. Hemoglobin 7.3, INR 1.5, creatinine 0.93, blood sugars are running between 104 and 127. He has been afebrile. Heart rate running in the 90s. Blood pressure is stable with current vasopressors. Pulse ox is 9700% on room air. Patient denies having any chest pain. No abdominal pain. No nausea. 84. Patient examined the bedside in the ICU. Currently off oxygen. He is not making enough urine output. Creatinine function has worsened from 0.8-1.2. Hemoglobin 7 this morning status post transfusion 1 unit PRBC. Patient is denies any chest pain, shortness of breath is resting comfortably in the chair. He still continues to have [address] with a AARON drain. Blood sugar between 100-125. 11/21 patient examined bedside in the ICU. Brief episode of atrial fibrillation last night and one dose of IV amiodarone given followed by a maintenance dose Afinitor on 400 mg twice a day. Creatinine increased to 1.8 today. Patient is having minimal urine output with less than 10 mL per hour. Patient may benefit from IV fluids as he has minimal oral intake and has minimal urine output. One bag of 250 mg abdomen given today. Patient received 2 units of PRBCs C yesterday. No bowel movements for the past 3 days. Patient is passing gas. Continue with bowel regimen 11/22: Patient hasn't been noted to have increasing renal numbers with BUN of 66 and creatinine 2.2 and nephrology has been consult did. Patient is also noted to have low urine output and dark urine. He is not eating very much. Patient is more lethargic today. He denies any abdominal pain. Heart rate is controlled in a sinus rhythm. He is currently on oral amiodarone and Lopressor for atrial fibrillation. No anticoagulation due to thrombocytopenia. He is currently off label fed but continued on Primacor. 11/23: Patient has been seen by hematology for thrombocytopenia secondary to shock liver and consumption. Fibrinogen to be checked. Patient be transfused if platelet count is less than 50,000. One dose of vitamin K was given for INR of 1.8 yesterday. INR today is at 2.5, platelet count 41. BUN 89, creatinine 2.30, AST 1470, ALT 721. Urinalysis is turbid, leukoesterase moderate, RBCs greater than 182, wbc's 37, Patient has also been seen by nephrology for acute kidney injury, acute tubular necrosis, oliguria. Recommendations to transfuse if hemoglobin is falls below 7.4 fluid bolus was attempted without improvement and patient was started on Lasix drip. Patient is also continued on Primacor. Urine output has been 35-75 mL per hour. Heart rate has been elevated in the low 100s. Patient has received calcium chloride 1 dose yesterday and repeat today. He was started on Midodrine 10 mg 3 times daily yesterday. He is more lethargic today. He has failed a swallow eval and speech therapy added. Patient has been started on Zoloft for depression but patient appears to be more acute delirium. Patient has been on and off norepinephrine as his blood pressures dropping into the 80 systolic when he sleeps. 11/24: Lasix drip has been discontinued. Patient has received 4 A of bicarbonate is on a bicarb drip. Patient is on levofed and vasopressin along with Primacor. He has received vitamin K and fresh frozen plasma. Urine output is 15-20 mL per hour. Central line was placed today requiring of fresh frozen plasma and vitamin K. There is concern for need of hemodialysis. Patient has diarrhea after having constipation and fecal management system has been placed. His mental status continued to decline yesterday and by this morning he was re -intubated. White count is increasing to 18.5, hemoglobin 7.1, platelet count 48. INR is 2.9, BUN 103, creatinine 3.17, phosphorus 7.5, magnesium 2.7, AST 1301, ALT 623. Total bilirubin is 5.8. Cortisol level was greater than 123. Patient will be resumed back on insulin drip due to hyperglycemia. Echocardiogram reveals EF of 40-45%, mild concentric left ventricular hypertrophy, and only mild gently dilated 34-39, moderate mitral stenosis, mild tricuspid regurgitation, mild pulmonary hypertension 11/25: Patient remains intubated and on mechanical ventilation. We resumed insulin drip yesterday. He remains on Levophed and milrinone. Renal function remains poor. 11/26: Patient remains in the intensive care unit, intubated and on mechanical ventilation. Patient has had good urine output. He remains on vasopressin, norepinephrine, insulin drip. BUN is 114 and creatinine 2.2, phosphorus 4.5, white count 14.6. Hemoglobin is 7. There are no orders for transfusion. INR is 1.7. Liver function tests are improving. Sputum culture showing gram- negative bacilli. 11/27: Patient continued to be intubated does not follow commands. Patient has developed atrial fibrillation and heart rate is currently controlled. Patient continued to require levo fed infusion at 6 mics per Per minute 11/28:Patient continued to be distended does not follow commands. Patient has developed atrial fibrillation and heart rate is currently controlled. Patient was following commands by squeezing his hand this morning but currently is off sedation but still not following commands patient is moving his head to the right than to the left spontaneously and currently still on full vent support 11/29: Patient remains intubated and on mechanical ventilation. He is currently being CPAP. He has been off vasopressors since over the weekend. He is also off midodrine. Patient started on hydralazine. He is more alert and able to squeeze his hands with direction. Left is noted to be stronger than the right. He has continued on Primacor and insulin. We have ordered one dose of Ferrlecit and he is scheduled for transfusion 1 unit of packed RBCs for hemoglobin of 6.9. Liver function tests are improving. BUN is 131 and creatinine 1.6. 11/30: Patient remains in intensive care unit intubated and on mechanical ventilation. He continues to be off vasopressors. He remains on Primacor. Urine output has been between 45 and 150 mL per hour. BUN 131 and creatinine 1.6. White count is down to 12.8, hemoglobin is now 8 after 1 unit of packed RBCs and he received Ferrlecit yesterday. White blood count is recovering now at 136. Liver function tests are all improving as well. Overall, patient is showing slow gradual improvement. Another dose of Ferrlecit has been ordered by nephrology. 12/01: Patient has been successfully extubated yesterday and now on BiPAP. Patient is currently on Precedex. He was placed on low-dose label fed and is currently being weaned. Central line and chest tube on the right to be removed today. White count is 13.7, hemoglobin 8.1, BUN 126 and creatinine 1.6. Capillary blood glucose running between 132 and 152. Her function tests continue to improve. 12/02: Patient remains in the intensive care unit. A Dobbhoff was attempted yesterday but was unsuccessful and to be retry today. Capillary blood glucose running between 149 and 164. White count is down to 12.4, hemoglobin is at 7.8. Renal function shows a BUN of 118 and creatinine 1.6. Liver function tests continue to improve slowly but are not back to normal range. 12/03: Patient remains in intensive care unit. Attempted Dobbhoff tube was attempted by STEVEN yesterday but second attempt was also unsuccessful and patient required reintubation for acute respiratory failure. Patient is on Primacor and propofol, low dose norepinephrine. Asians does not wish for tracheostomy and PEG tube as those were the patient's wishes. Patient has had diarrhea starting a urine specimen to be sent for C. difficile toxin. 12/04: Patient remains in intensive care unit, he continues to be on the ventilator with an before meals mode FiO2 50% appears extremely weak, he was seen along with the cardiothoracic surgery service, we will continue to monitor the patient very closely prognosis very guarded. Objective - Vital Signs Vital signs: Vital Signs Temp 98.3 F 12/04/17 04:00 Pulse 93 12/04/17 07:37 Resp 26 H 12/04/17 07:00 BP 97/56 12/04/17 07:00 Pulse Ox 97 12/04/17 07:00 Intake & Output 12/03/17 12/04/17 12/04/17 18:59 06:59 18:59 Intake Total 2362.219 4262.408 127.976 Output Total 1275 885 75 Balance 248.947 1013.408 52.976 Weight 83.3 kg 83.4 kg Intake: IV 206 108.6 7.6 Dextrose 5% in Water 1, 120 000 ml @ 40 mls/hr IV . Q24H JANNA Rx#:[id number] Milrinone-D5w Pmx 20 mg 50.6 4.6 In Dextrose/Water 1 100ml .bag @ 0.2 MCG/KG/MIN 4. 66 mls/hr IV .[id number] JANNA Rx#:[id number] Piperacillin-Tazobactam 3 25.0 .375 gm In Dextrose/Water 1 50ml.bag @ 12.5 mls/hr IVPB Q12HR JANNA Rx#: [id number] Piperacillin-Tazobactam 3 50 .375 gm In Dextrose/Water 1 50ml.bag @ 12.5 mls/hr IVPB Q8HR JANNA Rx#: [id number] Pressure Bags 36 33 3 Intake, IV Titration 401.729 149.808 50.376 Amount Calcium Chloride 1,000 mg 100 In Sodium Chloride 0.9% 100 ml @ 100 mls/hr IVPB ONCE [facility] Rx#:[id number] Insulin Regular 100 unit 61.407 31.160 In Sodium Chloride 0.9% 100 ml @ Per Protocol IV .Q0M JANNA Rx#:[id number] Milrinone-D5w Pmx 20 mg 100 In Dextrose/Water 1 100ml .bag @ 0.2 MCG/KG/MIN 4. 66 mls/hr IV .[id number] JANNA Rx#:[id number] Norepinephrine 16 mg In 40.322 Dextrose 5% in Water 250 ml @ Titrate IV .Q0M JANNA Rx#:[id number] Propofol 1,000 mg In 100.000 118.648 50.376 Empty Bag 1 bag @ Titrate IV .Q0M JANNA Rx#: [id number] Oral 180 Tube Feeding 910 1050 70 Other 1500 Output: Urine 1075 750 75 Stool 200 135 Other: Voiding Method Indwelling Catheter Indwelling Catheter # Bowel Movements 1 ABP, PAP, CO, CI - Last Documented Arterial Blood Pressure 104/43 Pulmonary Artery Pressure 40/15 Cardiac Output 5.0 Cardiac Index 2.7 - Exam - Exam General appearance: average body habitus, cooperative, no acute distress - EENT Eyes: anicteric sclerae, EOMI, PERRLA, dentition normal, normal appearance no vision in the left eye blurring of the cornea ENT: NA/AT, normal oropharynx, intubated and on mechanical ventilation - Respiratory Respiratory: bilateral: Scattered rhonchi, negative: diminished, dullness, rales , wheezing, - Cardiovascular Rhythm: Regularly irregular Heart sounds: normal: S1, S2 Abnormal Heart Sounds: no systolic murmur, no diastolic murmur, no rub, no S3 Gallop, no S4 Gallop, no click, no other - Gastrointestinal General gastrointestinal: normal bowel sounds, soft, Fong draining clear dark urine - Integumentary Integumentary: normal, normal turgor - Neurologic Neurologic: Patient sedated - Musculoskeletal Musculoskeletal: gait not assessed, patient sedated - Labs CBC & Chem 7: 12/04/17 04:28 12/04/17 12:10 Labs: Abnormal Lab Results - Last 24 Hours (Table) 12/03/17 12/03/17 12/03/17 Range/Units 10:24 12:03 13:22 WBC (3.8-10.6) k/uL RBC (4.30-5.90) m/uL Hgb (13.0-17.5) gm/dL Hct (39.0-53.0) % RDW (11.5-15.5) % Plt Count (150-450) k/uL Neutrophils # (1.3-7.7) k/uL Lymphocytes # (1.0-4.8) k/uL ABG pO2 (83-108) mmHg ABG Total CO2 (19-24) mmol/L Sodium (137-145) mmol/L Chloride (98-107) mmol/L BUN (9-20) mg/dL Creatinine (0.66-1.25) mg/dL Glucose (74-99) mg/dL POC Glucose (mg/dL) 236 H 250 H 216 H (75-99) mg/dL Calcium (8.4-10.2) mg/dL Magnesium (1.6-2.3) mg/dL Total Bilirubin (0.2-1.3) mg/dL AST (17-59) U/L ALT (21-72) U/L Alkaline Phosphatase (38-126) U/L Total Protein (6.3-8.2) g/dL Albumin (3.5-5.0) g/dL 12/03/17 12/03/17 12/03/17 Range/Units 14:00 15:19 16:01 WBC (3.8-10.6) k/uL RBC (4.30-5.90) m/uL Hgb (13.0-17.5) gm/dL Hct (39.0-53.0) % RDW (11.5-15.5) % Plt Count (150-450) k/uL Neutrophils # (1.3-7.7) k/uL Lymphocytes # (1.0-4.8) k/uL ABG pO2 (83-108) mmHg ABG Total CO2 (19-24) mmol/L Sodium (137-145) mmol/L Chloride (98-107) mmol/L BUN (9-20) mg/dL Creatinine (0.66-1.25) mg/dL Glucose (74-99) mg/dL POC Glucose (mg/dL) 208 H 198 H 180 H (75-99) mg/dL Calcium (8.4-10.2) mg/dL Magnesium (1.6-2.3) mg/dL Total Bilirubin (0.2-1.3) mg/dL AST (17-59) U/L ALT (21-72) U/L Alkaline Phosphatase (38-126) U/L Total Protein (6.3-8.2) g/dL Albumin (3.5-5.0) g/dL 12/03/17 12/03/17 12/03/17 Range/Units 17:25 18:03 18:25 WBC (3.8-10.6) k/uL RBC (4.30-5.90) m/uL Hgb (13.0-17.5) gm/dL Hct (39.0-53.0) % RDW (11.5-15.5) % Plt Count (150-450) k/uL Neutrophils # (1.3-7.7) k/uL Lymphocytes # (1.0-4.8) k/uL ABG pO2 (83-108) mmHg ABG Total CO2 (19-24) mmol/L Sodium 151 H (137-145) mmol/L Chloride (98-107) mmol/L BUN (9-20) mg/dL Creatinine (0.66-1.25) mg/dL Glucose (74-99) mg/dL POC Glucose (mg/dL) 185 H 170 H (75-99) mg/dL Calcium (8.4-10.2) mg/dL Magnesium (1.6-2.3) mg/dL Total Bilirubin (0.2-1.3) mg/dL AST (17-59) U/L ALT (21-72) U/L Alkaline Phosphatase (38-126) U/L Total Protein (6.3-8.2) g/dL Albumin (3.5-5.0) g/dL 12/03/17 12/03/17 12/03/17 Range/Units 18:54 20:28 22:15 WBC (3.8-10.6) k/uL RBC (4.30-5.90) m/uL Hgb (13.0-17.5) gm/dL Hct (39.0-53.0) % RDW (11.5-15.5) % Plt Count (150-450) k/uL Neutrophils # (1.3-7.7) k/uL Lymphocytes # (1.0-4.8) k/uL ABG pO2 (83-108) mmHg ABG Total CO2 (19-24) mmol/L Sodium (137-145) mmol/L Chloride (98-107) mmol/L BUN (9-20) mg/dL Creatinine (0.66-1.25) mg/dL Glucose (74-99) mg/dL POC Glucose (mg/dL) 166 H 178 H 166 H (75-99) mg/dL Calcium (8.4-10.2) mg/dL Magnesium (1.6-2.3) mg/dL Total Bilirubin (0.2-1.3) mg/dL AST (17-59) U/L ALT (21-72) U/L Alkaline Phosphatase (38-126) U/L Total Protein (6.3-8.2) g/dL Albumin (3.5-5.0) g/dL 12/03/17 12/04/17 12/04/17 Range/Units 23:32 02:14 04:16 WBC (3.8-10.6) k/uL RBC (4.30-5.90) m/uL Hgb (13.0-17.5) gm/dL Hct (39.0-53.0) % RDW (11.5-15.5) % Plt Count (150-450) k/uL Neutrophils # (1.3-7.7) k/uL Lymphocytes # (1.0-4.8) k/uL ABG pO2 (83-108) mmHg ABG Total CO2 (19-24) mmol/L Sodium (137-145) mmol/L Chloride (98-107) mmol/L BUN (9-20) mg/dL Creatinine (0.66-1.25) mg/dL Glucose (74-99) mg/dL POC Glucose (mg/dL) 152 H 111 H 128 H (75-99) mg/dL Calcium (8.4-10.2) mg/dL Magnesium (1.6-2.3) mg/dL Total Bilirubin (0.2-1.3) mg/dL AST (17-59) U/L ALT (21-72) U/L Alkaline Phosphatase (38-126) U/L Total Protein (6.3-8.2) g/dL Albumin (3.5-5.0) g/dL 12/04/17 12/04/17 12/04/17 Range/Units 04:19 04:28 04:28 WBC 13.9 H (3.8-10.6) k/uL RBC 2.45 L (4.30-5.90) m/uL Hgb 7.5 L (13.0-17.5) gm/dL Hct 22.9 L (39.0-53.0) % RDW 19.4 H (11.5-15.5) % Plt Count 112 L (150-450) k/uL Neutrophils # 12.9 H (1.3-7.7) k/uL Lymphocytes # 0.3 L (1.0-4.8) k/uL ABG pO2 71 L (83-108) mmHg ABG Total CO2 26 H (19-24) mmol/L Sodium 150 H (137-145) mmol/L Chloride 120 H* (98-107) mmol/L BUN 107 H* (9-20) mg/dL Creatinine 1.50 H (0.66-1.25) mg/dL Glucose 122 H (74-99) mg/dL POC Glucose (mg/dL) (75-99) mg/dL Calcium 8.0 L (8.4-10.2) mg/dL Magnesium 2.4 H (1.6-2.3) mg/dL Total Bilirubin 3.0 H (0.2-1.3) mg/dL AST 68 H (17-59) U/L ALT 102 H (21-72) U/L Alkaline Phosphatase 162 H (38-126) U/L Total Protein 4.8 L (6.3-8.2) g/dL Albumin 1.8 L (3.5-5.0) g/dL 12/04/17 Range/Units 05:57 WBC (3.8-10.6) k/uL RBC (4.30-5.90) m/uL Hgb (13.0-17.5) gm/dL Hct (39.0-53.0) % RDW (11.5-15.5) % Plt Count (150-450) k/uL Neutrophils # (1.3-7.7) k/uL Lymphocytes # (1.0-4.8) k/uL ABG pO2 (83-108) mmHg ABG Total CO2 (19-24) mmol/L Sodium (137-145) mmol/L Chloride (98-107) mmol/L BUN (9-20) mg/dL Creatinine (0.66-1.25) mg/dL Glucose (74-99) mg/dL POC Glucose (mg/dL) 128 H (75-99) mg/dL Calcium (8.4-10.2) mg/dL Magnesium (1.6-2.3) mg/dL Total Bilirubin (0.2-1.3) mg/dL AST (17-59) U/L ALT (21-72) U/L Alkaline Phosphatase (38-126) U/L Total Protein (6.3-8.2) g/dL Albumin (3.5-5.0) g/dL Assessment and Plan Assessment: Assessment and Plan Plan: (1) Coronary artery disease and moderate mitral valve regurgitation Triple vessel disease noted on cardiac cath agent status post CABG and mitral valve repair on all 11/17/2017. Continue on aspirin, metoprolol. ICU training associate Dr. Paul/Delonte on consult. Continue current management per cardio vascular surgery team (2) Ischemic cardiomyopathy Has impaired ejection fraction of 38%, along with congestive heart failure. (3) Congestive heart failure with cardiomyopathy Acute on chronic systolic and diastolic heart failure (4) Hyperlipidemia Patient currently not on statins (5) GI prophylaxis (6) DVT prophylaxis (7) Steal syndrome, subclavian Carotid Dopplers 11/10/2017 shows no carotid stenosis however there is to and fro flow within the right vertebral artery could reflect manifestation of subclavian steal physiology prior to with continuous flow reversal. Currently asymptomatic continue to monitor (8) Pulmonary hypertension PILAR on 11/10/2017, moderate pulmonary hypertension also shows intact atrial septum with no evidence of [id number] shunt physiology, unable to locate pressures for right ventricular systolic 9. Thrombocytopenia secondary to consumption. Numbers improved and patient has been resumed back on aspirin, Plavix. Consult with oncology appreciated. Recommendations for platelet transfusion if less than 50,000. 10. Anemia, secondary to a combination of acute blood loss and renal failure with drop in hemoglobin from 10-6.5. Patient is status post multiple blood products. Ferrlecit infusion. 11. Acute kidney injury, acute tubular necrosis, oliguric secondary to hypotension, hypoperfusion. Consult with nephrology appreciated. Off Lasix drip. Status post IV sodium bicarb. 12. Post op atrial fibrillation, expected outcome of surgery. Patient has been on amiodarone and Lopressor. 13. Liver transaminitis and coagulopathy secondary to shock liver oncology consult appreciated. Continue to monitor closely. 14. Depression, situational. Zoloft was subsequently discontinued. 15. Acute delirium secondary to acute illness. 16. Hyperglycemia without diabetes. Patient resumed on insulin drip. Hemoglobin A1c is 6.7. 17. Cardiorenal syndrome and cardiogenic shock requiring IV vasopressors. 18. Diarrhea with possible acute GI bleed with acute blood loss anemia. Fecal management system was required. Stool for occult blood is positive. C diff toxin is negative on first specimen. C. difficile toxin to be rechecked. Patient may need fecal management system replaced. 19. Acute hypoxic respiratory failure requiring reintubation and mechanical ventilation subsequently extubated. Prognosis guarded.
[2017-12-04 16:41] LABS: Glucose,Whole Blood 140 mg/dL (75-99)
[2017-12-04] MEDS: MILRINONE-D5W PMX 20 MG in DEXTROSE/WATER 1 100ML.BAG IV SCH ×2 (18:11→20:24)
[2017-12-04 18:16] LABS: Glucose,Whole Blood 133 mg/dL (75-99)
[2017-12-04 21:00] LABS: Glucose,Whole Blood 124 mg/dL (75-99)
[2017-12-04 21:48] LABS: Glucose,Whole Blood 140 mg/dL (75-99)
[2017-12-04] MEDS: prednisoLONE ACETATE 1% OPHTH DROPS 5 ML BTL LEFT EYE SCH (21:53)
[2017-12-04] MEDS: ATORVASTATIN 40 MG TAB PO SCH (21:54)
[2017-12-04] MEDS: ERYTHROMYCIN 5 MG/GM OPHTH OINT 3.5 GM TUBE LEFT EYE SCH (21:54)
[2017-12-05] MEDS: PIPERACILLIN-TAZOBACTAM 3.375 GM in DEXTROSE/WATER 1 50ML.BAG IVPB SCH ×4 (00:17→23:33)
[2017-12-05] MEDS: HEPARIN SODIUM,PORCINE 5,000 UNIT/ML 1 ML VIAL SQ SCH ×4 (00:17→23:34)
[2017-12-05 00:21] LABS: Glucose,Whole Blood 113 mg/dL (75-99)
[2017-12-05 01:32] LABS: Glucose,Whole Blood 149 mg/dL (75-99)
[2017-12-05] MEDS: INSULIN REGULAR 100 UNIT in SODIUM CHLORIDE 0.9% 100 ML IV SCH (03:05)
[2017-12-05 03:06] LABS: Glucose,Whole Blood 159 mg/dL (75-99)
[2017-12-05] MEDS: IPRATROPIUM-ALBUTEROL 3 ML NEB INHALATION SCH ×5 (03:15→19:57)
[2017-12-05] MEDS: PROPOFOL 1,000 MG in EMPTY BAG 1 BAG IV SCH ×3 (03:27→23:35)
[2017-12-05 04:23] LABS: ABG Base Excess 1.8 mmol/L; ABG HCO3 25 mmol/L (21-25); ABG Oxygen Saturation 96.9 % (94-97); ABG PCO2 34 mmHg (35-45); ABG PH 7.48 (7.35-7.45); ABG PO2 76 mmHg (83-108); ABG TCO2 26 mmol/L (19-24)
[2017-12-05 04:40] LABS: Anisocytosis Slight; Basophils % (A) 0 %; Eosinophils # (A) 0.2 k/uL (0-0.7); Eosinophils % (A) 2 %; HCT 21.8 % (39.0-53.0); Hypochromasia Moderate; Lymphocytes # (A) 0.3 k/uL (1.0-4.8); Lymphocytes % (A) 3 %; MCH 29.4 pg (25.0-35.0); MCV 91.7 fL (80.0-100.0); Mean Platelet Volume 12.5; Monocytes # (A) 0.3 k/uL (0-1.0); Monocytes % (A) 3 %; Neutrophils # (A) 10.4 k/uL (1.3-7.7); Neutrophils % (A) 91 %; Platelet Count 101 k/uL (150-450); Poikilocytosis Slight; RBC 2.37 m/uL (4.30-5.90); RDW 18.7 % (11.5-15.5); WBC 11.5 k/uL (3.8-10.6)
[2017-12-05 04:47] LABS: Ionized Calcium 4.8 mg/dL (4.5-5.3)
[2017-12-05 05:05] LABS: Albumin 1.7 g/dL (3.5-5.0); Calcium 7.4 mg/dL (8.4-10.2); Magnesium 2.3 mg/dL (1.6-2.3); Phosphorus 3.4 mg/dL (2.5-4.5); Potassium 3.8 mmol/L (3.5-5.1); Total Bilirubin 2.6 mg/dL (0.2-1.3); Total Protein 4.8 g/dL (6.3-8.2)
[2017-12-05 05:24] LABS: Large Platelets Present; Target Cells Present
[2017-12-05 05:25] LABS: Ovalocytes Present; RBC Fragments Present
[2017-12-05 05:49] LABS: Glucose,Whole Blood 174 mg/dL (75-99)
[2017-12-05] MEDS ORDERED: POTASSIUM BICARBONATE/CIT AC 20 MEQ TABLET.EFF NG-TUBE SCH (07:00)
--- NOTE | 2017-12-05 07:05 | XR ---
EXAMINATION TYPE: XR chest 1V portable DATE OF EXAM: 12/05/2017 HISTORY: post cardiac surgery, post intubation. REFERENCE: Previous study of 12/04/2017. FINDINGS: There has been a midline sternotomy. The patient is ET tube is in satisfactory position. A Dobbhoff tube has been placed. Its tip is in the stomach. There is a left basilic PICC line in place. Its tip is in the superior vena cava. The heart is enlarged. There is a worsening right-sided effusion. There is improved aeration at the l eft lung base. There continues to be a left-sided effusion. IMPRESSION: 1. CARDIOMEGALY. 2. IMPROVED LEFT BASILAR AIRSPACE DISEASE. 3. BILATERAL EFFUSIONS.
[2017-12-05] MEDS: FERROUS SULFATE ORAL ELIXIR 300 MG/5 ML CUP PO SCH ×2 (08:26→17:57)
[2017-12-05] MEDS: MIDODRINE 5 MG TAB PO SCH ×3 (08:26→17:57)
[2017-12-05] MEDS: ASCORBIC ACID 500 MG TAB PO SCH ×2 (08:26→17:57)
[2017-12-05] MEDS: CHLORHEXIDINE GLUCONATE 15 ML CUP MUCOUS MEM SCH ×2 (08:27→20:04)
[2017-12-05] MEDS: PANTOPRAZOLE 40 MG/10 ML VIAL IVP SCH (08:27)
[2017-12-05] MEDS: SERTRALINE 25 MG TAB PO SCH (08:27)
[2017-12-05] MEDS: METOPROLOL TARTRATE 25 MG TAB PO SCH ×2 (08:27→20:05)
[2017-12-05] MEDS: D5W WITH KCL 20 MEQ/L 1,000 ML IV SCH ×2 (08:27→23:34)
[2017-12-05] MEDS: ASPIRIN 325 MG TAB PO SCH (08:27)
[2017-12-05] MEDS: hydrALAZINE HCL 25 MG TAB PO SCH ×2 (08:27→20:05)
[2017-12-05] MEDS: AMIODARONE 200 MG TAB PO SCH (08:27)
[2017-12-05] MEDS: CLOPIDOGREL 75 MG TAB PO SCH (08:27)
[2017-12-05] MEDS: LACTOBACILLUS ACIDOPH & BULGAR 1 EACH PACKET PO SCH ×4 (08:40→23:34)
--- NOTE | 2017-12-05 08:58 | P.PN ---
Subjective Principal diagnosis: This is a 72-year-old male followed up for acute kidney injury, post CABG. He was reintubated because of decompensation on 12/02/2017. Currently he is obtunded sedated on the vent at 50%. Yesterday I gave him 20 of Lasix with minimal change in his urine output. Overnight he was started on levo fed and continues on milrinone and Midrin. His hydralazine was admitted on hold because of low blood pressure is on metoprolol for his atrial fibrillation. He remains on 50% FiO2 since yesterday. Yesterday his chest x-ray showed some suggestion of pulmonary edema. Lasix was given 20 mg yesterday. This morning's blood pressure remains in the 100 range. His chest x-ray shows some improvement possibly. He remains sedated and obtunded. Objective - Vital Signs Vital signs: Vital Signs Temp 96.8 F L 12/05/17 04:00 Pulse 124 H 12/05/17 07:42 Resp 26 H 12/05/17 07:00 BP 91/60 12/05/17 07:00 Pulse Ox 97 12/05/17 07:00 Intake & Output 12/04/17 12/05/17 12/05/17 18:59 06:59 18:59 Intake Total 2841.806 2966.330 82.6 Output Total 884 830 100 Balance 6214.302 2611.330 -17.4 Intake: IV 90.6 186.6 12.6 Milrinone-D5w Pmx 20 mg 4.6 50.6 4.6 In Dextrose/Water 1 100ml .bag @ 0.2 MCG/KG/MIN 4. 66 mls/hr IV .[id number] JANNA Rx#:[id number] NS 25 5 Piperacillin-Tazobactam 3 50 75.0 .375 gm In Dextrose/Water 1 50ml.bag @ 12.5 mls/hr IVPB Q8HR JANNA Rx#: [id number] Pressure Bags 36 36 3 Intake, IV Titration 291.206 169.730 Amount Insulin Regular 100 unit 22.239 45.220 In Sodium Chloride 0.9% 100 ml @ Per Protocol IV .Q0M JANNA Rx#:[id number] Milrinone-D5w Pmx 20 mg 100 10.33 In Dextrose/Water 1 100ml .bag @ 0.2 MCG/KG/MIN 4. 66 mls/hr IV .[id number] JANNA Rx#:[id number] Norepinephrine 16 mg In 20.757 14.180 Dextrose 5% in Water 250 ml @ Titrate IV .Q0M JANNA Rx#:[id number] Propofol 1,000 mg In 148.210 100 Empty Bag 1 bag @ Titrate IV .Q0M JANNA Rx#: [id number] Tube Feeding 840 1050 70 Other 1620 1560 Output: Urine 884 830 100 Other: Voiding Method Indwelling Catheter Indwelling Catheter ABP, PAP, CO, CI - Last Documented Arterial Blood Pressure 118/46 Pulmonary Artery Pressure 40/15 Cardiac Output 5.0 Cardiac Index 2.7 On examination his obtunded. On 50% FiO2 no change. HEENT exam no JVP is noted He has corneal opacification. Lungs are clear to auscultation fair air entry bilaterally Heart sounds are unremarkable no murmur rub gallop. On the monitor is showing normal sinus rhythm, but he does flip between atrial fibrillation and normal sinus rhythm Abdomen soft nondistended Extremity exam was mild to moderate edema. Neurologically obtunded. - Labs CBC & Chem 7: 12/05/17 04:25 12/05/17 04:25 Labs: Abnormal Lab Results - Last 24 Hours (Table) 12/04/17 12/04/17 12/04/17 Range/Units 10:34 12:11 14:29 WBC (3.8-10.6) k/uL RBC (4.30-5.90) m/uL Hgb (13.0-17.5) gm/dL Hct (39.0-53.0) % RDW (11.5-15.5) % Plt Count (150-450) k/uL Neutrophils # (1.3-7.7) k/uL Lymphocytes # (1.0-4.8) k/uL ABG pH (7.35-7.45) ABG pCO2 (35-45) mmHg ABG pO2 (83-108) mmHg ABG Total CO2 (19-24) mmol/L Sodium (137-145) mmol/L Chloride (98-107) mmol/L BUN (9-20) mg/dL Creatinine (0.66-1.25) mg/dL Glucose (74-99) mg/dL POC Glucose (mg/dL) 100 H 131 H 147 H (75-99) mg/dL Calcium (8.4-10.2) mg/dL Total Bilirubin (0.2-1.3) mg/dL AST (17-59) U/L ALT (21-72) U/L Alkaline Phosphatase (38-126) U/L Total Protein (6.3-8.2) g/dL Albumin (3.5-5.0) g/dL 12/04/17 12/04/17 12/04/17 Range/Units 16:39 18:15 20:58 WBC (3.8-10.6) k/uL RBC (4.30-5.90) m/uL Hgb (13.0-17.5) gm/dL Hct (39.0-53.0) % RDW (11.5-15.5) % Plt Count (150-450) k/uL Neutrophils # (1.3-7.7) k/uL Lymphocytes # (1.0-4.8) k/uL ABG pH (7.35-7.45) ABG pCO2 (35-45) mmHg ABG pO2 (83-108) mmHg ABG Total CO2 (19-24) mmol/L Sodium (137-145) mmol/L Chloride (98-107) mmol/L BUN (9-20) mg/dL Creatinine (0.66-1.25) mg/dL Glucose (74-99) mg/dL POC Glucose (mg/dL) 140 H 133 H 124 H (75-99) mg/dL Calcium (8.4-10.2) mg/dL Total Bilirubin (0.2-1.3) mg/dL AST (17-59) U/L ALT (21-72) U/L Alkaline Phosphatase (38-126) U/L Total Protein (6.3-8.2) g/dL Albumin (3.5-5.0) g/dL 12/04/17 12/05/17 12/05/17 Range/Units 21:47 00:20 01:30 WBC (3.8-10.6) k/uL RBC (4.30-5.90) m/uL Hgb (13.0-17.5) gm/dL Hct (39.0-53.0) % RDW (11.5-15.5) % Plt Count (150-450) k/uL Neutrophils # (1.3-7.7) k/uL Lymphocytes # (1.0-4.8) k/uL ABG pH (7.35-7.45) ABG pCO2 (35-45) mmHg ABG pO2 (83-108) mmHg ABG Total CO2 (19-24) mmol/L Sodium (137-145) mmol/L Chloride (98-107) mmol/L BUN (9-20) mg/dL Creatinine (0.66-1.25) mg/dL Glucose (74-99) mg/dL POC Glucose (mg/dL) 140 H 113 H 149 H (75-99) mg/dL Calcium (8.4-10.2) mg/dL Total Bilirubin (0.2-1.3) mg/dL AST (17-59) U/L ALT (21-72) U/L Alkaline Phosphatase (38-126) U/L Total Protein (6.3-8.2) g/dL Albumin (3.5-5.0) g/dL 12/05/17 12/05/17 12/05/17 Range/Units 03:04 04:21 04:25 WBC (3.8-10.6) k/uL RBC (4.30-5.90) m/uL Hgb (13.0-17.5) gm/dL Hct (39.0-53.0) % RDW (11.5-15.5) % Plt Count (150-450) k/uL Neutrophils # (1.3-7.7) k/uL Lymphocytes # (1.0-4.8) k/uL ABG pH 7.48 H (7.35-7.45) ABG pCO2 34 L (35-45) mmHg ABG pO2 76 L (83-108) mmHg ABG Total CO2 26 H (19-24) mmol/L Sodium 147 H (137-145) mmol/L Chloride 117 H (98-107) mmol/L BUN 108 H* (9-20) mg/dL Creatinine 1.50 H (0.66-1.25) mg/dL Glucose 147 H (74-99) mg/dL POC Glucose (mg/dL) 159 H (75-99) mg/dL Calcium 7.4 L (8.4-10.2) mg/dL Total Bilirubin 2.6 H (0.2-1.3) mg/dL AST 111 H (17-59) U/L ALT 104 H (21-72) U/L Alkaline Phosphatase 197 H (38-126) U/L Total Protein 4.8 L (6.3-8.2) g/dL Albumin 1.7 L (3.5-5.0) g/dL 12/05/17 12/05/17 Range/Units 04:25 05:47 WBC 11.5 H (3.8-10.6) k/uL RBC 2.37 L (4.30-5.90) m/uL Hgb 7.0 L* (13.0-17.5) gm/dL Hct 21.8 L (39.0-53.0) % RDW 18.7 H (11.5-15.5) % Plt Count 101 L (150-450) k/uL Neutrophils # 10.4 H (1.3-7.7) k/uL Lymphocytes # 0.3 L (1.0-4.8) k/uL ABG pH (7.35-7.45) ABG pCO2 (35-45) mmHg ABG pO2 (83-108) mmHg ABG Total CO2 (19-24) mmol/L Sodium (137-145) mmol/L Chloride (98-107) mmol/L BUN (9-20) mg/dL Creatinine (0.66-1.25) mg/dL Glucose (74-99) mg/dL POC Glucose (mg/dL) 174 H (75-99) mg/dL Calcium (8.4-10.2) mg/dL Total Bilirubin (0.2-1.3) mg/dL AST (17-59) U/L ALT (21-72) U/L Alkaline Phosphatase (38-126) U/L Total Protein (6.3-8.2) g/dL Albumin (3.5-5.0) g/dL Assessment and Plan Assessment: Impression 1. 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 creatinine improved to 1.5 but stable for the same range since yesterday peak creatinine was 3.1 dated 11/24/2017 2. Chest x-ray shows possible improvement in the pulmonary edema as minimal effusion which is somewhat worse on the left side. Remains on 50% FiO2 on the vent with a pO2 of 76 on blood gases. 3. Is post CABG reintubated on the vent 50% FiO2. 4. Blood pressure marginal on milrinone, and on levo fed since yesterday 2079. 5. Hypernatremia secondary to combination of acute kidney injury and failure to excrete free water. On 3 L of free water via NG tube. Sodium improved from 151 mEq 2to 150, further to 147 this morning. 6. Anemia hemoglobin 7.5 and down to 7, slowly worsening. 7. Blood gases show mild degree of metabolic alkalosis secondary to respiratory alkalosis on the vent. Recommendation 1. Maintain current medication including levo fed, and milrinone. Maintain midodrine. 2. Agree with holding the hydralazine. 3. Consider transfusion if hemoglobin continues to go down 4. Maintain mean arterial blood pressure around 60-65 5. If potassium needs to be replaced suggest use NG tube and avoid using D5W IV
[2017-12-05 09:03] LABS: Glucose,Whole Blood 161 mg/dL (75-99)
--- NOTE | 2017-12-05 09:35 | P.PN ---
Subjective Progress Note Date: 12/05/17 Principal diagnosis: Respiratory failure status post bypass grafting postop day #11 status post mitral valve repair, postop day #11 Progress note dated 11/29/2017 72-year-old male who is postop day #11, status post bypass grafting and mitral valve repair. He also has a history of shock, cardiomyopathy, diabetes mellitus , mitral regurgitation, history of remote nicotine dependence postoperative anemia diabetic retinopathy acute hepatocellular injury acute kidney injury ischemic colitis thrombocytopenia, chronic atrial fibrillation and hypoxemic respiratory failure. The patient currently is on the ventilator and the volume control plus mode. Vent settings include the assist control mode rate of 14, tidal volume 500 FiO2 35% PEEP of 5. PO2 was 149 pCO2 was 37 and pH of 7.46. The patient's currently not on any sedation. I switch him over to PSV of 13 CPAP of 5. Currently he is on IV Primacor 0.2 mics per kilogram per minute, insulin at 2.5 units an hour saline IV KVO and vital high protein at 42 with a goal of 42 mL an hour. The patient was admitted on the had a surgery on November 17 was extubated initially on the and reintubated on November 24. We did drop his FiO2 from 35-30% given a PaO2 of 149. Chest x-ray shows possible changes as well as a right-sided pleural effusion. Relatively small. Progress note dated 11/30/2017 72-year-old male postop day #12, status post bypass grafting and mitral valve repair. The patient also has a history of shock, cardiomyopathy, diabetes mellitus, mitral regurgitation, remote nicotine dependence, postoperative anemia , diabetic retinopathy, hepatocellular injury, acute kidney injury, ischemic colitis, thrombocytopenia, chronic atrial fibrillation and hypoxemic respiratory failure. The patient currently is on the ventilator. The mode is volume assist control with a rate of 14, tidal volume 500, FiO2 30% and PEEP of 5. On those settings, the blood gases show a PaO2 of 107 pCO2 of 34 and a pH of 7.49. The patient is receiving a saline IV at 10 mL an hour Primacor 0.2 g insulin at 3.5 units an hour and vital 1.2 at 62 with a goal of 62 mL an hour. The patient spent about 7 hours on PSV 13 and CPAP of 5 yesterday. We cannot extubate him because the patient had did not have a cuff leak. We did add Decadron to the regimen at 6 mg every 6 hours 4 doses. The chest x-ray stable. Her labs are stable. White count is 12.8 hemoglobin 8 hematocrit 24.2 platelet count 136,000. Sodium 146 potassium 3.8 chloride is 113 CO2 26 anion gap normal BUN and creatinine are 131 and 1.6. His mental status is still not great. He has open his eyes. His stare is blank. Doesn't really follow commands well. This may be the limiting factor in terms of him being extubated. Progress note dated 12/01/2017 72-year-old male, postoperative day #13, is post bypass grafting and mitral valve repair. The patient has a history of cardiomyopathy shock liver diabetes mellitus mitral regurgitation remote nicotine dependence postoperative anemia that retinopathy acute kidney injury ischemic colitis thrombocytopenia chronic atrial fibrillation and hypoxemic respiratory failure. I was able to extubate the patient yesterday. We had to extubate him to BiPAP therapy. In addition, the patient needed sedation in the form of dexmedetomidine. Subsequently, the patient developed hypotension. He had some fluid boluses and then he required norepinephrine at 3 mcg/m. Remains on Primacor 0.2 g, dexmedetomidine 0.6, and insulin at 1 unit per hour. His IV is dextrose half-normal saline at 50 mL an hour. His BiPAP settings included IPAP of 12, EPAP of 5 and 40%. He is still not really with it mentally. He does have a blank stare on his face. Seemed to respond minimally. I don't think this is she changed that much. Chest x-ray and Lyme panel shows a touch of fluid overload with some bibasilar atelectasis and small effusions. Progress note dated 12/02/2017 72-year-old male, postop day #14, status post bypass grafting and mitral valve repair. The patient has a history of cardiomyopathy shock liver diabetes mitral regurgitation remote nicotine dependence postoperative anemia acute kidney injury ischemic colitis thrombocytopenia chronic atrial fibrillation and hypoxemic respiratory failure. The patient has recently had a difficult time being extubated. I was able to extubate him on November 30. The patient currently remains on BiPAP with an EPAP of 5 and an IPAP of 12. The FiO2 is 40% . Currently, the norepinephrine has been turned off. It was previously running at 2 mcg/m. He remains on Primacor at 0.2 mics dexmedetomidine at 0.4 g insulin at 1.5 units an hour dextrose at 50 mL an hour and a saline IV at 20 mL an hour. Attempts at placing a Dobbhoff tube yesterday were unsuccessful. The patient's mental status remains poor. He does not is set up and down the seems to understand when you speak to him but does have a blank stare on his face. Progress note dated 12/03/2017 72-year-old male, postoperative day #15, status post bypass grafting and mitral valve repair. The patient has a history of multiple medical problems. Recently , he was extubated and doing reasonably well. Unfortunately, yesterday, while attempting to place a Dobbhoff tube, the tube ended up in the lung and the patient developed acute respiratory failure and had to be reintubated at about 4 :30 PM yesterday. The tube was attempted to be placed by gastroenterology. Anyway, the patient back on the volume assist control mode with a rate of 22 tidal volume of 450. FiO2 is 50% and PEEP of 5. Arterial blood gases show a PaO2 of 76 a PaCO2 of 32 and a pH 7.48. Gases consistent with a relative hypoxemia and a respiratory alkalosis. The patient is on Primacor at 0.2 mcg/kg /m, propofol at 15 mcg/kg/m, norepinephrine at 2.5 mcg/m dextrose at 40 mL an hour insulin drip at 2.5 units per hour vital high protein 1.2 at 70 with a goal of 70 mL an hour. Apparently, the patient and the family has decided against tracheostomy and PEG tube in my plan for this patient would be to get him to the point of improvement and hopefully extubation again with the idea that he would not be reintubated. I believe he was reintubated again yesterday only because of the complication from the Dobbhoff tube being placed in the right lung. Progress note dated 12/04/2017 72-year-old male, postop day #16, status post bypass grafting along with mitral valve repair. The patient has a history of multiple medical problems and has had a very aryan postoperative course. More recently, the patient needed to be reintubated when he developed respiratory distress following the attempted placement of a Dobbhoff feeding tube. Currently, the patient on the volume assist control mode, rate 22 with a spontaneous rate of 28 tidal volume 450 FiO2 50% PEEP of 5. The patient's arterial blood gases show a PaO2 of 71 a PaCO2 of 36 and a pH of 7.45. This is consistent with a mild respiratory alkalosis. The patient's on an insulin drip at 3.5 units per hour, Primacor 0.2 mics per kilogram per minute, propofol at 20 mics per kilogram per minute norepinephrine is currently off these receiving vital 1.2 at a rate of 70 with a goal of 70 mL an hour. The patient is also receiving water flushes. Chest x- ray shows bilateral infiltrates left greater than right and small pleural effusions. According to the nurses, the patient has had a pretty much stable overnight. Apparently, the family is absolutely against tracheostomy and PEG tube placement. Progress note dated 12/05/2017 72-year-old male, postop day #17, status post bypass grafting along with mitral valve repair. The patient has had multiple issues following surgery. He was recently extubated and had to be reintubated when he developed acute respiratory distress following the attempted placement of a Dobbhoff feeding tube. The patient currently is on the volume assist control mode with a rate of 22, tidal volume 450, FiO2 50% and PEEP of 5. On those settings, pO2 of 76 a PaCO2 of 34 and pH is 7.48. The patient remains on Primacor at 0.2 mics per kilogram per minute, insulin 2 units per hour, norepinephrine at 3 mcg/m, and propofol at 25 mcg/kg/m. The patient's also on an IV of dextrose with 20 of potassium at 75 mL an hour. Chest x-ray shows cardiomegaly, improved aeration at the left lung base and small bilateral effusions. White count 11.5, hemoglobin 7, hematocrit 21.8 and platelet count 101,000. Sodium is improved to 147, potassium 3.8, chlorides 117 and CO2 24. Anion gap is normal. BUN is 108 and creatinine is 1.50 Objective - Vital Signs Vital signs: Vital Signs Temp 96.8 F L 12/05/17 04:00 Pulse 124 H 12/05/17 07:42 Resp 26 H 12/05/17 07:00 BP 91/60 12/05/17 07:00 Pulse Ox 97 12/05/17 07:00 Intake & Output 12/04/17 12/05/17 12/05/17 18:59 06:59 18:59 Intake Total 2841.806 2966.330 128.748 Output Total 884 830 100 Balance 3321.860 9608.330 28.748 Intake: IV 90.6 186.6 12.6 Milrinone-D5w Pmx 20 mg 4.6 50.6 4.6 In Dextrose/Water 1 100ml .bag @ 0.2 MCG/KG/MIN 4. 66 mls/hr IV .[id number] JANNA Rx#:[id number] NS 25 5 Piperacillin-Tazobactam 3 50 75.0 .375 gm In Dextrose/Water 1 50ml.bag @ 12.5 mls/hr IVPB Q8HR JANNA Rx#: [id number] Pressure Bags 36 36 3 Intake, IV Titration 291.206 169.730 46.148 Amount Insulin Regular 100 unit 22.239 45.220 8.148 In Sodium Chloride 0.9% 100 ml @ Per Protocol IV .Q0M JANNA Rx#:[id number] Milrinone-D5w Pmx 20 mg 100 10.33 In Dextrose/Water 1 100ml .bag @ 0.2 MCG/KG/MIN 4. 66 mls/hr IV .[id number] JANNA Rx#:[id number] Norepinephrine 16 mg In 20.757 14.180 Dextrose 5% in Water 250 ml @ Titrate IV .Q0M JANNA Rx#:[id number] Propofol 1,000 mg In 148.210 100 38 Empty Bag 1 bag @ Titrate IV .Q0M JANNA Rx#: [id number] Tube Feeding 840 1050 70 Other 1620 1560 Output: Urine 884 830 100 Other: Voiding Method Indwelling Catheter Indwelling Catheter ABP, PAP, CO, CI - Last Documented Arterial Blood Pressure 118/46 Pulmonary Artery Pressure 40/15 Cardiac Output 5.0 Cardiac Index 2.7 - Exam No acute distress, sedated with propofol, intubated, with an NG tube in place also. HEENT examination is grossly unremarkable. Mucous membranes are moist. Endotracheal tube and Dobbhoff tube is noted. Neck supple. Full range of motion. No adenopathy thyromegaly or neck vein distention. Cardiovascular examination reveals irregular rhythm rate. S1-S2 normal. No S3 or S4. No discernible murmur noted. Heart sounds are distant. Heart sounds are very distant. Lungs reveal scattered diffuse rhonchi. Breath sounds equal. A few scattered crackles and wheezes are noted. Abdomen soft, bowel sounds are heard. No masses or tenderness. Extremities are intact. Minimal edema is noted. No cyanosis or clubbing. Skin is without rash or lesion. Neurologic examination is difficult to assess. - Labs CBC & Chem 7: 12/05/17 04:25 12/05/17 04:25 Labs: Abnormal Lab Results - Last 24 Hours (Table) 12/04/17 12/04/17 12/04/17 Range/Units 10:34 12:11 14:29 WBC (3.8-10.6) k/uL RBC (4.30-5.90) m/uL Hgb (13.0-17.5) gm/dL Hct (39.0-53.0) % RDW (11.5-15.5) % Plt Count (150-450) k/uL Neutrophils # (1.3-7.7) k/uL Lymphocytes # (1.0-4.8) k/uL ABG pH (7.35-7.45) ABG pCO2 (35-45) mmHg ABG pO2 (83-108) mmHg ABG Total CO2 (19-24) mmol/L Sodium (137-145) mmol/L Chloride (98-107) mmol/L BUN (9-20) mg/dL Creatinine (0.66-1.25) mg/dL Glucose (74-99) mg/dL POC Glucose (mg/dL) 100 H 131 H 147 H (75-99) mg/dL Calcium (8.4-10.2) mg/dL Total Bilirubin (0.2-1.3) mg/dL AST (17-59) U/L ALT (21-72) U/L Alkaline Phosphatase (38-126) U/L Total Protein (6.3-8.2) g/dL Albumin (3.5-5.0) g/dL 12/04/17 12/04/17 12/04/17 Range/Units 16:39 18:15 20:58 WBC (3.8-10.6) k/uL RBC (4.30-5.90) m/uL Hgb (13.0-17.5) gm/dL Hct (39.0-53.0) % RDW (11.5-15.5) % Plt Count (150-450) k/uL Neutrophils # (1.3-7.7) k/uL Lymphocytes # (1.0-4.8) k/uL ABG pH (7.35-7.45) ABG pCO2 (35-45) mmHg ABG pO2 (83-108) mmHg ABG Total CO2 (19-24) mmol/L Sodium (137-145) mmol/L Chloride (98-107) mmol/L BUN (9-20) mg/dL Creatinine (0.66-1.25) mg/dL Glucose (74-99) mg/dL POC Glucose (mg/dL) 140 H 133 H 124 H (75-99) mg/dL Calcium (8.4-10.2) mg/dL Total Bilirubin (0.2-1.3) mg/dL AST (17-59) U/L ALT (21-72) U/L Alkaline Phosphatase (38-126) U/L Total Protein (6.3-8.2) g/dL Albumin (3.5-5.0) g/dL 12/04/17 12/05/17 12/05/17 Range/Units 21:47 00:20 01:30 WBC (3.8-10.6) k/uL RBC (4.30-5.90) m/uL Hgb (13.0-17.5) gm/dL Hct (39.0-53.0) % RDW (11.5-15.5) % Plt Count (150-450) k/uL Neutrophils # (1.3-7.7) k/uL Lymphocytes # (1.0-4.8) k/uL ABG pH (7.35-7.45) ABG pCO2 (35-45) mmHg ABG pO2 (83-108) mmHg ABG Total CO2 (19-24) mmol/L Sodium (137-145) mmol/L Chloride (98-107) mmol/L BUN (9-20) mg/dL Creatinine (0.66-1.25) mg/dL Glucose (74-99) mg/dL POC Glucose (mg/dL) 140 H 113 H 149 H (75-99) mg/dL Calcium (8.4-10.2) mg/dL Total Bilirubin (0.2-1.3) mg/dL AST (17-59) U/L ALT (21-72) U/L Alkaline Phosphatase (38-126) U/L Total Protein (6.3-8.2) g/dL Albumin (3.5-5.0) g/dL 12/05/17 12/05/17 12/05/17 Range/Units 03:04 04:21 04:25 WBC (3.8-10.6) k/uL RBC (4.30-5.90) m/uL Hgb (13.0-17.5) gm/dL Hct (39.0-53.0) % RDW (11.5-15.5) % Plt Count (150-450) k/uL Neutrophils # (1.3-7.7) k/uL Lymphocytes # (1.0-4.8) k/uL ABG pH 7.48 H (7.35-7.45) ABG pCO2 34 L (35-45) mmHg ABG pO2 76 L (83-108) mmHg ABG Total CO2 26 H (19-24) mmol/L Sodium 147 H (137-145) mmol/L Chloride 117 H (98-107) mmol/L BUN 108 H* (9-20) mg/dL Creatinine 1.50 H (0.66-1.25) mg/dL Glucose 147 H (74-99) mg/dL POC Glucose (mg/dL) 159 H (75-99) mg/dL Calcium 7.4 L (8.4-10.2) mg/dL Total Bilirubin 2.6 H (0.2-1.3) mg/dL AST 111 H (17-59) U/L ALT 104 H (21-72) U/L Alkaline Phosphatase 197 H (38-126) U/L Total Protein 4.8 L (6.3-8.2) g/dL Albumin 1.7 L (3.5-5.0) g/dL 12/05/17 12/05/17 12/05/17 Range/Units 04:25 05:47 09:00 WBC 11.5 H (3.8-10.6) k/uL RBC 2.37 L (4.30-5.90) m/uL Hgb 7.0 L* (13.0-17.5) gm/dL Hct 21.8 L (39.0-53.0) % RDW 18.7 H (11.5-15.5) % Plt Count 101 L (150-450) k/uL Neutrophils # 10.4 H (1.3-7.7) k/uL Lymphocytes # 0.3 L (1.0-4.8) k/uL ABG pH (7.35-7.45) ABG pCO2 (35-45) mmHg ABG pO2 (83-108) mmHg ABG Total CO2 (19-24) mmol/L Sodium (137-145) mmol/L Chloride (98-107) mmol/L BUN (9-20) mg/dL Creatinine (0.66-1.25) mg/dL Glucose (74-99) mg/dL POC Glucose (mg/dL) 174 H 161 H (75-99) mg/dL Calcium (8.4-10.2) mg/dL Total Bilirubin (0.2-1.3) mg/dL AST (17-59) U/L ALT (21-72) U/L Alkaline Phosphatase (38-126) U/L Total Protein (6.3-8.2) g/dL Albumin (3.5-5.0) g/dL Assessment and Plan Assessment: Assessment Status post bypass grafting, postop day #17 Status post reintubation on December 02 secondary to misplacement of Dobbhoff feeding tube. Postoperative ventilator management, with failure to wean, status post extubation to BiPAP therapy on 11/30/2017 Status post initial extubation on November 18 and reintubation on November 24. Postop day #17, status post mitral valve repair for mitral regurgitation Ischemic cardiomyopathy Type 2 diabetes mellitus History of kidney nicotine dependence Postoperative anemia Diabetic retinopathy Shock liver Acute kidney injury Ischemic colitis Thrombocytopenia Chronic atrial fibrillation Acute hypoxemic respiratory failure Plan: Plan dated 11/29/2017 The patient's labs and x-rays are all reviewed. Medications are reviewed. The patient will be switched over to pressure support of 13 and CPAP of 5. We'll drop the FiO2 down to 30%. I'll repeat a blood gas in one hour. The patient's chest x-ray shows a right-sided pleural effusion. The patient was initially extubated on November 18 and reintubated on November 24. The patient remains on IV Primacor insulin drip at [facility] fluids and is being nourished vital high protein at goal. Blood gases are reasonable. PaO2 of 149 PaCO2 37 and a pH of 7.46. The patient's currently not on any sedation. We'll attempt to wean him if possible. White count is 17.4 hemoglobin 6.9 hematocrit 22.0 platelet count 106 ,000. Sodium is 147 potassium 3.8 chloride is 113 and CO2 is 26 BUN and creatinine are 131 and 1.0. AST 123 ALT 212 alkaline phosphatase 204. Total bilirubin is 3.7. Sputum from November showed Klebsiella oxytoca. Arterial blood gases will be repeated in one hour. The patient needs additional water flushes given the increasing sodium and chloride levels. Prognosis is guarded. Critical care time 38 minutes Plan dated 11/30/2017 The patient's labs and x-rays are reviewed. Chest x-ray remains very similar to yesterday's chest x-ray. The patient will be placed back on pressure support and CPAP. Would consider weaning parameters blood gas and a cuff leak. Yesterday, the patient did not have a cuff leak. We added Decadron 6 mg every 6 hours for 4 doses. The patient's medications are reviewed. I'm hoping that we can get the patient towards extubation here in either today or tomorrow. Additional recommendations and suggestions are forthcoming. Prognosis is guarded. The patient remains on appropriate medications. The case was discussed with cardiothoracic surgery. Critical care time 33 minutes Plan dated 12/01/2017 The patient's labs x-rays a medications are reviewed. Chest x-ray my opinion shows just some mild fluid overload with some bibasilar atelectasis and small effusions. The patient remains on a number of medications including Primacor, norepinephrine, Precedex, and insulin. The patient's mental status in my opinion is still poor. His white count is 13.7 hemoglobin 8.1 hematocrit 25.0 platelet count 138,000. Sodium 149 potassium 3.5 chloride 117 CO2 is 26 BUN and creatinine were 126 and 1.60. His liver enzymes are elevated at 93 and 161 respectively. This was for the AST and ALT. Bilirubin 3.5. Albumin 2.3. Sputum was positive back on November 24 for Klebsiella oxytoca medications are reviewed. Prognosis is guarded. Critical care time 34 minutes Plan dated 12/02/2017 The patient's labs x-rays a medications are all reviewed. The chest x-ray my opinion continues to show a fluid overload. There was small effusions and some bibasilar atelectasis. The patient remains on BiPAP at 12 and 5 and 40%. Norepinephrine has been weaned off. The patient remains on Primacor and Precedex. I like to be able to wean the Precedex off. The patient remains on an insulin drip at 1.5 units an hour. The patient is also getting some basic IV fluids. The patient's overall prognosis remains extremely poor. White count is 12.4, hemoglobin 7.8, hematocrit 24.6 and platelet count 123,000. Sodium 151 potassium 3.5 chloride is 119 CO2 24 anion gap is normal and BUN and creatinine is 118 and 1.60. The rest of the comprehensive metabolic profile is evaluated. Critical care time is 34 minutes. Plan dated 12/03/2017 The patient remains on Primacor, propofol, norepinephrine, insulin, and dextrose IV. The patient is being nourished enterally. The patient patient's vent settings were changed slightly. Rate was increased to 22 and tidal volume was dropped to 450. Arterial blood gases show a relative hypoxemia and a mild respiratory alkalosis. White count of 16.9 hemoglobin 7.9 hematocrit 25.1 and platelet count 144,000. Sodium 152 potassium 4 chloride 121 CO2 23 BUN and creatinine of 111 and 1.71. The rest of the labs are reviewed. Chest x-ray shows diffuse bilateral infiltrates with small effusions. Medications are reviewed. Prognosis is very guarded. Apparently, the patient did not want a tracheostomy or a feeding tube done prior to surgery. Critical care time 32 minutes Plan dated 12/04/2017 The chest x-rays reviewed. White count 13.9 hemoglobin 7.5 hematocrit 22.9 and platelet count 112,000. Sodium 150 potassium 3.6 chloride 120 CO2 26 with a BUN and creatinine of 107 and 1.50. Microbiology is unchanged. Chest x-ray was reviewed. That settings are appropriate. The plan would be to get the patient back to where we think we could extubate him with the idea that once extubated, he would not be reintubated. Apparently the family is adamant against tracheostomy and PEG tube placement. We'll continue to talk to the family. His overall situation is quite complex. His prognosis is guarded. He is getting nurse via the Dobbhoff tube. Critical care time is 33 minutes Plan dated 12/05/2017 The patient is doing about the same. The patient remains on Primacor insulin norepinephrine and propofol. The patient is getting nourishment via the Dobbhoff tube. Ventilator settings are appropriate. Chest x-ray is reviewed and shows improved aeration to the left base. There are small effusions bilaterally. Medications labs and x-rays are all reviewed. Microbiology is reviewed. Prognosis is guarded. Apparently the family does not want the patient have a tracheostomy tube or a PEG tube. Apparently they are adamant about his apparently he was as well. We will continue to follow. Additional recommendations and suggestions are forthcoming. Critical care time 33 minutes Time with Patient: Greater than 30
[2017-12-05] MEDS ORDERED: FUROSEMIDE 10 MG/ML 4 ML VIAL IV STA (10:28)
--- NOTE | 2017-12-05 10:40 | P.PN ---
Subjective Progress Note Date: 12/05/17 Principal diagnosis: Triple-vessel coronary artery disease, severe ischemic cardiomyopathy with a preoperative ejection fraction of 25-30%, moderate mitral valve regurgitation, mild tricuspid valve regurgitation, diabetes mellitus type 2, hyperlipidemia, moderate to severe restrictive lung disease with a preoperative FEV1 of 43% of predicted value, preoperative bilateral small to moderate pleural effusions, evidence of diffuse calcific coronary artery disease, and evidence of old inferior posterior, apical myocardial infarction and remote history of tobacco dependence. POD #19 placement of intra-aortic balloon pump. POD #18 quadruple coronary artery bypass grafting using the left internal mammary artery to the left anterior descending coronary artery, a reverse greater saphenous vein graft from the aorta to the diagonal coronary artery, reverse greater saphenous vein graft from the aorta to the first obtuse marginal coronary artery, a reverse greater saphenous vein graft from the aorta to the posterior descending coronary artery. A mitral valve repair using a complete annuloplasty with a 30 mm Kapoor IMR ring, exclusion of the left atrial appendage using a 35 mm Atriclip, intraoperative transesophageal echocardiogram and epi-aortic scanning, and intraoperative graft flow measurements using the [employer] system. Postoperative normochromic anemia, and expected outcome of surgery secondary to cardiopulmonary bypass and hemodilution. Postoperative thrombocytopenia, an expected outcome of surgery. Postoperative atrial fibrillation, an expected outcome of surgery. Postoperative elevated transaminases, an unexpected outcome of surgery, likely secondary to low flow state post surgery. Postoperative acute kidney injury, an unexpected outcome of surgery, likely secondary to low flow state post surgery. Postoperative acute metabolic acidosis, lactic acidosis, reintubation, an unexpected outcome. Postoperative cardiogenic shock, an unexpected outcome. Postoperative hypernatremia, an unexpected outcome. Acute hypoxemic respiratory failure requiring a second reintubation, an unexpected outcome. The patient remains intubated with mechanical ventilator support. Sedation remains with propofol at 25 mcg/kg/m. A Dobbhoff tube was successfully placed by Dr. Borjas on 12/03/2017 and tube feedings were initiated at 70 mL an hour of vital AF with automatic water flushes. Norepinephrine drip is infusing at 3 mcg/m. Primacor drip remains at 0.2 mcg/kg/m. WBC count remains trending down yesterday was 13.9 and today is 11.5. Bedside monitor is showing episodes of atrial fibrillation, heart rate currently 124. Remains on Zosyn for positive sputum culture growing Klebsiella oxytoca. Lasix 20 mg IV was given 1 yesterday although the patient only diuresis 200 mL of urine after the Lasix dose. Objective - Vital Signs Vital signs: Vital Signs Temp 96.8 F L 12/05/17 04:00 Pulse 124 H 12/05/17 07:42 Resp 26 H 12/05/17 07:00 BP 91/60 12/05/17 07:00 Pulse Ox 97 12/05/17 07:00 Intake & Output 12/04/17 12/05/17 12/05/17 18:59 06:59 18:59 Intake Total 2841.806 2966.330 128.748 Output Total 884 830 100 Balance 5231.575 1853.330 28.748 Intake: IV 90.6 186.6 12.6 Milrinone-D5w Pmx 20 mg 4.6 50.6 4.6 In Dextrose/Water 1 100ml .bag @ 0.2 MCG/KG/MIN 4. 66 mls/hr IV .[id number] JANNA Rx#:[id number] NS 25 5 Piperacillin-Tazobactam 3 50 75.0 .375 gm In Dextrose/Water 1 50ml.bag @ 12.5 mls/hr IVPB Q8HR JANNA Rx#: [id number] Pressure Bags 36 36 3 Intake, IV Titration 291.206 169.730 46.148 Amount Insulin Regular 100 unit 22.239 45.220 8.148 In Sodium Chloride 0.9% 100 ml @ Per Protocol IV .Q0M JANNA Rx#:[id number] Milrinone-D5w Pmx 20 mg 100 10.33 In Dextrose/Water 1 100ml .bag @ 0.2 MCG/KG/MIN 4. 66 mls/hr IV .[id number] JANNA Rx#:[id number] Norepinephrine 16 mg In 20.757 14.180 Dextrose 5% in Water 250 ml @ Titrate IV .Q0M JANNA Rx#:[id number] Propofol 1,000 mg In 148.210 100 38 Empty Bag 1 bag @ Titrate IV .Q0M JANNA Rx#: [id number] Tube Feeding 840 1050 70 Other 1620 1560 Output: Urine 884 830 100 Other: Voiding Method Indwelling Catheter Indwelling Catheter ABP, PAP, CO, CI - Last Documented Arterial Blood Pressure 118/46 Pulmonary Artery Pressure 40/15 Cardiac Output 5.0 Cardiac Index 2.7 - Constitutional Constitutional Comment(s): Patient remains intubated with mechanical ventilator support. He remains on propofol drip for sedation at 25 mcg/kg/m. He is not following any simple verbal commands at this time. General appearance: Present: no acute distress - Respiratory Details: Lung sounds with few scattered rhonchi throughout, diminished his bilateral bases. Respirations are symmetrical and unlabored with mechanical ventilator support. Current ventilator settings are as follows: Assist control 22, TV 450 , FiO2 50%, PEEP 5. Current ABG results are pH 7.48, pCO2 34, pO2 of 76, HCO3 25, oxygen saturation 96.9, base excess 1.8. Oxygen saturations 97% on current ventilator settings. #[address] and secured at 24 cm at the lip. - Cardiovascular Details: Irregular rhythm with tachycardic rate. S1 and S2 present, negative for S3, gallop or murmur. Sternum is stable. Bedside telemetry showing atrial fibrillation heart rate 124. Atrial and ventricular epicardial pacemaker wires in place and grounded. Knee-high MERLYN hose and sequential compression devices in place was bilateral lower extremities. Right radial arterial line in place and functioning. Left brachial PICC line in place and functioning. Primacor drip remains at 0.2 mcg/kg/m. Heart hugger is in place. Norepinephrine drip at 3 mcg/m. - Gastrointestinal Gastrointestinal Comment(s): Abdomen is soft, nontender and nondistended. Active bowel sounds all 4 quadrants. Right near Dobbhoff tube in place with vital AF tube feeding infusing at goal rate of 70 mL per hour with automatic water flushes at 500 mL every 4 hours. F[address] system in place with liquid brown stool. - Genitourinary Genitourinary Comment(s): Marie catheter for accurate I&O. Draining clear marta urine. 430 mL output in the last 8 hours. - Integumentary Integumentary Comment(s): Skin is warm and dry. No clubbing or cyanosis present. Midline sternal incision clean and dry and approximated. No drainage or redness present. Left leg EVH site clean dry and approximated. No drainage or redness present. Stage II pressure ulcer to his coccyx, Optifoam dressing secured and intact. - Neurologic Neurologic Comment(s): Remains sedated with propofol drip. - Musculoskeletal Musculoskeletal: Present: generalized weakness - Allied health notes Allied health notes reviewed: nursing - Labs CBC & Chem 7: 12/05/17 04:25 12/05/17 04:25 Labs: Abnormal Lab Results - Last 24 Hours (Table) 12/04/17 12/04/17 12/04/17 Range/Units 10:34 12:11 14:29 WBC (3.8-10.6) k/uL RBC (4.30-5.90) m/uL Hgb (13.0-17.5) gm/dL Hct (39.0-53.0) % RDW (11.5-15.5) % Plt Count (150-450) k/uL Neutrophils # (1.3-7.7) k/uL Lymphocytes # (1.0-4.8) k/uL ABG pH (7.35-7.45) ABG pCO2 (35-45) mmHg ABG pO2 (83-108) mmHg ABG Total CO2 (19-24) mmol/L Sodium (137-145) mmol/L Chloride (98-107) mmol/L BUN (9-20) mg/dL Creatinine (0.66-1.25) mg/dL Glucose (74-99) mg/dL POC Glucose (mg/dL) 100 H 131 H 147 H (75-99) mg/dL Calcium (8.4-10.2) mg/dL Total Bilirubin (0.2-1.3) mg/dL AST (17-59) U/L ALT (21-72) U/L Alkaline Phosphatase (38-126) U/L Total Protein (6.3-8.2) g/dL Albumin (3.5-5.0) g/dL 12/04/17 12/04/17 12/04/17 Range/Units 16:39 18:15 20:58 WBC (3.8-10.6) k/uL RBC (4.30-5.90) m/uL Hgb (13.0-17.5) gm/dL Hct (39.0-53.0) % RDW (11.5-15.5) % Plt Count (150-450) k/uL Neutrophils # (1.3-7.7) k/uL Lymphocytes # (1.0-4.8) k/uL ABG pH (7.35-7.45) ABG pCO2 (35-45) mmHg ABG pO2 (83-108) mmHg ABG Total CO2 (19-24) mmol/L Sodium (137-145) mmol/L Chloride (98-107) mmol/L BUN (9-20) mg/dL Creatinine (0.66-1.25) mg/dL Glucose (74-99) mg/dL POC Glucose (mg/dL) 140 H 133 H 124 H (75-99) mg/dL Calcium (8.4-10.2) mg/dL Total Bilirubin (0.2-1.3) mg/dL AST (17-59) U/L ALT (21-72) U/L Alkaline Phosphatase (38-126) U/L Total Protein (6.3-8.2) g/dL Albumin (3.5-5.0) g/dL 12/04/17 12/05/17 12/05/17 Range/Units 21:47 00:20 01:30 WBC (3.8-10.6) k/uL RBC (4.30-5.90) m/uL Hgb (13.0-17.5) gm/dL Hct (39.0-53.0) % RDW (11.5-15.5) % Plt Count (150-450) k/uL Neutrophils # (1.3-7.7) k/uL Lymphocytes # (1.0-4.8) k/uL ABG pH (7.35-7.45) ABG pCO2 (35-45) mmHg ABG pO2 (83-108) mmHg ABG Total CO2 (19-24) mmol/L Sodium (137-145) mmol/L Chloride (98-107) mmol/L BUN (9-20) mg/dL Creatinine (0.66-1.25) mg/dL Glucose (74-99) mg/dL POC Glucose (mg/dL) 140 H 113 H 149 H (75-99) mg/dL Calcium (8.4-10.2) mg/dL Total Bilirubin (0.2-1.3) mg/dL AST (17-59) U/L ALT (21-72) U/L Alkaline Phosphatase (38-126) U/L Total Protein (6.3-8.2) g/dL Albumin (3.5-5.0) g/dL 12/05/17 12/05/17 12/05/17 Range/Units 03:04 04:21 04:25 WBC (3.8-10.6) k/uL RBC (4.30-5.90) m/uL Hgb (13.0-17.5) gm/dL Hct (39.0-53.0) % RDW (11.5-15.5) % Plt Count (150-450) k/uL Neutrophils # (1.3-7.7) k/uL Lymphocytes # (1.0-4.8) k/uL ABG pH 7.48 H (7.35-7.45) ABG pCO2 34 L (35-45) mmHg ABG pO2 76 L (83-108) mmHg ABG Total CO2 26 H (19-24) mmol/L Sodium 147 H (137-145) mmol/L Chloride 117 H (98-107) mmol/L BUN 108 H* (9-20) mg/dL Creatinine 1.50 H (0.66-1.25) mg/dL Glucose 147 H (74-99) mg/dL POC Glucose (mg/dL) 159 H (75-99) mg/dL Calcium 7.4 L (8.4-10.2) mg/dL Total Bilirubin 2.6 H (0.2-1.3) mg/dL AST 111 H (17-59) U/L ALT 104 H (21-72) U/L Alkaline Phosphatase 197 H (38-126) U/L Total Protein 4.8 L (6.3-8.2) g/dL Albumin 1.7 L (3.5-5.0) g/dL 12/05/17 12/05/17 12/05/17 Range/Units 04:25 05:47 09:00 WBC 11.5 H (3.8-10.6) k/uL RBC 2.37 L (4.30-5.90) m/uL Hgb 7.0 L* (13.0-17.5) gm/dL Hct 21.8 L (39.0-53.0) % RDW 18.7 H (11.5-15.5) % Plt Count 101 L (150-450) k/uL Neutrophils # 10.4 H (1.3-7.7) k/uL Lymphocytes # 0.3 L (1.0-4.8) k/uL ABG pH (7.35-7.45) ABG pCO2 (35-45) mmHg ABG pO2 (83-108) mmHg ABG Total CO2 (19-24) mmol/L Sodium (137-145) mmol/L Chloride (98-107) mmol/L BUN (9-20) mg/dL Creatinine (0.66-1.25) mg/dL Glucose (74-99) mg/dL POC Glucose (mg/dL) 174 H 161 H (75-99) mg/dL Calcium (8.4-10.2) mg/dL Total Bilirubin (0.2-1.3) mg/dL AST (17-59) U/L ALT (21-72) U/L Alkaline Phosphatase (38-126) U/L Total Protein (6.3-8.2) g/dL Albumin (3.5-5.0) g/dL - Imaging and Cardiology Chest x-ray: report reviewed, image reviewed Assessment and Plan (1) DVT prophylaxis Current Visit: Yes Status: Acute Code(s): LYH0400 - SNOMED Code(s): 224656901 (2) Ischemic cardiomyopathy Current Visit: Yes Status: Acute Code(s): I25.5 - ISCHEMIC CARDIOMYOPATHY SNOMED Code(s): 924923906 (3) Coronary artery disease Current Visit: Yes Status: Chronic Code(s): I25.10 - ATHSCL HEART DISEASE OF [place] CORONARY ARTERY W/O ANG PCTRS SNOMED Code(s): 91881572 (4) Diabetes mellitus Current Visit: Yes Status: Chronic Code(s): E11.9 - TYPE 2 DIABETES MELLITUS WITHOUT COMPLICATIONS SNOMED Code(s): 13492694 (5) Hyperlipidemia Current Visit: Yes Status: Chronic Code(s): E78.5 - HYPERLIPIDEMIA, UNSPECIFIED SNOMED Code(s): 73335159 (6) Mitral regurgitation Current Visit: Yes Status: Chronic Code(s): I34.0 - NONRHEUMATIC MITRAL ( VALVE) INSUFFICIENCY SNOMED Code(s): 79579475 (7) History of myocardial infarction Current Visit: No Status: Resolved Code(s): I25.2 - OLD MYOCARDIAL INFARCTION SNOMED Code(s): 316626618 (8) Tobacco dependence in remission Current Visit: No Status: Resolved Code(s): F17.201 - NICOTINE DEPENDENCE, UNSPECIFIED, IN REMISSION SNOMED Code(s): 011844219 (9) Congestive heart failure with cardiomyopathy and cardiomegaly Current Visit: Yes Status: Acute Code(s): I50.9 - HEART FAILURE, UNSPECIFIED ; I42.9 - CARDIOMYOPATHY, UNSPECIFIED; I51.7 - CARDIOMEGALY SNOMED Code(s): 354308364965766 (10) S/P CABG x 4 Current Visit: Yes Status: Acute Code(s): Z95.1 - PRESENCE OF AORTOCORONARY BYPASS GRAFT SNOMED Code(s): 538289292 (11) S/P mitral valve repair Current Visit: Yes Status: Acute Code(s): Z98.890 - OTHER SPECIFIED POSTPROCEDURAL STATES SNOMED Code(s): 043325824 (12) Gram-negative pneumonia Current Visit: Yes Status: Acute Code(s): J15.6 - PNEUMONIA DUE TO OTHER GRAM-NEGATIVE BACTERIA SNOMED Code(s): 218649506 Plan: 1. Continue low-dose aspirin, Plavix, statin, subcu heparin, beta michelle. 2. Continue amiodarone for A. fib prophylaxis. 3. Continue Primacor at 0.2 mcg/kg/min. 4. Continue to feedings per dietitian's recommendations. Monitor for residuals. Continue automatic water flushes 500 mL every 4 hours. 5. Continue FMS for liquid stools. 6. Wean propofol as tolerated. 7. No nephrotoxic, hepatotoxic agents. 8. Keep Fong catheter for strict accurate intake and output. Fong catheter changed 11/27/17. 9. Ventilator management, bronchodilators per pulmonology. 10. Will monitor daily labs and x-rays. Continue ferrous sulfate. 11. Antibiotic management per pulmonology, sputum culture positive for Klebsiella oxytoca. Blood cultures, urine culture negative. 12. Pain control with current medication regimen. 13. GI/DVT prophylaxis. 14. Insulin drip/diabetic management per primary care service. 15. Dr. Pool from infectious disease following. 16. Continue full CODE STATUS. 17. We will transfuse 1 unit of PRBCs today for a hemoglobin of 7.0, Lasix 40 mg IV 1 to follow the transfusion of PRBCs. 18. Wean norepinephrine as tolerated. 19. Further recommendations to follow based on patient's clinical course. Time with Patient: Greater than 30
[2017-12-05 11:03] LABS: Glucose,Whole Blood 183 mg/dL (75-99)
[2017-12-05 11:59] LABS: Glucose,Whole Blood 184 mg/dL (75-99)
[2017-12-05] MEDS: ARTIFICIAL TEARS OINTMENT 3.5 GM TUBE BOTH EYES PRN (12:00)
--- NOTE | 2017-12-05 13:45 | P.PN ---
Subjective Progress Note Date: 12/05/17 his is a pleasant gentleman patient of Dr. Spann, newly established to the office to evaluate shortness of breath, dyspnea on exertion, underwent cardiac cath and found to have ischemic cardiomyopathy with severe LV dysfunction, triple-vessel disease prior to bypass surgery, admitted for bypass surgery and valve repair. He has underlying history of diabetes mellitus type 2, hyperlipidemia, Cardiac cath performed 11/09/2017 shows left main coronary up was calcified, circumflex 95% stenosis in the ostial portion, LAD totally occluded just of to the origin of the large diagonal branch, diagonal branch from the percent stenosis, 70% stenosis in the PDA and PLV severe left ventricle systolic dysfunction and mitral regurgitation He is currently in ICU being prepped for CABG and mitral valve repair on 2017 and has intra-aortic balloon pump done through the right femoral artery. 11/17: Patient is having open-heart surgery today. 11/18: Patient is status post quadruple coronary artery bypass grafting using the left internal mammary artery to the left anterior descending coronary artery, a reverse greater saphenous vein graft from the aorta to the diagonal coronary artery, reverse greater saphenous vein graft from the aorta to the first obtuse marginal coronary artery, a reverse greater saphenous vein graft from the aorta to the posterior descending coronary artery and mitral valve repair. Patient remains in the intensive care unit intubated and on mechanical ventilation currently on CPAP for weaning parameters. He continues to have intra-aortic balloon pump in place which is plan to keep for 1 more day. He has a right, left and mediastinal chest tubes in place draining serosanguineous fluid. Urine output is 50-60 mL per hour. He is also on vasopressors. Hemoglobin A1c is 6.7. 8: Patient remains in the intensive care unit. He is currently off oxygen and pulse oxing. He continues to have all [address] Balloon pump was removed. Urine output has been adequate. White count is normal. Hemoglobin 7.3, INR 1.5, creatinine 0.93, blood sugars are running between 104 and 127. He has been afebrile. Heart rate running in the 90s. Blood pressure is stable with current vasopressors. Pulse ox is 9700% on room air. Patient denies having any chest pain. No abdominal pain. No nausea. 84. Patient examined the bedside in the ICU. Currently off oxygen. He is not making enough urine output. Creatinine function has worsened from 0.8-1.2. Hemoglobin 7 this morning status post transfusion 1 unit PRBC. Patient is denies any chest pain, shortness of breath is resting comfortably in the chair. He still continues to have [address] with a AARON drain. Blood sugar between 100-125. 11/21 patient examined bedside in the ICU. Brief episode of atrial fibrillation last night and one dose of IV amiodarone given followed by a maintenance dose Afinitor on 400 mg twice a day. Creatinine increased to 1.8 today. Patient is having minimal urine output with less than 10 mL per hour. Patient may benefit from IV fluids as he has minimal oral intake and has minimal urine output. One bag of 250 mg abdomen given today. Patient received 2 units of PRBCs C yesterday. No bowel movements for the past 3 days. Patient is passing gas. Continue with bowel regimen 11/22: Patient hasn't been noted to have increasing renal numbers with BUN of 66 and creatinine 2.2 and nephrology has been consult did. Patient is also noted to have low urine output and dark urine. He is not eating very much. Patient is more lethargic today. He denies any abdominal pain. Heart rate is controlled in a sinus rhythm. He is currently on oral amiodarone and Lopressor for atrial fibrillation. No anticoagulation due to thrombocytopenia. He is currently off label fed but continued on Primacor. 11/23: Patient has been seen by hematology for thrombocytopenia secondary to shock liver and consumption. Fibrinogen to be checked. Patient be transfused if platelet count is less than 50,000. One dose of vitamin K was given for INR of 1.8 yesterday. INR today is at 2.5, platelet count 41. BUN 89, creatinine 2.30, AST 1470, ALT 721. Urinalysis is turbid, leukoesterase moderate, RBCs greater than 182, wbc's 37, Patient has also been seen by nephrology for acute kidney injury, acute tubular necrosis, oliguria. Recommendations to transfuse if hemoglobin is falls below 7.4 fluid bolus was attempted without improvement and patient was started on Lasix drip. Patient is also continued on Primacor. Urine output has been 35-75 mL per hour. Heart rate has been elevated in the low 100s. Patient has received calcium chloride 1 dose yesterday and repeat today. He was started on Midodrine 10 mg 3 times daily yesterday. He is more lethargic today. He has failed a swallow eval and speech therapy added. Patient has been started on Zoloft for depression but patient appears to be more acute delirium. Patient has been on and off norepinephrine as his blood pressures dropping into the 80 systolic when he sleeps. 11/24: Lasix drip has been discontinued. Patient has received 4 A of bicarbonate is on a bicarb drip. Patient is on levofed and vasopressin along with Primacor. He has received vitamin K and fresh frozen plasma. Urine output is 15-20 mL per hour. Central line was placed today requiring of fresh frozen plasma and vitamin K. There is concern for need of hemodialysis. Patient has diarrhea after having constipation and fecal management system has been placed. His mental status continued to decline yesterday and by this morning he was re -intubated. White count is increasing to 18.5, hemoglobin 7.1, platelet count 48. INR is 2.9, BUN 103, creatinine 3.17, phosphorus 7.5, magnesium 2.7, AST 1301, ALT 623. Total bilirubin is 5.8. Cortisol level was greater than 123. Patient will be resumed back on insulin drip due to hyperglycemia. Echocardiogram reveals EF of 40-45%, mild concentric left ventricular hypertrophy, and only mild gently dilated 34-39, moderate mitral stenosis, mild tricuspid regurgitation, mild pulmonary hypertension 11/25: Patient remains intubated and on mechanical ventilation. We resumed insulin drip yesterday. He remains on Levophed and milrinone. Renal function remains poor. 11/26: Patient remains in the intensive care unit, intubated and on mechanical ventilation. Patient has had good urine output. He remains on vasopressin, norepinephrine, insulin drip. BUN is 114 and creatinine 2.2, phosphorus 4.5, white count 14.6. Hemoglobin is 7. There are no orders for transfusion. INR is 1.7. Liver function tests are improving. Sputum culture showing gram- negative bacilli. 11/27: Patient continued to be intubated does not follow commands. Patient has developed atrial fibrillation and heart rate is currently controlled. Patient continued to require levo fed infusion at 6 mics per Per minute 11/28:Patient continued to be distended does not follow commands. Patient has developed atrial fibrillation and heart rate is currently controlled. Patient was following commands by squeezing his hand this morning but currently is off sedation but still not following commands patient is moving his head to the right than to the left spontaneously and currently still on full vent support 11/29: Patient remains intubated and on mechanical ventilation. He is currently being CPAP. He has been off vasopressors since over the weekend. He is also off midodrine. Patient started on hydralazine. He is more alert and able to squeeze his hands with direction. Left is noted to be stronger than the right. He has continued on Primacor and insulin. We have ordered one dose of Ferrlecit and he is scheduled for transfusion 1 unit of packed RBCs for hemoglobin of 6.9. Liver function tests are improving. BUN is 131 and creatinine 1.6. 11/30: Patient remains in intensive care unit intubated and on mechanical ventilation. He continues to be off vasopressors. He remains on Primacor. Urine output has been between 45 and 150 mL per hour. BUN 131 and creatinine 1.6. White count is down to 12.8, hemoglobin is now 8 after 1 unit of packed RBCs and he received Ferrlecit yesterday. White blood count is recovering now at 136. Liver function tests are all improving as well. Overall, patient is showing slow gradual improvement. Another dose of Ferrlecit has been ordered by nephrology. 12/01: Patient has been successfully extubated yesterday and now on BiPAP. Patient is currently on Precedex. He was placed on low-dose label fed and is currently being weaned. Central line and chest tube on the right to be removed today. White count is 13.7, hemoglobin 8.1, BUN 126 and creatinine 1.6. Capillary blood glucose running between 132 and 152. Her function tests continue to improve. 12/02: Patient remains in the intensive care unit. A Dobbhoff was attempted yesterday but was unsuccessful and to be retry today. Capillary blood glucose running between 149 and 164. White count is down to 12.4, hemoglobin is at 7.8. Renal function shows a BUN of 118 and creatinine 1.6. Liver function tests continue to improve slowly but are not back to normal range. 12/03: Patient remains in intensive care unit. Attempted Dobbhoff tube was attempted by STEVEN yesterday but second attempt was also unsuccessful and patient required reintubation for acute respiratory failure. Patient is on Primacor and propofol, low dose norepinephrine. Asians does not wish for tracheostomy and PEG tube as those were the patient's wishes. Patient has had diarrhea starting a urine specimen to be sent for C. difficile toxin. 12/04: Patient remains in intensive care unit, he continues to be on the ventilator with an before meals mode FiO2 50% appears extremely weak, he was seen along with the cardiothoracic surgery service, we will continue to monitor the patient very closely prognosis very guarded. 12/05: Patient is sedated with propofol his currently on the ventilator continues to be on milrinone and Midrin along with levo, the plan is for the patient to have the trach and PEG this discussion was entertained with the by the cardiothoracic surgery service and the plan is still not okayed as the patient did not want to go for this. Objective - Vital Signs Vital signs: Vital Signs Temp 96.8 F L 12/05/17 04:00 Pulse 124 H 12/05/17 07:42 Resp 26 H 12/05/17 07:00 BP 91/60 12/05/17 07:00 Pulse Ox 97 12/05/17 07:00 Intake & Output 12/04/17 12/05/17 12/05/17 18:59 06:59 18:59 Intake Total 2841.806 2966.330 128.748 Output Total 884 830 100 Balance 3678.447 1625.330 28.748 Intake: IV 90.6 186.6 12.6 Milrinone-D5w Pmx 20 mg 4.6 50.6 4.6 In Dextrose/Water 1 100ml .bag @ 0.2 MCG/KG/MIN 4. 66 mls/hr IV .[id number] JANNA Rx#:[id number] NS 25 5 Piperacillin-Tazobactam 3 50 75.0 .375 gm In Dextrose/Water 1 50ml.bag @ 12.5 mls/hr IVPB Q8HR JANNA Rx#: [id number] Pressure Bags 36 36 3 Intake, IV Titration 291.206 169.730 46.148 Amount Insulin Regular 100 unit 22.239 45.220 8.148 In Sodium Chloride 0.9% 100 ml @ Per Protocol IV .Q0M JANNA Rx#:[id number] Milrinone-D5w Pmx 20 mg 100 10.33 In Dextrose/Water 1 100ml .bag @ 0.2 MCG/KG/MIN 4. 66 mls/hr IV .[id number] JANNA Rx#:[id number] Norepinephrine 16 mg In 20.757 14.180 Dextrose 5% in Water 250 ml @ Titrate IV .Q0M JANNA Rx#:[id number] Propofol 1,000 mg In 148.210 100 38 Empty Bag 1 bag @ Titrate IV .Q0M JANNA Rx#: [id number] Tube Feeding 840 1050 70 Other 1620 1560 Output: Urine 884 830 100 Other: Voiding Method Indwelling Catheter Indwelling Catheter ABP, PAP, CO, CI - Last Documented Arterial Blood Pressure 118/46 Pulmonary Artery Pressure 40/15 Cardiac Output 5.0 Cardiac Index 2.7 - Exam - Exam General appearance: average body habitus, cooperative, no acute distress - EENT Eyes: anicteric sclerae, EOMI, PERRLA, dentition normal, normal appearance no vision in the left eye blurring of the cornea ENT: NA/AT, normal oropharynx, intubated and on mechanical ventilation - Respiratory Respiratory: bilateral: Scattered rhonchi, negative: diminished, dullness, rales , wheezing, - Cardiovascular Rhythm: Regularly irregular Heart sounds: normal: S1, S2 Abnormal Heart Sounds: no systolic murmur, no diastolic murmur, no rub, no S3 Gallop, no S4 Gallop, no click, no other - Gastrointestinal General gastrointestinal: normal bowel sounds, soft, Fong draining clear dark urine - Integumentary Integumentary: normal, normal turgor - Neurologic Neurologic: Patient sedated - Musculoskeletal Musculoskeletal: gait not assessed, patient sedated - Labs CBC & Chem 7: 12/05/17 04:25 12/05/17 11:00 Labs: Abnormal Lab Results - Last 24 Hours (Table) 12/04/17 12/04/17 12/04/17 Range/Units 10:34 12:11 14:29 WBC (3.8-10.6) k/uL RBC (4.30-5.90) m/uL Hgb (13.0-17.5) gm/dL Hct (39.0-53.0) % RDW (11.5-15.5) % Plt Count (150-450) k/uL Neutrophils # (1.3-7.7) k/uL Lymphocytes # (1.0-4.8) k/uL ABG pH (7.35-7.45) ABG pCO2 (35-45) mmHg ABG pO2 (83-108) mmHg ABG Total CO2 (19-24) mmol/L Sodium (137-145) mmol/L Chloride (98-107) mmol/L BUN (9-20) mg/dL Creatinine (0.66-1.25) mg/dL Glucose (74-99) mg/dL POC Glucose (mg/dL) 100 H 131 H 147 H (75-99) mg/dL Calcium (8.4-10.2) mg/dL Total Bilirubin (0.2-1.3) mg/dL AST (17-59) U/L ALT (21-72) U/L Alkaline Phosphatase (38-126) U/L Total Protein (6.3-8.2) g/dL Albumin (3.5-5.0) g/dL 12/04/17 12/04/17 12/04/17 Range/Units 16:39 18:15 20:58 WBC (3.8-10.6) k/uL RBC (4.30-5.90) m/uL Hgb (13.0-17.5) gm/dL Hct (39.0-53.0) % RDW (11.5-15.5) % Plt Count (150-450) k/uL Neutrophils # (1.3-7.7) k/uL Lymphocytes # (1.0-4.8) k/uL ABG pH (7.35-7.45) ABG pCO2 (35-45) mmHg ABG pO2 (83-108) mmHg ABG Total CO2 (19-24) mmol/L Sodium (137-145) mmol/L Chloride (98-107) mmol/L BUN (9-20) mg/dL Creatinine (0.66-1.25) mg/dL Glucose (74-99) mg/dL POC Glucose (mg/dL) 140 H 133 H 124 H (75-99) mg/dL Calcium (8.4-10.2) mg/dL Total Bilirubin (0.2-1.3) mg/dL AST (17-59) U/L ALT (21-72) U/L Alkaline Phosphatase (38-126) U/L Total Protein (6.3-8.2) g/dL Albumin (3.5-5.0) g/dL 12/04/17 12/05/17 12/05/17 Range/Units 21:47 00:20 01:30 WBC (3.8-10.6) k/uL RBC (4.30-5.90) m/uL Hgb (13.0-17.5) gm/dL Hct (39.0-53.0) % RDW (11.5-15.5) % Plt Count (150-450) k/uL Neutrophils # (1.3-7.7) k/uL Lymphocytes # (1.0-4.8) k/uL ABG pH (7.35-7.45) ABG pCO2 (35-45) mmHg ABG pO2 (83-108) mmHg ABG Total CO2 (19-24) mmol/L Sodium (137-145) mmol/L Chloride (98-107) mmol/L BUN (9-20) mg/dL Creatinine (0.66-1.25) mg/dL Glucose (74-99) mg/dL POC Glucose (mg/dL) 140 H 113 H 149 H (75-99) mg/dL Calcium (8.4-10.2) mg/dL Total Bilirubin (0.2-1.3) mg/dL AST (17-59) U/L ALT (21-72) U/L Alkaline Phosphatase (38-126) U/L Total Protein (6.3-8.2) g/dL Albumin (3.5-5.0) g/dL 12/05/17 12/05/17 12/05/17 Range/Units 03:04 04:21 04:25 WBC (3.8-10.6) k/uL RBC (4.30-5.90) m/uL Hgb (13.0-17.5) gm/dL Hct (39.0-53.0) % RDW (11.5-15.5) % Plt Count (150-450) k/uL Neutrophils # (1.3-7.7) k/uL Lymphocytes # (1.0-4.8) k/uL ABG pH 7.48 H (7.35-7.45) ABG pCO2 34 L (35-45) mmHg ABG pO2 76 L (83-108) mmHg ABG Total CO2 26 H (19-24) mmol/L Sodium 147 H (137-145) mmol/L Chloride 117 H (98-107) mmol/L BUN 108 H* (9-20) mg/dL Creatinine 1.50 H (0.66-1.25) mg/dL Glucose 147 H (74-99) mg/dL POC Glucose (mg/dL) 159 H (75-99) mg/dL Calcium 7.4 L (8.4-10.2) mg/dL Total Bilirubin 2.6 H (0.2-1.3) mg/dL AST 111 H (17-59) U/L ALT 104 H (21-72) U/L Alkaline Phosphatase 197 H (38-126) U/L Total Protein 4.8 L (6.3-8.2) g/dL Albumin 1.7 L (3.5-5.0) g/dL 12/05/17 12/05/17 12/05/17 Range/Units 04:25 05:47 09:00 WBC 11.5 H (3.8-10.6) k/uL RBC 2.37 L (4.30-5.90) m/uL Hgb 7.0 L* (13.0-17.5) gm/dL Hct 21.8 L (39.0-53.0) % RDW 18.7 H (11.5-15.5) % Plt Count 101 L (150-450) k/uL Neutrophils # 10.4 H (1.3-7.7) k/uL Lymphocytes # 0.3 L (1.0-4.8) k/uL ABG pH (7.35-7.45) ABG pCO2 (35-45) mmHg ABG pO2 (83-108) mmHg ABG Total CO2 (19-24) mmol/L Sodium (137-145) mmol/L Chloride (98-107) mmol/L BUN (9-20) mg/dL Creatinine (0.66-1.25) mg/dL Glucose (74-99) mg/dL POC Glucose (mg/dL) 174 H 161 H (75-99) mg/dL Calcium (8.4-10.2) mg/dL Total Bilirubin (0.2-1.3) mg/dL AST (17-59) U/L ALT (21-72) U/L Alkaline Phosphatase (38-126) U/L Total Protein (6.3-8.2) g/dL Albumin (3.5-5.0) g/dL Assessment and Plan Assessment: Assessment and Plan Plan: (1) Coronary artery disease and moderate mitral valve regurgitation Triple vessel disease noted on cardiac cath agent status post CABG and mitral valve repair on all 11/17/2017. Continue on aspirin, metoprolol. ICU cabinet mounter Dr. Paul/Delonte on consult. Continue current management per cardio vascular surgery team (2) Ischemic cardiomyopathy Has impaired ejection fraction of 38%, along with congestive heart failure. (3) Congestive heart failure with cardiomyopathy Acute on chronic systolic and diastolic heart failure (4) Hyperlipidemia Patient currently not on statins (5) GI prophylaxis (6) DVT prophylaxis (7) Steal syndrome, subclavian Carotid Dopplers 11/10/2017 shows no carotid stenosis however there is to and fro flow within the right vertebral artery could reflect manifestation of subclavian steal physiology prior to with continuous flow reversal. Currently asymptomatic continue to monitor (8) Pulmonary hypertension PILAR on 11/10/2017, moderate pulmonary hypertension also shows intact atrial septum with no evidence of [id number] shunt physiology, unable to locate pressures for right ventricular systolic 9. Thrombocytopenia secondary to consumption. Numbers improved and patient has been resumed back on aspirin, Plavix. Consult with oncology appreciated. Recommendations for platelet transfusion if less than 50,000. 10. Anemia, secondary to a combination of acute blood loss and renal failure with drop in hemoglobin from 10-6.5. Patient is status post multiple blood products. Ferrlecit infusion. 11. Acute kidney injury, acute tubular necrosis, oliguric secondary to hypotension, hypoperfusion. Consult with nephrology appreciated. Off Lasix drip. Status post IV sodium bicarb. 12. Post op atrial fibrillation, expected outcome of surgery. Patient has been on amiodarone and Lopressor. 13. Liver transaminitis and coagulopathy secondary to shock liver oncology consult appreciated. Continue to monitor closely. 14. Depression, situational. Zoloft was subsequently discontinued. 15. Acute delirium secondary to acute illness. 16. Hyperglycemia without diabetes. Patient resumed on insulin drip. Hemoglobin A1c is 6.7. 17. Cardiorenal syndrome and cardiogenic shock requiring IV vasopressors. 18. Diarrhea with possible acute GI bleed with acute blood loss anemia. Fecal management system was required. Stool for occult blood is positive. C diff toxin is negative on first specimen. C. difficile toxin to be rechecked. Patient may need fecal management system replaced. 19. Acute hypoxic respiratory failure requiring reintubation and mechanical ventilation subsequently extubated. Prognosis guarded.
[2017-12-05 14:51] LABS: Glucose,Whole Blood 177 mg/dL (75-99)
[2017-12-05] MEDS: MILRINONE-D5W PMX 20 MG in DEXTROSE/WATER 1 100ML.BAG IV SCH (14:51)
[2017-12-05 16:00] LABS: Glucose,Whole Blood 166 mg/dL (75-99)
[2017-12-05 18:01] LABS: Glucose,Whole Blood 173 mg/dL (75-99)
[2017-12-05 19:05] LABS: Magnesium 2.2 mg/dL (1.6-2.3)
[2017-12-05 19:14] LABS: Potassium 4.4 mmol/L (3.5-5.1)
[2017-12-05 19:56] LABS: Glucose,Whole Blood 171 mg/dL (75-99)
[2017-12-05] MEDS: prednisoLONE ACETATE 1% OPHTH DROPS 5 ML BTL LEFT EYE SCH (20:04)
[2017-12-05] MEDS: ATORVASTATIN 40 MG TAB PO SCH (20:04)
[2017-12-05] MEDS: ERYTHROMYCIN 5 MG/GM OPHTH OINT 3.5 GM TUBE LEFT EYE SCH (20:04)
[2017-12-05 20:16] LABS: Anisocytosis Slight; HCT 25.2 % (39.0-53.0); HGB 8.2 gm/dL (13.0-17.5); Hypochromasia Moderate; MCH 30.1 pg (25.0-35.0); MCHC 32.5 g/dL (31.0-37.0); MCV 92.6 fL (80.0-100.0); Mean Platelet Volume 10.7; Poikilocytosis Slight; RBC 2.73 m/uL (4.30-5.90); RDW 18.3 % (11.5-15.5); WBC 11.5 k/uL (3.8-10.6)
[2017-12-05 20:18] LABS: Platelet Count 97 k/uL (150-450)
[2017-12-05 23:57] LABS: Glucose,Whole Blood 173 mg/dL (75-99)
[2017-12-06] MEDS: IPRATROPIUM-ALBUTEROL 3 ML NEB INHALATION SCH ×7 (00:08→23:57)
[2017-12-06 02:23] LABS: Glucose,Whole Blood 170 mg/dL (75-99)
[2017-12-06 04:28] LABS: Glucose,Whole Blood 141 mg/dL (75-99)
[2017-12-06 04:45] LABS: Anisocytosis Slight; Basophils % (A) 0 %; Eosinophils # (A) 0.2 k/uL (0-0.7); Eosinophils % (A) 2 %; HCT 24.6 % (39.0-53.0); HGB 7.8 gm/dL (13.0-17.5); Hypochromasia Moderate; Lymphocytes # (A) 0.4 k/uL (1.0-4.8); Lymphocytes % (A) 4 %; MCHC 31.9 g/dL (31.0-37.0); Mean Platelet Volume 11.5; Monocytes # (A) 0.4 k/uL (0-1.0); Monocytes % (A) 4 %; Neutrophils # (A) 9.3 k/uL (1.3-7.7); Neutrophils % (A) 88 %; Platelet Count 94 k/uL (150-450); Poikilocytosis Slight; RDW 18.3 % (11.5-15.5); WBC 10.5 k/uL (3.8-10.6)
[2017-12-06 05:07] LABS: Albumin 1.8 g/dL (3.5-5.0); Magnesium 2.1 mg/dL (1.6-2.3); Phosphorus 3.7 mg/dL (2.5-4.5); Total Bilirubin 2.7 mg/dL (0.2-1.3); Total Protein 4.9 g/dL (6.3-8.2)
[2017-12-06 05:11] LABS: Ionized Calcium 6.6 mg/dL (4.5-5.3)
[2017-12-06 05:25] LABS: ABG Base Excess -2.6 mmol/L; ABG HCO3 22 mmol/L (21-25); ABG Oxygen Saturation 98.1 % (94-97); ABG PCO2 36 mmHg (35-45); ABG PO2 88 mmHg (83-108); ABG TCO2 23 mmol/L (19-24)
[2017-12-06] MEDS: PROPOFOL 1,000 MG in EMPTY BAG 1 BAG IV SCH ×3 (05:42→20:17)
[2017-12-06] MEDS ORDERED: DEXTROSE 5% IN WATER 100 ML with AMIODARONE 150 MG IV ONE (05:45)
[2017-12-06 06:08] LABS: Glucose,Whole Blood 151 mg/dL (75-99)
[2017-12-06] MEDS: ASCORBIC ACID 500 MG TAB PO SCH ×2 (08:15→17:55)
[2017-12-06] MEDS: AMIODARONE 200 MG TAB PO SCH (08:15)
[2017-12-06] MEDS: FERROUS SULFATE ORAL ELIXIR 300 MG/5 ML CUP PO SCH ×2 (08:15→17:55)
[2017-12-06] MEDS: HEPARIN SODIUM,PORCINE 5,000 UNIT/ML 1 ML VIAL SQ SCH ×3 (08:15→23:39)
[2017-12-06] MEDS: PANTOPRAZOLE 40 MG/10 ML VIAL IVP SCH ×2 (08:16→20:40)
[2017-12-06] MEDS: SERTRALINE 25 MG TAB PO SCH (08:16)
[2017-12-06] MEDS: ASPIRIN 81 MG PO SCH (08:16)
[2017-12-06] MEDS: CLOPIDOGREL 75 MG TAB PO SCH (08:16)
[2017-12-06] MEDS: METOPROLOL TARTRATE 25 MG TAB PO SCH ×2 (08:16→20:40)
[2017-12-06] MEDS: CHLORHEXIDINE GLUCONATE 15 ML CUP MUCOUS MEM SCH ×2 (08:16→20:39)
[2017-12-06] MEDS: LACTOBACILLUS ACIDOPH & BULGAR 1 EACH PACKET PO SCH ×4 (08:16→21:01)
--- NOTE | 2017-12-06 08:27 | XR ---
EXAMINATION TYPE: XR chest 1V portable DATE OF EXAM: 12/06/2017 COMPARISON: 12/05/2017 INDICATION: Post cardiac surgery post intubation TECHNIQUE: Single frontal view of the chest is obtained. FINDINGS: The heart size is enlarged. The pulmonary vasculature is normal. Left lower lobe infiltrate is present. There is blunting the left and right costophrenic angles. Effu sions may be present. Left-sided PICC line is present with the tip in the main superior vena cava region. Endotracheal tube is present with the tip above the daiana. Dobbhoff feeding tube has its tip in left upper quadrant o f the abdomen. IMPRESSION: 1. Left lower lobe infiltrate. Correlate for atelectasis and pneumonia. 2. Small bilateral pleural effusions
[2017-12-06] MEDS: D5W WITH KCL 20 MEQ/L 1,000 ML IV SCH ×2 (08:29→18:16)
[2017-12-06 08:55] LABS: Glucose,Whole Blood 141 mg/dL (75-99)
[2017-12-06] MEDS: MIDODRINE 5 MG TAB PO SCH ×3 (08:58→17:55)
[2017-12-06] MEDS ORDERED: DIGOXIN 250 MCG/ML 2 ML AMP IVP STA ×2 (09:06→15:58)
[2017-12-06] MEDS: FUROSEMIDE 10 MG/ML 4 ML VIAL IV SCH ×2 (09:43→20:40)
--- NOTE | 2017-12-06 09:54 | P.PN ---
Subjective Patient is seen in follow-up for acute kidney injury. Creatinine was greater than 3 on admission - now stable at 1.5-1.6. Patient underwent CABG and mitral valve repair this admission. Ejection fraction is 30-35%. Hemoglobin 6.9 on s/p pRBC transfusion - hgb 7.8 today. He is on 2.5 mics of levophed. He is nonoliguric. Currently intubated. Edema worse. Receiving tube feeds with water flushes 500 cc q4h. Vital signs are stable. General: The patient appeared well nourished and normally developed. HEENT: Head exam is unremarkable. Neck is without jugular venous distension. LUNGS: Breath sounds decreased. HEART: Rate and Rhythm are regular. First and second heart sounds normal. No murmurs, rubs or gallops. ABDOMEN: Abdominal exam reveals normal bowel sounds. Non-tender and non- distended. No evidence of peritonitis. EXTREMITITES: 1+ edema. Objective - Vital Signs Vital signs: Vital Signs Temp 99 F 12/06/17 04:00 Pulse 139 H 12/06/17 08:55 Resp 28 H 12/06/17 07:00 BP 108/60 12/06/17 07:00 Pulse Ox 100 12/06/17 07:00 Intake & Output 12/05/17 12/06/17 12/06/17 18:59 06:59 18:59 Intake Total 4046.762 3927.248 239.769 Output Total 853 1415 65 Balance 3193.762 2512.248 174.769 Weight 85.4 kg 89.4 kg Intake: IV 110.6 979.1 82.6 D5w with KCl 20 Meq/l 1, 825 75 000 ml @ 75 mls/hr IV . [id number] JANNA Rx#:[id number] Milrinone-D5w Pmx 20 mg 4.6 50.6 4.6 In Dextrose/Water 1 100ml .bag @ 0.2 MCG/KG/MIN 4. 66 mls/hr IV .[id number] JANNA Rx#:[id number] NS 20 5 Piperacillin-Tazobactam 3 50.0 62.5 .375 gm In Dextrose/Water 1 50ml.bag @ 12.5 mls/hr IVPB Q8HR JANNA Rx#: [id number] Pressure Bags 36 36 3 Intake, IV Titration 1026.162 328.148 87.169 Amount D5w with KCl 20 Meq/l 1, 785 75 000 ml @ 75 mls/hr IV . [id number] JANNA Rx#:[id number] Insulin Regular 100 unit 27.882 52.157 In Sodium Chloride 0.9% 100 ml @ Per Protocol IV .Q0M JANNA Rx#:[id number] Milrinone-D5w Pmx 20 mg 85.977 In Dextrose/Water 1 100ml .bag @ 0.2 MCG/KG/MIN 4. 66 mls/hr IV .[id number] JANNA Rx#:[id number] Norepinephrine 16 mg In 27.303 15.487 34.221 Dextrose 5% in Water 250 ml @ Titrate IV .Q0M JANNA Rx#:[id number] Propofol 1,000 mg In 100 185.504 52.948 Empty Bag 1 bag @ Titrate IV .Q0M JANNA Rx#: [id number] Tube Feeding 1050 1120 70 Blood Product 310 Rc As-1 Unit 310 [id number] Other 1550 1500 Rc As-1 Unit 50 [id number] Output: Urine 853 1015 65 Stool 400 Other: Voiding Method Indwelling Catheter Indwelling Catheter ABP, PAP, CO, CI - Last Documented Arterial Blood Pressure 120/44 Pulmonary Artery Pressure 40/15 Cardiac Output 5.0 Cardiac Index 2.7 - Labs CBC & Chem 7: 12/06/17 04:35 12/06/17 04:35 Labs: Abnormal Lab Results - Last 24 Hours (Table) 12/05/17 12/05/17 12/05/17 Range/Units 10:59 11:00 11:57 WBC (3.8-10.6) k/uL RBC (4.30-5.90) m/uL Hgb (13.0-17.5) gm/dL Hct (39.0-53.0) % RDW (11.5-15.5) % Plt Count (150-450) k/uL Neutrophils # (1.3-7.7) k/uL Lymphocytes # (1.0-4.8) k/uL ABG O2 Saturation (94-97) % Chloride (98-107) mmol/L BUN (9-20) mg/dL Creatinine (0.66-1.25) mg/dL Glucose (74-99) mg/dL POC Glucose (mg/dL) 183 H 184 H (75-99) mg/dL Calcium (8.4-10.2) mg/dL Ionized Calcium Leighann (4.5-5.3) mg/dL Total Bilirubin (0.2-1.3) mg/dL AST (17-59) U/L ALT (21-72) U/L Alkaline Phosphatase (38-126) U/L Total Protein (6.3-8.2) g/dL Albumin (3.5-5.0) g/dL Crossmatch See Detail 12/05/17 12/05/17 12/05/17 Range/Units 14:49 15:57 17:59 WBC (3.8-10.6) k/uL RBC (4.30-5.90) m/uL Hgb (13.0-17.5) gm/dL Hct (39.0-53.0) % RDW (11.5-15.5) % Plt Count (150-450) k/uL Neutrophils # (1.3-7.7) k/uL Lymphocytes # (1.0-4.8) k/uL ABG O2 Saturation (94-97) % Chloride (98-107) mmol/L BUN (9-20) mg/dL Creatinine (0.66-1.25) mg/dL Glucose (74-99) mg/dL POC Glucose (mg/dL) 177 H 166 H 173 H (75-99) mg/dL Calcium (8.4-10.2) mg/dL Ionized Calcium Leighann (4.5-5.3) mg/dL Total Bilirubin (0.2-1.3) mg/dL AST (17-59) U/L ALT (21-72) U/L Alkaline Phosphatase (38-126) U/L Total Protein (6.3-8.2) g/dL Albumin (3.5-5.0) g/dL Crossmatch 12/05/17 12/05/17 12/05/17 Range/Units 18:00 19:54 23:55 WBC 11.5 H (3.8-10.6) k/uL RBC 2.73 L (4.30-5.90) m/uL Hgb 8.2 L (13.0-17.5) gm/dL Hct 25.2 L (39.0-53.0) % RDW 18.3 H (11.5-15.5) % Plt Count 97 L (150-450) k/uL Neutrophils # (1.3-7.7) k/uL Lymphocytes # (1.0-4.8) k/uL ABG O2 Saturation (94-97) % Chloride (98-107) mmol/L BUN (9-20) mg/dL Creatinine (0.66-1.25) mg/dL Glucose (74-99) mg/dL POC Glucose (mg/dL) 171 H 173 H (75-99) mg/dL Calcium (8.4-10.2) mg/dL Ionized Calcium Leighann (4.5-5.3) mg/dL Total Bilirubin (0.2-1.3) mg/dL AST (17-59) U/L ALT (21-72) U/L Alkaline Phosphatase (38-126) U/L Total Protein (6.3-8.2) g/dL Albumin (3.5-5.0) g/dL Crossmatch 12/06/17 12/06/17 12/06/17 Range/Units 02:21 04:26 04:35 WBC (3.8-10.6) k/uL RBC (4.30-5.90) m/uL Hgb (13.0-17.5) gm/dL Hct (39.0-53.0) % RDW (11.5-15.5) % Plt Count (150-450) k/uL Neutrophils # (1.3-7.7) k/uL Lymphocytes # (1.0-4.8) k/uL ABG O2 Saturation (94-97) % Chloride 112 H (98-107) mmol/L BUN 105 H* (9-20) mg/dL Creatinine 1.62 H (0.66-1.25) mg/dL Glucose 131 H (74-99) mg/dL POC Glucose (mg/dL) 170 H 141 H (75-99) mg/dL Calcium 7.0 L (8.4-10.2) mg/dL Ionized Calcium Leighann 6.6 H* (4.5-5.3) mg/dL Total Bilirubin 2.7 H (0.2-1.3) mg/dL AST 129 H (17-59) U/L ALT 106 H (21-72) U/L Alkaline Phosphatase 227 H (38-126) U/L Total Protein 4.9 L (6.3-8.2) g/dL Albumin 1.8 L (3.5-5.0) g/dL Crossmatch 12/06/17 12/06/17 12/06/17 Range/Units 04:35 05:23 05:43 WBC (3.8-10.6) k/uL RBC 2.70 L (4.30-5.90) m/uL Hgb 7.8 L (13.0-17.5) gm/dL Hct 24.6 L (39.0-53.0) % RDW 18.3 H (11.5-15.5) % Plt Count 94 L (150-450) k/uL Neutrophils # 9.3 H (1.3-7.7) k/uL Lymphocytes # 0.4 L (1.0-4.8) k/uL ABG O2 Saturation 98.1 H (94-97) % Chloride (98-107) mmol/L BUN (9-20) mg/dL Creatinine (0.66-1.25) mg/dL Glucose (74-99) mg/dL POC Glucose (mg/dL) (75-99) mg/dL Calcium (8.4-10.2) mg/dL Ionized Calcium Leighann 6.3 H* (4.5-5.3) mg/dL Total Bilirubin (0.2-1.3) mg/dL AST (17-59) U/L ALT (21-72) U/L Alkaline Phosphatase (38-126) U/L Total Protein (6.3-8.2) g/dL Albumin (3.5-5.0) g/dL Crossmatch 12/06/17 12/06/17 Range/Units 06:06 08:52 WBC (3.8-10.6) k/uL RBC (4.30-5.90) m/uL Hgb (13.0-17.5) gm/dL Hct (39.0-53.0) % RDW (11.5-15.5) % Plt Count (150-450) k/uL Neutrophils # (1.3-7.7) k/uL Lymphocytes # (1.0-4.8) k/uL ABG O2 Saturation (94-97) % Chloride (98-107) mmol/L BUN (9-20) mg/dL Creatinine (0.66-1.25) mg/dL Glucose (74-99) mg/dL POC Glucose (mg/dL) 151 H 141 H (75-99) mg/dL Calcium (8.4-10.2) mg/dL Ionized Calcium Leighann (4.5-5.3) mg/dL Total Bilirubin (0.2-1.3) mg/dL AST (17-59) U/L ALT (21-72) U/L Alkaline Phosphatase (38-126) U/L Total Protein (6.3-8.2) g/dL Albumin (3.5-5.0) g/dL Crossmatch Assessment and Plan Plan: Assessment: 1. Nonoliguric acute kidney injury secondary to ATN secondary to hemodynamic instability/post CABG. Renal function improved since admission with creatinine stable at 1.5-1.6 last few days. Baseline creatinine is 1. 2. Status post CABG and mitral valve repair. 3. Systolic CHF with ejection fraction of 30-35%. 4. Anemia status post blood transfusion this admission. Hgb 7.8 today. Severe iron deficiency noted. Status post 2 doses of IV iron. 5. Hypotension on 2.5 mics of Levophed. Cortisol level 29. 6. Hypernatremia from lack of oral water intake. Sodium 142 today. 7. Acute hypoxic respiratory failure currently on ventilator support. 8. Hypocalcemia secondary to hypoalbuminemia. Corrected calcium in the normal range. 9. Volume overload. Plan: Decrease free water flushes to 300 mL every 6 hours with tube feeds. Lasix 40 mg IV bid. Avoid nephrotoxins. Continue to monitor renal function and urine output. Wean pressors.
[2017-12-06 10:28] LABS: Glucose,Whole Blood 135 mg/dL (75-99)
[2017-12-06] MEDS: MILRINONE-D5W PMX 20 MG in DEXTROSE/WATER 1 100ML.BAG IV SCH ×10 (11:19→14:12)
--- NOTE | 2017-12-06 11:45 | P.PN ---
Subjective Progress Note Date: 12/06/17 Principal diagnosis: Triple-vessel coronary artery disease. Severe ischemic cardiomyopathy. Moderate mitral valve regurgitation. Mild tricuspid valve regurgitation. Diabetes mellitus with preoperative hemoglobin A1c 6.7%. Hyperlipidemia. Moderate to severe restrictive lung disease with preoperative FEV1 43% of predicted. Evidence of diffuse calcific coronary artery disease. 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 Previous tobacco dependence. POD #20 placement of preoperative intra-aortic balloon pump POD #19 quadruple coronary artery bypass grafting using the left internal mammary artery to the left anterior descending artery, reverse saphenous vein graft from the aorta to the diagonal artery, reverse saphenous vein graft from the aorta to the first obtuse marginal artery, reverse saphenous vein graft from the aorta to the posterior descending artery. Mitral valve repair using a complete ring annuloplasty with a 30 mm Kapoor IMR ring. Exclusion of the left atrial appendage using a 35 mm Atriclip. Intraoperative transesophageal echocardiogram and epi-aortic scanning. Intraoperative graft flow measurements using the [employer] system. Post operative normocytic, normochromic anemia, an expected outcome of surgery. Postoperative thrombocytopenia, an expected outcome of surgery. Postoperative atrial fibrillation, an expected outcome of surgery. Postoperative elevated transaminases, an unexpected outcome of surgery, likely secondary to low flow state post surgery. Postoperative acute kidney injury, an unexpected outcome of surgery, likely secondary to low flow state post surgery. Postoperative acute metabolic acidosis, lactic acidosis, reintubation, an unexpected outcome. Postoperative cardiogenic shock, an unexpected outcome. Postoperative hypernatremia, an unexpected outcome. Acute hypoxemic respiratory failure requiring a second reintubation, an unexpected outcome. Patient remains intubated and sedated. Dobbhoff was placed on 12/03/2017, tube feedings and free water flushes continue. Patient was on levo and 4 mics this morning being titrated down, Midodrin was increased. Primacor continues, decreased to 0.2 mcg/kg/min. Urine output remains 60-90 mL/h overnight. His BUN this morning is 105 from 108, creatinine is 1.62 up from 1.5. He is being tube fed at goal of 70 mL per hour with free water flushes, changed to 300 mL every 6 hours. Diarrhea continues. Liver enzymes continue to improve. Hemaglobin this morning is 7.8 from 7.0, transfusion of 1 unit packed red blood cells yesterday. White blood cell count has decreased 10.5 from 11.5, currently on zosyn with sputum culture growing Klebsiella oxytoca, platelet count has decreased today to 94 from 101. He is rapid atrial fibrillation on telemetry with heart rate in the 120s. He remains critical, prognosis is guarded. His has been updated daily. Objective - Vital Signs Vital signs: Vital Signs Temp 99 F 12/06/17 04:00 Pulse 139 H 12/06/17 08:55 Resp 28 H 12/06/17 07:00 BP 108/60 12/06/17 07:00 Pulse Ox 100 12/06/17 07:00 Intake & Output 12/05/17 12/06/17 12/06/17 18:59 06:59 18:59 Intake Total 4046.762 3927.248 249.270 Output Total 853 1415 65 Balance 3193.762 2512.248 184.270 Weight 85.4 kg 89.4 kg Intake: IV 110.6 979.1 82.6 D5w with KCl 20 Meq/l 1, 825 75 000 ml @ 75 mls/hr IV . [id number] JANNA Rx#:[id number] Milrinone-D5w Pmx 20 mg 4.6 50.6 4.6 In Dextrose/Water 1 100ml .bag @ 0.2 MCG/KG/MIN 4. 66 mls/hr IV .[id number] JANNA Rx#:[id number] NS 20 5 Piperacillin-Tazobactam 3 50.0 62.5 .375 gm In Dextrose/Water 1 50ml.bag @ 12.5 mls/hr IVPB Q8HR JANNA Rx#: [id number] Pressure Bags 36 36 3 Intake, IV Titration 1026.162 328.148 96.670 Amount D5w with KCl 20 Meq/l 1, 785 75 000 ml @ 75 mls/hr IV . [id number] JANNA Rx#:[id number] Insulin Regular 100 unit 27.882 52.157 In Sodium Chloride 0.9% 100 ml @ Per Protocol IV .Q0M JANNA Rx#:[id number] Milrinone-D5w Pmx 20 mg 85.977 In Dextrose/Water 1 100ml .bag @ 0.2 MCG/KG/MIN 4. 66 mls/hr IV .[id number] JANNA Rx#:[id number] Norepinephrine 16 mg In 27.303 15.487 39.564 Dextrose 5% in Water 250 ml @ Titrate IV .Q0M JANNA Rx#:[id number] Propofol 1,000 mg In 100 185.504 57.106 Empty Bag 1 bag @ Titrate IV .Q0M JANNA Rx#: [id number] Tube Feeding 1050 1120 70 Blood Product 310 Rc As-1 Unit 310 [id number] Other 1550 1500 Rc As-1 Unit 50 [id number] Output: Urine 853 1015 65 Stool 400 Other: Voiding Method Indwelling Catheter Indwelling Catheter ABP, PAP, CO, CI - Last Documented Arterial Blood Pressure 120/44 Pulmonary Artery Pressure 40/15 Cardiac Output 5.0 Cardiac Index 2.7 - Constitutional General appearance: Present: no acute distress - Respiratory Details: Lungs sounds diminished bilaterally with scattered rhonchi. Respirations even, nonlabored on mechanical ventilation. Current settings assist control mode, FiO2 50%, tidal volume 450, respiratory rate 22, PEEP 5. ABGs this morning 7.4/ 36/88/22/98%/-2.6. 8.0 ET tube present, 24 at the lip. - Cardiovascular Details: S1, S2 present. Tachy, irregular rate and rhythm, A. fib RVR on telemetry. Sternum stable. A/V epicardial pacemaker wires present, grounded. Palpable peripheral pulses bilaterally. Bilateral lower extremity, scrotal edema present. Right radial arterial line, left brachial PICC line present. Levo being titrated off, Primacor decreased to 0.1 mcg/kg/min. Heart hugger, antiembolism stockings, SCDs present. - Gastrointestinal Gastrointestinal Comment(s): Abdomen soft, nontender, nondistended. Active bowel sounds present 4 quadrants. Dobbhoff present. Vital tube feedings infusing at goal of 70 mL per hour. Fecal management system present, positive diarrhea. - Genitourinary Genitourinary Comment(s): Fong present draining clear yellow urine. Output 60-90 ml/hr overnight. - Integumentary Integumentary Comment(s): Skin warm and dry. Sternal incision well approximated and covered with dry intact dressing. Left lower extremity EVH site well approximated. Stage II pressure ulcer to coccyx, covered by Optisol foam dressing. - Neurologic Neurologic Comment(s): Currently sedated on mechanical ventilation. - Musculoskeletal Musculoskeletal: Present: generalized weakness - Allied health notes Allied health notes reviewed: nursing - Labs CBC & Chem 7: 12/06/17 04:35 12/06/17 04:35 Labs: Abnormal Lab Results - Last 24 Hours (Table) 12/05/17 12/05/17 12/05/17 Range/Units 11:00 11:57 14:49 WBC (3.8-10.6) k/uL RBC (4.30-5.90) m/uL Hgb (13.0-17.5) gm/dL Hct (39.0-53.0) % RDW (11.5-15.5) % Plt Count (150-450) k/uL Neutrophils # (1.3-7.7) k/uL Lymphocytes # (1.0-4.8) k/uL ABG O2 Saturation (94-97) % Chloride (98-107) mmol/L BUN (9-20) mg/dL Creatinine (0.66-1.25) mg/dL Glucose (74-99) mg/dL POC Glucose (mg/dL) 184 H 177 H (75-99) mg/dL Calcium (8.4-10.2) mg/dL Ionized Calcium Leighann (4.5-5.3) mg/dL Total Bilirubin (0.2-1.3) mg/dL AST (17-59) U/L ALT (21-72) U/L Alkaline Phosphatase (38-126) U/L Total Protein (6.3-8.2) g/dL Albumin (3.5-5.0) g/dL Crossmatch See Detail 12/05/17 12/05/17 12/05/17 Range/Units 15:57 17:59 18:00 WBC 11.5 H (3.8-10.6) k/uL RBC 2.73 L (4.30-5.90) m/uL Hgb 8.2 L (13.0-17.5) gm/dL Hct 25.2 L (39.0-53.0) % RDW 18.3 H (11.5-15.5) % Plt Count 97 L (150-450) k/uL Neutrophils # (1.3-7.7) k/uL Lymphocytes # (1.0-4.8) k/uL ABG O2 Saturation (94-97) % Chloride (98-107) mmol/L BUN (9-20) mg/dL Creatinine (0.66-1.25) mg/dL Glucose (74-99) mg/dL POC Glucose (mg/dL) 166 H 173 H (75-99) mg/dL Calcium (8.4-10.2) mg/dL Ionized Calcium Leighann (4.5-5.3) mg/dL Total Bilirubin (0.2-1.3) mg/dL AST (17-59) U/L ALT (21-72) U/L Alkaline Phosphatase (38-126) U/L Total Protein (6.3-8.2) g/dL Albumin (3.5-5.0) g/dL Crossmatch 12/05/17 12/05/17 12/06/17 Range/Units 19:54 23:55 02:21 WBC (3.8-10.6) k/uL RBC (4.30-5.90) m/uL Hgb (13.0-17.5) gm/dL Hct (39.0-53.0) % RDW (11.5-15.5) % Plt Count (150-450) k/uL Neutrophils # (1.3-7.7) k/uL Lymphocytes # (1.0-4.8) k/uL ABG O2 Saturation (94-97) % Chloride (98-107) mmol/L BUN (9-20) mg/dL Creatinine (0.66-1.25) mg/dL Glucose (74-99) mg/dL POC Glucose (mg/dL) 171 H 173 H 170 H (75-99) mg/dL Calcium (8.4-10.2) mg/dL Ionized Calcium Leighann (4.5-5.3) mg/dL Total Bilirubin (0.2-1.3) mg/dL AST (17-59) U/L ALT (21-72) U/L Alkaline Phosphatase (38-126) U/L Total Protein (6.3-8.2) g/dL Albumin (3.5-5.0) g/dL Crossmatch 12/06/17 12/06/17 12/06/17 Range/Units 04:26 04:35 04:35 WBC (3.8-10.6) k/uL RBC 2.70 L (4.30-5.90) m/uL Hgb 7.8 L (13.0-17.5) gm/dL Hct 24.6 L (39.0-53.0) % RDW 18.3 H (11.5-15.5) % Plt Count 94 L (150-450) k/uL Neutrophils # 9.3 H (1.3-7.7) k/uL Lymphocytes # 0.4 L (1.0-4.8) k/uL ABG O2 Saturation (94-97) % Chloride 112 H (98-107) mmol/L BUN 105 H* (9-20) mg/dL Creatinine 1.62 H (0.66-1.25) mg/dL Glucose 131 H (74-99) mg/dL POC Glucose (mg/dL) 141 H (75-99) mg/dL Calcium 7.0 L (8.4-10.2) mg/dL Ionized Calcium Leighann 6.6 H* (4.5-5.3) mg/dL Total Bilirubin 2.7 H (0.2-1.3) mg/dL AST 129 H (17-59) U/L ALT 106 H (21-72) U/L Alkaline Phosphatase 227 H (38-126) U/L Total Protein 4.9 L (6.3-8.2) g/dL Albumin 1.8 L (3.5-5.0) g/dL Crossmatch 12/06/17 12/06/17 12/06/17 Range/Units 05:23 05:43 06:06 WBC (3.8-10.6) k/uL RBC (4.30-5.90) m/uL Hgb (13.0-17.5) gm/dL Hct (39.0-53.0) % RDW (11.5-15.5) % Plt Count (150-450) k/uL Neutrophils # (1.3-7.7) k/uL Lymphocytes # (1.0-4.8) k/uL ABG O2 Saturation 98.1 H (94-97) % Chloride (98-107) mmol/L BUN (9-20) mg/dL Creatinine (0.66-1.25) mg/dL Glucose (74-99) mg/dL POC Glucose (mg/dL) 151 H (75-99) mg/dL Calcium (8.4-10.2) mg/dL Ionized Calcium Leighann 6.3 H* (4.5-5.3) mg/dL Total Bilirubin (0.2-1.3) mg/dL AST (17-59) U/L ALT (21-72) U/L Alkaline Phosphatase (38-126) U/L Total Protein (6.3-8.2) g/dL Albumin (3.5-5.0) g/dL Crossmatch 12/06/17 12/06/17 Range/Units 08:52 10:26 WBC (3.8-10.6) k/uL RBC (4.30-5.90) m/uL Hgb (13.0-17.5) gm/dL Hct (39.0-53.0) % RDW (11.5-15.5) % Plt Count (150-450) k/uL Neutrophils # (1.3-7.7) k/uL Lymphocytes # (1.0-4.8) k/uL ABG O2 Saturation (94-97) % Chloride (98-107) mmol/L BUN (9-20) mg/dL Creatinine (0.66-1.25) mg/dL Glucose (74-99) mg/dL POC Glucose (mg/dL) 141 H 135 H (75-99) mg/dL Calcium (8.4-10.2) mg/dL Ionized Calcium Leighann (4.5-5.3) mg/dL Total Bilirubin (0.2-1.3) mg/dL AST (17-59) U/L ALT (21-72) U/L Alkaline Phosphatase (38-126) U/L Total Protein (6.3-8.2) g/dL Albumin (3.5-5.0) g/dL Crossmatch - Imaging and Cardiology Chest x-ray: report reviewed, image reviewed Assessment and Plan (1) Congestive heart failure with cardiomyopathy Current Visit: Yes Status: Chronic Code(s): I50.9 - HEART FAILURE, UNSPECIFIED; I42.9 - CARDIOMYOPATHY, UNSPECIFIED SNOMED Code(s): 50092578 (2) Ischemic cardiomyopathy Current Visit: Yes Status: Acute Code(s): I25.5 - ISCHEMIC CARDIOMYOPATHY SNOMED Code(s): 970545123 (3) Coronary artery disease Current Visit: Yes Status: Chronic Code(s): I25.10 - ATHSCL HEART DISEASE OF [place] CORONARY ARTERY W/O ANG PCTRS SNOMED Code(s): 08843318 (4) Diabetes mellitus Current Visit: Yes Status: Chronic Code(s): E11.9 - TYPE 2 DIABETES MELLITUS WITHOUT COMPLICATIONS SNOMED Code(s): 79297385 (5) Hyperlipidemia Current Visit: Yes Status: Chronic Code(s): E78.5 - HYPERLIPIDEMIA, UNSPECIFIED SNOMED Code(s): 91973891 (6) Mitral regurgitation Current Visit: Yes Status: Chronic Code(s): I34.0 - NONRHEUMATIC MITRAL ( VALVE) INSUFFICIENCY SNOMED Code(s): 34430340 (7) History of myocardial infarction Current Visit: No Status: Resolved Code(s): I25.2 - OLD MYOCARDIAL INFARCTION SNOMED Code(s): 277143344 (8) Tobacco dependence in remission Current Visit: No Status: Resolved Code(s): F17.201 - NICOTINE DEPENDENCE, UNSPECIFIED, IN REMISSION SNOMED Code(s): 922036850 Plan: 1. Continue low-dose aspirin, Plavix, statin, subcu heparin, beta michelle. 2. Continue amiodarone for A. fib prophylaxis. Digoxin 500 g IV push 1 dose ordered. 3. Decreased Primacor 0.1 mcg/kg/min. 4. Continue tube feedings per dietitian's recommendations. 5. D5W decreased to KVO. Free water flushes 300 mL every 6 hours per nephrology recommendations. 6. Wean levo as tolerated. Wean propofol as tolerated. 7. Will start Lasix 40 mg IV push twice a day. 8. Keep Fong catheter for strict accurate intake and output. Fong catheter changed 11/27/17. 9. Ventilator management, bronchodilators per pulmonology. 10. Will monitor daily labs and x-rays. 11. Antibiotics discontinued. 12. Pain control with current medication regimen. 13. GI/DVT prophylaxis. 14. Insulin drip/diabetic management per primary care service. 15. Continue FMS for liquid stools. 16. Continue full CODE STATUS. 17. Continued recommendations based on patient's progress. Time with Patient: Greater than 30
[2017-12-06] MEDS: PIPERACILLIN-TAZOBACTAM 3.375 GM in DEXTROSE/WATER 1 50ML.BAG IVPB SCH (11:56)
[2017-12-06 12:21] LABS: Glucose,Whole Blood 103 mg/dL (75-99)
[2017-12-06 14:11] LABS: Glucose,Whole Blood 136 mg/dL (75-99)
[2017-12-06] MEDS: INSULIN REGULAR 100 UNIT in SODIUM CHLORIDE 0.9% 100 ML IV SCH (14:12)
--- NOTE | 2017-12-06 14:26 | P.PN ---
Subjective Progress Note Date: 12/06/17 This is a pleasant gentleman patient of Dr. Spann, newly established to the office to evaluate shortness of breath, dyspnea on exertion, underwent cardiac cath and found to have ischemic cardiomyopathy with severe LV dysfunction, triple-vessel disease prior to bypass surgery, admitted for bypass surgery and valve repair. He has underlying history of diabetes mellitus type 2, hyperlipidemia, Cardiac cath performed 11/09/2017 shows left main coronary up was calcified, circumflex 95% stenosis in the ostial portion, LAD totally occluded just of to the origin of the large diagonal branch, diagonal branch from the percent stenosis, 70% stenosis in the PDA and PLV severe left ventricle systolic dysfunction and mitral regurgitation He is currently in ICU being prepped for CABG and mitral valve repair on 2017 and has intra-aortic balloon pump done through the right femoral artery. 11/17: Patient is having open-heart surgery today. 11/18: Patient is status post quadruple coronary artery bypass grafting using the left internal mammary artery to the left anterior descending coronary artery, a reverse greater saphenous vein graft from the aorta to the diagonal coronary artery, reverse greater saphenous vein graft from the aorta to the first obtuse marginal coronary artery, a reverse greater saphenous vein graft from the aorta to the posterior descending coronary artery and mitral valve repair. Patient remains in the intensive care unit intubated and on mechanical ventilation currently on CPAP for weaning parameters. He continues to have intra-aortic balloon pump in place which is plan to keep for 1 more day. He has a right, left and mediastinal chest tubes in place draining serosanguineous fluid. Urine output is 50-60 mL per hour. He is also on vasopressors. Hemoglobin A1c is 6.7. 8: Patient remains in the intensive care unit. He is currently off oxygen and pulse oxing. He continues to have all [address] Balloon pump was removed. Urine output has been adequate. White count is normal. Hemoglobin 7.3, INR 1.5, creatinine 0.93, blood sugars are running between 104 and 127. He has been afebrile. Heart rate running in the 90s. Blood pressure is stable with current vasopressors. Pulse ox is 9700% on room air. Patient denies having any chest pain. No abdominal pain. No nausea. 8/4. Patient examined the bedside in the ICU. Currently off oxygen. He is not making enough urine output. Creatinine function has worsened from 0.8-1.2. Hemoglobin 7 this morning status post transfusion 1 unit PRBC. Patient is denies any chest pain, shortness of breath is resting comfortably in the chair. He still continues to have [address] with a AARON drain. Blood sugar between 100-125. 11/21 patient examined bedside in the ICU. Brief episode of atrial fibrillation last night and one dose of IV amiodarone given followed by a maintenance dose Afinitor on 400 mg twice a day. Creatinine increased to 1.8 today. Patient is having minimal urine output with less than 10 mL per hour. Patient may benefit from IV fluids as he has minimal oral intake and has minimal urine output. One bag of 250 mg abdomen given today. Patient received 2 units of PRBCs C yesterday. No bowel movements for the past 3 days. Patient is passing gas. Continue with bowel regimen 11/22: Patient hasn't been noted to have increasing renal numbers with BUN of 66 and creatinine 2.2 and nephrology has been consult did. Patient is also noted to have low urine output and dark urine. He is not eating very much. Patient is more lethargic today. He denies any abdominal pain. Heart rate is controlled in a sinus rhythm. He is currently on oral amiodarone and Lopressor for atrial fibrillation. No anticoagulation due to thrombocytopenia. He is currently off label fed but continued on Primacor. 11/23: Patient has been seen by hematology for thrombocytopenia secondary to shock liver and consumption. Fibrinogen to be checked. Patient be transfused if platelet count is less than 50,000. One dose of vitamin K was given for INR of 1.8 yesterday. INR today is at 2.5, platelet count 41. BUN 89, creatinine 2.30, AST 1470, ALT 721. Urinalysis is turbid, leukoesterase moderate, RBCs greater than 182, wbc's 37, Patient has also been seen by nephrology for acute kidney injury, acute tubular necrosis, oliguria. Recommendations to transfuse if hemoglobin is falls below 7.4 fluid bolus was attempted without improvement and patient was started on Lasix drip. Patient is also continued on Primacor. Urine output has been 35-75 mL per hour. Heart rate has been elevated in the low 100s. Patient has received calcium chloride 1 dose yesterday and repeat today. He was started on Midodrine 10 mg 3 times daily yesterday. He is more lethargic today. He has failed a swallow eval and speech therapy added. Patient has been started on Zoloft for depression but patient appears to be more acute delirium. Patient has been on and off norepinephrine as his blood pressures dropping into the 80 systolic when he sleeps. 11/24: Lasix drip has been discontinued. Patient has received 4 A of bicarbonate is on a bicarb drip. Patient is on levofed and vasopressin along with Primacor. He has received vitamin K and fresh frozen plasma. Urine output is 15-20 mL per hour. Central line was placed today requiring of fresh frozen plasma and vitamin K. There is concern for need of hemodialysis. Patient has diarrhea after having constipation and fecal management system has been placed. His mental status continued to decline yesterday and by this morning he was re -intubated. White count is increasing to 18.5, hemoglobin 7.1, platelet count 48. INR is 2.9, BUN 103, creatinine 3.17, phosphorus 7.5, magnesium 2.7, AST 1301, ALT 623. Total bilirubin is 5.8. Cortisol level was greater than 123. Patient will be resumed back on insulin drip due to hyperglycemia. Echocardiogram reveals EF of 40-45%, mild concentric left ventricular hypertrophy, and only mild gently dilated 34-39, moderate mitral stenosis, mild tricuspid regurgitation, mild pulmonary hypertension 11/25: Patient remains intubated and on mechanical ventilation. We resumed insulin drip yesterday. He remains on Levophed and milrinone. Renal function remains poor. 11/26: Patient remains in the intensive care unit, intubated and on mechanical ventilation. Patient has had good urine output. He remains on vasopressin, norepinephrine, insulin drip. BUN is 114 and creatinine 2.2, phosphorus 4.5, white count 14.6. Hemoglobin is 7. There are no orders for transfusion. INR is 1.7. Liver function tests are improving. Sputum culture showing gram- negative bacilli. 11/27: Patient continued to be intubated does not follow commands. Patient has developed atrial fibrillation and heart rate is currently controlled. Patient continued to require levo fed infusion at 6 mics per Per minute 11/28:Patient continued to be distended does not follow commands. Patient has developed atrial fibrillation and heart rate is currently controlled. Patient was following commands by squeezing his hand this morning but currently is off sedation but still not following commands patient is moving his head to the right than to the left spontaneously and currently still on full vent support 11/29: Patient remains intubated and on mechanical ventilation. He is currently being CPAP. He has been off vasopressors since over the weekend. He is also off midodrine. Patient started on hydralazine. He is more alert and able to squeeze his hands with direction. Left is noted to be stronger than the right. He has continued on Primacor and insulin. We have ordered one dose of Ferrlecit and he is scheduled for transfusion 1 unit of packed RBCs for hemoglobin of 6.9. Liver function tests are improving. BUN is 131 and creatinine 1.6. 11/30: Patient remains in intensive care unit intubated and on mechanical ventilation. He continues to be off vasopressors. He remains on Primacor. Urine output has been between 45 and 150 mL per hour. BUN 131 and creatinine 1.6. White count is down to 12.8, hemoglobin is now 8 after 1 unit of packed RBCs and he received Ferrlecit yesterday. White blood count is recovering now at 136. Liver function tests are all improving as well. Overall, patient is showing slow gradual improvement. Another dose of Ferrlecit has been ordered by nephrology. 12/01: Patient has been successfully extubated yesterday and now on BiPAP. Patient is currently on Precedex. He was placed on low-dose label fed and is currently being weaned. Central line and chest tube on the right to be removed today. White count is 13.7, hemoglobin 8.1, BUN 126 and creatinine 1.6. Capillary blood glucose running between 132 and 152. Her function tests continue to improve. 12/02: Patient remains in the intensive care unit. A Dobbhoff was attempted yesterday but was unsuccessful and to be retry today. Capillary blood glucose running between 149 and 164. White count is down to 12.4, hemoglobin is at 7.8. Renal function shows a BUN of 118 and creatinine 1.6. Liver function tests continue to improve slowly but are not back to normal range. 12/03: Patient remains in intensive care unit. Attempted Dobbhoff tube was attempted by STEVEN yesterday but second attempt was also unsuccessful and patient required reintubation for acute respiratory failure. Patient is on Primacor and propofol, low dose norepinephrine. Asians does not wish for tracheostomy and PEG tube as those were the patient's wishes. Patient has had diarrhea starting a urine specimen to be sent for C. difficile toxin. 12/04: Patient remains in intensive care unit, he continues to be on the ventilator with an before meals mode FiO2 50% appears extremely weak, he was seen along with the cardiothoracic surgery service, we will continue to monitor the patient very closely prognosis very guarded. 12/05: Patient is sedated with propofol his currently on the ventilator continues to be on milrinone and Midrin along with levo, the plan is for the patient to have the trach and PEG this discussion was entertained with the by the cardiothoracic surgery service and the plan is still not okayed as the patient did not want to go for this. 12/06: Objective - Vital Signs Vital signs: Vital Signs Temp 99 F 12/06/17 04:00 Pulse 139 H 12/06/17 08:55 Resp 28 H 12/06/17 07:00 BP 108/60 12/06/17 07:00 Pulse Ox 100 12/06/17 07:00 Intake & Output 12/05/17 12/06/17 12/06/17 18:59 06:59 18:59 Intake Total 4046.762 3927.248 249.270 Output Total 853 1415 65 Balance 3193.762 2512.248 184.270 Weight 85.4 kg 89.4 kg Intake: IV 110.6 979.1 82.6 D5w with KCl 20 Meq/l 1, 825 75 000 ml @ 75 mls/hr IV . [id number] JANNA Rx#:[id number] Milrinone-D5w Pmx 20 mg 4.6 50.6 4.6 In Dextrose/Water 1 100ml .bag @ 0.2 MCG/KG/MIN 4. 66 mls/hr IV .[id number] JANNA Rx#:[id number] NS 20 5 Piperacillin-Tazobactam 3 50.0 62.5 .375 gm In Dextrose/Water 1 50ml.bag @ 12.5 mls/hr IVPB Q8HR JANNA Rx#: [id number] Pressure Bags 36 36 3 Intake, IV Titration 1026.162 328.148 96.670 Amount D5w with KCl 20 Meq/l 1, 785 75 000 ml @ 75 mls/hr IV . [id number] JANNA Rx#:[id number] Insulin Regular 100 unit 27.882 52.157 In Sodium Chloride 0.9% 100 ml @ Per Protocol IV .Q0M JANNA Rx#:[id number] Milrinone-D5w Pmx 20 mg 85.977 In Dextrose/Water 1 100ml .bag @ 0.2 MCG/KG/MIN 4. 66 mls/hr IV .[id number] JANNA Rx#:[id number] Norepinephrine 16 mg In 27.303 15.487 39.564 Dextrose 5% in Water 250 ml @ Titrate IV .Q0M JANNA Rx#:[id number] Propofol 1,000 mg In 100 185.504 57.106 Empty Bag 1 bag @ Titrate IV .Q0M JANNA Rx#: [id number] Tube Feeding 1050 1120 70 Blood Product 310 Rc As-1 Unit 310 [id number] Other 1550 1500 Rc As-1 Unit 50 [id number] Output: Urine 853 1015 65 Stool 400 Other: Voiding Method Indwelling Catheter Indwelling Catheter ABP, PAP, CO, CI - Last Documented Arterial Blood Pressure 120/44 Pulmonary Artery Pressure 40/15 Cardiac Output 5.0 Cardiac Index 2.7 - Exam General appearance: average body habitus, cooperative, no acute distress - EENT Eyes: anicteric sclerae, EOMI, PERRLA, dentition normal, normal appearance no vision in the left eye blurring of the cornea ENT: NA/AT, normal oropharynx, intubated and on mechanical ventilation - Respiratory Respiratory: bilateral: Scattered rhonchi, negative: diminished, dullness, rales , wheezing, - Cardiovascular Rhythm: Regularly irregular Heart sounds: normal: S1, S2 Abnormal Heart Sounds: no systolic murmur, no diastolic murmur, no rub, no S3 Gallop, no S4 Gallop, no click, no other - Gastrointestinal General gastrointestinal: normal bowel sounds, soft, Fong draining clear dark urine - Integumentary Integumentary: normal, normal turgor - Neurologic Neurologic: Patient sedated - Musculoskeletal Musculoskeletal: gait not assessed, patient sedated - Labs CBC & Chem 7: 12/06/17 04:35 12/06/17 04:35 Labs: Abnormal Lab Results - Last 24 Hours (Table) 12/05/17 12/05/17 12/05/17 Range/Units 10:59 11:00 11:57 WBC (3.8-10.6) k/uL RBC (4.30-5.90) m/uL Hgb (13.0-17.5) gm/dL Hct (39.0-53.0) % RDW (11.5-15.5) % Plt Count (150-450) k/uL Neutrophils # (1.3-7.7) k/uL Lymphocytes # (1.0-4.8) k/uL ABG O2 Saturation (94-97) % Chloride (98-107) mmol/L BUN (9-20) mg/dL Creatinine (0.66-1.25) mg/dL Glucose (74-99) mg/dL POC Glucose (mg/dL) 183 H 184 H (75-99) mg/dL Calcium (8.4-10.2) mg/dL Ionized Calcium Leighann (4.5-5.3) mg/dL Total Bilirubin (0.2-1.3) mg/dL AST (17-59) U/L ALT (21-72) U/L Alkaline Phosphatase (38-126) U/L Total Protein (6.3-8.2) g/dL Albumin (3.5-5.0) g/dL Crossmatch See Detail 12/05/17 12/05/17 12/05/17 Range/Units 14:49 15:57 17:59 WBC (3.8-10.6) k/uL RBC (4.30-5.90) m/uL Hgb (13.0-17.5) gm/dL Hct (39.0-53.0) % RDW (11.5-15.5) % Plt Count (150-450) k/uL Neutrophils # (1.3-7.7) k/uL Lymphocytes # (1.0-4.8) k/uL ABG O2 Saturation (94-97) % Chloride (98-107) mmol/L BUN (9-20) mg/dL Creatinine (0.66-1.25) mg/dL Glucose (74-99) mg/dL POC Glucose (mg/dL) 177 H 166 H 173 H (75-99) mg/dL Calcium (8.4-10.2) mg/dL Ionized Calcium Leighann (4.5-5.3) mg/dL Total Bilirubin (0.2-1.3) mg/dL AST (17-59) U/L ALT (21-72) U/L Alkaline Phosphatase (38-126) U/L Total Protein (6.3-8.2) g/dL Albumin (3.5-5.0) g/dL Crossmatch 12/05/17 12/05/17 12/05/17 Range/Units 18:00 19:54 23:55 WBC 11.5 H (3.8-10.6) k/uL RBC 2.73 L (4.30-5.90) m/uL Hgb 8.2 L (13.0-17.5) gm/dL Hct 25.2 L (39.0-53.0) % RDW 18.3 H (11.5-15.5) % Plt Count 97 L (150-450) k/uL Neutrophils # (1.3-7.7) k/uL Lymphocytes # (1.0-4.8) k/uL ABG O2 Saturation (94-97) % Chloride (98-107) mmol/L BUN (9-20) mg/dL Creatinine (0.66-1.25) mg/dL Glucose (74-99) mg/dL POC Glucose (mg/dL) 171 H 173 H (75-99) mg/dL Calcium (8.4-10.2) mg/dL Ionized Calcium Leighann (4.5-5.3) mg/dL Total Bilirubin (0.2-1.3) mg/dL AST (17-59) U/L ALT (21-72) U/L Alkaline Phosphatase (38-126) U/L Total Protein (6.3-8.2) g/dL Albumin (3.5-5.0) g/dL Crossmatch 12/06/17 12/06/17 12/06/17 Range/Units 02:21 04:26 04:35 WBC (3.8-10.6) k/uL RBC (4.30-5.90) m/uL Hgb (13.0-17.5) gm/dL Hct (39.0-53.0) % RDW (11.5-15.5) % Plt Count (150-450) k/uL Neutrophils # (1.3-7.7) k/uL Lymphocytes # (1.0-4.8) k/uL ABG O2 Saturation (94-97) % Chloride 112 H (98-107) mmol/L BUN 105 H* (9-20) mg/dL Creatinine 1.62 H (0.66-1.25) mg/dL Glucose 131 H (74-99) mg/dL POC Glucose (mg/dL) 170 H 141 H (75-99) mg/dL Calcium 7.0 L (8.4-10.2) mg/dL Ionized Calcium Leighann 6.6 H* (4.5-5.3) mg/dL Total Bilirubin 2.7 H (0.2-1.3) mg/dL AST 129 H (17-59) U/L ALT 106 H (21-72) U/L Alkaline Phosphatase 227 H (38-126) U/L Total Protein 4.9 L (6.3-8.2) g/dL Albumin 1.8 L (3.5-5.0) g/dL Crossmatch 12/06/17 12/06/17 12/06/17 Range/Units 04:35 05:23 05:43 WBC (3.8-10.6) k/uL RBC 2.70 L (4.30-5.90) m/uL Hgb 7.8 L (13.0-17.5) gm/dL Hct 24.6 L (39.0-53.0) % RDW 18.3 H (11.5-15.5) % Plt Count 94 L (150-450) k/uL Neutrophils # 9.3 H (1.3-7.7) k/uL Lymphocytes # 0.4 L (1.0-4.8) k/uL ABG O2 Saturation 98.1 H (94-97) % Chloride (98-107) mmol/L BUN (9-20) mg/dL Creatinine (0.66-1.25) mg/dL Glucose (74-99) mg/dL POC Glucose (mg/dL) (75-99) mg/dL Calcium (8.4-10.2) mg/dL Ionized Calcium Leighann 6.3 H* (4.5-5.3) mg/dL Total Bilirubin (0.2-1.3) mg/dL AST (17-59) U/L ALT (21-72) U/L Alkaline Phosphatase (38-126) U/L Total Protein (6.3-8.2) g/dL Albumin (3.5-5.0) g/dL Crossmatch 12/06/17 12/06/17 12/06/17 Range/Units 06:06 08:52 10:26 WBC (3.8-10.6) k/uL RBC (4.30-5.90) m/uL Hgb (13.0-17.5) gm/dL Hct (39.0-53.0) % RDW (11.5-15.5) % Plt Count (150-450) k/uL Neutrophils # (1.3-7.7) k/uL Lymphocytes # (1.0-4.8) k/uL ABG O2 Saturation (94-97) % Chloride (98-107) mmol/L BUN (9-20) mg/dL Creatinine (0.66-1.25) mg/dL Glucose (74-99) mg/dL POC Glucose (mg/dL) 151 H 141 H 135 H (75-99) mg/dL Calcium (8.4-10.2) mg/dL Ionized Calcium Leighann (4.5-5.3) mg/dL Total Bilirubin (0.2-1.3) mg/dL AST (17-59) U/L ALT (21-72) U/L Alkaline Phosphatase (38-126) U/L Total Protein (6.3-8.2) g/dL Albumin (3.5-5.0) g/dL Crossmatch Assessment and Plan Plan: (1) Coronary artery disease and moderate mitral valve regurgitation Triple vessel disease noted on cardiac cath agent status post CABG and mitral valve repair on all 11/17/2017. Continue on aspirin, metoprolol. ICU dry cleaning counter clerk Dr. Paul/Delonte on consult. Continue current management per cardio vascular surgery team (2) Ischemic cardiomyopathy Has impaired ejection fraction of 38%, along with congestive heart failure. (3) Congestive heart failure with cardiomyopathy Acute on chronic systolic and diastolic heart failure (4) Hyperlipidemia Patient currently not on statins (5) GI prophylaxis (6) DVT prophylaxis (7) Steal syndrome, subclavian Carotid Dopplers 11/10/2017 shows no carotid stenosis however there is to and fro flow within the right vertebral artery could reflect manifestation of subclavian steal physiology prior to with continuous flow reversal. Currently asymptomatic continue to monitor (8) Pulmonary hypertension PILAR on 11/10/2017, moderate pulmonary hypertension also shows intact atrial septum with no evidence of [id number] shunt physiology, unable to locate pressures for right ventricular systolic 9. Thrombocytopenia secondary to consumption. Numbers improved and patient has been resumed back on aspirin, Plavix. Consult with oncology appreciated. Recommendations for platelet transfusion if less than 50,000. 10. Anemia, secondary to a combination of acute blood loss and renal failure with drop in hemoglobin from 10-6.5. Patient is status post multiple blood products. Ferrlecit infusion. 11. Acute kidney injury, acute tubular necrosis, oliguric secondary to hypotension, hypoperfusion. Consult with nephrology appreciated. Off Lasix drip. Status post IV sodium bicarb. 12. Post op atrial fibrillation, expected outcome of surgery. Patient has been on amiodarone and Lopressor. 13. Liver transaminitis and coagulopathy secondary to shock liver oncology consult appreciated. Continue to monitor closely. 14. Depression, situational. Zoloft was subsequently discontinued. 15. Acute delirium secondary to acute illness. 16. Hyperglycemia without diabetes. Patient resumed on insulin drip. Hemoglobin A1c is 6.7. 17. Cardiorenal syndrome and cardiogenic shock requiring IV vasopressors. 18. Diarrhea with possible acute GI bleed with acute blood loss anemia. Fecal management system was required. Stool for occult blood is positive. C diff toxin is negative on first specimen. C. difficile toxin to be rechecked. Patient may need fecal management system replaced. 19. Acute hypoxic respiratory failure requiring reintubation and mechanical ventilation. Prognosis guarded. Discharge plan: To be determined Impression and plan of care have been directed as dictated by the signing physician. Amy Renteria nurse practitioner acting as scribe for signing physician.
--- NOTE | 2017-12-06 15:11 | P.PN ---
Subjective Progress Note Date: 12/06/17 On 12/06/2017 I'm seeing this patient for a follow-up. This patient is post coronary artery bypass surgery and mitral valve repair and left 8 she'll appendage clipping and the patient is postop day #20. He is comorbidities include coronary artery disease, severe ischemic cardiomyopathy preoperatively, moderate degree of mitral regurgitation. He also has diabetes mellitus, hypertension and hyperlipidemia and he started off with a FEV1 of 43% of predicted on his preoperative spirometry On today's evaluation, the patient is sedated on Diprivan and is calm and comfortable. I noted that over the past 1 week the patient has been given fluids aggressively and he obviously shows signs of fluid overload. Continued lower extremity edema bilaterally and he also has developed testicular edema. He has upper extremity edema in general. The surgeons evaluated the patient. They stopped IV fluids and start the patient on diuretics. Follow pulmonary standpoint, the patient has shown some pulmonary vessel congestion and small effusion left lung base. ET tube is in a good location. The patient remains on assist control mode of ventilation at the rate of 20 with tidal volume of 400 with an FiO2 of 50% and a PEEP of 5. His blood gases shows a pH of 7.4 with a pCO2 of 36 and pO2 of 88 and this was done and FiO2 of 50%. He has grown Klebsiella in his sputum, and we we were not concerned of any pneumonia. The patient completed the course of IV Zosyn I think is central. Day antibiotic specially the patient is still having diarrhea and FMS is still in place. Chest tubes have been removed. Function is stable at creatinine of 1.6. Liver function tests improved yet not completely normalized. He remains in atrial fibrillation. He continues to be tachycardic and he remains on oral amiodarone and he was also given digoxin for rate control by cardiothoracic surgery. Malarone is running at 0.2 mics and the patient is also on norepinephrine infusion for blood pressure control. The Dobbhoff is in place and the patient is receiving enteral feeding for nutritional support. Hemoglobin from today is up to 7.8 after receiving a unit of packed RBC yesterday. The patient is afebrile. Platelet counts are stable. He arouses off sedation. Urine output is order of 60-90 mL an hour. Objective - Vital Signs Vital signs: Vital Signs Temp 99.2 F 12/06/17 12:00 Pulse 125 H 12/06/17 14:00 Resp 28 H 12/06/17 14:00 BP 91/52 12/06/17 14:00 Pulse Ox 100 12/06/17 14:00 Intake & Output 12/05/17 12/06/17 12/06/17 18:59 06:59 18:59 Intake Total 4046.762 3927.248 1891.836 Output Total 853 1415 365 Balance 3193.762 2512.248 1526.836 Weight 85.4 kg 89.4 kg Intake: IV 110.6 979.1 243.6 D5w with KCl 20 Meq/l 1, 825 215 000 ml @ 20 mls/hr IV . Q24H JANNA Rx#:[id number] Milrinone-D5w Pmx 20 mg 4.6 50.6 4.6 In Dextrose/Water 1 100ml .bag @ 0.1 MCG/KG/MIN 2. 33 mls/hr IV .Q24H JANNA Rx #:[id number] NS 20 5 Piperacillin-Tazobactam 3 50.0 62.5 .375 gm In Dextrose/Water 1 50ml.bag @ 12.5 mls/hr IVPB Q8HR JANNA Rx#: [id number] Pressure Bags 36 36 24 Intake, IV Titration 1026.162 328.148 228.236 Amount D5w with KCl 20 Meq/l 1, 785 75 000 ml @ 20 mls/hr IV . Q24H JANNA Rx#:[id number] Insulin Regular 100 unit 27.882 52.157 15.44 In Sodium Chloride 0.9% 100 ml @ Per Protocol IV .Q0M JANNA Rx#:[id number] Milrinone-D5w Pmx 20 mg 85.977 95.491 In Dextrose/Water 1 100ml .bag @ 0.1 MCG/KG/MIN 2. 33 mls/hr IV .Q24H JANNA Rx #:[id number] Norepinephrine 16 mg In 27.303 15.487 60.199 Dextrose 5% in Water 250 ml @ Titrate IV .Q0M JANNA Rx#:[id number] Propofol 1,000 mg In 100 185.504 57.106 Empty Bag 1 bag @ Titrate IV .Q0M JANNA Rx#: [id number] Tube Feeding 1050 1120 560 Blood Product 310 Rc As-1 Unit 310 [id number] Other 1550 1500 860 Rc As-1 Unit 50 [id number] Output: Urine 853 1015 365 Stool 400 Other: Voiding Method Indwelling Catheter Indwelling Catheter Indwelling Catheter ABP, PAP, CO, CI - Last Documented Arterial Blood Pressure 103/36 Pulmonary Artery Pressure 40/15 Cardiac Output 5.0 Cardiac Index 2.7 - Exam - Constitutional General appearance: Present: no acute distress - Respiratory Details: Lungs sounds diminished bilaterally with scattered rhonchi. Respirations even, nonlabored on mechanical ventilation. Current settings assist control mode, FiO2 50%, tidal volume 450, respiratory rate 22, PEEP 5. ABGs this morning 7.4/ 36/88/22/98%/-2.6. 8.0 ET tube present, 24 at the lip. - Cardiovascular Details: S1, S2 present. Tachy, irregular rate and rhythm, A. fib RVR on telemetry. Sternum stable. A/V epicardial pacemaker wires present, grounded. Palpable peripheral pulses bilaterally. Bilateral lower extremity, scrotal edema present. Right radial arterial line, left brachial PICC line present. Levo being titrated off, Primacor decreased to 0.1 mcg/kg/min. Heart hugger, antiembolism stockings, SCDs present. - Gastrointestinal Gastrointestinal Comment(s): Abdomen soft, nontender, nondistended. Active bowel sounds present 4 quadrants. Dobbhoff present. Vital tube feedings infusing at goal of 70 mL per hour. Fecal management system present, positive diarrhea. - Genitourinary Genitourinary Comment(s): Fong present draining clear yellow urine. Output 60-90 ml/hr overnight. - Integumentary Integumentary Comment(s): Skin warm and dry. Sternal incision well approximated and covered with dry intact dressing. Left lower extremity EVH site well approximated. Stage II pressure ulcer to coccyx, covered by Optisol foam dressing. - Neurologic Neurologic Comment(s): Currently sedated on mechanical ventilation. - Musculoskeletal Musculoskeletal: Present: generalized weakness - Allied health notes Allied health notes reviewed: nursing - Labs CBC & Chem 7: 12/06/17 04:35 12/06/17 04:35 Labs: Abnormal Lab Results - Last 24 Hours (Table) 12/05/17 12/05/17 12/05/17 Range/Units 11:00 15:57 17:59 WBC (3.8-10.6) k/uL RBC (4.30-5.90) m/uL Hgb (13.0-17.5) gm/dL Hct (39.0-53.0) % RDW (11.5-15.5) % Plt Count (150-450) k/uL Neutrophils # (1.3-7.7) k/uL Lymphocytes # (1.0-4.8) k/uL ABG O2 Saturation (94-97) % Chloride (98-107) mmol/L BUN (9-20) mg/dL Creatinine (0.66-1.25) mg/dL Glucose (74-99) mg/dL POC Glucose (mg/dL) 166 H 173 H (75-99) mg/dL Calcium (8.4-10.2) mg/dL Ionized Calcium Leighann (4.5-5.3) mg/dL Total Bilirubin (0.2-1.3) mg/dL AST (17-59) U/L ALT (21-72) U/L Alkaline Phosphatase (38-126) U/L Total Protein (6.3-8.2) g/dL Albumin (3.5-5.0) g/dL Crossmatch See Detail 12/05/17 12/05/17 12/05/17 Range/Units 18:00 19:54 23:55 WBC 11.5 H (3.8-10.6) k/uL RBC 2.73 L (4.30-5.90) m/uL Hgb 8.2 L (13.0-17.5) gm/dL Hct 25.2 L (39.0-53.0) % RDW 18.3 H (11.5-15.5) % Plt Count 97 L (150-450) k/uL Neutrophils # (1.3-7.7) k/uL Lymphocytes # (1.0-4.8) k/uL ABG O2 Saturation (94-97) % Chloride (98-107) mmol/L BUN (9-20) mg/dL Creatinine (0.66-1.25) mg/dL Glucose (74-99) mg/dL POC Glucose (mg/dL) 171 H 173 H (75-99) mg/dL Calcium (8.4-10.2) mg/dL Ionized Calcium Leighann (4.5-5.3) mg/dL Total Bilirubin (0.2-1.3) mg/dL AST (17-59) U/L ALT (21-72) U/L Alkaline Phosphatase (38-126) U/L Total Protein (6.3-8.2) g/dL Albumin (3.5-5.0) g/dL Crossmatch 12/06/17 12/06/17 12/06/17 Range/Units 02:21 04:26 04:35 WBC (3.8-10.6) k/uL RBC (4.30-5.90) m/uL Hgb (13.0-17.5) gm/dL Hct (39.0-53.0) % RDW (11.5-15.5) % Plt Count (150-450) k/uL Neutrophils # (1.3-7.7) k/uL Lymphocytes # (1.0-4.8) k/uL ABG O2 Saturation (94-97) % Chloride 112 H (98-107) mmol/L BUN 105 H* (9-20) mg/dL Creatinine 1.62 H (0.66-1.25) mg/dL Glucose 131 H (74-99) mg/dL POC Glucose (mg/dL) 170 H 141 H (75-99) mg/dL Calcium 7.0 L (8.4-10.2) mg/dL Ionized Calcium Leighann 6.6 H* (4.5-5.3) mg/dL Total Bilirubin 2.7 H (0.2-1.3) mg/dL AST 129 H (17-59) U/L ALT 106 H (21-72) U/L Alkaline Phosphatase 227 H (38-126) U/L Total Protein 4.9 L (6.3-8.2) g/dL Albumin 1.8 L (3.5-5.0) g/dL Crossmatch 12/06/17 12/06/17 12/06/17 Range/Units 04:35 05:23 05:43 WBC (3.8-10.6) k/uL RBC 2.70 L (4.30-5.90) m/uL Hgb 7.8 L (13.0-17.5) gm/dL Hct 24.6 L (39.0-53.0) % RDW 18.3 H (11.5-15.5) % Plt Count 94 L (150-450) k/uL Neutrophils # 9.3 H (1.3-7.7) k/uL Lymphocytes # 0.4 L (1.0-4.8) k/uL ABG O2 Saturation 98.1 H (94-97) % Chloride (98-107) mmol/L BUN (9-20) mg/dL Creatinine (0.66-1.25) mg/dL Glucose (74-99) mg/dL POC Glucose (mg/dL) (75-99) mg/dL Calcium (8.4-10.2) mg/dL Ionized Calcium Leighann 6.3 H* (4.5-5.3) mg/dL Total Bilirubin (0.2-1.3) mg/dL AST (17-59) U/L ALT (21-72) U/L Alkaline Phosphatase (38-126) U/L Total Protein (6.3-8.2) g/dL Albumin (3.5-5.0) g/dL Crossmatch 12/06/17 12/06/17 12/06/17 Range/Units 06:06 08:52 10:26 WBC (3.8-10.6) k/uL RBC (4.30-5.90) m/uL Hgb (13.0-17.5) gm/dL Hct (39.0-53.0) % RDW (11.5-15.5) % Plt Count (150-450) k/uL Neutrophils # (1.3-7.7) k/uL Lymphocytes # (1.0-4.8) k/uL ABG O2 Saturation (94-97) % Chloride (98-107) mmol/L BUN (9-20) mg/dL Creatinine (0.66-1.25) mg/dL Glucose (74-99) mg/dL POC Glucose (mg/dL) 151 H 141 H 135 H (75-99) mg/dL Calcium (8.4-10.2) mg/dL Ionized Calcium Elighann (4.5-5.3) mg/dL Total Bilirubin (0.2-1.3) mg/dL AST (17-59) U/L ALT (21-72) U/L Alkaline Phosphatase (38-126) U/L Total Protein (6.3-8.2) g/dL Albumin (3.5-5.0) g/dL Crossmatch 12/06/17 12/06/17 Range/Units 12:19 14:10 WBC (3.8-10.6) k/uL RBC (4.30-5.90) m/uL Hgb (13.0-17.5) gm/dL Hct (39.0-53.0) % RDW (11.5-15.5) % Plt Count (150-450) k/uL Neutrophils # (1.3-7.7) k/uL Lymphocytes # (1.0-4.8) k/uL ABG O2 Saturation (94-97) % Chloride (98-107) mmol/L BUN (9-20) mg/dL Creatinine (0.66-1.25) mg/dL Glucose (74-99) mg/dL POC Glucose (mg/dL) 103 H 136 H (75-99) mg/dL Calcium (8.4-10.2) mg/dL Ionized Calcium Leighann (4.5-5.3) mg/dL Total Bilirubin (0.2-1.3) mg/dL AST (17-59) U/L ALT (21-72) U/L Alkaline Phosphatase (38-126) U/L Total Protein (6.3-8.2) g/dL Albumin (3.5-5.0) g/dL Crossmatch Assessment and Plan Plan: #1. Symptomatic multivessel coronary artery disease, with total occlusion of the LAD, 70% stenosis of the diagonal artery, 95% stenosis of the circumflex, diffuse disease in the RCA with 70% stenosis at the bifurcation of the PDA and PLV. Patient is scheduled for coronary artery bypass grafting and mitral valve repair on 11/17/2017. The patient is postop day #20 #2. Mitral valve regurgitation, post mitral valve repair, patient postop day # 20 #3 shock with ongoing difficulties with hypotension. This is predominantly of a cardiogenic in nature. The patient developed multisystem organ injury including shock liver, and acute kidney injury from which is improving. The patient had to be intubated twice during the course of his postoperative management. ICU. Currently is on 0.2 mics of milrinone and a shock state has essentially recovered and the patient's liver functions improved and adrenal function is also improved. Currently showing signs of significant fluid overload as the patient has been aggressively resuscitated IV fluids. #4 Ischemic cardiomyopathy, with severe left ventricular systolic dysfunction, with significantly impaired preoperative physical ejection fraction, subsequent echocardiogram postop on a ventilator thousand and 18 showed improvement in ejection fraction of 40-45%, the right ventricular was dilated [id number] and the left atrium was moderately dilated also. Her pressures are moderately elevated. #5. Diabetes mellitus type 2, the patient is on insulin drip #6. Remote history of nicotine dependence, patient quit 40 years ago, carries 5 -pack-year smoking history #7. Postoperative anemia and expected outcome of cardiothoracic surgery and prolonged ICU stay and the patient is requiring on and off packed RBC transfusion. #8. Diabetic retinopathy #9 acute hepatocellular injury/shock liver secondary to above, improving #10 acute kidney injury on top of chronic renal failure, improving #11 ischemic colitis with secondary diarrhea #12 thrombocytopenia, improving, and expected outcome of cardiac surgery #13 chronic atrial fibrillation him a still on amiodarone Plan The patient will be started on diuretics again with Lasix 40 mg every 12 hours. Continue milrinone for cardiac index/output of augmentation. Monitor hemodynamics. Monitor the output. Continue vent support. Stop IV Zosyn. Discussed with the the possibility of PEG and trach at a later stage. Continue tube feeds. Management of atrial fibrillation per cardiology. The patient is on a combination of metoprolol and amiodarone. Daily sedation holidays. Prognosis guarded I will continue to follow make further recommendations based on his progress. Time with Patient: Greater than 30
[2017-12-06] MEDS ORDERED: LOPERAMIDE 2 MG CAP PO STA (16:28)
[2017-12-06 16:32] LABS: Glucose,Whole Blood 126 mg/dL (75-99)
[2017-12-06 18:30] LABS: Glucose,Whole Blood 127 mg/dL (75-99)
--- NOTE | 2017-12-06 19:44 | P.PN ---
Subjective Progress Note Date: 12/06/17 72-year-old male presented to Hospital now 17 days ago with significant increase in shortness of breath, dyspnea on exertion as well as significant mitral valve regurgitation.. There was evidence of three-vessel coronary disease with severe ischemic cardiomyopathy with the patient on 2017 was taken to the operating room for the coronary artery bypass grafting procedure, and mitral valve repair. Atrial appendage was also repaired. The patient has had a complex hospital stay with extubation and reintubation now on 2 events. This had persistent respiratory failure. There was difficulties with feeding, the family does not want tracheostomy and PEG tube placement. Gastroenterology was consulted and they failed placement of Dobbhoff tube, per thoracic surgery was able to place the tube for nutritional support. Infectious diseases consultation is requested regarding the Klebsiella oxytoca isolated from his sputum several days prior, is being treated with piperacillin tazobactam. The patient has persistent respiratory failure requiring mechanical ventilation as well as significant leukocytosis that has worsened over the last day. Patient also on the 16 and a low-grade fever which increased the concerns. At this time. Information will be coming from the chart the patient is intubated and unable to communicate with the observer. The patient had attempts for feeding tube placement developed respiratory compromise and did require reintubation and mechanical ventilation 12/06/2017 patient remains intubated sedated and mechanically ventilated. Staff relates he continues to have significant amounts of diarrhea. C. diff is negative on 3 events. Fecal management system is in place. His extensive edema continues, there is extensive scrotal edema with some breakdown of the skin. Objective - Vital Signs Vital signs: Vital Signs Temp 98.4 F 12/06/17 16:00 Pulse 133 H 12/06/17 19:00 Resp 37 H 12/06/17 19:00 BP 116/61 12/06/17 19:00 Pulse Ox 99 12/06/17 18:30 Intake & Output 12/06/17 12/06/17 12/07/17 06:59 18:59 06:59 Intake Total 3927.248 1946.490 Output Total 1415 365 Balance 2512.248 1581.490 Weight 89.4 kg Intake: IV 979.1 243.6 D5w with KCl 20 Meq/l 1, 825 215 000 ml @ 20 mls/hr IV . Q24H [facility], [facility] Rx#:[id number] Milrinone-D5w Pmx 20 mg 50.6 4.6 In Dextrose/Water 1 100ml .bag @ 0.1 MCG/KG/MIN 2. 33 mls/hr IV .Q24H [facility] Rx #:[id number] NS 5 Piperacillin-Tazobactam 3 62.5 .375 gm In Dextrose/Water 1 50ml.bag @ 12.5 mls/hr IVPB Q8HR [facility] Rx#: [id number] Pressure Bags 36 24 Intake, IV Titration 328.148 282.890 Amount D5w with KCl 20 Meq/l 1, 75 000 ml @ 20 mls/hr IV . Q24H [facility] Rx#:[id number] Insulin Regular 100 unit 52.157 15.44 In Sodium Chloride 0.9% 100 ml @ Per Protocol IV .Q0M [facility] Rx#:[id number] Milrinone-D5w Pmx 20 mg 95.491 In Dextrose/Water 1 100ml .bag @ 0.1 MCG/KG/MIN 2. 33 mls/hr IV .Q24H [facility] Rx #:[id number] Norepinephrine 16 mg In 15.487 71.959 Dextrose 5% in Water 250 ml @ Titrate IV .Q0M [facility] Rx#:[id number] Propofol 1,000 mg In 185.504 100.000 Empty Bag 1 bag @ Titrate IV .Q0M [facility] Rx#: [id number] Tube Feeding 1120 560 Other 1500 860 Output: Urine 1015 365 Stool 400 Other: Voiding Method Indwelling Catheter Indwelling Catheter ABP, PAP, CO, CI - Last Documented Arterial Blood Pressure 130/52 Pulmonary Artery Pressure 40/15 Cardiac Output 5.0 Cardiac Index 2.7 - Exam 72-year-old male who is of an appropriate build is intubated, mechanically ventilated and sedated. Dobbhoff has been placed. HEENT: Anicteric conjunctiva are pink and moist nasal mucosa grossly intact without significant lesions, there is no thrush that he be seen around the oral endotracheal and Dobbhoff tube Neck: The neck is supple without significant lymphadenopathy or thyromegaly. Lungs: There is symmetrical air entry. There are bibasilar crackles there is not significant wheezing being noted Heart: Regular rate and rhythm with an audible S1-S2, soft S4 no severe murmur click or rubs audible Abdomen: Positive bowel sounds soft and nontender without palpable masses or organomegaly. There was no guarding or rebound. Extremities: The extremities have some generalized edema but no significant open lesions are seen her some minimal oozing from the right brachial arterial line Skin patient has minimal oozing from the multiple sites from the anterior chest wall from the surgery and the tubes nothing is purulent and no associated erythema around any of these sites.the scrotum is grossly swollen and very base is now had some splitting of the skin with some oozing occurring. Neuro: Awake alert - Labs CBC & Chem 7: 12/06/17 04:35 12/06/17 04:35 Labs: Abnormal Lab Results - Last 24 Hours (Table) 12/05/17 12/05/17 12/05/17 Range/Units 18:00 19:54 23:55 WBC 11.5 H (3.8-10.6) k/uL RBC 2.73 L (4.30-5.90) m/uL Hgb 8.2 L (13.0-17.5) gm/dL Hct 25.2 L (39.0-53.0) % RDW 18.3 H (11.5-15.5) % Plt Count 97 L (150-450) k/uL Neutrophils # (1.3-7.7) k/uL Lymphocytes # (1.0-4.8) k/uL ABG O2 Saturation (94-97) % Chloride (98-107) mmol/L BUN (9-20) mg/dL Creatinine (0.66-1.25) mg/dL Glucose (74-99) mg/dL POC Glucose (mg/dL) 171 H 173 H (75-99) mg/dL Calcium (8.4-10.2) mg/dL Ionized Calcium Leighann (4.5-5.3) mg/dL Total Bilirubin (0.2-1.3) mg/dL AST (17-59) U/L ALT (21-72) U/L Alkaline Phosphatase (38-126) U/L Total Protein (6.3-8.2) g/dL Albumin (3.5-5.0) g/dL 12/06/17 12/06/17 12/06/17 Range/Units 02:21 04:26 04:35 WBC (3.8-10.6) k/uL RBC (4.30-5.90) m/uL Hgb (13.0-17.5) gm/dL Hct (39.0-53.0) % RDW (11.5-15.5) % Plt Count (150-450) k/uL Neutrophils # (1.3-7.7) k/uL Lymphocytes # (1.0-4.8) k/uL ABG O2 Saturation (94-97) % Chloride 112 H (98-107) mmol/L BUN 105 H* (9-20) mg/dL Creatinine 1.62 H (0.66-1.25) mg/dL Glucose 131 H (74-99) mg/dL POC Glucose (mg/dL) 170 H 141 H (75-99) mg/dL Calcium 7.0 L (8.4-10.2) mg/dL Ionized Calcium Leighann 6.6 H* (4.5-5.3) mg/dL Total Bilirubin 2.7 H (0.2-1.3) mg/dL AST 129 H (17-59) U/L ALT 106 H (21-72) U/L Alkaline Phosphatase 227 H (38-126) U/L Total Protein 4.9 L (6.3-8.2) g/dL Albumin 1.8 L (3.5-5.0) g/dL 12/06/17 12/06/17 12/06/17 Range/Units 04:35 05:23 05:43 WBC (3.8-10.6) k/uL RBC 2.70 L (4.30-5.90) m/uL Hgb 7.8 L (13.0-17.5) gm/dL Hct 24.6 L (39.0-53.0) % RDW 18.3 H (11.5-15.5) % Plt Count 94 L (150-450) k/uL Neutrophils # 9.3 H (1.3-7.7) k/uL Lymphocytes # 0.4 L (1.0-4.8) k/uL ABG O2 Saturation 98.1 H (94-97) % Chloride (98-107) mmol/L BUN (9-20) mg/dL Creatinine (0.66-1.25) mg/dL Glucose (74-99) mg/dL POC Glucose (mg/dL) (75-99) mg/dL Calcium (8.4-10.2) mg/dL Ionized Calcium Leighann 6.3 H* (4.5-5.3) mg/dL Total Bilirubin (0.2-1.3) mg/dL AST (17-59) U/L ALT (21-72) U/L Alkaline Phosphatase (38-126) U/L Total Protein (6.3-8.2) g/dL Albumin (3.5-5.0) g/dL 12/06/17 12/06/17 12/06/17 Range/Units 06:06 08:52 10:26 WBC (3.8-10.6) k/uL RBC (4.30-5.90) m/uL Hgb (13.0-17.5) gm/dL Hct (39.0-53.0) % RDW (11.5-15.5) % Plt Count (150-450) k/uL Neutrophils # (1.3-7.7) k/uL Lymphocytes # (1.0-4.8) k/uL ABG O2 Saturation (94-97) % Chloride (98-107) mmol/L BUN (9-20) mg/dL Creatinine (0.66-1.25) mg/dL Glucose (74-99) mg/dL POC Glucose (mg/dL) 151 H 141 H 135 H (75-99) mg/dL Calcium (8.4-10.2) mg/dL Ionized Calcium Leighann (4.5-5.3) mg/dL Total Bilirubin (0.2-1.3) mg/dL AST (17-59) U/L ALT (21-72) U/L Alkaline Phosphatase (38-126) U/L Total Protein (6.3-8.2) g/dL Albumin (3.5-5.0) g/dL 12/06/17 12/06/17 12/06/17 Range/Units 12:19 14:10 16:30 WBC (3.8-10.6) k/uL RBC (4.30-5.90) m/uL Hgb (13.0-17.5) gm/dL Hct (39.0-53.0) % RDW (11.5-15.5) % Plt Count (150-450) k/uL Neutrophils # (1.3-7.7) k/uL Lymphocytes # (1.0-4.8) k/uL ABG O2 Saturation (94-97) % Chloride (98-107) mmol/L BUN (9-20) mg/dL Creatinine (0.66-1.25) mg/dL Glucose (74-99) mg/dL POC Glucose (mg/dL) 103 H 136 H 126 H (75-99) mg/dL Calcium (8.4-10.2) mg/dL Ionized Calcium Leighann (4.5-5.3) mg/dL Total Bilirubin (0.2-1.3) mg/dL AST (17-59) U/L ALT (21-72) U/L Alkaline Phosphatase (38-126) U/L Total Protein (6.3-8.2) g/dL Albumin (3.5-5.0) g/dL 12/06/17 Range/Units 18:28 WBC (3.8-10.6) k/uL RBC (4.30-5.90) m/uL Hgb (13.0-17.5) gm/dL Hct (39.0-53.0) % RDW (11.5-15.5) % Plt Count (150-450) k/uL Neutrophils # (1.3-7.7) k/uL Lymphocytes # (1.0-4.8) k/uL ABG O2 Saturation (94-97) % Chloride (98-107) mmol/L BUN (9-20) mg/dL Creatinine (0.66-1.25) mg/dL Glucose (74-99) mg/dL POC Glucose (mg/dL) 127 H (75-99) mg/dL Calcium (8.4-10.2) mg/dL Ionized Calcium Leighann (4.5-5.3) mg/dL Total Bilirubin (0.2-1.3) mg/dL AST (17-59) U/L ALT (21-72) U/L Alkaline Phosphatase (38-126) U/L Total Protein (6.3-8.2) g/dL Albumin (3.5-5.0) g/dL Laboratory Results WBC 10.5 k/uL (3.8-10.6) 12/06/17 04:35 RBC 2.70 m/uL (4.30-5.90) L 12/06/17 04:35 Hgb 7.8 gm/dL (13.0-17.5) L 12/06/17 04:35 Hct 24.6 % (39.0-53.0) L 12/06/17 04:35 MCV 91.0 fL (80.0-100.0) 12/06/17 04:35 MCH 29.0 pg (25.0-35.0) 12/06/17 04:35 MCHC 31.9 g/dL (31.0-37.0) 12/06/17 04:35 RDW 18.3 % (11.5-15.5) H 12/06/17 04:35 Plt Count 94 k/uL (150-450) L 12/06/17 04:35 Neutrophils % 88 % 12/06/17 04:35 Neutrophils % (Manual) 93 % 12/02/17 04:26 Lymphocytes % 4 % 12/06/17 04:35 Lymphocytes % (Manual) 2 % 12/02/17 04:26 Monocytes % 4 % 12/06/17 04:35 Monocytes % (Manual) 5 % 12/02/17 04:26 Eosinophils % 2 % 12/06/17 04:35 Eosinophils % (Manual) 2 % 11/16/17 10:52 Basophils % 0 % 12/06/17 04:35 Neutrophils # 9.3 k/uL (1.3-7.7) H 12/06/17 04:35 Neutrophils # (Manual) 11.53 k/uL (1.3-7.7) H 12/02/17 04:26 Lymphocytes # 0.4 k/uL (1.0-4.8) L 12/06/17 04:35 Lymphocytes # (Manual) 0.25 k/uL (1.0-4.8) L 12/02/17 04:26 Monocytes # 0.4 k/uL (0-1.0) 12/06/17 04:35 Monocytes # (Manual) 0.62 k/uL (0-1.0) 12/02/17 04:26 Eosinophils # 0.2 k/uL (0-0.7) 12/06/17 04:35 Eosinophils # (Manual) 0.10 k/uL (0-0.7) 11/16/17 10:52 Basophils # 0.0 k/uL (0-0.2) 12/06/17 04:35 Nucleated RBCs 0 /100 WBC (0-0) 12/02/17 04:26 Manual Slide Review Performed 12/05/17 04:25 Large Platelets Present 12/05/17 04:25 Polychromasia Present 11/29/17 05:00 Hypochromasia Moderate 12/06/17 04:35 Hypochromasia (manual) Present 11/26/17 03:05 Poikilocytosis Slight 12/06/17 04:35 Poikilocytosis (manual Present 11/29/17 05:00 Anisocytosis Slight 12/06/17 04:35 Macrocytosis Slight 12/04/17 04:28 Target Cells Present 12/05/17 04:25 Ovalocytes Present 12/05/17 04:25 Crenated Cell Present 12/02/17 04:26 Fragmented RBCs Present 12/05/17 04:25 PT 11.8 sec (9.0-12.0) 11/29/17 05:00 INR 1.2 (<1.2) H 11/29/17 05:00 APTT 30.7 sec (22.0-30.0) H 11/29/17 05:00 Fibrinogen 522 mg/dL (200-500) H 11/22/17 18:20 Sample Site [place] 12/06/17 05:23 ABG pH 7.40 (7.35-7.45) 12/06/17 05:23 ABG pCO2 36 mmHg (35-45) 12/06/17 05:23 ABG pO2 88 mmHg (83-108) 12/06/17 05:23 ABG HCO3 22 mmol/L (21-25) 12/06/17 05:23 ABG Total CO2 23 mmol/L (19-24) 12/06/17 05:23 ABG O2 Saturation 98.1 % (94-97) H 12/06/17 05:23 ABG Base Excess -2.6 mmol/L 12/06/17 05:23 ABG Hematocrit 24 % (34.0-46.0) L 11/17/17 18:12 Joseluis Test Yes 12/06/17 05:23 ABG Sodium 141 mmol/L (135-146) 11/17/17 18:12 ABG Potassium 4.7 mmol/L (3.4-4.5) H 11/17/17 18:12 ABG Ionized Calcium 5.1 mg/dL (4.5-5.3) 11/17/17 18:12 ABG Glucose 165 mg/dL (75-99) H 11/17/17 18:12 ABG Lactic Acid 1.7 mmol/L (0.5-1.6) H 11/24/17 20:35 Hemoglobin 7.7 gm/dL (13.0-17.5) L 11/17/17 18:12 FiO2 50 % 12/06/17 05:23 Sodium 142 mmol/L (137-145) 12/06/17 04:35 Potassium 4.0 mmol/L (3.5-5.1) 12/06/17 04:35 Chloride 112 mmol/L (98-107) H 12/06/17 04:35 Carbon Dioxide 24 mmol/L (22-30) 12/06/17 04:35 Anion Gap 6 mmol/L 12/06/17 04:35 BUN 105 mg/dL (9-20) H* 12/06/17 04:35 Creatinine 1.62 mg/dL (0.66-1.25) H 12/06/17 04:35 Est GFR (CKD-EPI)AfAm 48 (>60 ml/min/1.73 sqM) 12/06/17 04:35 Est GFR (CKD-EPI)NonAf 41 (>60 ml/min/1.73 sqM) 12/06/17 04:35 Glucose 131 mg/dL (74-99) H 12/06/17 04:35 POC Glucose (mg/dL) 127 mg/dL (75-99) H 12/06/17 18:28 POC Glu Director Microbiology ID Marie Boles 12/06/17 18:[address] Glu mg/dL 146 11/16/17 10:52 Hemoglobin A1c 6.7 % (4.0-6.0) H 11/16/17 10:52 Calcium 7.0 mg/dL (8.4-10.2) L 12/06/17 04:35 Ionized Calcium Leighann 6.3 mg/dL (4.5-5.3) H* 12/06/17 05:43 Phosphorus 3.7 mg/dL (2.5-4.5) 12/06/17 04:35 Magnesium 2.1 mg/dL (1.6-2.3) 12/06/17 04:35 Iron 16 ug/dL (65-175) L 11/28/17 04:20 TIBC 208 ug/dL (228-460) L 11/28/17 04:20 Iron Saturation 7.69 (15.00-50.00) L 11/28/17 04:20 Ferritin 679.6 ng/mL (22.0-322.0) H 11/28/17 04:20 Total Bilirubin 2.7 mg/dL (0.2-1.3) H 12/06/17 04:35 AST 129 U/L (17-59) H 12/06/17 04:35 ALT 106 U/L (21-72) H 12/06/17 04:35 Alkaline Phosphatase 227 U/L (38-126) H 12/06/17 04:35 Ammonia 37 umol/L (<30) H 11/27/17 12:00 CK-MB (CK-2) 8.4 ng/mL (0.0-2.4) H* 11/27/17 04:05 Total Protein 4.9 g/dL (6.3-8.2) L 12/06/17 04:35 Albumin 1.8 g/dL (3.5-5.0) L 12/06/17 04:35 Prealbumin <5.0 mg/dL (18.0-42.0) L 12/01/17 05:00 Triglycerides 100 mg/dL (<150) 11/27/17 04:05 Cholesterol 68 mg/dL (<200) 11/27/17 04:05 LDL Cholesterol, Calc 36 mg/dL (0-99) 11/27/17 04:05 HDL Cholesterol 12 mg/dL (40-60) L 11/27/17 04:05 Procalcitonin 1.79 ng/mL (0.02-0.09) H 11/27/17 09:50 TSH 2.410 mIU/L (0.465-4.680) 11/16/17 10:52 Cortisol 29 ug/dL 11/26/17 03:05 Arterial Blood Potassium 4.7 mmol/L (3.4-4.5) H 11/17/17 18:12 Arterial Blood Glucose 165 mg/dL (75-99) H 11/17/17 18:12 Urine Color Yellow 11/22/17 20:10 Urine Appearance Turbid (Clear) 11/22/17 20:10 Urine pH 5.0 (5.0-8.0) 11/22/17 20:10 Ur Specific Viola 1.017 (1.001-1.035) 11/22/17 20:10 Urine Protein 2+ (Negative) H 11/22/17 20:10 Urine Glucose (UA) Negative (Negative) 11/22/17 20:10 Urine Ketones Negative (Negative) 11/22/17 20:10 Urine Blood Large (Negative) H 11/22/17 20:10 Urine Nitrite Negative (Negative) 11/22/17 20:10 Urine Bilirubin Negative (Negative) 11/22/17 20:10 Urine Urobilinogen <2.0 mg/dL (<2.0) 11/22/17 20:10 Ur Leukocyte Esterase Moderate (Negative) H 11/22/17 20:10 Urine RBC >182 /hpf (0-5) H 11/22/17 20:10 Urine WBC 37 /hpf (0-5) H 11/22/17 20:10 Hyaline Casts 76 /lpf (0-2) H 11/22/17 20:10 Urine Mucus Moderate /hpf (None) H 11/22/17 20:10 Urine Sperm Many /hpf (None) H 11/22/17 20:10 Ur Random Sodium 12 mmol/L 11/22/17 20:09 Stool Occult Blood Positive (Negative) 11/24/17 09:10 Random Vancomycin 14.4 ug/mL 11/26/17 03:05 Heparin-Ind Plt Ab Scrn 0.129 OD (<0.4) 11/22/17 04:08 C. difficile (EIA) Intrp Negative (Negative) 12/05/17 15:30 Blood Type O Positive 12/05/17 11:00 Blood Type Recheck No 12/05/17 11:00 Antibody Screen NEGATIVE 12/05/17 11:00 Crossmatch See Detail 12/05/17 11:00 Transfuse Plasma 11/24/17 11/24/17 11:19 Transfuse Platelets 11/23/17 11/23/17 12:54 Spec Expiration Date 12/08/2017229912/05/17 11:00 Microbiology 11/24/17 10:25 Blood Blood Culture - Final No Growth after 144 hours 11/24/17 10:51 Blood Blood Culture - Final No Growth after 144 hours 11/24/17 20:30 Sputum Gram Stain - Final 11/24/17 20:30 Sputum Sputum Culture - Final Klebsiella oxytoca 11/24/17 10:20 Urine,Catheterized Urine Culture - Final Assessment and Plan (1) Gram-negative pneumonia Narrative/Plan: 72-year-old male presents to Hospital with progressive shortness of breath is evidence of extensive cardiomyopathy, coronary artery disease and mitral valve disease. He subsequently was taken to the operating room for coronary artery bypass grafting procedure as well as repair of the mitral valve. Is a difficult postoperative course in that he has had recurrent respiratory failure requiring reintubation now on the second event. The patient was not evidence of Klebsiella oxytoca pneumonia and treatment was begun with Zosyn which is an excellent choice for this isolated pathogen. The patient however is now had worsening of his respiratory status required reintubation and there has been some slight worsening of his leukocytosis that has been somewhat persistent. The this time it appears that the respiratory failure was related to attempts for feeding tube placement, and after intubation has had successful feeding tube placement. Hopefully with enhance nutrition there will be some further improvement of his status. The leukocytosis is likely reactionary at this time given the difficulties of reintubation. Would maintain current antibiotic therapy given that he is not having other acute changes. If leukocytosis worsens , or oxygenation declined with then consider change of antimicrobial therapy. Patient is developed diarrhea possibly related to his tube feeds, C. diff was sent and is negative at this time. Patient on specialty ICU bed for the stage II on the buttocks are being treated with the optifoam dressings 12/06/2017the patient is stable and indicated no significant worsening of his status. Gram-negative pneumonia as noted Klebsiella oxytoca found and responding well to current antibiotic therapy of Zosyn. Patient is having significant amounts of diarrhea, he has been tested 3 times and is negative for C. diff. We'll check for standard stool culture as well as antigen testing for Giardia and cryptosporidium. A dose of Imodium was given since he is C. diff negative.zinc may be applied to the scrotum to help with the tissue edema and splitting is occurring from the excessive edema. leukocytosis is now normalizing, will monitor and discontinue antibiotic therapy in the near future. Current Visit: Yes Status: Acute Code(s): J15.6 - PNEUMONIA DUE TO OTHER GRAM-NEGATIVE BACTERIA SNOMED Code(s): 131989034 (2) Congestive heart failure with cardiomyopathy and cardiomegaly Current Visit: Yes Status: Acute Code(s): I50.9 - HEART FAILURE, UNSPECIFIED ; I42.9 - CARDIOMYOPATHY, UNSPECIFIED; I51.7 - CARDIOMEGALY SNOMED Code(s): 471914557615526 (3) S/P mitral valve repair Current Visit: Yes Status: Acute Code(s): Z98.890 - OTHER SPECIFIED POSTPROCEDURAL STATES SNOMED Code(s): 977350152 (4) S/P CABG x 4 Current Visit: Yes Status: Acute Code(s): Z95.1 - PRESENCE OF AORTOCORONARY BYPASS GRAFT SNOMED Code(s): 535372431
[2017-12-06 20:16] LABS: Glucose,Whole Blood 111 mg/dL (75-99)
[2017-12-06] MEDS: ATORVASTATIN 40 MG TAB PO SCH (20:39)
[2017-12-06] MEDS: ERYTHROMYCIN 5 MG/GM OPHTH OINT 3.5 GM TUBE LEFT EYE SCH (20:39)
[2017-12-06] MEDS: prednisoLONE ACETATE 1% OPHTH DROPS 5 ML BTL LEFT EYE SCH (20:41)
[2017-12-06 22:17] LABS: Glucose,Whole Blood 136 mg/dL (75-99)
[2017-12-06 23:49] LABS: Glucose,Whole Blood 133 mg/dL (75-99)
[2017-12-07] MEDS ORDERED: DIGOXIN 250 MCG/ML 2 ML AMP IVP ONE ×2 (00:01→08:25)
[2017-12-07 02:26] LABS: Glucose,Whole Blood 149 mg/dL (75-99)
[2017-12-07 03:53] LABS: Glucose,Whole Blood 134 mg/dL (75-99)
[2017-12-07] MEDS: IPRATROPIUM-ALBUTEROL 3 ML NEB INHALATION SCH ×5 (04:01→21:01)
[2017-12-07] MEDS: NOREPINEPHRINE 16 MG in DEXTROSE 5% IN WATER 250 ML IV SCH ×4 (04:04→04:31)
[2017-12-07 04:14] LABS: Anisocytosis Slight; Basophils % (A) 0 %; Eosinophils # (A) 0.2 k/uL (0-0.7); Eosinophils % (A) 2 %; HCT 25.2 % (39.0-53.0); Hypochromasia Moderate; Lymphocytes # (A) 0.4 k/uL (1.0-4.8); Lymphocytes % (A) 4 %; MCH 29.2 pg (25.0-35.0); MCHC 31.6 g/dL (31.0-37.0); MCV 92.3 fL (80.0-100.0); Mean Platelet Volume 11.5; Monocytes # (A) 0.4 k/uL (0-1.0); Monocytes % (A) 4 %; Neutrophils # (A) 8.7 k/uL (1.3-7.7); Neutrophils % (A) 87 %; Poikilocytosis Slight; RBC 2.73 m/uL (4.30-5.90); RDW 17.9 % (11.5-15.5); WBC 9.9 k/uL (3.8-10.6)
[2017-12-07 04:16] LABS: Platelet Count 88 k/uL (150-450)
[2017-12-07 04:31] LABS: Ionized Calcium 4.5 mg/dL (4.5-5.3)
[2017-12-07 04:54] LABS: Albumin 1.8 g/dL (3.5-5.0); Calcium 6.8 mg/dL (8.4-10.2); Phosphorus 4.8 mg/dL (2.5-4.5); Potassium 4.6 mmol/L (3.5-5.1); Total Bilirubin 2.4 mg/dL (0.2-1.3); Total Protein 5.3 g/dL (6.3-8.2)
[2017-12-07 04:55] LABS: ABG Base Excess -3.6 mmol/L; ABG HCO3 22 mmol/L (21-25); ABG Oxygen Saturation 98.7 % (94-97); ABG PCO2 38 mmHg (35-45); ABG PH 7.37 (7.35-7.45); ABG PO2 115 mmHg (83-108); ABG TCO2 23 mmol/L (19-24)
[2017-12-07] MEDS: PROPOFOL 1,000 MG in EMPTY BAG 1 BAG IV SCH ×2 (05:03→15:51)
[2017-12-07 05:41] LABS: Glucose,Whole Blood 120 mg/dL (75-99)
[2017-12-07] MEDS: ASPIRIN 81 MG PO SCH (08:03)
[2017-12-07] MEDS: CHLORHEXIDINE GLUCONATE 15 ML CUP MUCOUS MEM SCH ×2 (08:03→20:00)
[2017-12-07] MEDS: CLOPIDOGREL 75 MG TAB PO SCH (08:03)
[2017-12-07] MEDS: LACTOBACILLUS ACIDOPH & BULGAR 1 EACH PACKET PO SCH ×4 (08:03→21:28)
[2017-12-07] MEDS: METOPROLOL TARTRATE 25 MG TAB PO SCH ×2 (08:04→20:01)
[2017-12-07] MEDS: AMIODARONE 200 MG TAB PO SCH (08:04)
[2017-12-07] MEDS: MIDODRINE 5 MG TAB PO SCH ×3 (08:04→16:50)
[2017-12-07] MEDS: FERROUS SULFATE ORAL ELIXIR 300 MG/5 ML CUP PO SCH ×2 (08:04→16:48)
[2017-12-07] MEDS: HEPARIN SODIUM,PORCINE 5,000 UNIT/ML 1 ML VIAL SQ SCH ×3 (08:05→23:29)
[2017-12-07] MEDS: PANTOPRAZOLE 40 MG/10 ML VIAL IVP SCH ×2 (08:05→20:01)
[2017-12-07] MEDS: FUROSEMIDE 10 MG/ML 4 ML VIAL IV SCH ×3 (08:05→23:29)
[2017-12-07] MEDS: SERTRALINE 25 MG TAB PO SCH (08:05)
[2017-12-07] MEDS: ASCORBIC ACID 500 MG TAB PO SCH ×2 (08:05→16:49)
--- NOTE | 2017-12-07 08:17 | XR ---
EXAMINATION TYPE: XR chest 1V portable DATE OF EXAM: 12/07/2017 CLINICAL HISTORY: Difficulty breathing progress study. Post open cardiac surgery. TECHNIQUE: Single AP portable upright view of the chest is obtained. COMPARISON: Chest x-ray from one day earlier and older studies FINDINGS: And endotracheal tube and left-sided PICC line as well as Dobbhoff feeding catheter are al l stable in appearance. Sternal wires and mediastinal clips as well as cardiac valvular ring and card iac closure device are all redemonstrated. There is stable mild cardiomegaly with chronic parenchymal change and small bilateral pleural effusio ns with persistent left lower lung opacity bulge reflect infiltrate and/or atelectasis. No sizable pn eumothorax is seen. Osseous structures are intact. Overlying epicardial pacer wires are redemonstrate d. IMPRESSION: Overall stable findings, chronic parenchymal changes and cardiomegaly with small bilate ral pleural effusions and persistent left lower lung infiltrate and/or atelectasis silhouetting left hemidiaphragm.
--- NOTE | 2017-12-07 08:45 | P.PN ---
Subjective Progress Note Date: 12/07/17 On 12/06/2017 I'm seeing this patient for a follow-up. This patient is post coronary artery bypass surgery and mitral valve repair and left 8 she'll appendage clipping and the patient is postop day #20. He is comorbidities include coronary artery disease, severe ischemic cardiomyopathy preoperatively, moderate degree of mitral regurgitation. He also has diabetes mellitus, hypertension and hyperlipidemia and he started off with a FEV1 of 43% of predicted on his preoperative spirometry On today's evaluation, the patient is sedated on Diprivan and is calm and comfortable. I noted that over the past 1 week the patient has been given fluids aggressively and he obviously shows signs of fluid overload. Continued lower extremity edema bilaterally and he also has developed testicular edema. He has upper extremity edema in general. The surgeons evaluated the patient. They stopped IV fluids and start the patient on diuretics. Follow pulmonary standpoint, the patient has shown some pulmonary vessel congestion and small effusion left lung base. ET tube is in a good location. The patient remains on assist control mode of ventilation at the rate of 20 with tidal volume of 400 with an FiO2 of 50% and a PEEP of 5. His blood gases shows a pH of 7.4 with a pCO2 of 36 and pO2 of 88 and this was done and FiO2 of 50%. He has grown Klebsiella in his sputum, and we we were not concerned of any pneumonia. The patient completed the course of IV Zosyn I think is central. Day antibiotic specially the patient is still having diarrhea and FMS is still in place. Chest tubes have been removed. Function is stable at creatinine of 1.6. Liver function tests improved yet not completely normalized. He remains in atrial fibrillation. He continues to be tachycardic and he remains on oral amiodarone and he was also given digoxin for rate control by cardiothoracic surgery. Malarone is running at 0.2 mics and the patient is also on norepinephrine infusion for blood pressure control. The Dobbhoff is in place and the patient is receiving enteral feeding for nutritional support. Hemoglobin from today is up to 7.8 after receiving a unit of packed RBC yesterday. The patient is afebrile. Platelet counts are stable. He arouses off sedation. Urine output is order of 60-90 mL an hour. On 12/07/2017, patient is being seen for a follow-up. Is postop day #21. I'll intubated on mechanical ventilator. The patient is on the same vent setting include an assist-control mode of ventilation with a rate of 20 and tidal volume of 400 with an FiO2 of 50% PEEP of 5. Morning blood gases showed a pH of 7.37 with a pCO2 of 38 and pO2 115. Chest x-ray shows some small bilateral pleural effusions worse on the left. ET tube is in a good location. There is also mild component of pulmonary vessel congestion and atelectatic changes in lung bases bilaterally. The patient is still hypotensive. The patient is on 70 mics of norepinephrine infusion for blood pressure control. Milrinone infusion has been discontinued. Restart on Lasix drip and despite that he remains in a positive fluid balance. In fact his other significant fluids positivity resulting into edema in the both upper and lower extremity and his extensive testicular edema. The patient is on Lasix 40 mg IV every 12 hours. The neck fluid balance over the past 24 hours is +5.7 L and 93.4 L 4 this morning. The patient is receiving tube feeds for nutritional support which is tolerating. He is having liquidy diarrhea. FMS system is still in place. The patient is receiving insulin drip for blood sugar control. The patient is also on norepinephrine infusion. The rest of the fluids are all KVO. No chills. No fever. Still in atrial fibrillation with a controlled rate. The patient is on amiodarone 200 mg by mouth daily. Metoprolol is being given once his blood pressure is more stable. Digoxin was also evidence for rate control. His current rate somewhat between 90-110 irregular in A. fib. The surgical wound site over the sternum is dry clean and intact. No fever. No chills. No other significant events overnight. Renal function is due to be. The creatinine of 1.8. Objective - Vital Signs Vital signs: Vital Signs Temp 98.1 F 12/07/17 00:00 Pulse 99 12/07/17 08:23 Resp 29 H 12/07/17 07:00 BP 116/61 12/06/17 19:00 Pulse Ox 98 12/07/17 07:00 Intake & Output 12/06/17 12/07/17 12/07/17 18:59 06:59 18:59 Intake Total 2548.490 2239.304 93 Output Total 570 738 75 Balance 1325.882 0441.304 18 Weight 91.1 kg Intake: IV 335.6 276 23 D5w with KCl 20 Meq/l 1, 295 240 20 000 ml @ 20 mls/hr IV . Q24H [facility] Rx#:[id number] Milrinone-D5w Pmx 20 mg 4.6 In Dextrose/Water 1 100ml .bag @ 0.1 MCG/KG/MIN 2. 33 mls/hr IV .Q24H [facility] Rx #:[id number] Pressure Bags 36 36 3 Intake, IV Titration 282.890 243.304 Amount Insulin Regular 100 unit 15.44 18.2 In Sodium Chloride 0.9% 100 ml @ Per Protocol IV .Q0M [facility] Rx#:[id number] Milrinone-D5w Pmx 20 mg 95.491 In Dextrose/Water 1 100ml .bag @ 0.1 MCG/KG/MIN 2. 33 mls/hr IV .Q24H [facility] Rx #:[id number] Norepinephrine 16 mg In 71.959 80.704 Dextrose 5% in Water 250 ml @ Titrate IV .Q0M [facility] Rx#:[id number] Propofol 1,000 mg In 100.000 144.4 Empty Bag 1 bag @ Titrate IV .Q0M [facility] Rx#: [id number] Tube Feeding 770 1120 70 Other 1160 600 Output: Urine 570 738 75 Other: Voiding Method Indwelling Catheter Indwelling Catheter ABP, PAP, CO, CI - Last Documented Arterial Blood Pressure 129/44 Pulmonary Artery Pressure 40/15 Cardiac Output 5.0 Cardiac Index 2.7 - Exam - Constitutional General appearance: Present: no acute distress - Respiratory Details: Lungs sounds diminished bilaterally with scattered rhonchi. Respirations even, nonlabored on mechanical ventilation. Current settings assist control mode, FiO2 50%, tidal volume 450, respiratory rate 22, PEEP 5. ABGs this morning 7.4/ 36/88/22/98%/-2.6. 8.0 ET tube present, 24 at the lip. - Cardiovascular Details: S1, S2 present. Tachy, irregular rate and rhythm, A. fib RVR on telemetry. Sternum stable. A/V epicardial pacemaker wires present, grounded. Palpable peripheral pulses bilaterally. Bilateral lower extremity, scrotal edema present. Right radial arterial line, left brachial PICC line present. Levo being titrated off, Primacor decreased to 0.1 mcg/kg/min. Heart hugger, antiembolism stockings, SCDs present. - Gastrointestinal Gastrointestinal Comment(s): Abdomen soft, nontender, nondistended. Active bowel sounds present 4 quadrants. Dobbhoff present. Vital tube feedings infusing at goal of 70 mL per hour. Fecal management system present, positive diarrhea. - Genitourinary Genitourinary Comment(s): Fong present draining clear yellow urine. Output 60-90 ml/hr overnight. - Integumentary Integumentary Comment(s): Skin warm and dry. Sternal incision well approximated and covered with dry intact dressing. Left lower extremity EVH site well approximated. Stage II pressure ulcer to coccyx, covered by Optisol foam dressing. - Neurologic Neurologic Comment(s): Currently sedated on mechanical ventilation. - Musculoskeletal Musculoskeletal: Present: generalized weakness - Allied health notes Allied health notes reviewed: nursing - Labs CBC & Chem 7: 12/07/17 04:05 12/07/17 04:05 Labs: Abnormal Lab Results - Last 24 Hours (Table) 12/06/17 12/06/17 12/06/17 Range/Units 08:52 10:26 12:19 RBC (4.30-5.90) m/uL Hgb (13.0-17.5) gm/dL Hct (39.0-53.0) % RDW (11.5-15.5) % Plt Count (150-450) k/uL Neutrophils # (1.3-7.7) k/uL Lymphocytes # (1.0-4.8) k/uL ABG pO2 (83-108) mmHg ABG O2 Saturation (94-97) % Chloride (98-107) mmol/L BUN (9-20) mg/dL Creatinine (0.66-1.25) mg/dL Glucose (74-99) mg/dL POC Glucose (mg/dL) 141 H 135 H 103 H (75-99) mg/dL Calcium (8.4-10.2) mg/dL Phosphorus (2.5-4.5) mg/dL Total Bilirubin (0.2-1.3) mg/dL AST (17-59) U/L ALT (21-72) U/L Alkaline Phosphatase (38-126) U/L Total Protein (6.3-8.2) g/dL Albumin (3.5-5.0) g/dL 12/06/17 12/06/17 12/06/17 Range/Units 14:10 16:30 18:28 RBC (4.30-5.90) m/uL Hgb (13.0-17.5) gm/dL Hct (39.0-53.0) % RDW (11.5-15.5) % Plt Count (150-450) k/uL Neutrophils # (1.3-7.7) k/uL Lymphocytes # (1.0-4.8) k/uL ABG pO2 (83-108) mmHg ABG O2 Saturation (94-97) % Chloride (98-107) mmol/L BUN (9-20) mg/dL Creatinine (0.66-1.25) mg/dL Glucose (74-99) mg/dL POC Glucose (mg/dL) 136 H 126 H 127 H (75-99) mg/dL Calcium (8.4-10.2) mg/dL Phosphorus (2.5-4.5) mg/dL Total Bilirubin (0.2-1.3) mg/dL AST (17-59) U/L ALT (21-72) U/L Alkaline Phosphatase (38-126) U/L Total Protein (6.3-8.2) g/dL Albumin (3.5-5.0) g/dL 12/06/17 12/06/17 12/06/17 Range/Units 20:14 22:15 23:47 RBC (4.30-5.90) m/uL Hgb (13.0-17.5) gm/dL Hct (39.0-53.0) % RDW (11.5-15.5) % Plt Count (150-450) k/uL Neutrophils # (1.3-7.7) k/uL Lymphocytes # (1.0-4.8) k/uL ABG pO2 (83-108) mmHg ABG O2 Saturation (94-97) % Chloride (98-107) mmol/L BUN (9-20) mg/dL Creatinine (0.66-1.25) mg/dL Glucose (74-99) mg/dL POC Glucose (mg/dL) 111 H 136 H 133 H (75-99) mg/dL Calcium (8.4-10.2) mg/dL Phosphorus (2.5-4.5) mg/dL Total Bilirubin (0.2-1.3) mg/dL AST (17-59) U/L ALT (21-72) U/L Alkaline Phosphatase (38-126) U/L Total Protein (6.3-8.2) g/dL Albumin (3.5-5.0) g/dL 12/07/17 12/07/17 12/07/17 Range/Units 02:24 03:51 04:05 RBC (4.30-5.90) m/uL Hgb (13.0-17.5) gm/dL Hct (39.0-53.0) % RDW (11.5-15.5) % Plt Count (150-450) k/uL Neutrophils # (1.3-7.7) k/uL Lymphocytes # (1.0-4.8) k/uL ABG pO2 (83-108) mmHg ABG O2 Saturation (94-97) % Chloride 109 H (98-107) mmol/L BUN 111 H* (9-20) mg/dL Creatinine 1.82 H (0.66-1.25) mg/dL Glucose 123 H (74-99) mg/dL POC Glucose (mg/dL) 149 H 134 H (75-99) mg/dL Calcium 6.8 L (8.4-10.2) mg/dL Phosphorus 4.8 H (2.5-4.5) mg/dL Total Bilirubin 2.4 H (0.2-1.3) mg/dL AST 147 H (17-59) U/L ALT 116 H (21-72) U/L Alkaline Phosphatase 246 H (38-126) U/L Total Protein 5.3 L (6.3-8.2) g/dL Albumin 1.8 L (3.5-5.0) g/dL 12/07/17 12/07/17 12/07/17 Range/Units 04:05 04:53 05:39 RBC 2.73 L (4.30-5.90) m/uL Hgb 8.0 L (13.0-17.5) gm/dL Hct 25.2 L (39.0-53.0) % RDW 17.9 H (11.5-15.5) % Plt Count 88 L (150-450) k/uL Neutrophils # 8.7 H (1.3-7.7) k/uL Lymphocytes # 0.4 L (1.0-4.8) k/uL ABG pO2 115 H (83-108) mmHg ABG O2 Saturation 98.7 H (94-97) % Chloride (98-107) mmol/L BUN (9-20) mg/dL Creatinine (0.66-1.25) mg/dL Glucose (74-99) mg/dL POC Glucose (mg/dL) 120 H (75-99) mg/dL Calcium (8.4-10.2) mg/dL Phosphorus (2.5-4.5) mg/dL Total Bilirubin (0.2-1.3) mg/dL AST (17-59) U/L ALT (21-72) U/L Alkaline Phosphatase (38-126) U/L Total Protein (6.3-8.2) g/dL Albumin (3.5-5.0) g/dL Assessment and Plan Plan: #1. Symptomatic multivessel coronary artery disease, with total occlusion of the LAD, 70% stenosis of the diagonal artery, 95% stenosis of the circumflex, diffuse disease in the RCA with 70% stenosis at the bifurcation of the PDA and PLV. Patient is scheduled for coronary artery bypass grafting and mitral valve repair on 11/17/2017. The patient is postop day #21 #2. Mitral valve regurgitation, post mitral valve repair, patient postop day # 21 #3 shock with ongoing difficulties with hypotension. This is predominantly of a cardiogenic in nature. The patient developed multisystem organ injury including shock liver, and acute kidney injury from which is improving. The patient had to be intubated twice during the course of his postoperative management. ICU. The patient is still hypotensive on pressors and 7 mics of norepinephrine infusion for hemodynamic support. He has been in a positive fluid balance with significant a massive fluid overload both in upper and lower extremity and he is being diuresed with IV Lasix 40 mg every 12 hours. Despite that, he remains in a positive fluid balance. #4 Ischemic cardiomyopathy, with severe left ventricular systolic dysfunction, with significantly impaired preoperative physical ejection fraction, subsequent echocardiogram postop on a ventilator thousand and 18 showed improvement in ejection fraction of 40-45%, the right ventricular was dilated [id number] and the left atrium was moderately dilated also. #5. Diabetes mellitus type 2, the patient is on insulin drip #6. Remote history of nicotine dependence, patient quit 40 years ago, carries 5 -pack-year smoking history #7. Postoperative anemia and expected outcome of cardiothoracic surgery and prolonged ICU stay and the patient is requiring on and off packed RBC transfusion. #8. Diabetic retinopathy #9 acute hepatocellular injury/shock liver secondary to above, improving #10 acute kidney injury on top of chronic renal failure, improving #11 ischemic colitis with secondary diarrhea #12 thrombocytopenia, improving, and expected outcome of cardiac surgery #13 chronic atrial fibrillation him a still on amiodarone Plan Overall condition is essentially same compared to yesterday. We'll make consider a higher dose of Lasix to optimize the volume status. We'll discuss with nephrology and cardiothoracic surgery the possibility of putting this patient on Lasix drip. Also continue amiodarone and digoxin for rate control regarding the atrial fibrillation. Daily sedation holidays. No plans for extubation baseline above-mentioned instability. The patient has failed to previous attempts at extubation. The has declined to give consent for tracheostomy tube insertion. She has made a decision based on the patient's wishes. As such the patient continues to be intubated and will continuing our supportive in the ICU. Check a baseline cortisol level. We'll continue to follow. Critically care evaluation. More than 30 minutes. Time with Patient: Greater than 30
[2017-12-07 08:47] LABS: Glucose,Whole Blood 105 mg/dL (75-99)
[2017-12-07 11:57] LABS: Appearance,Urine Cloudy (Clear); Bacteria,Urine Occasional /hpf; Bilirubin,Urine Negative (Negative); Blood,Urine Large (Negative); Color,Urine Yellow; Glucose,Urine (UA) Negative (Negative); Hyaline Casts,Urine 17 /lpf (0-2); Ketones,Urine Negative (Negative); Leukocyte Esterase,Urine Moderate (Negative); Mucus,Urine Rare /hpf; Nitrite,Urine Negative (Negative); Protein,Urine 1+ (Negative); RBC,Urine >182 /hpf (0-5); Specific Gravity,Urine 1.013 (1.001-1.035); Squamous Epithelial Cell,Urine <1 /hpf (0-4); WBC,Urine 21 /hpf (0-5)
--- NOTE | 2017-12-07 12:09 | P.PN ---
Subjective Patient is seen in follow-up for acute kidney injury. Renal function worse today with creatinine at 1.82 today. Patient underwent CABG and mitral valve repair this admission. Ejection fraction is 30-35%. Hemoglobin 6.9 on 11/29 s/ p pRBC transfusion - hgb 8 today. He is on 6 mics of levophed. He is nonoliguric. Currently intubated. Edema worse. Receiving tube feeds with water flushes 300 q6h - sodium 139 today. Patient also spiked a fever of 102 last night. Vital signs are stable. General: The patient appeared well nourished and normally developed. HEENT: Head exam is unremarkable. Neck is without jugular venous distension. LUNGS: Breath sounds decreased. HEART: Rate and Rhythm are regular. First and second heart sounds normal. No murmurs, rubs or gallops. ABDOMEN: Abdominal exam reveals normal bowel sounds. Non-tender and non- distended. No evidence of peritonitis. EXTREMITITES: 1+ edema. Significant scrotal edema noted. Objective - Vital Signs Vital signs: Vital Signs Temp 102.2 F H 12/07/17 10:00 Pulse 90 12/07/17 11:48 Resp 31 H 12/07/17 11:00 BP 116/61 12/06/17 19:00 Pulse Ox 97 12/07/17 11:00 Intake & Output 12/06/17 12/07/17 12/07/17 18:59 06:59 18:59 Intake Total 2548.490 2239.304 681.452 Output Total 570 738 300 Balance 5853.884 3675.304 381.452 Weight 91.1 kg 91.1 kg Intake: IV 335.6 276 115 D5w with KCl 20 Meq/l 1, 295 240 100 000 ml @ 20 mls/hr IV . Q24H [facility] Rx#:[id number] Milrinone-D5w Pmx 20 mg 4.6 In Dextrose/Water 1 100ml .bag @ 0.1 MCG/KG/MIN 2. 33 mls/hr IV .Q24H [facility] Rx #:[id number] Pressure Bags 36 36 15 Intake, IV Titration 282.890 243.304 96.452 Amount Insulin Regular 100 unit 15.44 18.2 26.46 In Sodium Chloride 0.9% 100 ml @ Per Protocol IV .Q0M [facility] Rx#:[id number] Milrinone-D5w Pmx 20 mg 95.491 In Dextrose/Water 1 100ml .bag @ 0.1 MCG/KG/MIN 2. 33 mls/hr IV .Q24H [facility] Rx #:[id number] Norepinephrine 16 mg In 71.959 80.704 Dextrose 5% in Water 250 ml @ Titrate IV .Q0M [facility] Rx#:[id number] Propofol 1,000 mg In 100.000 144.4 69.992 Empty Bag 1 bag @ Titrate IV .Q0M [facility] Rx#: [id number] Oral 120 Tube Feeding 770 1120 350 Other 1160 600 Output: Urine 570 738 300 Other: Voiding Method Indwelling Catheter Indwelling Catheter Indwelling Catheter ABP, PAP, CO, CI - Last Documented Arterial Blood Pressure 133/55 Pulmonary Artery Pressure 40/15 Cardiac Output 5.0 Cardiac Index 2.7 - Labs CBC & Chem 7: 12/07/17 04:05 12/07/17 04:05 Labs: Abnormal Lab Results - Last 24 Hours (Table) 12/06/17 12/06/17 12/06/17 Range/Units 12:19 14:10 16:30 RBC (4.30-5.90) m/uL Hgb (13.0-17.5) gm/dL Hct (39.0-53.0) % RDW (11.5-15.5) % Plt Count (150-450) k/uL Neutrophils # (1.3-7.7) k/uL Lymphocytes # (1.0-4.8) k/uL ABG pO2 (83-108) mmHg ABG O2 Saturation (94-97) % Chloride (98-107) mmol/L BUN (9-20) mg/dL Creatinine (0.66-1.25) mg/dL Glucose (74-99) mg/dL POC Glucose (mg/dL) 103 H 136 H 126 H (75-99) mg/dL Calcium (8.4-10.2) mg/dL Phosphorus (2.5-4.5) mg/dL Total Bilirubin (0.2-1.3) mg/dL AST (17-59) U/L ALT (21-72) U/L Alkaline Phosphatase (38-126) U/L Total Protein (6.3-8.2) g/dL Albumin (3.5-5.0) g/dL Urine Protein (Negative) Urine Blood (Negative) Ur Leukocyte Esterase (Negative) Urine RBC (0-5) /hpf Urine WBC (0-5) /hpf Urine Bacteria (None) /hpf Hyaline Casts (0-2) /lpf Urine Mucus (None) /hpf 12/06/17 12/06/17 12/06/17 Range/Units 18:28 20:14 22:15 RBC (4.30-5.90) m/uL Hgb (13.0-17.5) gm/dL Hct (39.0-53.0) % RDW (11.5-15.5) % Plt Count (150-450) k/uL Neutrophils # (1.3-7.7) k/uL Lymphocytes # (1.0-4.8) k/uL ABG pO2 (83-108) mmHg ABG O2 Saturation (94-97) % Chloride (98-107) mmol/L BUN (9-20) mg/dL Creatinine (0.66-1.25) mg/dL Glucose (74-99) mg/dL POC Glucose (mg/dL) 127 H 111 H 136 H (75-99) mg/dL Calcium (8.4-10.2) mg/dL Phosphorus (2.5-4.5) mg/dL Total Bilirubin (0.2-1.3) mg/dL AST (17-59) U/L ALT (21-72) U/L Alkaline Phosphatase (38-126) U/L Total Protein (6.3-8.2) g/dL Albumin (3.5-5.0) g/dL Urine Protein (Negative) Urine Blood (Negative) Ur Leukocyte Esterase (Negative) Urine RBC (0-5) /hpf Urine WBC (0-5) /hpf Urine Bacteria (None) /hpf Hyaline Casts (0-2) /lpf Urine Mucus (None) /hpf 12/06/17 12/07/17 12/07/17 Range/Units 23:47 02:24 03:51 RBC (4.30-5.90) m/uL Hgb (13.0-17.5) gm/dL Hct (39.0-53.0) % RDW (11.5-15.5) % Plt Count (150-450) k/uL Neutrophils # (1.3-7.7) k/uL Lymphocytes # (1.0-4.8) k/uL ABG pO2 (83-108) mmHg ABG O2 Saturation (94-97) % Chloride (98-107) mmol/L BUN (9-20) mg/dL Creatinine (0.66-1.25) mg/dL Glucose (74-99) mg/dL POC Glucose (mg/dL) 133 H 149 H 134 H (75-99) mg/dL Calcium (8.4-10.2) mg/dL Phosphorus (2.5-4.5) mg/dL Total Bilirubin (0.2-1.3) mg/dL AST (17-59) U/L ALT (21-72) U/L Alkaline Phosphatase (38-126) U/L Total Protein (6.3-8.2) g/dL Albumin (3.5-5.0) g/dL Urine Protein (Negative) Urine Blood (Negative) Ur Leukocyte Esterase (Negative) Urine RBC (0-5) /hpf Urine WBC (0-5) /hpf Urine Bacteria (None) /hpf Hyaline Casts (0-2) /lpf Urine Mucus (None) /hpf 12/07/17 12/07/17 12/07/17 Range/Units 04:05 04:05 04:53 RBC 2.73 L (4.30-5.90) m/uL Hgb 8.0 L (13.0-17.5) gm/dL Hct 25.2 L (39.0-53.0) % RDW 17.9 H (11.5-15.5) % Plt Count 88 L (150-450) k/uL Neutrophils # 8.7 H (1.3-7.7) k/uL Lymphocytes # 0.4 L (1.0-4.8) k/uL ABG pO2 115 H (83-108) mmHg ABG O2 Saturation 98.7 H (94-97) % Chloride 109 H (98-107) mmol/L BUN 111 H* (9-20) mg/dL Creatinine 1.82 H (0.66-1.25) mg/dL Glucose 123 H (74-99) mg/dL POC Glucose (mg/dL) (75-99) mg/dL Calcium 6.8 L (8.4-10.2) mg/dL Phosphorus 4.8 H (2.5-4.5) mg/dL Total Bilirubin 2.4 H (0.2-1.3) mg/dL AST 147 H (17-59) U/L ALT 116 H (21-72) U/L Alkaline Phosphatase 246 H (38-126) U/L Total Protein 5.3 L (6.3-8.2) g/dL Albumin 1.8 L (3.5-5.0) g/dL Urine Protein (Negative) Urine Blood (Negative) Ur Leukocyte Esterase (Negative) Urine RBC (0-5) /hpf Urine WBC (0-5) /hpf Urine Bacteria (None) /hpf Hyaline Casts (0-2) /lpf Urine Mucus (None) /hpf 12/07/17 12/07/17 12/07/17 Range/Units 05:39 08:46 11:20 RBC (4.30-5.90) m/uL Hgb (13.0-17.5) gm/dL Hct (39.0-53.0) % RDW (11.5-15.5) % Plt Count (150-450) k/uL Neutrophils # (1.3-7.7) k/uL Lymphocytes # (1.0-4.8) k/uL ABG pO2 (83-108) mmHg ABG O2 Saturation (94-97) % Chloride (98-107) mmol/L BUN (9-20) mg/dL Creatinine (0.66-1.25) mg/dL Glucose (74-99) mg/dL POC Glucose (mg/dL) 120 H 105 H (75-99) mg/dL Calcium (8.4-10.2) mg/dL Phosphorus (2.5-4.5) mg/dL Total Bilirubin (0.2-1.3) mg/dL AST (17-59) U/L ALT (21-72) U/L Alkaline Phosphatase (38-126) U/L Total Protein (6.3-8.2) g/dL Albumin (3.5-5.0) g/dL Urine Protein 1+ H (Negative) Urine Blood Large H (Negative) Ur Leukocyte Esterase Moderate H (Negative) Urine RBC >182 H (0-5) /hpf Urine WBC 21 H (0-5) /hpf Urine Bacteria Occasional H (None) /hpf Hyaline Casts 17 H (0-2) /lpf Urine Mucus Rare H (None) /hpf Microbiology - Last 24 Hours (Table) 12/06/17 22:12 Stool Culture - Preliminary Stool Assessment and Plan Plan: Assessment: 1. Nonoliguric acute kidney injury secondary to ATN secondary to hemodynamic instability/post CABG. Renal function worsened with creatinine at 1.82 today which is due to diuresis and hypotension. 2. Status post CABG and mitral valve repair. 3. Systolic CHF with ejection fraction of 30-35%. 4. Anemia status post blood transfusion this admission. Hgb 8 today. Severe iron deficiency noted. Status post 2 doses of IV iron. 5. Hypotension on 6 mics of Levophed. Cortisol level 29. 6. Hypernatremia from lack of oral water intake. Sodium 139 today. 7. Acute hypoxic respiratory failure currently on ventilator support. 8. Hypocalcemia secondary to hypoalbuminemia. Corrected calcium in the normal range. 9. Volume overload. Plan: Continue free water flushes 300 mL every 6 hours with tube feeds - will decrease if sodium lower tomorrow. Increase Lasix to 40 mg IV 3 times daily. Avoid nephrotoxins. Continue to monitor renal function and urine output. Wean pressors.
[2017-12-07] MEDS: NOREPINEPHRINE 16 MG in SODIUM CHLORIDE 0.9% 250 ML IV SCH (12:15)
[2017-12-07 12:17] LABS: Glucose,Whole Blood 122 mg/dL (75-99)
[2017-12-07 12:25] LABS: Glucose,Whole Blood 122 mg/dL (75-99)
--- NOTE | 2017-12-07 12:36 | P.PN ---
Subjective Progress Note Date: 12/07/17 This is a pleasant gentleman patient of Dr. Spann, newly established to the office to evaluate shortness of breath, dyspnea on exertion, underwent cardiac cath and found to have ischemic cardiomyopathy with severe LV dysfunction, triple-vessel disease prior to bypass surgery, admitted for bypass surgery and valve repair. He has underlying history of diabetes mellitus type 2, hyperlipidemia, Cardiac cath performed 11/09/2017 shows left main coronary up was calcified, circumflex 95% stenosis in the ostial portion, LAD totally occluded just of to the origin of the large diagonal branch, diagonal branch from the percent stenosis, 70% stenosis in the PDA and PLV severe left ventricle systolic dysfunction and mitral regurgitation He is currently in ICU being prepped for CABG and mitral valve repair on 2017 and has intra-aortic balloon pump done through the right femoral artery. 11/17: Patient is having open-heart surgery today. 11/18: Patient is status post quadruple coronary artery bypass grafting using the left internal mammary artery to the left anterior descending coronary artery, a reverse greater saphenous vein graft from the aorta to the diagonal coronary artery, reverse greater saphenous vein graft from the aorta to the first obtuse marginal coronary artery, a reverse greater saphenous vein graft from the aorta to the posterior descending coronary artery and mitral valve repair. Patient remains in the intensive care unit intubated and on mechanical ventilation currently on CPAP for weaning parameters. He continues to have intra-aortic balloon pump in place which is plan to keep for 1 more day. He has a right, left and mediastinal chest tubes in place draining serosanguineous fluid. Urine output is 50-60 mL per hour. He is also on vasopressors. Hemoglobin A1c is 6.7. 83: Patient remains in the intensive care unit. He is currently off oxygen and pulse oxing. He continues to have all [address] Balloon pump was removed. Urine output has been adequate. White count is normal. Hemoglobin 7.3, INR 1.5, creatinine 0.93, blood sugars are running between 104 and 127. He has been afebrile. Heart rate running in the 90s. Blood pressure is stable with current vasopressors. Pulse ox is 9700% on room air. Patient denies having any chest pain. No abdominal pain. No nausea. 8/4. Patient examined the bedside in the ICU. Currently off oxygen. He is not making enough urine output. Creatinine function has worsened from 0.8-1.2. Hemoglobin 7 this morning status post transfusion 1 unit PRBC. Patient is denies any chest pain, shortness of breath is resting comfortably in the chair. He still continues to have [address] with a AARON drain. Blood sugar between 100-125. 11/21 patient examined bedside in the ICU. Brief episode of atrial fibrillation last night and one dose of IV amiodarone given followed by a maintenance dose Afinitor on 400 mg twice a day. Creatinine increased to 1.8 today. Patient is having minimal urine output with less than 10 mL per hour. Patient may benefit from IV fluids as he has minimal oral intake and has minimal urine output. One bag of 250 mg abdomen given today. Patient received 2 units of PRBCs C yesterday. No bowel movements for the past 3 days. Patient is passing gas. Continue with bowel regimen 11/22: Patient hasn't been noted to have increasing renal numbers with BUN of 66 and creatinine 2.2 and nephrology has been consult did. Patient is also noted to have low urine output and dark urine. He is not eating very much. Patient is more lethargic today. He denies any abdominal pain. Heart rate is controlled in a sinus rhythm. He is currently on oral amiodarone and Lopressor for atrial fibrillation. No anticoagulation due to thrombocytopenia. He is currently off label fed but continued on Primacor. 11/23: Patient has been seen by hematology for thrombocytopenia secondary to shock liver and consumption. Fibrinogen to be checked. Patient be transfused if platelet count is less than 50,000. One dose of vitamin K was given for INR of 1.8 yesterday. INR today is at 2.5, platelet count 41. BUN 89, creatinine 2.30, AST 1470, ALT 721. Urinalysis is turbid, leukoesterase moderate, RBCs greater than 182, wbc's 37, Patient has also been seen by nephrology for acute kidney injury, acute tubular necrosis, oliguria. Recommendations to transfuse if hemoglobin is falls below 7.4 fluid bolus was attempted without improvement and patient was started on Lasix drip. Patient is also continued on Primacor. Urine output has been 35-75 mL per hour. Heart rate has been elevated in the low 100s. Patient has received calcium chloride 1 dose yesterday and repeat today. He was started on Midodrine 10 mg 3 times daily yesterday. He is more lethargic today. He has failed a swallow eval and speech therapy added. Patient has been started on Zoloft for depression but patient appears to be more acute delirium. Patient has been on and off norepinephrine as his blood pressures dropping into the 80 systolic when he sleeps. 11/24: Lasix drip has been discontinued. Patient has received 4 A of bicarbonate is on a bicarb drip. Patient is on levofed and vasopressin along with Primacor. He has received vitamin K and fresh frozen plasma. Urine output is 15-20 mL per hour. Central line was placed today requiring of fresh frozen plasma and vitamin K. There is concern for need of hemodialysis. Patient has diarrhea after having constipation and fecal management system has been placed. His mental status continued to decline yesterday and by this morning he was re -intubated. White count is increasing to 18.5, hemoglobin 7.1, platelet count 48. INR is 2.9, BUN 103, creatinine 3.17, phosphorus 7.5, magnesium 2.7, AST 1301, ALT 623. Total bilirubin is 5.8. Cortisol level was greater than 123. Patient will be resumed back on insulin drip due to hyperglycemia. Echocardiogram reveals EF of 40-45%, mild concentric left ventricular hypertrophy, and only mild gently dilated 34-39, moderate mitral stenosis, mild tricuspid regurgitation, mild pulmonary hypertension 11/25: Patient remains intubated and on mechanical ventilation. We resumed insulin drip yesterday. He remains on Levophed and milrinone. Renal function remains poor. 11/26: Patient remains in the intensive care unit, intubated and on mechanical ventilation. Patient has had good urine output. He remains on vasopressin, norepinephrine, insulin drip. BUN is 114 and creatinine 2.2, phosphorus 4.5, white count 14.6. Hemoglobin is 7. There are no orders for transfusion. INR is 1.7. Liver function tests are improving. Sputum culture showing gram- negative bacilli. 11/27: Patient continued to be intubated does not follow commands. Patient has developed atrial fibrillation and heart rate is currently controlled. Patient continued to require levo fed infusion at 6 mics per Per minute 11/28:Patient continued to be distended does not follow commands. Patient has developed atrial fibrillation and heart rate is currently controlled. Patient was following commands by squeezing his hand this morning but currently is off sedation but still not following commands patient is moving his head to the right than to the left spontaneously and currently still on full vent support 11/29: Patient remains intubated and on mechanical ventilation. He is currently being CPAP. He has been off vasopressors since over the weekend. He is also off midodrine. Patient started on hydralazine. He is more alert and able to squeeze his hands with direction. Left is noted to be stronger than the right. He has continued on Primacor and insulin. We have ordered one dose of Ferrlecit and he is scheduled for transfusion 1 unit of packed RBCs for hemoglobin of 6.9. Liver function tests are improving. BUN is 131 and creatinine 1.6. 11/30: Patient remains in intensive care unit intubated and on mechanical ventilation. He continues to be off vasopressors. He remains on Primacor. Urine output has been between 45 and 150 mL per hour. BUN 131 and creatinine 1.6. White count is down to 12.8, hemoglobin is now 8 after 1 unit of packed RBCs and he received Ferrlecit yesterday. White blood count is recovering now at 136. Liver function tests are all improving as well. Overall, patient is showing slow gradual improvement. Another dose of Ferrlecit has been ordered by nephrology. 12/01: Patient has been successfully extubated yesterday and now on BiPAP. Patient is currently on Precedex. He was placed on low-dose label fed and is currently being weaned. Central line and chest tube on the right to be removed today. White count is 13.7, hemoglobin 8.1, BUN 126 and creatinine 1.6. Capillary blood glucose running between 132 and 152. Her function tests continue to improve. 12/02: Patient remains in the intensive care unit. A Dobbhoff was attempted yesterday but was unsuccessful and to be retry today. Capillary blood glucose running between 149 and 164. White count is down to 12.4, hemoglobin is at 7.8. Renal function shows a BUN of 118 and creatinine 1.6. Liver function tests continue to improve slowly but are not back to normal range. 12/03: Patient remains in intensive care unit. Attempted Dobbhoff tube was attempted by STEVEN yesterday but second attempt was also unsuccessful and patient required reintubation for acute respiratory failure. Patient is on Primacor and propofol, low dose norepinephrine. Asians does not wish for tracheostomy and PEG tube as those were the patient's wishes. Patient has had diarrhea starting a urine specimen to be sent for C. difficile toxin. 12/04: Patient remains in intensive care unit, he continues to be on the ventilator with an before meals mode FiO2 50% appears extremely weak, he was seen along with the cardiothoracic surgery service, we will continue to monitor the patient very closely prognosis very guarded. 12/05: Patient is sedated with propofol his currently on the ventilator continues to be on milrinone and Midrin along with levo, the plan is for the patient to have the trach and PEG this discussion was entertained with the by the cardiothoracic surgery service and the plan is still not okayed as the patient did not want to go for this. 12/06: Patient was given IV dig start today and followed with oral dosing and Lasix 40 mg IV daily. He was ordered for 1 unit of packed RBCs for hemoglobin of 7 yesterday. Repeat hemoglobin 7.8 this morning. Creatinine is slightly higher from yesterday 1.62. Liver function tests are slightly elevated from yesterday. He remains intubated and on mechanical ventilation. He has been afebrile. Patient's may consider PEG and trach if patient shows notable improvement. 12/07: Patient remains intubated and on mechanical ventilation. Hemoglobin is stable at 8, noted platelets have been dropping and currently at 88. BUN is 111 and creatinine 1.82, liver function tests are rising with currently on total bilirubin of 2.4, AST 147, ALT 116, alkaline phosphatase 246. Albumin is 1.8. Patient is on tube feedings. IV Lasix has been increased to [address] Kebede. Patient remains with medical management in place and testing for Giardia, cryptosporidium in process and Imodium added. C. difficile toxin has been negative at 3 specimens. He has a stage II decubitus ulcer to the sacrum. Patient developed fever 102.2 this morning. Blood culture was obtained. Patient on norepinephrine. Midodrine was added yesterday. Objective - Vital Signs Vital signs: Vital Signs Temp 98.1 F 12/07/17 00:00 Pulse 102 H 12/07/17 08:50 Resp 29 H 12/07/17 07:00 BP 116/61 12/06/17 19:00 Pulse Ox 98 12/07/17 07:00 Intake & Output 12/06/17 12/07/17 12/07/17 18:59 06:59 18:59 Intake Total 2548.490 2239.304 189.452 Output Total 570 738 75 Balance 6925.020 5641.304 114.452 Weight 91.1 kg Intake: IV 335.6 276 23 D5w with KCl 20 Meq/l 1, 295 240 20 000 ml @ 20 mls/hr IV . Q24H JANNA Rx#:[id number] Milrinone-D5w Pmx 20 mg 4.6 In Dextrose/Water 1 100ml .bag @ 0.1 MCG/KG/MIN 2. 33 mls/hr IV .Q24H JANNA Rx #:[id number] Pressure Bags 36 36 3 Intake, IV Titration 282.890 243.304 96.452 Amount Insulin Regular 100 unit 15.44 18.2 26.46 In Sodium Chloride 0.9% 100 ml @ Per Protocol IV .Q0M JANNA Rx#:[id number] Milrinone-D5w Pmx 20 mg 95.491 In Dextrose/Water 1 100ml .bag @ 0.1 MCG/KG/MIN 2. 33 mls/hr IV .Q24H JANNA Rx #:[id number] Norepinephrine 16 mg In 71.959 80.704 Dextrose 5% in Water 250 ml @ Titrate IV .Q0M JANNA Rx#:[id number] Propofol 1,000 mg In 100.000 144.4 69.992 Empty Bag 1 bag @ Titrate IV .Q0M JANNA Rx#: [id number] Tube Feeding 770 1120 70 Other 1160 600 Output: Urine 570 738 75 Other: Voiding Method Indwelling Catheter Indwelling Catheter ABP, PAP, CO, CI - Last Documented Arterial Blood Pressure 129/44 Pulmonary Artery Pressure 40/15 Cardiac Output 5.0 Cardiac Index 2.7 - Exam General appearance: average body habitus, cooperative, no acute distress - EENT Eyes: anicteric sclerae, EOMI, PERRLA, dentition normal, normal appearance no vision in the left eye blurring of the cornea ENT: NA/AT, normal oropharynx, intubated and on mechanical ventilation - Respiratory Respiratory: bilateral: Scattered rhonchi, negative: diminished, dullness, rales , wheezing, - Cardiovascular Rhythm: Regularly irregular Heart sounds: normal: S1, S2 Abnormal Heart Sounds: no systolic murmur, no diastolic murmur, no rub, no S3 Gallop, no S4 Gallop, no click, no other - Gastrointestinal General gastrointestinal: normal bowel sounds, soft, Fong draining clear dark urine - Integumentary Integumentary: normal, normal turgor - Neurologic Neurologic: Patient sedated - Musculoskeletal Musculoskeletal: gait not assessed, patient sedated - Labs CBC & Chem 7: 12/07/17 04:05 12/07/17 04:05 Labs: Abnormal Lab Results - Last 24 Hours (Table) 12/06/17 12/06/17 12/06/17 Range/Units 10:26 12:19 14:10 RBC (4.30-5.90) m/uL Hgb (13.0-17.5) gm/dL Hct (39.0-53.0) % RDW (11.5-15.5) % Plt Count (150-450) k/uL Neutrophils # (1.3-7.7) k/uL Lymphocytes # (1.0-4.8) k/uL ABG pO2 (83-108) mmHg ABG O2 Saturation (94-97) % Chloride (98-107) mmol/L BUN (9-20) mg/dL Creatinine (0.66-1.25) mg/dL Glucose (74-99) mg/dL POC Glucose (mg/dL) 135 H 103 H 136 H (75-99) mg/dL Calcium (8.4-10.2) mg/dL Phosphorus (2.5-4.5) mg/dL Total Bilirubin (0.2-1.3) mg/dL AST (17-59) U/L ALT (21-72) U/L Alkaline Phosphatase (38-126) U/L Total Protein (6.3-8.2) g/dL Albumin (3.5-5.0) g/dL 12/06/17 12/06/17 12/06/17 Range/Units 16:30 18:28 20:14 RBC (4.30-5.90) m/uL Hgb (13.0-17.5) gm/dL Hct (39.0-53.0) % RDW (11.5-15.5) % Plt Count (150-450) k/uL Neutrophils # (1.3-7.7) k/uL Lymphocytes # (1.0-4.8) k/uL ABG pO2 (83-108) mmHg ABG O2 Saturation (94-97) % Chloride (98-107) mmol/L BUN (9-20) mg/dL Creatinine (0.66-1.25) mg/dL Glucose (74-99) mg/dL POC Glucose (mg/dL) 126 H 127 H 111 H (75-99) mg/dL Calcium (8.4-10.2) mg/dL Phosphorus (2.5-4.5) mg/dL Total Bilirubin (0.2-1.3) mg/dL AST (17-59) U/L ALT (21-72) U/L Alkaline Phosphatase (38-126) U/L Total Protein (6.3-8.2) g/dL Albumin (3.5-5.0) g/dL 12/06/17 12/06/17 12/07/17 Range/Units 22:15 23:47 02:24 RBC (4.30-5.90) m/uL Hgb (13.0-17.5) gm/dL Hct (39.0-53.0) % RDW (11.5-15.5) % Plt Count (150-450) k/uL Neutrophils # (1.3-7.7) k/uL Lymphocytes # (1.0-4.8) k/uL ABG pO2 (83-108) mmHg ABG O2 Saturation (94-97) % Chloride (98-107) mmol/L BUN (9-20) mg/dL Creatinine (0.66-1.25) mg/dL Glucose (74-99) mg/dL POC Glucose (mg/dL) 136 H 133 H 149 H (75-99) mg/dL Calcium (8.4-10.2) mg/dL Phosphorus (2.5-4.5) mg/dL Total Bilirubin (0.2-1.3) mg/dL AST (17-59) U/L ALT (21-72) U/L Alkaline Phosphatase (38-126) U/L Total Protein (6.3-8.2) g/dL Albumin (3.5-5.0) g/dL 12/07/17 12/07/17 12/07/17 Range/Units 03:51 04:05 04:05 RBC 2.73 L (4.30-5.90) m/uL Hgb 8.0 L (13.0-17.5) gm/dL Hct 25.2 L (39.0-53.0) % RDW 17.9 H (11.5-15.5) % Plt Count 88 L (150-450) k/uL Neutrophils # 8.7 H (1.3-7.7) k/uL Lymphocytes # 0.4 L (1.0-4.8) k/uL ABG pO2 (83-108) mmHg ABG O2 Saturation (94-97) % Chloride 109 H (98-107) mmol/L BUN 111 H* (9-20) mg/dL Creatinine 1.82 H (0.66-1.25) mg/dL Glucose 123 H (74-99) mg/dL POC Glucose (mg/dL) 134 H (75-99) mg/dL Calcium 6.8 L (8.4-10.2) mg/dL Phosphorus 4.8 H (2.5-4.5) mg/dL Total Bilirubin 2.4 H (0.2-1.3) mg/dL AST 147 H (17-59) U/L ALT 116 H (21-72) U/L Alkaline Phosphatase 246 H (38-126) U/L Total Protein 5.3 L (6.3-8.2) g/dL Albumin 1.8 L (3.5-5.0) g/dL 12/07/17 12/07/17 12/07/17 Range/Units 04:53 05:39 08:46 RBC (4.30-5.90) m/uL Hgb (13.0-17.5) gm/dL Hct (39.0-53.0) % RDW (11.5-15.5) % Plt Count (150-450) k/uL Neutrophils # (1.3-7.7) k/uL Lymphocytes # (1.0-4.8) k/uL ABG pO2 115 H (83-108) mmHg ABG O2 Saturation 98.7 H (94-97) % Chloride (98-107) mmol/L BUN (9-20) mg/dL Creatinine (0.66-1.25) mg/dL Glucose (74-99) mg/dL POC Glucose (mg/dL) 120 H 105 H (75-99) mg/dL Calcium (8.4-10.2) mg/dL Phosphorus (2.5-4.5) mg/dL Total Bilirubin (0.2-1.3) mg/dL AST (17-59) U/L ALT (21-72) U/L Alkaline Phosphatase (38-126) U/L Total Protein (6.3-8.2) g/dL Albumin (3.5-5.0) g/dL Assessment and Plan Plan: (1) Coronary artery disease and moderate mitral valve regurgitation Triple vessel disease noted on cardiac cath agent status post CABG and mitral valve repair on all 11/17/2017. Continue on aspirin, metoprolol. ICU administrative support specialist Dr. Paul/Delonte on consult. Continue current management per cardio vascular surgery team (2) Ischemic cardiomyopathy Has impaired ejection fraction of 38%, along with congestive heart failure. (3) Congestive heart failure with cardiomyopathy Acute on chronic systolic and diastolic heart failure (4) Hyperlipidemia Patient currently not on statins (5) GI prophylaxis (6) DVT prophylaxis (7) Steal syndrome, subclavian Carotid Dopplers 11/10/2017 shows no carotid stenosis however there is to and fro flow within the right vertebral artery could reflect manifestation of subclavian steal physiology prior to with continuous flow reversal. Currently asymptomatic continue to monitor (8) Pulmonary hypertension PILAR on 11/10/2017, moderate pulmonary hypertension also shows intact atrial septum with no evidence of [id number] shunt physiology, unable to locate pressures for right ventricular systolic 9. Thrombocytopenia secondary to consumption. Numbers improved and patient has been resumed back on aspirin, Plavix. Consult with oncology appreciated. Recommendations for platelet transfusion if less than 50,000. 10. Anemia, secondary to a combination of acute blood loss and renal failure with drop in hemoglobin from 10-6.5. Patient is status post multiple blood products. Ferrlecit infusion. 11. Acute kidney injury, acute tubular necrosis, oliguric secondary to hypotension, hypoperfusion. Consult with nephrology appreciated. Off Lasix drip. Status post IV sodium bicarb. 12. Post op atrial fibrillation, expected outcome of surgery. Patient has been on amiodarone and Lopressor. 13. Liver transaminitis and coagulopathy secondary to shock liver oncology consult appreciated. Continue to monitor closely. 14. Depression, situational. Zoloft was subsequently discontinued. 15. Acute delirium secondary to acute illness. 16. Hyperglycemia without diabetes. Patient resumed on insulin drip. Hemoglobin A1c is 6.7. 17. Cardiorenal syndrome and cardiogenic shock requiring IV vasopressors. 18. Diarrhea with possible acute GI bleed with acute blood loss anemia. Fecal management system was required. Stool for occult blood is positive. C diff toxin is negative on 2 specimens. Patient may need fecal management system replaced. 19. Acute hypoxic respiratory failure requiring reintubation and mechanical ventilation. Prognosis guarded. Discharge plan: To be determined Impression and plan of care have been directed as dictated by the signing physician. Amy Renteria nurse practitioner acting as scribe for signing physician.
--- NOTE | 2017-12-07 13:44 | P.PN ---
Subjective Progress Note Date: 12/07/17 Principal diagnosis: Triple-vessel coronary artery disease. Severe ischemic cardiomyopathy. Moderate mitral valve regurgitation. Mild tricuspid valve regurgitation. Diabetes mellitus with preoperative hemoglobin A1c 6.7%. Hyperlipidemia. Moderate to severe restrictive lung disease with preoperative FEV1 43% of predicted. Evidence of diffuse calcific coronary artery disease. 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 Previous tobacco dependence. POD #21 placement of preoperative intra-aortic balloon pump POD #20 quadruple coronary artery bypass grafting using the left internal mammary artery to the left anterior descending artery, reverse saphenous vein graft from the aorta to the diagonal artery, reverse saphenous vein graft from the aorta to the first obtuse marginal artery, reverse saphenous vein graft from the aorta to the posterior descending artery. Mitral valve repair using a complete ring annuloplasty with a 30 mm Kapoor IMR ring. Exclusion of the left atrial appendage using a 35 mm Atriclip. Intraoperative transesophageal echocardiogram and epi-aortic scanning. Intraoperative graft flow measurements using the [employer] system. Post operative normocytic, normochromic anemia, an expected outcome of surgery. Postoperative thrombocytopenia, an expected outcome of surgery. Postoperative atrial fibrillation, an expected outcome of surgery. Postoperative elevated transaminases, an unexpected outcome of surgery, likely secondary to low flow state post surgery. Postoperative acute kidney injury, an unexpected outcome of surgery, likely secondary to low flow state post surgery. Postoperative acute metabolic acidosis, lactic acidosis, reintubation, an unexpected outcome. Postoperative cardiogenic shock, an unexpected outcome. Postoperative hypernatremia, an unexpected outcome. Acute hypoxemic respiratory failure requiring a second reintubation, an unexpected outcome. Patient remains intubated and sedated. Dobbhoff was placed on 12/03/2017, tube feedings and free water flushes continue. Patient continues on levo, Midodrin was increased. Primacor was discontinued yesterday. Urine output was 35-100 mL /h overnight. His BUN this morning is 111 from 108, creatinine is 1.82 up from 1.62. He was started on IV Lasix yesterday at 40 mg every 12 hours. He is being tube fed at goal of 70 mL per hour with free water flushes, changed to 300 mL every 6 hours. Pre-albumin is less than 5.0. Diarrhea continues. Liver enzymes continue to improve. Hemaglobin this morning is 8.0 from 7.8, transfusion of 1 unit packed red blood cells Wednesday. White blood cell count has decreased 9.9 from 10.5, Zosyn discontinued yesterday, platelet count has decreased today to 88 from 94. He is rapid atrial fibrillation on telemetry with heart rate in the low 100s. He received IV loading doses of digoxin yesterday, to be continued on daily maintenance therapy. He remains critical, prognosis is guarded. His has been updated daily, extensive discussion was had with his today. She does state that his wishes were to never receive a tracheostomy and PEG tube placement, she has been willing to consider trach and PEG for short-term if he shows significant improvement, however she does state that even if she does agree that he would not want to be transferred to a facility with long-term vent management capabilities. Objective - Vital Signs Vital signs: Vital Signs Temp 102.2 F H 12/07/17 10:00 Pulse 90 12/07/17 11:48 Resp 31 H 12/07/17 11:00 BP 116/61 12/06/17 19:00 Pulse Ox 97 12/07/17 11:00 Intake & Output 12/06/17 12/07/17 12/07/17 18:59 06:59 18:59 Intake Total 2548.490 2239.304 760.335 Output Total 570 738 300 Balance 6256.098 9052.304 460.335 Weight 91.1 kg 91.1 kg Intake: IV 335.6 276 115 D5w with KCl 20 Meq/l 1, 295 240 100 000 ml @ 20 mls/hr IV . Q24H [facility] Rx#:[id number] Milrinone-D5w Pmx 20 mg 4.6 In Dextrose/Water 1 100ml .bag @ 0.1 MCG/KG/MIN 2. 33 mls/hr IV .Q24H [facility] Rx #:[id number] Pressure Bags 36 36 15 Intake, IV Titration 282.890 243.304 175.335 Amount Insulin Regular 100 unit 15.44 18.2 26.46 In Sodium Chloride 0.9% 100 ml @ Per Protocol IV .Q0M [facility] Rx#:[id number] Milrinone-D5w Pmx 20 mg 95.491 In Dextrose/Water 1 100ml .bag @ 0.1 MCG/KG/MIN 2. 33 mls/hr IV .Q24H [facility] Rx #:[id number] Norepinephrine 16 mg In 71.959 80.704 48.875 Dextrose 5% in Water 250 ml @ Titrate IV .Q0M [facility] Rx#:[id number] Propofol 1,000 mg In 100.000 144.4 100.000 Empty Bag 1 bag @ Titrate IV .Q0M [facility] Rx#: [id number] Oral 120 Tube Feeding 770 1120 350 Other 1160 600 Output: Urine 570 738 300 Other: Voiding Method Indwelling Catheter Indwelling Catheter Indwelling Catheter ABP, PAP, CO, CI - Last Documented Arterial Blood Pressure 133/55 Pulmonary Artery Pressure 40/15 Cardiac Output 5.0 Cardiac Index 2.7 - Constitutional General appearance: Present: no acute distress - Respiratory Details: Lungs sounds diminished bilaterally with scattered rhonchi. Respirations even, nonlabored on mechanical ventilation. Current settings assist control mode, FiO2 50%, tidal volume 450, respiratory rate 22, PEEP 5. ABGs this morning 7.37 /38/115/22/98%/-3.6. 8.0 ET tube present, 24 at the lip. - Cardiovascular Details: S1, S2 present. Tachy, irregular rate and rhythm, A. fib RVR on telemetry. Sternum stable. A/V epicardial pacemaker wires present, grounded. Palpable peripheral pulses bilaterally. Bilateral lower extremity, scrotal edema present. Right radial arterial line, left brachial PICC line present. Levo being titrated. Heart hugger, antiembolism stockings, SCDs present. - Gastrointestinal Gastrointestinal Comment(s): Abdomen soft, nontender, nondistended. Active bowel sounds present 4 quadrants. Dobbhoff present. Vital tube feedings infusing at goal of 70 mL per hour. Fecal management system present, positive diarrhea. - Genitourinary Genitourinary Comment(s): Fong present draining clear yellow urine. Output 35-100 ml/hr overnight. - Integumentary Integumentary Comment(s): Skin warm and dry. Sternal incision well approximated and covered with dry intact dressing. Left lower extremity EVH site well approximated. Stage II pressure ulcer to coccyx, covered by Optisol foam dressing. - Neurologic Neurologic Comment(s): Current sedated on mechanical ventilation. Patient does not follow commands at all off sedation for sedation holiday. - Musculoskeletal Musculoskeletal: Present: generalized weakness - Allied health notes Allied health notes reviewed: nursing - Labs CBC & Chem 7: 12/07/17 04:05 12/07/17 04:05 Labs: Abnormal Lab Results - Last 24 Hours (Table) 12/06/17 12/06/17 12/06/17 Range/Units 14:10 16:30 18:28 RBC (4.30-5.90) m/uL Hgb (13.0-17.5) gm/dL Hct (39.0-53.0) % RDW (11.5-15.5) % Plt Count (150-450) k/uL Neutrophils # (1.3-7.7) k/uL Lymphocytes # (1.0-4.8) k/uL ABG pO2 (83-108) mmHg ABG O2 Saturation (94-97) % Chloride (98-107) mmol/L BUN (9-20) mg/dL Creatinine (0.66-1.25) mg/dL Glucose (74-99) mg/dL POC Glucose (mg/dL) 136 H 126 H 127 H (75-99) mg/dL Calcium (8.4-10.2) mg/dL Phosphorus (2.5-4.5) mg/dL Total Bilirubin (0.2-1.3) mg/dL AST (17-59) U/L ALT (21-72) U/L Alkaline Phosphatase (38-126) U/L Total Protein (6.3-8.2) g/dL Albumin (3.5-5.0) g/dL Urine Protein (Negative) Urine Blood (Negative) Ur Leukocyte Esterase (Negative) Urine RBC (0-5) /hpf Urine WBC (0-5) /hpf Urine Bacteria (None) /hpf Hyaline Casts (0-2) /lpf Urine Mucus (None) /hpf 12/06/17 12/06/17 12/06/17 Range/Units 20:14 22:15 23:47 RBC (4.30-5.90) m/uL Hgb (13.0-17.5) gm/dL Hct (39.0-53.0) % RDW (11.5-15.5) % Plt Count (150-450) k/uL Neutrophils # (1.3-7.7) k/uL Lymphocytes # (1.0-4.8) k/uL ABG pO2 (83-108) mmHg ABG O2 Saturation (94-97) % Chloride (98-107) mmol/L BUN (9-20) mg/dL Creatinine (0.66-1.25) mg/dL Glucose (74-99) mg/dL POC Glucose (mg/dL) 111 H 136 H 133 H (75-99) mg/dL Calcium (8.4-10.2) mg/dL Phosphorus (2.5-4.5) mg/dL Total Bilirubin (0.2-1.3) mg/dL AST (17-59) U/L ALT (21-72) U/L Alkaline Phosphatase (38-126) U/L Total Protein (6.3-8.2) g/dL Albumin (3.5-5.0) g/dL Urine Protein (Negative) Urine Blood (Negative) Ur Leukocyte Esterase (Negative) Urine RBC (0-5) /hpf Urine WBC (0-5) /hpf Urine Bacteria (None) /hpf Hyaline Casts (0-2) /lpf Urine Mucus (None) /hpf 12/07/17 12/07/17 12/07/17 Range/Units 02:24 03:51 04:05 RBC (4.30-5.90) m/uL Hgb (13.0-17.5) gm/dL Hct (39.0-53.0) % RDW (11.5-15.5) % Plt Count (150-450) k/uL Neutrophils # (1.3-7.7) k/uL Lymphocytes # (1.0-4.8) k/uL ABG pO2 (83-108) mmHg ABG O2 Saturation (94-97) % Chloride 109 H (98-107) mmol/L BUN 111 H* (9-20) mg/dL Creatinine 1.82 H (0.66-1.25) mg/dL Glucose 123 H (74-99) mg/dL POC Glucose (mg/dL) 149 H 134 H (75-99) mg/dL Calcium 6.8 L (8.4-10.2) mg/dL Phosphorus 4.8 H (2.5-4.5) mg/dL Total Bilirubin 2.4 H (0.2-1.3) mg/dL AST 147 H (17-59) U/L ALT 116 H (21-72) U/L Alkaline Phosphatase 246 H (38-126) U/L Total Protein 5.3 L (6.3-8.2) g/dL Albumin 1.8 L (3.5-5.0) g/dL Urine Protein (Negative) Urine Blood (Negative) Ur Leukocyte Esterase (Negative) Urine RBC (0-5) /hpf Urine WBC (0-5) /hpf Urine Bacteria (None) /hpf Hyaline Casts (0-2) /lpf Urine Mucus (None) /hpf 12/07/17 12/07/17 12/07/17 Range/Units 04:05 04:53 05:39 RBC 2.73 L (4.30-5.90) m/uL Hgb 8.0 L (13.0-17.5) gm/dL Hct 25.2 L (39.0-53.0) % RDW 17.9 H (11.5-15.5) % Plt Count 88 L (150-450) k/uL Neutrophils # 8.7 H (1.3-7.7) k/uL Lymphocytes # 0.4 L (1.0-4.8) k/uL ABG pO2 115 H (83-108) mmHg ABG O2 Saturation 98.7 H (94-97) % Chloride (98-107) mmol/L BUN (9-20) mg/dL Creatinine (0.66-1.25) mg/dL Glucose (74-99) mg/dL POC Glucose (mg/dL) 120 H (75-99) mg/dL Calcium (8.4-10.2) mg/dL Phosphorus (2.5-4.5) mg/dL Total Bilirubin (0.2-1.3) mg/dL AST (17-59) U/L ALT (21-72) U/L Alkaline Phosphatase (38-126) U/L Total Protein (6.3-8.2) g/dL Albumin (3.5-5.0) g/dL Urine Protein (Negative) Urine Blood (Negative) Ur Leukocyte Esterase (Negative) Urine RBC (0-5) /hpf Urine WBC (0-5) /hpf Urine Bacteria (None) /hpf Hyaline Casts (0-2) /lpf Urine Mucus (None) /hpf 12/07/17 12/07/17 12/07/17 Range/Units 08:46 10:30 11:20 RBC (4.30-5.90) m/uL Hgb (13.0-17.5) gm/dL Hct (39.0-53.0) % RDW (11.5-15.5) % Plt Count (150-450) k/uL Neutrophils # (1.3-7.7) k/uL Lymphocytes # (1.0-4.8) k/uL ABG pO2 (83-108) mmHg ABG O2 Saturation (94-97) % Chloride (98-107) mmol/L BUN (9-20) mg/dL Creatinine (0.66-1.25) mg/dL Glucose (74-99) mg/dL POC Glucose (mg/dL) 105 H 122 H (75-99) mg/dL Calcium (8.4-10.2) mg/dL Phosphorus (2.5-4.5) mg/dL Total Bilirubin (0.2-1.3) mg/dL AST (17-59) U/L ALT (21-72) U/L Alkaline Phosphatase (38-126) U/L Total Protein (6.3-8.2) g/dL Albumin (3.5-5.0) g/dL Urine Protein 1+ H (Negative) Urine Blood Large H (Negative) Ur Leukocyte Esterase Moderate H (Negative) Urine RBC >182 H (0-5) /hpf Urine WBC 21 H (0-5) /hpf Urine Bacteria Occasional H (None) /hpf Hyaline Casts 17 H (0-2) /lpf Urine Mucus Rare H (None) /hpf 12/07/17 Range/Units 12:12 RBC (4.30-5.90) m/uL Hgb (13.0-17.5) gm/dL Hct (39.0-53.0) % RDW (11.5-15.5) % Plt Count (150-450) k/uL Neutrophils # (1.3-7.7) k/uL Lymphocytes # (1.0-4.8) k/uL ABG pO2 (83-108) mmHg ABG O2 Saturation (94-97) % Chloride (98-107) mmol/L BUN (9-20) mg/dL Creatinine (0.66-1.25) mg/dL Glucose (74-99) mg/dL POC Glucose (mg/dL) 122 H (75-99) mg/dL Calcium (8.4-10.2) mg/dL Phosphorus (2.5-4.5) mg/dL Total Bilirubin (0.2-1.3) mg/dL AST (17-59) U/L ALT (21-72) U/L Alkaline Phosphatase (38-126) U/L Total Protein (6.3-8.2) g/dL Albumin (3.5-5.0) g/dL Urine Protein (Negative) Urine Blood (Negative) Ur Leukocyte Esterase (Negative) Urine RBC (0-5) /hpf Urine WBC (0-5) /hpf Urine Bacteria (None) /hpf Hyaline Casts (0-2) /lpf Urine Mucus (None) /hpf Microbiology - Last 24 Hours (Table) 12/06/17 22:12 Stool Culture - Preliminary Stool - Imaging and Cardiology Chest x-ray: report reviewed, image reviewed Assessment and Plan (1) Congestive heart failure with cardiomyopathy Current Visit: Yes Status: Chronic Code(s): I50.9 - HEART FAILURE, UNSPECIFIED; I42.9 - CARDIOMYOPATHY, UNSPECIFIED SNOMED Code(s): 32457390 (2) Ischemic cardiomyopathy Current Visit: Yes Status: Acute Code(s): I25.5 - ISCHEMIC CARDIOMYOPATHY SNOMED Code(s): 705608677 (3) Coronary artery disease Current Visit: Yes Status: Chronic Code(s): I25.10 - ATHSCL HEART DISEASE OF [place] CORONARY ARTERY W/O ANG PCTRS SNOMED Code(s): 31403838 (4) Diabetes mellitus Current Visit: Yes Status: Chronic Code(s): E11.9 - TYPE 2 DIABETES MELLITUS WITHOUT COMPLICATIONS SNOMED Code(s): 35924001 (5) Hyperlipidemia Current Visit: Yes Status: Chronic Code(s): E78.5 - HYPERLIPIDEMIA, UNSPECIFIED SNOMED Code(s): 08748839 (6) Mitral regurgitation Current Visit: Yes Status: Chronic Code(s): I34.0 - NONRHEUMATIC MITRAL ( VALVE) INSUFFICIENCY SNOMED Code(s): 31434147 (7) History of myocardial infarction Current Visit: No Status: Resolved Code(s): I25.2 - OLD MYOCARDIAL INFARCTION SNOMED Code(s): 706082929 (8) Tobacco dependence in remission Current Visit: No Status: Resolved Code(s): F17.201 - NICOTINE DEPENDENCE, UNSPECIFIED, IN REMISSION SNOMED Code(s): 605334499 Plan: 1. Continue low-dose aspirin, Plavix, statin, subcu heparin, beta michelle. 2. Continue amiodarone at 200 mg daily for A. fib prophylaxis. Continue digoxin. Digoxin level in the morning. 3. Pancultures re-drawn as patient's temperature elevated to 102.2 Fahrenheit. 4. Continue tube feedings per dietitian's recommendations. Need to readdress true goals as preop albumin is < 5. 5. D5W decreased to KVO. Free water flushes 300 mL every 6 hours per nephrology recommendations. 6. Wean levo as tolerated. Wean propofol as tolerated. 7. Will increase Lasix 40 mg IV push to every 8 hours per nephrology recommendations. 8. Keep Fong catheter for strict accurate intake and output. Fong catheter changed 11/27/17. 9. Ventilator management, bronchodilators per pulmonology. 10. Will monitor daily labs and x-rays. 11. Antibiotics discontinued. 12. Pain control with current medication regimen. 13. GI/DVT prophylaxis. 14. Insulin drip/diabetic management per primary care service. 15. Continue FMS for liquid stools. 16. Continue full CODE STATUS at this time. 17. Continued recommendations based on patient's progress. Time with Patient: Greater than 30
[2017-12-07 13:49] LABS: Glucose,Whole Blood 133 mg/dL (75-99)
[2017-12-07] MEDS ORDERED: cefTRIAXone IN SWFI 2,000 MG/20 ML SYRINGE IVP SCH (14:00)
[2017-12-07 16:06] LABS: Glucose,Whole Blood 140 mg/dL (75-99)
[2017-12-07 18:58] LABS: Glucose,Whole Blood 145 mg/dL (75-99)
[2017-12-07] MEDS: ATORVASTATIN 40 MG TAB PO SCH (20:00)
[2017-12-07] MEDS: prednisoLONE ACETATE 1% OPHTH DROPS 5 ML BTL LEFT EYE SCH (20:00)
[2017-12-07] MEDS: ERYTHROMYCIN 5 MG/GM OPHTH OINT 3.5 GM TUBE LEFT EYE SCH (20:01)
[2017-12-07 20:26] LABS: Glucose,Whole Blood 147 mg/dL (75-99)
--- NOTE | 2017-12-07 20:28 | P.PN ---
Subjective Progress Note Date: 12/07/17 72-year-old male presented to Hospital now 17 days ago with significant increase in shortness of breath, dyspnea on exertion as well as significant mitral valve regurgitation.. There was evidence of three-vessel coronary disease with severe ischemic cardiomyopathy with the patient on 2017 was taken to the operating room for the coronary artery bypass grafting procedure, and mitral valve repair. Atrial appendage was also repaired. The patient has had a complex hospital stay with extubation and reintubation now on 2 events. This had persistent respiratory failure. There was difficulties with feeding, the family does not want tracheostomy and PEG tube placement. Gastroenterology was consulted and they failed placement of Dobbhoff tube, per thoracic surgery was able to place the tube for nutritional support. Infectious diseases consultation is requested regarding the Klebsiella oxytoca isolated from his sputum several days prior, is being treated with piperacillin tazobactam. The patient has persistent respiratory failure requiring mechanical ventilation as well as significant leukocytosis that has worsened over the last day. Patient also on the 16 and a low-grade fever which increased the concerns. At this time. Information will be coming from the chart the patient is intubated and unable to communicate with the observer. The patient had attempts for feeding tube placement developed respiratory compromise and did require reintubation and mechanical ventilation 12/06/2017 patient remains intubated sedated and mechanically ventilated. Staff relates he continues to have significant amounts of diarrhea. C. diff is negative on 3 events. Fecal management system is in place. His extensive edema continues, there is extensive scrotal edema with some breakdown of the skin. 12/07/2017 COLUMNIST related to fever 102.2, diarrhea less, patient without significant change, contemplation for trach and peg. Parasite antigens are negative. Objective - Vital Signs Vital signs: Vital Signs Temp 100.4 F H 12/07/17 16:00 Pulse 100 12/07/17 19:00 Resp 29 H 12/07/17 19:00 BP 134/57 12/07/17 19:00 Pulse Ox 100 12/07/17 19:00 Intake & Output 12/07/17 12/07/17 12/08/17 06:59 18:59 06:59 Intake Total 2239.304 1700.777 Output Total 738 1030 Balance 1501.304 670.777 Weight 91.1 kg 91.1 kg Intake: IV 276 299 D5w with KCl 20 Meq/l 1, 240 260 000 ml @ 20 mls/hr IV . Q24H JANNA Rx#:[id number] Pressure Bags 36 39 Intake, IV Titration 243.304 251.777 Amount Insulin Regular 100 unit 18.2 30.814 In Sodium Chloride 0.9% 100 ml @ Per Protocol IV .Q0M JANNA Rx#:[id number] Norepinephrine 16 mg In 80.704 48.875 Dextrose 5% in Water 250 ml @ Titrate IV .Q0M JANNA Rx#:[id number] Norepinephrine 16 mg In 37.841 Sodium Chloride 0.9% 250 ml @ Titrate IV .Q0M JANNA Rx#:[id number] Propofol 1,000 mg In 144.4 134.247 Empty Bag 1 bag @ Titrate IV .Q0M JANNA Rx#: [id number] Oral 240 Tube Feeding 1120 910 Other 600 Output: Urine 738 630 Stool 400 Other: Voiding Method Indwelling Catheter Indwelling Catheter ABP, PAP, CO, CI - Last Documented Arterial Blood Pressure 120/50 Pulmonary Artery Pressure 40/15 Cardiac Output 5.0 Cardiac Index 2.7 - Exam 72-year-old male who is of an appropriate build,is intubated, mechanically ventilated and sedated. Dobbhoff has been placed. HEENT: Anicteric conjunctiva are pink and moist nasal mucosa grossly intact without significant lesions, there is no thrush that he be seen around the oral endotracheal and Dobbhoff tube Neck: The neck is supple without significant lymphadenopathy or thyromegaly. Lungs: There is symmetrical air entry. There are bibasilar crackles there is not significant wheezing being noted Heart: Regular rate and rhythm with an audible S1-S2, soft S4 no severe murmur click or rubs audible Abdomen: Positive bowel sounds soft and nontender without palpable masses or organomegaly. There was no guarding or rebound. Extremities: The extremities have some generalized edema but no significant open lesions are seen her some minimal oozing from the right brachial arterial line Skin patient has minimal oozing from the multiple sites from the anterior chest wall from the surgery and the tubes nothing is purulent and no associated erythema around any of these sites.the scrotum is grossly swollen and very base is now had some splitting of the skin with some oozing occurring. Neuro: sedated - Labs CBC & Chem 7: 12/07/17 04:05 12/07/17 04:05 Labs: Abnormal Lab Results - Last 24 Hours (Table) 12/06/17 12/06/17 12/07/17 Range/Units 22:15 23:47 02:24 RBC (4.30-5.90) m/uL Hgb (13.0-17.5) gm/dL Hct (39.0-53.0) % RDW (11.5-15.5) % Plt Count (150-450) k/uL Neutrophils # (1.3-7.7) k/uL Lymphocytes # (1.0-4.8) k/uL ABG pO2 (83-108) mmHg ABG O2 Saturation (94-97) % Chloride (98-107) mmol/L BUN (9-20) mg/dL Creatinine (0.66-1.25) mg/dL Glucose (74-99) mg/dL POC Glucose (mg/dL) 136 H 133 H 149 H (75-99) mg/dL Calcium (8.4-10.2) mg/dL Phosphorus (2.5-4.5) mg/dL Total Bilirubin (0.2-1.3) mg/dL AST (17-59) U/L ALT (21-72) U/L Alkaline Phosphatase (38-126) U/L Total Protein (6.3-8.2) g/dL Albumin (3.5-5.0) g/dL Urine Protein (Negative) Urine Blood (Negative) Ur Leukocyte Esterase (Negative) Urine RBC (0-5) /hpf Urine WBC (0-5) /hpf Urine Bacteria (None) /hpf Hyaline Casts (0-2) /lpf Urine Mucus (None) /hpf 12/07/17 12/07/17 12/07/17 Range/Units 03:51 04:05 04:05 RBC 2.73 L (4.30-5.90) m/uL Hgb 8.0 L (13.0-17.5) gm/dL Hct 25.2 L (39.0-53.0) % RDW 17.9 H (11.5-15.5) % Plt Count 88 L (150-450) k/uL Neutrophils # 8.7 H (1.3-7.7) k/uL Lymphocytes # 0.4 L (1.0-4.8) k/uL ABG pO2 (83-108) mmHg ABG O2 Saturation (94-97) % Chloride 109 H (98-107) mmol/L BUN 111 H* (9-20) mg/dL Creatinine 1.82 H (0.66-1.25) mg/dL Glucose 123 H (74-99) mg/dL POC Glucose (mg/dL) 134 H (75-99) mg/dL Calcium 6.8 L (8.4-10.2) mg/dL Phosphorus 4.8 H (2.5-4.5) mg/dL Total Bilirubin 2.4 H (0.2-1.3) mg/dL AST 147 H (17-59) U/L ALT 116 H (21-72) U/L Alkaline Phosphatase 246 H (38-126) U/L Total Protein 5.3 L (6.3-8.2) g/dL Albumin 1.8 L (3.5-5.0) g/dL Urine Protein (Negative) Urine Blood (Negative) Ur Leukocyte Esterase (Negative) Urine RBC (0-5) /hpf Urine WBC (0-5) /hpf Urine Bacteria (None) /hpf Hyaline Casts (0-2) /lpf Urine Mucus (None) /hpf 12/07/17 12/07/17 12/07/17 Range/Units 04:53 05:39 08:46 RBC (4.30-5.90) m/uL Hgb (13.0-17.5) gm/dL Hct (39.0-53.0) % RDW (11.5-15.5) % Plt Count (150-450) k/uL Neutrophils # (1.3-7.7) k/uL Lymphocytes # (1.0-4.8) k/uL ABG pO2 115 H (83-108) mmHg ABG O2 Saturation 98.7 H (94-97) % Chloride (98-107) mmol/L BUN (9-20) mg/dL Creatinine (0.66-1.25) mg/dL Glucose (74-99) mg/dL POC Glucose (mg/dL) 120 H 105 H (75-99) mg/dL Calcium (8.4-10.2) mg/dL Phosphorus (2.5-4.5) mg/dL Total Bilirubin (0.2-1.3) mg/dL AST (17-59) U/L ALT (21-72) U/L Alkaline Phosphatase (38-126) U/L Total Protein (6.3-8.2) g/dL Albumin (3.5-5.0) g/dL Urine Protein (Negative) Urine Blood (Negative) Ur Leukocyte Esterase (Negative) Urine RBC (0-5) /hpf Urine WBC (0-5) /hpf Urine Bacteria (None) /hpf Hyaline Casts (0-2) /lpf Urine Mucus (None) /hpf 12/07/17 12/07/17 12/07/17 Range/Units 10:30 11:20 12:12 RBC (4.30-5.90) m/uL Hgb (13.0-17.5) gm/dL Hct (39.0-53.0) % RDW (11.5-15.5) % Plt Count (150-450) k/uL Neutrophils # (1.3-7.7) k/uL Lymphocytes # (1.0-4.8) k/uL ABG pO2 (83-108) mmHg ABG O2 Saturation (94-97) % Chloride (98-107) mmol/L BUN (9-20) mg/dL Creatinine (0.66-1.25) mg/dL Glucose (74-99) mg/dL POC Glucose (mg/dL) 122 H 122 H (75-99) mg/dL Calcium (8.4-10.2) mg/dL Phosphorus (2.5-4.5) mg/dL Total Bilirubin (0.2-1.3) mg/dL AST (17-59) U/L ALT (21-72) U/L Alkaline Phosphatase (38-126) U/L Total Protein (6.3-8.2) g/dL Albumin (3.5-5.0) g/dL Urine Protein 1+ H (Negative) Urine Blood Large H (Negative) Ur Leukocyte Esterase Moderate H (Negative) Urine RBC >182 H (0-5) /hpf Urine WBC 21 H (0-5) /hpf Urine Bacteria Occasional H (None) /hpf Hyaline Casts 17 H (0-2) /lpf Urine Mucus Rare H (None) /hpf 12/07/17 12/07/17 12/07/17 Range/Units 13:48 16:05 18:57 RBC (4.30-5.90) m/uL Hgb (13.0-17.5) gm/dL Hct (39.0-53.0) % RDW (11.5-15.5) % Plt Count (150-450) k/uL Neutrophils # (1.3-7.7) k/uL Lymphocytes # (1.0-4.8) k/uL ABG pO2 (83-108) mmHg ABG O2 Saturation (94-97) % Chloride (98-107) mmol/L BUN (9-20) mg/dL Creatinine (0.66-1.25) mg/dL Glucose (74-99) mg/dL POC Glucose (mg/dL) 133 H 140 H 145 H (75-99) mg/dL Calcium (8.4-10.2) mg/dL Phosphorus (2.5-4.5) mg/dL Total Bilirubin (0.2-1.3) mg/dL AST (17-59) U/L ALT (21-72) U/L Alkaline Phosphatase (38-126) U/L Total Protein (6.3-8.2) g/dL Albumin (3.5-5.0) g/dL Urine Protein (Negative) Urine Blood (Negative) Ur Leukocyte Esterase (Negative) Urine RBC (0-5) /hpf Urine WBC (0-5) /hpf Urine Bacteria (None) /hpf Hyaline Casts (0-2) /lpf Urine Mucus (None) /hpf Microbiology - Last 24 Hours (Table) 12/07/17 11:47 Sputum Culture - Preliminary Sputum 12/07/17 11:20 Urine Culture - Preliminary Urine,Catheterized 12/06/17 22:12 Stool Culture - Preliminary Stool Laboratory Results WBC 9.9 k/uL (3.8-10.6) 12/07/17 04:05 RBC 2.73 m/uL (4.30-5.90) L 12/07/17 04:05 Hgb 8.0 gm/dL (13.0-17.5) L 12/07/17 04:05 Hct 25.2 % (39.0-53.0) L 12/07/17 04:05 MCV 92.3 fL (80.0-100.0) 12/07/17 04:05 MCH 29.2 pg (25.0-35.0) 12/07/17 04:05 MCHC 31.6 g/dL (31.0-37.0) 12/07/17 04:05 RDW 17.9 % (11.5-15.5) H 12/07/17 04:05 Plt Count 88 k/uL (150-450) L 12/07/17 04:05 Neutrophils % 87 % 12/07/17 04:05 Neutrophils % (Manual) 93 % 12/02/17 04:26 Lymphocytes % 4 % 12/07/17 04:05 Lymphocytes % (Manual) 2 % 12/02/17 04:26 Monocytes % 4 % 12/07/17 04:05 Monocytes % (Manual) 5 % 12/02/17 04:26 Eosinophils % 2 % 12/07/17 04:05 Eosinophils % (Manual) 2 % 11/16/17 10:52 Basophils % 0 % 12/07/17 04:05 Neutrophils # 8.7 k/uL (1.3-7.7) H 12/07/17 04:05 Neutrophils # (Manual) 11.53 k/uL (1.3-7.7) H 12/02/17 04:26 Lymphocytes # 0.4 k/uL (1.0-4.8) L 12/07/17 04:05 Lymphocytes # (Manual) 0.25 k/uL (1.0-4.8) L 12/02/17 04:26 Monocytes # 0.4 k/uL (0-1.0) 12/07/17 04:05 Monocytes # (Manual) 0.62 k/uL (0-1.0) 12/02/17 04:26 Eosinophils # 0.2 k/uL (0-0.7) 12/07/17 04:05 Eosinophils # (Manual) 0.10 k/uL (0-0.7) 11/16/17 10:52 Basophils # 0.0 k/uL (0-0.2) 12/07/17 04:05 Nucleated RBCs 0 /100 WBC (0-0) 12/02/17 04:26 Manual Slide Review Performed 12/05/17 04:25 Large Platelets Present 12/05/17 04:25 Polychromasia Present 11/29/17 05:00 Hypochromasia Moderate 12/07/17 04:05 Hypochromasia (manual) Present 11/26/17 03:05 Poikilocytosis Slight 12/07/17 04:05 Poikilocytosis (manual Present 11/29/17 05:00 Anisocytosis Slight 12/07/17 04:05 Macrocytosis Slight 12/04/17 04:28 Target Cells Present 12/05/17 04:25 Ovalocytes Present 12/05/17 04:25 Crenated Cell Present 12/02/17 04:26 Fragmented RBCs Present 12/05/17 04:25 PT 11.8 sec (9.0-12.0) 11/29/17 05:00 INR 1.2 (<1.2) H 11/29/17 05:00 APTT 30.7 sec (22.0-30.0) H 11/29/17 05:00 Fibrinogen 522 mg/dL (200-500) H 11/22/17 18:20 Sample Site goff 12/07/17 04:53 ABG pH 7.37 (7.35-7.45) 12/07/17 04:53 ABG pCO2 38 mmHg (35-45) 12/07/17 04:53 ABG pO2 115 mmHg (83-108) H 12/07/17 04:53 ABG HCO3 22 mmol/L (21-25) 12/07/17 04:53 ABG Total CO2 23 mmol/L (19-24) 12/07/17 04:53 ABG O2 Saturation 98.7 % (94-97) H 12/07/17 04:53 ABG Base Excess -3.6 mmol/L 12/07/17 04:53 ABG Hematocrit 24 % (34.0-46.0) L 11/17/17 18:12 Joseluis Test Yes 12/07/17 04:53 ABG Sodium 141 mmol/L (135-146) 11/17/17 18:12 ABG Potassium 4.7 mmol/L (3.4-4.5) H 11/17/17 18:12 ABG Ionized Calcium 5.1 mg/dL (4.5-5.3) 11/17/17 18:12 ABG Glucose 165 mg/dL (75-99) H 11/17/17 18:12 ABG Lactic Acid 1.7 mmol/L (0.5-1.6) H 11/24/17 20:35 Hemoglobin 7.7 gm/dL (13.0-17.5) L 11/17/17 18:12 FiO2 50 % 12/07/17 04:53 Sodium 139 mmol/L (137-145) 12/07/17 04:05 Potassium 4.6 mmol/L (3.5-5.1) 12/07/17 04:05 Chloride 109 mmol/L (98-107) H 12/07/17 04:05 Carbon Dioxide 22 mmol/L (22-30) 12/07/17 04:05 Anion Gap 8 mmol/L 12/07/17 04:05 BUN 111 mg/dL (9-20) H* 12/07/17 04:05 Creatinine 1.82 mg/dL (0.66-1.25) H 12/07/17 04:05 Est GFR (CKD-EPI)AfAm 42 (>60 ml/min/1.73 sqM) 12/07/17 04:05 Est GFR (CKD-EPI)NonAf 36 (>60 ml/min/1.73 sqM) 12/07/17 04:05 Glucose 123 mg/dL (74-99) H 12/07/17 04:05 POC Glucose (mg/dL) 145 mg/dL (75-99) H 12/07/17 18:57 POC Glu [employer] Operator ID Marifer Bey 12/07/17 18:[address] Glu mg/dL 146 11/16/17 10:52 Hemoglobin A1c 6.7 % (4.0-6.0) H 11/16/17 10:52 Calcium 6.8 mg/dL (8.4-10.2) L 12/07/17 04:05 Ionized Calcium Leighann 4.5 mg/dL (4.5-5.3) 12/07/17 04:05 Phosphorus 4.8 mg/dL (2.5-4.5) H 12/07/17 04:05 Magnesium 2.0 mg/dL (1.6-2.3) 12/07/17 04:05 Iron 16 ug/dL (65-175) L 11/28/17 04:20 TIBC 208 ug/dL (228-460) L 11/28/17 04:20 Iron Saturation 7.69 (15.00-50.00) L 11/28/17 04:20 Ferritin 679.6 ng/mL (22.0-322.0) H 11/28/17 04:20 Total Bilirubin 2.4 mg/dL (0.2-1.3) H 12/07/17 04:05 AST 147 U/L (17-59) H 12/07/17 04:05 ALT 116 U/L (21-72) H 12/07/17 04:05 Alkaline Phosphatase 246 U/L (38-126) H 12/07/17 04:05 Ammonia 37 umol/L (<30) H 11/27/17 12:00 CK-MB (CK-2) 8.4 ng/mL (0.0-2.4) H* 11/27/17 04:05 Total Protein 5.3 g/dL (6.3-8.2) L 12/07/17 04:05 Albumin 1.8 g/dL (3.5-5.0) L 12/07/17 04:05 Prealbumin <5.0 mg/dL (18.0-42.0) L 12/01/17 05:00 Triglycerides 100 mg/dL (<150) 11/27/17 04:05 Cholesterol 68 mg/dL (<200) 11/27/17 04:05 LDL Cholesterol, Calc 36 mg/dL (0-99) 11/27/17 04:05 HDL Cholesterol 12 mg/dL (40-60) L 11/27/17 04:05 Procalcitonin 1.79 ng/mL (0.02-0.09) H 11/27/17 09:50 TSH 2.410 mIU/L (0.465-4.680) 11/16/17 10:52 Cortisol 25 ug/dL 12/07/17 08:45 Arterial Blood Potassium 4.7 mmol/L (3.4-4.5) H 11/17/17 18:12 Arterial Blood Glucose 165 mg/dL (75-99) H 11/17/17 18:12 Urine Color Yellow 12/07/17 11:20 Urine Appearance Cloudy (Clear) 12/07/17 11:20 Urine pH 5.0 (5.0-8.0) 12/07/17 11:20 Ur Specific [place] 1.013 (1.001-1.035) 12/07/17 11:20 Urine Protein 1+ (Negative) H 12/07/17 11:20 Urine Glucose (UA) Negative (Negative) 12/07/17 11:20 Urine Ketones Negative (Negative) 12/07/17 11:20 Urine Blood Large (Negative) H 12/07/17 11:20 Urine Nitrite Negative (Negative) 12/07/17 11:20 Urine Bilirubin Negative (Negative) 12/07/17 11:20 Urine Urobilinogen 3.0 mg/dL (<2.0) 12/07/17 11:20 Ur Leukocyte Esterase Moderate (Negative) H 12/07/17 11:20 Urine RBC >182 /hpf (0-5) H 12/07/17 11:20 Urine WBC 21 /hpf (0-5) H 12/07/17 11:20 Ur Squamous Epith Cells <1 /hpf (0-4) 12/07/17 11:20 Urine Bacteria Occasional /hpf (None) H 12/07/17 11:20 Hyaline Casts 17 /lpf (0-2) H 12/07/17 11:20 Urine Mucus Rare /hpf (None) H 12/07/17 11:20 Urine Sperm Many /hpf (None) H 11/22/17 20:10 Ur Random Sodium 12 mmol/L 11/22/17 20:09 Stool Occult Blood Positive (Negative) 11/24/17 09:10 Stl Cryptosporidium Ag Negative (Negative) 12/06/17 22:12 Stool Giardia Source Stool 12/06/17 22:12 Stl Giardia Antigen Negative (Negative) 12/06/17 22:12 Random Vancomycin 14.4 ug/mL 11/26/17 03:05 Heparin-Ind Plt Ab Scrn 0.129 OD (<0.4) 11/22/17 04:08 C. difficile (EIA) Intrp Negative (Negative) 12/05/17 15:30 Blood Type O Positive 12/05/17 11:00 Blood Type Recheck No 12/05/17 11:00 Antibody Screen NEGATIVE 12/05/17 11:00 Crossmatch See Detail 12/05/17 11:00 Transfuse Plasma 11/24/17 11/24/17 11:19 Transfuse Platelets 11/23/17 11/23/17 12:54 Spec Expiration Date 12/08/2017 - 229912/05/17 11:00 Microbiology 12/07/17 11:47 Sputum Sputum Culture - Preliminary 12/07/17 11:20 Urine,Catheterized Urine Culture - Preliminary 12/06/17 22:12 Stool Stool Culture - Preliminary 11/24/17 10:25 Blood Blood Culture - Final No Growth after 144 hours 11/24/17 10:51 Blood Blood Culture - Final No Growth after 144 hours 11/24/17 20:30 Sputum Gram Stain - Final 11/24/17 20:30 Sputum Sputum Culture - Final Klebsiella oxytoca 11/24/17 10:20 Urine,Catheterized Urine Culture - Final - Imaging and Cardiology Chest x-ray: report reviewed (no changes) Assessment and Plan (1) Gram-negative pneumonia Narrative/Plan: 72-year-old male presents to Hospital with progressive shortness of breath is evidence of extensive cardiomyopathy, coronary artery disease and mitral valve disease. He subsequently was taken to the operating room for coronary artery bypass grafting procedure as well as repair of the mitral valve. Is a difficult postoperative course in that he has had recurrent respiratory failure requiring reintubation now on the second event. The patient was not evidence of Klebsiella oxytoca pneumonia and treatment was begun with Zosyn which is an excellent choice for this isolated pathogen. The patient however is now had worsening of his respiratory status required reintubation and there has been some slight worsening of his leukocytosis that has been somewhat persistent. The this time it appears that the respiratory failure was related to attempts for feeding tube placement, and after intubation has had successful feeding tube placement. Hopefully with enhance nutrition there will be some further improvement of his status. The leukocytosis is likely reactionary at this time given the difficulties of reintubation. Would maintain current antibiotic therapy given that he is not having other acute changes. If leukocytosis worsens , or oxygenation declined with then consider change of antimicrobial therapy. Patient is developed diarrhea possibly related to his tube feeds, C. diff was sent and is negative at this time. Patient on specialty ICU bed for the stage II on the buttocks are being treated with the optifoam dressings 12/06/2017the patient is stable and indicated no significant worsening of his status. Gram-negative pneumonia as noted Klebsiella oxytoca found and responding well to current antibiotic therapy of Zosyn. Patient is having significant amounts of diarrhea, he has been tested 3 times and is negative for C. diff. We'll check for standard stool culture as well as antigen testing for Giardia and cryptosporidium. A dose of Imodium was given since he is C. diff negative.zinc may be applied to the scrotum to help with the tissue edema and splitting is occurring from the excessive edema. leukocytosis is now normalizing, will monitor and discontinue antibiotic therapy in the near future. 12/07/2017 patient now with 102 fever, cultures requested, Rocephin added pending culture results given prior klebsiella infection. Stool work up negative so far await stool culture.Less volume of stool today, monitor. Current Visit: Yes Status: Acute Code(s): J15.6 - PNEUMONIA DUE TO OTHER GRAM-NEGATIVE BACTERIA SNOMED Code(s): 751275096 (2) Congestive heart failure with cardiomyopathy and cardiomegaly Current Visit: Yes Status: Acute Code(s): I50.9 - HEART FAILURE, UNSPECIFIED ; I42.9 - CARDIOMYOPATHY, UNSPECIFIED; I51.7 - CARDIOMEGALY SNOMED Code(s): 379463737958220 (3) S/P mitral valve repair Current Visit: Yes Status: Acute Code(s): Z98.890 - OTHER SPECIFIED POSTPROCEDURAL STATES SNOMED Code(s): 254122201 (4) S/P CABG x 4 Current Visit: Yes Status: Acute Code(s): Z95.1 - PRESENCE OF AORTOCORONARY BYPASS GRAFT SNOMED Code(s): 180126138
[2017-12-07 21:59] LABS: Glucose,Whole Blood 154 mg/dL (75-99)
[2017-12-07 23:53] LABS: Glucose,Whole Blood 155 mg/dL (75-99)
[2017-12-08] MEDS: IPRATROPIUM-ALBUTEROL 3 ML NEB INHALATION SCH ×6 (00:08→20:25)
[2017-12-08] MEDS: INSULIN REGULAR 100 UNIT in SODIUM CHLORIDE 0.9% 100 ML IV SCH (00:30)
[2017-12-08] MEDS: PROPOFOL 1,000 MG in EMPTY BAG 1 BAG IV SCH ×3 (00:33→16:38)
[2017-12-08 01:53] LABS: Glucose,Whole Blood 199 mg/dL (75-99)
[2017-12-08 04:02] LABS: Glucose,Whole Blood 173 mg/dL (75-99)
--- NOTE | 2017-12-08 04:03 | XR ---
EXAMINATION TYPE: XR chest 1V portable DATE OF EXAM: 12/08/2017 COMPARISON: Yesterday HISTORY: Hypoxemia TECHNIQUE: Single frontal view of the chest is obtained. FINDINGS: Endotracheal tube is 4.5 cm from the daiana. There is bilateral pulmonary infiltrates and more on the left side. Heart is enlarged. There is blunting of costophrenic angles. There is probably congestive heart failure. There are sternal wires. There are chest leads. IMPRESSION: Congestive heart failure with pleural effusions. There is probably bilateral pneumonia. Chest appears the same or slightly worse than yesterday. RDS is possible.
[2017-12-08 04:18] LABS: Anisocytosis Slight; Basophils % (A) 0 %; Eosinophils # (A) 0.2 k/uL (0-0.7); Eosinophils % (A) 1 %; HCT 24.7 % (39.0-53.0); HGB 7.8 gm/dL (13.0-17.5); Hypochromasia Marked; Lymphocytes # (A) 0.5 k/uL (1.0-4.8); Lymphocytes % (A) 4 %; MCH 30.1 pg (25.0-35.0); MCHC 31.6 g/dL (31.0-37.0); MCV 95.1 fL (80.0-100.0); Macrocytosis Slight; Mean Platelet Volume 10.3; Monocytes # (A) 0.4 k/uL (0-1.0); Monocytes % (A) 3 %; Neutrophils # (A) 9.8 k/uL (1.3-7.7); Neutrophils % (A) 89 %; RBC 2.59 m/uL (4.30-5.90); RDW 18.6 % (11.5-15.5); WBC 11.1 k/uL (3.8-10.6)
[2017-12-08 04:25] LABS: Platelet Count 97 k/uL (150-450)
[2017-12-08 04:56] LABS: Albumin 1.9 g/dL (3.5-5.0); Calcium 6.7 mg/dL (8.4-10.2); Magnesium 2.1 mg/dL (1.6-2.3); Phosphorus 6.2 mg/dL (2.5-4.5); Potassium 5.1 mmol/L (3.5-5.1); Total Protein 5.3 g/dL (6.3-8.2)
[2017-12-08 05:17] LABS: ABG Base Excess -5.9 mmol/L; ABG HCO3 21 mmol/L (21-25); ABG Oxygen Saturation 87.9 % (94-97); ABG PCO2 46 mmHg (35-45); ABG PH 7.27 (7.35-7.45); ABG PO2 58 mmHg (83-108); ABG TCO2 23 mmol/L (19-24)
[2017-12-08] MEDS ORDERED: MEROPENEM 1 GM in SODIUM CHLORIDE 0.9% 100 ML IVPB STA (05:31)
[2017-12-08 06:01] LABS: Glucose,Whole Blood 182 mg/dL (75-99)
[2017-12-08 06:25] LABS: Digoxin 1.1 ng/mL
[2017-12-08] MEDS: LACTOBACILLUS ACIDOPH & BULGAR 1 EACH PACKET PO SCH ×4 (08:18→21:09)
[2017-12-08] MEDS: CLOPIDOGREL 75 MG TAB PO SCH (08:19)
[2017-12-08] MEDS: SERTRALINE 25 MG TAB PO SCH (08:19)
[2017-12-08] MEDS: MIDODRINE 5 MG TAB PO SCH ×3 (08:19→16:37)
[2017-12-08] MEDS: FERROUS SULFATE ORAL ELIXIR 300 MG/5 ML CUP PO SCH ×2 (08:19→16:39)
[2017-12-08] MEDS: ASCORBIC ACID 500 MG TAB PO SCH ×2 (08:20→16:37)
[2017-12-08] MEDS: HEPARIN SODIUM,PORCINE 5,000 UNIT/ML 1 ML VIAL SQ SCH ×2 (08:20→16:37)
[2017-12-08] MEDS: METOPROLOL TARTRATE 25 MG TAB PO SCH ×2 (08:20→21:09)
[2017-12-08] MEDS: PANTOPRAZOLE 40 MG/10 ML VIAL IVP SCH ×2 (08:20→21:36)
[2017-12-08] MEDS: ASPIRIN 81 MG PO SCH (08:20)
[2017-12-08] MEDS: FUROSEMIDE 10 MG/ML 4 ML VIAL IV SCH ×2 (08:21→16:37)
[2017-12-08 08:26] LABS: Glucose,Whole Blood 153 mg/dL (75-99)
[2017-12-08] MEDS: DIGOXIN 125 MCG TAB PO SCH (08:30)
--- NOTE | 2017-12-08 10:02 | P.PN ---
Subjective Progress Note Date: 12/08/17 Principal diagnosis: This is a 72-year-old male followed up for acute kidney injury, post CABG. He had coronary disease with severe ischemic cardiomyopathy, on 11/17/2017 was taken to the operating room for the coronary artery bypass grafting procedure, and mitral valve repair. Atrial appendage was also repaired. The patient has had a complex hospital stay with extubation and reintubation now on 2 events. He was reintubated because of decompensation on 12/02/2017. Currently he is obtunded sedated on the vent, his oxygen requirement is up from 50-80%, is on 4 mics of levo fed. His chest x-ray shows worsening. He has pneumonia this worsening. Remains in normal sinus rhythm though. Blood pressure is maintained in the 140-150 systolic range. His temperature is up to 102.2 yesterday but this morning is 98.5. His 24-hour intake and output are 3858 and 1382. He does have fair amount of diarrhea Objective - Vital Signs Vital signs: Vital Signs Temp 98.5 F 12/08/17 08:00 Pulse 89 12/08/17 08:30 Resp 27 H 12/08/17 08:30 BP 142/61 12/08/17 08:30 Pulse Ox 100 12/08/17 08:30 Intake & Output 12/07/17 12/08/17 12/08/17 18:59 06:59 18:59 Intake Total 9197.541 9186.857 184.320 Output Total 1030 352 Balance 340.331 1725.857 184.320 Weight 91.1 kg 92.1 kg 92.1 kg Intake: IV 299 276 D5w with KCl 20 Meq/l 1, 260 240 000 ml @ 20 mls/hr IV . Q24H JANNA Rx#:[id number] Pressure Bags 39 36 Intake, IV Titration 251.777 161.857 114.320 Amount Insulin Regular 100 unit 30.814 19.557 6.384 In Sodium Chloride 0.9% 100 ml @ Per Protocol IV .Q0M JANNA Rx#:[id number] Norepinephrine 16 mg In 48.875 Dextrose 5% in Water 250 ml @ Titrate IV .Q0M JANNA Rx#:[id number] Norepinephrine 16 mg In 37.841 81.456 22.500 Sodium Chloride 0.9% 250 ml @ Titrate IV .Q0M JANNA Rx#:[id number] Propofol 1,000 mg In 134.247 60.844 85.436 Empty Bag 1 bag @ Titrate IV .Q0M JANNA Rx#: [id number] Oral 240 Tube Feeding 910 1120 70 Other 600 Output: Urine 630 352 Stool 400 Other: Voiding Method Indwelling Catheter Indwelling Catheter ABP, PAP, CO, CI - Last Documented Arterial Blood Pressure 143/52 Pulmonary Artery Pressure 40/15 Cardiac Output 5.0 Cardiac Index 2.7 On examination his obtunded and unresponsive. Is on the vent on 80% FiO2. HEENT exam no JVP neck is supple is hard to his assess his his eyes are open but is not following commands. No facial asymmetry noted pupils are equal Lungs are diminished air entry bilaterally on the vent. Heart sounds are unremarkable. Abdomen is soft slightly distended there is abdominal wall edema. Extremity exam reveals 2+ edema. Neurologically obtunded. - Labs CBC & Chem 7: 12/08/17 04:00 12/08/17 04:00 Labs: Abnormal Lab Results - Last 24 Hours (Table) 12/07/17 12/07/17 12/07/17 Range/Units 08:45 10:30 11:20 WBC (3.8-10.6) k/uL RBC (4.30-5.90) m/uL Hgb (13.0-17.5) gm/dL Hct (39.0-53.0) % RDW (11.5-15.5) % Plt Count (150-450) k/uL Neutrophils # (1.3-7.7) k/uL Lymphocytes # (1.0-4.8) k/uL ABG pH (7.35-7.45) ABG pCO2 (35-45) mmHg ABG pO2 (83-108) mmHg ABG O2 Saturation (94-97) % Sodium (137-145) mmol/L Carbon Dioxide (22-30) mmol/L BUN (9-20) mg/dL Creatinine (0.66-1.25) mg/dL Glucose (74-99) mg/dL POC Glucose (mg/dL) 122 H (75-99) mg/dL Calcium (8.4-10.2) mg/dL Ionized Calcium Leighann (4.5-5.3) mg/dL Phosphorus (2.5-4.5) mg/dL Total Bilirubin (0.2-1.3) mg/dL AST (17-59) U/L ALT (21-72) U/L Alkaline Phosphatase (38-126) U/L Total Protein (6.3-8.2) g/dL Albumin (3.5-5.0) g/dL Prealbumin <5.0 L (18.0-42.0) mg/dL Urine Protein 1+ H (Negative) Urine Blood Large H (Negative) Ur Leukocyte Esterase Moderate H (Negative) Urine RBC >182 H (0-5) /hpf Urine WBC 21 H (0-5) /hpf Urine Bacteria Occasional H (None) /hpf Hyaline Casts 17 H (0-2) /lpf Urine Mucus Rare H (None) /hpf 12/07/17 12/07/17 12/07/17 Range/Units 12:12 13:48 16:05 WBC (3.8-10.6) k/uL RBC (4.30-5.90) m/uL Hgb (13.0-17.5) gm/dL Hct (39.0-53.0) % RDW (11.5-15.5) % Plt Count (150-450) k/uL Neutrophils # (1.3-7.7) k/uL Lymphocytes # (1.0-4.8) k/uL ABG pH (7.35-7.45) ABG pCO2 (35-45) mmHg ABG pO2 (83-108) mmHg ABG O2 Saturation (94-97) % Sodium (137-145) mmol/L Carbon Dioxide (22-30) mmol/L BUN (9-20) mg/dL Creatinine (0.66-1.25) mg/dL Glucose (74-99) mg/dL POC Glucose (mg/dL) 122 H 133 H 140 H (75-99) mg/dL Calcium (8.4-10.2) mg/dL Ionized Calcium Leighann (4.5-5.3) mg/dL Phosphorus (2.5-4.5) mg/dL Total Bilirubin (0.2-1.3) mg/dL AST (17-59) U/L ALT (21-72) U/L Alkaline Phosphatase (38-126) U/L Total Protein (6.3-8.2) g/dL Albumin (3.5-5.0) g/dL Prealbumin (18.0-42.0) mg/dL Urine Protein (Negative) Urine Blood (Negative) Ur Leukocyte Esterase (Negative) Urine RBC (0-5) /hpf Urine WBC (0-5) /hpf Urine Bacteria (None) /hpf Hyaline Casts (0-2) /lpf Urine Mucus (None) /hpf 12/07/17 12/07/17 12/07/17 Range/Units 18:57 20:08 21:57 WBC (3.8-10.6) k/uL RBC (4.30-5.90) m/uL Hgb (13.0-17.5) gm/dL Hct (39.0-53.0) % RDW (11.5-15.5) % Plt Count (150-450) k/uL Neutrophils # (1.3-7.7) k/uL Lymphocytes # (1.0-4.8) k/uL ABG pH (7.35-7.45) ABG pCO2 (35-45) mmHg ABG pO2 (83-108) mmHg ABG O2 Saturation (94-97) % Sodium (137-145) mmol/L Carbon Dioxide (22-30) mmol/L BUN (9-20) mg/dL Creatinine (0.66-1.25) mg/dL Glucose (74-99) mg/dL POC Glucose (mg/dL) 145 H 147 H 154 H (75-99) mg/dL Calcium (8.4-10.2) mg/dL Ionized Calcium Leighann (4.5-5.3) mg/dL Phosphorus (2.5-4.5) mg/dL Total Bilirubin (0.2-1.3) mg/dL AST (17-59) U/L ALT (21-72) U/L Alkaline Phosphatase (38-126) U/L Total Protein (6.3-8.2) g/dL Albumin (3.5-5.0) g/dL Prealbumin (18.0-42.0) mg/dL Urine Protein (Negative) Urine Blood (Negative) Ur Leukocyte Esterase (Negative) Urine RBC (0-5) /hpf Urine WBC (0-5) /hpf Urine Bacteria (None) /hpf Hyaline Casts (0-2) /lpf Urine Mucus (None) /hpf 12/07/17 12/08/17 12/08/17 Range/Units 23:51 01:51 03:57 WBC (3.8-10.6) k/uL RBC (4.30-5.90) m/uL Hgb (13.0-17.5) gm/dL Hct (39.0-53.0) % RDW (11.5-15.5) % Plt Count (150-450) k/uL Neutrophils # (1.3-7.7) k/uL Lymphocytes # (1.0-4.8) k/uL ABG pH (7.35-7.45) ABG pCO2 (35-45) mmHg ABG pO2 (83-108) mmHg ABG O2 Saturation (94-97) % Sodium (137-145) mmol/L Carbon Dioxide (22-30) mmol/L BUN (9-20) mg/dL Creatinine (0.66-1.25) mg/dL Glucose (74-99) mg/dL POC Glucose (mg/dL) 155 H 199 H 173 H (75-99) mg/dL Calcium (8.4-10.2) mg/dL Ionized Calcium Leighann (4.5-5.3) mg/dL Phosphorus (2.5-4.5) mg/dL Total Bilirubin (0.2-1.3) mg/dL AST (17-59) U/L ALT (21-72) U/L Alkaline Phosphatase (38-126) U/L Total Protein (6.3-8.2) g/dL Albumin (3.5-5.0) g/dL Prealbumin (18.0-42.0) mg/dL Urine Protein (Negative) Urine Blood (Negative) Ur Leukocyte Esterase (Negative) Urine RBC (0-5) /hpf Urine WBC (0-5) /hpf Urine Bacteria (None) /hpf Hyaline Casts (0-2) /lpf Urine Mucus (None) /hpf 12/08/17 12/08/17 12/08/17 Range/Units 04:00 04:00 05:12 WBC 11.1 H (3.8-10.6) k/uL RBC 2.59 L (4.30-5.90) m/uL Hgb 7.8 L (13.0-17.5) gm/dL Hct 24.7 L (39.0-53.0) % RDW 18.6 H (11.5-15.5) % Plt Count 97 L (150-450) k/uL Neutrophils # 9.8 H (1.3-7.7) k/uL Lymphocytes # 0.5 L (1.0-4.8) k/uL ABG pH 7.27 L (7.35-7.45) ABG pCO2 46 H (35-45) mmHg ABG pO2 58 L (83-108) mmHg ABG O2 Saturation 87.9 L (94-97) % Sodium 136 L (137-145) mmol/L Carbon Dioxide 21 L (22-30) mmol/L BUN 126 H* (9-20) mg/dL Creatinine 2.10 H (0.66-1.25) mg/dL Glucose 166 H (74-99) mg/dL POC Glucose (mg/dL) (75-99) mg/dL Calcium 6.7 L (8.4-10.2) mg/dL Ionized Calcium Leighann (4.5-5.3) mg/dL Phosphorus 6.2 H (2.5-4.5) mg/dL Total Bilirubin 2.0 H (0.2-1.3) mg/dL AST 230 H (17-59) U/L ALT 147 H (21-72) U/L Alkaline Phosphatase 317 H (38-126) U/L Total Protein 5.3 L (6.3-8.2) g/dL Albumin 1.9 L (3.5-5.0) g/dL Prealbumin (18.0-42.0) mg/dL Urine Protein (Negative) Urine Blood (Negative) Ur Leukocyte Esterase (Negative) Urine RBC (0-5) /hpf Urine WBC (0-5) /hpf Urine Bacteria (None) /hpf Hyaline Casts (0-2) /lpf Urine Mucus (None) /hpf 12/08/17 12/08/17 12/08/17 Range/Units 05:52 06:20 08:25 WBC (3.8-10.6) k/uL RBC (4.30-5.90) m/uL Hgb (13.0-17.5) gm/dL Hct (39.0-53.0) % RDW (11.5-15.5) % Plt Count (150-450) k/uL Neutrophils # (1.3-7.7) k/uL Lymphocytes # (1.0-4.8) k/uL ABG pH (7.35-7.45) ABG pCO2 (35-45) mmHg ABG pO2 (83-108) mmHg ABG O2 Saturation (94-97) % Sodium (137-145) mmol/L Carbon Dioxide (22-30) mmol/L BUN (9-20) mg/dL Creatinine (0.66-1.25) mg/dL Glucose (74-99) mg/dL POC Glucose (mg/dL) 182 H 153 H (75-99) mg/dL Calcium (8.4-10.2) mg/dL Ionized Calcium Leighann 4.2 L (4.5-5.3) mg/dL Phosphorus (2.5-4.5) mg/dL Total Bilirubin (0.2-1.3) mg/dL AST (17-59) U/L ALT (21-72) U/L Alkaline Phosphatase (38-126) U/L Total Protein (6.3-8.2) g/dL Albumin (3.5-5.0) g/dL Prealbumin (18.0-42.0) mg/dL Urine Protein (Negative) Urine Blood (Negative) Ur Leukocyte Esterase (Negative) Urine RBC (0-5) /hpf Urine WBC (0-5) /hpf Urine Bacteria (None) /hpf Hyaline Casts (0-2) /lpf Urine Mucus (None) /hpf Microbiology - Last 24 Hours (Table) 12/07/17 10:35 Blood Culture - Final Blood 12/07/17 11:47 Gram Stain - Preliminary Sputum Sputum Culture - Preliminary 12/07/17 11:20 Urine Culture - Preliminary Urine,Catheterized 12/06/17 22:12 Stool Culture - Preliminary Stool Assessment and Plan Assessment: Impression 1. 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 creatinine improved to 1.5 on 12/04/2017 but since then has been slowly deteriorating and currently 2.1. This is secondary to sepsis and pneumonia. 2. Chest x-ray shows worsening in the left perihilar area especially. 3. Is post CABG reintubated on the vent, FiO2 worsened from 50% to 80%. 4. Blood pressure stable on levofed. 5. Combination of respiratory and metabolic acidosis, pH is 7.27 pCO2 is 46 and bicarb is 21 6. Anemia hemoglobin 7.5 and down to 7.8, 7. Blood gases show mild degree of metabolic alkalosis secondary to respiratory alkalosis on the vent. 8. Slightly low ionized calcium at 4.2 normal range is 4.5 9. Increase liver function tests likely secondary to sepsis. 10. Iron deficiency saturation 7% on 11/28/2017 Recommendation 1. Maintain current medication including levo fed, 2. Maintain mean arterial blood pressure around 60-65 3. Recommend calcium gluconate 1 g IV over 1 hour 4. Obtain lactic acid
[2017-12-08] MEDS: MEROPENEM 1 GM in SODIUM CHLORIDE 0.9% 100 ML IVPB SCH ×2 (10:25→21:09)
[2017-12-08] MEDS: CALCIUM CARBONATE LIQUID 500 MG/5 ML CUP PO SCH ×2 (12:30→16:37)
[2017-12-08] MEDS: AMIODARONE 200 MG TAB PO SCH (12:36)
[2017-12-08] MEDS: D5W WITH KCL 20 MEQ/L 1,000 ML IV SCH (12:46)
--- NOTE | 2017-12-08 13:16 | P.PN ---
Subjective Progress Note Date: 12/08/17 This is a pleasant gentleman patient of Dr. Spann, newly established to the office to evaluate shortness of breath, dyspnea on exertion, underwent cardiac cath and found to have ischemic cardiomyopathy with severe LV dysfunction, triple-vessel disease prior to bypass surgery, admitted for bypass surgery and valve repair. He has underlying history of diabetes mellitus type 2, hyperlipidemia, Cardiac cath performed 11/09/2017 shows left main coronary up was calcified, circumflex 95% stenosis in the ostial portion, LAD totally occluded just of to the origin of the large diagonal branch, diagonal branch from the percent stenosis, 70% stenosis in the PDA and PLV severe left ventricle systolic dysfunction and mitral regurgitation He is currently in ICU being prepped for CABG and mitral valve repair on 2017 and has intra-aortic balloon pump done through the right femoral artery. 11/17: Patient is having open-heart surgery today. 11/18: Patient is status post quadruple coronary artery bypass grafting using the left internal mammary artery to the left anterior descending coronary artery, a reverse greater saphenous vein graft from the aorta to the diagonal coronary artery, reverse greater saphenous vein graft from the aorta to the first obtuse marginal coronary artery, a reverse greater saphenous vein graft from the aorta to the posterior descending coronary artery and mitral valve repair. Patient remains in the intensive care unit intubated and on mechanical ventilation currently on CPAP for weaning parameters. He continues to have intra-aortic balloon pump in place which is plan to keep for 1 more day. He has a right, left and mediastinal chest tubes in place draining serosanguineous fluid. Urine output is 50-60 mL per hour. He is also on vasopressors. Hemoglobin A1c is 6.7. 8: Patient remains in the intensive care unit. He is currently off oxygen and pulse oxing. He continues to have all [address] Balloon pump was removed. Urine output has been adequate. White count is normal. Hemoglobin 7.3, INR 1.5, creatinine 0.93, blood sugars are running between 104 and 127. He has been afebrile. Heart rate running in the 90s. Blood pressure is stable with current vasopressors. Pulse ox is 9700% on room air. Patient denies having any chest pain. No abdominal pain. No nausea. 8/4. Patient examined the bedside in the ICU. Currently off oxygen. He is not making enough urine output. Creatinine function has worsened from 0.8-1.2. Hemoglobin 7 this morning status post transfusion 1 unit PRBC. Patient is denies any chest pain, shortness of breath is resting comfortably in the chair. He still continues to have [address] with a AARON drain. Blood sugar between 100-125. 11/21 patient examined bedside in the ICU. Brief episode of atrial fibrillation last night and one dose of IV amiodarone given followed by a maintenance dose Afinitor on 400 mg twice a day. Creatinine increased to 1.8 today. Patient is having minimal urine output with less than 10 mL per hour. Patient may benefit from IV fluids as he has minimal oral intake and has minimal urine output. One bag of 250 mg abdomen given today. Patient received 2 units of PRBCs C yesterday. No bowel movements for the past 3 days. Patient is passing gas. Continue with bowel regimen 11/22: Patient hasn't been noted to have increasing renal numbers with BUN of 66 and creatinine 2.2 and nephrology has been consult did. Patient is also noted to have low urine output and dark urine. He is not eating very much. Patient is more lethargic today. He denies any abdominal pain. Heart rate is controlled in a sinus rhythm. He is currently on oral amiodarone and Lopressor for atrial fibrillation. No anticoagulation due to thrombocytopenia. He is currently off label fed but continued on Primacor. 11/23: Patient has been seen by hematology for thrombocytopenia secondary to shock liver and consumption. Fibrinogen to be checked. Patient be transfused if platelet count is less than 50,000. One dose of vitamin K was given for INR of 1.8 yesterday. INR today is at 2.5, platelet count 41. BUN 89, creatinine 2.30, AST 1470, ALT 721. Urinalysis is turbid, leukoesterase moderate, RBCs greater than 182, wbc's 37, Patient has also been seen by nephrology for acute kidney injury, acute tubular necrosis, oliguria. Recommendations to transfuse if hemoglobin is falls below 7.4 fluid bolus was attempted without improvement and patient was started on Lasix drip. Patient is also continued on Primacor. Urine output has been 35-75 mL per hour. Heart rate has been elevated in the low 100s. Patient has received calcium chloride 1 dose yesterday and repeat today. He was started on Midodrine 10 mg 3 times daily yesterday. He is more lethargic today. He has failed a swallow eval and speech therapy added. Patient has been started on Zoloft for depression but patient appears to be more acute delirium. Patient has been on and off norepinephrine as his blood pressures dropping into the 80 systolic when he sleeps. 11/24: Lasix drip has been discontinued. Patient has received 4 A of bicarbonate is on a bicarb drip. Patient is on levofed and vasopressin along with Primacor. He has received vitamin K and fresh frozen plasma. Urine output is 15-20 mL per hour. Central line was placed today requiring of fresh frozen plasma and vitamin K. There is concern for need of hemodialysis. Patient has diarrhea after having constipation and fecal management system has been placed. His mental status continued to decline yesterday and by this morning he was re -intubated. White count is increasing to 18.5, hemoglobin 7.1, platelet count 48. INR is 2.9, BUN 103, creatinine 3.17, phosphorus 7.5, magnesium 2.7, AST 1301, ALT 623. Total bilirubin is 5.8. Cortisol level was greater than 123. Patient will be resumed back on insulin drip due to hyperglycemia. Echocardiogram reveals EF of 40-45%, mild concentric left ventricular hypertrophy, and only mild gently dilated 34-39, moderate mitral stenosis, mild tricuspid regurgitation, mild pulmonary hypertension 11/25: Patient remains intubated and on mechanical ventilation. We resumed insulin drip yesterday. He remains on Levophed and milrinone. Renal function remains poor. 11/26: Patient remains in the intensive care unit, intubated and on mechanical ventilation. Patient has had good urine output. He remains on vasopressin, norepinephrine, insulin drip. BUN is 114 and creatinine 2.2, phosphorus 4.5, white count 14.6. Hemoglobin is 7. There are no orders for transfusion. INR is 1.7. Liver function tests are improving. Sputum culture showing gram- negative bacilli. 11/27: Patient continued to be intubated does not follow commands. Patient has developed atrial fibrillation and heart rate is currently controlled. Patient continued to require levo fed infusion at 6 mics per Per minute 11/28:Patient continued to be distended does not follow commands. Patient has developed atrial fibrillation and heart rate is currently controlled. Patient was following commands by squeezing his hand this morning but currently is off sedation but still not following commands patient is moving his head to the right than to the left spontaneously and currently still on full vent support 11/29: Patient remains intubated and on mechanical ventilation. He is currently being CPAP. He has been off vasopressors since over the weekend. He is also off midodrine. Patient started on hydralazine. He is more alert and able to squeeze his hands with direction. Left is noted to be stronger than the right. He has continued on Primacor and insulin. We have ordered one dose of Ferrlecit and he is scheduled for transfusion 1 unit of packed RBCs for hemoglobin of 6.9. Liver function tests are improving. BUN is 131 and creatinine 1.6. 11/30: Patient remains in intensive care unit intubated and on mechanical ventilation. He continues to be off vasopressors. He remains on Primacor. Urine output has been between 45 and 150 mL per hour. BUN 131 and creatinine 1.6. White count is down to 12.8, hemoglobin is now 8 after 1 unit of packed RBCs and he received Ferrlecit yesterday. White blood count is recovering now at 136. Liver function tests are all improving as well. Overall, patient is showing slow gradual improvement. Another dose of Ferrlecit has been ordered by nephrology. 12/01: Patient has been successfully extubated yesterday and now on BiPAP. Patient is currently on Precedex. He was placed on low-dose label fed and is currently being weaned. Central line and chest tube on the right to be removed today. White count is 13.7, hemoglobin 8.1, BUN 126 and creatinine 1.6. Capillary blood glucose running between 132 and 152. Her function tests continue to improve. 12/02: Patient remains in the intensive care unit. A Dobbhoff was attempted yesterday but was unsuccessful and to be retry today. Capillary blood glucose running between 149 and 164. White count is down to 12.4, hemoglobin is at 7.8. Renal function shows a BUN of 118 and creatinine 1.6. Liver function tests continue to improve slowly but are not back to normal range. 12/03: Patient remains in intensive care unit. Attempted Dobbhoff tube was attempted by STEVEN yesterday but second attempt was also unsuccessful and patient required reintubation for acute respiratory failure. Patient is on Primacor and propofol, low dose norepinephrine. Asians does not wish for tracheostomy and PEG tube as those were the patient's wishes. Patient has had diarrhea starting a urine specimen to be sent for C. difficile toxin. 12/04: Patient remains in intensive care unit, he continues to be on the ventilator with an before meals mode FiO2 50% appears extremely weak, he was seen along with the cardiothoracic surgery service, we will continue to monitor the patient very closely prognosis very guarded. 12/05: Patient is sedated with propofol his currently on the ventilator continues to be on milrinone and Midrin along with levo, the plan is for the patient to have the trach and PEG this discussion was entertained with the by the cardiothoracic surgery service and the plan is still not okayed as the patient did not want to go for this. 12/06: Patient was given IV dig start today and followed with oral dosing and Lasix 40 mg IV daily. He was ordered for 1 unit of packed RBCs for hemoglobin of 7 yesterday. Repeat hemoglobin 7.8 this morning. Creatinine is slightly higher from yesterday 1.62. Liver function tests are slightly elevated from yesterday. He remains intubated and on mechanical ventilation. He has been afebrile. Patient's may consider PEG and trach if patient shows notable improvement. 12/07: Patient remains intubated and on mechanical ventilation. Hemoglobin is stable at 8, noted platelets have been dropping and currently at 88. BUN is 111 and creatinine 1.82, liver function tests are rising with currently on total bilirubin of 2.4, AST 147, ALT 116, alkaline phosphatase 246. Albumin is 1.8. Patient is on tube feedings. IV Lasix has been increased to [address] Kebede. Patient remains with medical management in place and testing for Giardia, cryptosporidium in process and Imodium added. C. difficile toxin has been negative at 3 specimens. He has a stage II decubitus ulcer to the sacrum. Patient developed fever 102.2 this morning. Blood culture was obtained. Patient on norepinephrine. Midodrine was added yesterday. 12/08: Patient was resumed back on antibiotics yesterday and changed to meropenem. He remains intubated and on mechanical ventilation. He is on insulin drip, propofol, norepinephrine. Repeat chest x-ray shows heart failure with pleural effusions. Probable bilateral pneumonia. Chest appears same or slightly worse from yesterday. RDS is possible. He has been afebrile since last evening. White count has increased to 11.1 and platelet count is stable at 97. Hemoglobin 7.8. Renal function is worsening. BUN 126 and creatinine 2.10. No plan for dialysis. Liver function tests continue to worsen. Calcium has also been replaced. Objective - Vital Signs Vital signs: Vital Signs Temp 98.5 F 12/08/17 08:00 Pulse 76 12/08/17 11:00 Resp 29 H 12/08/17 11:00 BP 96/45 12/08/17 11:00 Pulse Ox 100 12/08/17 11:00 Intake & Output 12/07/17 12/08/17 12/08/17 18:59 06:59 18:59 Intake Total 3013.254 0335.857 704.809 Output Total 630 352 125 Balance 8544.457 2747.857 579.809 Weight 91.1 kg 92.1 kg 92.1 kg Intake: IV 299 276 69 D5w with KCl 20 Meq/l 1, 260 240 60 000 ml @ 20 mls/hr IV . Q24H [facility] Rx#:[id number] Pressure Bags 39 36 9 Intake, IV Titration 251.777 161.857 235.809 Amount Insulin Regular 100 unit 30.814 19.557 9.631 In Sodium Chloride 0.9% 100 ml @ Per Protocol IV .Q0M JANNA Rx#:[id number] Meropenem 1 gm In Sodium 100 Chloride 0.9% 100 ml @ 200 mls/hr IVPB ONCE STA Rx#:[id number] Norepinephrine 16 mg In 48.875 Dextrose 5% in Water 250 ml @ Titrate IV .Q0M JANNA Rx#:[id number] Norepinephrine 16 mg In 37.841 81.456 26.178 Sodium Chloride 0.9% 250 ml @ Titrate IV .Q0M JANNA Rx#:[id number] Propofol 1,000 mg In 134.247 60.844 100.000 Empty Bag 1 bag @ Titrate IV .Q0M JANNA Rx#: [id number] Oral 240 Tube Feeding 910 1120 280 Other 600 120 Output: Urine 630 352 125 Other: Voiding Method Indwelling Catheter Indwelling Catheter Indwelling Catheter ABP, PAP, CO, CI - Last Documented Arterial Blood Pressure 105/42 Pulmonary Artery Pressure 40/15 Cardiac Output 5.0 Cardiac Index 2.7 - Exam General appearance: average body habitus, cooperative, no acute distress - EENT Eyes: anicteric sclerae, EOMI, PERRLA, dentition normal, normal appearance no vision in the left eye blurring of the cornea ENT: NA/AT, normal oropharynx, intubated and on mechanical ventilation - Respiratory Respiratory: bilateral: Scattered rhonchi, negative: diminished, dullness, rales , wheezing, - Cardiovascular Rhythm: Regularly irregular Heart sounds: normal: S1, S2 Abnormal Heart Sounds: no systolic murmur, no diastolic murmur, no rub, no S3 Gallop, no S4 Gallop, no click, no other - Gastrointestinal General gastrointestinal: normal bowel sounds, soft, Fong draining clear dark urine - Integumentary Integumentary: normal, normal turgor - Neurologic Neurologic: Patient sedated - Musculoskeletal Musculoskeletal: gait not assessed, patient sedated - Labs CBC & Chem 7: 12/08/17 04:00 12/08/17 04:00 Labs: Abnormal Lab Results - Last 24 Hours (Table) 12/07/17 12/07/17 12/07/17 Range/Units 08:45 10:30 11:20 WBC (3.8-10.6) k/uL RBC (4.30-5.90) m/uL Hgb (13.0-17.5) gm/dL Hct (39.0-53.0) % RDW (11.5-15.5) % Plt Count (150-450) k/uL Neutrophils # (1.3-7.7) k/uL Lymphocytes # (1.0-4.8) k/uL ABG pH (7.35-7.45) ABG pCO2 (35-45) mmHg ABG pO2 (83-108) mmHg ABG O2 Saturation (94-97) % Sodium (137-145) mmol/L Carbon Dioxide (22-30) mmol/L BUN (9-20) mg/dL Creatinine (0.66-1.25) mg/dL Glucose (74-99) mg/dL POC Glucose (mg/dL) 122 H (75-99) mg/dL Calcium (8.4-10.2) mg/dL Ionized Calcium Leighann (4.5-5.3) mg/dL Phosphorus (2.5-4.5) mg/dL Total Bilirubin (0.2-1.3) mg/dL AST (17-59) U/L ALT (21-72) U/L Alkaline Phosphatase (38-126) U/L Total Protein (6.3-8.2) g/dL Albumin (3.5-5.0) g/dL Prealbumin <5.0 L (18.0-42.0) mg/dL Urine Protein 1+ H (Negative) Urine Blood Large H (Negative) Ur Leukocyte Esterase Moderate H (Negative) Urine RBC >182 H (0-5) /hpf Urine WBC 21 H (0-5) /hpf Urine Bacteria Occasional H (None) /hpf Hyaline Casts 17 H (0-2) /lpf Urine Mucus Rare H (None) /hpf 12/07/17 12/07/17 12/07/17 Range/Units 12:12 13:48 16:05 WBC (3.8-10.6) k/uL RBC (4.30-5.90) m/uL Hgb (13.0-17.5) gm/dL Hct (39.0-53.0) % RDW (11.5-15.5) % Plt Count (150-450) k/uL Neutrophils # (1.3-7.7) k/uL Lymphocytes # (1.0-4.8) k/uL ABG pH (7.35-7.45) ABG pCO2 (35-45) mmHg ABG pO2 (83-108) mmHg ABG O2 Saturation (94-97) % Sodium (137-145) mmol/L Carbon Dioxide (22-30) mmol/L BUN (9-20) mg/dL Creatinine (0.66-1.25) mg/dL Glucose (74-99) mg/dL POC Glucose (mg/dL) 122 H 133 H 140 H (75-99) mg/dL Calcium (8.4-10.2) mg/dL Ionized Calcium Leighann (4.5-5.3) mg/dL Phosphorus (2.5-4.5) mg/dL Total Bilirubin (0.2-1.3) mg/dL AST (17-59) U/L ALT (21-72) U/L Alkaline Phosphatase (38-126) U/L Total Protein (6.3-8.2) g/dL Albumin (3.5-5.0) g/dL Prealbumin (18.0-42.0) mg/dL Urine Protein (Negative) Urine Blood (Negative) Ur Leukocyte Esterase (Negative) Urine RBC (0-5) /hpf Urine WBC (0-5) /hpf Urine Bacteria (None) /hpf Hyaline Casts (0-2) /lpf Urine Mucus (None) /hpf 12/07/17 12/07/17 12/07/17 Range/Units 18:57 20:08 21:57 WBC (3.8-10.6) k/uL RBC (4.30-5.90) m/uL Hgb (13.0-17.5) gm/dL Hct (39.0-53.0) % RDW (11.5-15.5) % Plt Count (150-450) k/uL Neutrophils # (1.3-7.7) k/uL Lymphocytes # (1.0-4.8) k/uL ABG pH (7.35-7.45) ABG pCO2 (35-45) mmHg ABG pO2 (83-108) mmHg ABG O2 Saturation (94-97) % Sodium (137-145) mmol/L Carbon Dioxide (22-30) mmol/L BUN (9-20) mg/dL Creatinine (0.66-1.25) mg/dL Glucose (74-99) mg/dL POC Glucose (mg/dL) 145 H 147 H 154 H (75-99) mg/dL Calcium (8.4-10.2) mg/dL Ionized Calcium Leighann (4.5-5.3) mg/dL Phosphorus (2.5-4.5) mg/dL Total Bilirubin (0.2-1.3) mg/dL AST (17-59) U/L ALT (21-72) U/L Alkaline Phosphatase (38-126) U/L Total Protein (6.3-8.2) g/dL Albumin (3.5-5.0) g/dL Prealbumin (18.0-42.0) mg/dL Urine Protein (Negative) Urine Blood (Negative) Ur Leukocyte Esterase (Negative) Urine RBC (0-5) /hpf Urine WBC (0-5) /hpf Urine Bacteria (None) /hpf Hyaline Casts (0-2) /lpf Urine Mucus (None) /hpf 12/07/17 12/08/17 12/08/17 Range/Units 23:51 01:51 03:57 WBC (3.8-10.6) k/uL RBC (4.30-5.90) m/uL Hgb (13.0-17.5) gm/dL Hct (39.0-53.0) % RDW (11.5-15.5) % Plt Count (150-450) k/uL Neutrophils # (1.3-7.7) k/uL Lymphocytes # (1.0-4.8) k/uL ABG pH (7.35-7.45) ABG pCO2 (35-45) mmHg ABG pO2 (83-108) mmHg ABG O2 Saturation (94-97) % Sodium (137-145) mmol/L Carbon Dioxide (22-30) mmol/L BUN (9-20) mg/dL Creatinine (0.66-1.25) mg/dL Glucose (74-99) mg/dL POC Glucose (mg/dL) 155 H 199 H 173 H (75-99) mg/dL Calcium (8.4-10.2) mg/dL Ionized Calcium Leighann (4.5-5.3) mg/dL Phosphorus (2.5-4.5) mg/dL Total Bilirubin (0.2-1.3) mg/dL AST (17-59) U/L ALT (21-72) U/L Alkaline Phosphatase (38-126) U/L Total Protein (6.3-8.2) g/dL Albumin (3.5-5.0) g/dL Prealbumin (18.0-42.0) mg/dL Urine Protein (Negative) Urine Blood (Negative) Ur Leukocyte Esterase (Negative) Urine RBC (0-5) /hpf Urine WBC (0-5) /hpf Urine Bacteria (None) /hpf Hyaline Casts (0-2) /lpf Urine Mucus (None) /hpf 12/08/17 12/08/17 12/08/17 Range/Units 04:00 04:00 05:12 WBC 11.1 H (3.8-10.6) k/uL RBC 2.59 L (4.30-5.90) m/uL Hgb 7.8 L (13.0-17.5) gm/dL Hct 24.7 L (39.0-53.0) % RDW 18.6 H (11.5-15.5) % Plt Count 97 L (150-450) k/uL Neutrophils # 9.8 H (1.3-7.7) k/uL Lymphocytes # 0.5 L (1.0-4.8) k/uL ABG pH 7.27 L (7.35-7.45) ABG pCO2 46 H (35-45) mmHg ABG pO2 58 L (83-108) mmHg ABG O2 Saturation 87.9 L (94-97) % Sodium 136 L (137-145) mmol/L Carbon Dioxide 21 L (22-30) mmol/L BUN 126 H* (9-20) mg/dL Creatinine 2.10 H (0.66-1.25) mg/dL Glucose 166 H (74-99) mg/dL POC Glucose (mg/dL) (75-99) mg/dL Calcium 6.7 L (8.4-10.2) mg/dL Ionized Calcium Leighann (4.5-5.3) mg/dL Phosphorus 6.2 H (2.5-4.5) mg/dL Total Bilirubin 2.0 H (0.2-1.3) mg/dL AST 230 H (17-59) U/L ALT 147 H (21-72) U/L Alkaline Phosphatase 317 H (38-126) U/L Total Protein 5.3 L (6.3-8.2) g/dL Albumin 1.9 L (3.5-5.0) g/dL Prealbumin (18.0-42.0) mg/dL Urine Protein (Negative) Urine Blood (Negative) Ur Leukocyte Esterase (Negative) Urine RBC (0-5) /hpf Urine WBC (0-5) /hpf Urine Bacteria (None) /hpf Hyaline Casts (0-2) /lpf Urine Mucus (None) /hpf 12/08/17 12/08/17 12/08/17 Range/Units 05:52 06:20 08:25 WBC (3.8-10.6) k/uL RBC (4.30-5.90) m/uL Hgb (13.0-17.5) gm/dL Hct (39.0-53.0) % RDW (11.5-15.5) % Plt Count (150-450) k/uL Neutrophils # (1.3-7.7) k/uL Lymphocytes # (1.0-4.8) k/uL ABG pH (7.35-7.45) ABG pCO2 (35-45) mmHg ABG pO2 (83-108) mmHg ABG O2 Saturation (94-97) % Sodium (137-145) mmol/L Carbon Dioxide (22-30) mmol/L BUN (9-20) mg/dL Creatinine (0.66-1.25) mg/dL Glucose (74-99) mg/dL POC Glucose (mg/dL) 182 H 153 H (75-99) mg/dL Calcium (8.4-10.2) mg/dL Ionized Calcium Leighann 4.2 L (4.5-5.3) mg/dL Phosphorus (2.5-4.5) mg/dL Total Bilirubin (0.2-1.3) mg/dL AST (17-59) U/L ALT (21-72) U/L Alkaline Phosphatase (38-126) U/L Total Protein (6.3-8.2) g/dL Albumin (3.5-5.0) g/dL Prealbumin (18.0-42.0) mg/dL Urine Protein (Negative) Urine Blood (Negative) Ur Leukocyte Esterase (Negative) Urine RBC (0-5) /hpf Urine WBC (0-5) /hpf Urine Bacteria (None) /hpf Hyaline Casts (0-2) /lpf Urine Mucus (None) /hpf Microbiology - Last 24 Hours (Table) 12/07/17 10:35 Blood Culture - Final Blood 12/07/17 11:47 Gram Stain - Preliminary Sputum Sputum Culture - Preliminary 12/07/17 11:20 Urine Culture - Preliminary Urine,Catheterized 12/06/17 22:12 Stool Culture - Preliminary Stool Assessment and Plan Plan: (1) Coronary artery disease and moderate mitral valve regurgitation Triple vessel disease noted on cardiac cath agent status post CABG and mitral valve repair on all 11/17/2017. Continue on aspirin, metoprolol. ICU criminal lawyer Dr. Paul/Delonte on consult. Continue current management per cardio vascular surgery team (2) Ischemic cardiomyopathy Has impaired ejection fraction of 38%, along with congestive heart failure. (3) Congestive heart failure with cardiomyopathy Acute on chronic systolic and diastolic heart failure (4) Hyperlipidemia Patient currently not on statins (5) GI prophylaxis (6) DVT prophylaxis (7) Steal syndrome, subclavian Carotid Dopplers 11/10/2017 shows no carotid stenosis however there is to and fro flow within the right vertebral artery could reflect manifestation of subclavian steal physiology prior to with continuous flow reversal. Currently asymptomatic continue to monitor (8) Pulmonary hypertension PILAR on 11/10/2017, moderate pulmonary hypertension also shows intact atrial septum with no evidence of ocwc-ny-evxcy shunt physiology, unable to locate pressures for right ventricular systolic 9. Thrombocytopenia secondary to consumption. Numbers improved and patient has been resumed back on aspirin, Plavix. Consult with oncology appreciated. Recommendations for platelet transfusion if less than 50,000. 10. Anemia, secondary to a combination of acute blood loss and renal failure with drop in hemoglobin from 10-6.5. Patient is status post multiple blood products. Ferrlecit infusion. 11. Acute kidney injury, acute tubular necrosis, oliguric secondary to hypotension, hypoperfusion. Consult with nephrology appreciated. Off Lasix drip. Status post IV sodium bicarb. 12. Post op atrial fibrillation, expected outcome of surgery. Patient has been on amiodarone and Lopressor. 13. Liver transaminitis and coagulopathy secondary to shock liver oncology consult appreciated. Continue to monitor closely. 14. Depression, situational. Zoloft was subsequently discontinued. 15. Acute delirium secondary to acute illness. 16. Hyperglycemia without diabetes. Patient resumed on insulin drip. Hemoglobin A1c is 6.7. 17. Cardiorenal syndrome and cardiogenic shock requiring IV vasopressors. 18. Diarrhea with possible acute GI bleed with acute blood loss anemia. Fecal management system. Stool for occult blood is positive. C diff toxin is negative on 2 specimens. 19. Acute hypoxic respiratory failure requiring reintubation and mechanical ventilation. Prognosis guarded. Discharge plan: To be determined Impression and plan of care have been directed as dictated by the signing physician. Amy Renteria nurse practitioner acting as scribe for signing physician.
--- NOTE | 2017-12-08 14:55 | P.PN ---
<Jaden Tracy Jon - Last Filed: 12/08/17 14:52> Subjective Progress Note Date: 12/08/17 Principal diagnosis: Triple-vessel coronary artery disease, severe ischemic cardiomyopathy with a preoperative ejection fraction of 25-30%, moderate mitral valve regurgitation, mild tricuspid valve regurgitation, diabetes mellitus type 2, hyperlipidemia, moderate to severe restrictive lung disease with a preoperative FEV1 of 43% of predicted value, preoperative bilateral small to moderate pleural effusions, evidence of diffuse calcific coronary artery disease, and evidence of old inferior posterior, apical myocardial infarction and remote history of tobacco dependence. POD #22 placement of intra-aortic balloon pump. POD #21 quadruple coronary artery bypass grafting using the left internal mammary artery to the left anterior descending coronary artery, a reverse greater saphenous vein graft from the aorta to the diagonal coronary artery, reverse greater saphenous vein graft from the aorta to the first obtuse marginal coronary artery, a reverse greater saphenous vein graft from the aorta to the posterior descending coronary artery. A mitral valve repair using a complete annuloplasty with a 30 mm Kapoor IMR ring, exclusion of the left atrial appendage using a 35 mm Atriclip, intraoperative transesophageal echocardiogram and epi-aortic scanning, and intraoperative graft flow measurements using the Medistim system. Postoperative normochromic anemia, and expected outcome of surgery secondary to cardiopulmonary bypass and hemodilution. Postoperative thrombocytopenia, an expected outcome of surgery. Postoperative atrial fibrillation, an expected outcome of surgery. Postoperative elevated transaminases, an unexpected outcome of surgery, likely secondary to low flow state post surgery. Postoperative acute kidney injury, an unexpected outcome of surgery, likely secondary to low flow state post surgery. Postoperative acute metabolic acidosis, lactic acidosis, reintubation, an unexpected outcome. Postoperative cardiogenic shock, an unexpected outcome. Postoperative hypernatremia, an unexpected outcome. Acute hypoxemic respiratory failure requiring a second reintubation, an unexpected outcome. The patient remains intubated with mechanical ventilator support. Sedation remains with propofol at 20 mcg/kg/m. A Dobbhoff tube remains with tube feedings infusing at 70 mL an hour using vital AF with automatic water flushes. Norepinephrine drip is infusing at 6 mcg/m. Primacor drip remains was discontinued yesterday 12/07/2017. Early this morning around 4:30 AM the patient started to desaturate with his oxygen saturations in the 80s. An ABG was drawn which demonstrated his pH to be 7.27, pCO2 46, pO2 58, HCO3 21, oxygen saturation 87.9, and base excess -5.9. ABG results were called to Dr. Paul and some mechanical ventilator changes were made due to the blood gas results and the patient's clinical status. His is currently at his bedside. She is requesting to speak with the physicians regarding withdrawal of mechanical ventilator support. Objective - Vital Signs Vital signs: Vital Signs Temp 98.5 F 12/08/17 08:00 Pulse 76 12/08/17 11:00 Resp 29 H 12/08/17 11:00 BP 96/45 12/08/17 11:00 Pulse Ox 100 12/08/17 11:00 Intake & Output 12/07/17 12/08/17 12/08/17 18:59 06:59 18:59 Intake Total 5081.597 2122.857 699.082 Output Total 630 352 125 Balance 1549.658 4185.857 574.082 Weight 91.1 kg 92.1 kg 92.1 kg Intake: IV 299 276 69 D5w with KCl 20 Meq/l 1, 260 240 60 000 ml @ 20 mls/hr IV . Q24H JANNA Rx#:[id number] Pressure Bags 39 36 9 Intake, IV Titration 251.777 161.857 230.082 Amount Insulin Regular 100 unit 30.814 19.557 9.631 In Sodium Chloride 0.9% 100 ml @ Per Protocol IV .Q0M JANNA Rx#:[id number] Meropenem 1 gm In Sodium 100 Chloride 0.9% 100 ml @ 200 mls/hr IVPB ONCE STA Rx#:[id number] Norepinephrine 16 mg In 48.875 Dextrose 5% in Water 250 ml @ Titrate IV .Q0M JANNA Rx#:[id number] Norepinephrine 16 mg In 37.841 81.456 26.178 Sodium Chloride 0.9% 250 ml @ Titrate IV .Q0M JANNA Rx#:[id number] Propofol 1,000 mg In 134.247 60.844 94.273 Empty Bag 1 bag @ Titrate IV .Q0M JANNA Rx#: [id number] Oral 240 Tube Feeding 910 1120 280 Other 600 120 Output: Urine 630 352 125 Other: Voiding Method Indwelling Catheter Indwelling Catheter Indwelling Catheter ABP, PAP, CO, CI - Last Documented Arterial Blood Pressure 105/42 Pulmonary Artery Pressure 40/15 Cardiac Output 5.0 Cardiac Index 2.7 - Constitutional Constitutional Comment(s): The patient remains sedated on propofol drip at 20 mcg/kg/m. A sedation holiday was trialed today for 90 minutes, he did not follow any verbal commands. He was grimacing with some oral care. General appearance: Present: no acute distress - Respiratory Details: Lung sounds with few scattered rhonchi throughout, diminished to his bilateral bases. Respirations are symmetrical and nonlabored with mechanical ventilator support. Current ventilator settings are as follows: Assist control 28, tidal volume 500, FiO2 80%, PEEP of 10. #8 ET tube present and secured at 24 cm at the lip. - Cardiovascular Details: Regular rhythm and rate. S1 and S2 present, negative for S3, gallop or murmur. Sternum is stable. Bedside telemetry showing normal sinus rhythm heart rate 89. Heart hugger is in place. Knee-high MERLYN hose and sequential compression devices in place to his bilateral lower extremities. Anasarca with scrotal edema present. Atrial and ventricular epicardial pacemaker wires intact and grounded. Norepinephrine drip at 6 mcg/m. - Gastrointestinal Gastrointestinal Comment(s): Abdomen is soft, nontender and nondistended. Active bowel sounds all 4 abdominal quadrants. Fecal management system present with greenish colored diarrhea. Dobbhoff tube present to his right nare with vital AF tube feedings infusing at goal rate of 70 mL per hour with automatic water flushes. - Genitourinary Genitourinary Comment(s): Fong catheter in place for accurate I&O. Draining clear yellow urine. Marginal urine output with 260 mL output in the last 8 hours. - Integumentary Integumentary Comment(s): Skin is warm and dry. No clubbing or cyanosis present. Midline sternal incision clean and dry and approximated. No drainage or redness present. Left lower extremity EVH site clean dry and approximated. Stage II pressure ulcer to his coccyx, covered by Opticel foam dressing. - Neurologic Neurologic Comment(s): Currently sedated with propofol drip at 20 mcg/kg/m. He remains with mechanical ventilator support. Does not follow any verbal commands with sedation holiday at this point. - Musculoskeletal Musculoskeletal: Present: generalized weakness - Allied health notes Allied health notes reviewed: nursing - Labs CBC & Chem 7: 12/08/17 04:00 12/08/17 04:00 Labs: Abnormal Lab Results - Last 24 Hours (Table) 12/07/17 12/07/17 12/07/17 Range/Units 08:45 10:30 11:20 WBC (3.8-10.6) k/uL RBC (4.30-5.90) m/uL Hgb (13.0-17.5) gm/dL Hct (39.0-53.0) % RDW (11.5-15.5) % Plt Count (150-450) k/uL Neutrophils # (1.3-7.7) k/uL Lymphocytes # (1.0-4.8) k/uL ABG pH (7.35-7.45) ABG pCO2 (35-45) mmHg ABG pO2 (83-108) mmHg ABG O2 Saturation (94-97) % Sodium (137-145) mmol/L Carbon Dioxide (22-30) mmol/L BUN (9-20) mg/dL Creatinine (0.66-1.25) mg/dL Glucose (74-99) mg/dL POC Glucose (mg/dL) 122 H (75-99) mg/dL Calcium (8.4-10.2) mg/dL Ionized Calcium Leighann (4.5-5.3) mg/dL Phosphorus (2.5-4.5) mg/dL Total Bilirubin (0.2-1.3) mg/dL AST (17-59) U/L ALT (21-72) U/L Alkaline Phosphatase (38-126) U/L Total Protein (6.3-8.2) g/dL Albumin (3.5-5.0) g/dL Prealbumin <5.0 L (18.0-42.0) mg/dL Urine Protein 1+ H (Negative) Urine Blood Large H (Negative) Ur Leukocyte Esterase Moderate H (Negative) Urine RBC >182 H (0-5) /hpf Urine WBC 21 H (0-5) /hpf Urine Bacteria Occasional H (None) /hpf Hyaline Casts 17 H (0-2) /lpf Urine Mucus Rare H (None) /hpf 12/07/17 12/07/17 12/07/17 Range/Units 12:12 13:48 16:05 WBC (3.8-10.6) k/uL RBC (4.30-5.90) m/uL Hgb (13.0-17.5) gm/dL Hct (39.0-53.0) % RDW (11.5-15.5) % Plt Count (150-450) k/uL Neutrophils # (1.3-7.7) k/uL Lymphocytes # (1.0-4.8) k/uL ABG pH (7.35-7.45) ABG pCO2 (35-45) mmHg ABG pO2 (83-108) mmHg ABG O2 Saturation (94-97) % Sodium (137-145) mmol/L Carbon Dioxide (22-30) mmol/L BUN (9-20) mg/dL Creatinine (0.66-1.25) mg/dL Glucose (74-99) mg/dL POC Glucose (mg/dL) 122 H 133 H 140 H (75-99) mg/dL Calcium (8.4-10.2) mg/dL Ionized Calcium Leighann (4.5-5.3) mg/dL Phosphorus (2.5-4.5) mg/dL Total Bilirubin (0.2-1.3) mg/dL AST (17-59) U/L ALT (21-72) U/L Alkaline Phosphatase (38-126) U/L Total Protein (6.3-8.2) g/dL Albumin (3.5-5.0) g/dL Prealbumin (18.0-42.0) mg/dL Urine Protein (Negative) Urine Blood (Negative) Ur Leukocyte Esterase (Negative) Urine RBC (0-5) /hpf Urine WBC (0-5) /hpf Urine Bacteria (None) /hpf Hyaline Casts (0-2) /lpf Urine Mucus (None) /hpf 12/07/17 12/07/17 12/07/17 Range/Units 18:57 20:08 21:57 WBC (3.8-10.6) k/uL RBC (4.30-5.90) m/uL Hgb (13.0-17.5) gm/dL Hct (39.0-53.0) % RDW (11.5-15.5) % Plt Count (150-450) k/uL Neutrophils # (1.3-7.7) k/uL Lymphocytes # (1.0-4.8) k/uL ABG pH (7.35-7.45) ABG pCO2 (35-45) mmHg ABG pO2 (83-108) mmHg ABG O2 Saturation (94-97) % Sodium (137-145) mmol/L Carbon Dioxide (22-30) mmol/L BUN (9-20) mg/dL Creatinine (0.66-1.25) mg/dL Glucose (74-99) mg/dL POC Glucose (mg/dL) 145 H 147 H 154 H (75-99) mg/dL Calcium (8.4-10.2) mg/dL Ionized Calcium Leighann (4.5-5.3) mg/dL Phosphorus (2.5-4.5) mg/dL Total Bilirubin (0.2-1.3) mg/dL AST (17-59) U/L ALT (21-72) U/L Alkaline Phosphatase (38-126) U/L Total Protein (6.3-8.2) g/dL Albumin (3.5-5.0) g/dL Prealbumin (18.0-42.0) mg/dL Urine Protein (Negative) Urine Blood (Negative) Ur Leukocyte Esterase (Negative) Urine RBC (0-5) /hpf Urine WBC (0-5) /hpf Urine Bacteria (None) /hpf Hyaline Casts (0-2) /lpf Urine Mucus (None) /hpf 12/07/17 12/08/17 12/08/17 Range/Units 23:51 01:51 03:57 WBC (3.8-10.6) k/uL RBC (4.30-5.90) m/uL Hgb (13.0-17.5) gm/dL Hct (39.0-53.0) % RDW (11.5-15.5) % Plt Count (150-450) k/uL Neutrophils # (1.3-7.7) k/uL Lymphocytes # (1.0-4.8) k/uL ABG pH (7.35-7.45) ABG pCO2 (35-45) mmHg ABG pO2 (83-108) mmHg ABG O2 Saturation (94-97) % Sodium (137-145) mmol/L Carbon Dioxide (22-30) mmol/L BUN (9-20) mg/dL Creatinine (0.66-1.25) mg/dL Glucose (74-99) mg/dL POC Glucose (mg/dL) 155 H 199 H 173 H (75-99) mg/dL Calcium (8.4-10.2) mg/dL Ionized Calcium Leighann (4.5-5.3) mg/dL Phosphorus (2.5-4.5) mg/dL Total Bilirubin (0.2-1.3) mg/dL AST (17-59) U/L ALT (21-72) U/L Alkaline Phosphatase (38-126) U/L Total Protein (6.3-8.2) g/dL Albumin (3.5-5.0) g/dL Prealbumin (18.0-42.0) mg/dL Urine Protein (Negative) Urine Blood (Negative) Ur Leukocyte Esterase (Negative) Urine RBC (0-5) /hpf Urine WBC (0-5) /hpf Urine Bacteria (None) /hpf Hyaline Casts (0-2) /lpf Urine Mucus (None) /hpf 12/08/17 12/08/17 12/08/17 Range/Units 04:00 04:00 05:12 WBC 11.1 H (3.8-10.6) k/uL RBC 2.59 L (4.30-5.90) m/uL Hgb 7.8 L (13.0-17.5) gm/dL Hct 24.7 L (39.0-53.0) % RDW 18.6 H (11.5-15.5) % Plt Count 97 L (150-450) k/uL Neutrophils # 9.8 H (1.3-7.7) k/uL Lymphocytes # 0.5 L (1.0-4.8) k/uL ABG pH 7.27 L (7.35-7.45) ABG pCO2 46 H (35-45) mmHg ABG pO2 58 L (83-108) mmHg ABG O2 Saturation 87.9 L (94-97) % Sodium 136 L (137-145) mmol/L Carbon Dioxide 21 L (22-30) mmol/L BUN 126 H* (9-20) mg/dL Creatinine 2.10 H (0.66-1.25) mg/dL Glucose 166 H (74-99) mg/dL POC Glucose (mg/dL) (75-99) mg/dL Calcium 6.7 L (8.4-10.2) mg/dL Ionized Calcium Leighann (4.5-5.3) mg/dL Phosphorus 6.2 H (2.5-4.5) mg/dL Total Bilirubin 2.0 H (0.2-1.3) mg/dL AST 230 H (17-59) U/L ALT 147 H (21-72) U/L Alkaline Phosphatase 317 H (38-126) U/L Total Protein 5.3 L (6.3-8.2) g/dL Albumin 1.9 L (3.5-5.0) g/dL Prealbumin (18.0-42.0) mg/dL Urine Protein (Negative) Urine Blood (Negative) Ur Leukocyte Esterase (Negative) Urine RBC (0-5) /hpf Urine WBC (0-5) /hpf Urine Bacteria (None) /hpf Hyaline Casts (0-2) /lpf Urine Mucus (None) /hpf 12/08/17 12/08/17 12/08/17 Range/Units 05:52 06:20 08:25 WBC (3.8-10.6) k/uL RBC (4.30-5.90) m/uL Hgb (13.0-17.5) gm/dL Hct (39.0-53.0) % RDW (11.5-15.5) % Plt Count (150-450) k/uL Neutrophils # (1.3-7.7) k/uL Lymphocytes # (1.0-4.8) k/uL ABG pH (7.35-7.45) ABG pCO2 (35-45) mmHg ABG pO2 (83-108) mmHg ABG O2 Saturation (94-97) % Sodium (137-145) mmol/L Carbon Dioxide (22-30) mmol/L BUN (9-20) mg/dL Creatinine (0.66-1.25) mg/dL Glucose (74-99) mg/dL POC Glucose (mg/dL) 182 H 153 H (75-99) mg/dL Calcium (8.4-10.2) mg/dL Ionized Calcium Leighann 4.2 L (4.5-5.3) mg/dL Phosphorus (2.5-4.5) mg/dL Total Bilirubin (0.2-1.3) mg/dL AST (17-59) U/L ALT (21-72) U/L Alkaline Phosphatase (38-126) U/L Total Protein (6.3-8.2) g/dL Albumin (3.5-5.0) g/dL Prealbumin (18.0-42.0) mg/dL Urine Protein (Negative) Urine Blood (Negative) Ur Leukocyte Esterase (Negative) Urine RBC (0-5) /hpf Urine WBC (0-5) /hpf Urine Bacteria (None) /hpf Hyaline Casts (0-2) /lpf Urine Mucus (None) /hpf Microbiology - Last 24 Hours (Table) 12/07/17 10:35 Blood Culture - Final Blood 12/07/17 11:47 Gram Stain - Preliminary Sputum Sputum Culture - Preliminary 12/07/17 11:20 Urine Culture - Preliminary Urine,Catheterized 12/06/17 22:12 Stool Culture - Preliminary Stool - Imaging and Cardiology Chest x-ray: report reviewed, image reviewed Assessment and Plan (1) DVT prophylaxis Current Visit: Yes Status: Acute Code(s): AGO0220 - SNOMED Code(s): 378223507 (2) Ischemic cardiomyopathy Current Visit: Yes Status: Acute Code(s): I25.5 - ISCHEMIC CARDIOMYOPATHY SNOMED Code(s): 841781978 (3) Coronary artery disease Current Visit: Yes Status: Chronic Code(s): I25.10 - ATHSCL HEART DISEASE OF [place] CORONARY ARTERY W/O ANG PCTRS SNOMED Code(s): 47185825 (4) Diabetes mellitus Current Visit: Yes Status: Chronic Code(s): E11.9 - TYPE 2 DIABETES MELLITUS WITHOUT COMPLICATIONS SNOMED Code(s): 56476078 (5) Hyperlipidemia Current Visit: Yes Status: Chronic Code(s): E78.5 - HYPERLIPIDEMIA, UNSPECIFIED SNOMED Code(s): 16410013 (6) Mitral regurgitation Current Visit: Yes Status: Chronic Code(s): I34.0 - NONRHEUMATIC MITRAL ( VALVE) INSUFFICIENCY SNOMED Code(s): 25790039 (7) Congestive heart failure with cardiomyopathy and cardiomegaly Current Visit: Yes Status: Acute Code(s): I50.9 - HEART FAILURE, UNSPECIFIED ; I42.9 - CARDIOMYOPATHY, UNSPECIFIED; I51.7 - CARDIOMEGALY SNOMED Code(s): 781468117925775 (8) S/P CABG x 4 Current Visit: Yes Status: Acute Code(s): Z95.1 - PRESENCE OF AORTOCORONARY BYPASS GRAFT SNOMED Code(s): 173980837 (9) S/P mitral valve repair Current Visit: Yes Status: Acute Code(s): Z98.890 - OTHER SPECIFIED POSTPROCEDURAL STATES SNOMED Code(s): 749078395 (10) Gram-negative pneumonia Current Visit: Yes Status: Acute Code(s): J15.6 - PNEUMONIA DUE TO OTHER GRAM-NEGATIVE BACTERIA SNOMED Code(s): 810893797 Plan: 1. Continue low-dose aspirin, Plavix, statin, subcu heparin, and beta michelle. 2. Continue amiodarone at 200 mg daily for A. fib prophylaxis. Continue digoxin. Digoxin level this morning is 1.1. 3. Pancultures re-drawn as patient's temperature elevated to 102.2 Fahrenheit. Blood cultures showing gram-negative rods. 4. Continue tube feedings per dietitian's recommendations. prealbumin is < 5 drawn on 12/07/2017. 5. D5W with 20 mEq of KCl infusing at KVO. Continue free water flushes 300 mL every 6 hours per nephrology recommendations. 6. Wean levo as tolerated. Wean propofol as tolerated. 7. Continue Lasix 40 mg IV push to every 8 hours per nephrology recommendations. 8. Keep Fong catheter for strict accurate intake and output. Fong catheter changed 11/27/17. 9. Ventilator management, bronchodilators per pulmonology. 10. Will monitor daily labs and x-rays. 11. Meropenem has been initiated by Dr. Paul for gram-negative rods on his blood cultures. 12. Pain control with current medication regimen. 13. GI/DVT prophylaxis. 14. Insulin drip/diabetic management per primary care service. 15. Continue FMS for liquid stools. 16. Dr. Gloria spoke at length with the patient's today at length. Dr. Gloria spoke to the patient's about the possibility of placing a [place]- Wendie catheter and tracheostomy tube. She is requesting per the patient's wishes to remove mechanical ventilator support tomorrow 12/09/2017. Her wishes are to place him on a no resuscitate status and to make him comfortable per his preoperative wishes. Time with Patient: Greater than 30 <Berto Gloria - Last Filed: 12/08/17 15:15> Objective - Vital Signs Vital signs: Vital Signs Temp 97.7 F 12/08/17 12:00 Pulse 76 12/08/17 12:05 Resp 29 H 12/08/17 12:00 BP 120/56 12/08/17 12:00 Pulse Ox 100 12/08/17 12:00 Intake & Output 12/07/17 12/08/17 12/08/17 18:59 06:59 18:59 Intake Total 9754.023 1262.857 975.540 Output Total 630 352 175 Balance 6555.330 1572.857 800.540 Weight 91.1 kg 92.1 kg 92.1 kg Intake: IV 299 276 115 D5w with KCl 20 Meq/l 1, 260 240 100 000 ml @ 20 mls/hr IV . Q24H JANNA Rx#:[id number] Pressure Bags 39 36 15 Intake, IV Titration 251.777 161.857 250.540 Amount Insulin Regular 100 unit 30.814 19.557 9.631 In Sodium Chloride 0.9% 100 ml @ Per Protocol IV .Q0M JANNA Rx#:[id number] Meropenem 1 gm In Sodium 100 Chloride 0.9% 100 ml @ 200 mls/hr IVPB ONCE STA Rx#:[id number] Norepinephrine 16 mg In 48.875 Dextrose 5% in Water 250 ml @ Titrate IV .Q0M JANNA Rx#:[id number] Norepinephrine 16 mg In 37.841 81.456 26.178 Sodium Chloride 0.9% 250 ml @ Titrate IV .Q0M JANNA Rx#:[id number] Propofol 1,000 mg In 134.247 60.844 114.731 Empty Bag 1 bag @ Titrate IV .Q0M JANNA Rx#: [id number] Oral 240 Tube Feeding 910 1120 490 Other 600 120 Output: Urine 630 352 175 Other: Voiding Method Indwelling Catheter Indwelling Catheter Indwelling Catheter ABP, PAP, CO, CI - Last Documented Arterial Blood Pressure 127/47 Pulmonary Artery Pressure 40/15 Cardiac Output 5.0 Cardiac Index 2.7 - Labs CBC & Chem 7: 12/08/17 04:00 12/08/17 04:00 Labs: Abnormal Lab Results - Last 24 Hours (Table) 12/07/17 12/07/17 12/07/17 Range/Units 08:45 16:05 18:57 WBC (3.8-10.6) k/uL RBC (4.30-5.90) m/uL Hgb (13.0-17.5) gm/dL Hct (39.0-53.0) % RDW (11.5-15.5) % Plt Count (150-450) k/uL Neutrophils # (1.3-7.7) k/uL Lymphocytes # (1.0-4.8) k/uL ABG pH (7.35-7.45) ABG pCO2 (35-45) mmHg ABG pO2 (83-108) mmHg ABG O2 Saturation (94-97) % Sodium (137-145) mmol/L Carbon Dioxide (22-30) mmol/L BUN (9-20) mg/dL Creatinine (0.66-1.25) mg/dL Glucose (74-99) mg/dL POC Glucose (mg/dL) 140 H 145 H (75-99) mg/dL Calcium (8.4-10.2) mg/dL Ionized Calcium Leighann (4.5-5.3) mg/dL Phosphorus (2.5-4.5) mg/dL Total Bilirubin (0.2-1.3) mg/dL AST (17-59) U/L ALT (21-72) U/L Alkaline Phosphatase (38-126) U/L Total Protein (6.3-8.2) g/dL Albumin (3.5-5.0) g/dL Prealbumin <5.0 L (18.0-42.0) mg/dL 12/07/17 12/07/17 12/07/17 Range/Units 20:08 21:57 23:51 WBC (3.8-10.6) k/uL RBC (4.30-5.90) m/uL Hgb (13.0-17.5) gm/dL Hct (39.0-53.0) % RDW (11.5-15.5) % Plt Count (150-450) k/uL Neutrophils # (1.3-7.7) k/uL Lymphocytes # (1.0-4.8) k/uL ABG pH (7.35-7.45) ABG pCO2 (35-45) mmHg ABG pO2 (83-108) mmHg ABG O2 Saturation (94-97) % Sodium (137-145) mmol/L Carbon Dioxide (22-30) mmol/L BUN (9-20) mg/dL Creatinine (0.66-1.25) mg/dL Glucose (74-99) mg/dL POC Glucose (mg/dL) 147 H 154 H 155 H (75-99) mg/dL Calcium (8.4-10.2) mg/dL Ionized Calcium Leighann (4.5-5.3) mg/dL Phosphorus (2.5-4.5) mg/dL Total Bilirubin (0.2-1.3) mg/dL AST (17-59) U/L ALT (21-72) U/L Alkaline Phosphatase (38-126) U/L Total Protein (6.3-8.2) g/dL Albumin (3.5-5.0) g/dL Prealbumin (18.0-42.0) mg/dL 12/08/17 12/08/17 12/08/17 Range/Units 01:51 03:57 04:00 WBC (3.8-10.6) k/uL RBC (4.30-5.90) m/uL Hgb (13.0-17.5) gm/dL Hct (39.0-53.0) % RDW (11.5-15.5) % Plt Count (150-450) k/uL Neutrophils # (1.3-7.7) k/uL Lymphocytes # (1.0-4.8) k/uL ABG pH (7.35-7.45) ABG pCO2 (35-45) mmHg ABG pO2 (83-108) mmHg ABG O2 Saturation (94-97) % Sodium 136 L (137-145) mmol/L Carbon Dioxide 21 L (22-30) mmol/L BUN 126 H* (9-20) mg/dL Creatinine 2.10 H (0.66-1.25) mg/dL Glucose 166 H (74-99) mg/dL POC Glucose (mg/dL) 199 H 173 H (75-99) mg/dL Calcium 6.7 L (8.4-10.2) mg/dL Ionized Calcium Leighann (4.5-5.3) mg/dL Phosphorus 6.2 H (2.5-4.5) mg/dL Total Bilirubin 2.0 H (0.2-1.3) mg/dL AST 230 H (17-59) U/L ALT 147 H (21-72) U/L Alkaline Phosphatase 317 H (38-126) U/L Total Protein 5.3 L (6.3-8.2) g/dL Albumin 1.9 L (3.5-5.0) g/dL Prealbumin (18.0-42.0) mg/dL 12/08/17 12/08/17 12/08/17 Range/Units 04:00 05:12 05:52 WBC 11.1 H (3.8-10.6) k/uL RBC 2.59 L (4.30-5.90) m/uL Hgb 7.8 L (13.0-17.5) gm/dL Hct 24.7 L (39.0-53.0) % RDW 18.6 H (11.5-15.5) % Plt Count 97 L (150-450) k/uL Neutrophils # 9.8 H (1.3-7.7) k/uL Lymphocytes # 0.5 L (1.0-4.8) k/uL ABG pH 7.27 L (7.35-7.45) ABG pCO2 46 H (35-45) mmHg ABG pO2 58 L (83-108) mmHg ABG O2 Saturation 87.9 L (94-97) % Sodium (137-145) mmol/L Carbon Dioxide (22-30) mmol/L BUN (9-20) mg/dL Creatinine (0.66-1.25) mg/dL Glucose (74-99) mg/dL POC Glucose (mg/dL) 182 H (75-99) mg/dL Calcium (8.4-10.2) mg/dL Ionized Calcium Leighann (4.5-5.3) mg/dL Phosphorus (2.5-4.5) mg/dL Total Bilirubin (0.2-1.3) mg/dL AST (17-59) U/L ALT (21-72) U/L Alkaline Phosphatase (38-126) U/L Total Protein (6.3-8.2) g/dL Albumin (3.5-5.0) g/dL Prealbumin (18.0-42.0) mg/dL 12/08/17 12/08/17 Range/Units 06:20 08:25 WBC (3.8-10.6) k/uL RBC (4.30-5.90) m/uL Hgb (13.0-17.5) gm/dL Hct (39.0-53.0) % RDW (11.5-15.5) % Plt Count (150-450) k/uL Neutrophils # (1.3-7.7) k/uL Lymphocytes # (1.0-4.8) k/uL ABG pH (7.35-7.45) ABG pCO2 (35-45) mmHg ABG pO2 (83-108) mmHg ABG O2 Saturation (94-97) % Sodium (137-145) mmol/L Carbon Dioxide (22-30) mmol/L BUN (9-20) mg/dL Creatinine (0.66-1.25) mg/dL Glucose (74-99) mg/dL POC Glucose (mg/dL) 153 H (75-99) mg/dL Calcium (8.4-10.2) mg/dL Ionized Calcium Leighann 4.2 L (4.5-5.3) mg/dL Phosphorus (2.5-4.5) mg/dL Total Bilirubin (0.2-1.3) mg/dL AST (17-59) U/L ALT (21-72) U/L Alkaline Phosphatase (38-126) U/L Total Protein (6.3-8.2) g/dL Albumin (3.5-5.0) g/dL Prealbumin (18.0-42.0) mg/dL Microbiology - Last 24 Hours (Table) 12/07/17 10:35 Blood Culture Gram Stain - Preliminary Blood Blood Culture - Preliminary Gram Neg Bacilli 12/07/17 11:47 Gram Stain - Preliminary Sputum Sputum Culture - Preliminary Gram Neg Bacilli 12/07/17 10:35 Blood Culture - Final Blood 12/07/17 11:20 Urine Culture - Preliminary Urine,Catheterized Assessment and Plan Plan: As outlined above, I had a long thoughtful discussion with the patient's . She and her carefully articulated his wishes prior to operation and his course is no longer consistent with his wishes. Given this and his dismal prognosis, I fully support his and his 's wishes to proceed with withdrawal of care after all concerned have their opportunity to pay respects, etc. Palliative care will be consulted and comfort measures begun.
[2017-12-08 15:40] VITALS: BMI 29.1
--- NOTE | 2017-12-08 16:01 | P.PN ---
Subjective Progress Note Date: 12/08/17 On 12/06/2017 I'm seeing this patient for a follow-up. This patient is post coronary artery bypass surgery and mitral valve repair and left 8 she'll appendage clipping and the patient is postop day #20. He is comorbidities include coronary artery disease, severe ischemic cardiomyopathy preoperatively, moderate degree of mitral regurgitation. He also has diabetes mellitus, hypertension and hyperlipidemia and he started off with a FEV1 of 43% of predicted on his preoperative spirometry On today's evaluation, the patient is sedated on Diprivan and is calm and comfortable. I noted that over the past 1 week the patient has been given fluids aggressively and he obviously shows signs of fluid overload. Continued lower extremity edema bilaterally and he also has developed testicular edema. He has upper extremity edema in general. The surgeons evaluated the patient. They stopped IV fluids and start the patient on diuretics. Follow pulmonary standpoint, the patient has shown some pulmonary vessel congestion and small effusion left lung base. ET tube is in a good location. The patient remains on assist control mode of ventilation at the rate of 20 with tidal volume of 400 with an FiO2 of 50% and a PEEP of 5. His blood gases shows a pH of 7.4 with a pCO2 of 36 and pO2 of 88 and this was done and FiO2 of 50%. He has grown Klebsiella in his sputum, and we we were not concerned of any pneumonia. The patient completed the course of IV Zosyn I think is central. Day antibiotic specially the patient is still having diarrhea and FMS is still in place. Chest tubes have been removed. Function is stable at creatinine of 1.6. Liver function tests improved yet not completely normalized. He remains in atrial fibrillation. He continues to be tachycardic and he remains on oral amiodarone and he was also given digoxin for rate control by cardiothoracic surgery. Malarone is running at 0.2 mics and the patient is also on norepinephrine infusion for blood pressure control. The Dobbhoff is in place and the patient is receiving enteral feeding for nutritional support. Hemoglobin from today is up to 7.8 after receiving a unit of packed RBC yesterday. The patient is afebrile. Platelet counts are stable. He arouses off sedation. Urine output is order of 60-90 mL an hour. On 12/07/2017, patient is being seen for a follow-up. Is postop day #21. I'll intubated on mechanical ventilator. The patient is on the same vent setting include an assist-control mode of ventilation with a rate of 20 and tidal volume of 400 with an FiO2 of 50% PEEP of 5. Morning blood gases showed a pH of 7.37 with a pCO2 of 38 and pO2 115. Chest x-ray shows some small bilateral pleural effusions worse on the left. ET tube is in a good location. There is also mild component of pulmonary vessel congestion and atelectatic changes in lung bases bilaterally. The patient is still hypotensive. The patient is on 70 mics of norepinephrine infusion for blood pressure control. Milrinone infusion has been discontinued. Restart on Lasix drip and despite that he remains in a positive fluid balance. In fact his other significant fluids positivity resulting into edema in the both upper and lower extremity and his extensive testicular edema. The patient is on Lasix 40 mg IV every 12 hours. The neck fluid balance over the past 24 hours is +5.7 L and 93.4 L 4 this morning. The patient is receiving tube feeds for nutritional support which is tolerating. He is having liquidy diarrhea. FMS system is still in place. The patient is receiving insulin drip for blood sugar control. The patient is also on norepinephrine infusion. The rest of the fluids are all KVO. No chills. No fever. Still in atrial fibrillation with a controlled rate. The patient is on amiodarone 200 mg by mouth daily. Metoprolol is being given once his blood pressure is more stable. Digoxin was also evidence for rate control. His current rate somewhat between 90-110 irregular in A. fib. The surgical wound site over the sternum is dry clean and intact. No fever. No chills. No other significant events overnight. Renal function is due to be. The creatinine of 1.8. On 12/08/2017 I'm seeing this patient for postop day #22 in the intensive care units. Noted the patient is still on a mechanical ventilator. Overnight he developed some increased shortness of breath even while a sedation and while on a mechanical ventilator. He desaturated. The blood gases showed a pH of 7.27 with a pCO2 of 46 and pO2 of 58. Based on that, the patient was brought up to a PEEP of 10 with an FiO2 being treated up to 60% and a respiratory rate of 28. Oxidation general improved. Chest x-ray from today shows worsening consolidation of the left lung base and there is cardiomegaly and findings consistent with CHF. ET tube is in a good location still. The patient also has a right IJ triple-lumen catheter in place. He had recent blood culture that showed gram-negative bacillus. He was given a dose of IV Merrem. ID was contacted of these changes note that the gram-negative bacillus was also cultured in his sputum. As such there is an obvious consented for a pneumonia, ventilator acquired pneumonia is definitely a constellation as the patient has been intubated for an extented .. White cell count is at 11.1. This morning his cardiac rhythm is back to sinus. He has flipped into sinus rhythm from being in A. fib for the past few weeks. He is on 3-4 mics of norepinephrine infusion. Urine output is diminished and he remains to be on a positive fluid balance despite our efforts to diurese the patient. He is currently receiving IV Lasix 40 mg every 8 hours in a net fluid balance over the past 24 hours has been +2.8 L. The patient was further given a sedation holiday this morning. He got to a point where he open his eyes, yet, he had a blank stare and was not following any commands. He was becoming more restless and tachypneic and becoming more asynchronous with the mechanical ventilator and double stacking. Based on that, the sedation was restarted and the patient was placed again on Diprivan at 20 mics. He is still on tube feeds. On exam he shows significant edema upper and lower extremity addition to scrotal edema. His sodium level is at 136. LFTs are mildly impaired slightly worse compared to yesterday. Renal function continues to to be impaired in the creatinine is up to 2.1. BUN is up to 126. Objective - Vital Signs Vital signs: Vital Signs Temp 97.7 F 12/08/17 12:00 Pulse 75 12/08/17 15:44 Resp 29 H 12/08/17 15:30 BP 110/49 12/08/17 15:30 Pulse Ox 100 12/08/17 15:30 Intake & Output 12/07/17 12/08/17 12/08/17 18:59 06:59 18:59 Intake Total 9225.424 3652.857 1254.540 Output Total 630 352 220 Balance 8234.213 5264.857 1034.540 Weight 91.1 kg 92.1 kg 92.1 kg Intake: IV 299 276 184 D5w with KCl 20 Meq/l 1, 260 240 160 000 ml @ 20 mls/hr IV . Q24H [facility] Rx#:[id number] Pressure Bags 39 36 24 Intake, IV Titration 251.777 161.857 250.540 Amount Insulin Regular 100 unit 30.814 19.557 9.631 In Sodium Chloride 0.9% 100 ml @ Per Protocol IV .Q0M [facility] Rx#:[id number] Meropenem 1 gm In Sodium 100 Chloride 0.9% 100 ml @ 200 mls/hr IVPB [facility] Rx#:[id number] Norepinephrine 16 mg In 48.875 Dextrose 5% in Water 250 ml @ Titrate IV .Q0M [facility] Rx#:[id number] Norepinephrine 16 mg In 37.841 81.456 26.178 Sodium Chloride 0.9% 250 ml @ Titrate IV .Q0M [facility] Rx#:[id number] Propofol 1,000 mg In 134.247 60.844 114.731 Empty Bag 1 bag @ Titrate IV .Q0M [facility] Rx#: [id number] Oral 240 Tube Feeding 910 1120 700 Other 600 120 Output: Urine 630 352 220 Other: Voiding Method Indwelling Catheter Indwelling Catheter Indwelling Catheter ABP, PAP, CO, CI - Last Documented Arterial Blood Pressure 124/45 Pulmonary Artery Pressure 40/15 Cardiac Output 5.0 Cardiac Index 2.7 - Exam - Constitutional General appearance: Present: no acute distress - Respiratory Details: Lungs sounds diminished bilaterally with scattered rhonchi. Respirations even, nonlabored on mechanical ventilation. The patient becomes quite uncomfortable and very much asynchronous with a mechanical ventilator was taken off sedation. - Cardiovascular Details: S1, S2 present. No tachycardic and patient is currently on a regular sinus rhythm . Sternum stable. A/V epicardial pacemaker wires present, grounded. Palpable peripheral pulses bilaterally. Bilateral lower extremity, scrotal edema present. Right radial arterial line, left brachial PICC line present. - Gastrointestinal Gastrointestinal Comment(s): Abdomen soft, nontender, nondistended. Active bowel sounds present 4 quadrants. Dobbhoff present. Vital tube feedings infusing at goal of 70 mL per hour. Fecal management system present, positive diarrhea. - Genitourinary Genitourinary Comment(s): Fong present draining clear yellow urine. - Integumentary Integumentary Comment(s): Skin warm and dry. Sternal incision well approximated and covered with dry intact dressing. Left lower extremity EVH site well approximated. Stage II pressure ulcer to coccyx, covered by Optisol foam dressing. The patient has zinc oxide being applied to his scrotal swelling. The PICC line site in his left upper extremity is clean and exit site shows no erythema or drainage or swelling. - Neurologic Neurologic Comment(s): Currently sedated on mechanical ventilation. No meaningful neurologic recovery while the patient off sedation. He opens his eyes. He thrashes yet he doesn't follow any commands. He also becomes asynchronous with a mechanical ventilator. - Musculoskeletal Musculoskeletal: Present: generalized weakness - Labs CBC & Chem 7: 12/08/17 04:00 12/08/17 04:00 Labs: Abnormal Lab Results - Last 24 Hours (Table) 12/07/17 12/07/17 12/07/17 Range/Units 08:45 16:05 18:57 WBC (3.8-10.6) k/uL RBC (4.30-5.90) m/uL Hgb (13.0-17.5) gm/dL Hct (39.0-53.0) % RDW (11.5-15.5) % Plt Count (150-450) k/uL Neutrophils # (1.3-7.7) k/uL Lymphocytes # (1.0-4.8) k/uL ABG pH (7.35-7.45) ABG pCO2 (35-45) mmHg ABG pO2 (83-108) mmHg ABG O2 Saturation (94-97) % Sodium (137-145) mmol/L Carbon Dioxide (22-30) mmol/L BUN (9-20) mg/dL Creatinine (0.66-1.25) mg/dL Glucose (74-99) mg/dL POC Glucose (mg/dL) 140 H 145 H (75-99) mg/dL Calcium (8.4-10.2) mg/dL Ionized Calcium Leighann (4.5-5.3) mg/dL Phosphorus (2.5-4.5) mg/dL Total Bilirubin (0.2-1.3) mg/dL AST (17-59) U/L ALT (21-72) U/L Alkaline Phosphatase (38-126) U/L Total Protein (6.3-8.2) g/dL Albumin (3.5-5.0) g/dL Prealbumin <5.0 L (18.0-42.0) mg/dL 12/07/17 12/07/17 12/07/17 Range/Units 20:08 21:57 23:51 WBC (3.8-10.6) k/uL RBC (4.30-5.90) m/uL Hgb (13.0-17.5) gm/dL Hct (39.0-53.0) % RDW (11.5-15.5) % Plt Count (150-450) k/uL Neutrophils # (1.3-7.7) k/uL Lymphocytes # (1.0-4.8) k/uL ABG pH (7.35-7.45) ABG pCO2 (35-45) mmHg ABG pO2 (83-108) mmHg ABG O2 Saturation (94-97) % Sodium (137-145) mmol/L Carbon Dioxide (22-30) mmol/L BUN (9-20) mg/dL Creatinine (0.66-1.25) mg/dL Glucose (74-99) mg/dL POC Glucose (mg/dL) 147 H 154 H 155 H (75-99) mg/dL Calcium (8.4-10.2) mg/dL Ionized Calcium Leighann (4.5-5.3) mg/dL Phosphorus (2.5-4.5) mg/dL Total Bilirubin (0.2-1.3) mg/dL AST (17-59) U/L ALT (21-72) U/L Alkaline Phosphatase (38-126) U/L Total Protein (6.3-8.2) g/dL Albumin (3.5-5.0) g/dL Prealbumin (18.0-42.0) mg/dL 12/08/17 12/08/17 12/08/17 Range/Units 01:51 03:57 04:00 WBC (3.8-10.6) k/uL RBC (4.30-5.90) m/uL Hgb (13.0-17.5) gm/dL Hct (39.0-53.0) % RDW (11.5-15.5) % Plt Count (150-450) k/uL Neutrophils # (1.3-7.7) k/uL Lymphocytes # (1.0-4.8) k/uL ABG pH (7.35-7.45) ABG pCO2 (35-45) mmHg ABG pO2 (83-108) mmHg ABG O2 Saturation (94-97) % Sodium 136 L (137-145) mmol/L Carbon Dioxide 21 L (22-30) mmol/L BUN 126 H* (9-20) mg/dL Creatinine 2.10 H (0.66-1.25) mg/dL Glucose 166 H (74-99) mg/dL POC Glucose (mg/dL) 199 H 173 H (75-99) mg/dL Calcium 6.7 L (8.4-10.2) mg/dL Ionized Calcium Leighann (4.5-5.3) mg/dL Phosphorus 6.2 H (2.5-4.5) mg/dL Total Bilirubin 2.0 H (0.2-1.3) mg/dL AST 230 H (17-59) U/L ALT 147 H (21-72) U/L Alkaline Phosphatase 317 H (38-126) U/L Total Protein 5.3 L (6.3-8.2) g/dL Albumin 1.9 L (3.5-5.0) g/dL Prealbumin (18.0-42.0) mg/dL 12/08/17 12/08/17 12/08/17 Range/Units 04:00 05:12 05:52 WBC 11.1 H (3.8-10.6) k/uL RBC 2.59 L (4.30-5.90) m/uL Hgb 7.8 L (13.0-17.5) gm/dL Hct 24.7 L (39.0-53.0) % RDW 18.6 H (11.5-15.5) % Plt Count 97 L (150-450) k/uL Neutrophils # 9.8 H (1.3-7.7) k/uL Lymphocytes # 0.5 L (1.0-4.8) k/uL ABG pH 7.27 L (7.35-7.45) ABG pCO2 46 H (35-45) mmHg ABG pO2 58 L (83-108) mmHg ABG O2 Saturation 87.9 L (94-97) % Sodium (137-145) mmol/L Carbon Dioxide (22-30) mmol/L BUN (9-20) mg/dL Creatinine (0.66-1.25) mg/dL Glucose (74-99) mg/dL POC Glucose (mg/dL) 182 H (75-99) mg/dL Calcium (8.4-10.2) mg/dL Ionized Calcium Leighann (4.5-5.3) mg/dL Phosphorus (2.5-4.5) mg/dL Total Bilirubin (0.2-1.3) mg/dL AST (17-59) U/L ALT (21-72) U/L Alkaline Phosphatase (38-126) U/L Total Protein (6.3-8.2) g/dL Albumin (3.5-5.0) g/dL Prealbumin (18.0-42.0) mg/dL 12/08/17 12/08/17 Range/Units 06:20 08:25 WBC (3.8-10.6) k/uL RBC (4.30-5.90) m/uL Hgb (13.0-17.5) gm/dL Hct (39.0-53.0) % RDW (11.5-15.5) % Plt Count (150-450) k/uL Neutrophils # (1.3-7.7) k/uL Lymphocytes # (1.0-4.8) k/uL ABG pH (7.35-7.45) ABG pCO2 (35-45) mmHg ABG pO2 (83-108) mmHg ABG O2 Saturation (94-97) % Sodium (137-145) mmol/L Carbon Dioxide (22-30) mmol/L BUN (9-20) mg/dL Creatinine (0.66-1.25) mg/dL Glucose (74-99) mg/dL POC Glucose (mg/dL) 153 H (75-99) mg/dL Calcium (8.4-10.2) mg/dL Ionized Calcium Leighann 4.2 L (4.5-5.3) mg/dL Phosphorus (2.5-4.5) mg/dL Total Bilirubin (0.2-1.3) mg/dL AST (17-59) U/L ALT (21-72) U/L Alkaline Phosphatase (38-126) U/L Total Protein (6.3-8.2) g/dL Albumin (3.5-5.0) g/dL Prealbumin (18.0-42.0) mg/dL Microbiology - Last 24 Hours (Table) 12/07/17 11:20 Urine Culture - Final Urine,Catheterized 12/07/17 10:35 Blood Culture Gram Stain - Preliminary Blood Blood Culture - Preliminary Gram Neg Bacilli 12/07/17 11:47 Gram Stain - Preliminary Sputum Sputum Culture - Preliminary Gram Neg Bacilli 12/07/17 10:35 Blood Culture - Final Blood Assessment and Plan Plan: #1. Symptomatic multivessel coronary artery disease, with total occlusion of the LAD, 70% stenosis of the diagonal artery, 95% stenosis of the circumflex, diffuse disease in the RCA with 70% stenosis at the bifurcation of the PDA and PLV. Patient is scheduled for coronary artery bypass grafting and mitral valve repair on 11/17/2017. Mitral valve regurgitation, post mitral valve repair, patient postop day #22 #2 sepsis with a pneumonia involving the left lower lung, with gram-negative as gram-negative bacillus was cultured both in the sputum and in the blood. Currently on IV Merrem. Patient is also on pressors. There is been worsening and oxygenation and the appropriate vent changes were done to improve the oxygenation and ventilation at this point in time. #3 shock with ongoing difficulties with hypotension. The patient's shock is a combination of septic and cardiogenic at this point. He has gram-negative bacillus in his sputum and blood and there is a concern for a healthcare associated/ventilator as she had pneumonia with gram-negative bacteria. He was started on IV Merrem as an empiric antibiotic coverage pending further cultures. He is currently on 3 mics of norepinephrine infusion. #4 Ischemic cardiomyopathy, with severe left ventricular systolic dysfunction #5. Diabetes mellitus type 2, the patient is on insulin drip #6. Acute hypoxic Respiratory failure, intubated on mechanical ventilator. The patient has been extubated twice and he failed extubation and had to be reintubated. At this point in time there is a concern for left lower lobe pneumonia with gram-negative bacillus and the patient is currently on IV Merrem. The patient is septic and the gram-negative bacillus is also being cultured in the blood. #7. Postoperative anemia and expected outcome of cardiothoracic surgery and prolonged ICU stay and the patient is requiring on and off packed RBC transfusion. #8. Acute gram-negative septicemia with gram-negative bacillus and the blood. Other source of infection cannot be completely excluded including line an intra- abdominal source of infection. Nevertheless I think the origin of the sepsis is the left lower lobe of the lung and left lung pneumonia. #9 acute hepatocellular injury/shock liver secondary to above #10 acute kidney injury on top of chronic renal failure #11 ischemic colitis with secondary diarrhea #12 thrombocytopenia, improving, and expected outcome of cardiac surgery #13 chronic atrial fibrillation him a still on amiodarone , currently his rhythm is sinus and the patient converted to sinus rhythm yesterday Plan Condition is extremely critical. Patient has been on a mechanical ventilator and is post op course has been extensively complicated than his postop day #22. His been in intensive care unit for almost 3 weeks for now. This obviously puts him at a disadvantage special that he has failed to previous extubation and currently is in a septic state with gram-negative bacillus likely secondary to an underlying pneumonia. We'll be awaiting further cultures. Will be monitoring the cultures and we'll keep the IV Merrem for now. I may consider removing the PICC line at a later stage and replacing it with triple lumen catheter till his septicemia is under better control. Keep pressors and titrate the dose to maintain a mean arterial pressure above 65. Monitor renal function. Monitor liver function tests. His cardiac rhythm is sinus. Continue enteral feeding for nutritional support. Sedation holiday was given. He is encephalopathic. Unable to tolerate sedation holiday due to asynchronous with a mechanical ventilator. Placed back on sedation. His has declined PEG and trach which she'll be a reasonable treatment choice for this patient. She made a decision based on our discussion that she did with her preoperatively. For now the treatment essentially supportive. Prognosis poor. Outcome is poor baseline above-mentioned comorbidities. At the care evaluation more than 30 minutes. Case was discussed also with the cardiothoracic surgeon. Time with Patient: Greater than 30
[2017-12-08 16:42] LABS: Glucose,Whole Blood 174 mg/dL (75-99)
[2017-12-08 16:42] LABS: Glucose,Whole Blood 157 mg/dL (75-99)
[2017-12-08 16:42] LABS: Glucose,Whole Blood 184 mg/dL (75-99)
[2017-12-08 18:38] LABS: Glucose,Whole Blood 174 mg/dL (75-99)
[2017-12-08 20:26] LABS: Glucose,Whole Blood 180 mg/dL (75-99)
[2017-12-08 20:30] LABS: Glucose,Whole Blood 167 mg/dL (75-99)
[2017-12-08] MEDS: ERYTHROMYCIN 5 MG/GM OPHTH OINT 3.5 GM TUBE LEFT EYE SCH (21:09)
[2017-12-08] MEDS: CHLORHEXIDINE GLUCONATE 15 ML CUP MUCOUS MEM SCH (21:09)
[2017-12-08] MEDS: ATORVASTATIN 40 MG TAB PO SCH (21:09)
[2017-12-08] MEDS: prednisoLONE ACETATE 1% OPHTH DROPS 5 ML BTL LEFT EYE SCH (21:39)
[2017-12-08 22:24] LABS: Glucose,Whole Blood 186 mg/dL (75-99)
[2017-12-09 00:03] LABS: Glucose,Whole Blood 186 mg/dL (75-99)
[2017-12-09] MEDS: IPRATROPIUM-ALBUTEROL 3 ML NEB INHALATION SCH ×5 (00:34→16:19)
[2017-12-09] MEDS: FUROSEMIDE 10 MG/ML 4 ML VIAL IV SCH ×3 (01:26→16:27)
[2017-12-09] MEDS: HEPARIN SODIUM,PORCINE 5,000 UNIT/ML 1 ML VIAL SQ SCH ×3 (01:26→16:28)
[2017-12-09] MEDS: PROPOFOL 1,000 MG in EMPTY BAG 1 BAG IV SCH ×3 (01:26→15:30)
[2017-12-09 02:33] LABS: Glucose,Whole Blood 176 mg/dL (75-99)
[2017-12-09] MEDS: NOREPINEPHRINE 16 MG in SODIUM CHLORIDE 0.9% 250 ML IV SCH (02:33)
[2017-12-09 04:12] LABS: Glucose,Whole Blood 169 mg/dL (75-99)
[2017-12-09 05:19] LABS: ABG Base Excess -6.7 mmol/L; ABG HCO3 19 mmol/L (21-25); ABG PCO2 36 mmHg (35-45); ABG PH 7.34 (7.35-7.45); ABG PO2 294 mmHg (83-108); ABG TCO2 20 mmol/L (19-24)
[2017-12-09 05:35] LABS: Anisocytosis Slight; Basophils % (A) 0 %; Eosinophils # (A) 0.3 k/uL (0-0.7); Eosinophils % (A) 3 %; HCT 22.8 % (39.0-53.0); HGB 7.3 gm/dL (13.0-17.5); Hypochromasia Moderate; Lymphocytes # (A) 0.3 k/uL (1.0-4.8); Lymphocytes % (A) 3 %; MCH 29.9 pg (25.0-35.0); MCHC 32.1 g/dL (31.0-37.0); MCV 93.4 fL (80.0-100.0); Mean Platelet Volume 11.9; Monocytes # (A) 0.7 k/uL (0-1.0); Monocytes % (A) 7 %; Neutrophils # (A) 8.7 k/uL (1.3-7.7); Neutrophils % (A) 86 %; RBC 2.45 m/uL (4.30-5.90); RDW 18.1 % (11.5-15.5); WBC 10.1 k/uL (3.8-10.6)
[2017-12-09 05:45] LABS: Platelet Count 89 k/uL (150-450)
[2017-12-09 05:46] LABS: Albumin 1.7 g/dL (3.5-5.0); Phosphorus 6.5 mg/dL (2.5-4.5); Potassium 5.2 mmol/L (3.5-5.1); Total Bilirubin 1.8 mg/dL (0.2-1.3); Total Protein 5.1 g/dL (6.3-8.2)
[2017-12-09 06:00] LABS: Calcium 6.5 mg/dL (8.4-10.2)
[2017-12-09 06:14] LABS: Glucose,Whole Blood 170 mg/dL (75-99)
[2017-12-09] MEDS: DIGOXIN 125 MCG TAB PO SCH (08:28)
[2017-12-09] MEDS: ASPIRIN 81 MG PO SCH (08:28)
[2017-12-09] MEDS: FERROUS SULFATE ORAL ELIXIR 300 MG/5 ML CUP PO SCH (08:28)
[2017-12-09] MEDS: CALCIUM CARBONATE LIQUID 500 MG/5 ML CUP PO SCH ×2 (08:28→12:40)
[2017-12-09] MEDS: LACTOBACILLUS ACIDOPH & BULGAR 1 EACH PACKET PO SCH ×2 (08:28→12:40)
[2017-12-09] MEDS: ASCORBIC ACID 500 MG TAB PO SCH (08:28)
[2017-12-09] MEDS: SERTRALINE 25 MG TAB PO SCH (08:28)
[2017-12-09] MEDS: CLOPIDOGREL 75 MG TAB PO SCH (08:28)
[2017-12-09] MEDS: MIDODRINE 5 MG TAB PO SCH ×2 (08:28→12:40)
[2017-12-09] MEDS: AMIODARONE 200 MG TAB PO SCH (08:28)
[2017-12-09] MEDS: PANTOPRAZOLE 40 MG/10 ML VIAL IVP SCH (08:29)
[2017-12-09] MEDS: CHLORHEXIDINE GLUCONATE 15 ML CUP MUCOUS MEM SCH (08:30)
[2017-12-09] MEDS: MEROPENEM 1 GM in SODIUM CHLORIDE 0.9% 100 ML IVPB SCH (08:30)
[2017-12-09] MEDS: METOPROLOL TARTRATE 25 MG TAB PO SCH (08:30)
[2017-12-09 08:31] LABS: Glucose,Whole Blood 150 mg/dL (75-99)
[2017-12-09 10:10] LABS: Glucose,Whole Blood 122 mg/dL (75-99)
[2017-12-09] MEDS: D5W WITH KCL 20 MEQ/L 1,000 ML IV SCH (10:10)
[2017-12-09 12:00] LABS: Glucose,Whole Blood 100 mg/dL (75-99)
[2017-12-09 12:11] VITALS: TEMP 98
--- NOTE | 2017-12-09 13:09 | P.PN ---
Progress Note - Text Progress Note Date: 12/09/17 On today's evaluation of 12/09/2017, the patient shows no signs of improvement and he shows a steady downhill course with worsening condition especially with recent septicemia and pneumonia. Based on all this, decision was made to proceed with comfort care measures. Cardiothoracic surgery discussed the case with the family and the family/the was agreeable to that. As such, the patient would have comfort care measures today. No further blood draws will be done. No further intervention will be done. We'll continue supportive care and would proceed with comfort care measures once a final okay is given by the family. We'll sign off the case accordingly.
--- NOTE | 2017-12-09 14:24 | P.PN ---
Subjective Progress Note Date: 12/09/17 Principal diagnosis: Triple-vessel coronary artery disease, severe ischemic cardiomyopathy with a preoperative ejection fraction of 25-30%, moderate mitral valve regurgitation, mild tricuspid valve regurgitation, diabetes mellitus type 2, hyperlipidemia, moderate to severe restrictive lung disease with a preoperative FEV1 of 43% of predicted value, preoperative bilateral small to moderate pleural effusions, evidence of diffuse calcific coronary artery disease, and evidence of old inferior posterior, apical myocardial infarction and remote history of tobacco dependence. POD #23 placement of intra-aortic balloon pump. POD #22 quadruple coronary artery bypass grafting using the left internal mammary artery to the left anterior descending coronary artery, a reverse greater saphenous vein graft from the aorta to the diagonal coronary artery, reverse greater saphenous vein graft from the aorta to the first obtuse marginal coronary artery, a reverse greater saphenous vein graft from the aorta to the posterior descending coronary artery. A mitral valve repair using a complete annuloplasty with a 30 mm Kapoor IMR ring, exclusion of the left atrial appendage using a 35 mm Atriclip, intraoperative transesophageal echocardiogram and epi-aortic scanning, and intraoperative graft flow measurements using the [employer] system. Postoperative normochromic anemia, and expected outcome of surgery secondary to cardiopulmonary bypass and hemodilution. Postoperative thrombocytopenia, an expected outcome of surgery. Postoperative atrial fibrillation, an expected outcome of surgery. Postoperative elevated transaminases, an unexpected outcome of surgery, likely secondary to low flow state post surgery. Postoperative acute kidney injury, an unexpected outcome of surgery, likely secondary to low flow state post surgery. Postoperative acute metabolic acidosis, lactic acidosis, reintubation, an unexpected outcome. Postoperative cardiogenic shock, an unexpected outcome. Postoperative hypernatremia, an unexpected outcome. Acute hypoxemic respiratory failure requiring a second reintubation, an unexpected outcome. The patient remains intubated with mechanical ventilator support. Sedation remains with propofol at 30 mcg/kg/m. A Dobbhoff tube remains with tube feedings infusing at 70 mL an hour using vital AF with automatic water flushes. Norepinephrine drip is infusing at 7 mcg/m. Primacor drip remains was discontinued on 12/07/2017. The patient remains afebrile. Current laboratory results show a WBC count of 10.1, hemoglobin 7.3, hematocrit 22.8, platelet count of 89, BUN 137, creatinine 2.50. Dr. Gloria from cardiothoracic surgery had a long conversation with the patient's yesterday regarding continuation of care with recommendations for tracheostomy placement and [place]- Wendie catheter placement. The patient's would rather not proceed with tracheostomy and [place]ie catheter placement and would like to proceed with withdrawal of mechanical ventilator support and place the patient on comfort care measures per the patient's preoperative wishes. Objective - Vital Signs Vital signs: Vital Signs Temp 97.9 F 12/09/17 04:00 Pulse 84 12/09/17 08:15 Resp 23 12/09/17 07:00 BP 137/56 12/09/17 07:00 Pulse Ox 98 12/09/17 07:00 Intake & Output 12/08/17 12/09/17 12/09/17 18:59 06:59 18:59 Intake Total 6193.067 0637.075 100 Output Total 320 675 Balance 7160.403 8085.075 100 Weight 92.1 kg 97.1 kg Intake: IV 253 376 D5w with KCl 20 Meq/l 1, 220 240 000 ml @ 20 mls/hr IV . Q24H JANNA Rx#:[id number] Meropenem 1 gm In Sodium 100 Chloride 0.9% 100 ml @ 200 mls/hr IVPB ONCE STA Rx#:[id number] Pressure Bags 33 36 Intake, IV Titration 331.316 195.075 100 Amount Insulin Regular 100 unit 23.575 24.417 In Sodium Chloride 0.9% 100 ml @ Per Protocol IV .Q0M JANNA Rx#:[id number] Meropenem 1 gm In Sodium 100 Chloride 0.9% 100 ml @ 200 mls/hr IVPB ONCE STA Rx#:[id number] Norepinephrine 16 mg In 26.178 70.658 Sodium Chloride 0.9% 250 ml @ Titrate IV .Q0M JANNA Rx#:[id number] Propofol 1,000 mg In 181.563 100 100 Empty Bag 1 bag @ Titrate IV .Q0M JANNA Rx#: [id number] Tube Feeding 910 1050 Other 120 630 Output: Urine 320 175 Stool 500 Other: Voiding Method Indwelling Catheter Indwelling Catheter ABP, PAP, CO, CI - Last Documented Arterial Blood Pressure 136/42 Pulmonary Artery Pressure 40/15 Cardiac Output 5.0 Cardiac Index 2.7 - Constitutional Constitutional Comment(s): Patient is currently sedated on Diprivan drip at 30 mcg/kg/m. He is not following any verbal commands or responding to any noxious stimuli at this time. General appearance: Present: no acute distress - Respiratory Details: Lung sounds with few scattered rhonchi throughout, diminished his bilateral bases. Respirations are symmetrical and unlabored with mechanical ventilator support. Current ventilator settings are as follows: Assist control 28, tidal volume 500, FiO2 50%, PEEP of 10. Oxygen saturations on current ventilator settings are 99%. This morning ABG results are as follows pH 7.34, pCO2 36, pO2 294, HCO3 19, O2 sat 100%, base excess -6.7. #8 ET tube present and secured at 24 cm at the lip. - Cardiovascular Details: Regular rhythm and rate. S1 and S2 present, negative for S3, gallop or murmur. Sternum is stable. Bedside telemetry showing normal sinus rhythm heart rate 82. Atrial and ventricular epicardial pacemaker wires in place and grounded. Anasarca with scrotal edema present. Heart hugger is in place. Knee-high MERLYN hose and sequential compression devices in place to his bilateral lower extremities. Norepinephrine drip at 7 mcg/m. - Gastrointestinal Gastrointestinal Comment(s): Abdomen is soft, nontender and nondistended. Active bowel sounds all 4 abdominal quadrants. Right nare Dobbhoff tube in place with vital AF tube feedings infusing at goal rate of 70 mL per hour with automatic H2O flushes. Fecal management system in place with greenish color diarrhea. - Genitourinary Genitourinary Comment(s): Fong catheter for accurate I&O. Draining concentrated marta urine. Marginal urine output, 90 mL output in the last 8 hours. - Integumentary Integumentary Comment(s): Skin is warm and dry. No clubbing or cyanosis present. Midline sternal incision clean and dry and approximated. No drainage or redness present. Left lower extremity EVH site clean dry and approximated. Stage II pressure ulcer to his coccyx, covered by Opticell foam dressing - Neurologic Neurologic Comment(s): Currently sedated on propofol drip at 30 mcg/kg/m. He remains on mechanical ventilator support. Does not follow any verbal commands at this time. - Musculoskeletal Musculoskeletal: Present: generalized weakness - Allied health notes Allied health notes reviewed: nursing - Labs CBC & Chem 7: 12/09/17 05:20 12/09/17 05:20 Labs: Abnormal Lab Results - Last 24 Hours (Table) 12/08/17 12/08/17 12/08/17 Range/Units 10:33 12:21 16:06 RBC (4.30-5.90) m/uL Hgb (13.0-17.5) gm/dL Hct (39.0-53.0) % RDW (11.5-15.5) % Plt Count (150-450) k/uL Neutrophils # (1.3-7.7) k/uL Lymphocytes # (1.0-4.8) k/uL ABG pH (7.35-7.45) ABG pO2 (83-108) mmHg ABG HCO3 (21-25) mmol/L ABG O2 Saturation (94-97) % Sodium (137-145) mmol/L Potassium (3.5-5.1) mmol/L Carbon Dioxide (22-30) mmol/L BUN (9-20) mg/dL Creatinine (0.66-1.25) mg/dL Glucose (74-99) mg/dL POC Glucose (mg/dL) 184 H 157 H 174 H (75-99) mg/dL Calcium (8.4-10.2) mg/dL Phosphorus (2.5-4.5) mg/dL Total Bilirubin (0.2-1.3) mg/dL AST (17-59) U/L ALT (21-72) U/L Alkaline Phosphatase (38-126) U/L Total Protein (6.3-8.2) g/dL Albumin (3.5-5.0) g/dL 12/08/17 12/08/17 12/08/17 Range/Units 18:36 20:24 20:28 RBC (4.30-5.90) m/uL Hgb (13.0-17.5) gm/dL Hct (39.0-53.0) % RDW (11.5-15.5) % Plt Count (150-450) k/uL Neutrophils # (1.3-7.7) k/uL Lymphocytes # (1.0-4.8) k/uL ABG pH (7.35-7.45) ABG pO2 (83-108) mmHg ABG HCO3 (21-25) mmol/L ABG O2 Saturation (94-97) % Sodium (137-145) mmol/L Potassium (3.5-5.1) mmol/L Carbon Dioxide (22-30) mmol/L BUN (9-20) mg/dL Creatinine (0.66-1.25) mg/dL Glucose (74-99) mg/dL POC Glucose (mg/dL) 174 H 180 H 167 H (75-99) mg/dL Calcium (8.4-10.2) mg/dL Phosphorus (2.5-4.5) mg/dL Total Bilirubin (0.2-1.3) mg/dL AST (17-59) U/L ALT (21-72) U/L Alkaline Phosphatase (38-126) U/L Total Protein (6.3-8.2) g/dL Albumin (3.5-5.0) g/dL 12/08/17 12/09/17 12/09/17 Range/Units 22:22 00:02 02:31 RBC (4.30-5.90) m/uL Hgb (13.0-17.5) gm/dL Hct (39.0-53.0) % RDW (11.5-15.5) % Plt Count (150-450) k/uL Neutrophils # (1.3-7.7) k/uL Lymphocytes # (1.0-4.8) k/uL ABG pH (7.35-7.45) ABG pO2 (83-108) mmHg ABG HCO3 (21-25) mmol/L ABG O2 Saturation (94-97) % Sodium (137-145) mmol/L Potassium (3.5-5.1) mmol/L Carbon Dioxide (22-30) mmol/L BUN (9-20) mg/dL Creatinine (0.66-1.25) mg/dL Glucose (74-99) mg/dL POC Glucose (mg/dL) 186 H 186 H 176 H (75-99) mg/dL Calcium (8.4-10.2) mg/dL Phosphorus (2.5-4.5) mg/dL Total Bilirubin (0.2-1.3) mg/dL AST (17-59) U/L ALT (21-72) U/L Alkaline Phosphatase (38-126) U/L Total Protein (6.3-8.2) g/dL Albumin (3.5-5.0) g/dL 12/09/17 12/09/17 12/09/17 Range/Units 04:11 05:15 05:20 RBC 2.45 L (4.30-5.90) m/uL Hgb 7.3 L (13.0-17.5) gm/dL Hct 22.8 L (39.0-53.0) % RDW 18.1 H (11.5-15.5) % Plt Count 89 L (150-450) k/uL Neutrophils # 8.7 H (1.3-7.7) k/uL Lymphocytes # 0.3 L (1.0-4.8) k/uL ABG pH 7.34 L (7.35-7.45) ABG pO2 294 H (83-108) mmHg ABG HCO3 19 L (21-25) mmol/L ABG O2 Saturation 100.0 H (94-97) % Sodium (137-145) mmol/L Potassium (3.5-5.1) mmol/L Carbon Dioxide (22-30) mmol/L BUN (9-20) mg/dL Creatinine (0.66-1.25) mg/dL Glucose (74-99) mg/dL POC Glucose (mg/dL) 169 H (75-99) mg/dL Calcium (8.4-10.2) mg/dL Phosphorus (2.5-4.5) mg/dL Total Bilirubin (0.2-1.3) mg/dL AST (17-59) U/L ALT (21-72) U/L Alkaline Phosphatase (38-126) U/L Total Protein (6.3-8.2) g/dL Albumin (3.5-5.0) g/dL 12/09/17 12/09/17 12/09/17 Range/Units 05:20 06:12 08:29 RBC (4.30-5.90) m/uL Hgb (13.0-17.5) gm/dL Hct (39.0-53.0) % RDW (11.5-15.5) % Plt Count (150-450) k/uL Neutrophils # (1.3-7.7) k/uL Lymphocytes # (1.0-4.8) k/uL ABG pH (7.35-7.45) ABG pO2 (83-108) mmHg ABG HCO3 (21-25) mmol/L ABG O2 Saturation (94-97) % Sodium 133 L (137-145) mmol/L Potassium 5.2 H (3.5-5.1) mmol/L Carbon Dioxide 18 L (22-30) mmol/L BUN 137 H* (9-20) mg/dL Creatinine 2.50 H (0.66-1.25) mg/dL Glucose 153 H (74-99) mg/dL POC Glucose (mg/dL) 170 H 150 H (75-99) mg/dL Calcium 6.5 L* (8.4-10.2) mg/dL Phosphorus 6.5 H (2.5-4.5) mg/dL Total Bilirubin 1.8 H (0.2-1.3) mg/dL AST 251 H (17-59) U/L ALT 184 H (21-72) U/L Alkaline Phosphatase 499 H (38-126) U/L Total Protein 5.1 L (6.3-8.2) g/dL Albumin 1.7 L (3.5-5.0) g/dL Microbiology - Last 24 Hours (Table) 12/07/17 11:20 Urine Culture - Final Urine,Catheterized 12/07/17 10:35 Blood Culture Gram Stain - Preliminary Blood Blood Culture - Preliminary Gram Neg Bacilli 12/07/17 11:47 Gram Stain - Preliminary Sputum Sputum Culture - Preliminary Gram Neg Bacilli Assessment and Plan (1) DVT prophylaxis Current Visit: Yes Status: Acute Code(s): HPR6104 - SNOMED Code(s): 759801410 (2) Ischemic cardiomyopathy Current Visit: Yes Status: Acute Code(s): I25.5 - ISCHEMIC CARDIOMYOPATHY SNOMED Code(s): 203397757 (3) Coronary artery disease Current Visit: Yes Status: Chronic Code(s): I25.10 - ATHSCL HEART DISEASE OF [place] CORONARY ARTERY W/O ANG PCTRS SNOMED Code(s): 25712604 (4) Diabetes mellitus Current Visit: Yes Status: Chronic Code(s): E11.9 - TYPE 2 DIABETES MELLITUS WITHOUT COMPLICATIONS SNOMED Code(s): 40816249 (5) Hyperlipidemia Current Visit: Yes Status: Chronic Code(s): E78.5 - HYPERLIPIDEMIA, UNSPECIFIED SNOMED Code(s): 05741245 (6) Mitral regurgitation Current Visit: Yes Status: Chronic Code(s): I34.0 - NONRHEUMATIC MITRAL ( VALVE) INSUFFICIENCY SNOMED Code(s): 35208731 (7) Congestive heart failure with cardiomyopathy and cardiomegaly Current Visit: Yes Status: Acute Code(s): I50.9 - HEART FAILURE, UNSPECIFIED ; I42.9 - CARDIOMYOPATHY, UNSPECIFIED; I51.7 - CARDIOMEGALY SNOMED Code(s): 655642092685717 (8) S/P CABG x 4 Current Visit: Yes Status: Acute Code(s): Z95.1 - PRESENCE OF AORTOCORONARY BYPASS GRAFT SNOMED Code(s): 835570169 (9) S/P mitral valve repair Current Visit: Yes Status: Acute Code(s): Z98.890 - OTHER SPECIFIED POSTPROCEDURAL STATES SNOMED Code(s): 718453171 (10) Gram-negative pneumonia Current Visit: Yes Status: Acute Code(s): J15.6 - PNEUMONIA DUE TO OTHER GRAM-NEGATIVE BACTERIA SNOMED Code(s): 808372043 Plan: 1. All Medications, hemodynamic supportive drips,Tube feedings, labs and x- rays will be discontinued today per the patient and his families request. 2. He will be extubated and mechanical ventilator support will be discontinued. He will be placed on comfort care measures. 3. Continue FMS for liquid stools. 4. Comfort care measures will be initiated per protocol orders when the patients family wishes to proceed. 5. A consult has been placed for hospice care and hospice care will be initiated. Time with Patient: Greater than 30
[2017-12-09 14:37] LABS: Glucose,Whole Blood 66 mg/dL (75-99)
[2017-12-09 14:37] LABS: Glucose,Whole Blood 66 mg/dL (75-99)
[2017-12-09] MEDS ORDERED: DEXTROSE 50%-WATER 50 ML SYRINGE IVP STA (15:12)
[2017-12-09 15:17] LABS: Glucose,Whole Blood 87 mg/dL (75-99)
[2017-12-09 16:23] LABS: Glucose,Whole Blood 72 mg/dL (75-99)
[2017-12-09 16:30] VITALS: BP 121/50
[2017-12-09 17:10] LABS: Glucose,Whole Blood 79 mg/dL (75-99)
[2017-12-09] MEDS ORDERED: MORPHINE SULFATE 4 MG/ML SYRINGE ONE (18:30)
[2017-12-09] MEDS ORDERED: LORazepam 2 MG/ML INJ ONE (18:31)
[2017-12-09] MEDS ORDERED: LORazepam 2 MG/ML INJ IV PRN (18:54)
[2017-12-09] MEDS ORDERED: MORPHINE SULFATE 2 MG/ML SYRINGE IV PRN (18:54)
[2017-12-09 19:08] VITALS: PULSE 81; RESP 24
== END 2017-12-09 21:05 | disposition expired | DRG 219 ==
LOC: 2ORMAIN 07:31 → 6ICU 09:33
PROVIDERS: ADMIT Internal Medicine Cardiovascular Disease; ATTEND Surgery
PROC: 5A02210 Assistance with Cardiac Output using Balloon Pump, Continuous (ICD-10-PCS; principal; 2017-11-16 08:50)
PROC: 02100Z9 Bypass Coronary Artery, One Artery from Left Internal Mammary, Open Approach (ICD-10-PCS; 2017-11-17)
PROC: 02UG0JZ Supplement Mitral Valve with Synthetic Substitute, Open Approach (ICD-10-PCS; 2017-11-17)
PROC: 5A1221Z Performance of Cardiac Output, Continuous (ICD-10-PCS; 2017-11-17)
PROC: 06BQ4ZZ Excision of Left Saphenous Vein, Percutaneous Endoscopic Approach (ICD-10-PCS; 2017-11-17)
PROC: 4A0305C Measurement of Arterial Flow, Coronary, Open Approach (ICD-10-PCS; 2017-11-17)
PROC: 021109W Bypass Coronary Artery, Two Arteries from Aorta with Autologous Venous Tissue, Open Approach (ICD-10-PCS; 2017-11-17)
PROC: 02L70CK Occlusion of Left Atrial Appendage with Extraluminal Device, Open Approach (ICD-10-PCS; 2017-11-17)
PROC: 30233N1 Transfusion of Nonautologous Red Blood Cells into Peripheral Vein, Percutaneous Approach (ICD-10-PCS; 2017-11-17)
PROC: 30233K1 Transfusion of Nonautologous Frozen Plasma into Peripheral Vein, Percutaneous Approach (ICD-10-PCS; 2017-11-17)
PROC: 30233R1 Transfusion of Nonautologous Platelets into Peripheral Vein, Percutaneous Approach (ICD-10-PCS; 2017-11-17)
PROC: 02H633Z Insertion of Infusion Device into Right Atrium, Percutaneous Approach (ICD-10-PCS; 2017-11-22)
PROC: 02HV33Z Insertion of Infusion Device into Superior Vena Cava, Percutaneous Approach (ICD-10-PCS; 2017-11-24)
PROC: 0BH18EZ Insertion of Endotracheal Airway into Trachea, Via Natural or Artificial Opening Endoscopic (ICD-10-PCS; 2017-12-02)
PROC: 5A1955Z Respiratory Ventilation, Greater than 96 Consecutive Hours (ICD-10-PCS; 2017-12-02)
PROC: 0DH67UZ Insertion of Feeding Device into Stomach, Via Natural or Artificial Opening (ICD-10-PCS; 2017-12-03)
PROC: 0DJ08ZZ Inspection of Upper Intestinal Tract, Via Natural or Artificial Opening Endoscopic (ICD-10-PCS; 2017-12-03)
DX: I25.10 Atherosclerotic heart disease of native coronary artery without angina pectoris (principal); K72.00 Acute and subacute hepatic failure without coma; E43 Unspecified severe protein-calorie malnutrition; G93.40 Encephalopathy, unspecified; I50.43 Acute on chronic combined systolic (congestive) and diastolic (congestive) heart failure; J15.6 Pneumonia due to other Gram-negative bacteria; J96.01 Acute respiratory failure with hypoxia; N17.0 Acute kidney failure with tubular necrosis; T81.11XA Postprocedural cardiogenic shock, initial encounter; A41.9 Sepsis, unspecified organism; D68.4 Acquired coagulation factor deficiency; E87.0 Hyperosmolality and hypernatremia; E87.1 Hypo-osmolality and hyponatremia; E87.4 Mixed disorder of acid-base balance; I13.0 Hypertensive heart and chronic kidney disease with heart failure and stage 1 through stage 4 chronic kidney disease, or unspecified chronic kidney disease; I48.92 Unspecified atrial flutter; J98.11 Atelectasis; K55.9 Vascular disorder of intestine, unspecified; Z99.11 Dependence on respirator [ventilator] status; D64.9 Anemia, unspecified; D69.59 Other secondary thrombocytopenia; E11.22 Type 2 diabetes mellitus with diabetic chronic kidney disease; E11.319 Type 2 diabetes mellitus with unspecified diabetic retinopathy without macular edema; E11.65 Type 2 diabetes mellitus with hyperglycemia; E78.5 Hyperlipidemia, unspecified; E83.51 Hypocalcemia; E86.1 Hypovolemia; E87.5 Hyperkalemia; F17.201 Nicotine dependence, unspecified, in remission; F32.9 Major depressive disorder, single episode, unspecified; H54.62 Unqualified visual loss, left eye, normal vision right eye; I08.1 Rheumatic disorders of both mitral and tricuspid valves; I25.2 Old myocardial infarction; I25.5 Ischemic cardiomyopathy; I25.82 Chronic total occlusion of coronary artery; I27.20 Pulmonary hypertension, unspecified; I48.2 Chronic atrial fibrillation; I49.3 Ventricular premature depolarization; I95.81 Postprocedural hypotension; K59.00 Constipation, unspecified; L89.152 Pressure ulcer of sacral region, stage 2; R13.10 Dysphagia, unspecified; R62.7 Adult failure to thrive; T50.2X5A Adverse effect of carbonic-anhydrase inhibitors, benzothiadiazides and other diuretics, initial encounter; Z51.5 Encounter for palliative care; Z79.02 Long term (current) use of antithrombotics/antiplatelets; Z79.84 Long term (current) use of oral hypoglycemic drugs; Z79.899 Other long term (current) drug therapy; Z82.49 Family history of ischemic heart disease and other diseases of the circulatory system; Z95.1 Presence of aortocoronary bypass graft; Z95.2 Presence of prosthetic heart valve; Z88.1 Allergy status to other antibiotic agents; N18.3 Chronic kidney disease, stage 3 (moderate); N99.0 Postprocedural (acute) (chronic) kidney failure
CPT/HCPCS: 33967; 36569; 43235; 43246; 71045; 74018; 76937; 80048; 80051; 80053; 80061; 80162; 80202; 81001; 82140; 82272; 82330; 82533; 82553; 82728; 82805; 83036; 83540; 83550; 83605; 83735; 84100; 84132; 84134; 84145; 84295; 84300; 84443; 85025; 85027; 85384; 85520; 85610; 85730; 86022; 86850; 86891; 86900; 86901; 86920; 87040; 87045; 87046; 87070; 87077; 87086; 87186; 87205; 87324; 87328; 87329; 93306; 94002; 94003; 94640; 94660